=== PATIENT | female | born 1960 | race Caucasian/White ===

== ENCOUNTER 2018-04-25 21:10 | Inpatient (IN) | payer OTHER ==
[2018-04-25 22:10] LABS: Urine Blood 2+ (NEG); Urine Glucose NEGATIVE (NEG); Urine Protein 3+ (NEG); Urine Specific Gravity >1.030 (1.005-1.030); Urine pH 5.5 (5.0-7.0)
[2018-04-25 22:23] LABS: Arterial Blood Carboxyhemoglob 1.5 % (0-1.5); Blood Gas Oxyhemoglobin 91.4 % (94-97); Blood O2 Saturation 94.2 % (92-98.5)
[2018-04-25 22:23] LABS: Absolute Lymphocytes (CBC) 0.6 K/uL (0.7-4.9); Absolute Monocytes 0.8 K/uL (0.1-1.3); Absolute Neutrophil 9.4 K/uL (1.8-8.0); Basophils % 0.4 % (0-1.3); Hematocrit 48.3 % (36.0-45.0); Lymphocytes % 5.9 % (15.3-44.8); MCH 35.9 pg (27.0-35.0); MCV 108.5 fL (80-100); MPV 7.4 fL (7.6-11.3); Monocytes % 7.6 % (3.3-12.3); RBC Red Blood Cell Count 4.45 M/uL (3.86-4.86)
[2018-04-25] MEDS ORDERED: VANCOMYCIN 1 GM/VIAL ONE (22:24)
[2018-04-25] MEDS ORDERED: NA CHLORIDE 0.9% 250 ML ONE (22:24)
[2018-04-25] MEDS ORDERED: NA CHLORIDE 0.9% 2,000 ML ONE (22:24)
[2018-04-25 22:40] LABS: Protime INR 0.99
[2018-04-25 23:20] LABS: ALT/SGPT 280 U/L (12-78); Albumin 4.7 g/dL (3.4-5.0); Alkaline Phosphatase 155 U/L (45-117); BUN Blood Urea Nitrogen 13 mg/dL (7-18); Bilirubin Direct 1.3 mg/dL (0-0.2); Bilirubin Total 1.8 mg/dL (0.2-1.0); CKMB Creatine Kinase MB 2.5 ng/mL (0.3-3.6); Creatine Phosphokinase 46 U/L (26-192); Glucose Level 94 mg/dL (74-106); Lipase 29033 U/L (73-393); Potassium 3.4 mmol/L (3.5-5.1); Protein, Total 9.8 g/dL (6.4-8.2); Sodium Level 133 mmol/L (136-145); Troponin (Emerg Dept Use Only) < 0.02 ng/mL (0.0-0.045)
[2018-04-25 23:24] LABS: AST/SGOT 574 U/L (15-37); Bicarbonate 7 mmol/L (21-32)
[2018-04-25 23:35] LABS: Blood Morphology Comment NOTED (NOT SEEN); Macrocytosis 1+; Platelet Estimate ADEQ; Urine White Blood Cell Casts OK
[2018-04-25 23:54] LABS: Amylase Level 1699 U/L (25-115)
[2018-04-26] MEDS ORDERED: NOREPINEPHRINE 4mg/D5W 250mL 4 MG/250 ML BAG IV ONE (00:45)
[2018-04-26] MEDS ORDERED: NA CHLORIDE 0.9% 1,000 ML ONE (00:52)
[2018-04-26] MEDS ORDERED: METRONIDAZOLE 500mg IVPB 500 MG/100 ML BAG IV ONE (00:52)
--- NOTE | 2018-04-26 01:16 | ER ---
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 pt 99% on room air for ak1 EMS. EMS states pt with multiple abd sx and abd hernias. Transition of care: patient was not received from another setting of care. Onset of symptoms was April 24, 2018. Risk Assessment: Do you want to hurt yourself or someone else? Patient reports no desire to harm self or others. Care prior to arrival: None. 21:15 Method Of Arrival: EMS: [facility] ak1 21:15 Acuity: DEV 3 ak1 21:34 Initial Sepsis Screen: Does the patient meet any 2 criteria? HR > 90 bpm. Does the tl2 patient have a suspected source of infection? No. Patient's initial sepsis screen is negative. 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 - Social history:: Smoking status: Patient uses tobacco products, smokes one-half pack cigarettes per day. - Ebola Screening: : No symptoms or risks identified at this time. Screenin:30 Abuse screen: Denies threats or abuse. Nutritional screening: No deficits noted. tl2 Tuberculosis screening: No symptoms or risk factors identified. Fall Risk Gait- Weak (10 pts.). Assessment: 21:30 General: Appears uncomfortable, Behavior is drowsy, listless. Pain: Complains of pain tl2 in abdomen Pain does not radiate. Neuro: Level of Consciousness is awake, obeys commands, listless, Oriented to person, place, time, situation. Cardiovascular: Denies chest pain. Respiratory: Airway is patent Respiratory effort is even, labored, Respiratory pattern is symmetrical. GI: Abdomen is distended, Abd is soft Reports nausea, vomiting, Patient currently denies diarrhea. : No signs and/or symptoms were reported regarding the genitourinary system. Derm: Skin is clammy, Skin is normal. 22:32 Reassessment: Charge nurse at bedside to attempt another IV. first IV infiltrated. tl2 23:29 Reassessment: Fluids and Vanc infusing, family at bedside. Pt sitting up in bed. No tl2 questions or concerns at this time. 04/26 00:01 Reassessment: MD notified of abnormal labs. Pt out to CT. tl2 00:25 Reassessment: Received patient from MAUREEN Penn as a case of low blood pressure, bp abdominal and pelvic pain, acute pancreatitis and acidosis. With intravenous cannula gauge 22 at the right hand with ongoing boluses of NS and vancomycin 1.5 grams. Another intravenous cannula at the left ACV saline locked and swollen after patient came back from CT scan department as endorsed. Patient weak looking. 00:40 Reassessment: Central line 3 lumen catheter inserted aseptically at the right femoral cc3 by Dr. Jacinto. 01:00 Reassessment: Indwelling foey's catheter spanish 16 inserted aseptically with very cc3 scanty dark yellow urine output noted. 02:35 Reassessment: Patient and/or family updated on plan of care and expected duration. Pain lp1 level reassessed. Patient is alert, oriented x 3, equal unlabored respirations, skin warm/dry/pink. Patient for admission to ICU room 6, handed over the report to MAUREEN Goodman for continuity of care and management. Vital Signs: 04/25 21:19 BP 137 / 87; Pulse 123; Resp 22; Temp 98.9(O); Pulse Ox 97% on R/A; Weight 90.72 kg ak1 (R); Height 5 ft. 3 in. (160.02 cm) (R); Pain 9/10; 22:32 BP 122 / 91; Pulse 117; Resp 28; Pulse Ox 95% on R/A; tl2 23:28 BP 117 / 98; Pulse 117; Resp 26; Pulse Ox 96% on 2 lpm NC; tl2 04/26 00:02 BP 134 / 62; Pulse 111; Resp 30; Pulse Ox 99% on 2 lpm NC; tl2 00:45 BP 91 / 37; Pulse 112; Resp 27; Pulse Ox 96% on 2 lpm NC; cc3 01:00 BP 97 / 50; Pulse 110; Resp 26; Pulse Ox 96% on 2 lpm NC; cc3 01:45 BP 100 / 65; Pulse 111; Resp 24; Pulse Ox 95% on 2 lpm NC; cc3 02:10 BP 126 / 85; Pulse 114; Resp 24; Temp 99.8; Pulse Ox 96% on 2 lpm NC; cc3 02:30 BP 119 / 66; Pulse 116; Resp 24; Temp 99.8; Pulse Ox 95% on 2 lpm NC; lp1 04/25 21:19 Body Mass Index 35.43 (90.72 kg, 160.02 cm) ak1 Vitals: 04/25 21:30 Cardiac Rhythm Assessment Sinus tach. tl2 ED Course: 21:15 Patient arrived in ED. ak1 21:17 Triage completed. ak1 21:18 Ferdinand Jacinto MD is Attending Physician. kdr 21:19 Arm band placed on Patient placed in an exam room, on a stretcher, on pulse oximetry, ak1 Patient notified of wait time. 21:20 Patient has correct armband on for positive identification. Bed in low position. Call ak1 light in reach. Side rails up X 1. Pulse ox on. NIBP on. 22:12 Inserted saline lock: 20 gauge in right antecubital area, using aseptic technique. bb Blood collected. 22:13 Initial lab(s) drawn, by me, sent to lab. First set of blood cultures drawn by me. bb 22:14 Isamar Pacheco RN is Primary Nurse. tl2 22:33 IV discontinued, IV infiltrated. tl2 22:38 Radiology exam delayed due to IV insertion attempt and/or patient not having bb2 appropriate IV at this time. 22:40 Inserted saline lock: 20 gauge in left antecubital area, using aseptic technique. tl2 placed by MAUREEN Chandler. Inserted saline lock: 22 gauge in left hand, using aseptic technique. 23:24 Notified ED physician of a critical lab result(s). lactate 5.4, CO2 7, AST 574 Dr ania Jacinto notified. 23:44 X-ray completed. Portable x-ray completed in exam room. Patient tolerated procedure kw well. 23:45 Chest Single View XRAY In Process Unspecified. EDMS 23:54 Notified ED physician of a critical lab result(s). Amylase 1699. lp1 04/26 00:22 CT completed. Pt tolerated procedure poorly. Patient moved to CT via stretcher. Patient eh moved back from CT. 00:22 Note: LEFT AC 20G IV INFILTRATED. Note: PLACED HOT COMPRESS AROUND ARM. Notified ED eh Physician INFORMED DR JACINTO. 00:26 Abdomen In Process Unspecified. EDMS 01:00 Assisted provider with central line placement. Set up central line tray. Triple lumen bp line placed in right femoral. Line placed by Ferdinand Jacinto MD Dressed with Tegaderm, Patient tolerated well. Before procedure, did Practitioner(s) obtain informed consent? No. Patient \T\ family education about procedure, CLABSI prevention and S/S of infection? Yes. Time-out/Briefing performed prior to start of procedure? Yes. Was handwashing/sanitizing done immediately prior to procedure? Yes. Was patient positioned to in a way to prevent air embolism? Yes. Was procedure site sterilized? Yes, with chlorhexidine. Was the site allowed to dry? Yes. Was local anesthetic and/or sedation utilized? Yes. During the procedure, did the Practitioner(s) maintain a sterile field? Yes. Were unused ports clamped during insertion? Yes. Was a 2nd qualified MD obtained after 3 unsuccessful insertion attempts? N/A. Was blood aspirated from each lumen? Yes. After the procedure, did the Practitioner(s) clean the site and apply a sterile dressing? Yes. 01:15 Genesis Browning MD is Hospitalizing Provider. kdr 01:15 Paulson cath inserted, using sterile technique, 16 Fr., by ED staff, balloon inflated, to bp gravity drainage, urine specimen collected. returned riri urine. Patient tolerated well. Administered Medications: 04/25 22:16 Drug: vancoMYCIN 1.5 grams Route: IVPB; Rate: calculated rate; Site: right antecubital; tl2 23:30 Follow up: IV Status: Completed infusion; IV Intake: 250ml bp 22:46 Drug: NS 0.9% (30 ml/kg) 30 ml/kg Route: IV; Rate: bolus; Site: left antecubital; tl2 04/26 00:45 Drug: NS 0.9% 1000 ml Route: IV; Rate: 150 ml/hr; Site: Other; bp 02:53 Follow up: IV Status: Infusion continued upon admission bp 01:00 Drug: Flagyl 500 mg Volume: 100 ml; Route: IVPB; Rate: 200 ml/hr; Infused Over: 30 bb mins; Site: right femoral; 02:04 Follow up: IV Status: Completed infusion; IV Intake: 100ml bp 01:15 Drug: Zofran 4 mg Route: IVP; Site: right femoral; bb 02:04 Follow up: Response: No adverse reaction bp 01:30 Drug: Levophed (4 mg/250 mL D5W 4 mcg/min Route: IV; Rate: calculated rate; Site: Other;bp 02:52 Follow up: IV Status: Infusion continued upon admission bp 01:36 Drug: Dexamethasone 10 mg Route: IVP; Site: Other; bp 02:03 Follow up: Response: No adverse reaction bp 02:00 Drug: Sodium Bicarbonate 1 amp Route: IVP; Site: Other; bp 02:06 Follow up: Response: No adverse reaction bp Point of Care Testing: Blood Glucose: 04/25 22:14 Blood Glucose: 81 mg/dL; tl2 Ranges: Intake: 23:30 IV: 250ml; Total: 250ml. bp 14 02:04 IV: 100ml; Total: 350ml. bp Outcome: 01:15 Decision to Hospitalize by Provider. kdr 02:35 Admitted to ICU accompanied by nurse, family with patient, via stretcher, room 6, with lp1 oxygen, on monitor, with chart, Report called to MAUREEN Goodman 02:35 Condition: stable 02:35 Instructed on the need for admit. 03:24 Patient left the ED. lp1 Signatures: Dispatcher [employer] EDMS Ferdinand Jacinto MD MD kdr Hagler, Ervin eh Ballard, Brenda, RN RN bb Luann Shelton Laura, RN RN lp1 Riri Hernandez RN RN ak1 Isamar Pacheco RN RN tl2 French Amor RN Luana Hardy bb2 Demetria Diaz cc3 Corrections: (The following items were deleted from the chart) 02:53 02:51 Reassessment: Patient and/or family updated on plan of care and expected lp1 duration. Pain level reassessed. Patient is alert, oriented x 3, equal unlabored respirations, skin warm/dry/pink. Patient for admission to ICU room 6, handed over the report to MAUREEN Goodman for continuity of care and management. lp1
--- NOTE | 2018-04-26 01:17 | EDPHYS ---
Physician Documentation [facility] Name: Madelaine Leonard Age: 57 yrs Sex: Female : 1960 Arrival Date: 04/25/2018 Time: 21:15 Bed 3 Private MD: ED Physician Ferdinand Valladares HPI: 04/25 22:11 This 57 yrs old Female presents to ER via EMS with complaints of kdr Nausea/Vomiting, Shortness Of Breath. 22:11 The patient presents to the emergency department with nausea, that is mild, vomiting, kdr that is intermittent, abdominal pain, of the abdomen diffusely, described as achy, crampy, steady, vague,\E\. Onset: The symptoms/episode began/occurred gradually, 2 day(s) ago. Possible causes: unknown, flare up of bowel problem. The symptoms are aggravated by movement, pressure, The symptoms are alleviated by nothing. Associated signs and symptoms: Pertinent positives: abdominal pain, nausea, vomiting, Pertinent negatives: diarrhea, dysuria, fever, flatulence, GI bleeding, hematuria, vaginal discharge. Severity of symptoms: At their worst the symptoms were moderate severe just prior to arrival, in the emergency department the symptoms are unchanged. The patient has not experienced similar symptoms in the past. The patient has not recently seen a physician. 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 - Social history:: Smoking status: Patient uses tobacco products, smokes one-half pack cigarettes per day. - Ebola Screening: : No symptoms or risks identified at this time. ROS: 22:11 Constitutional: Negative for fever, chills, and weight loss, Eyes: Negative for injury, kdr pain, redness, and discharge, Neck: Negative for injury, pain, and swelling, Cardiovascular: Negative for chest pain, palpitations, and edema, Back: Negative for injury and pain, : Negative for injury, bleeding, discharge, and swelling, MS/Extremity: Negative for injury and deformity, Skin: Negative for injury, rash, and discoloration, Neuro: Negative for headache, weakness, numbness, tingling, and seizure activity. Psych: Negative for depression, anxiety, suicide ideation, homicidal ideation, and hallucinations, Allergy/Immunology: Negative for hives, rash, and allergies, Endocrine: Negative for neck swelling, polydipsia, polyuria, polyphagia, and marked weight changes, Hematologic/Lymphatic: Negative for swollen nodes, abnormal bleeding, and unusual bruising. 22:11 Respiratory: Positive for dyspnea on exertion, shortness of breath, Negative for cough, hemoptysis, orthopnea, sputum production, wheezing. 22:11 Abdomen/GI: Positive for nausea and vomiting, nausea, abdominal cramps, abdominal distension, Negative for dysphagia, hematemesis, black/tarry stool, rectal pain, rectal bleeding, flatulence. Exam: 22:11 Constitutional: This is a well developed, well nourished patient who is awake, alert, kdr and in mild to moderate distress. Head/Face: Normocephalic, atraumatic. Eyes: Pupils equal round and reactive to light, extra-ocular motions intact. Lids and lashes normal. Conjunctiva and sclera are non-icteric and not injected. Cornea within normal limits. Periorbital areas with no swelling, redness, or edema. Neck: Trachea midline, no thyromegaly or masses palpated, and no cervical lymphadenopathy. Supple, full range of motion without nuchal rigidity, or vertebral point tenderness. No Meningismus. Chest/axilla: Normal chest wall appearance and motion. Nontender with no deformity. No lesions are appreciated. Cardiovascular: Regular rate and rhythm with a normal S1 and S2. No gallops, murmurs, or rubs. Normal PMI, no JVD. No pulse deficits. Respiratory: Lungs have equal breath sounds bilaterally, clear to auscultation and percussion. No rales, rhonchi or wheezes noted. No increased work of breathing, no retractions or nasal flaring. Back: No spinal tenderness. No costovertebral tenderness. Full range of motion. Skin: Warm, dry with normal turgor. Normal color with no rashes, no lesions, and no evidence of cellulitis. MS/ Extremity: Pulses equal, no cyanosis. Neurovascular intact. Full, normal range of motion. Neuro: Awake somnolent GCS 15, oriented to person, place, time, and situation. Cranial nerves II-XII grossly intact. Motor strength 5/5 in all extremities. Sensory grossly intact. Psych: Awake, alert, with orientation to person, place and time. Behavior, mood, and affect are within normal limits. 22:11 Abdomen/GI: Inspection: distension, obese scar(s), are noted in the umbilical area, Bowel sounds: diminished, absent, in all quadrants, Palpation: moderate abdominal tenderness, in all quadrants, voluntary guarding, is elicited in all quadrants. Vital Signs: 21:19 BP 137 / 87; Pulse 123; Resp 22; Temp 98.9(O); Pulse Ox 97% on R/A; Weight 90.72 kg ak1 (R); Height 5 ft. 3 in. (160.02 cm) (R); Pain 9/10; 22:32 BP 122 / 91; Pulse 117; Resp 28; Pulse Ox 95% on R/A; tl2 23:28 BP 117 / 98; Pulse 117; Resp 26; Pulse Ox 96% on 2 lpm NC; tl2 0914 00:02 BP 134 / 62; Pulse 111; Resp 30; Pulse Ox 99% on 2 lpm NC; tl2 00:45 BP 91 / 37; Pulse 112; Resp 27; Pulse Ox 96% on 2 lpm NC; cc3 01:00 BP 97 / 50; Pulse 110; Resp 26; Pulse Ox 96% on 2 lpm NC; cc3 01:45 BP 100 / 65; Pulse 111; Resp 24; Pulse Ox 95% on 2 lpm NC; cc3 02:10 BP 126 / 85; Pulse 114; Resp 24; Temp 99.8; Pulse Ox 96% on 2 lpm NC; cc3 02:30 BP 119 / 66; Pulse 116; Resp 24; Temp 99.8; Pulse Ox 95% on 2 lpm NC; lp1 04/25 21:19 Body Mass Index 35.43 (90.72 kg, 160.02 cm) ak1 MDM: 01:15 Patient medically screened. kdr 01:16 Data reviewed: vital signs, nurses notes, lab test result(s). Counseling: I had a kdr detailed discussion with the patient and/or guardian regarding: the historical points, exam findings, and any diagnostic results supporting the discharge/admit diagnosis, lab results, radiology results, the need for further work-up and treatment in the hospital. 04/25 21:39 Order name: Amylase, Serum; Complete Time: 00:22 [facility] 04/25 21:39 Order name: Basic Metabolic Panel; Complete Time: 00:22 [facility] 04/25 21:39 Order name: Blood Culture Adult (2) [facility] 04/25 21:39 Order name: C-Reactive Protein; Complete Time: 00:22 [facility] 04/25 21:39 Order name: CBC with Diff; Complete Time: 00:22 [facility] 04/25 21:39 Order name: Ckmb; Complete Time: 00:22 [facility] 04/25 21:39 Order name: CPK; Complete Time: 00:22 [facility] 04/25 21:39 Order name: Lactate; Complete Time: 23:33 [facility] 04/25 21:39 Order name: LFT's; Complete Time: 00:22 [facility] 04/25 21:39 Order name: Lipase; Complete Time: 00:22 [facility] 04/25 21:39 Order name: Procalcitonin; Complete Time: 23:21 [facility] 04/25 21:39 Order name: Protime (+inr); Complete Time: 23:21 [facility] 04/25 21:39 Order name: Ptt, Activated; Complete Time: 23:21 [facility] 04/25 21:39 Order name: Sed Rate; Complete Time: 00:22 [facility] 04/25 21:39 Order name: Troponin (emerg Dept Use Only); Complete Time: 00:22 [facility] 04/25 21:39 Order name: Chest Single View XRAY [facility] 04/25 21:39 Order name: AMMONIA; Complete Time: 22:44 [facility] 04/25 21:39 Order name: ABG; Complete Time: 22:52 [facility] 04/25 21:48 Order name: Urine Dipstick--Ancillary (enter results); Complete Time: 22:11 mw2 04/25 23:35 Order name: CBC Smear Scan; Complete Time: 00:22 EDMS 04/26 00:26 Order name: Abdomen EDMS 04/26 00:54 Order name: Hemoglobin 04/26 00:54 Order name: Hematocrit 04/26 01:07 Order name: ABG [facility] 04/26 01:41 Order name: Lactate Sepsis 2 HR Follow-up EDNY 04/26 02:41 Order name: Glucose, Ancillary Testing EDNY 04/25 21:39 Order name: Accucheck; Complete Time: 22:15 kdr 04/25 21:39 Order name: Cardiac monitoring; Complete Time: 22:15 kdr 04/25 21:39 Order name: EKG - Nurse/Tech; Complete Time: 22:15 kdr 04/25 21:39 Order name: IV Saline Lock - Large Bore; Complete Time: 22:15 kdr 04/25 21:39 Order name: Labs collected and sent; Complete Time: 22:15 kdr 04/25 21:39 Order name: O2 Per Protocol; Complete Time: 22:15 kdr 04/25 21:39 Order name: O2 Sat Monitoring; Complete Time: 22:15 kdr 04/25 21:39 Order name: Urine Dipstick-Ancillary (obtain specimen); Complete Time: 22:15 kdr Administered Medications: 04/25 22:16 Drug: vancoMYCIN 1.5 grams Route: IVPB; Rate: calculated rate; Site: right antecubital; tl2 23:30 Follow up: IV Status: Completed infusion; IV Intake: 250ml bp 22:46 Drug: NS 0.9% (30 ml/kg) 30 ml/kg Route: IV; Rate: bolus; Site: left antecubital; tl2 04/26 00:45 Drug: NS 0.9% 1000 ml Route: IV; Rate: 150 ml/hr; Site: Other; bp 02:53 Follow up: IV Status: Infusion continued upon admission bp 01:00 Drug: Flagyl 500 mg Volume: 100 ml; Route: IVPB; Rate: 200 ml/hr; Infused Over: 30 bb mins; Site: right femoral; 02:04 Follow up: IV Status: Completed infusion; IV Intake: 100ml bp 01:15 Drug: Zofran 4 mg Route: IVP; Site: right femoral; bb 02:04 Follow up: Response: No adverse reaction bp 01:30 Drug: Levophed (4 mg/250 mL D5W 4 mcg/min Route: IV; Rate: calculated rate; Site: Other;bp 02:52 Follow up: IV Status: Infusion continued upon admission bp 01:36 Drug: Dexamethasone 10 mg Route: IVP; Site: Other; bp 02:03 Follow up: Response: No adverse reaction bp 02:00 Drug: Sodium Bicarbonate 1 amp Route: IVP; Site: Other; bp 02:06 Follow up: Response: No adverse reaction bp Point of Care Testing: Blood Glucose: 04/25 22:14 Blood Glucose: 81 mg/dL; tl2 Ranges: Critical Glucose Levels:Adult <50 mg/dl or >400 mg/dl <40 mg/dl or >180 mg/dl Disposition: 04/26/18 01:15 Hospitalization ordered by Genesis Browning for Inpatient Admission. Preliminary diagnosis are Abdominal and pelvic pain, Acute pancreatitis, Acidosis. - Bed requested for Intensive Care Unit. - Status is Inpatient Admission. lp1 - Condition is Serious. - Problem is new. - Symptoms have improved. UTI on Admission? No Critical care time excluding procedures: 04/26 01:16 Critical care time: Bedside Care: 45 minutes, Consultation: 15 minutes. Total time: 60 kdr minutes Signatures: Dispatcher [employer] EDMS Rhianna Leo RN RN Ferdinand Smalls MD MD kdr Ballard, Brenda, RN RN bb Lisa Ortiz RN RN lp1 Riri Hernandez RN RN ak1 Isamar Pacheco, RN RN tl2 French Amor RN RN bp Corrections: (The following items were deleted from the chart) 04/25 22:18 22:11 Constitutional: This is a well developed, well nourished patient who is awake, kdr alert, and in mild to moderate distress. Head/Face: Normocephalic, atraumatic. Eyes: Pupils equal round and reactive to light, extra-ocular motions intact. Lids and lashes normal. Conjunctiva and sclera are non-icteric and not injected. Cornea within normal limits. Periorbital areas with no swelling, redness, or edema. Neck: Trachea midline, no thyromegaly or masses palpated, and no cervical lymphadenopathy. Supple, full range of motion without nuchal rigidity, or vertebral point tenderness. No Meningismus. Chest/axilla: Normal chest wall appearance and motion. Nontender with no deformity. No lesions are appreciated. Cardiovascular: Regular rate and rhythm with a normal S1 and S2. No gallops, murmurs, or rubs. Normal PMI, no JVD. No pulse deficits. Respiratory: Lungs have equal breath sounds bilaterally, clear to auscultation and percussion. No rales, rhonchi or wheezes noted. No increased work of breathing, no retractions or nasal flaring. Back: No spinal tenderness. No costovertebral tenderness. Full range of motion. Skin: Warm, dry with normal turgor. Normal color with no rashes, no lesions, and no evidence of cellulitis. MS/ Extremity: Pulses equal, no cyanosis. Neurovascular intact. Full, normal range of motion. Neuro: Awake and alert, GCS 15, oriented to person, place, time, and situation. Cranial nerves II-XII grossly intact. Motor strength 5/5 in all extremities. Sensory grossly intact. Cerebellar exam normal. Normal gait. Psych: Awake, alert, with orientation to person, place and time. Behavior, mood, and affect are within normal limits. kdr 04/26 00:26 09/ 23:34 Abdomen Pelvis W Con+CT.RAD.BRZ ordered. EDNY EDNY 04/26 01:15 00:55 LACTATE+C.LAB.BRZ ordered. [facility] EDNY 01:21 01:15 Hospitalization Ordered by Genesis Browning MD for Inpatient Admission. Preliminary mw diagnosis is Abdominal and pelvic pain; Acute pancreatitis; Acidosis. Bed requested for Intensive Care Unit. Status is Inpatient Admission. Condition is Serious. Problem is new. Symptoms have improved. UTI on Admission? No. kdr 03:24 01:21 04/26/2018 01:15 Hospitalization Ordered by Genesis Browning MD for Inpatient lp1 Admission. Preliminary diagnosis is Abdominal and pelvic pain; Acute pancreatitis; Acidosis. Bed requested for Intensive Care Unit. Status is Inpatient Admission. Condition is Serious. Problem is new. Symptoms have improved. UTI on Admission? No. mw
[2018-04-26 01:18] LABS: Hematocrit 40.9 % (36.0-45.0)
[2018-04-26] MEDS ORDERED: ONDANSETRON 4 MG/2 ML VIAL ONE (01:19)
[2018-04-26 01:27] LABS: Arterial Blood Carboxyhemoglob 1.4 % (0-1.5); Blood Gas Oxyhemoglobin 92.4 % (94-97)
[2018-04-26] MEDS ORDERED: DEXAMETHASONE 4 MG/ML VIAL ONE (01:36)
[2018-04-26] MEDS ORDERED: ONDANSETRON 4 MG/2 ML VIAL IV PRN (01:53)
[2018-04-26] MEDS: Rifaximin 550 MG Tab PO SCH ×2 (01:57→09:00)
[2018-04-26] MEDS ORDERED: SODIUM BICARB 50 MEQ/50ML VIAL ONE (01:59)
[2018-04-26] MEDS ORDERED: FENTANYL CITR 100 MCG/2 ML IV PRN (02:00)
[2018-04-26] MEDS: ALBUTEROL 2.5 MG/3 ML NEB SOL NEB SCH ×3 (02:00→14:00)
[2018-04-26] MEDS: IPRATROPIUM BROM 0.5MG/2.5ML NEB SCH ×3 (02:00→14:00)
[2018-04-26] MEDS ORDERED: NOREPINEPHRINE 4 MG in D5W 250 ML IV PRN (02:00)
[2018-04-26] MEDS ORDERED: D5W 1,000 ML IV ONE (02:52)
[2018-04-26] MEDS: D5W 1,000 ML with NA BICARB 8.4% 150 MEQ IV SCH ×4 (03:23→13:39)
[2018-04-26] MEDS: KCL 20 MEQ/100 mL IVPB 20 MEQ/100 ML BAG IV SCH ×2 (03:24→05:02)
[2018-04-26] MEDS ORDERED: NA CHLORIDE 0.9% 500 ML IV ONE ×2 (04:33→15:49)
--- NOTE | 2018-04-26 05:08 | P.HP ---
Certification for Inpatient Patient admitted to: Inpatient With expected LOS: >2 Midnights Patient will require the following post-hospital care: None Practitioner: I am a practitioner with admitting privileges, knowledge of patient current condition, hospital course, and medical plan of care. Services: Services provided to patient in accordance with Admission requirements found in Title 42 Section 412.3 of the Code of Federal Regulations Patient History Date of Service: 04/26/18 Reason for admission: Respiratory distress/anion gap metabolic acidosis History of Present Illness: Patient is a 57-year-old female who has been at home with intractable nausea and vomiting for the last 48 hr. Patient states that she has been drinking heavily for the last year. She also has severe pain which she takes narcotics to provide relief. She is on morphine and Lortab along with Zanaflex. She takes these daily. She states she started having nausea and vomiting about 48 hr ago. She noticed that the vomiting was coffee-ground emesis. She became more and more short of breath so she came into the emergency room for further evaluation. She has a history of COPD but she does not were oxygen. She denies having any liver problems although her liver enzymes and bilirubin are elevated. Her lipase is also elevated. Unknown etiology as to the cause of for acute pancreatitis. Will get an MRCP in the morning to further evaluate. If there is a stone causing her symptoms she may need to be transferred for further intervention. Allergies Latex, Natural Rubber Allergy (Verified 09/22/14 15:47) Hives/Rash levofloxacin [From Levaquin] Allergy (Verified 09/22/14 15:37) Itching Penicillins Allergy (Verified 09/22/14 15:37) Hives naproxen sodium [From Aleve] Adverse Reaction (Verified 09/22/14 15:37) Nausea/Vomiting Home Medications: Gabapentin [Neurontin*] 800 mg PO QID 09/22/14 Hydrocodone 10/APAP 325 [[place] 10/325] 1 tab PO TID PRN 09/22/14 Albuterol Sulfate [Proair Hfa] 2 puff IH Q6H PRN 04/26/18 Ibuprofen 800 mg PO Q12H PRN 04/26/18 Metaxalone 800 mg PO Q6H 18 Morphine Sulfate [Morphabond ER] 60 mg PO Q12H 04/26/18 Ondansetron HCl [Zofran] 8 mg PO DAILY 04/26/18 - Past Medical/Surgical History Has patient received pneumonia vaccine in the past: No Diabetic: No -: chronic pain -: COPD -: R upper lobectomy -: multiple hernia surgeries -: multiple abdominal surgeries - Family History Father Medical History: Heart disease, Hypertension Notes: Mother Medical History: Heart disease, Lung disease, Cancer Notes: Brother Medical History: Heart disease, Hypertension, Lung disease Notes: - Social History Smoking Status: Current every day smoker Alcohol use: Yes CD- Drugs: No Caffeine use: No Place of Residence: Home Review of Systems 10-point ROS is otherwise unremarkable Physical Examination - Vital Signs Temperature: 97 F Blood Pressure: 101/63 Pulse: 109 Respirations: 22 Pulse Ox (%): 97 - Physical Exam General: Alert, In no apparent distress, Oriented x3 HEENT: Atraumatic, PERRLA, Mucous membr. moist/pink, EOMI, Sclerae nonicteric Neck: Supple, 2+ carotid pulse no bruit, No LAD, Without JVD or thyroid abnormality Respiratory: Clear to auscultation bilaterally, Normal air movement Cardiovascular: Regular rate/rhythm, Normal S1 S2, No murmurs Gastrointestinal: Normal bowel sounds, Soft and benign, Non-distended, Tenderness Musculoskeletal: No clubbing, No swelling, No tenderness Integumentary: No rashes Neurological: Normal gait, Normal speech, Normal strength at 5/5 x4 extr, Normal tone, Sensation intact, Cranial nerves 3-12 intact, Normal affect Lymphatics: No axilla or inguinal lymphadenopathy - Studies Laboratory Data (last 24 hrs) 04/26/18 00:50: Hgb 13.5 D, Hct 40.9 D 04/25/18 22:05: PT 11.7, INR 0.99, APTT 33.3 04/25/18 22:05: WBC 10.9, Hgb 16.0 H, Hct 48.3 H, Plt Count 362 04/25/18 22:05: Sodium 133 L, Potassium 3.4 L, BUN 13, Creatinine 1.60 H, Glucose 94, Total Bilirubin 1.8 H, AST 574 H*, ALT 280 H, Alkaline Phosphatase 155 H, Amylase 1699 H*, Lipase 05808 H Assessment & Plan - Plan Assessment: 1. Respiratory distress 2. Anion gap metabolic acidosis secondary to lactic acidosis type B etiology 3. Acute pancreatitis 4. Acute hepatitis 5. Alcohol intoxication 6. Hepatic encephalopathy 7. Macrocytosis secondary to B12/folate deficiency from alcohol abuse 8. Acute renal insufficiency 9. History of COPD secondary to tobacco abuse 10. Elevated procalcitonin Plan: 1. Aggressive IV hydration along with bicarb drip; respiratory distress is compensatory because of the metabolic acidosis 2. Monitor H&H closely 3. Once metabolic acidosis improves her respiratory distress should improve as well 4. Hopefully once her liver injury and pancreatic injury stabilizes then the acidosis his stabilizes well 5. Nutritional deficiency with secondary macrocytosis will be corrected 6. Check acute hepatitis profile 7. Repeat ABG 8. Monitor renal function and liver function along with lipase level 9. Nebs and steroids as needed 10. Delirium tremens prevention with Librium once mentation stabilizes 11. Fentanyl for pain as she is hypotensive at this time 12. Rifaximin as her ammonia level is elevated. Will also use lactulose as needed when she is able to tolerate orals more readily. We could give lactulose as a retention enema if needed but were faxed man with a sip water would probably be best at this time 13. GI and DVT prophylaxis Discharge Plan: Home Plan to discharge in: Greater than 2 days - Advance Directives Does patient have a Living Will: No Does patient have a Durable POA for Healthcare: No - Code Status/Comfort Care Code Status Assessed: Yes Code Status: Full Code Critical Care: Yes Time Spent Managing PTS Care (In Minutes): 60
[2018-04-26] MEDS ORDERED: NA CHLORIDE 0.9% 500 ML ONE (07:33)
[2018-04-26] MEDS ORDERED: CYANOCOBALAMIN 1000MCG/ML INJ IM SCH (09:00)
[2018-04-26] MEDS ORDERED: THIAMINE 200 MG/2 ML INJ IVP SCH (09:00)
[2018-04-26] MEDS ORDERED: FOLIC ACID 5 MG/ML VIAL IVP SCH (09:00)
[2018-04-26 09:57] LABS: Absolute Lymphocytes (CBC) 0.3 K/uL (0.7-4.9); Absolute Monocytes 0.5 K/uL (0.1-1.3); Absolute Neutrophil 5.4 K/uL (1.8-8.0); Basophils % 0.3 % (0-1.3); Eosinophils % 0.4 % (0-4.4); Hematocrit 33.2 % (36.0-45.0); Lymphocytes % 4.3 % (15.3-44.8); MCH 35.6 pg (27.0-35.0); MCV 102.3 fL (80-100); MPV 7.3 fL (7.6-11.3); Monocytes % 7.4 % (3.3-12.3); RBC Red Blood Cell Count 3.24 M/uL (3.86-4.86)
[2018-04-26] MEDS ORDERED: FOLIC ACID 1 MG in NA CHLORIDE 0.9% 50 ML IV SCH (10:00)
--- NOTE | 2018-04-26 10:44 | RAD REPORT ---
EXAM DESCRIPTION: CT - Abdomen Pelvis Wo Contrast - 04/26/2018 4:46 am CLINICAL HISTORY: Abdominal pain. A preliminary report was provided at the time of the study and reviewed prior to final report. COMPARISON: CT study August 2014 TECHNIQUE: Axial [address] imaging of the abdomen and pelvis was performed without IV contrast. No IV contrast was given because of allergy, abnormal renal function, patient refusal or physician re quest. No oral contrast administered. All CT scans are performed using dose optimization technique as appropriate and may include automated exposure control or mA/KV adjustment according to patient size. FINDINGS: No suspicious findings in the lung bases. No pericardial thickening or effusion. Liver shows a very pronounced fatty infiltration pattern. This represents a substantial change from 2 015. No focal liver lesions are identified. No splenomegaly or focal splenic finding. There is an ill-defined area of decreased density near the head uncinate junction of the pancreas. Si milar finding was noted in 2014. Interval growth is not suspected. There is a trace amount of ill-def ined stranding near the head of the pancreas. Acute pancreatitis is possible if there are matching cl inical or laboratory findings. This is a minimal finding. This stranding is also near the pylorus duo denal bulb junction addressed in subsequent detail. No gallbladder dilatation. No gallstones confirmed. Stone can be occult. No pericholecystic fluid or wall thickening seen. Biliary tree is not dilated. No hydronephrosis or suspicious renal mass. No medial upper pole left kidney a 16 millimeter low-dens ity mass is present. This is enlarged slightly from 2015. Attenuation value is under 10 [place] un its and benign cyst is the single most likely etiology. No significant adrenal finding. Isodense joselyn l masses and pyelonephritis cannot be excluded in the absence of IV contrast. The urinary bladder is without significant finding. Contracted urinary bladder shows no suspicious findings. Fluid is present in the distal esophagus. No distal esophageal wall thickening. This is likely reflux . A large amount of fluid is retained within the stomach causing dilation. In the fundus and body the re is no wall thickening or mass. There is some thickening in the antrum and duodenal bulb region. Th is is potentially a peristalsis artifact. A gastroenteritis or even possible gastric outlet from mass or gastritis would be possible if there are matching clinical symptoms. Distal to the bulb, the duodenum is not dilated. There is some mild stranding in the adjacent fat. A duodenitis or even duodenal stricture would be possible. From the ligament of Treitz to the terminal ileum there is no other small bowel dilatation or acute small bowel finding. Mid small bowel anastomo tic site shows no acute finding. Colon is decompressed. There is mild to moderate sigmoid diverticulo sis without diverticulitis. No free air, free fluid or inflammatory stranding. No mass or bulky lymphadenopathy. Clips are prese nt from bilateral inguinal hernia repair. Postsurgical changes are noted to the ventral wall. Graft o r mesh material is seen superiorly at the level of the left lobe liver. More inferiorly there are sev eral small focal defects in addition to a a seconds Cash or postsurgical site. Just superior to the u mbilicus on the right-side focal hernia defect contains a knuckle of small bowel loop. No wall thicke kate or edema. An acute process at this site is not suspected. No suspicious bony findings. Gastric, pancreatic and duodenal findings very from the preliminary report. The discrepancy was telep honed to Radha in the ICU 10:20 a.m. with a request to pass on the final report to the referring tomi arnett. IMPRESSION: Retained fluid dilates the stomach and there is slight thickening and nodularity of the gastric antrum and duodenal bulb. Gastritis is certainly possible. The patient may have partial gastric outlet obstruction from gastrit is/duodenitis or even possibly a small mass near the pylorus. There is stranding adjacent to the third and fourth portions of the duodenum which could indicate jayant or duodenitis and scarring. Trace amount of stranding near the head uncinate process junction. This is a minimal finding. A minim al pancreatitis is possible. Correlation can be made with lab findings. The stranding could be potent ially be part of the antrum duodenal bulb process. Low-density area in the pancreatic head- uncinate junction has not change from 2015. Very pronounced fatty infiltration of the liver new from 2015. Several very small ventral hernia defects are seen along with prior ventral hernia repair procedures. In the midline abdomen right-side just above the umbilicus a loop of small bowel extends through a d efect. No wall thickening, stranding or other acute component at this site. Full assessment is limited is the absence of IV contrast.
[2018-04-26 10:48] LABS: Protime INR 1.02
[2018-04-26] MEDS ORDERED: MORPHINE 4 MG/ML SYR IV PRN (10:48)
[2018-04-26] MEDS ORDERED: PIPER/TAZO/NS 2.25gm 2.25 GM/50 ML BAG IVPB SCH (11:00)
--- NOTE | 2018-04-26 11:04 | RAD REPORT ---
EXAM DESCRIPTION: RAD - Chest Single View - 04/25/2018 11:45 pm CLINICAL HISTORY: Abdominal pain, abdominal distention, shortness of breath COMPARISON: June 2011 TECHNIQUE: AP portable chest image was obtained 2223 hours . FINDINGS: Lung volumes are slightly decreased compared to 2010. Lung markings are similar. No acute lung parenchymal process. Heart and vasculature are normal. No measurable pleural effusion and no pne umothorax. No gross bony abnormality seen. No acute aortic findings suspected. IMPRESSION: No acute cardiopulmonary process. No suspicious change from comparison.
[2018-04-26 11:14] LABS: Arterial Blood Carboxyhemoglob 2.1 % (0-1.5); Blood Gas Oxyhemoglobin 95.1 % (94-97)
[2018-04-26] MEDS ORDERED: Meropenem 500 MG/100 ML BAG IV SCH ×2 (11:30→21:00)
[2018-04-26] MEDS ORDERED: Meropenem 500 MG VIAL IV SCH (12:00)
[2018-04-26 12:06] LABS: ALT/SGPT 289 U/L (12-78); Alkaline Phosphatase 103 U/L (45-117); BUN Blood Urea Nitrogen 29 mg/dL (7-18); Bicarbonate 20 mmol/L (21-32); Bilirubin Total 3.9 mg/dL (0.2-1.0); Creatine Phosphokinase 648 U/L (26-192); Folic Acid, (Folate) > 20.0 ng/mL (3.1-17.5); Glucose Level 229 mg/dL (74-106); HDL Cholesterol 20 mg/dL (40-60); LDL Cholesterol, Calculated ND (<130); Lipase 27471 U/L (73-393); Magnesium 1.5 mg/dL (1.8-2.4); Phosphorus 0.8 mg/dL (2.5-4.9); Potassium 4.6 mmol/L (3.5-5.1); Protein, Total 5.6 g/dL (6.4-8.2); Sodium Level 133 mmol/L (136-145); Thyroid Stimulating Hormone 0.631 uIU/mL (0.360-3.740); Troponin I 0.07 ng/mL (0.0-0.045)
[2018-04-26 12:09] LABS: AST/SGOT 1009 U/L (15-37)
[2018-04-26] MEDS ORDERED: Magnesium Sulfate 2gm IVPB 2 G/50 ML BAG IV ONE (12:24)
[2018-04-26] MEDS ORDERED: SODIUM CHLORIDE 0.9% 10ML INJ IV PRN (12:27)
[2018-04-26] MEDS ORDERED: SODIUM PHOSPHATE 30 MM in NA CHLORIDE 0.9% 500 ML IV ONE (13:00)
[2018-04-26] MEDS ORDERED: MORPHINE 2 MG/ML SYR IV PRN (13:12)
[2018-04-26] MEDS ORDERED: PANTOPRAZOLE INJ 80 MG in NA CHLORIDE 0.9% 250 ML IV SCH (14:00)
--- NOTE | 2018-04-26 14:31 | RAD REPORT ---
EXAM DESCRIPTION: RAD - Abdomen 1 View (KUB) - 04/26/2018 2:14 pm CLINICAL HISTORY: Nasogastric tube placement COMPARISON: None. FINDINGS: Nasogastric tube is in place curled in the stomach. Tip and side hole are both within the lumen of the stomach. No acute bend or kink.
[2018-04-26] MEDS ORDERED: IPRATROPIUM BROM 0.5MG/2.5ML NEB PRN (14:49)
[2018-04-26] MEDS ORDERED: ALBUTEROL 2.5 MG/3 ML NEB SOL NEB PRN (14:49)
[2018-04-26 15:00] LABS: LDL, Direct 86 mg/dL (100-129)
[2018-04-26] MEDS ORDERED: LORazepam 2 MG/ML VIAL IV PRN (17:40)
--- NOTE | 2018-04-26 19:12 | CON ---
Date of Consultation: 04/26/2018 Brief Hpi: The patient is a 57-year-old female who was at home with intractable nausea and vomiting for 48 hours prior to admission on 04/26/2018. She had heavy drinking over the past year, drinking 3 glasses of whiskey per day, but she would not specify the size of the glass. She had severe pain an d takes narcotics for pain relief due to chronic abdominal pain by her description. These included m orphine and Lortab along with Zanaflex on a daily basis. She started having nausea and vomiting, mike gonzalez brought her to the emergency room when it changed character to a coffee-ground consistency with so me blood streaks. She had some shortness of breath and weakness also. During my examination, she wa s fairly lethargic and difficult to get a good history out of her due to her general lethargy. Past Medical History: COPD, chronic pain. Past Surgical History: Right upper lobectomy, multiple abdominal surgeries, she states approximately 25-27 abdominal surgeries, multiple hernias repaired with mesh, the last 1 at this facility in 2014. Allergies: TO LATEX, LEVAQUIN, PENICILLIN, NAPROSYN. Home Medications: Include Neurontin, Nokomis, ProAir, ibuprofen, metaxalone, morphine, Zofran. Family History: Father had heart disease, hypertension. Mother had heart disease, lung disease, can cer. Brother had heart disease, hypertension, lung disease. Social History: She smokes every day. She drinks alcohol as above. She denies recreational drug us e. Review of Systems: A 10-point review of systems other than HPI, denies. Physical Examination: Vital Signs: At the time of my examination, her BMI is approximately 32.5. Her blood pressure was 8 6/53, her pulse is 108, respiratory rate 16, temperature 98.0. General: She is awake and lethargic, but arousable. Psychiatric: She answers questions appropriately, but continues to fall asleep during my questioning , but she answers questions appropriately. HEENT: She is otherwise normocephalic. Her sclerae are slightly injected and appeared to be discolo red with some slight yellowing. Her nasal turbinates were clear. An NG tube was in place with coffe e ground consistency effluent. Neck: Supple. No JVD. Chest: Normal expansion and excursion. Cardiovascular: She is currently regular rate and rhythm at 96 during my exam. Abdominal: Soft with global tenderness to palpation. No peritoneal signs. It is most tender in the epigastric region. There is no rebound. There is mild voluntary guarding. There are well-healed m ultiple scars over the abdomen. She has multiple ventral abdominal wall hernias. Extremities: No clubbing, cyanosis, or edema. Skin: Warm and dry otherwise. Laboratory Data: Reveals a white blood cell count of 6.2. Hemoglobin is 11.5, down from 13.5 earlie r. Her hematocrit is 33.2. Her platelet count is 167, down from 362 on admission. Her PT 12.0, INR 1.02, PTT is 27.6. Her last blood gas showed a pH of 7.26, pCO2 was 32.7, PO2 was 106. Her bicarb 14.3. Base excess -11, it was -25 on admission. Her oxygen saturation is 98% by this report, d O2 is 28%. Her sodium 133, potassium 4.6, chloride 98, carbon dioxide 20, BUN 9, creatinine is 1.9 up from 1.6 on admission. Her glucose is 229. Lactic acid was 5.4 on admission, now 1.4. Calcium 7.6, phosphorus 0.8, magnesium 1.5. Total bilirubin is 3.9 up from 1.8 on admission. Her AST is 100 9 up from 574 on admission. Her ALT is 289 up from 280. Alkaline phosphatase is 103, CK is 648, tro ponin is 0.07. Triglycerides are 762, cholesterol 214. Her lipase is 27,471 down from 29,033 on adm ission. Her amylase was 1699 on admission. Her procalcitonin is 6.89. Her UA showed 4+ ketones, 2+ blood, 3+ protein, and small acetone was evident in her sample as well. She had a CT scan performed of the abdomen and pelvis, which was officially read as retained fluid, dilated stomach, and there w as slight thickening and nodularity of the gastric antrum and duodenal bulb. Gastritis is certainly possible. The patient may have partial gastric outlet obstruction from gastritis, duodenitis, or pos sibly a small mass near the pylorus. There was stranding adjacent to the third and fourth portion of the duodenum, which could indicate prior duodenitis and scarring. Trace amount of stranding near th e head and uncinate process junction. A minimal pancreatitis is possible. Correlation could be made with lab findings. The stranding could be potentially part of the antrum-duodenal bulb process. Lo w-density area on the pancreatic head-uncinate junction has not changed since 2015. Very profound fa tty infiltration of the liver, new from 2015. Several very small ventral hernia defects also seen al audrey the prior ventral hernia repair procedures. In the midline abdomen, right side just above the um bilicus, a loop of small intestine extends through the defect. No wall thickening, straining, or oth er acute component at the site. Full assessment is limited by the lack of IV contrast. Assessment And Plan: This is a 57-year-old woman who comes in with multiple medical problems includi n.What appears to be an upper gastrointestinal bleed, which does not appear to be causing significan t hemodynamic compromise at this time. However, patient did require resuscitation, pressor support i nitially. Her vital signs have improved significantly and the outflow from the NG tube is minimal at this time of the coffee-ground type emesis even with lavage. 2.Pancreatitis. Pancreatitis could be due to alcohol in this scenario. It seems the most likely ca use given the history. I recommend IV fluid hydration and continue n.p.o. status and serial abdomina l exams for this. She has elevation of her transaminases and this should be monitored closely as wel l. 3.Gastric outlet obstruction. This is possibly due to an ulcer versus thickening in the gastric ant rum/duodenum. I recommend to continue the NG tube decompression, and ultimately she will require end oscopy to better evaluate this area. 4.PPI drip and avoidance of all NSAIDs are crucial. 5.Continue medical management per primary medical team. 6.IV fluid and blood product resuscitation as needed. 7.Recommend GI consultation for possible endoscopy versus future needs with her concomitant medical problems. SHERLY/RAINA Voice ID: [id number] Report ID: [id number]
--- NOTE | 2018-04-26 20:42 | PN ---
Date of Progress Note: 04/26/2018 Subjective: Patient seen and examined. Chart reviewed and case discussed with RN and Dr. Negron. The patient ran off vasopressors. She is also having significant amount of abdominal pain. Review of Systems: Negative except as above. Medications: List reviewed. Physical Examination: Vital Signs: Temperature 98, heart rate 108, blood pressure 86/53, respirations 18, O2 of 95% on aliza m air. General: Awake, alert, oriented x3, ill-appearing, obese female. CV: S1, S2. Regular rate and rhythm. Peripheral pulses present. Respiratory: Moving air well. No wheezing or stridor. Gastrointestinal: Abdomen is distended. Tender to palpation. Hypoactive bowel sounds. Extremities: No clubbing or cyanosis. The patient does have pedal edema. Neurologic: Nonfocal. Laboratory Data: Sodium 133, potassium 4.6, chloride 98, CO2 of 20, BUN 29, creatinine 1.9, glucose 229, lactic acid 1.4, calcium 7.6, phosphorus 3.8, magnesium 1.5, total bilirubin 3.9, AST 1009, ALT 289, alkaline phosphatase 103, CK 648. Troponin 0.07. Albumin 3, triglycerides 742, cholesterol 215 , HDL 20, lipase is 27,471. Vitamin B12 is 732. Folate greater than 20. Procalcitonin 6.89. TSH 0 .63. Cortisol greater than 55. ABG; pH 7.26, pCO2 of 32.7, pO2 of 106, bicarb 14.3, improved from p revious ABG. WBC 6.2, H and H 11.5 and 33.2, platelets 157, neutrophils 87%. Blood cultures are pen ding. KUB shows NG tube in the stomach. Assessment: A 57-year-old female with: 1.Acute respiratory distress, improving on supplemental oxygen. 2.Hypertensive shock. The patient was on pressors, now improving secondary to duodenitis and gastri tis and possible gastric outlet obstruction. 3.Anion gap metabolic acidosis secondary to lactic acidosis, improving. Repeat ABG shows improvemen t in pH. 4.Acute pancreatitis. Lipase improving. We will continue to keep n.p.o. and IV fluid hydration estrella ng with IV pain medications. 5.Gastric outlet obstruction. 6.Acute duodenitis. 7.Acute hepatitis. 8.Alcohol intoxication. 9.Hepatic encephalopathy, improving. 10.Macrocytosis secondary to vitamin B12 and folate deficiency from alcohol abuse. 11.Chronic alcohol dependency. 12.Acute renal insufficiency. 13.History of chronic obstructive pulmonary disease, not oxygen dependent, chronic bronchitis. 14.Nicotine dependence and cigarette smoking. Plan: We will continue with bicarb drip. We will repeat normal saline 0.5 L bolus due to renal insu fficiency and decreased urinary output, oliguria. Surgical consultation. I did speak with Dr. Clark calle, agrees with gastric outlet obstruction. The patient may need ERCP and possible biliary stenting. Her liver enzymes and bilirubin have shot up. However, no GI coverage is available. May need to b e transferred to followup with hepatitis panel. Unable to take rifaximin due to n.p.o. status. We w ill place NG to drain the stomach and IV antibiotics. Overall, poor prognosis. SA/MODL Voice ID: [id number] Report ID: [id number]
[2018-04-26] MEDS ORDERED: Meropenem 500 MG in NA CHLORIDE 0.9% 100 ML IV SCH (21:00)
[2018-04-26] MEDS ORDERED: PANTOPRAZOLE 40 MG INJ IVP SCH (21:00)
--- NOTE | 2018-04-26 21:09 | P.DS ---
Discharge Date: 04/26/18 Disposition: TRANSFER TO [facility] Discharge Condition: CRITICAL Reason for Admission: Respiratory distress/anion gap metabolic acidosis Consultations: Surgery nephrology Brief History of Present Illness: Patient is a 57-year-old female who has been at home with intractable nausea and vomiting for the last 48 hr. Patient states that she has been drinking heavily for the last year. She also has severe pain which she takes narcotics to provide relief. She is on morphine and Lortab along with Zanaflex. She takes these daily. She states she started having nausea and vomiting about 48 hr ago. She noticed that the vomiting was coffee-ground emesis. She became more and more short of breath so she came into the emergency room for further evaluation. She has a history of COPD but she does not were oxygen. She denies having any liver problems although her liver enzymes and bilirubin are elevated. Her lipase is also elevated. Unknown etiology as to the cause of for acute pancreatitis. Will get an MRCP in the morning to further evaluate. If there is a stone causing her symptoms she may need to be transferred for further intervention. Hospital Course: Patient was admitted to the hospital for treatment of acute pancreatitis with anion gap metabolic acidosis. Patient's metabolic acidosis was improving. Patient clinically was much better. However because we did not have GI coverage patient was transferred for higher level of care. Patient was transferred in stable condition. Hopefully patient will be able to get the intervention they need at [facility]. Vital Signs/Physical Exam: Temp Pulse Resp BP Pulse Ox 98.1 F 106 H 16 104/62 99 04/26/18 20:00 04/26/18 20:00 04/26/18 20:00 04/26/18 20:00 04/26/18 20:00 General: Alert, In no apparent distress, Oriented x3 Laboratory Data at Discharge: WBC 6.2 K/uL (4.3-10.9) D 04/26/18 07:10 Hgb 11.5 g/dL (12.0-15.0) L 04/26/18 07:10 Hct 33.2 % (36.0-45.0) L D 04/26/18 07:10 Plt Count 167 K/uL (152-406) D 04/26/18 07:10 PT 12.0 SECONDS (9.5-12.5) 04/26/18 07:10 INR 1.02 04/26/18 07:10 APTT 27.6 SECONDS (24.3-36.9) 04/26/18 07:10 Sodium 133 mmol/L (136-145) L 04/26/18 07:10 Potassium 4.6 mmol/L (3.5-5.1) 04/26/18 07:10 BUN 29 mg/dL (7-18) H 04/26/18 07:10 Creatinine 1.90 mg/dL (0.55-1.3) H 04/26/18 07:10 Glucose 229 mg/dL (74-106) H 04/26/18 07:10 Phosphorus 0.8 mg/dL (2.5-4.9) L* 04/26/18 07:10 Magnesium 1.5 mg/dL (1.8-2.4) L 04/26/18 07:10 Total Bilirubin 3.9 mg/dL (0.2-1.0) H 04/26/18 07:10 AST 1009 U/L (15-37) H* D 04/26/18 07:10 ALT 289 U/L (12-78) H 04/26/18 07:10 Alkaline Phosphatase 103 U/L (45-117) 04/26/18 07:10 Troponin I 0.07 ng/mL (0.0-0.045) H 04/26/18 07:10 Triglycerides 742 mg/dL (<150) H 04/26/18 07:10 Cholesterol 215 mg/dL (<200) H 04/26/18 07:10 LDL Cholesterol Direct 86 mg/dL (100-129) L 04/26/18 07:10 HDL Cholesterol 20 mg/dL (40-60) L 04/26/18 07:10 Cholesterol/HDL Ratio 10.75 04/26/18 07:10 Amylase 1699 U/L (25-115) H* 04/25/18 22:05 Lipase 14874 U/L (73-393) H 04/26/18 07:10 Home Medications: Gabapentin [Neurontin*] 800 mg PO QID 09/22/14 Hydrocodone 10/APAP 325 [[place] 10/325] 1 tab PO TID PRN 09/22/14 Albuterol Sulfate [Proair Hfa] 2 puff IH Q6H PRN 04/26/18 Ibuprofen 800 mg PO Q12H PRN 04/26/18 Metaxalone 800 mg PO Q6H 04/26/18 Morphine Sulfate [Morphabond ER] 60 mg PO Q12H 04/26/18 Ondansetron HCl [Zofran] 8 mg PO DAILY 04/26/18 Patient Discharge Instructions: Transfer to [facility] Diet: NPO Activity: Bedrest Time spent managing pt's care (in minutes): 20
--- NOTE | 2018-04-27 12:16 | EKG ---
Test Date: 2018-04-25 Test Time: 21:34:20 Check Inspector: RAO MEASUREMENT RESULTS: Intervals: Rate: 121 MD: 130 QRSD: 88 QT: 338 QTc: 479 [place]: P: 82 MD: 130 QRS: 43 T: 75 INTERPRETIVE STATEMENTS: Sinus tachycardia Cannot rule out Inferior infarct, age undetermined Abnormal ECG Compared to ECG 09/22/2014 15:45:28 Myocardial infarct finding now present Sinus rhythm no longer present Electronically Signed On 04-27-18 12:08:30 CDT by Tato Mendez
--- NOTE | 2018-04-29 07:44 | ECHO ---
HEIGHT: 5 ft 3 in WEIGHT: 183 lb 6.4 oz DATE OF STUDY: 04/26/[address]: Genesis Browning MD 2-DIMENSIONAL: YES M.MODE: YES DOPPLER: YES COLOR FLOW: YES TDS: PORTABLE: YES DEFINITY: BUBBLE STUDY: DIAGNOSIS: CONGESTIVE HEART FAILURE CARDIAC HISTORY: CATHERIZATION: NO SURGERY: NO PROSTHETIC VALVE: NO PACEMAKER: NO MEASUREMENTS (cm) DIASTOLIC (NORMALS) SYSTOLIC (NORMALS) IVSd 1.0 (0.6-1.2) LA Diam 3.5 (1.9-4.0) LVEF 73% LVIDd 4.3 (3.5-5.7) LVIDs 2.5 (2.0-3.5) %FS 42% LVPWd 1.1 (0.6-1.2) Ao Diam 2.8 (2.0-3.7) 2 DIMENSIONAL ASSESSMENT: RIGHT ATRIUM: NORMAL LEFT ATRIUM: NORMAL RIGHT VENTRICLE: NORMAL LEFT VENTRICLE: NORMAL TRICUSPID VALVE: NORMAL MITRAL VALVE: NORMAL PULMONIC VALVE: NORMAL AORTIC VALVE: NORMAL PERICARDIAL EFFUSION: NONE AORTIC ROOT: NORMAL LEFT VENTRICULAR WALL MOTION: NORMAL DOPPLER/COLOR FLOW: NORMAL COMMENTS: NORMAL 2-DIMENSIONAL ECHOCARDIOGRAM WITH DOPPLER. NO EVIDENCE OF CONGESTIVE HEART FAILURE. NO EFFUSION. TECHNOLOGIST: JOVON KING
== END 2018-04-26 20:45 | disposition short-term general hospital (02) | DRG 439 ==
LOC: ER 21:10 → ERHOLD 04-26 01:27 → 3RD-ICU 04-26 01:55
PROVIDERS: ADMIT Hospitalist; ATTEND Hospitalist
DX: K85.90 Acute pancreatitis without necrosis or infection, unspecified (principal); E87.2 Acidosis; K31.1 Adult hypertrophic pyloric stenosis; B17.9 Acute viral hepatitis, unspecified; I10 Essential (primary) hypertension; R06.03 Acute respiratory distress; K29.80 Duodenitis without bleeding; K72.90 Hepatic failure, unspecified without coma; D75.89 Other specified diseases of blood and blood-forming organs; F10.20 Alcohol dependence, uncomplicated; N28.9 Disorder of kidney and ureter, unspecified; F17.210 Nicotine dependence, cigarettes, uncomplicated; J44.9 Chronic obstructive pulmonary disease, unspecified; Z88.0 Allergy status to penicillin; Z91.040 Latex allergy status
CPT/HCPCS: 36415; 51702; 71045; 74018; 74176; 80048; 80053; 80061; 80076; 81003; 82010; 82140; 82150; 82533; 82550; 82553; 82607; 82746; 82805; 82962; 83605; 83690; 83735; 84100; 84145; 84439; 84443; 84484; 85014; 85018; 85025; 85610; 85652; 85730; 86140; 87040; 93005; 93306; 99285; C9113; J2185; J2405; J3010; J3411; J3420; J3475; J7030

== ENCOUNTER 2018-10-03 15:53 | Emergency (ER) | payer OTHER ==
--- OUTSIDE RECORDS SUMMARY | 2018-10-03 15:58 | XMS REPORT | Clinical Summary ---
:1960 Author Organization [facility] Address [address] [place] [address] Care Team Providers Name Role Phone Pcp, No Primary Care Provider Unavailable Allergies Active Allergy Reactions Severity Noted Date Comments Crab 04/26/2018 Latex 04/26/2018 Levofloxacin Itching 04/26/2018 Penicillins Hives 04/26/2018 Medications Medication Sig Dispensed Refills Start Date End Date Status PROAIR HFA 90 Inhale 2 puffs 0 02/14/2018 Active mcg/actuation by mouth via inhaler inhaler every 6 (six) hours as needed. enalapril Take 10 mg by 3 01/19/2018 Active (VASOTEC) 10 MG mouth daily. tablet gabapentin Take 800 mg by 0 04/18/2018 Active (NEURONTIN) 800 MG mouth 4 (four) tablet times daily. HYDROcodone-acetam Take 1 tablet 0 04/18/2018 Active inophen (NORCO by mouth 3 10-325) 10-325 mg (three) times per tablet daily as needed. metaxalone Take 800 mg by 0 04/18/2018 Active (SKELAXIN) 800 MG mouth every 6 tablet (six) hours. morphine (MS Take 60 mg by 0 04/18/2018 Active CONTIN) 60 MG 12 mouth 2 (two) hr tablet times daily. ondansetron Take 8 mg by 0 04/18/2018 Active (ZOFRAN) 4 MG mouth daily. tablet folic acid Take 1 tablet 90 tablet 0 05/11/2018 05/11/2019 Active (FOLVITE) 1 MG (1 mg total) tablet by mouth daily. magnesium oxide Take 1 tablet 90 tablet 0 05/11/2018 05/11/2019 Active (MAG-OX) 400 mg (400 mg total) tablet by mouth daily. thiamine 100 MG Take 1 tablet 90 tablet 0 05/11/2018 05/11/2019 Active tablet (100 mg total) by mouth daily. ibuprofen Take 800 mg by 0 04/10/2018 05/02/2018 Discontinued (ADVIL,MOTRIN) 800 mouth every 12 MG tablet (twelve) hours as needed. Active Problems Problem Noted Date (HFpEF) heart failure with preserved ejection fraction 04/30/2018 Acute encephalopathy 04/30/2018 Acute and chronic respiratory failure with hypercapnia 04/30/2018 Alcohol abuse 04/30/2018 Acute pancreatitis 04/26/2018 ENRIQUE (acute kidney injury) 04/26/2018 Acute liver failure without hepatic coma 04/26/2018 Other chronic pain 04/26/2018 Encounters Date Type Specialty Care Team Description 04/27/2018 Orders Only General Internal Medicine 04/26/2018 - [facility] General Internal Miki Green MD Idiopathic acute pancreatitis with infected necrosis (Primary Dx); 05/11/2018 Encounter Medicine Yessica Garvey Alcohol-induced acute pancreatitis without infection or necrosis; MD Chung ENRIQUE (acute kidney injury) (HCC); Jevon, Acute pancreatitis without infection or necrosis, unspecified pancreatitis type; Jaskaran Severe sepsis (HCC); MD Blake Tobacco use; Bebeto Hooper, Elevated ferritin level; Elevated LDH; Lily Alexander Obesity (BMI 30-39.9); MD Rah Acute liver failure without hepatic coma; Dayron Cantu Metabolic acidosis; MD Chandler Acute respiratory failure with hypercapnia (HCC); Alcohol abuse; Acute and chronic respiratory failure with hypercapnia (HCC); Shock (HCC); Respiratory failure requiring intubation (HCC); Septic shock (HCC); Other chronic pain; (HFpEF) heart failure with preserved ejection fraction (HCC); Acute encephalopathy 04/26/2018 Telephone Critical Care Miki Green MD [id number] Call Medicine after 10/02/2017 Family History Medical History Relation Name Comments Heart disease Father Hypertension Father Cancer Mother Hypertension Mother Lung disease Mother Relation Name Status Comments Father Mother Social History Tobacco Use Types Packs/Day Years Used Date Former Smoker Cigarettes Smokeless Tobacco: Never Used Alcohol Use Drinks/Week oz/Week Comments Yes 4 Shots of liquor 2.4 Sex Assigned at Date Recorded Not on file Job Start Date Occupation Industry Not on file Not on file Not on file Travel History Travel Start Travel End No recent travel history available. Last Filed Vital Signs Vital Sign Reading Time Taken Blood Pressure 164/94 05/11/2018 1:56 PM CDT Pulse 87 05/11/2018 1:56 PM CDT Temperature 37.3 C (99.2 F) 05/11/2018 11:10 AM CDT Respiratory Rate 17 05/11/2018 11:10 AM CDT Oxygen Saturation 97% 05/11/2018 2:01 PM CDT Inhaled Oxygen Concentration 30% 05/11/2018 12:00 AM CDT Weight 90.7 kg (200 lb) 05/11/2018 4:13 AM CDT Height 160 cm (5' 3") 05/01/2018 8:02 PM CDT Body Mass Index 35.43 05/11/2018 4:13 AM CDT Plan of Treatment Not on file Procedures Procedure Name Priority Date/Time Associated Comments Diagnosis RHYTHM STRIP - SCAN 05/14/2018 8:51 AM CDT POCT-GLUCOSE METER Routine 05/11/2018 12:37 Results for this PM CDT procedure are in the results section. POCT-GLUCOSE METER Routine 05/11/2018 7:08 Results for this AM CDT procedure are in the results section. MAGNESIUM STAT 05/11/2018 4:19 Results for this AM CDT procedure are in the results section. BASIC METABOLIC PANEL Routine 05/11/2018 4:19 Results for this (7) AM CDT procedure are in the results section. POCT-GLUCOSE METER Routine 05/10/2018 9:59 Results for this PM CDT procedure are in the results section. POCT-GLUCOSE METER Routine 05/10/2018 5:32 Results for this PM CDT procedure are in the results section. POCT-GLUCOSE METER Routine 05/10/2018 11:43 Results for this AM CDT procedure are in the results section. POCT-GLUCOSE METER Routine 05/10/2018 7:26 Results for this AM CDT procedure are in the results section. HEMOGLOBIN AND Routine 05/10/2018 3:58 Results for this HEMATOCRIT AM CDT procedure are in the results section. MAGNESIUM STAT 05/10/2018 3:58 Results for this AM CDT procedure are in the results section. BASIC METABOLIC PANEL Routine 05/10/2018 3:58 Results for this (7) AM CDT procedure are in the results section. POCT-GLUCOSE METER Routine 05/09/2018 10:56 Results for this PM CDT procedure are in the results section. HEMOGLOBIN AND Routine 05/09/2018 4:35 Results for this HEMATOCRIT PM CDT procedure are in the results section. POCT-GLUCOSE METER Routine 05/09/2018 1:13 Results for this PM CDT procedure are in the results section. POCT-GLUCOSE METER Routine 05/09/2018 7:30 Results for this AM CDT procedure are in the results section. CBC W/PLT COUNT & AUTO STAT 05/09/2018 6:24 Results for this DIFFERENTIAL AM CDT procedure are in the results section. HEMOGLOBIN AND Routine 05/09/2018 6:24 Results for this HEMATOCRIT AM CDT procedure are in the results section. MAGNESIUM STAT 05/09/2018 6:24 Results for this AM CDT procedure are in the results section. BASIC METABOLIC PANEL Routine 05/09/2018 6:24 Results for this (7) AM CDT procedure are in the results section. CBC W/PLT COUNT & AUTO STAT 05/09/2018 6:24 Results for this DIFFERENTIAL AM CDT procedure are in the results section. POCT-GLUCOSE METER Routine 05/09/2018 12:51 Results for this AM CDT procedure are in the results section. POCT-GLUCOSE METER Routine 05/08/2018 6:11 Results for this PM CDT procedure are in the results section. TRANSFUSION SERVICE 05/08/2018 6:02 REPORT - SCAN PM CDT HEMOGLOBIN AND Routine 05/08/2018 4:24 Results for this HEMATOCRIT PM CDT procedure are in the results section. POCT-GLUCOSE METER Routine 05/08/2018 11:25 Results for this AM CDT procedure are in the results section. POCT-GLUCOSE METER Routine 05/08/2018 8:18 Results for this AM CDT procedure are in the results section. CBC W/PLT COUNT & AUTO Routine 05/08/2018 4:15 Results for this DIFFERENTIAL AM CDT procedure are in the results section. CBC W/PLT COUNT & AUTO Routine 05/08/2018 4:15 Results for this DIFFERENTIAL AM CDT procedure are in the results section. PHOSPHORUS Routine 05/08/2018 4:15 Results for this AM CDT procedure are in the results section. MAGNESIUM STAT 05/08/2018 4:15 Results for this AM CDT procedure are in the results section. BASIC METABOLIC PANEL Routine 05/08/2018 4:15 Results for this (7) AM CDT procedure are in the results section. HEMOGLOBIN AND Routine 05/08/2018 4:15 Results for this HEMATOCRIT AM CDT procedure are in the results section. POCT-GLUCOSE METER Routine 05/08/2018 12:47 Results for this AM CDT procedure are in the results section. PREPARE LEUKO-REDUCED STAT 05/07/2018 11:54 Results for this RBC PM CDT procedure are in the results section. HEMOGLOBIN AND Routine 05/07/2018 8:48 Results for this HEMATOCRIT PM CDT procedure are in the results section. TRANSFUSION SERVICE 05/07/2018 6:03 REPORT - SCAN PM CDT POCT-GLUCOSE METER Routine 05/07/2018 5:47 Results for this PM CDT procedure are in the results section. HEMOGLOBIN AND Routine 05/07/2018 11:58 Results for this HEMATOCRIT AM CDT procedure are in the results section. POCT-GLUCOSE METER Routine 05/07/2018 11:36 Results for this AM CDT procedure are in the results section. POCT-GLUCOSE METER Routine 05/07/2018 6:04 Results for this AM CDT procedure are in the results section. PHOSPHORUS Routine 05/07/2018 4:08 Results for this AM CDT procedure are in the results section. MAGNESIUM Routine 05/07/2018 4:08 Results for this AM CDT procedure are in the results section. BASIC METABOLIC PANEL Routine 05/07/2018 4:08 Results for this (7) AM CDT procedure are in the results section. VANCOMYCIN LEVEL, Routine 05/07/2018 4:08 Results for this RANDOM AM CDT procedure are in the results section. HEMOGLOBIN AND Routine 05/07/2018 4:08 Results for this HEMATOCRIT AM CDT procedure are in the results section. POCT-GLUCOSE METER Routine 05/07/2018 12:00 Results for this AM CDT procedure are in the results section. HEMOGLOBIN AND Routine 05/06/2018 8:22 Results for this HEMATOCRIT PM CDT procedure are in the results section. POCT-GLUCOSE METER Routine 05/06/2018 6:13 Results for this PM CDT procedure are in the results section. TRANSFUSION SERVICE 05/06/2018 6:01 REPORT - SCAN PM CDT VANCOMYCIN LEVEL, Routine 05/06/2018 3:45 Results for this RANDOM PM CDT procedure are in the results section. TRANSFUSE LEUKO-REDUCED STAT 05/06/2018 12:23 RED BLOOD CELLS PM CDT POCT-GLUCOSE METER Routine 05/06/2018 12:20 Results for this PM CDT procedure are in the results section. HEMOGLOBIN AND STAT 05/06/2018 12:14 Results for this HEMATOCRIT PM CDT procedure are in the results section. ECHOCARDIOGRAM REPORT - 05/06/2018 8:20 SCAN AM CDT BASIC METABOLIC PANEL Routine 05/06/2018 4:42 Results for this (7) AM CDT procedure are in the results section. CBC W/PLT COUNT & AUTO STAT 05/06/2018 4:18 Results for this DIFFERENTIAL AM CDT procedure are in the results section. CBC W/PLT COUNT & AUTO STAT 05/06/2018 4:18 Results for this DIFFERENTIAL AM CDT procedure are in the results section. POCT-GLUCOSE METER Routine 05/06/2018 12:00 Results for this AM CDT procedure are in the results section. POCT-GLUCOSE METER Routine 05/05/2018 5:24 Results for this PM CDT procedure are in the results section. CT ABDOMEN/PELVIS STAT 05/05/2018 5:06 Results for this WITHOUT IV CONTRAST PM CDT procedure are in the results section. TROPONIN I STAT 05/05/2018 3:53 Results for this PM CDT procedure are in the results section. POCT-GLUCOSE METER Routine 05/05/2018 12:10 Results for this PM CDT procedure are in the results section. ECHO W CONTRAST & STAT 05/05/2018 9:52 Results for this DOPPLER AM CDT procedure are in the results section. HEMATOCRIT-STAT LAB Routine 05/05/2018 8:41 Results for this AM CDT procedure are in the results section. BLOOD GAS, ARTERIAL STAT 05/05/2018 8:40 Results for this AM CDT procedure are in the results section. LACTIC ACID, ARTERIAL, Routine 05/05/2018 8:39 Results for this WHOLE BLOOD AM CDT procedure are in the results section. HEMOGLOBIN-STAT LAB Routine 05/05/2018 8:39 Results for this AM CDT procedure are in the results section. BLOOD GAS, ARTERIAL STAT 05/05/2018 7:40 Results for this AM CDT procedure are in the results section. UREA NITROGEN, RANDOM Routine 05/05/2018 7:40 Results for this URINE AM CDT procedure are in the results section. SODIUM, RANDOM URINE Routine 05/05/2018 7:40 Results for this AM CDT procedure are in the results section. CREATININE, RANDOM Routine 05/05/2018 7:40 Results for this URINE AM CDT procedure are in the results section. BASIC METABOLIC PANEL Routine 05/05/2018 7:40 Results for this (7) AM CDT procedure are in the results section. TROPONIN I STAT 05/05/2018 7:40 Results for this AM CDT procedure are in the results section. SPUTUM CULTURE + GRAM Routine 05/05/2018 7:40 Results for this STAIN AM CDT procedure are in the results section. VANCOMYCIN LEVEL, Routine 05/05/2018 4:42 Results for this RANDOM AM CDT procedure are in the results section. BLOOD GAS, ARTERIAL STAT 05/05/2018 4:42 Results for this AM CDT procedure are in the results section. LACTIC ACID, VENOUS, STAT 05/05/2018 4:42 Results for this WHOLE BLOOD AM CDT procedure are in the results section. XR ABDOMEN 1 VIEW STAT 05/05/2018 4:42 Results for this AM CDT procedure are in the results section. XR CHEST 1 VIEW STAT 05/05/2018 4:42 Results for this PORTABLE/BEDSIDE AM CDT procedure are in the results section. CBC W/PLT COUNT & AUTO Routine 05/05/2018 3:12 Results for this DIFFERENTIAL AM CDT procedure are in the results section. CBC W/PLT COUNT & AUTO Routine 05/05/2018 3:12 Results for this DIFFERENTIAL AM CDT procedure are in the results section. BLOOD GAS, ARTERIAL STAT 05/05/2018 3:12 Results for this AM CDT procedure are in the results section. URINALYSIS W/ REFLEX Routine 05/05/2018 2:04 Results for this URINE CULTURE AM CDT procedure are in the results section. URINE CULTURE Routine 05/05/2018 2:04 Results for this AM CDT procedure are in the results section. TYPE AND SCREEN, STAT 05/05/2018 1:51 Results for this AUTOMATED AM CDT procedure are in the results section. LACTIC ACID, VENOUS, STAT 05/05/2018 1:48 Results for this WHOLE BLOOD AM CDT procedure are in the results section. PROCALCITONIN STAT 05/05/2018 1:47 Results for this AM CDT procedure are in the results section. BLOOD GAS, ARTERIAL STAT 05/05/2018 1:46 Results for this AM CDT procedure are in the results section. POCT-GLUCOSE METER Routine 05/05/2018 1:00 Results for this AM CDT procedure are in the results section. CBC W/PLT COUNT & AUTO STAT 05/05/2018 12:57 Results for this DIFFERENTIAL AM CDT procedure are in the results section. LIPASE Add-On 05/05/2018 12:57 Results for this AM CDT procedure are in the results section. TROPONIN I Add-On 05/05/2018 12:57 Results for this AM CDT procedure are in the results section. HEPATIC FUNCTION PANEL Add-On 05/05/2018 12:57 Results for this AM CDT procedure are in the results section. B-TYPE NATRIURETIC STAT 05/05/2018 12:57 Results for this FACTOR (BNP) AM CDT procedure are in the results section. MAGNESIUM STAT 05/05/2018 12:57 Results for this AM CDT procedure are in the results section. CBC W/PLT COUNT & AUTO STAT 05/05/2018 12:57 Results for this DIFFERENTIAL AM CDT procedure are in the results section. BASIC METABOLIC PANEL STAT 05/05/2018 12:57 Results for this (7) AM CDT procedure are in the results section. LACTIC ACID, VENOUS, Routine 05/05/2018 12:57 Results for this WHOLE BLOOD AM CDT procedure are in the results section. XR CHEST 1 VIEW STAT 05/05/2018 12:14 Results for this PORTABLE/BEDSIDE AM CDT procedure are in the results section. POCT-LACTIC ACID, Routine 05/04/2018 11:52 Results for this ARTERIAL PM CDT procedure are in the results section. POCT-HEMOGLOBIN Routine 05/04/2018 11:47 Results for this PM CDT procedure are in the results section. POCT-HEMATOCRIT Routine 05/04/2018 11:47 Results for this PM CDT procedure are in the results section. POCT-CALCIUM IONIZED Routine 05/04/2018 11:47 Results for this PM CDT procedure are in the results section. POCT-GLUCOSE Routine 05/04/2018 11:47 Results for this PM CDT procedure are in the results section. POCT-POTASSIUM Routine 05/04/2018 11:47 Results for this PM CDT procedure are in the results section. POCT-SODIUM Routine 05/04/2018 11:47 Results for this PM CDT procedure are in the results section. POCT-BLOOD GASES, Routine 05/04/2018 11:47 Results for this ARTERIAL PM CDT procedure are in the results section. POCT-GLUCOSE METER Routine 05/04/2018 9:25 Results for this PM CDT procedure are in the results section. POCT-GLUCOSE METER Routine 05/04/2018 7:02 Results for this PM CDT procedure are in the results section. BLOOD CULTURE Routine 05/04/2018 4:57 Results for this PM CDT procedure are in the results section. BLOOD CULTURE Routine 05/04/2018 4:57 Results for this PM CDT procedure are in the results section. POCT-HEMOGLOBIN Routine 05/04/2018 4:42 Results for this PM CDT procedure are in the results section. POCT-HEMATOCRIT Routine 05/04/2018 4:42 Results for this PM CDT procedure are in the results section. POCT-CALCIUM IONIZED Routine 05/04/2018 4:42 Results for this PM CDT procedure are in the results section. POCT-GLUCOSE Routine 05/04/2018 4:42 Results for this PM CDT procedure are in the results section. POCT-POTASSIUM Routine 05/04/2018 4:42 Results for this PM CDT procedure are in the results section. POCT-SODIUM Routine 05/04/2018 4:42 Results for this PM CDT procedure are in the results section. POCT-BLOOD GASES, Routine 05/04/2018 4:42 Results for this VENOUS PM CDT procedure are in the results section. POCT-GLUCOSE METER Routine 05/04/2018 1:25 Results for this PM CDT procedure are in the results section. POCT-LACTIC ACID, Routine 05/04/2018 12:53 Results for this VENOUS PM CDT procedure are in the results section. POCT-GLUCOSE METER Routine 05/04/2018 9:11 Results for this AM CDT procedure are in the results section. PHOSPHORUS Routine 05/04/2018 4:35 Results for this AM CDT procedure are in the results section. MAGNESIUM Routine 05/04/2018 4:35 Results for this AM CDT procedure are in the results section. CBC (HEMOGRAM ONLY) Routine 05/04/2018 4:35 Results for this AM CDT procedure are in the results section. APTT Routine 05/04/2018 4:35 Results for this AM CDT procedure are in the results section. PROTHROMBIN TIME/INR Routine 05/04/2018 4:35 Results for this AM CDT procedure are in the results section. COMPREHENSIVE METABOLIC Routine 05/04/2018 4:35 Results for this PANEL AM CDT procedure are in the results section. POCT-GLUCOSE METER Routine 05/03/2018 8:57 Results for this PM CDT procedure are in the results section. POCT-GLUCOSE METER Routine 05/03/2018 5:31 Results for this PM CDT procedure are in the results section. POCT-GLUCOSE METER Routine 05/03/2018 12:16 Results for this PM CDT procedure are in the results section. POCT-GLUCOSE METER Routine 05/03/2018 8:06 Results for this AM CDT procedure are in the results section. BLOOD GAS, VENOUS Routine 05/03/2018 7:08 Results for this AM CDT procedure are in the results section. LACTIC ACID, VENOUS, Routine 05/03/2018 5:17 Results for this WHOLE BLOOD AM CDT procedure are in the results section. CBC (HEMOGRAM ONLY) Routine 05/03/2018 5:17 Results for this AM CDT procedure are in the results section. PHOSPHORUS Routine 05/03/2018 5:17 Results for this AM CDT procedure are in the results section. MAGNESIUM Routine 05/03/2018 5:17 Results for this AM CDT procedure are in the results section. APTT Routine 05/03/2018 5:17 Results for this AM CDT procedure are in the results section. PROTHROMBIN TIME/INR Routine 05/03/2018 5:17 Results for this AM CDT procedure are in the results section. COMPREHENSIVE METABOLIC Routine 05/03/2018 5:17 Results for this PANEL AM CDT procedure are in the results section. POCT-GLUCOSE METER Routine 05/02/2018 8:58 Results for this PM CDT procedure are in the results section. POCT-GLUCOSE METER Routine 05/02/2018 6:43 Results for this PM CDT procedure are in the results section. PHOSPHORUS Routine 05/02/2018 4:49 Results for this PM CDT procedure are in the results section. MAGNESIUM Routine 05/02/2018 4:49 Results for this PM CDT procedure are in the results section. CALCIUM Routine 05/02/2018 4:49 Results for this PM CDT procedure are in the results section. POCT-GLUCOSE METER Routine 05/02/2018 1:08 Results for this PM CDT procedure are in the results section. XR CHEST 1 VIEW STAT 05/02/2018 11:31 Results for this PORTABLE/BEDSIDE AM CDT procedure are in the results section. POCT-GLUCOSE METER Routine 05/02/2018 8:25 Results for this AM CDT procedure are in the results section. LACTIC ACID, VENOUS, Routine 05/02/2018 6:30 Results for this WHOLE BLOOD AM CDT procedure are in the results section. BLOOD GAS, VENOUS Routine 05/02/2018 5:30 Results for this AM CDT procedure are in the results section. CBC (HEMOGRAM ONLY) Routine 05/02/2018 5:30 Results for this AM CDT procedure are in the results section. PHOSPHORUS Routine 05/02/2018 5:30 Results for this AM CDT procedure are in the results section. MAGNESIUM Routine 05/02/2018 5:30 Results for this AM CDT procedure are in the results section. APTT Routine 05/02/2018 5:30 Results for this AM CDT procedure are in the results section. PROTHROMBIN TIME/INR Routine 05/02/2018 5:30 Results for this AM CDT procedure are in the results section. COMPREHENSIVE METABOLIC Routine 05/02/2018 5:30 Results for this PANEL AM CDT procedure are in the results section. POCT-GLUCOSE METER Routine 05/01/2018 8:44 Results for this PM CDT procedure are in the results section. HEMOGLOBIN AND STAT 05/01/2018 1:26 Results for this HEMATOCRIT PM CDT procedure are in the results section. POCT-GLUCOSE METER Routine 05/01/2018 12:59 Results for this PM CDT procedure are in the results section. PROCALCITONIN STAT 05/01/2018 10:31 Results for this AM CDT procedure are in the results section. LIPASE STAT 05/01/2018 10:31 Results for this AM CDT procedure are in the results section. POCT-GLUCOSE METER Routine 05/01/2018 7:06 Results for this AM CDT procedure are in the results section. BLOOD GAS, VENOUS Routine 05/01/2018 4:11 Results for this AM CDT procedure are in the results section. LACTIC ACID, VENOUS, Routine 05/01/2018 4:11 Results for this WHOLE BLOOD AM CDT procedure are in the results section. CALCIUM, IONIZED Routine 05/01/2018 4:11 Results for this AM CDT procedure are in the results section. CBC (HEMOGRAM ONLY) Routine 05/01/2018 4:11 Results for this AM CDT procedure are in the results section. PHOSPHORUS Routine 05/01/2018 4:11 Results for this AM CDT procedure are in the results section. MAGNESIUM Routine 05/01/2018 4:11 Results for this AM CDT procedure are in the results section. APTT Routine 05/01/2018 4:11 Results for this AM CDT procedure are in the results section. PROTHROMBIN TIME/INR Routine 05/01/2018 4:11 Results for this AM CDT procedure are in the results section. COMPREHENSIVE METABOLIC Routine 05/01/2018 4:11 Results for this PANEL AM CDT procedure are in the results section. POCT-GLUCOSE METER Routine 04/30/2018 10:02 Results for this PM CDT procedure are in the results section. POTASSIUM Routine 04/30/2018 8:32 Results for this PM CDT procedure are in the results section. PHOSPHORUS Routine 04/30/2018 5:42 Results for this PM CDT procedure are in the results section. MAGNESIUM Routine 04/30/2018 5:42 Results for this PM CDT procedure are in the results section. CALCIUM Routine 04/30/2018 5:42 Results for this PM CDT procedure are in the results section. POTASSIUM Routine 04/30/2018 5:42 Results for this PM CDT procedure are in the results section. POCT-GLUCOSE METER Routine 04/30/2018 5:08 Results for this PM CDT procedure are in the results section. BLOOD GAS, VENOUS Routine 04/30/2018 1:59 Results for this PM CDT procedure are in the results section. POTASSIUM Routine 04/30/2018 12:48 Results for this PM CDT procedure are in the results section. POCT-GLUCOSE METER Routine 04/30/2018 11:52 Results for this AM CDT procedure are in the results section. BLOOD GAS, VENOUS Routine 04/30/2018 8:21 Results for this AM CDT procedure are in the results section. POTASSIUM Routine 04/30/2018 8:21 Results for this AM CDT procedure are in the results section. POCT-GLUCOSE METER Routine 04/30/2018 7:05 Results for this AM CDT procedure are in the results section. LACTIC ACID, ARTERIAL, STAT 04/30/2018 3:26 Results for this WHOLE BLOOD AM CDT procedure are in the results section. CALCIUM, IONIZED Routine 04/30/2018 3:26 Results for this AM CDT procedure are in the results section. CBC (HEMOGRAM ONLY) Routine 04/30/2018 3:26 Results for this AM CDT procedure are in the results section. PHOSPHORUS Routine 04/30/2018 3:26 Results for this AM CDT procedure are in the results section. MAGNESIUM Routine 04/30/2018 3:26 Results for this AM CDT procedure are in the results section. APTT Routine 04/30/2018 3:26 Results for this AM CDT procedure are in the results section. PROTHROMBIN TIME/INR Routine 04/30/2018 3:26 Results for this AM CDT procedure are in the results section. COMPREHENSIVE METABOLIC Routine 04/30/2018 3:26 Results for this PANEL AM CDT procedure are in the results section. POCT-GLUCOSE METER Routine 04/29/2018 10:10 Results for this PM CDT procedure are in the results section. POTASSIUM Routine 04/29/2018 9:26 Results for this PM CDT procedure are in the results section. POCT-GLUCOSE METER Routine 04/29/2018 6:00 Results for this PM CDT procedure are in the results section. ECHOCARDIOGRAM REPORT - 04/29/2018 5:50 SCAN PM CDT BLOOD GAS, VENOUS STAT 04/29/2018 5:10 Results for this PM CDT procedure are in the results section. 2D ECHO W/ DOPPLER STAT 04/29/2018 3:50 Results for this (CW/PW/COLOR) PM CDT procedure are in the results section. PHOSPHORUS Routine 04/29/2018 3:44 Results for this PM CDT procedure are in the results section. MAGNESIUM Routine 04/29/2018 3:44 Results for this PM CDT procedure are in the results section. CALCIUM Routine 04/29/2018 3:44 Results for this PM CDT procedure are in the results section. POTASSIUM Routine 04/29/2018 3:44 Results for this PM CDT procedure are in the results section. BLOOD GAS, VENOUS STAT 04/29/2018 2:21 Results for this PM CDT procedure are in the results section. POCT-GLUCOSE METER Routine 04/29/2018 12:18 Results for this PM CDT procedure are in the results section. BLOOD GAS, VENOUS STAT 04/29/2018 10:47 Results for this AM CDT procedure are in the results section. US RENAL WITH DOPPLER Routine 04/29/2018 9:50 Results for this AM CDT procedure are in the results section. POTASSIUM Routine 04/29/2018 9:41 Results for this AM CDT procedure are in the results section. POCT-GLUCOSE METER Routine 04/29/2018 8:18 Results for this AM CDT procedure are in the results section. BLOOD GAS, ARTERIAL Routine 04/29/2018 5:53 Results for this AM CDT procedure are in the results section. CALCIUM, IONIZED Routine 04/29/2018 5:52 Results for this AM CDT procedure are in the results section. BASIC METABOLIC PANEL Routine 04/29/2018 4:31 Results for this (7) AM CDT procedure are in the results section. LACTIC ACID, ARTERIAL, STAT 04/29/2018 4:31 Results for this WHOLE BLOOD AM CDT procedure are in the results section. HIV-1 ANTIGEN WITH Routine 04/29/2018 4:31 Results for this HIV-1/2 ANTIBODY AM CDT procedure are in the results section. CBC (HEMOGRAM ONLY) Routine 04/29/2018 4:31 Results for this AM CDT procedure are in the results section. PHOSPHORUS Routine 04/29/2018 4:31 Results for this AM CDT procedure are in the results section. MAGNESIUM Routine 04/29/2018 4:31 Results for this AM CDT procedure are in the results section. COMPREHENSIVE METABOLIC Routine 04/29/2018 4:31 Results for this PANEL AM CDT procedure are in the results section. APTT Routine 04/29/2018 4:30 Results for this AM CDT procedure are in the results section. PROTHROMBIN TIME/INR Routine 04/29/2018 4:30 Results for this AM CDT procedure are in the results section. POTASSIUM Routine 04/28/2018 11:55 Results for this PM CDT procedure are in the results section. POCT-GLUCOSE METER Routine 04/28/2018 10:16 Results for this PM CDT procedure are in the results section. PHOSPHORUS Routine 04/28/2018 7:57 Results for this PM CDT procedure are in the results section. CALCIUM Routine 04/28/2018 7:57 Results for this PM CDT procedure are in the results section. MAGNESIUM Routine 04/28/2018 7:57 Results for this PM CDT procedure are in the results section. POTASSIUM Routine 04/28/2018 7:57 Results for this PM CDT procedure are in the results section. POCT-GLUCOSE METER Routine 04/28/2018 5:51 Results for this PM CDT procedure are in the results section. TRANSFUSION SERVICE 04/28/2018 5:50 REPORT - SCAN PM CDT PLATELET COUNT Routine 04/28/2018 3:16 Results for this PM CDT procedure are in the results section. POTASSIUM Routine 04/28/2018 3:16 Results for this PM CDT procedure are in the results section. XR CHEST 1 VIEW STAT 04/28/2018 3:13 Results for this PORTABLE/BEDSIDE PM CDT procedure are in the results section. MR ABDOMEN WO CONTRAST STAT 04/28/2018 2:02 Results for this MRCP PM CDT procedure are in the results section. POCT-GLUCOSE METER Routine 04/28/2018 11:12 Results for this AM CDT procedure are in the results section. HEMOGLOBIN A1C Routine 04/28/2018 9:51 Results for this AM CDT procedure are in the results section. HEPATITIS C ANTIBODY Routine 04/28/2018 9:51 Results for this AM CDT procedure are in the results section. HEPATITIS B CORE Routine 04/28/2018 9:51 Results for this ANTIBODY, IGM AM CDT procedure are in the results section. HEPATITIS B SURFACE Routine 04/28/2018 9:51 Results for this ANTIGEN AM CDT procedure are in the results section. HEPATITIS A ANTIBODY, Routine 04/28/2018 9:51 Results for this IGM AM CDT procedure are in the results section. ACETAMINOPHEN LEVEL Routine 04/28/2018 9:51 Results for this AM CDT procedure are in the results section. SODIUM, RANDOM URINE Routine 04/28/2018 9:43 Results for this AM CDT procedure are in the results section. CREATININE, RANDOM Routine 04/28/2018 9:43 Results for this URINE AM CDT procedure are in the results section. PROTEIN, RANDOM URINE Routine 04/28/2018 9:43 Results for this AM CDT procedure are in the results section. XR CHEST 1 VIEW STAT 04/28/2018 9:00 Results for this PORTABLE/BEDSIDE AM CDT procedure are in the results section. HEMOGLOBIN AND Routine 04/28/2018 8:38 Results for this HEMATOCRIT AM CDT procedure are in the results section. PHOSPHORUS STAT 04/28/2018 8:38 Results for this AM CDT procedure are in the results section. MAGNESIUM STAT 04/28/2018 8:38 Results for this AM CDT procedure are in the results section. CALCIUM, IONIZED STAT 04/28/2018 8:38 Results for this AM CDT procedure are in the results section. BASIC METABOLIC PANEL STAT 04/28/2018 8:38 Results for this (7) AM CDT procedure are in the results section. RETICULOCYTE COUNT STAT 04/28/2018 8:38 Results for this AM CDT procedure are in the results section. HAPTOGLOBIN STAT 04/28/2018 8:38 Results for this AM CDT procedure are in the results section. PERIPHERAL BLOOD SMEAR STAT 04/28/2018 8:38 Results for this - HOLD ONLY AM CDT procedure are in the results section. HEMOGLOBIN AND Routine 04/28/2018 4:24 Results for this HEMATOCRIT AM CDT procedure are in the results section. PHOSPHORUS Routine 04/28/2018 4:24 Results for this AM CDT procedure are in the results section. MAGNESIUM Routine 04/28/2018 4:24 Results for this AM CDT procedure are in the results section. (MANUAL DIFFERENTIAL) Routine 04/28/2018 2:55 Results for this AM CDT procedure are in the results section. CBC W/PLT COUNT & AUTO Routine 04/28/2018 2:55 Results for this DIFFERENTIAL AM CDT procedure are in the results section. FIBRINOGEN Routine 04/28/2018 2:55 Results for this AM CDT procedure are in the results section. PROTHROMBIN TIME/INR Routine 04/28/2018 2:55 Results for this AM CDT procedure are in the results section. PT/APTT Routine 04/28/2018 2:55 Results for this AM CDT procedure are in the results section. LACTATE DEHYDROGENASE Routine 04/28/2018 2:55 Results for this (LDH) AM CDT procedure are in the results section. LIPASE Routine 04/28/2018 2:55 Results for this AM CDT procedure are in the results section. LIPID PANEL Routine 04/28/2018 2:55 Results for this AM CDT procedure are in the results section. HEPATIC FUNCTION PANEL STAT 04/28/2018 2:55 Results for this AM CDT procedure are in the results section. C-REACTIVE PROTEIN Routine 04/28/2018 2:55 Results for this AM CDT procedure are in the results section. CBC W/PLT COUNT & AUTO Routine 04/28/2018 2:55 Results for this DIFFERENTIAL AM CDT procedure are in the results section. POCT-GLUCOSE METER Routine 04/28/2018 2:53 Results for this AM CDT procedure are in the results section. POCT-GLUCOSE METER Routine 04/28/2018 12:19 Results for this AM CDT procedure are in the results section. HEMOGLOBIN AND Routine 04/28/2018 12:06 Results for this HEMATOCRIT AM CDT procedure are in the results section. POCT-GLUCOSE METER Routine 04/27/2018 9:43 Results for this PM CDT procedure are in the results section. POCT-GLUCOSE METER Routine 04/27/2018 6:04 Results for this PM CDT procedure are in the results section. TRANSFUSION SERVICE 04/27/2018 5:51 REPORT - SCAN PM CDT VENOUS DOPPLER ARMS STAT 04/27/2018 4:30 Results for this BILATERAL PM CDT procedure are in the results section. LACTATE DEHYDROGENASE Routine 04/27/2018 3:55 Results for this (LDH) PM CDT procedure are in the results section. HEMOGLOBIN AND Routine 04/27/2018 3:27 Results for this HEMATOCRIT PM CDT procedure are in the results section. XR CHEST 1 VIEW STAT 04/27/2018 2:47 Results for this PORTABLE/BEDSIDE PM CDT procedure are in the results section. ANTI-NUCLEAR ANTIBODY Routine 04/27/2018 12:15 Results for this ([place]) PM CDT procedure are in the results section. C-REACTIVE PROTEIN Routine 04/27/2018 12:15 Results for this PM CDT procedure are in the results section. POCT-GLUCOSE METER Routine 04/27/2018 11:48 Results for this AM CDT procedure are in the results section. PERIPHERAL BLOOD SMEAR Routine 04/27/2018 10:19 Results for this - HOLD ONLY AM CDT procedure are in the results section. B-TYPE NATRIURETIC Routine 04/27/2018 10:19 Results for this FACTOR (BNP) AM CDT procedure are in the results section. HEMOGLOBIN AND Routine 04/27/2018 10:19 Results for this HEMATOCRIT AM CDT procedure are in the results section. FERRITIN Routine 04/27/2018 8:26 Results for this AM CDT procedure are in the results section. IRON, TIBC, % SAT. Routine 04/27/2018 8:26 Results for this (WITHOUT FERRITIN) AM CDT procedure are in the results section. FOLATE, RBC Routine 04/27/2018 8:26 Results for this AM CDT procedure are in the results section. VITAMIN B12 Routine 04/27/2018 8:26 Results for this AM CDT procedure are in the results section. PHOSPHORUS Routine 04/27/2018 8:26 Results for this AM CDT procedure are in the results section. LACTIC ACID, VENOUS, Routine 04/27/2018 8:26 Results for this WHOLE BLOOD AM CDT procedure are in the results section. ECG 12-LEAD Routine 04/27/2018 8:09 Results for this AM CDT procedure are in the results section. ECG 12-LEAD Routine 04/27/2018 8:09 AM CDT Procedure Note - Interface, External Ris In - 04/27/2018 8:43 AM CDT Ventricular Rate 107 BPM Atrial Rate 107 BPM P-R Interval 132 ms QRS Duration 92 ms Q-T Interval 366 ms QTC Calculation(Bazett) 488 ms P [place] 71 degrees R [place] 24 degrees T [place] 58 degrees Sinus tachycardia Otherwise normal ECG No previous ECGs available LACTIC ACID, VENOUS, WHOLE Routine 04/27/2018 6:19 AM CDT Results for this BLOOD procedure are in the results section. HEMOGLOBIN AND HEMATOCRIT Routine 04/27/2018 6:19 AM CDT MAGNESIUM Routine 04/27/2018 6:19 AM CDT POCT-GLUCOSE METER Routine 04/27/2018 6:18 AM CDT US ABDOMEN LIMITED Routine 04/27/2018 5:20 AM CDT POCT-GLUCOSE METER Routine 04/27/2018 4:44 AM CDT AMMONIA Routine 04/27/2018 4:44 AM CDT (CELLAVISION MANUAL DIFF) Routine 04/27/2018 4:12 AM CDT CBC W/PLT COUNT & AUTO Routine 04/27/2018 4:12 AM CDT Results for this DIFFERENTIAL procedure are in the results section. CBC W/PLT COUNT & AUTO Routine 04/27/2018 4:12 AM CDT Results for this DIFFERENTIAL procedure are in the results section. PREPARE LEUKO-REDUCED RBC SPENCER 04/27/2018 4:03 AM CDT BLOOD GAS, ARTERIAL STAT 04/27/2018 4:00 AM CDT BLOOD CULTURE Routine 04/27/2018 4:00 AM CDT URINALYSIS W/ MICROSCOPIC Routine 04/27/2018 12:48 AM CDT HEMOGLOBIN AND HEMATOCRIT Routine 04/27/2018 12:47 AM CDT URINE CULTURE Routine 04/27/2018 12:47 AM CDT COMPREHENSIVE METABOLIC Routine 04/27/2018 12:29 AM CDT Results for this PANEL procedure are in the results section. PHOSPHORUS Routine 04/27/2018 12:29 AM CDT MAGNESIUM Routine 04/27/2018 12:29 AM CDT LACTIC ACID, VENOUS, WHOLE Routine 04/27/2018 12:29 AM CDT Results for this BLOOD procedure are in the results section. CALCIUM, IONIZED Routine 04/27/2018 12:29 AM CDT HEMOGLOBIN A1C Routine 04/27/2018 12:29 AM CDT LIPID PANEL Routine 04/27/2018 12:29 AM CDT BLOOD CULTURE Routine 04/27/2018 12:28 AM CDT XR CHEST 1 VIEW SPENCER 04/27/2018 12:12 AM CDT Results for this PORTABLE/BEDSIDE procedure are in the results section. (CELLAVISION MANUAL DIFF) STAT 04/26/2018 11:26 PM CDT CBC W/PLT COUNT & AUTO STAT 04/26/2018 11:26 PM CDT Results for this DIFFERENTIAL procedure are in the results section. TYPE AND SCREEN, AUTOMATED SPENCER 04/26/2018 11:26 PM CDT FIBRINOGEN Routine 04/26/2018 11:26 PM CDT PROTHROMBIN TIME/INR Routine 04/26/2018 11:26 PM CDT CBC W/PLT COUNT & AUTO STAT 04/26/2018 11:26 PM CDT Results for this DIFFERENTIAL procedure are in the results section. after 10/02/2017 Results RHYTHM STRIP - SCAN (05/14/2018 8:51 AM CDT) Narrative Performed At POC-Glucose meter (05/11/2018 12:37 PM CDT)Only the most recent of57 resultswithin the time period is included. POC-Glucose Meter 148 (H)Comment: TESTED AT 70 - 110 mg/dL [facility] [address] [place] [address] Specimen Blood Performing Organization Address [facility] Phone Number [address] [address] [phone] [facility] Magnesium (05/11/2018 4:19 AM CDT)Only the most recent of20 resultswithin the time period is included. Magnesium 1.4 (L) 1.6 - 2.6 mg/dL [facility] Specimen Blood - Arm, Right Performing Organization Address [facility] Phone Number [address] [address] [phone] [facility] Basic Metabolic Panel (05/11/2018 4:19 AM CDT)Only the most recent of10 resultswithin the time period is included. Sodium 141 136 - 145 meq/L [facility] Potassium 4.9 3.5 - 5.1 meq/L [facility] Chloride 102 98 - 107 meq/L [facility] CO2 32 (H) 22 - 29 meq/L [facility] BUN 12 7 - 21 mg/dL [facility] Creatinine 0.73 0.57 - 1.25 mg/dL [facility] Glucose 118 (H) 70 - 105 mg/dL [facility] Calcium 9.0 8.4 - 10.2 mg/dL [facility] EGFR 83Comment: ESTIMATED GFR IS mL/min/1.73 sq m [facility] NOT ACCURATE CREATININE [facility] CLEARANCE IN PREDICTING GLOMERULAR FILTRATION RATE. ESTIMATED GFR IS NOT APPLICABLE FOR DIALYSIS PATIENTS. Specimen Blood - Arm, Right Performing Organization Address City/[facility]/Zipcode Phone Number [facility] [address] [place] [phone] CENTER Hemoglobin and hematocrit (05/10/2018 3:58 AM CDT)Only the most recent of18 resultswithin the time period is included. Hemoglobin 8.8 (L) 11.2 - 15.7 GM/DL [facility] Hematocrit 28.4 (L) 34.1 - 44.9 % [facility] Specimen Blood - Arm, Right Performing Organization Address [facility] Phone Number [address] [phone] CENTER CBC with platelet count + automated diff (05/09/2018 6:24 AM CDT)Only the most recent of8 resultswithin the time period is included. WBC 6.5 3.5 - 10.5 K/L [facility] RBC 2.63 (L) 3.93 - 5.22 M/L [facility] Hemoglobin 8.5 (L) 11.2 - 15.7 GM/DL [facility] Hematocrit 27.0 (L) 34.1 - 44.9 % [facility] MCV 102.7 (H) 79.4 - 94.8 fL [facility] MCH 32.3 (H) 25.6 - 32.2 pg [facility] MCHC 31.5 (L) 32.2 - 35.5 GM/DL [facility] RDW 16.9 (H) 11.7 - 14.4 % [facility] Platelets 428 150 - 450 K/CU MM [facility] MPV 9.1 (L) 9.4 - 12.3 fL [facility] nRBC 0 0 - 0 /100 WBC [facility] % Neutros 72 % [facility] % Lymphs 16 % [facility] % Monos 10 % [facility] % Eos 1 % [facility] % Baso 0 % [facility] # Neutros 4.63 1.56 - 6.13 K/L [facility] # Lymphs 1.01 (L) 1.18 - 3.74 K/L [facility] # Monos 0.64 (H) 0.24 - 0.36 K/L [facility] # Eos 0.04 0.04 - 0.36 K/L [facility] # Baso 0.02 0.01 - 0.08 K/L [facility] Immature 2 (H) 0 - 1 % [facility] Granulocytes-Relative [facility] Specimen Blood Performing Organization Address City/[facility]/Zipcode Phone Number [address] [phone] [facility] TRANSFUSION SERVICE REPORT - SCAN (05/08/2018 6:02 PM CDT)Only the most recent of5 resultswithin the time period is included. Narrative Performed At Phosphorus (05/08/2018 4:15 AM CDT)Only the most recent of16 resultswithin the time period is included. Phosphorus 2.6Comment: Specimen slightly 2.3 - 4.7 mg/dL [facility] hemolyzed [facility] Specimen Blood Performing Organization Address City/[facility] Phone Number [address] [address] [phone] CENTER Prepare Leuko-Red RBC (05/07/2018 11:54 PM CDT)Only the most recent of2 resultswithin the time period is included. CROSSMATCH COMPATIBLE SAFETR[employer] TX Unit ABO O Pos [facility] TX UNIT NUMBER [id number] [facility] Status TRANSFUSED [facility] Blood Bank Product RED BLOOD CELLS [facility] PRODUCT CODE [id number] [facility] Specimen Other Performing Organization Address City/State/Zipcode Phone Number [facility] Vancomycin level, random (05/07/2018 4:08 AM CDT)Only the most recent of3 resultswithin the time period is included. Vancomycin Rm 23.1 ug/mL [facility] Specimen Blood - Line, Venous Narrative Performed At [facility] Reference Range: No Normals Performing Organization Address City/State/Zipcode Phone Number [facility] [address] [place] [address] [phone] CENTER Transfuse Leuko-Red RBC (05/06/2018 12:23 PM CDT)Only the most recent of2 resultswithin the time period is included.ECHOCARDIOGRAM REPORT - SCAN (2017 8:20 AM CDT) Narrative Performed At CT abdomen/pelvis without iv contrast (05/05/2018 5:06 PM CDT) Narrative Performed At FINAL REPORT [facility] CLINICAL HISTORY: Recent pancreatitis, shock FINDINGS: Multiple axial images of the abdomen and pelvis were performed without intravenous contrast. Oral contrast was given. This exam was performed according to our departmental dose-optimization program, which includes automated exposure control, adjustment of the mA and/or kV according to patient size and/or use of the iterative reconstruction technique. Comparison:None. Lower chest: Bilateral dependent/compressive atelectasis versus pneumonitis. Small bilateral pleural effusions. Visualized cardiac contours normal. Liver: Enlarged, measuring 20 cm in craniocaudal dimension at the midclavicular line. Low density liver parenchyma, consistent with steatosis Gallbladder and biliary tree: Contracted Spleen: No significant findings. Adrenal Glands: No significant findings. Kidneys and ureters: 1.8 cm exophytic cyst arising from the superior left kidney. Stomach and Duodenum: Enteric tube tip in the distal stomach. Pancreas: Subtle peripancreatic fat stranding. No retroperitoneal fluid collection. No focal pancreatic parenchymal abnormality on this limited noncontrast study. Bowel: Fluid density stool to the level of the rectum. No bowel obstruction or pneumatosis intestinalis. Left colonic diverticulosis. Appendix:Nonvisualized. No right lower quadrant inflammatory changes. Bladder: Decompressed with a Paulson catheter Major vascular structures: No significant findings. Reproductive organs: Previous hysterectomy Other: Surgical clips in the bilateral inguinal regions. Subcutaneous edema. No intra-abdominal fluid collection to suggest abscess. Skeleton: No acute bony abnormality. IMPRESSION: Small bilateral pleural effusions and adjacent atelectasis versus pneumonitis. Subtle peripancreatic fat stranding without focal noncontrast parenchymal abnormality. No retroperitoneal fluid collection. Correlation with serology to evaluate for pancreatitis is recommended. Fluid density stool throughout the colon, nonspecific but suggesting diarrheal illness. Hepatomegaly with CT evidence of steatosis. Signed: Murtaza Clemens MD Report Verified Date/Time:05/05/2018 17:19:54 Reading Location: [address] Reading Room Procedure Note Interface, External Ris In - 05/05/2018 5:22 PM CDT FINAL REPORT CLINICAL HISTORY: Recent pancreatitis, shock FINDINGS: Multiple axial images of the abdomen and pelvis were performed without intravenous contrast. Oral contrast was given. This exam was performed according to our departmental dose-optimization program, which includes automated exposure control, adjustment of the mA and/or kV according to patient size and/or use of the iterative reconstruction technique. Comparison:None. Lower chest: Bilateral dependent/compressive atelectasis versus pneumonitis. Small bilateral pleural effusions. Visualized cardiac contours normal. Liver: Enlarged, measuring 20 cm in craniocaudal dimension at the midclavicular line. Low density liver parenchyma, consistent with steatosis Gallbladder and biliary tree: Contracted Spleen: No significant findings. Adrenal Glands: No significant findings. Kidneys and ureters: 1.8 cm exophytic cyst arising from the superior left kidney. Stomach and Duodenum: Enteric tube tip in the distal stomach. Pancreas: Subtle peripancreatic fat stranding. No retroperitoneal fluid collection. No focal pancreatic parenchymal abnormality on this limited noncontrast study. Bowel: Fluid density stool to the level of the rectum. No bowel obstruction or pneumatosis intestinalis. Left colonic diverticulosis. Appendix: Nonvisualized. No right lower quadrant inflammatory changes. Bladder: Decompressed with a Paulson catheter Major vascular structures: No significant findings. Reproductive organs: Previous hysterectomy Other: Surgical clips in the bilateral inguinal regions. Subcutaneous edema. No intra-abdominal fluid collection to suggest abscess. Skeleton: No acute bony abnormality. IMPRESSION: Small bilateral pleural effusions and adjacent atelectasis versus pneumonitis. Subtle peripancreatic fat stranding without focal noncontrast parenchymal abnormality. No retroperitoneal fluid collection. Correlation with serology to evaluate for pancreatitis is recommended. Fluid density stool throughout the colon, nonspecific but suggesting diarrheal illness. Hepatomegaly with CT evidence of steatosis. Signed: Murtaza Clemens MD Report Verified Date/Time: 05/05/2018 17:19:54 Reading Location: [address] Reading Room Performing Organization Address City/[facility]/Zipcode Phone Number [facility] Troponin I (05/05/2018 3:53 PM CDT)Only the most recent of3 resultswithin the time period is included. Troponin I <0.01 0.00 - 0.03 ng/mL [facility] Specimen Blood - Line, Arterial Narrative Performed At [facility] Troponin I (TnI) levels must be interpreted in the context of the presenting symptoms and the clinical findings. Elevated TnI levels indicate myocardial damage, but are not specific for ischemic heart disease. Elevated TnI levels are seen in patients with other cardiac conditions (including myocarditis and congestive heart failure), and slight TnI elevations occur in patients with other conditions, including sepsis, renal failure, acidosis, acute neurological disease, and persistent tachyarrhythmia. Performing Organization Address City/State/Zipcode Phone Number [facility] [address] [place] [phone] CENTER ECHO W CONTRAST & DOPPLER (05/05/2018 9:52 AM CDT) Ejection Fraction [facility] Narrative Performed At Transthoracic Echocardiography Report (TTE) [facility] Demographics Patient Name WILLIAM, KATHRYNDate of Study 05/05/2018 [facility] [id number] GenderFemale Visit Number [id number] Clarence [id number] Number [id number] Number Date of Birth1960 Referring Physician Jaskaran Escoto Age57 year(s) Shagger French [place] [facility] Pre Physician Read Kwaku Fleming MD Fellow SUELLEN Noe Procedure Type of Study TTE procedure:2DECHO W/CONTRAST & DOPPLER (STAT) Indications:Respiratory failure or hypoxemia . Clinical History COPD Fibromyalgia Gallbladder Disease S/P Partial R Lobectomy HGB 7.4 HCT 24.4 % Contrast Medium: Definity. Amount - 3 ml Height: 63 inches Weight: 96.16 kg (212 lbs) BSA: 1.98 m^2 BMI: 37.55 kg/m^2 HR: 95 bpm BP: 83/45 mmHg Summary LV septal thickness is mhvdonzv-si-zwvfcpji increased. LV posterior wall thickness is normal . All of the LV segments are hyperkinetic . Global LV systolic function hyperdynamic . Estimated LVEF by qualitative assessment is increased (>70%) . The resting LVOT peak systolic pressure gradient is in the range of 88 mmHg. Normal diastolic function. Estimated peak systolic PA pressure is 60-65 mmHg + RA pressure. Signature Findings Rhythm/BPRegular sinus rhythm during the exam. Left Ventricle The LV endocardium is adequately visualized. LV septal thickness is pfyngbzv-cu-itwppzxk in creased. LV posterior wall thickness is normal . Al l of the LV segments are hyperkinetic . Gl obal LV systolic function hyperdynamic . Es timated LVEF by qualitative assessment is in creased (>70%) . No rmal diastolic function. Th e resting LVOT peak systolic pressure gradient is in the range of 88 mmHg. No rmal diastolic function. Left AtriumLA size is normal (16-34 ml/m2) . Right VentricleThe right ventricular chamber size and systolic fu nction are within normal limits. Right Atrium RA size is normal. Atrial SeptumNormal interatrial septum by available views. Aortic Valve Normal AoV structure. Mitral Valve Normal MV structure. Tr dianne mitral regurgitation. Tricuspid ValveTV structure is normal. A trace of tricuspid regurgitation. Es timated peak systolic PA pressure is 60-65 mmHg + RA pressure. Pulmonic Valve Normal PV structure and function by limited views an d Doppler. AortaAortic root size (SInus of Valsalva diameter) is no rmal . PericardiumNo pericardial effusion is visualized. IVC/SVC/PA/PV/PleuralThe inferior vena cava size is increased . Th e estimated RA pressure by IVC dynamics >20mmHg . Chambers/Structures Left Atrium LA Volume: 64.97 ml LA Area: 21.82 cm^2 LA Vol. Index: 33 ml/m^2 Left Ventricle LVIDd: 5.13 cm LV Septum Diastolic: 1.7 cm LV PW Diastolic: 1.06 cm Aorta Ao Root S of Debby.: 3.06 cm Doppler/Quantitative Measurements Mitral Valve MV Peak E-Wave: 0.96 m/sMV Peak A-Wave: 0.76 m/s E/A Ratio: 1.27 Peak Gradient: 3.71 mmHg Deceleration Time: 240.3 msec MV Yoni. Peak: Tissue Doppler E' Lateral Velocity: 0.13 m/s A' Lateral Velocity: 0.16 m/s E/E': 7.34 LVOT Peak Velocity: 4.69 m/sPeak Gradient: 88.07 mmHg Tricuspid Valve TR Velocity: 3.95 m/s TR Gradient: 62.42 mmHg Procedure Note Interface, External Ris In - 05/06/2018 7:58 AM CDT Transthoracic Echocardiography Report (TTE) Demographics Patient Name MADELAINE THOMAS Date of Study 05/05/2018 ANDREW Gender Female Visit Number [id number] Race Unknown Room Number 7218 Number Date of 1960 Referring Physician Jaskaran Escoto Age 57 year(s) Shagger French Jigna CS Interpreting [facility] Needs to be Pre Physician Read Kwaku Fleming MD Fellow SUELLEN Noe Procedure Type of Study TTE procedure:2DECHO W/CONTRAST & DOPPLER (STAT) Indications:Respiratory failure or hypoxemia . Clinical History COPD Fibromyalgia Gallbladder Disease S/P Partial R Lobectomy HGB 7.4 HCT 24.4 % Contrast Medium: Definity. Amount - 3 ml Height: 63 inches Weight: 96.16 kg (212 lbs) BSA: 1.98 m^2 BMI: 37.55 kg/m^2 HR: 95 bpm BP: 83/45 mmHg Summary LV septal thickness is czmlkgyy-de-kinrcdul increased. LV posterior wall thickness is normal . All of the LV segments are hyperkinetic . Global LV systolic function hyperdynamic . Estimated LVEF by qualitative assessment is increased (>70%) . The resting LVOT peak systolic pressure gradient is in the range of 88 mmHg. Normal diastolic function. Estimated peak systolic PA pressure is 60-65 mmHg + RA pressure. Signature Findings Rhythm/BP Regular sinus rhythm during the exam. Left Ventricle The LV endocardium is adequately visualized. LV septal thickness is vmvrkglm-dv-gyyhhyky increased. LV posterior wall thickness is normal . All of the LV segments are hyperkinetic . Global LV systolic function hyperdynamic . Estimated LVEF by qualitative assessment is increased (>70%) . Normal diastolic function. The resting LVOT peak systolic pressure gradient is in the range of 88 mmHg. Normal diastolic function. Left Atrium LA size is normal (16-34 ml/m2) . Right Ventricle The right ventricular chamber size and systolic function are within normal limits. Right Atrium RA size is normal. Atrial Septum Normal interatrial septum by available views. Aortic Valve Normal AoV structure. Mitral Valve Normal MV structure. Trace mitral regurgitation. Tricuspid Valve TV structure is normal. A trace of tricuspid regurgitation. Estimated peak systolic PA pressure is 60-65 mmHg + RA pressure. Pulmonic Valve Normal PV structure and function by limited views and Doppler. Aorta Aortic root size (SInus of Valsalva diameter) is normal . Pericardium No pericardial effusion is visualized. IVC/SVC/PA/PV/Pleural The inferior vena cava size is increased . The estimated RA pressure by IVC dynamics >20mmHg . Chambers/Structures Left Atrium LA Volume: 64.97 ml LA Area: 21.82 cm^2 LA Vol. Index: 33 ml/m^2 Left Ventricle LVIDd: 5.13 cm LV Septum Diastolic: 1.7 cm LV PW Diastolic: 1.06 cm Aorta Ao Root S of Debby.: 3.06 cm Doppler/Quantitative Measurements Mitral Valve MV Peak E-Wave: 0.96 m/s MV Peak A-Wave: 0.76 m/s E/A Ratio: 1.27 Peak Gradient: 3.71 mmHg Deceleration Time: 240.3 msec MV Yoni. Peak: Tissue Doppler E' Lateral Velocity: 0.13 m/s A' Lateral Velocity: 0.16 m/s E/E': 7.34 LVOT Peak Velocity: 4.69 m/s Peak Gradient: 88.07 mmHg Tricuspid Valve TR Velocity: 3.95 m/s TR Gradient: 62.42 mmHg Performing Organization Address City/[facility]/Zipcode Phone Number [facility]EM[facility] (05/05/2018 8:41 AM CDT) Hematocrit 23.0 (L) 36.0 - 45.0 % [facility] Specimen Blood, Arterial Performing Organization Address City/[facility]/Zipcode Phone Number [facility] [address] [place] [address] CENTER Blood gas, arterial (05/05/2018 8:40 AM CDT)Only the most recent of7 resultswithin the time period is included. pH, Arterial 7.34 (L) 7.35 - 7.45 [facility] pCO2, Arterial 50 (H) 35 - 45 mmHg [facility] pO2, Arterial 97 (H) 80 - 90 mmHg [facility] O2 Sat, Arterial 96.8 96.0 - 97.0 % [facility] HCO3, Arterial 26 21 - 29 mmol/L [facility] Base Excess, Arterial -0.1 -2.0 - 3.0 mmol/L [facility] Patient Temperature 37.5 C [facility] FIO2 30.0 % [facility] Specimen Blood, Arterial - Line, Arterial Performing Organization Address [facility] Phone Number [address] [address] [phone] [place] Hemoglobin-Stat Lab (05/05/2018 8:39 AM CDT) Hemoglobin 7.7 (L) 12.0 - 15.0 g/dL [facility] Specimen Blood, Arterial Performing Organization Address [facility] Phone Number [address] [address] [place] Lactic acid, arterial, whole blood (05/05/2018 8:39 AM CDT)Only the most recent of3 resultswithin the time period is included. Lactate, Art 0.8 0.5 - 2.2 mmol/L [facility] Specimen Blood, Arterial Narrative Performed At [facility] Effective 12/15/2015: Units/Reference Range Change New: 0.5-2.2 mmol/LPrevious: 5-20 mg/dL Performing Organization Address [facility] Phone Number [address] [address] [phone] [place] Sputum Culture + Gram Stain (05/05/2018 7:40 AM CDT) Result 2+ Normal respiratory cosme [facility] Gram Stain Result 4+ WBCs [facility] Gram Stain Result No epithelial cells [facility] Gram Stain Result 1+ yeast [facility] Specimen Tracheal - Endotracheal Performing Organization Address [facility] Phone Number [address] [address] [place] Urea Nitrogen, random urine (05/05/2018 7:40 AM CDT) Urea Nitrogen, Ur 170 mg/dL [facility] Specimen Urine - Urine, [place] Narrative Performed At [facility] Reference Range: No Normals Performing Organization Address [facility] Phone Number [address] [address] [place] Sodium, random urine (05/05/2018 7:40 AM CDT)Only the most recent of2 resultswithin the time period is included. Sodium Urine 23 meq/L [facility] Specimen Urine - Urine, [place] Narrative Performed At [facility] Reference Range: No Normals Performing Organization Address [facility] Phone Number [address] [address] [place] Creatinine, random urine (05/05/2018 7:40 AM CDT)Only the most recent of2 resultswithin the time period is included. Creatinine, Ur 67.0 mg/dL [facility] Specimen Urine - Urine, [place] Narrative Performed At [facility] Reference Range: No Normals Performing Organization Address [facility] Phone Number [address] [address] [place] XR chest 1 view portable / bedside (05/05/2018 4:42 AM CDT)Only the most recent of7 resultswithin the time period is included. Narrative Performed At FINAL REPORT [facility] CLINICAL INDICATION: Support lines. Comparison: 05/04/2018 The tip of an endotracheal tube is between the clavicles and kulwant. The cardiomediastinal contours are stable. The lung volumes remain low. Bilateral parenchymal opacities are unchanged. There is no pneumothorax. An enteric tube traverses examination to the upper abdomen. A right IJ CVC remains in place. Signed: Murtaza Clemens MD Report Verified Date/Time:05/05/2018 04:49:25 Reading Location: [address] Reading Room Procedure Note Interface, External Ris In - 05/05/2018 4:51 AM CDT FINAL REPORT CLINICAL INDICATION: Support lines. Comparison: 05/04/2018 The tip of an endotracheal tube is between the clavicles and kulwant. The cardiomediastinal contours are stable. The lung volumes remain low. Bilateral parenchymal opacities are unchanged. There is no pneumothorax. An enteric tube traverses examination to the upper abdomen. A right IJ CVC remains in place. Signed: Murtaza Clemens MD Report Verified Date/Time: 05/05/2018 04:49:25 Reading Location: [address] Reading Room Performing Organization Address City/State/Zipcode Phone Number [facility] XR abdomen / KUB 1 view (05/05/2018 4:42 AM CDT) Narrative Performed At FINAL REPORT [facility] CLINICAL HISTORY: NG tube placement COMPARISON: None. FINDINGS: A single supine view of a portion of the abdomen is submitted. The tip of an enteric tube overlies the expected position of the distal stomach. The visualized abdominal bowel gas pattern is unobstructed. There is no acute bony abnormality. Signed: Murtaza Clemens MD Report Verified Date/Time:05/05/2018 04:47:09 Reading Location: [address] Reading Room Procedure Note Interface, External Ris In - 05/05/2018 4:49 AM CDT FINAL REPORT CLINICAL HISTORY: NG tube placement COMPARISON: None. FINDINGS: A single supine view of a portion of the abdomen is submitted. The tip of an enteric tube overlies the expected position of the distal stomach. The visualized abdominal bowel gas pattern is unobstructed. There is no acute bony abnormality. Signed: Murtaza Clemens MD Report Verified Date/Time: 05/05/2018 04:47:09 Reading Location: [address] Reading Room Performing Organization Address City[facility] Phone Number [facility] Lactic acid, venous, whole blood (05/05/2018 4:42 AM CDT)Only the most recent of9 resultswithin the time period is included. Lactate, Venous 0.7 0.5 - 2.2 mmol/L [facility] Specimen Blood - Line, Arterial Narrative Performed At [facility] Effective 12/15/2015: Units/Reference Range Change New: 0.5-2.2 mmol/LPrevious: 5-20 mg/dL Performing Organization Address City[facility] [place] [address] CENTER Urinalysis w/Microscopic + Reflex to Culture (05/05/2018 2:04 AM CDT) Color, UA Red [facility] Clarity, UA Hazy [facility] Specific [place], UA 1.018 1.001 - 1.035 [facility] pH, UA 6.5 5.0 - 8.0 [facility] Protein, UA 100 mg/dL (A) Negative [facility] Glucose, UA Negative Negative [facility] Ketones, UA Negative Negative [facility] Bilirubin, UA Negative Negative [facility] Blood, UA Small (A) Negative [facility] Nitrite, UA Positive (A) Negative [facility] Leukocytes, UA Moderate (A) Negative [facility] Urobilinogen, UA 0.2 0.2 - 1.0 mg/dL [facility] RBC, UA 2 /HPF [facility] WBC, UA 38 /HPF [facility] Bacteria, UA Occasional [facility] Hyaline Casts, UA 3 /LPF [facility] Yeast Moderate [facility] Specimen Source [facility] Specimen Urine - Urine, [place] Performing Organization Address City[facility] Phone Number [address] [address] [phone] CENTER Urine culture (05/05/2018 2:04 AM CDT)Only the most recent of2 resultswithin the time period is included. Result DESHAUN ALBICANS (A) [facility] Specimen Urine - Urine, [place] Performing Organization Address City[facility] Phone Number [address] [address] [phone] CENTER Type and screen, automated (05/05/2018 1:51 AM CDT)Only the most recent of2 resultswithin the time period is included. ABO/RH AUTOMATED (BEAKER) O POSITIVE [facility] Ab Scrn NEGATIVE [facility] Specimen Blood Performing Organization Address City[facility] Phone Number [address] [address] Procalcitonin (05/05/2018 1:47 AM CDT)Only the most recent of2 resultswithin the time period is included. Procalcitonin 2.43 (H) <0.05 ng/mL [facility] Specimen Blood Narrative Performed At [facility] SEPSIS RISK (ng/mL) Low:0.05-0.50 Intermediate: 0.51-2.00 High: >=2.01 Performing Organization Address [facility] Phone Number [address] [address] CENTER B-type Natriuretic Factor (BNP) (05/05/2018 12:57 AM CDT)Only the most recent of2 resultswithin the time period is included. BNP 124 (H) 0 - 100 pg/mL [facility] Specimen Blood Performing Organization Address [facility] Phone Number [address] [address] CENTER Lipase (05/05/2018 12:57 AM CDT)Only the most recent of3 resultswithin the time period is included. Lipase 47 8 - 78 U/L [facility] Specimen Blood Performing Organization Address [facility] Phone Number [address] [address] CENTER Hepatic function panel (05/05/2018 12:57 AM CDT)Only the most recent of2 resultswithin the time period is included. Protein, Total 5.5 (L) 6.0 - 8.3 gm/dL [facility] Albumin 2.7 (L) 3.5 - 5.0 g/dL [facility] Total Bilirubin 0.8 0.2 - 1.2 mg/dL [facility] Bilirubin, Direct 0.6 (H) 0.1 - 0.5 mg/dL [facility] Alkaline Phosphatase 133 40 - 150 U/L [facility] AST 38 (H) 5 - 34 U/L [facility] ALT 55 6 - 55 U/L [facility] Specimen Blood Performing Organization Address [facility] Phone Number [address] [address] [phone] [place] POC-Lactic Acid, Arterial (05/04/2018 11:52 PM CDT) POC-Lactic Acid, 0.9Comment: TESTED AT 0.4 - 1.3 mmol/L [facility] Arterial [address] [address] Specimen Blood Performing Organization Address [facility] Phone Number [address] [address] [place] POCT-HEMATOCRIT (05/04/2018 11:47 PM CDT)Only the most recent of2 resultswithin the time period is included. POC-Hematocrit 25 (L)Comment: TESTED AT 36 - 45 % [address] [address] Specimen Blood Performing Organization Address [facility] Phone Number [address] [address] [phone] [place] POCT-HEMOGLOBIN (05/04/2018 11:47 PM CDT)Only the most recent of2 resultswithin the time period is included. POC-Hemoglobin 8.5 (L)Comment: TESTED AT 12.0 - 15.0 g/dL [address] [address]IDXBFT AT [address] [address] Specimen Blood Performing Organization Address [facility] Phone Number [address] [address] [phone] [place] POCT-GLUCOSE (05/04/2018 11:47 PM CDT)Only the most recent of2 resultswithin the time period is included. POC-Glucose 116 (H)Comment: TESTED AT 70 - 110 mg/dL [address] [address] Specimen Blood Performing Organization Address [facility] Phone Number [address] [address] [phone] [place] POC-Sodium (05/04/2018 11:47 PM CDT)Only the most recent of2 resultswithin the time period is included. POC-Sodium 127 (L)Comment: TESTED AT 135 - 148 meq/L [address] [place] [address] Specimen Blood Performing Organization Address City[facility] Phone Number [address] [address] [place] POC-Potassium (05/04/2018 11:47 PM CDT)Only the most recent of2 resultswithin the time period is included. [facility]-Potassium 4.8Comment: TESTED AT [facility] 3.6 - 5.5 meq/L [address] [address] Specimen Blood Performing Organization Address City[facility] Phone Number [address] [address] [phone] [place] POC-Calcium ionized (05/04/2018 11:47 PM CDT)Only the most recent of2 resultswithin the time period is included. POC-Calcium Ionized 1.20Comment: TESTED AT 1.12 - 1.27 mmol/L [address] [address] Specimen Blood Performing Organization Address City[facility] Phone Number [address] [address] [phone] [place] POC-Blood gases, arterial (05/04/2018 11:47 PM CDT) Temp. Celsius-POC 36.1 [facility] FIO2-POC 32Comment: TESTED AT [address] [place] [address] pH, Arterial-POC 7.192 (LL) 7.350 - 7.450 [facility] PCO2, Arterial-POC 63.6 (H) 35.0 - 45.0 mm Hg [facility] PO2, Arterial-POC 71.0 (L) 80.0 - 90.0 mm Hg [facility] SO2, Arterial-POC 90.0 (L) 96.0 - 97.0 % [facility] HCO3, Arterilal-POC 24.7 21.0 - 29.0 meq/L [facility] BE, Arterial-POC -4.0 (L) -2.0 - 3.0 meq/L [facility] Specimen Blood Performing Organization Address City/[facility]/Zipcode Phone Number [address] [address] [phone] [place] Blood culture (05/04/2018 4:57 PM CDT)Only the most recent of4 resultswithin the time period is included. Result No growth in 5 days [facility] Specimen Blood - Central Venous Line Performing Organization Address City/State/Zipcode Phone Number [address] [address] [place] POC-Blood gases, venous (05/04/2018 4:42 PM CDT) Temp. Celsius-POC 37.0 [facility] FIO2-POC Comment: TESTED AT [address] [address] pH, Venous-POC 7.224 (L) 7.320 - 7.420 [facility] PCO2, Venous-POC 63.8 (H) 41.0 - 51.0 mm Hg [facility] PO2, Venous-POC 31.0 25.0 - 40.0 mm Hg [facility] SO2, Venous-POC 46.0 40.0 - 70.0 % [facility] HCO3, Venous-POC 26.3 21.0 - 29.0 meq/L [facility] BE, Venous-POC -1.0 -2.0 - 3.0 meq/L [facility] Specimen Blood Performing Organization Address [facility] Phone Number [address] [address] [phone] [place] POC-Lactic Acid, Venous (05/04/2018 12:53 PM CDT) POC-Lactic Acid, Venous 1.1Comment: TESTED AT 0.9 - 1.7 mmol/L [address] [address] Specimen Blood Performing Organization Address [facility] [place] [address] [place] aPTT (05/04/2018 4:35 AM CDT)Only the most recent of6 resultswithin the time period is included. PTT 38.0 (H) 22.5 - 36.0 seconds [facility] Specimen Blood Performing Organization Address [facility] Phone Number [address] [address] [place] Prothrombin time/INR (05/04/2018 4:35 AM CDT)Only the most recent of8 resultswithin the time period is included. Protime 14.0 11.7 - 14.7 seconds [facility] INR 1.1 <=5.9 [facility] Specimen Blood Narrative Performed At [facility] RECOMMENDED COUMADIN/WARFARIN INR THERAPY RANGES STANDARD DOSE: 2.0 - 3.0 Includes: PROPHYLAXIS for venous thrombosis, systemic embolization; TREATMENT for venous thrombosis and/or pulmonary embolus. HIGH RISK: Target INR is 2.5-3.5 for patients with mechanical heart valves. Performing Organization Address City[facility] Phone Number [address] [address] [phone] [place] CBC (Hemogram only) (05/04/2018 4:35 AM CDT)Only the most recent of6 resultswithin the time period is included. WBC 12.7 (H) 3.5 - 10.5 K/L [facility] RBC 2.50 (L) 3.93 - 5.22 M/L [facility] Hemoglobin 8.3 (L) 11.2 - 15.7 GM/DL [facility] Hematocrit 27.6 (L) 34.1 - 44.9 % [facility] MCV 110.4 (H) 79.4 - 94.8 fL [facility] MCH 33.2 (H) 25.6 - 32.2 pg [facility] MCHC 30.1 (L) 32.2 - 35.5 GM/DL [facility] RDW 16.8 (H) 11.7 - 14.4 % [facility] Platelets 314 150 - 450 K/CU MM [facility] MPV 10.3 9.4 - 12.3 fL [facility] nRBC 0 0 - 0 /100 WBC [facility] Specimen Blood Performing Organization Address City/State/Zipcode Phone Number [facility] [address] [place] [address] CENTER Comprehensive metabolic panel (05/04/2018 4:35 AM CDT)Only the most recent of7 resultswithin the time period is included. Protein, Total 6.2 6.0 - 8.3 gm/dL [facility] Albumin 3.0 (L) 3.5 - 5.0 g/dL [facility] Alkaline Phosphatase 160 (H) 40 - 150 U/L [facility] Total Bilirubin 1.1 0.2 - 1.2 mg/dL [facility] Sodium 131 (L) 136 - 145 meq/L [facility] Potassium 4.6 3.5 - 5.1 meq/L [facility] Chloride 98 98 - 107 meq/L [facility] CO2 23 22 - 29 meq/L [facility] BUN 39 (H) 7 - 21 mg/dL [facility] Creatinine 3.86 (H) 0.57 - 1.25 mg/dL [facility] Glucose 104 70 - 105 mg/dL [facility] Calcium 9.1 8.4 - 10.2 mg/dL [facility] AST 57 (H) 5 - 34 U/L [facility] ALT 75 (H) 6 - 55 U/L [facility] EGFR 12Comment: ESTIMATED GFR mL/min/1.73 sq m [facility] IS NOT ACCURATE [facility] CREATININE CLEARANCE IN PREDICTING GLOMERULAR FILTRATION RATE. ESTIMATED GFR IS NOT APPLICABLE FOR DIALYSIS PATIENTS. Specimen Blood Performing Organization Address City/State/Zipcode Phone Number [facility] [address] [place] [address] [phone] CENTER Blood gas, venous (05/03/2018 7:08 AM CDT)Only the most recent of8 resultswithin the time period is included. pH, Jordan 7.36 7.32 - 7.42 [facility] pCO2, Jordan 45 41 - 51 mmHg [facility] pO2, Jordan 45 (H) 25 - 40 mmHg [facility] O2 Sat, Jordan 79.4 (H) 40.0 - 70.0 % [facility] HCO3, Jordan 25 21 - 29 mmol/L [facility] Base Excess, Jordan -0.5 -2.0 - 3.0 mmol/L [facility] Patient Temperature 37.0 C [facility] FIO2 20.0 % [facility] Specimen Blood - Arm, Left Performing Organization Address [facility] Phone Number [address] [address] [place] Calcium (05/02/2018 4:49 PM CDT)Only the most recent of4 resultswithin the time period is included. Calcium 8.7 8.4 - 10.2 mg/dL [facility] Specimen Blood - Arm, Right Performing Organization Address [facility] Phone Number [address] [address] [phone] [place] Calcium, Ionized (05/01/2018 4:11 AM CDT)Only the most recent of5 resultswithin the time period is included. Calcium, Ion 1.10 (L) 1.12 - 1.27 mmol/L [facility] pH, Blood 7.40 [facility] Specimen Blood Performing Organization Address [facility] Phone Number [address] [address] [place] Potassium (04/30/2018 8:32 PM CDT)Only the most recent of10 resultswithin the time period is included. Potassium 4.1Comment: Specimen slightly 3.5 - 5.1 meq/L [facility] hemolyzed [facility] Specimen Blood Performing Organization Address [facility] Phone Number [address] [address] [place] ECHOCARDIOGRAM REPORT - SCAN (04/29/2018 5:50 PM CDT) Narrative Performed At 2D Echo W/Doppler(CW/PW/Color) (04/29/2018 3:50 PM CDT) Ejection Fraction [facility] Narrative Performed At Transthoracic Echocardiography Report (TTE) [facility] Dem[facility] Patient NameFINNEY, MADELAINE Date of Study 04/29/2018 ANDREW Female Visit [id number] Unknown Room Number 7102 Number Date of 1960Referring Jaskaran Escoto Physician Age 57 year(s)Shagger Jhoana Briceno, NB, RDCS,RVT,RDMS Director Trial Carlos Fleming MD Physician Procedure Type of Study TTE procedure:2DECHO W DOPPLER(CW/PW/COLOR) Indications:Known or suspected heart failure. Clinical History COPD,PARTIAL LUNG REMOVAL (RIGHT) Height: 0 inches Weight: 90.72 kg (200 lbs) BSA: 0 m^2 BMI: 0 kg/m^2 HR: 88 bpm BP: 83/61 mmHg Summary The left ventricle is chamber size (by PSLAX dimension) is normal (female - LVIDd 3.8-5.2cm) . Mild concentric LV hypertrophy. Global LV systolic function hyperdynamic . Estimated LVEF by qualitative assessment is increased (>70%) . Grade 1 diastolic dysfunction (impaired relaxation and low-normal LA pressure). Estimated peak systolic PA pressure is 40-45 mmHg . No evidence of pericardial effusion. Signature Findings Left Ventricle The left ventricle is chamber size (by PSLAX di mension) is normal (female - LVIDd 3.8-5.2cm) . Mi ld concentric LV hypertrophy. Global LV systolic fu nction hyperdynamic . Estimated LVEF by qu alitative assessment is increased (>70%) . Grade 1 diastolic dysfunction (impaired relaxation and lo w-normal LA pressure). Left AtriumLA size is normal . Right VentricleNormal right ventricle structure and function. Right Atrium Normal right atrium. Aortic Valve Mild AoV cusp thickening. Mitral Valve Normal MV structure. Tricuspid ValveA trace of tricuspid regurgitation. Es timated peak systolic PA pressure is 40-45 mmHg . Pulmonic Valve Normal PV structure and function by limited views an d Doppler. AortaAortic root size (SInus of Valsalva diameter) is no rmal . PericardiumNo evidence of pericardial effusion. IVC/SVC/PA/PV/PleuralThe estimated RA pressure by IVC dynamics 5-10mmHg . Chambers/Structures Left Atrium LA Dimension: 3.77 cmLA Area: 21.56 cm^2 LA Volume: 73.27 ml LA Vol. Index: 0 ml/m^2 Left Ventricle LVIDd: 3.98 cm LV Septum Diastolic: 1.19 cm LV PW Diastolic: 1.21 cm LVEDV Sahu's:97.38 ml LVEDVI: 0 ml/m^2 LVOT Diameter: 2.23 cm Aorta Ao Root S of Debby.: 3.33 cm Doppler/Quantitative Measurements LVOT Peak Velocity: 1.37 m/s Peak Gradient: 7.51 mmHg Mean Velocity: 0.87 m/s Mean Gradient: 3.71 mmHg LVOT Diameter: 2.23 cmLVOT VTI: 23.01 cm LVOT Area: 3.91 cm^2LVOT SV:89.82 ml LVOT CO: 7.9 l/minLVOT CI: 0 l/min/m^2 Procedure Note Interface, External Ris In - 04/29/2018 5:17 PM CDT Transthoracic Echocardiography Report (TTE) Demographics Patient Name MADELAINE THOMAS Date of Study 04/29/2018 ANDREW Gender Female Visit Number [id number] Race Unknown Room Number 7102 Number Date of 1960 Referring Jaskaran Escoto Physician Age 57 year(s) Shagger MINDY Cortez, RDCS,RVT,RDMS Director Trial Carlos Saldana Interpreting Kwaku Fleming MD Physician Procedure Type of Study TTE procedure:2DECHO W DOPPLER(CW/PW/COLOR) Indications:Known or suspected heart failure. Clinical History COPD,PARTIAL LUNG REMOVAL (RIGHT) Height: 0 inches Weight: 90.72 kg (200 lbs) BSA: 0 m^2 BMI: 0 kg/m^2 HR: 88 bpm BP: 83/61 mmHg Summary The left ventricle is chamber size (by PSLAX dimension) is normal (female - LVIDd 3.8-5.2cm) . Mild concentric LV hypertrophy. Global LV systolic function hyperdynamic . Estimated LVEF by qualitative assessment is increased (>70%) . Grade 1 diastolic dysfunction (impaired relaxation and low-normal LA pressure). Estimated peak systolic PA pressure is 40-45 mmHg . No evidence of pericardial effusion. Signature Findings Left Ventricle The left ventricle is chamber size (by PSLAX dimension) is normal (female - LVIDd 3.8-5.2cm) . Mild concentric LV hypertrophy. Global LV systolic function hyperdynamic . Estimated LVEF by qualitative assessment is increased (>70%) . Grade 1 diastolic dysfunction (impaired relaxation and low-normal LA pressure). Left Atrium LA size is normal . Right Ventricle Normal right ventricle structure and function. Right Atrium Normal right atrium. Aortic Valve Mild AoV cusp thickening. Mitral Valve Normal MV structure. Tricuspid Valve A trace of tricuspid regurgitation. Estimated peak systolic PA pressure is 40-45 mmHg . Pulmonic Valve Normal PV structure and function by limited views and Doppler. Aorta Aortic root size (SInus of Valsalva diameter) is normal . Pericardium No evidence of pericardial effusion. IVC/SVC/PA/PV/Pleural The estimated RA pressure by IVC dynamics 5-10mmHg . Chambers/Structures Left Atrium LA Dimension: 3.77 cm LA Area: 21.56 cm^2 LA Volume: 73.27 ml LA Vol. Index: 0 ml/m^2 Left Ventricle LVIDd: 3.98 cm LV Septum Diastolic: 1.19 cm LV PW Diastolic: 1.21 cm LVEDV Sahu's:97.38 ml LVEDVI: 0 ml/m^2 LVOT Diameter: 2.23 cm Aorta Ao Root S of Debby.: 3.33 cm Doppler/Quantitative Measurements LVOT Peak Velocity: 1.37 m/s Peak Gradient: 7.51 mmHg Mean Velocity: 0.87 m/s Mean Gradient: 3.71 mmHg LVOT Diameter: 2.23 cm LVOT VTI: 23.01 cm LVOT Area: 3.91 cm^2 LVOT SV:89.82 ml LVOT CO: 7.9 l/min LVOT CI: 0 l/min/m^2 Performing Organization Address City/State/Zipcode Phone Number [facility] US Renal with Doppler (04/29/2018 9:50 AM CDT) Narrative Performed At FINAL REPORT [facility] Ultrasound of the Kidneys and Doppler Evaluation, 04/29/2018. Clinical History:ENRIQUE. Discussion: Sonographic evaluation of the kidneys is performed.In addition, color Doppler and spectral waveform analysis evaluations of the renal vasculature are performed. Right kidney:12.1 cm in length, normal in size, with cortical thickness of 1.5 cm.Normal cortical echogenicity.No mass.No shadowing calculus.No hydronephrosis. Left kidney: 11.8 cm in length, normal in size, with cortical thickness of 1.5 cm.Normal cortical echogenicity.No mass.No shadowing calculus.No hydronephrosis. Fluid:No perinephric fluid. Bladder:A Paulson catheter is present. Doppler:Segments of the main renal arteries and renal veins sampled demonstrate normal flow. There is elevation of the resistive indices obtained at the renal parenchymal arcuate arteries, ranging from 0.77 to 0.85. Impression: 1. Normal appearance of the kidneys bilaterally. No evidence of nephrolithiasis or hydronephrosis. 2. Unremarkable renal doppler evaluation except for elevation of the resistive indices, a nonspecific finding seen in a variety of renal diseases. Signed: Austin Ken MD Report Verified Date/Time:04/29/2018 14:53:07 Reading Location: [facility] P006J Ultrasound Reading Room Procedure Note Interface, External Ris In - 04/29/2018 2:55 PM CDT FINAL REPORT Ultrasound of the Kidneys and Doppler Evaluation, 04/29/2018. Clinical History: ENRIQUE. Discussion: Sonographic evaluation of the kidneys is performed. In addition, color Doppler and spectral waveform analysis evaluations of the renal vasculature are performed. Right kidney: 12.1 cm in length, normal in size, with cortical thickness of 1.5 cm. Normal cortical echogenicity. No mass. No shadowing calculus. No hydronephrosis. Left kidney: 11.8 cm in length, normal in size, with cortical thickness of 1.5 cm. Normal cortical echogenicity. No mass. No shadowing calculus. No hydronephrosis. Fluid: No perinephric fluid. Bladder: A Paulson catheter is present. Doppler: Segments of the main renal arteries and renal veins sampled demonstrate normal flow. There is elevation of the resistive indices obtained at the renal parenchymal arcuate arteries, ranging from 0.77 to 0.85. Impression: 1. Normal appearance of the kidneys bilaterally. No evidence of nephrolithiasis or hydronephrosis. 2. Unremarkable renal doppler evaluation except for elevation of the resistive indices, a nonspecific finding seen in a variety of renal diseases. Signed: Austin Ken MD Report Verified Date/Time: 04/29/2018 14:53:07 Reading Location: [facility] P006 Ultrasound Reading Room Performing Organization Address City/State/Zipcode Phone Number [facility] HIV-1 Antigen with HIV-1/2 Antibody (04/29/2018 4:31 AM CDT) HIV-1 Antigen with HIV 1&2 NON-REACTIVE Nonreactive [facility] Antibody [facility] Specimen Blood Performing Organization Address City/State/Zipcode Phone Number [address] [address] CENTER Platelet count (04/28/2018 3:16 PM CDT) Platelets 105 (L) 150 - 450 K/CU MM [facility] Specimen Blood - Central Venous Line Narrative Performed At Please draw in citrate (blue top) tube at [facility] next blood draw Performing Organization Address City/State/Zipcode Phone Number [facility] [address] [place] [address] CENTER MR abdomen without IV contrast MRCP (04/28/2018 2:02 PM CDT) Narrative Performed At FINAL REPORT [facility] INDICATION: 57-year-old female with abdominal pain, pancreatitis, and abnormal liver function tests. COMPARISON: Abdomen ultrasound exam April 27, 2018 TECHNIQUE: MR of the Abdomen with MRCP including 3-D reconstructions. Intravenous contrast was not used. FINDINGS: MRCP images demonstrate normal caliber of the common bile duct (5 mm diameter). There is focal signal loss in the downstream left hepatic duct which is probably artifact rather than stricture as the left intrahepatic bile ducts are not dilated. The gallbladder is distended measuring approximately 14 cm in length and 4.5 cm in cross-section. No filling defect in the gallbladder that would indicate gallstones. No filling defect in the bile ducts that would indicate choledocholithiasis. There is diffuse loss of signal on the liver parenchyma on out of phase imaging representing hepatic steatosis. Liver appears mildly enlarged. No suspicious liver lesion or mass demonstrated. There is a tiny amount of fluid in the lesser sac and extending into the left paracolic gutter, in keeping with diagnosis of pancreatitis. No pancreatic mass or pancreatic ductal dilatation is demonstrated. Spleen, kidneys, adrenal glands, visualized bowel loops are unremarkable. Bilateral tiny pleural effusions and mild dependent body wall edema is noted. No suspicious marrow signal abnormality. IMPRESSION: No evidence of cholelithiasis or choledocholithiasis. Common bile duct is normal in diameter on MRCP. Moderate to severe hepatic steatosis. Small amount of fluid in the lesser sac and left paracolic gutter, in keeping with pancreatitis. Bilateral small pleural effusions and mild dependent body wall edema, may also be related to pancreatitis. Signed: Selwyn Laboy MD Report Verified Date/Time:04/29/2018 15:19:21 Reading Location: [facility] C013Y CT Body Reading Room Procedure Note Interface, External Ris In - 04/29/2018 3:21 PM CDT FINAL REPORT INDICATION: 57-year-old female with abdominal pain, pancreatitis, and abnormal liver function tests. COMPARISON: Abdomen ultrasound exam April 27, 2018 TECHNIQUE: MR of the Abdomen with MRCP including 3-D reconstructions. Intravenous contrast was not used. FINDINGS: MRCP images demonstrate normal caliber of the common bile duct (5 mm diameter). There is focal signal loss in the downstream left hepatic duct which is probably artifact rather than stricture as the left intrahepatic bile ducts are not dilated. The gallbladder is distended measuring approximately 14 cm in length and 4.5 cm in cross-section. No filling defect in the gallbladder that would indicate gallstones. No filling defect in the bile ducts that would indicate choledocholithiasis. There is diffuse loss of signal on the liver parenchyma on out of phase imaging representing hepatic steatosis. Liver appears mildly enlarged. No suspicious liver lesion or mass demonstrated. There is a tiny amount of fluid in the lesser sac and extending into the left paracolic gutter, in keeping with diagnosis of pancreatitis. No pancreatic mass or pancreatic ductal dilatation is demonstrated. Spleen, kidneys, adrenal glands, visualized bowel loops are unremarkable. Bilateral tiny pleural effusions and mild dependent body wall edema is noted. No suspicious marrow signal abnormality. IMPRESSION: No evidence of cholelithiasis or choledocholithiasis. Common bile duct is normal in diameter on MRCP. Moderate to severe hepatic steatosis. Small amount of fluid in the lesser sac and left paracolic gutter, in keeping with pancreatitis. Bilateral small pleural effusions and mild dependent body wall edema, may also be related to pancreatitis. Signed: Selwyn Laboy MD Report Verified Date/Time: 04/29/2018 15:19:21 Reading Location: [facility] B1 C013Y CT Body Reading Room Performing Organization Address City/State/Zipcode Phone Number [facility] Hepatitis C antibody (04/28/2018 9:51 AM CDT) Hepatitis C Ab NON-REACTIVE Nonreactive [facility] Specimen Blood - Central Venous Line Performing Organization Address City/State/Zipcode Phone Number [address] [address] [place] Hepatitis A antibody, IgM (04/28/2018 9:51 AM CDT) Hep A IgM HEPATITIS A TEST NEGATIVE Nonreactive [facility] Specimen Blood - Central Venous Line Performing Organization Address [facility] Phone Number [address] [address] [place] Hepatitis B core antibody, IgM (04/28/2018 9:51 AM CDT) Hep B C IgM NON-REACTIVE Nonreactive [facility] Specimen Blood - Central Venous Line Performing Organization Address [facility] Phone Number [address] [address] [place] Hepatitis B surface antigen (04/28/2018 9:51 AM CDT) hepatitis B Surface Ag NON-REACTIVE Nonreactive [facility] Specimen Blood - Central Venous Line Performing Organization Address [facility] Phone Number [address] [address] [place] Hemoglobin A1c (04/28/2018 9:51 AM CDT)Only the most recent of2 resultswithin the time period is included. Hemoglobin A1C 5.5 4.3 - 6.1 % [facility] Specimen Blood - Central Venous Line Performing Organization Address [facility] Phone Number [address] [address] [phone] CENTER Acetaminophen level (04/28/2018 9:51 AM CDT) Acetaminophen Level <5.7 (L) 10.0 - 30.0 ug/mL [facility] Specimen Blood - Central Venous Line Narrative Performed At [facility] Therapeutic Range: 10.0-30.0 g/mL Toxic Levels:>200.0 g/mL Performing Organization Address [facility] Phone Number [address] [address] [place] Protein, random urine (04/28/2018 9:43 AM CDT) Protein, Urine 191 (H) 0 - 14 mg/dL [facility] Specimen Urine - Urine, Paulson Performing Organization Address [facility] Phone Number [address] [address] [phone] [place] Peripheral Blood Smear - Hold only (04/28/2018 8:38 AM CDT)Only the most recent of2 resultswithin the time period is included. Peripheral Smear Save saved [facility] Specimen Blood - Central Venous Line Performing Organization Address [facility] Phone Number [address] [address] [place] Reticulocyte count (04/28/2018 8:38 AM CDT) % Retic 3.6 (H) 0.5 - 1.7 % [facility] Specimen Blood - Central Venous Line Performing Organization Address [facility] Phone Number [address] [address] [place] Haptoglobin (04/28/2018 8:38 AM CDT) Haptoglobin 164 14 - 258 mg/dL [facility] Specimen Blood - Central Venous Line Performing Organization Address [facility] Phone Number [address] [address] [phone] [place] Manual Differential (04/28/2018 2:55 AM CDT) % Neutros (manual) 85 % [facility] % Lymphs (manual) 7 % [facility] % Monos (manual) 1 % [facility] % Eos (manual) 1 % [facility] % Baso (manual) 0 % [facility] % Bands (manual) 5 0 - 10 % [facility] % Atypical Lymphs 1 (H) 0 - 0 % [facility] # Neutros (manual) 4.42 1.80 - 8.00 K/L [facility] # Lymphs (manual) 0.36 (L) 1.48 - 4.50 K/L [facility] # Monos (manual) 0.05 0.00 - 1.30 K/L [facility] # Eos (manual) 0.05 0.00 - 0.50 K/L [facility] # Baso (manual) 0.00 0.00 - 0.20 K/L [facility] # Bands (manual) 0.3 0.0 - 0.8 K/L [facility] # Atypical Lymphs 0.05 (H) 0.00 - 0.00 K/L [facility] Total Counted 100 [facility] Bands plus Segmented 4.[address] [facility] Neutrophils [facility]ENTER nRBC (manual) 1 (H) 0 - 0 /100 WBC [facility] Platelet Morphology Normal [facility] RBC Morphology Normal [facility] Vacuolated Neutrophils Present [facility] Specimen Blood Performing Organization Address City/State/Zipcode Phone Number [facility] [address] [place] [address] CENTER PT/aPTT (04/28/2018 2:55 AM CDT) Protime 16.2 (H) 11.7 - 14.7 seconds [facility] INR 1.3 <=5.9 [facility] PTT 26.9 22.5 - 36.0 seconds [facility] Specimen Blood Narrative Performed At [facility] RECOMMENDED COUMADIN/WARFARIN INR THERAPY RANGES STANDARD DOSE: 2.0 - 3.0 Includes: PROPHYLAXIS for venous thrombosis, systemic embolization; TREATMENT for venous thrombosis and/or pulmonary embolus. HIGH RISK: Target INR is 2.5-3.5 for patients with mechanical heart valves. Performing Organization Address [facility] Phone Number [address] [address] [phone] CENTER C-Reactive Protein (04/28/2018 2:55 AM CDT)Only the most recent of2 resultswithin the time period is included. CRP 12.99 (H) 0.00 - 0.50 mg/dL [facility] Specimen Blood Performing Organization Address [facility] Phone Number [address] [address] CENTER Fibrinogen (04/28/2018 2:55 AM CDT)Only the most recent of2 resultswithin the time period is included. Fibrinogen 328 225 - 434 mg/dl [facility] Specimen Blood Performing Organization Address [facility] Phone Number [address] [address] [phone] CENTER Lactate dehydrogenase (LDH) (04/28/2018 2:55 AM CDT)Only the most recent of2 resultswithin the time period is included. LDH 1,138 (H) 125 - 220 U/L [facility] Specimen Blood Performing Organization Address [facility] Phone Number [address] [address] CENTER Lipid panel (04/28/2018 2:55 AM CDT)Only the most recent of2 resultswithin the time period is included. Triglycerides 322 mg/dL [facility] Cholesterol 131 mg/dL [facility] HDL 6 mg/dL [facility] LDL Calculated 61 mg/dL [facility] Specimen Blood Narrative Performed At [facility] Triglyceride Reference Range: Low Risk <150 [id number] High Risk 200-499 Very High Risk>=500 Cholesterol Reference Range: Low Risk <200 [id number] High Risk>240 HDL Cholesterol Reference Range: Low Risk >=60 High Risk <40 LDL Cholesterol Reference Range: Optimal<100 Near [id number] Very High >=190 Performing Organization Address City/State/Zipcode Phone Number [facility] [address] [place] [address] CENTER Venous doppler arms bilateral (04/27/2018 4:30 PM CDT) Ejection Fraction [facility] Impressions Performed At Right Impression [facility] 1. There is no deep venous obstruction in the jugular and subclavian veins. Left Impression 1. There is no deep venous obstruction in the subclavian vein. 2. The jugular vein was not visualized due to lines. Conclusions Summary Venous duplex imaging and compression of the bilateral upper extremities was performed. The veins were adequately visualized. The bilateral venous systems were patent and compressible with no evidence of thrombus. *Limited exam per MD order. Signature Velocities are measured in cm/s ; Diameters are measured in cm Narrative Performed At [facility] - Upper Extremities Veins [facility] Demographics Patient Name MADELAINE THOMASDate of Study04/27/2018 ANDREW [id number] Visit Number [id number] Gender Female Accession Number [id number] Date of Birth1960 [facility] Room [id number] Giovanna SonographerFrench JimenezInterpreting ALMA PeñaT Physician, CARLEEN Procedure Type of Study: Veins: Upper Extremities Veins, VENOUS DOPPLER ARMS, BILATERAL. Indications for Study:Thrombosis . Patient Status:STAT. Study Location:Portable. Technical Quality:Adequate visualization. Risk Factors History of Disease + + + + !Diagnosis !Date !Comments ! + + + + !Other ! !Obesity! + + + + Procedure Note Interface, External Ris In - 05/01/2018 6:54 AM CDT [facility] - Upper Extremities Veins Demographics Patient Name MADELAINE THOMAS Date of Study 04/27/2018 ANDREW Age 57 Visit Number [id number] Gender Female Accession Number [id number] Date of 1960 [facility] Room Number 7102 Physician HAZEL Shagger French Jimenez Interpreting ALMA PeñaT Physician , CARLEEN Procedure Type of Study: Veins: Upper Extremities Veins, VENOUS DOPPLER ARMS, BILATERAL. Indications for Study:Thrombosis . Patient Status:STAT. Study Location:Portable. Technical Quality:Adequate visualization. Risk Factors History of Disease + + + + !Diagnosis !Date !Comments ! + + + + !Other ! !Obesity ! + + + + Impressions Right Impression 1. There is no deep venous obstruction in the jugular and subclavian veins. Left Impression 1. There is no deep venous obstruction in the subclavian vein. 2. The jugular vein was not visualized due to lines. Conclusions Summary Venous duplex imaging and compression of the bilateral upper extremities was performed. The veins were adequately visualized. The bilateral venous systems were patent and compressible with no evidence of thrombus. *Limited exam per MD order. Signature Velocities are measured in cm/s ; Diameters are measured in cm Performing Organization Address [facility] Phone Number [facility] CPACS Anti-Nuclear Antibody (ANTONIETA) (04/27/2018 12:15 PM CDT) ANTONIETA Negative Negative [facility] Specimen Blood - Central Venous Line Narrative Performed At [facility] Test performed by IFA method. Test performed by IFA method. Performing Organization Address [facility] Phone Number [address] [address] CENTER Iron, TIBC, % sat. (without ferritin) (04/27/2018 8:26 AM CDT) Iron 40 40 - 160 ug/dL [facility] TIBC 111 (L) 250 - 450 ug/dL [facility] Iron % Saturation 36 20 - 55 % [facility] Specimen Blood - Central Venous Line Performing Organization Address [facility] Phone Number [address] [address] [place] Folate, RBC (04/27/2018 8:26 AM CDT) Folate, Rbc 590 >280 ng/mL RBC [facility] Specimen Blood - Central Venous Line Narrative Performed At Performing Lab [facility] [address] [address] Beti Vega MD, PhD, KARRI Performing Organization Address [facility] Phone Number [facility] [address] [address] [place] [address] Ferritin (04/27/2018 8:26 AM CDT) Ferritin 4,542 (H) 5 - 275 ng/mL [facility] Specimen Blood - Central Venous Line Performing Organization Address [facility] Phone Number [address] [address] [phone] [place] Vitamin B12 (04/27/2018 8:26 AM CDT) Vitamin B12 >2000 (H) 213 - 816 pg/mL [facility] Specimen Blood - Central Venous Line Performing Organization Address City/State/Zipcode Phone Number [facility] [address] [place] [address] [phone] [place] ECG 12 lead (04/27/2018 8:09 AM CDT) Narrative Performed At Ventricular Rate 107 BPM GE MUSE Atrial Rate 107 BPM P-R Interval 132 ms QRS Duration 92 ms Q-T Interval 360 ms QTC Calculation(Bazett) 481 ms P [place] 71 degrees R [place] 24 degrees T [place] 58 degrees Sinus tachycardia Prolonged QT No previous ECGs available Confirmed by Mariah GAVIN BASANT ([id number]) on 04/28/2018 12:02:45 PM Procedure Note Interface, External Ris In - 04/28/2018 12:02 PM CDT Ventricular Rate 107 BPM Atrial Rate 107 BPM P-R Interval 132 ms QRS Duration 92 ms Q-T Interval 360 ms QTC Calculation(Bazett) 481 ms P [place] 71 degrees R [place] 24 degrees T [place] 58 degrees Sinus tachycardia Prolonged QT No previous ECGs available Confirmed by Mariah GAVIN BASANT ([id number]) on 04/28/2018 12:02:45 PM Performing Organization Address City/State/Zipcode Phone Number [employer] US abdomen limited (04/27/2018 5:20 AM CDT) Narrative Performed At FINAL REPORT [employer] [facility] Abdominal ultrasound. Clinical history: pancreatitis, fatty liver, LFT elevation Comparison study: None Findings: The liver is echogenic in nature consistent with fatty infiltration. It measures 22.0 cm in span. The CBD is dilated measuring 9 mm. It is normal in size proximally with the common hepatic duct measuring 3 mm. The main portal vein diameter is 1.4 cm. The gallbladder is distended measuring 4.6 cm in maximal transverse diameter. No stones or sonographic evidence of cholecystitis is seen. The pancreas is normal in appearance. The right kidney measures 12.1 x 5.9 x 6.3 cm. No ascites is present.The proximal aorta is unremarkable. The remainder of the abdomen was not assessed. Impression: 1. Enlarged, echogenic liver consistent with fatty infiltration. 2. Gallbladder distention but no definite sonographic evidence of acute cholecystitis. 3. Dilatation of the common bile duct. This could be further assessed with MRCP. Signed: Moses Baeza MD Report Verified Date/Time:04/27/2018 07:57:35 Reading Location: [facility] [id number] Ortho Consult Reading Room Procedure Note Interface, External Ris In - 04/27/2018 7:59 AM CDT FIN[facility] REPORT Limited Abdominal ultrasound. Clinical history: pancreatitis, fatty liver, LFT elevation Comparison study: None Findings: The liver is echogenic in nature consistent with fatty infiltration. It measures 22.0 cm in span. The CBD is dilated measuring 9 mm. It is normal in size proximally with the common hepatic duct measuring 3 mm. The main portal vein diameter is 1.4 cm. The gallbladder is distended measuring 4.6 cm in maximal transverse diameter. No stones or sonographic evidence of cholecystitis is seen. The pancreas is normal in appearance. The right kidney measures 12.1 x 5.9 x 6.3 cm. No ascites is present. The proximal aorta is unremarkable. The remainder of the abdomen was not assessed. Impression: 1. Enlarged, echogenic liver consistent with fatty infiltration. 2. Gallbladder distention but no definite sonographic evidence of acute cholecystitis. 3. Dilatation of the common bile duct. This could be further assessed with MRCP. Signed: Moses Baeza MD Report Verified Date/Time: 04/27/2018 07:57:35 Reading Location: [facility] C0X Ortho Consult Reading Room Performing Organization Address City/[facility]/Zipcode Phone Number [facility] Ammonia (04/27/2018 4:44 AM CDT) Ammonia 40 18 - 72 mol/L [facility] Specimen Blood - Central Venous Line Performing Organization Address City/[facility]/Zipcode Phone Number [address] [address] CENTER Manual Differential (04/27/2018 4:12 AM CDT)Only the most recent of2 resultswithin the time period is included. % Neutros 61 % [facility] % Lymphs 8 % [facility] % Monos 4 % [facility] % Eos 1 % [facility] % Bands 26 (H) 0 - 10 % [facility] # Neutros 2.99 1.56 - 6.13 K/ul [facility] # Lymphs 0.39 (L) 1.18 - 3.74 K/ul [facility] # Monos 0.20 (L) 0.24 - 0.36 K/uL [facility] # Eos 0.05 0.04 - 0.36 K/uL [facility] # Bands 1.27 (H) 0.00 - 0.80 K/uL [facility] Total Counted 100 [facility] nRBC (manual) 2 (H) 0 - 0 /100 WBC [facility] RBC Morphology Normal [facility] WBC Morphology Normal [facility] Platelet Morphology Normal [facility] Artifact Present [facility] Platelet Conc Decreased [facility] Specimen Blood - Central Venous Line Narrative Performed At Received comment: [facility] User comments: Slide comments: Performing Organization Address City/State/Zipcode Phone Number [facility] [address] [place] [address] [phone] CENTER Urinalysis w/ Microscopic (04/27/2018 12:48 AM CDT) Color, UA Dark Yellow [facility] Clarity, UA Hazy [facility] Specific [place], UA 1.035 1.001 - 1.035 [facility] pH, UA 5.5 5.0 - 8.0 [facility] Protein, UA 200 mg/dL (A) Negative [facility] Glucose, UA 100 mg/dL (A) Negative [facility] Ketones, UA Negative Negative [facility] Bilirubin, UA Positive (A) Negative [facility] Blood, UA Large (A) Negative [facility] Nitrite, UA Negative Negative [facility] Leukocytes, UA Small (A) Negative [facility] Urobilinogen, UA 2.0 (H) 0.2 - 1.0 mg/dL [facility] RBC, UA 83 /HPF [facility] WBC, UA 16 /HPF [facility] Mucus Rare [facility] Granular Casts, UA 8 /LPF [facility] Amorphous Crystals Moderate [facility] Specimen Source Urine, [place] [facility] Specimen Urine - Urine, [place] Performing Organization Address City/State/Zipcode Phone Number [facility] [address] [place] [address] [phone] CENTER after 10/02/2017 Insurance Payer Benefit Plan / Group Subscriber ID Type Phone Address MEDICARE MEDICARE A B xxxxxxxxxxx Medicare Advance Directives For more information, please contact:[address] [phone] Code Status Date Activated Date Inactivated Comments Full Code 04/26/2018 11:20 PM 05/11/2018 5:13 PM This code status was determined by: Patient
--- OUTSIDE RECORDS SUMMARY | 2018-10-03 16:02 | XMS REPORT ---
:1960 [facility] Address [address] [place] [address] Dr. Yao [address] [place] [address] Care Team Providers Name Role Phone THERESE TRIANA Unavailable Unavailable Problems This patient has no known problems. Allergies, Adverse Reactions, Alerts This patient has no known allergies or adverse reactions. Medications This patient has no known medications. Results Test Description Test Time Test Comments Text Results Atomic Results Result Comments POCT-GLUCOSE METER 2018-05-11 18:40:00 Test Item Value Reference Range Comments POC-GLUCOSE METER (BEAKER) (test 148 mg/dL 70-110 TESTED AT [address] pxho=9672) [facility] [address] POCT-GLUCOSE [id number] 07:43:00 Test Item Value Reference Range Comments POC-GLUCOSE METER (BEAKER) 112 mg/dL 70-110 TESTED AT [address] (test znue=7333) [facility] [address] [id number] 07:13:00 Test Item Value Reference Range Comments MAGNESIUM (BEAKER) (test fnfp=588) 1.4 mg/dL 1.6-2.6 BASIC METABOLIC [id number] 07:13:00 Test Item Value Reference Range Comments SODIUM (BEAKER) (test 141 meq/L 136-145 prvk=663) POTASSIUM (BEAKER) (test 4.9 meq/L 3.5-5.1 wwbq=368) CHLORIDE (BEAKER) (test 102 meq/L 98-107 wyzz=491) CO2 (BEAKER) (test 32 meq/L 22-29 lrgj=438) BLOOD UREA NITROGEN 12 mg/dL 7-21 (BEAKER) (test brrx=891) CREATININE (BEAKER) (test 0.73 mg/dL 0.57-1.25 xabw=070) GLUCOSE RANDOM (BEAKER) 118 mg/dL 70-105 (test wsrm=603) CALCIUM (BEAKER) (test 9.0 mg/dL 8.4-10.2 qiua=837) EGFR (BEAKER) (test 83 mL/min/1.73 sq m ESTIMATED GFR IS NOT ixmk=5214) ACCURATE CREATININE CLEARANCE IN PREDICTING GLOMERULAR FILTRATION RATE. ESTIMATED GFR IS NOT APPLICABLE FOR DIALYSIS PATIENTS. POCT-GLUCOSE [id number] 22:09:00 Test Item Value Reference Range Comments POC-GLUCOSE METER (BEAKER) 161 mg/dL 70-110 TESTED AT [address] (test hwmu=6275) [place] [id number] POCT-GLUCOSE [id number] 17:46:00 Test Item Value Reference Range Comments POC-GLUCOSE METER (BEAKER) 148 mg/dL 70-110 TESTED AT [address] (test opza=9409) [place] [address] POCT-GLUCOSE [id number] 12:00:00 Test Item Value Reference Range Comments POC-GLUCOSE METER (BEAKER) 137 mg/dL 70-110 TESTED AT [address] (test cgke=9769) [place] [id number] POCT-GLUCOSE [id number] 07:55:00 Test Item Value Reference Range Comments POC-GLUCOSE METER (BEAKER) 141 mg/dL 70-110 TESTED AT [address] (test tbzu=1873) [place] [address] [id number] 05:30:00 Test Item Value Reference Range Comments MAGNESIUM (BEAKER) (test iden=447) 1.4 mg/dL 1.6-2.6 BASIC METABOLIC [id number] 05:30:00 Test Item Value Reference Range Comments SODIUM (BEAKER) (test 137 meq/L 136-145 bsug=500) POTASSIUM (BEAKER) (test 4.9 meq/L 3.5-5.1 mmff=149) CHLORIDE (BEAKER) (test 100 meq/L 98-107 smxs=222) CO2 (BEAKER) (test 30 meq/L 22-29 jcts=565) BLOOD UREA NITROGEN 16 mg/dL 7-21 (BEAKER) (test ftwf=302) CREATININE (BEAKER) (test 0.68 mg/dL 0.57-1.25 mhwy=031) GLUCOSE RANDOM (BEAKER) 104 mg/dL 70-105 (test yvut=514) CALCIUM (BEAKER) (test 8.8 mg/dL 8.4-10.2 rthd=358) EGFR (BEAKER) (test 90 mL/min/1.73 sq m ESTIMATED GFR IS NOT yayo=0492) ACCURATE CREATININE CLEARANCE IN PREDICTING GLOMERULAR FILTRATION RATE. ESTIMATED GFR IS NOT APPLICABLE FOR DIALYSIS PATIENTS. HEMOGLOBIN AND [id number] 05:07:00 Test Item Value Reference Range Comments HEMOGLOBIN (BEAKER) (test aslg=231) 8.8 GM/DL 11.2-15.7 HEMATOCRIT (BEAKER) (test xjsv=718) 28.4 % 34.1-44.9 BLOOD [id number] 00:00:00 Test Item Value Reference Range Comments CULTURE (BEAKER) (test vpnd=7729) No growth in 5 days BLOOD [id number] 00:00:00 Test Item Value Reference Range Comments CULTURE (BEAKER) (test mpsv=2873) No growth in 5 days POCT-GLUCOSE [id number] 22:59:00 Test Item Value Reference Range Comments POC-GLUCOSE METER (BEAKER) 141 mg/dL 70-110 TESTED AT [address] (test qrey=2215) [place] [address] HEMOGLOBIN AND [id number] 16:50:00 Test Item Value Reference Range Comments HEMOGLOBIN (BEAKER) (test lsmj=106) 9.6 GM/DL 11.2-15.7 HEMATOCRIT (BEAKER) (test dbwo=998) 30.8 % 34.1-44.9 POCT-GLUCOSE [id number] 13:15:00 Test Item Value Reference Range Comments POC-GLUCOSE METER (BEAKER) 144 mg/dL 70-110 TESTED AT [address] (test jdjj=1461) [place] [address] POCT-GLUCOSE [id number] 08:27:00 Test Item Value Reference Range Comments POC-GLUCOSE METER (BEAKER) 125 mg/dL 70-110 TESTED AT [address] (test vlqd=2288) [place] [address] [id number] 07:54:00 Test Item Value Reference Range Comments MAGNESIUM (BEAKER) (test hywd=675) 1.0 mg/dL 1.6-2.6 BASIC METABOLIC [id number] 07:25:00 Test Item Value Reference Range Comments SODIUM (BEAKER) (test 138 meq/L 136-145 lwkt=653) POTASSIUM (BEAKER) (test 4.1 meq/L 3.5-5.1 wwqm=784) CHLORIDE (BEAKER) (test 102 meq/L 98-107 wgew=513) CO2 (BEAKER) (test 29 meq/L 22-29 feso=423) BLOOD UREA NITROGEN 23 mg/dL 7-21 (BEAKER) (test bymd=948) CREATININE (BEAKER) (test 0.79 mg/dL 0.57-1.25 acvt=382) GLUCOSE RANDOM (BEAKER) 122 mg/dL 70-105 (test babs=689) CALCIUM (BEAKER) (test 8.6 mg/dL 8.4-10.2 bvfd=804) EGFR (BEAKER) (test 76 mL/min/1.73 sq m ESTIMATED GFR IS NOT bept=2436) ACCURATE CREATININE CLEARANCE IN PREDICTING GLOMERULAR FILTRATION RATE. ESTIMATED GFR IS NOT APPLICABLE FOR DIALYSIS PATIENTS. HEMOGLOBIN AND [id number] 07:15:00 Test Item Value Reference Range Comments HEMOGLOBIN (BEAKER) (test dvzn=929) 8.5 GM/DL 11.2-15.7 HEMATOCRIT (BEAKER) (test gggx=069) 27.0 % 34.1-44.9 CBC W/PLT COUNT & AUTO [id number] 07:15:00 Test Item Value Reference Range Comments WHITE BLOOD CELL COUNT (BEAKER) (test qhpk=905) 6.5 K/ L 3.5-10.5 RED BLOOD CELL COUNT (BEAKER) (test sykl=170) 2.63 M/ L 3.93-5.22 HEMOGLOBIN (BEAKER) (test dtjp=903) 8.5 GM/DL 11.2-15.7 HEMATOCRIT (BEAKER) (test tjdd=518) 27.0 % 34.1-44.9 MEAN CORPUSCULAR VOLUME (BEAKER) (test rymy=610) 102.7 fL 79.4-94.8 MEAN CORPUSCULAR HEMOGLOBIN (BEAKER) (test 32.3 pg 25.6-32.2 tnme=127) MEAN CORPUSCULAR HEMOGLOBIN CONC (BEAKER) (test 31.5 GM/DL 32.2-35.5 svbh=470) RED CELL DISTRIBUTION WIDTH (BEAKER) (test 16.9 % 11.7-14.4 pqfb=138) PLATELET COUNT (BEAKER) (test dpvh=292) 428 K/CU MM 150-450 MEAN PLATELET VOLUME (BEAKER) (test lapc=068) 9.1 fL 9.4-12.3 NUCLEATED RED BLOOD CELLS (BEAKER) (test 0 /100 WBC 0-0 iell=749) NEUTROPHILS RELATIVE PERCENT (BEAKER) (test 72 % fqfm=934) LYMPHOCYTES RELATIVE PERCENT (BEAKER) (test 16 % kear=922) MONOCYTES RELATIVE PERCENT (BEAKER) (test 10 % afyr=231) EOSINOPHILS RELATIVE PERCENT (BEAKER) (test 1 % ckhz=560) BASOPHILS RELATIVE PERCENT (BEAKER) (test 0 % cqmo=638) NEUTROPHILS ABSOLUTE COUNT (BEAKER) (test 4.63 K/ L 1.56-6.13 qjtt=958) LYMPHOCYTES ABSOLUTE COUNT (BEAKER) (test 1.01 K/ L 1.18-3.74 qlpd=414) MONOCYTES ABSOLUTE COUNT (BEAKER) (test 0.64 K/ L 0.24-0.36 qrtf=134) EOSINOPHILS ABSOLUTE COUNT (BEAKER) (test 0.04 K/ L 0.04-0.36 notd=443) BASOPHILS ABSOLUTE COUNT (BEAKER) (test 0.02 K/ L 0.01-0.08 kgso=843) IMMATURE GRANULOCYTES-RELATIVE PERCENT (BEAKER) 2 % 0-1 (test bjgq=0871) POCT-GLUCOSE [id number] 00:54:00 Test Item Value Reference Range Comments POC-GLUCOSE METER (BEAKER) 165 mg/dL 70-110 TESTED AT [address] (test ftwp=5322) [place] [id number] POCT-GLUCOSE [id number] 18:13:00 Test Item Value Reference Range Comments POC-GLUCOSE METER (BEAKER) 255 mg/dL 70-110 TESTED AT [address] (test yvmq=0505) [place] [address] HEMOGLOBIN AND [id number] 17:10:00 Test Item Value Reference Range Comments HEMOGLOBIN (BEAKER) (test nsfs=720) 9.0 GM/DL 11.2-15.7 HEMATOCRIT (BEAKER) (test deaw=164) 28.1 % 34.1-44.9 POCT-GLUCOSE [id number] 11:29:00 Test Item Value Reference Range Comments POC-GLUCOSE METER (BEAKER) 204 mg/dL 70-[address] [facility] [address] [facility] (test plte=6123) [place] [address] CBC W/PLT COUNT & AUTO [id number] 10:04:00 Test Item Value Reference Range Comments WHITE BLOOD CELL COUNT (BEAKER) (test mxff=185) 7.5 K/ L 3.5-10.5 RED BLOOD CELL COUNT (BEAKER) (test hmdl=834) 2.71 M/ L 3.93-5.22 HEMOGLOBIN (BEAKER) (test uqwp=670) 9.0 GM/DL 11.2-15.7 HEMATOCRIT (BEAKER) (test mtnq=601) 28.4 % 34.1-44.9 MEAN CORPUSCULAR VOLUME (BEAKER) (test guar=564) 104.8 fL 79.4-94.8 MEAN CORPUSCULAR HEMOGLOBIN (BEAKER) (test 33.2 pg 25.6-32.2 hczb=188) MEAN CORPUSCULAR HEMOGLOBIN CONC (BEAKER) (test 31.7 GM/DL 32.2-35.5 exdn=496) RED CELL DISTRIBUTION WIDTH (BEAKER) (test 17.5 % 11.7-14.4 vjqa=896) PLATELET COUNT (BEAKER) (test ncqq=637) 398 K/CU MM 150-450 MEAN PLATELET VOLUME (BEAKER) (test qrom=296) 9.4 fL 9.4-12.3 NUCLEATED RED BLOOD CELLS (BEAKER) (test 0 /100 WBC 0-0 itid=024) NEUTROPHILS RELATIVE PERCENT (BEAKER) (test 73 % gcap=339) LYMPHOCYTES RELATIVE PERCENT (BEAKER) (test 13 % jghp=690) MONOCYTES RELATIVE PERCENT (BEAKER) (test 10 % srhn=607) EOSINOPHILS RELATIVE PERCENT (BEAKER) (test 1 % vlvf=927) BASOPHILS RELATIVE PERCENT (BEAKER) (test 0 % nfvg=837) NEUTROPHILS ABSOLUTE COUNT (BEAKER) (test 5.47 K/ L 1.56-6.13 bpoq=916) LYMPHOCYTES ABSOLUTE COUNT (BEAKER) (test 0.95 K/ L 1.18-3.74 qsyz=525) MONOCYTES ABSOLUTE COUNT (BEAKER) (test 0.77 K/ L 0.24-0.36 qrlk=443) EOSINOPHILS ABSOLUTE COUNT (BEAKER) (test 0.04 K/ L 0.04-0.36 xvgf=788) BASOPHILS ABSOLUTE COUNT (BEAKER) (test 0.03 K/ L 0.01-0.08 qsmn=070) IMMATURE GRANULOCYTES-RELATIVE PERCENT (BEAKER) 3 % 0-1 (test zshd=5401) POCT-GLUCOSE [id number] 08:20:00 Test Item Value Reference Range Comments POC-GLUCOSE METER (BEAKER) 128 mg/dL 70-[address] [facility] [address] [facility] (test dbaq=6885) [facility] [address] [id number] 05:08:00 Test Item Value Reference Range Comments MAGNESIUM (BEAKER) (test 1.3 mg/dL 1.6-2.6 Specimen slightly hemolyzed mntp=089) [id number] 05:08:00 Test Item Value Reference Range Comments PHOSPHORUS (BEAKER) (test 2.6 mg/dL 2.3-4.7 Specimen slightly hemolyzed lskj=373) BASIC METABOLIC [id number] 05:08:00 Test Item Value Reference Range Comments SODIUM (BEAKER) (test 138 meq/L 136-145 sdwm=535) POTASSIUM (BEAKER) (test 4.3 meq/L 3.5-5.1 Specimen slightly vcon=815) hemolyzed CHLORIDE (BEAKER) (test 103 meq/L 98-107 bbsu=330) CO2 (BEAKER) (test 25 meq/L 22-29 kqad=193) BLOOD UREA NITROGEN 35 mg/dL 7-21 (BEAKER) (test zrse=645) CREATININE (BEAKER) (test 0.95 mg/dL 0.57-1.25 Specimen slightly sdmf=219) hemolyzed GLUCOSE RANDOM (BEAKER) 107 mg/dL 70-105 (test hlqu=692) CALCIUM (BEAKER) (test 8.8 mg/dL 8.4-10.2 fmoa=082) EGFR (BEAKER) (test 61 mL/min/1.73 sq m ESTIMATED GFR IS NOT pdrw=3105) ACCURATE CREATININE CLEARANCE IN PREDICTING GLOMERULAR FILTRATION RATE. ESTIMATED GFR IS NOT APPLICABLE FOR DIALYSIS PATIENTS. HEMOGLOBIN AND [id number] 04:46:00 Test Item Value Reference Range Comments HEMOGLOBIN (BEAKER) (test owog=507) 8.7 GM/DL 11.2-15.7 HEMATOCRIT (BEAKER) (test esqe=122) 27.8 % 34.1-44.9 POCT-GLUCOSE [id number] 00:51:00 Test Item Value Reference Range Comments POC-GLUCOSE METER (BEAKER) 142 mg/dL 70-110 TESTED AT [address] (test jluw=9662) [place] [address] HEMOGLOBIN AND [id number] 20:58:00 Test Item Value Reference Range Comments HEMOGLOBIN (BEAKER) (test vvlu=635) 9.6 GM/DL 11.2-15.7 HEMATOCRIT (BEAKER) (test jysf=827) 29.6 % 34.1-44.9 POCT-GLUCOSE [id number] 18:36:00 Test Item Value Reference Range Comments POC-GLUCOSE METER (BEAKER) 228 mg/dL 70-110 TESTED AT [address] (test fcjh=9443) [place] [address] SPUTUM CULTURE + GRAM [id number] 15:57:00 Test Item Value Reference Range Comments CULTURE (BEAKER) (test 2+ Normal respiratory cosme izey=4790) present GRAM STAIN RESULT (BEAKER) 4+ WBCs (test syof=7902) GRAM STAIN RESULT (BEAKER) No epithelial cells (test pgye=12459) GRAM STAIN RESULT (BEAKER) 1+ yeast (test ipvx=58202) HEMOGLOBIN AND [id number] 12:05:00 Test Item Value Reference Range Comments HEMOGLOBIN (BEAKER) (test xrmr=987) 8.5 GM/DL 11.2-15.7 HEMATOCRIT (BEAKER) (test daqa=877) 25.9 % 34.1-44.9 POCT-GLUCOSE [id number] 11:40:00 Test Item Value Reference Range Comments POC-GLUCOSE METER (BEAKER) 180 mg/dL 70-110 TESTED AT [address] (test uplj=6036) [place] [address] POCT-GLUCOSE [id number] 06:14:00 Test Item Value Reference Range Comments POC-GLUCOSE METER (BEAKER) 143 mg/dL 70-110 TESTED AT [address] (test jddd=9425) [facility] [address] BASIC METABOLIC [id number] 05:05:00 Test Item Value Reference Range Comments SODIUM (BEAKER) (test 136 meq/L 136-145 jyas=728) POTASSIUM (BEAKER) (test 4.0 meq/L 3.5-5.1 edof=100) CHLORIDE (BEAKER) (test 101 meq/L 98-107 uhur=242) CO2 (BEAKER) (test 26 meq/L 22-29 gkba=404) BLOOD UREA NITROGEN 44 mg/dL 7-21 (BEAKER) (test wlre=473) CREATININE (BEAKER) (test 1.82 mg/dL 0.57-1.25 offj=449) GLUCOSE RANDOM (BEAKER) 129 mg/dL 70-105 (test iifq=852) CALCIUM (BEAKER) (test 8.5 mg/dL 8.4-10.2 blmg=548) EGFR (BEAKER) (test 29 mL/min/1.73 sq m ESTIMATED GFR IS NOT eqvt=3640) ACCURATE CREATININE CLEARANCE IN PREDICTING GLOMERULAR FILTRATION RATE. ESTIMATED GFR IS NOT APPLICABLE FOR DIALYSIS PATIENTS. VANCOMYCIN LEVEL, [id number] 05:04:00 Test Item Value Reference Range Comments VANCOMYCIN RANDOM (BEAKER) (test jkym=932) 23.1 ug/mL Reference Range: No [id number] 05:02:00 Test Item Value Reference Range Comments PHOSPHORUS (BEAKER) (test uesi=355) 3.9 mg/dL 2.3-4.7 [id number] 05:02:00 Test Item Value Reference Range Comments MAGNESIUM (BEAKER) (test jmvs=576) 1.4 mg/dL 1.6-2.6 HEMOGLOBIN AND [id number] 04:36:00 Test Item Value Reference Range Comments HEMOGLOBIN (BEAKER) (test dnja=805) 7.5 GM/DL 11.2-15.7 HEMATOCRIT (BEAKER) (test fjtq=518) 22.8 % 34.1-44.9 POCT-GLUCOSE [id number] 00:02:00 Test Item Value Reference Range Comments POC-GLUCOSE METER (BEAKER) 180 mg/dL 70-110 TESTED AT [address] (test wlao=1330) [place] [address] HEMOGLOBIN AND [id number] 20:48:00 Test Item Value Reference Range Comments HEMOGLOBIN (BEAKER) (test ijlg=024) 8.3 GM/DL 11.2-15.7 HEMATOCRIT (BEAKER) (test dygh=286) 25.0 % 34.1-44.9 POCT-GLUCOSE [id number] 18:14:00 Test Item Value Reference Range Comments POC-GLUCOSE METER (BEAKER) 131 mg/dL 70-110 TESTED AT [address] (test bhoc=2656) [place] [address] VANCOMYCIN LEVEL, [id number] 16:48:00 Test Item Value Reference Range Comments VANCOMYCIN RANDOM (BEAKER) (test ipuh=544) 28.3 ug/mL Reference Range: No NormalsPOCT-GLUCOSE [id number] 12:43:00 Test Item Value Reference Range Comments POC-GLUCOSE METER (BEAKER) 157 mg/dL 70-110 TESTED AT [address] (test hygt=5897) [place] [address] HEMOGLOBIN AND [id number] 12:20:00 Test Item Value Reference Range Comments HEMOGLOBIN (BEAKER) (test xrze=991) 8.3 GM/DL 11.2-15.7 HEMATOCRIT (BEAKER) (test bsgj=109) 25.4 % 34.1-44.9 BASIC METABOLIC [id number] 05:37:00 Test Item Value Reference Range Comments SODIUM (BEAKER) (test 130 meq/L 136-145 tluh=764) POTASSIUM (BEAKER) (test 4.6 meq/L 3.5-5.1 kxpc=062) CHLORIDE (BEAKER) (test 98 meq/L 98-107 vdiu=333) CO2 (BEAKER) (test 22 meq/L 22-29 vrnh=840) BLOOD UREA NITROGEN 44 mg/dL 7-21 (BEAKER) (test pbuq=778) CREATININE (BEAKER) (test 2.84 mg/dL 0.57-1.25 qnjj=082) GLUCOSE RANDOM (BEAKER) 156 mg/dL 70-105 (test bbmd=550) CALCIUM (BEAKER) (test 8.4 mg/dL 8.4-10.2 xwfg=531) EGFR (BEAKER) (test 17 mL/min/1.73 sq m ESTIMATED GFR IS NOT qtsl=5584) ACCURATE CREATININE CLEARANCE IN PREDICTING GLOMERULAR FILTRATION RATE. ESTIMATED GFR IS NOT APPLICABLE FOR DIALYSIS PATIENTS. CBC W/PLT COUNT & AUTO [id number] 04:41:00 Test Item Value Reference Range Comments WHITE BLOOD CELL COUNT (BEAKER) (test eazp=291) 11.0 K/ L 3.5-10.5 RED BLOOD CELL COUNT (BEAKER) (test euif=380) 1.87 M/ L 3.93-5.22 HEMOGLOBIN (BEAKER) (test jfwd=745) 6.3 GM/DL 11.2-15.7 HEMATOCRIT (BEAKER) (test bsfw=705) 19.9 % 34.1-44.9 MEAN CORPUSCULAR VOLUME (BEAKER) (test ivpa=539) 106.4 fL 79.4-94.8 MEAN CORPUSCULAR HEMOGLOBIN (BEAKER) (test 33.7 pg 25.6-32.2 kxew=265) MEAN CORPUSCULAR HEMOGLOBIN CONC (BEAKER) (test 31.7 GM/DL 32.2-35.5 vfqb=340) RED CELL DISTRIBUTION WIDTH (BEAKER) (test 15.0 % 11.7-14.4 woyj=981) PLATELET COUNT (BEAKER) (test agyi=665) 254 K/CU MM 150-450 MEAN PLATELET VOLUME (BEAKER) (test xkhq=713) 9.5 fL 9.4-12.3 NUCLEATED RED BLOOD CELLS (BEAKER) (test 0 /100 WBC 0-0 zyab=954) NEUTROPHILS RELATIVE PERCENT (BEAKER) (test 91 % fbwz=261) LYMPHOCYTES RELATIVE PERCENT (BEAKER) (test 4 % wolj=864) MONOCYTES RELATIVE PERCENT (BEAKER) (test 3 % wgoi=187) EOSINOPHILS RELATIVE PERCENT (BEAKER) (test 0 % bvlc=266) BASOPHILS RELATIVE PERCENT (BEAKER) (test 0 % umrz=863) NEUTROPHILS ABSOLUTE COUNT (BEAKER) (test 10.02 K/ L 1.56-6.13 khza=382) LYMPHOCYTES ABSOLUTE COUNT (BEAKER) (test 0.44 K/ L 1.18-3.74 jjtb=236) MONOCYTES ABSOLUTE COUNT (BEAKER) (test 0.27 K/ L 0.24-0.36 clip=713) EOSINOPHILS ABSOLUTE COUNT (BEAKER) (test 0.00 K/ L 0.04-0.36 flir=318) BASOPHILS ABSOLUTE COUNT (BEAKER) (test 0.01 K/ L 0.01-0.08 hupe=241) IMMATURE GRANULOCYTES-RELATIVE PERCENT (BEAKER) 2 % 0-1 (test urxt=8178) POCT-GLUCOSE [id number] 00:06:00 Test Item Value Reference Range Comments POC-GLUCOSE METER (BEAKER) 174 mg/dL 70-110 TESTED AT [place] [id number] [facility] (test tkbb=3490) [facility] [address] POCT-GLUCOSE [id number] 17:26:00 Test Item Value Reference Range Comments POC-GLUCOSE METER (BEAKER) 179 mg/dL 70-110 TESTED AT [address] (test djdn=9221) [place] [address] CT, [id number] 17:19:00FINAL REPORT CLINICAL HISTORY: Recent pancreatitis, shock FINDINGS: Multipleaxial images of the abdomen and pelvis were performed without intravenous contrast. Oral contrast was given. This exam was performed according to our departmental dose- optimization program, which includes automated exposure control, adjustment of the mA and/or kV according to patient size and/or use of the iterative reconstruction technique. Comparison:None. Lower chest: Bilateral dependent/ compressive atelectasis versus pneumonitis. Small bilateral pleural effusions. [...] adjacent atelectasis versus pneumonitis. Subtle peripancreatic fat strandingwithout focal noncontrast parenchymal abnormality. No retroperitoneal fluid collection. Correlation with serology to evaluate for pancreatitis is recommended. Fluid density stool throughout the colon, nonspecific but suggesting diarrheal illness. Hepatomegaly with CT evidence of steatosis. Signed: Murtaza Clemens MDReport Verified Date/Time: 05/05 17:19:54 Reading Location: [address] Reading Room TROPONIN [id number] 16:31:00 Test Item Value Reference Range Comments TROPONIN I (BEAKER) (test bfxa=053) < ng/mL 0.00-0.03 Troponin I (TnI) levels must be interpreted [...] failure, acidosis, acute neurological disease, and persistent tachyarrhythmia.POCT-GLUCOSE [id number] 12:29:00 Test Item Value Reference Range Comments POC-GLUCOSE METER (BEAKER) 139 mg/dL 70-[address] [facility] [address] [facility] (test efef=4374) [facility] [address] URINALYSIS W/ REFLEX URINE [id number] 09:51:00 Test Item Value Reference Range Comments COLOR (BEAKER) (test rchn=974) Red CLARITY (BEAKER) (test pbyc=629) Hazy SPECIFIC GRAVITY UA (BEAKER) (test smvx=489) 1.018 1.001-1.035 PH UA (BEAKER) (test rinq=539) 6.5 5.0-8.0 PROTEIN UA (BEAKER) (test jkmm=948) 100 mg/dL Negative GLUCOSE UA (BEAKER) (test ovjb=027) Negative Negative KETONES UA (BEAKER) (test bxqj=751) Negative Negative BILIRUBIN UA (BEAKER) (test bznp=705) Negative Negative BLOOD UA (BEAKER) (test napp=485) Small Negative NITRITE UA (BEAKER) (test rkln=105) Positive Negative LEUKOCYTE ESTERASE UA (BEAKER) (test rxiq=821) Moderate Negative UROBILINOGEN UA (BEAKER) (test fnrh=855) 0.2 mg/dL 0.2-1.0 RBC UA (BEAKER) (test iqxv=137) 2 /HPF WBC UA (BEAKER) (test afkd=251) 38 /HPF BACTERIA (BEAKER) (test ohtb=909) Occasional HYALINE CASTS (BEAKER) (test cgks=900) 3 /LPF YEAST (BEAKER) (test fnwe=9026) Moderate SOURCE(BEAKER) (test iobv=5289) SODIUM, RANDOM [id number] 09:46:00 Test Item Value Reference Range Comments SODIUM URINE (BEAKER) (test xuvi=625) 23 meq/L Reference Range: No NormalsCREATININE, RANDOM [id number] 09:32:00 Test Item Value Reference Range Comments CREATININE URINE (BEAKER) (test oneo=502) 67.0 mg/dL Reference Range: No NormalsUREA NITROGEN, RANDOM [id number] 09:32:00 Test Item Value Reference Range Comments UREA NITROGEN URINE (BEAKER) (test hmhv=682) 170 mg/dL Reference Range: No NormalsLACTIC ACID, ARTERIAL, WHOLE [id number] 09:16:00 Test Item Value Reference Range Comments LACTATE BLOOD ARTERIAL (2) (BEAKER) (test 0.8 mmol/L 0.5-2.2 okem=5614) Effective 12/15/2015: Units/Reference Range ChangeNew: 0.5-2.2 mmol/L Previous: 5 -20 mg/dLHEMATOCRIT-STAT [id number] 09:02:00 Test Item Value Reference Range Comments HEMATOCRIT (BEAKER) (test wejh=011) 23.0 % 36.0-45.0 BLOOD GAS, [id number] 09:02:00 Test Item Value Reference Range Comments PH ARTERIAL (BEAKER) (test ycxh=489) 7.34 7.35-7.45 PCO2 ARTERIAL (BEAKER) (test jkvu=581) 50 mmHg 35-45 PO2 ARTERIAL (BEAKER) (test heoa=254) 97 mmHg 80-90 O2 SATURATION ARTERIAL (BEAKER) (test rcpc=105) 96.8 % 96.0-97.0 HCO3 ARTERIAL (BEAKER) (test pebd=180) 26 mmol/L 21-29 BASE EXCESS ARTERIAL (BEAKER) (test nxyz=679) -0.1 mmol/L -2.0-3.0 PATIENT TEMPERATURE (BEAKER) (test eopc=1678) 37.5 C FIO2 (BEAKER) (test pwaz=0470) 30.0 % HEMOGLOBIN-STAT [id number] 09:01:00 Test Item Value Reference Range Comments HEMOGLOBIN (BEAKER) (test keab=117) 7.7 g/dL 12.0-15.0 TROPONIN [id number] 08:24:00 Test Item Value Reference Range Comments TROPONIN I (BEAKER) (test peqi=770) < ng/mL 0.00-0.03 Troponin I (TnI) levels must be interpreted [...] failure, acidosis, acute neurological disease, and persistent tachyarrhythmia.BASIC METABOLIC [id number] 08:22:00 Test Item Value Reference Range Comments SODIUM (BEAKER) (test 128 meq/L 136-145 jrtn=338) POTASSIUM (BEAKER) (test 4.5 meq/L 3.5-5.1 kigj=755) CHLORIDE (BEAKER) (test 96 meq/L 98-107 bvvo=272) CO2 (BEAKER) (test 22 meq/L 22-29 ntuh=636) BLOOD UREA NITROGEN 44 mg/dL 7-21 (BEAKER) (test ndgw=688) CREATININE (BEAKER) (test 3.93 mg/dL 0.57-1.25 urqd=869) GLUCOSE RANDOM (BEAKER) 118 mg/dL 70-105 (test onlg=448) CALCIUM (BEAKER) (test 8.8 mg/dL 8.4-10.2 tvsz=049) EGFR (BEAKER) (test 12 mL/min/1.73 sq m ESTIMATED GFR IS NOT zisu=6682) ACCURATE CREATININE CLEARANCE IN PREDICTING GLOMERULAR FILTRATION RATE. ESTIMATED GFR IS NOT APPLICABLE FOR DIALYSIS PATIENTS. BLOOD GAS, [id number] 07:56:00 Test Item Value Reference Range Comments PH ARTERIAL (BEAKER) (test kdim=122) 7.40 7.35-7.45 PCO2 ARTERIAL (BEAKER) (test qxif=069) 41 mmHg 35-45 PO2 ARTERIAL (BEAKER) (test rmtp=579) 120 mmHg 80-90 O2 SATURATION ARTERIAL (BEAKER) (test trsg=334) 98.3 % 96.0-97.0 HCO3 ARTERIAL (BEAKER) (test rmhw=744) 25 mmol/L 21-29 BASE EXCESS ARTERIAL (BEAKER) (test xkui=896) -0.1 mmol/L -2.0-3.0 PATIENT TEMPERATURE (BEAKER) (test fizv=0899) 37.5 C FIO2 (BEAKER) (test bqjd=1937) 30.0 % VANCOMYCIN LEVEL, [id number] 05:44:00 Test Item Value Reference Range Comments VANCOMYCIN RANDOM (BEAKER) (test fqzp=027) 16.7 ug/mL Reference Range: No NormalsLACTIC ACID, VENOUS, WHOLE [id number] 05:22:00 Test Item Value Reference Range Comments LACTATE BLOOD VENOUS (2) (BEAKER) (test 0.7 mmol/L 0.5-2.2 xbmg=1548) Effective 12/15/2015: Units/Reference Range ChangeNew: 0.5-2.2 mmol/L Previous: 5 -20 mg/dLBLOOD GAS, [id number] 05:03:00 Test Item Value Reference Range Comments PH ARTERIAL (BEAKER) (test qamr=643) 7.27 7.35-7.45 PCO2 ARTERIAL (BEAKER) (test zhpm=052) 57 mmHg 35-45 PO2 ARTERIAL (BEAKER) (test pmda=679) 71 mmHg 80-90 O2 SATURATION ARTERIAL (BEAKER) (test akxe=391) 91.0 % 96.0-97.0 HCO3 ARTERIAL (BEAKER) (test ibrp=003) 25 mmol/L 21-29 BASE EXCESS ARTERIAL (BEAKER) (test puxx=366) -1.9 mmol/L -2.0-3.0 PATIENT TEMPERATURE (BEAKER) (test mtus=8774) 37.5 C FIO2 (BEAKER) (test qtqm=7262) 30.0 % TROPONIN [id number] 05:00:00 Test Item Value Reference Range Comments TROPONIN I (BEAKER) (test vacu=594) 0.01 ng/mL 0.00-0.03 Troponin I (TnI) levels must be interpreted [...] failure, acidosis, acute neurological disease, and persistent tachyarrhythmia.[id number] 04:54:00 Test Item Value Reference Range Comments LIPASE (BEAKER) (test krtw=292) 47 U/L 8-78 HEPATIC FUNCTION [id number] 04:54:00 Test Item Value Reference Range Comments TOTAL PROTEIN (BEAKER) (test cxva=802) 5.5 gm/dL 6.0-8.3 ALBUMIN (BEAKER) (test evyw=0428) 2.7 g/dL 3.5-5.0 BILIRUBIN TOTAL (BEAKER) (test kfjx=975) 0.8 mg/dL 0.2-1.2 BILIRUBIN DIRECT (BEAKER) (test fhwf=989) 0.6 mg/dL 0.1-0.5 ALKALINE PHOSPHATASE (BEAKER) (test kbkw=640) 133 U/L 40-150 AST (SGOT) (BEAKER) (test ajhc=269) 38 U/L 5-34 ALT (SGPT) (BEAKER) (test bmts=098) 55 U/L 6-55 RAD, CHEST, 1 VIEW, NON [id number] 04:49:00Reason for exam:-> IntubationShould this be performed at the bedside?->YesFINAL REPORT CLINICAL INDICATION: Support lines. Comparison: 05/04/2018 The tip of an endotracheal tube is between the clavicles and kulwant. The cardiomediastinal contours are stable. The lung volumes remain low. Bilateral parenchymal opacities are unchanged. There is no pneumothorax. An enteric tube traverses examination to the upper abdomen. A right IJ CVC remains in place. Signed: Murtaza Clemens MDReport Verified Date/Time: 05/05/2018 04:49:25 Reading Location: [address] Reading Room [id number] 04:47:00 Test Item Value Reference Range Comments PROCALCITONIN (BEAKER) (test jrup=9404) 2.43 ng/mL <0.05 SEPSIS RISK (ng/mL)Low: 0.05-0.50Intermediate: 0.51-2.00High: & gt;=2.01RAD, ABDOMEN/KUB, 1 VIEW [id number] 04:47:00Reason for exam:->OG placement Should this be performed at the bedside?->YesFINAL REPORT CLINICAL HISTORY: NG tube placement COMPARISON: None. FINDINGS: A single supine view of a portion of the abdomen is submitted. The tip of an enteric tube overlies the expected position of the distal stomach. The visualized abdominal bowel gas pattern is unobstructed. There is no acute bony abnormality. Signed: Murtaza Clemens MDReport Verified Date/Time: 05/05/201804:47 :09 Reading Location: [address] Reading Room BLOOD GAS, [id number] 03:34:00 Test Item Value Reference Range Comments PH ARTERIAL (BEAKER) (test veym=455) 7.14 7.35-7.45 PCO2 ARTERIAL (BEAKER) (test ymmu=364) 76 mmHg 35-45 PO2 ARTERIAL (BEAKER) (test zlzr=551) 96 mmHg 80-90 O2 SATURATION ARTERIAL (BEAKER) (test cixy=869) 94.6 % 96.0-97.0 HCO3 ARTERIAL (BEAKER) (test huhu=541) 25 mmol/L 21-29 BASE EXCESS ARTERIAL (BEAKER) (test wcce=407) -4.3 mmol/L -2.0-3.0 PATIENT TEMPERATURE (BEAKER) (test rbjs=8164) 37.0 C FIO2 (BEAKER) (test upyc=2353) 40.0 % CBC W/PLT COUNT & AUTO [id number] 03:25:00 Test Item Value Reference Range Comments WHITE BLOOD CELL COUNT (BEAKER) (test jcta=559) 20.0 K/ L 3.5-10.5 RED BLOOD CELL COUNT (BEAKER) (test ogdn=525) 2.19 M/ L 3.93-5.22 HEMOGLOBIN (BEAKER) (test ybux=933) 7.4 GM/DL 11.2-15.7 HEMATOCRIT (BEAKER) (test obnd=679) 24.4 % 34.1-44.9 MEAN CORPUSCULAR VOLUME (BEAKER) (test grsy=799) 111.4 fL 79.4-94.8 MEAN CORPUSCULAR HEMOGLOBIN (BEAKER) (test 33.8 pg 25.6-32.2 mtke=990) MEAN CORPUSCULAR HEMOGLOBIN CONC (BEAKER) (test 30.3 GM/DL 32.2-35.5 tysb=577) RED CELL DISTRIBUTION WIDTH (BEAKER) (test 15.8 % 11.7-14.4 rcfn=705) PLATELET COUNT (BEAKER) (test ugvs=300) 357 K/CU MM 150-450 MEAN PLATELET VOLUME (BEAKER) (test iydm=712) 9.5 fL 9.4-12.3 NUCLEATED RED BLOOD CELLS (BEAKER) (test 0 /100 WBC 0-0 pksl=397) NEUTROPHILS RELATIVE PERCENT (BEAKER) (test 80 % nxry=333) LYMPHOCYTES RELATIVE PERCENT (BEAKER) (test 9 % vakt=021) MONOCYTES RELATIVE PERCENT (BEAKER) (test 7 % bmhu=110) EOSINOPHILS RELATIVE PERCENT (BEAKER) (test 0 % vfxz=652) BASOPHILS RELATIVE PERCENT (BEAKER) (test 0 % fusa=788) NEUTROPHILS ABSOLUTE COUNT (BEAKER) (test 16.06 K/ L 1.56-6.13 yrgc=213) LYMPHOCYTES ABSOLUTE COUNT (BEAKER) (test 1.76 K/ L 1.18-3.74 pazu=692) MONOCYTES ABSOLUTE COUNT (BEAKER) (test 1.30 K/ L 0.24-0.36 iuvu=184) EOSINOPHILS ABSOLUTE COUNT (BEAKER) (test 0.04 K/ L 0.04-0.36 seeu=317) BASOPHILS ABSOLUTE COUNT (BEAKER) (test 0.05 K/ L 0.01-0.08 zvpp=620) IMMATURE GRANULOCYTES-RELATIVE PERCENT (BEAKER) 4 % 0-1 (test oojl=5392) LACTIC ACID, VENOUS, WHOLE [id number] 02:41:00 Test Item Value Reference Range Comments LACTATE BLOOD VENOUS (2) (BEAKER) (test 0.5 mmol/L 0.5-2.2 jyfl=0534) Effective 12/15/2015: Units/Reference Range ChangeNew: 0.5-2.2 mmol/L Previous: 5 -20 mg/dLBLOOD GAS, [id number] 02:10:00 Test Item Value Reference Range Comments PH ARTERIAL (BEAKER) (test uimf=141) 7.17 7.35-7.45 PCO2 ARTERIAL (BEAKER) (test mayf=078) 68 mmHg 35-45 PO2 ARTERIAL (BEAKER) (test syhb=265) 83 mmHg 80-90 O2 SATURATION ARTERIAL (BEAKER) (test frlh=267) 93.2 % 96.0-97.0 HCO3 ARTERIAL (BEAKER) (test zkpm=119) 24 mmol/L 21-29 BASE EXCESS ARTERIAL (BEAKER) (test mkad=308) -4.3 mmol/L -2.0-3.0 PATIENT TEMPERATURE (BEAKER) (test vhok=4057) 36.5 C FIO2 (BEAKER) (test xodx=2851) 28.0 % BASIC METABOLIC [id number] 01:46:00 Test Item Value Reference Range Comments SODIUM (BEAKER) (test 127 meq/L 136-145 bmmk=924) POTASSIUM (BEAKER) (test 4.8 meq/L 3.5-5.1 efql=379) CHLORIDE (BEAKER) (test 95 meq/L 98-107 wrpu=176) CO2 (BEAKER) (test 23 meq/L 22-29 rulr=832) BLOOD UREA NITROGEN 44 mg/dL 7-21 (BEAKER) (test cpda=804) CREATININE (BEAKER) (test 4.41 mg/dL 0.57-1.25 vlli=109) GLUCOSE RANDOM (BEAKER) 114 mg/dL 70-105 (test zaga=613) CALCIUM (BEAKER) (test 8.2 mg/dL 8.4-10.2 pert=248) EGFR (BEAKER) (test 10 mL/min/1.73 sq m ESTIMATED GFR IS NOT bkez=8516) ACCURATE CREATININE CLEARANCE IN PREDICTING GLOMERULAR FILTRATION RATE. ESTIMATED GFR IS NOT APPLICABLE FOR DIALYSIS PATIENTS. B-TYPE NATRIURETIC FACTOR (BNP)2018-05-05 01:36:00 Test Item Value Reference Range Comments B-TYPE NATRIURETIC PEPTIDE (BEAKER) (test 124 pg/mL 0-100 uqsp=410) [id number] 01:31:00 Test Item Value Reference Range Comments MAGNESIUM (BEAKER) (test ijgl=105) 1.8 mg/dL 1.6-2.6 LACTIC ACID, VENOUS, WHOLE [id number] 01:29:00 Test Item Value Reference Range Comments LACTATE BLOOD VENOUS (2) (BEAKER) (test 0.7 mmol/L 0.5-2.2 byox=2883) Effective 12/15/2015: Units/Reference Range ChangeNew: 0.5-2.2 mmol/L Previous: 5 -20 mg/dLCBC W/PLT COUNT & AUTO [id number] 01:14:00 Test Item Value Reference Range Comments WHITE BLOOD CELL COUNT (BEAKER) (test nupw=995) 15.2 K/ L 3.5-10.5 RED BLOOD CELL COUNT (BEAKER) (test adiv=576) 2.11 M/ L 3.93-5.22 HEMOGLOBIN (BEAKER) (test kbsm=513) 7.1 GM/DL 11.2-15.7 HEMATOCRIT (BEAKER) (test arcd=740) 23.2 % 34.1-44.9 MEAN CORPUSCULAR VOLUME (BEAKER) (test yowq=655) 110.0 fL 79.4-94.8 MEAN CORPUSCULAR HEMOGLOBIN (BEAKER) (test 33.6 pg 25.6-32.2 qmtx=001) MEAN CORPUSCULAR HEMOGLOBIN CONC (BEAKER) (test 30.6 GM/DL 32.2-35.5 eisd=206) RED CELL DISTRIBUTION WIDTH (BEAKER) (test 15.9 % 11.7-14.4 awdf=593) PLATELET COUNT (BEAKER) (test jroe=042) 308 K/CU MM 150-450 MEAN PLATELET VOLUME (BEAKER) (test lbrs=649) 9.5 fL 9.4-12.3 NUCLEATED RED BLOOD CELLS (BEAKER) (test 0 /100 WBC 0-0 zwlq=320) NEUTROPHILS RELATIVE PERCENT (BEAKER) (test 81 % fbhr=052) LYMPHOCYTES RELATIVE PERCENT (BEAKER) (test 8 % zklb=025) MONOCYTES RELATIVE PERCENT (BEAKER) (test 7 % rspx=483) EOSINOPHILS RELATIVE PERCENT (BEAKER) (test 0 % dwli=413) BASOPHILS RELATIVE PERCENT (BEAKER) (test 0 % yddb=716) NEUTROPHILS ABSOLUTE COUNT (BEAKER) (test 12.30 K/ L 1.56-6.13 emam=368) LYMPHOCYTES ABSOLUTE COUNT (BEAKER) (test 1.22 K/ L 1.18-3.74 tjnr=633) MONOCYTES ABSOLUTE COUNT (BEAKER) (test 1.05 K/ L 0.24-0.36 fdbo=922) EOSINOPHILS ABSOLUTE COUNT (BEAKER) (test 0.02 K/ L 0.04-0.36 pipn=313) BASOPHILS ABSOLUTE COUNT (BEAKER) (test 0.04 K/ L 0.01-0.08 cbcl=956) IMMATURE GRANULOCYTES-RELATIVE PERCENT (BEAKER) 4 % 0-1 (test euzo=6558) POCT-GLUCOSE [id number] 01:01:00 Test Item Value Reference Range Comments POC-GLUCOSE METER (BEAKER) 138 mg/dL 70-[address] [facility] [address] [place] [address] (test rqhg=0577) [facility] [address] RAD, CHEST, 1 VIEW, NON [id number] 00:17:00Reason for exam:->concern for respiratory distressShould this be performed at the bedside?->YesFINAL REPORT History: Respiratory distress. Comparison: 2017 Findings: A single view of the chest is submitted. The cardiomediastinal contours are stable. The lung volumesare low. Bilateral lower lung opacities are similar to previous and suggest atelectasis or scarring.No new focus of pulmonary opacity is present but superimposed pneumonitis should be excluded clinically. There is no pneumothorax, large pleural effusion, evidence of overt pulmonary edema or acute bony abnormality. A right IJ central venous catheter remains in place. Signed: Murtaza Clemens MDReport Verified Date/Time: 05/05/2018 00:17:28 Reading Location: [address] Reading Room POCT- LACTIC ACID, [id number] 23:56:00 Test Item Value Reference Range Comments POC-LACTIC ACID, ARTERIAL 0.9 mmol/L 0.4-1.3 TESTED AT [address] (BEAKER) (test jgyv=9520) [place] [id number] POCT-BLOOD GASES, [id number] 23:56:00 Test Item Value Reference Range Comments TEMP, CELSIUS-POC (BEAKER) 36.1 (test blxe=2897) FIO2-POC (BEAKER) (test 32 TESTED AT [address] kngr=5544) [place] [address] PH, ARTERIAL-POC (BEAKER) 7.192 7.350-7.450 (test clbx=6299) PCO2, ARTERIAL-POC (BEAKER) 63.6 mm Hg 35.0-45.0 (test mgcl=6907) PO2, ARTERIAL-POC (BEAKER) 71.0 mm Hg 80.0-90.0 (test cqaz=0433) SO2, ARTERIAL-POC (BEAKER) 90.0 % 96.0-97.0 (test qbyq=5932) HCO3, ARTERIAL-POC (BEAKER) 24.7 meq/L 21.0-29.0 (test djqr=4813) BASE EXCESS, ARTERIAL-POC -4.0 meq/L -2.0-3.0 (BEAKER) (test wzil=2087) [id number] 23:56:00 Test Item Value Reference Range Comments POC-SODIUM (BEAKER) (test 127 meq/L 135-148 TESTED AT [address] hysd=4014) [place] [address] [id number] 23:56:00 Test Item Value Reference Range Comments POC-POTASSIUM (BEAKER) (test 4.8 meq/L 3.6-5.5 TESTED AT [address] snjf=4457) [place] [address] [id number] 23:56:00 Test Item Value Reference Range Comments POC-GLUCOSE (BEAKER) (test 116 mg/dL 70-110 TESTED AT [address] iesh=2050) [place] [address] POCT-CALCIUM [id number] 23:56:00 Test Item Value Reference Range Comments POC-CALCIUM IONIZED (BEAKER) 1.20 mmol/L 1.12-1.27 TESTED AT [address] (test kskb=0418) [place] [address] [id number] 23:56:00 Test Item Value Reference Range Comments POC-HEMATOCRIT (BEAKER) (test 25 % 36-45 TESTED AT [address] ixwp=7319) [place] [address] [id number] 23:56:00 Test Item Value Reference Range Comments POC-HEMOGLOBIN (BEAKER) 8.5 g/dL 12.0-15.0 TESTED AT [address] (test clon=0882) [place] [address]TESTED AT [place] [address] POCT-GLUCOSE [id number] 21:48:00 Test Item Value Reference Range Comments POC-GLUCOSE METER (BEAKER) 136 mg/dL 70-110 TESTED AT [address] (test mvlf=9924) [place] [address] POCT-GLUCOSE [id number] 19:03:00 Test Item Value Reference Range Comments POC-GLUCOSE METER (BEAKER) 131 mg/dL 70-110 TESTED AT [address] (test fjcn=5264) [place] [address] POCT-BLOOD GASES, [id number] 16:54:00 Test Item Value Reference Range Comments TEMP, CELSIUS-POC (BEAKER) 37.0 (test kkjw=1573) FIO2-POC (BEAKER) (test TESTED AT [address] wbie=2249) [place] [address] PH, VENOUS-POC (BEAKER) 7.224 7.320-7.420 (test ngtl=9970) PCO2, VENOUS-POC (BEAKER) 63.8 mm Hg 41.0-51.0 (test vqlp=7988) PO2, VENOUS-POC (BEAKER) 31.0 mm Hg 25.0-40.0 (test pmwd=9443) SO2, VENOUS-POC (BEAKER) 46.0 % 40.0-70.0 (test cmss=7410) HCO3, VENOUS-POC (BEAKER) 26.3 meq/L 21.0-29.0 (test wkfa=2432) BASE EXCESS, VENOUS-POC -1.0 meq/L -2.0-3.0 (BEAKER) (test jenz=6270) [id number] 16:54:00 Test Item Value Reference Range Comments POC-SODIUM (BEAKER) (test 129 meq/L 135-148 TESTED AT [address] aocc=5037) [place] [address] [id number] 16:54:00 Test Item Value Reference Range Comments POC-POTASSIUM (BEAKER) (test 4.7 meq/L 3.6-5.5 TESTED AT [address] szlz=4999) [place] [address] [id number] 16:54:00 Test Item Value Reference Range Comments POC-GLUCOSE (BEAKER) (test 116 mg/dL 70-110 TESTED AT [address] qnaj=1103) [place] [address] POCT-CALCIUM [id number] 16:54:00 Test Item Value Reference Range Comments POC-CALCIUM IONIZED (BEAKER) 1.19 mmol/L 1.12-1.27 TESTED AT [address] (test kybo=2509) [place] [address] [id number] 16:54:00 Test Item Value Reference Range Comments POC-HEMATOCRIT (BEAKER) (test 25 % 36-45 TESTED AT [address] pnqy=8398) [place] [address] [id number] 16:54:00 Test Item Value Reference Range Comments POC-HEMOGLOBIN (BEAKER) 8.5 g/dL 12.0-15.0 TESTED AT [address] (test msxz=3793) [place] [address]TESTED AT [place] [address] POCT-GLUCOSE [id number] 13:26:00 Test Item Value Reference Range Comments POC-GLUCOSE METER (BEAKER) 124 mg/dL 70-110 TESTED AT [address] (test wycb=1953) [place] [address] POCT-LACTIC ACID, [id number] 12:57:00 Test Item Value Reference Range Comments POC-LACTIC ACID, VENOUS 1.1 mmol/L 0.9-1.[address] [facility] [address] (BEAKER) (test aqmd=8781) [facility] [address] COMPREHENSIVE METABOLIC [id number] 09:56:00 Test Item Value Reference Range Comments TOTAL PROTEIN (BEAKER) 6.2 gm/dL 6.0-8.3 (test bejt=486) ALBUMIN (BEAKER) (test 3.0 g/dL 3.5-5.0 tgcx=2621) ALKALINE PHOSPHATASE 160 U/L 40-150 (BEAKER) (test aani=525) BILIRUBIN TOTAL (BEAKER) 1.1 mg/dL 0.2-1.2 (test wzww=183) SODIUM (BEAKER) (test 131 meq/L 136-145 sbkd=267) POTASSIUM (BEAKER) (test 4.6 meq/L 3.5-5.1 nyhu=529) CHLORIDE (BEAKER) (test 98 meq/L 98-107 iesh=930) CO2 (BEAKER) (test 23 meq/L 22-29 suew=102) BLOOD UREA NITROGEN 39 mg/dL 7-21 (BEAKER) (test mpnd=286) CREATININE (BEAKER) (test 3.86 mg/dL 0.57-1.25 ypef=926) GLUCOSE RANDOM (BEAKER) 104 mg/dL 70-105 (test itje=195) CALCIUM (BEAKER) (test 9.1 mg/dL 8.4-10.2 jyzo=892) AST (SGOT) (BEAKER) (test 57 U/L 5-34 dvvu=482) ALT (SGPT) (BEAKER) (test 75 U/L 6-55 dmwg=448) EGFR (BEAKER) (test 12 mL/min/1.73 sq m ESTIMATED GFR IS NOT gwqx=4057) ACCURATE CREATININE CLEARANCE IN PREDICTING GLOMERULAR FILTRATION RATE. ESTIMATED GFR IS NOT APPLICABLE FOR DIALYSIS PATIENTS. [id number] 09:48:00 Test Item Value Reference Range Comments PHOSPHORUS (BEAKER) (test odyh=053) 5.0 mg/dL 2.3-4.7 [id number] 09:48:00 Test Item Value Reference Range Comments MAGNESIUM (BEAKER) (test uhvw=161) 1.9 mg/dL 1.6-2.6 POCT-GLUCOSE [id number] 09:23:00 Test Item Value Reference Range Comments POC-GLUCOSE METER (BEAKER) 148 mg/dL 70-[address] [facility] [address] (test vjpu=1387) [facility] [address] CBC (HEMOGRAM ONLY)2018-05-04 07:04:00 Test Item Value Reference Range Comments WHITE BLOOD CELL COUNT (BEAKER) (test xmto=168) 12.7 K/ L 3.5-10.5 RED BLOOD CELL COUNT (BEAKER) (test jhto=518) 2.50 M/ L 3.93-5.22 HEMOGLOBIN (BEAKER) (test ofsu=872) 8.3 GM/DL 11.2-15.7 HEMATOCRIT (BEAKER) (test grmz=617) 27.6 % 34.1-44.9 MEAN CORPUSCULAR VOLUME (BEAKER) (test qbas=835) 110.4 fL 79.4-94.8 MEAN CORPUSCULAR HEMOGLOBIN (BEAKER) (test 33.2 pg 25.6-32.2 nqhl=752) MEAN CORPUSCULAR HEMOGLOBIN CONC (BEAKER) (test 30.1 GM/DL 32.2-35.5 dmkz=233) RED CELL DISTRIBUTION WIDTH (BEAKER) (test 16.8 % 11.7-14.4 ipkf=943) PLATELET COUNT (BEAKER) (test zswo=276) 314 K/CU MM 150-450 MEAN PLATELET VOLUME (BEAKER) (test lxdq=880) 10.3 fL 9.4-12.3 NUCLEATED RED BLOOD CELLS (BEAKER) (test 0 /100 WBC 0-0 tkre=382) PROTHROMBIN [id number] 06:20:00 Test Item Value Reference Range Comments PROTIME (BEAKER) (test yhjd=710) 14.0 seconds 11.7-14.7 INR (BEAKER) (test vljb=592) 1.1 <=5.9 RECOMMENDED COUMADIN/WARFARIN INR THERAPY RANGESSTANDARD DOSE: 2.0 - 3.0 Includes: PROPHYLAXIS forvenous thrombosis, systemic embolization; TREATMENT for venous thrombosis and/or pulmonary embolus.HIGH RISK: Target INR is 2.5-3.5 for patients with mechanical heart valves.[id number] 06:20:00 Test Item Value Reference Range Comments PARTIAL THROMBOPLASTIN TIME (BEAKER) (test 38.0 seconds 22.5-36.0 sups=500) POCT-GLUCOSE [id number] 21:01:00 Test Item Value Reference Range Comments POC-GLUCOSE METER (BEAKER) 113 mg/dL 70-110 TESTED AT [address] (test lodm=6621) [facility] [address] POCT-GLUCOSE [id number] 17:33:00 Test Item Value Reference Range Comments POC-GLUCOSE METER (BEAKER) 123 mg/dL 70-110 TESTED AT [address] (test kpcs=9941) [facility] [address] POCT-GLUCOSE [id number] 12:19:00 Test Item Value Reference Range Comments POC-GLUCOSE METER (BEAKER) 127 mg/dL 70-110 TESTED AT [address] (test ubzn=8129) [facility] [address] POCT-GLUCOSE [id number] 08:08:00 Test Item Value Reference Range Comments POC-GLUCOSE METER (BEAKER) 129 mg/dL 70-110 TESTED AT [address] (test ubbh=3778) [facility] [address] BLOOD GAS, [id number] 07:23:00 Test Item Value Reference Range Comments PH VENOUS (BEAKER) (test fhwf=557) 7.36 7.32-7.42 PCO2 VENOUS (BEAKER) (test ffyz=225) 45 mmHg 41-51 PO2 VENOUS (BEAKER) (test lzaz=053) 45 mmHg 25-40 O2 SATURATION VENOUS (BEAKER) (test qsgk=707) 79.4 % 40.0-70.0 HCO3 VENOUS (BEAKER) (test xlol=247) 25 mmol/L 21-29 BASE EXCESS VENOUS (BEAKER) (test usub=508) -0.5 mmol/L -2.0-3.0 PATIENT TEMPERATURE (BEAKER) (test wdxx=0348) 37.0 C FIO2 (BEAKER) (test ikau=1980) 20.0 % COMPREHENSIVE METABOLIC [id number] 07:11:00 Test Item Value Reference Range Comments TOTAL PROTEIN (BEAKER) 5.4 gm/dL 6.0-8.3 (test tupm=305) ALBUMIN (BEAKER) (test 2.7 g/dL 3.5-5.0 gqfq=4850) ALKALINE PHOSPHATASE 147 U/L 40-150 (BEAKER) (test drlv=401) BILIRUBIN TOTAL (BEAKER) 1.0 mg/dL 0.2-1.2 (test bkep=896) SODIUM (BEAKER) (test 134 meq/L 136-145 pysw=001) POTASSIUM (BEAKER) (test 4.2 meq/L 3.5-5.1 awln=764) CHLORIDE (BEAKER) (test 100 meq/L 98-107 lava=745) CO2 (BEAKER) (test 26 meq/L 22-29 pylk=188) BLOOD UREA NITROGEN 31 mg/dL 7-21 (BEAKER) (test yjqi=067) CREATININE (BEAKER) (test 3.33 mg/dL 0.57-1.25 zbee=644) GLUCOSE RANDOM (BEAKER) 105 mg/dL 70-105 (test atkx=284) CALCIUM (BEAKER) (test 8.6 mg/dL 8.4-10.2 ywcx=914) AST (SGOT) (BEAKER) (test 52 U/L 5-34 alrv=234) ALT (SGPT) (BEAKER) (test 88 U/L 6-55 jxnx=995) EGFR (BEAKER) (test 14 mL/min/1.73 sq m ESTIMATED GFR IS NOT mkft=5949) ACCURATE CREATININE CLEARANCE IN PREDICTING GLOMERULAR FILTRATION RATE. ESTIMATED GFR IS NOT APPLICABLE FOR DIALYSIS PATIENTS. [id number] 07:09:00 Test Item Value Reference Range Comments PHOSPHORUS (BEAKER) (test uggr=867) 3.6 mg/dL 2.3-4.7 [id number] 07:09:00 Test Item Value Reference Range Comments MAGNESIUM (BEAKER) (test yiil=440) 1.8 mg/dL 1.6-2.6 [id number] 06:34:00 Test Item Value Reference Range Comments PARTIAL THROMBOPLASTIN TIME (BEAKER) (test 37.1 seconds 22.5-36.0 hknq=869) CBC (HEMOGRAM ONLY)2018-05-03 06:34:00 Test Item Value Reference Range Comments WHITE BLOOD CELL COUNT (BEAKER) (test moyd=449) 11.8 K/ L 3.5-10.5 RED BLOOD CELL COUNT (BEAKER) (test mfxx=346) 2.28 M/ L 3.93-5.22 HEMOGLOBIN (BEAKER) (test ykmr=184) 7.7 GM/DL 11.2-15.7 HEMATOCRIT (BEAKER) (test irvo=792) 24.1 % 34.1-44.9 MEAN CORPUSCULAR VOLUME (BEAKER) (test dlmh=106) 105.7 fL 79.4-94.8 MEAN CORPUSCULAR HEMOGLOBIN (BEAKER) (test 33.8 pg 25.6-32.2 egyi=343) MEAN CORPUSCULAR HEMOGLOBIN CONC (BEAKER) (test 32.0 GM/DL 32.2-35.5 djqt=243) RED CELL DISTRIBUTION WIDTH (BEAKER) (test 17.7 % 11.7-14.4 iwiz=353) PLATELET COUNT (BEAKER) (test eexb=657) 262 K/CU MM 150-450 MEAN PLATELET VOLUME (BEAKER) (test qmrq=748) 10.2 fL 9.4-12.3 NUCLEATED RED BLOOD CELLS (BEAKER) (test 0 /100 WBC 0-0 bhvz=958) PROTHROMBIN TIME/[id number] 06:33:00 Test Item Value Reference Range Comments PROTIME (BEAKER) (test yfka=583) 14.5 seconds 11.7-14.7 INR (BEAKER) (test ejqu=946) 1.1 <=5.9 RECOMMENDED COUMADIN/WARFARIN INR THERAPY RANGESSTANDARD DOSE: 2.0 - 3.0 Includes: PROPHYLAXIS forvenous thrombosis, systemic embolization; TREATMENT for venous thrombosis and/or pulmonary embolus.HIGH RISK: Target INR is 2.5-3.5 for patients with mechanical heart valves.LACTIC ACID, VENOUS, WHOLE [id number] 06:32:00 Test Item Value Reference Range Comments LACTATE BLOOD VENOUS (2) (BEAKER) (test 1.0 mmol/L 0.5-2.2 usdl=7480) Effective 12/15/2015: Units/Reference Range ChangeNew: 0.5-2.2 mmol/L Previous: 5 -20 mg/dLPOCT-GLUCOSE [id number] 21:06:00 Test Item Value Reference Range Comments POC-GLUCOSE METER (BEAKER) 168 mg/dL 70-110 TESTED AT [address] (test kuis=5720) [place] [id number] POCT-GLUCOSE [id number] 19:02:00 Test Item Value Reference Range Comments POC-GLUCOSE METER (BEAKER) 122 mg/dL 70-110 TESTED AT [address] (test svmn=3624) [place] [id number] 18:09:00 Test Item Value Reference Range Comments PHOSPHORUS (BEAKER) (test ovdw=446) 2.7 mg/dL 2.3-4.7 [id number] 18:09:00 Test Item Value Reference Range Comments MAGNESIUM (BEAKER) (test xwgb=060) 1.9 mg/dL 1.6-2.6 [id number] 18:09:00 Test Item Value Reference Range Comments CALCIUM (BEAKER) (test lcwp=990) 8.7 mg/dL 8.4-10.2 POCT-GLUCOSE [id number] 13:13:00 Test Item Value Reference Range Comments POC-GLUCOSE METER (BEAKER) 162 mg/dL 70-110 TESTED AT [address] (test xrbk=3165) [place] [id number] RAD, CHEST, 1 VIEW, NON [id number] 12:12:00Reason for exam:->Pulmobnary edema?Should this be performed at the bedside?->YesFINAL REPORT Chest one view compared to April 28, 2018 Discussion: Bilateral patchy and linear ill-defined hazy opacity left lung base partially obscures the hemidiaphragm, again probably atelectasis. No pneumothorax. Upper lungs clear. Right-sided dialysis catheter at the high SVC level. IMPRESSIONS: Focal pulmonary opacities are worse, presumably atelectasis. Correlate clinically for infection. Pulmonary opacities probably represent atelectasis. Signed: Cristina Crowe Verified Date/Time: 05/02/2018 12:12:11 Reading Location: [facility] Radiology Reading Room POCT-GLUCOSE [id number] 08:27:00 Test Item Value Reference Range Comments POC-GLUCOSE METER (BEAKER) 128 mg/dL 70-110 TESTED AT [address] (test ltoz=0659) [facility] [id number] COMPREHENSIVE METABOLIC [id number] 07:40:00 Test Item Value Reference Range Comments TOTAL PROTEIN (BEAKER) 5.4 gm/dL 6.0-8.3 (test pbro=466) ALBUMIN (BEAKER) (test 2.7 g/dL 3.5-5.0 ylbg=4478) ALKALINE PHOSPHATASE 147 U/L 40-150 (BEAKER) (test mlyu=115) BILIRUBIN TOTAL (BEAKER) 1.3 mg/dL 0.2-1.2 (test riep=728) SODIUM (BEAKER) (test 134 meq/L 136-145 fqmc=901) POTASSIUM (BEAKER) (test 3.3 meq/L 3.5-5.1 maby=671) CHLORIDE (BEAKER) (test 102 meq/L 98-107 wptj=722) CO2 (BEAKER) (test 24 meq/L 22-29 jixq=747) BLOOD UREA NITROGEN 25 mg/dL 7-21 (BEAKER) (test ytvo=331) CREATININE (BEAKER) (test 2.83 mg/dL 0.57-1.25 fijw=928) GLUCOSE RANDOM (BEAKER) 123 mg/dL 70-105 (test dmfg=513) CALCIUM (BEAKER) (test 8.4 mg/dL 8.4-10.2 pcgc=831) AST (SGOT) (BEAKER) (test 80 U/L 5-34 ebxf=462) ALT (SGPT) (BEAKER) (test 112 U/L 6-55 womj=998) EGFR (BEAKER) (test 17 mL/min/1.73 sq m ESTIMATED GFR IS NOT ytaf=8069) ACCURATE CREATININE CLEARANCE IN PREDICTING GLOMERULAR FILTRATION RATE. ESTIMATED GFR IS NOT APPLICABLE FOR DIALYSIS PATIENTS. [id number] 07:34:00 Test Item Value Reference Range Comments PHOSPHORUS (BEAKER) (test ywps=252) 2.7 mg/dL 2.3-4.7 [id number] 07:34:00 Test Item Value Reference Range Comments MAGNESIUM (BEAKER) (test pkxg=992) 1.9 mg/dL 1.6-2.6 LACTIC ACID, VENOUS, WHOLE [id number] 06:59:00 Test Item Value Reference Range Comments LACTATE BLOOD VENOUS (2) (BEAKER) (test 0.7 mmol/L 0.5-2.2 qjxg=1188) Effective 12/15/2015: Units/Reference Range ChangeNew: 0.5-2.2 mmol/L Previous: 5 -20 mg/dLCBC (HEMOGRAM ONLY)2018-05-02 06:44:00 Test Item Value Reference Range Comments WHITE BLOOD CELL COUNT (BEAKER) (test xvqe=870) 9.1 K/ L 3.5-10.5 RED BLOOD CELL COUNT (BEAKER) (test ebfp=994) 2.39 M/ L 3.93-5.22 HEMOGLOBIN (BEAKER) (test wdsr=373) 8.0 GM/DL 11.2-15.7 HEMATOCRIT (BEAKER) (test uxxy=392) 25.3 % 34.1-44.9 MEAN CORPUSCULAR VOLUME (BEAKER) (test rtss=323) 105.9 fL 79.4-94.8 MEAN CORPUSCULAR HEMOGLOBIN (BEAKER) (test 33.5 pg 25.6-32.2 alnh=087) MEAN CORPUSCULAR HEMOGLOBIN CONC (BEAKER) (test 31.6 GM/DL 32.2-35.5 rzoe=505) RED CELL DISTRIBUTION WIDTH (BEAKER) (test 18.1 % 11.7-14.4 mlrt=625) PLATELET COUNT (BEAKER) (test gvsc=496) 133 K/CU MM 150-450 MEAN PLATELET VOLUME (BEAKER) (test lpox=878) 11.2 fL 9.4-12.3 NUCLEATED RED BLOOD CELLS (BEAKER) (test 0 /100 WBC 0-0 lfit=933) [id number] 06:34:00 Test Item Value Reference Range Comments PARTIAL THROMBOPLASTIN TIME (BEAKER) (test 38.8 seconds 22.5-36.0 cvav=796) PROTHROMBIN [id number] 06:33:00 Test Item Value Reference Range Comments PROTIME (BEAKER) (test rsxd=820) 14.8 seconds 11.7-14.7 INR (BEAKER) (test klga=182) 1.2 <=5.9 RECOMMENDED COUMADIN/WARFARIN INR THERAPY RANGESSTANDARD DOSE: 2.0 - 3.0 Includes: PROPHYLAXIS forvenous thrombosis, systemic embolization; TREATMENT for venous thrombosis and/or pulmonary embolus.HIGH RISK: Target INR is 2.5-3.5 for patients with mechanical heart valves.BLOOD GAS, [id number] 06:29:00 Test Item Value Reference Range Comments PH VENOUS (BEAKER) (test sdxf=280) 7.51 7.32-7.42 PCO2 VENOUS (BEAKER) (test ytdu=768) 31 mmHg 41-51 PO2 VENOUS (BEAKER) (test juih=740) 173 mmHg 25-40 O2 SATURATION VENOUS (BEAKER) (test lvti=089) 99.3 % 40.0-70.0 HCO3 VENOUS (BEAKER) (test gsju=834) 25 mmol/L 21-29 BASE EXCESS VENOUS (BEAKER) (test ovoa=444) 1.8 mmol/L -2.0-3.0 PATIENT TEMPERATURE (BEAKER) (test tvuz=3866) 37.0 C FIO2 (BEAKER) (test uzgp=7800) 20 % BLOOD [id number] 06:00:00 Test Item Value Reference Range Comments CULTURE (BEAKER) (test wvqo=7767) No growth in 5 days BLOOD [id number] 06:00:00 Test Item Value Reference Range Comments CULTURE (BEAKER) (test rwsp=3325) No growth in 5 days POCT-GLUCOSE [id number] 20:46:00 Test Item Value Reference Range Comments POC-GLUCOSE METER (BEAKER) 157 mg/dL 70-110 TESTED AT [address] (test npyc=9998) [facility] [address] HEMOGLOBIN AND [id number] 14:24:00 Test Item Value Reference Range Comments HEMOGLOBIN (BEAKER) (test ytro=443) 7.9 GM/DL 11.2-15.7 HEMATOCRIT (BEAKER) (test gjzi=510) 23.3 % 34.1-44.9 POCT-GLUCOSE [id number] 13:32:00 Test Item Value Reference Range Comments POC-GLUCOSE METER (BEAKER) 116 mg/dL 70-110 TESTED AT [address] (test tjii=1649) [facility] [address] [id number] 12:04:00 Test Item Value Reference Range Comments PROCALCITONIN (BEAKER) (test pmoy=8262) 2.57 ng/mL <0.05 SEPSIS RISK (ng/mL)Low: 0.05-0.50Intermediate: 0.51-2.00High: & gt;=[id number] 11:04:00 Test Item Value Reference Range Comments LIPASE (BEAKER) (test icyw=649) 36 U/L 8-78 POCT-GLUCOSE [id number] 07:09:00 Test Item Value Reference Range Comments POC-GLUCOSE METER (BEAKER) 91 mg/dL 70-[address] [facility] [address] [facility] (test hjkp=2780) [place] [address] CALCIUM, [id number] 06:30:00 Test Item Value Reference Range Comments CALCIUM IONIZED (BEAKER) (test qvdx=291) 1.10 mmol/L 1.12-1.27 PH, BLOOD (BEAKER) (test xjbi=4946) 7.40 BLOOD GAS, [id number] 05:31:00 Test Item Value Reference Range Comments PH VENOUS (BEAKER) (test migk=736) 7.44 7.32-7.42 PCO2 VENOUS (BEAKER) (test lxir=062) 35 mmHg 41-51 PO2 VENOUS (BEAKER) (test bysl=446) 37 mmHg 25-40 O2 SATURATION VENOUS (BEAKER) (test qeqb=729) 72.3 % 40.0-70.0 HCO3 VENOUS (BEAKER) (test foom=686) 23 mmol/L 21-29 BASE EXCESS VENOUS (BEAKER) (test comc=178) -0.6 mmol/L -2.0-3.0 PATIENT TEMPERATURE (BEAKER) (test rqgy=2642) 37.0 C FIO2 (BEAKER) (test ybij=4960) 20.0 % COMPREHENSIVE METABOLIC [id number] 05:10:00 Test Item Value Reference Range Comments TOTAL PROTEIN (BEAKER) 5.2 gm/dL 6.0-8.3 (test qpaq=998) ALBUMIN (BEAKER) (test 2.7 g/dL 3.5-5.0 hhym=0901) ALKALINE PHOSPHATASE 141 U/L 40-150 (BEAKER) (test mygz=246) BILIRUBIN TOTAL (BEAKER) 1.9 mg/dL 0.2-1.2 (test uenv=902) SODIUM (BEAKER) (test 137 meq/L 136-145 smvg=226) POTASSIUM (BEAKER) (test 3.6 meq/L 3.5-5.1 ipdv=588) CHLORIDE (BEAKER) (test 103 meq/L 98-107 fdlq=985) CO2 (BEAKER) (test 23 meq/L 22-29 wpmp=901) BLOOD UREA NITROGEN 16 mg/dL 7-21 (BEAKER) (test fity=001) CREATININE (BEAKER) (test 1.85 mg/dL 0.57-1.25 cffe=173) GLUCOSE RANDOM (BEAKER) 97 mg/dL 70-105 (test suib=015) CALCIUM (BEAKER) (test 8.5 mg/dL 8.4-10.2 uehu=264) AST (SGOT) (BEAKER) (test 141 U/L 5-34 mhux=337) ALT (SGPT) (BEAKER) (test 161 U/L 6-55 ksfd=700) EGFR (BEAKER) (test 28 mL/min/1.73 sq m ESTIMATED GFR IS NOT wvrt=1050) ACCURATE CREATININE CLEARANCE IN PREDICTING GLOMERULAR FILTRATION RATE. ESTIMATED GFR IS NOT APPLICABLE FOR DIALYSIS PATIENTS. [id number] 05:05:00 Test Item Value Reference Range Comments PHOSPHORUS (BEAKER) (test akky=212) 2.2 mg/dL 2.3-4.7 [id number] 05:05:00 Test Item Value Reference Range Comments MAGNESIUM (BEAKER) (test yrmg=530) 1.9 mg/dL 1.6-2.6 LACTIC ACID, VENOUS, WHOLE [id number] 04:44:00 Test Item Value Reference Range Comments LACTATE BLOOD VENOUS (2) (BEAKER) (test 0.7 mmol/L 0.5-2.2 wzdv=2447) Effective 12/15/2015: Units/Reference Range ChangeNew: 0.5-2.2 mmol/L Previous: 5 -20 mg/[id number] 04:42:00 Test Item Value Reference Range Comments PARTIAL THROMBOPLASTIN TIME (BEAKER) (test 41.1 seconds 22.5-36.0 qtjq=988) PROTHROMBIN TIME/[id number] 04:41:00 Test Item Value Reference Range Comments PROTIME (BEAKER) (test wtqt=816) 16.4 seconds 11.7-14.7 INR (BEAKER) (test svgx=900) 1.3 <=5.9 RECOMMENDED COUMADIN/WARFARIN INR THERAPY RANGESSTANDARD DOSE: 2.0 - 3.0 Includes: PROPHYLAXIS forvenous thrombosis, systemic embolization; TREATMENT for venous thrombosis and/or pulmonary embolus.HIGH RISK: Target INR is 2.5-3.5 for patients with mechanical heart valves.CBC (HEMOGRAM ONLY)2018-05-01 04:33:00 Test Item Value Reference Range Comments WHITE BLOOD CELL COUNT (BEAKER) (test zfxd=012) 10.2 K/ L 3.5-10.5 RED BLOOD CELL COUNT (BEAKER) (test iren=950) 2.26 M/ L 3.93-5.22 HEMOGLOBIN (BEAKER) (test vxmp=924) 7.6 GM/DL 11.2-15.7 HEMATOCRIT (BEAKER) (test lljv=902) 22.8 % 34.1-44.9 MEAN CORPUSCULAR VOLUME (BEAKER) (test pfhf=870) 100.9 fL 79.4-94.8 MEAN CORPUSCULAR HEMOGLOBIN (BEAKER) (test 33.6 pg 25.6-32.2 uokw=005) MEAN CORPUSCULAR HEMOGLOBIN CONC (BEAKER) (test 33.3 GM/DL 32.2-35.5 gbeq=875) RED CELL DISTRIBUTION WIDTH (BEAKER) (test 17.1 % 11.7-14.4 jvrk=677) PLATELET COUNT (BEAKER) (test zqwd=458) 184 K/CU MM 150-450 MEAN PLATELET VOLUME (BEAKER) (test tnst=138) 10.0 fL 9.4-12.3 NUCLEATED RED BLOOD CELLS (BEAKER) (test 1 /100 WBC 0-0 qsfe=251) POCT-GLUCOSE [id number] 22:06:00 Test Item Value Reference Range Comments POC-GLUCOSE METER (BEAKER) 109 mg/dL 70-[address] [facility] [address] [facility] (test fdgv=0084) [place] [address] [id number] 21:01:00 Test Item Value Reference Range Comments POTASSIUM (BEAKER) (test 4.1 meq/L 3.5-5.1 Specimen slightly hemolyzed awrl=802) [id number] 18:20:00 Test Item Value Reference Range Comments POTASSIUM (BEAKER) (test nvnm=770) 4.0 meq/L 3.5-5.1 [id number] 18:20:00 Test Item Value Reference Range Comments MAGNESIUM (BEAKER) (test svzh=778) 1.8 mg/dL 1.6-2.6 [id number] 18:20:00 Test Item Value Reference Range Comments PHOSPHORUS (BEAKER) (test veuv=059) 1.9 mg/dL 2.3-4.7 [id number] 18:20:00 Test Item Value Reference Range Comments CALCIUM (BEAKER) (test rtfk=470) 8.9 mg/dL 8.4-10.2 POCT-GLUCOSE [id number] 17:24:00 Test Item Value Reference Range Comments POC-GLUCOSE METER (BEAKER) 100 mg/dL 70-110 TESTED AT [address] (test gcqt=5021) [facility] [address] BLOOD GAS, [id number] 14:09:00 Test Item Value Reference Range Comments PH VENOUS (BEAKER) (test wecx=053) 7.46 7.32-7.42 PCO2 VENOUS (BEAKER) (test avne=604) 37 mmHg 41-51 PO2 VENOUS (BEAKER) (test dcbk=165) 29 mmHg 25-40 O2 SATURATION VENOUS (BEAKER) (test dwtw=920) 58.8 % 40.0-70.0 HCO3 VENOUS (BEAKER) (test nthz=262) 25 mmol/L 21-29 BASE EXCESS VENOUS (BEAKER) (test xwrv=437) 1.6 mmol/L -2.0-3.0 PATIENT TEMPERATURE (BEAKER) (test uzza=1761) 37.0 C FIO2 (BEAKER) (test mlzo=9562) 100.0 % [id number] 13:11:00 Test Item Value Reference Range Comments POTASSIUM (BEAKER) (test bvze=480) 4.2 meq/L 3.5-5.1 POCT-GLUCOSE [id number] 12:04:00 Test Item Value Reference Range Comments POC-GLUCOSE METER (BEAKER) 86 mg/dL 70-110 TESTED AT [address] (test flys=4775) [facility] [address] [id number] 08:55:00 Test Item Value Reference Range Comments POTASSIUM (BEAKER) (test ywfe=118) 4.2 meq/L 3.5-5.1 BLOOD GAS, [id number] 08:49:00 Test Item Value Reference Range Comments PH VENOUS (BEAKER) (test rvan=490) 7.43 7.32-7.42 PCO2 VENOUS (BEAKER) (test ppgw=567) 35 mmHg 41-51 PO2 VENOUS (BEAKER) (test juwz=519) 28 mmHg 25-40 O2 SATURATION VENOUS (BEAKER) (test fnqu=398) 55.2 % 40.0-70.0 HCO3 VENOUS (BEAKER) (test ykfn=337) 23 mmol/L 21-29 BASE EXCESS VENOUS (BEAKER) (test ybzl=613) -1.3 mmol/L -2.0-3.0 PATIENT TEMPERATURE (BEAKER) (test bvhk=7537) 37.0 C FIO2 (BEAKER) (test fqlm=2746) 100.0 % Please obtain with patient off bipapPOCT-GLUCOSE [id number] 07:13:00 Test Item Value Reference Range Comments POC-GLUCOSE METER (BEAKER) 83 mg/dL 70-110 TESTED AT [address] (test tjxv=9784) [facility] [address] [id number] 04:01:00 Test Item Value Reference Range Comments PHOSPHORUS (BEAKER) (test qvyi=791) 1.8 mg/dL 2.3-4.7 [id number] 04:01:00 Test Item Value Reference Range Comments MAGNESIUM (BEAKER) (test zavs=276) 1.7 mg/dL 1.6-2.6 COMPREHENSIVE METABOLIC [id number] 04:01:00 Test Item Value Reference Range Comments TOTAL PROTEIN (BEAKER) 5.5 gm/dL 6.0-8.3 (test kqmh=665) ALBUMIN (BEAKER) (test 2.9 g/dL 3.5-5.0 yzla=0731) ALKALINE PHOSPHATASE 125 U/L 40-150 (BEAKER) (test ywcf=542) BILIRUBIN TOTAL (BEAKER) 2.0 mg/dL 0.2-1.2 (test raxn=709) SODIUM (BEAKER) (test 135 meq/L 136-145 rlmb=584) POTASSIUM (BEAKER) (test 4.2 meq/L 3.5-5.1 wlal=525) CHLORIDE (BEAKER) (test 102 meq/L 98-107 fxmd=623) CO2 (BEAKER) (test 25 meq/L 22-29 ahif=859) BLOOD UREA NITROGEN 11 mg/dL 7-21 (BEAKER) (test hxpi=549) CREATININE (BEAKER) (test 1.23 mg/dL 0.57-1.25 vpfl=159) GLUCOSE RANDOM (BEAKER) 76 mg/dL 70-105 (test vpae=156) CALCIUM (BEAKER) (test 8.6 mg/dL 8.4-10.2 ulor=284) AST (SGOT) (BEAKER) (test 307 U/L 5-34 fljq=354) ALT (SGPT) (BEAKER) (test 262 U/L 6-55 qfmb=454) EGFR (BEAKER) (test 45 mL/min/1.73 sq m ESTIMATED GFR IS NOT yzgl=2397) ACCURATE CREATININE CLEARANCE IN PREDICTING GLOMERULAR FILTRATION RATE. ESTIMATED GFR IS NOT APPLICABLE FOR DIALYSIS PATIENTS. LACTIC ACID, ARTERIAL, WHOLE [id number] 03:49:00 Test Item Value Reference Range Comments LACTATE BLOOD ARTERIAL (2) (BEAKER) (test 0.7 mmol/L 0.5-2.2 vhqv=6422) Effective 12/15/2015: Units/Reference Range ChangeNew: 0.5-2.2 mmol/L Previous: 5 -20 mg/dLCBC (HEMOGRAM ONLY)2018-04-30 03:49:00 Test Item Value Reference Range Comments WHITE BLOOD CELL COUNT (BEAKER) (test taxd=420) 9.3 K/ L 3.5-10.5 RED BLOOD CELL COUNT (BEAKER) (test hwvu=992) 2.39 M/ L 3.93-5.22 HEMOGLOBIN (BEAKER) (test sbrq=729) 8.1 GM/DL 11.2-15.7 HEMATOCRIT (BEAKER) (test cbth=088) 24.4 % 34.1-44.9 MEAN CORPUSCULAR VOLUME (BEAKER) (test niii=795) 102.1 fL 79.4-94.8 MEAN CORPUSCULAR HEMOGLOBIN (BEAKER) (test 33.9 pg 25.6-32.2 dbld=039) MEAN CORPUSCULAR HEMOGLOBIN CONC (BEAKER) (test 33.2 GM/DL 32.2-35.5 ugay=730) RED CELL DISTRIBUTION WIDTH (BEAKER) (test 16.1 % 11.7-14.4 qnsc=746) PLATELET COUNT (BEAKER) (test lyzb=205) 130 K/CU MM 150-450 MEAN PLATELET VOLUME (BEAKER) (test gsby=745) 9.6 fL 9.4-12.3 NUCLEATED RED BLOOD CELLS (BEAKER) (test 1 /100 WBC 0-0 ylom=942) [id number] 03:47:00 Test Item Value Reference Range Comments PARTIAL THROMBOPLASTIN TIME (BEAKER) (test 32.8 seconds 22.5-36.0 wiws=161) PROTHROMBIN [id number] 03:46:00 Test Item Value Reference Range Comments PROTIME (BEAKER) (test wmbz=203) 15.0 seconds 11.7-14.7 INR (BEAKER) (test mmba=542) 1.2 <=5.9 RECOMMENDED COUMADIN/WARFARIN INR THERAPY RANGESSTANDARD DOSE: 2.0 - 3.0 Includes: PROPHYLAXIS forvenous thrombosis, systemic embolization; TREATMENT for venous thrombosis and/or pulmonary embolus.HIGH RISK: Target INR is 2.5-3.5 for patients with mechanical heart valves.CALCIUM, [id number] 03:38:00 Test Item Value Reference Range Comments CALCIUM IONIZED (BEAKER) (test ibjw=304) 1.17 mmol/L 1.12-1.27 PH, BLOOD (BEAKER) (test utrx=7629) 7.39 POCT-GLUCOSE [id number] 23:04:00 Test Item Value Reference Range Comments POC-GLUCOSE METER (BEAKER) 94 mg/dL 70-[address] [facility] [address] [facility] (test tqao=6518) [facility] [address] [id number] 21:57:00 Test Item Value Reference Range Comments POTASSIUM (BEAKER) (test wmrj=561) 4.4 meq/L 3.5-5.1 POCT-GLUCOSE [id number] 18:02:00 Test Item Value Reference Range Comments POC-GLUCOSE METER (BEAKER) 99 mg/dL 70-[address] [facility] [address] [facility] (test gbjt=1828) [facility] [address] BLOOD GAS, [id number] 17:15:00 Test Item Value Reference Range Comments PH VENOUS (BEAKER) (test lkds=407) 7.31 7.32-7.42 PCO2 VENOUS (BEAKER) (test hths=605) 57 mmHg 41-51 PO2 VENOUS (BEAKER) (test odjt=223) 30 mmHg 25-40 O2 SATURATION VENOUS (BEAKER) (test oytu=794) 49.7 % 40.0-70.0 HCO3 VENOUS (BEAKER) (test lwhw=271) 28 mmol/L 21-29 BASE EXCESS VENOUS (BEAKER) (test fvau=113) 1.2 mmol/L -2.0-3.0 PATIENT TEMPERATURE (BEAKER) (test rmjp=5460) 37.0 C [id number] 16:07:00 Test Item Value Reference Range Comments POTASSIUM (BEAKER) (test xkto=386) 4.4 meq/L 3.5-5.1 [id number] 16:07:00 Test Item Value Reference Range Comments MAGNESIUM (BEAKER) (test fclg=834) 2.0 mg/dL 1.6-2.6 [id number] 16:07:00 Test Item Value Reference Range Comments PHOSPHORUS (BEAKER) (test kzpf=342) 2.1 mg/dL 2.3-4.7 [id number] 16:07:00 Test Item Value Reference Range Comments CALCIUM (BEAKER) (test dtwz=710) 8.2 mg/dL 8.4-10.2 MR, ABDOMEN, [id number] 15:19:00FINAL REPORT INDICATION:57-year-old female with abdominal pain, pancreatitis,and abnormal liver function tests. COMPARISON: Abdomen ultrasound exam April 27, 2018 TECHNIQUE:MR of the Abdomen with MRCP including 3-D reconstructions. Intravenous contrast was not used. FINDINGS:MRCP images demonstrate normal caliber of the common bile duct (5 mm diameter). There is focal signal loss in the downstream left hepatic duct which is probably artifact rather than stricture as the left intrahepatic bile ducts are not dilated. The gallbladder is distended measuring approximately 14cm in length and 4.5 cm in cross- section. No filling defect in the gallbladder that [...] left paracolic gutter, in keeping with diagnosis ofpancreatitis. No pancreatic mass or pancreatic ductal dilatation is demonstrated. Spleen, kidneys, adrenal glands, visualized bowel loops are unremarkable. Bilateral tiny pleural effusions and mild dependent body wall edema is noted. No suspicious marrow signal abnormality. IMPRESSION:No evidence of cholelithiasis or choledocholithiasis. Common bile duct is normal in diameter on MRCP. Moderate to severe hepatic steatosis. Small amount of fluid in the lesser sac and left paracolic gutter, in keeping with pancreatitis. Bilateral small pleural effusions and mild dependent body wall edema, may also be related to pancreatitis. Signed: Selwyn Laboy MDReport Verified Date/Time : 04/29/2018 15:19:21 Reading Location: [address] Body Reading Room U/S , RENAL WITH [id number] 14:53:00Reason for exam:->ENRIQUE with severe sepsisShould this be performed at the bedside?->YesFINAL REPORT Ultrasound of the Kidneys and Doppler Evaluation, 04/29/2018. Clinical History: ENRIQUE. Discussion:Sonographic evaluation of the kidneys is performed. In addition, color Doppler and spectral waveform analysis evaluations of the renal vasculature are performed. Rightkidney: 12.1 cm in length, normal in size, with cortical thickness of 1.5 cm. Normal cortical echogenicity. No mass. No shadowing calculus. No hydronephrosis. Left kidney : 11.8 cm in length, normal in size, with cortical thickness of 1.5 cm. Normal cortical echogenicity. No mass. No shadowing calculus. No hydronephrosis. Fluid: No perinephric fluid. Bladder: A Paulson catheter is present. Doppler: Segments of the main renal arteries and renal veins sampled demonstrate normal flow. There is elevation of the resistive indices obtained at the renal parenchymal arcuate arteries, ranging from0.77 to 0.85. Impression:1. Normal appearance of the kidneys bilaterally. No evidence of nephrolithiasis or hydronephrosis.2. Unremarkable renal doppler evaluation except for elevation of the resistive indices, a nonspecific finding seen in a variety of renal diseases. Signed: Austin Ken MDReportVerified Date/Time: 04/29/2018 14:53: 07 Reading Location: [address] Ultrasound Reading Room BLOOD GAS, [id number] 14:33:00 Test Item Value Reference Range Comments PH VENOUS (BEAKER) (test sqnd=004) 7.30 7.32-7.42 PCO2 VENOUS (BEAKER) (test pfmp=138) 58 mmHg 41-51 PO2 VENOUS (BEAKER) (test rqjb=104) 25 mmHg 25-40 O2 SATURATION VENOUS (BEAKER) (test asgp=328) 38.0 % 40.0-70.0 HCO3 VENOUS (BEAKER) (test dzgu=079) 28 mmol/L 21-29 BASE EXCESS VENOUS (BEAKER) (test pmld=481) 0.5 mmol/L -2.0-3.0 PATIENT TEMPERATURE (BEAKER) (test xihs=4371) 37.0 C FIO2 (BEAKER) (test znew=7410) 100.0 % POCT-GLUCOSE [id number] 12:20:00 Test Item Value Reference Range Comments POC-GLUCOSE METER (BEAKER) 116 mg/dL 70-[address] [facility] [address] [facility] (test mfnt=9754) [facility] [address] BLOOD GAS, [id number] 10:57:00 Test Item Value Reference Range Comments PH VENOUS (BEAKER) (test wzrw=869) 7.25 7.32-7.42 PCO2 VENOUS (BEAKER) (test nrxd=790) 68 mmHg 41-51 PO2 VENOUS (BEAKER) (test uhjv=919) 34 mmHg 25-40 O2 SATURATION VENOUS (BEAKER) (test uefx=260) 53.1 % 40.0-70.0 HCO3 VENOUS (BEAKER) (test eown=956) 29 mmol/L 21-29 BASE EXCESS VENOUS (BEAKER) (test nvuu=279) 1.2 mmol/L -2.0-3.0 PATIENT TEMPERATURE (BEAKER) (test rfjx=1841) 37.0 C FIO2 (BEAKER) (test xokt=2470) 100.0 % [id number] 10:19:00 Test Item Value Reference Range Comments POTASSIUM (BEAKER) (test lvjh=609) 4.6 meq/L 3.5-5.1 ANTI-NUCLEAR ANTIBODY (ANTONIETA)2018-04-29 10:04:00 Test Item Value Reference Range Comments ANTI-NUCLEAR ANTIBODY (ANTONIETA) (BEAKER) (test Negative Negative adlx=204) Test performed by IFA method.Test performed by IFA method.POCT-GLUCOSE [id number] 08:21:00 Test Item Value Reference Range Comments POC-GLUCOSE METER (BEAKER) 125 mg/dL 70-110 TESTED AT [address] (test warw=5414) [facility] [address] BLOOD GAS, [id number] 06:41:00 Test Item Value Reference Range Comments PH ARTERIAL (BEAKER) (test nbhi=299) 7.20 7.35-7.45 PCO2 ARTERIAL (BEAKER) (test vqax=594) 65 mmHg 35-45 PO2 ARTERIAL (BEAKER) (test brkd=301) 183 mmHg 80-90 O2 SATURATION ARTERIAL (BEAKER) (test hyoo=083) 98.9 % 96.0-97.0 HCO3 ARTERIAL (BEAKER) (test ryxv=586) 25 mmol/L 21-29 BASE EXCESS ARTERIAL (BEAKER) (test eczl=799) -3.8 mmol/L -2.0-3.0 PATIENT TEMPERATURE (BEAKER) (test cnqw=9172) 37.0 C FIO2 (BEAKER) (test bkdb=3512) 28.0 % CALCIUM, [id number] 06:14:00 Test Item Value Reference Range Comments CALCIUM IONIZED (BEAKER) (test fvhy=899) 1.11 mmol/L 1.12-1.27 PH, BLOOD (BEAKER) (test mcbg=4154) 7.20 COMPREHENSIVE METABOLIC [id number] 06:06:00 Test Item Value Reference Range Comments TOTAL PROTEIN (BEAKER) 6.1 gm/dL 6.0-8.3 (test yzgs=324) ALBUMIN (BEAKER) (test 3.3 g/dL 3.5-5.0 rici=8344) ALKALINE PHOSPHATASE 119 U/L 40-150 (BEAKER) (test zrkr=203) BILIRUBIN TOTAL (BEAKER) 2.1 mg/dL 0.2-1.2 (test qrrq=802) SODIUM (BEAKER) (test 136 meq/L 136-145 hrto=220) POTASSIUM (BEAKER) (test 4.5 meq/L 3.5-5.1 uyoj=966) CHLORIDE (BEAKER) (test 104 meq/L 98-107 nccg=506) CO2 (BEAKER) (test 23 meq/L 22-29 ojhi=287) BLOOD UREA NITROGEN 29 mg/dL 7-21 (BEAKER) (test kyqb=315) CREATININE (BEAKER) (test 2.73 mg/dL 0.57-1.25 ohzs=664) GLUCOSE RANDOM (BEAKER) 115 mg/dL 70-105 (test jjot=108) CALCIUM (BEAKER) (test 8.1 mg/dL 8.4-10.2 nbmx=687) AST (SGOT) (BEAKER) (test 850 U/L 5-34 qaff=932) ALT (SGPT) (BEAKER) (test 450 U/L 6-55 abiw=492) EGFR (BEAKER) (test 18 mL/min/1.73 sq m ESTIMATED GFR IS NOT fpca=3945) ACCURATE CREATININE CLEARANCE IN PREDICTING GLOMERULAR FILTRATION RATE. ESTIMATED GFR IS NOT APPLICABLE FOR DIALYSIS PATIENTS. BASIC METABOLIC [id number] 06:05:00 Test Item Value Reference Range Comments SODIUM (BEAKER) (test 136 meq/L 136-145 hrtc=328) POTASSIUM (BEAKER) (test 4.5 meq/L 3.5-5.1 dybf=945) CHLORIDE (BEAKER) (test 104 meq/L 98-107 ozzc=253) CO2 (BEAKER) (test 23 meq/L 22-29 ueoh=535) BLOOD UREA NITROGEN 29 mg/dL 7-21 (BEAKER) (test rpfp=912) CREATININE (BEAKER) (test 2.73 mg/dL 0.57-1.25 gmnh=787) GLUCOSE RANDOM (BEAKER) 115 mg/dL 70-105 (test qpti=723) CALCIUM (BEAKER) (test 8.1 mg/dL 8.4-10.2 fyrs=637) EGFR (BEAKER) (test 18 mL/min/1.73 sq m ESTIMATED GFR IS NOT eblp=9253) ACCURATE CREATININE CLEARANCE IN PREDICTING GLOMERULAR FILTRATION RATE. ESTIMATED GFR IS NOT APPLICABLE FOR DIALYSIS PATIENTS. [id number] 05:13:00 Test Item Value Reference Range Comments PHOSPHORUS (BEAKER) (test pwzg=504) 3.5 mg/dL 2.3-4.7 [id number] 05:13:00 Test Item Value Reference Range Comments MAGNESIUM (BEAKER) (test gimc=831) 2.2 mg/dL 1.6-2.6 HIV-1 ANTIGEN WITH HIV-1/2 [id number] 05:12:00 Test Item Value Reference Range Comments HIV-1 ANTIGEN WITH HIV 1\T\2 ANTIBODY (2) Nonreactive Nonreactive (BEAKER) (test dfsm=2059) LACTIC ACID, ARTERIAL, WHOLE [id number] 04:48:00 Test Item Value Reference Range Comments LACTATE BLOOD ARTERIAL (2) (BEAKER) (test 1.0 mmol/L 0.5-2.2 udki=9347) Effective 12/15/2015: Units/Reference Range ChangeNew: 0.5-2.2 mmol/L Previous: 5 -20 mg/[id number] 04:47:00 Test Item Value Reference Range Comments PARTIAL THROMBOPLASTIN TIME (BEAKER) (test 34.3 seconds 22.5-36.0 armv=536) PROTHROMBIN [id number] 04:45:00 Test Item Value Reference Range Comments PROTIME (BEAKER) (test rzsm=287) 14.9 seconds 11.7-14.7 INR (BEAKER) (test nmpf=295) 1.2 <=5.9 RECOMMENDED COUMADIN/WARFARIN INR THERAPY RANGESSTANDARD DOSE: 2.0 - 3.0 Includes: PROPHYLAXIS forvenous thrombosis, systemic embolization; TREATMENT for venous thrombosis and/or pulmonary embolus.HIGH RISK: Target INR is 2.5-3.5 for patients with mechanical heart valves.CBC (HEMOGRAM ONLY)2018-04-29 04:41:00 Test Item Value Reference Range Comments WHITE BLOOD CELL COUNT (BEAKER) (test lhrf=045) 10.8 K/ L 3.5-10.5 RED BLOOD CELL COUNT (BEAKER) (test qdei=757) 2.62 M/ L 3.93-5.22 HEMOGLOBIN (BEAKER) (test onwx=755) 8.9 GM/DL 11.2-15.7 HEMATOCRIT (BEAKER) (test rurp=803) 27.2 % 34.1-44.9 MEAN CORPUSCULAR VOLUME (BEAKER) (test wovm=594) 103.8 fL 79.4-94.8 MEAN CORPUSCULAR HEMOGLOBIN (BEAKER) (test 34.0 pg 25.6-32.2 mrto=926) MEAN CORPUSCULAR HEMOGLOBIN CONC (BEAKER) (test 32.7 GM/DL 32.2-35.5 tyid=263) RED CELL DISTRIBUTION WIDTH (BEAKER) (test 15.8 % 11.7-14.4 kziv=509) PLATELET COUNT (BEAKER) (test sgps=962) 123 K/CU MM 150-450 MEAN PLATELET VOLUME (BEAKER) (test xfcy=296) 9.9 fL 9.4-12.3 NUCLEATED RED BLOOD CELLS (BEAKER) (test 0 /100 WBC 0-0 ffao=615) [id number] 00:18:00 Test Item Value Reference Range Comments POTASSIUM (BEAKER) (test rrwd=207) 3.9 meq/L 3.5-5.1 POCT-GLUCOSE [id number] 22:25:00 Test Item Value Reference Range Comments POC-GLUCOSE METER (BEAKER) 172 mg/dL 70-[address] [facility] [address] [facility] (test igko=4580) [facility] [id number] [id number] 20:46:00 Test Item Value Reference Range Comments CALCIUM (BEAKER) (test ijht=756) 7.1 mg/dL 8.4-10.2 [id number] 20:34:00 Test Item Value Reference Range Comments PHOSPHORUS (BEAKER) (test 3.5 mg/dL 2.3-4.7 Specimen slightly hemolyzed uvwp=798) [id number] 20:34:00 Test Item Value Reference Range Comments POTASSIUM (BEAKER) (test 3.9 meq/L 3.5-5.1 Specimen slightly hemolyzed mzmv=203) [id number] 20:32:00 Test Item Value Reference Range Comments MAGNESIUM (BEAKER) (test 2.2 mg/dL 1.6-2.6 Specimen slightly hemolyzed lams=795) POCT-GLUCOSE [id number] 18:02:00 Test Item Value Reference Range Comments POC-GLUCOSE METER (BEAKER) 151 mg/dL 70-[address] [facility] [address] [facility] (test whbw=2889) [facility] [address] [id number] 15:43:00 Test Item Value Reference Range Comments POTASSIUM (BEAKER) (test nerv=967) 4.0 meq/L 3.5-5.1 RAD, CHEST, 1 VIEW, NON [id number] 15:34:00Reason for exam:->HD cath placementShould this be performed at the bedside?->YesFINAL REPORT AP chest HISTORY: 04/28/2018 IMPRESSION:Right IJ dialysis catheter placed with tip at upper SVC. Remainder supportive lines unchanged. Stable cardiac silhouette. Hypoinflation. Mild perihilar atelectasis. No pneumothorax. Signed: Madeleine Stevens MDReport Verified Date/Time: 04/28/2018 15:34:26 Reading Location: [address] Ortho Consult Reading Room PLATELET [id number] 15:32:00 Test Item Value Reference Range Comments PLATELET COUNT (BEAKER) (test ohej=823) 105 K/CU MM 150-450 Please draw in citrate (blue top) tube at next blood drawACETAMINOPHEN [id number] 11:35:00 Test Item Value Reference Range Comments ACETAMINOPHEN LEVEL (BEAKER) (test ymne=276) < ug/mL 10.0-30.0 Therapeutic Range: 10.0-30.0 g/mLToxic Levels: >200.0 g/mLPOCT- GLUCOSE [id number] 11:15:00 Test Item Value Reference Range Comments POC-GLUCOSE METER (BEAKER) 152 mg/dL 70-[address] [facility] [address] [facility] (test hxqg=7625) [facility] [address] HEPATITIS B SURFACE [id number] 11:06:00 Test Item Value Reference Range Comments HEPATITIS B SURFACE ANTIGEN (2) (BEAKER) (test Nonreactive Nonreactive dyqp=5190) HEPATITIS B CORE ANTIBODY, [id number] 11:06:00 Test Item Value Reference Range Comments HEPATITIS B CORE IGM ANTIBODY (BEAKER) (test Nonreactive Nonreactive iewa=867) HEPATITIS C [id number] 11:06:00 Test Item Value Reference Range Comments HEPATITIS C ANTIBODY (BEAKER) (test tjvs=702) Nonreactive Nonreactive HEPATITIS A ANTIBODY, [id number] 11:06:00 Test Item Value Reference Range Comments HEPATITIS A IGM ANTIBODY (BEAKER) (test Nonreactive Nonreactive thva=362) PROTEIN, RANDOM [id number] 11:03:00 Test Item Value Reference Range Comments PROTEIN, URINE (BEAKER) (test hesn=0832) 191 mg/dL 0-14 HEMOGLOBIN [id number] 10:45:00 Test Item Value Reference Range Comments HEMOGLOBIN A1C (BEAKER) (test dpsa=813) 5.5 % 4.3-6.1 CREATININE, RANDOM [id number] 10:42:00 Test Item Value Reference Range Comments CREATININE URINE (BEAKER) (test ajmc=246) 50.7 mg/dL Reference Range: No NormalsSODIUM, RANDOM [id number] 10:42:00 Test Item Value Reference Range Comments SODIUM URINE (BEAKER) (test ztsx=158) 48 meq/L Reference Range: No NormalsBASIC METABOLIC [id number] 09:24:00 Test Item Value Reference Range Comments SODIUM (BEAKER) (test 132 meq/L 136-145 twao=863) POTASSIUM (BEAKER) (test 3.7 meq/L 3.5-5.1 bljt=767) CHLORIDE (BEAKER) (test 101 meq/L 98-107 nyow=561) CO2 (BEAKER) (test 18 meq/L 22-29 mbfu=976) BLOOD UREA NITROGEN 53 mg/dL 7-21 (BEAKER) (test tqyy=459) CREATININE (BEAKER) (test 4.49 mg/dL 0.57-1.25 coym=932) GLUCOSE RANDOM (BEAKER) 127 mg/dL 70-105 (test mknr=489) CALCIUM (BEAKER) (test 6.8 mg/dL 8.4-10.2 lioc=764) EGFR (BEAKER) (test 10 mL/min/1.73 sq m ESTIMATED GFR IS NOT clwj=6537) ACCURATE CREATININE CLEARANCE IN PREDICTING GLOMERULAR FILTRATION RATE. ESTIMATED GFR IS NOT APPLICABLE FOR DIALYSIS PATIENTS. CALCIUM, [id number] 09:19:00 Test Item Value Reference Range Comments CALCIUM IONIZED (BEAKER) (test rfhc=138) 0.93 mmol/L 1.12-1.27 PH, BLOOD (BEAKER) (test cvsg=7477) 7.20 [id number] 09:13:00 Test Item Value Reference Range Comments HAPTOGLOBIN (BEAKER) (test kbuf=202) 164 mg/dL 14-258 [id number] 09:12:00 Test Item Value Reference Range Comments PHOSPHORUS (BEAKER) (test gcdp=972) 4.5 mg/dL 2.3-4.7 [id number] 09:12:00 Test Item Value Reference Range Comments MAGNESIUM (BEAKER) (test ymrx=928) 1.7 mg/dL 1.6-2.6 RAD, CHEST, 1 VIEW, NON [id number] 09:01:00Reason for exam:-> hypoxiaShould this be performed at the bedside?->YesFINAL REPORT AP chest HISTORY: Hypoxia COMPARISON: 04/27/2018 IMPRESSION: Supportive lines unchanged. Stable cardiac silhouette. Minimal perihilar atelectasis. No pneumothorax. Signed: Madeleine Stevens MDReport Verified Date/ Time: 04/28/2018 09:01:47 Reading Location: [facility] O883RKzish Consult Reading Room 09: 01 AMPERIPHERAL BLOOD SMEAR - HOLD [id number] 08:58:00 Test Item Value Reference Range Comments PERIPHERAL SMEAR SAVE (BEAKER) (test sftn=7510) saved RETICULOCYTE [id number] 08:58:00 Test Item Value Reference Range Comments RETICULOCYTE COUNT PCT (BEAKER) (test ndvl=848) 3.6 % 0.5-1.7 HEMOGLOBIN AND [id number] 08:52:00 Test Item Value Reference Range Comments HEMOGLOBIN (BEAKER) (test exes=416) 8.2 GM/DL 11.2-15.7 HEMATOCRIT (BEAKER) (test vmyx=353) 24.9 % 34.1-44.9 CBC W/PLT COUNT & AUTO [id number] 07:40:00 Test Item Value Reference Range Comments WHITE BLOOD CELL COUNT (BEAKER) (test nfpx=595) 5.2 K/ L 3.5-10.5 RED BLOOD CELL COUNT (BEAKER) (test ihki=993) 2.31 M/ L 3.93-5.22 HEMOGLOBIN (BEAKER) (test txci=319) 7.9 GM/DL 11.2-15.7 HEMATOCRIT (BEAKER) (test ingg=510) 23.8 % 34.1-44.9 MEAN CORPUSCULAR VOLUME (BEAKER) (test xkqo=404) 103.0 fL 79.4-94.8 MEAN CORPUSCULAR HEMOGLOBIN (BEAKER) (test 34.2 pg 25.6-32.2 cypg=318) MEAN CORPUSCULAR HEMOGLOBIN CONC (BEAKER) (test 33.2 GM/DL 32.2-35.5 ujun=424) RED CELL DISTRIBUTION WIDTH (BEAKER) (test 15.3 % 11.7-14.4 mlml=420) PLATELET COUNT (BEAKER) (test mtez=737) 88 K/CU MM 150-450 MEAN PLATELET VOLUME (BEAKER) (test fieg=683) 9.7 fL 9.4-12.3 NUCLEATED RED BLOOD CELLS (BEAKER) (test 1 /100 WBC 0-0 frfj=194) (MANUAL DIFFERENTIAL)2018-04-28 07:40:00 Test Item Value Reference Range Comments NEUTROPHILS - REL (DIFF) (BEAKER) (test 85 % pspg=9575) LYMPHOCYTES - REL (DIFF) (BEAKER) (test 7 % ksiy=7864) MONOCYTES - REL (DIFF) (BEAKER) (test ylkh=6130) 1 % EOSINOPHILS - REL (DIFF) (BEAKER) (test 1 % zaln=1686) BASOPHILS - REL (DIFF) (BEAKER) (test myzf=4047) 0 % BANDS - REL (DIFF) (BEAKER) (test qvls=7560) 5 % 0-10 ATYPICAL LYMPHOCYTE - REL (DIFF) (BEAKER) (test 1 % 0-0 uhax=303) NEUTROPHILS - ABS (DIFF) (BEAKER) (test 4.42 K/ L 1.80-8.00 aidz=3658) LYMPHOCYTES - ABS (DIFF) (BEAKER) (test 0.36 K/ L 1.48-4.50 kjwm=9177) MONOCYTES - ABS (DIFF) (BEAKER) (test xebc=5359) 0.05 K/ L 0.00-1.30 EOSINOPHILS - ABS (DIFF) (BEAKER) (test 0.05 K/ L 0.00-0.50 izmr=7293) BASOPHILS - ABS (DIFF) (BEAKER) (test vevb=5634) 0.00 K/ L 0.00-0.20 BANDS-ABS (DIFF) (BEAKER) (test uagt=0986) 0.3 K/ L 0.0-0.8 ATYPICAL LYMPHOCYTES - ABS (DIFF) (BEAKER) (test 0.05 K/ L 0.00-0.00 pade=023) TOTAL COUNTED (BEAKER) (test svhj=0159) 100 BANDS + SEGMENTED NEUTROPHILS (BEAKER) (test 4.68 jhuy=9522) MANUAL NRBC PER 100 CELLS (BEAKER) (test 1 /100 WBC 0-0 sotz=5454) PLT MORPHOLOGY (BEAKER) (test rghz=309) Normal RBC MORPHOLOGY (BEAKER) (test jcdo=589) Normal VACUOLATED NEUTROPHILS (BEAKER) (test bjto=376) Present URINE [id number] 05:57:00 Test Item Value Reference Range Comments CULTURE (BEAKER) (test kasf=0149) No growth [id number] 05:00:00 Test Item Value Reference Range Comments PHOSPHORUS (BEAKER) (test botp=268) 4.4 mg/dL 2.3-4.7 [id number] 05:00:00 Test Item Value Reference Range Comments MAGNESIUM (BEAKER) (test bcoo=522) 1.6 mg/dL 1.6-2.6 HEMOGLOBIN AND [id number] 04:48:00 Test Item Value Reference Range Comments HEMOGLOBIN (BEAKER) (test hnpg=495) 8.0 GM/DL 11.2-15.7 HEMATOCRIT (BEAKER) (test saot=932) 24.0 % 34.1-44.9 LIPID [id number] 03:38:00 Test Item Value Reference Range Comments TRIGLYCERIDES (BEAKER) (test ygsa=229) 322 mg/dL CHOLESTEROL (BEAKER) (test qtmj=261) 131 mg/dL HDL CHOLESTEROL (BEAKER) (test xxfr=312) 6 mg/dL LDL CHOLESTEROL CALCULATED (BEAKER) (test 61 mg/dL diht=024) Triglyceride Reference Range: Low Risk <150 Borderline 150- 199 High Risk 200-499 Very High Risk >=500Cholesterol Reference Range: Low Risk <200 Borderline 200-239 High Risk > 240HDL Cholesterol Reference Range: Low Risk >=60 High Risk <40LDL Cholesterol Reference Range: Optimal <100 Near Optimal 100-129 Borderline 130-159 High 160-189 Very High >=190HEPATIC FUNCTION [id number] 03:38:00 Test Item Value Reference Range Comments TOTAL PROTEIN (BEAKER) (test bidn=802) 4.8 gm/dL 6.0-8.3 ALBUMIN (BEAKER) (test qxpf=4220) 2.7 g/dL 3.5-5.0 BILIRUBIN TOTAL (BEAKER) (test ubeu=687) 1.8 mg/dL 0.2-1.2 BILIRUBIN DIRECT (BEAKER) (test dura=507) 1.3 mg/dL 0.1-0.5 ALKALINE PHOSPHATASE (BEAKER) (test vrbz=914) 83 U/L 40-150 AST (SGOT) (BEAKER) (test nbfq=416) 1541 U/L 5-34 ALT (SGPT) (BEAKER) (test cwiz=584) 487 U/L 6-55 LACTATE DEHYDROGENASE (LDH)2018-04-28 03:38:00 Test Item Value Reference Range Comments LACTATE DEHYDROGENASE (BEAKER) (test egug=557) 1138 U/L 125-220 [id number] 03:38:00 Test Item Value Reference Range Comments LIPASE (BEAKER) (test udas=032) 525 U/L 8-78 C-REACTIVE [id number] 03:38:00 Test Item Value Reference Range Comments C-REACTIVE PROTEIN (BEAKER) (test wbtt=801) 12.99 mg/dL 0.00-0.50 [id number] 03:23:00 Test Item Value Reference Range Comments FIBRINOGEN LEVEL (BEAKER) (test auge=697) 328 mg/dl 225-434 [id number] 03:23:00 Test Item Value Reference Range Comments PROTIME (BEAKER) (test zsxp=854) 16.2 seconds 11.7-14.7 INR (BEAKER) (test pckh=407) 1.3 <=5.9 PARTIAL THROMBOPLASTIN TIME (BEAKER) (test 26.9 seconds 22.5-36.0 sojd=227) RECOMMENDED COUMADIN/WARFARIN INR THERAPY RANGESSTANDARD DOSE: 2.0 - 3.0 Includes: PROPHYLAXIS forvenous thrombosis, systemic embolization; TREATMENT for venous thrombosis and/or pulmonary embolus.HIGH RISK: Target INR is 2.5-3.5 for patients with mechanical heart valves.PROTHROMBIN [id number] 03:22: 00 Test Item Value Reference Range Comments PROTIME (BEAKER) (test nfph=853) 16.2 seconds 11.7-14.7 INR (BEAKER) (test iaip=772) 1.3 <=5.9 RECOMMENDED COUMADIN/WARFARIN INR THERAPY RANGESSTANDARD DOSE: 2.0 - 3.0 Includes: PROPHYLAXIS forvenous thrombosis, systemic embolization; TREATMENT for venous thrombosis and/or pulmonary embolus.HIGH RISK: Target INR is 2.5-3.5 for patients with mechanical heart valves.POCT-GLUCOSE [id number] 02:57:00 Test Item Value Reference Range Comments POC-GLUCOSE METER (BEAKER) 135 mg/dL 70-[address] [facility] [address] [facility] (test rbtl=7618) [facility] [address] POCT-GLUCOSE [id number] 00:21:00 Test Item Value Reference Range Comments POC-GLUCOSE METER (BEAKER) 177 mg/dL 70-[address] [facility] [address] [facility] (test rmxf=4800) [facility] [address] HEMOGLOBIN AND [id number] 00:21:00 Test Item Value Reference Range Comments HEMOGLOBIN (BEAKER) (test tblp=894) 8.3 GM/DL 11.2-15.7 HEMATOCRIT (BEAKER) (test fnie=343) 24.6 % 34.1-44.9 POCT-GLUCOSE [id number] 22:08:00 Test Item Value Reference Range Comments POC-GLUCOSE METER (BEAKER) 156 mg/dL 70-[address] [facility] [address] [facility] (test ibfa=1817) [facility] [address] POCT-GLUCOSE [id number] 18:16:00 Test Item Value Reference Range Comments POC-GLUCOSE METER (BEAKER) 156 mg/dL 70-110 TESTED AT [address] (test wqxc=3132) [facility] [address] LACTATE DEHYDROGENASE (LDH)2018-04-27 16:18:00 Test Item Value Reference Range Comments LACTATE DEHYDROGENASE (BEAKER) (test rgsk=255) 1130 U/L 125-220 RAD, CHEST, 1 VIEW, NON [id number] 15:58:00Reason for exam:->LIJ placementShould this be performed at the bedside?->YesFINAL REPORT HISTORY : LIJ placement. Comparison: 04/27/2018 performed earlierComment: Single portable view of the chest was obtained. The cardiac silhouette size is enlarged. There is a tortuous/ectatic thoracic aorta. No pneumothorax or pleural effusion is seen. There is somemild pulmonary venous congestion. Some mild interstitial prominence could represent interstitial edema. There is a gastric tube in place with the tip not included on the film. A left-sided internal jugular venous catheter is in place with the tip projecting over the superior vena cava. No lytic or blastic abnormalities are seen. Signed: Yanet Woods MDReport Verified Date/Time: 04/27/2018 15:58:19 Reading Location: [facility] C013T Transitional Reading Room HEMOGLOBIN AND [id number] 15:37:00 Test Item Value Reference Range Comments HEMOGLOBIN (BEAKER) (test pqan=218) 8.8 GM/DL 11.2-15.7 HEMATOCRIT (BEAKER) (test fqzt=482) 26.1 % 34.1-44.9 PERIPHERAL BLOOD SMEAR - HOLD [id number] 14:50:00 Test Item Value Reference Range Comments PERIPHERAL SMEAR SAVE (BEAKER) (test clpg=7255) saved C-REACTIVE [id number] 12:47:00 Test Item Value Reference Range Comments C-REACTIVE PROTEIN (BEAKER) (test sdhd=923) 9.17 mg/dL 0.00-0.50 POCT-GLUCOSE [id number] 12:15:00 Test Item Value Reference Range Comments POC-GLUCOSE METER (BEAKER) 164 mg/dL 70-[address] [facility] [address] [facility] (test ciot=5614) [facility] [address] B-TYPE NATRIURETIC FACTOR (BNP)2018-04-27 11:37:00 Test Item Value Reference Range Comments B-TYPE NATRIURETIC PEPTIDE (BEAKER) (test 176 pg/mL 0-100 kwcr=868) HEMOGLOBIN AND [id number] 11:08:00 Test Item Value Reference Range Comments HEMOGLOBIN (BEAKER) (test wxqv=220) 8.7 GM/DL 11.2-15.7 HEMATOCRIT (BEAKER) (test dpdu=401) 25.6 % 34.1-44.9 [id number] 10:07:00 Test Item Value Reference Range Comments FERRITIN (BEAKER) (test cjyq=573) 4542 ng/mL 5-275 VITAMIN [id number] 10:06:00 Test Item Value Reference Range Comments VITAMIN B12 (BEAKER) (test uwxi=630) > pg/mL 213-816 CBC W/PLT COUNT & AUTO [id number] 09:11:00 Test Item Value Reference Range Comments WHITE BLOOD CELL COUNT (BEAKER) (test urxb=906) 4.9 K/ L 3.5-10.5 RED BLOOD CELL COUNT (BEAKER) (test qiiw=912) 2.72 M/ L 3.93-5.22 HEMOGLOBIN (BEAKER) (test fqbu=681) 9.3 GM/DL 11.2-15.7 HEMATOCRIT (BEAKER) (test wdai=586) 27.0 % 34.1-44.9 MEAN CORPUSCULAR VOLUME (BEAKER) (test jqjm=924) 99.3 fL 79.4-94.8 MEAN CORPUSCULAR HEMOGLOBIN (BEAKER) (test 34.2 pg 25.6-32.2 tmtq=088) MEAN CORPUSCULAR HEMOGLOBIN CONC (BEAKER) (test 34.4 GM/DL 32.2-35.5 mwng=296) RED CELL DISTRIBUTION WIDTH (BEAKER) (test 14.4 % 11.7-14.4 tbpe=764) PLATELET COUNT (BEAKER) (test wejt=775) 111 K/CU MM 150-450 MEAN PLATELET VOLUME (BEAKER) (test mndy=584) 9.5 fL 9.4-12.3 NUCLEATED RED BLOOD CELLS (BEAKER) (test 1 /100 WBC 0-0 wfuh=559) (CELLAVISION MANUAL DIFF)2018-04-27 09:11:00 Test Item Value Reference Range Comments NEUTROPHILS - REL (CELLAVISION)(BEAKER) (test 61 % hpao=0587) LYMPHOCYTES - REL (CELLAVISION)(BEAKER) (test 8 % kwve=6751) MONOCYTES - REL (CELLAVISION)(BEAKER) (test 4 % dwcu=2282) EOSINOPHILS - REL (CELLAVISION)(BEAKER) (test 1 % pyab=8312) BANDS - REL (CELLAVISION)(BEAKER) (test 26 % 0-10 ejuq=8833) NEUTROPHILS - ABS (CELLAVISION)(BEAKER) (test 2.99 K/ul 1.56-6.13 ecxw=0319) LYMPHOCYTES - ABS (CELLAVISION)(BEAKER) (test 0.39 K/ul 1.18-3.74 neou=3411) MONOCYTES - ABS (CELLAVISION)(BEAKER) (test 0.20 K/uL 0.24-0.36 pnye=6020) EOSINOPHILS - ABS (CELLAVISION)(BEAKER) (test 0.05 K/uL 0.04-0.36 cikt=4223) BANDS - ABS (CELLAVISION)(BEAKER) (test 1.27 K/uL 0.00-0.80 iypx=2835) TOTAL COUNTED (BEAKER) (test bycu=2670) 100 MANUAL NRBC PER 100 CELLS (BEAKER) (test 2 /100 WBC 0-0 ysmg=0263) RBC MORPHOLOGY (BEAKER) (test zxib=841) Normal WBC MORPHOLOGY (BEAKER) (test wpnj=952) Normal PLT MORPHOLOGY (BEAKER) (test uitt=630) Normal ARTIFACT (CELLAVISION)(BEAKER) (test lwjy=6834) Present PLATELET CONCENTRATION (CELLAVISION)(BEAKER) Decreased (test yjhw=9665) Received comment: User comments: Slide comments:IRON, TIBC, % SAT. (WITHOUT FERRITIN)2018-04-27 09:05:00 Test Item Value Reference Range Comments IRON (BEAKER) (test txbm=217) 40 ug/dL 40-160 TOTAL IRON BINDING CAPACITY (BEAKER) (test 111 ug/dL 250-450 swbx=965) IRON % SATURATION (2) (BEAKER) (test gaen=4114) 36 % 20-55 [id number] 09:03:00 Test Item Value Reference Range Comments PHOSPHORUS (BEAKER) (test jbgd=371) 4.2 mg/dL 2.3-4.7 LACTIC ACID, VENOUS, WHOLE [id number] 09:00:00 Test Item Value Reference Range Comments LACTATE BLOOD VENOUS (2) (BEAKER) (test 1.0 mmol/L 0.5-2.2 ipzd=1577) Effective 12/15/2015: Units/Reference Range ChangeNew: 0.5-2.2 mmol/L Previous: 5 -20 mg/dLHEMOGLOBIN [id number] 08:35:00 Test Item Value Reference Range Comments HEMOGLOBIN A1C (BEAKER) (test hcxe=264) 5.0 % 4.3-6.1 U/S, ABDOMINAL, [id number] 07:57:00Abdomen limited area? Add comment if clarification is needed.->Right upper quadrantReason for exam:-> pancreatitis, fatty liver, LFT elevationShould this be performed at the bedside? ->YesFINAL REPORT Limited Abdominal ultrasound. Clinical history: pancreatitis, fatty liver, LFT elevation Comparison study: None Findings: The liver is echogenic in nature consistentwith fatty infiltration. It measures 22.0 cm in [...] present. The proximal aorta is unremarkable. The remainderof the abdomen was not assessed. Impression : 1. Enlarged, echogenic liver consistent with fatty infiltration.2. Gallbladder distention but no definite sonographic evidence of acute cholecystitis.3. Dilatation of the common bile duct. This could be further assessed with MRCP. Signed: Moses Baeza MDReport Verified Date/Time: 2017 07:57:35 Reading Location: [address] Reading Room [id number] 07:07:00 Test Item Value Reference Range Comments MAGNESIUM (BEAKER) (test ztcm=668) 1.8 mg/dL 1.6-2.6 LACTIC ACID, VENOUS, WHOLE [id number] 07:05:00 Test Item Value Reference Range Comments LACTATE BLOOD VENOUS (2) 1.1 mmol/L 0.5-2.2 Specimen slightly hemolyzed (BEAKER) (test qqvr=9632) Effective 12/15/2015: Units/Reference Range ChangeNew: 0.5-2.2 mmol/L Previous: 5 -20 mg/dLHEMOGLOBIN AND [id number] 06:54:00 Test Item Value Reference Range Comments HEMOGLOBIN (BEAKER) (test klns=584) 9.0 GM/DL 11.2-15.7 HEMATOCRIT (BEAKER) (test issr=049) 26.7 % 34.1-44.9 POCT-GLUCOSE [id number] 06:28:00 Test Item Value Reference Range Comments POC-GLUCOSE METER (BEAKER) 122 mg/dL 70-[address] [facility] [address] [facility] (test toay=4561) [facility] [address] [id number] 05:17:00 Test Item Value Reference Range Comments AMMONIA (BEAKER) (test pfhf=172) 40 mol/L 18-72 POCT-GLUCOSE [id number] 04:46:00 Test Item Value Reference Range Comments POC-GLUCOSE METER (BEAKER) 166 mg/dL 70-[address] [facility] [address] (test esot=4704) [facility] [address] BLOOD GAS, [id number] 04:15:00 Test Item Value Reference Range Comments PH ARTERIAL (BEAKER) (test tuml=308) 7.34 7.35-7.45 PCO2 ARTERIAL (BEAKER) (test dblq=073) 38 mm Hg 35-45 PO2 ARTERIAL (BEAKER) (test nllh=571) 113 mm Hg 80-90 O2 SATURATION ARTERIAL (BEAKER) (test dagp=864) 97.6 % 96.0-97.0 HCO3 ARTERIAL (BEAKER) (test lsxu=433) 19 mmol/L 21-29 BASE EXCESS ARTERIAL (BEAKER) (test xode=461) -5.9 mmol/L -2.0-3.0 PATIENT TEMPERATURE (BEAKER) (test xftl=8088) 38.3 FIO2 (BEAKER) (test ulme=3320) 32 URINALYSIS W/ [id number] 01:36:00 Test Item Value Reference Range Comments COLOR (BEAKER) (test klnx=336) Dark Yellow CLARITY (BEAKER) (test ibrn=639) Hazy SPECIFIC GRAVITY UA (BEAKER) (test hgec=242) 1.035 1.001-1.035 PH UA (BEAKER) (test puuq=676) 5.5 5.0-8.0 PROTEIN UA (BEAKER) (test brle=015) 200 mg/dL Negative GLUCOSE UA (BEAKER) (test lpqb=485) 100 mg/dL Negative KETONES UA (BEAKER) (test kqdf=574) Negative Negative BILIRUBIN UA (BEAKER) (test heit=109) Positive Negative BLOOD UA (BEAKER) (test kxgy=582) Large Negative NITRITE UA (BEAKER) (test lppl=336) Negative Negative LEUKOCYTE ESTERASE UA (BEAKER) (test jbaj=003) Small Negative UROBILINOGEN UA (BEAKER) (test awec=413) 2.0 mg/dL 0.2-1.0 RBC UA (BEAKER) (test vdck=488) 83 /HPF WBC UA (BEAKER) (test wjra=029) 16 /HPF MUCUS (BEAKER) (test nzkv=1643) Rare GRANULAR CASTS (BEAKER) (test zalr=007) 8 /LPF AMORPHOUS CRYSTALS (BEAKER) (test eyta=4723) Moderate SOURCE(BEAKER) (test zwot=2426) Urine, [place] HEMOGLOBIN AND [id number] 01:19:00 Test Item Value Reference Range Comments HEMOGLOBIN (BEAKER) (test bfus=742) 9.0 GM/DL 11.2-15.7 HEMATOCRIT (BEAKER) (test xcta=164) 26.3 % 34.1-44.9 [id number] 00:57:00 Test Item Value Reference Range Comments PHOSPHORUS (BEAKER) (test iasa=612) 0.7 mg/dL 2.3-4.7 COMPREHENSIVE METABOLIC [id number] 00:55:00 Test Item Value Reference Range Comments TOTAL PROTEIN (BEAKER) 4.7 gm/dL 6.0-8.3 (test dcye=279) ALBUMIN (BEAKER) (test 2.8 g/dL 3.5-5.0 sceh=0744) ALKALINE PHOSPHATASE 79 U/L 40-150 (BEAKER) (test mhgx=239) BILIRUBIN TOTAL (BEAKER) 2.9 mg/dL 0.2-1.2 (test lrzt=713) SODIUM (BEAKER) (test 130 meq/L 136-145 qomw=879) POTASSIUM (BEAKER) (test 3.2 meq/L 3.5-5.1 ldxz=297) CHLORIDE (BEAKER) (test 99 meq/L 98-107 uytc=033) CO2 (BEAKER) (test 19 meq/L 22-29 zskq=822) BLOOD UREA NITROGEN 41 mg/dL 7-21 (BEAKER) (test uysq=614) CREATININE (BEAKER) (test 2.58 mg/dL 0.57-1.25 pffm=789) GLUCOSE RANDOM (BEAKER) 178 mg/dL 70-105 (test amfr=760) CALCIUM (BEAKER) (test 7.2 mg/dL 8.4-10.2 erir=430) AST (SGOT) (BEAKER) (test 845 U/L 5-34 swjl=496) ALT (SGPT) (BEAKER) (test 275 U/L 6-55 ssmq=373) EGFR (BEAKER) (test 19 mL/min/1.73 sq m ESTIMATED GFR IS NOT ylfg=7620) ACCURATE CREATININE CLEARANCE IN PREDICTING GLOMERULAR FILTRATION RATE. ESTIMATED GFR IS NOT APPLICABLE FOR DIALYSIS PATIENTS. Specimen slightly [id number] 00:53:00 Test Item Value Reference Range Comments MAGNESIUM (BEAKER) (test tyzt=870) 1.9 mg/dL 1.6-2.6 LIPID [id number] 00:53:00 Test Item Value Reference Range Comments TRIGLYCERIDES (BEAKER) (test jexg=397) 742 mg/dL CHOLESTEROL (BEAKER) (test zdbp=839) 146 mg/dL HDL CHOLESTEROL (BEAKER) (test snai=696) 9 mg/dL Calculated LDL not valid if triglyceride >400 mg/dLTriglyceride Reference Range: Low Risk <150 Borderline 150-199 High Risk 200-499 Very High Risk >=500Cholesterol Reference Range: Low Risk <200 Borderline 200-239 High Risk >240HDL Cholesterol Reference Range: Low Risk >=60 High Risk <40LDL Cholesterol ReferenceRange: Optimal <100 Near Optimal 100-129 Borderline 130-159 High 160-189 Very High >=190 Specimen slightly ictericCALCIUM, [id number] 00:50:00 Test Item Value Reference Range Comments CALCIUM IONIZED (BEAKER) (test qfda=421) 1.02 mmol/L 1.12-1.27 PH, BLOOD (BEAKER) (test fdaf=0905) 7.31 LACTIC ACID, VENOUS, WHOLE [id number] 00:47:00 Test Item Value Reference Range Comments LACTATE BLOOD VENOUS (2) (BEAKER) (test 3.6 mmol/L 0.5-2.2 jskw=9982) Effective 12/15/2015: Units/Reference Range ChangeNew: 0.5-2.2 mmol/L Previous: 5 -20 mg/dLCBC W/PLT COUNT & AUTO [id number] 00:40:00 Test Item Value Reference Range Comments WHITE BLOOD CELL COUNT (BEAKER) (test jmcz=015) 5.6 K/ L 3.5-10.5 RED BLOOD CELL COUNT (BEAKER) (test ogig=281) 2.94 M/ L 3.93-5.22 HEMOGLOBIN (BEAKER) (test xcpu=727) 10.1 GM/DL 11.2-15.7 HEMATOCRIT (BEAKER) (test xosg=286) 29.3 % 34.1-44.9 MEAN CORPUSCULAR VOLUME (BEAKER) (test okcx=363) 99.7 fL 79.4-94.8 MEAN CORPUSCULAR HEMOGLOBIN (BEAKER) (test 34.4 pg 25.6-32.2 nvco=084) MEAN CORPUSCULAR HEMOGLOBIN CONC (BEAKER) (test 34.5 GM/DL 32.2-35.5 zjcp=976) RED CELL DISTRIBUTION WIDTH (BEAKER) (test 14.3 % 11.7-14.4 iwey=229) PLATELET COUNT (BEAKER) (test ouzh=728) 124 K/CU MM 150-450 MEAN PLATELET VOLUME (BEAKER) (test qpns=762) 9.3 fL 9.4-12.3 NUCLEATED RED BLOOD CELLS (BEAKER) (test 1 /100 WBC 0-0 jfsy=638) (CELLAVISION MANUAL DIFF)2018-04-27 00:40:00 Test Item Value Reference Range Comments NEUTROPHILS - REL 46 % Green-Blue Neutrophilic (CELLAVISION)(BEAKER) (test inclusions seen. almr=2118) LYMPHOCYTES - REL 4 % (CELLAVISION)(BEAKER) (test fowx=4254) MONOCYTES - REL 3 % (CELLAVISION)(BEAKER) (test mkni=0753) BANDS - REL 47 % 0-10 (CELLAVISION)(BEAKER) (test hwrb=3488) NEUTROPHILS - ABS 2.58 K/ul 1.56-6.13 (CELLAVISION)(BEAKER) (test mkne=2408) LYMPHOCYTES - ABS 0.22 K/ul 1.18-3.74 (CELLAVISION)(BEAKER) (test hbms=8232) MONOCYTES - ABS 0.17 K/uL 0.24-0.36 (CELLAVISION)(BEAKER) (test dfgc=3599) BANDS - ABS 2.63 K/uL 0.00-0.80 (CELLAVISION)(BEAKER) (test epdo=6700) TOTAL COUNTED (BEAKER) (test 100 lrvb=0039) LARGE PLT(BEAKER) (test Present spon=2493) TOXIC GRANULATION (BEAKER) Present (test rotb=524) BASOPHILIC STIPPLING (BEAKER) Present (test mgcj=386) ARTIFACT (CELLAVISION)(BEAKER) Present (test crsm=3105) PLATELET CONCENTRATION Decreased (CELLAVISION)(BEAKER) (test zgzo=4553) Green-Blue Neutrophilic inclusions seen.RAD, CHEST, 1 VIEW, NON [id number] 00:24:00Reason for exam:->sob, coughShould this be performed at the bedside?- >YesFINAL REPORT Chest one view. Clinical history: Shortness of breath and cough. Comparison: None. Technique: A single frontal view of the chest was obtained. Findings/impression:There is a feeding tube which projects below the diaphragm and overlies the stomach. There are low lung volumes. There is linear scarring in the right midlung. There is a small opacity in the retrocardiac region which may represent atelectasis and/or pneumonia. There is no pneumothorax or pleural effusion. The heart is normal in size. The aorta is uncoiled. Signed: Meghna Mares MDReport Verified Date/ Time: 04/27/2018 00:24:54 Reading Location: [address] Body Reading Room PROTHROMBIN TIME/[id number] 23:51:00 Test Item Value Reference Range Comments PROTIME (BEAKER) (test zquw=032) 15.5 seconds 11.7-14.7 INR (BEAKER) (test mubg=991) 1.2 <=5.9 RECOMMENDED COUMADIN/WARFARIN INR THERAPY RANGESSTANDARD DOSE: 2.0 - 3.0 Includes: PROPHYLAXIS forvenous thrombosis, systemic embolization; TREATMENT for venous thrombosis and/or pulmonary embolus.HIGH RISK: Target INR is 2.5-3.5 for patients with mechanical heart valves.[id number] 23:51:00 Test Item Value Reference Range Comments FIBRINOGEN LEVEL (BEAKER) (test korg=658) 231 mg/dl 225-434
[2018-10-03 16:44] LABS: Absolute Lymphocytes (CBC) 0.7 K/uL (0.7-4.9); Absolute Neutrophil 7.9 K/uL (1.8-8.0); Basophils % 0.2 % (0-1.3); Lymphocytes % 7.3 % (15.3-44.8); MPV 7.7 fL (7.6-11.3); RBC Red Blood Cell Count 4.74 M/uL (3.86-4.86)
[2018-10-03 17:07] LABS: Albumin 4.8 g/dL (3.4-5.0); Bilirubin Direct 0.3 mg/dL (0-0.2); Bilirubin Total 0.9 mg/dL (0.2-1.0); Magnesium 2.4 mg/dL (1.8-2.4); Protein, Total 9.7 g/dL (6.4-8.2); Troponin (Emerg Dept Use Only) 0.48 ng/mL (0.0-0.045)
[2018-10-03 17:09] LABS: Anisocytosis 1+; Blood Morphology Comment NOTED (NOT SEEN); Platelet Estimate ADEQ; Platelets, Giant FEW; Polychromasia SLIGHT; Urine White Blood Cell Casts OK
[2018-10-03 17:50] LABS: Arterial Blood Carboxyhemoglob 2.1 % (0-1.5); Blood Gas Oxyhemoglobin 93.7 % (94-97); Blood O2 Saturation 96.9 % (92-98.5)
[2018-10-03 18:01] LABS: Urine Blood 2+ (NEG); Urine Glucose NEGATIVE (NEG); Urine Protein 3+ (NEG)
[2018-10-03 18:01] LABS: Urine Bacteria 20-50 /HPF (<20); Urine Culture Reflex Order REFLEXED; Urine Mucus 1+ /HPF (NONE SEEN)
--- NOTE | 2018-10-03 18:14 | RAD REPORT ---
EXAM DESCRIPTION: RAD - Chest Single View - 10/03/2018 5:44 pm CLINICAL HISTORY: CHEST PAIN Chest pain. COMPARISON: Abdomen 1 View (KUB) dated 04/26/2018; Chest Single View dated 04/25/2018; CHEST PA AND LA T 2 VIEW dated 07/05/2011; CHEST SINGLE VIEW dated 09/24/2010 FINDINGS: Portable technique limits examination quality. The lungs are grossly clear. The heart is normal in size. No displaced fractures. IMPRESSION: No acute intrathoracic process suspected.
[2018-10-03] MEDS ORDERED: MORPHINE 4 MG/ML SYR ONE (18:43)
[2018-10-03] MEDS ORDERED: ONDANSETRON 4 MG/2 ML VIAL ONE (18:43)
--- NOTE | 2018-10-03 19:21 | RAD REPORT ---
EXAM DESCRIPTION: CTAbdomen Pelvis W Contrast - 10/03/2018 7:09 pm CLINICAL HISTORY: Abdominal pain. ABD PAIN COMPARISON: CT ABD PELVIS W CONTRAST dated 06/30/2009; CT ABD PELVIS W CONTRAST dated 11/13/2007 TECHNIQUE: Biphasic CT imaging of the abdomen and pelvis was performed with 100 ml non-ionic IV cont rast. All CT scans are performed using dose optimization technique as appropriate and may include automated exposure control or mA/KV adjustment according to patient size. FINDINGS: The lung bases are clear. Advanced fatty liver is present. No focal lesion or biliary dilatation. The spleen, adrenal glands ar e normal. Small renal cysts are present without hydronephrosis. No pancreatic ductal dilatation or ma ss seen. No bowel obstruction, free air, free fluid or abscess. Sigmoid diverticulosis is present without dive rticulitis. The appendix is not identified as a discrete structure, however, no secondary findings of appendicitis are identified. No evidence of significant lymphadenopathy. No suspicious bony findings. Postsurgical changes are present both inguinal regions. IMPRESSION: No acute intra-abdominal or pelvic finding. Advanced fatty liver.
[2018-10-03] MEDS ORDERED: NA CHLORIDE 0.9% 0 ML IV ONE (19:40)
[2018-10-03] MEDS ORDERED: D5W 1,000 ML IV ONE (19:41)
[2018-10-03] MEDS ORDERED: SODIUM BICARB 50 MEQ/50ML VIAL ONE (19:41)
[2018-10-03 20:19] LABS: Barbiturates NEGATIVE (NEGATIVE); Benzodiazepines NEGATIVE (NEGATIVE); Cocaine NEGATIVE (NEGATIVE); METHAMPHETAM NEGATIVE (NEGATIVE); Methadone NEGATIVE (NEGATIVE); Opiates POSITIVE (NEGATIVE); Phencyclidine NEGATIVE (NEGATIVE); THC Cannibis NEGATIVE (NEGATIVE)
[2018-10-03] MEDS ORDERED: LIDOCAINE 2% MPF 5 ML VIAL ONE ×2 (20:33→20:47)
--- NOTE | 2018-10-03 20:56 | ER ---
Nurse's Notes [facility] Name: Madelaine Leonard Age: 58 yrs Sex: Female : 1960 Arrival Date: 10/03/2018 Time: 15:59 Bed 7 Private MD: Diagnosis: Alcohol induced acute pancreatitis;Acidosis Presentation: 10/03 16:00 Presenting complaint: Patient states: coffee ground emesis that began 3 days ago. Pt aa5 reports chest pain and SOB that began today. 16:00 Transition of care: patient was not received from another setting of care. Onset of aa5 symptoms was September 2018. Risk Assessment: Do you want to hurt yourself or someone else? Patient reports no desire to harm self or others. Initial Sepsis Screen: Does the patient meet any 2 criteria? No. Patient's initial sepsis screen is negative. Does the patient have a suspected source of infection? No. Patient's initial sepsis screen is negative. Care prior to arrival: None. 16:00 Method Of Arrival: Wheelchair aa5 16:00 Acuity: DEV 3 aa5 Historical: - Allergies: 16:00 Latex, Natural Rubber; aa5 16:00 Levofloxacin; aa5 16:00 Naproxen Sodium; aa5 16:00 PENICILLINS; aa5 - Home Meds: 16:16 morphine 30 mg oral TbER 1 tab every 12 hours [Active]; morphine 15 mg Oral TbER 1 tab ak1 every 12 hours [Active]; Barnum 10-325 mg oral tab 1 tab every 4-6 hours [Active]; metaxalone 800 mg oral tab [Active]; gabapentin 800 mg oral tab 1 tab 4 times daily [Active]; Albuterol Nebulizer [Active]; - PMHx: 16:00 Chronic pain; aa5 - PSHx: 16:00 Hernia repair; aa5 16:00 Hysterectomy; aa5 - Immunization history:: Adult Immunizations unknown. - Ebola Screening: : No symptoms or risks identified at this time. - Social history:: Smoking status: unknown. Screenin:16 Abuse screen: Denies threats or abuse. Denies injuries from another. Nutritional ak1 screening: No deficits noted. Tuberculosis screening: No symptoms or risk factors identified. Fall Risk None identified. Assessment: 16:17 General: Appears uncomfortable, Behavior is calm, cooperative, anxious. Pain: Complains ak1 of pain in chest. Neuro: No deficits noted. Cardiovascular: Reports chest pain, shortness of breath, vomiting, Rhythm is sinus tachycardia. Respiratory: Reports shortness of breath at rest. GI: Abdomen is round non-distended, Bowel sounds present X 4 quads. Reports nausea, vomiting. : No signs and/or symptoms were reported regarding the genitourinary system. EENT: No signs and/or symptoms were reported regarding the EENT system. Derm: No signs and/or symptoms reported regarding the dermatologic system. Musculoskeletal: No signs and/or symptoms reported regarding the musculoskeletal system. 16:49 Reassessment: pt requesting oxygen, pt 100% saturation on room air. pt placed on 2L NC ak1 for comfort. no resp distress noted. 19:25 Reassessment: Patient appears in no apparent distress at this time. Patient and/or aa1 family updated on plan of care and expected duration. Pain level reassessed. Patient is alert, oriented x 3, equal unlabored respirations, skin warm/dry/pink. Pt back from CT. 19:25 Reassessment: agricultural research technician reports pt's IV in LAC infiltrated during CT. PA notified and aa1 will prepare for central line insertion. 19:55 Reassessment: Patient appears in no apparent distress at this time. Patient and/or aa1 family updated on plan of care and expected duration. Pain level reassessed. Patient is alert, oriented x 3, equal unlabored respirations, skin warm/dry/pink. Awaiting PA for central line insertion. 20:30 Reassessment: Patient appears in no apparent distress at this time. Patient and/or aa1 family updated on plan of care and expected duration. Pain level reassessed. Patient is alert, oriented x 3, equal unlabored respirations, skin warm/dry/pink. PA at bedside for central line insertion with Dr. Torres's assistance. 21:31 Reassessment: Patient appears in no apparent distress at this time. Patient and/or aa1 family updated on plan of care and expected duration. Pain level reassessed. Patient is alert, oriented x 3, equal unlabored respirations, skin warm/dry/pink. Dr. Ramirez at bedside. 22:16 Reassessment: Patient appears in no apparent distress at this time. Patient and/or aa1 family updated on plan of care and expected duration. Pain level reassessed. Patient is alert, oriented x 3, equal unlabored respirations, skin warm/dry/pink. Pt to be ER hold at this time. Vital Signs: 16:00 BP 153 / 87; Pulse 116; Resp 18 S; Temp 98.2(O); Pulse Ox 100% on R/A; Weight 79.83 kg aa5 (R); Height 5 ft. 3 in. (160.02 cm) (R); Pain 7/10; 19:00 BP 121 / 85; Pulse 125; Resp 22; Pulse Ox 99% on 1 lpm NC; aa1 20:00 BP 145 / 88; Pulse 123; Resp 20; Pulse Ox 100% on 1 lpm NC; aa1 21:00 BP 130 / 71; Pulse 121; Resp 20; Pulse Ox 99% on 1 lpm NC; aa1 21:42 BP 90 / 68; Pulse 120; Resp 20; Pulse Ox 100% on 1 lpm NC; aa1 22:16 BP 115 / 83; Pulse 121; Resp 18; Temp 98.1; Pulse Ox 98% on 1 lpm NC; Pain 6/10; aa1 16:00 Body Mass Index 31.18 (79.83 kg, 160.02 cm) aa5 ED Course: 15:59 Patient arrived in ED. aa5 15:59 Arm band placed on. aa5 16:03 Rei Kong PA is PHCP. cp 16:03 Catrachito Leonard MD is Attending Physician. cp 16:07 Triage completed. aa5 16:11 Riri Hernandez, RN is Primary Nurse. ak1 16:16 Patient has correct armband on for positive identification. Placed in gown. Bed in low ak1 position. Call light in reach. Side rails up X2. Adult w/ patient. executive director sheltered workshop on. Pulse ox on. NIBP on. 16:18 EKG done, by instrument technician. reviewed by Rei AMATO. 3 16:32 Initial lab(s) drawn, by me, sent to lab. X-ray(s) taken. Inserted saline lock: 22 ak1 gauge in left antecubital area, using aseptic technique. Blood collected. 17:46 XRAY Chest (1 view) In Process Unspecified. EDMS 19:00 Oxygen administration via nasal cannula \T\ 1L/min O2 via pt RA O2 sat >95% however she aa1 requests to be placed on O2. 19:10 CT Abd/Pelvis - W/Contrast: no oral contrast In Process Unspecified. EDMS 19:55 Paulson cath inserted, using sterile technique, 16 Fr., by me, balloon inflated, to aa1 gravity drainage, urine specimen collected. returned clear yellow urine. Patient tolerated well. 20:40 Assisted provider with central line placement. Set up central line tray. Triple lumen aa1 line placed in right femoral. Line placed by Rei AMATO Placement verified by blood return, Dressed with Tegaderm, Patient tolerated well. Patient \T\ family education about procedure, CLABSI prevention and S/S of infection? Yes. Was patient positioned to in a way to prevent air embolism? Yes. Was procedure site sterilized? Yes, with chlorhexidine. Was the site allowed to dry? Yes. Was local anesthetic and/or sedation utilized? Yes. During the procedure, did the Practitioner(s) maintain a sterile field? Yes. Were unused ports clamped during insertion? Yes. Was a 2nd qualified MD obtained after 3 unsuccessful insertion attempts? Yes. Was blood aspirated from each lumen? Yes. After the procedure, did the Practitioner(s) clean the site and apply a sterile dressing? Yes. 20:55 Leroy Jara MD is Hospitalizing Provider. cp 21:00 One-on-one care X 120 minutes. aa1 21:12 Warm blanket given. Pillow given. Head of bed lowered. aa1 21:30 One-on-one care X 30 minutes. aa1 22:16 Patient admitted, IV remains in place. aa1 10/04 09:52 \T\0850 transfer was initiated to [facility] with Liliana Albarado by Dr. Mcnair/ \T\0949 eb administrative approval given by Liliana Albarado/ / Peter has accepted the patient in transfer/ pt going to [address] [place] [address] 19/ report to be called to [phone]. Administered Medications: 10/03 16:38 Drug: NS 0.9% 1000 ml Route: IV; Rate: 1 bolus; Site: left antecubital; ak1 21:30 Follow up: IV Status: Completed infusion aa1 16:38 Drug: morphine 4 mg Route: IVP; Site: left antecubital; ak1 17:35 Follow up: Response: No adverse reaction ak1 16:39 Drug: ProTONIX 40 mg Route: IVP; Site: left antecubital; ak1 19:04 Follow up: Response: No adverse reaction ak1 16:39 Drug: Zofran 4 mg Route: IVP; Site: left antecubital; ak1 17:35 Follow up: Response: no vomiting while in ER25 ak1 18:34 Drug: Zofran 4 mg Route: IVP; Site: left antecubital; ak1 19:03 Follow up: Response: No adverse reaction ak1 18:34 Drug: morphine 4 mg Route: IVP; Site: left antecubital; ak1 19:03 Follow up: Response: No adverse reaction ak1 19:55 CANCELLED (Other Intervention Used): D5-1/2 NS 1000 ml IV at 150 ml/hr continuous aa1 20:10 Drug: Sodium Bicarbonate 150 per protocol {Note: Sodium bicarb drip of 150mEQ in 1 aa1 liter D5W administered at 150 ml/hr.} Route: IVP; Rate: 150 ml/hr; Site: right antecubital; 22:18 Follow up: Response: No adverse reaction aa1 21:38 Not Given (Physician Discretion): NS 0.9% 1000 ml IV at 125 ml/hr continuous aa1 21:38 Drug: NS 0.9% 1000 ml Route: IV; Rate: 1 bolus; Site: right femoral; aa1 22:18 Follow up: IV Status: Infusion continued upon admission aa1 21:39 Not Given (Physician Discretion): Insulin Drip - (Insulin Regular Human 100 units, NS aa1 0.9% 100 ml) IV at 4 units/hr continuous 22:31 Drug: Xopenex 1.25 mg Route: Inhalation; aa1 10/04 08:41 CANCELLED (see [employer]): Levophed (4 mg/250 mL D5W 4 mcg/min IV at calculated rate Per aa5 protocol; (final concentration is 16 microgram/mL) Outcome: 10/03 20:55 Decision to Hospitalize by Provider. cp 22:17 Admitted to ER Hold. Please see [facility] for further documentation. aa1 22:17 Condition: stable 22:17 Discharge instructions given to patient, Instructed on the need for admit, Demonstrated understanding of instructions. 10/04 11:52 Patient left the ED. ss Signatures: Dispatcher [employer] EDMS Mary Love RN RN aa1 Kacey Sanchez RN RN aa5 Jennifer Garcia RN RN ss Riri Hernandez RN RN ak1 Rei Kong PA PA cp Botello, Elizabeth eb Montes, Shakira 3 Corrections: (The following items were deleted from the chart) 10/03 21:18 20:10 Sodium Bicarbonate 150 mEq IVP in right antecubital aa1 aa1
--- NOTE | 2018-10-03 20:56 | EDPHYS ---
Physician Documentation [facility] Name: Madelaine Leonard Age: 58 yrs Sex: Female : 1960 Arrival Date: 10/03/2018 Time: 15:59 Bed 7 Private MD: ED Physician Catrachito Leonard HPI: 10/03 16:29 This 58 yrs old Female presents to ER via Wheelchair with complaints of cp nausea, vomiting. 16:29 The patient presents to the emergency department with nausea, that is moderate, cp vomiting, that is intermittent, described as coffee ground in nature. Onset: The symptoms/episode began/occurred 3 day(s) ago. Possible causes: unknown. Associated signs and symptoms: Pertinent positives: abdominal pain, constipation, chest pain, Pertinent negatives: diarrhea, fever, flatulence. Severity of symptoms: in the emergency department the symptoms are unchanged despite home interventions. Historical: - Allergies: 16:00 Latex, Natural Rubber; aa5 16:00 Levofloxacin; aa5 16:00 Naproxen Sodium; aa5 16:00 PENICILLINS; aa5 - Home Meds: 16:16 morphine 30 mg oral TbER 1 tab every 12 hours [Active]; morphine 15 mg Oral TbER 1 tab ak1 every 12 hours [Active]; Wheelwright 10-325 mg oral tab 1 tab every 4-6 hours [Active]; metaxalone 800 mg oral tab [Active]; gabapentin 800 mg oral tab 1 tab 4 times daily [Active]; Albuterol Nebulizer [Active]; - PMHx: 16:00 Chronic pain; aa5 - PSHx: 16:00 Hernia repair; aa5 16:00 Hysterectomy; aa5 - Immunization history:: Adult Immunizations unknown. - Ebola Screening: : No symptoms or risks identified at this time. - Social history:: Smoking status: unknown. ROS: 16:35 Constitutional: Positive for poor PO intake, Negative for body aches, chills, fever. cp 16:35 Eyes: Negative for injury, pain, redness, and discharge. cp 16:35 ENT: Negative for drainage from ear(s), ear pain, sore throat, difficulty swallowing, difficulty handling secretions. 16:35 Neck: Negative for pain with movement, pain at rest, stiffness. 16:35 Cardiovascular: Positive for chest pain, Negative for edema, palpitations. 16:35 Abdomen/GI: Positive for abdominal pain, nausea and vomiting, constipation, anorexia, Negative for diarrhea, black/tarry stool, rectal bleeding. 16:35 Back: Negative for radiated pain. 16:35 : Negative for urinary symptoms. 16:35 Skin: Negative for cellulitis, rash. 16:35 Neuro: Negative for altered mental status, dizziness, headache, syncope, weakness. 16:35 Respiratory: Positive for shortness of breath, Negative for cough, wheezing. cp 16:35 All other systems are negative. cp Exam: 16:20 ECG was reviewed by the Attending Physician. cp 16:40 Constitutional: The patient appears in no acute distress, alert, awake, cp non-diaphoretic, non-toxic, well developed, well nourished, uncomfortable. 16:40 Head/Face: Normocephalic, atraumatic. cp 16:40 Eyes: Periorbital structures: appear normal, Pupils: equal, round, and reactive to light and accomodation, Extraocular movements: intact throughout, Conjunctiva: normal, no exudate, no injection, Sclera: no appreciated abnormality, Lids and lashes: appear normal, bilaterally. 16:40 ENT: External ear(s): are unremarkable, Ear canal(s): are normal, clear, TM's: bulging, is not appreciated, bilaterally, dullness, bilaterally, erythema, is not appreciated, bilaterally, Nose: is normal, Mouth: Lips: dry, Oral mucosa: dry, Posterior pharynx: Airway: no evidence of obstruction, patent, Tonsils: are normal in appearance, swelling, is not appreciated, erythema, is not appreciated, exudate, is not appreciated. 16:40 Neck: ROM/movement: is normal, is supple, without pain, no range of motions limitations, no meningismus, no nuchal rigidity. 16:40 Chest/axilla: Inspection: normal, Palpation: is normal, no crepitus, no tenderness. 16:40 Cardiovascular: Rate: tachycardic, Rhythm: regular, Pulses: Pulses are 2+ in right radial artery and left radial artery. Heart sounds: murmur, not appreciated, Edema: is not appreciated, JVD: is not appreciated. 16:40 Respiratory: the patient does not display signs of respiratory distress, Respirations: normal, no use of accessory muscles, no retractions, no splinting, no tachypnea, labored breathing, is not present, Breath sounds: are clear throughout, no decreased breath sounds, no stridor, no wheezing. 16:40 Abdomen/GI: Inspection: distension, that is mild, Bowel sounds: active, all quadrants, Palpation: soft, in all quadrants, moderate abdominal tenderness, in the right upper quadrant and left upper quadrant, rebound tenderness, is not appreciated, voluntary guarding, is elicited in the right upper quadrant and left upper quadrant. 16:40 Back: pain, is absent, ROM is normal. 16:40 Skin: cellulitis, is not appreciated, no rash present. 16:40 Neuro: Orientation: to person, place \T\ time. Mentation: is normal, Cerebellar function: is grossly normal, Motor: moves all fours, strength is normal, Sensation: is normal. Vital Signs: 16:00 BP 153 / 87; Pulse 116; Resp 18 S; Temp 98.2(O); Pulse Ox 100% on R/A; Weight 79.83 kg aa5 (R); Height 5 ft. 3 in. (160.02 cm) (R); Pain 7/10; 19:00 BP 121 / 85; Pulse 125; Resp 22; Pulse Ox 99% on 1 lpm NC; aa1 20:00 BP 145 / 88; Pulse 123; Resp 20; Pulse Ox 100% on 1 lpm NC; aa1 21:00 BP 130 / 71; Pulse 121; Resp 20; Pulse Ox 99% on 1 lpm NC; aa1 21:42 BP 90 / 68; Pulse 120; Resp 20; Pulse Ox 100% on 1 lpm NC; aa1 22:16 BP 115 / 83; Pulse 121; Resp 18; Temp 98.1; Pulse Ox 98% on 1 lpm NC; Pain 6/10; aa1 16:00 Body Mass Index 31.18 (79.83 kg, 160.02 cm) aa5 MDM: 16:10 Patient medically screened. cp 18:00 Differential diagnosis: gastritis, pancreatitis, appendicitis, diverticulitis, viral cp gastroenteritis, gastroenteritis. 19:05 Data reviewed: vital signs, nurses notes, lab test result(s), EKG, radiologic studies, cp plain films, I have discussed the patient's presentation/case with the attending Emergency Department Physician; and as a result, I will admit patient. 10/03 16:12 Order name: Basic Metabolic Panel; Complete Time: 17:23 cp 10/03 17:24 Interpretation: Normal except: NA 129; CL 97; CO2 6; GLUC 150; BUN 4; GFR 62. cp 10/03 16:12 Order name: CBC with Diff; Complete Time: 17:14 cp 10/03 17:15 Interpretation: Normal except: HCT 47.0; MCH 31.6; MCHC 31.9; MCV 99.1; RDW 20.9; IY% cp 82.5; LYM% 7.3. 10/03 16:12 Order name: LFT's; Complete Time: 17:23 cp 10/03 19:03 Interpretation: Normal except: AST 143; ALT 102; BILID 0.3; TP 9.7; GLOB 4.9; A/G 1.0. cp 10/03 16:12 Order name: Magnesium; Complete Time: 17:23 cp 10/03 16:12 Order name: NT PRO-BNP; Complete Time: 17:23 cp 10/03 16:12 Order name: PT-INR; Complete Time: 17:14 cp 10/03 16:12 Order name: Troponin (emerg Dept Use Only); Complete Time: 17:23 cp 10/03 17:24 Interpretation: Abnormal: TROPED 0.48. cp 10/03 16:12 Order name: Lipase; Complete Time: 17:23 cp 10/03 17:24 Interpretation: Abnormal: LIP 4713. cp 10/03 16:12 Order name: Urine Microscopic Only; Complete Time: 19:02 cp 10/03 19:02 Interpretation: Normal except: URBC 5-10; UBACT 20-50; SQEPI 5-10. cp 10/03 16:49 Order name: CBC Smear Scan; Complete Time: 17:14 EDMS 10/03 17:33 Order name: Lactate; Complete Time: 19:02 cp 10/03 17:33 Order name: Osmolality, Serum; Complete Time: 19:02 cp 10/03 17:33 Order name: ABG; Complete Time: 19:02 cp 10/03 19:02 Interpretation: Normal except: ABGPH 7.11; ABGPCO2 14.3; ABGPO2 112.0; ABGHCO3 4.3; cp ZLIT9UR 93.7; ABGCOHB 2.1. 10/03 17:37 Order name: Tylenol Level; Complete Time: 19:02 cp 10/03 17:37 Order name: Salicylate; Complete Time: 19:02 cp 10/03 17:37 Order name: UDS; Complete Time: 20:55 cp 10/03 17:37 Order name: ETOH Level; Complete Time: 19:02 cp 10/03 17:48 Order name: Urine Dipstick--Ancillary (enter results); Complete Time: 19:02 eb 10/03 18:03 Order name: Urine Culture EDWA 10/04 00:39 Order name: Lactate; Complete Time: 00:49 EDMS 10/04 00:49 Order name: Troponin I; Complete Time: 01:12 EDWA 10/04 01:12 Interpretation: Reviewed. 10/04 01:33 Order name: Hemoglobin A1c; Complete Time: 08:02 EDMS 10/04 05:47 Order name: CBC with Automated Diff; Complete Time: 08:02 EDMS 10/04 07:03 Order name: Comprehensive Metabolic Panel; Complete Time: 08:02 EDMS 10/04 07:49 Order name: Troponin I; Complete Time: 08:02 EDMS 10/04 08:06 Order name: ABG kdr 10/04 08:06 Order name: CBC with Diff kdr 10/04 08:06 Order name: Chem 7 kdr 10/04 08:24 Order name: Type And Screen kdr 10/03 16:12 Order name: XRAY Chest (1 view); Complete Time: 19:02 cp 10/03 16:12 Order name: EKG; Complete Time: 16:14 cp 10/03 16:12 Order name: Cardiac monitoring; Complete Time: 16:18 cp 10/03 16:12 Order name: EKG - Nurse/Tech; Complete Time: 16:18 cp 10/03 16:12 Order name: IV Saline Lock; Complete Time: 16:32 cp 10/03 16:12 Order name: Labs collected and sent; Complete Time: 16:32 cp 10/03 16:12 Order name: O2 Per Protocol; Complete Time: 16:18 cp 10/03 16:12 Order name: O2 Sat Monitoring; Complete Time: 16:18 cp 10/03 16:12 Order name: Urine Dipstick-Ancillary (obtain specimen); Complete Time: 18:34 cp 10/03 17:26 Order name: CT Abd/Pelvis - W/Contrast: no oral contrast; Complete Time: 19:35 cp 10/03 19:55 Order name: Khurram; Complete Time: 19:55 aa1 10/04 08:06 Order name: Echo without doppler (2D) kdr 10/04 08:31 Order name: CBC with Automated Diff EDMS 10/04 08:43 Order name: Basic Metabolic Panel EDMS 10/04 08:45 Order name: ABG Arterial Blood Gas EDMS 10/04 09:15 Order name: Manual Differential EDMS 10/04 09:41 Order name: Type and Screen EDMS 10/04 09:41 Order name: ABO/RH no charge EDMS EC:20 Rate is 113 beats/min. Rhythm is regular. AL interval is normal. QRS interval is cp normal. QT interval is normal. Interpreted by me. Reviewed by me. Administered Medications: 16:38 Drug: NS 0.9% 1000 ml Route: IV; Rate: 1 bolus; Site: left antecubital; ak1 21:30 Follow up: IV Status: Completed infusion aa1 16:38 Drug: morphine 4 mg Route: IVP; Site: left antecubital; ak1 17:35 Follow up: Response: No adverse reaction ak1 16:39 Drug: ProTONIX 40 mg Route: IVP; Site: left antecubital; ak1 19:04 Follow up: Response: No adverse reaction ak1 16:39 Drug: Zofran 4 mg Route: IVP; Site: left antecubital; ak1 17:35 Follow up: Response: no vomiting while in ER25 ak1 18:34 Drug: Zofran 4 mg Route: IVP; Site: left antecubital; ak1 19:03 Follow up: Response: No adverse reaction ak1 18:34 Drug: morphine 4 mg Route: IVP; Site: left antecubital; ak1 19:03 Follow up: Response: No adverse reaction ak1 19:55 CANCELLED (Other Intervention Used): D5-1/2 NS 1000 ml IV at 150 ml/hr continuous aa1 20:10 Drug: Sodium Bicarbonate 150 per protocol {Note: Sodium bicarb drip of 150mEQ in 1 aa1 liter D5W administered at 150 ml/hr.} Route: IVP; Rate: 150 ml/hr; Site: right antecubital; 22:18 Follow up: Response: No adverse reaction aa1 21:38 Not Given (Physician Discretion): NS 0.9% 1000 ml IV at 125 ml/hr continuous aa1 21:38 Drug: NS 0.9% 1000 ml Route: IV; Rate: 1 bolus; Site: right femoral; aa1 22:18 Follow up: IV Status: Infusion continued upon admission aa1 21:39 Not Given (Physician Discretion): Insulin Drip - (Insulin Regular Human 100 units, NS aa1 0.9% 100 ml) IV at 4 units/hr continuous 22:31 Drug: Xopenex 1.25 mg Route: Inhalation; aa1 10/04 08:41 CANCELLED (see [employer]): Levophed (4 mg/250 mL D5W 4 mcg/min IV at calculated rate Per aa5 protocol; (final concentration is 16 microgram/mL) Disposition: 10/03/18 20:55 Hospitalization ordered by Leroy Jara for Inpatient Admission. Preliminary diagnosis are Alcohol induced acute pancreatitis, Acidosis. - Bed requested for [facility] ER HOLD. - Status is Inpatient Admission. ss - Condition is Stable. - Problem is new. - Symptoms have improved. UTI on Admission? No Signatures: Dispatcher [employer] EDMS Sun Bailey RN RN kl Kern, Alissa, RN RN aa1 Ferdinand Valladares MD MD [facility] Kacey Sanchez RN RN aa5 Jennifer Garcia RN RN ss Riri Hernandez RN RN ak1 Rei Kong PA PA cp Nai Sanchez RN RN df Corrections: (The following items were deleted from the chart) 10/03 19:55 19:10 D5-1/2 NS 1000 ml IV at 150 ml/hr continuous ordered. cp aa1 20:56 20:55 Hospitalization Ordered by Leroy Jara MD for Inpatient Admission. Preliminary cp diagnosis is Alcohol induced acute pancreatitis. Bed requested for Intensive Care Unit. Status is Inpatient Admission. Condition is Stable. Problem is new. Symptoms have improved. UTI on Admission? No. cp 21:59 20:56 10/03/2018 20:55 Hospitalization Ordered by Leroy Jara MD for Inpatient kl Admission. Preliminary diagnosis is Alcohol induced acute pancreatitis; Acidosis. Bed requested for Intensive Care Unit. Status is Inpatient Admission. Condition is Stable. Problem is new. Symptoms have improved. UTI on Admission? No. cp 10/04 02:33 10/03 16:35 Respiratory: Negative for cough, shortness of breath, wheezing, cp cp 10/04 02:33 10/03 16:35 All other systems are negative, cp cp 10/04 08:41 08:24 Levophed (4 mg/250 mL D5W 4 mcg/min IV at calculated rate Per protocol; (final aa5 concentration is 16 microgram/mL) ordered. kdr 09:11 10/03 21:59 10/03/2018 20:55 Hospitalization Ordered by Leroy Jara MD for Inpatient df Admission. Preliminary diagnosis is Alcohol induced acute pancreatitis; Acidosis. Bed requested for [facility] ER HOLD. Status is Inpatient Admission. Condition is Stable. Problem is new. Symptoms have improved. UTI on Admission? No. kl 10/04 10:17 09:11 10/03/2018 20:55 Hospitalization Ordered by Leroy Jara MD for Inpatient ss Admission. Preliminary diagnosis is Alcohol induced acute pancreatitis; Acidosis. Bed requested for Intensive Care Unit. Status is Inpatient Admission. Condition is Stable. Problem is new. Symptoms have improved. UTI on Admission? No. df 11:52 10:17 10/03/2018 20:55 Hospitalization Ordered by Leroy Jara MD for Inpatient ss Admission. Preliminary diagnosis is Alcohol induced acute pancreatitis; Acidosis. Bed requested for [facility] ER HOLD. Status is Inpatient Admission. Condition is Stable. Problem is new. Symptoms have improved. UTI on Admission? No. ss
[2018-10-03] MEDS ORDERED: NA CHLORIDE 0.9% 1,000 ML ONE (21:35)
--- NOTE | 2018-10-03 21:36 | EKG ---
Test Date: 2018-10-03 Test Time: 16:14:08 Shuttle Threader: LINH MEASUREMENT RESULTS: Intervals: Rate: 113 ME: 134 QRSD: 90 QT: 376 QTc: 515 Pierz: P: 81 ME: 134 QRS: 57 T: 52 INTERPRETIVE STATEMENTS: Sinus tachycardia Otherwise normal ECG Compared to ECG 04/25/2018 21:34:20 Myocardial infarct finding no longer present Electronically Signed On 10-03-18 21:35:19 SEWER DIGGER by Sukhjinder Aguilar
[2018-10-03] MEDS ORDERED: HYDROMORPHONE HCL 1 MG/ML INJ IV PRN (21:43)
--- NOTE | 2018-10-03 21:55 | P.HP ---
Certification for Inpatient Patient admitted to: Inpatient With expected LOS: >2 Midnights Practitioner: I am a practitioner with admitting privileges, knowledge of patient current condition, hospital course, and medical plan of care. Services: Services provided to patient in accordance with Admission requirements found in Title 42 Section 412.3 of the Code of Federal Regulations Patient History Date of Service: 10/03/18 Reason for admission: metabolic acidosis History of Present Illness: Ms Leonard is a 58 years old woman with history of COPD still smoking, chronic pain syndrome, alcohol abuse, she drinks a 1/4 bottle of vodka daily, who start with abdominal pain, nausea and vomiting about 3 days ago. She states that has had coffee-ground emesis, no black or bloody stools. She was also complaining of chest pain, pressure like, substernal, 4/10 of intensity, associated with more SOB. Lab work significantly abnormal, WBC count normal, normal renal fuction, elevated trop I. lactate normal, hyponatremia, CO2 6, Chloride 97. Glycemia 150. ABG PH 7.11, Lab work consistent with anion gap metabolic acidosis. Toxicology screen shows negative salicylates. She denied drinking ethylen glycol or methylen glycol products. She has no history of diabetes mellitus, but has ketones positive in urine. CT abd/pelvis shows no acute abnormalities. EKG shows sinus tachycardia without St-T abnormalities. Allergies Latex, Natural Rubber Allergy (Verified 09/22/14 15:47) Hives/Rash levofloxacin [From Levaquin] Allergy (Verified 09/22/14 15:37) Itching Penicillins Allergy (Verified 09/22/14 15:37) Hives naproxen sodium [From Aleve] Adverse Reaction (Verified 09/22/14 15:37) Nausea/Vomiting Home medications list reviewed: Yes Home Medications: Gabapentin [Neurontin*] 800 mg PO QID 09/22/14 Hydrocodone 10/APAP 325 [[place] 10/325] 1 tab PO TID PRN 09/22/14 Albuterol Sulfate [Proair Hfa] 2 puff IH Q6H PRN 04/26/18 Ibuprofen 800 mg PO Q12H PRN 04/26/18 Metaxalone 800 mg PO Q6H 18 Morphine Sulfate [Morphabond ER] 60 mg PO Q12H 04/26/18 Ondansetron HCl [Zofran] 8 mg PO DAILY 04/26/18 - Past Medical/Surgical History Diabetic: No -: chronic pain -: COPD -: R upper lobectomy -: multiple hernia surgeries -: multiple abdominal surgeries - Family History Father -: Heart disease, Hypertension Notes: Mother -: Heart disease, Lung disease, Cancer Notes: Brother -: Heart disease, Hypertension, Lung disease Notes: - Social History Smoking Status: Current every day smoker Counseled patient to stop smoking for: less than 10 minutes Smoking therapy provided: Yes Patient receptive to therapy: Yes Alcohol use: Yes CD- Drugs: No Caffeine use: No Place of Residence: Home Review of Systems 10-point ROS is otherwise unremarkable Physical Examination - Physical Exam General: Alert, In no apparent distress HEENT: Atraumatic, PERRLA, Mucous membr. moist/pink, EOMI, Sclerae nonicteric Neck: Supple, 2+ carotid pulse no bruit, No LAD, Without JVD or thyroid abnormality Respiratory: Clear to auscultation bilaterally, Diminished Cardiovascular: Regular rate/rhythm, Normal S1 S2 Gastrointestinal: Normal bowel sounds, No tenderness Musculoskeletal: No tenderness Integumentary: No rashes Neurological: Normal speech, Normal strength at 5/5 x4 extr, Normal tone, Normal affect Lymphatics: No axilla or inguinal lymphadenopathy - Studies Laboratory Data (last 24 hrs) 10/03/18 16:27: PT 11.8, INR 1.00 10/03/18 16:27: WBC 9.5, Hgb 15.0, Hct 47.0 H, Plt Count 317 10/03/18 16:27: Sodium 129 L, Potassium 4.0, BUN 4 L, Creatinine 0.93, Glucose 150 H, Magnesium 2.4 D, Total Bilirubin 0.9, AST 143 H, ALT 102 H, Alkaline Phosphatase 106, Lipase 4713 H Assessment and Plan - Problems (Diagnosis) (1) High anion gap metabolic acidosis Current Visit: Yes Status: Acute (2) Tobacco abuse Current Visit: Yes Status: Acute (3) Alcohol abuse Current Visit: Yes Status: Acute (4) Chronic pain syndrome Current Visit: Yes Status: Acute (5) Hyponatremia Current Visit: Yes Status: Acute (6) Chest pain Current Visit: Yes Status: Acute Qualifiers: Chest pain type: precordial pain Qualified Code(s): R07.2 - Precordial pain (7) Coffee ground emesis Current Visit: Yes Status: Acute - Plan Admit the patient in ICU due to anion gap metabolic acidosis with no clear etiology. She has received sodium bicarbonate in ER, will continue with IV fluids, consult GI due to coffe-ground emesis. Also consult cardiology for chest pain with elevated trop I. Consult nephrology due to hyponatremia and metabolic abnormalities. - Advance Directives Does patient have a Living Will: No Does patient have a Durable POA for Healthcare: No - Code Status/Comfort Care Code Status Assessed: Yes Code Status: Full Code
[2018-10-03] MEDS ORDERED: LEVALBUTEROL 1.25 MG/3 ML NEB ONE (22:38)
[2018-10-03] MEDS ORDERED: ONDANSETRON 4 MG/2 ML VIAL IV PRN (22:39)
[2018-10-03] MEDS ORDERED: ALBUTEROL 2.5 MG/3 ML NEB SOL NEB PRN (22:39)
[2018-10-03] MEDS ORDERED: IPRATROPIUM BROM 0.5MG/2.5ML NEB PRN (22:39)
[2018-10-03] MEDS ORDERED: NA CHLORIDE 0.9% 1,000 ML IV SCH (22:39)
[2018-10-03] MEDS ORDERED: D5 0.45 NS 1,000 ML IV SCH (22:39)
[2018-10-03] MEDS: D5W 1,000 ML with NA BICARB 8.4% 150 MEQ IV SCH ×2 (22:58)
[2018-10-04] MEDS ORDERED: NA CHLORIDE 0.9% 1,000 ML IV ONE ×2 (02:07→06:27)
[2018-10-04] MEDS ORDERED: NA CHLORIDE 0.9% 1,000 ML ONE ×2 (02:11→06:26)
[2018-10-04] MEDS ORDERED: D5W 1,000 ML IV ONE (04:49)
[2018-10-04] MEDS ORDERED: SODIUM BICARB 50 MEQ/50ML VIAL ONE ×2 (05:09→05:58)
[2018-10-04 05:35] VITALS: O2SAT 99
[2018-10-04 05:39] LABS: Absolute Lymphocytes (CBC) 0.8 K/uL (0.7-4.9); Absolute Monocytes 0.7 K/uL (0.1-1.3); Absolute Neutrophil 5.5 K/uL (1.8-8.0); Basophils % 0.1 % (0-1.3); Hematocrit 33.1 % (36.0-45.0); Lymphocytes % 11.9 % (15.3-44.8); MPV 7.6 fL (7.6-11.3); Monocytes % 9.8 % (3.3-12.3); RBC Red Blood Cell Count 3.41 M/uL (3.86-4.86)
[2018-10-04] MEDS: D5W 1,000 ML with NA BICARB 8.4% 150 MEQ IV SCH ×2 (06:17)
[2018-10-04 06:34] VITALS: BMI 30.8
[2018-10-04 06:47] LABS: Bilirubin Total 0.9 mg/dL (0.2-1.0); Potassium 3.1 mmol/L (3.5-5.1); Protein, Total 5.9 g/dL (6.4-8.2)
[2018-10-04] MEDS ORDERED: NA CHLORIDE 0.9% 250 ML ONE ×2 (08:20→10:51)
[2018-10-04] MEDS ORDERED: NOREPINEPHRINE 4 MG in D5W 250 ML IV PRN (08:25)
[2018-10-04 08:27] LABS: Absolute Lymphocytes (CBC) 0.5 K/uL (0.7-4.9); Absolute Monocytes 0.6 K/uL (0.1-1.3); Absolute Neutrophil 4.7 K/uL (1.8-8.0); Basophils % 0.3 % (0-1.3); Eosinophils % 0.2 % (0-4.4); Hematocrit 31.6 % (36.0-45.0); Lymphocytes % 9.2 % (15.3-44.8); MPV 6.9 fL (7.6-11.3); Monocytes % 10.8 % (3.3-12.3); RBC Red Blood Cell Count 3.27 M/uL (3.86-4.86)
[2018-10-04] MEDS ORDERED: NOREPINEPHRINE 4mg/D5W 250mL 4 MG/250 ML BAG IV ONE (08:31)
[2018-10-04 08:32] LABS: Arterial Blood Carboxyhemoglob 2.2 % (0-1.5); Blood Gas Oxyhemoglobin 94.6 % (94-97); Blood O2 Saturation 97.8 % (92-98.5)
--- NOTE | 2018-10-04 08:37 | ECHO ---
HEIGHT: 5 ft 3 in WEIGHT: 174 lb 2.643 oz DATE OF STUDY: 10/04/[address]: Ferdinand Valladares MD 2-DIMENSIONAL: YES M.MODE: YES DOPPLER: NO COLOR FLOW: NO TDS: NO PORTABLE: YES DEFINITY: NO BUBBLE STUDY: NO DIAGNOSIS: CHEST PAIN CARDIAC HISTORY: CATHERIZATION: NO SURGERY: NO PROSTHETIC VALVE: NO PACEMAKER: NO MEASUREMENTS (cm) DIASTOLIC (NORMALS) SYSTOLIC (NORMALS) IVSd 1.0 (0.6-1.2) LA Diam 4.2 (1.9-4.0) LVEF 30-35% LVIDd 5.1 (3.5-5.7) LVIDs 3.3 (2.0-3.5) %FS 34% LVPWd 1.1 (0.6-1.2) Ao Diam 2.4 (2.0-3.7) 2 DIMENSIONAL ASSESSMENT: RIGHT ATRIUM: NORMAL LEFT ATRIUM: DILATED RIGHT VENTRICLE: NORMAL LEFT VENTRICLE: NORMAL TRICUSPID VALVE: NORMAL MITRAL VALVE: NORMAL PULMONIC VALVE: NORMAL AORTIC VALVE: SCLEROSIS PERICARDIAL EFFUSION: NONE AORTIC ROOT: NORMLA LEFT VENTRICULAR WALL MOTION: APICAL ANTERIOR SEPTAL AKINESIS. DOPPLER/COLOR FLOW: NOT REQUESTED. COMMENTS: DEPRESSED LEFT VENTRICULAR EJECTION FRACTION WITH WALL MOTION ABNORMALITY. AORTIC SCLEROSIS, DOUBTFUL FOR AORTIC STENOSIS. DOPPLER WAS NOT DONE. TECHNOLOGIST: Romain MARKS
[2018-10-04] MEDS ORDERED: NICOTINE 21 MG/PAT TD SCH (09:00)
[2018-10-04] MEDS ORDERED: ENOXAPARIN 40 MG/0.4 ML SQ SCH ×2 (09:00)
[2018-10-04] MEDS ORDERED: ASPIRIN 81 MG CHEWABLE TABLET PO SCH (09:00)
[2018-10-04 09:15] LABS: Anisocytosis 1+; Basophilic Stippling 1+; Blood Morphology Comment NOTED (NOT SEEN); Platelet Estimate ADEQ
[2018-10-04 09:30] VITALS: TEMP 99.5
[2018-10-04 09:49] VITALS: BP 95/47
--- NOTE | 2018-10-04 13:23 | CON ---
History Of Present Illness: A 58-year-old woman. Ms. Leonard came to the hospital because of chest p ain. The chest pain started more than 25 hours before I saw her 18 hours before arriving to the [facility] room. The patient has not had myocardial infarction or stroke before. She admits to being a v mehrdad heavy alcohol and tobacco user. Has underlying COPD. She sees a pain specialist and takes hydro codone, gabapentin as an outpatient. She also takes albuterol, metaxalone, Zofran, and extended rele ase morphine. There are no blood pressure medicines. No anticoagulants. She reports a drug allergy to latex, other natural rubbers, levofloxacin, penicillin, and naproxen. Since being in the [facility], the patient's hemoglobin has fallen from 15 to 10, and her blood pressure is starting to fall. Arlet chambers had a pH of 7.11 with a pCO2 of 14, indicating a severe metabolic acidosis, that has no doubt impro pamela some with the bicarbonate drip. Her most recent carbon dioxide level was 20. A blood gas has no t been repeated. Her calcium level is low. 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 Physical Examination: General: A 5 feet 3 inches, 174 pounds, somnolent, difficult to awaken her. It has been 8 hours or longer since she has had any narcotics. Vital signs: Her blood pressure is 79/50, heart rate 103. Lungs: Clear. Heart exam: Gives a significant murmur. It is a systolic murmur. It sounds like a combination of a ortic sclerosis, mitral and tricuspid regurgitation. It is not a high-pitched or musical murmur. Abdomen: Mildly tender. Extremities: Mild edema. Diagnostic Data: Troponins are 1.63, 1.91. An echocardiogram shows no effusion; aortic valve sclero sis. An echo was not done. There is good aortic valve excursion. I doubt if she has significant ao rtic stenosis. Her ejection fraction is in the 30s, and there is a large anterior apical and septal OK. There is no thrombus visible. Impression: The patient has a very severe combination of problems, severe metabolic acidosis of unkn own cause. I would be worried that she has a lactic acidosis. The lactic acid level was very low, however. So, I am not sure what the acid is that is making her this way. Salicylate level actually has been done. Her opiate screen naturally is positive. Alcohol level is low. Acetaminophen level is low. Her laboratory exam also indicates liver disease with elevated SGOT, SGPT, it could be from the myocardial infarction. All in all, she is an extremely complicated patient, combination of sever e metabolic acidosis of unknown cause, not salicylate, not lactic acid. Liver disease, risk of bleed ing and acute myocardial infarction. I have recommended that she be transferred to a tertiary care [facility] where these things can be addressed better. She will first need to have a transfusion, hopefully get stabilized. She is definitely not a person that could be safely taken to the dental laboratory manager , getting her a stent with her losing as much hemoglobin, this acidotic is extremely risky. ARLET/RAINA Voice ID: [id number] Report ID: [id number]
[2018-10-04] MEDS ORDERED: ATORVASTATIN 80 MG TAB PO SCH (21:00)
--- NOTE | 2018-10-05 01:24 | DS ---
Date of Discharge: 10/04/2018 Consultants: 1. Dr. Aguilar with Cardiology. 2. Dr. Malcolm with GI. 3. Dr. Cruz with Nephrology. Admitting Diagnoses: 1. High anion gap metabolic acidosis. 2. Tobacco abuse. 3. Alcohol abuse. 4. Chronic pain syndrome. 5. Hyponatremia. 6. Chest pain. 7. Coffee-grounds emesis. Discharge Diagnoses: 1. Myocardial infarction, apical wall. 2. Acute blood loss anemia. 3. Coffee-grounds emesis. 4. High anion gap metabolic acidosis. 5. Chronic pain syndrome. 6. Hyponatremia. 7. Alcohol abuse. 8. Hypokalemia. 9. Obesity, body mass index greater than 38. Hospital Course: The patient is a 58-year-old female who has a history of COPD , chronic pain syndrome, alcohol abuse, drinks a quarter bottle of vodka daily, came in with abdominal pain, nausea, and vomiting that started several days ago. She also had some coffee-ground emesis. In the ER, she had some chest pain. Her troponin was elevated. She had a high anion gap metabolic acidosis. Her pH was 7.11. Tox screen was negative for salicylates. No ethylene glycol products were mentioned in history. Ketones were positive. Her alcohol level was less than 3. The patient was started on bicarb drip. She was unable to be given Lovenox or aspirin due to her significant acute drop in H and H. GI was consulted. The patient was also seen by Cardiology, Dr. Aguilar. Echocardiogram was done and showed EF of 30% with apical akinesis. The patient had suffered a major heart attack. The patient is on chronic narcotics as well. Recommendations were made to transfer the patient to higher level of care as the patient needs a cardiac catheterization and stents and blood thinners in the setting of GI bleed. The patient's anion gap improved with bicarb drip. The patient was then referred to . [facility] ICU and was accepted by Dr. Campbell. The patient was then transferred once accepted. Overall, her prognosis remains guarded. I did speak with her son, Сергей, and informed him of her situation. Total time spent discharging the patient was 51 minutes. Physical Examination: General: Awake, alert, and oriented x3. Some mild distress. Ill-appearing, obese female. CV: S1, S2. Pulses present. Respiratory: Moving air well bilaterally. Gastrointestinal: Abdomen is soft, nontender, and nondistended. Positive bowel sounds. Extremities: No clubbing, cyanosis, or edema. Neurologic: Nonfocal. SA/MODL Voice ID: [id number] Report ID: [id number] [facility]
== END 2018-10-04 12:18 | disposition short-term general hospital (02) ==
LOC: ER 15:53 → UNDOADMIN 21:54 → ERHOLD 21:54 → 3RD-ICU 10-04 09:47 → ERHOLD 10-04 09:47 → ER 10-04 12:18
PROC: 06HT33Z Insertion of Infusion Device into Right Foot Vein, Percutaneous Approach (ICD-10-PCS; principal; 2018-10-04)
PROC: 30233N1 Transfusion of Nonautologous Red Blood Cells into Peripheral Vein, Percutaneous Approach (ICD-10-PCS; 2018-10-04)
DX: K85.20 Alcohol induced acute pancreatitis without necrosis or infection (principal); E87.2 Acidosis; R11.2 Nausea with vomiting, unspecified; Z88.0 Allergy status to penicillin; Z88.1 Allergy status to other antibiotic agents; Z88.8 Allergy status to other drugs, medicaments and biological substances; Z91.040 Latex allergy status; Z91.048 Other nonmedicinal substance allergy status
CPT/HCPCS: 36415; 36430; 36556; 51702; 71045; 74177; 80048 ×2; 80053; 80076; 80307 ×8; 80320; 80329 ×2; 82805 ×2; 83036; 83605 ×2; 83690; 83735; 83880; 83930; 84484 ×3; 85025 ×3; 85610; 86850; 86900; 86901; 87086; 87088; 93005; 93307; 99285; J2405; J7030 ×3; P9016; Q9967; 81003; 81015

== ENCOUNTER 2019-09-07 15:49 | Emergency (ER) | payer OTHER ==
--- OUTSIDE RECORDS SUMMARY | 2019-09-07 16:05 | XMS REPORT ---
:1960 [facility] Address [address] [place] [address] [address]. [address] [place] [address] Care Team Providers Name Role Phone THERESE TRIANA Unavailable Unavailable Problems This patient has no known problems. Allergies, Adverse Reactions, Alerts This patient has no known allergies or adverse reactions. Medications This patient has no known medications. Results Test Description Test Time Test Comments Text Results Atomic Results Result Comments RAD, ABDOMEN/KUB, 1 2018-10-14 Reason for FINAL REPORT PATIENT ID: VIEW AP 08:21:00 exam:->nauseaIs the [id number] TECHNIQUE: Single patient ?->No View of the Abdomen. INDICATION: Nausea. COMPARISON: Radiographs from 10/12/2018 and 05/05/2018. FINDINGS/IMPRESSION: A nonaggressive appearing sclerotic density over the right greater trochanter is unchanged and likely due to overlapping structures. There is a paucity of small bowel gas. However, overall this is likely a normal bowel gas pattern with some gas in the colon and rectum. Signed: Gilberto Gonsalez MDReport Verified Date/Time: 10/14/2018 08:21:37 Reading Location: [facility] Radiology Reading Room W/PLT COUNT & AUTO DIFFERENTIAL 2018-10-14 08:18:00 Test Item Value Reference Range Comments WHITE BLOOD CELL COUNT (BEAKER) (test nhwa=747) 5.5 K/ L 3.5-10.5 RED BLOOD CELL COUNT (BEAKER) (test bjhy=408) 3.44 M/ L 3.93-5.22 HEMOGLOBIN (BEAKER) (test gadm=900) 10.7 GM/DL 11.2-15.7 HEMATOCRIT (BEAKER) (test yyoh=362) 35.5 % 34.1-44.9 MEAN CORPUSCULAR VOLUME (BEAKER) (test hmnj=196) 103.2 fL 79.4-94.8 MEAN CORPUSCULAR HEMOGLOBIN (BEAKER) (test kgci=823) 31.1 pg 25.6-32.2 MEAN CORPUSCULAR HEMOGLOBIN CONC (BEAKER) (test aacx=041) 30.1 GM/DL 32.2- 35.5 RED CELL DISTRIBUTION WIDTH (BEAKER) (test xsas=008) 17.2 % 11.7-14.4 PLATELET COUNT (BEAKER) (test jcfg=180) 326 K/CU MM 150-450 MEAN PLATELET VOLUME (BEAKER) (test gwml=627) 9.1 fL 9.4-12.3 NUCLEATED RED BLOOD CELLS (BEAKER) (test qdpe=150) 0 /100 WBC 0-0 (CELLAVISION MANUAL DIFF)2018-10-14 08:18:00 Test Item Value Reference Range Comments NEUTROPHILS - REL (CELLAVISION)(BEAKER) (test 8 % kvfu=3006) LYMPHOCYTES - REL (CELLAVISION)(BEAKER) (test 64 % honr=0926) MONOCYTES - REL (CELLAVISION)(BEAKER) (test 21 % cnnd=8085) EOSINOPHILS - REL (CELLAVISION)(BEAKER) (test 6 % ydxs=8633) BASOPHILS - REL (CELLAVISION)(BEAKER) (test 2 % jmwh=1871) NEUTROPHILS - ABS (CELLAVISION)(BEAKER) (test 0.44 K/ul 1.56-6.13 kska=8411) LYMPHOCYTES - ABS (CELLAVISION)(BEAKER) (test 3.52 K/ul 1.18-3.74 jzqs=9382) MONOCYTES - ABS (CELLAVISION)(BEAKER) (test 1.16 K/uL 0.24-0.36 ikco=5363) EOSINOPHILS - ABS (CELLAVISION)(BEAKER) (test 0.33 K/uL 0.04-0.36 uavi=6337) BASOPHILS - ABS (CELLAVISION)(BEAKER) (test 0.11 K/uL 0.01-0.08 ymeq=5780) TOTAL COUNTED (BEAKER) (test asrb=1684) 100 PLT MORPHOLOGY (BEAKER) (test yemy=734) Normal SMUDGE CELLS (BEAKER) (test hlnp=3331) Present ANISOCYTOSIS (BEAKER) (test nreo=990) 1+ few MACROCYTES (BEAKER) (test zdmx=108) 1+ few ARTIFACT (CELLAVISION)(BEAKER) (test tbwu=9710) Present PLATELET CONCENTRATION (CELLAVISION)(BEAKER) (test Adequate jynd=6667) Received comment: User comments: Slide comments:BASIC METABOLIC [id number] 06:23:00 Test Item Value Reference Range Comments SODIUM (BEAKER) (test 140 meq/L 136-145 htxy=210) POTASSIUM (BEAKER) (test 4.6 meq/L 3.5-5.1 slkd=848) CHLORIDE (BEAKER) (test 104 meq/L 98-107 rmtj=975) CO2 (BEAKER) (test 27 meq/L 22-29 slnh=723) BLOOD UREA NITROGEN 9 mg/dL 7-21 (BEAKER) (test sckf=932) CREATININE (BEAKER) (test 0.62 mg/dL 0.57-1.25 mvmo=353) GLUCOSE RANDOM (BEAKER) 190 mg/dL 70-105 (test lrdn=934) CALCIUM (BEAKER) (test 9.4 mg/dL 8.4-10.2 xbgt=101) EGFR (BEAKER) (test 100 mL/min/1.73 sq m ESTIMATED GFR IS NOT pmgd=7246) ACCURATE CREATININE CLEARANCE IN PREDICTING GLOMERULAR FILTRATION RATE. ESTIMATED GFR IS NOT APPLICABLE FOR DIALYSIS PATIENTS. [id number] 09:49:00 Test Item Value Reference Range Comments LIPASE (BEAKER) (test pclg=574) 37 U/L 8-78 HEPATIC FUNCTION [id number] 09:49:00 Test Item Value Reference Range Comments TOTAL PROTEIN (BEAKER) (test snjx=608) 6.3 gm/dL 6.0-8.3 ALBUMIN (BEAKER) (test oofh=3012) 3.6 g/dL 3.5-5.0 BILIRUBIN TOTAL (BEAKER) (test ntkp=071) 0.3 mg/dL 0.2-1.2 BILIRUBIN DIRECT (BEAKER) (test rlqy=307) 0.1 mg/dL 0.1-0.5 ALKALINE PHOSPHATASE (BEAKER) (test mjyy=143) 86 U/L 40-150 AST (SGOT) (BEAKER) (test gauw=850) 51 U/L 5-34 ALT (SGPT) (BEAKER) (test qerc=234) 39 U/L 6-55 (MANUAL DIFFERENTIAL)2018-10-13 08:53:00 Test Item Value Reference Range Comments NEUTROPHILS - REL (DIFF) (BEAKER) (test dfcf=8447) 43 % LYMPHOCYTES - REL (DIFF) (BEAKER) (test zlct=1764) 34 % MONOCYTES - REL (DIFF) (BEAKER) (test rdgq=4997) 16 % EOSINOPHILS - REL (DIFF) (BEAKER) (test vbdm=4143) 2 % BASOPHILS - REL (DIFF) (BEAKER) (test yknk=3802) 0 % MYELOCYTES-REL (DIFF) (BEAKER) (test glps=3267) 1 % 0-0 ATYPICAL LYMPHOCYTE - REL (DIFF) (BEAKER) (test 4 % 0-0 kfzk=164) NEUTROPHILS - ABS (DIFF) (BEAKER) (test xpij=0666) 2.37 K/ L 1.80-8.00 LYMPHOCYTES - ABS (DIFF) (BEAKER) (test cykz=8870) 1.87 K/ L 1.48-4.50 MONOCYTES - ABS (DIFF) (BEAKER) (test lrxg=9387) 0.88 K/ L 0.00-1.30 EOSINOPHILS - ABS (DIFF) (BEAKER) (test ukwu=0941) 0.11 K/ L 0.00-0.50 BASOPHILS - ABS (DIFF) (BEAKER) (test dkml=0850) 0.00 K/ L 0.00-0.20 ATYPICAL LYMPHOCYTES - ABS (DIFF) (BEAKER) (test 0.22 K/ L 0.00-0.00 yjwq=049) MYELOCYTES-ABS (DIFF) (BEAKER) (test nwhz=7604) 0.06 K/ L 0.00-0.00 TOTAL COUNTED (BEAKER) (test vcji=6332) 100 WBC MORPHOLOGY (BEAKER) (test ghws=113) Normal PLT MORPHOLOGY (BEAKER) (test azlo=483) Normal ANISOCYTOSIS (BEAKER) (test jgll=984) 1+ few Differential performed on an albumin smear.BASIC METABOLIC [id number] 03:40 :00 Test Item Value Reference Range Comments SODIUM (BEAKER) (test 136 meq/L 136-145 ocnr=383) POTASSIUM (BEAKER) (test 4.5 meq/L 3.5-5.1 Specimen slightly oees=783) hemolyzed CHLORIDE (BEAKER) (test 101 meq/L 98-107 qzmg=660) CO2 (BEAKER) (test 25 meq/L 22-29 ajtx=918) BLOOD UREA NITROGEN 8 mg/dL 7-21 (BEAKER) (test njbm=663) CREATININE (BEAKER) (test 0.66 mg/dL 0.57-1.25 Specimen slightly ksau=798) hemolyzed GLUCOSE RANDOM (BEAKER) 143 mg/dL 70-105 (test glmn=211) CALCIUM (BEAKER) (test 9.8 mg/dL 8.4-10.2 jeyv=763) EGFR (BEAKER) (test 93 mL/min/1.73 sq m ESTIMATED GFR IS NOT zsxw=5910) ACCURATE CREATININE CLEARANCE IN PREDICTING GLOMERULAR FILTRATION RATE. ESTIMATED GFR IS NOT APPLICABLE FOR DIALYSIS PATIENTS. CBC W/PLT COUNT & AUTO [id number] 03:00:00 Test Item Value Reference Range Comments WHITE BLOOD CELL COUNT (BEAKER) (test vvmb=814) 5.5 K/ L 3.5-10.5 RED BLOOD CELL COUNT (BEAKER) (test jsiq=429) 3.71 M/ L 3.93-5.22 HEMOGLOBIN (BEAKER) (test arvv=801) 11.8 GM/DL 11.2-15.7 HEMATOCRIT (BEAKER) (test eamt=482) 37.6 % 34.1-44.9 MEAN CORPUSCULAR VOLUME (BEAKER) (test xult=575) 101.3 fL 79.4-94.8 MEAN CORPUSCULAR HEMOGLOBIN (BEAKER) (test 31.8 pg 25.6-32.2 mquf=376) MEAN CORPUSCULAR HEMOGLOBIN CONC (BEAKER) (test 31.4 GM/DL 32.2-35.5 jrgm=259) RED CELL DISTRIBUTION WIDTH (BEAKER) (test 17.3 % 11.7-14.4 mrcl=741) PLATELET COUNT (BEAKER) (test qxjf=618) 360 K/CU MM 150-450 MEAN PLATELET VOLUME (BEAKER) (test siqs=913) 9.1 fL 9.4-12.3 NUCLEATED RED BLOOD CELLS (BEAKER) (test 0 /100 WBC 0-0 ssxr=299) POCT-GLUCOSE [id number] 21:19:00 Test Item Value Reference Range Comments POC-GLUCOSE METER (BEAKER) 216 mg/dL 70-110 TESTED AT [facility] [address] [facility] (test pwli=5134) [facility] [address] POCT-GLUCOSE [id number] 12:46:00 Test Item Value Reference Range Comments POC-GLUCOSE METER (BEAKER) 174 mg/dL 70-110 TESTED AT [facility] [address] [facility] (test fplo=7032) [facility] [address] RAD, ABDOMEN/KUB, 1 VIEW [id number] 10:26:00Reason for exam:->abd distension, eval for obstruction/ileusIs the patient ?->NoFINAL REPORT Abdomen. Clinical history: Abdominal distention, evaluate for ileus. COMPARISON STUDY: May 05, 2018. FINDINGS: Three supine views of the abdomen demonstrate nodilated loops of large or small bowel. The regional skeleton is unremarkable. Degenerative changes are seen. This film is insensitive for the detection of free air. Postsurgical changes are seen in thegroins. Signed: Moses Baeza MDRepbarn[facility] Verified Date/Time: 09/2018 10:26:01 Reading Location: [facility] C013Y CT Body Reading Room CBC W/PLT COUNT & AUTO [id number] 09:45:00 Test Item Value Reference Range Comments WHITE BLOOD CELL COUNT (BEAKER) (test puwt=819) 4.2 K/ L 3.5-10.5 RED BLOOD CELL COUNT (BEAKER) (test abek=405) 3.48 M/ L 3.93-5.22 HEMOGLOBIN (BEAKER) (test csyn=167) 10.8 GM/DL 11.2-15.7 HEMATOCRIT (BEAKER) (test ejyk=392) 34.8 % 34.1-44.9 MEAN CORPUSCULAR VOLUME (BEAKER) (test zdtm=810) 100.0 fL 79.4-94.8 MEAN CORPUSCULAR HEMOGLOBIN (BEAKER) (test 31.0 pg 25.6-32.2 gijj=963) MEAN CORPUSCULAR HEMOGLOBIN CONC (BEAKER) (test 31.0 GM/DL 32.2-35.5 jbna=725) RED CELL DISTRIBUTION WIDTH (BEAKER) (test 17.7 % 11.7-14.4 noch=461) PLATELET COUNT (BEAKER) (test tgci=788) 360 K/CU MM 150-450 MEAN PLATELET VOLUME (BEAKER) (test dtef=468) 10.2 fL 9.4-12.3 NUCLEATED RED BLOOD CELLS (BEAKER) (test 0 /100 WBC 0-0 yfah=479) (CELLAVISION MANUAL DIFF)2018-10-12 09:45:00 Test Item Value Reference Range Comments NEUTROPHILS - REL (CELLAVISION)(BEAKER) (test 5 % ifeb=6167) LYMPHOCYTES - REL (CELLAVISION)(BEAKER) (test 58 % fwud=1536) MONOCYTES - REL (CELLAVISION)(BEAKER) (test 32 % puuy=4483) EOSINOPHILS - REL (CELLAVISION)(BEAKER) (test 3 % zfgq=6744) MYELOCYTES - REL (CELLAVISION)(BEAKER) (test 1 % 0-0 issj=8185) BANDS - REL (CELLAVISION)(BEAKER) (test 1 % 0-10 qqiv=9963) NEUTROPHILS - ABS (CELLAVISION)(BEAKER) (test 0.21 K/ul 1.56-6.13 zeus=5635) LYMPHOCYTES - ABS (CELLAVISION)(BEAKER) (test 2.44 K/ul 1.18-3.74 uffg=0271) MONOCYTES - ABS (CELLAVISION)(BEAKER) (test 1.34 K/uL 0.24-0.36 pbew=1602) EOSINOPHILS - ABS (CELLAVISION)(BEAKER) (test 0.13 K/uL 0.04-0.36 gjfg=1552) MYELOCYTES-ABS (CELLAVISION)(BEAKER) (test 0.04 K/uL 0.00-0.00 hebp=6142) BANDS - ABS (CELLAVISION)(BEAKER) (test 0.04 K/uL 0.00-0.80 zxfn=2746) TOTAL COUNTED (BEAKER) (test gknp=4013) 100 MANUAL NRBC PER 100 CELLS (BEAKER) (test 1 /100 WBC 0-0 awzj=9201) PLT MORPHOLOGY (BEAKER) (test sawa=474) Normal SMUDGE CELLS (BEAKER) (test imtv=4552) Present ANISOCYTOSIS (BEAKER) (test svpx=251) 1+ few ARTIFACT (CELLAVISION)(BEAKER) (test nrai=9396) Present PLATELET CONCENTRATION (CELLAVISION)(BEAKER) Adequate (test tmnh=9559) Received comment: User comments: Slide comments:POCT-GLUCOSE [id number] 07: 56:00 Test Item Value Reference Range Comments POC-GLUCOSE METER (BEAKER) 213 mg/dL 70-110 TESTED AT [address] (test mkrf=8106) [place] [address] BASIC METABOLIC [id number] 07:38:00 Test Item Value Reference Range Comments SODIUM (BEAKER) (test 137 meq/L 136-145 jsum=106) POTASSIUM (BEAKER) (test 4.9 meq/L 3.5-5.1 Specimen slightly byyo=446) hemolyzed CHLORIDE (BEAKER) (test 102 meq/L 98-107 wrdd=546) CO2 (BEAKER) (test 23 meq/L 22-29 djzb=971) BLOOD UREA NITROGEN 7 mg/dL 7-21 (BEAKER) (test xbhw=202) CREATININE (BEAKER) (test 0.61 mg/dL 0.57-1.25 Specimen slightly jdsk=395) hemolyzed GLUCOSE RANDOM (BEAKER) 218 mg/dL 70-105 (test mjos=601) CALCIUM (BEAKER) (test 9.2 mg/dL 8.4-10.2 kich=396) EGFR (BEAKER) (test 101 mL/min/1.73 sq m ESTIMATED GFR IS NOT ijab=7994) ACCURATE CREATININE CLEARANCE IN PREDICTING GLOMERULAR FILTRATION RATE. ESTIMATED GFR IS NOT APPLICABLE FOR DIALYSIS PATIENTS. POCT-GLUCOSE [id number] 18:35:00 Test Item Value Reference Range Comments POC-GLUCOSE METER (BEAKER) 196 mg/dL 70-110 TESTED AT [address] (test rhzt=4040) [place] [address] POCT-GLUCOSE [id number] 12:01:00 Test Item Value Reference Range Comments POC-GLUCOSE METER (BEAKER) 184 mg/dL 70-110 TESTED AT [facility] [address] [facility] (test lisr=3466) [facility] [address] POCT-GLUCOSE [id number] 08:12:00 Test Item Value Reference Range Comments POC-GLUCOSE METER (BEAKER) 215 mg/dL 70-110 TESTED AT [place] [id number] [facility] (test xahw=4969) [facility] [address] BASIC METABOLIC [id number] 06:51:00 Test Item Value Reference Range Comments SODIUM (BEAKER) (test 140 meq/L 136-145 slsg=283) POTASSIUM (BEAKER) (test 4.5 meq/L 3.5-5.1 etcp=583) CHLORIDE (BEAKER) (test 102 meq/L 98-107 sekf=260) CO2 (BEAKER) (test 28 meq/L 22-29 epec=885) BLOOD UREA NITROGEN 8 mg/dL 7-21 (BEAKER) (test yrqz=564) CREATININE (BEAKER) (test 0.61 mg/dL 0.57-1.25 ugax=398) GLUCOSE RANDOM (BEAKER) 193 mg/dL 70-105 (test wuda=242) CALCIUM (BEAKER) (test 9.9 mg/dL 8.4-10.2 tjzl=877) EGFR (BEAKER) (test 101 mL/min/1.73 sq m ESTIMATED GFR IS NOT bryl=4249) ACCURATE CREATININE CLEARANCE IN PREDICTING GLOMERULAR FILTRATION RATE. ESTIMATED GFR IS NOT APPLICABLE FOR DIALYSIS PATIENTS. CBC W/PLT COUNT & AUTO [id number] 06:15:00 Test Item Value Reference Range Comments WHITE BLOOD CELL COUNT (BEAKER) (test lmqk=348) 4.3 K/ L 3.5-10.5 RED BLOOD CELL COUNT (BEAKER) (test hwhn=069) 3.63 M/ L 3.93-5.22 HEMOGLOBIN (BEAKER) (test doaq=372) 11.4 GM/DL 11.2-15.7 HEMATOCRIT (BEAKER) (test yvzc=846) 37.2 % 34.1-44.9 MEAN CORPUSCULAR VOLUME (BEAKER) (test knvm=841) 102.5 fL 79.4-94.8 MEAN CORPUSCULAR HEMOGLOBIN (BEAKER) (test 31.4 pg 25.6-32.2 zazr=499) MEAN CORPUSCULAR HEMOGLOBIN CONC (BEAKER) (test 30.6 GM/DL 32.2-35.5 oxgj=441) RED CELL DISTRIBUTION WIDTH (BEAKER) (test 17.9 % 11.7-14.4 vuip=714) PLATELET COUNT (BEAKER) (test rhfa=178) 286 K/CU MM 150-450 MEAN PLATELET VOLUME (BEAKER) (test elyd=493) 9.6 fL 9.4-12.3 NUCLEATED RED BLOOD CELLS (BEAKER) (test 0 /100 WBC 0-0 skxi=726) NEUTROPHILS RELATIVE PERCENT (BEAKER) (test 48 % bsdh=825) LYMPHOCYTES RELATIVE PERCENT (BEAKER) (test 29 % ncjw=487) MONOCYTES RELATIVE PERCENT (BEAKER) (test 20 % rbnw=859) EOSINOPHILS RELATIVE PERCENT (BEAKER) (test 1 % kthd=534) BASOPHILS RELATIVE PERCENT (BEAKER) (test 1 % vaem=810) NEUTROPHILS ABSOLUTE COUNT (BEAKER) (test 2.08 K/ L 1.56-6.13 xphl=940) LYMPHOCYTES ABSOLUTE COUNT (BEAKER) (test 1.26 K/ L 1.18-3.74 qwpn=212) MONOCYTES ABSOLUTE COUNT (BEAKER) (test 0.85 K/ L 0.24-0.36 aspv=393) EOSINOPHILS ABSOLUTE COUNT (BEAKER) (test 0.05 K/ L 0.04-0.36 vghu=762) BASOPHILS ABSOLUTE COUNT (BEAKER) (test 0.04 K/ L 0.01-0.08 ubvr=337) IMMATURE GRANULOCYTES-RELATIVE PERCENT (BEAKER) 1 % 0-1 (test tzea=0874) POCT-GLUCOSE [id number] 22:53:00 Test Item Value Reference Range Comments POC-GLUCOSE METER (BEAKER) 207 mg/dL 70-110 TESTED AT [facility] [address] [facility] (test gxtk=1521) [facility] [address] RAD, CHEST, 1 VIEW, NON [id number] 22:32:00Reason for exam:->coughShould this be performed at the bedside?->YesFINAL REPORT TECHNIQUE: Single view of the chest. COMPARISON: 10/07/2018 FINDINGS: The cardiac silhouette is within normal limits. Mediastinum is unremarkable. Right lung curvilinear density may represent atelectasis or scarring, stable. Otherwise lungs are clear. No acute skeletal abnormality. Soft tissues appear unremarkable. IMPRESSION: No acute cardiopulmonary disease. Signed: Bryce Jalloh MDReport Verified Date/Time: 10/10/2018 22:32:10 Reading Location: [facility] Electronically signed by: BRYCE JALLOH M.D. on 2018 10:32 PMPOCT-GLUCOSE [id number] 22:05:00 Test Item Value Reference Range Comments POC-GLUCOSE METER (BEAKER) 202 mg/dL 70-110 TESTED AT [facility] [address] [facility] (test lncm=0878) [facility] [address] RESPIRATORY PANEL [id number] 13:26:00 Test Item Value Reference Range Comments HUMAN METAPNEUMOVIRUS (BEAKER) (test Not detected Not detected, Equivocal vkti=5733) RHINOVIRUS (BEAKER) (test oijx=0536) Not detected Not detected, Equivocal INFLUENZA A (BEAKER) (test akgx=5100) Not detected Not detected, Equivocal INFLUENZA A (NO SUBTYPE) (test Not detected, Equivocal zjhb=6579) INFLUENZA A SUBTYPE H1 (BEAKER) (test Not detected, Equivocal bqut=5648) INFLUENZA A SUBTYPE H3 (BEAKER) (test Not detected, Equivocal kbia=5666) INFLUENZA A SUBTYPE H1-2009 (BEAKER) Not detected, Equivocal (test njnm=3690) INFLUENZA B (BEAKER) (test kjak=1662) Not detected Not detected, Equivocal RESPIRATORY SYNCYTIAL VIRUS (BEAKER) Not detected Not detected, Equivocal (test rqzy=3211) PARAINFLUENZA VIRUS 1 (BEAKER) (test Not detected Not detected, Equivocal lidp=7569) PARAINFLUENZA VIRUS 2 (BEAKER) (test Not detected Not detected, Equivocal kiek=2489) PARAINFLUENZA VIRUS 3 (BEAKER) (test Not detected Not detected, Equivocal mwfr=3912) PARAINFLUENZA VIRUS 4 (BEAKER) (test Not detected Not detected, Equivocal ovci=9723) ADENOVIRUS (BEAKER) (test gzol=6832) Not detected Not detected, Equivocal CORONAVIRUS 229E (BEAKER) (test Not detected Not detected, Equivocal ikgs=1004) CORONAVIRUS HKU1 (BEAKER) (test Not detected Not detected, Equivocal oelz=5499) CORONAVIRUS NL63 (BEAKER) (test Not detected Not detected, Equivocal rwsi=0757) CORONAVIRUS OC43 (BEAKER) (test Not detected Not detected, Equivocal oxyr=6808) BORDETELLA PERTUSSIS (BEAKER) (test Not detected Not detected, Equivocal jbqs=4916) CHLAMYDOPHILA PNEUMONIAE (BEAKER) (test Not detected Not detected, Equivocal mrzd=4699) MYCOPLASMA PNEUMONIAE (BEAKER) (test Not detected Not detected, Equivocal wtwn=9756) Other viruses and bacteria not targeted by this PCR panel cannot be excluded; therefore clinical correlation and follow up of serology, culture results, and other molecular studies is required. The results are not intended to be used as the sole means for clinical diagnosis or patient management decisions. This sample was tested at the [facility] using the [employer] Respiratory Panel. It is FDA cleared and has been verified and approved by the [facility] for clinical use on nasal swab specimens. It is not FDA-cleared for use on bronchial wash/lavage samples. However, for this sample type, validation was performed and test characteristics were determined and approved, by [facility] for clinical use under the Clinical Laboratory Improvement Amendments (CLIA) of 1988 requirements. Therefore, FDA clearance isnot required. This laboratory is CLIA-certified and [employer] ([employer])-accredited to perform high complexity testing.POCT-GLUCOSE [id number] 11:47:00 Test Item Value Reference Range Comments POC-GLUCOSE METER (BEAKER) 163 mg/dL 70-110 TESTED AT [address] (test dflc=2440) [place] [address] POCT-GLUCOSE [id number] 08:34:00 Test Item Value Reference Range Comments POC-GLUCOSE METER (BEAKER) 141 mg/dL 70-110 TESTED AT [address] (test ggrw=7027) [place] [address] BASIC METABOLIC [id number] 06:51:00 Test Item Value Reference Range Comments SODIUM (BEAKER) (test 138 meq/L 136-145 yqpn=030) POTASSIUM (BEAKER) (test 4.1 meq/L 3.5-5.1 blwi=783) CHLORIDE (BEAKER) (test 101 meq/L 98-107 daqw=164) CO2 (BEAKER) (test 28 meq/L 22-29 vxyq=022) BLOOD UREA NITROGEN 5 mg/dL 7-21 (BEAKER) (test dalm=703) CREATININE (BEAKER) (test 0.55 mg/dL 0.57-1.25 usqx=995) GLUCOSE RANDOM (BEAKER) 152 mg/dL 70-105 (test tukk=722) CALCIUM (BEAKER) (test 9.7 mg/dL 8.4-10.2 hshx=148) EGFR (BEAKER) (test 114 mL/min/1.73 sq m ESTIMATED GFR IS NOT exia=3228) ACCURATE CREATININE CLEARANCE IN PREDICTING GLOMERULAR FILTRATION RATE. ESTIMATED GFR IS NOT APPLICABLE FOR DIALYSIS PATIENTS. CBC W/PLT COUNT & AUTO [id number] 06:35:00 Test Item Value Reference Range Comments WHITE BLOOD CELL COUNT (BEAKER) (test uryr=360) 4.6 K/ L 3.5-10.5 RED BLOOD CELL COUNT (BEAKER) (test zyst=231) 3.54 M/ L 3.93-5.22 HEMOGLOBIN (BEAKER) (test evyj=863) 11.1 GM/DL 11.2-15.7 HEMATOCRIT (BEAKER) (test rfpq=299) 35.7 % 34.1-44.9 MEAN CORPUSCULAR VOLUME (BEAKER) (test wcom=129) 100.8 fL 79.4-94.8 MEAN CORPUSCULAR HEMOGLOBIN (BEAKER) (test 31.4 pg 25.6-32.2 rejc=310) MEAN CORPUSCULAR HEMOGLOBIN CONC (BEAKER) (test 31.1 GM/DL 32.2-35.5 jwkn=742) RED CELL DISTRIBUTION WIDTH (BEAKER) (test 18.3 % 11.7-14.4 bwxg=373) PLATELET COUNT (BEAKER) (test bpeu=109) 252 K/CU MM 150-450 MEAN PLATELET VOLUME (BEAKER) (test riqt=088) 9.5 fL 9.4-12.3 NUCLEATED RED BLOOD CELLS (BEAKER) (test 0 /100 WBC 0-0 pcjk=482) NEUTROPHILS RELATIVE PERCENT (BEAKER) (test 57 % ebjk=956) LYMPHOCYTES RELATIVE PERCENT (BEAKER) (test 21 % sdfs=899) MONOCYTES RELATIVE PERCENT (BEAKER) (test 19 % wgig=904) EOSINOPHILS RELATIVE PERCENT (BEAKER) (test 1 % wmhd=569) BASOPHILS RELATIVE PERCENT (BEAKER) (test 1 % tgrg=709) NEUTROPHILS ABSOLUTE COUNT (BEAKER) (test 2.63 K/ L 1.56-6.13 nihw=627) LYMPHOCYTES ABSOLUTE COUNT (BEAKER) (test 0.96 K/ L 1.18-3.74 wajl=951) MONOCYTES ABSOLUTE COUNT (BEAKER) (test 0.90 K/ L 0.24-0.36 xtaa=001) EOSINOPHILS ABSOLUTE COUNT (BEAKER) (test 0.06 K/ L 0.04-0.36 oxzk=876) BASOPHILS ABSOLUTE COUNT (BEAKER) (test 0.04 K/ L 0.01-0.08 pfny=441) IMMATURE GRANULOCYTES-RELATIVE PERCENT (BEAKER) 1 % 0-1 (test enzy=7786) POCT-GLUCOSE [id number] 21:25:00 Test Item Value Reference Range Comments POC-GLUCOSE METER (BEAKER) 199 mg/dL 70-110 TESTED AT [address] (test fhhk=1503) [place] [address] BLOOD [id number] 19:00:00 Test Item Value Reference Range Comments CULTURE (BEAKER) (test qsca=4077) No growth in 5 days BLOOD [id number] 19:00:00 Test Item Value Reference Range Comments CULTURE (BEAKER) (test tukj=9401) No growth in 5 days POCT-GLUCOSE [id number] 18:16:00 Test Item Value Reference Range Comments POC-GLUCOSE METER (BEAKER) 149 mg/dL 70-110 TESTED AT [address] (test gjlc=4018) [place] [address] OVA AND PARASITE [id number] 08:39:00 Test Item Value Reference Range Comments CONCENTRATE SMEAR - O\T\P No ova or parasites seen No ova or parasites seen (BEAKER) (test wtye=137) TRICHROME SMEAR - O\T\P No ova or parasites seen No ova or parasites seen (BEAKER) (test crin=242) POCT-GLUCOSE [id number] 07:38:00 Test Item Value Reference Range Comments POC-GLUCOSE METER (BEAKER) 169 mg/dL 70-110 TESTED AT [facility] [address] (test dhwc=2585) [facility] [address] BASIC METABOLIC [id number] 05:07:00 Test Item Value Reference Range Comments SODIUM (BEAKER) (test 138 meq/L 136-145 ages=352) POTASSIUM (BEAKER) (test 3.9 meq/L 3.5-5.1 jhut=373) CHLORIDE (BEAKER) (test 101 meq/L 98-107 jane=979) CO2 (BEAKER) (test 27 meq/L 22-29 ffhm=884) BLOOD UREA NITROGEN 7 mg/dL 7-21 (BEAKER) (test lalc=825) CREATININE (BEAKER) (test 0.58 mg/dL 0.57-1.25 wwzm=417) GLUCOSE RANDOM (BEAKER) 174 mg/dL 70-105 (test rqip=393) CALCIUM (BEAKER) (test 9.5 mg/dL 8.4-10.2 adqo=446) EGFR (BEAKER) (test 108 mL/min/1.73 sq m ESTIMATED GFR IS NOT pucq=0742) ACCURATE CREATININE CLEARANCE IN PREDICTING GLOMERULAR FILTRATION RATE. ESTIMATED GFR IS NOT APPLICABLE FOR DIALYSIS PATIENTS. CBC W/PLT COUNT & AUTO [id number] 04:51:00 Test Item Value Reference Range Comments WHITE BLOOD CELL COUNT (BEAKER) (test nsju=405) 4.2 K/ L 3.5-10.5 RED BLOOD CELL COUNT (BEAKER) (test jasz=242) 4.03 M/ L 3.93-5.22 HEMOGLOBIN (BEAKER) (test nppn=716) 12.6 GM/DL 11.2-15.7 HEMATOCRIT (BEAKER) (test gnow=569) 40.5 % 34.1-44.9 MEAN CORPUSCULAR VOLUME (BEAKER) (test gkzh=903) 100.5 fL 79.4-94.8 MEAN CORPUSCULAR HEMOGLOBIN (BEAKER) (test 31.3 pg 25.6-32.2 eycb=999) MEAN CORPUSCULAR HEMOGLOBIN CONC (BEAKER) (test 31.1 GM/DL 32.2-35.5 hged=892) RED CELL DISTRIBUTION WIDTH (BEAKER) (test 18.6 % 11.7-14.4 foev=827) PLATELET COUNT (BEAKER) (test garm=822) 239 K/CU MM 150-450 MEAN PLATELET VOLUME (BEAKER) (test kbea=996) 9.7 fL 9.4-12.3 NUCLEATED RED BLOOD CELLS (BEAKER) (test 0 /100 WBC 0-0 kolk=620) NEUTROPHILS RELATIVE PERCENT (BEAKER) (test 57 % srdb=548) LYMPHOCYTES RELATIVE PERCENT (BEAKER) (test 26 % kwvt=292) MONOCYTES RELATIVE PERCENT (BEAKER) (test 15 % ywqe=697) EOSINOPHILS RELATIVE PERCENT (BEAKER) (test 1 % domf=642) BASOPHILS RELATIVE PERCENT (BEAKER) (test 1 % zbra=328) NEUTROPHILS ABSOLUTE COUNT (BEAKER) (test 2.39 K/ L 1.56-6.13 aftr=275) LYMPHOCYTES ABSOLUTE COUNT (BEAKER) (test 1.10 K/ L 1.18-3.74 evjk=705) MONOCYTES ABSOLUTE COUNT (BEAKER) (test 0.62 K/ L 0.24-0.36 ihxd=096) EOSINOPHILS ABSOLUTE COUNT (BEAKER) (test 0.04 K/ L 0.04-0.36 tzgr=549) BASOPHILS ABSOLUTE COUNT (BEAKER) (test 0.03 K/ L 0.01-0.08 ooem=667) IMMATURE GRANULOCYTES-RELATIVE PERCENT (BEAKER) 1 % 0-1 (test tcqe=8188) POCT-GLUCOSE [id number] 20:27:00 Test Item Value Reference Range Comments POC-GLUCOSE METER (BEAKER) 200 mg/dL 70-110 TESTED AT [address] (test shab=3845) [facility] [address] POCT-GLUCOSE [id number] 17:20:00 Test Item Value Reference Range Comments POC-GLUCOSE METER (BEAKER) 242 mg/dL 70-110 TESTED AT [address] (test yodh=6996) [place] [id number] POCT-GLUCOSE [id number] 13:03:00 Test Item Value Reference Range Comments POC-GLUCOSE METER (BEAKER) 146 mg/dL 70-110 TESTED AT [address] (test xvkh=3651) [facility] [address] POCT-GLUCOSE [id number] 08:06:00 Test Item Value Reference Range Comments POC-GLUCOSE METER (BEAKER) 150 mg/dL 70-110 TESTED AT [facility] [address] (test ufln=1648) [facility] [address] [id number] 04:31:00 Test Item Value Reference Range Comments PHOSPHORUS (BEAKER) (test ehra=689) 3.4 mg/dL 2.3-4.7 [id number] 04:31:00 Test Item Value Reference Range Comments MAGNESIUM (BEAKER) (test uygo=068) 2.1 mg/dL 1.6-2.6 BASIC METABOLIC [id number] 04:31:00 Test Item Value Reference Range Comments SODIUM (BEAKER) (test 137 meq/L 136-145 dqjz=875) POTASSIUM (BEAKER) (test 4.2 meq/L 3.5-5.1 vuhj=085) CHLORIDE (BEAKER) (test 99 meq/L 98-107 jbyk=263) CO2 (BEAKER) (test 31 meq/L 22-29 edry=221) BLOOD UREA NITROGEN 10 mg/dL 7-21 (BEAKER) (test aomz=846) CREATININE (BEAKER) (test 0.60 mg/dL 0.57-1.25 rcfw=273) GLUCOSE RANDOM (BEAKER) 148 mg/dL 70-105 (test oraz=283) CALCIUM (BEAKER) (test 9.6 mg/dL 8.4-10.2 ukkd=554) EGFR (BEAKER) (test 103 mL/min/1.73 sq m ESTIMATED GFR IS NOT fyzd=5621) ACCURATE CREATININE CLEARANCE IN PREDICTING GLOMERULAR FILTRATION RATE. ESTIMATED GFR IS NOT APPLICABLE FOR DIALYSIS PATIENTS. CBC W/PLT COUNT & AUTO [id number] 04:15:00 Test Item Value Reference Range Comments WHITE BLOOD CELL COUNT (BEAKER) (test fslo=151) 5.7 K/ L 3.5-10.5 RED BLOOD CELL COUNT (BEAKER) (test ljbz=413) 3.94 M/ L 3.93-5.22 HEMOGLOBIN (BEAKER) (test mgoc=930) 12.3 GM/DL 11.2-15.7 HEMATOCRIT (BEAKER) (test dlfs=185) 39.8 % 34.1-44.9 MEAN CORPUSCULAR VOLUME (BEAKER) (test xqhc=633) 101.0 fL 79.4-94.8 MEAN CORPUSCULAR HEMOGLOBIN (BEAKER) (test 31.2 pg 25.6-32.2 cqau=471) MEAN CORPUSCULAR HEMOGLOBIN CONC (BEAKER) (test 30.9 GM/DL 32.2-35.5 hhff=935) RED CELL DISTRIBUTION WIDTH (BEAKER) (test 19.2 % 11.7-14.4 wqxv=536) PLATELET COUNT (BEAKER) (test hijp=555) 232 K/CU MM 150-450 MEAN PLATELET VOLUME (BEAKER) (test cuoz=299) 9.4 fL 9.4-12.3 NUCLEATED RED BLOOD CELLS (BEAKER) (test 0 /100 WBC 0-0 apmh=746) NEUTROPHILS RELATIVE PERCENT (BEAKER) (test 57 % vrja=376) LYMPHOCYTES RELATIVE PERCENT (BEAKER) (test 26 % pvbz=295) MONOCYTES RELATIVE PERCENT (BEAKER) (test 15 % igwa=465) EOSINOPHILS RELATIVE PERCENT (BEAKER) (test 1 % kxxz=243) BASOPHILS RELATIVE PERCENT (BEAKER) (test 1 % nnfn=428) NEUTROPHILS ABSOLUTE COUNT (BEAKER) (test 3.25 K/ L 1.56-6.13 eqwe=026) LYMPHOCYTES ABSOLUTE COUNT (BEAKER) (test 1.48 K/ L 1.18-3.74 fsys=362) MONOCYTES ABSOLUTE COUNT (BEAKER) (test 0.83 K/ L 0.24-0.36 vldc=119) EOSINOPHILS ABSOLUTE COUNT (BEAKER) (test 0.08 K/ L 0.04-0.36 pagv=691) BASOPHILS ABSOLUTE COUNT (BEAKER) (test 0.03 K/ L 0.01-0.08 gjbk=946) IMMATURE GRANULOCYTES-RELATIVE PERCENT (BEAKER) 1 % 0-1 (test wuyh=8719) [id number] 15:17:00 Test Item Value Reference Range Comments POTASSIUM (BEAKER) (test yodh=049) 4.5 meq/L 3.5-5.1 [id number] 15:17:00 Test Item Value Reference Range Comments MAGNESIUM (BEAKER) (test rhth=851) 2.3 mg/dL 1.6-2.6 [id number] 15:17:00 Test Item Value Reference Range Comments PHOSPHORUS (BEAKER) (test kvgn=510) 2.5 mg/dL 2.3-4.7 HEMOGLOBIN AND [id number] 14:53:00 Test Item Value Reference Range Comments HEMOGLOBIN (BEAKER) (test tozj=094) 14.4 GM/DL 11.2-15.7 HEMATOCRIT (BEAKER) (test pfme=144) 44.9 % 34.1-44.9 [id number] 09:39:00 Test Item Value Reference Range Comments POTASSIUM (BEAKER) (test tpzv=879) 3.7 meq/L 3.5-5.1 [id number] 09:39:00 Test Item Value Reference Range Comments MAGNESIUM (BEAKER) (test ndzc=450) 2.4 mg/dL 1.6-2.6 RAD, CHEST, 1 VIEW, NON [id number] 08:09:00Reason for exam:->pulm edemaShould this be performed at the bedside?->YesFINAL REPORT TECHNIQUE: Frontal view of the chest. INDICATION: 58-year-old woman with pulmonary edema. COMPARISON: Chest radiograph 10/06/2018. FINDINGS: LINES/ TUBES: None. LUNGS: The lungs are well inflated and clear. Unchanged suture projects over the right midlung zone with adjacent linear scarring. PLEURA: No pneumothorax or significant pleural effusion. HEART AND MEDIASTINUM: The cardiomediastinal silhouette is unchanged. SOFT TISSUES AND BONES: Unremarkable. IMPRESSION:No significant change since 10/06/2018. Signed: Lillie Jones MDReport Verified Date/Time: 10/07/2018 08:09:09 Reading Location: [facility] Radiology Reading Room POCT-GLUCOSE [id number] 06:00:00 Test Item Value Reference Range Comments POC-GLUCOSE METER (BEAKER) 111 mg/dL 70-110 TESTED AT [facility] [address] [facility] (test vkfx=3252) [facility] [address] [id number] 05:22:00 Test Item Value Reference Range Comments PHOSPHORUS (BEAKER) (test bqku=580) 2.9 mg/dL 2.3-4.7 [id number] 05:22:00 Test Item Value Reference Range Comments MAGNESIUM (BEAKER) (test uqvl=088) 2.4 mg/dL 1.6-2.6 BASIC METABOLIC [id number] 05:22:00 Test Item Value Reference Range Comments SODIUM (BEAKER) (test 141 meq/L 136-145 sqgj=536) POTASSIUM (BEAKER) (test 3.5 meq/L 3.5-5.1 qldy=848) CHLORIDE (BEAKER) (test 103 meq/L 98-107 vwyw=874) CO2 (BEAKER) (test 28 meq/L 22-29 khlj=028) BLOOD UREA NITROGEN 4 mg/dL 7-21 (BEAKER) (test drbm=816) CREATININE (BEAKER) (test 0.48 mg/dL 0.57-1.25 eiry=192) GLUCOSE RANDOM (BEAKER) 127 mg/dL 70-105 (test ybvn=516) CALCIUM (BEAKER) (test 8.8 mg/dL 8.4-10.2 kbld=535) EGFR (BEAKER) (test 134 mL/min/1.73 sq m ESTIMATED GFR IS NOT sies=1569) ACCURATE CREATININE CLEARANCE IN PREDICTING GLOMERULAR FILTRATION RATE. ESTIMATED GFR IS NOT APPLICABLE FOR DIALYSIS PATIENTS. CBC W/PLT COUNT & AUTO [id number] 05:03:00 Test Item Value Reference Range Comments WHITE BLOOD CELL COUNT (BEAKER) (test idto=397) 4.3 K/ L 3.5-10.5 RED BLOOD CELL COUNT (BEAKER) (test wswo=946) 4.03 M/ L 3.93-5.22 HEMOGLOBIN (BEAKER) (test fceu=259) 12.4 GM/DL 11.2-15.7 HEMATOCRIT (BEAKER) (test yzwy=025) 38.9 % 34.1-44.9 MEAN CORPUSCULAR VOLUME (BEAKER) (test bqqx=346) 96.5 fL 79.4-94.8 MEAN CORPUSCULAR HEMOGLOBIN (BEAKER) (test 30.8 pg 25.6-32.2 hytl=167) MEAN CORPUSCULAR HEMOGLOBIN CONC (BEAKER) (test 31.9 GM/DL 32.2-35.5 pfpl=839) RED CELL DISTRIBUTION WIDTH (BEAKER) (test 19.2 % 11.7-14.4 ljxn=746) PLATELET COUNT (BEAKER) (test tmdv=964) 203 K/CU MM 150-450 MEAN PLATELET VOLUME (BEAKER) (test harn=200) 9.9 fL 9.4-12.3 NUCLEATED RED BLOOD CELLS (BEAKER) (test 1 /100 WBC 0-0 apqj=475) NEUTROPHILS RELATIVE PERCENT (BEAKER) (test 58 % onzv=011) LYMPHOCYTES RELATIVE PERCENT (BEAKER) (test 24 % weau=110) MONOCYTES RELATIVE PERCENT (BEAKER) (test 14 % epnl=927) EOSINOPHILS RELATIVE PERCENT (BEAKER) (test 2 % tqwt=780) BASOPHILS RELATIVE PERCENT (BEAKER) (test 1 % agdl=740) NEUTROPHILS ABSOLUTE COUNT (BEAKER) (test 2.52 K/ L 1.56-6.13 dscd=932) LYMPHOCYTES ABSOLUTE COUNT (BEAKER) (test 1.05 K/ L 1.18-3.74 zecj=749) MONOCYTES ABSOLUTE COUNT (BEAKER) (test 0.60 K/ L 0.24-0.36 vbyh=565) EOSINOPHILS ABSOLUTE COUNT (BEAKER) (test 0.08 K/ L 0.04-0.36 vvnm=655) BASOPHILS ABSOLUTE COUNT (BEAKER) (test 0.03 K/ L 0.01-0.08 zcpp=365) IMMATURE GRANULOCYTES-RELATIVE PERCENT (BEAKER) 1 % 0-1 (test ejqs=3847) [id number] 00:55:00 Test Item Value Reference Range Comments POTASSIUM (BEAKER) (test wojw=010) 3.6 meq/L 3.5-5.1 [id number] 00:55:00 Test Item Value Reference Range Comments MAGNESIUM (BEAKER) (test xedd=739) 2.0 mg/dL 1.6-2.6 POCT-GLUCOSE [id number] 00:32:00 Test Item Value Reference Range Comments POC-GLUCOSE METER (BEAKER) 125 mg/dL 70-110 TESTED AT [address] (test tjio=4981) [facility] [address] POCT-GLUCOSE [id number] 20:19:00 Test Item Value Reference Range Comments POC-GLUCOSE METER (BEAKER) 209 mg/dL 70-110 TESTED AT [address] (test laee=5386) [place] [address] [id number] 16:56:00 Test Item Value Reference Range Comments PHOSPHORUS (BEAKER) (test wtgb=457) 1.2 mg/dL 2.3-4.7 [id number] 16:52:00 Test Item Value Reference Range Comments POTASSIUM (BEAKER) (test umjh=525) 3.6 meq/L 3.5-5.1 [id number] 16:52:00 Test Item Value Reference Range Comments MAGNESIUM (BEAKER) (test twnj=649) 2.3 mg/dL 1.6-2.6 HEMOGLOBIN AND [id number] 16:35:00 Test Item Value Reference Range Comments HEMOGLOBIN (BEAKER) (test shfw=936) 12.6 GM/DL 11.2-15.7 HEMATOCRIT (BEAKER) (test hpvn=318) 37.7 % 34.1-44.9 C. DIFFICILE GDH [id number] 16:20:00 Test Item Value Reference Range Comments CDT TOXIN (test Negative Negative uapi=[id number]) CDT GDH ANTIGEN (test Positive Negative C. difficile present but toxin dkyg=[id number]) not detected. Indicates colonization with non-toxigenic strain or level of toxin below detectable levels. No need for enteric isolation. Treatment is rarely needed (only when strong clinical suspicion for Clostridium difficile infection) Testing performed by [employer] Rapid Cassette Assay. For GDH, published sensitivity of the assay is 98.7% compared to cytotoxicity testing. For Toxin AB, published sensitivity is 87.8% and specificity 99.4% compared to cytotoxicity testing.Verification of kit performance was done by the [facility] prior to clinical use.[id number] 12:30:00 Test Item Value Reference Range Comments POTASSIUM (BEAKER) (test xoio=999) 3.4 meq/L 3.5-5.1 Check Serum Potassium level 2 hours after oral potassium replacement completed or 30 min after intravenous potassium replacement.POCT-GLUCOSE [id number] 12:11:00 Test Item Value Reference Range Comments POC-GLUCOSE METER (BEAKER) 183 mg/dL 70-110 TESTED AT [facility] [address] (test hicm=8493) [place] [address] RAD, CHEST, 1 VIEW, NON [id number] 08:17:00Reason for exam:->pulm edemaShould this be performed at the bedside?->YesFINAL REPORT Chest, one view History: Pulmonary edema Comparison: 10/05/2018 Findings :Clear lungs. Normal size heart. No pleural effusion or pneumothorax. Impression:No acute findings in the chest Signed: Mehul Crowder MDReport Verified Date/Time: 10/06/2018 08:17:06 Reading Location: [address] Ortho Consult Reading Room Electronically signed by: MEHUL CROWDER MD on 2018 08:17 AMPOCT-GLUCOSE [id number] 05:51:00 Test Item Value Reference Range Comments POC-GLUCOSE METER (BEAKER) 129 mg/dL 70-110 TESTED AT [facility] [address] [facility] (test anux=9830) [facility] [address] [id number] 05:17:00 Test Item Value Reference Range Comments PHOSPHORUS (BEAKER) (test ugzk=792) 1.3 mg/dL 2.3-4.7 BASIC METABOLIC [id number] 05:14:00 Test Item Value Reference Range Comments SODIUM (BEAKER) (test 141 meq/L 136-145 cogr=625) POTASSIUM (BEAKER) (test 2.6 meq/L 3.5-5.1 llcn=187) CHLORIDE (BEAKER) (test 99 meq/L 98-107 udqy=747) CO2 (BEAKER) (test 30 meq/L 22-29 rllb=252) BLOOD UREA NITROGEN 5 mg/dL 7-21 (BEAKER) (test vzvk=783) CREATININE (BEAKER) (test 0.52 mg/dL 0.57-1.25 ssnp=382) GLUCOSE RANDOM (BEAKER) 133 mg/dL 70-105 (test ppfh=242) CALCIUM (BEAKER) (test 8.9 mg/dL 8.4-10.2 eydl=134) EGFR (BEAKER) (test 122 mL/min/1.73 sq m ESTIMATED GFR IS NOT lett=9098) ACCURATE CREATININE CLEARANCE IN PREDICTING GLOMERULAR FILTRATION RATE. ESTIMATED GFR IS NOT APPLICABLE FOR DIALYSIS PATIENTS. [id number] 05:06:00 Test Item Value Reference Range Comments MAGNESIUM (BEAKER) (test mvzu=349) 2.2 mg/dL 1.6-2.6 CBC W/PLT COUNT & AUTO [id number] 04:37:00 Test Item Value Reference Range Comments WHITE BLOOD CELL COUNT (BEAKER) (test xkcm=487) 4.8 K/ L 3.5-10.5 RED BLOOD CELL COUNT (BEAKER) (test lcpm=101) 3.94 M/ L 3.93-5.22 HEMOGLOBIN (BEAKER) (test mjcr=044) 12.2 GM/DL 11.2-15.7 HEMATOCRIT (BEAKER) (test cxgq=042) 37.5 % 34.1-44.9 MEAN CORPUSCULAR VOLUME (BEAKER) (test sftx=668) 95.2 fL 79.4-94.8 MEAN CORPUSCULAR HEMOGLOBIN (BEAKER) (test 31.0 pg 25.6-32.2 sgdz=825) MEAN CORPUSCULAR HEMOGLOBIN CONC (BEAKER) (test 32.5 GM/DL 32.2-35.5 regq=215) RED CELL DISTRIBUTION WIDTH (BEAKER) (test 18.4 % 11.7-14.4 odgc=212) PLATELET COUNT (BEAKER) (test vznc=076) 156 K/CU MM 150-450 MEAN PLATELET VOLUME (BEAKER) (test qvtr=938) 10.2 fL 9.4-12.3 NUCLEATED RED BLOOD CELLS (BEAKER) (test 0 /100 WBC 0-0 bwwt=212) NEUTROPHILS RELATIVE PERCENT (BEAKER) (test 62 % sydu=135) LYMPHOCYTES RELATIVE PERCENT (BEAKER) (test 22 % swho=311) MONOCYTES RELATIVE PERCENT (BEAKER) (test 14 % zfaa=150) EOSINOPHILS RELATIVE PERCENT (BEAKER) (test 1 % kuvf=270) BASOPHILS RELATIVE PERCENT (BEAKER) (test 0 % jtri=528) NEUTROPHILS ABSOLUTE COUNT (BEAKER) (test 2.93 K/ L 1.56-6.13 cvfa=189) LYMPHOCYTES ABSOLUTE COUNT (BEAKER) (test 1.06 K/ L 1.18-3.74 zgze=235) MONOCYTES ABSOLUTE COUNT (BEAKER) (test 0.67 K/ L 0.24-0.36 bqbm=996) EOSINOPHILS ABSOLUTE COUNT (BEAKER) (test 0.03 K/ L 0.04-0.36 nuny=564) BASOPHILS ABSOLUTE COUNT (BEAKER) (test 0.02 K/ L 0.01-0.08 uoom=848) IMMATURE GRANULOCYTES-RELATIVE PERCENT (BEAKER) 1 % 0-1 (test jwma=5166) POCT-GLUCOSE [id number] 00:13:00 Test Item Value Reference Range Comments POC-GLUCOSE METER (BEAKER) 143 mg/dL 70-110 TESTED AT [address] (test fluf=1498) [facility] [address] TROPONIN [id number] 20:52:00 Test Item Value Reference Range Comments TROPONIN I (BEAKER) (test llfb=893) 0.91 ng/mL 0.00-0.03 Troponin I (TnI) levels must [...] failure, acidosis, acute neurological disease, and persistent tachyarrhythmia.LACTIC ACID, VENOUS, WHOLE [id number] 20:20:00 Test Item Value Reference Range Comments LACTATE BLOOD VENOUS (2) (BEAKER) (test 0.8 mmol/L 0.5-2.2 ujez=5166) HEMOGLOBIN AND [id number] 20:08:00 Test Item Value Reference Range Comments HEMOGLOBIN (BEAKER) (test wqec=748) 12.3 GM/DL 11.2-15.7 HEMATOCRIT (BEAKER) (test xrhq=057) 37.4 % 34.1-44.9 HEMOGLOBIN AND [id number] 13:24:00 Test Item Value Reference Range Comments HEMOGLOBIN (BEAKER) (test wzfv=918) 11.8 GM/DL 11.2-15.7 HEMATOCRIT (BEAKER) (test shni=747) 35.8 % 34.1-44.9 [id number] 12:51:00 Test Item Value Reference Range Comments FERRITIN (BEAKER) (test ftdy=308) 155 ng/mL 5-275 POCT-GLUCOSE [id number] 12:20:00 Test Item Value Reference Range Comments POC-GLUCOSE METER (BEAKER) 154 mg/dL 70-110 TESTED AT [address] (test swot=9721) [place] [id number] IRON, TIBC, % SAT. (WITHOUT FERRITIN)2018-10-05 10:36:00 Test Item Value Reference Range Comments IRON (BEAKER) (test rrod=124) 41.0 ug/dL 40.0-160.0 TOTAL IRON BINDING CAPACITY (BEAKER) (test 185 ug/dL 250-450 fvrk=139) IRON % SATURATION (2) (BEAKER) (test xdht=3357) 22 % 20-55 HEMOGLOBIN [id number] 10:31:00 Test Item Value Reference Range Comments HEMOGLOBIN A1C (BEAKER) (test jcvq=128) 4.7 % 4.3-6.1 VITAMIN [id number] 09:05:00 Test Item Value Reference Range Comments VITAMIN B12 (BEAKER) (test wvhe=507) 885 pg/mL 213-816 POCT-GLUCOSE [id number] 07:16:00 Test Item Value Reference Range Comments POC-GLUCOSE METER (BEAKER) 152 mg/dL 70-110 TESTED AT [address] (test qoow=8258) [facility] [address] RAD, CHEST, 1 VIEW, NON [id number] 06:56:00Reason for exam:->pulm edemaShould this be performed at the bedside?->YesFINAL REPORT RAD, CHEST, 1 VIEW, NON DEPT INDICATION: pulm edema COMPARISON: Prior day's exam FINDINGS: Portable frontal view of the chest. IMPRESSION: Lungs and pleura: Unchanged airspace and pleural opacities. No pneumothorax.Heart and mediastinum: Stable contours. Additional findings: None. Signed: Rell Mcgovern Verified Date/Time: 10/05/2018 06:56:36 Reading Location: [address] Reading Room TROPONIN [id number] 06:09:00 Test Item Value Reference Range Comments TROPONIN I (BEAKER) (test rowr=861) 1.52 ng/mL 0.00-0.03 Troponin I (TnI) levels must [...] acute neurological disease, and persistent tachyarrhythmia.BASIC METABOLIC [id number] 05:51:00 Test Item Value Reference Range Comments SODIUM (BEAKER) (test 140 meq/L 136-145 hkuf=435) POTASSIUM (BEAKER) (test 2.8 meq/L 3.5-5.1 isto=251) CHLORIDE (BEAKER) (test 106 meq/L 98-107 davi=225) CO2 (BEAKER) (test 23 meq/L 22-29 taht=179) BLOOD UREA NITROGEN 4 mg/dL 7-21 (BEAKER) (test rlej=218) CREATININE (BEAKER) (test 0.58 mg/dL 0.57-1.25 pexr=198) GLUCOSE RANDOM (BEAKER) 151 mg/dL 70-105 (test ltnm=792) CALCIUM (BEAKER) (test 7.9 mg/dL 8.4-10.2 xtrz=379) EGFR (BEAKER) (test 108 mL/min/1.73 sq m ESTIMATED GFR IS NOT xmmb=1553) ACCURATE CREATININE CLEARANCE IN PREDICTING GLOMERULAR FILTRATION RATE. ESTIMATED GFR IS NOT APPLICABLE FOR DIALYSIS PATIENTS. [id number] 05:20:00 Test Item Value Reference Range Comments PHOSPHORUS (BEAKER) (test gopw=776) 2.2 mg/dL 2.3-4.7 [id number] 05:20:00 Test Item Value Reference Range Comments MAGNESIUM (BEAKER) (test wbwh=307) 1.8 mg/dL 1.6-2.6 HEMOGLOBIN AND [id number] 05:01:00 Test Item Value Reference Range Comments HEMOGLOBIN (BEAKER) (test eppx=557) 11.4 GM/DL 11.2-15.7 HEMATOCRIT (BEAKER) (test xebf=493) 34.4 % 34.1-44.9 CBC W/PLT COUNT & AUTO [id number] 04:58:00 Test Item Value Reference Range Comments WHITE BLOOD CELL COUNT (BEAKER) (test ycds=067) 6.2 K/ L 3.5-10.5 RED BLOOD CELL COUNT (BEAKER) (test uiqh=605) 3.63 M/ L 3.93-5.22 HEMOGLOBIN (BEAKER) (test hfbh=108) 11.3 GM/DL 11.2-15.7 HEMATOCRIT (BEAKER) (test xkvf=500) 34.3 % 34.1-44.9 MEAN CORPUSCULAR VOLUME (BEAKER) (test uppp=719) 94.5 fL 79.4-94.8 MEAN CORPUSCULAR HEMOGLOBIN (BEAKER) (test 31.1 pg 25.6-32.2 oiev=463) MEAN CORPUSCULAR HEMOGLOBIN CONC (BEAKER) (test 32.9 GM/DL 32.2-35.5 cdie=712) RED CELL DISTRIBUTION WIDTH (BEAKER) (test 18.5 % 11.7-14.4 ooyn=999) PLATELET COUNT (BEAKER) (test ybsf=857) 142 K/CU MM 150-450 MEAN PLATELET VOLUME (BEAKER) (test prsw=104) 9.7 fL 9.4-12.3 NUCLEATED RED BLOOD CELLS (BEAKER) (test 0 /100 WBC 0-0 bzvs=981) NEUTROPHILS RELATIVE PERCENT (BEAKER) (test 76 % lzda=976) LYMPHOCYTES RELATIVE PERCENT (BEAKER) (test 13 % zhew=419) MONOCYTES RELATIVE PERCENT (BEAKER) (test 11 % hwqn=350) EOSINOPHILS RELATIVE PERCENT (BEAKER) (test 0 % dxms=070) BASOPHILS RELATIVE PERCENT (BEAKER) (test 0 % ligu=483) NEUTROPHILS ABSOLUTE COUNT (BEAKER) (test 4.68 K/ L 1.56-6.13 wwnq=162) LYMPHOCYTES ABSOLUTE COUNT (BEAKER) (test 0.77 K/ L 1.18-3.74 vkyl=785) MONOCYTES ABSOLUTE COUNT (BEAKER) (test 0.67 K/ L 0.24-0.36 xosv=391) EOSINOPHILS ABSOLUTE COUNT (BEAKER) (test 0.01 K/ L 0.04-0.36 dexp=234) BASOPHILS ABSOLUTE COUNT (BEAKER) (test 0.01 K/ L 0.01-0.08 qsve=273) IMMATURE GRANULOCYTES-RELATIVE PERCENT (BEAKER) 1 % 0-1 (test qmql=0241) TROPONIN [id number] 01:17:00 Test Item Value Reference Range Comments TROPONIN I (BEAKER) (test swld=740) 1.40 ng/mL 0.00-0.03 Troponin I (TnI) levels must [...] failure, acidosis, acute neurological disease, and persistent tachyarrhythmia.HEMOGLOBIN AND [id number] 00: 52:00 Test Item Value Reference Range Comments HEMOGLOBIN (BEAKER) (test ybui=709) 12.1 GM/DL 11.2-15.7 HEMATOCRIT (BEAKER) (test qfli=381) 36.4 % 34.1-44.9 POCT-GLUCOSE [id number] 00:34:00 Test Item Value Reference Range Comments POC-GLUCOSE METER (BEAKER) 164 mg/dL 70-110 TESTED AT [address] (test rygw=3555) [facility] [id number] TROPONIN [id number] 22:08:00 Test Item Value Reference Range Comments TROPONIN I (BEAKER) (test yvxh=216) 1.39 ng/mL 0.00-0.03 Troponin I (TnI) levels must [...] failure, acidosis, acute neurological disease, and persistent tachyarrhythmia.[id number] 21:56:00 Test Item Value Reference Range Comments PHOSPHORUS (BEAKER) (test ichk=700) 2.1 mg/dL 2.3-4.7 [id number] 21:56:00 Test Item Value Reference Range Comments MAGNESIUM (BEAKER) (test wfvp=670) 2.1 mg/dL 1.6-2.6 BASIC METABOLIC [id number] 21:56:00 Test Item Value Reference Range Comments SODIUM (BEAKER) (test 139 meq/L 136-145 pqmk=724) POTASSIUM (BEAKER) (test 3.2 meq/L 3.5-5.1 tzts=838) CHLORIDE (BEAKER) (test 105 meq/L 98-107 baed=978) CO2 (BEAKER) (test 22 meq/L 22-29 sjlx=324) BLOOD UREA NITROGEN 4 mg/dL 7-21 (BEAKER) (test gave=777) CREATININE (BEAKER) (test 0.70 mg/dL 0.57-1.25 blwn=903) GLUCOSE RANDOM (BEAKER) 165 mg/dL 70-105 (test cikl=604) CALCIUM (BEAKER) (test 8.0 mg/dL 8.4-10.2 yexq=050) EGFR (BEAKER) (test 87 mL/min/1.73 sq m ESTIMATED GFR IS NOT nuuq=6758) ACCURATE CREATININE CLEARANCE IN PREDICTING GLOMERULAR FILTRATION RATE. ESTIMATED GFR IS NOT APPLICABLE FOR DIALYSIS PATIENTS. [id number] 21:56:00 Test Item Value Reference Range Comments PHOSPHORUS (BEAKER) (test aayx=453) 2.1 mg/dL 2.3-4.7 [id number] 21:56:00 Test Item Value Reference Range Comments MAGNESIUM (BEAKER) (test uujy=109) 2.1 mg/dL 1.6-2.6 BASIC METABOLIC [id number] 21:56:00 Test Item Value Reference Range Comments SODIUM (BEAKER) (test 139 meq/L 136-145 lirv=680) POTASSIUM (BEAKER) (test 3.2 meq/L 3.5-5.1 cwuo=426) CHLORIDE (BEAKER) (test 104 meq/L 98-107 qlsi=901) CO2 (BEAKER) (test 22 meq/L 22-29 dvks=748) BLOOD UREA NITROGEN 5 mg/dL 7-21 (BEAKER) (test dwei=728) CREATININE (BEAKER) (test 0.70 mg/dL 0.57-1.25 ecfw=641) GLUCOSE RANDOM (BEAKER) 165 mg/dL 70-105 (test ioxo=854) CALCIUM (BEAKER) (test 8.2 mg/dL 8.4-10.2 pszu=836) EGFR (BEAKER) (test 87 mL/min/1.73 sq m ESTIMATED GFR IS NOT bkgz=3354) ACCURATE CREATININE CLEARANCE IN PREDICTING GLOMERULAR FILTRATION RATE. ESTIMATED GFR IS NOT APPLICABLE FOR DIALYSIS PATIENTS. BLOOD GAS, [id number] 21:46:00 Test Item Value Reference Range Comments PH ARTERIAL (BEAKER) (test znkc=387) 7.37 7.35-7.45 PCO2 ARTERIAL (BEAKER) (test ymtr=769) 43 mmHg 35-45 PO2 ARTERIAL (BEAKER) (test mooc=563) 89 mmHg 80-90 O2 SATURATION ARTERIAL (BEAKER) (test yezh=718) 95.9 % 96.0-97.0 HCO3 ARTERIAL (BEAKER) (test tlkz=524) 24 mmol/L 21-29 BASE EXCESS ARTERIAL (BEAKER) (test lnyz=000) -0.8 mmol/L -2.0-3.0 PATIENT TEMPERATURE (BEAKER) (test xlbu=5742) 38.5 C FIO2 (BEAKER) (test lsfd=2334) 100.0 % CALCIUM, [id number] 21:46:00 Test Item Value Reference Range Comments CALCIUM IONIZED (BEAKER) (test qmpg=574) 1.10 mmol/L 1.12-1.27 PH, BLOOD (BEAKER) (test saxh=6141) 7.39 URINALYSIS W/ REFLEX URINE [id number] 20:34:00 Test Item Value Reference Range Comments COLOR (BEAKER) (test juev=243) Yellow CLARITY (BEAKER) (test qlgk=335) Clear SPECIFIC GRAVITY UA (BEAKER) (test bcgl=220) 1.009 1.001-1.035 PH UA (BEAKER) (test kznk=690) 6.5 5.0-8.0 PROTEIN UA (BEAKER) (test ijep=609) 30 mg/dL Negative GLUCOSE UA (BEAKER) (test detv=459) Negative Negative KETONES UA (BEAKER) (test vurs=732) 40 mg/dL Negative BILIRUBIN UA (BEAKER) (test mehe=187) Negative Negative BLOOD UA (BEAKER) (test qeab=004) Small Negative NITRITE UA (BEAKER) (test boda=358) Negative Negative LEUKOCYTE ESTERASE UA (BEAKER) (test huci=651) Negative Negative UROBILINOGEN UA (BEAKER) (test ovmq=365) 0.2 mg/dL 0.2-1.0 RBC UA (BEAKER) (test wpbo=075) 13 /HPF WBC UA (BEAKER) (test pczj=367) 3 /HPF SOURCE(BEAKER) (test dnkl=1387) TSH/FREE T4 IF [id number] 19:24:00 Test Item Value Reference Range Comments THYROID STIMULATING HORMONE (BEAKER) (test 0.79 uIU/mL 0.35-4.94 qvwm=183) BASIC METABOLIC [id number] 18:15:00 Test Item Value Reference Range Comments SODIUM (BEAKER) (test 137 meq/L 136-145 tabv=971) POTASSIUM (BEAKER) (test 3.0 meq/L 3.5-5.1 blyy=156) CHLORIDE (BEAKER) (test 102 meq/L 98-107 akrp=623) CO2 (BEAKER) (test 26 meq/L 22-29 befq=424) BLOOD UREA NITROGEN 4 mg/dL 7-21 (BEAKER) (test ouhx=663) CREATININE (BEAKER) (test 0.79 mg/dL 0.57-1.25 ycoq=108) GLUCOSE RANDOM (BEAKER) 173 mg/dL 70-105 (test wncj=090) CALCIUM (BEAKER) (test 8.3 mg/dL 8.4-10.2 rwlj=021) EGFR (BEAKER) (test 75 mL/min/1.73 sq m ESTIMATED GFR IS NOT veyt=8318) ACCURATE CREATININE CLEARANCE IN PREDICTING GLOMERULAR FILTRATION RATE. ESTIMATED GFR IS NOT APPLICABLE FOR DIALYSIS PATIENTS. LACTIC ACID, VENOUS, WHOLE [id number] 18:13:00 Test Item Value Reference Range Comments LACTATE BLOOD VENOUS (2) (BEAKER) (test 1.0 mmol/L 0.5-2.2 wzqi=3209) [id number] 18:08:00 Test Item Value Reference Range Comments AMMONIA (BEAKER) (test oimr=410) 33 mol/L 18-72 HEMOGLOBIN AND [id number] 18:02:00 Test Item Value Reference Range Comments HEMOGLOBIN (BEAKER) (test uslv=858) 12.2 GM/DL 11.2-15.7 HEMATOCRIT (BEAKER) (test uucw=832) 37.2 % 34.1-44.9 TROPONIN [id number] 17:28:00 Test Item Value Reference Range Comments TROPONIN I (BEAKER) (test gykq=978) 1.30 ng/mL 0.00-0.03 Troponin I (TnI) levels must [...] failure, acidosis, acute neurological disease, and persistent tachyarrhythmia.LACTIC ACID, VENOUS, WHOLE [id number] 17:15:00 Test Item Value Reference Range Comments LACTATE BLOOD VENOUS (2) (BEAKER) (test 1.1 mmol/L 0.5-2.2 zkbr=2835) POCT-GLUCOSE [id number] 16:55:00 Test Item Value Reference Range Comments POC-GLUCOSE METER (BEAKER) 186 mg/dL 70-110 TESTED AT [facility] [address] [facility] (test pqzj=6816) [facility] [address] KETONE, [id number] 15:19:00 Test Item Value Reference Range Comments KETONES, BLOOD (BEAKER) (test lsaw=2286) 1.0 mmol/L <0.4 [id number] 15:19:00 Test Item Value Reference Range Comments PHOSPHORUS (BEAKER) (test jkdg=834) < mg/dL 2.3-4.7 RAD, CHEST, 1 VIEW, NON [id number] 15:17:00Post-intubationReason for exam:-& gt;SHOTNESS OF BREATH, R/O PULM EDEMAShould this be performed at the bedside?-& gt;YesFINAL REPORT Chest dated 10/04/2018 COMPARISON: May 05, 2018 Clinical Information: SHOTNESS OF BREATH, R/O PULM EDEMA Comment: Heart is enlarged. Pulmonary vasculature is indistinct. Interstitial disease is seen bilaterally suggestive of vascular congestion. No pleural effusion or pneumothorax is seen. Impression: Cardiomegaly with vascular congestion. Signed: Maria R HarrisMDReport Verified Date/Time: 10/04/2018 15:17: 58 Reading Location: [address] Radiology Reading Room OSMOLALITY, [id number] 15:16:00 Test Item Value Reference Range Comments OSMOLALITY, SERUM (BEAKER) (test lbyh=665) 291 mOsm/kg 275-295 LIPID [id number] 15:15:00 Test Item Value Reference Range Comments TRIGLYCERIDES (BEAKER) (test cqzh=321) 262 mg/dL CHOLESTEROL (BEAKER) (test ddxv=576) 177 mg/dL HDL CHOLESTEROL (BEAKER) (test lvao=108) 39 mg/dL LDL CHOLESTEROL CALCULATED (BEAKER) (test 86 mg/dL zzvc=950) Triglyceride Reference Range: Low Risk <150 Borderline 150- 199 High Risk 200-499 Very High Risk >=500Cholesterol Reference Range: Low Risk <200 Borderline 200-239 High Risk > 240HDL Cholesterol Reference Range: Low Risk >=60 High Risk <40LDL Cholesterol Reference Range: Optimal <100 Near Optimal 100-129 Borderline 130-159 High 160-189 Very High >=[id number] 15:15:00 Test Item Value Reference Range Comments LIPASE (BEAKER) (test vlsa=920) 338 U/L 8-78 [id number] 15:13:00 Test Item Value Reference Range Comments MAGNESIUM (BEAKER) (test cfyy=363) 1.3 mg/dL 1.6-2.6 LACTIC ACID, VENOUS, WHOLE [id number] 15:10:00 Test Item Value Reference Range Comments LACTATE BLOOD VENOUS (2) (BEAKER) (test 1.2 mmol/L 0.5-2.2 szle=6518) CBC W/PLT COUNT & AUTO [id number] 15:06:00 Test Item Value Reference Range Comments WHITE BLOOD CELL COUNT (BEAKER) (test hets=204) 7.8 K/ L 3.5-10.5 RED BLOOD CELL COUNT (BEAKER) (test chfa=058) 3.85 M/ L 3.93-5.22 HEMOGLOBIN (BEAKER) (test lejh=879) 11.9 GM/DL 11.2-15.7 HEMATOCRIT (BEAKER) (test zcbu=332) 36.0 % 34.1-44.9 MEAN CORPUSCULAR VOLUME (BEAKER) (test fadb=881) 93.5 fL 79.4-94.8 MEAN CORPUSCULAR HEMOGLOBIN (BEAKER) (test 30.9 pg 25.6-32.2 ntxw=079) MEAN CORPUSCULAR HEMOGLOBIN CONC (BEAKER) (test 33.1 GM/DL 32.2-35.5 pgzd=375) RED CELL DISTRIBUTION WIDTH (BEAKER) (test 17.7 % 11.7-14.4 olsw=764) PLATELET COUNT (BEAKER) (test hwtv=159) 151 K/CU MM 150-450 MEAN PLATELET VOLUME (BEAKER) (test oren=159) 9.2 fL 9.4-12.3 NUCLEATED RED BLOOD CELLS (BEAKER) (test 0 /100 WBC 0-0 eygf=659) NEUTROPHILS RELATIVE PERCENT (BEAKER) (test 79 % buxg=641) LYMPHOCYTES RELATIVE PERCENT (BEAKER) (test 9 % rlmk=757) MONOCYTES RELATIVE PERCENT (BEAKER) (test 11 % grtc=036) EOSINOPHILS RELATIVE PERCENT (BEAKER) (test 0 % masq=929) BASOPHILS RELATIVE PERCENT (BEAKER) (test 0 % what=511) NEUTROPHILS ABSOLUTE COUNT (BEAKER) (test 6.22 K/ L 1.56-6.13 zadd=251) LYMPHOCYTES ABSOLUTE COUNT (BEAKER) (test 0.71 K/ L 1.18-3.74 wpdg=120) MONOCYTES ABSOLUTE COUNT (BEAKER) (test 0.83 K/ L 0.24-0.36 ngdh=795) EOSINOPHILS ABSOLUTE COUNT (BEAKER) (test 0.01 K/ L 0.04-0.36 mtoc=180) BASOPHILS ABSOLUTE COUNT (BEAKER) (test 0.01 K/ L 0.01-0.08 xsny=089) IMMATURE GRANULOCYTES-RELATIVE PERCENT (BEAKER) 1 % 0-1 (test magb=1391) OXYGEN SATURATION, [id number] 14:59:00 Test Item Value Reference Range Comments O2 SATURATION (MEASURED) (BEAKER) (test zfmy=6010) 69.6 % FEMORAL LINEBLOOD GAS, [id number] 14:51:00 Test Item Value Reference Range Comments PH ARTERIAL (BEAKER) (test mjfz=264) 7.39 7.35-7.45 PCO2 ARTERIAL (BEAKER) (test zqtu=366) 41 mmHg 35-45 PO2 ARTERIAL (BEAKER) (test sfod=127) 81 mmHg 80-90 O2 SATURATION ARTERIAL (BEAKER) (test qahh=263) 95.4 % 96.0-97.0 HCO3 ARTERIAL (BEAKER) (test tsjs=645) 24 mmol/L 21-29 BASE EXCESS ARTERIAL (BEAKER) (test dets=000) -0.5 mmol/L -2.0-3.0 PATIENT TEMPERATURE (BEAKER) (test rccf=2250) 38.0 C FIO2 (BEAKER) (test hroh=5039) 30.0 % TROPONIN [id number] 13:55:00 Test Item Value Reference Range Comments TROPONIN I (BEAKER) (test etdk=508) 1.11 ng/mL 0.00-0.03 Troponin I (TnI) levels must [...] failure, acidosis, acute neurological disease, and persistent tachyarrhythmia.B-TYPE NATRIURETIC FACTOR (BNP) 13:51:00 Test Item Value Reference Range Comments B-TYPE NATRIURETIC PEPTIDE (BEAKER) (test 1275 pg/mL 0-100 shhd=864) COMPREHENSIVE METABOLIC [id number] 13:45:00 Test Item Value Reference Range Comments TOTAL PROTEIN (BEAKER) 5.9 gm/dL 6.0-8.3 (test qqih=673) ALBUMIN (BEAKER) (test 3.5 g/dL 3.5-5.0 hlgj=1919) ALKALINE PHOSPHATASE 54 U/L 40-150 (BEAKER) (test nwzr=393) BILIRUBIN TOTAL (BEAKER) 1.2 mg/dL 0.2-1.2 (test oudc=654) SODIUM (BEAKER) (test 135 meq/L 136-145 sqrq=556) POTASSIUM (BEAKER) (test 2.8 meq/L 3.5-5.1 syiz=308) CHLORIDE (BEAKER) (test 100 meq/L 98-107 zknr=595) CO2 (BEAKER) (test 22 meq/L 22-29 smka=437) BLOOD UREA NITROGEN 4 mg/dL 7-21 (BEAKER) (test orsy=915) CREATININE (BEAKER) (test 0.91 mg/dL 0.57-1.25 bnip=586) GLUCOSE RANDOM (BEAKER) 279 mg/dL 70-105 (test rlhx=057) CALCIUM (BEAKER) (test 8.0 mg/dL 8.4-10.2 rabu=339) AST (SGOT) (BEAKER) (test 57 U/L 5-34 gmak=761) ALT (SGPT) (BEAKER) (test 45 U/L 6-55 dqhz=198) EGFR (BEAKER) (test 64 mL/min/1.73 sq m ESTIMATED GFR IS NOT dhxt=2173) ACCURATE CREATININE CLEARANCE IN PREDICTING GLOMERULAR FILTRATION RATE. ESTIMATED GFR IS NOT APPLICABLE FOR DIALYSIS PATIENTS. LACTIC ACID, VENOUS, WHOLE [id number] 13:41:00 Test Item Value Reference Range Comments LACTATE BLOOD VENOUS (2) (BEAKER) (test 1.3 mmol/L 0.5-2.2 zuua=5152) [id number] 13:39:00 Test Item Value Reference Range Comments PARTIAL THROMBOPLASTIN TIME (BEAKER) (test 30.3 seconds 22.5-36.0 shro=443) [id number] 13:39:00 Test Item Value Reference Range Comments FIBRINOGEN LEVEL (BEAKER) (test njai=826) 284 mg/dl 225-434 PROTHROMBIN [id number] 13:38:00 Test Item Value Reference Range Comments PROTIME (BEAKER) (test usnb=101) 13.4 seconds 11.7-14.7 INR (BEAKER) (test hnix=363) 1.0 <=5.9 RECOMMENDED COUMADIN/WARFARIN INR THERAPY RANGESSTANDARD DOSE: 2.0 - 3.0 Includes: PROPHYLAXIS forvenous thrombosis, systemic embolization; TREATMENT for venous thrombosis and/or pulmonary embolus.HIGH RISK: Target INR is 2.5-3.5 for patients with mechanical heart valves.POCT-GLUCOSE [id number] 18:40:00 Test Item Value Reference Range Comments POC-GLUCOSE METER (BEAKER) 148 mg/dL 70-110 TESTED AT [address] (test wndn=4117) [facility] [address] POCT-GLUCOSE [id number] 07:43:00 Test Item Value Reference Range Comments POC-GLUCOSE METER (BEAKER) 112 mg/dL 70-110 TESTED AT [address] (test vbxg=9089) [place] [id number] 07:13:00 Test Item Value Reference Range Comments MAGNESIUM (BEAKER) (test acri=583) 1.4 mg/dL 1.6-2.6 BASIC METABOLIC [id number] 07:13:00 Test Item Value Reference Range Comments SODIUM (BEAKER) (test 141 meq/L 136-145 jcpd=489) POTASSIUM (BEAKER) (test 4.9 meq/L 3.5-5.1 mfsd=136) CHLORIDE (BEAKER) (test 102 meq/L 98-107 ruto=570) CO2 (BEAKER) (test 32 meq/L 22-29 qlps=995) BLOOD UREA NITROGEN 12 mg/dL 7-21 (BEAKER) (test zckv=241) CREATININE (BEAKER) (test 0.73 mg/dL 0.57-1.25 tkyc=754) GLUCOSE RANDOM (BEAKER) 118 mg/dL 70-105 (test qfmq=124) CALCIUM (BEAKER) (test 9.0 mg/dL 8.4-10.2 dwgi=550) EGFR (BEAKER) (test 83 mL/min/1.73 sq m ESTIMATED GFR IS NOT nuez=3201) ACCURATE CREATININE CLEARANCE IN PREDICTING GLOMERULAR FILTRATION RATE. ESTIMATED GFR IS NOT APPLICABLE FOR DIALYSIS PATIENTS. POCT-GLUCOSE [id number] 22:09:00 Test Item Value Reference Range Comments POC-GLUCOSE METER (BEAKER) 161 mg/dL 70-110 TESTED AT [address] (test ezsy=5361) [place] [address] POCT-GLUCOSE [id number] 17:46:00 Test Item Value Reference Range Comments POC-GLUCOSE METER (BEAKER) 148 mg/dL 70-110 TESTED AT [address] (test qvkh=0428) [place] [address] POCT-GLUCOSE [id number] 12:00:00 Test Item Value Reference Range Comments POC-GLUCOSE METER (BEAKER) 137 mg/dL 70-110 TESTED AT [address] (test adgm=5918) [place] [address] POCT-GLUCOSE [id number] 07:55:00 Test Item Value Reference Range Comments POC-GLUCOSE METER (BEAKER) 141 mg/dL 70-110 TESTED AT [facility] [address] [facility] (test potd=3798) [facility] [address] [id number] 05:30:00 Test Item Value Reference Range Comments MAGNESIUM (BEAKER) (test upea=968) 1.4 mg/dL 1.6-2.6 BASIC METABOLIC [id number] 05:30:00 Test Item Value Reference Range Comments SODIUM (BEAKER) (test 137 meq/L 136-145 zwxp=265) POTASSIUM (BEAKER) (test 4.9 meq/L 3.5-5.1 potk=821) CHLORIDE (BEAKER) (test 100 meq/L 98-107 rzlt=051) CO2 (BEAKER) (test 30 meq/L 22-29 nyfs=249) BLOOD UREA NITROGEN 16 mg/dL 7-21 (BEAKER) (test eysj=034) CREATININE (BEAKER) (test 0.68 mg/dL 0.57-1.25 trrv=171) GLUCOSE RANDOM (BEAKER) 104 mg/dL 70-105 (test nwtp=531) CALCIUM (BEAKER) (test 8.8 mg/dL 8.4-10.2 yupj=856) EGFR (BEAKER) (test 90 mL/min/1.73 sq m ESTIMATED GFR IS NOT pgqh=8903) ACCURATE CREATININE CLEARANCE IN PREDICTING GLOMERULAR FILTRATION RATE. ESTIMATED GFR IS NOT APPLICABLE FOR DIALYSIS PATIENTS. HEMOGLOBIN AND [id number] 05:07:00 Test Item Value Reference Range Comments HEMOGLOBIN (BEAKER) (test whjb=617) 8.8 GM/DL 11.2-15.7 HEMATOCRIT (BEAKER) (test pzkz=880) 28.4 % 34.1-44.9 BLOOD [id number] 00:00:00 Test Item Value Reference Range Comments CULTURE (BEAKER) (test zoav=7049) No growth in 5 days BLOOD [id number] 00:00:00 Test Item Value Reference Range Comments CULTURE (BEAKER) (test edqi=1770) No growth in 5 days POCT-GLUCOSE [id number] 22:59:00 Test Item Value Reference Range Comments POC-GLUCOSE METER (BEAKER) 141 mg/dL 70-110 TESTED AT [address] (test mbkw=1342) [facility] [address] HEMOGLOBIN AND [id number] 16:50:00 Test Item Value Reference Range Comments HEMOGLOBIN (BEAKER) (test zfdt=500) 9.6 GM/DL 11.2-15.7 HEMATOCRIT (BEAKER) (test icdw=331) 30.8 % 34.1-44.9 POCT-GLUCOSE [id number] 13:15:00 Test Item Value Reference Range Comments POC-GLUCOSE METER (BEAKER) 144 mg/dL 70-110 TESTED AT [address] (test tcix=6956) [place] [address] POCT-GLUCOSE [id number] 08:27:00 Test Item Value Reference Range Comments POC-GLUCOSE METER (BEAKER) 125 mg/dL 70-110 TESTED AT [address] (test qvrw=8562) [place] [address] [id number] 07:54:00 Test Item Value Reference Range Comments MAGNESIUM (BEAKER) (test zpgb=896) 1.0 mg/dL 1.6-2.6 BASIC METABOLIC [id number] 07:25:00 Test Item Value Reference Range Comments SODIUM (BEAKER) (test 138 meq/L 136-145 ppyc=947) POTASSIUM (BEAKER) (test 4.1 meq/L 3.5-5.1 qybb=474) CHLORIDE (BEAKER) (test 102 meq/L 98-107 sxlt=700) CO2 (BEAKER) (test 29 meq/L 22-29 scja=498) BLOOD UREA NITROGEN 23 mg/dL 7-21 (BEAKER) (test bevr=836) CREATININE (BEAKER) (test 0.79 mg/dL 0.57-1.25 duhe=674) GLUCOSE RANDOM (BEAKER) 122 mg/dL 70-105 (test gbdp=871) CALCIUM (BEAKER) (test 8.6 mg/dL 8.4-10.2 yqzm=001) EGFR (BEAKER) (test 76 mL/min/1.73 sq m ESTIMATED GFR IS NOT xpwo=4785) ACCURATE CREATININE CLEARANCE IN PREDICTING GLOMERULAR FILTRATION RATE. ESTIMATED GFR IS NOT APPLICABLE FOR DIALYSIS PATIENTS. HEMOGLOBIN AND [id number] 07:15:00 Test Item Value Reference Range Comments HEMOGLOBIN (BEAKER) (test yflz=160) 8.5 GM/DL 11.2-15.7 HEMATOCRIT (BEAKER) (test mnwq=633) 27.0 % 34.1-44.9 CBC W/PLT COUNT & AUTO [id number] 07:15:00 Test Item Value Reference Range Comments WHITE BLOOD CELL COUNT (BEAKER) (test tjnt=000) 6.5 K/ L 3.5-10.5 RED BLOOD CELL COUNT (BEAKER) (test slgc=513) 2.63 M/ L 3.93-5.22 HEMOGLOBIN (BEAKER) (test ophw=336) 8.5 GM/DL 11.2-15.7 HEMATOCRIT (BEAKER) (test zddh=956) 27.0 % 34.1-44.9 MEAN CORPUSCULAR VOLUME (BEAKER) (test qnlc=559) 102.7 fL 79.4-94.8 MEAN CORPUSCULAR HEMOGLOBIN (BEAKER) (test 32.3 pg 25.6-32.2 nppx=733) MEAN CORPUSCULAR HEMOGLOBIN CONC (BEAKER) (test 31.5 GM/DL 32.2-35.5 dwdw=542) RED CELL DISTRIBUTION WIDTH (BEAKER) (test 16.9 % 11.7-14.4 skri=152) PLATELET COUNT (BEAKER) (test ovin=848) 428 K/CU MM 150-450 MEAN PLATELET VOLUME (BEAKER) (test ozjf=425) 9.1 fL 9.4-12.3 NUCLEATED RED BLOOD CELLS (BEAKER) (test 0 /100 WBC 0-0 nfwe=238) NEUTROPHILS RELATIVE PERCENT (BEAKER) (test 72 % joxm=352) LYMPHOCYTES RELATIVE PERCENT (BEAKER) (test 16 % vgiz=388) MONOCYTES RELATIVE PERCENT (BEAKER) (test 10 % aram=616) EOSINOPHILS RELATIVE PERCENT (BEAKER) (test 1 % xyrt=975) BASOPHILS RELATIVE PERCENT (BEAKER) (test 0 % elsf=370) NEUTROPHILS ABSOLUTE COUNT (BEAKER) (test 4.63 K/ L 1.56-6.13 mzaz=293) LYMPHOCYTES ABSOLUTE COUNT (BEAKER) (test 1.01 K/ L 1.18-3.74 eqkx=856) MONOCYTES ABSOLUTE COUNT (BEAKER) (test 0.64 K/ L 0.24-0.36 jmqr=631) EOSINOPHILS ABSOLUTE COUNT (BEAKER) (test 0.04 K/ L 0.04-0.36 okey=684) BASOPHILS ABSOLUTE COUNT (BEAKER) (test 0.02 K/ L 0.01-0.08 bdtt=594) IMMATURE GRANULOCYTES-RELATIVE PERCENT (BEAKER) 2 % 0-1 (test apnp=9707) POCT-GLUCOSE [id number] 00:54:00 Test Item Value Reference Range Comments POC-GLUCOSE METER (BEAKER) 165 mg/dL 70-110 TESTED AT [address] (test srvv=5196) [facility] [address] POCT-GLUCOSE [id number] 18:13:00 Test Item Value Reference Range Comments POC-GLUCOSE METER (BEAKER) 255 mg/dL 70-110 TESTED AT [address] (test mjbx=8547) [place] [address] HEMOGLOBIN AND [id number] 17:10:00 Test Item Value Reference Range Comments HEMOGLOBIN (BEAKER) (test digk=385) 9.0 GM/DL 11.2-15.7 HEMATOCRIT (BEAKER) (test cqng=535) 28.1 % 34.1-44.9 POCT-GLUCOSE [id number] 11:29:00 Test Item Value Reference Range Comments POC-GLUCOSE METER (BEAKER) 204 mg/dL 70-110 TESTED AT [address] (test gmmo=7214) [place] [id number] CBC W/PLT COUNT & AUTO [id number] 10:04:00 Test Item Value Reference Range Comments WHITE BLOOD CELL COUNT (BEAKER) (test esda=132) 7.5 K/ L 3.5-10.5 RED BLOOD CELL COUNT (BEAKER) (test cars=450) 2.71 M/ L 3.93-5.22 HEMOGLOBIN (BEAKER) (test eyru=908) 9.0 GM/DL 11.2-15.7 HEMATOCRIT (BEAKER) (test iaxd=095) 28.4 % 34.1-44.9 MEAN CORPUSCULAR VOLUME (BEAKER) (test rhar=032) 104.8 fL 79.4-94.8 MEAN CORPUSCULAR HEMOGLOBIN (BEAKER) (test 33.2 pg 25.6-32.2 tnqq=906) MEAN CORPUSCULAR HEMOGLOBIN CONC (BEAKER) (test 31.7 GM/DL 32.2-35.5 dfcb=878) RED CELL DISTRIBUTION WIDTH (BEAKER) (test 17.5 % 11.7-14.4 qipx=661) PLATELET COUNT (BEAKER) (test vjet=497) 398 K/CU MM 150-450 MEAN PLATELET VOLUME (BEAKER) (test refk=999) 9.4 fL 9.4-12.3 NUCLEATED RED BLOOD CELLS (BEAKER) (test 0 /100 WBC 0-0 gehv=851) NEUTROPHILS RELATIVE PERCENT (BEAKER) (test 73 % qijq=912) LYMPHOCYTES RELATIVE PERCENT (BEAKER) (test 13 % pryj=541) MONOCYTES RELATIVE PERCENT (BEAKER) (test 10 % mrhu=561) EOSINOPHILS RELATIVE PERCENT (BEAKER) (test 1 % rhwt=647) BASOPHILS RELATIVE PERCENT (BEAKER) (test 0 % wwna=721) NEUTROPHILS ABSOLUTE COUNT (BEAKER) (test 5.47 K/ L 1.56-6.13 kywa=270) LYMPHOCYTES ABSOLUTE COUNT (BEAKER) (test 0.95 K/ L 1.18-3.74 lftg=925) MONOCYTES ABSOLUTE COUNT (BEAKER) (test 0.77 K/ L 0.24-0.36 quws=739) EOSINOPHILS ABSOLUTE COUNT (BEAKER) (test 0.04 K/ L 0.04-0.36 dvzk=511) BASOPHILS ABSOLUTE COUNT (BEAKER) (test 0.03 K/ L 0.01-0.08 jyab=380) IMMATURE GRANULOCYTES-RELATIVE PERCENT (BEAKER) 3 % 0-1 (test yxjn=8220) POCT-GLUCOSE [id number] 08:20:00 Test Item Value Reference Range Comments POC-GLUCOSE METER (BEAKER) 128 mg/dL 70-110 TESTED AT [facility] [address] [facility] (test rzdj=4628) [facility] [address] [id number] 05:08:00 Test Item Value Reference Range Comments MAGNESIUM (BEAKER) (test 1.3 mg/dL 1.6-2.6 Specimen slightly hemolyzed wszo=264) [id number] 05:08:00 Test Item Value Reference Range Comments PHOSPHORUS (BEAKER) (test 2.6 mg/dL 2.3-4.7 Specimen slightly hemolyzed axir=002) BASIC METABOLIC [id number] 05:08:00 Test Item Value Reference Range Comments SODIUM (BEAKER) (test 138 meq/L 136-145 icgf=443) POTASSIUM (BEAKER) (test 4.3 meq/L 3.5-5.1 Specimen slightly kxun=340) hemolyzed CHLORIDE (BEAKER) (test 103 meq/L 98-107 fsvi=427) CO2 (BEAKER) (test 25 meq/L 22-29 zncs=470) BLOOD UREA NITROGEN 35 mg/dL 7-21 (BEAKER) (test ekrd=904) CREATININE (BEAKER) (test 0.95 mg/dL 0.57-1.25 Specimen slightly xgoz=382) hemolyzed GLUCOSE RANDOM (BEAKER) 107 mg/dL 70-105 (test lqvm=927) CALCIUM (BEAKER) (test 8.8 mg/dL 8.4-10.2 fgmc=874) EGFR (BEAKER) (test 61 mL/min/1.73 sq m ESTIMATED GFR IS NOT rdjf=5830) ACCURATE CREATININE CLEARANCE IN PREDICTING GLOMERULAR FILTRATION RATE. ESTIMATED GFR IS NOT APPLICABLE FOR DIALYSIS PATIENTS. HEMOGLOBIN AND [id number] 04:46:00 Test Item Value Reference Range Comments HEMOGLOBIN (BEAKER) (test mkci=813) 8.7 GM/DL 11.2-15.7 HEMATOCRIT (BEAKER) (test saqz=721) 27.8 % 34.1-44.9 POCT-GLUCOSE [id number] 00:51:00 Test Item Value Reference Range Comments POC-GLUCOSE METER (BEAKER) 142 mg/dL 70-110 TESTED AT [address] (test pjyc=0178) [place] [address] HEMOGLOBIN AND [id number] 20:58:00 Test Item Value Reference Range Comments HEMOGLOBIN (BEAKER) (test rjoc=183) 9.6 GM/DL 11.2-15.7 HEMATOCRIT (BEAKER) (test dprb=260) 29.6 % 34.1-44.9 POCT-GLUCOSE [id number] 18:36:00 Test Item Value Reference Range Comments POC-GLUCOSE METER (BEAKER) 228 mg/dL 70-110 TESTED AT [address] (test loux=4003) [place] [address] SPUTUM CULTURE + GRAM [id number] 15:57:00 Test Item Value Reference Range Comments CULTURE (BEAKER) (test 2+ Normal respiratory cosme wyco=5657) present GRAM STAIN RESULT (BEAKER) 4+ WBCs (test teof=7083) GRAM STAIN RESULT (BEAKER) No epithelial cells (test cgdj=12258) GRAM STAIN RESULT (BEAKER) 1+ yeast (test rpod=30742) HEMOGLOBIN AND [id number] 12:05:00 Test Item Value Reference Range Comments HEMOGLOBIN (BEAKER) (test qlnh=277) 8.5 GM/DL 11.2-15.7 HEMATOCRIT (BEAKER) (test xkts=938) 25.9 % 34.1-44.9 POCT-GLUCOSE [id number] 11:40:00 Test Item Value Reference Range Comments POC-GLUCOSE METER (BEAKER) 180 mg/dL 70-110 TESTED AT [facility] [address] [place] [address] (test krnt=8680) [place] [id number] POCT-GLUCOSE [id number] 06:14:00 Test Item Value Reference Range Comments POC-GLUCOSE METER (BEAKER) 143 mg/dL 70-110 TESTED AT [address] (test wvjb=6209) [place] [id number] BASIC METABOLIC [id number] 05:05:00 Test Item Value Reference Range Comments SODIUM (BEAKER) (test 136 meq/L 136-145 njrq=050) POTASSIUM (BEAKER) (test 4.0 meq/L 3.5-5.1 itcn=448) CHLORIDE (BEAKER) (test 101 meq/L 98-107 ejaf=419) CO2 (BEAKER) (test 26 meq/L 22-29 liyt=256) BLOOD UREA NITROGEN 44 mg/dL 7-21 (BEAKER) (test ansj=521) CREATININE (BEAKER) (test 1.82 mg/dL 0.57-1.25 qnzj=902) GLUCOSE RANDOM (BEAKER) 129 mg/dL 70-105 (test pbgx=803) CALCIUM (BEAKER) (test 8.5 mg/dL 8.4-10.2 rsur=006) EGFR (BEAKER) (test 29 mL/min/1.73 sq m ESTIMATED GFR IS NOT dcrc=6305) ACCURATE CREATININE CLEARANCE IN PREDICTING GLOMERULAR FILTRATION RATE. ESTIMATED GFR IS NOT APPLICABLE FOR DIALYSIS PATIENTS. VANCOMYCIN LEVEL, [id number] 05:04:00 Test Item Value Reference Range Comments VANCOMYCIN RANDOM (BEAKER) (test joci=517) 23.1 ug/mL Reference Range: No [id number] 05:02:00 Test Item Value Reference Range Comments PHOSPHORUS (BEAKER) (test ewrw=575) 3.9 mg/dL 2.3-4.7 [id number] 05:02:00 Test Item Value Reference Range Comments MAGNESIUM (BEAKER) (test wbhs=349) 1.4 mg/dL 1.6-2.6 HEMOGLOBIN AND [id number] 04:36:00 Test Item Value Reference Range Comments HEMOGLOBIN (BEAKER) (test leve=612) 7.5 GM/DL 11.2-15.7 HEMATOCRIT (BEAKER) (test mfpm=229) 22.8 % 34.1-44.9 POCT-GLUCOSE [id number] 00:02:00 Test Item Value Reference Range Comments POC-GLUCOSE METER (BEAKER) 180 mg/dL 70-110 TESTED AT [address] (test wyls=7868) [place] [address] HEMOGLOBIN AND [id number] 20:48:00 Test Item Value Reference Range Comments HEMOGLOBIN (BEAKER) (test mgkf=416) 8.3 GM/DL 11.2-15.7 HEMATOCRIT (BEAKER) (test nbgs=449) 25.0 % 34.1-44.9 POCT-GLUCOSE [id number] 18:14:00 Test Item Value Reference Range Comments POC-GLUCOSE METER (BEAKER) 131 mg/dL 70-110 TESTED AT [address] (test kvfe=7669) [place] [address] VANCOMYCIN LEVEL, [id number] 16:48:00 Test Item Value Reference Range Comments VANCOMYCIN RANDOM (BEAKER) (test bypw=760) 28.3 ug/mL Reference Range: No NormalsPOCT-GLUCOSE [id number] 12:43:00 Test Item Value Reference Range Comments POC-GLUCOSE METER (BEAKER) 157 mg/dL 70-110 TESTED AT [address] (test utgd=7298) [place] [id number] HEMOGLOBIN AND [id number] 12:20:00 Test Item Value Reference Range Comments HEMOGLOBIN (BEAKER) (test fgns=710) 8.3 GM/DL 11.2-15.7 HEMATOCRIT (BEAKER) (test nykz=135) 25.4 % 34.1-44.9 BASIC METABOLIC [id number] 05:37:00 Test Item Value Reference Range Comments SODIUM (BEAKER) (test 130 meq/L 136-145 hbmy=472) POTASSIUM (BEAKER) (test 4.6 meq/L 3.5-5.1 vjgk=060) CHLORIDE (BEAKER) (test 98 meq/L 98-107 lsab=015) CO2 (BEAKER) (test 22 meq/L 22-29 tepb=632) BLOOD UREA NITROGEN 44 mg/dL 7-21 (BEAKER) (test hkwd=326) CREATININE (BEAKER) (test 2.84 mg/dL 0.57-1.25 zppm=975) GLUCOSE RANDOM (BEAKER) 156 mg/dL 70-105 (test iavb=088) CALCIUM (BEAKER) (test 8.4 mg/dL 8.4-10.2 erjh=565) EGFR (BEAKER) (test 17 mL/min/1.73 sq m ESTIMATED GFR IS NOT jssa=2325) ACCURATE CREATININE CLEARANCE IN PREDICTING GLOMERULAR FILTRATION RATE. ESTIMATED GFR IS NOT APPLICABLE FOR DIALYSIS PATIENTS. CBC W/PLT COUNT & AUTO [id number] 04:41:00 Test Item Value Reference Range Comments WHITE BLOOD CELL COUNT (BEAKER) (test iayd=085) 11.0 K/ L 3.5-10.5 RED BLOOD CELL COUNT (BEAKER) (test uyoh=121) 1.87 M/ L 3.93-5.22 HEMOGLOBIN (BEAKER) (test upfn=794) 6.3 GM/DL 11.2-15.7 HEMATOCRIT (BEAKER) (test jyaj=955) 19.9 % 34.1-44.9 MEAN CORPUSCULAR VOLUME (BEAKER) (test krsj=587) 106.4 fL 79.4-94.8 MEAN CORPUSCULAR HEMOGLOBIN (BEAKER) (test 33.7 pg 25.6-32.2 nvdu=229) MEAN CORPUSCULAR HEMOGLOBIN CONC (BEAKER) (test 31.7 GM/DL 32.2-35.5 jojn=766) RED CELL DISTRIBUTION WIDTH (BEAKER) (test 15.0 % 11.7-14.4 tlii=275) PLATELET COUNT (BEAKER) (test zgtq=316) 254 K/CU MM 150-450 MEAN PLATELET VOLUME (BEAKER) (test qzse=759) 9.5 fL 9.4-12.3 NUCLEATED RED BLOOD CELLS (BEAKER) (test 0 /100 WBC 0-0 zqyf=765) NEUTROPHILS RELATIVE PERCENT (BEAKER) (test 91 % llie=492) LYMPHOCYTES RELATIVE PERCENT (BEAKER) (test 4 % ylfx=631) MONOCYTES RELATIVE PERCENT (BEAKER) (test 3 % kxxl=959) EOSINOPHILS RELATIVE PERCENT (BEAKER) (test 0 % rerk=141) BASOPHILS RELATIVE PERCENT (BEAKER) (test 0 % hvqa=003) NEUTROPHILS ABSOLUTE COUNT (BEAKER) (test 10.02 K/ L 1.56-6.13 xelt=350) LYMPHOCYTES ABSOLUTE COUNT (BEAKER) (test 0.44 K/ L 1.18-3.74 dzjl=668) MONOCYTES ABSOLUTE COUNT (BEAKER) (test 0.27 K/ L 0.24-0.36 sxgy=826) EOSINOPHILS ABSOLUTE COUNT (BEAKER) (test 0.00 K/ L 0.04-0.36 wlzf=646) BASOPHILS ABSOLUTE COUNT (BEAKER) (test 0.01 K/ L 0.01-0.08 vbnr=846) IMMATURE GRANULOCYTES-RELATIVE PERCENT (BEAKER) 2 % 0-1 (test jbjj=3545) POCT-GLUCOSE [id number] 00:06:00 Test Item Value Reference Range Comments POC-GLUCOSE METER (BEAKER) 174 mg/dL 70-110 TESTED AT [place] [id number] [facility] (test wxnp=2767) [place] [id number] POCT-GLUCOSE [id number] 17:26:00 Test Item Value Reference Range Comments POC-GLUCOSE METER (BEAKER) 179 mg/dL 70-110 TESTED AT [address] (test yayf=6574) [place] [id number] [place], [id number] 17:19:00FINAL REPORT CLINICAL HISTORY: Recent pancreatitis, shock [...] MDReport Verified Date/Time: 05/05 17:19:54 Reading Location: [address] Reading Room TROPONIN [id number] 16:31:00 Test Item Value Reference Range Comments TROPONIN I (BEAKER) (test njmj=738) < ng/mL 0.00-0.03 Troponin I (TnI) levels [...] acidosis, acute neurological disease, and persistent tachyarrhythmia.POCT-GLUCOSE [id number] 12:29:00 Test Item Value Reference Range Comments POC-GLUCOSE METER (BEAKER) 139 mg/dL 70-110 TESTED AT [facility] [address] [facility] (test drba=0099) [facility] [address] URINALYSIS W/ REFLEX URINE [id number] 09:51:00 Test Item Value Reference Range Comments COLOR (BEAKER) (test fysj=943) Red CLARITY (BEAKER) (test cydz=849) Hazy SPECIFIC GRAVITY UA (BEAKER) (test npcd=017) 1.018 1.001-1.035 PH UA (BEAKER) (test xmfj=950) 6.5 5.0-8.0 PROTEIN UA (BEAKER) (test pmfv=226) 100 mg/dL Negative GLUCOSE UA (BEAKER) (test vqog=842) Negative Negative KETONES UA (BEAKER) (test cysy=757) Negative Negative BILIRUBIN UA (BEAKER) (test vumu=557) Negative Negative BLOOD UA (BEAKER) (test hvok=423) Small Negative NITRITE UA (BEAKER) (test crae=143) Positive Negative LEUKOCYTE ESTERASE UA (BEAKER) (test jebu=738) Moderate Negative UROBILINOGEN UA (BEAKER) (test dmtt=866) 0.2 mg/dL 0.2-1.0 RBC UA (BEAKER) (test tomd=086) 2 /HPF WBC UA (BEAKER) (test hamw=084) 38 /HPF BACTERIA (BEAKER) (test voql=660) Occasional HYALINE CASTS (BEAKER) (test foum=896) 3 /LPF YEAST (BEAKER) (test rfgs=0476) Moderate SOURCE(BEAKER) (test hsil=7719) SODIUM, RANDOM [id number] 09:46:00 Test Item Value Reference Range Comments SODIUM URINE (BEAKER) (test uidx=595) 23 meq/L Reference Range: No NormalsCREATININE, RANDOM [id number] 09:32:00 Test Item Value Reference Range Comments CREATININE URINE (BEAKER) (test euml=514) 67.0 mg/dL Reference Range: No NormalsUREA NITROGEN, RANDOM [id number] 09:32:00 Test Item Value Reference Range Comments UREA NITROGEN URINE (BEAKER) (test eoeh=655) 170 mg/dL Reference Range: No NormalsLACTIC ACID, ARTERIAL, WHOLE [id number] 09:16:00 Test Item Value Reference Range Comments LACTATE BLOOD ARTERIAL (2) (BEAKER) (test 0.8 mmol/L 0.5-2.2 cgpo=4383) Effective 12/15/2015: Units/Reference Range ChangeNew: 0.5-2.2 mmol/L Previous: 5 -20 mg/dLHEMATOCRIT-STAT [id number] 09:02:00 Test Item Value Reference Range Comments HEMATOCRIT (BEAKER) (test kvsx=780) 23.0 % 36.0-45.0 BLOOD GAS, [id number] 09:02:00 Test Item Value Reference Range Comments PH ARTERIAL (BEAKER) (test iasw=554) 7.34 7.35-7.45 PCO2 ARTERIAL (BEAKER) (test zmis=011) 50 mmHg 35-45 PO2 ARTERIAL (BEAKER) (test przr=759) 97 mmHg 80-90 O2 SATURATION ARTERIAL (BEAKER) (test eeho=484) 96.8 % 96.0-97.0 HCO3 ARTERIAL (BEAKER) (test omcq=409) 26 mmol/L 21-29 BASE EXCESS ARTERIAL (BEAKER) (test uxia=238) -0.1 mmol/L -2.0-3.0 PATIENT TEMPERATURE (BEAKER) (test ipjc=9971) 37.5 C FIO2 (BEAKER) (test oxme=4777) 30.0 % HEMOGLOBIN-STAT [id number] 09:01:00 Test Item Value Reference Range Comments HEMOGLOBIN (BEAKER) (test siot=157) 7.7 g/dL 12.0-15.0 TROPONIN [id number] 08:24:00 Test Item Value Reference Range Comments TROPONIN I (BEAKER) (test jtel=709) < ng/mL 0.00-0.03 Troponin I (TnI) levels [...] acute neurological disease, and persistent tachyarrhythmia.BASIC METABOLIC [id number] 08:22:00 Test Item Value Reference Range Comments SODIUM (BEAKER) (test 128 meq/L 136-145 quyy=334) POTASSIUM (BEAKER) (test 4.5 meq/L 3.5-5.1 aqca=849) CHLORIDE (BEAKER) (test 96 meq/L 98-107 bgpk=600) CO2 (BEAKER) (test 22 meq/L 22-29 cxhe=578) BLOOD UREA NITROGEN 44 mg/dL 7-21 (BEAKER) (test oyjx=350) CREATININE (BEAKER) (test 3.93 mg/dL 0.57-1.25 qlfs=275) GLUCOSE RANDOM (BEAKER) 118 mg/dL 70-105 (test jsds=421) CALCIUM (BEAKER) (test 8.8 mg/dL 8.4-10.2 wuda=169) EGFR (BEAKER) (test 12 mL/min/1.73 sq m ESTIMATED GFR IS NOT mvcg=9905) ACCURATE CREATININE CLEARANCE IN PREDICTING GLOMERULAR FILTRATION RATE. ESTIMATED GFR IS NOT APPLICABLE FOR DIALYSIS PATIENTS. BLOOD GAS, [id number] 07:56:00 Test Item Value Reference Range Comments PH ARTERIAL (BEAKER) (test snpp=003) 7.40 7.35-7.45 PCO2 ARTERIAL (BEAKER) (test kfyh=694) 41 mmHg 35-45 PO2 ARTERIAL (BEAKER) (test qwsu=951) 120 mmHg 80-90 O2 SATURATION ARTERIAL (BEAKER) (test egps=371) 98.3 % 96.0-97.0 HCO3 ARTERIAL (BEAKER) (test sqgt=034) 25 mmol/L 21-29 BASE EXCESS ARTERIAL (BEAKER) (test uevd=292) -0.1 mmol/L -2.0-3.0 PATIENT TEMPERATURE (BEAKER) (test zfod=3886) 37.5 C FIO2 (BEAKER) (test xbbs=6931) 30.0 % VANCOMYCIN LEVEL, [id number] 05:44:00 Test Item Value Reference Range Comments VANCOMYCIN RANDOM (BEAKER) (test xhkn=332) 16.7 ug/mL Reference Range: No NormalsLACTIC ACID, VENOUS, WHOLE [id number] 05:22:00 Test Item Value Reference Range Comments LACTATE BLOOD VENOUS (2) (BEAKER) (test 0.7 mmol/L 0.5-2.2 cllv=4875) Effective 12/15/2015: Units/Reference Range ChangeNew: 0.5-2.2 mmol/L Previous: 5 -20 mg/dLBLOOD GAS, [id number] 05:03:00 Test Item Value Reference Range Comments PH ARTERIAL (BEAKER) (test ivsj=611) 7.27 7.35-7.45 PCO2 ARTERIAL (BEAKER) (test mlmz=556) 57 mmHg 35-45 PO2 ARTERIAL (BEAKER) (test jdgd=544) 71 mmHg 80-90 O2 SATURATION ARTERIAL (BEAKER) (test qsau=223) 91.0 % 96.0-97.0 HCO3 ARTERIAL (BEAKER) (test ddqn=625) 25 mmol/L 21-29 BASE EXCESS ARTERIAL (BEAKER) (test zmku=616) -1.9 mmol/L -2.0-3.0 PATIENT TEMPERATURE (BEAKER) (test lule=4492) 37.5 C FIO2 (BEAKER) (test ribd=7965) 30.0 % TROPONIN [id number] 05:00:00 Test Item Value Reference Range Comments TROPONIN I (BEAKER) (test lpaa=392) 0.01 ng/mL 0.00-0.03 Troponin I (TnI) levels [...] failure, acidosis, acute neurological disease, and persistent tachyarrhythmia.[id number] 04:54:00 Test Item Value Reference Range Comments LIPASE (BEAKER) (test bhyc=630) 47 U/L 8-78 HEPATIC FUNCTION [id number] 04:54:00 Test Item Value Reference Range Comments TOTAL PROTEIN (BEAKER) (test dvbw=115) 5.5 gm/dL 6.0-8.3 ALBUMIN (BEAKER) (test uxfw=3986) 2.7 g/dL 3.5-5.0 BILIRUBIN TOTAL (BEAKER) (test dhnf=252) 0.8 mg/dL 0.2-1.2 BILIRUBIN DIRECT (BEAKER) (test fqzm=354) 0.6 mg/dL 0.1-0.5 ALKALINE PHOSPHATASE (BEAKER) (test whff=746) 133 U/L 40-150 AST (SGOT) (BEAKER) (test mejj=287) 38 U/L 5-34 ALT (SGPT) (BEAKER) (test wkay=986) 55 U/L 6-55 RAD, CHEST, 1 VIEW, NON [id number] 04:49:00Reason for exam:-> IntubationShould this be performed [...] MDReport Verified Date/Time: 05/05/2018 04:49:25 Reading Location: [address] Reading Room [id number] 04:47:00 Test Item Value Reference Range Comments PROCALCITONIN (BEAKER) (test lbfm=3962) 2.43 ng/mL <0.05 SEPSIS RISK (ng/mL)Low: 0.05-0.50Intermediate: 0.51-2.00High: & gt;=2.01RAD, ABDOMEN/KUB, 1 VIEW [id number] 04:47:00Reason for exam:->OG placement Should this be [...] MDReport Verified Date/Time: 05/05/201804:47 :09 Reading Location: [address] Reading Room BLOOD GAS, [id number] 03:34:00 Test Item Value Reference Range Comments PH ARTERIAL (BEAKER) (test wwgh=709) 7.14 7.35-7.45 PCO2 ARTERIAL (BEAKER) (test ldeg=120) 76 mmHg 35-45 PO2 ARTERIAL (BEAKER) (test psbs=746) 96 mmHg 80-90 O2 SATURATION ARTERIAL (BEAKER) (test ovnj=507) 94.6 % 96.0-97.0 HCO3 ARTERIAL (BEAKER) (test alpn=031) 25 mmol/L 21-29 BASE EXCESS ARTERIAL (BEAKER) (test vpjt=800) -4.3 mmol/L -2.0-3.0 PATIENT TEMPERATURE (BEAKER) (test wyph=6544) 37.0 C FIO2 (BEAKER) (test yrkx=0572) 40.0 % CBC W/PLT COUNT & AUTO [id number] 03:25:00 Test Item Value Reference Range Comments WHITE BLOOD CELL COUNT (BEAKER) (test mcoq=987) 20.0 K/ L 3.5-10.5 RED BLOOD CELL COUNT (BEAKER) (test mmmw=201) 2.19 M/ L 3.93-5.22 HEMOGLOBIN (BEAKER) (test drht=567) 7.4 GM/DL 11.2-15.7 HEMATOCRIT (BEAKER) (test mqyl=622) 24.4 % 34.1-44.9 MEAN CORPUSCULAR VOLUME (BEAKER) (test pqit=952) 111.4 fL 79.4-94.8 MEAN CORPUSCULAR HEMOGLOBIN (BEAKER) (test 33.8 pg 25.6-32.2 aelp=285) MEAN CORPUSCULAR HEMOGLOBIN CONC (BEAKER) (test 30.3 GM/DL 32.2-35.5 gndt=687) RED CELL DISTRIBUTION WIDTH (BEAKER) (test 15.8 % 11.7-14.4 etqw=315) PLATELET COUNT (BEAKER) (test ifpq=399) 357 K/CU MM 150-450 MEAN PLATELET VOLUME (BEAKER) (test ssfp=974) 9.5 fL 9.4-12.3 NUCLEATED RED BLOOD CELLS (BEAKER) (test 0 /100 WBC 0-0 wlsn=304) NEUTROPHILS RELATIVE PERCENT (BEAKER) (test 80 % skgf=588) LYMPHOCYTES RELATIVE PERCENT (BEAKER) (test 9 % bkmj=078) MONOCYTES RELATIVE PERCENT (BEAKER) (test 7 % vogn=222) EOSINOPHILS RELATIVE PERCENT (BEAKER) (test 0 % zqzk=675) BASOPHILS RELATIVE PERCENT (BEAKER) (test 0 % hdqk=088) NEUTROPHILS ABSOLUTE COUNT (BEAKER) (test 16.06 K/ L 1.56-6.13 zllq=316) LYMPHOCYTES ABSOLUTE COUNT (BEAKER) (test 1.76 K/ L 1.18-3.74 usfx=566) MONOCYTES ABSOLUTE COUNT (BEAKER) (test 1.30 K/ L 0.24-0.36 sbgb=179) EOSINOPHILS ABSOLUTE COUNT (BEAKER) (test 0.04 K/ L 0.04-0.36 zcmn=305) BASOPHILS ABSOLUTE COUNT (BEAKER) (test 0.05 K/ L 0.01-0.08 wkpl=476) IMMATURE GRANULOCYTES-RELATIVE PERCENT (BEAKER) 4 % 0-1 (test ouww=7086) LACTIC ACID, VENOUS, WHOLE [id number] 02:41:00 Test Item Value Reference Range Comments LACTATE BLOOD VENOUS (2) (BEAKER) (test 0.5 mmol/L 0.5-2.2 hfum=7090) Effective 12/15/2015: Units/Reference Range ChangeNew: 0.5-2.2 mmol/L Previous: 5 -20 mg/dLBLOOD GAS, [id number] 02:10:00 Test Item Value Reference Range Comments PH ARTERIAL (BEAKER) (test udvr=519) 7.17 7.35-7.45 PCO2 ARTERIAL (BEAKER) (test ovfv=199) 68 mmHg 35-45 PO2 ARTERIAL (BEAKER) (test mygy=512) 83 mmHg 80-90 O2 SATURATION ARTERIAL (BEAKER) (test hiwy=408) 93.2 % 96.0-97.0 HCO3 ARTERIAL (BEAKER) (test domc=620) 24 mmol/L 21-29 BASE EXCESS ARTERIAL (BEAKER) (test pweq=276) -4.3 mmol/L -2.0-3.0 PATIENT TEMPERATURE (BEAKER) (test xvcb=6188) 36.5 C FIO2 (BEAKER) (test fkcu=1422) 28.0 % BASIC METABOLIC [id number] 01:46:00 Test Item Value Reference Range Comments SODIUM (BEAKER) (test 127 meq/L 136-145 stvt=960) POTASSIUM (BEAKER) (test 4.8 meq/L 3.5-5.1 pqqf=227) CHLORIDE (BEAKER) (test 95 meq/L 98-107 lvev=081) CO2 (BEAKER) (test 23 meq/L 22-29 nbyo=919) BLOOD UREA NITROGEN 44 mg/dL 7-21 (BEAKER) (test mmsd=192) CREATININE (BEAKER) (test 4.41 mg/dL 0.57-1.25 jtqr=565) GLUCOSE RANDOM (BEAKER) 114 mg/dL 70-105 (test nanz=099) CALCIUM (BEAKER) (test 8.2 mg/dL 8.4-10.2 laqw=393) EGFR (BEAKER) (test 10 mL/min/1.73 sq m ESTIMATED GFR IS NOT oksd=2942) ACCURATE CREATININE CLEARANCE IN PREDICTING GLOMERULAR FILTRATION RATE. ESTIMATED GFR IS NOT APPLICABLE FOR DIALYSIS PATIENTS. B-TYPE NATRIURETIC FACTOR (BNP)2018-05-05 01:36:00 Test Item Value Reference Range Comments B-TYPE NATRIURETIC PEPTIDE (BEAKER) (test 124 pg/mL 0-100 zrwc=537) [id number] 01:31:00 Test Item Value Reference Range Comments MAGNESIUM (BEAKER) (test nrhb=342) 1.8 mg/dL 1.6-2.6 LACTIC ACID, VENOUS, WHOLE [id number] 01:29:00 Test Item Value Reference Range Comments LACTATE BLOOD VENOUS (2) (BEAKER) (test 0.7 mmol/L 0.5-2.2 zenx=8963) Effective 12/15/2015: Units/Reference Range ChangeNew: 0.5-2.2 mmol/L Previous: 5 -20 mg/dLCBC W/PLT COUNT & AUTO [id number] 01:14:00 Test Item Value Reference Range Comments WHITE BLOOD CELL COUNT (BEAKER) (test zlnl=747) 15.2 K/ L 3.5-10.5 RED BLOOD CELL COUNT (BEAKER) (test umaf=644) 2.11 M/ L 3.93-5.22 HEMOGLOBIN (BEAKER) (test yjju=448) 7.1 GM/DL 11.2-15.7 HEMATOCRIT (BEAKER) (test bazs=803) 23.2 % 34.1-44.9 MEAN CORPUSCULAR VOLUME (BEAKER) (test rsxo=600) 110.0 fL 79.4-94.8 MEAN CORPUSCULAR HEMOGLOBIN (BEAKER) (test 33.6 pg 25.6-32.2 gltd=323) MEAN CORPUSCULAR HEMOGLOBIN CONC (BEAKER) (test 30.6 GM/DL 32.2-35.5 ymbe=740) RED CELL DISTRIBUTION WIDTH (BEAKER) (test 15.9 % 11.7-14.4 ylvo=077) PLATELET COUNT (BEAKER) (test mwwm=897) 308 K/CU MM 150-450 MEAN PLATELET VOLUME (BEAKER) (test txcj=236) 9.5 fL 9.4-12.3 NUCLEATED RED BLOOD CELLS (BEAKER) (test 0 /100 WBC 0-0 pefv=129) NEUTROPHILS RELATIVE PERCENT (BEAKER) (test 81 % gtqr=080) LYMPHOCYTES RELATIVE PERCENT (BEAKER) (test 8 % zois=067) MONOCYTES RELATIVE PERCENT (BEAKER) (test 7 % wsuc=872) EOSINOPHILS RELATIVE PERCENT (BEAKER) (test 0 % mftj=297) BASOPHILS RELATIVE PERCENT (BEAKER) (test 0 % yloi=264) NEUTROPHILS ABSOLUTE COUNT (BEAKER) (test 12.30 K/ L 1.56-6.13 pngb=186) LYMPHOCYTES ABSOLUTE COUNT (BEAKER) (test 1.22 K/ L 1.18-3.74 rbvv=519) MONOCYTES ABSOLUTE COUNT (BEAKER) (test 1.05 K/ L 0.24-0.36 hinz=687) EOSINOPHILS ABSOLUTE COUNT (BEAKER) (test 0.02 K/ L 0.04-0.36 zzeo=058) BASOPHILS ABSOLUTE COUNT (BEAKER) (test 0.04 K/ L 0.01-0.08 fkng=284) IMMATURE GRANULOCYTES-RELATIVE PERCENT (BEAKER) 4 % 0-1 (test lsra=1213) POCT-GLUCOSE [id number] 01:01:00 Test Item Value Reference Range Comments POC-GLUCOSE METER (BEAKER) 138 mg/dL 70-110 TESTED AT [address] (test xedx=8928) [place] [id number] RAD, CHEST, 1 VIEW, NON [id number] 00:17:00Reason for exam:->concern for respiratory distressShould this [...] venous catheter remains in place. Signed: [facility] Verified Date/Time: 05/05/2018 00:17:28 Reading Location: [address] Reading Room POCT- LACTIC ACID, [id number] 23:56:00 Test Item Value Reference Range Comments POC-LACTIC ACID, ARTERIAL 0.9 mmol/L 0.4-1.3 TESTED AT [address] (BEBANNER) (test njkx=8857) [place] [address] POCT-BLOOD GASES, [id number] 23:56:00 Test Item Value Reference Range Comments TEMP, CELSIUS-POC (BEAKER) 36.1 (test edni=0668) FIO2-POC (BEAKER) (test 32 TESTED AT [address] cgrq=0598) [place] [id number] PH, ARTERIAL-POC (BEAKER) 7.192 7.350-7.450 (test alfg=3090) PCO2, ARTERIAL-POC (BEAKER) 63.6 mm Hg 35.0-45.0 (test eprp=5583) PO2, ARTERIAL-POC (BEAKER) 71.0 mm Hg 80.0-90.0 (test hhwx=5183) SO2, ARTERIAL-POC (BEAKER) 90.0 % 96.0-97.0 (test aqjz=6112) HCO3, ARTERIAL-POC (BEAKER) 24.7 meq/L 21.0-29.0 (test dhxf=9899) BASE EXCESS, ARTERIAL-POC -4.0 meq/L -2.0-3.0 (BEAKER) (test oxbm=1903) [id number] 23:56:00 Test Item Value Reference Range Comments POC-SODIUM (BEAKER) (test 127 meq/L 135-148 TESTED AT [address] rumg=3374) [place] [address] [id number] 23:56:00 Test Item Value Reference Range Comments POC-POTASSIUM (BEAKER) (test 4.8 meq/L 3.6-5.5 TESTED AT [address] lvbd=4303) [place] [address] [id number] 23:56:00 Test Item Value Reference Range Comments POC-GLUCOSE (BEAKER) (test 116 mg/dL 70-110 TESTED AT [address] aalq=9102) [place] [address] POCT-CALCIUM [id number] 23:56:00 Test Item Value Reference Range Comments POC-CALCIUM IONIZED (BEAKER) 1.20 mmol/L 1.12-1.27 TESTED AT [address] (test yskq=6028) [place] [address] [id number] 23:56:00 Test Item Value Reference Range Comments POC-HEMATOCRIT (BEAKER) (test 25 % 36-45 TESTED AT [address] wtlb=0616) [place] [address] [id number] 23:56:00 Test Item Value Reference Range Comments POC-HEMOGLOBIN (BEAKER) 8.5 g/dL 12.0-15.0 TESTED AT [address] (test zaay=1850) [place] [address]TESTED AT [place] [address] POCT-GLUCOSE [id number] 21:48:00 Test Item Value Reference Range Comments POC-GLUCOSE METER (BEAKER) 136 mg/dL 70-110 TESTED AT [address] (test idbu=4367) [place] [address] POCT-GLUCOSE [id number] 19:03:00 Test Item Value Reference Range Comments POC-GLUCOSE METER (BEAKER) 131 mg/dL 70-110 TESTED AT [address] (test cffi=7453) [place] [address] POCT-BLOOD GASES, [id number] 16:54:00 Test Item Value Reference Range Comments TEMP, CELSIUS-POC (BEAKER) 37.0 (test skub=1087) FIO2-POC (BEAKER) (test TESTED AT [address] cjwp=8714) [place] [address] PH, VENOUS-POC (BEAKER) 7.224 7.320-7.420 (test jdlz=2302) PCO2, VENOUS-POC (BEAKER) 63.8 mm Hg 41.0-51.0 (test gdpi=6542) PO2, VENOUS-POC (BEAKER) 31.0 mm Hg 25.0-40.0 (test mcwj=8241) SO2, VENOUS-POC (BEAKER) 46.0 % 40.0-70.0 (test cthq=6617) HCO3, VENOUS-POC (BEAKER) 26.3 meq/L 21.0-29.0 (test veua=5547) BASE EXCESS, VENOUS-POC -1.0 meq/L -2.0-3.0 (BEAKER) (test mifr=2659) [id number] 16:54:00 Test Item Value Reference Range Comments POC-SODIUM (BEAKER) (test 129 meq/L 135-148 TESTED AT [address] atsr=5963) [place] [address] [id number] 16:54:00 Test Item Value Reference Range Comments POC-POTASSIUM (BEAKER) (test 4.7 meq/L 3.6-5.5 TESTED AT [address] xzzj=9547) [place] [address] [id number] 16:54:00 Test Item Value Reference Range Comments POC-GLUCOSE (BEAKER) (test 116 mg/dL 70-110 TESTED AT [address] vfgp=6117) [place] [address] POCT-CALCIUM [id number] 16:54:00 Test Item Value Reference Range Comments POC-CALCIUM IONIZED (BEAKER) 1.19 mmol/L 1.12-1.27 TESTED AT [address] (test gqor=0168) [place] [address] [id number] 16:54:00 Test Item Value Reference Range Comments POC-HEMATOCRIT (BEAKER) (test 25 % 36-45 TESTED AT [address] hgcb=1983) [place] [address] [id number] 16:54:00 Test Item Value Reference Range Comments POC-HEMOGLOBIN (BEAKER) 8.5 g/dL 12.0-15.0 TESTED AT [address] (test rgoc=3460) [place] [address]TESTED AT [place] [address] POCT-GLUCOSE [id number] 13:26:00 Test Item Value Reference Range Comments POC-GLUCOSE METER (BEAKER) 124 mg/dL 70-110 TESTED AT [address] (test mhzo=8695) [place] [address] POCT-LACTIC ACID, [id number] 12:57:00 Test Item Value Reference Range Comments POC-LACTIC ACID, VENOUS 1.1 mmol/L 0.9-1.7 TESTED AT [address] (BEAKER) (test ydfv=3038) [place] [address] COMPREHENSIVE METABOLIC [id number] 09:56:00 Test Item Value Reference Range Comments TOTAL PROTEIN (BEAKER) 6.2 gm/dL 6.0-8.3 (test qula=405) ALBUMIN (BEAKER) (test 3.0 g/dL 3.5-5.0 bbcm=8598) ALKALINE PHOSPHATASE 160 U/L 40-150 (BEAKER) (test npoe=478) BILIRUBIN TOTAL (BEAKER) 1.1 mg/dL 0.2-1.2 (test tcjl=425) SODIUM (BEAKER) (test 131 meq/L 136-145 gfdz=209) POTASSIUM (BEAKER) (test 4.6 meq/L 3.5-5.1 nlib=880) CHLORIDE (BEAKER) (test 98 meq/L 98-107 ukkj=196) CO2 (BEAKER) (test 23 meq/L 22-29 wjub=578) BLOOD UREA NITROGEN 39 mg/dL 7-21 (BEAKER) (test wkjy=835) CREATININE (BEAKER) (test 3.86 mg/dL 0.57-1.25 yrtq=625) GLUCOSE RANDOM (BEAKER) 104 mg/dL 70-105 (test crwb=502) CALCIUM (BEAKER) (test 9.1 mg/dL 8.4-10.2 cvpg=962) AST (SGOT) (BEAKER) (test 57 U/L 5-34 xdyi=954) ALT (SGPT) (BEAKER) (test 75 U/L 6-55 lech=004) EGFR (BEAKER) (test 12 mL/min/1.73 sq m ESTIMATED GFR IS NOT iuwu=0480) ACCURATE CREATININE CLEARANCE IN PREDICTING GLOMERULAR FILTRATION RATE. ESTIMATED GFR IS NOT APPLICABLE FOR DIALYSIS PATIENTS. [id number] 09:48:00 Test Item Value Reference Range Comments PHOSPHORUS (BEAKER) (test pbzl=807) 5.0 mg/dL 2.3-4.7 [id number] 09:48:00 Test Item Value Reference Range Comments MAGNESIUM (BEAKER) (test gogb=797) 1.9 mg/dL 1.6-2.6 POCT-GLUCOSE [id number] 09:23:00 Test Item Value Reference Range Comments POC-GLUCOSE METER (BEAKER) 148 mg/dL 70-110 TESTED AT [address] (test vwcv=5003) [facility] [address] CBC (HEMOGRAM ONLY)2018-05-04 07:04:00 Test Item Value Reference Range Comments WHITE BLOOD CELL COUNT (BEAKER) (test woqy=371) 12.7 K/ L 3.5-10.5 RED BLOOD CELL COUNT (BEAKER) (test fvav=371) 2.50 M/ L 3.93-5.22 HEMOGLOBIN (BEAKER) (test jkra=215) 8.3 GM/DL 11.2-15.7 HEMATOCRIT (BEAKER) (test vccq=613) 27.6 % 34.1-44.9 MEAN CORPUSCULAR VOLUME (BEAKER) (test dfbq=644) 110.4 fL 79.4-94.8 MEAN CORPUSCULAR HEMOGLOBIN (BEAKER) (test 33.2 pg 25.6-32.2 wkjj=866) MEAN CORPUSCULAR HEMOGLOBIN CONC (BEAKER) (test 30.1 GM/DL 32.2-35.5 pbjl=429) RED CELL DISTRIBUTION WIDTH (BEAKER) (test 16.8 % 11.7-14.4 szsq=163) PLATELET COUNT (BEAKER) (test nuuh=349) 314 K/CU MM 150-450 MEAN PLATELET VOLUME (BEAKER) (test msit=396) 10.3 fL 9.4-12.3 NUCLEATED RED BLOOD CELLS (BEAKER) (test 0 /100 WBC 0-0 umas=160) PROTHROMBIN TIME/[id number] 06:20:00 Test Item Value Reference Range Comments PROTIME (BEAKER) (test njpr=402) 14.0 seconds 11.7-14.7 INR (BEAKER) (test gfmv=716) 1.1 <=5.9 RECOMMENDED COUMADIN/WARFARIN INR THERAPY RANGESSTANDARD DOSE: 2.0 - 3.0 Includes: PROPHYLAXIS forvenous thrombosis, systemic embolization; TREATMENT for venous thrombosis and/or pulmonary embolus.HIGH RISK: Target INR is 2.5-3.5 for patients with mechanical heart valves.[id number] 06:20:00 Test Item Value Reference Range Comments PARTIAL THROMBOPLASTIN TIME (BEAKER) (test 38.0 seconds 22.5-36.0 cdpc=706) POCT-GLUCOSE [id number] 21:01:00 Test Item Value Reference Range Comments POC-GLUCOSE METER (BEAKER) 113 mg/dL 70-110 TESTED AT [address] (test igsf=7959) [place] [id number] POCT-GLUCOSE [id number] 17:33:00 Test Item Value Reference Range Comments POC-GLUCOSE METER (BEAKER) 123 mg/dL 70-110 TESTED AT [address] (test lhhk=6003) [facility] [address] POCT-GLUCOSE [id number] 12:19:00 Test Item Value Reference Range Comments POC-GLUCOSE METER (BEAKER) 127 mg/dL 70-110 TESTED AT [address] (test ehmf=1326) [place] [id number] POCT-GLUCOSE [id number] 08:08:00 Test Item Value Reference Range Comments POC-GLUCOSE METER (BEAKER) 129 mg/dL 70-110 TESTED AT [address] (test nwxs=7027) [facility] [address] BLOOD GAS, [id number] 07:23:00 Test Item Value Reference Range Comments PH VENOUS (BEAKER) (test bbmv=146) 7.36 7.32-7.42 PCO2 VENOUS (BEAKER) (test awlw=325) 45 mmHg 41-51 PO2 VENOUS (BEAKER) (test slit=709) 45 mmHg 25-40 O2 SATURATION VENOUS (BEAKER) (test vnzg=202) 79.4 % 40.0-70.0 HCO3 VENOUS (BEAKER) (test zfyz=826) 25 mmol/L 21-29 BASE EXCESS VENOUS (BEAKER) (test niar=016) -0.5 mmol/L -2.0-3.0 PATIENT TEMPERATURE (BEAKER) (test sabs=7568) 37.0 C FIO2 (BEAKER) (test sjvs=0452) 20.0 % COMPREHENSIVE METABOLIC [id number] 07:11:00 Test Item Value Reference Range Comments TOTAL PROTEIN (BEAKER) 5.4 gm/dL 6.0-8.3 (test zvwj=732) ALBUMIN (BEAKER) (test 2.7 g/dL 3.5-5.0 equb=5270) ALKALINE PHOSPHATASE 147 U/L 40-150 (BEAKER) (test jxhy=413) BILIRUBIN TOTAL (BEAKER) 1.0 mg/dL 0.2-1.2 (test vycs=844) SODIUM (BEAKER) (test 134 meq/L 136-145 utsl=300) POTASSIUM (BEAKER) (test 4.2 meq/L 3.5-5.1 ywyz=118) CHLORIDE (BEAKER) (test 100 meq/L 98-107 lcnz=057) CO2 (BEAKER) (test 26 meq/L 22-29 appw=149) BLOOD UREA NITROGEN 31 mg/dL 7-21 (BEAKER) (test bfko=807) CREATININE (BEAKER) (test 3.33 mg/dL 0.57-1.25 zjiq=668) GLUCOSE RANDOM (BEAKER) 105 mg/dL 70-105 (test uoog=974) CALCIUM (BEAKER) (test 8.6 mg/dL 8.4-10.2 yixe=940) AST (SGOT) (BEAKER) (test 52 U/L 5-34 pqnz=535) ALT (SGPT) (BEAKER) (test 88 U/L 6-55 ywaf=816) EGFR (BEAKER) (test 14 mL/min/1.73 sq m ESTIMATED GFR IS NOT uxha=8688) ACCURATE CREATININE CLEARANCE IN PREDICTING GLOMERULAR FILTRATION RATE. ESTIMATED GFR IS NOT APPLICABLE FOR DIALYSIS PATIENTS. [id number] 07:09:00 Test Item Value Reference Range Comments PHOSPHORUS (BEAKER) (test eqwd=437) 3.6 mg/dL 2.3-4.7 [id number] 07:09:00 Test Item Value Reference Range Comments MAGNESIUM (BEAKER) (test mhmr=201) 1.8 mg/dL 1.6-2.6 [id number] 06:34:00 Test Item Value Reference Range Comments PARTIAL THROMBOPLASTIN TIME (BEAKER) (test 37.1 seconds 22.5-36.0 pvap=662) CBC (HEMOGRAM ONLY)2018-05-03 06:34:00 Test Item Value Reference Range Comments WHITE BLOOD CELL COUNT (BEAKER) (test swam=983) 11.8 K/ L 3.5-10.5 RED BLOOD CELL COUNT (BEAKER) (test ypqj=514) 2.28 M/ L 3.93-5.22 HEMOGLOBIN (BEAKER) (test rnph=296) 7.7 GM/DL 11.2-15.7 HEMATOCRIT (BEAKER) (test clps=305) 24.1 % 34.1-44.9 MEAN CORPUSCULAR VOLUME (BEAKER) (test shba=062) 105.7 fL 79.4-94.8 MEAN CORPUSCULAR HEMOGLOBIN (BEAKER) (test 33.8 pg 25.6-32.2 ekli=342) MEAN CORPUSCULAR HEMOGLOBIN CONC (BEAKER) (test 32.0 GM/DL 32.2-35.5 vhsh=409) RED CELL DISTRIBUTION WIDTH (BEAKER) (test 17.7 % 11.7-14.4 ybyy=284) PLATELET COUNT (BEAKER) (test vyjz=543) 262 K/CU MM 150-450 MEAN PLATELET VOLUME (BEAKER) (test spxh=644) 10.2 fL 9.4-12.3 NUCLEATED RED BLOOD CELLS (BEAKER) (test 0 /100 WBC 0-0 arzz=020) PROTHROMBIN [id number] 06:33:00 Test Item Value Reference Range Comments PROTIME (BEAKER) (test tkyy=343) 14.5 seconds 11.7-14.7 INR (BEAKER) (test iozt=129) 1.1 <=5.9 RECOMMENDED COUMADIN/WARFARIN INR THERAPY RANGESSTANDARD DOSE: 2.0 - 3.0 Includes: PROPHYLAXIS forvenous thrombosis, systemic embolization; TREATMENT for venous thrombosis and/or pulmonary embolus.HIGH RISK: Target INR is 2.5-3.5 for patients with mechanical heart valves.LACTIC ACID, VENOUS, WHOLE [id number] 06:32:00 Test Item Value Reference Range Comments LACTATE BLOOD VENOUS (2) (BEAKER) (test 1.0 mmol/L 0.5-2.2 bxjo=8449) Effective 12/15/2015: Units/Reference Range ChangeNew: 0.5-2.2 mmol/L Previous: 5 -20 mg/dLPOCT-GLUCOSE [id number] 21:06:00 Test Item Value Reference Range Comments POC-GLUCOSE METER (BEAKER) 168 mg/dL 70-110 TESTED AT [address] (test kscy=8297) [facility] [address] POCT-GLUCOSE [id number] 19:02:00 Test Item Value Reference Range Comments POC-GLUCOSE METER (BEAKER) 122 mg/dL 70-110 TESTED AT [address] (test jlle=9956) [place] [id number] 18:09:00 Test Item Value Reference Range Comments PHOSPHORUS (BEAKER) (test bkse=703) 2.7 mg/dL 2.3-4.7 [id number] 18:09:00 Test Item Value Reference Range Comments MAGNESIUM (BEAKER) (test etwo=095) 1.9 mg/dL 1.6-2.6 [id number] 18:09:00 Test Item Value Reference Range Comments CALCIUM (BEAKER) (test rpch=552) 8.7 mg/dL 8.4-10.2 POCT-GLUCOSE [id number] 13:13:00 Test Item Value Reference Range Comments POC-GLUCOSE METER (BEAKER) 162 mg/dL 70-110 TESTED AT [address] (test qlbo=7798) [facility] [address] RAD, CHEST, 1 VIEW, NON [id number] 12:12:00Reason for exam:->Pulmobnary edema?Should this be performed [...] Crowe Verified Date/Time: 05/02/2018 12:12:11 Reading Location: [facility] Radiology Reading Room POCT-GLUCOSE [id number] 08:27:00 Test Item Value Reference Range Comments POC-GLUCOSE METER (BEAKER) 128 mg/dL 70-110 TESTED AT [address] (test wcmh=5284) [place] [id number] COMPREHENSIVE METABOLIC [id number] 07:40:00 Test Item Value Reference Range Comments TOTAL PROTEIN (BEAKER) 5.4 gm/dL 6.0-8.3 (test fsbk=798) ALBUMIN (BEAKER) (test 2.7 g/dL 3.5-5.0 zdkx=7793) ALKALINE PHOSPHATASE 147 U/L 40-150 (BEAKER) (test qsex=657) BILIRUBIN TOTAL (BEAKER) 1.3 mg/dL 0.2-1.2 (test evxl=599) SODIUM (BEAKER) (test 134 meq/L 136-145 txwf=627) POTASSIUM (BEAKER) (test 3.3 meq/L 3.5-5.1 gyjf=640) CHLORIDE (BEAKER) (test 102 meq/L 98-107 ojnz=514) CO2 (BEAKER) (test 24 meq/L 22-29 lmox=702) BLOOD UREA NITROGEN 25 mg/dL 7-21 (BEAKER) (test flmc=895) CREATININE (BEAKER) (test 2.83 mg/dL 0.57-1.25 nkzv=993) GLUCOSE RANDOM (BEAKER) 123 mg/dL 70-105 (test kdno=154) CALCIUM (BEAKER) (test 8.4 mg/dL 8.4-10.2 coko=141) AST (SGOT) (BEAKER) (test 80 U/L 5-34 xsqz=754) ALT (SGPT) (BEAKER) (test 112 U/L 6-55 elik=655) EGFR (BEAKER) (test 17 mL/min/1.73 sq m ESTIMATED GFR IS NOT qwyc=3567) ACCURATE CREATININE CLEARANCE IN PREDICTING GLOMERULAR FILTRATION RATE. ESTIMATED GFR IS NOT APPLICABLE FOR DIALYSIS PATIENTS. [id number] 07:34:00 Test Item Value Reference Range Comments PHOSPHORUS (BEAKER) (test tcpy=336) 2.7 mg/dL 2.3-4.7 [id number] 07:34:00 Test Item Value Reference Range Comments MAGNESIUM (BEAKER) (test xait=402) 1.9 mg/dL 1.6-2.6 LACTIC ACID, VENOUS, WHOLE [id number] 06:59:00 Test Item Value Reference Range Comments LACTATE BLOOD VENOUS (2) (BEAKER) (test 0.7 mmol/L 0.5-2.2 jmbe=6215) Effective 12/15/2015: Units/Reference Range ChangeNew: 0.5-2.2 mmol/L Previous: 5 -20 mg/dLCBC (HEMOGRAM ONLY)2018-05-02 06:44:00 Test Item Value Reference Range Comments WHITE BLOOD CELL COUNT (BEAKER) (test uaca=913) 9.1 K/ L 3.5-10.5 RED BLOOD CELL COUNT (BEAKER) (test vgvs=802) 2.39 M/ L 3.93-5.22 HEMOGLOBIN (BEAKER) (test ckml=439) 8.0 GM/DL 11.2-15.7 HEMATOCRIT (BEAKER) (test ezrb=463) 25.3 % 34.1-44.9 MEAN CORPUSCULAR VOLUME (BEAKER) (test izob=154) 105.9 fL 79.4-94.8 MEAN CORPUSCULAR HEMOGLOBIN (BEAKER) (test 33.5 pg 25.6-32.2 jqwu=078) MEAN CORPUSCULAR HEMOGLOBIN CONC (BEAKER) (test 31.6 GM/DL 32.2-35.5 fulh=717) RED CELL DISTRIBUTION WIDTH (BEAKER) (test 18.1 % 11.7-14.4 ezft=694) PLATELET COUNT (BEAKER) (test grhj=685) 133 K/CU MM 150-450 MEAN PLATELET VOLUME (BEAKER) (test npka=041) 11.2 fL 9.4-12.3 NUCLEATED RED BLOOD CELLS (BEAKER) (test 0 /100 WBC 0-0 yolt=530) [id number] 06:34:00 Test Item Value Reference Range Comments PARTIAL THROMBOPLASTIN TIME (BEAKER) (test 38.8 seconds 22.5-36.0 ajtl=807) PROTHROMBIN [id number] 06:33:00 Test Item Value Reference Range Comments PROTIME (BEAKER) (test fqvp=217) 14.8 seconds 11.7-14.7 INR (BEAKER) (test epeb=863) 1.2 <=5.9 RECOMMENDED COUMADIN/WARFARIN INR THERAPY RANGESSTANDARD DOSE: 2.0 - 3.0 Includes: PROPHYLAXIS forvenous thrombosis, systemic embolization; TREATMENT for venous thrombosis and/or pulmonary embolus.HIGH RISK: Target INR is 2.5-3.5 for patients with mechanical heart valves.BLOOD GAS, [id number] 06:29:00 Test Item Value Reference Range Comments PH VENOUS (BEAKER) (test wtse=178) 7.51 7.32-7.42 PCO2 VENOUS (BEAKER) (test ycgl=699) 31 mmHg 41-51 PO2 VENOUS (BEAKER) (test tyaz=792) 173 mmHg 25-40 O2 SATURATION VENOUS (BEAKER) (test eizs=477) 99.3 % 40.0-70.0 HCO3 VENOUS (BEAKER) (test spmi=894) 25 mmol/L 21-29 BASE EXCESS VENOUS (BEAKER) (test wthd=480) 1.8 mmol/L -2.0-3.0 PATIENT TEMPERATURE (BEAKER) (test xiif=4575) 37.0 C FIO2 (BEAKER) (test zjqd=9225) 20 % BLOOD [id number] 06:00:00 Test Item Value Reference Range Comments CULTURE (BEAKER) (test xsyu=5960) No growth in 5 days BLOOD [id number] 06:00:00 Test Item Value Reference Range Comments CULTURE (BEAKER) (test pskm=0621) No growth in 5 days POCT-GLUCOSE [id number] 20:46:00 Test Item Value Reference Range Comments POC-GLUCOSE METER (BEAKER) 157 mg/dL 70-110 TESTED AT [address] (test lyia=9031) [place] [address] HEMOGLOBIN AND [id number] 14:24:00 Test Item Value Reference Range Comments HEMOGLOBIN (BEAKER) (test zrgc=205) 7.9 GM/DL 11.2-15.7 HEMATOCRIT (BEAKER) (test asyl=898) 23.3 % 34.1-44.9 POCT-GLUCOSE [id number] 13:32:00 Test Item Value Reference Range Comments POC-GLUCOSE METER (BEAKER) 116 mg/dL 70-110 TESTED AT [address] (test engt=9719) [place] [address] [id number] 12:04:00 Test Item Value Reference Range Comments PROCALCITONIN (BEAKER) (test kzox=7731) 2.57 ng/mL <0.05 SEPSIS RISK (ng/mL)Low: 0.05-0.50Intermediate: 0.51-2.00High: & gt;=[id number] 11:04:00 Test Item Value Reference Range Comments LIPASE (BEAKER) (test ihjv=552) 36 U/L 8-78 POCT-GLUCOSE [id number] 07:09:00 Test Item Value Reference Range Comments POC-GLUCOSE METER (BEAKER) 91 mg/dL 70-110 TESTED AT [address] (test gkiy=2573) [place] [id number] CALCIUM, [id number] 06:30:00 Test Item Value Reference Range Comments CALCIUM IONIZED (BEAKER) (test fotq=470) 1.10 mmol/L 1.12-1.27 PH, BLOOD (BEAKER) (test tyvn=5881) 7.40 BLOOD GAS, [id number] 05:31:00 Test Item Value Reference Range Comments PH VENOUS (BEAKER) (test ztyq=087) 7.44 7.32-7.42 PCO2 VENOUS (BEAKER) (test zrpn=860) 35 mmHg 41-51 PO2 VENOUS (BEAKER) (test knnj=916) 37 mmHg 25-40 O2 SATURATION VENOUS (BEAKER) (test xdym=177) 72.3 % 40.0-70.0 HCO3 VENOUS (BEAKER) (test rnfl=034) 23 mmol/L 21-29 BASE EXCESS VENOUS (BEAKER) (test swit=903) -0.6 mmol/L -2.0-3.0 PATIENT TEMPERATURE (BEAKER) (test npoc=0163) 37.0 C FIO2 (BEAKER) (test ylwn=1938) 20.0 % COMPREHENSIVE METABOLIC [id number] 05:10:00 Test Item Value Reference Range Comments TOTAL PROTEIN (BEAKER) 5.2 gm/dL 6.0-8.3 (test tzqf=889) ALBUMIN (BEAKER) (test 2.7 g/dL 3.5-5.0 wnej=2183) ALKALINE PHOSPHATASE 141 U/L 40-150 (BEAKER) (test wfyl=668) BILIRUBIN TOTAL (BEAKER) 1.9 mg/dL 0.2-1.2 (test aine=910) SODIUM (BEAKER) (test 137 meq/L 136-145 uqop=612) POTASSIUM (BEAKER) (test 3.6 meq/L 3.5-5.1 tvaj=760) CHLORIDE (BEAKER) (test 103 meq/L 98-107 xrqs=304) CO2 (BEAKER) (test 23 meq/L 22-29 gnyo=102) BLOOD UREA NITROGEN 16 mg/dL 7-21 (BEAKER) (test iwbp=078) CREATININE (BEAKER) (test 1.85 mg/dL 0.57-1.25 ocyv=078) GLUCOSE RANDOM (BEAKER) 97 mg/dL 70-105 (test kxnp=768) CALCIUM (BEAKER) (test 8.5 mg/dL 8.4-10.2 zbqa=463) AST (SGOT) (BEAKER) (test 141 U/L 5-34 owje=837) ALT (SGPT) (BEAKER) (test 161 U/L 6-55 aqpm=151) EGFR (BEAKER) (test 28 mL/min/1.73 sq m ESTIMATED GFR IS NOT zxrp=3071) ACCURATE CREATININE CLEARANCE IN PREDICTING GLOMERULAR FILTRATION RATE. ESTIMATED GFR IS NOT APPLICABLE FOR DIALYSIS PATIENTS. [id number] 05:05:00 Test Item Value Reference Range Comments PHOSPHORUS (BEAKER) (test qbdl=431) 2.2 mg/dL 2.3-4.7 [id number] 05:05:00 Test Item Value Reference Range Comments MAGNESIUM (BEAKER) (test fkph=463) 1.9 mg/dL 1.6-2.6 LACTIC ACID, VENOUS, WHOLE [id number] 04:44:00 Test Item Value Reference Range Comments LACTATE BLOOD VENOUS (2) (BEAKER) (test 0.7 mmol/L 0.5-2.2 vvfs=5799) Effective 12/15/2015: Units/Reference Range ChangeNew: 0.5-2.2 mmol/L Previous: 5 -20 mg/[id number] 04:42:00 Test Item Value Reference Range Comments PARTIAL THROMBOPLASTIN TIME (BEAKER) (test 41.1 seconds 22.5-36.0 bvfn=889) PROTHROMBIN [id number] 04:41:00 Test Item Value Reference Range Comments PROTIME (BEAKER) (test frua=384) 16.4 seconds 11.7-14.7 INR (BEAKER) (test dimz=878) 1.3 <=5.9 RECOMMENDED COUMADIN/WARFARIN INR THERAPY RANGESSTANDARD DOSE: 2.0 - 3.0 Includes: PROPHYLAXIS forvenous thrombosis, systemic embolization; TREATMENT for venous thrombosis and/or pulmonary embolus.HIGH RISK: Target INR is 2.5-3.5 for patients with mechanical heart valves.CBC (HEMOGRAM ONLY)2018-05-01 04:33:00 Test Item Value Reference Range Comments WHITE BLOOD CELL COUNT (BEAKER) (test ettx=242) 10.2 K/ L 3.5-10.5 RED BLOOD CELL COUNT (BEAKER) (test erpj=482) 2.26 M/ L 3.93-5.22 HEMOGLOBIN (BEAKER) (test kpre=739) 7.6 GM/DL 11.2-15.7 HEMATOCRIT (BEAKER) (test vuct=430) 22.8 % 34.1-44.9 MEAN CORPUSCULAR VOLUME (BEAKER) (test ywry=482) 100.9 fL 79.4-94.8 MEAN CORPUSCULAR HEMOGLOBIN (BEAKER) (test 33.6 pg 25.6-32.2 uvqv=497) MEAN CORPUSCULAR HEMOGLOBIN CONC (BEAKER) (test 33.3 GM/DL 32.2-35.5 dcqh=158) RED CELL DISTRIBUTION WIDTH (BEAKER) (test 17.1 % 11.7-14.4 usmw=575) PLATELET COUNT (BEAKER) (test lcai=124) 184 K/CU MM 150-450 MEAN PLATELET VOLUME (BEAKER) (test kgvk=812) 10.0 fL 9.4-12.3 NUCLEATED RED BLOOD CELLS (BEAKER) (test 1 /100 WBC 0-0 auws=044) POCT-GLUCOSE [id number] 22:06:00 Test Item Value Reference Range Comments POC-GLUCOSE METER (BEAKER) 109 mg/dL 70-110 TESTED AT [address] (test mssn=7902) [place] [address] [id number] 21:01:00 Test Item Value Reference Range Comments POTASSIUM (BEAKER) (test 4.1 meq/L 3.5-5.1 Specimen slightly hemolyzed jwng=804) [id number] 18:20:00 Test Item Value Reference Range Comments POTASSIUM (BEAKER) (test nwpo=320) 4.0 meq/L 3.5-5.1 [id number] 18:20:00 Test Item Value Reference Range Comments MAGNESIUM (BEAKER) (test kmki=646) 1.8 mg/dL 1.6-2.6 [id number] 18:20:00 Test Item Value Reference Range Comments PHOSPHORUS (BEAKER) (test ffhh=770) 1.9 mg/dL 2.3-4.7 [id number] 18:20:00 Test Item Value Reference Range Comments CALCIUM (BEAKER) (test uxcc=636) 8.9 mg/dL 8.4-10.2 POCT-GLUCOSE [id number] 17:24:00 Test Item Value Reference Range Comments POC-GLUCOSE METER (BEAKER) 100 mg/dL 70-110 TESTED AT [address] (test mjbh=1872) [facility] [address] BLOOD GAS, [id number] 14:09:00 Test Item Value Reference Range Comments PH VENOUS (BEAKER) (test ixsv=254) 7.46 7.32-7.42 PCO2 VENOUS (BEAKER) (test gyfp=427) 37 mmHg 41-51 PO2 VENOUS (BEAKER) (test iulx=171) 29 mmHg 25-40 O2 SATURATION VENOUS (BEAKER) (test yxaf=914) 58.8 % 40.0-70.0 HCO3 VENOUS (BEAKER) (test duww=581) 25 mmol/L 21-29 BASE EXCESS VENOUS (BEAKER) (test xfux=035) 1.6 mmol/L -2.0-3.0 PATIENT TEMPERATURE (BEAKER) (test wtyi=4192) 37.0 C FIO2 (BEAKER) (test iuof=8823) 100.0 % [id number] 13:11:00 Test Item Value Reference Range Comments POTASSIUM (BEAKER) (test poot=907) 4.2 meq/L 3.5-5.1 POCT-GLUCOSE [id number] 12:04:00 Test Item Value Reference Range Comments POC-GLUCOSE METER (BEAKER) 86 mg/dL 70-110 TESTED AT [facility] [address] [place] [address] (test miyz=1517) [place] [id number] 08:55:00 Test Item Value Reference Range Comments POTASSIUM (BEAKER) (test naeq=060) 4.2 meq/L 3.5-5.1 BLOOD GAS, [id number] 08:49:00 Test Item Value Reference Range Comments PH VENOUS (BEAKER) (test jzfn=669) 7.43 7.32-7.42 PCO2 VENOUS (BEAKER) (test kkpk=764) 35 mmHg 41-51 PO2 VENOUS (BEAKER) (test nuhq=559) 28 mmHg 25-40 O2 SATURATION VENOUS (BEAKER) (test ofms=249) 55.2 % 40.0-70.0 HCO3 VENOUS (BEAKER) (test ldqe=794) 23 mmol/L 21-29 BASE EXCESS VENOUS (BEAKER) (test bhlc=983) -1.3 mmol/L -2.0-3.0 PATIENT TEMPERATURE (BEAKER) (test hmui=6786) 37.0 C FIO2 (BEAKER) (test zvpn=6020) 100.0 % Please obtain with patient off bipapPOCT-GLUCOSE [id number] 07:13:00 Test Item Value Reference Range Comments POC-GLUCOSE METER (BEAKER) 83 mg/dL 70-110 TESTED AT [facility] [address] (test pkwz=5232) [place] [address] [id number] 04:01:00 Test Item Value Reference Range Comments PHOSPHORUS (BEAKER) (test akxt=909) 1.8 mg/dL 2.3-4.7 [id number] 04:01:00 Test Item Value Reference Range Comments MAGNESIUM (BEAKER) (test tlxy=431) 1.7 mg/dL 1.6-2.6 COMPREHENSIVE METABOLIC [id number] 04:01:00 Test Item Value Reference Range Comments TOTAL PROTEIN (BEAKER) 5.5 gm/dL 6.0-8.3 (test pvsh=762) ALBUMIN (BEAKER) (test 2.9 g/dL 3.5-5.0 hjmj=9814) ALKALINE PHOSPHATASE 125 U/L 40-150 (BEAKER) (test iutw=519) BILIRUBIN TOTAL (BEAKER) 2.0 mg/dL 0.2-1.2 (test ntsu=369) SODIUM (BEAKER) (test 135 meq/L 136-145 kfnc=564) POTASSIUM (BEAKER) (test 4.2 meq/L 3.5-5.1 trcw=427) CHLORIDE (BEAKER) (test 102 meq/L 98-107 xbnx=814) CO2 (BEAKER) (test 25 meq/L 22-29 repb=899) BLOOD UREA NITROGEN 11 mg/dL 7-21 (BEAKER) (test evfn=725) CREATININE (BEAKER) (test 1.23 mg/dL 0.57-1.25 qptf=448) GLUCOSE RANDOM (BEAKER) 76 mg/dL 70-105 (test jkdl=045) CALCIUM (BEAKER) (test 8.6 mg/dL 8.4-10.2 vlfq=705) AST (SGOT) (BEAKER) (test 307 U/L 5-34 mnad=833) ALT (SGPT) (BEAKER) (test 262 U/L 6-55 wdzz=567) EGFR (BEAKER) (test 45 mL/min/1.73 sq m ESTIMATED GFR IS NOT cnkv=6281) ACCURATE CREATININE CLEARANCE IN PREDICTING GLOMERULAR FILTRATION RATE. ESTIMATED GFR IS NOT APPLICABLE FOR DIALYSIS PATIENTS. LACTIC ACID, ARTERIAL, WHOLE [id number] 03:49:00 Test Item Value Reference Range Comments LACTATE BLOOD ARTERIAL (2) (BEAKER) (test 0.7 mmol/L 0.5-2.2 kckh=0039) Effective 12/15/2015: Units/Reference Range ChangeNew: 0.5-2.2 mmol/L Previous: 5 -20 mg/dLCBC (HEMOGRAM ONLY)2018-04-30 03:49:00 Test Item Value Reference Range Comments WHITE BLOOD CELL COUNT (BEAKER) (test mpqq=816) 9.3 K/ L 3.5-10.5 RED BLOOD CELL COUNT (BEAKER) (test zpnu=591) 2.39 M/ L 3.93-5.22 HEMOGLOBIN (BEAKER) (test skyt=923) 8.1 GM/DL 11.2-15.7 HEMATOCRIT (BEAKER) (test jqja=944) 24.4 % 34.1-44.9 MEAN CORPUSCULAR VOLUME (BEAKER) (test etre=298) 102.1 fL 79.4-94.8 MEAN CORPUSCULAR HEMOGLOBIN (BEAKER) (test 33.9 pg 25.6-32.2 zhoi=166) MEAN CORPUSCULAR HEMOGLOBIN CONC (BEAKER) (test 33.2 GM/DL 32.2-35.5 qvoc=856) RED CELL DISTRIBUTION WIDTH (BEAKER) (test 16.1 % 11.7-14.4 vvje=774) PLATELET COUNT (BEAKER) (test khwu=193) 130 K/CU MM 150-450 MEAN PLATELET VOLUME (BEAKER) (test xsyq=676) 9.6 fL 9.4-12.3 NUCLEATED RED BLOOD CELLS (BEAKER) (test 1 /100 WBC 0-0 xcjk=448) [id number] 03:47:00 Test Item Value Reference Range Comments PARTIAL THROMBOPLASTIN TIME (BEAKER) (test 32.8 seconds 22.5-36.0 jbaa=302) PROTHROMBIN [id number] 03:46:00 Test Item Value Reference Range Comments PROTIME (BEAKER) (test ieyt=556) 15.0 seconds 11.7-14.7 INR (BEAKER) (test ofif=204) 1.2 <=5.9 RECOMMENDED COUMADIN/WARFARIN INR THERAPY RANGESSTANDARD DOSE: 2.0 - 3.0 Includes: PROPHYLAXIS forvenous thrombosis, systemic embolization; TREATMENT for venous thrombosis and/or pulmonary embolus.HIGH RISK: Target INR is 2.5-3.5 for patients with mechanical heart valves.CALCIUM, [id number] 03:38:00 Test Item Value Reference Range Comments CALCIUM IONIZED (BEAKER) (test jrkq=397) 1.17 mmol/L 1.12-1.27 PH, BLOOD (BEAKER) (test lbaz=3299) 7.39 POCT-GLUCOSE [id number] 23:04:00 Test Item Value Reference Range Comments POC-GLUCOSE METER (BEAKER) 94 mg/dL 70-110 TESTED AT [address] (test szec=8613) [place] [address] [id number] 21:57:00 Test Item Value Reference Range Comments POTASSIUM (BEAKER) (test ytrg=413) 4.4 meq/L 3.5-5.1 POCT-GLUCOSE [id number] 18:02:00 Test Item Value Reference Range Comments POC-GLUCOSE METER (BEAKER) 99 mg/dL 70-110 TESTED AT [address] (test dicq=2912) [facility] [address] BLOOD GAS, [id number] 17:15:00 Test Item Value Reference Range Comments PH VENOUS (BEAKER) (test itfk=798) 7.31 7.32-7.42 PCO2 VENOUS (BEAKER) (test xkay=912) 57 mmHg 41-51 PO2 VENOUS (BEAKER) (test xdsc=017) 30 mmHg 25-40 O2 SATURATION VENOUS (BEAKER) (test kozy=179) 49.7 % 40.0-70.0 HCO3 VENOUS (BEAKER) (test jfts=409) 28 mmol/L 21-29 BASE EXCESS VENOUS (BEAKER) (test owdv=840) 1.2 mmol/L -2.0-3.0 PATIENT TEMPERATURE (BEAKER) (test lypg=7972) 37.0 C [id number] 16:07:00 Test Item Value Reference Range Comments POTASSIUM (BEAKER) (test ykyo=635) 4.4 meq/L 3.5-5.1 [id number] 16:07:00 Test Item Value Reference Range Comments MAGNESIUM (BEAKER) (test uyyp=887) 2.0 mg/dL 1.6-2.6 [id number] 16:07:00 Test Item Value Reference Range Comments PHOSPHORUS (BEAKER) (test nwtv=151) 2.1 mg/dL 2.3-4.7 [id number] 16:07:00 Test Item Value Reference Range Comments CALCIUM (BEAKER) (test xkry=620) 8.2 mg/dL 8.4-10.2 MR, ABDOMEN, [id number] 15:19:00FINAL REPORT INDICATION:57-year-old female with abdominal pain, [...] Verified Date/Time : 04/29/2018 15:19:21 Reading Location: [facility] B1 C013Y CT Body Reading Room U/S , RENAL WITH [id number] 14:53:00Reason for exam:->ENRIQUE with severe sepsisShould this [...] MDReportVerified Date/Time: 04/29/2018 14:53: 07 Reading Location: [facility] B1 P006J Ultrasound Reading Room BLOOD GAS, [id number] 14:33:00 Test Item Value Reference Range Comments PH VENOUS (BEAKER) (test bumj=654) 7.30 7.32-7.42 PCO2 VENOUS (BEAKER) (test exje=813) 58 mmHg 41-51 PO2 VENOUS (BEAKER) (test ltza=073) 25 mmHg 25-40 O2 SATURATION VENOUS (BEAKER) (test lnbr=416) 38.0 % 40.0-70.0 HCO3 VENOUS (BEAKER) (test ozsr=278) 28 mmol/L 21-29 BASE EXCESS VENOUS (BEAKER) (test pgmu=879) 0.5 mmol/L -2.0-3.0 PATIENT TEMPERATURE (BEAKER) (test xeew=8485) 37.0 C FIO2 (BEAKER) (test dftc=6772) 100.0 % POCT-GLUCOSE [id number] 12:20:00 Test Item Value Reference Range Comments POC-GLUCOSE METER (BEAKER) 116 mg/dL 70-110 TESTED AT [facility] [address] [facility] (test liva=3712) [facility] [address] BLOOD GAS, [id number] 10:57:00 Test Item Value Reference Range Comments PH VENOUS (BEAKER) (test injq=369) 7.25 7.32-7.42 PCO2 VENOUS (BEAKER) (test pbiw=078) 68 mmHg 41-51 PO2 VENOUS (BEAKER) (test zoxk=850) 34 mmHg 25-40 O2 SATURATION VENOUS (BEAKER) (test gujq=153) 53.1 % 40.0-70.0 HCO3 VENOUS (BEAKER) (test rkqp=761) 29 mmol/L 21-29 BASE EXCESS VENOUS (BEAKER) (test wyrj=778) 1.2 mmol/L -2.0-3.0 PATIENT TEMPERATURE (BEAKER) (test kdkj=7243) 37.0 C FIO2 (BEAKER) (test ztuv=4609) 100.0 % [id number] 10:19:00 Test Item Value Reference Range Comments POTASSIUM (BEAKER) (test jalc=934) 4.6 meq/L 3.5-5.1 ANTI-NUCLEAR ANTIBODY (ANTONIETA)2018-04-29 10:04:00 Test Item Value Reference Range Comments ANTI-NUCLEAR ANTIBODY (ANTONIETA) (BEAKER) (test Negative Negative vwfr=486) Test performed by IFA method.Test performed by IFA method.POCT-GLUCOSE [id number] 08:21:00 Test Item Value Reference Range Comments POC-GLUCOSE METER (BEAKER) 125 mg/dL 70-110 TESTED AT [facility] [address] (test uher=2404) [facility] [address] BLOOD GAS, [id number] 06:41:00 Test Item Value Reference Range Comments PH ARTERIAL (BEAKER) (test mgbk=333) 7.20 7.35-7.45 PCO2 ARTERIAL (BEAKER) (test lupr=201) 65 mmHg 35-45 PO2 ARTERIAL (BEAKER) (test alit=761) 183 mmHg 80-90 O2 SATURATION ARTERIAL (BEAKER) (test ofgy=097) 98.9 % 96.0-97.0 HCO3 ARTERIAL (BEAKER) (test iwtm=418) 25 mmol/L 21-29 BASE EXCESS ARTERIAL (BEAKER) (test wzut=623) -3.8 mmol/L -2.0-3.0 PATIENT TEMPERATURE (BEAKER) (test ncle=4872) 37.0 C FIO2 (BEAKER) (test ioat=5590) 28.0 % CALCIUM, [id number] 06:14:00 Test Item Value Reference Range Comments CALCIUM IONIZED (BEAKER) (test adkb=411) 1.11 mmol/L 1.12-1.27 PH, BLOOD (BEAKER) (test khvd=9212) 7.20 COMPREHENSIVE METABOLIC [id number] 06:06:00 Test Item Value Reference Range Comments TOTAL PROTEIN (BEAKER) 6.1 gm/dL 6.0-8.3 (test bakc=354) ALBUMIN (BEAKER) (test 3.3 g/dL 3.5-5.0 agjc=3382) ALKALINE PHOSPHATASE 119 U/L 40-150 (BEAKER) (test iftl=575) BILIRUBIN TOTAL (BEAKER) 2.1 mg/dL 0.2-1.2 (test tydc=714) SODIUM (BEAKER) (test 136 meq/L 136-145 ijwt=866) POTASSIUM (BEAKER) (test 4.5 meq/L 3.5-5.1 csok=062) CHLORIDE (BEAKER) (test 104 meq/L 98-107 jtfy=904) CO2 (BEAKER) (test 23 meq/L 22-29 tvsd=191) BLOOD UREA NITROGEN 29 mg/dL 7-21 (BEAKER) (test jxhh=811) CREATININE (BEAKER) (test 2.73 mg/dL 0.57-1.25 xhzj=242) GLUCOSE RANDOM (BEAKER) 115 mg/dL 70-105 (test inbw=297) CALCIUM (BEAKER) (test 8.1 mg/dL 8.4-10.2 hzzf=605) AST (SGOT) (BEAKER) (test 850 U/L 5-34 qdky=092) ALT (SGPT) (BEAKER) (test 450 U/L 6-55 hgzq=012) EGFR (BEAKER) (test 18 mL/min/1.73 sq m ESTIMATED GFR IS NOT zavb=8762) ACCURATE CREATININE CLEARANCE IN PREDICTING GLOMERULAR FILTRATION RATE. ESTIMATED GFR IS NOT APPLICABLE FOR DIALYSIS PATIENTS. BASIC METABOLIC [id number] 06:05:00 Test Item Value Reference Range Comments SODIUM (BEAKER) (test 136 meq/L 136-145 uegq=440) POTASSIUM (BEAKER) (test 4.5 meq/L 3.5-5.1 acko=404) CHLORIDE (BEAKER) (test 104 meq/L 98-107 ichs=032) CO2 (BEAKER) (test 23 meq/L 22-29 doub=138) BLOOD UREA NITROGEN 29 mg/dL 7-21 (BEAKER) (test tldv=670) CREATININE (BEAKER) (test 2.73 mg/dL 0.57-1.25 fuxe=048) GLUCOSE RANDOM (BEAKER) 115 mg/dL 70-105 (test bbbl=509) CALCIUM (BEAKER) (test 8.1 mg/dL 8.4-10.2 kzlf=529) EGFR (BEAKER) (test 18 mL/min/1.73 sq m ESTIMATED GFR IS NOT zbiw=6305) ACCURATE CREATININE CLEARANCE IN PREDICTING GLOMERULAR FILTRATION RATE. ESTIMATED GFR IS NOT APPLICABLE FOR DIALYSIS PATIENTS. [id number] 05:13:00 Test Item Value Reference Range Comments PHOSPHORUS (BEAKER) (test zmxp=493) 3.5 mg/dL 2.3-4.7 [id number] 05:13:00 Test Item Value Reference Range Comments MAGNESIUM (BEAKER) (test usbd=416) 2.2 mg/dL 1.6-2.6 HIV-1 ANTIGEN WITH HIV-1/2 [id number] 05:12:00 Test Item Value Reference Range Comments HIV-1 ANTIGEN WITH HIV 1\T\2 ANTIBODY (2) Nonreactive Nonreactive (BEAKER) (test iaua=7677) LACTIC ACID, ARTERIAL, WHOLE [id number] 04:48:00 Test Item Value Reference Range Comments LACTATE BLOOD ARTERIAL (2) (BEAKER) (test 1.0 mmol/L 0.5-2.2 kmkh=7838) Effective 12/15/2015: Units/Reference Range ChangeNew: 0.5-2.2 mmol/L Previous: 5 -20 mg/[id number] 04:47:00 Test Item Value Reference Range Comments PARTIAL THROMBOPLASTIN TIME (BEAKER) (test 34.3 seconds 22.5-36.0 tjqa=924) PROTHROMBIN TIME/[id number] 04:45:00 Test Item Value Reference Range Comments PROTIME (BEAKER) (test bapu=745) 14.9 seconds 11.7-14.7 INR (BEAKER) (test sjrd=657) 1.2 <=5.9 RECOMMENDED COUMADIN/WARFARIN INR THERAPY RANGESSTANDARD DOSE: 2.0 - 3.0 Includes: PROPHYLAXIS forvenous thrombosis, systemic embolization; TREATMENT for venous thrombosis and/or pulmonary embolus.HIGH RISK: Target INR is 2.5-3.5 for patients with mechanical heart valves.CBC (HEMOGRAM ONLY)2018-04-29 04:41:00 Test Item Value Reference Range Comments WHITE BLOOD CELL COUNT (BEAKER) (test pkjf=715) 10.8 K/ L 3.5-10.5 RED BLOOD CELL COUNT (BEAKER) (test yehz=452) 2.62 M/ L 3.93-5.22 HEMOGLOBIN (BEAKER) (test ayiy=819) 8.9 GM/DL 11.2-15.7 HEMATOCRIT (BEAKER) (test jclm=221) 27.2 % 34.1-44.9 MEAN CORPUSCULAR VOLUME (BEAKER) (test wqhm=461) 103.8 fL 79.4-94.8 MEAN CORPUSCULAR HEMOGLOBIN (BEAKER) (test 34.0 pg 25.6-32.2 ecam=138) MEAN CORPUSCULAR HEMOGLOBIN CONC (BEAKER) (test 32.7 GM/DL 32.2-35.5 dvpe=992) RED CELL DISTRIBUTION WIDTH (BEAKER) (test 15.8 % 11.7-14.4 usjk=742) PLATELET COUNT (BEAKER) (test euld=666) 123 K/CU MM 150-450 MEAN PLATELET VOLUME (BEAKER) (test mctb=067) 9.9 fL 9.4-12.3 NUCLEATED RED BLOOD CELLS (BEAKER) (test 0 /100 WBC 0-0 zyha=891) [id number] 00:18:00 Test Item Value Reference Range Comments POTASSIUM (BEAKER) (test oxpg=719) 3.9 meq/L 3.5-5.1 POCT-GLUCOSE [id number] 22:25:00 Test Item Value Reference Range Comments POC-GLUCOSE METER (BEAKER) 172 mg/dL 70-110 TESTED AT [address] (test ybtm=1617) [place] [id number] 20:46:00 Test Item Value Reference Range Comments CALCIUM (BEAKER) (test xrpq=460) 7.1 mg/dL 8.4-10.2 [id number] 20:34:00 Test Item Value Reference Range Comments PHOSPHORUS (BEAKER) (test 3.5 mg/dL 2.3-4.7 Specimen slightly hemolyzed cdjp=196) [id number] 20:34:00 Test Item Value Reference Range Comments POTASSIUM (BEAKER) (test 3.9 meq/L 3.5-5.1 Specimen slightly hemolyzed cmqo=866) [id number] 20:32:00 Test Item Value Reference Range Comments MAGNESIUM (BEAKER) (test 2.2 mg/dL 1.6-2.6 Specimen slightly hemolyzed ujhr=258) POCT-GLUCOSE [id number] 18:02:00 Test Item Value Reference Range Comments POC-GLUCOSE METER (BEAKER) 151 mg/dL 70-110 TESTED AT [address] (test hgth=8663) [place] [address] [id number] 15:43:00 Test Item Value Reference Range Comments POTASSIUM (BEAKER) (test nfzp=071) 4.0 meq/L 3.5-5.1 RAD, CHEST, 1 VIEW, NON [id number] 15:34:00Reason for exam:->HD cath placementShould this be performed at the bedside?->YesFINAL REPORT AP chest HISTORY: 04/28/2018 IMPRESSION:Right IJ dialysis catheter placed with tip at upper SVC. Remainder supportive lines unchanged. Stable cardiac silhouette. Hypoinflation. Mild perihilar atelectasis. No pneumothorax. Signed: Madeleine Santacruz MDReport Verified Date/Time: 04/28/2018 15:34:26 Reading Location: [address] Ortho Consult Reading Room PLATELET [id number] 15:32:00 Test Item Value Reference Range Comments PLATELET COUNT (BEAKER) (test wwcn=165) 105 K/CU MM 150-450 Please draw in citrate (blue top) tube at next blood drawACETAMINOPHEN [id number] 11:35:00 Test Item Value Reference Range Comments ACETAMINOPHEN LEVEL (BEAKER) (test krze=361) < ug/mL 10.0-30.0 Therapeutic Range: 10.0-30.0 g/mLToxic Levels: >200.0 g/mLPOCT- GLUCOSE [id number] 11:15:00 Test Item Value Reference Range Comments POC-GLUCOSE METER (BEAKER) 152 mg/dL 70-110 TESTED AT [address] (test qeii=0792) [facility] [address] HEPATITIS B SURFACE [id number] 11:06:00 Test Item Value Reference Range Comments HEPATITIS B SURFACE ANTIGEN (2) (BEAKER) (test Nonreactive Nonreactive pjqp=3802) HEPATITIS B CORE ANTIBODY, [id number] 11:06:00 Test Item Value Reference Range Comments HEPATITIS B CORE IGM ANTIBODY (BEAKER) (test Nonreactive Nonreactive mvvn=556) HEPATITIS C [id number] 11:06:00 Test Item Value Reference Range Comments HEPATITIS C ANTIBODY (BEAKER) (test jmsu=457) Nonreactive Nonreactive HEPATITIS A ANTIBODY, [id number] 11:06:00 Test Item Value Reference Range Comments HEPATITIS A IGM ANTIBODY (BEAKER) (test Nonreactive Nonreactive dgvs=616) PROTEIN, RANDOM [id number] 11:03:00 Test Item Value Reference Range Comments PROTEIN, URINE (BEAKER) (test wocl=0930) 191 mg/dL 0-14 HEMOGLOBIN [id number] 10:45:00 Test Item Value Reference Range Comments HEMOGLOBIN A1C (BEAKER) (test inid=570) 5.5 % 4.3-6.1 CREATININE, RANDOM [id number] 10:42:00 Test Item Value Reference Range Comments CREATININE URINE (BEAKER) (test hcea=139) 50.7 mg/dL Reference Range: No NormalsSODIUM, RANDOM [id number] 10:42:00 Test Item Value Reference Range Comments SODIUM URINE (BEAKER) (test frim=235) 48 meq/L Reference Range: No NormalsBASIC METABOLIC [id number] 09:24:00 Test Item Value Reference Range Comments SODIUM (BEAKER) (test 132 meq/L 136-145 xanv=974) POTASSIUM (BEAKER) (test 3.7 meq/L 3.5-5.1 ntpq=726) CHLORIDE (BEAKER) (test 101 meq/L 98-107 embn=976) CO2 (BEAKER) (test 18 meq/L 22-29 aojf=983) BLOOD UREA NITROGEN 53 mg/dL 7-21 (BEAKER) (test raqr=274) CREATININE (BEAKER) (test 4.49 mg/dL 0.57-1.25 zehw=986) GLUCOSE RANDOM (BEAKER) 127 mg/dL 70-105 (test ervn=840) CALCIUM (BEAKER) (test 6.8 mg/dL 8.4-10.2 nnei=102) EGFR (BEAKER) (test 10 mL/min/1.73 sq m ESTIMATED GFR IS NOT nopq=4122) ACCURATE CREATININE CLEARANCE IN PREDICTING GLOMERULAR FILTRATION RATE. ESTIMATED GFR IS NOT APPLICABLE FOR DIALYSIS PATIENTS. CALCIUM, [id number] 09:19:00 Test Item Value Reference Range Comments CALCIUM IONIZED (BEAKER) (test tcqh=948) 0.93 mmol/L 1.12-1.27 PH, BLOOD (BEAKER) (test aqwk=2564) 7.20 [id number] 09:13:00 Test Item Value Reference Range Comments HAPTOGLOBIN (BEAKER) (test enzf=729) 164 mg/dL 14-258 [id number] 09:12:00 Test Item Value Reference Range Comments PHOSPHORUS (BEAKER) (test vbzh=875) 4.5 mg/dL 2.3-4.7 [id number] 09:12:00 Test Item Value Reference Range Comments MAGNESIUM (BEAKER) (test dqpc=837) 1.7 mg/dL 1.6-2.6 RAD, CHEST, 1 VIEW, NON [id number] 09:01:00Reason for exam:-> hypoxiaShould this be performed at the bedside?->YesFINAL REPORT AP chest HISTORY: Hypoxia COMPARISON: 04/27/2018 IMPRESSION: Supportive lines unchanged. Stable cardiac silhouette. Minimal perihilar atelectasis. No pneumothorax. Signed: Madeleine Santacruzeport Verified Date/ Time: 04/28/2018 09:01:47 Reading Location: [facility] [id number] Consult Reading Room 09: 01 AMPERIPHERAL BLOOD SMEAR - HOLD [id number] 08:58:00 Test Item Value Reference Range Comments PERIPHERAL SMEAR SAVE (BEAKER) (test nafq=1235) saved RETICULOCYTE [id number] 08:58:00 Test Item Value Reference Range Comments RETICULOCYTE COUNT PCT (BEAKER) (test zcev=537) 3.6 % 0.5-1.7 HEMOGLOBIN AND [id number] 08:52:00 Test Item Value Reference Range Comments HEMOGLOBIN (BEAKER) (test gnsq=204) 8.2 GM/DL 11.2-15.7 HEMATOCRIT (BEAKER) (test idke=736) 24.9 % 34.1-44.9 CBC W/PLT COUNT & AUTO [id number] 07:40:00 Test Item Value Reference Range Comments WHITE BLOOD CELL COUNT (BEAKER) (test cpil=404) 5.2 K/ L 3.5-10.5 RED BLOOD CELL COUNT (BEAKER) (test rbbj=911) 2.31 M/ L 3.93-5.22 HEMOGLOBIN (BEAKER) (test bbdy=445) 7.9 GM/DL 11.2-15.7 HEMATOCRIT (BEAKER) (test eseo=925) 23.8 % 34.1-44.9 MEAN CORPUSCULAR VOLUME (BEAKER) (test dznt=691) 103.0 fL 79.4-94.8 MEAN CORPUSCULAR HEMOGLOBIN (BEAKER) (test 34.2 pg 25.6-32.2 lxrl=374) MEAN CORPUSCULAR HEMOGLOBIN CONC (BEAKER) (test 33.2 GM/DL 32.2-35.5 xsog=771) RED CELL DISTRIBUTION WIDTH (BEAKER) (test 15.3 % 11.7-14.4 phah=551) PLATELET COUNT (BEAKER) (test mhze=364) 88 K/CU MM 150-450 MEAN PLATELET VOLUME (BEAKER) (test khyf=131) 9.7 fL 9.4-12.3 NUCLEATED RED BLOOD CELLS (BEAKER) (test 1 /100 WBC 0-0 qoes=762) (MANUAL DIFFERENTIAL)2018-04-28 07:40:00 Test Item Value Reference Range Comments NEUTROPHILS - REL (DIFF) (BEAKER) (test 85 % puad=4272) LYMPHOCYTES - REL (DIFF) (BEAKER) (test 7 % mlzr=4534) MONOCYTES - REL (DIFF) (BEAKER) (test lqoh=5798) 1 % EOSINOPHILS - REL (DIFF) (BEAKER) (test 1 % qync=0738) BASOPHILS - REL (DIFF) (BEAKER) (test fpkz=4334) 0 % BANDS - REL (DIFF) (BEAKER) (test qoxa=6493) 5 % 0-10 ATYPICAL LYMPHOCYTE - REL (DIFF) (BEAKER) (test 1 % 0-0 aycp=480) NEUTROPHILS - ABS (DIFF) (BEAKER) (test 4.42 K/ L 1.80-8.00 afgv=1553) LYMPHOCYTES - ABS (DIFF) (BEAKER) (test 0.36 K/ L 1.48-4.50 rccn=0768) MONOCYTES - ABS (DIFF) (BEAKER) (test srio=1262) 0.05 K/ L 0.00-1.30 EOSINOPHILS - ABS (DIFF) (BEAKER) (test 0.05 K/ L 0.00-0.50 tvhg=0766) BASOPHILS - ABS (DIFF) (BEAKER) (test lwse=5480) 0.00 K/ L 0.00-0.20 BANDS-ABS (DIFF) (BEAKER) (test oglg=0203) 0.3 K/ L 0.0-0.8 ATYPICAL LYMPHOCYTES - ABS (DIFF) (BEAKER) (test 0.05 K/ L 0.00-0.00 pmze=066) TOTAL COUNTED (BEAKER) (test ahzg=5345) 100 BANDS + SEGMENTED NEUTROPHILS (BEAKER) (test 4.68 jzsw=1775) MANUAL NRBC PER 100 CELLS (BEAKER) (test 1 /100 WBC 0-0 uwch=9050) PLT MORPHOLOGY (BEAKER) (test hbjh=171) Normal RBC MORPHOLOGY (BEAKER) (test vawy=309) Normal VACUOLATED NEUTROPHILS (BEAKER) (test ioru=633) Present URINE [id number] 05:57:00 Test Item Value Reference Range Comments CULTURE (BEAKER) (test cfjh=9130) No growth [id number] 05:00:00 Test Item Value Reference Range Comments PHOSPHORUS (BEAKER) (test ktqh=786) 4.4 mg/dL 2.3-4.7 [id number] 05:00:00 Test Item Value Reference Range Comments MAGNESIUM (BEAKER) (test fyvq=655) 1.6 mg/dL 1.6-2.6 HEMOGLOBIN AND [id number] 04:48:00 Test Item Value Reference Range Comments HEMOGLOBIN (BEAKER) (test meat=845) 8.0 GM/DL 11.2-15.7 HEMATOCRIT (BEAKER) (test wkhd=161) 24.0 % 34.1-44.9 LIPID [id number] 03:38:00 Test Item Value Reference Range Comments TRIGLYCERIDES (BEAKER) (test fowo=130) 322 mg/dL CHOLESTEROL (BEAKER) (test zsse=652) 131 mg/dL HDL CHOLESTEROL (BEAKER) (test ydcb=361) 6 mg/dL LDL CHOLESTEROL CALCULATED (BEAKER) (test 61 mg/dL fidu=993) Triglyceride Reference Range: Low Risk <150 Borderline 150- 199 High Risk 200-499 Very High Risk >=500Cholesterol Reference Range: Low Risk <200 Borderline 200-239 High Risk > 240HDL Cholesterol Reference Range: Low Risk >=60 High Risk <40LDL Cholesterol Reference Range: Optimal <100 Near Optimal 100-129 Borderline 130-159 High 160-189 Very High >=190HEPATIC FUNCTION [id number] 03:38:00 Test Item Value Reference Range Comments TOTAL PROTEIN (BEAKER) (test iaaa=813) 4.8 gm/dL 6.0-8.3 ALBUMIN (BEAKER) (test otsw=9295) 2.7 g/dL 3.5-5.0 BILIRUBIN TOTAL (BEAKER) (test siml=590) 1.8 mg/dL 0.2-1.2 BILIRUBIN DIRECT (BEAKER) (test tedl=358) 1.3 mg/dL 0.1-0.5 ALKALINE PHOSPHATASE (BEAKER) (test xlgn=182) 83 U/L 40-150 AST (SGOT) (BEAKER) (test fvvb=958) 1541 U/L 5-34 ALT (SGPT) (BEAKER) (test nqzn=035) 487 U/L 6-55 LACTATE DEHYDROGENASE (LDH)2018-04-28 03:38:00 Test Item Value Reference Range Comments LACTATE DEHYDROGENASE (BEAKER) (test ynqz=145) 1138 U/L 125-220 [id number] 03:38:00 Test Item Value Reference Range Comments LIPASE (BEAKER) (test jfcz=185) 525 U/L 8-78 C-REACTIVE [id number] 03:38:00 Test Item Value Reference Range Comments C-REACTIVE PROTEIN (BEAKER) (test iprn=754) 12.99 mg/dL 0.00-0.50 [id number] 03:23:00 Test Item Value Reference Range Comments FIBRINOGEN LEVEL (BEAKER) (test qgef=758) 328 mg/dl 225-434 [id number] 03:23:00 Test Item Value Reference Range Comments PROTIME (BEAKER) (test bnoc=374) 16.2 seconds 11.7-14.7 INR (BEAKER) (test bwqt=719) 1.3 <=5.9 PARTIAL THROMBOPLASTIN TIME (BEAKER) (test 26.9 seconds 22.5-36.0 sytq=584) RECOMMENDED COUMADIN/WARFARIN INR THERAPY RANGESSTANDARD DOSE: 2.0 - 3.0 Includes: PROPHYLAXIS forvenous thrombosis, systemic embolization; TREATMENT for venous thrombosis and/or pulmonary embolus.HIGH RISK: Target INR is 2.5-3.5 for patients with mechanical heart valves.PROTHROMBIN [id number] 03:22: 00 Test Item Value Reference Range Comments PROTIME (BEAKER) (test bfqu=209) 16.2 seconds 11.7-14.7 INR (BEAKER) (test mycq=254) 1.3 <=5.9 RECOMMENDED COUMADIN/WARFARIN INR THERAPY RANGESSTANDARD DOSE: 2.0 - 3.0 Includes: PROPHYLAXIS forvenous thrombosis, systemic embolization; TREATMENT for venous thrombosis and/or pulmonary embolus.HIGH RISK: Target INR is 2.5-3.5 for patients with mechanical heart valves.POCT-GLUCOSE [id number] 02:57:00 Test Item Value Reference Range Comments POC-GLUCOSE METER (BEAKER) 135 mg/dL 70-110 TESTED AT [address] (test idco=8900) [place] [id number] POCT-GLUCOSE [id number] 00:21:00 Test Item Value Reference Range Comments POC-GLUCOSE METER (BEAKER) 177 mg/dL 70-110 TESTED AT [address] (test ivjr=4231) [place] [address] HEMOGLOBIN AND [id number] 00:21:00 Test Item Value Reference Range Comments HEMOGLOBIN (BEAKER) (test vglv=296) 8.3 GM/DL 11.2-15.7 HEMATOCRIT (BEAKER) (test pbtw=231) 24.6 % 34.1-44.9 POCT-GLUCOSE [id number] 22:08:00 Test Item Value Reference Range Comments POC-GLUCOSE METER (BEAKER) 156 mg/dL 70-110 TESTED AT [address] (test zjpw=9733) [place] [id number] POCT-GLUCOSE [id number] 18:16:00 Test Item Value Reference Range Comments POC-GLUCOSE METER (BEAKER) 156 mg/dL 70-110 TESTED AT [address] (test duts=1268) [place] [id number] LACTATE DEHYDROGENASE (LDH)2018-04-27 16:18:00 Test Item Value Reference Range Comments LACTATE DEHYDROGENASE (BEAKER) (test jptq=756) 1130 U/L 125-220 RAD, CHEST, 1 VIEW, NON [id number] 15:58:00Reason for exam:->LIJ placementShould this be performed [...] or blastic abnormalities are seen. Signed: Yanet [place] Verified Date/Time: 04/27/2018 15:58:19 Reading Location: [address] Transitional Reading Room HEMOGLOBIN AND [id number] 15:37:00 Test Item Value Reference Range Comments HEMOGLOBIN (BEAKER) (test gxdl=944) 8.8 GM/DL 11.2-15.7 HEMATOCRIT (BEAKER) (test ojyl=930) 26.1 % 34.1-44.9 PERIPHERAL BLOOD SMEAR - HOLD [id number] 14:50:00 Test Item Value Reference Range Comments PERIPHERAL SMEAR SAVE (BEAKER) (test ylhs=3786) saved C-REACTIVE [id number] 12:47:00 Test Item Value Reference Range Comments C-REACTIVE PROTEIN (BEAKER) (test rxpb=689) 9.17 mg/dL 0.00-0.50 POCT-GLUCOSE [id number] 12:15:00 Test Item Value Reference Range Comments POC-GLUCOSE METER (BEAKER) 164 mg/dL 70-110 TESTED AT [facility] [address] [facility] (test urax=8613) [facility] [address] B-TYPE NATRIURETIC FACTOR (BNP)2018-04-27 11:37:00 Test Item Value Reference Range Comments B-TYPE NATRIURETIC PEPTIDE (BEAKER) (test 176 pg/mL 0-100 iduf=965) HEMOGLOBIN AND [id number] 11:08:00 Test Item Value Reference Range Comments HEMOGLOBIN (BEAKER) (test cayd=620) 8.7 GM/DL 11.2-15.7 HEMATOCRIT (BEAKER) (test arni=479) 25.6 % 34.1-44.9 [id number] 10:07:00 Test Item Value Reference Range Comments FERRITIN (BEAKER) (test cznb=601) 4542 ng/mL 5-275 VITAMIN [id number] 10:06:00 Test Item Value Reference Range Comments VITAMIN B12 (BEAKER) (test mktp=249) > pg/mL 213-816 CBC W/PLT COUNT & AUTO [id number] 09:11:00 Test Item Value Reference Range Comments WHITE BLOOD CELL COUNT (BEAKER) (test riqp=249) 4.9 K/ L 3.5-10.5 RED BLOOD CELL COUNT (BEAKER) (test bgre=420) 2.72 M/ L 3.93-5.22 HEMOGLOBIN (BEAKER) (test crdz=234) 9.3 GM/DL 11.2-15.7 HEMATOCRIT (BEAKER) (test lmmg=607) 27.0 % 34.1-44.9 MEAN CORPUSCULAR VOLUME (BEAKER) (test qxcv=551) 99.3 fL 79.4-94.8 MEAN CORPUSCULAR HEMOGLOBIN (BEAKER) (test 34.2 pg 25.6-32.2 ixhu=399) MEAN CORPUSCULAR HEMOGLOBIN CONC (BEAKER) (test 34.4 GM/DL 32.2-35.5 hmzw=077) RED CELL DISTRIBUTION WIDTH (BEAKER) (test 14.4 % 11.7-14.4 vokk=597) PLATELET COUNT (BEAKER) (test kqzv=138) 111 K/CU MM 150-450 MEAN PLATELET VOLUME (BEAKER) (test uisz=843) 9.5 fL 9.4-12.3 NUCLEATED RED BLOOD CELLS (BEAKER) (test 1 /100 WBC 0-0 iabj=294) (CELLAVISION MANUAL DIFF)2018-04-27 09:11:00 Test Item Value Reference Range Comments NEUTROPHILS - REL (CELLAVISION)(BEAKER) (test 61 % emms=5247) LYMPHOCYTES - REL (CELLAVISION)(BEAKER) (test 8 % nrlf=4511) MONOCYTES - REL (CELLAVISION)(BEAKER) (test 4 % ezmm=9692) EOSINOPHILS - REL (CELLAVISION)(BEAKER) (test 1 % uvwi=5338) BANDS - REL (CELLAVISION)(BEAKER) (test 26 % 0-10 agux=7691) NEUTROPHILS - ABS (CELLAVISION)(BEAKER) (test 2.99 K/ul 1.56-6.13 bovq=6568) LYMPHOCYTES - ABS (CELLAVISION)(BEAKER) (test 0.39 K/ul 1.18-3.74 vykv=7819) MONOCYTES - ABS (CELLAVISION)(BEAKER) (test 0.20 K/uL 0.24-0.36 zlsz=2175) EOSINOPHILS - ABS (CELLAVISION)(BEAKER) (test 0.05 K/uL 0.04-0.36 atqu=8690) BANDS - ABS (CELLAVISION)(BEAKER) (test 1.27 K/uL 0.00-0.80 llwn=4039) TOTAL COUNTED (BEAKER) (test mxlj=1938) 100 MANUAL NRBC PER 100 CELLS (BEAKER) (test 2 /100 WBC 0-0 bqps=7920) RBC MORPHOLOGY (BEAKER) (test bzzj=554) Normal WBC MORPHOLOGY (BEAKER) (test ojga=270) Normal PLT MORPHOLOGY (BEAKER) (test ujap=008) Normal ARTIFACT (CELLAVISION)(BEAKER) (test jxww=6441) Present PLATELET CONCENTRATION (CELLAVISION)(BEAKER) Decreased (test egqt=1314) Received comment: User comments: Slide comments:IRON, TIBC, % SAT. (WITHOUT FERRITIN)2018-04-27 09:05:00 Test Item Value Reference Range Comments IRON (BEAKER) (test lvbg=047) 40 ug/dL 40-160 TOTAL IRON BINDING CAPACITY (BEAKER) (test 111 ug/dL 250-450 usus=718) IRON % SATURATION (2) (BEAKER) (test wgqw=2761) 36 % 20-55 [id number] 09:03:00 Test Item Value Reference Range Comments PHOSPHORUS (BEAKER) (test wiyg=997) 4.2 mg/dL 2.3-4.7 LACTIC ACID, VENOUS, WHOLE [id number] 09:00:00 Test Item Value Reference Range Comments LACTATE BLOOD VENOUS (2) (BEAKER) (test 1.0 mmol/L 0.5-2.2 fgla=8602) Effective 12/15/2015: Units/Reference Range ChangeNew: 0.5-2.2 mmol/L Previous: 5 -20 mg/dLHEMOGLOBIN [id number] 08:35:00 Test Item Value Reference Range Comments HEMOGLOBIN A1C (BELEO) (test jcza=923) 5.0 % 4.3-6.1 U/S, ABDOMINAL, [id number] 07:57:00Abdomen limited area? Add comment if clarification [...] MDReport Verified Date/Time: 2017 07:57:35 Reading Location: [facility] C013X [facility] Reading Room [id number] 07:07:00 Test Item Value Reference Range Comments MAGNESIUM (BEAKER) (test dlcf=075) 1.8 mg/dL 1.6-2.6 LACTIC ACID, VENOUS, WHOLE [id number] 07:05:00 Test Item Value Reference Range Comments LACTATE BLOOD VENOUS (2) 1.1 mmol/L 0.5-2.2 Specimen slightly hemolyzed (BEAKER) (test gypl=4741) Effective 12/15/2015: Units/Reference Range ChangeNew: 0.5-2.2 mmol/L Previous: 5 -20 mg/dLHEMOGLOBIN AND [id number] 06:54:00 Test Item Value Reference Range Comments HEMOGLOBIN (BEAKER) (test fcqy=112) 9.0 GM/DL 11.2-15.7 HEMATOCRIT (BEAKER) (test yntc=847) 26.7 % 34.1-44.9 POCT-GLUCOSE [id number] 06:28:00 Test Item Value Reference Range Comments POC-GLUCOSE METER (BEAKER) 122 mg/dL 70-110 TESTED AT [address] (test isua=4593) [place] [address] [id number] 05:17:00 Test Item Value Reference Range Comments AMMONIA (BEAKER) (test sbjb=830) 40 mol/L 18-72 POCT-GLUCOSE [id number] 04:46:00 Test Item Value Reference Range Comments POC-GLUCOSE METER (BEAKER) 166 mg/dL 70-110 TESTED AT [address] (test jzpu=3408) [place] [id number] BLOOD GAS, [id number] 04:15:00 Test Item Value Reference Range Comments PH ARTERIAL (BEAKER) (test vjui=051) 7.34 7.35-7.45 PCO2 ARTERIAL (BEAKER) (test iejz=240) 38 mm Hg 35-45 PO2 ARTERIAL (BEAKER) (test jnky=076) 113 mm Hg 80-90 O2 SATURATION ARTERIAL (BEAKER) (test cgaa=302) 97.6 % 96.0-97.0 HCO3 ARTERIAL (BEAKER) (test jpjx=959) 19 mmol/L 21-29 BASE EXCESS ARTERIAL (BEAKER) (test scni=341) -5.9 mmol/L -2.0-3.0 PATIENT TEMPERATURE (BEAKER) (test xmcr=2550) 38.3 FIO2 (BEAKER) (test xysm=3474) 32 URINALYSIS W/ [id number] 01:36:00 Test Item Value Reference Range Comments COLOR (BEAKER) (test fkuk=992) Dark Yellow CLARITY (BEAKER) (test mbtx=187) Hazy SPECIFIC GRAVITY UA (BEAKER) (test vcru=535) 1.035 1.001-1.035 PH UA (BEAKER) (test hmen=696) 5.5 5.0-8.0 PROTEIN UA (BEAKER) (test yrhw=596) 200 mg/dL Negative GLUCOSE UA (BEAKER) (test cien=540) 100 mg/dL Negative KETONES UA (BEAKER) (test iknq=717) Negative Negative BILIRUBIN UA (BEAKER) (test qlfu=446) Positive Negative BLOOD UA (BEAKER) (test rpdu=024) Large Negative NITRITE UA (BEAKER) (test xtzr=778) Negative Negative LEUKOCYTE ESTERASE UA (BEAKER) (test oeqy=079) Small Negative UROBILINOGEN UA (BEAKER) (test efpg=912) 2.0 mg/dL 0.2-1.0 RBC UA (BEAKER) (test jmin=105) 83 /HPF WBC UA (BEAKER) (test dxwm=164) 16 /HPF MUCUS (BEAKER) (test yfnz=8130) Rare GRANULAR CASTS (BEAKER) (test iqpz=113) 8 /LPF AMORPHOUS CRYSTALS (BEAKER) (test omak=7306) Moderate SOURCE(BEAKER) (test yput=0805) Urine, [place] HEMOGLOBIN AND [id number] 01:19:00 Test Item Value Reference Range Comments HEMOGLOBIN (BEAKER) (test ikoy=377) 9.0 GM/DL 11.2-15.7 HEMATOCRIT (BEAKER) (test ecjb=524) 26.3 % 34.1-44.9 [id number] 00:57:00 Test Item Value Reference Range Comments PHOSPHORUS (BEAKER) (test zsnr=635) 0.7 mg/dL 2.3-4.7 COMPREHENSIVE METABOLIC [id number] 00:55:00 Test Item Value Reference Range Comments TOTAL PROTEIN (BEAKER) 4.7 gm/dL 6.0-8.3 (test mlin=877) ALBUMIN (BEAKER) (test 2.8 g/dL 3.5-5.0 flqz=1781) ALKALINE PHOSPHATASE 79 U/L 40-150 (BEAKER) (test cgju=153) BILIRUBIN TOTAL (BEAKER) 2.9 mg/dL 0.2-1.2 (test xqjb=217) SODIUM (BEAKER) (test 130 meq/L 136-145 gvky=274) POTASSIUM (BEAKER) (test 3.2 meq/L 3.5-5.1 dzye=076) CHLORIDE (BEAKER) (test 99 meq/L 98-107 opwg=074) CO2 (BEAKER) (test 19 meq/L 22-29 htrw=913) BLOOD UREA NITROGEN 41 mg/dL 7-21 (BEAKER) (test texw=409) CREATININE (BEAKER) (test 2.58 mg/dL 0.57-1.25 ndsz=482) GLUCOSE RANDOM (BEAKER) 178 mg/dL 70-105 (test ipss=267) CALCIUM (BEAKER) (test 7.2 mg/dL 8.4-10.2 tkpb=416) AST (SGOT) (BEAKER) (test 845 U/L 5-34 szhh=253) ALT (SGPT) (BEAKER) (test 275 U/L 6-55 lwlu=553) EGFR (BEAKER) (test 19 mL/min/1.73 sq m ESTIMATED GFR IS NOT nyyd=5875) ACCURATE CREATININE CLEARANCE IN PREDICTING GLOMERULAR FILTRATION RATE. ESTIMATED GFR IS NOT APPLICABLE FOR DIALYSIS PATIENTS. Specimen slightly [id number] 00:53:00 Test Item Value Reference Range Comments MAGNESIUM (BEAKER) (test midd=042) 1.9 mg/dL 1.6-2.6 LIPID [id number] 00:53:00 Test Item Value Reference Range Comments TRIGLYCERIDES (BEAKER) (test oxrd=899) 742 mg/dL CHOLESTEROL (BEAKER) (test hekd=164) 146 mg/dL HDL CHOLESTEROL (BEAKER) (test vawj=139) 9 mg/dL Calculated LDL not valid if triglyceride >400 mg/dLTriglyceride Reference Range: Low Risk <150 Borderline 150-199 High Risk 200-499 Very High Risk >=500Cholesterol Reference Range: Low Risk <200 Borderline 200-239 High Risk >240HDL Cholesterol Reference Range: Low Risk >=60 High Risk <40LDL Cholesterol ReferenceRange: Optimal <100 Near Optimal 100-129 Borderline 130-159 High 160-189 Very High >=190 Specimen slightly ictericCALCIUM, [id number] 00:50:00 Test Item Value Reference Range Comments CALCIUM IONIZED (BEAKER) (test vogp=367) 1.02 mmol/L 1.12-1.27 PH, BLOOD (BEAKER) (test xmow=4752) 7.31 LACTIC ACID, VENOUS, WHOLE [id number] 00:47:00 Test Item Value Reference Range Comments LACTATE BLOOD VENOUS (2) (BEAKER) (test 3.6 mmol/L 0.5-2.2 svoh=7659) Effective 12/15/2015: Units/Reference Range ChangeNew: 0.5-2.2 mmol/L Previous: 5 -20 mg/dLCBC W/PLT COUNT & AUTO [id number] 00:40:00 Test Item Value Reference Range Comments WHITE BLOOD CELL COUNT (BEAKER) (test mdql=902) 5.6 K/ L 3.5-10.5 RED BLOOD CELL COUNT (BEAKER) (test xlcd=967) 2.94 M/ L 3.93-5.22 HEMOGLOBIN (BEAKER) (test bcsa=190) 10.1 GM/DL 11.2-15.7 HEMATOCRIT (BEAKER) (test eeiu=647) 29.3 % 34.1-44.9 MEAN CORPUSCULAR VOLUME (BEAKER) (test svdj=704) 99.7 fL 79.4-94.8 MEAN CORPUSCULAR HEMOGLOBIN (BEAKER) (test 34.4 pg 25.6-32.2 vnid=028) MEAN CORPUSCULAR HEMOGLOBIN CONC (BEAKER) (test 34.5 GM/DL 32.2-35.5 aryd=366) RED CELL DISTRIBUTION WIDTH (BEAKER) (test 14.3 % 11.7-14.4 glnb=087) PLATELET COUNT (BEAKER) (test mxnq=407) 124 K/CU MM 150-450 MEAN PLATELET VOLUME (BEAKER) (test siak=035) 9.3 fL 9.4-12.3 NUCLEATED RED BLOOD CELLS (BEAKER) (test 1 /100 WBC 0-0 gyvb=548) (CELLAVISION MANUAL DIFF)2018-04-27 00:40:00 Test Item Value Reference Range Comments NEUTROPHILS - REL 46 % Green-Blue Neutrophilic (CELLAVISION)(BEAKER) (test inclusions seen. tbne=9840) LYMPHOCYTES - REL 4 % (CELLAVISION)(BEAKER) (test wphb=6576) MONOCYTES - REL 3 % (CELLAVISION)(BEAKER) (test ygqk=2952) BANDS - REL 47 % 0-10 (CELLAVISION)(BEAKER) (test oosx=8610) NEUTROPHILS - ABS 2.58 K/ul 1.56-6.13 (CELLAVISION)(BEAKER) (test nokn=5434) LYMPHOCYTES - ABS 0.22 K/ul 1.18-3.74 (CELLAVISION)(BEAKER) (test lekb=4005) MONOCYTES - ABS 0.17 K/uL 0.24-0.36 (CELLAVISION)(BEAKER) (test vqoz=8994) BANDS - ABS 2.63 K/uL 0.00-0.80 (CELLAVISION)(BEAKER) (test ufzn=7606) TOTAL COUNTED (BEAKER) (test 100 ebug=3371) LARGE PLT(BEAKER) (test Present nydb=7595) TOXIC GRANULATION (BEAKER) Present (test bvyz=470) BASOPHILIC STIPPLING (BEAKER) Present (test wczp=381) ARTIFACT (CELLAVISION)(BEAKER) Present (test vznc=5895) PLATELET CONCENTRATION Decreased (CELLAVISION)(BEAKER) (test mfkh=2840) Green-Blue Neutrophilic inclusions seen.RAD, CHEST, 1 VIEW, NON [id number] 00:24:00Reason for exam:->sob, coughShould this be performed [...] Verified Date/ Time: 04/27/2018 00:24:54 Reading Location: [facility] B1 C013Y CT Body Reading Room PROTHROMBIN [id number] 23:51:00 Test Item Value Reference Range Comments PROTIME (BEAKER) (test taao=270) 15.5 seconds 11.7-14.7 INR (BEAKER) (test cpqc=401) 1.2 <=5.9 RECOMMENDED COUMADIN/WARFARIN INR THERAPY RANGESSTANDARD DOSE: 2.0 - 3.0 Includes: PROPHYLAXIS forvenous thrombosis, systemic embolization; TREATMENT for venous thrombosis and/or pulmonary embolus.HIGH RISK: Target INR is 2.5-3.5 for patients with mechanical heart valves.[id number] 23:51:00 Test Item Value Reference Range Comments FIBRINOGEN LEVEL (BEAKER) (test thov=390) 231 mg/dl 225-434
[2019-09-07] MEDS ORDERED: ALBUTEROL 2.5 MG/3 ML NEB SOL ONE (16:41)
[2019-09-07] MEDS ORDERED: NA CHLORIDE 0.9% 1,000 ML ONE (16:42)
[2019-09-07] MEDS ORDERED: DIAZEPAM 10 MG/2 ML INJ SYRINGE ONE (16:42)
--- NOTE | 2019-09-07 17:03 | RAD REPORT ---
EXAM DESCRIPTION: Britany Single View09/07/2019 4:46 pm CLINICAL HISTORY: Chest pain COMPARISON: September 2018 FINDINGS: The lungs appear clear of acute infiltrate. The heart is normal size IMPRESSION: No acute abnormalities displayed
--- NOTE | 2019-09-07 17:03 | RAD REPORT ---
EXAM DESCRIPTION: CT - Head C Spine Cap Wo Con - 09/07/2019 4:37 pm TECHNIQUE: Computed axial tomography of the head and cervical spine was obtained. Coronal and sagitt al reconstruction was performed Computed axial tomography of the chest, abdomen and pelvis was obtained. Contrast was not requested. All CT scans are performed using dose optimization technique as appropriate and may include automated exposure control or mA/KV adjustment according to patient size. CLINICAL HISTORY: Head and neck injury with chest and abdominal pain status post fall COMPARISON: CT abdomen September 2018 FINDINGS: 1 An intracranial bleed is not seen. The ventricles are normal in caliber. An extra-axial fluid collection is not noted. A 16 millimeter i sodense structure is present within the anterior aspect of left posterior cranial fossa abutting the posteromedial aspect of the left petrousbone Fluid within the sinuses/mastoids is not seen. A cervical fracture is not seen. No dislocation is noted. Loss of the normal lordosis may be secondar y to muscle spasm The evaluation of mediastinum, zelalem, vessels, solid organs and bowel are limited secondary to the lac k of contrast administration. A mediastinal hematoma is not noted. A pleural effusion is not seen. A lung contusion is not present. spleen, pancreas, adrenals,kidneys and bladder appear grossly normal. Liver is enlarged with marked fatty infiltration. Periumbilical hernia to the right of midline contains a loop of nondilated small bowel. The neck sushil ures 1 centimeter IMPRESSION: 1.. 16 millimeter soft tissue structure within the anterior left posterior cranial fossa abuts the pe trous bone. It may represent a meningioma. It is recommended that the patient have a MRI with contras t for further evaluation 2. A cervical fracture is not visualized. 3. No traumatic abnormality involving the chest/abdomen/pelvis.
[2019-09-07 17:40] LABS: Absolute Lymphocytes (CBC) 1.5 K/uL (0.7-4.9); Basophils % 2.2 % (0-1.3); Hematocrit 38.8 % (36.0-45.0); MPV 7.6 fL (7.6-11.3); RBC Red Blood Cell Count 3.99 M/uL (3.86-4.86)
[2019-09-07 17:52] LABS: Protime INR 0.91
[2019-09-07 18:05] LABS: ALT/SGPT 53 U/L (12-78); AST/SGOT 126 U/L (15-37); Albumin 3.2 g/dL (3.4-5.0); Alkaline Phosphatase 91 U/L (45-117); BUN Blood Urea Nitrogen 9 mg/dL (7-18); Bicarbonate 30 mmol/L (21-32); Bilirubin Direct 0.2 mg/dL (0-0.2); Bilirubin Total 0.5 mg/dL (0.2-1.0); Glucose Level 145 mg/dL (74-106); Magnesium 1.7 mg/dL (1.8-2.4); NT PRO-BNP 27 pg/mL (<125); Protein, Total 6.8 g/dL (6.4-8.2); Sodium Level 143 mmol/L (136-145); Troponin (Emerg Dept Use Only) < 0.02 ng/mL (0.0-0.045)
[2019-09-07 18:11] LABS: Potassium 2.9 mmol/L (3.5-5.1)
[2019-09-07] MEDS ORDERED: KCL 20 MEQ/100 mL IVPB 20 MEQ/100 ML BAG IV ONE (18:21)
[2019-09-07] MEDS ORDERED: POTASSIUM 25 MEQ EFFERV TAB ONE (19:34)
--- NOTE | 2019-09-07 19:50 | ER ---
Nurse's Notes [facility] Name: Madelaine Leonard Age: 58 yrs Sex: Female : 1960 Arrival Date: 09/07/2019 Time: 15:50 Bed 5 Private MD: Diagnosis: Alcohol abuse with intoxication;Hypokalemia;Fall on same level, unspecified;Chronic obstructive pulmonary disease, unspecified Presentation: 09/07 16:00 Presenting complaint: Child states: She's fallen over the past few days a couple times jl7 and has multiple bruises. Transition of care: patient was not received from another setting of care. Onset of symptoms was September 07, 2019. Risk Assessment: Do you want to hurt yourself or someone else? Patient reports no desire to harm self or others. Initial Sepsis Screen: Does the patient meet any 2 criteria? No. Patient's initial sepsis screen is negative. Does the patient have a suspected source of infection? No. Patient's initial sepsis screen is negative. Care prior to arrival: None. 16:00 Method Of Arrival: Ambulatory jl7 16:00 Acuity: DEV 3 jl7 Historical: - Allergies: 16:28 Latex, Natural Rubber; jl7 16:28 Levofloxacin; jl7 16:28 Naproxen Sodium; jl7 16:28 PENICILLINS; jl7 - Home Meds: 16:28 None [Active]; jl7 - PMHx: 16:28 Chronic pain; jl7 - PSHx: 16:28 Hysterectomy; Hernia repair; jl7 - Immunization history:: Adult Immunizations not up to date. - Coronavirus screen:: The patient has NOT traveled to [place], [place], or [place] in the past 14 days. Proceed with normal triage process as indicated. - Social history:: Smoking status: Patient reports the use of cigarette tobacco products, smokes one-half pack cigarettes per day, Patient uses alcohol, on a daily basis. patient/guardian reports chronic longstanding heavy alcohol consumption. - Ebola Screening: : No symptoms or risks identified at this time. Screenin:45 Abuse screen: Denies threats or abuse. Denies injuries from another. Nutritional jl7 screening: No deficits noted. Tuberculosis screening: No symptoms or risk factors identified. Fall Risk Fall in past 12 months (25 points). Secondary diagnosis (15 points) impaired mobility, IV access (20 points). Ambulatory Aid- None/Bed Rest/Nurse Assist (0 pts). Gait- Impaired (20 pts.). Mental Status- Overestimates/Forgets Limitations (15 pts.). Total Poole Fall Scale indicates High Risk Score (45 or more points). Fall prevention measures have been instituted. Side Rails Up X 2 Placed Close to Nursing Station Frequent Obs/Assessments Occuring Family Present and informed to notify staff if the need to leave the bedside As available patient and family educated on Fall Prevention Program and Strategies. Assessment: 16:20 General: Appears uncomfortable, Behavior is cooperative. Pain: Denies pain. Neuro: jl7 Level of Consciousness is awake, alert, obeys commands. Cardiovascular: Patient's skin is warm and dry. Respiratory: Airway is patent Respiratory effort is even, unlabored, Respiratory pattern is regular, symmetrical. Derm: Skin is pink, warm \T\ dry. Decubitus located on sacrum approximately 2.6 cm to 7.5 cm is stage II. 17:00 Reassessment: Patient appears in no apparent distress at this time. No changes from jl7 previously documented assessment. Patient and/or family updated on plan of care and expected duration. Pain level reassessed. Patient is alert, oriented x 3, equal unlabored respirations, skin warm/dry/pink. 17:57 Reassessment: Pt unable to provide urine sample at this time. Bedside commode remains jl7 in room, pt's family instructed to assist when pt is able to provide urine, family verbalizes understanding. 18:30 Reassessment: Pt laying in bed with eyes closed, respirations even and unlabored, no jl7 signs of distress noted. 19:35 General: Appears in no apparent distress. Behavior is appropriate for age. Pain: Denies ea pain. Neuro: Level of Consciousness is awake, alert, obeys commands, Oriented to person, place, situation. Cardiovascular: Patient's skin is warm and dry. Respiratory: Airway is patent Respiratory effort is even, unlabored, Respiratory pattern is regular, symmetrical. Derm: Skin is pink, warm \T\ dry. Bruising that is dark purple, right eye. 20:04 Reassessment: Patient and/or family updated on plan of care and expected duration. Pain ea level reassessed. Patient is alert, oriented x 3, equal unlabored respirations, skin warm/dry/pink. 20:15 Reassessment: Patient and/or family updated on plan of care and expected duration. Pain ea level reassessed. Patient is alert, oriented x 3, equal unlabored respirations, skin warm/dry/pink. Pt ambulating with standby assist, tolerating well. 20:35 Reassessment: Patient and/or family updated on plan of care and expected duration. Pain ea level reassessed. Patient is alert, oriented x 3, equal unlabored respirations, skin warm/dry/pink. Discharge instruction given to pt and family, both verbalized the understanding of instruction. Pt left ED via wheelchair assisted by son, pt tolerating well. Vital Signs: 16:28 BP 123 / 61; Pulse 96; Resp 16 S; Temp 99(O); Pulse Ox 90% on R/A; jl7 17:48 BP 115 / 74; Pulse 99; Resp 19 S; Pulse Ox 90% on 2 lpm NC; jl7 19:18 BP 123 / 71; Pulse 106; Resp 18; Temp 98.4(O); Pulse Ox 93% on 4 lpm NC; jb5 20:05 BP 146 / 79; Pulse 106; Resp 18; Pulse Ox 96% ; ea 20:15 BP 136 / 76; Pulse 98; Resp 18; Temp 98.2; Pulse Ox 98% on R/A; ea ED Course: 15:50 Patient arrived in ED. as 15:51 [facility]varez [facility] snw 15:51 Ferdinand Valladares MD is Attending Physician. snw 16:21 Samson Jones RN is Primary Nurse. jl7 16:22 Triage completed. jl7 16:25 Missed attempt(s): 20 gauge in right forearm. Bleeding controlled, band aid applied, jl7 catheter tip intact. 16:28 Arm band placed on right wrist. jl7 16:30 Patient has correct armband on for positive identification. Placed in gown. Bed in low jl7 position. Call light in reach. Side rails up X2. Adult w/ patient. alarm security or surveillance monitor on. Pulse ox on. NIBP on. Warm blanket given. 16:37 CT completed. Patient moved back from CT. mw3 16:37 CT Traumagram (Head C Spine CAP wo con) In Process Unspecified. EDMS 16:46 XRAY Chest (1 view) In Process Unspecified. 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 jl7 17:20 Initial lab(s) drawn, by me, sent to lab. Inserted saline lock: 22 gauge in right hand, jl7 using aseptic technique. Blood collected. 19:17 Pillow given. Patient given wipes while on the bedside commode. jb5 19:17 Urine Culture Sent. jb5 19:17 Urine Microscopic Only Sent. jb5 20:04 No provider procedures requiring assistance completed. ea 20:15 IV discontinued, intact, bleeding controlled, No redness/swelling at site. Pressure ea dressing applied. Administered Medications: 16:35 Drug: Albuterol 2.5 mg Route: Inhalation; jl7 16:40 Drug: Albuterol 2.5 mg Route: Inhalation; jl7 17:00 Drug: Albuterol 2.5 mg Route: Inhalation; jl7 19:14 Follow up: Response: No adverse reaction jl7 17:40 Drug: NS 0.9% 1000 ml Route: IV; Rate: 1 bolus; Site: right hand; jl7 19:14 Follow up: IV Status: Completed infusion; IV Intake: 1000ml jl7 17:40 Drug: Valium 5 mg Route: IVP; Site: right hand; jl7 18:20 Follow up: Response: No adverse reaction jl7 18:11 Drug: Banana Bag - (NS 0.9% 1000 ml, foLIC Acid 1 mg, Thiamine 100 mg, Multivitamin 1 ae4 amp) Route: IV; Rate: 250 ml/hr; Site: right hand; 20:35 Follow up: Response: No adverse reaction; IV Status: Completed infusion; IV Intake: ea 500ml 18:19 Drug: Potassium Chloride 20 mEq Route: IV; Rate: calculated rate; Site: right hand; jl7 20:05 Follow up: Response: No adverse reaction; IV Status: Completed infusion ea 19:34 Drug: Potassium Effervescent Tablet 50 mEq Route: PO; ea 20:05 Follow up: Response: No adverse reaction ea 20:34 Drug: Valium 10 mg Route: PO; ea 20:34 Follow up: Response: Medication administered at discharge. ea Intake: 19:14 IV: 1000ml; Total: 1000ml. jl7 20:35 IV: 500ml; Total: 1500ml. ea Outcome: 19:49 Discharge ordered by . snw 20:37 Discharged to home via wheelchair, with family. ea 20:37 Condition: stable 20:37 Discharge instructions given to patient, family, Instructed on discharge instructions, follow up and referral plans. medication usage, Demonstrated understanding of instructions, medications, Prescriptions given X 1. 20:38 Patient left the ED. ea Signatures: Dispatcher [employer] EDMS Siobhan Alvarez, [employer]-CsnEmma Edmondson Jennifer jb5 Samson Jones RN RN jl7 Alba Castrejon RN RN Yuni Morelos mw3 Brad Hager RN RN ae4 Corrections: (The following items were deleted from the chart) 18:11 18:10 Banana Bag - (Multivitamin 1 amp, NS 0.9% 1000 ml, Thiamine 100 mg, foLIC Acid 1 ae4 mg) IV at 250 ml/hr in right antecubital ae4
--- NOTE | 2019-09-07 19:51 | EDPHYS ---
Physician Documentation [facility] Name: Madelaine Leonard Age: 58 yrs Sex: Female : 1960 Arrival Date: 09/07/2019 Time: 15:50 Bed 5 Private MD: ED Physician Ferdinand Valladares HPI: 09/07 19:41 This 58 yrs old Female presents to ER via Ambulatory with complaints of Fall snw Injury. 19:41 Details of fall: The patient fell from an upright position, while standing. Onset: The snw symptoms/episode began/occurred suddenly, 3 day(s) ago, and became persistent. Associated injuries: The patient sustained injury to the head, contusion, Denies LOC. Severity of symptoms: At their worst the symptoms were moderate. The patient has experienced similar episodes in the past. The patient has not recently seen a physician, no medications for Lupus, Fibromyalgia since June, Pt drinks Vodka daily. 4 liters and 1 pint in past 4 days. Historical: - Allergies: 16:28 Latex, Natural Rubber; jl7 16:28 Levofloxacin; jl7 16:28 Naproxen Sodium; jl7 16:28 PENICILLINS; jl7 - Home Meds: 16:28 None [Active]; jl7 - PMHx: 16:28 Chronic pain; jl7 - PSHx: 16:28 Hysterectomy; Hernia repair; jl7 - Immunization history:: Adult Immunizations not up to date. - Coronavirus screen:: The patient has NOT traveled to [place], [place], or [place] in the past 14 days. Proceed with normal triage process as indicated. - Social history:: Smoking status: Patient reports the use of cigarette tobacco products, smokes one-half pack cigarettes per day, Patient uses alcohol, on a daily basis. patient/guardian reports chronic longstanding heavy alcohol consumption. - Ebola Screening: : No symptoms or risks identified at this time. ROS: 19:43 ENT: Negative for injury, pain, and discharge, Neck: Negative for injury, pain, and snw swelling, Cardiovascular: Negative for chest pain, palpitations, and edema, Respiratory: Negative for shortness of breath, cough, wheezing, and pleuritic chest pain. 19:43 Back: Negative for injury and pain, : Negative for injury, bleeding, discharge, and swelling, MS/Extremity: Negative for injury and deformity, Skin: Negative for injury, rash, and discoloration, Neuro: Negative for headache, weakness, numbness, tingling, and seizure. 19:43 Constitutional: Positive for malaise, poor PO intake, except ETOH. 19:43 Eyes: Positive for injury or acute deformity, bruising. 19:43 Abdomen/GI: Positive for abdominal pain, from hernia intermittently. 19:43 Psych: Positive for alcohol dependence, fecal incontinence, frequent falls. Exam: 19:37 Neck: Trachea midline, no thyromegaly or masses palpated, and no cervical snw lymphadenopathy. Supple, full range of motion without nuchal rigidity, or vertebral point tenderness. No Meningismus. 19:37 Chest/axilla: Normal chest wall appearance and motion. Nontender with no deformity. No lesions are appreciated. 19:37 Back: No spinal tenderness. No costovertebral tenderness. Full range of motion. Skin: Warm, dry with normal turgor. Normal color with no rashes, no lesions, and no evidence of cellulitis. MS/ Extremity: Pulses equal, no cyanosis. Neurovascular intact. Full, normal range of motion. Neuro: Awake and alert, GCS 15, oriented to person, place, time, and situation. Cranial nerves II-XII grossly intact. Motor strength 5/5 in all extremities. Sensory grossly intact. Cerebellar exam normal. Normal gait. 19:37 Constitutional: The patient appears alert, frail, smells of alcohol, unkempt. 19:37 Head/face: Noted is contusion, that is deep, of the right eye. 19:37 Eyes: Conjunctiva: chemosis, that is mild, that is moderate, in right eye, at 3 o'clock. 19:37 ENT: External ear(s): are unremarkable, Ear canal(s): are normal, TM's: are normal, Nose: is normal, Mouth: Oral mucosa: noted to have obvious stomatitis, Tongue: ames red, Posterior pharynx: erythema, that is moderate, Voice: is normal. 19:37 Cardiovascular: Rate: tachycardic, Rhythm: regular, Heart sounds: normal, Edema: is not appreciated. 19:37 Respiratory: the patient does not display signs of respiratory distress, Respirations: pursed lip breathing, that is moderate, Breath sounds: wheezing: expiratory is heard diffusely, spo2 90-93%. 19:37 Abdomen/GI: Inspection: distension, that is mild, obese Bowel sounds: normal, Palpation: moderate abdominal tenderness, in the right upper quadrant and right lower quadrant, organomegaly is appreciated, hepatomegaly, Liver: is enlarged, palpable 1 cm(s) below rib margin, Hernia: noted in the paraumbilical area and umbilical area. 19:37 Psych: Behavior/mood is pleasant, cooperative, Affect is calm, Oriented to person, place, time, Judgement / Insight is impaired. by ETOH. Vital Signs: 16:28 BP 123 / 61; Pulse 96; Resp 16 S; Temp 99(O); Pulse Ox 90% on R/A; jl7 17:48 BP 115 / 74; Pulse 99; Resp 19 S; Pulse Ox 90% on 2 lpm NC; jl7 19:18 BP 123 / 71; Pulse 106; Resp 18; Temp 98.4(O); Pulse Ox 93% on 4 lpm NC; jb5 20:05 BP 146 / 79; Pulse 106; Resp 18; Pulse Ox 96% ; ea 20:15 BP 136 / 76; Pulse 98; Resp 18; Temp 98.2; Pulse Ox 98% on R/A; ea MDM: 15:55 Patient medically screened. snw 19:51 Data reviewed: vital signs, nurses notes. Data interpreted: Pulse oximetry: on room air snw is 93 %. Interpretation: acceptable. Counseling: I had a detailed discussion with the patient and/or guardian regarding: the historical points, exam findings, and any diagnostic results supporting the discharge/admit diagnosis, lab results, radiology results, the need for outpatient follow up, to return to the emergency department if symptoms worsen or persist or if there are any questions or concerns that arise at home, smoking cessation. Response to treatment: the patient's symptoms have markedly improved after treatment. Special discussion: Based on the patient's history, exam and DX evaluation, there is no indication for emergent intervention or inpatient TX. It is understood by the patient/guardian that if the SXs persist or worsen they need to return immediately for re-evaluation. Based on the history and exam findings, there is no indication for further emergent testing or inpatient evaluation. I discussed with the patient/guardian the need to see the primary care provider for further evaluation of the symptoms. 09/07 16:07 Order name: Basic Metabolic Panel; Complete Time: 18:12 09/07 16:07 Order name: CBC with Diff; Complete Time: 20:22 09/07 16:07 Order name: LFT's; Complete Time: 18:12 09/07 16:07 Order name: Magnesium; Complete Time: 18:12 09/07 16:07 Order name: NT PRO-BNP; Complete Time: 18:12 09/07 16:07 Order name: PT-INR; Complete Time: 18:11 09/07 16:07 Order name: Troponin (emerg Dept Use Only); Complete Time: 18:12 09/07 16:07 Order name: Acetaminophen; Complete Time: 18:12 09/07 16:07 Order name: ETOH Level; Complete Time: 18:09 09/07 16:07 Order name: Salicylate; Complete Time: 17:53 09/07 16:07 Order name: Urine Drug Screen; Complete Time: 20:22 09/07 16:07 Order name: AMMONIA; Complete Time: 17:53 09/07 16:07 Order name: Hepatitis Panel 09/07 16:07 Order name: Urine Culture 09/07 16:07 Order name: CT Traumagram (Head C Spine CAP wo con); Complete Time: 17:24 09/07 16:07 Order name: XRAY Chest (1 view); Complete Time: 17:24 09/07 16:07 Order name: EKG; Complete Time: 16:08 09/07 16:07 Order name: Cardiac monitoring; Complete Time: 17:53 09/07 16:07 Order name: EKG - Nurse/Tech; Complete Time: 17:53 09/07 16:07 Order name: Urine Microscopic Only; Complete Time: 20:00 09/07 19:20 Order name: Urine Dipstick--Ancillary (enter results); Complete Time: 20:00 em1 09/07 20:12 Order name: CBC Smear Scan; Complete Time: 20:22 EDMS 09/07 16:07 Order name: IV Saline Lock; Complete Time: 17:54 09/07 16:07 Order name: Labs collected and sent; Complete Time: 17:54 snw 09/07 16:07 Order name: O2 Per Protocol; Complete Time: 17:54 snw 09/07 16:07 Order name: O2 Sat Monitoring; Complete Time: 17:54 snw 09/07 16:07 Order name: Urine Dipstick-Ancillary (obtain specimen); Complete Time: 19:17 snw EC:23 Rate is 104 beats/min. Rhythm is regular, Normal Sinus Rhythm with No ectopy. QRS [place] kdr is Normal. [place] interval is normal. Clinical impression: NSR w/ Non-specific ST/T Changes. Administered Medications: 16:35 Drug: Albuterol 2.5 mg Route: Inhalation; jl7 16:40 Drug: Albuterol 2.5 mg Route: Inhalation; jl7 17:00 Drug: Albuterol 2.5 mg Route: Inhalation; jl7 19:14 Follow up: Response: No adverse reaction jl7 17:40 Drug: NS 0.9% 1000 ml Route: IV; Rate: 1 bolus; Site: right hand; jl7 19:14 Follow up: IV Status: Completed infusion; IV Intake: 1000ml jl7 17:40 Drug: Valium 5 mg Route: IVP; Site: right hand; jl7 18:20 Follow up: Response: No adverse reaction 7 18:11 Drug: Banana Bag - (NS 0.9% 1000 ml, foLIC Acid 1 mg, Thiamine 100 mg, Multivitamin 1 ae4 amp) Route: IV; Rate: 250 ml/hr; Site: right hand; 20:35 Follow up: Response: No adverse reaction; IV Status: Completed infusion; IV Intake: ea 500ml 18:19 Drug: Potassium Chloride 20 mEq Route: IV; Rate: calculated rate; Site: right hand; jl7 20:05 Follow up: Response: No adverse reaction; IV Status: Completed infusion ea 19:34 Drug: Potassium Effervescent Tablet 50 mEq Route: PO; ea 20:05 Follow up: Response: No adverse reaction ea 20:34 Drug: Valium 10 mg Route: PO; ea 20:34 Follow up: Response: Medication administered at discharge. ea Disposition: 21:10 Co-signature as Attending Physician, Ferdinand Valladares MD I agree with the assessment and kdr plan of care. Disposition: 09/07/19 19:49 Discharged to Home. Impression: Alcohol abuse with intoxication, Hypokalemia, Fall on same level, unspecified, Chronic obstructive pulmonary disease, unspecified. - Condition is Stable. - Discharge Instructions: Alcohol Intoxication, Alcohol Withdrawal, Chronic Obstructive Pulmonary Disease, Potassium Content of Foods, Fall Prevention in the Home, Steps to Quit Smoking, Smoking Hazards, Alcohol Abuse and Nutrition, What You Need to Know About Alcohol Abuse and Dependence, Youth. - Prescriptions for chlordiazepoxide HCl 25 mg Oral capsule - take 1 capsule by ORAL route 3 times per day; 20 capsule. - Medication Reconciliation Form, Thank You Letter, Antibiotic Education, Prescription Opioid Use form. - Follow up: Emergency Department; When: As needed; Reason: Worsening of condition. Follow up: Private Physician; When: Tomorrow; Reason: Recheck today's complaints, Continuance of care, Re-evaluation by your physician. Signatures: Dispatcher [employer] [facility] Ferdinand Valladares MD MD kdr Therrien, Shelly, CUSTOMER CARE ASSISTANT-C CUSTOMER CARE ASSISTANT-Csnw Samson Jones RN RN jl7 Alba Castrejon RN RN ea Elliott, Andrea, RN RN ae4 Corrections: (The following items were deleted from the chart) 19:47 19:37 Abdomen/GI: Inspection: distension, that is mild, obese Bowel sounds: normal, snw Palpation: moderate abdominal tenderness, in the right upper quadrant and right lower quadrant, organomegaly is appreciated, hepatomegaly, Liver: is enlarged, palpable 1 cm(s) below rib margin, snw 20:12 17:50 Manual Differential ordered. [facility] 20:38 19:49 09/07/2019 19:49 Discharged to Home. Impression: Alcohol abuse with intoxication; ea Hypokalemia; Fall on same level, unspecified; Chronic obstructive pulmonary disease, unspecified. Condition is Stable. Forms are Medication Reconciliation Form, Thank You Letter, Antibiotic Education, Prescription Opioid Use. Follow up: Emergency Department; When: As needed; Reason: Worsening of condition. Follow up: Private Physician; When: Tomorrow; Reason: Recheck today's complaints, Continuance of care, Re-evaluation by your physician. snw
[2019-09-07 19:58] LABS: Urine Bacteria <20 /HPF (<20); Urine RBC <5 /HPF (NONE SEEN)
[2019-09-07 19:59] LABS: Calcium Oxalate Crystals- Ur FEW (NONE SEEN); Urine Culture Reflex Order NOT NEEDED
[2019-09-07 19:59] LABS: Urine Blood 1+ (NEG); Urine Glucose NEGATIVE (NEG); Urine Protein 2+ (NEG); Urine Specific Gravity 1.025 (1.005-1.030); Urine pH 6.5 (5.0-7.0)
[2019-09-07 20:09] LABS: Barbiturates NEGATIVE (NEGATIVE); Benzodiazepines NEGATIVE (NEGATIVE); Cocaine NEGATIVE (NEGATIVE); METHAMPHETAM NEGATIVE (NEGATIVE); Methadone NEGATIVE (NEGATIVE); Opiates NEGATIVE (NEGATIVE); Phencyclidine NEGATIVE (NEGATIVE); THC Cannibis POSITIVE (NEGATIVE)
[2019-09-07 20:12] LABS: Urine White Blood Cell Casts OK
[2019-09-07 20:13] LABS: Anisocytosis 1+; Blood Morphology Comment NOTED (NOT SEEN); Platelet Estimate DECR; Poikilocytosis 1+
[2019-09-07] MEDS ORDERED: DIAZEPAM 5 MG TABLET ONE (20:36)
[2019-09-07 20:48] VITALS: BP 136/76; TEMP 98.2; O2SAT 98
--- NOTE | 2019-09-08 06:57 | EKG ---
Test Date: 2019-09-07 Test Time: 17:32:51 Home Worker: BRENDA MEASUREMENT RESULTS: Intervals: Rate: 104 UT: 146 QRSD: 92 QT: 352 QTc: 462 [place]: P: 97 UT: 146 QRS: 83 T: 100 INTERPRETIVE STATEMENTS: Sinus tachycardia Nonspecific ST abnormality Abnormal ECG Compared to ECG 10/03/2018 16:14:08 ST (T wave) deviation now present Electronically Signed On 09-08-19 06:56:38 L[employer] APPRAISER by Sukhjinder Aguilar
[2019-09-08] MEDS ORDERED: MULTIVITAMINS IV SCH ×5 (09:00)
[2019-09-08] MEDS ORDERED: FOLIC ACID 1 MG, MULTIVITAMINS INJ 10 ML, THIAMINE HCL 100 MG in NA CHLORIDE 0.9% 1,000 ML IV ONE (09:00)
[2019-09-08] MEDS ORDERED: FOLIC ACID IV SCH ×5 (09:00)
[2019-09-08] MEDS ORDERED: [UNRECOGNIZED DRUG - OTHER] IV SCH ×5 (09:00)
[2019-09-08] MEDS ORDERED: THIAMINE HCL IV SCH ×5 (09:00)
== END 2019-09-07 20:38 | disposition home or self-care (01) ==
LOC: ER 15:49
DX: F10.129 Alcohol abuse with intoxication, unspecified (principal); E87.6 Hypokalemia; J44.9 Chronic obstructive pulmonary disease, unspecified; W18.30XA Fall on same level, unspecified, initial encounter; Y93.9 Activity, unspecified; Y92.9 Unspecified place or not applicable; Z88.0 Allergy status to penicillin; Z88.6 Allergy status to analgesic agent; Z91.040 Latex allergy status
CPT/HCPCS: 96365; 96361; 96368; 93005; 87088; 85025; 87086; 80048; 36415; 80320; 82140; 83735; 80329 ×2; 85610; 80076; 80307 ×8; 84484; 83880; 80074; 70450; 71250; 72125; 71045; 96375; 99285; J3360; J7030; 81003; 81015

== ENCOUNTER 2020-12-29 00:54 | Inpatient (IN) | payer OTHER ==
--- OUTSIDE RECORDS SUMMARY | 2020-12-29 01:05 | XMS REPORT | Continuity of Care Document ---
:1960 Author Organization [facility] t Address [address] [place] [address] Care Team Providers Name Role Phone Pcp Primary Care Physician Unavailable LALITO Attending Clinician Unavailable Doctor Unassigned, Name Attending Clinician Unavailable Edy COPELAND Attending Clinician Hany COPELAND Attending Clinician Tylor Sandoval MD Attending Clinician OMRANIAN Attending Clinician Unavailable Hany COPELAND Admitting Clinician OMRANIAN Admitting Clinician Unavailable Problems Condition Condition Condition Status Onset Resolution Last Treating Co mments Source Name Details Category Date Date Treatment Clinician Date GIB GIB Disease Active [facility] (gastroint (gastroint 2-22 [facility] - estinal estinal 00:00: Medical bleeding) bleeding) 00 Cent er Acute Acute Disease Active [facility] respirator respirator 2-22 [facility] - y distress y distress 00:00: Me dical 00 Center Systemic Systemic Disease Active [facility] inflammato inflammato 2-22 [facility] - ry ry 00:00: Medical response response 00 Center syndrome syndrome (SIRS) (SIRS) Shock Shock Disease Active [facility] 2-22 [facility] 00:[facility]: Medical 00 [place] NSTEMI NSTEMI Disease Active [facility] (non-ST (non-ST 2-22 [facility] - elevated elevated 00:00: Medica l myocardial myocardial 00 Ce nter infarction infarction ) ) (HFpEF) (HFpEF) Disease Active [facility] heart heart 9-18 [facility] - failure failure 00:00: Medical with with 00 Center preserved preserved ejection ejection fraction fraction Acute Acute Disease Active [facility] encephalop encephalop 9-18 [facility] - athy athy 00:00: Medical 00 Center Acute and Acute and Disease Active [facility] chronic chronic 9-18 [facility] - respirator respirator 00:00: Me dical y failure y failure 00 Cent er with with hypercapni hypercapni a a Alcohol Alcohol Disease Active [facility] abuse abuse 18 [facility] - 00:00: Medical 00 [place] Acute Acute Disease Active [facility] pancreatit pancreatit 9-14 [facility] - is is 00:00: Medical 00 [place] ENRIQUE (acute ENRIQUE (acute Disease Active [facility] kidney kidney 14 [facility] - injury) injury) 00:00: Medical 00 [place] Acute Acute Disease Active [facility] liver liver 9-14 [facility] - failure failure 00:00: Medical without without 00 Center hepatic hepatic coma coma Other Other Disease Active [facility] chronic chronic 9-14 [facility] - pain pain 00:00: Medical 00 [place] Left Left Problem Active Univers shoulder shoulder ity of pain pain [place] [facility] ans Closed Closed Problem Active Univers nondisplac nondisplac it y of ed ed [place] fracture fracture Physic i of greater of greater an s tuberosity tuberosity of left of left humerus, humerus, initial initial encounter encounter Closed Closed Problem Active Univers nondisplac nondisplac it y of ed ed [place] fracture fracture Physic i of greater of greater an s tuberosity tuberosity of right of right humerus humerus with with routine routine healing, healing, subsequent subsequent encounter encounter Allergies, Adverse Reactions, Alerts Allergy Allergy Status Severity Reaction(s) Onset Inactive Treating Comm ents Source Name Type Date Date Clinician Naproxen Propensi Active [facility] ty to 10-04 [facility] - adverse 00:00: Medical reaction 00 Center s Latex Propensi Active [facility] ty to 04-26 [facility] - adverse 00:00: Medical reaction 00 Center s Levoflox Propensi Active Itching [facility] acin ty to 04-26 [facility] - adverse 00:00: Medical reaction 00 Center s Penicill Propensi Active Hives [facility] ins ty to 04-26 [facility] - adverse 00:00: Medical reaction 00 Center s [place] Adverse Active Info Not [facility] in G Reaction Available [facility] Pot[facility]iu [facility] Naproxen Adverse Active Info Not [facility] Reaction Available [facility] Adverse Active Info Not [facility] Reaction Available [facility] Latex Adverse Active Info Not [facility] Reaction Available [facility] Family History Family Member Diagnosis Comments Start Date Stop Date Source Natural mother Hypertension [facility] Natural mother Lung disease [facility] Natural mother Cancer [facility] Natural father Heart disease [facility] Natural father Hypertension [facility] Social History Social Habit Start Date Stop Date Quantity Comments Source History of Cigarette Smoker [facility] tobacco use Medical Cent[facility] r Sex Assigned At [facility] Tobacco use and 2018-10-10 2018-10-10 Never used [facility] exposure 00:00:00 00:00:00 [facility] Alcohol intake 2018-10-10 2018-10-10 [facility]er [facility] (finding) Smoking Status Start Date Stop Date Source Former smoker 2018-10-10 00:00:00 2018-10-10 00:00:00 [facility] Medications Ordered Filled Start Stop Current Ordering Indication Dosage Frequency Signature Comments Components Source Medication Medication Date Date Medication? Clinician (SIG) Name Name Skelaxin Skelaxin 2019-0 2020- No [place] 1 tablet [facility] 04-06 [facility] - 00:00: 00:00 Memoria 00 :00 [facility] Pseudoeph-B Pseudoeph-B Yes Mich Take [address] romphen-DM romphen-DM 8-11 Dinero (Max 40 [facility] - 00:00: ml/24 [facility] 00 hours[facility] lisinopril 2019-0 Yes 10mg QD Take 1 [facility] (PRINIVIL,Z 3-04 tablet (10 [facility]es - ESTRIL) 10 00:00: mg total) Me dical MG tablet 00 by mouth Center daily. metoprolol 2019- Yes 50mg QD Take 1 [facility] (TOPROL-XL) 3-04 tablet (50 Ying kes - 50 MG 24 hr 00:00: mg total) M edical tablet 00 by mouth Center daily. pantoprazol Yes 40mg QD Take [address] [facility] [facility] e 3-04 tablet (40 [facility] - (PROTONIX) 00:00: mg total) Me dical 40 MG 00 by mouth Center tablet daily. gabapentin 2018-0 Yes 800mg Q.25D Take [address] (NEURONTIN) 9-06 mg by [facility] - 800 MG 00:00: mouth 4 Medical tablet 00 (four) Center times daily. HYDROcodone 2018-0 Yes 1{tbl} Take [address] -acetaminop 9-06 tablet by [facility] shira sidhu (NORCO 00:00: mouth 3 Medi josé 10-325) 00 (three) Center 10-325 mg times per tablet daily as needed. metaxalone 2018-0 Yes 800mg Take [address] (SKELAXIN) 9-06 mg by [facility] - 800 MG 00:00: mouth Medical tablet 00 every 6 Center (six) hours. morphine 2018-0 Yes 60mg Q.5D Take [address] (MS CONTIN) 9-06 by mouth 2 Ying kes - 60 MG 12 hr 00:00: (two) Medic al tablet 00 times Center daily. ondansetron 2018-0 Yes 8mg QD Take [address] (ZOFRAN) 4 9-06 by mouth [facility] - MG tablet 00:00: daily. Medica l 00 Center PROAIR HFA 2018-0 Yes 2{puff} Inhale [address] [facility] 90 7-05 puffs by [facility] - mcg/actuati 00:00: mouth via M edical on inhaler 00 inhaler Center every 6 (six) hours as needed. Quetiapine Quetiapine Yes Mich take one [facility] Fumarate Fumarate [facility] -1 [facility] - tablet(s) Memoria l Outpati ent Clinics Lisinopril- Lisinopril- Yes Mihc [address] Hydrochloro Hydrochloro Dinero [facility] - thiazide thiazide [facility]ics Potassium Potassium Yes Mich TAKE [address] Chloride ER Chloride ER Dinero TABLET BY [facility] - MOUTH Memoria DAILY l Outpati ent Clinics Oxcarbazepi Oxcarbazepi Yes Mich TAKE ONE [facility] ne ne Dinero (1) [facility] - TABLET(S) Memoria BY MOUTH l TWICE A Outpati DAY. ent Clinics Gabapentin Gabapentin Yes [place] take one [facility] Dinero -1 [facility] - tablet(s) Memoria by mouth l four times Outpati a day. ent Clinics Lisinopril Lisinopril Yes Mich [address] [facility] Dinero [facility] HydrOXYzine HydrOXYzine Yes Mich TAKE ONE [facility] HCl HCl [facility]ero (1) [facility] - TABLET(S) Memoria BY MOUTH l THREE Outpati TIMES A ent DAY Clinics NEEDED FOR ANXIETY. Glide Glide Yes Mich TAKE ONE [facility] Carbonate Carbonate Dinero (1) Luke s - CAPSULE(S) Memoria BY MOUTH l THREE Outpati TIMES A ent DAY. Clinics Immunizations Ordered Immunization Filled Immunization Date Status Commen ts Source Name Name Influenza Four-QIV 2018-10-[address] [facility] - Non-PF 5+ YR 00:00:00 Medical Cent er Pneumococcal 2018-10-[address] [facility] - Conjugate (Prevnar) 00:00:00 [facility] 13-Valent Procedures This patient has no known procedures. Plan of Care Planned Activity Planned Date Details Comments Source Future Scheduled 2021-10-[address] [facility] - Test 00:00:00 (procedure) [code = [facility] [id number]] Future Scheduled 2020-04-13 INFLUENZA VACCINE (#1) [facility] - Test 00:00:00 [code = INFLUENZA Medical Ce nter VACCINE (#1)] Future Scheduled 2018-12-[address] [facility] - Test 00:00:00 0-64 YRS (1 of 1 - Medical C enter PPSV23) [code = PNEUMOCOCCAL VACCINE 0-64 YRS (1 of 1 - PPSV23)] Future Scheduled 2005-02-[address] [facility] - Test 00:00:00 WELLNESS (YEAR 2 or Medical Center FIRST YEAR if no IPPE) [code = MEDICARE ANNUAL WELLNESS (YEAR 2 or FIRST YEAR if no IPPE)] Future Scheduled [address] [facility] es - Test 00:00:00 [facility] breast (procedure) [code = 934653844] Future Scheduled [address] [facility] - Test 00:00:00 [facility] colon (procedure) [code = 744446241] Encounters Start End Encounter Admission Attending Care Care Encounter Source Date/Time Date/Time Type Type Clinicians Facility Department ID 2020-06-04 Outpatient NEW ENCCLR ENCCLR [id number] EN CCLR 14:27:33 ADMISSION 2020-12-17 2020-12-17 Outpatient STLMLC [facility] [id number] [facility] 2020-12-15 2020-12-15 Outpatient STLMLC [facility]ML[facility] [id number] [facility] 2020-11-29 2020-11-29 Outpatient [facility]LMLC [facility] [id number] [facility] 2020-11-24 2020-11-24 Outpatient STLMLC [facility]LML[facility] [id number] [facility] 2020-11-01 2020-11-01 Outpatient STLMLC [facility] [id number] [facility] 2020-09-01 2020-09-01 Outpatient STLMLC [facility]ML[facility] [id number] [facility] 2020-09-01 2020-09-01 Outpatient STLMLC [facility] [id number] [facility] 2020-08-19 2020-08-19 [facility] 7 [id number] Univers 10:45:00 10:45:00 t; Mireille JIMÉNEZ M.D. [place] STEPHEN, Physici M.D. ans 2020-08-18 2020-08-18 Outpatient STLMLC STLMLC [id number] [facility] 2020-08-16 2020-08-16 Orders Doctor EVANS [id number] 00:00:00 00:00:00 Only Unassigned, YOMI [id number] [place] [facility] [id number] 2020-07-26 2020-07-26 Outpatient STLMLC [facility]LMLC [id number] [facility] 2020-07-15 2020-07-15 [facility] 7 [id number] [facility] 13:15:00 13:15:00 t; Mireille JIMÉNEZ M.D. [place] STEPHEN, Physici M.D. ans 2020-07-15 2020-07-15 Outpatient STLMLC STLMLC [id number] [facility] 2020-07-14 2020-07-14 Outpatient STLMLC [facility]ML[facility] [id number] [facility] 2020-07-06 2020-07-06 Outpatient [facility]LMLC [facility] [id number] [facility] 2020-07-01 2020-07-01 Outpatient STLMLC [facility] [id number] [facility] 2020-06-30 2020-06-30 Outpatient [facility]LMLC [facility] [id number] [facility] 2020-06-16 2020-06-16 [facility] [id number] [facility] 2020-06-15 2020-06-15 [facility] 7 [id number] Univers 15:30:00 15:30:00 Mireille Hatch M.D. [place] Denis JIM[facility]Z [facility] 2020-06-04 2020-06-04 [facility] [id number] [facility] 2020-05-20 2020-05-26 [facility] Josee Snow [id number] 14:41:00 19:55:00 Encounter Hany Regina Daley [id number] [facility] [id number] 2020-04-26 2020-04-26 [facility] [id number] [address] 14:21:00 14:21:[place] [address] [facility] - Drive [facility] Medicine Outpati ent Clinics 2020-04-07 2020-04-07 [facility] [id number] [address] 08:03:00 08:03:00 [place] [address] Luke s - Drive [facility] Medicine Outpati ent Clinics 2020-04-06 2020-04-06 [facility] [id number] 14:45:00 14:45:00 [place] [address] Luke s - Drive [facility] l Medicine Outpati ent Clinics 2020-03-23 2020-03-23 [facility] [id number] 13:45:00 13:45:00 [place] [address] Luke s - Drive [facility] Medicine l Medicine Outpati ent Clinics 2020-03-22 2020-03-22 [facility] [id number] 14:18:00 14:18:00 [place] [address] Luke s - Drive [facility] l Medicine Outpati ent Clinics 2020-03-18 2020-03-18 [facility] [id number] 17:11:00 17:11:00 [facility] 2020-03-16 2020-03-16 Outpatient Bebe Spencet [id number] 15:15:00 15:15:00 [facility] ent [facility] 2020-03-12 2020-03-12 Outpatient Bebe Spencet [id number] 13:47:00 13:47:00 [facility] ent [facility] Results Test Description Test Time Test Comments Results Result Sourc e Comments [U] XRAY Images acquired, Universi ty of SHOULDER MIN 2 7 not reported on [place] S LEFT [id number] 10:48:00 this accession Physic ians number. [U] XRAY Images acquired, Universi ty of SHOULDER MIN 2 3 not reported on [place] S LEFT [address] 13:19:00 this accession Physic ians number. [U] XRAY Images acquired, Universi ty of SHOULDER MIN 2 3 not reported on [place] S LEFT [address] 16:04:00 this accession Physic ians number. RAD, Reason for FINAL REPORT ABDOMEN/KUB, 1 4 exam:->nausea PATIENT ID: VIEW AP 08:21:00 Is the [id number] TECHNIQUE: patient Single View of the ?->No Abdomen. INDICATION: Nausea. COMPARISON: Radiographs from 10/12/2018 and 05/05/2018. FINDINGS/IMPRESSION : A nonaggressive appearing sclerotic density over the right greater trochanter is unchanged and likely due to overlapping structures. There is a paucity of small bowel gas. However, overall this is likely a normal bowel gas pattern with some gas in the colon and rectum. Signed: Gilberto Gonsalez MDReport Verified Date/Time: 10/14/2018 08:21:37 Reading Location: [facility] Radiology Reading Room W/PLT COUNT & AUTO DIFFERENTIAL 2018-10-14 08:18:00 Test Item Value Reference Range Interpretation Comme nts WHITE BLOOD CELL COUNT (BEAKER) (test code = 775) 5.5 K/ L 3.5- 10.5 RED BLOOD CELL COUNT (BEAKER) (test code = 761) 3.44 M/ L 3.93-5 .22 L HEMOGLOBIN (BEAKER) (test code = 410) 10.7 GM/DL 11.2-15.7 L HEMATOCRIT (BEAKER) (test code = 411) 35.5 % 34.1-44.9 MEAN CORPUSCULAR VOLUME (BEAKER) (test code = 753) 103.2 fL 79. 4-94.8 H MEAN CORPUSCULAR HEMOGLOBIN (BEAKER) (test code = 751) 31.1 pg 25.6-32.2 MEAN CORPUSCULAR HEMOGLOBIN CONC (BEAKER) (test code = 752) 30.1 GM/DL 32.2-35.5 L RED CELL DISTRIBUTION WIDTH (BEAKER) (test code = 412) 17.2 % 11.7-14.4 H PLATELET COUNT (BEAKER) (test code = 756) 326 K/CU MM 150-450 MEAN PLATELET VOLUME (BEAKER) (test code = 754) 9.1 fL 9.4-12 .3 L NUCLEATED RED BLOOD CELLS (BEAKER) (test code = 413) 0 /100 WBC 0 -0 (CELLAVISION MANUAL DIFF)2018-10-14 08:18:00 Test Item Value Reference Range Interpretation Comments NEUTROPHILS - REL 8 % (CELLAVISION)(BEAKER) (test code = 2816) LYMPHOCYTES - REL 64 % (CELLAVISION)(BEAKER) (test code = 2817) MONOCYTES - REL 21 % (CELLAVISION)(BEAKER) (test code = 2818) EOSINOPHILS - REL 6 % (CELLAVISION)(BEAKER) (test code = 2819) BASOPHILS - REL 2 % (CELLAVISION)(BEAKER) (test code = 2820) NEUTROPHILS - ABS 0.44 K/ul 1.56-6.13 L (CELLAVISION)(BEAKER) (test code = 2830) LYMPHOCYTES - ABS 3.52 K/ul 1.18-3.74 (CELLAVISION)(BEAKER) (test code = 2831) MONOCYTES - ABS 1.16 K/uL 0.24-0.36 H (CELLAVISION)(BEAKER) (test code = 2832) EOSINOPHILS - ABS 0.33 K/uL 0.04-0.36 (CELLAVISION)(BEAKER) (test code = 2834) BASOPHILS - ABS 0.11 K/uL 0.01-0.08 H (CELLAVISION)(BEAKER) (test code = 2835) TOTAL COUNTED (BEAKER) (test code = 100 1351) PLT MORPHOLOGY (BEAKER) (test code Normal = 486) SMUDGE CELLS (BEAKER) (test code = Present 1371) ANISOCYTOSIS (BEAKER) (test code = 1+ few 961) MACROCYTES (BEAKER) (test code = 1+ few 964) ARTIFACT (CELLAVISION)(BEAKER) Present (test code = 3432) PLATELET CONCENTRATION Adequate (CELLAVISION)(BEAKER) (test code = 3438) Received comment: User comments: Slide comments:BASIC METABOLIC [id number] 06:23:00 Test Item Value Reference Range Interpretation Comments SODIUM (BEAKER) 140 meq/L 136-145 (test code = 381) POTASSIUM (BEAKER) 4.6 meq/L 3.5-5.1 (test code = 379) CHLORIDE (BEAKER) 104 meq/L 98-107 (test code = 382) CO2 (BEAKER) (test 27 meq/L 22-29 code = 355) BLOOD UREA NITROGEN 9 mg/dL 7-21 (BEAKER) (test code = 354) CREATININE (BEAKER) 0.62 mg/dL 0.57-1.25 (test code = 358) GLUCOSE RANDOM 190 mg/dL 70-105 H (BEAKER) (test code = 652) CALCIUM (BEAKER) 9.4 mg/dL 8.4-10.2 (test code = 697) EGFR (BEAKER) (test 100 mL/min/1.73 ESTIM ATED GFR IS code = 1092) sq m NOT ACCURATE CREATININE CLEARANCE IN PREDICTING GLOMERULAR FILTRATION RATE . ESTIMATED GFR I S NOT APPLICABLE FOR DIALYSIS PATIEN TS. [id number] 09:49:00 Test Item Value Reference Range Interpretation Comments LIPASE (BEAKER) (test code = 749) 37 U/L 8-78 HEPATIC FUNCTION [id number] 09:49:00 Test Item Value Reference Range Interpretation Comments TOTAL PROTEIN (BEAKER) (test code = 6.3 gm/dL 6.0-8.3 770) ALBUMIN (BEAKER) (test code = 1145) 3.6 g/dL 3.5-5.0 BILIRUBIN TOTAL (BEAKER) (test code 0.3 mg/dL 0.2-1.2 = 377) BILIRUBIN DIRECT (BEAKER) (test 0.1 mg/dL 0.1-0.5 code = 706) ALKALINE PHOSPHATASE (BEAKER) (test 86 U/L 40-150 code = 346) AST (SGOT) (BEAKER) (test code = 51 U/L 5-34 H 353) ALT (SGPT) (BEAKER) (test code = 39 U/L 6-55 347) (MANUAL DIFFERENTIAL)2018-10-13 08:53:00 Test Item Value Reference Range Interpretation Comments NEUTROPHILS - REL (DIFF) (BEAKER) 43 % (test code = 1359) LYMPHOCYTES - REL (DIFF) (BEAKER) 34 % (test code = 1360) MONOCYTES - REL (DIFF) (BEAKER) 16 % (test code = 1361) EOSINOPHILS - REL (DIFF) (BEAKER) 2 % (test code = 1362) BASOPHILS - REL (DIFF) (BEAKER) 0 % (test code = 1363) MYELOCYTES-REL (DIFF) (BEAKER) 1 % 0-0 H (test code = 1594) ATYPICAL LYMPHOCYTE - REL (DIFF) 4 % 0-0 H (BEAKER) (test code = 260) NEUTROPHILS - ABS (DIFF) (BEAKER) 2.37 K/ L 1.80-8.00 (test code = 1365) LYMPHOCYTES - ABS (DIFF) (BEAKER) 1.87 K/ L 1.48-4.50 (test code = 1366) MONOCYTES - ABS (DIFF) (BEAKER) 0.88 K/ L 0.00-1.30 (test code = 1367) EOSINOPHILS - ABS (DIFF) (BEAKER) 0.11 K/ L 0.00-0.50 (test code = 1368) BASOPHILS - ABS (DIFF) (BEAKER) 0.00 K/ L 0.00-0.20 (test code = 1369) ATYPICAL LYMPHOCYTES - ABS (DIFF) 0.22 K/ L 0.00-0.00 H (BEAKER) (test code = 263) MYELOCYTES-ABS (DIFF) (BEAKER) 0.06 K/ L 0.00-0.00 H (test code = 1593) TOTAL COUNTED (BEAKER) (test code = 100 1351) WBC MORPHOLOGY (BEAKER) (test code Normal = 487) PLT MORPHOLOGY (BEAKER) (test code Normal = 486) ANISOCYTOSIS (BEAKER) (test code = 1+ few 961) Differential performed on an albumin smear.BASIC METABOLIC [id number] 03:40:00 Test Item Value Reference Range Interpretation Comments SODIUM (BEAKER) 136 meq/L 136-145 (test code = 381) POTASSIUM (BEAKER) 4.5 meq/L 3.5-5.1 Specimen slightly (test code = 379) hemolyzed CHLORIDE (BEAKER) 101 meq/L 98-107 (test code = 382) CO2 (BEAKER) (test 25 meq/L 22-29 code = 355) BLOOD UREA NITROGEN 8 mg/dL 7-21 (BEAKER) (test code = 354) CREATININE (BEAKER) 0.66 mg/dL 0.57-1.25 Specimen slightly (test code = 358) hemolyzed GLUCOSE RANDOM 143 mg/dL 70-105 H (BEAKER) (test code = 652) CALCIUM (BEAKER) 9.8 mg/dL 8.4-10.2 (test code = 697) EGFR (BEAKER) (test 93 mL/min/1.73 ESTIMA JENELLE GFR IS code = 1092) sq m NOT ACCURATE CREATININE CLEARANCE IN PREDICTING GLOMERULAR FILTRATION RATE . ESTIMATED GFR I S NOT APPLICABLE FOR DIALYSIS PATIEN TS. CBC W/PLT COUNT & AUTO [id number] 03:00:00 Test Item Value Reference Range Interpretation Comments WHITE BLOOD CELL COUNT (BEAKER) 5.5 K/ L 3.5-10.5 (test code = 775) RED BLOOD CELL COUNT (BEAKER) 3.71 M/ L 3.93-5.22 L (test code = 761) HEMOGLOBIN (BEAKER) (test code = 11.8 GM/DL 11.2-15.7 410) HEMATOCRIT (BEAKER) (test code = 37.6 % 34.1-44.9 411) MEAN CORPUSCULAR VOLUME (BEAKER) 101.3 fL 79.4-94.8 H (test code = 753) MEAN CORPUSCULAR HEMOGLOBIN 31.8 pg 25.6-32.2 (BEAKER) (test code = 751) MEAN CORPUSCULAR HEMOGLOBIN CONC 31.4 GM/DL 32.2-35.5 L (BEAKER) (test code = 752) RED CELL DISTRIBUTION WIDTH 17.3 % 11.7-14.4 H (AKER) (test code = 412) PLATELET COUNT ([facility]) (test 360 K/CU MM 150-450 code = 756) MEAN PLATELET VOLUME (BEAKER) 9.1 fL 9.4-12.3 L (test code = 754) NUCLEATED RED BLOOD CELLS 0 /100 WBC 0-0 ([facility]) (test code = 413) POCT-GLUCOSE [id number] 21:19:00 Test Item Value Reference Range Interpretation Comments POC-GLUCOSE METER 216 mg/dL 70-110 H TESTED AT [place] [address] ([facility]) (test code = RODOLFO Pitts [facility] 1538) [id number] POCT-GLUCOSE [id number] 12:46:00 Test Item Value Reference Range Interpretation Comments POC-GLUCOSE METER 174 mg/dL 70-110 H TESTED AT [place] [address] ([facility]) (test code = DANIELCT Gisselle [facility] 1538) [id number] RAD, ABDOMEN/KUB, 1 VIEW [id number] 10:26:00Reason for exam:->abd distension, eval for obstruction/ileusIs the patient ?->NoFINAL REPORT Abdomen. Clinical history: Abdominal distention, evaluate for ileus. COMPARISON STUDY: May 05, 2018. FINDINGS: Three supine views of the abdomen demonstrate nodilated loops of large or small bowel. The regional skeleton is unremarkable. Degenerative changes are seen. This film is insensitive for the detection of free air. Postsurgical changes are seen in the groins. Signed: Moses Baeza MDReport Verified Date/Time: 10/12/2018 10:26:01 Reading Location: [address] Body Reading Room CBC W/PLT COUNT & AUTO [id number] 09:45:00 Test Item Value Reference Range Interpretation Comments WHITE BLOOD CELL COUNT (BEAKER) 4.2 K/ L 3.5-10.5 (test code = 775) RED BLOOD CELL COUNT (BEAKER) 3.48 M/ L 3.93-5.22 L (test code = 761) HEMOGLOBIN (BEAKER) (test code = 10.8 GM/DL 11.2-15.7 L 410) HEMATOCRIT (BEAKER) (test code = 34.8 % 34.1-44.9 411) MEAN CORPUSCULAR VOLUME (BEAKER) 100.0 fL 79.4-94.8 H (test code = 753) MEAN CORPUSCULAR HEMOGLOBIN 31.0 pg 25.6-32.2 (BEAKER) (test code = 751) MEAN CORPUSCULAR HEMOGLOBIN CONC 31.0 GM/DL 32.2-35.5 L (BEAKER) (test code = 752) RED CELL DISTRIBUTION WIDTH 17.7 % 11.7-14.4 H (BEAKER) (test code = 412) PLATELET COUNT (BEAKER) (test 360 K/CU MM 150-450 code = 756) MEAN PLATELET VOLUME (BEAKER) 10.2 fL 9.4-12.3 (test code = 754) NUCLEATED RED BLOOD CELLS 0 /100 WBC 0-0 (BEAKER) (test code = 413) (CELLAVISION MANUAL DIFF)2018-10-12 09:45:00 Test Item Value Reference Range Interpretation Comments NEUTROPHILS - REL 5 % (CELLAVISION)(BEAKER) (test code = 2816) LYMPHOCYTES - REL 58 % (CELLAVISION)(BEAKER) (test code = 2817) MONOCYTES - REL 32 % (CELLAVISION)(BEAKER) (test code = 2818) EOSINOPHILS - REL 3 % (CELLAVISION)(BEAKER) (test code = 2819) MYELOCYTES - REL 1 % 0-0 H (CELLAVISION)(BEAKER) (test code = 2822) BANDS - REL (CELLAVISION)(BEAKER) 1 % 0-10 (test code = 2826) NEUTROPHILS - ABS 0.21 K/ul 1.56-6.13 L (CELLAVISION)(BEAKER) (test code = 2830) LYMPHOCYTES - ABS 2.44 K/ul 1.18-3.74 (CELLAVISION)(BEAKER) (test code = 2831) MONOCYTES - ABS 1.34 K/uL 0.24-0.36 H (CELLAVISION)(BEAKER) (test code = 2832) EOSINOPHILS - ABS 0.13 K/uL 0.04-0.36 (CELLAVISION)(BEAKER) (test code = 2834) MYELOCYTES-ABS 0.04 K/uL 0.00-0.00 H (CELLAVISION)(BEAKER) (test code = 2837) BANDS - ABS (CELLAVISION)(BEAKER) 0.04 K/uL 0.00-0.80 (test code = 2840) TOTAL COUNTED (BEAKER) (test code 100 = 1351) MANUAL NRBC PER 100 CELLS (BEAKER) 1 /100 WBC 0-0 H (test code = 1353) PLT MORPHOLOGY (BEAKER) (test code Normal = 486) SMUDGE CELLS (BEAKER) (test code = Present 1371) ANISOCYTOSIS (BEAKER) (test code = 1+ few 961) ARTIFACT (CELLAVISION)(BEAKER) Present (test code = 3432) PLATELET CONCENTRATION Adequate (CELLAVISION)(BEAKER) (test code = 3438) Received comment: User comments: Slide comments:POCT-GLUCOSE [id number] 07:56:00 Test Item Value Reference Range Interpretation Comments POC-GLUCOSE METER 213 mg/dL 70-110 H TESTED AT [facility] 6720 (BEAKER) (test code = [place] 1538) [address] BASIC METABOLIC [id number] 07:38:00 Test Item Value Reference Range Interpretation Comments SODIUM (BEAKER) 137 meq/L 136-145 (test code = 381) POTASSIUM (BEAKER) 4.9 meq/L 3.5-5.1 Specimen slightly (test code = 379) hemolyzed CHLORIDE (BEAKER) 102 meq/L 98-107 (test code = 382) CO2 (BEAKER) (test 23 meq/L 22-29 code = 355) BLOOD UREA NITROGEN 7 mg/dL 7-21 (BEAKER) (test code = 354) CREATININE (BEAKER) 0.61 mg/dL 0.57-1.25 Specimen slightly (test code = 358) hemolyzed GLUCOSE RANDOM 218 mg/dL 70-105 H (BEAKER) (test code = 652) CALCIUM (BEAKER) 9.2 mg/dL 8.4-10.2 (test code = 697) EGFR (BEAKER) (test 101 mL/min/1.73 ESTIM ATED GFR IS code = 1092) sq m NOT ACCURATE CREATININE CLEARANCE IN PREDICTING GLOMERULAR FILTRATION RATE . ESTIMATED GFR I S NOT APPLICABLE FOR DIALYSIS PATIEN TS. POCT-GLUCOSE [id number] 18:35:00 Test Item Value Reference Range Interpretation Comments POC-GLUCOSE METER 196 mg/dL 70-110 H TESTED AT [facility] (test code = [facility] 1538) [address] POCT-GLUCOSE [id number] 12:01:00 Test Item Value Reference Range Interpretation Comments POC-GLUCOSE METER 184 mg/dL 70-110 H TESTED AT [place] [address] ([facility] (test code = [facility] 1538) [address] POCT-GLUCOSE [id number] 08:12:00 Test Item Value Reference Range Interpretation Comments POC-GLUCOSE METER 215 mg/dL 70-110 H TESTED AT [place] [address] ([facility] (test code = [facility] 1538) [address] BASIC METABOLIC [id number] 06:51:00 Test Item Value Reference Range Interpretation Comments SODIUM (BEAKER) 140 meq/L 136-145 (test code = 381) POTASSIUM (BEAKER) 4.5 meq/L 3.5-5.1 (test code = 379) CHLORIDE (BEAKER) 102 meq/L 98-107 (test code = 382) CO2 (BEAKER) (test 28 meq/L 22-29 code = 355) BLOOD UREA NITROGEN 8 mg/dL 7-21 (BEAKER) (test code = 354) CREATININE (BEAKER) 0.61 mg/dL 0.57-1.25 (test code = 358) GLUCOSE RANDOM 193 mg/dL 70-105 H (BEAKER) (test code = 652) CALCIUM (BEAKER) 9.9 mg/dL 8.4-10.2 (test code = 697) EGFR (BEAKER) (test 101 mL/min/1.73 ESTIM ATED GFR IS code = 1092) sq m NOT ACCURATE CREATININE CLEARANCE IN PREDICTING GLOMERULAR FILTRATION RATE . ESTIMATED GFR I S NOT APPLICABLE FOR DIALYSIS PATIEN TS. CBC W/PLT COUNT & AUTO [id number] 06:15:00 Test Item Value Reference Range Interpretation Comments WHITE BLOOD CELL COUNT (BEAKER) 4.3 K/ L 3.5-10.5 (test code = 775) RED BLOOD CELL COUNT (BEAKER) 3.63 M/ L 3.93-5.22 L (test code = 761) HEMOGLOBIN (BEAKER) (test code = 11.4 GM/DL 11.2-15.7 410) HEMATOCRIT (BEAKER) (test code = 37.2 % 34.1-44.9 411) MEAN CORPUSCULAR VOLUME (BEAKER) 102.5 fL 79.4-94.8 H (test code = 753) MEAN CORPUSCULAR HEMOGLOBIN 31.4 pg 25.6-32.2 (BEAKER) (test code = 751) MEAN CORPUSCULAR HEMOGLOBIN CONC 30.6 GM/DL 32.2-35.5 L (BEAKER) (test code = 752) RED CELL DISTRIBUTION WIDTH 17.9 % 11.7-14.4 H (BEAKER) (test code = 412) PLATELET COUNT (BEAKER) (test 286 K/CU MM 150-450 code = 756) MEAN PLATELET VOLUME (BEAKER) 9.6 fL 9.4-12.3 (test code = 754) NUCLEATED RED BLOOD CELLS 0 /100 WBC 0-0 (BEAKER) (test code = 413) NEUTROPHILS RELATIVE PERCENT 48 % (BEAKER) (test code = 429) LYMPHOCYTES RELATIVE PERCENT 29 % (BEAKER) (test code = 430) MONOCYTES RELATIVE PERCENT 20 % (BEAKER) (test code = 431) EOSINOPHILS RELATIVE PERCENT 1 % (BEAKER) (test code = 432) BASOPHILS RELATIVE PERCENT 1 % (BEAKER) (test code = 437) NEUTROPHILS ABSOLUTE COUNT 2.08 K/ L 1.56-6.13 (BEAKER) (test code = 670) LYMPHOCYTES ABSOLUTE COUNT 1.26 K/ L 1.18-3.74 (BEAKER) (test code = 414) MONOCYTES ABSOLUTE COUNT (BEAKER) 0.85 K/ L 0.24-0.36 H (test code = 415) EOSINOPHILS ABSOLUTE COUNT 0.05 K/ L 0.04-0.36 ([facility]) (test code = 416) BASOPHILS ABSOLUTE COUNT ([facility]) 0.04 K/ L 0.01-0.08 (test code = 417) IMMATURE GRANULOCYTES-RELATIVE 1 % 0-1 PERCENT ([facility]) (test code = 2801) POCT-GLUCOSE [id number] 22:53:00 Test Item Value Reference Range Interpretation Comments POC-GLUCOSE METER 207 mg/dL 70-110 H TESTED AT [place] [address] ([facility]) (test code = [place] [facility] 1538) [id number] RAD, CHEST, 1 VIEW, NON [id number] 22:32:00Reason for exam:->coughShould this be performed at the bedside?->YesFINAL REPORT TECHNIQUE: Single view of the chest. COMPARISON: 10/07/2018 FINDINGS: The cardiac silhouette is within normal limits. Mediastinum is unremarkable. Right lung curvilinear density may represent atelectasis or scarring, stable. Otherwise lungs are clear. No acute skeletal abnormality. Soft tissues appear unremarkable. IMPRESSION: No acute cardiopulmonary disease. Signed: Bryce Fox MDReport Verified Date/Time: 10/10/2018 22:32:10 Reading Location: [facility] POCT-GLUCOSE [id number] 22:05:00 Test Item Value Reference Range Interpretation Comments POC-GLUCOSE METER 202 mg/dL 70-110 H TESTED AT [place] [address] ([facility]) (test code = [place] [facility] 1538) [address] RESPIRATORY PANEL [id number] 13:26:00 Test Item Value Reference Range Interpretation Comments HUMAN METAPNEUMOVIRUS Not detected Not detected, ([facility]) (test code = 2683) Equivocal RHINOVIRUS ([facility]) (test Not detected Not detected, code = 2684) Equivocal INFLUENZA A ([facility]) (test Not detected Not detected, code = 2685) Equivocal INFLUENZA A (NO SUBTYPE) Not detected, (test code = 3606) Equivocal INFLUENZA A SUBTYPE H1 Not detected, ([facility]) (test code = 2686) Equivocal INFLUENZA A SUBTYPE H3 Not detected, (BEAKER) (test code = 2687) Equivocal INFLUENZA A SUBTYPE H1-2009 Not detected, (BEAKER) (test code = 3198) Equivocal INFLUENZA B (BEAKER) (test Not detected Not detected, code = 2688) Equivocal RESPIRATORY SYNCYTIAL VIRUS Not detected Not detected, (BEAKER) (test code = 3199) Equivocal PARAINFLUENZA VIRUS 1 Not detected Not detected, (BEAKER) (test code = 2691) Equivocal PARAINFLUENZA VIRUS 2 Not detected Not detected, (BEAKER) (test code = 2692) Equivocal PARAINFLUENZA VIRUS 3 Not detected Not detected, (BEAKER) (test code = 2693) Equivocal PARAINFLUENZA VIRUS 4 Not detected Not detected, (BEAKER) (test code = 3200) Equivocal ADENOVIRUS (BEAKER) (test Not detected Not detected, code = 2694) Equivocal CORONAVIRUS 229E (BEAKER) Not detected Not detected, (test code = 3201) Equivocal CORONAVIRUS HKU1 (BEAKER) Not detected Not detected, (test code = 3202) Equivocal CORONAVIRUS NL63 (BEAKER) Not detected Not detected, (test code = 3203) Equivocal CORONAVIRUS OC43 (BEAKER) Not detected Not detected, (test code = 3204) Equivocal BORDETELLA PERTUSSIS Not detected Not detected, (BEAKER) (test code = 3205) Equivocal CHLAMYDOPHILA PNEUMONIAE Not detected Not detected, (BEAKER) (test code = 3206) Equivocal MYCOPLASMA PNEUMONIAE Not detected Not detected, (BEAKER) (test code = 3207) Equivocal Other viruses and bacteria not targeted by this PCR panel cannot be excluded; therefore clinical correlation and follow up of serology, culture results, and other molecular studies is required. The results are not intended to be used as the sole means for clinical diagnosis or patient management decisions. This sample was tested at the [facility] using the Suniva[employer] Respiratory Panel. It is FDA cleared and has been verified and approved by the [facility] for clinical use on nasal swab specimens. It is not FDA-cleared for use on bronchial wash/lavage samples. However, for this sample type, validation was performed and test characteristics were determined and approved, by [facility] for clinical use under the Clinical Laboratory Improvement Amendments (CLIA) of 1988 requirements. Therefore, FDA clearance isnot required. This laboratory is CLIA-certified and [employer] (CAP)-accredited to perform high complexity testing.POCT-GLUCOSE [id number] 11:47:00 Test Item Value Reference Range Interpretation Comments POC-GLUCOSE METER 163 mg/dL 70-110 H TESTED AT [facility] 6720 (BEAKER) (test code = [place] 1538) [address] POCT-GLUCOSE [id number] 08:34:00 Test Item Value Reference Range Interpretation Comments POC-GLUCOSE METER 141 mg/dL 70-110 H TESTED AT [facility] 6720 (BEAKER) (test code = [place] [facility] 1538) [address] BASIC METABOLIC [id number] 06:51:00 Test Item Value Reference Range Interpretation Comments SODIUM (BEAKER) 138 meq/L 136-145 (test code = 381) POTASSIUM (BEAKER) 4.1 meq/L 3.5-5.1 (test code = 379) CHLORIDE (BEAKER) 101 meq/L 98-107 (test code = 382) CO2 (BEAKER) (test 28 meq/L 22-29 code = 355) BLOOD UREA NITROGEN 5 mg/dL 7-21 L (BEAKER) (test code = 354) CREATININE (BEAKER) 0.55 mg/dL 0.57-1.25 L (test code = 358) GLUCOSE RANDOM 152 mg/dL 70-105 H (BEAKER) (test code = 652) CALCIUM (BEAKER) 9.7 mg/dL 8.4-10.2 (test code = 697) EGFR (BEAKER) (test 114 mL/min/1.73 ESTIM ATED GFR IS code = 1092) sq m NOT ACCURATE CREATININE CLEARANCE IN PREDICTING GLOMERULAR FILTRATION RATE . ESTIMATED GFR I S NOT APPLICABLE FOR DIALYSIS PATIEN TS. CBC W/PLT COUNT & AUTO [id number] 06:35:00 Test Item Value Reference Range Interpretation Comments WHITE BLOOD CELL COUNT (BEAKER) 4.6 K/ L 3.5-10.5 (test code = 775) RED BLOOD CELL COUNT (BEAKER) 3.54 M/ L 3.93-5.22 L (test code = 761) HEMOGLOBIN (BEAKER) (test code = 11.1 GM/DL 11.2-15.7 L 410) HEMATOCRIT (BEAKER) (test code = 35.7 % 34.1-44.9 411) MEAN CORPUSCULAR VOLUME (BEAKER) 100.8 fL 79.4-94.8 H (test code = 753) MEAN CORPUSCULAR HEMOGLOBIN 31.4 pg 25.6-32.2 (BEAKER) (test code = 751) MEAN CORPUSCULAR HEMOGLOBIN CONC 31.1 GM/DL 32.2-35.5 L (BEAKER) (test code = 752) RED CELL DISTRIBUTION WIDTH 18.3 % 11.7-14.4 H (BEAKER) (test code = 412) PLATELET COUNT (BEAKER) (test 252 K/CU MM 150-450 code = 756) MEAN PLATELET VOLUME (BEAKER) 9.5 fL 9.4-12.3 (test code = 754) NUCLEATED RED BLOOD CELLS 0 /100 WBC 0-0 (BEAKER) (test code = 413) NEUTROPHILS RELATIVE PERCENT 57 % (BEAKER) (test code = 429) LYMPHOCYTES RELATIVE PERCENT 21 % (BEAKER) (test code = 430) MONOCYTES RELATIVE PERCENT 19 % (BEAKER) (test code = 431) EOSINOPHILS RELATIVE PERCENT 1 % (BEAKER) (test code = 432) BASOPHILS RELATIVE PERCENT 1 % (BEAKER) (test code = 437) NEUTROPHILS ABSOLUTE COUNT 2.63 K/ L 1.56-6.13 (BEAKER) (test code = 670) LYMPHOCYTES ABSOLUTE COUNT 0.96 K/ L 1.18-3.74 L (BEAKER) (test code = 414) MONOCYTES ABSOLUTE COUNT (BEAKER) 0.90 K/ L 0.24-0.36 H (test code = 415) EOSINOPHILS ABSOLUTE COUNT 0.06 K/ L 0.04-0.36 (BEAKER) (test code = 416) BASOPHILS ABSOLUTE COUNT (BEAKER) 0.04 K/ L 0.01-0.08 (test code = 417) IMMATURE GRANULOCYTES-RELATIVE 1 % 0-1 PERCENT (BEAKER) (test code = 2801) POCT-GLUCOSE [id number] 21:25:00 Test Item Value Reference Range Interpretation Comments POC-GLUCOSE METER 199 mg/dL 70-110 H TESTED AT [facility] 6720 ([facility]) (test code = [place] 1538) [id number] BLOOD [id number] 19:00:00 Test Item Value Reference Range Interpretation Comments CULTURE (BEAKER) (test No growth in 5 days code = 1095) BLOOD [id number] 19:00:00 Test Item Value Reference Range Interpretation Comments CULTURE (BEAKER) (test No growth in 5 days code = 1095) POCT-GLUCOSE [id number] 18:16:00 Test Item Value Reference Range Interpretation Comments POC-GLUCOSE METER 149 mg/dL 70-110 H TESTED AT [place] [address] ([facility] (test code = [facility] 1538) [address] OVA AND PARASITE [id number] 08:39:00 Test Item Value Reference Range Interpretation Comments CONCENTRATE SMEAR - No ova or parasites No ova or parasites O\T\P (BEAKER) (test seen seen code = 247) TRICHROME SMEAR - No ova or parasites No ova or parasites O\T\P (BEAKER) (test seen seen code = 248) POCT-GLUCOSE [id number] 07:38:00 Test Item Value Reference Range Interpretation Comments POC-GLUCOSE METER 169 mg/dL 70-110 H TESTED AT [place] [address] (BEAKER) (test code = [facility] 1538) [address] BASIC METABOLIC [id number] 05:07:00 Test Item Value Reference Range Interpretation Comments SODIUM (BEAKER) 138 meq/L 136-145 (test code = 381) POTASSIUM (BEAKER) 3.9 meq/L 3.5-5.1 (test code = 379) CHLORIDE (BEAKER) 101 meq/L 98-107 (test code = 382) CO2 (BEAKER) (test 27 meq/L 22-29 code = 355) BLOOD UREA NITROGEN 7 mg/dL 7-21 (BEAKER) (test code = 354) CREATININE (BEAKER) 0.58 mg/dL 0.57-1.25 (test code = 358) GLUCOSE RANDOM 174 mg/dL 70-105 H (BEAKER) (test code = 652) CALCIUM (BEAKER) 9.5 mg/dL 8.4-10.2 (test code = 697) EGFR (BEAKER) (test 108 mL/min/1.73 ESTIM ATED GFR IS code = 1092) sq m NOT ACCURATE CREATININE CLEARANCE IN PREDICTING GLOMERULAR FILTRATION RATE . ESTIMATED GFR I S NOT APPLICABLE FOR DIALYSIS PATIEN TS. CBC W/PLT COUNT & AUTO [id number] 04:51:00 Test Item Value Reference Range Interpretation Comments WHITE BLOOD CELL COUNT (BEAKER) 4.2 K/ L 3.5-10.5 (test code = 775) RED BLOOD CELL COUNT (BEAKER) 4.03 M/ L 3.93-5.22 (test code = 761) HEMOGLOBIN (BEAKER) (test code = 12.6 GM/DL 11.2-15.7 410) HEMATOCRIT (BEAKER) (test code = 40.5 % 34.1-44.9 411) MEAN CORPUSCULAR VOLUME (BEAKER) 100.5 fL 79.4-94.8 H (test code = 753) MEAN CORPUSCULAR HEMOGLOBIN 31.3 pg 25.6-32.2 (BEAKER) (test code = 751) MEAN CORPUSCULAR HEMOGLOBIN CONC 31.1 GM/DL 32.2-35.5 L (BEAKER) (test code = 752) RED CELL DISTRIBUTION WIDTH 18.6 % 11.7-14.4 H (BEAKER) (test code = 412) PLATELET COUNT (BEAKER) (test 239 K/CU MM 150-450 code = 756) MEAN PLATELET VOLUME (BEAKER) 9.7 fL 9.4-12.3 (test code = 754) NUCLEATED RED BLOOD CELLS 0 /100 WBC 0-0 (BEAKER) (test code = 413) NEUTROPHILS RELATIVE PERCENT 57 % (BEAKER) (test code = 429) LYMPHOCYTES RELATIVE PERCENT 26 % (BEAKER) (test code = 430) MONOCYTES RELATIVE PERCENT 15 % (BEAKER) (test code = 431) EOSINOPHILS RELATIVE PERCENT 1 % (BEAKER) (test code = 432) BASOPHILS RELATIVE PERCENT 1 % (BEAKER) (test code = 437) NEUTROPHILS ABSOLUTE COUNT 2.39 K/ L 1.56-6.13 (BEAKER) (test code = 670) LYMPHOCYTES ABSOLUTE COUNT 1.10 K/ L 1.18-3.74 L (BEAKER) (test code = 414) MONOCYTES ABSOLUTE COUNT (BEAKER) 0.62 K/ L 0.24-0.36 H (test code = 415) EOSINOPHILS ABSOLUTE COUNT 0.04 K/ L 0.04-0.36 (BEAKER) (test code = 416) BASOPHILS ABSOLUTE COUNT (BEAKER) 0.03 K/ L 0.01-0.08 (test code = 417) IMMATURE GRANULOCYTES-RELATIVE 1 % 0-1 PERCENT (BEAKER) (test code = 2801) POCT-GLUCOSE [id number] 20:27:00 Test Item Value Reference Range Interpretation Comments POC-GLUCOSE METER 200 mg/dL 70-110 H TESTED AT [facility] 6720 (BEAKER) (test code = [place] [facility] 1538) [id number] POCT-GLUCOSE [id number] 17:20:00 Test Item Value Reference Range Interpretation Comments POC-GLUCOSE METER 242 mg/dL 70-110 H TESTED AT [facility] 6720 (BEAKER) (test code = [facility] 1538) [id number] POCT-GLUCOSE [id number] 13:03:00 Test Item Value Reference Range Interpretation Comments POC-GLUCOSE METER 146 mg/dL 70-110 H TESTED AT [facility] 6720 [facility] (test code = [facility] 1538) [address] POCT-GLUCOSE [id number] 08:06:00 Test Item Value Reference Range Interpretation Comments POC-GLUCOSE METER 150 mg/dL 70-110 H TESTED AT [facility] 6720 (BEAKER) (test code = [facility] 1538) [address] [id number] 04:31:00 Test Item Value Reference Range Interpretation Comments PHOSPHORUS (BEAKER) (test code = 3.4 mg/dL 2.3-4.7 604) [id number] 04:31:00 Test Item Value Reference Range Interpretation Comments MAGNESIUM (BEAKER) (test code = 2.1 mg/dL 1.6-2.6 627) BASIC METABOLIC [id number] 04:31:00 Test Item Value Reference Range Interpretation Comments SODIUM (BEAKER) 137 meq/L 136-145 (test code = 381) POTASSIUM (BEAKER) 4.2 meq/L 3.5-5.1 (test code = 379) CHLORIDE (BEAKER) 99 meq/L 98-107 (test code = 382) CO2 (BEAKER) (test 31 meq/L 22-29 H code = 355) BLOOD UREA NITROGEN 10 mg/dL 7-21 (BEAKER) (test code = 354) CREATININE (BEAKER) 0.60 mg/dL 0.57-1.25 (test code = 358) GLUCOSE RANDOM 148 mg/dL 70-105 H (BEAKER) (test code = 652) CALCIUM (BEAKER) 9.6 mg/dL 8.4-10.2 (test code = 697) EGFR (BEAKER) (test 103 mL/min/1.73 ESTIM ATED GFR IS code = 1092) sq m NOT ACCURATE CREATININE CLEARANCE IN PREDICTING GLOMERULAR FILTRATION RATE . ESTIMATED GFR I S NOT APPLICABLE FOR DIALYSIS PATIEN TS. CBC W/PLT COUNT & AUTO [id number] 04:15:00 Test Item Value Reference Range Interpretation Comments WHITE BLOOD CELL COUNT (BEAKER) 5.7 K/ L 3.5-10.5 (test code = 775) RED BLOOD CELL COUNT (BEAKER) 3.94 M/ L 3.93-5.22 (test code = 761) HEMOGLOBIN (BEAKER) (test code = 12.3 GM/DL 11.2-15.7 410) HEMATOCRIT (BEAKER) (test code = 39.8 % 34.1-44.9 411) MEAN CORPUSCULAR VOLUME (BEAKER) 101.0 fL 79.4-94.8 H (test code = 753) MEAN CORPUSCULAR HEMOGLOBIN 31.2 pg 25.6-32.2 (BEAKER) (test code = 751) MEAN CORPUSCULAR HEMOGLOBIN CONC 30.9 GM/DL 32.2-35.5 L (BEAKER) (test code = 752) RED CELL DISTRIBUTION WIDTH 19.2 % 11.7-14.4 H (BEAKER) (test code = 412) PLATELET COUNT (BEAKER) (test 232 K/CU MM 150-450 code = 756) MEAN PLATELET VOLUME (BEAKER) 9.4 fL 9.4-12.3 (test code = 754) NUCLEATED RED BLOOD CELLS 0 /100 WBC 0-0 (BEAKER) (test code = 413) NEUTROPHILS RELATIVE PERCENT 57 % (BEAKER) (test code = 429) LYMPHOCYTES RELATIVE PERCENT 26 % (BEAKER) (test code = 430) MONOCYTES RELATIVE PERCENT 15 % (BEAKER) (test code = 431) EOSINOPHILS RELATIVE PERCENT 1 % (BEAKER) (test code = 432) BASOPHILS RELATIVE PERCENT 1 % (BEAKER) (test code = 437) NEUTROPHILS ABSOLUTE COUNT 3.25 K/ L 1.56-6.13 (BEAKER) (test code = 670) LYMPHOCYTES ABSOLUTE COUNT 1.48 K/ L 1.18-3.74 (BEAKER) (test code = 414) MONOCYTES ABSOLUTE COUNT (BEAKER) 0.83 K/ L 0.24-0.36 H (test code = 415) EOSINOPHILS ABSOLUTE COUNT 0.08 K/ L 0.04-0.36 (BEAKER) (test code = 416) BASOPHILS ABSOLUTE COUNT (BEAKER) 0.03 K/ L 0.01-0.08 (test code = 417) IMMATURE GRANULOCYTES-RELATIVE 1 % 0-1 PERCENT (BEAKER) (test code = 2801) [id number] 15:17:00 Test Item Value Reference Range Interpretation Comments POTASSIUM (BEAKER) (test code = 4.5 meq/L 3.5-5.1 379) [id number] 15:17:00 Test Item Value Reference Range Interpretation Comments MAGNESIUM (BEAKER) (test code = 2.3 mg/dL 1.6-2.6 627) [id number] 15:17:00 Test Item Value Reference Range Interpretation Comments PHOSPHORUS (BEAKER) (test code = 2.5 mg/dL 2.3-4.7 604) HEMOGLOBIN AND [id number] 14:53:00 Test Item Value Reference Range Interpretation Comments HEMOGLOBIN (BEAKER) (test code = 14.4 GM/DL 11.2-15.7 410) HEMATOCRIT (BEAKER) (test code = 44.9 % 34.1-44.9 411) [id number] 09:39:00 Test Item Value Reference Range Interpretation Comments POTASSIUM (BEAKER) (test code = 3.7 meq/L 3.5-5.1 379) [id number] 09:39:00 Test Item Value Reference Range Interpretation Comments MAGNESIUM (BEAKER) (test code = 2.4 mg/dL 1.6-2.6 627) RAD, CHEST, 1 VIEW, NON [id number] 08:09:00Reason for exam:->pulm edemaShould this be performed at the bedside?->YesFINAL REPORT TECHNIQUE: Frontal view of the chest. INDICATION: 58-year-old woman with pulmonary edema. COMPARISON: Chest radiograph 10/06/2018. FINDINGS: LINES/TUBES: None. LUNGS: The lungs are well inflated and clear. Unchanged suture projects over the right midlung zone with adjacent linear scarring. PLEURA: No pneumothorax or significant pleural effusion. HEART AND MEDIASTINUM: The cardiomediastinal silhouette is unchanged. SOFT TISSUES AND BONES: Unremarkable. IMPRESSION:No significant change since 10/06/2018. Signed: Lillie Jones MDReport Verified Date/Time: 10/07/2018 08:09:09 Reading Location: [facility] Radiology Reading Room POCT-GLUCOSE [id number] 06:00:00 Test Item Value Reference Range Interpretation Comments POC-GLUCOSE METER 111 mg/dL 70-110 H TESTED AT [facility] 6720 (BEAKER) (test code = [place]EL[place] 1538) [id number] 05:22:00 Test Item Value Reference Range Interpretation Comments PHOSPHORUS (BEAKER) (test code = 2.9 mg/dL 2.3-4.7 604) [id number] 05:22:00 Test Item Value Reference Range Interpretation Comments MAGNESIUM (BEAKER) (test code = 2.4 mg/dL 1.6-2.6 627) BASIC METABOLIC [id number] 05:22:00 Test Item Value Reference Range Interpretation Comments SODIUM (BEAKER) 141 meq/L 136-145 (test code = 381) POTASSIUM (BEAKER) 3.5 meq/L 3.5-5.1 (test code = 379) CHLORIDE (BEAKER) 103 meq/L 98-107 (test code = 382) CO2 (BEAKER) (test 28 meq/L 22-29 code = 355) BLOOD UREA NITROGEN 4 mg/dL 7-21 L (BEAKER) (test code = 354) CREATININE (BEAKER) 0.48 mg/dL 0.57-1.25 L (test code = 358) GLUCOSE RANDOM 127 mg/dL 70-105 H (BEAKER) (test code = 652) CALCIUM (BEAKER) 8.8 mg/dL 8.4-10.2 (test code = 697) EGFR (BEAKER) (test 134 mL/min/1.73 ESTIM ATED GFR IS code = 1092) sq m NOT ACCURATE CREATININE CLEARANCE IN PREDICTING GLOMERULAR FILTRATION RATE . ESTIMATED GFR I S NOT APPLICABLE FOR DIALYSIS PATIEN TS. CBC W/PLT COUNT & AUTO [id number] 05:03:00 Test Item Value Reference Range Interpretation Comments WHITE BLOOD CELL COUNT (BEAKER) 4.3 K/ L 3.5-10.5 (test code = 775) RED BLOOD CELL COUNT (BEAKER) 4.03 M/ L 3.93-5.22 (test code = 761) HEMOGLOBIN (BEAKER) (test code = 12.4 GM/DL 11.2-15.7 410) HEMATOCRIT (BEAKER) (test code = 38.9 % 34.1-44.9 411) MEAN CORPUSCULAR VOLUME (BEAKER) 96.5 fL 79.4-94.8 H (test code = 753) MEAN CORPUSCULAR HEMOGLOBIN 30.8 pg 25.6-32.2 (BEAKER) (test code = 751) MEAN CORPUSCULAR HEMOGLOBIN CONC 31.9 GM/DL 32.2-35.5 L (BEAKER) (test code = 752) RED CELL DISTRIBUTION WIDTH 19.2 % 11.7-14.4 H (BEAKER) (test code = 412) PLATELET COUNT (BEAKER) (test 203 K/CU MM 150-450 code = 756) MEAN PLATELET VOLUME (BEAKER) 9.9 fL 9.4-12.3 (test code = 754) NUCLEATED RED BLOOD CELLS 1 /100 WBC 0-0 H (BEAKER) (test code = 413) NEUTROPHILS RELATIVE PERCENT 58 % (BEAKER) (test code = 429) LYMPHOCYTES RELATIVE PERCENT 24 % (BEAKER) (test code = 430) MONOCYTES RELATIVE PERCENT 14 % (BEAKER) (test code = 431) EOSINOPHILS RELATIVE PERCENT 2 % (BEAKER) (test code = 432) BASOPHILS RELATIVE PERCENT 1 % (BEAKER) (test code = 437) NEUTROPHILS ABSOLUTE COUNT 2.52 K/ L 1.56-6.13 (BEAKER) (test code = 670) LYMPHOCYTES ABSOLUTE COUNT 1.05 K/ L 1.18-3.74 L (BEAKER) (test code = 414) MONOCYTES ABSOLUTE COUNT (BEAKER) 0.60 K/ L 0.24-0.36 H (test code = 415) EOSINOPHILS ABSOLUTE COUNT 0.08 K/ L 0.04-0.36 (BEAKER) (test code = 416) BASOPHILS ABSOLUTE COUNT (BEAKER) 0.03 K/ L 0.01-0.08 (test code = 417) IMMATURE GRANULOCYTES-RELATIVE 1 % 0-1 PERCENT (BEAKER) (test code = 2801) [id number] 00:55:00 Test Item Value Reference Range Interpretation Comments POTASSIUM (BEAKER) (test code = 3.6 meq/L 3.5-5.1 379) [id number] 00:55:00 Test Item Value Reference Range Interpretation Comments MAGNESIUM (BEAKER) (test code = 2.0 mg/dL 1.6-2.6 627) POCT-GLUCOSE [id number] 00:32:00 Test Item Value Reference Range Interpretation Comments POC-GLUCOSE METER 125 mg/dL 70-110 H TESTED AT [facility] 6720 (BEAKER) (test code = [facility] 1538) [address] POCT-GLUCOSE [id number] 20:19:00 Test Item Value Reference Range Interpretation Comments POC-GLUCOSE METER 209 mg/dL 70-110 H TESTED AT [facility] 67 [facility] (test code = [facility] 1538) [address] [id number] 16:56:00 Test Item Value Reference Range Interpretation Comments PHOSPHORUS (BEAKER) (test code = 1.2 mg/dL 2.3-4.7 LL 604) [id number] 16:52:00 Test Item Value Reference Range Interpretation Comments POTASSIUM (BEAKER) (test code = 3.6 meq/L 3.5-5.1 379) [id number] 16:52:00 Test Item Value Reference Range Interpretation Comments MAGNESIUM (BEAKER) (test code = 2.3 mg/dL 1.6-2.6 627) HEMOGLOBIN AND [id number] 16:35:00 Test Item Value Reference Range Interpretation Comments HEMOGLOBIN (BEAKER) (test code = 12.6 GM/DL 11.2-15.7 410) HEMATOCRIT (BEAKER) (test code = 37.7 % 34.1-44.9 411) C. DIFFICILE GDH [id number] 16:20:00 Test Item Value Reference Range Interpretation Comments CDT TOXIN (test code Negative Negative = [id number]) CDT GDH ANTIGEN Positive Negative A C. difficile present but (test code = toxin not detec jenelle. [id number]) Indicates colon ization with non-toxige vijay strain or level of tox in below detectable leve ls. No need for enteri c isolation. Thai atment is rarely needed ( only when strong clinical suspicion for Clostridium difficile infection) Testing performed by [employer] Rapid Cassette Assay. For GDH, published sensitivity of the assay is 98.7% compared to cytotoxicity testing. For Toxin AB, published sensitivity is 87.8% and specificity 99.4% compared to cytotoxicity testing.Verification of kit performance was done by the [facility] Microbiology Lab prior to clinical use.[id number] 12:30:00 Test Item Value Reference Range Interpretation Comments POTASSIUM ([facility]) (test code = 3.4 meq/L 3.5-5.1 L 379) Check Serum Potassium level 2 hours after oral potassium replacement completed or 30 min after intravenous potassium replacement.POCT-GLUCOSE [id number] 12:11:00 Test Item Value Reference Range Interpretation Comments POC-GLUCOSE METER 183 mg/dL 70-110 H TESTED AT [place] [address] ([facility]) (test code = [place] 1538) [id number] RAD, CHEST, 1 VIEW, NON [id number] 08:17:00Reason for exam:->pulm edemaShould this be performed at the bedside?->YesFINAL REPORT Chest, one view History: Pulmonary edema Comparison: 10/05/2018 Fi ndings:Clear lungs. Normal size heart. No pleural effusion or pneumothorax. Impression:No acute findings in the chest Signed: Mehul Crowder MDReport Verified Date/Time: 10/06/2018 08:17:06 Reading Location: [facility] C013X [facility] Consult Reading Room POCT-GLUCOSE [id number] 05:51:00 Test Item Value Reference Range Interpretation Comments POC-GLUCOSE METER 129 mg/dL 70-110 H TESTED AT [place] [address] (BEAKER) (test code = [place] 1538) [address] [id number] 05:17:00 Test Item Value Reference Range Interpretation Comments PHOSPHORUS (BEAKER) (test code = 1.3 mg/dL 2.3-4.7 LL 604) BASIC METABOLIC [id number] 05:14:00 Test Item Value Reference Range Interpretation Comments SODIUM (BEAKER) 141 meq/L 136-145 (test code = 381) POTASSIUM (BEAKER) 2.6 meq/L 3.5-5.1 LL (test code = 379) CHLORIDE (BEAKER) 99 meq/L 98-107 (test code = 382) CO2 (BEAKER) (test 30 meq/L 22-29 H code = 355) BLOOD UREA NITROGEN 5 mg/dL 7-21 L (BEAKER) (test code = 354) CREATININE (BEAKER) 0.52 mg/dL 0.57-1.25 L (test code = 358) GLUCOSE RANDOM 133 mg/dL 70-105 H (BEAKER) (test code = 652) CALCIUM (BEAKER) 8.9 mg/dL 8.4-10.2 (test code = 697) EGFR (BEAKER) (test 122 mL/min/1.73 ESTIM ATED GFR IS code = 1092) sq m NOT ACCURATE CREATININE CLEARANCE IN PREDICTING GLOMERULAR FILTRATION RATE . ESTIMATED GFR I S NOT APPLICABLE FOR DIALYSIS PATIEN TS. [id number] 05:06:00 Test Item Value Reference Range Interpretation Comments MAGNESIUM (BEAKER) (test code = 2.2 mg/dL 1.6-2.6 627) CBC W/PLT COUNT & AUTO [id number] 04:37:00 Test Item Value Reference Range Interpretation Comments WHITE BLOOD CELL COUNT (BEAKER) 4.8 K/ L 3.5-10.5 (test code = 775) RED BLOOD CELL COUNT (BEAKER) 3.94 M/ L 3.93-5.22 (test code = 761) HEMOGLOBIN (BEAKER) (test code = 12.2 GM/DL 11.2-15.7 410) HEMATOCRIT (BEAKER) (test code = 37.5 % 34.1-44.9 411) MEAN CORPUSCULAR VOLUME (BEAKER) 95.2 fL 79.4-94.8 H (test code = 753) MEAN CORPUSCULAR HEMOGLOBIN 31.0 pg 25.6-32.2 (BEAKER) (test code = 751) MEAN CORPUSCULAR HEMOGLOBIN CONC 32.5 GM/DL 32.2-35.5 (BEAKER) (test code = 752) RED CELL DISTRIBUTION WIDTH 18.4 % 11.7-14.4 H (BEAKER) (test code = 412) PLATELET COUNT (BEAKER) (test 156 K/CU MM 150-450 code = 756) MEAN PLATELET VOLUME (BEAKER) 10.2 fL 9.4-12.3 (test code = 754) NUCLEATED RED BLOOD CELLS 0 /100 WBC 0-0 (BEAKER) (test code = 413) NEUTROPHILS RELATIVE PERCENT 62 % (BEAKER) (test code = 429) LYMPHOCYTES RELATIVE PERCENT 22 % (BEAKER) (test code = 430) MONOCYTES RELATIVE PERCENT 14 % (BEAKER) (test code = 431) EOSINOPHILS RELATIVE PERCENT 1 % (BEAKER) (test code = 432) BASOPHILS RELATIVE PERCENT 0 % (BEAKER) (test code = 437) NEUTROPHILS ABSOLUTE COUNT 2.93 K/ L 1.56-6.13 (BEAKER) (test code = 670) LYMPHOCYTES ABSOLUTE COUNT 1.06 K/ L 1.18-3.74 L (BEAKER) (test code = 414) MONOCYTES ABSOLUTE COUNT (BEAKER) 0.67 K/ L 0.24-0.36 H (test code = 415) EOSINOPHILS ABSOLUTE COUNT 0.03 K/ L 0.04-0.36 L (BEAKER) (test code = 416) BASOPHILS ABSOLUTE COUNT (BEAKER) 0.02 K/ L 0.01-0.08 (test code = 417) IMMATURE GRANULOCYTES-RELATIVE 1 % 0-1 PERCENT (BEAKER) (test code = 2801) POCT-GLUCOSE [id number] 00:13:00 Test Item Value Reference Range Interpretation Comments POC-GLUCOSE METER 143 mg/dL 70-110 H TESTED AT [facility] 6720 ([facility]) (test code = [place] 1538) [address] TROPONIN [id number] 20:52:00 Test Item Value Reference Range Interpretation Comments TROPONIN I (BEAKER) (test code = 0.91 ng/mL 0.00-0.03 397) Troponin I (TnI) levels must be interpreted [...] disease, and persistent tachyarrhythmia.LACTIC ACID, VENOUS, WHOLE BLOOD 2018-10-05 20:20:00 Test Item Value Reference Range Interpretation Comments LACTATE BLOOD VENOUS (2) (BEAKER) 0.8 mmol/L 0.5-2.2 (test code = 2872) HEMOGLOBIN AND [id number] 20:08:00 Test Item Value Reference Range Interpretation Comments HEMOGLOBIN (BEAKER) (test code = 12.3 GM/DL 11.2-15.7 410) HEMATOCRIT (BEAKER) (test code = 37.4 % 34.1-44.9 411) HEMOGLOBIN AND [id number] 13:24:00 Test Item Value Reference Range Interpretation Comments HEMOGLOBIN (BEAKER) (test code = 11.8 GM/DL 11.2-15.7 410) HEMATOCRIT (BEAKER) (test code = 35.8 % 34.1-44.9 411) [id number] 12:51:00 Test Item Value Reference Range Interpretation Comments FERRITIN (BEAKER) (test code = 361) 155 ng/mL 5-275 POCT-GLUCOSE [id number] 12:20:00 Test Item Value Reference Range Interpretation Comments POC-GLUCOSE METER 154 mg/dL 70-110 H TESTED AT [facility] 6720 (BEAKER) [facility] 1538[facility] [id number] IRON, TIBC, % SAT. (WITHOUT FERRITIN)2018-10-05 10:36:00 Test Item Value Reference Range Interpretation Comments IRON (BEAKER) (test code = 547) 41.0 ug/dL 40.0-160.0 TOTAL IRON BINDING CAPACITY 185 ug/dL 250-450 L (BEAKER) (test code = 769) IRON % SATURATION (2) (BEAKER) 22 % 20-55 (test code = 2590) HEMOGLOBIN [id number] 10:31:00 Test Item Value Reference Range Interpretation Comments HEMOGLOBIN A1C (BEAKER) (test code = 4.7 % 4.3-6.1 368) VITAMIN [id number] 09:05:00 Test Item Value Reference Range Interpretation Comments VITAMIN B12 (MARIA ELE[place]) (test code = 885 pg/mL 213-816 H 774) POCT-GLUCOSE [id number] 07:16:00 Test Item Value Reference Range Interpretation Comments POC-GLUCOSE METER 152 mg/dL 70-110 H TESTED AT [facility] 6720 (MARIA ELENA) (test code = [place] 1538) [address] RAD, CHEST, 1 VIEW, NON [id number] 06:56:00Reason for exam:->pulm edemaShould this be performed at the bedside?->YesFINAL REPORT RAD, CHEST, 1 VIEW, NON DEPT INDICATION: pulm edema COMPARISON: Prior day's exam FINDINGS: Portable frontal view of the chest. IMPRESSION: Lungs and pleura: Unchanged airspace and pleural opacities. No pneumothorax.Heart and mediastinum: Stable contours. Additional findings: None. Signed: Rell Mcgovern Verified Date/Time: 10/05/2018 06:56:36 Reading Location: [address] Transitional Reading Room TROPONIN [id number] 06:09:00 Test Item Value Reference Range Interpretation Comments TROPONIN I ([place] E[place]) (test code = 1.52 ng/mL 0.00-0.03 397) Troponin I (TnI) levels must be interpreted [...] acute neurological disease, and persistent tachyarrhythmia.BASIC METABOLIC [id number] 05:51:00 Test Item Value Reference Range Interpretation Comments SODIUM (AYADAKER) 140 meq/L 136-145 (test code = 381) POTASSIUM (AYADAKER) 2.8 meq/L 3.5-5.1 L (test code = 379) CHLORIDE (BEAKER) 106 meq/L 98-107 (test code = 382) CO2 (BEAKER) (test 23 meq/L 22-29 code = 355) BLOOD UREA NITROGEN 4 mg/dL 7-21 L (BEAKER) (test code = 354) CREATININE (BEAKER) 0.58 mg/dL 0.57-1.25 (test code = 358) GLUCOSE RANDOM 151 mg/dL 70-105 H (BEAKER) (test code = 652) CALCIUM (BEAKER) 7.9 mg/dL 8.4-10.2 L (test code = 697) EGFR (BEAKER) (test 108 mL/min/1.73 ESTIM ATED GFR IS code = 1092) sq m NOT ACCURATE CREATININE CLEARANCE IN PREDICTING GLOMERULAR FILTRATION RATE . ESTIMATED GFR I S NOT APPLICABLE FOR DIALYSIS PATIEN TS. [id number] 05:20:00 Test Item Value Reference Range Interpretation Comments PHOSPHORUS (BEAKER) (test code = 2.2 mg/dL 2.3-4.7 L 604) [id number] 05:20:00 Test Item Value Reference Range Interpretation Comments MAGNESIUM (BEAKER) (test code = 1.8 mg/dL 1.6-2.6 627) HEMOGLOBIN AND [id number] 05:01:00 Test Item Value Reference Range Interpretation Comments HEMOGLOBIN (BEAKER) (test code = 11.4 GM/DL 11.2-15.7 410) HEMATOCRIT (BEAKER) (test code = 34.4 % 34.1-44.9 411) CBC W/PLT COUNT & AUTO [id number] 04:58:00 Test Item Value Reference Range Interpretation Comments WHITE BLOOD CELL COUNT (BEAKER) 6.2 K/ L 3.5-10.5 (test code = 775) RED BLOOD CELL COUNT (BEAKER) 3.63 M/ L 3.93-5.22 L (test code = 761) HEMOGLOBIN (BEAKER) (test code = 11.3 GM/DL 11.2-15.7 410) HEMATOCRIT (BEAKER) (test code = 34.3 % 34.1-44.9 411) MEAN CORPUSCULAR VOLUME (BEAKER) 94.5 fL 79.4-94.8 (test code = 753) MEAN CORPUSCULAR HEMOGLOBIN 31.1 pg 25.6-32.2 (BEAKER) (test code = 751) MEAN CORPUSCULAR HEMOGLOBIN CONC 32.9 GM/DL 32.2-35.5 (BEAKER) (test code = 752) RED CELL DISTRIBUTION WIDTH 18.5 % 11.7-14.4 H (BEAKER) (test code = 412) PLATELET COUNT (BEAKER) (test 142 K/CU MM 150-450 L code = 756) MEAN PLATELET VOLUME (BEAKER) 9.7 fL 9.4-12.3 (test code = 754) NUCLEATED RED BLOOD CELLS 0 /100 WBC 0-0 (BEAKER) (test code = 413) NEUTROPHILS RELATIVE PERCENT 76 % (BEAKER) (test code = 429) LYMPHOCYTES RELATIVE PERCENT 13 % (BEAKER) (test code = 430) MONOCYTES RELATIVE PERCENT 11 % (BEAKER) (test code = 431) EOSINOPHILS RELATIVE PERCENT 0 % (BEAKER) (test code = 432) BASOPHILS RELATIVE PERCENT 0 % (BEAKER) (test code = 437) NEUTROPHILS ABSOLUTE COUNT 4.68 K/ L 1.56-6.13 (BEAKER) (test code = 670) LYMPHOCYTES ABSOLUTE COUNT 0.77 K/ L 1.18-3.74 L (BEAKER) (test code = 414) MONOCYTES ABSOLUTE COUNT (BEAKER) 0.67 K/ L 0.24-0.36 H (test code = 415) EOSINOPHILS ABSOLUTE COUNT 0.01 K/ L 0.04-0.36 L (BEAKER) (test code = 416) BASOPHILS ABSOLUTE COUNT (BEAKER) 0.01 K/ L 0.01-0.08 (test code = 417) IMMATURE GRANULOCYTES-RELATIVE 1 % 0-1 PERCENT (BEAKER) (test code = 2801) TROPONIN [id number] 01:17:00 Test Item Value Reference Range Interpretation Comments TROPONIN I (BEAKER) (test code = 1.40 ng/mL 0.00-0.03 [facility]) Troponin I (TnI) levels must be interpreted [...] acute neurological disease, and persistent tachyarrhythmia.HEMOGLOBIN AND [id number] 00:52:00 Test Item Value Reference Range Interpretation Comments HEMOGLOBIN (BEAKER) (test code = 12.1 GM/DL 11.2-15.7 410) HEMATOCRIT (BEAKER) (test code = 36.4 % 34.1-44.9 411) POCT-GLUCOSE [id number] 00:34:00 Test Item Value Reference Range Interpretation Comments POC-GLUCOSE METER 164 mg/dL 70-110 H TESTED AT [facility] 6720 (BEAKER) (test code = [place] 1538) [address] TROPONIN [id number] 22:08:00 Test Item Value Reference Range Interpretation Comments TROPONIN I (BEAKER) (test code = 1.39 ng/mL 0.00-0.03 HH 397) Troponin I (TnI) levels must be interpreted [...] failure, acidosis, acute neurological disease, and persistent tachyarrhythmia.[id number] 21:56:00 Test Item Value Reference Range Interpretation Comments PHOSPHORUS (BEAKER) (test code = 2.1 mg/dL 2.3-4.7 L 604) [id number] 21:56:00 Test Item Value Reference Range Interpretation Comments MAGNESIUM (BEAKER) (test code = 2.1 mg/dL 1.6-2.6 627) BASIC METABOLIC [id number] 21:56:00 Test Item Value Reference Range Interpretation Comments SODIUM (BEAKER) 139 meq/L 136-145 (test code = 381) POTASSIUM (BEAKER) 3.2 meq/L 3.5-5.1 L (test code = 379) CHLORIDE (BEAKER) 105 meq/L 98-107 (test code = 382) CO2 (BEAKER) (test 22 meq/L 22-29 code = 355) BLOOD UREA NITROGEN 4 mg/dL 7-21 L (BEAKER) (test code = 354) CREATININE (BEAKER) 0.70 mg/dL 0.57-1.25 (test code = 358) GLUCOSE RANDOM 165 mg/dL 70-105 H (BEAKER) (test code = 652) CALCIUM (BEAKER) 8.0 mg/dL 8.4-10.2 L (test code = 697) EGFR (BEAKER) (test 87 mL/min/1.73 ESTIMA JENELLE GFR IS code = 1092) sq m NOT ACCURATE CREATININE CLEARANCE IN PREDICTING GLOMERULAR FILTRATION RATE . ESTIMATED GFR I S NOT APPLICABLE FOR DIALYSIS PATIEN TS. [id number] 21:56:00 Test Item Value Reference Range Interpretation Comments PHOSPHORUS (BEAKER) (test code = 2.1 mg/dL 2.3-4.7 L 604) [id number] 21:56:00 Test Item Value Reference Range Interpretation Comments MAGNESIUM (BEAKER) (test code = 2.1 mg/dL 1.6-2.6 627) BASIC METABOLIC [id number] 21:56:00 Test Item Value Reference Range Interpretation Comments SODIUM (BEAKER) 139 meq/L 136-145 (test code = 381) POTASSIUM (BEAKER) 3.2 meq/L 3.5-5.1 L (test code = 379) CHLORIDE (BEAKER) 104 meq/L 98-107 (test code = 382) CO2 (BEAKER) (test 22 meq/L 22-29 code = 355) BLOOD UREA NITROGEN 5 mg/dL 7-21 L (BEAKER) (test code = 354) CREATININE (BEAKER) 0.70 mg/dL 0.57-1.25 (test code = 358) GLUCOSE RANDOM 165 mg/dL 70-105 H (BEAKER) (test code = 652) CALCIUM (BEAKER) 8.2 mg/dL 8.4-10.2 L (test code = 697) EGFR (BEAKER) (test 87 mL/min/1.73 ESTIMA JENELLE GFR IS code = 1092) sq m NOT ACCURATE CREATININE CLEARANCE IN PREDICTING GLOMERULAR FILTRATION RATE . ESTIMATED GFR I S NOT APPLICABLE FOR DIALYSIS PATIEN TS. BLOOD GAS, [id number] 21:46:00 Test Item Value Reference Range Interpretation Comments PH ARTERIAL (BEAKER) (test code = 7.37 7.35-7.45 383) PCO2 ARTERIAL (BEAKER) (test code 43 mmHg 35-45 = 384) PO2 ARTERIAL (BEAKER) (test code 89 mmHg 80-90 = 385) O2 SATURATION ARTERIAL (BEAKER) 95.9 % 96.0-97.0 L (test code = 386) HCO3 ARTERIAL (BEAKER) (test code 24 mmol/L 21-29 = 388) BASE EXCESS ARTERIAL (BEAKER) -0.8 mmol/L -2.0-3.0 (test code = 387) PATIENT TEMPERATURE (BEAKER) 38.5 C (test code = 1818) FIO2 (BEAKER) (test code = 1819) 100.0 % CALCIUM, [id number] 21:46:00 Test Item Value Reference Range Interpretation Comments CALCIUM IONIZED (BEAKER) (test 1.10 mmol/L 1.12-1.27 L code = 698) PH, BLOOD (BEAKER) (test code = 7.39 1810) URINALYSIS W/ REFLEX URINE [id number] 20:34:00 Test Item Value Reference Range Interpretation Comments COLOR (BEAKER) (test code = 470) Yellow CLARITY (BEAKER) (test code = 469) Clear SPECIFIC GRAVITY UA (BEAKER) (test 1.009 1.001-1.035 code = 468) PH UA (BEAKER) (test code = 467) 6.5 5.0-8.0 PROTEIN UA (BEAKER) (test code = 30 mg/dL Negative A 464) GLUCOSE UA (BEAKER) (test code = Negative Negative 365) KETONES UA (BEAKER) (test code = 40 mg/dL Negative A 371) BILIRUBIN UA (BEAKER) (test code = Negative Negative 462) BLOOD UA (BEAKER) (test code = 461) Small Negative A NITRITE UA (BEAKER) (test code = Negative Negative 465) LEUKOCYTE ESTERASE UA (BEAKER) Negative Negative (test code = 466) UROBILINOGEN UA (BEAKER) (test code 0.2 mg/dL 0.2-1.0 = 463) RBC UA (BEAKER) (test code = 519) 13 /HPF WBC UA (BEAKER) (test code = 520) 3 /HPF SOURCE(BEAKER) (test code = 8325) TSH/FREE T4 IF [id number] 19:24:00 Test Item Value Reference Range Interpretation Comments THYROID STIMULATING HORMONE 0.79 uIU/mL 0.35-4.94 (BEAKER) (test code = 772) BASIC METABOLIC [id number] 18:15:00 Test Item Value Reference Range Interpretation Comments SODIUM (BEAKER) 137 meq/L 136-145 (test code = 381) POTASSIUM (BEAKER) 3.0 meq/L 3.5-5.1 L (test code = 379) CHLORIDE (BEAKER) 102 meq/L 98-107 (test code = 382) CO2 (BEAKER) (test 26 meq/L 22-29 code = 355) BLOOD UREA NITROGEN 4 mg/dL 7-21 L (BEAKER) (test code = 354) CREATININE (BEAKER) 0.79 mg/dL 0.57-1.25 (test code = 358) GLUCOSE RANDOM 173 mg/dL 70-105 H (BEAKER) (test code = 652) CALCIUM (BEAKER) 8.3 mg/dL 8.4-10.2 L (test code = 697) EGFR (BEAKER) (test 75 mL/min/1.73 ESTIMA JENELLE GFR IS code = 1092) sq m NOT ACCURATE CREATININE CLEARANCE IN PREDICTING GLOMERULAR FILTRATION RATE . ESTIMATED GFR I S NOT APPLICABLE FOR DIALYSIS PATIEN TS. LACTIC ACID, VENOUS, WHOLE [id number] 18:13:00 Test Item Value Reference Range Interpretation Comments LACTATE BLOOD VENOUS (2) (BEAKER) 1.0 mmol/L 0.5-2.2 (test code = 2872) [id number] 18:08:00 Test Item Value Reference Range Interpretation Comments AMMONIA (BEAKER) (test code = 348) 33 mol/L 18-72 HEMOGLOBIN AND [id number] 18:02:00 Test Item Value Reference Range Interpretation Comments HEMOGLOBIN (BEAKER) (test code = 12.2 GM/DL 11.2-15.7 410) HEMATOCRIT (BEAKER) (test code = 37.2 % 34.1-44.9 411) TROPONIN [id number] 17:28:00 Test Item Value Reference Range Interpretation Comments TROPONIN I (BEAKER) (test code = 1.30 ng/mL 0.00-0.03 HH 397) Troponin I (TnI) levels must be interpreted [...] disease, and persistent tachyarrhythmia.LACTIC ACID, VENOUS, WHOLE BLOOD 2018-10-04 17:15:00 Test Item Value Reference Range Interpretation Comments LACTATE BLOOD VENOUS (2) (BEAKER) 1.1 mmol/L 0.5-2.2 (test code = 2872) POCT-GLUCOSE [id number] 16:55:00 Test Item Value Reference Range Interpretation Comments POC-GLUCOSE METER 186 mg/dL 70-110 H TESTED AT [facility] 6720 (BEAKER) (test code = [place] 1538) [address] KETONE, [id number] 15:19:00 Test Item Value Reference Range Interpretation Comments KETONES, BLOOD (BEAKER) (test code 1.0 mmol/L <0.4 H = 1103) [id number] 15:19:00 Test Item Value Reference Range Interpretation Comments PHOSPHORUS (BEAKER) (test code = 604) < mg/dL 2.3-4.7 LL RAD, CHEST, 1 VIEW, NON [id number] 15:17:00Post-intubationReason for exam:- >SHOTNESS OF BREATH, R/O PULM EDEMAShould this be performed at the bedside?->YesFINAL REPORT Chest dated 10/04/2018 COMPARISON: May 05, 2018 Clinical Information: SHOTNESS OF BREATH, R/O PULM EDEMA Comment: Heart is enlarged. Pulmonary vasculature is indistinct. Interstitial disease is seen bilaterally suggestive of vascular congestion. No pleural effusion or pneumothorax is seen. Impression: Cardiomegaly with vascular congestion. Signed: Maria R HarrisMDReport Verified Date/Time: 10/04/2018 15:17:58 Reading Location: [address] Radiology Reading Room OSMOLALITY, [id number] 15:16:00 Test Item Value Reference Range Interpretation Comments OSMOLALITY, SERUM (BEAKER) (test 291 mOsm/kg 275-295 code = 615) LIPID [id number] 15:15:00 Test Item Value Reference Range Interpretation Comments TRIGLYCERIDES (BEAKER) (test code = 262 mg/dL 540) CHOLESTEROL (BEAKER) (test code = 177 mg/dL 631) HDL CHOLESTEROL (BEAKER) (test code 39 mg/dL = 976) LDL CHOLESTEROL CALCULATED (BEAKER) 86 mg/dL (test code = 633) Triglyceride Reference Range: Low Risk <150 Borderline 150-199 High Risk 200-499 Very High Risk >=500Cholesterol Reference Range: Low Risk <200 Borderline 200-239 High Risk >240HDL Cholesterol Reference Range: Low Risk >=60 High Risk <40LDL Cholesterol Reference Range: Optimal <100 Near Optimal 100-129 Borderline 130-159 High 160-189 Very High >=[id number] 15:15:00 Test Item Value Reference Range Interpretation Comments LIPASE (BEAKER) (test code = 749) 338 U/L 8-78 H [id number] 15:13:00 Test Item Value Reference Range Interpretation Comments MAGNESIUM (BEAKER) (test code = 1.3 mg/dL 1.6-2.6 L 627) LACTIC ACID, VENOUS, WHOLE [id number] 15:10:00 Test Item Value Reference Range Interpretation Comments LACTATE BLOOD VENOUS (2) (BEAKER) 1.2 mmol/L 0.5-2.2 (test code = 2872) CBC W/PLT COUNT & AUTO [id number] 15:06:00 Test Item Value Reference Range Interpretation Comments WHITE BLOOD CELL COUNT (BEAKER) 7.8 K/ L 3.5-10.5 (test code = 775) RED BLOOD CELL COUNT (BEAKER) 3.85 M/ L 3.93-5.22 L (test code = 761) HEMOGLOBIN (BEAKER) (test code = 11.9 GM/DL 11.2-15.7 410) HEMATOCRIT (BEAKER) (test code = 36.0 % 34.1-44.9 411) MEAN CORPUSCULAR VOLUME (BEAKER) 93.5 fL 79.4-94.8 (test code = 753) MEAN CORPUSCULAR HEMOGLOBIN 30.9 pg 25.6-32.2 (BEAKER) (test code = 751) MEAN CORPUSCULAR HEMOGLOBIN CONC 33.1 GM/DL 32.2-35.5 (BEAKER) (test code = 752) RED CELL DISTRIBUTION WIDTH 17.7 % 11.7-14.4 H (BEAKER) (test code = 412) PLATELET COUNT (BEAKER) (test 151 K/CU MM 150-450 code = 756) MEAN PLATELET VOLUME (BEAKER) 9.2 fL 9.4-12.3 L (test code = 754) NUCLEATED RED BLOOD CELLS 0 /100 WBC 0-0 (BEAKER) (test code = 413) NEUTROPHILS RELATIVE PERCENT 79 % (BEAKER) (test code = 429) LYMPHOCYTES RELATIVE PERCENT 9 % (BEAKER) (test code = 430) MONOCYTES RELATIVE PERCENT 11 % (BEAKER) (test code = 431) EOSINOPHILS RELATIVE PERCENT 0 % (BEAKER) (test code = 432) BASOPHILS RELATIVE PERCENT 0 % (BEAKER) (test code = 437) NEUTROPHILS ABSOLUTE COUNT 6.22 K/ L 1.56-6.13 H (BEAKER) (test code = 670) LYMPHOCYTES ABSOLUTE COUNT 0.71 K/ L 1.18-3.74 L (BEAKER) (test code = 414) MONOCYTES ABSOLUTE COUNT (BEAKER) 0.83 K/ L 0.24-0.36 H (test code = 415) EOSINOPHILS ABSOLUTE COUNT 0.01 K/ L 0.04-0.36 L (BEAKER) (test code = 416) BASOPHILS ABSOLUTE COUNT (BEAKER) 0.01 K/ L 0.01-0.08 (test code = 417) IMMATURE GRANULOCYTES-RELATIVE 1 % 0-1 PERCENT (BEAKER) (test code = 2801) OXYGEN SATURATION, [id number] 14:59:00 Test Item Value Reference Range Interpretation Comments O2 SATURATION (MEASURED) (BEAKER) 69.6 % (test code = 1455) FEMORAL LINEBLOOD GAS, [id number] 14:51:00 Test Item Value Reference Range Interpretation Comments PH ARTERIAL (BEAKER) (test code = 7.39 7.35-7.45 383) PCO2 ARTERIAL (BEAKER) (test code 41 mmHg 35-45 = 384) PO2 ARTERIAL (BEAKER) (test code 81 mmHg 80-90 = 385) O2 SATURATION ARTERIAL (BEAKER) 95.4 % 96.0-97.0 L (test code = 386) HCO3 ARTERIAL (BEAKER) (test code 24 mmol/L 21-29 = 388) BASE EXCESS ARTERIAL (BEAKER) -0.5 mmol/L -2.0-3.0 (test code = 387) PATIENT TEMPERATURE (BEAKER) 38.0 C (test code = 1818) FIO2 (BEAKER) (test code = 1819) 30.0 % TROPONIN [id number] 13:55:00 Test Item Value Reference Range Interpretation Comments TROPONIN I (BEAKER) (test code = 1.11 ng/mL 0.00-0.03 HH 397) Troponin I (TnI) levels must be interpreted [...] disease, and persistent tachyarrhythmia.B-TYPE NATRIURETIC FACTOR (BNP) 2018-10-04 13:51:00 Test Item Value Reference Range Interpretation Comments B-TYPE NATRIURETIC PEPTIDE 1275 pg/mL 0-100 H (BEAKER) (test code = 700) COMPREHENSIVE METABOLIC [id number] 13:45:00 Test Item Value Reference Range Interpretation Comments TOTAL PROTEIN 5.9 gm/dL 6.0-8.3 L (BEAKER) (test code = 770) ALBUMIN (BEAKER) 3.5 g/dL 3.5-5.0 (test code = 1145) ALKALINE PHOSPHATASE 54 U/L 40-150 (BEAKER) (test code = 346) BILIRUBIN TOTAL 1.2 mg/dL 0.2-1.2 (BEAKER) (test code = 377) SODIUM (BEAKER) (test 135 meq/L 136-145 L code = 381) POTASSIUM (BEAKER) 2.8 meq/L 3.5-5.1 L (test code = 379) CHLORIDE (BEAKER) 100 meq/L 98-107 (test code = 382) CO2 (BEAKER) (test 22 meq/L 22-29 code = 355) BLOOD UREA NITROGEN 4 mg/dL 7-21 L (BEAKER) (test code = 354) CREATININE (BEAKER) 0.91 mg/dL 0.57-1.25 (test code = 358) GLUCOSE RANDOM 279 mg/dL 70-105 H (BEAKER) (test code = 652) CALCIUM (BEAKER) 8.0 mg/dL 8.4-10.2 L (test code = 697) AST (SGOT) (BEAKER) 57 U/L 5-34 H (test code = 353) ALT (SGPT) (BEAKER) 45 U/L 6-55 (test code = 347) EGFR (BEAKER) (test 64 mL/min/1.73 ESTIMA JENELLE GFR IS code = 1092) sq m NOT ACCURATE CREATININE CLEARANCE IN PREDICTING GLOMERULAR FILTRATION RATE . ESTIMATED GFR I S NOT APPLICABLE FOR DIALYSIS PATIEN TS. LACTIC ACID, VENOUS, WHOLE [id number] 13:41:00 Test Item Value Reference Range Interpretation Comments LACTATE BLOOD VENOUS (2) (BEAKER) 1.3 mmol/L 0.5-2.2 (test code = 2872) [id number] 13:39:00 Test Item Value Reference Range Interpretation Comments PARTIAL THROMBOPLASTIN TIME 30.3 seconds 22.5-36.0 (BEAKER) (test code = 760) [id number] 13:39:00 Test Item Value Reference Range Interpretation Comments FIBRINOGEN LEVEL (BEAKER) (test 284 mg/dl 225-434 code = 658) PROTHROMBIN [id number] 13:38:00 Test Item Value Reference Range Interpretation Comments PROTIME (BEAKER) (test code = 13.4 seconds 11.7-14.7 759) INR (BEAKER) (test code = 370) 1.0 <=5.9 RECOMMENDED COUMADIN/WARFARIN INR THERAPY RANGESSTANDARD DOSE: 2.0 - 3.0 Includes: PROPHYLAXIS forvenous thrombosis, systemic embolization; TREATMENT for venous thrombosis and/or pulmonary embolus.HIGH RISK: Target INR is 2.5-3.5 for patients with mechanical heart valves.POCT-GLUCOSE [id number] 18:40:00 Test Item Value Reference Range Interpretation Comments POC-GLUCOSE METER 148 mg/dL 70-110 H TESTED AT [facility] [address] ([facility]) (test code = [place] 1538) [address] POCT-GLUCOSE [id number] 07:43:00 Test Item Value Reference Range Interpretation Comments POC-GLUCOSE METER 112 mg/dL 70-110 H TESTED AT [facility] [address] (BEAKER) (test code = [place] 1538) [address] [id number] 07:13:00 Test Item Value Reference Range Interpretation Comments MAGNESIUM (BEAKER) (test code = 1.4 mg/dL 1.6-2.6 L 627) BASIC METABOLIC [id number] 07:13:00 Test Item Value Reference Range Interpretation Comments SODIUM (BEAKER) 141 meq/L 136-145 (test code = 381) POTASSIUM (BEAKER) 4.9 meq/L 3.5-5.1 (test code = 379) CHLORIDE (BEAKER) 102 meq/L 98-107 (test code = 382) CO2 (BEAKER) (test 32 meq/L 22-29 H code = 355) BLOOD UREA NITROGEN 12 mg/dL 7-21 (BEAKER) (test code = 354) CREATININE (BEAKER) 0.73 mg/dL 0.57-1.25 (test code = 358) GLUCOSE RANDOM 118 mg/dL 70-105 H (BEAKER) (test code = 652) CALCIUM (BEAKER) 9.0 mg/dL 8.4-10.2 (test code = 697) EGFR (BEAKER) (test 83 mL/min/1.73 ESTIMA JENELLE GFR IS code = 1092) sq m NOT ACCURATE CREATININE CLEARANCE IN PREDICTING GLOMERULAR FILTRATION RATE . ESTIMATED GFR I S NOT APPLICABLE FOR DIALYSIS PATIEN TS. POCT-GLUCOSE [id number] 22:09:00 Test Item Value Reference Range Interpretation Comments POC-GLUCOSE METER 161 mg/dL 70-110 H TESTED AT [facility] [address] (BEAKER) (test code = [place] 1538) [address] POCT-GLUCOSE [id number] 17:46:00 Test Item Value Reference Range Interpretation Comments POC-GLUCOSE METER 148 mg/dL 70-110 H TESTED AT [facility] [address] (BEAKER) (test code = [place] 1538) [address] POCT-GLUCOSE [id number] 12:00:00 Test Item Value Reference Range Interpretation Comments POC-GLUCOSE METER 137 mg/dL 70-110 H TESTED AT [facility] [address] (BEAKER) (test code = [place] 1538) [address] POCT-GLUCOSE [id number] 07:55:00 Test Item Value Reference Range Interpretation Comments POC-GLUCOSE METER 141 mg/dL 70-110 H TESTED AT [facility] [address] (BEAKER) (test code = [place] 1538) [address] [id number] 05:30:00 Test Item Value Reference Range Interpretation Comments MAGNESIUM (BEAKER) (test code = 1.4 mg/dL 1.6-2.6 L 627) BASIC METABOLIC [id number] 05:30:00 Test Item Value Reference Range Interpretation Comments SODIUM (BEAKER) 137 meq/L 136-145 (test code = 381) POTASSIUM (BEAKER) 4.9 meq/L 3.5-5.1 (test code = 379) CHLORIDE (BEAKER) 100 meq/L 98-107 (test code = 382) CO2 (BEAKER) (test 30 meq/L 22-29 H code = 355) BLOOD UREA NITROGEN 16 mg/dL 7-21 (BEAKER) (test code = 354) CREATININE (BEAKER) 0.68 mg/dL 0.57-1.25 (test code = 358) GLUCOSE RANDOM 104 mg/dL 70-105 (BEAKER) (test code = 652) CALCIUM (BEAKER) 8.8 mg/dL 8.4-10.2 (test code = 697) EGFR (BEAKER) (test 90 mL/min/1.73 ESTIMA JENELLE GFR IS code = 1092) sq m NOT ACCURATE CREATININE CLEARANCE IN PREDICTING GLOMERULAR FILTRATION RATE . ESTIMATED GFR I S NOT APPLICABLE FOR DIALYSIS PATIEN TS. HEMOGLOBIN AND [id number] 05:07:00 Test Item Value Reference Range Interpretation Comments HEMOGLOBIN (BEAKER) (test code = 8.8 GM/DL 11.2-15.7 L 410) HEMATOCRIT (BEAKER) (test code = 28.4 % 34.1-44.9 L 411) BLOOD [id number] 00:00:00 Test Item Value Reference Range Interpretation Comments CULTURE (BEAKER) (test No growth in 5 days code = 1095) BLOOD [id number] 00:00:00 Test Item Value Reference Range Interpretation Comments CULTURE (BEAKER) (test No growth in 5 days code = 1095) POCT-GLUCOSE [id number] 22:59:00 Test Item Value Reference Range Interpretation Comments POC-GLUCOSE METER 141 mg/dL 70-110 H TESTED AT [place] [address] (BEAKER) (test code = [place] 1538) [address] HEMOGLOBIN AND [id number] 16:50:00 Test Item Value Reference Range Interpretation Comments HEMOGLOBIN (BEAKER) (test code = 9.6 GM/DL 11.2-15.7 L 410) HEMATOCRIT (BEAKER) (test code = 30.8 % 34.1-44.9 L 411) POCT-GLUCOSE [id number] 13:15:00 Test Item Value Reference Range Interpretation Comments POC-GLUCOSE METER 144 mg/dL 70-110 H TESTED AT [place] [address] ([facility]) (test code = [place] 1538) [address] POCT-GLUCOSE [id number] 08:27:00 Test Item Value Reference Range Interpretation Comments POC-GLUCOSE METER 125 mg/dL 70-110 H [facility] AT [place] [address] ([facility] (test code = [facility] [place] 1538) [address] [id number] 07:54:00 Test Item Value Reference Range Interpretation Comments MAGNESIUM (BEAKER) (test code = 1.0 mg/dL 1.6-2.6 LL 627) BASIC METABOLIC [id number] 07:25:00 Test Item Value Reference Range Interpretation Comments SODIUM (BEAKER) 138 meq/L 136-145 (test code = 381) POTASSIUM (BEAKER) 4.1 meq/L 3.5-5.1 (test code = 379) CHLORIDE (BEAKER) 102 meq/L 98-107 (test code = 382) CO2 (BEAKER) (test 29 meq/L 22-29 code = 355) BLOOD UREA NITROGEN 23 mg/dL 7-21 H (BEAKER) (test code = 354) CREATININE (BEAKER) 0.79 mg/dL 0.57-1.25 (test code = 358) GLUCOSE RANDOM 122 mg/dL 70-105 H (BEAKER) (test code = 652) CALCIUM (BEAKER) 8.6 mg/dL 8.4-10.2 (test code = 697) EGFR (BEAKER) (test 76 mL/min/1.73 ESTIMA JENELLE GFR IS code = 1092) sq m NOT ACCURATE CREATININE CLEARANCE IN PREDICTING GLOMERULAR FILTRATION RATE . ESTIMATED GFR I S NOT APPLICABLE FOR DIALYSIS PATIEN TS. HEMOGLOBIN AND [id number] 07:15:00 Test Item Value Reference Range Interpretation Comments HEMOGLOBIN (BEAKER) (test code = 8.5 GM/DL 11.2-15.7 L 410) HEMATOCRIT (BEAKER) (test code = 27.0 % 34.1-44.9 L 411) CBC W/PLT COUNT & AUTO [id number] 07:15:00 Test Item Value Reference Range Interpretation Comments WHITE BLOOD CELL COUNT (BEAKER) 6.5 K/ L 3.5-10.5 (test code = 775) RED BLOOD CELL COUNT (BEAKER) 2.63 M/ L 3.93-5.22 L (test code = 761) HEMOGLOBIN (BEAKER) (test code = 8.5 GM/DL 11.2-15.7 L 410) HEMATOCRIT (BEAKER) (test code = 27.0 % 34.1-44.9 L 411) MEAN CORPUSCULAR VOLUME (BEAKER) 102.7 fL 79.4-94.8 H (test code = 753) MEAN CORPUSCULAR HEMOGLOBIN 32.3 pg 25.6-32.2 H (BEAKER) (test code = 751) MEAN CORPUSCULAR HEMOGLOBIN CONC 31.5 GM/DL 32.2-35.5 L (BEAKER) (test code = 752) RED CELL DISTRIBUTION WIDTH 16.9 % 11.7-14.4 H (BEAKER) (test code = 412) PLATELET COUNT (BEAKER) (test 428 K/CU MM 150-450 code = 756) MEAN PLATELET VOLUME (BEAKER) 9.1 fL 9.4-12.3 L (test code = 754) NUCLEATED RED BLOOD CELLS 0 /100 WBC 0-0 (BEAKER) (test code = 413) NEUTROPHILS RELATIVE PERCENT 72 % (BEAKER) (test code = 429) LYMPHOCYTES RELATIVE PERCENT 16 % (BEAKER) (test code = 430) MONOCYTES RELATIVE PERCENT 10 % (BEAKER) (test code = 431) EOSINOPHILS RELATIVE PERCENT 1 % (BEAKER) (test code = 432) BASOPHILS RELATIVE PERCENT 0 % (BEAKER) (test code = 437) NEUTROPHILS ABSOLUTE COUNT 4.63 K/ L 1.56-6.13 (BEAKER) (test code = 670) LYMPHOCYTES ABSOLUTE COUNT 1.01 K/ L 1.18-3.74 L (BEAKER) (test code = 414) MONOCYTES ABSOLUTE COUNT (BEAKER) 0.64 K/ L 0.24-0.36 H (test code = 415) EOSINOPHILS ABSOLUTE COUNT 0.04 K/ L 0.04-0.36 (BEAKER) (test code = 416) BASOPHILS ABSOLUTE COUNT (BEAKER) 0.02 K/ L 0.01-0.08 (test code = 417) IMMATURE GRANULOCYTES-RELATIVE 2 % 0-1 H PERCENT (AKER) (test code = 2801) POCT-GLUCOSE [id number] 00:54:00 Test Item Value Reference Range Interpretation Comments POC-GLUCOSE METER 165 mg/dL 70-110 H TESTED AT [place] [address] ([facility]) [facility] [place] [facility] 1538) [address] POCT-GLUCOSE [id number] 18:13:00 Test Item Value Reference Range Interpretation Comments POC-GLUCOSE METER 255 mg/dL 70-110 H TESTED AT [place] [address] ([facility]) (test code = [facility] [place] [facility] 1538) [address] HEMOGLOBIN AND [id number] 17:10:00 Test Item Value Reference Range Interpretation Comments HEMOGLOBIN (BEAKER) (test code = 9.0 GM/DL 11.2-15.7 L 410) HEMATOCRIT ([facility]) (test code = 28.1 % 34.1-44.9 L 411) POCT-GLUCOSE [id number] 11:29:00 Test Item Value Reference Range Interpretation Comments POC-GLUCOSE METER 204 mg/dL 70-110 H TESTED AT [place] [address] ([facility]) (test code = [facility] [place] 1538) [address] CBC W/PLT COUNT & AUTO [id number] 10:04:00 Test Item Value Reference Range Interpretation Comments WHITE BLOOD CELL COUNT (AKER) 7.5 K/ L 3.5-10.5 (test code = 775) RED BLOOD CELL COUNT (AKER) 2.71 M/ L 3.93-5.22 L (test code = 761) HEMOGLOBIN (BEAKER) (test code = 9.0 GM/DL 11.2-15.7 L 410) HEMATOCRIT (BEAKER) (test code = 28.4 % 34.1-44.9 L 411) MEAN CORPUSCULAR VOLUME (BEAKER) 104.8 fL 79.4-94.8 H (test code = 753) MEAN CORPUSCULAR HEMOGLOBIN 33.2 pg 25.6-32.2 H (BEAKER) (test code = 751) MEAN CORPUSCULAR HEMOGLOBIN CONC 31.7 GM/DL 32.2-35.5 L (BEAKER) (test code = 752) RED CELL DISTRIBUTION WIDTH 17.5 % 11.7-14.4 H (BEAKER) (test code = 412) PLATELET COUNT (BEAKER) (test 398 K/CU MM 150-450 code = 756) MEAN PLATELET VOLUME (BEAKER) 9.4 fL 9.4-12.3 (test code = 754) NUCLEATED RED BLOOD CELLS 0 /100 WBC 0-0 (BEAKER) (test code = 413) NEUTROPHILS RELATIVE PERCENT 73 % (BEAKER) (test code = 429) LYMPHOCYTES RELATIVE PERCENT 13 % (BEAKER) (test code = 430) MONOCYTES RELATIVE PERCENT 10 % (BEAKER) (test code = 431) EOSINOPHILS RELATIVE PERCENT 1 % (BEAKER) (test code = 432) BASOPHILS RELATIVE PERCENT 0 % (BEAKER) (test code = 437) NEUTROPHILS ABSOLUTE COUNT 5.47 K/ L 1.56-6.13 (BEAKER) (test code = 670) LYMPHOCYTES ABSOLUTE COUNT 0.95 K/ L 1.18-3.74 L (BEAKER) (test code = 414) MONOCYTES ABSOLUTE COUNT (BEAKER) 0.77 K/ L 0.24-0.36 H (test code = 415) EOSINOPHILS ABSOLUTE COUNT 0.04 K/ L 0.04-0.36 (BEAKER) (test code = 416) BASOPHILS ABSOLUTE COUNT (BEAKER) 0.03 K/ L 0.01-0.08 (test code = 417) IMMATURE GRANULOCYTES-RELATIVE 3 % 0-1 H PERCENT (BEAKER) (test code = 2801) POCT-GLUCOSE [id number] 08:20:00 Test Item Value Reference Range Interpretation Comments POC-GLUCOSE METER 128 mg/dL 70-110 H TESTED AT [facility] [address] (BEAKER) (test code = [place] 1538) [address] [id number] 05:08:00 Test Item Value Reference Range Interpretation Comments MAGNESIUM (BEAKER) 1.3 mg/dL 1.6-2.6 L Specimen slightly (test code = 627) hemolyzed [id number] 05:08:00 Test Item Value Reference Range Interpretation Comments PHOSPHORUS (BEAKER) 2.6 mg/dL 2.3-4.7 Specimen slightly (test code = 604) hemolyzed BASIC METABOLIC [id number] 05:08:00 Test Item Value Reference Range Interpretation Comments SODIUM (BEAKER) 138 meq/L 136-145 (test code = 381) POTASSIUM (BEAKER) 4.3 meq/L 3.5-5.1 Specimen slightly (test code = 379) hemolyzed CHLORIDE (BEAKER) 103 meq/L 98-107 (test code = 382) CO2 (BEAKER) (test 25 meq/L 22-29 code = 355) BLOOD UREA NITROGEN 35 mg/dL 7-21 H (BEAKER) (test code = 354) CREATININE (BEAKER) 0.95 mg/dL 0.57-1.25 Specimen slightly (test code = 358) hemolyzed GLUCOSE RANDOM 107 mg/dL 70-105 H (BEAKER) (test code = 652) CALCIUM (BEAKER) 8.8 mg/dL 8.4-10.2 (test code = 697) EGFR (BEAKER) (test 61 mL/min/1.73 ESTIMA JENELLE GFR IS code = 1092) sq m NOT ACCURATE CREATININE CLEARANCE IN PREDICTING GLOMERULAR FILTRATION RATE . ESTIMATED GFR I S NOT APPLICABLE FOR DIALYSIS PATIEN TS. HEMOGLOBIN AND [id number] 04:46:00 Test Item Value Reference Range Interpretation Comments HEMOGLOBIN (BEAKER) (test code = 8.7 GM/DL 11.2-15.7 L 410) HEMATOCRIT (BEAKER) (test code = 27.8 % 34.1-44.9 L 411) POCT-GLUCOSE [id number] 00:51:00 Test Item Value Reference Range Interpretation Comments POC-GLUCOSE METER 142 mg/dL 70-110 H TESTED AT [facility] [address] (BEAKER) (test code = [place] [facility] 1538) [address] HEMOGLOBIN AND [id number] 20:58:00 Test Item Value Reference Range Interpretation Comments HEMOGLOBIN (BEAKER) (test code = 9.6 GM/DL 11.2-15.7 L 410) HEMATOCRIT (BEAKER) (test code = 29.6 % 34.1-44.9 L 411) POCT-GLUCOSE [id number] 18:36:00 Test Item Value Reference Range Interpretation Comments POC-GLUCOSE METER 228 mg/dL 70-110 H TESTED AT [place] [address] (BEAKER) (test code = [place] [facility] 1538) [address] SPUTUM CULTURE + GRAM [id number] 15:57:00 Test Item Value Reference Range Interpretation Comments CULTURE (BEAKER) 2+ Normal respiratory (test code = 1095) cosme present GRAM STAIN RESULT 4+ WBCs (BEAKER) (test code = 1123) GRAM STAIN RESULT No epithelial cells (BEAKER) (test code = 52314) GRAM STAIN RESULT 1+ yeast (BEAKER) (test code = 53056) HEMOGLOBIN AND [id number] 12:05:00 Test Item Value Reference Range Interpretation Comments HEMOGLOBIN (BEAKER) (test code = 8.5 GM/DL 11.2-15.7 L 410) HEMATOCRIT (BEAKER) (test code = 25.9 % 34.1-44.9 L 411) POCT-GLUCOSE [id number] 11:40:00 Test Item Value Reference Range Interpretation Comments POC-GLUCOSE METER 180 mg/dL 70-110 H TESTED AT [place] [address] (BEAKER) (test code = [place] [facility] 1538) [address] POCT-GLUCOSE [id number] 06:14:00 Test Item Value Reference Range Interpretation Comments POC-GLUCOSE METER 143 mg/dL 70-110 H TESTED AT [place] [address] (BEAKER) (test code = [facility] [place] [facility] 1538) [address] BASIC METABOLIC [id number] 05:05:00 Test Item Value Reference Range Interpretation Comments SODIUM (BEAKER) 136 meq/L 136-145 (test code = 381) POTASSIUM (BEAKER) 4.0 meq/L 3.5-5.1 (test code = 379) CHLORIDE (BEAKER) 101 meq/L 98-107 (test code = 382) CO2 (BEAKER) (test 26 meq/L 22-29 code = 355) BLOOD UREA NITROGEN 44 mg/dL 7-21 H (BEAKER) (test code = 354) CREATININE (BEAKER) 1.82 mg/dL 0.57-1.25 H (test code = 358) GLUCOSE RANDOM 129 mg/dL 70-105 H (BEAKER) (test code = 652) CALCIUM (BEAKER) 8.5 mg/dL 8.4-10.2 (test code = 697) EGFR (BEAKER) (test 29 mL/min/1.73 ESTIMA JENELLE GFR IS code = 1092) sq m NOT ACCURATE CREATININE CLEARANCE IN PREDICTING GLOMERULAR FILTRATION RATE . ESTIMATED GFR I S NOT APPLICABLE FOR DIALYSIS PATIEN TS. VANCOMYCIN LEVEL, [id number] 05:04:00 Test Item Value Reference Range Interpretation Comments VANCOMYCIN RANDOM (BEAKER) (test 23.1 ug/mL code = 523) Reference Range: No [id number] 05:02:00 Test Item Value Reference Range Interpretation Comments PHOSPHORUS (BEAKER) (test code = 3.9 mg/dL 2.3-4.7 604) [id number] 05:02:00 Test Item Value Reference Range Interpretation Comments MAGNESIUM (BEAKER) (test code = 1.4 mg/dL 1.6-2.6 L 627) HEMOGLOBIN AND [id number] 04:36:00 Test Item Value Reference Range Interpretation Comments HEMOGLOBIN (BEAKER) (test code = 7.5 GM/DL 11.2-15.7 L 410) HEMATOCRIT (BEAKER) (test code = 22.8 % 34.1-44.9 L 411) POCT-GLUCOSE [id number] 00:02:00 Test Item Value Reference Range Interpretation Comments POC-GLUCOSE METER 180 mg/dL 70-110 H TESTED AT [facility] 6720 (BEAKER) (test code = [place] 1538) [address] HEMOGLOBIN AND [id number] 20:48:00 Test Item Value Reference Range Interpretation Comments HEMOGLOBIN (BEAKER) (test code = 8.3 GM/DL 11.2-15.7 L 410) HEMATOCRIT (BEAKER) (test code = 25.0 % 34.1-44.9 L 411) POCT-GLUCOSE [id number] 18:14:00 Test Item Value Reference Range Interpretation Comments POC-GLUCOSE METER 131 mg/dL 70-110 H TESTED AT [facility] [address] [facility] (test code = [place] 1538) [address] VANCOMYCIN LEVEL, [id number] 16:48:00 Test Item Value Reference Range Interpretation Comments VANCOMYCIN RANDOM (BEAKER) (test 28.3 ug/mL code = 523) Reference Range: No NormalsPOCT-GLUCOSE [id number] 12:43:00 Test Item Value Reference Range Interpretation Comments POC-GLUCOSE METER 157 mg/dL 70-110 H TESTED AT [facility] [address] [facility] (test code = [place] [facility] 1538) [address] HEMOGLOBIN AND [id number] 12:20:00 Test Item Value Reference Range Interpretation Comments HEMOGLOBIN (BEAKER) (test code = 8.3 GM/DL 11.2-15.7 L 410) HEMATOCRIT (BEAKER) (test code = 25.4 % 34.1-44.9 L 411) BASIC METABOLIC [id number] 05:37:00 Test Item Value Reference Range Interpretation Comments SODIUM (BEAKER) 130 meq/L 136-145 L (test code = 381) POTASSIUM (BEAKER) 4.6 meq/L 3.5-5.1 (test code = 379) CHLORIDE (BEAKER) 98 meq/L 98-107 (test code = 382) CO2 (BEAKER) (test 22 meq/L 22-29 code = 355) BLOOD UREA NITROGEN 44 mg/dL 7-21 H (BEAKER) (test code = 354) CREATININE (BEAKER) 2.84 mg/dL 0.57-1.25 H (test code = 358) GLUCOSE RANDOM 156 mg/dL 70-105 H (BEAKER) (test code = 652) CALCIUM (BEAKER) 8.4 mg/dL 8.4-10.2 (test code = 697) EGFR (BEAKER) (test 17 mL/min/1.73 ESTIMA JENELLE GFR IS code = 1092) sq m NOT ACCURATE CREATININE CLEARANCE IN PREDICTING GLOMERULAR FILTRATION RATE . ESTIMATED GFR I S NOT APPLICABLE FOR DIALYSIS PATIEN TS. CBC W/PLT COUNT & AUTO [id number] 04:41:00 Test Item Value Reference Range Interpretation Comments WHITE BLOOD CELL COUNT (BEAKER) 11.0 K/ L 3.5-10.5 H (test code = 775) RED BLOOD CELL COUNT (BEAKER) 1.87 M/ L 3.93-5.22 L (test code = 761) HEMOGLOBIN (BEAKER) (test code = 6.3 GM/DL 11.2-15.7 L 410) HEMATOCRIT (BEAKER) (test code = 19.9 % 34.1-44.9 L 411) MEAN CORPUSCULAR VOLUME (BEAKER) 106.4 fL 79.4-94.8 H (test code = 753) MEAN CORPUSCULAR HEMOGLOBIN 33.7 pg 25.6-32.2 H (BEAKER) (test code = 751) MEAN CORPUSCULAR HEMOGLOBIN CONC 31.7 GM/DL 32.2-35.5 L (BEAKER) (test code = 752) RED CELL DISTRIBUTION WIDTH 15.0 % 11.7-14.4 H (BEAKER) (test code = 412) PLATELET COUNT (BEAKER) (test 254 K/CU MM 150-450 code = 756) MEAN PLATELET VOLUME (BEAKER) 9.5 fL 9.4-12.3 (test code = 754) NUCLEATED RED BLOOD CELLS 0 /100 WBC 0-0 (BEAKER) (test code = 413) NEUTROPHILS RELATIVE PERCENT 91 % (BEAKER) (test code = 429) LYMPHOCYTES RELATIVE PERCENT 4 % (BEAKER) (test code = 430) MONOCYTES RELATIVE PERCENT 3 % (BEAKER) (test code = 431) EOSINOPHILS RELATIVE PERCENT 0 % (BEAKER) (test code = 432) BASOPHILS RELATIVE PERCENT 0 % (BEAKER) (test code = 437) NEUTROPHILS ABSOLUTE COUNT 10.02 K/ L 1.56-6.13 H (BEAKER) (test code = 670) LYMPHOCYTES ABSOLUTE COUNT 0.44 K/ L 1.18-3.74 L (BEAKER) (test code = 414) MONOCYTES ABSOLUTE COUNT (BEAKER) 0.27 K/ L 0.24-0.36 (test code = 415) EOSINOPHILS ABSOLUTE COUNT 0.00 K/ L 0.04-0.36 L (BEAKER) (test code = 416) BASOPHILS ABSOLUTE COUNT (BEAKER) 0.01 K/ L 0.01-0.08 (test code = 417) IMMATURE GRANULOCYTES-RELATIVE 2 % 0-1 H PERCENT ([facility]) (test code = 2801) POCT-GLUCOSE [id number] 00:06:00 Test Item Value Reference Range Interpretation Comments POC-GLUCOSE METER 174 mg/dL 70-110 H TESTED AT [facility] 67[address] ([facility]) (test code = [place] [facility] 1538) [id number] POCT-GLUCOSE [id number] 17:26:00 Test Item Value Reference Range Interpretation Comments POC-GLUCOSE METER 179 mg/dL 70-110 H TESTED AT [facility] [address] ([facility]) (test code = [place] [facility] 1538) [address] CT, [id number] 17:19:00FINAL REPORT CLINICAL HISTORY: Recent pancreatitis, shock [...] steatosis. Signed: Murtaza Clemens MDReport Verified Date/Time: 05/05/2018 17:19:54 Reading Location: [address] Reading Room TROPONIN I 2018-05-05 16:31:00 Test Item Value Reference Range Interpretation Comments TROPONIN I (BEAKER) (test code = 397) < ng/mL 0.00-0.03 Troponin I (TnI) levels [...] acidosis, acute neurological disease, and persistent tachyarrhythmia.POCT-GLUCOSE [id number] 12:29:00 Test Item Value Reference Range Interpretation Comments POC-GLUCOSE METER 139 mg/dL 70-110 H TESTED AT [facility] 67[address] (BEAKER) (test code = [place] 1538) [id number] URINALYSIS W/ REFLEX URINE [id number] 09:51:00 Test Item Value Reference Range Interpretation Comments COLOR (BEAKER) (test code = 470) Red CLARITY (BEAKER) (test code = 469) Hazy SPECIFIC GRAVITY UA (BEAKER) (test 1.018 1.001-1.035 code = 468) PH UA (BEAKER) (test code = 467) 6.5 5.0-8.0 PROTEIN UA (BEAKER) (test code = 100 mg/dL Negative A 464) GLUCOSE UA (BEAKER) (test code = Negative Negative 365) KETONES UA (BEAKER) (test code = Negative Negative 371) BILIRUBIN UA (BEAKER) (test code = Negative Negative 462) BLOOD UA (BEAKER) (test code = Small Negative A 461) NITRITE UA (BEAKER) (test code = Positive Negative A 465) LEUKOCYTE ESTERASE UA (BEAKER) Moderate Negative A (test code = 466) UROBILINOGEN UA (BEAKER) (test 0.2 mg/dL 0.2-1.0 code = 463) RBC UA (BEAKER) (test code = 519) 2 /HPF WBC UA (BEAKER) (test code = 520) 38 /HPF BACTERIA (BEAKER) (test code = Occasional 517) HYALINE CASTS (BEAKER) (test code 3 /LPF = 514) YEAST (BEAKER) (test code = 1585) Moderate SOURCE(BEAKER) (test code = 2795) SODIUM, RANDOM [id number] 09:46:00 Test Item Value Reference Range Interpretation Comments SODIUM URINE (BEAKER) (test code = 23 meq/L 243) Reference Range: No NormalsCREATININE, RANDOM [id number] 09:32:00 Test Item Value Reference Range Interpretation Comments CREATININE URINE (BEAKER) (test 67.0 mg/dL code = 375) Reference Range: No NormalsUREA NITROGEN, RANDOM [id number] 09:32:00 Test Item Value Reference Range Interpretation Comments UREA NITROGEN URINE (BEAKER) (test 170 mg/dL code = 538) Reference Range: No NormalsLACTIC ACID, ARTERIAL, WHOLE [id number] 09:16:00 Test Item Value Reference Range Interpretation Comments LACTATE BLOOD ARTERIAL (2) 0.8 mmol/L 0.5-2.2 (BEAKER) (test code = 2874) Effective 12/15/2015: Units/Reference Range ChangeNew: 0.5-2.2 mmol/L Previous: 5-20 mg/dLHEMATOCRIT-STAT [id number] 09:02:00 Test Item Value Reference Range Interpretation Comments HEMATOCRIT (BEAKER) (test code = 411) 23.0 % 36.0-45.0 L BLOOD GAS, [id number] 09:02:00 Test Item Value Reference Range Interpretation Comments PH ARTERIAL (BEAKER) (test code = 7.34 7.35-7.45 L 383) PCO2 ARTERIAL (BEAKER) (test code 50 mmHg 35-45 H = 384) PO2 ARTERIAL (BEAKER) (test code 97 mmHg 80-90 H = 385) O2 SATURATION ARTERIAL (BEAKER) 96.8 % 96.0-97.0 (test code = 386) HCO3 ARTERIAL (BEAKER) (test code 26 mmol/L 21-29 = 388) BASE EXCESS ARTERIAL (BEAKER) -0.1 mmol/L -2.0-3.0 (test code = 387) PATIENT TEMPERATURE (BEAKER) 37.5 C (test code = 1818) FIO2 (BEAKER) (test code = 1819) 30.0 % HEMOGLOBIN-STAT [id number] 09:01:00 Test Item Value Reference Range Interpretation Comments HEMOGLOBIN (BEAKER) (test code = 7.7 g/dL 12.0-15.0 L 410) TROPONIN [id number] 08:24:00 Test Item Value Reference Range Interpretation Comments TROPONIN I (BEAKER) (test code = 397) < ng/mL 0.00-0.03 Troponin I (TnI) levels [...] acute neurological disease, and persistent tachyarrhythmia.BASIC METABOLIC [id number] 08:22:00 Test Item Value Reference Range Interpretation Comments SODIUM (BEAKER) 128 meq/L 136-145 L (test code = 381) POTASSIUM (BEAKER) 4.5 meq/L 3.5-5.1 (test code = 379) CHLORIDE (BEAKER) 96 meq/L 98-107 L (test code = 382) CO2 (BEAKER) (test 22 meq/L 22-29 code = 355) BLOOD UREA NITROGEN 44 mg/dL 7-21 H (BEAKER) (test code = 354) CREATININE (BEAKER) 3.93 mg/dL 0.57-1.25 H (test code = 358) GLUCOSE RANDOM 118 mg/dL 70-105 H (BEAKER) (test code = 652) CALCIUM (BEAKER) 8.8 mg/dL 8.4-10.2 (test code = 697) EGFR (BEAKER) (test 12 mL/min/1.73 ESTIMA JENELLE GFR IS code = 1092) sq m NOT ACCURATE CREATININE CLEARANCE IN PREDICTING GLOMERULAR FILTRATION RATE . ESTIMATED GFR I S NOT APPLICABLE FOR DIALYSIS PATIEN TS. BLOOD GAS, [id number] 07:56:00 Test Item Value Reference Range Interpretation Comments PH ARTERIAL (BEAKER) (test code = 7.40 7.35-7.45 383) PCO2 ARTERIAL (BEAKER) (test code 41 mmHg 35-45 = 384) PO2 ARTERIAL (BEAKER) (test code 120 mmHg 80-90 H = 385) O2 SATURATION ARTERIAL (BEAKER) 98.3 % 96.0-97.0 H (test code = 386) HCO3 ARTERIAL (BEAKER) (test code 25 mmol/L 21-29 = 388) BASE EXCESS ARTERIAL (BEAKER) -0.1 mmol/L -2.0-3.0 (test code = 387) PATIENT TEMPERATURE (BEAKER) 37.5 C (test code = 1818) FIO2 (BEAKER) (test code = 1819) 30.0 % VANCOMYCIN LEVEL, [id number] 05:44:00 Test Item Value Reference Range Interpretation Comments VANCOMYCIN RANDOM (BEAKER) (test 16.7 ug/mL code = 523) Reference Range: No NormalsLACTIC ACID, VENOUS, WHOLE [id number] 05:22:00 Test Item Value Reference Range Interpretation Comments LACTATE BLOOD VENOUS (2) (BEAKER) 0.7 mmol/L 0.5-2.2 (test code = 2872) Effective 12/15/2015: Units/Reference Range ChangeNew: 0.5-2.2 mmol/L Previous: 5-20 mg/dLBLOOD GAS, [id number] 05:03:00 Test Item Value Reference Range Interpretation Comments PH ARTERIAL (BEAKER) (test code = 7.27 7.35-7.45 L 383) PCO2 ARTERIAL (BEAKER) (test code 57 mmHg 35-45 H = 384) PO2 ARTERIAL (BEAKER) (test code 71 mmHg 80-90 L = 385) O2 SATURATION ARTERIAL (BEAKER) 91.0 % 96.0-97.0 L (test code = 386) HCO3 ARTERIAL (BEAKER) (test code 25 mmol/L 21-29 = 388) BASE EXCESS ARTERIAL (BEAKER) -1.9 mmol/L -2.0-3.0 (test code = 387) PATIENT TEMPERATURE (BEAKER) 37.5 C (test code = 1818) FIO2 (BEAKER) (test code = 1819) 30.0 % TROPONIN [id number] 05:00:00 Test Item Value Reference Range Interpretation Comments TROPONIN I (BEAKER) (test code = 0.01 ng/mL 0.00-0.03 397) Troponin I (TnI) levels must be interpreted [...] failure, acidosis, acute neurological disease, and persistent tachyarrhythmia.[id number] 04:54:00 Test Item Value Reference Range Interpretation Comments LIPASE (BEAKER) (test code = 749) 47 U/L 8-78 HEPATIC FUNCTION [id number] 04:54:00 Test Item Value Reference Range Interpretation Comments TOTAL PROTEIN (BEAKER) (test code = 5.5 gm/dL 6.0-8.3 L 770) ALBUMIN (BEAKER) (test code = 1145) 2.7 g/dL 3.5-5.0 L BILIRUBIN TOTAL (BEAKER) (test code 0.8 mg/dL 0.2-1.2 = 377) BILIRUBIN DIRECT (BEAKER) (test 0.6 mg/dL 0.1-0.5 H code = 706) ALKALINE PHOSPHATASE (BEAKER) (test 133 U/L 40-150 code = 346) AST (SGOT) (BEAKER) (test code = 38 U/L 5-34 H 353) ALT (SGPT) (BEAKER) (test code = 55 U/L 6-55 347) RAD, CHEST, 1 VIEW, NON [id number] 04:49:00Reason for exam:- >IntubationShould this be performed at the bedside?->YesFINAL REPORT [...] MDReport Verified Date/Time: 05/05/2018 04:49:25 Reading Location: [address] Reading Room [id number] 04:47:00 Test Item Value Reference Range Interpretation Comments PROCALCITONIN (BEAKER) (test code 2.43 ng/mL <0.05 H = 3036) SEPSIS RISK (ng/mL)Low: 0.05-0.50Intermediate: 0.51-2.00High: >=2.01RAD, ABDOMEN/KUB, 1 VIEW [id number] 04:47:00Reason for exam:->OG placement Should this be performed at the bedside?->YesFINAL REPORT CLINICAL HISTORY: NG tube placement COMPARISON: None. FINDINGS:A single supine view of a portion of the abdomen is submitted. The tip of an enteric tube overlies the expected position of the distal stomach. The visualized abdominal bowel gas pattern is unobstructed. There is no acute bony abnormality. Signed: Murtaza Clemens MDReport Verified Date/Time: 05/05/2018 04:47:09 Reading Location: [address] Reading Room BLOOD GAS, [id number] 03:34:00 Test Item Value Reference Range Interpretation Comments PH ARTERIAL (BEAKER) (test code = 7.14 7.35-7.45 LL 383) PCO2 ARTERIAL (BEAKER) (test code 76 mmHg 35-45 HH = 384) PO2 ARTERIAL (BEAKER) (test code 96 mmHg 80-90 H = 385) O2 SATURATION ARTERIAL (BEAKER) 94.6 % 96.0-97.0 L (test code = 386) HCO3 ARTERIAL (BEAKER) (test code 25 mmol/L 21-29 = 388) BASE EXCESS ARTERIAL (BEAKER) -4.3 mmol/L -2.0-3.0 L (test code = 387) PATIENT TEMPERATURE (BEAKER) 37.0 C (test code = 1818) FIO2 (BEAKER) (test code = 1819) 40.0 % CBC W/PLT COUNT & AUTO [id number] 03:25:00 Test Item Value Reference Range Interpretation Comments WHITE BLOOD CELL COUNT (BEAKER) 20.0 K/ L 3.5-10.5 H (test code = 775) RED BLOOD CELL COUNT (BEAKER) 2.19 M/ L 3.93-5.22 L (test code = 761) HEMOGLOBIN (BEAKER) (test code = 7.4 GM/DL 11.2-15.7 L 410) HEMATOCRIT (BEAKER) (test code = 24.4 % 34.1-44.9 L 411) MEAN CORPUSCULAR VOLUME (BEAKER) 111.4 fL 79.4-94.8 H (test code = 753) MEAN CORPUSCULAR HEMOGLOBIN 33.8 pg 25.6-32.2 H (BEAKER) (test code = 751) MEAN CORPUSCULAR HEMOGLOBIN CONC 30.3 GM/DL 32.2-35.5 L (BEAKER) (test code = 752) RED CELL DISTRIBUTION WIDTH 15.8 % 11.7-14.4 H (BEAKER) (test code = 412) PLATELET COUNT (BEAKER) (test 357 K/CU MM 150-450 code = 756) MEAN PLATELET VOLUME (BEAKER) 9.5 fL 9.4-12.3 (test code = 754) NUCLEATED RED BLOOD CELLS 0 /100 WBC 0-0 (BEAKER) (test code = 413) NEUTROPHILS RELATIVE PERCENT 80 % (BEAKER) (test code = 429) LYMPHOCYTES RELATIVE PERCENT 9 % (BEAKER) (test code = 430) MONOCYTES RELATIVE PERCENT 7 % (BEAKER) (test code = 431) EOSINOPHILS RELATIVE PERCENT 0 % (BEAKER) (test code = 432) BASOPHILS RELATIVE PERCENT 0 % (BEAKER) (test code = 437) NEUTROPHILS ABSOLUTE COUNT 16.06 K/ L 1.56-6.13 H (BEAKER) (test code = 670) LYMPHOCYTES ABSOLUTE COUNT 1.76 K/ L 1.18-3.74 (BEAKER) (test code = 414) MONOCYTES ABSOLUTE COUNT (BEAKER) 1.30 K/ L 0.24-0.36 H (test code = 415) EOSINOPHILS ABSOLUTE COUNT 0.04 K/ L 0.04-0.36 (BEAKER) (test code = 416) BASOPHILS ABSOLUTE COUNT (BEAKER) 0.05 K/ L 0.01-0.08 (test code = 417) IMMATURE GRANULOCYTES-RELATIVE 4 % 0-1 H PERCENT (BEAKER) (test code = 2801) LACTIC ACID, VENOUS, WHOLE [id number] 02:41:00 Test Item Value Reference Range Interpretation Comments LACTATE BLOOD VENOUS (2) (BEAKER) 0.5 mmol/L 0.5-2.2 (test code = 2872) Effective 12/15/2015: Units/Reference Range ChangeNew: 0.5-2.2 mmol/L Previous: 5-20 mg/dLBLOOD GAS, [id number] 02:10:00 Test Item Value Reference Range Interpretation Comments PH ARTERIAL (BEAKER) (test code = 7.17 7.35-7.45 LL 383) PCO2 ARTERIAL (BEAKER) (test code 68 mmHg 35-45 H = 384) PO2 ARTERIAL (BEAKER) (test code 83 mmHg 80-90 = 385) O2 SATURATION ARTERIAL (BEAKER) 93.2 % 96.0-97.0 L (test code = 386) HCO3 ARTERIAL (BEAKER) (test code 24 mmol/L 21-29 = 388) BASE EXCESS ARTERIAL (BEAKER) -4.3 mmol/L -2.0-3.0 L (test code = 387) PATIENT TEMPERATURE (BEAKER) 36.5 C (test code = 1818) FIO2 (BEAKER) (test code = 1819) 28.0 % BASIC METABOLIC [id number] 01:46:00 Test Item Value Reference Range Interpretation Comments SODIUM (BEAKER) 127 meq/L 136-145 L (test code = 381) POTASSIUM (BEAKER) 4.8 meq/L 3.5-5.1 (test code = 379) CHLORIDE (BEAKER) 95 meq/L 98-107 L (test code = 382) CO2 (BEAKER) (test 23 meq/L 22-29 code = 355) BLOOD UREA NITROGEN 44 mg/dL 7-21 H (BEAKER) (test code = 354) CREATININE (BEAKER) 4.41 mg/dL 0.57-1.25 H (test code = 358) GLUCOSE RANDOM 114 mg/dL 70-105 H (BEAKER) (test code = 652) CALCIUM (BEAKER) 8.2 mg/dL 8.4-10.2 L (test code = 697) EGFR (BEAKER) (test 10 mL/min/1.73 ESTIMA JENELLE GFR IS code = 1092) sq m NOT ACCURATE CREATININE CLEARANCE IN PREDICTING GLOMERULAR FILTRATION RATE . ESTIMATED GFR I S NOT APPLICABLE FOR DIALYSIS PATIEN TS. B-TYPE NATRIURETIC FACTOR (BNP)2018-05-05 01:36:00 Test Item Value Reference Range Interpretation Comments B-TYPE NATRIURETIC PEPTIDE (BEAKER) 124 pg/mL 0-100 H (test code = 700) [id number] 01:31:00 Test Item Value Reference Range Interpretation Comments MAGNESIUM (BEAKER) (test code = 1.8 mg/dL 1.6-2.6 627) LACTIC ACID, VENOUS, WHOLE [id number] 01:29:00 Test Item Value Reference Range Interpretation Comments LACTATE BLOOD VENOUS (2) (BEAKER) 0.7 mmol/L 0.5-2.2 (test code = 2872) Effective 12/15/2015: Units/Reference Range ChangeNew: 0.5-2.2 mmol/L Previous: 5-20 mg/dLCBC W/PLT COUNT & AUTO [id number] 01:14:00 Test Item Value Reference Range Interpretation Comments WHITE BLOOD CELL COUNT (BEAKER) 15.2 K/ L 3.5-10.5 H (test code = 775) RED BLOOD CELL COUNT (BEAKER) 2.11 M/ L 3.93-5.22 L (test code = 761) HEMOGLOBIN (BEAKER) (test code = 7.1 GM/DL 11.2-15.7 L 410) HEMATOCRIT (BEAKER) (test code = 23.2 % 34.1-44.9 L 411) MEAN CORPUSCULAR VOLUME (BEAKER) 110.0 fL 79.4-94.8 H (test code = 753) MEAN CORPUSCULAR HEMOGLOBIN 33.6 pg 25.6-32.2 H (BEAKER) (test code = 751) MEAN CORPUSCULAR HEMOGLOBIN CONC 30.6 GM/DL 32.2-35.5 L (BEAKER) (test code = 752) RED CELL DISTRIBUTION WIDTH 15.9 % 11.7-14.4 H (BEAKER) (test code = 412) PLATELET COUNT (BEAKER) (test 308 K/CU MM 150-450 code = 756) MEAN PLATELET VOLUME (BEAKER) 9.5 fL 9.4-12.3 (test code = 754) NUCLEATED RED BLOOD CELLS 0 /100 WBC 0-0 (BEAKER) (test code = 413) NEUTROPHILS RELATIVE PERCENT 81 % (BEAKER) (test code = 429) LYMPHOCYTES RELATIVE PERCENT 8 % (BEAKER) (test code = 430) MONOCYTES RELATIVE PERCENT 7 % (BEAKER) (test code = 431) EOSINOPHILS RELATIVE PERCENT 0 % (BEAKER) (test code = 432) BASOPHILS RELATIVE PERCENT 0 % (BEAKER) (test code = 437) NEUTROPHILS ABSOLUTE COUNT 12.30 K/ L 1.56-6.13 H (BEAKER) (test code = 670) LYMPHOCYTES ABSOLUTE COUNT 1.22 K/ L 1.18-3.74 (BEAKER) (test code = 414) MONOCYTES ABSOLUTE COUNT (BEAKER) 1.05 K/ L 0.24-0.36 H (test code = 415) EOSINOPHILS ABSOLUTE COUNT 0.02 K/ L 0.04-0.36 L (BEAKER) (test code = 416) BASOPHILS ABSOLUTE COUNT (BEAKER) 0.04 K/ L 0.01-0.08 (test code = 417) IMMATURE GRANULOCYTES-RELATIVE 4 % 0-1 H PERCENT (BEAKER) (test code = 2801) POCT-GLUCOSE [id number] 01:01:00 Test Item Value Reference Range Interpretation Comments POC-GLUCOSE METER 138 mg/dL 70-110 H TESTED AT [facility] 6720 (BEAKER) (test code = [facility] 153) [address] RAD, CHEST, 1 VIEW, NON [id number] 00:17:00Reason for exam:->concern for respiratory distressShould this be performed at the bedside?->YesFINAL REPORT History: Respiratory distress. Comparison: 05/02/2018 Findings: A single view of the chest [...] MDReport Verified Date/Time: 05/05/2018 00:17:28 Reading Location: [address] Reading Room POCT-LACTIC ACID, [id number] 23:56:00 Test Item Value Reference Range Interpretation Comments POC-LACTIC ACID, 0.9 mmol/L 0.4-1.3 TESTED AT [place] [id number] ARTERIAL (BEAKER) [facility] [place] (test code = 2804) [address] POCT-BLOOD GASES, [id number] 23:56:00 Test Item Value Reference Range Interpretation Comments TEMP, CELSIUS-POC 36.1 (BEAKER) (test code = 1834) FIO2-POC (BEAKER) 32 TESTED AT [place] [address] (test code = 1835) [facility] [address] PH, ARTERIAL-POC 7.192 7.350-7.450 LL (BEAKER) (test code = 1836) PCO2, ARTERIAL-POC 63.6 mm Hg 35.0-45.0 H (BEAKER) (test code = 1837) PO2, ARTERIAL-POC 71.0 mm Hg 80.0-90.0 L (BEAKER) (test code = 1838) SO2, ARTERIAL-POC 90.0 % 96.0-97.0 L (BEAKER) (test code = 1839) HCO3, ARTERIAL-POC 24.7 meq/L 21.0-29.0 (BEAKER) (test code = 1840) BASE EXCESS, -4.0 meq/L -2.0-3.0 L ARTERIAL-POC (BEAKER) (test code = 1841) [id number] 23:56:00 Test Item Value Reference Range Interpretation Comments POC-SODIUM (BEAKER) 127 meq/L 135-148 L TESTED [place] [address] (test code = 1542) [facility] [address] [id number] 23:56:00 Test Item Value Reference Range Interpretation Comments POC-POTASSIUM 4.8 meq/L 3.6-5.5 TESTED AT [place] [address] ([facility]) (test code [facility] [address] = 1540) [id number] 23:56:00 Test Item Value Reference Range Interpretation Comments POC-GLUCOSE ([facility]) 116 mg/dL 70-110 H TESTED AT [place] [address] (test code = 1855) [place] [facility] [address] POCT-CALCIUM [id number] 23:56:00 Test Item Value Reference Range Interpretation Comments POC-CALCIUM IONIZED 1.20 mmol/L 1.12-1.27 TESTED A T [place] [address] ([facility]) (test code = [facility] 1536) [address] [id number] 23:56:00 Test Item Value Reference Range Interpretation Comments POC-HEMATOCRIT 25 % 36-45 L TESTED AT [place] [address] ([facility]) (test code = [facility] [address] 1857) [id number] 23:56:00 Test Item Value Reference Range Interpretation Comments POC-HEMOGLOBIN 8.5 g/dL 12.0-15.0 L TESTED AT [place] [address] ([facility]) (test code = [facility] 1856) [id number] AT [place] [address] [place] [facility] [address] POCT-GLUCOSE [id number] 21:48:00 Test Item Value Reference Range Interpretation Comments POC-GLUCOSE METER 136 mg/dL 70-110 H TESTED AT [place] [address] ([facility]) (test code = [facility] 1538) [address] POCT-GLUCOSE [id number] 19:03:00 Test Item Value Reference Range Interpretation Comments POC-GLUCOSE METER 131 mg/dL 70-110 H TESTED AT [place] [address] ([facility]) (test code = [facility] 1538) [address] POCT-BLOOD GASES, [id number] 16:54:00 Test Item Value Reference Range Interpretation Comments TEMP, CELSIUS-POC 37.0 ([facility]) (test code = 1834) FIO2-POC ([facility]) TESTED AT [place] [address] (test code = 1835) [facility] [address] PH, VENOUS-POC 7.224 7.320-7.420 L (BEAKER) (test code = 1842) PCO2, VENOUS-POC 63.8 mm Hg 41.0-51.0 H (BEAKER) (test code = 1843) PO2, VENOUS-POC 31.0 mm Hg 25.0-40.0 (BEAKER) (test code = 1844) SO2, VENOUS-POC 46.0 % 40.0-70.0 (BEAKER) (test code = 1845) HCO3, VENOUS-POC 26.3 meq/L 21.0-29.0 (BEAKER) (test code = 1846) BASE EXCESS, -1.0 meq/L -2.0-3.0 VENOUS-POC (BEAKER) (test code = 1847) [id number] 16:54:00 Test Item Value Reference Range Interpretation Comments POC-SODIUM (BEAKER) 129 meq/L 135-148 L TESTED [place] [address] (test code = 1542) [facility] [address] [id number] 16:54:00 Test Item Value Reference Range Interpretation Comments POC-POTASSIUM 4.7 meq/L 3.6-5.5 TESTED AT [place] [address] ([facility]) (test code [facility] [place] [address] = 1540) [id number] 16:54:00 Test Item Value Reference Range Interpretation Comments POC-GLUCOSE (BEAKER) 116 mg/dL 70-110 H TESTED AT [place] [address] (test code = 1855) [facility] [address] POCT-CALCIUM [id number] 16:54:00 Test Item Value Reference Range Interpretation Comments POC-CALCIUM IONIZED 1.19 mmol/L 1.12-1.27 TESTED A [place] [address] ([facility]) (test code = [facility] 1538) [address] [id number] 16:54:00 Test Item Value Reference Range Interpretation Comments POC-HEMATOCRIT 25 % 36-45 L TESTED AT [place] [address] ([facility]) (test code = [facility] [address] 1292) [id number] 16:54:00 Test Item Value Reference Range Interpretation Comments POC-HEMOGLOBIN 8.5 g/dL 12.0-15.0 L TESTED AT [facility] 6720 (BEAKER) (test code = [place] 1856) [address]WWHTQW AT [place] [address] [place] [address] POCT-GLUCOSE [id number] 13:26:00 Test Item Value Reference Range Interpretation Comments POC-GLUCOSE METER 124 mg/dL 70-110 H TESTED AT [place] [address] (BEAKER) (test code = [place] 1538) [address] POCT-LACTIC ACID, [id number] 12:57:00 Test Item Value Reference Range Interpretation Comments POC-LACTIC ACID, 1.1 mmol/L 0.9-1.7 TESTED AT [place] [address] VENOUS (BEAKER) (test [place] code = 2805) [address] COMPREHENSIVE METABOLIC [id number] 09:56:00 Test Item Value Reference Range Interpretation Comments TOTAL PROTEIN 6.2 gm/dL 6.0-8.3 (BEAKER) (test code = 770) ALBUMIN (BEAKER) 3.0 g/dL 3.5-5.0 L (test code = 1145) ALKALINE PHOSPHATASE 160 U/L 40-150 H (BEAKER) (test code = 346) BILIRUBIN TOTAL 1.1 mg/dL 0.2-1.2 (BEAKER) (test code = 377) SODIUM (BEAKER) (test 131 meq/L 136-145 L code = 381) POTASSIUM (BEAKER) 4.6 meq/L 3.5-5.1 (test code = 379) CHLORIDE (BEAKER) 98 meq/L 98-107 (test code = 382) CO2 (BEAKER) (test 23 meq/L 22-29 code = 355) BLOOD UREA NITROGEN 39 mg/dL 7-21 H (BEAKER) (test code = 354) CREATININE (BEAKER) 3.86 mg/dL 0.57-1.25 H (test code = 358) GLUCOSE RANDOM 104 mg/dL 70-105 (BEAKER) (test code = 652) CALCIUM (BEAKER) 9.1 mg/dL 8.4-10.2 (test code = 697) AST (SGOT) (BEAKER) 57 U/L 5-34 H (test code = 353) ALT (SGPT) (BEAKER) 75 U/L 6-55 H (test code = 347) EGFR (BEAKER) (test 12 mL/min/1.73 ESTIMA JENELLE GFR IS code = 1092) sq m NOT ACCURATE CREATININE CLEARANCE IN PREDICTING GLOMERULAR FILTRATION RATE . ESTIMATED GFR I S NOT APPLICABLE FOR DIALYSIS PATIEN TS. [id number] 09:48:00 Test Item Value Reference Range Interpretation Comments PHOSPHORUS (BEAKER) (test code = 5.0 mg/dL 2.3-4.7 H 604) [id number] 09:48:00 Test Item Value Reference Range Interpretation Comments MAGNESIUM (BEAKER) (test code = 1.9 mg/dL 1.6-2.6 627) POCT-GLUCOSE [id number] 09:23:00 Test Item Value Reference Range Interpretation Comments POC-GLUCOSE METER 148 mg/dL 70-110 H TESTED AT [facility] 6720 (BEAKER) (test code = [place] 1538) [address] CBC (HEMOGRAM ONLY)2018-05-04 07:04:00 Test Item Value Reference Range Interpretation Comments WHITE BLOOD CELL COUNT (BEAKER) 12.7 K/ L 3.5-10.5 H (test code = 775) RED BLOOD CELL COUNT (BEAKER) 2.50 M/ L 3.93-5.22 L (test code = 761) HEMOGLOBIN (BEAKER) (test code = 8.3 GM/DL 11.2-15.7 L 410) HEMATOCRIT (BEAKER) (test code = 27.6 % 34.1-44.9 L 411) MEAN CORPUSCULAR VOLUME (BEAKER) 110.4 fL 79.4-94.8 H (test code = 753) MEAN CORPUSCULAR HEMOGLOBIN 33.2 pg 25.6-32.2 H (BEAKER) (test code = 751) MEAN CORPUSCULAR HEMOGLOBIN CONC 30.1 GM/DL 32.2-35.5 L (BEAKER) (test code = 752) RED CELL DISTRIBUTION WIDTH 16.8 % 11.7-14.4 H (BEAKER) (test code = 412) PLATELET COUNT (BEAKER) (test 314 K/CU MM 150-450 code = 756) MEAN PLATELET VOLUME (BEAKER) 10.3 fL 9.4-12.3 (test code = 754) NUCLEATED RED BLOOD CELLS 0 /100 WBC 0-0 ([facility]) (test code = 413) PROTHROMBIN [id number] 06:20:00 Test Item Value Reference Range Interpretation Comments PROTIME ([facility]) (test code = 14.0 seconds 11.7-14.7 759) INR ([facility]) (test code = 370) 1.1 <=5.9 RECOMMENDED COUMADIN/WARFARIN INR THERAPY RANGESSTANDARD DOSE: 2.0 - 3.0 Includes: PROPHYLAXIS forvenous thrombosis, systemic embolization; TREATMENT for venous thrombosis and/or pulmonary embolus.HIGH RISK: Target INR is 2.5-3.5 for patients with mechanical heart valves.[id number] 06:20:00 Test Item Value Reference Range Interpretation Comments PARTIAL THROMBOPLASTIN TIME 38.0 seconds 22.5-36.0 H ([facility]) (test code = 760) POCT-GLUCOSE [id number] 21:01:00 Test Item Value Reference Range Interpretation Comments POC-GLUCOSE METER 113 mg/dL 70-110 H TESTED AT [place] [address] ([facility]) (test code = [place] [facility] 1538) [id number] POCT-GLUCOSE [id number] 17:33:00 Test Item Value Reference Range Interpretation Comments POC-GLUCOSE METER 123 mg/dL 70-110 H TESTED AT [place] [address] ([facility]) (test code = [place] [facility] 1538) [id number] POCT-GLUCOSE [id number] 12:19:00 Test Item Value Reference Range Interpretation Comments POC-GLUCOSE METER 127 mg/dL 70-110 H TESTED AT [place] [address] ([facility]) (test code = [place] [facility] 1538) [id number] POCT-GLUCOSE [id number] 08:08:00 Test Item Value Reference Range Interpretation Comments POC-GLUCOSE METER 129 mg/dL 70-110 H TESTED AT [place] [address] ([facility]) (test code = [place] [facility] 1538) [id number] BLOOD GAS, [id number] 07:23:00 Test Item Value Reference Range Interpretation Comments PH VENOUS ([facility]) (test code = 7.36 7.32-7.42 701) PCO2 VENOUS ([facility]) (test code = 45 mmHg 41-51 755) PO2 VENOUS ([facility]) (test code = 45 mmHg 25-40 H 702) O2 SATURATION VENOUS (BEAKER) 79.4 % 40.0-70.0 H (test code = 703) HCO3 VENOUS (BEAKER) (test code = 25 mmol/L 21-29 705) BASE EXCESS VENOUS (BEAKER) (test -0.5 mmol/L -2.0-3.0 code = 704) PATIENT TEMPERATURE (BEAKER) 37.0 C (test code = 1818) FIO2 (BEAKER) (test code = 1819) 20.0 % COMPREHENSIVE METABOLIC [id number] 07:11:00 Test Item Value Reference Range Interpretation Comments TOTAL PROTEIN 5.4 gm/dL 6.0-8.3 L (BEAKER) (test code = 770) ALBUMIN (BEAKER) 2.7 g/dL 3.5-5.0 L (test code = 1145) ALKALINE PHOSPHATASE 147 U/L 40-150 (BEAKER) (test code = 346) BILIRUBIN TOTAL 1.0 mg/dL 0.2-1.2 (BEAKER) (test code = 377) SODIUM (BEAKER) (test 134 meq/L 136-145 L code = 381) POTASSIUM (BEAKER) 4.2 meq/L 3.5-5.1 (test code = 379) CHLORIDE (BEAKER) 100 meq/L 98-107 (test code = 382) CO2 (BEAKER) (test 26 meq/L 22-29 code = 355) BLOOD UREA NITROGEN 31 mg/dL 7-21 H (BEAKER) (test code = 354) CREATININE (BEAKER) 3.33 mg/dL 0.57-1.25 H (test code = 358) GLUCOSE RANDOM 105 mg/dL 70-105 (BEAKER) (test code = 652) CALCIUM (BEAKER) 8.6 mg/dL 8.4-10.2 (test code = 697) AST (SGOT) (BEAKER) 52 U/L 5-34 H (test code = 353) ALT (SGPT) (BEAKER) 88 U/L 6-55 H (test code = 347) EGFR (BEAKER) (test 14 mL/min/1.73 ESTIMA JENELLE GFR IS code = 1092) sq m NOT ACCURATE CREATININE CLEARANCE IN PREDICTING GLOMERULAR FILTRATION RATE . ESTIMATED GFR I S NOT APPLICABLE FOR DIALYSIS PATIEN TS. [id number] 07:09:00 Test Item Value Reference Range Interpretation Comments PHOSPHORUS (BEAKER) (test code = 3.6 mg/dL 2.3-4.7 604) [id number] 07:09:00 Test Item Value Reference Range Interpretation Comments MAGNESIUM (BEAKER) (test code = 1.8 mg/dL 1.6-2.6 627) [id number] 06:34:00 Test Item Value Reference Range Interpretation Comments PARTIAL THROMBOPLASTIN TIME 37.1 seconds 22.5-36.0 H (BEAKER) (test code = 760) CBC (HEMOGRAM ONLY)[id number] 06:34:00 Test Item Value Reference Range Interpretation Comments WHITE BLOOD CELL COUNT (BEAKER) 11.8 K/ L 3.5-10.5 H (test code = 775) RED BLOOD CELL COUNT (BEAKER) 2.28 M/ L 3.93-5.22 L (test code = 761) HEMOGLOBIN (BEAKER) (test code = 7.7 GM/DL 11.2-15.7 L 410) HEMATOCRIT (BEAKER) (test code = 24.1 % 34.1-44.9 L 411) MEAN CORPUSCULAR VOLUME (BEAKER) 105.7 fL 79.4-94.8 H (test code = 753) MEAN CORPUSCULAR HEMOGLOBIN 33.8 pg 25.6-32.2 H (BEAKER) (test code = 751) MEAN CORPUSCULAR HEMOGLOBIN CONC 32.0 GM/DL 32.2-35.5 L (BEAKER) (test code = 752) RED CELL DISTRIBUTION WIDTH 17.7 % 11.7-14.4 H (BEAKER) (test code = 412) PLATELET COUNT (BEAKER) (test 262 K/CU MM 150-450 code = 756) MEAN PLATELET VOLUME (BEAKER) 10.2 fL 9.4-12.3 (test code = 754) NUCLEATED RED BLOOD CELLS 0 /100 WBC 0-0 (BEAKER) (test code = 413) PROTHROMBIN [id number] 06:33:00 Test Item Value Reference Range Interpretation Comments PROTIME (BEAKER) (test code = 14.5 seconds 11.7-14.7 759) INR (BEAKER) (test code = 370) 1.1 <=5.9 RECOMMENDED COUMADIN/WARFARIN INR THERAPY RANGESSTANDARD DOSE: 2.0 - 3.0 Includes: PROPHYLAXIS forvenous thrombosis, systemic embolization; TREATMENT for venous thrombosis and/or pulmonary embolus.HIGH RISK: Target INR is 2.5-3.5 for patients with mechanical heart valves.LACTIC ACID, VENOUS, WHOLE BLOOD 2018-05-03 06:32:00 Test Item Value Reference Range Interpretation Comments LACTATE BLOOD VENOUS (2) (BEAKER) 1.0 mmol/L 0.5-2.2 (test code = 2872) Effective 12/15/2015: Units/Reference Range ChangeNew: 0.5-2.2 mmol/L Previous: 5-20 mg/dLPOCT-GLUCOSE [id number] 21:06:00 Test Item Value Reference Range Interpretation Comments POC-GLUCOSE METER 168 mg/dL 70-110 H TESTED AT [facility] 67 ([facility]) (test code = [place] [facility] 1538) [address] POCT-GLUCOSE [id number] 19:02:00 Test Item Value Reference Range Interpretation Comments POC-GLUCOSE METER 122 mg/dL 70-110 H TESTED AT [place] [address] ([facility]) (test code = [facility] 1538) [address] [id number] 18:09:00 Test Item Value Reference Range Interpretation Comments PHOSPHORUS (BEAKER) (test code = 2.7 mg/dL 2.3-4.7 604) [id number] 18:09:00 Test Item Value Reference Range Interpretation Comments MAGNESIUM (BEAKER) (test code = 1.9 mg/dL 1.6-2.6 627) [id number] 18:09:00 Test Item Value Reference Range Interpretation Comments CALCIUM (BEAKER) (test code = 697) 8.7 mg/dL 8.4-10.2 POCT-GLUCOSE [id number] 13:13:00 Test Item Value Reference Range Interpretation Comments POC-GLUCOSE METER 162 mg/dL 70-110 H TESTED AT [place] [address] ([facility]) (test code = [facility] [place] [facility] 1538) [address] RAD, CHEST, 1 VIEW, NON [id number] 12:12:00Reason for exam:->Pulmobnary edema?Should this be performed [...] Crowe Verified Date/Time: 05/02/2018 12:12:11 Reading Location: [facility] Radiology Reading Room POCT-GLUCOSE [id number] 08:27:00 Test Item Value Reference Range Interpretation Comments POC-GLUCOSE METER 128 mg/dL 70-110 H TESTED AT [facility] 6720 ([facility]) (test code = [place] 1538) [address] COMPREHENSIVE METABOLIC [id number] 07:40:00 Test Item Value Reference Range Interpretation Comments TOTAL PROTEIN 5.4 gm/dL 6.0-8.3 L (BEAKER) (test code = 770) ALBUMIN (BEAKER) 2.7 g/dL 3.5-5.0 L (test code = 1145) ALKALINE PHOSPHATASE 147 U/L 40-150 (BEAKER) (test code = 346) BILIRUBIN TOTAL 1.3 mg/dL 0.2-1.2 H (BEAKER) (test code = 377) SODIUM (BEAKER) (test 134 meq/L 136-145 L code = 381) POTASSIUM (BEAKER) 3.3 meq/L 3.5-5.1 L (test code = 379) CHLORIDE (BEAKER) 102 meq/L 98-107 (test code = 382) CO2 (BEAKER) (test 24 meq/L 22-29 code = 355) BLOOD UREA NITROGEN 25 mg/dL 7-21 H (BEAKER) (test code = 354) CREATININE (BEAKER) 2.83 mg/dL 0.57-1.25 H (test code = 358) GLUCOSE RANDOM 123 mg/dL 70-105 H (BEAKER) (test code = 652) CALCIUM (BEAKER) 8.4 mg/dL 8.4-10.2 (test code = 697) AST (SGOT) (BEAKER) 80 U/L 5-34 H (test code = 353) ALT (SGPT) (BEAKER) 112 U/L 6-55 H (test code = 347) EGFR (BEAKER) (test 17 mL/min/1.73 ESTIMA JENELLE GFR IS code = 1092) sq m NOT ACCURATE CREATININE CLEARANCE IN PREDICTING GLOMERULAR FILTRATION RATE . ESTIMATED GFR I S NOT APPLICABLE FOR DIALYSIS PATIEN TS. [id number] 07:34:00 Test Item Value Reference Range Interpretation Comments PHOSPHORUS (BEAKER) (test code = 2.7 mg/dL 2.3-4.7 604) [id number] 07:34:00 Test Item Value Reference Range Interpretation Comments MAGNESIUM (BEAKER) (test code = 1.9 mg/dL 1.6-2.6 627) LACTIC ACID, VENOUS, WHOLE [id number] 06:59:00 Test Item Value Reference Range Interpretation Comments LACTATE BLOOD VENOUS (2) (BEAKER) 0.7 mmol/L 0.5-2.2 (test code = 2872) Effective 12/15/2015: Units/Reference Range ChangeNew: 0.5-2.2 mmol/L Previous: 5-20 mg/dLCBC (HEMOGRAM ONLY)2018-05-02 06:44:00 Test Item Value Reference Range Interpretation Comments WHITE BLOOD CELL COUNT (BEAKER) 9.1 K/ L 3.5-10.5 (test code = 775) RED BLOOD CELL COUNT (BEAKER) 2.39 M/ L 3.93-5.22 L (test code = 761) HEMOGLOBIN (BEAKER) (test code = 8.0 GM/DL 11.2-15.7 L 410) HEMATOCRIT (BEAKER) (test code = 25.3 % 34.1-44.9 L 411) MEAN CORPUSCULAR VOLUME (BEAKER) 105.9 fL 79.4-94.8 H (test code = 753) MEAN CORPUSCULAR HEMOGLOBIN 33.5 pg 25.6-32.2 H (BEAKER) (test code = 751) MEAN CORPUSCULAR HEMOGLOBIN CONC 31.6 GM/DL 32.2-35.5 L (BEAKER) (test code = 752) RED CELL DISTRIBUTION WIDTH 18.1 % 11.7-14.4 H (BEAKER) (test code = 412) PLATELET COUNT (BEAKER) (test 133 K/CU MM 150-450 L code = 756) MEAN PLATELET VOLUME (BEAKER) 11.2 fL 9.4-12.3 (test code = 754) NUCLEATED RED BLOOD CELLS 0 /100 WBC 0-0 (BEAKER) (test code = 413) [id number] 06:34:00 Test Item Value Reference Range Interpretation Comments PARTIAL THROMBOPLASTIN TIME 38.8 seconds 22.5-36.0 H (BEAKER) (test code = 760) PROTHROMBIN [id number] 06:33:00 Test Item Value Reference Range Interpretation Comments PROTIME (BEAKER) (test code = 14.8 seconds 11.7-14.7 H 759) INR (BEAKER) (test code = 370) 1.2 <=5.9 RECOMMENDED COUMADIN/WARFARIN INR THERAPY RANGESSTANDARD DOSE: 2.0 - 3.0 Includes: PROPHYLAXIS forvenous thrombosis, systemic embolization; TREATMENT for venous thrombosis and/or pulmonary embolus.HIGH RISK: Target INR is 2.5-3.5 for patients with mechanical heart valves.BLOOD GAS, [id number] 06:29:00 Test Item Value Reference Range Interpretation Comments PH VENOUS (BEAKER) (test code = 7.51 7.32-7.42 H 701) PCO2 VENOUS (BEAKER) (test code = 31 mmHg 41-51 L 755) PO2 VENOUS (BEAKER) (test code = 173 mmHg 25-40 H 702) O2 SATURATION VENOUS (BEAKER) 99.3 % 40.0-70.0 H (test code = 703) HCO3 VENOUS (BEAKER) (test code = 25 mmol/L 21-29 705) BASE EXCESS VENOUS (BEAKER) (test 1.8 mmol/L -2.0-3.0 code = 704) PATIENT TEMPERATURE (BEAKER) (test 37.0 C code = 1818) FIO2 (BEAKER) (test code = 1819) 20 % BLOOD [id number] 06:00:00 Test Item Value Reference Range Interpretation Comments CULTURE (BEAKER) (test No growth in 5 days code = 1095) BLOOD [id number] 06:00:00 Test Item Value Reference Range Interpretation Comments CULTURE (BEAKER) (test No growth in 5 days code = 1095) POCT-GLUCOSE [id number] 20:46:00 Test Item Value Reference Range Interpretation Comments POC-GLUCOSE METER 157 mg/dL 70-110 H TESTED AT [place] [address] ([facility]) (test code = [facility] 1538) [address] HEMOGLOBIN AND [id number] 14:24:00 Test Item Value Reference Range Interpretation Comments HEMOGLOBIN ([facility]) (test code = 7.9 GM/DL 11.2-15.7 L 410) HEMATOCRIT ([facility]) (test code = 23.3 % 34.1-44.9 L 411) POCT-GLUCOSE [id number] 13:32:00 Test Item Value Reference Range Interpretation Comments POC-GLUCOSE METER 116 mg/dL 70-110 H TESTED AT [place] [address] ([facility]) (test code = [facility] 1538) [address] [id number] 12:04:00 Test Item Value Reference Range Interpretation Comments PROCALCITONIN ([facility]) (test code 2.57 ng/mL <0.05 H = 3036) SEPSIS RISK (ng/mL)Low: 0.05-0.50Intermediate: 0.51-2.00High: >=[id number] 11:04:00 Test Item Value Reference Range Interpretation Comments LIPASE (AKER) (test code = 749) 36 U/L 8-78 POCT-GLUCOSE [id number] 07:09:00 Test Item Value Reference Range Interpretation Comments POC-GLUCOSE METER 91 mg/dL 70-110 TESTED AT [place] [address] ([facility]) (test code = [facility] [address] 1538) CALCIUM, [id number] 06:30:00 Test Item Value Reference Range Interpretation Comments CALCIUM IONIZED ([facility]) (test 1.10 mmol/L 1.12-1.27 L code = 698) PH, BLOOD ([facility]) (test code = 7.40 1810) BLOOD GAS, [id number] 05:31:00 Test Item Value Reference Range Interpretation Comments PH VENOUS (BEAKER) (test code = 7.44 7.32-7.42 H 701) PCO2 VENOUS (BEAKER) (test code = 35 mmHg 41-51 L 755) PO2 VENOUS (BEAKER) (test code = 37 mmHg 25-40 702) O2 SATURATION VENOUS (BEAKER) 72.3 % 40.0-70.0 H (test code = 703) HCO3 VENOUS (BEAKER) (test code = 23 mmol/L 21-29 705) BASE EXCESS VENOUS (BEAKER) (test -0.6 mmol/L -2.0-3.0 code = 704) PATIENT TEMPERATURE (BEAKER) 37.0 C (test code = 1818) FIO2 (BEAKER) (test code = 1819) 20.0 % COMPREHENSIVE METABOLIC [id number] 05:10:00 Test Item Value Reference Range Interpretation Comments TOTAL PROTEIN 5.2 gm/dL 6.0-8.3 L (BEAKER) (test code = 770) ALBUMIN (BEAKER) 2.7 g/dL 3.5-5.0 L (test code = 1145) ALKALINE PHOSPHATASE 141 U/L 40-150 (BEAKER) (test code = 346) BILIRUBIN TOTAL 1.9 mg/dL 0.2-1.2 H (BEAKER) (test code = 377) SODIUM (BEAKER) (test 137 meq/L 136-145 code = 381) POTASSIUM (BEAKER) 3.6 meq/L 3.5-5.1 (test code = 379) CHLORIDE (BEAKER) 103 meq/L 98-107 (test code = 382) CO2 (BEAKER) (test 23 meq/L 22-29 code = 355) BLOOD UREA NITROGEN 16 mg/dL 7-21 (BEAKER) (test code = 354) CREATININE (BEAKER) 1.85 mg/dL 0.57-1.25 H (test code = 358) GLUCOSE RANDOM 97 mg/dL 70-105 (BEAKER) (test code = 652) CALCIUM (BEAKER) 8.5 mg/dL 8.4-10.2 (test code = 697) AST (SGOT) (BEAKER) 141 U/L 5-34 H (test code = 353) ALT (SGPT) (BEAKER) 161 U/L 6-55 H (test code = 347) EGFR (BEAKER) (test 28 mL/min/1.73 ESTIMA JENELLE GFR IS code = 1092) sq m NOT ACCURATE CREATININE CLEARANCE IN PREDICTING GLOMERULAR FILTRATION RATE . ESTIMATED GFR I S NOT APPLICABLE FOR DIALYSIS PATIEN TS. [id number] 05:05:00 Test Item Value Reference Range Interpretation Comments PHOSPHORUS (BEAKER) (test code = 2.2 mg/dL 2.3-4.7 L 604) [id number] 05:05:00 Test Item Value Reference Range Interpretation Comments MAGNESIUM (BEAKER) (test code = 1.9 mg/dL 1.6-2.6 627) LACTIC ACID, VENOUS, WHOLE [id number] 04:44:00 Test Item Value Reference Range Interpretation Comments LACTATE BLOOD VENOUS (2) (BEAKER) 0.7 mmol/L 0.5-2.2 (test code = 2872) Effective 12/15/2015: Units/Reference Range ChangeNew: 0.5-2.2 mmol/L Previous: 5-20 mg/[id number] 04:42:00 Test Item Value Reference Range Interpretation Comments PARTIAL THROMBOPLASTIN TIME 41.1 seconds 22.5-36.0 H (BEAKER) (test code = 760) PROTHROMBIN [id number] 04:41:00 Test Item Value Reference Range Interpretation Comments PROTIME (BEAKER) (test code = 16.4 seconds 11.7-14.7 H 759) INR (BEAKER) (test code = 370) 1.3 <=5.9 RECOMMENDED COUMADIN/WARFARIN INR THERAPY RANGESSTANDARD DOSE: 2.0 - 3.0 Includes: PROPHYLAXIS forvenous thrombosis, systemic embolization; TREATMENT for venous thrombosis and/or pulmonary embolus.HIGH RISK: Target INR is 2.5-3.5 for patients with mechanical heart valves.CBC (HEMOGRAM ONLY)2018-05-01 04:33:00 Test Item Value Reference Range Interpretation Comments WHITE BLOOD CELL COUNT (BEAKER) 10.2 K/ L 3.5-10.5 (test code = 775) RED BLOOD CELL COUNT (BEAKER) 2.26 M/ L 3.93-5.22 L (test code = 761) HEMOGLOBIN (BEAKER) (test code = 7.6 GM/DL 11.2-15.7 L 410) HEMATOCRIT (BEAKER) (test code = 22.8 % 34.1-44.9 L 411) MEAN CORPUSCULAR VOLUME (BEAKER) 100.9 fL 79.4-94.8 H (test code = 753) MEAN CORPUSCULAR HEMOGLOBIN 33.6 pg 25.6-32.2 H (BEAKER) (test code = 751) MEAN CORPUSCULAR HEMOGLOBIN CONC 33.3 GM/DL 32.2-35.5 (BEAKER) (test code = 752) RED CELL DISTRIBUTION WIDTH 17.1 % 11.7-14.4 H (BEAKER) (test code = 412) PLATELET COUNT (BEAKER) (test 184 K/CU MM 150-450 code = 756) MEAN PLATELET VOLUME (BEAKER) 10.0 fL 9.4-12.3 (test code = 754) NUCLEATED RED BLOOD CELLS 1 /100 WBC 0-0 H (BEAKER) (test code = 413) POCT-GLUCOSE [id number] 22:06:00 Test Item Value Reference Range Interpretation Comments POC-GLUCOSE METER 109 mg/dL 70-110 TESTED AT [facility] 6720 (BEAKER) (test code = [place] 1534) [address] [id number] 21:01:00 Test Item Value Reference Range Interpretation Comments POTASSIUM (BEAKER) 4.1 meq/L 3.5-5.1 Specimen slightly (test code = 379) hemolyzed [id number] 18:20:00 Test Item Value Reference Range Interpretation Comments POTASSIUM (BEAKER) (test code = 4.0 meq/L 3.5-5.1 379) [id number] 18:20:00 Test Item Value Reference Range Interpretation Comments MAGNESIUM (BEAKER) (test code = 1.8 mg/dL 1.6-2.6 627) [id number] 18:20:00 Test Item Value Reference Range Interpretation Comments PHOSPHORUS (BEAKER) (test code = 1.9 mg/dL 2.3-4.7 L 604) [id number] 18:20:00 Test Item Value Reference Range Interpretation Comments CALCIUM (BEAKER) (test code = 697) 8.9 mg/dL 8.4-10.2 POCT-GLUCOSE [id number] 17:24:00 Test Item Value Reference Range Interpretation Comments POC-GLUCOSE METER 100 mg/dL 70-110 TEST[facility] AT [place] [address] [facility] 1538[facility] [address] BLOOD GAS, [id number] 14:09:00 Test Item Value Reference Range Interpretation Comments PH VENOUS (BEAKER) (test code = 7.46 7.32-7.42 H 701) PCO2 VENOUS (BEAKER) (test code = 37 mmHg 41-51 L 755) PO2 VENOUS (BEAKER) (test code = 29 mmHg 25-40 702) O2 SATURATION VENOUS (BEAKER) 58.8 % 40.0-70.0 (test code = 703) HCO3 VENOUS (BEAKER) (test code = 25 mmol/L 21-29 705) BASE EXCESS VENOUS (BEAKER) (test 1.6 mmol/L -2.0-3.0 code = 704) PATIENT TEMPERATURE (BEAKER) (test 37.0 C code = 1818) FIO2 (BEAKER) (test code = 1819) 100.0 % [id number] 13:11:00 Test Item Value Reference Range Interpretation Comments POTASSIUM (BEAKER) (test code = 4.2 meq/L 3.5-5.1 379) POCT-GLUCOSE [id number] 12:04:00 Test Item Value Reference Range Interpretation Comments POC-GLUCOSE METER 86 mg/dL 70-110 TESTED AT [place] [address] (BEAKER) (test code = [facility] [address] 1538) [id number] 08:55:00 Test Item Value Reference Range Interpretation Comments POTASSIUM (BEAKER) (test code = 4.2 meq/L 3.5-5.1 379) BLOOD GAS, [id number] 08:49:00 Test Item Value Reference Range Interpretation Comments PH VENOUS (BEAKER) (test code = 7.43 7.32-7.42 H 701) PCO2 VENOUS (BEAKER) (test code = 35 mmHg 41-51 L 755) PO2 VENOUS (BEAKER) (test code = 28 mmHg 25-40 702) O2 SATURATION VENOUS (BEAKER) 55.2 % 40.0-70.0 (test code = 703) HCO3 VENOUS (BEAKER) (test code = 23 mmol/L 21-29 705) BASE EXCESS VENOUS (BEAKER) (test -1.3 mmol/L -2.0-3.0 code = 704) PATIENT TEMPERATURE (BEAKER) 37.0 C (test code = 1818) FIO2 (BEAKER) (test code = 1819) 100.0 % Please obtain with patient off bipapPOCT-GLUCOSE [id number] 07:13:00 Test Item Value Reference Range Interpretation Comments POC-GLUCOSE METER 83 mg/dL 70-110 TESTED AT [facility] 6720 (BEAKER) (test code = [place] [address] 1538) [id number] 04:01:00 Test Item Value Reference Range Interpretation Comments PHOSPHORUS (BEAKER) (test code = 1.8 mg/dL 2.3-4.7 L 604) [id number] 04:01:00 Test Item Value Reference Range Interpretation Comments MAGNESIUM (BEAKER) (test code = 1.7 mg/dL 1.6-2.6 627) COMPREHENSIVE METABOLIC [id number] 04:01:00 Test Item Value Reference Range Interpretation Comments TOTAL PROTEIN 5.5 gm/dL 6.0-8.3 L (BEAKER) (test code = 770) ALBUMIN (BEAKER) 2.9 g/dL 3.5-5.0 L (test code = 1145) ALKALINE PHOSPHATASE 125 U/L 40-150 (BEAKER) (test code = 346) BILIRUBIN TOTAL 2.0 mg/dL 0.2-1.2 H (BEAKER) (test code = 377) SODIUM (BEAKER) (test 135 meq/L 136-145 L code = 381) POTASSIUM (BEAKER) 4.2 meq/L 3.5-5.1 (test code = 379) CHLORIDE (BEAKER) 102 meq/L 98-107 (test code = 382) CO2 (BEAKER) (test 25 meq/L 22-29 code = 355) BLOOD UREA NITROGEN 11 mg/dL 7-21 (BEAKER) (test code = 354) CREATININE (BEAKER) 1.23 mg/dL 0.57-1.25 (test code = 358) GLUCOSE RANDOM 76 mg/dL 70-105 (BEAKER) (test code = 652) CALCIUM (BEAKER) 8.6 mg/dL 8.4-10.2 (test code = 697) AST (SGOT) (BEAKER) 307 U/L 5-34 H (test code = 353) ALT (SGPT) (BEAKER) 262 U/L 6-55 H (test code = 347) EGFR (BEAKER) (test 45 mL/min/1.73 ESTIMA JENELLE GFR IS code = 1092) sq m NOT ACCURATE CREATININE CLEARANCE IN PREDICTING GLOMERULAR FILTRATION RATE . ESTIMATED GFR I S NOT APPLICABLE FOR DIALYSIS PATIEN TS. LACTIC ACID, ARTERIAL, WHOLE [id number] 03:49:00 Test Item Value Reference Range Interpretation Comments LACTATE BLOOD ARTERIAL (2) 0.7 mmol/L 0.5-2.2 (BEAKER) (test code = 2874) Effective 12/15/2015: Units/Reference Range ChangeNew: 0.5-2.2 mmol/L Previous: 5-20 mg/dLCBC (HEMOGRAM ONLY)2018-04-30 03:49:00 Test Item Value Reference Range Interpretation Comments WHITE BLOOD CELL COUNT (BEAKER) 9.3 K/ L 3.5-10.5 (test code = 775) RED BLOOD CELL COUNT (BEAKER) 2.39 M/ L 3.93-5.22 L (test code = 761) HEMOGLOBIN (BEAKER) (test code = 8.1 GM/DL 11.2-15.7 L 410) HEMATOCRIT (BEAKER) (test code = 24.4 % 34.1-44.9 L 411) MEAN CORPUSCULAR VOLUME (BEAKER) 102.1 fL 79.4-94.8 H (test code = 753) MEAN CORPUSCULAR HEMOGLOBIN 33.9 pg 25.6-32.2 H (BEAKER) (test code = 751) MEAN CORPUSCULAR HEMOGLOBIN CONC 33.2 GM/DL 32.2-35.5 (BEAKER) (test code = 752) RED CELL DISTRIBUTION WIDTH 16.1 % 11.7-14.4 H (BEAKER) (test code = 412) PLATELET COUNT (BEAKER) (test 130 K/CU MM 150-450 L code = 756) MEAN PLATELET VOLUME (BEAKER) 9.6 fL 9.4-12.3 (test code = 754) NUCLEATED RED BLOOD CELLS 1 /100 WBC 0-0 H (BEAKER) (test code = 413) [id number] 03:47:00 Test Item Value Reference Range Interpretation Comments PARTIAL THROMBOPLASTIN TIME 32.8 seconds 22.5-36.0 (BEAKER) (test code = 760) PROTHROMBIN [id number] 03:46:00 Test Item Value Reference Range Interpretation Comments PROTIME (BEAKER) (test code = 15.0 seconds 11.7-14.7 H 759) INR (BEAKER) (test code = 370) 1.2 <=5.9 RECOMMENDED COUMADIN/WARFARIN INR THERAPY RANGESSTANDARD DOSE: 2.0 - 3.0 Includes: PROPHYLAXIS forvenous thrombosis, systemic embolization; TREATMENT for venous thrombosis and/or pulmonary embolus.HIGH RISK: Target INR is 2.5-3.5 for patients with mechanical heart valves.CALCIUM, [id number] 03:38:00 Test Item Value Reference Range Interpretation Comments CALCIUM IONIZED (BEAKER) (test 1.17 mmol/L 1.12-1.27 code = 698) PH, BLOOD ([facility]) (test code = 7.39 1810) POCT-GLUCOSE [id number] 23:04:00 Test Item Value Reference Range Interpretation Comments POC-GLUCOSE METER 94 mg/dL 70-110 TESTED AT [place] [address] ([facility]) (test code = [facility] [address] 1538) [id number] 21:57:00 Test Item Value Reference Range Interpretation Comments POTASSIUM (BEAKER) (test code = 4.4 meq/L 3.5-5.1 379) POCT-GLUCOSE [id number] 18:02:00 Test Item Value Reference Range Interpretation Comments POC-GLUCOSE METER 99 mg/dL 70-110 TESTED AT [place] [address] ([facility]) (test code = [facility] [address] 1538) BLOOD GAS, [id number] 17:15:00 Test Item Value Reference Range Interpretation Comments PH VENOUS (BEAKER) (test code = 7.31 7.32-7.42 L 701) PCO2 VENOUS (BEAKER) (test code = 57 mmHg 41-51 H 755) PO2 VENOUS (BEAKER) (test code = 30 mmHg 25-40 702) O2 SATURATION VENOUS (BEAKER) 49.7 % 40.0-70.0 (test code = 703) HCO3 VENOUS (BEAKER) (test code = 28 mmol/L 21-29 705) BASE EXCESS VENOUS (BEAKER) (test 1.2 mmol/L -2.0-3.0 code = 704) PATIENT TEMPERATURE (BEAKER) (test 37.0 C code = 1818) [id number] 16:07:00 Test Item Value Reference Range Interpretation Comments POTASSIUM (BEAKER) (test code = 4.4 meq/L 3.5-5.1 379) [id number] 16:07:00 Test Item Value Reference Range Interpretation Comments MAGNESIUM (BEAKER) (test code = 2.0 mg/dL 1.6-2.6 627) [id number] 16:07:00 Test Item Value Reference Range Interpretation Comments PHOSPHORUS (BEAKER) (test code = 2.1 mg/dL 2.3-4.7 L 604) [id number] 16:07:00 Test Item Value Reference Range Interpretation Comments CALCIUM (BEAKER) (test code = 697) 8.2 mg/dL 8.4-10.2 L MR, ABDOMEN, [id number] 15:19:00FINAL REPORT INDICATION:57-year-old female with abdominal pain, [...] 14cm in length and 4.5 cm in cross-section. [...] to pancreatitis. Signed: Selwyn Laboy MDReport Verified Date/Time: 04/29/2018 15:19:21 Reading Location: [address] Body Reading Room U/S, RENAL WITH [id number] 14:53:00Reason for exam:->ENRIQUE with severe sepsisShould this [...] diseases. Signed: Austin Ken MDReportVerified Date/Time: 04/29/2018 14:53:07 Reading Location: [facility] [id number] Ultrasound Reading Room BLOOD GAS, [id number] 14:33:00 Test Item Value Reference Range Interpretation Comments PH VENOUS (BEAKER) (test code = 7.30 7.32-7.42 L 701) PCO2 VENOUS (BEAKER) (test code = 58 mmHg 41-51 H 755) PO2 VENOUS (BEAKER) (test code = 25 mmHg 25-40 702) O2 SATURATION VENOUS (BEAKER) 38.0 % 40.0-70.0 L (test code = 703) HCO3 VENOUS (BEAKER) (test code = 28 mmol/L 21-29 705) BASE EXCESS VENOUS (BEAKER) (test 0.5 mmol/L -2.0-3.0 code = 704) PATIENT TEMPERATURE (BEAKER) (test 37.0 C code = 1818) FIO2 (BEAKER) (test code = 1819) 100.0 % POCT-GLUCOSE [id number] 12:20:00 Test Item Value Reference Range Interpretation Comments POC-GLUCOSE METER 116 mg/dL 70-110 H TESTED AT [facility] 6720 (BEAKER) (test code = [place] 1538) [id number] BLOOD GAS, [id number] 10:57:00 Test Item Value Reference Range Interpretation Comments PH VENOUS (BEAKER) (test code = 7.25 7.32-7.42 L 701) PCO2 VENOUS (BEAKER) (test code = 68 mmHg 41-51 H 755) PO2 VENOUS (BEAKER) (test code = 34 mmHg 25-40 702) O2 SATURATION VENOUS (BEAKER) 53.1 % 40.0-70.0 (test code = 703) HCO3 VENOUS (BEAKER) (test code = 29 mmol/L 21-29 705) BASE EXCESS VENOUS (BEAKER) (test 1.2 mmol/L -2.0-3.0 code = 704) PATIENT TEMPERATURE (BEAKER) (test 37.0 C code = 1818) FIO2 (BEAKER) (test code = 1819) 100.0 % [id number] 10:19:00 Test Item Value Reference Range Interpretation Comments POTASSIUM (BEAKER) (test code = 4.6 meq/L 3.5-5.1 379) ANTI-NUCLEAR ANTIBODY (ANTONIETA)2018-04-29 10:04:00 Test Item Value Reference Range Interpretation Comments ANTI-NUCLEAR ANTIBODY (ANTONIETA) (BEAKER) Negative Negative (test code = 418) Test performed by IFA method.Test performed by IFA method.POCT-GLUCOSE METER 2018-04-29 08:21:00 Test Item Value Reference Range Interpretation Comments POC-GLUCOSE METER 125 mg/dL 70-110 H TESTED AT [facility] 6720 (BEAKER) (test code = [place] 1538) [id number] BLOOD GAS, [id number] 06:41:00 Test Item Value Reference Range Interpretation Comments PH ARTERIAL (BEAKER) (test code = 7.20 7.35-7.45 LL 383) PCO2 ARTERIAL (BEAKER) (test code 65 mmHg 35-45 H = 384) PO2 ARTERIAL (BEAKER) (test code 183 mmHg 80-90 H = 385) O2 SATURATION ARTERIAL (BEAKER) 98.9 % 96.0-97.0 H (test code = 386) HCO3 ARTERIAL (BEAKER) (test code 25 mmol/L 21-29 = 388) BASE EXCESS ARTERIAL (BEAKER) -3.8 mmol/L -2.0-3.0 L (test code = 387) PATIENT TEMPERATURE (BEAKER) 37.0 C (test code = 1818) FIO2 (BEAKER) (test code = 1819) 28.0 % CALCIUM, [id number] 06:14:00 Test Item Value Reference Range Interpretation Comments CALCIUM IONIZED (BEAKER) (test 1.11 mmol/L 1.12-1.27 L code = 698) PH, BLOOD (BEAKER) (test code = 7.20 1810) COMPREHENSIVE METABOLIC [id number] 06:06:00 Test Item Value Reference Range Interpretation Comments TOTAL PROTEIN 6.1 gm/dL 6.0-8.3 (BEAKER) (test code = 770) ALBUMIN (BEAKER) 3.3 g/dL 3.5-5.0 L (test code = 1145) ALKALINE PHOSPHATASE 119 U/L 40-150 (BEAKER) (test code = 346) BILIRUBIN TOTAL 2.1 mg/dL 0.2-1.2 H (BEAKER) (test code = 377) SODIUM (BEAKER) (test 136 meq/L 136-145 code = 381) POTASSIUM (BEAKER) 4.5 meq/L 3.5-5.1 (test code = 379) CHLORIDE (BEAKER) 104 meq/L 98-107 (test code = 382) CO2 (BEAKER) (test 23 meq/L 22-29 code = 355) BLOOD UREA NITROGEN 29 mg/dL 7-21 H (BEAKER) (test code = 354) CREATININE (BEAKER) 2.73 mg/dL 0.57-1.25 H (test code = 358) GLUCOSE RANDOM 115 mg/dL 70-105 H (BEAKER) (test code = 652) CALCIUM (BEAKER) 8.1 mg/dL 8.4-10.2 L (test code = 697) AST (SGOT) (BEAKER) 850 U/L 5-34 H (test code = 353) ALT (SGPT) (BEAKER) 450 U/L 6-55 H (test code = 347) EGFR (BEAKER) (test 18 mL/min/1.73 ESTIMA JENELLE GFR IS code = 1092) sq m NOT ACCURATE CREATININE CLEARANCE IN PREDICTING GLOMERULAR FILTRATION RATE . ESTIMATED GFR I S NOT APPLICABLE FOR DIALYSIS PATIEN TS. BASIC METABOLIC [id number] 06:05:00 Test Item Value Reference Range Interpretation Comments SODIUM (BEAKER) 136 meq/L 136-145 (test code = 381) POTASSIUM (BEAKER) 4.5 meq/L 3.5-5.1 (test code = 379) CHLORIDE (BEAKER) 104 meq/L 98-107 (test code = 382) CO2 (BEAKER) (test 23 meq/L 22-29 code = 355) BLOOD UREA NITROGEN 29 mg/dL 7-21 H (BEAKER) (test code = 354) CREATININE (BEAKER) 2.73 mg/dL 0.57-1.25 H (test code = 358) GLUCOSE RANDOM 115 mg/dL 70-105 H (BEAKER) (test code = 652) CALCIUM (BEAKER) 8.1 mg/dL 8.4-10.2 L (test code = 697) EGFR (BEAKER) (test 18 mL/min/1.73 ESTIMA JENELLE GFR IS code = 1092) sq m NOT ACCURATE CREATININE CLEARANCE IN PREDICTING GLOMERULAR FILTRATION RATE . ESTIMATED GFR I S NOT APPLICABLE FOR DIALYSIS PATIEN TS. [id number] 05:13:00 Test Item Value Reference Range Interpretation Comments PHOSPHORUS (BEAKER) (test code = 3.5 mg/dL 2.3-4.7 604) [id number] 05:13:00 Test Item Value Reference Range Interpretation Comments MAGNESIUM (BEAKER) (test code = 2.2 mg/dL 1.6-2.6 627) HIV-1 ANTIGEN WITH HIV-1/2 [id number] 05:12:00 Test Item Value Reference Range Interpretation Comments HIV-1 ANTIGEN WITH HIV 1\T\2 Nonreactive Nonreactive ANTIBODY (2) (BEAKER) (test code = 2586) LACTIC ACID, ARTERIAL, WHOLE [id number] 04:48:00 Test Item Value Reference Range Interpretation Comments LACTATE BLOOD ARTERIAL (2) 1.0 mmol/L 0.5-2.2 (BEAKER) (test code = 2874) Effective 12/15/2015: Units/Reference Range ChangeNew: 0.5-2.2 mmol/L Previous: 5-20 mg/[id number] 04:47:00 Test Item Value Reference Range Interpretation Comments PARTIAL THROMBOPLASTIN TIME 34.3 seconds 22.5-36.0 (BEAKER) (test code = 760) PROTHROMBIN [id number] 04:45:00 Test Item Value Reference Range Interpretation Comments PROTIME (BEAKER) (test code = 14.9 seconds 11.7-14.7 H 759) INR (BEAKER) (test code = 370) 1.2 <=5.9 RECOMMENDED COUMADIN/WARFARIN INR THERAPY RANGESSTANDARD DOSE: 2.0 - 3.0 Includes: PROPHYLAXIS forvenous thrombosis, systemic embolization; TREATMENT for venous thrombosis and/or pulmonary embolus.HIGH RISK: Target INR is 2.5-3.5 for patients with mechanical heart valves.CBC (HEMOGRAM ONLY)2018-04-29 04:41:00 Test Item Value Reference Range Interpretation Comments WHITE BLOOD CELL COUNT (BEAKER) 10.8 K/ L 3.5-10.5 H (test code = 775) RED BLOOD CELL COUNT (BEAKER) 2.62 M/ L 3.93-5.22 L (test code = 761) HEMOGLOBIN (BEAKER) (test code = 8.9 GM/DL 11.2-15.7 L 410) HEMATOCRIT (BEAKER) (test code = 27.2 % 34.1-44.9 L 411) MEAN CORPUSCULAR VOLUME (BEAKER) 103.8 fL 79.4-94.8 H (test code = 753) MEAN CORPUSCULAR HEMOGLOBIN 34.0 pg 25.6-32.2 H (BEAKER) (test code = 751) MEAN CORPUSCULAR HEMOGLOBIN CONC 32.7 GM/DL 32.2-35.5 (BEAKER) (test code = 752) RED CELL DISTRIBUTION WIDTH 15.8 % 11.7-14.4 H (BEAKER) (test code = 412) PLATELET COUNT (BEAKER) (test 123 K/CU MM 150-450 L code = 756) MEAN PLATELET VOLUME (BEAKER) 9.9 fL 9.4-12.3 (test code = 754) NUCLEATED RED BLOOD CELLS 0 /100 WBC 0-0 (BEAKER) (test code = 413) [id number] 00:18:00 Test Item Value Reference Range Interpretation Comments POTASSIUM (BEAKER) (test code = 3.9 meq/L 3.5-5.1 379) POCT-GLUCOSE [id number] 22:25:00 Test Item Value Reference Range Interpretation Comments POC-GLUCOSE METER 172 mg/dL 70-110 H TESTED AT [facility] 6720 (BEAKER) (test code = [place] 1538) [address] [id number] 20:46:00 Test Item Value Reference Range Interpretation Comments CALCIUM (BEAKER) (test code = 697) 7.1 mg/dL 8.4-10.2 L [id number] 20:34:00 Test Item Value Reference Range Interpretation Comments PHOSPHORUS (BEAKER) 3.5 mg/dL 2.3-4.7 Specimen slightly (test code = 604) hemolyzed [id number] 20:34:00 Test Item Value Reference Range Interpretation Comments POTASSIUM (BEAKER) 3.9 meq/L 3.5-5.1 Specimen slightly (test code = 379) hemolyzed [id number] 20:32:00 Test Item Value Reference Range Interpretation Comments MAGNESIUM (BEAKER) 2.2 mg/dL 1.6-2.6 Specimen slightly (test code = 627) hemolyzed POCT-GLUCOSE [id number] 18:02:00 Test Item Value Reference Range Interpretation Comments POC-GLUCOSE METER 151 mg/dL 70-110 H TESTED AT [facility] [address] ([facility]) (test code = [place] 1538) [address] [id number] 15:43:00 Test Item Value Reference Range Interpretation Comments POTASSIUM (BEAKER) (test code = 4.0 meq/L 3.5-5.1 379) RAD, CHEST, 1 VIEW, NON [id number] 15:34:00Reason for exam:->HD cath placementShould this be performed at the bedside?->YesFINAL REPORT AP chest HISTORY: 04/28/2018 IMPRESSION:Right IJ dialysis catheter placed with tip at upper SVC. Remainder supportive lines unchanged. Stable cardiac silhouette. Hypoinflation. Mild perihilar atelectasis. No pneumothorax. Signed: Madeleine Santacruz MDReport Verified Date/Time: 04/28/2018 15:34:26 Reading Location: [address] Ortho Consult Reading Room PLATELET [id number] 15:32:00 Test Item Value Reference Range Interpretation Comments PLATELET COUNT (BEAKER) (test 105 K/CU MM 150-450 L code = 756) Please draw in citrate (blue top) tube at next blood drawACETAMINOPHEN LEVEL 2018-04-28 11:35:00 Test Item Value Reference Range Interpretation Comments ACETAMINOPHEN LEVEL (BEAKER) (test < ug/mL 10.0-30.0 L code = 344) Therapeutic Range: 10.0-30.0 g/mLToxic Levels: >200.0 g/mLPOCT-GLUCOSE [id number] 11:15:00 Test Item Value Reference Range Interpretation Comments POC-GLUCOSE METER 152 mg/dL 70-110 H TESTED AT [facility] 67[address] [facility] (test code = [place] [facility] 1538) [address] HEPATITIS B SURFACE [id number] 11:06:00 Test Item Value Reference Range Interpretation Comments HEPATITIS B SURFACE ANTIGEN (2) Nonreactive Nonreactive (BEAKER) (test code = 2585) HEPATITIS B CORE ANTIBODY, [id number] 11:06:00 Test Item Value Reference Range Interpretation Comments HEPATITIS B CORE IGM ANTIBODY Nonreactive Nonreactive (BEAKER) (test code = 645) HEPATITIS C [id number] 11:06:00 Test Item Value Reference Range Interpretation Comments HEPATITIS C ANTIBODY (BEAKER) Nonreactive Nonreactive (test code = 367) HEPATITIS A ANTIBODY, [id number] 11:06:00 Test Item Value Reference Range Interpretation Comments HEPATITIS A IGM ANTIBODY (BEAKER) Nonreactive Nonreactive (test code = 498) PROTEIN, RANDOM [id number] 11:03:00 Test Item Value Reference Range Interpretation Comments PROTEIN, URINE (BEAKER) (test code 191 mg/dL 0-14 H = 1569) HEMOGLOBIN [id number] 10:45:00 Test Item Value Reference Range Interpretation Comments HEMOGLOBIN A1C (BEAKER) (test code = 5.5 % 4.3-6.1 368) CREATININE, RANDOM [id number] 10:42:00 Test Item Value Reference Range Interpretation Comments CREATININE URINE (BEAKER) (test 50.7 mg/dL code = 375) Reference Range: No NormalsSODIUM, RANDOM [id number] 10:42:00 Test Item Value Reference Range Interpretation Comments SODIUM URINE (BEAKER) (test code = 48 meq/L 243) Reference Range: No NormalsBASIC METABOLIC [id number] 09:24:00 Test Item Value Reference Range Interpretation Comments SODIUM (BEAKER) 132 meq/L 136-145 L (test code = 381) POTASSIUM (BEAKER) 3.7 meq/L 3.5-5.1 (test code = 379) CHLORIDE (BEAKER) 101 meq/L 98-107 (test code = 382) CO2 (BEAKER) (test 18 meq/L 22-29 L code = 355) BLOOD UREA NITROGEN 53 mg/dL 7-21 H (BEAKER) (test code = 354) CREATININE (BEAKER) 4.49 mg/dL 0.57-1.25 H (test code = 358) GLUCOSE RANDOM 127 mg/dL 70-105 H (BEAKER) (test code = 652) CALCIUM (BEAKER) 6.8 mg/dL 8.4-10.2 L (test code = 697) EGFR (BEAKER) (test 10 mL/min/1.73 ESTIMA JENELLE GFR IS code = 1092) sq m NOT ACCURATE CREATININE CLEARANCE IN PREDICTING GLOMERULAR FILTRATION RATE . ESTIMATED GFR I S NOT APPLICABLE FOR DIALYSIS PATIEN TS. CALCIUM, [id number] 09:19:00 Test Item Value Reference Range Interpretation Comments CALCIUM IONIZED (BEAKER) (test 0.93 mmol/L 1.12-1.27 L code = 698) PH, BLOOD (BEAKER) (test code = 7.20 1810) [id number] 09:13:00 Test Item Value Reference Range Interpretation Comments HAPTOGLOBIN (BEAKER) (test code = 164 mg/dL 14-258 366) [id number] 09:12:00 Test Item Value Reference Range Interpretation Comments PHOSPHORUS (BEAKER) (test code = 4.5 mg/dL 2.3-4.7 604) [id number] 09:12:00 Test Item Value Reference Range Interpretation Comments MAGNESIUM (BEAKER) (test code = 1.7 mg/dL 1.6-2.6 627) RAD, CHEST, 1 VIEW, NON [id number] 09:01:00Reason for exam:- >hypoxiaShould this be performed at the bedside?->YesFINAL REPORT AP chest HISTORY: Hypoxia COMPARISON: 04/27/2018 IMPRESSION:Suppor tive lines unchanged. Stable cardiac silhouette. Minimal perihilar atelectasis. No pneumothorax. Signed: Madeleine Santacruz MDReport Verified Date/Time: 04/28/2018 09:01:47 Reading Location: [place] [address]Ortho Consult Reading Room PHERAL BLOOD SMEAR - HOLD [id number] 08:58:00 Test Item Value Reference Range Interpretation Comments PERIPHERAL SMEAR SAVE (BEAKER) (test saved code = 1815) RETICULOCYTE [id number] 08:58:00 Test Item Value Reference Range Interpretation Comments RETICULOCYTE COUNT PCT (BEAKER) (test 3.6 % 0.5-1.7 H code = 575) HEMOGLOBIN AND [id number] 08:52:00 Test Item Value Reference Range Interpretation Comments HEMOGLOBIN (BEAKER) (test code = 8.2 GM/DL 11.2-15.7 L 410) HEMATOCRIT (BEAKER) (test code = 24.9 % 34.1-44.9 L 411) CBC W/PLT COUNT & AUTO [id number] 07:40:00 Test Item Value Reference Range Interpretation Comments WHITE BLOOD CELL COUNT (BEAKER) 5.2 K/ L 3.5-10.5 (test code = 775) RED BLOOD CELL COUNT (BEAKER) 2.31 M/ L 3.93-5.22 L (test code = 761) HEMOGLOBIN (BEAKER) (test code = 7.9 GM/DL 11.2-15.7 L 410) HEMATOCRIT (BEAKER) (test code = 23.8 % 34.1-44.9 L 411) MEAN CORPUSCULAR VOLUME (BEAKER) 103.0 fL 79.4-94.8 H (test code = 753) MEAN CORPUSCULAR HEMOGLOBIN 34.2 pg 25.6-32.2 H (BEAKER) (test code = 751) MEAN CORPUSCULAR HEMOGLOBIN CONC 33.2 GM/DL 32.2-35.5 (BEAKER) (test code = 752) RED CELL DISTRIBUTION WIDTH 15.3 % 11.7-14.4 H (BEAKER) (test code = 412) PLATELET COUNT (BEAKER) (test code 88 K/CU MM 150-450 L = 756) MEAN PLATELET VOLUME (BEAKER) 9.7 fL 9.4-12.3 (test code = 754) NUCLEATED RED BLOOD CELLS (BEAKER) 1 /100 WBC 0-0 H (test code = 413) (MANUAL DIFFERENTIAL)2018-04-28 07:40:00 Test Item Value Reference Range Interpretation Comments NEUTROPHILS - REL (DIFF) (BEAKER) 85 % (test code = 1359) LYMPHOCYTES - REL (DIFF) (BEAKER) 7 % (test code = 1360) MONOCYTES - REL (DIFF) (BEAKER) 1 % (test code = 1361) EOSINOPHILS - REL (DIFF) (BEAKER) 1 % (test code = 1362) BASOPHILS - REL (DIFF) (BEAKER) 0 % (test code = 1363) BANDS - REL (DIFF) (BEAKER) (test 5 % 0-10 code = 1348) ATYPICAL LYMPHOCYTE - REL (DIFF) 1 % 0-0 H (BEAKER) (test code = 260) NEUTROPHILS - ABS (DIFF) (BEAKER) 4.42 K/ L 1.80-8.00 (test code = 1365) LYMPHOCYTES - ABS (DIFF) (BEAKER) 0.36 K/ L 1.48-4.50 L (test code = 1366) MONOCYTES - ABS (DIFF) (BEAKER) 0.05 K/ L 0.00-1.30 (test code = 1367) EOSINOPHILS - ABS (DIFF) (BEAKER) 0.05 K/ L 0.00-0.50 (test code = 1368) BASOPHILS - ABS (DIFF) (BEAKER) 0.00 K/ L 0.00-0.20 (test code = 1369) BANDS-ABS (DIFF) (BEAKER) (test 0.3 K/ L 0.0-0.8 code = 1349) ATYPICAL LYMPHOCYTES - ABS (DIFF) 0.05 K/ L 0.00-0.00 H (BEAKER) (test code = 263) TOTAL COUNTED (BEAKER) (test code 100 = 1351) BANDS + SEGMENTED NEUTROPHILS 4.68 (BEAKER) (test code = 1352) MANUAL NRBC PER 100 CELLS (BEAKER) 1 /100 WBC 0-0 H (test code = 1353) PLT MORPHOLOGY (BEAKER) (test code Normal = 486) RBC MORPHOLOGY (BEAKER) (test code Normal = 762) VACUOLATED NEUTROPHILS (BEAKER) Present (test code = 483) URINE [id number] 05:57:00 Test Item Value Reference Range Interpretation Comments CULTURE (BEAKER) (test code = 1095) No growth [id number] 05:00:00 Test Item Value Reference Range Interpretation Comments PHOSPHORUS (BEAKER) (test code = 4.4 mg/dL 2.3-4.7 604) [id number] 05:00:00 Test Item Value Reference Range Interpretation Comments MAGNESIUM (BEAKER) (test code = 1.6 mg/dL 1.6-2.6 627) HEMOGLOBIN AND [id number] 04:48:00 Test Item Value Reference Range Interpretation Comments HEMOGLOBIN (BEAKER) (test code = 8.0 GM/DL 11.2-15.7 L 410) HEMATOCRIT (BEAKER) (test code = 24.0 % 34.1-44.9 L 411) LIPID [id number] 03:38:00 Test Item Value Reference Range Interpretation Comments TRIGLYCERIDES (BEAKER) (test code = 322 mg/dL 540) CHOLESTEROL (BEAKER) (test code = 131 mg/dL 631) HDL CHOLESTEROL (BEAKER) (test code 6 mg/dL = 976) LDL CHOLESTEROL CALCULATED (BEAKER) 61 mg/dL (test code = 633) Triglyceride Reference Range: Low Risk <150 Borderline 150-199 High Risk 200-499 Very High Risk >=500Cholesterol Reference Range: Low Risk <200 Borderline 200-239 High Risk >240HDL Cholesterol Reference Range: Low Risk >=60 High Risk <40LDL Cholesterol Reference Range: Optimal <100 Near Optimal 100-129 Borderline 130-159 High 160-189 Very High >=190HEPATIC FUNCTION [id number] 03:38:00 Test Item Value Reference Range Interpretation Comments TOTAL PROTEIN (BEAKER) (test code = 4.8 gm/dL 6.0-8.3 L 770) ALBUMIN (BEAKER) (test code = 1145) 2.7 g/dL 3.5-5.0 L BILIRUBIN TOTAL (BEAKER) (test code 1.8 mg/dL 0.2-1.2 H = 377) BILIRUBIN DIRECT (BEAKER) (test 1.3 mg/dL 0.1-0.5 H code = 706) ALKALINE PHOSPHATASE (BEAKER) (test 83 U/L 40-150 code = 346) AST (SGOT) (BEAKER) (test code = 1541 U/L 5-34 H 353) ALT (SGPT) (BEAKER) (test code = 487 U/L 6-55 H 347) LACTATE DEHYDROGENASE (LDH)2018-04-28 03:38:00 Test Item Value Reference Range Interpretation Comments LACTATE DEHYDROGENASE (BEAKER) (test 1138 U/L 125-220 H code = 635) [id number] 03:38:00 Test Item Value Reference Range Interpretation Comments LIPASE (BEAKER) (test code = 749) 525 U/L 8-78 H C-REACTIVE [id number] 03:38:00 Test Item Value Reference Range Interpretation Comments C-REACTIVE PROTEIN (BEAKER) (test 12.99 mg/dL 0.00-0.50 H code = 676) [id number] 03:23:00 Test Item Value Reference Range Interpretation Comments FIBRINOGEN LEVEL (BEAKER) (test 328 mg/dl 225-434 code = 658) [id number] 03:23:00 Test Item Value Reference Range Interpretation Comments PROTIME (BEAKER) (test code = 16.2 seconds 11.7-14.7 H 759) INR (BEAKER) (test code = 370) 1.3 <=5.9 PARTIAL THROMBOPLASTIN TIME 26.9 seconds 22.5-36.0 (BEAKER) (test code = 760) RECOMMENDED COUMADIN/WARFARIN INR THERAPY RANGESSTANDARD DOSE: 2.0 - 3.0 Includes: PROPHYLAXIS forvenous thrombosis, systemic embolization; TREATMENT for venous thrombosis and/or pulmonary embolus.HIGH RISK: Target INR is 2.5-3.5 for patients with mechanical heart valves.PROTHROMBIN [id number] 03:22:00 Test Item Value Reference Range Interpretation Comments PROTIME (BEAKER) (test code = 16.2 seconds 11.7-14.7 H 759) INR (BEAKER) (test code = 370) 1.3 <=5.9 RECOMMENDED COUMADIN/WARFARIN INR THERAPY RANGESSTANDARD DOSE: 2.0 - 3.0 Includes: PROPHYLAXIS forvenous thrombosis, systemic embolization; TREATMENT for venous thrombosis and/or pulmonary embolus.HIGH RISK: Target INR is 2.5-3.5 for patients with mechanical heart valves.POCT-GLUCOSE [id number] 02:57:00 Test Item Value Reference Range Interpretation Comments POC-GLUCOSE METER 135 mg/dL 70-110 H TESTED AT [facility] 67[address] ([facility]) (test code = [place] 1538) [id number] POCT-GLUCOSE [id number] 00:21:00 Test Item Value Reference Range Interpretation Comments POC-GLUCOSE METER 177 mg/dL 70-110 H TESTED AT [facility] 6720 ([place]) (test code = [place] 1538) [address] HEMOGLOBIN AND [id number] 00:21:00 Test Item Value Reference Range Interpretation Comments HEMOGLOBIN (BEAKER) (test code = 8.3 GM/DL 11.2-15.7 L 410) HEMATOCRIT (BEAKER) (test code = 24.6 % 34.1-44.9 L 411) POCT-GLUCOSE [id number] 22:08:00 Test Item Value Reference Range Interpretation Comments POC-GLUCOSE METER 156 mg/dL 70-110 H TESTED AT [facility] 6720 ([place]) (test code = [place] 1538) [address] POCT-GLUCOSE [id number] 18:16:00 Test Item Value Reference Range Interpretation Comments POC-GLUCOSE METER 156 mg/dL 70-110 H TESTED AT [facility] 67 ([facility]) (test code = [place] 1538) [address] LACTATE DEHYDROGENASE (LDH)2018-04-27 16:18:00 Test Item Value Reference Range Interpretation Comments LACTATE DEHYDROGENASE (BEAKER) (test 1130 U/L 125-220 H code = 635) RAD, CHEST, 1 VIEW, NON [id number] 15:58:00Reason for exam:->LIJ placementShould this be performed at the bedside?->YesFINAL REPORT HISTORY : LIJ placement. Comparison: 04/27/2018 performed earlier Comment: Single portable view of the chest was [...] lytic or blastic abnormalities are seen. Signed: Abhi Adams MDReport Verified Date/Time: 04/27/2018 15:58:19 Reading Location: [address] Reading Room HEMOGLOBIN AND [id number] 15:37:00 Test Item Value Reference Range Interpretation Comments HEMOGLOBIN (BEAKER) (test code = 8.8 GM/DL 11.2-15.7 L 410) HEMATOCRIT (BEAKER) (test code = 26.1 % 34.1-44.9 L 411) PERIPHERAL BLOOD SMEAR - HOLD [id number] 14:50:00 Test Item Value Reference Range Interpretation Comments PERIPHERAL SMEAR SAVE (BEAKER) (test saved code = 1815) C-REACTIVE [id number] 12:47:00 Test Item Value Reference Range Interpretation Comments C-REACTIVE PROTEIN (BEAKER) (test 9.17 mg/dL 0.00-0.50 H code = 676) POCT-GLUCOSE [id number] 12:15:00 Test Item Value Reference Range Interpretation Comments POC-GLUCOSE METER 164 mg/dL 70-110 H TESTED AT [facility] 6720 (BEAKER) (test code = [place] 1538) [id number] B-TYPE NATRIURETIC FACTOR (BNP)2018-04-27 11:37:00 Test Item Value Reference Range Interpretation Comments B-TYPE NATRIURETIC PEPTIDE (BEAKER) 176 pg/mL 0-100 H (test code = 700) HEMOGLOBIN AND [id number] 11:08:00 Test Item Value Reference Range Interpretation Comments HEMOGLOBIN (BEAKER) (test code = 8.7 GM/DL 11.2-15.7 L 410) HEMATOCRIT (BEAKER) (test code = 25.6 % 34.1-44.9 L 411) [id number] 10:07:00 Test Item Value Reference Range Interpretation Comments FERRITIN (BEAKER) (test code = 4542 ng/mL 5-275 H 361) VITAMIN [id number] 10:06:00 Test Item Value Reference Range Interpretation Comments VITAMIN B12 (BEAKER) (test code = > pg/mL 213-816 H 774) CBC W/PLT COUNT & AUTO [id number] 09:11:00 Test Item Value Reference Range Interpretation Comments WHITE BLOOD CELL COUNT (BEAKER) 4.9 K/ L 3.5-10.5 (test code = 775) RED BLOOD CELL COUNT (BEAKER) 2.72 M/ L 3.93-5.22 L (test code = 761) HEMOGLOBIN (BEAKER) (test code = 9.3 GM/DL 11.2-15.7 L 410) HEMATOCRIT (BEAKER) (test code = 27.0 % 34.1-44.9 L 411) MEAN CORPUSCULAR VOLUME (BEAKER) 99.3 fL 79.4-94.8 H (test code = 753) MEAN CORPUSCULAR HEMOGLOBIN 34.2 pg 25.6-32.2 H (BEAKER) (test code = 751) MEAN CORPUSCULAR HEMOGLOBIN CONC 34.4 GM/DL 32.2-35.5 (BEAKER) (test code = 752) RED CELL DISTRIBUTION WIDTH 14.4 % 11.7-14.4 (BEAKER) (test code = 412) PLATELET COUNT (BEAKER) (test 111 K/CU MM 150-450 L code = 756) MEAN PLATELET VOLUME (BEAKER) 9.5 fL 9.4-12.3 (test code = 754) NUCLEATED RED BLOOD CELLS 1 /100 WBC 0-0 H (BEAKER) (test code = 413) (CELLAVISION MANUAL DIFF)2018-04-27 09:11:00 Test Item Value Reference Range Interpretation Comments NEUTROPHILS - REL 61 % (CELLAVISION)(BEAKER) (test code = 2816) LYMPHOCYTES - REL 8 % (CELLAVISION)(BEAKER) (test code = 2817) MONOCYTES - REL 4 % (CELLAVISION)(BEAKER) (test code = 2818) EOSINOPHILS - REL 1 % (CELLAVISION)(BEAKER) (test code = 2819) BANDS - REL (CELLAVISION)(BEAKER) 26 % 0-10 H (test code = 2826) NEUTROPHILS - ABS 2.99 K/ul 1.56-6.13 (CELLAVISION)(BEAKER) (test code = 2830) LYMPHOCYTES - ABS 0.39 K/ul 1.18-3.74 L (CELLAVISION)(BEAKER) (test code = 2831) MONOCYTES - ABS 0.20 K/uL 0.24-0.36 L (CELLAVISION)(BEAKER) (test code = 2832) EOSINOPHILS - ABS 0.05 K/uL 0.04-0.36 (CELLAVISION)(BEAKER) (test code = 2834) BANDS - ABS (CELLAVISION)(BEAKER) 1.27 K/uL 0.00-0.80 H (test code = 2840) TOTAL COUNTED (BEAKER) (test code 100 = 1351) MANUAL NRBC PER 100 CELLS (BEAKER) 2 /100 WBC 0-0 H (test code = 1353) RBC MORPHOLOGY (BEAKER) (test code Normal = 762) WBC MORPHOLOGY (BEAKER) (test code Normal = 487) PLT MORPHOLOGY (BEAKER) (test code Normal = 486) ARTIFACT (CELLAVISION)(BEAKER) Present (test code = 3432) PLATELET CONCENTRATION Decreased (CELLAVISION)(BEAKER) (test code = 3438) Received comment: User comments: Slide comments:IRON, TIBC, % SAT. (WITHOUT FERRITIN)2018-04-27 09:05:00 Test Item Value Reference Range Interpretation Comments IRON (BEAKER) (test code = 547) 40 ug/dL 40-160 TOTAL IRON BINDING CAPACITY 111 ug/dL 250-450 L (BEAKER) (test code = 769) IRON % SATURATION (2) (BEAKER) 36 % 20-55 (test code = 2590) [id number] 09:03:00 Test Item Value Reference Range Interpretation Comments PHOSPHORUS (BEAKER) (test code = 4.2 mg/dL 2.3-4.7 604) LACTIC ACID, VENOUS, WHOLE [id number] 09:00:00 Test Item Value Reference Range Interpretation Comments LACTATE BLOOD VENOUS (2) (BEAKER) 1.0 mmol/L 0.5-2.2 (test code = 2872) Effective 12/15/2015: Units/Reference Range ChangeNew: 0.5-2.2 mmol/L Previous: 5-20 mg/dLHEMOGLOBIN [id number] 08:35:00 Test Item Value Reference Range Interpretation Comments HEMOGLOBIN A1C (BEAKER) (test code = 5.0 % 4.3-6.1 368) U/S, ABDOMINAL, [id number] 07:57:00Abdomen limited area? Add comment if clarification is needed.->Right upper quadrantReason for exam:- >pancreatitis, fatty liver, LFT elevationShould this be performed at the bedside?->YesFINAL REPORT Limited Abdominal ultrasound. Clinical history: pancreatitis, [...] The remainderof the abdomen was not assessed. Impression: 1. Enlarged, echogenic liver consistent with fatty infiltration.2. Gallbladder distention but no definite sonographic evidence of acute cholecystitis.3. Dila tation of the common bile duct. This could be further assessed with MRCP. Signed: Moses Baeza MDRort Verified Date/Time: 04/27/2018 07:57:35 Reading Location: [facility] [id number] Ortho Consult Reading Room [id number] 07:07:00 Test Item Value Reference Range Interpretation Comments MAGNESIUM (BEAKER) (test code = 1.8 mg/dL 1.6-2.6 627) LACTIC ACID, VENOUS, WHOLE [id number] 07:05:00 Test Item Value Reference Range Interpretation Comments LACTATE BLOOD VENOUS 1.1 mmol/L 0.5-2.2 Specime n slightly (2) (BEAKER) (test hemolyzed code = 2872) Effective 12/15/2015: Units/Reference Range ChangeNew: 0.5-2.2 mmol/L Previous: 5-20 mg/dLHEMOGLOBIN AND [id number] 06:54:00 Test Item Value Reference Range Interpretation Comments HEMOGLOBIN (BEAKER) (test code = 9.0 GM/DL 11.2-15.7 L 410) HEMATOCRIT (BEAKER) (test code = 26.7 % 34.1-44.9 L 411) POCT-GLUCOSE [id number] 06:28:00 Test Item Value Reference Range Interpretation Comments POC-GLUCOSE METER 122 mg/dL 70-110 H TESTED AT [facility] [address] (BEAKER) (test code = [place] 1538) [address] [id number] 05:17:00 Test Item Value Reference Range Interpretation Comments AMMONIA (BEAKER) (test code = 348) 40 mol/L 18-72 POCT-GLUCOSE [id number] 04:46:00 Test Item Value Reference Range Interpretation Comments POC-GLUCOSE METER 166 mg/dL 70-110 H TESTED AT [facility] [address] (BEAKER) (test code = [place] [place] 1538) [address] BLOOD GAS, [id number] 04:15:00 Test Item Value Reference Range Interpretation Comments PH ARTERIAL (BEAKER) (test code = 7.34 7.35-7.45 L 383) PCO2 ARTERIAL (BEAKER) (test code 38 mm Hg 35-45 = 384) PO2 ARTERIAL (BEAKER) (test code 113 mm Hg 80-90 H = 385) O2 SATURATION ARTERIAL (BEAKER) 97.6 % 96.0-97.0 H (test code = 386) HCO3 ARTERIAL (BEAKER) (test code 19 mmol/L 21-29 L = 388) BASE EXCESS ARTERIAL (BEAKER) -5.9 mmol/L -2.0-3.0 L (test code = 387) PATIENT TEMPERATURE (BEAKER) 38.3 (test code = 1818) FIO2 (BEAKER) (test code = 1819) 32 URINALYSIS W/ [id number] 01:36:00 Test Item Value Reference Range Interpretation Comments COLOR (BEAKER) (test code = 470) Dark Yellow CLARITY (BEAKER) (test code = Hazy 469) SPECIFIC GRAVITY UA (BEAKER) 1.035 1.001-1.035 (test code = 468) PH UA (BEAKER) (test code = 467) 5.5 5.0-8.0 PROTEIN UA (BEAKER) (test code = 200 mg/dL Negative A 464) GLUCOSE UA (BEAKER) (test code = 100 mg/dL Negative A 365) KETONES UA (BEAKER) (test code = Negative Negative 371) BILIRUBIN UA (BEAKER) (test code Positive Negative A = 462) BLOOD UA (BEAKER) (test code = Large Negative A 461) NITRITE UA (BEAKER) (test code = Negative Negative 465) LEUKOCYTE ESTERASE UA (BEAKER) Small Negative A (test code = 466) UROBILINOGEN UA (BEAKER) (test 2.0 mg/dL 0.2-1.0 H code = 463) RBC UA (BEAKER) (test code = 83 /HPF 519) WBC UA (BEAKER) (test code = 16 /HPF 520) MUCUS (BEAKER) (test code = Rare 1574) GRANULAR CASTS (BEAKER) (test 8 /LPF code = 515) AMORPHOUS CRYSTALS (BEAKER) Moderate (test code = 1584) SOURCE(BEAKER) (test code = Urine, [place] 3800) HEMOGLOBIN AND [id number] 01:19:00 Test Item Value Reference Range Interpretation Comments HEMOGLOBIN (BEAKER) (test code = 9.0 GM/DL 11.2-15.7 L 410) HEMATOCRIT (BEAKER) (test code = 26.3 % 34.1-44.9 L 411) [id number] 00:57:00 Test Item Value Reference Range Interpretation Comments PHOSPHORUS (BEAKER) (test code = 0.7 mg/dL 2.3-4.7 LL 604) COMPREHENSIVE METABOLIC [id number] 00:55:00 Test Item Value Reference Range Interpretation Comments TOTAL PROTEIN 4.7 gm/dL 6.0-8.3 L (BEAKER) (test code = 770) ALBUMIN (BEAKER) 2.8 g/dL 3.5-5.0 L (test code = 1145) ALKALINE PHOSPHATASE 79 U/L 40-150 (BEAKER) (test code = 346) BILIRUBIN TOTAL 2.9 mg/dL 0.2-1.2 H (BEAKER) (test code = 377) SODIUM (BEAKER) (test 130 meq/L 136-145 L code = 381) POTASSIUM (BEAKER) 3.2 meq/L 3.5-5.1 L (test code = 379) CHLORIDE (BEAKER) 99 meq/L 98-107 (test code = 382) CO2 (BEAKER) (test 19 meq/L 22-29 L code = 355) BLOOD UREA NITROGEN 41 mg/dL 7-21 H (BEAKER) (test code = 354) CREATININE (BEAKER) 2.58 mg/dL 0.57-1.25 H (test code = 358) GLUCOSE RANDOM 178 mg/dL 70-105 H (BEAKER) (test code = 652) CALCIUM (BEAKER) 7.2 mg/dL 8.4-10.2 L (test code = 697) AST (SGOT) (BEAKER) 845 U/L 5-34 H (test code = 353) ALT (SGPT) (BEAKER) 275 U/L 6-55 H (test code = 347) EGFR (BEAKER) (test 19 mL/min/1.73 ESTIMA JENELLE GFR IS code = 1092) sq m NOT ACCURATE CREATININE CLEARANCE IN PREDICTING GLOMERULAR FILTRATION RATE . ESTIMATED GFR I S NOT APPLICABLE FOR DIALYSIS PATIEN TS. Specimen slightly [id number] 00:53:00 Test Item Value Reference Range Interpretation Comments MAGNESIUM (BEAKER) (test code = 1.9 mg/dL 1.6-2.6 627) LIPID [id number] 00:53:00 Test Item Value Reference Range Interpretation Comments TRIGLYCERIDES (BEAKER) (test code = 742 mg/dL 540) CHOLESTEROL (BEAKER) (test code = 146 mg/dL 631) HDL CHOLESTEROL (BEAKER) (test code 9 mg/dL = 976) Calculated LDL not valid if triglyceride >400 mg/dLTriglyceride Reference Range: Low Risk <150 Borderline 150-199 High Risk 200-499 Very High Risk >=500Cholesterol Reference Range: Low Risk <200 Borderline 200-239 High Risk >240HDL Cholesterol Reference Range: Low Risk >=60 High Risk <40LDL Cholesterol ReferenceRange: Optimal <100 Near Optimal 100-129 Borderline 130-159 High 160-189 Very High >=190 Specimen slightly ictericCALCIUM, [id number] 00:50:00 Test Item Value Reference Range Interpretation Comments CALCIUM IONIZED (BEAKER) (test 1.02 mmol/L 1.12-1.27 L code = 698) PH, BLOOD (BEAKER) (test code = 7.31 1810) LACTIC ACID, VENOUS, WHOLE [id number] 00:47:00 Test Item Value Reference Range Interpretation Comments LACTATE BLOOD VENOUS (2) (BEAKER) 3.6 mmol/L 0.5-2.2 H (test code = 2872) Effective 12/15/2015: Units/Reference Range ChangeNew: 0.5-2.2 mmol/L Previous: 5-20 mg/dLCBC W/PLT COUNT & AUTO [id number] 00:40:00 Test Item Value Reference Range Interpretation Comments WHITE BLOOD CELL COUNT (BEAKER) 5.6 K/ L 3.5-10.5 (test code = 775) RED BLOOD CELL COUNT (BEAKER) 2.94 M/ L 3.93-5.22 L (test code = 761) HEMOGLOBIN (BEAKER) (test code = 10.1 GM/DL 11.2-15.7 L 410) HEMATOCRIT (BEAKER) (test code = 29.3 % 34.1-44.9 L 411) MEAN CORPUSCULAR VOLUME (BEAKER) 99.7 fL 79.4-94.8 H (test code = 753) MEAN CORPUSCULAR HEMOGLOBIN 34.4 pg 25.6-32.2 H (BEAKER) (test code = 751) MEAN CORPUSCULAR HEMOGLOBIN CONC 34.5 GM/DL 32.2-35.5 (BEAKER) (test code = 752) RED CELL DISTRIBUTION WIDTH 14.3 % 11.7-14.4 (BEAKER) (test code = 412) PLATELET COUNT (BEAKER) (test 124 K/CU MM 150-450 L code = 756) MEAN PLATELET VOLUME (BEAKER) 9.3 fL 9.4-12.3 L (test code = 754) NUCLEATED RED BLOOD CELLS 1 /100 WBC 0-0 H (BEAKER) (test code = 413) (CELLAVISION MANUAL DIFF)[id number] 00:40:00 Test Item Value Reference Range Interpretation Comments NEUTROPHILS - REL 46 % Green-Blue (CELLAVISION)(BEAKER) Neutro philic (test code = 2816) inclusion s seen. LYMPHOCYTES - REL 4 % (CELLAVISION)(BEAKER) (test code = 2817) MONOCYTES - REL 3 % (CELLAVISION)(BEAKER) (test code = 2818) BANDS - REL 47 % 0-10 H (CELLAVISION)(BEAKER) (test code = 2826) NEUTROPHILS - ABS 2.58 K/ul 1.56-6.13 (CELLAVISION)(BEAKER) (test code = 2830) LYMPHOCYTES - ABS 0.22 K/ul 1.18-3.74 L (CELLAVISION)(BEAKER) (test code = 2831) MONOCYTES - ABS 0.17 K/uL 0.24-0.36 L (CELLAVISION)(BEAKER) (test code = 2832) BANDS - ABS 2.63 K/uL 0.00-0.80 H (CELLAVISION)(BEAKER) (test code = 2840) TOTAL COUNTED (BEAKER) 100 (test code = 1351) LARGE PLT(BEAKER) (test Present code = 2156) TOXIC GRANULATION Present (BEAKER) (test code = 771) BASOPHILIC STIPPLING Present (BEAKER) (test code = 473) ARTIFACT Present (CELLAVISION)(BEAKER) (test code = 3432) PLATELET CONCENTRATION Decreased (CELLAVISION)(BEAKER) (test code = 3438) Green-Blue Neutrophilic inclusions seen.RAD, CHEST, 1 VIEW, NON [id number] 00:24:00Reason for exam:->sob, coughShould this be performed at the bedside?->YesFINAL REPORT Chest one view. Clinical history: Shortness [...] The aorta is uncoiled. Signed: Meghna Mares Verified Date/Time: 04/27/2018 00:24:54 Reading Location: [facility] C013Y CT Body Reading Room PROTHROMBIN [id number] 23:51:00 Test Item Value Reference Range Interpretation Comments PROTIME (BEAKER) (test code = 15.5 seconds 11.7-14.7 H 759) INR (BEAKER) (test code = 370) 1.2 <=5.9 RECOMMENDED COUMADIN/WARFARIN INR THERAPY RANGESSTANDARD DOSE: 2.0 - 3.0 Includes: PROPHYLAXIS forvenous thrombosis, systemic embolization; TREATMENT for venous thrombosis and/or pulmonary embolus.HIGH RISK: Target INR is 2.5-3.5 for patients with mechanical heart valves.[id number] 23:51:00 Test Item Value Reference Range Interpretation Comments FIBRINOGEN LEVEL (BEAKER) (test 231 mg/dl 225-434 code = 658)
[2020-12-29] MEDS ORDERED: NA CHLORIDE 0.9% 1,000 ML ONE (01:51)
[2020-12-29 02:10] LABS: Absolute Lymphocytes (CBC) 1.7 K/uL (0.7-4.9); Hematocrit 41.2 % (36.0-45.0); Lymphocytes % 21.1 % (15.3-44.8); MPV 7.4 fL (7.6-11.3); Protime INR 1.16; RBC Red Blood Cell Count 5.66 M/uL (3.86-4.86)
[2020-12-29] MEDS ORDERED: METHYLPREDNISOLONE 125 MG INJ ONE (02:19)
[2020-12-29] MEDS ORDERED: ACETAMINOPHEN 325 MG TABLET ONE (02:19)
[2020-12-29] MEDS ORDERED: Meropenem 1 GM/100 ML BAG ONE (02:19)
[2020-12-29 02:22] LABS: ALT/SGPT 11 U/L (12-78); AST/SGOT 11 U/L (15-37); Albumin 3.6 g/dL (3.4-5.0); Alkaline Phosphatase 90 U/L (45-117); BUN Blood Urea Nitrogen 17 mg/dL (7-18); Bicarbonate 29 mmol/L (21-32); Bilirubin Direct 0.3 mg/dL (0-0.2); Bilirubin Total 0.6 mg/dL (0.2-1.0); Glucose Level 148 mg/dL (74-106); Lipase 37 U/L (73-393); Magnesium 1.8 mg/dL (1.8-2.4); NT PRO-BNP 5160 pg/mL (<125); Potassium 3.9 mmol/L (3.5-5.1); Protein, Total 8.1 g/dL (6.4-8.2); Sodium Level 135 mmol/L (136-145); Troponin (Emerg Dept Use Only) < 0.02 ng/mL (0.0-0.045)
[2020-12-29 03:15] LABS: SARS-COV-2 RT PCR NEGATIVE (NEGATIVE)
[2020-12-29 03:46] LABS: Arterial Blood Carboxyhemoglob 8.3 % (0-1.5); Blood Gas Oxyhemoglobin 86.8 % (94-97); Blood O2 Saturation 95.7 % (92-98.5)
[2020-12-29 03:49] LABS: Anisocytosis 3+; Blood Morphology Comment NOTED (NOT SEEN); Platelet Estimate ADEQ; Polychromasia 2+; White Blood Cell Scan OK (OK)
--- NOTE | 2020-12-29 03:54 | EDPHYS ---
Physician Documentation [facility] Name: Madelaine Leonard Age: 60 yrs Sex: Female : 1960 Arrival Date: 12/29/2020 Time: 01:04 Bed 6 Private MD: ED Physician Rei Medellin HPI: 12/29 01:54 This 60 yrs old Female presents to ER via EMS with complaints of abd pain , jessie sob and weakness. 01:54 The patient has shortness of breath with light activity. Onset: The symptoms/episode jessie began/occurred 2 day(s) ago. Duration: The symptoms are continuous, and are steadily getting worse. The patient's shortness of breath has no apparent modifying factors. The patient presents with abdominal pain in the upper abdomen, in the lower abdomen, abdominal distention in the upper abdomen, in the lower abdomen. Onset: The symptoms/episode began/occurred 1 day(s) ago. The patient or guardian reports cough, difficulty breathing. Modifying factors: The symptoms are alleviated by nothing. the symptoms are aggravated by nothing. weak, sob, abd pain. Historical: - Allergies: 01:23 Latex, Natural Rubber; ad5 01:23 Levofloxacin; ad5 01:23 Naproxen Sodium; ad5 01:23 PENICILLINS; ad5 - PMHx: 01:23 Chronic pain; Fibromyalgia; ad5 - Immunization history:: Adult Immunizations up to date. - Social history:: Smoking status: unknown. - Family history:: not pertinent. ROS: 01:54 Constitutional: Negative for fever, chills, and weight loss, Eyes: Negative for injury, jessie pain, redness, and discharge, ENT: Negative for injury, pain, and discharge, Neck: Negative for injury, pain, and swelling, Cardiovascular: Negative for chest pain, palpitations, and edema, Back: Negative for injury and pain, : Negative for injury, bleeding, discharge, and swelling, MS/Extremity: Negative for injury and deformity, Skin: Negative for injury, rash, and discoloration, Psych: Negative for depression, anxiety, suicide ideation, homicidal ideation, and hallucinations, Allergy/Immunology: Negative for hives, rash, and allergies, Endocrine: Negative for neck swelling, polydipsia, polyuria, polyphagia, and marked weight changes. 01:54 Respiratory: Positive for cough, with no reported sputum. 01:54 Abdomen/GI: Positive for abdominal pain, nausea, abdominal cramps, abdominal distension, of the right upper quadrant, left upper quadrant, right lower quadrant and left lower quadrant. 01:54 MS/extremity: Positive for tenderness, of the right leg and left leg. Exam: 01:54 Constitutional: This is a well developed, well nourished patient who is awake, alert, jessie and in no acute distress. Head/Face: Normocephalic, atraumatic. Eyes: Pupils equal round and reactive to light, extra-ocular motions intact. Lids and lashes normal. Conjunctiva and sclera are non-icteric and not injected. Cornea within normal limits. Periorbital areas with no swelling, redness, or edema. ENT: Nares patent. No nasal discharge, no septal abnormalities noted. Tympanic membranes are normal and external auditory canals are clear. Oropharynx with no redness, swelling, or masses, exudates, or evidence of obstruction, uvula midline. Mucous membranes moist. Neck: Trachea midline, no thyromegaly or masses palpated, and no cervical lymphadenopathy. Supple, full range of motion without nuchal rigidity, or vertebral point tenderness. No Meningismus. Chest/axilla: Normal chest wall appearance and motion. Nontender with no deformity. No lesions are appreciated. Cardiovascular: Regular rate and rhythm with a normal S1 and S2. No gallops, murmurs, or rubs. Normal PMI, no JVD. No pulse deficits. Back: No spinal tenderness. No costovertebral tenderness. Full range of motion. Female : Normal external genitalia. Skin: Warm, dry with normal turgor. Normal color with no rashes, no lesions, and no evidence of cellulitis. MS/ Extremity: Pulses equal, no cyanosis. Neurovascular intact. Full, normal range of motion. Neuro: Awake and alert, GCS 15, oriented to person, place, time, and situation. Cranial nerves II-XII grossly intact. Motor strength 5/5 in all extremities. Sensory grossly intact. Cerebellar exam normal. Normal gait. Psych: Awake, alert, with orientation to person, place and time. Behavior, mood, and affect are within normal limits. 01:54 Respiratory: mild respiratory distress is noted, Respirations: labored breathing, that is mild, Breath sounds: bronchial sounds, decreased breath sounds, rhonchi, wheezing: expiratory 02:01 ECG was reviewed by the Attending Physician. jessie Vital Signs: 01:18 BP 165 / 94; Pulse 96; Resp 20; Temp 98.6; Pulse Ox 95% on 4 lpm NC; Weight 108.86 kg; ad5 Height 5 ft. 4 in. (162.56 cm); Pain 6/10; 02:43 BP 154 / 102; Pulse 90; Resp 20 S; Pulse Ox 95% on 4 lpm NC; ad5 03:15 BP 172 / 100; Pulse 92; Resp 21 S; Pulse Ox 95% on 4 lpm NC; ad5 03:30 BP 169 / 97; Pulse 89; Resp 20 S; Pulse Ox 97% on 30% BiPAP; ad5 04:30 BP 172 / 80; Pulse 89; Resp 19; Pulse Ox 96% on 30% BiPAP; ad5 05:30 BP 135 / 94; Pulse 89; Resp 21 S; Pulse Ox 94% on 30% BiPAP; ad5 07:56 BP 144 / 91; Pulse 86; Resp 17 S; Pulse Ox 94% on BiPAP; jd3 01:18 Body Mass Index 41.20 (108.86 kg, 162.56 cm) ad5 MDM: 01:23 Patient medically screened. jessie 01:58 Differential diagnosis: Anemia asthma, Bronchitis CHF exacerbation, Chronic Obstructive jessie Pulmonary Disease bronchitis, flu, URI, pneumonia, pulmonary edema, reactive airway disease, Sepsis Unstable Angina. Antibiotic administration: MERREM. Differential Diagnosis sepsis. The patient's Wells Deep Vein Thrombosis Score was calculated as follows: Total Score: 0-2 Pts- Low Risk. The patient's pulmonary embolism risk score was calculated as follows: Total Score: 0-2 points. This patient was found to be at low risk for a pulmonary embolism by using the Well's assessment criteria. Immunization status: Influenza vaccine: Data reviewed: vital signs, nurses notes, lab test result(s), EKG, radiologic studies, CT scan, plain films. Data interpreted: non acoustic operator: rate is 96 beats/min, rhythm is regular, Pulse oximetry: on room air is 90 %. Test interpretation: by ED physician or midlevel provider: ECG, plain radiologic studies. Counseling: I had a detailed discussion with the patient and/or guardian regarding: the historical points, exam findings, and any diagnostic results supporting the discharge/admit diagnosis, the presence of at least one elevated blood pressure reading (>120/80) during this emergency department visit, lab results, radiology results, the need for further work-up and treatment in the hospital. 12/29 01:27 Order name: Basic Metabolic Panel [facility] 12/29 01:27 Order name: CBC with Diff [facility] 12/29 01:27 Order name: LFT's [facility] 12/29 01:27 Order name: Magnesium [facility] 12/29 01:27 Order name: NT PRO-BNP [facility] 12/29 01:27 Order name: PT-INR [facility] 12/29 01:27 Order name: Troponin (emerg Dept Use Only) [facility] 12/29 01:27 Order name: Lipase [facility] 12/29 01:27 Order name: Blood Culture Adult (2) [facility] 12/29 01:27 Order name: Flu [facility] 12/29 01:27 Order name: COVID-19 : Document "Date of Symptom Onset" if Symptomatic. [facility] 12/29 01:27 Order name: Urine Culture [facility] 12/29 01:27 Order name: Lactate [facility] 12/29 01:53 Order name: Acetaminophen [facility] 12/29 01:53 Order name: ETOH Level [facility] 12/29 01:53 Order name: Ptt, Activated [facility] 12/29 01:53 Order name: Salicylate [facility] 12/29 01:53 Order name: Urine Drug Screen [facility] 12/29 01:53 Order name: ABG [facility] 12/29 01:53 Order name: [facility] 12/29 01:54 Order name: Influenza Screen (A [facility] 12/29 02:10 Order name: Protime (+INR); Complete Time: 03:31 [facility] 12/29 02:11 Order name: CBC with Automated Diff; Complete Time: 03:54 [facility] 12/29 02:22 Order name: Basic Metabolic Panel; Complete Time: 03:31 [facility] 12/29 02:22 Order name: Liver (Hepatic) Function; Complete Time: 03:31 [facility] 12/29 02:22 Order name: Troponin (Emerg Dept Use Only); Complete Time: 03:31 [facility] 12/29 02:22 Order name: NT PRO-BNP; Complete Time: 03:31 [facility] 12/29 02:22 Order name: Magnesium; Complete Time: 03:31 [facility] 12/29 02:22 Order name: Lipase; Complete Time: 03:31 [facility] 12/29 02:23 Order name: Lactate; Complete Time: 03:31 [facility] 12/29 01:27 Order name: XRAY Chest (1 view) [facility] 12/29 01:27 Order name: EKG; Complete Time: 01:28 [facility] 12/29 01:27 Order name: Cardiac monitoring; Complete Time: 01:30 [facility] 12/29 01:27 Order name: EKG - Nurse/Tech; Complete Time: 01:30 [facility] 12/29 01:27 Order name: IV Saline Lock; Complete Time: 01:30 [facility] 12/29 01:27 Order name: Labs collected and sent; Complete Time: 01:30 [facility] 12/29 01:53 Order name: CT Head Brain wo Cont; Complete Time: 03:31 [facility] 12/29 01:53 Order name: CT Chest Abdomen Pelvis W/O Contrast: no iv no oral; Complete Time: 03:31 [facility] 12/29 03:15 Order name: COVID-19/FLU A+B; Complete Time: 03:31 [facility] 12/29 03:18 Order name: Alcohol Serum/Plasma; Complete Time: 03:31 [facility] 12/29 03:18 Order name: Acetaminophen Level; Complete Time: 03:31 [facility] 12/29 03:30 Order name: PTT, Activated Partial Thromb; Complete Time: 03:31 [facility] 12/29 03:33 Order name: BIPAP; Complete Time: 03:46 [facility] 12/29 03:49 Order name: ABG Arterial Blood Gas; Complete Time: 03:54 [facility] 12/29 03:50 Order name: CBC Smear Scan; Complete Time: 03:54 [facility] 12/29 05:21 Order name: Urine Dipstick-Ancillary [facility] 12/29 05:45 Order name: Urine Drug Screen [facility] 12/29 08:20 Order name: D-Dimer [facility] 12/29 08:42 Order name: RAD [facility] 12/29 09:04 Order name: Glucose, Ancillary Testing [facility] 12/29 09:05 Order name: Salicylates Level [facility] 12/29 09:06 Order name: Alcohol Serum/Plasma [facility] 12/29 09:26 Order name: CT [facility] 12/29 10:07 Order name: ABG Arterial Blood Gas [facility] 12/29 12:07 Order name: Glucose, Ancillary Testing [facility] 12/29 01:27 Order name: O2 Per Protocol; Complete Time: 01:30 [facility] 12/29 01:27 Order name: O2 Sat Monitoring; Complete Time: 01:30 [facility] 12/29 01:27 Order name: Urine Dipstick-Ancillary (obtain specimen); Complete Time: 05:11 [facility] 12/29 01:53 Order name: Suicide Screening ([place]); Complete Time: 02:37 [facility] 12/29 01:53 Order name: Paul[place]; Complete Time: 05:11 [facility] 12/29 03:33 Order name: IV Saline Lock - Large Bore; Complete Time: 03:45 [facility] EC:01 Rate is 100 beats/min. Rhythm is regular. QRS Evans is Normal. DC interval is normal. [facility] QRS interval is normal. QT interval is normal. No Q waves. T waves are Normal. No ST changes noted. Clinical impression: Normal ECG, NSR w/ Non-specific ST/T Changes, and No evidence of ischemia. Interpreted by me. Reviewed by me. Administered Medications: 01:50 Drug: NS 0.9% 500 ml Route: IV; Rate: bolus; Site: right antecubital; ad5 02:05 Drug: SOLU-Medrol (methylPrednisoLONE) 125 mg Route: IVP; Site: right antecubital; ad5 02:36 Follow up: Response: No adverse reaction ad5 02:06 Drug: Meropenem 1 grams Route: IV; Rate: per protocol; Site: right antecubital; ad5 02:36 Follow up: IV Status: Completed infusion ad5 02:41 Drug: NS 0.9% 1000 ml Route: IV; Rate: 125 ml/hr; Site: right antecubital; ad5 04:20 Drug: Zithromax (azithromycin) 500 mg Route: IVPB; Infused Over: 1 hrs; Site: right ad5 antecubital; 07:00 Follow up: Response: No adverse reaction; IV Status: Completed infusion jd3 04:30 Drug: Lasix (furosemide) 20 mg Route: IVP; Site: right antecubital; ad5 07:00 Follow up: Response: No adverse reaction jd3 05:14 Drug: Zofran (Ondansetron) 4 mg Route: IVP; Site: right antecubital; ad5 06:37 Follow up: Response: No adverse reaction; Nausea is decreased ad5 Disposition: 12/29/20 03:53 Hospitalization ordered by Genesis Browning for Inpatient Admission. Preliminary diagnosis are Chronic obstructive pulmonary disease with (acute) exacerbation, Cardiomegaly, Unspecified combined systolic (congestive) and diastolic (congestive) heart failure, Abdominal tenderness - VENTRAL HERNIAS, Acute respiratory failure with hypercapnia, Hypoxemia, Pneumonia, unspecified organism - LEFT LOWER LOBE. - Bed requested for Telemetry/MedSurg (Inpatient). - Status is Inpatient Admission. tw2 - Condition is Fair. - Problem is new. - Symptoms have improved. Signatures: Dispatcher [employer] [facility] Maribel Crisostomo RN RN Rei Medellin MD MD cha Garcia, Cindy, RN RN cg Nany Palmer RN RN tw2 Brad Ventura Jonathon RN jd3 Corrections: (The following items were deleted from the chart) 03:58 03:53 Hospitalization Ordered by Genesis Browning MD for Inpatient Admission. Preliminary jessie diagnosis is Chronic obstructive pulmonary disease with (acute) exacerbation; Cardiomegaly; Unspecified combined systolic (congestive) and diastolic (congestive) heart failure; Abdominal tenderness - VENTRAL HERNIAS; Acute respiratory failure with hypercapnia; Hypoxemia. Bed requested for Telemetry/MedSurg (Inpatient). Status is Inpatient Admission. Condition is Fair. Problem is new. Symptoms have improved. [facility] 06:05 03:58 12/29/2020 03:53 Hospitalization Ordered by Genesis Browning MD for Inpatient cg Admission. Preliminary diagnosis is Chronic obstructive pulmonary disease with (acute) exacerbation; Cardiomegaly; Unspecified combined systolic (congestive) and diastolic (congestive) heart failure; Abdominal tenderness - VENTRAL HERNIAS; Acute respiratory failure with hypercapnia; Hypoxemia; Pneumonia, unspecified organism - LEFT LOWER LOBE. Bed requested for Telemetry/MedSurg (Inpatient). Status is Inpatient Admission. Condition is Fair. Problem is new. Symptoms have improved. [facility] 12:41 06:05 12/29/2020 03:53 Hospitalization Ordered by Genesis Browning MD for Inpatient Admission. Preliminary diagnosis is Chronic obstructive pulmonary disease with (acute) exacerbation; Cardiomegaly; Unspecified combined systolic (congestive) and diastolic (congestive) heart failure; Abdominal tenderness - VENTRAL HERNIAS; Acute respiratory failure with hypercapnia; Hypoxemia; Pneumonia, unspecified organism - LEFT LOWER LOBE. Bed requested for [email or web address] ER HOLD. Status is Inpatient Admission. Condition is Fair. Problem is new. Symptoms have improved. 14:55 12:41 12/29/2020 03:53 Hospitalization Ordered by Genesis Browning MD for Inpatient tw2 Admission. Preliminary diagnosis is Chronic obstructive pulmonary disease with (acute) exacerbation; Cardiomegaly; Unspecified combined systolic (congestive) and diastolic (congestive) heart failure; Abdominal tenderness - VENTRAL HERNIAS; Acute respiratory failure with hypercapnia; Hypoxemia; Pneumonia, unspecified organism - LEFT LOWER LOBE. Bed requested for Telemetry/MedSurg (Inpatient). Status is Inpatient Admission. Condition is Fair. Problem is new. Symptoms have improved. dw
--- NOTE | 2020-12-29 03:54 | ER ---
Nurse's Notes [facility] Name: Madelaine Leonard Age: 60 yrs Sex: Female : 1960 Arrival Date: 12/29/2020 Time: 01:04 Bed 6 Private MD: Diagnosis: Chronic obstructive pulmonary disease with (acute) exacerbation;Cardiomegaly;Unspecified combined systolic (congestive) and diastolic (congestive) heart failure;Abdominal tenderness-VENTRAL HERNIAS;Acute respiratory failure with hypercapnia;Hypoxemia;Pneumonia, unspecified organism-LEFT LOWER LOBE Presentation: 12/29 01:18 Chief complaint: Patient states: Pt BIB EMS from home for c/o generalized abd pain x 3 ad5 days with nausea and diarrhea. EMS reports pt O2 sat on RA 78%, up to 96% on 4L O2 via NC. Pt denies home O2 use, O2 sat upon arrival to ED on RA 88%. Pt continued on 4L O2 via NC, resp with ease. Cough noted during triage, pt reports "about a week" with green sputum production. Appears pale. Coronavirus screen: Client denies travel out of the [place] in the last 14 days. Client presents with at least one sign or symptom that may indicate coronavirus-19. Ebola Screen: Patient negative for fever greater than or equal to 101.5 degrees Fahrenheit, and additional compatible Ebola Virus Disease symptoms Patient denies exposure to infectious person. Patient denies travel to an Ebola-affected area in the 21 days before illness onset. No symptoms or risks identified at this time. Initial Sepsis Screen: Does the patient meet any 2 criteria? No. Patient's initial sepsis screen is negative. Does the patient have a suspected source of infection? No. Patient's initial sepsis screen is negative. Risk Assessment: Do you want to hurt yourself or someone else? Patient reports no desire to harm self or others. Onset of symptoms was December 26, 2020. 01:18 Method Of Arrival: EMS ad5 01:18 Acuity: DEV 3 ad5 Historical: - Allergies: 01:23 Latex, Natural Rubber; ad5 01:23 Levofloxacin; ad5 01:23 Naproxen Sodium; ad5 01:23 PENICILLINS; ad5 - PMHx: 01:23 Chronic pain; Fibromyalgia; ad5 - Immunization history:: Adult Immunizations up to date. - Social history:: Smoking status: unknown. - Family history:: not pertinent. Screenin:29 Abuse screen: Denies threats or abuse. Denies injuries from another. Nutritional ad5 screening: No deficits noted. Tuberculosis screening: No symptoms or risk factors identified. Fall Risk Fall in past 12 months (25 points). Secondary diagnosis (15 points) IV access (20 points). Ambulatory Aid- Crutches/Cane/Walker (15 pts). Gait- Weak (10 pts.). Mental Status- Oriented to own ability (0 pts). Total Poole Fall Scale indicates High Risk Score (45 or more points). Fall prevention measures have been instituted. Side Rails Up X 2 Frequent Obs/Assessments Occuring. Assessment: 01:24 General: Appears distressed, uncomfortable, Behavior is calm, cooperative, appropriate ad5 for age. Pain: Complains of pain in abdomen Pain currently is 6 out of 10 on a pain scale. Neuro: Level of Consciousness is awake, alert, obeys commands, Oriented to person, place, time, situation, Appropriate for age Deboning Team Leader are equal bilaterally Moves all extremities. Speech is normal, Facial symmetry appears normal, Pupils are PERRLA, Intact. Cardiovascular: Heart tones present Capillary refill < 3 seconds JVD is absent Patient's skin is warm and dry. Pulses are all present. Rhythm is regular. Respiratory: Reports cough that is productive, Airway is patent Respiratory effort is even, unlabored, Respiratory pattern is regular, symmetrical, pt on O2 4L via NC for low O2 sat noted on RA captain/airline pilot by EMS and upon arrival to ED by this RN. Resp even/unlabored Breath sounds are diminished bilaterally. GI: Abdomen is round Bowel sounds present X 4 quads. Abd is soft X 4 quads Abdomen is tender to palpation Reports lower abdominal pain, upper abdominal pain, bloating, cramping, diarrhea, nausea. : No deficits noted. EENT: No deficits noted. Derm: Skin is intact, Skin is dry, Skin is pale. Musculoskeletal: No deficits noted. 02:41 Reassessment: Patient appears in no apparent distress at this time. No changes from ad5 previously documented assessment. Patient and/or family updated on plan of care and expected duration. Pain level reassessed. Patient states feeling better. 03:30 Reassessment: No changes from previously documented assessment. Patient and/or family ad5 updated on plan of care and expected duration. Pain level reassessed. Patient is alert, oriented x 3, equal unlabored respirations, skin warm/dry/pink. Pt placed on bipap at this time, RT at bedside. Pt tolerating well. 04:41 Reassessment: 16F fitzgerald placed at this time per MD orders, pt tolerated well. 400cc ad5 urine noted to bag, dark yellow/clear. Bag to gravity, securement device in place to R thigh. 05:14 Reassessment: Pt reports nausea at this time. Provider aware, 4mg IVP zofran ad5 administered per VORAudra. Pt reports improvement in s/s shortly afterward administration. VSS. Will continue to monitor. 05:45 Reassessment: Patient appears in no apparent distress at this time. No changes from ad5 previously documented assessment. Patient and/or family updated on plan of care and expected duration. Pain level reassessed. Pt moved from ED stretcher to hospital bed, repositioned for comfort. Bed remains low and locked, bedrails up, call light within reach. 07:54 General: Appears in no apparent distress. comfortable, Behavior is calm, cooperative, jd3 appropriate for age. Pain: Complains of pain in abdomen Quality of pain is described as aching. Neuro: Level of Consciousness is awake, alert, obeys commands, Oriented to person, place, time, situation. Cardiovascular: Capillary refill < 3 seconds Patient's skin is warm and dry. Respiratory: Airway is patent Respiratory effort is even, unlabored, Respiratory pattern is regular, symmetrical, pt on BIPAP, appears to have comfortable respirations with no signs of distress or shortness of breath at this time. awaiting admission. 08:50 Reassessment: Patient and/or family updated on plan of care and expected duration. Pain jd3 level reassessed. Patient is alert, oriented x 3, equal unlabored respirations, skin warm/dry/pink. [facility]. Vital Signs: 01:18 BP 165 / 94; Pulse 96; Resp 20; Temp 98.6; Pulse Ox 95% on 4 lpm NC; Weight 108.86 kg; ad5 Height 5 ft. 4 in. (162.56 cm); Pain 6/10; 02:43 BP 154 / 102; Pulse 90; Resp 20 S; Pulse Ox 95% on 4 lpm NC; ad5 03:15 BP 172 / 100; Pulse 92; Resp 21 S; Pulse Ox 95% on 4 lpm NC; ad5 03:30 BP 169 / 97; Pulse 89; Resp 20 S; Pulse Ox 97% on 30% BiPAP; ad5 04:30 BP 172 / 80; Pulse 89; Resp 19; Pulse Ox 96% on 30% BiPAP; ad5 05:30 BP 135 / 94; Pulse 89; Resp 21 S; Pulse Ox 94% on 30% BiPAP; ad5 07:56 BP 144 / 91; Pulse 86; Resp 17 S; Pulse Ox 94% on BiPAP; jd3 01:18 Body Mass Index 41.20 (108.86 kg, 162.56 cm) ad5 ED Course: 01:04 Patient arrived in ED. mw2 01:18 Brad Ventura is Primary Nurse. ad5 01:22 Triage completed. ad5 01:23 Rei Medellin MD is Attending Physician. jessie 01:29 Patient has correct armband on for positive identification. Placed in gown. Bed in low ad5 position. Call light in reach. Side rails up X2. child monitor on. Pulse ox on. NIBP on. Warm blanket given. 01:29 No provider procedures requiring assistance completed. Inserted saline lock: 20 gauge ad5 in right antecubital area, using aseptic technique. 02:37 CT Chest Abdomen Pelvis W/O Contrast: no iv no oral Sent. ad5 02:37 CT Head Brain wo Cont Sent. ad5 03:45 BIPAP Sent. ad5 03:48 Genesis Browning MD is Hospitalizing Provider. jessie 04:41 Fitzgerald cath inserted, using sterile technique, 16 Fr., by ia, balloon inflated, to ad5 gravity drainage. 06:36 Patient admitted, IV remains in place. ad5 07:54 Arm band placed on. jd3 Administered Medications: 01:50 Drug: NS 0.9% 500 ml Route: IV; Rate: bolus; Site: right antecubital; ad5 02:05 Drug: SOLU-Medrol (methylPrednisoLONE) 125 mg Route: IVP; Site: right antecubital; ad5 02:36 Follow up: Response: No adverse reaction ad5 02:06 Drug: Meropenem 1 grams Route: IV; Rate: per protocol; Site: right antecubital; ad5 02:36 Follow up: IV Status: Completed infusion ad5 02:41 Drug: NS 0.9% 1000 ml Route: IV; Rate: 125 ml/hr; Site: right antecubital; ad5 04:20 Drug: Zithromax (azithromycin) 500 mg Route: IVPB; Infused Over: 1 hrs; Site: right ad5 antecubital; 07:00 Follow up: Response: No adverse reaction; IV Status: Completed infusion jd3 04:30 Drug: Lasix (furosemide) 20 mg Route: IVP; Site: right antecubital; ad5 07:00 Follow up: Response: No adverse reaction jd3 05:14 Drug: Zofran (Ondansetron) 4 mg Route: IVP; Site: right antecubital; ad5 06:37 Follow up: Response: No adverse reaction; Nausea is decreased ad5 Outcome: 03:53 Decision to Hospitalize by Provider. jessie 06:36 Admitted to ER Hold. Please see [facility] for further documentation. ad5 06:36 Condition: stable 06:36 Instructed on the need for admit, Demonstrated understanding of instructions. 14:55 Patient left the ED. tw2 Signatures: Rei Medellin MD MD cha Wise, Tara RN RN tw2 Kirby José RN RN jSlime Baltazar 2 Brad Ventura ad5 Corrections: (The following items were deleted from the chart) 04:41 03:43 General: ad5 ad5
[2020-12-29] MEDS ORDERED: FUROSEMIDE 20 MG/ 2ML VIAL ONE (04:27)
[2020-12-29] MEDS ORDERED: AZITHROMYCIN 500 MG INJ IVPB ONE (04:27)
[2020-12-29] MEDS ORDERED: NA CHLORIDE 0.9% 250 ML ONE (04:28)
[2020-12-29] MEDS ORDERED: MORPHINE 2 MG/ML SYR ONE (04:46)
[2020-12-29] MEDS ORDERED: ONDANSETRON 4 MG/2 ML VIAL ONE (05:14)
[2020-12-29 05:21] LABS: Urine Blood Negative (Negative); Urine Glucose Negative (Negative); Urine Protein 3+ (Negative); Urine Specific Gravity 1.025 (1.005-1.030)
[2020-12-29 05:45] LABS: Barbiturates NEGATIVE (NEGATIVE); Benzodiazepines NEGATIVE (NEGATIVE); Cocaine NEGATIVE (NEGATIVE); METHAMPHETAM NEGATIVE (NEGATIVE); Methadone NEGATIVE (NEGATIVE); Opiates NEGATIVE (NEGATIVE); Phencyclidine NEGATIVE (NEGATIVE); THC Cannibis NEGATIVE (NEGATIVE)
--- NOTE | 2020-12-29 06:00 | P.HP ---
Certification for Inpatient Patient admitted to: Inpatient With expected LOS: >2 Midnights Practitioner: I am a practitioner with admitting privileges, knowledge of patient current condition, hospital course, and medical plan of care. Services: Services provided to patient in accordance with Admission requirements found in Title 42 Section 412.3 of the Code of Federal Regulations Patient History Date of Service: 12/29/20 Reason for admission: COPD exacerbation, respiratory failure History of Present Illness: Ms. Leonard is a 60 yo F with COPD and CHF here today with a week of increased weakness, night sweats, SOB, and cough productive of yellow/green sputum. She denies wheezing and hemoptysis. She reports some improved with her inhalers. She says she has not had symptoms like this in several years. She smokes 1/2 ppd. Glu 148. BNP 5160. Allergies Latex, Natural Rubber Allergy (Verified 09/22/14 15:47) Hives/Rash levofloxacin [From Levaquin] Allergy (Verified 09/22/14 15:37) Itching Penicillins Allergy (Verified 09/22/14 15:37) Hives naproxen sodium [From Aleve] Adverse Reaction (Verified 09/22/14 15:37) Nausea/Vomiting Home Medications: Gabapentin [Neurontin*] 800 mg PO QID 09/22/14 Hydrocodone 10/APAP 325 [[place] 10/325] 1 tab PO TID PRN 09/22/14 Albuterol Sulfate [Proair Hfa] 2 puff IH Q6H PRN 04/26/18 Metaxalone 800 mg PO Q6H 04/26/18 ondansetron HCL [Zofran] 8 mg PO DAILY 04/26/18 Morphine *Extended Release* [MS Contin*] 45 mg PO BID 10/03/18 - Past Medical/Surgical History Diabetic: No -: chronic pain -: COPD -: HTN -: CHF, cardiomegaly -: R upper lobectomy -: multiple hernia surgeries -: multiple abdominal surgeries - Family History Father -: Heart disease, Hypertension Notes: Mother -: Heart disease, Lung disease, Cancer Notes: Brother -: Heart disease, Hypertension, Lung disease Notes: - Social History Smoking Status: Current every day smoker Smoking therapy provided: Yes Patient receptive to therapy: No Alcohol use: Yes CD- Drugs: Yes Caffeine use: No Place of Residence: Home Review of Systems General: Sweats, Weakness, Malaise, As per HPI Eyes: Unremarkable ENT: Unremarkable Respiratory: Cough, Shortness of Breath, SOB with Excertion, Sputum, Wheezing, As per HPI Cardiovascular: Unremarkable Gastrointestinal: Unremarkable Genitourinary: Unremarkable Musculoskeletal: Unremarkable Integumentary: Unremarkable Neurological: Unremarkable Lymphatics: Unremarkable Physical Examination - Physical Exam General: Alert, Oriented x3 HEENT: Atraumatic, Normocephalic, PERRLA, Mucous membr. moist/pink, EOMI, Sclerae nonicteric Neck: Supple, 2+ carotid pulse no bruit, JVD not distended, No Thyromegaly, No LAD Respiratory: Diminished, Rhonchi/gurgles Cardiovascular: No edema, Normal pulses, Regular rate/rhythm, Normal S1 S2, No gallops, No rubs Capillary refill: <2 Seconds Gastrointestinal: Normal bowel sounds, Soft and benign, Non-distended, No ascites, No tenderness, No masses, No rebound, No guarding Musculoskeletal: No clubbing, No swelling, No contractures, No erythema, No tenderness, No warmth Integumentary: No rashes, No breakdown, No significant lesion, No tenderness/swelling, No erythema, No warmth, No cyanosis Neurological: Normal speech, Normal strength at 5/5 x4 extr, Normal tone, Sensation intact, Cranial nerves 3-12 intact, Normal affect Lymphatics: No axilla or inguinal lymphadenopathy - Studies Laboratory Data (last 24 hrs) 12/29/20 01:53: APTT Cancelled 12/29/20 01:37: PT 13.4 H, INR 1.16, APTT 27.8 12/29/20 01:37: WBC 7.90, Hgb 12.8, Hct 41.2, Plt Count 360 12/29/20 01:37: Sodium 135 L, Potassium 3.9, BUN 17, Creatinine 0.63, Glucose 148 H, Magnesium 1.8, Total Bilirubin 0.6, AST 11 L, ALT 11 L, Alkaline Phosphatase 90, Lipase 37 L Assessment and Plan - Problems (Diagnosis) (1) COPD (chronic obstructive pulmonary disease) Current Visit: Yes Status: Acute Qualifiers: COPD type: unspecified COPD Qualified Code(s): J44.9 - Chronic obstructive pulmonary disease, unspecified (2) CHF (congestive heart failure) Current Visit: Yes Status: Acute Qualifiers: Heart failure type: unspecified Heart failure chronicity: unspecified Qualified Code(s): I50.9 - Heart failure, unspecified (3) Acute respiratory failure Current Visit: Yes Status: Acute Qualifiers: Respiratory failure complication: hypoxia Qualified Code(s): J96.01 - Acute respiratory failure with hypoxia - Plan pulm consulted continue IV antibiotics, steroids and breathing treatments continue with BiPAP D dimer pending joslyn garcia PRN obtain and continue home medications Discharge Plan: Home Plan to discharge in: 72 Hours - Advance Directives Does patient have a Living Will: No Does patient have a Durable POA for Healthcare: No - Code Status/Comfort Care Code Status Assessed: Yes (full code) Critical Care: No Time Spent Managing Pts Care (In Minutes): 70
[2020-12-29] MEDS: INSULIN -REGULAR HUMAN 50 UNIT/0.5 ML ML SQ SCH ×4 (07:30→21:00)
--- NOTE | 2020-12-29 08:33 | P.CNS ---
Date of Consult: 12/29/20 Reason for Consult: Respiratory failure Chief Complaint: COPD exacerbation, respiratory failure History of Present Illness: Patient is 60 years of age with a history of COPD CHF presented with increasing shortness of breath, weakness productive cough admitted with respiratory failure currently is unresponsive on a BiPAP continues to smoke heavily Allergies Latex, Natural Rubber Allergy (Verified 09/22/14 15:47) Hives/Rash levofloxacin [From Levaquin] Allergy (Verified 09/22/14 15:37) Itching Penicillins Allergy (Verified 09/22/14 15:37) Hives naproxen sodium [From Aleve] Adverse Reaction (Verified 09/22/14 15:37) Nausea/Vomiting Home Medications: Gabapentin [Neurontin*] 800 mg PO QID 09/22/14 Hydrocodone 10/APAP 325 [[place] 10/325] 1 tab PO TID PRN 09/22/14 Albuterol Sulfate [Proair Hfa] 2 puff IH Q6H PRN 04/26/18 Metaxalone 800 mg PO Q6H 04/26/18 ondansetron HCL [Zofran] 8 mg PO DAILY 04/26/18 Morphine *Extended Release* [MS Contin*] 45 mg PO BID 10/03/18 - Past Medical/Surgical History Diabetic: No -: chronic pain -: COPD -: HTN -: CHF, cardiomegaly -: Fibro myalgia -: R upper lobectomy -: multiple hernia surgeries -: multiple abdominal surgeries - Family History Father Medical History: Heart disease, Hypertension Notes: Mother Medical History: Heart disease, Lung disease, Cancer Notes: Brother Medical History: Heart disease, Hypertension, Lung disease Notes: - Social History Smoking Status: Current every day smoker Alcohol use: Yes CD- Drugs: Yes Caffeine use: No Place of Residence: Home Review of Systems is unable to be obtained Physical Examination General: Unresponsive Respiratory: Clear to auscultation bilaterally, Normal air movement Cardiovascular: No edema, Regular rate/rhythm, Normal S1 S2 Gastrointestinal: Normal bowel sounds, Soft and benign Laboratory Data (last 24 hrs) 12/29/20 01:53: APTT Cancelled 12/29/20 01:37: PT 13.4 H, INR 1.16, APTT 27.8 12/29/20 01:37: WBC 7.90, Hgb 12.8, Hct 41.2, Plt Count 360 12/29/20 01:37: Sodium 135 L, Potassium 3.9, BUN 17, Creatinine 0.63, Glucose 148 H, Magnesium 1.8, Total Bilirubin 0.6, AST 11 L, ALT 11 L, Alkaline Phosphatase 90, Lipase 37 L - Problems (1) Respiratory failure Current Visit: Yes Status: Acute Plan: Patient is 60 years of age admitted with respiratory failure unspecified is hypercapnic elevated BNP most likely from cor pulmonale nonspecific changes on a CT scan no evidence of pneumonia hypoxic hypercapnic patient has chronic pain meds listed on her home medication list had been sick for about 3 days complaining of abdominal pain nausea diarrhea admitted with significant hypoxemia D-dimer is elevated Dc Zithromax chest x-rays clear CT pulmonary angiogram echocardiogram Qualifiers: Respiratory failure complication: hypoxia and hypercapnia
--- NOTE | 2020-12-29 08:41 | RAD REPORT ---
EXAM DESCRIPTION: RAD - Chest Single View - 12/29/2020 2:12 am CLINICAL HISTORY: COUGH, shortness of breath COMPARISON: August 2019 TECHNIQUE: AP portable chest image was obtained 12/29/2020 2:12 am . FINDINGS: Lung volumes are low accentuating a prominent baseline interstitial pattern. No peripheral mass or consolidation. Cardiac silhouette is enlarged with mild vascular engorgement. This is in par t due to shallow inspiration portable technique and body habitus. No measurable pleural effusion and no pneumothorax. No acute bony abnormality seen. No acute aortic findings suspected. IMPRESSION: No acute lung parenchymal finding identified. Borderline cardiomegaly and borderline vascular engorgement. No significant failure or volume overloa d.
--- NOTE | 2020-12-29 08:42 | EKG ---
Test Date: 2020-12-29 Test Time: 01:05: [employer]: JUANITO MEASUREMENT RESULTS: Intervals: Rate: 100 SC: 154 QRSD: 92 QT: 354 QTc: 456 [place]: P: 74 SC: 154 QRS: 42 T: 68 INTERPRETIVE STATEMENTS: Normal sinus rhythm Normal ECG Compared to ECG 09/07/2019 17:32:51 Sinus tachycardia no longer present ST (T wave) deviation no longer present Electronically Signed On 12-29-20 08:41:12 CDT by Tato Mendez
--- NOTE | 2020-12-29 09:24 | RAD REPORT ---
EXAM DESCRIPTION: CT - Chest For Pe Angio - 12/29/2020 9:04 am CLINICAL HISTORY: Rule out PE, chest pain, abdominal pain, decreased O2 saturation COMPARISON: Chest Abd Pelvis Wo Con dated 12/29/2020; THORAX W CONTRAST dated 10/08/2008; Chest Single View dated 12/29/2020 TECHNIQUE: Dynamically enhanced 3 mm thick images of the chest were obtained during administration o f approximately 150mL Isovue 370 IV contrast. Coronal and oblique MIP reconstruction images were gene rated and reviewed. Exam utilizes a protocol to evaluate the pulmonary arterial tree. All CT scans are performed using dose optimization technique as appropriate and may include automated exposure control or mA/KV adjustment according to patient size. FINDINGS: No pulmonary emboli are identified. Pulmonary arteries do appear somewhat enlarged for the patient's age and correlation is needed with any findings suspicious for pulmonary artery hypertensi on. The aorta as imaged shows no acute or suspicious finding. No pericardial thickening or effusion. The ventricular myocardium appears thickened but difficult to accurately assess on CT imaging. Interstitial and alveolar opacification seen in the posteromedial mid left lung field on the earlier noncontrast study has mostly cleared. This may have been an area of atelectasis. In this region of th e lung field (image 70/139) there is an ill-defined 6 mm area of nodularity that could be a lung nodu le or is more likely summation of vasculature. Minimal interstitial stranding seen in each posterior lower lung field interstitial pattern overall is mildly prominent. No pleural effusion or pleural thi ckening. No mediastinal or hilar suspicious masses. No chest wall masses or abnormal axillary lymphadenopathy. IMPRESSION: No pulmonary emboli identified. Pulmonary arteries appear enlarged and correlation can be made with any history or exam findings for pulmonary artery hypertension. Small 6 mm pulmonary nodule in the medial mid left lung field. Follow-up CT imaging in 6-12 months wo uld be recommended. Atelectasis changes are present. Interstitial markings are mildly prominent but could be a mild edema or infiltrate. Focally more prominent opacification in the posteromedial left mid lung field on the earlier noncontr ast study has mostly resolved and was probably atelectasis. Questionable thickening of the left ventricular myocardium. CT assessment is limited.
[2020-12-29] MEDS: METHYLPREDNISOLONE 125 MG INJ IV SCH ×2 (09:30→17:15)
[2020-12-29] MEDS: ENOXAPARIN 40 MG/0.4 ML SQ SCH (09:30)
[2020-12-29] MEDS: IPRATROPIUM BROM 0.5MG/2.5ML NEB SCH ×3 (09:34→19:35)
[2020-12-29] MEDS: ALBUTEROL 2.5 MG/3 ML NEB SOL NEB SCH ×3 (09:34→19:35)
[2020-12-29] MEDS ORDERED: IPRATROPIUM BROM 0.5MG/2.5ML ONE ×2 (09:47→13:30)
[2020-12-29] MEDS ORDERED: ALBUTEROL 2.5 MG/3 ML NEB SOL ONE ×2 (09:47→13:30)
[2020-12-29] MEDS ORDERED: ENOXAPARIN 40 MG/0.4 ML SQ ONE (09:48)
[2020-12-29] MEDS ORDERED: METHYLPREDNISOLONE 40 MG INJ ONE (09:48)
[2020-12-29 10:06] LABS: Arterial Blood Carboxyhemoglob 5.2 % (0-1.5); Blood Gas Oxyhemoglobin 83.9 % (94-97); Blood O2 Saturation 89.4 % (92-98.5)
--- NOTE | 2020-12-29 12:39 | ECHO ---
HEIGHT: 5 ft 4 in WEIGHT: 239 lb 15.923 oz DATE OF STUDY: 12/29/[address]: Kyaw Feldman MD 2-DIMENSIONAL: YES M.MODE: YES DOPPLER: YES COLOR FLOW: YES TDS: YES PORTABLE: NO DEFINITY: NO BUBBLE STUDY: NO DIAGNOSIS: RESPIRATORY FAILURE CARDIAC HISTORY: CATHERIZATION: NO SURGERY: NO PROSTHETIC VALVE: NO PACEMAKER: NO MEASUREMENTS (cm) DIASTOLIC (NORMALS) SYSTOLIC (NORMALS) IVSd 1.0 (0.6-1.2) LA Diam 3.0 (1.9-4.0) LVEF 77% LVIDd 4.5 (3.5-5.7) LVIDs 2.4 (2.0-3.5) %FS 46% LVPWd 1.1 (0.6-1.2) Ao Diam 3.0 (2.0-3.7) 2 DIMENSIONAL ASSESSMENT: RIGHT ATRIUM: NORMAL LEFT ATRIUM: NORMAL RIGHT VENTRICLE: NORMAL LEFT VENTRICLE: NORMAL TRICUSPID VALVE: NORMAL MITRAL VALVE: NORMAL PULMONIC VALVE: NORMAL AORTIC VALVE: NORMAL PERICARDIAL EFFUSION: NONE AORTIC ROOT: NORMAL LEFT VENTRICULAR WALL MOTION: NORMAL. DOPPLER/COLOR FLOW: MILD TRICUSPID REGURGITATION. COMMENTS: NORMAL LEFT VENTRICULAR SIZE AND FUNCTION. MILD TRICUSPID REGURGITATION - NORMAL RIGHT VENTRICULAR SYSTOLIC PRESSURE. NO WALL MOTION ABNORMALITY. NO EFFUSION. TECHNOLOGIST: HORACIO MARKS
--- NOTE | 2020-12-29 16:58 | RAD REPORT ---
EXAM DESCRIPTION: CT - Chest Abd Pelvis Wo Con - 12/29/2020 7:10 am CLINICAL HISTORY: The patient is 60 years old and is Female; Cough;Abdominal distention;Congestion TECHNIQUE: Axial computed tomography images of the chest, abdomen and pelvis without intravenous con trast. Sagittal and coronal reformatted images were created and reviewed. This CT exam was perfor med using one or more of the following dose reduction techniques: automated exposure control, adjus tment of the mA and/or kV according to patient size, and/or use of iterative reconstruction technique . COMPARISON: No relevant prior studies available. FINDINGS: CHEST: Lungs: Scattered groundglass opacities in the left lower lobe. Pleural space: Unremarkable. No significant effusion. No pneumothorax. Heart: Unremarkable. No cardiomegaly. No significant pericardial effusion. ABDOMEN: Liver: Unremarkable. Gallbladder and bile ducts: The gallbladder is distended. No calcified stones. No ductal dilation. Pancreas: Unremarkable. No ductal dilation. Spleen: Splenic calcifications suggestive of old granulomatous disease. Adrenals: Unremarkable. No mass. Kidneys and ureters: 1.7 cm cyst in the left kidney. There are a couple small low-density lesions in the left kidney which are too small to fully characterize but likely represent cysts. ACR [place] guidelines (Herts, et al. JACR 2018; 15(2):264-273) suggest no follow-up is necessary. Malrotated right kidney. No obstructing stones. Bilateral perinephric stranding which may be chronic. Stomach and bowel: Small 2 cm bowel containing ventral hernia. No evidence of obstruction. Scattered colonic diverticula without evidence of diverticulitis. Suggestion of postsurgical material in the bowel in the lower abdomen. PELVIS: Appendix: No findings to suggest acute appendicitis. Bladder: Unremarkable. No stones. Reproductive: The uterus is not seen. CHEST, ABDOMEN and PELVIS: Intraperitoneal space: Unremarkable. No significant fluid collection. No free air. Bones/joints: Unremarkable. No acute fracture. No dislocation. Soft tissues: Clips in the subcutaneous soft tissues of the anterior abdominal wall with adjacent fat stranding which may be related to prior ventral hernia repair. Clips in the inguinal region bilaterally which may be related to prior hernia repair. Subcutaneous soft tissue stranding along the right hip. Vasculature: Unremarkable. No aortic aneurysm. Lymph nodes: Unremarkable. No enlarged lymph nodes. IMPRESSION: 1. Scattered groundglass opacities in the left lower lobe. Findings are nonspecific but can be seen with infectious and inflammatory etiologies. 2. Small 2 cm bowel containing ventral hernia. No evidence of obstruction. 3. Clips in the subcutaneous soft tissues of the anterior abdominal wall with adjacent fat strandin g which may be related to prior ventral hernia repair. 4. Scattered colonic diverticula without evidence of diverticulitis. Electronically signed by: Ji Salinas MD 12/29/2020 3:41 AM CDT Due to temporary technical issues with the PACS/Fluency reporting system, reports are being signed by the in house radiologists without review as a courtesy to insure prompt reporting. The interpreting radiologist is fully responsible for the content of the report.
--- NOTE | 2020-12-29 16:59 | RAD REPORT ---
EXAM DESCRIPTION: CT - Head Brain Wo Cont - 12/29/2020 7:11 am CLINICAL HISTORY: The patient is 60 years old and is Female; HEADACHE TECHNIQUE: Axial computed tomography images of the head/brain without intravenous contrast. Sagitt al and coronal reformatted images were created and reviewed. This CT exam was performed using one o r more of the following dose reduction techniques: automated exposure control, adjustment of the mA and/or kV according to patient size, and/or use of iterative reconstruction technique. COMPARISON: CT head 09/07/2019. FINDINGS: Brain: There is a stable extra-axial lesion in the left anterior posterior cranial fossa abutting the petrous bone which measures up to 15 mm in the craniocaudal dimension and may represent a meningioma. There is hypodensity involving the white matter of the right cerebellar hemisphere which may be artifact. No hemorrhage. Ventricles: Unremarkable. No ventriculomegaly. Bones/joints: Unremarkable. No acute fracture. Soft tissues: Unremarkable. Sinuses: Retention cyst or polyp in the right maxillary sinus. Mastoid air cells: Unremarkable as visualized. No mastoid effusion. IMPRESSION: 1. There is a stable extra-axial lesion in the left anterior posterior cranial fossa a butting the petrous bone which measures up to 15 mm in the craniocaudal dimension and may represent a meningioma. 2. There is hypodensity involving the white matter of the right cerebellar hemisphere which may be artifact. Consider repeat/follow-up head CT for further evaluation if clinically indicated. Electronically signed by: Ji Salinas MD 12/29/2020 3:17 AM CDT Due to temporary technical issues with the PACS/Fluency reporting system, reports are being signed by the in house radiologists without review as a courtesy to insure prompt reporting. The interpreting radiologist is fully responsible for the content of the report.
--- NOTE | 2020-12-29 17:03 | P.PN ---
Date of Service: 12/29/20 Patient seen and examined. She reports some improvement in her breathing. She still requiring about 3-4 L of oxygen. Plan: COPD exacerbation. Acute respiratory failure with hypoxia and hypercapnia. Echocardiogram reviewed and unremarkable. CTA thorax: No PE. Pulmonary nodule and atelectasis. Continue treatment for COPD exacerbation-bronchodilators, IV steroid. Pulmonary input appreciated.
[2020-12-29] MEDS: ACETAMINOPHEN 500 MG TAB PO PRN (17:15)
[2020-12-30] MEDS: IPRATROPIUM BROM 0.5MG/2.5ML NEB SCH ×4 (01:40→20:00)
[2020-12-30] MEDS: ALBUTEROL 2.5 MG/3 ML NEB SOL NEB SCH ×4 (01:40→20:00)
[2020-12-30] MEDS: METHYLPREDNISOLONE 125 MG INJ IV SCH ×3 (01:51→17:03)
[2020-12-30 06:42] LABS: Absolute Lymphocytes (CBC) 0.6 K/uL (0.7-4.9); Basophils % 0.3 % (0-1.3); Hematocrit 35.6 % (36.0-45.0); Lymphocytes % 14.4 % (15.3-44.8); MPV 7.4 fL (7.6-11.3); RBC Red Blood Cell Count 4.86 M/uL (3.86-4.86)
[2020-12-30 07:10] LABS: ALT/SGPT 10 U/L (12-78); AST/SGOT 12 U/L (15-37); Albumin 3.1 g/dL (3.4-5.0); Alkaline Phosphatase 68 U/L (45-117); BUN Blood Urea Nitrogen 23 mg/dL (7-18); Bicarbonate 35 mmol/L (21-32); Bilirubin Total 0.4 mg/dL (0.2-1.0); Glucose Level 139 mg/dL (74-106); HDL Cholesterol 47 mg/dL (40-60); LDL Cholesterol, Calculated 62 (<130); Magnesium 1.9 mg/dL (1.8-2.4); Potassium 4.2 mmol/L (3.5-5.1); Protein, Total 6.7 g/dL (6.4-8.2); Sodium Level 138 mmol/L (136-145)
[2020-12-30] MEDS: INSULIN -REGULAR HUMAN 50 UNIT/0.5 ML ML SQ SCH ×4 (07:30→21:00)
[2020-12-30] MEDS: ENOXAPARIN 40 MG/0.4 ML SQ SCH (08:55)
[2020-12-30] MEDS: BENZONATATE 100 MG CAP PO PRN (08:55)
[2020-12-30] MEDS: GABAPENTIN 400 MG CAP PO SCH ×3 (08:57→20:50)
[2020-12-30] MEDS ORDERED: AZITHROMYCIN IV 500 MG in NA CHLORIDE 0.9% 250 ML IVPB SCH (09:00)
[2020-12-30] MEDS ORDERED: HYDRALAZINE HCL 20 MG/ML VIAL IV ONE (12:17)
[2020-12-30] MEDS ORDERED: GABAPENTIN 400 MG CAP PO SCH (14:00)
--- NOTE | 2020-12-30 16:07 | P.PN ---
Subjective Date of Service: 12/30/20 Chief Complaint: COPD exacerbation, respiratory failure Patient states she feels better. She is awake today. She is tolerating oxygen by nasal cannula. Physical Examination - Vital Signs Temperature: 97.1 F Blood Pressure: 183/81 Pulse: 82 Respirations: 20 Pulse Ox (%): 97 - Physical Exam General: Alert, In no apparent distress, Oriented x3 HEENT: Mucous membr. moist/pink Neck: Supple, JVD not distended Respiratory: Clear to auscultation bilaterally, Diminished Cardiovascular: No edema, Regular rate/rhythm, Normal S1 S2 Gastrointestinal: Normal bowel sounds, Soft and benign, Non-distended, No tenderness Musculoskeletal: No swelling, No tenderness Integumentary: No rashes Neurological: Normal strength at 5/5 x4 extr Assessment And Plan - Current Problems (Diagnosis) (1) Respiratory failure with hypoxia and hypercapnia Current Visit: Yes Status: Acute (2) Obesity hypoventilation syndrome Current Visit: Yes Status: Acute (3) COPD exacerbation Current Visit: Yes Status: Acute (4) Chronic diastolic (congestive) heart failure Current Visit: Yes Status: Acute (5) Chronic pain syndrome Current Visit: No Status: Acute (6) Accelerated hypertension Current Visit: Yes Status: Acute - Plan Continue IV steroid. Scheduled bronchodilators. BiPAP p.r.n. Pulmonary input appreciated. Home oxygen evaluation. Continue other home medications for chronic pain. Start amlodipine for hypertension. Hydralazine p.r.n. for BP spikes.
[2020-12-30] MEDS: AMLODIPINE 10 MG TAB PO SCH (17:03)
[2020-12-30] MEDS: ACETAMINOPHEN 500 MG TAB PO PRN (20:50)
[2020-12-30] MEDS: ATORVASTATIN 40 MG TAB PO SCH (20:58)
[2020-12-30] MEDS: ZOLPIDEM TARTRATE 5 MG TABLET PO PRN (22:46)
[2020-12-31] MEDS: METHYLPREDNISOLONE 125 MG INJ IV SCH ×2 (02:09→09:45)
[2020-12-31] MEDS: ALBUTEROL 2.5 MG/3 ML NEB SOL NEB SCH ×4 (02:30→20:30)
[2020-12-31] MEDS: IPRATROPIUM BROM 0.5MG/2.5ML NEB SCH ×4 (02:30→20:30)
[2020-12-31 06:17] LABS: Absolute Lymphocytes (CBC) 0.8 K/uL (0.7-4.9); Basophils % 0.5 % (0-1.3); Hematocrit 36.9 % (36.0-45.0); Lymphocytes % 13.3 % (15.3-44.8); MPV 7.7 fL (7.6-11.3); RBC Red Blood Cell Count 4.99 M/uL (3.86-4.86)
[2020-12-31] MEDS: INSULIN -REGULAR HUMAN 50 UNIT/0.5 ML ML SQ SCH ×4 (07:30→21:00)
[2020-12-31 08:07] LABS: BUN Blood Urea Nitrogen 14 mg/dL (7-18); Bicarbonate 36 mmol/L (21-32); Glucose Level 151 mg/dL (74-106); Potassium 3.8 mmol/L (3.5-5.1); Sodium Level 140 mmol/L (136-145)
[2020-12-31] MEDS: ENOXAPARIN 40 MG/0.4 ML SQ SCH (09:00)
[2020-12-31] MEDS: BENZONATATE 100 MG CAP PO PRN ×2 (09:43→20:22)
[2020-12-31] MEDS: VENLAFAXINE HCL 37.5 MG TAB PO SCH (09:44)
[2020-12-31] MEDS: GABAPENTIN 400 MG CAP PO SCH ×3 (09:46→20:14)
[2020-12-31] MEDS: AMLODIPINE 10 MG TAB PO SCH (09:47)
[2020-12-31 10:03] LABS: Anisocytosis 3+; Blood Morphology Comment NOTED (NOT SEEN); Hypochromasia 1+; Platelet Estimate ADEQ; Poikilocytosis 1+
[2020-12-31] MEDS: ONDANSETRON 4 MG/2 ML VIAL IV PRN ×2 (10:11→21:06)
[2020-12-31 10:24] VITALS: BMI 41.0
--- NOTE | 2020-12-31 10:40 | P.PN ---
Subjective Date of Service: 12/31/20 Chief Complaint: COPD exacerbation, respiratory failure Subjective: Improving (Patient is doing much better little apprehensive) Review of Systems General: Weakness Respiratory: Shortness of Breath Physical Examination - Vital Signs Temperature: 97.1 F Blood Pressure: 155/72 Pulse: 84 Respirations: 20 Pulse Ox (%): 100 - Physical Exam General: Alert, Oriented x3, Mild distress Respiratory: Clear to auscultation bilaterally, Diminished Assessment & Plan - Problems (Diagnosis) (1) Respiratory failure Current Visit: Yes Status: Acute Plan: Patient admitted with respiratory failure is doing better plan to discharge on prednisone 10 mg twice a day for 10 days of fax in a prescription for trilogy she will also benefit from a nebulizer Qualifiers: Respiratory failure complication: hypoxia and hypercapnia (2) Sleep apnea Current Visit: Yes Status: Acute Plan: Possible sleep apnea planes of loud snoring excessive daytime somnolence possible outpatient sleep study of also or ordered a thyroid function tests
[2020-12-31] MEDS ORDERED: PROMETHAZINE INJ 25 MG/ML AMP IM ONE ×2 (12:30→21:37)
--- NOTE | 2020-12-31 15:54 | RAD REPORT ---
EXAM DESCRIPTION: CT - Abdomen Pelvis W Contrast - 12/31/2020 2:43 pm CLINICAL HISTORY: pain in abdomen COMPARISON: Abdomen Pelvis W Contrast dated 10/03/2018 TECHNIQUE: Biphasic, helical CT imaging of the abdomen and pelvis was performed following 100 ml non -ionic IV contrast. No oral contrast administered. All CT scans are performed using dose optimization technique as appropriate and may include automated exposure control or mA/KV adjustment according to patient size. FINDINGS: Minimal posterior gutter atelectasis with no pleural effusions. No cardiomegaly or pericar dial effusion. The liver, spleen, and pancreas show no suspicious findings. Gallbladder wall appears slightly thicke armani and edematous. Gallstones can be occult. No biliary tree dilatation. Symmetric renal function is seen with no hydronephrosis or suspicious renal mass. No pyelonephritis o r acute parenchymal process. Bladder is fully contracted around a Paulson catheter. No adrenal abnormal ities. No dilated bowel loops or bowel wall thickening. No free air, free fluid or inflammatory stranding. No mass or bulky lymphadenopathy. No omental thickening. Small defects are seen in the anterior abdo sunny wall several small hernias. In the right periumbilical region there is a small focal abdominal wall defect. One wall of a loop of small bowel extends through the hernia defect. There is no overall wall thickening or edema. No suspicious bony findings. Mild degenerative changes are present. Surgical clips are present from p rior inguinal hernia repair. IMPRESSION: [place] of the partially contracted gallbladder appear slightly thickened and edematous. G allstones can be occult. Correlation is needed with any clinical findings that may suggest acute chol ecystitis. Biliary tree is unremarkable. No acute GI process seen. There are several small hernia defects in the abdominal wall including 1 sm all periumbilical defect in which one wall of a small bowel loop extends through the hernia. The par tially herniated small bowel loops shows no wall thickening or edema.
--- NOTE | 2020-12-31 16:33 | P.PN ---
Subjective Date of Service: 12/31/20 Chief Complaint: COPD exacerbation, respiratory failure Patient reports pain and swelling in the right jaw area. She also report abdominal fullness and pain. She states her breathing is better. She is tolerating oxygen by nasal cannula. Physical Examination - Vital Signs Temperature: 98.7 F Blood Pressure: 159/78 Pulse: 100 Respirations: 22 Pulse Ox (%): 92 - Physical Exam General: Alert, In no apparent distress, Oriented x3 HEENT: Mucous membr. moist/pink, Other (Right parotid area is swollen and tender) Neck: JVD not distended Respiratory: Normal air movement, Other (Mild scattered wheezes) Cardiovascular: Normal S1 S2, No murmurs, Other (Tachycardia, regular rhythm) Gastrointestinal: Normal bowel sounds, Soft and benign, Non-distended, No t enderness Musculoskeletal: No swelling, No tenderness Integumentary: No rashes, No erythema Neurological: Normal strength at 5/5 x4 extr Assessment And Plan - Current Problems (Diagnosis) (1) Respiratory failure with hypoxia and hypercapnia Current Visit: Yes Status: Acute (2) Obesity hypoventilation syndrome Current Visit: Yes Status: Acute (3) COPD exacerbation Current Visit: Yes Status: Acute (4) Chronic diastolic (congestive) heart failure Current Visit: Yes Status: Acute (5) Chronic pain syndrome Current Visit: No Status: Acute (6) Accelerated hypertension Current Visit: Yes Status: Acute (7) Abdominal pain Current Visit: Yes Status: Acute (8) Acute parotitis Current Visit: Yes Status: Acute - Plan Patient transition to oral prednisone Scheduled bronchodilators. CT abdomen and pelvis: Unremarkable except contracted gallbladder. Patient has multiple small anterior abdominal hernias with no incarceration or strangulation. Arranged for home oxygen Continue other home medications for chronic pain. Start antibiotics for acute parotitis. Will obtain CT with IV contrast to evaluate. Need to rule out abscess or Salivary duct obstruction Continue amlodipine for hypertension. Hydralazine p.r.n. for BP spikes.
[2020-12-31] MEDS: CEFTRIAXONE/SWI 1gm 1 GM/10 ML SYR IVP SCH (17:50)
[2020-12-31] MEDS: CLINDAMYCIN INJ 600 MG in NA CHLORIDE 0.9% 50 ML IV SCH (17:50)
[2020-12-31] MEDS ORDERED: HYDROCODONE/APAP 5/325 MG TAB PO ONE (19:45)
[2020-12-31] MEDS: predniSONE 20 MG TAB PO SCH (20:13)
[2020-12-31] MEDS: ATORVASTATIN 40 MG TAB PO SCH (20:14)
[2020-12-31] MEDS: ZOLPIDEM TARTRATE 5 MG TABLET PO PRN (22:24)
[2021-01-01] MEDS: CLINDAMYCIN INJ 600 MG in NA CHLORIDE 0.9% 50 ML IV SCH ×4 (00:43→18:05)
[2021-01-01] MEDS: HYDRALAZINE HCL 20 MG/ML VIAL IV PRN (01:29)
[2021-01-01] MEDS: ALBUTEROL 2.5 MG/3 ML NEB SOL NEB SCH ×4 (02:30→20:50)
[2021-01-01] MEDS: IPRATROPIUM BROM 0.5MG/2.5ML NEB SCH ×4 (02:30→20:50)
[2021-01-01 06:34] LABS: BUN Blood Urea Nitrogen 9 mg/dL (7-18); Bicarbonate 39 mmol/L (21-32); Glucose Level 138 mg/dL (74-106); Potassium 3.9 mmol/L (3.5-5.1); Sodium Level 141 mmol/L (136-145)
[2021-01-01 06:53] LABS: Absolute Lymphocytes (CBC) 0.9 K/uL (0.7-4.9); Basophils % 0.1 % (0-1.3); Hematocrit 36.7 % (36.0-45.0); Lymphocytes % 17.9 % (15.3-44.8); MPV 7.1 fL (7.6-11.3); RBC Red Blood Cell Count 5.02 M/uL (3.86-4.86)
[2021-01-01] MEDS: INSULIN -REGULAR HUMAN 50 UNIT/0.5 ML ML SQ SCH ×4 (07:30→20:56)
[2021-01-01] MEDS: GABAPENTIN 400 MG CAP PO SCH ×3 (09:00→20:53)
[2021-01-01] MEDS: ENOXAPARIN 40 MG/0.4 ML SQ SCH (09:00)
[2021-01-01] MEDS: VENLAFAXINE HCL 37.5 MG TAB PO SCH (09:07)
[2021-01-01] MEDS: CEFTRIAXONE/SWI 1gm 1 GM/10 ML SYR IVP SCH (10:07)
[2021-01-01] MEDS: MORPHINE 4 MG/ML SYR IV PRN ×4 (10:07→22:27)
[2021-01-01] MEDS: AMLODIPINE 10 MG TAB PO SCH (10:08)
[2021-01-01] MEDS: predniSONE 20 MG TAB PO SCH ×2 (10:08→20:53)
[2021-01-01] MEDS: BENZONATATE 100 MG CAP PO PRN ×2 (10:08→20:53)
--- NOTE | 2021-01-01 11:48 | RAD REPORT ---
EXAM DESCRIPTION: CT - Soft Tissue Neck W/Contr CLINICAL HISTORY: Acute parotitis Right-sided facial pain COMPARISON: No comparisons TECHNIQUE All CT scans are performed using dose optimization technique as appropriate and may includ e automated exposure control or mA/KV adjustment according to patient size. FINDINGS: Nasopharyngeal tissues are normal in appearance. Fossa Rosenmller are normal. Parapharyngeal fat triangles are symmetric. Tongue base structures are normal. Epiglottis and aryepiglottic folds are normal. Piriform sinuses are well aerated. The vocal cords are normal in appearance. Normal thyroid gland size. The right parotid gland is moderately enlarged with surrounding inflammation present compatible with parotitis. No abscess seen. Upper lung garcia are clear. Included intracranial contents are unremarkable. IMPRESSION: Enlargement and inflammation of the right parotid gland is seen compatible with parotiti s. No abscess evident.
--- NOTE | 2021-01-01 12:34 | P.PN ---
Subjective Date of Service: 01/01/21 Chief Complaint: COPD exacerbation, respiratory failure Patient reports pain and swelling in the right jaw area. She denies shortness of breath. She is doing well on 2 L oxygen by nasal cannula. Physical Examination - Vital Signs Temperature: 97.2 F Blood Pressure: 179/90 Pulse: 89 Respirations: 18 Pulse Ox (%): 100 - Physical Exam General: In no apparent distress, Oriented x3 HEENT: Mucous membr. moist/pink, Other (Right parotid swelling) Neck: JVD not distended Respiratory: Clear to auscultation bilaterally, Normal air movement Cardiovascular: No edema, Regular rate/rhythm, Normal S1 S2 Gastrointestinal: Normal bowel sounds, Soft and benign, Non-distended, No tenderness Musculoskeletal: No swelling Integumentary: No rashes, No erythema Neurological: Normal strength at 5/5 x4 extr - Studies Microbiology Data (last 24 hrs): 12/29/20 05:17 Clean Catch Urine [place] Count - Final No growth. 12/29/20 05:17 Clean Catch Urine - Final No growth. Assessment And Plan - Current Problems (Diagnosis) (1) Respiratory failure with hypoxia and hypercapnia Current Visit: Yes Status: Acute (2) Obesity hypoventilation syndrome Current Visit: Yes Status: Acute (3) COPD exacerbation Current Visit: Yes Status: Acute (4) Chronic diastolic (congestive) heart failure Current Visit: Yes Status: Acute (5) Chronic pain syndrome Current Visit: No Status: Acute (6) Accelerated hypertension Current Visit: Yes Status: Acute (7) Abdominal pain Current Visit: Yes Status: Acute (8) Acute parotitis Current Visit: Yes Status: Acute - Plan Continue oral prednisone Scheduled bronchodilators. CT abdomen and pelvis: Unremarkable except contracted gallbladder. Patient has multiple small anterior abdominal hernias with no incarceration or strangulation. Social service Arranging for home oxygen Continue other home medications for chronic pain. Clindamycin and Rocephin for acute parotitis. CT soft tissue: Right acute parotitis, no abscess or fluid collection. Continue amlodipine for hypertension. Hydralazine p.r.n. for BP spikes.
[2021-01-01] MEDS: ONDANSETRON 4 MG/2 ML VIAL IV PRN (12:50)
[2021-01-01 14:28] LABS: Urine Appearance CLEAR (Clear); Urine Bilirubin NEGATIVE (Negataive); Urine Blood 2+ (Negative); Urine Color YELLOW (Yellow); Urine Glucose NEGATIVE (Negative); Urine Protein NEGATIVE (Negative); Urine Specific Gravity >=1.030 (1.005-1.030); Urine Urobilinogen 0.2 mg/dL (0.2-1.0)
[2021-01-01 14:51] LABS: Urine Microscopic Reflex ORDER UMIC
[2021-01-01 15:21] LABS: Urine Bacteria <20 /HPF (<20); Urine RBC 20-50 /HPF (NONE SEEN)
[2021-01-01] MEDS: ATORVASTATIN 40 MG TAB PO SCH (20:53)
[2021-01-01] MEDS: ZOLPIDEM TARTRATE 5 MG TABLET PO PRN (22:28)
[2021-01-02] MEDS ORDERED: GUAIFENESIN/DM 5 ML UCUP PO ONE (00:14)
[2021-01-02] MEDS: CLINDAMYCIN INJ 600 MG in NA CHLORIDE 0.9% 50 ML IV SCH ×4 (00:21→19:06)
[2021-01-02] MEDS: MORPHINE 4 MG/ML SYR IV PRN ×3 (02:14→12:43)
[2021-01-02] MEDS: IPRATROPIUM BROM 0.5MG/2.5ML NEB SCH ×4 (02:20→20:25)
[2021-01-02] MEDS: ALBUTEROL 2.5 MG/3 ML NEB SOL NEB SCH ×4 (02:20→20:25)
[2021-01-02] MEDS: INSULIN -REGULAR HUMAN 50 UNIT/0.5 ML ML SQ SCH ×4 (07:30→20:33)
[2021-01-02] MEDS: ENOXAPARIN 40 MG/0.4 ML SQ SCH (09:00)
[2021-01-02] MEDS: predniSONE 20 MG TAB PO SCH ×2 (09:02→20:25)
[2021-01-02] MEDS: GABAPENTIN 400 MG CAP PO SCH ×3 (09:02→20:25)
[2021-01-02] MEDS: VENLAFAXINE HCL 37.5 MG TAB PO SCH (09:02)
[2021-01-02] MEDS: AMLODIPINE 10 MG TAB PO SCH (09:02)
[2021-01-02] MEDS: CEFTRIAXONE/SWI 1gm 1 GM/10 ML SYR IVP SCH (09:02)
[2021-01-02] MEDS: ONDANSETRON 4 MG/2 ML VIAL IV PRN ×2 (09:16→20:30)
[2021-01-02] MEDS: BENZONATATE 100 MG CAP PO PRN ×2 (09:17→20:23)
--- NOTE | 2021-01-02 12:46 | P.PN ---
Subjective Date of Service: 01/02/21 Chief Complaint: COPD exacerbation, respiratory failure Patient patient states the pain in her right jaw area is better. She is reporting generalized weakness. She denies shortness of breath. She is stable on 2 L oxygen by nasal cannula. Physical Examination - Vital Signs Temperature: 97.8 F Blood Pressure: 136/78 Pulse: 99 Respirations: 20 Pulse Ox (%): 98 - Physical Exam General: Alert, In no apparent distress Neck: JVD not distended, Other (Right parotid swelling) Respiratory: Clear to auscultation bilaterally, Normal air movement Cardiovascular: No edema, Regular rate/rhythm, Normal S1 S2 Gastrointestinal: Normal bowel sounds, Soft and benign, Non-distended, No tenderness Integumentary: No rashes, No erythema Neurological: Normal strength at 5/5 x4 extr - Studies Microbiology Data (last 24 hrs): 12/29/20 05:17 Clean Catch Urine [place] Count - Final No growth. 12/29/20 05:17 Clean Catch Urine - Final No growth. Assessment And Plan - Current Problems (Diagnosis) (1) Respiratory failure with hypoxia and hypercapnia Current Visit: Yes Status: Acute (2) Obesity hypoventilation syndrome Current Visit: Yes Status: Acute (3) COPD exacerbation Current Visit: Yes Status: Acute (4) Chronic diastolic (congestive) heart failure Current Visit: Yes Status: Acute (5) Chronic pain syndrome Current Visit: No Status: Acute (6) Accelerated hypertension Current Visit: Yes Status: Acute (7) Abdominal pain Current Visit: Yes Status: Acute (8) Acute parotitis Current Visit: Yes Status: Acute - Plan Continue oral prednisone Scheduled bronchodilators. CT abdomen and pelvis: Unremarkable except contracted gallbladder. Patient has multiple small anterior abdominal hernias with no incarceration or strangulation. Home oxygen arranged. Continue other home medications for chronic pain. Clindamycin and Rocephin for acute parotitis. CT soft tissue: Right acute parotitis, no abscess or fluid collection. Continue amlodipine for hypertension. Hydralazine p.r.n. for BP spikes. Patient states she is generally weak and has a lot of stairs to climb at home. PT to re-evaluate.
[2021-01-02] MEDS: HYDROCODONE/APAP 5/325 MG TAB PO PRN (20:23)
[2021-01-02] MEDS: ATORVASTATIN 40 MG TAB PO SCH (20:25)
[2021-01-02] MEDS: ZOLPIDEM TARTRATE 5 MG TABLET PO PRN (22:46)
[2021-01-03] MEDS: IPRATROPIUM BROM 0.5MG/2.5ML NEB SCH ×4 (02:45→19:40)
[2021-01-03] MEDS: ALBUTEROL 2.5 MG/3 ML NEB SOL NEB SCH ×4 (02:45→19:40)
[2021-01-03] MEDS: CLINDAMYCIN INJ 600 MG in NA CHLORIDE 0.9% 50 ML IV SCH ×4 (05:16→12:34)
[2021-01-03] MEDS: HYDRALAZINE HCL 20 MG/ML VIAL IV PRN (06:43)
[2021-01-03] MEDS: INSULIN -REGULAR HUMAN 50 UNIT/0.5 ML ML SQ SCH ×4 (07:30→21:00)
[2021-01-03 08:29] LABS: BUN Blood Urea Nitrogen 11 mg/dL (7-18); Bicarbonate 37 mmol/L (21-32); Glucose Level 123 mg/dL (74-106); Magnesium 2.1 mg/dL (1.8-2.4); Phosphorus 3.5 mg/dL (2.5-4.9); Potassium 4.8 mmol/L (3.5-5.1); Sodium Level 138 mmol/L (136-145)
[2021-01-03] MEDS: ENOXAPARIN 40 MG/0.4 ML SQ SCH (09:00)
[2021-01-03] MEDS: VENLAFAXINE HCL 37.5 MG TAB PO SCH (09:33)
[2021-01-03] MEDS: ONDANSETRON 4 MG/2 ML VIAL IV PRN ×2 (09:33→21:55)
[2021-01-03] MEDS: CEFTRIAXONE/SWI 1gm 1 GM/10 ML SYR IVP SCH (09:34)
[2021-01-03] MEDS: GABAPENTIN 400 MG CAP PO SCH ×3 (09:35→21:56)
[2021-01-03] MEDS: AMLODIPINE 10 MG TAB PO SCH (09:35)
[2021-01-03] MEDS: HYDROCODONE/APAP 5/325 MG TAB PO PRN ×3 (09:36→22:05)
[2021-01-03] MEDS: predniSONE 20 MG TAB PO SCH ×2 (09:36→21:56)
[2021-01-03] MEDS: BENZONATATE 100 MG CAP PO PRN ×2 (09:40→22:05)
--- NOTE | 2021-01-03 20:01 | P.PN ---
Subjective Date of Service: 01/03/21 Chief Complaint: COPD exacerbation, respiratory failure Patient complaining of generalized weakness She denies shortness of breath. She is stable on 2 L oxygen by nasal cannula. Physical Examination - Vital Signs Temperature: 98.7 F Blood Pressure: 159/86 Pulse: 91 Respirations: 20 Pulse Ox (%): 97 - Physical Exam General: Alert, In no apparent distress, Oriented x3 HEENT: Mucous membr. moist/pink, Other (Right jaw swelling is much better.) Neck: JVD not distended Respiratory: Clear to auscultation bilaterally, Normal air movement Cardiovascular: No edema, Regular rate/rhythm, Abnormal S3 Gastrointestinal: Normal bowel sounds, Soft and benign, Non-distended, No tenderness Musculoskeletal: No swelling Integumentary: No rashes Neurological: Normal speech, Normal strength at 5/5 x4 extr - Studies Microbiology Data (last 24 hrs): 12/29/20 01:37 Blood - Blood Aerobic Blood Culture - Final No growth in 5 days. 12/29/20 01:37 Blood - Blood Anaerobic Blood Culture - Final 12/29/20 01:37 Blood - Blood Gram Stain - Final 12/29/20 01:00 Blood - Blood Aerobic Blood Culture - Final No growth in 5 days. 12/29/20 01:00 Blood - Blood Anaerobic Blood Culture - Final No growth in 5 days. Assessment And Plan - Current Problems (Diagnosis) (1) Respiratory failure with hypoxia and hypercapnia Current Visit: Yes Status: Acute (2) Obesity hypoventilation syndrome Current Visit: Yes Status: Acute (3) COPD exacerbation Current Visit: Yes Status: Acute (4) Chronic diastolic (congestive) heart failure Current Visit: Yes Status: Acute (5) Chronic pain syndrome Current Visit: No Status: Acute (6) Accelerated hypertension Current Visit: Yes Status: Acute (7) Abdominal pain Current Visit: Yes Status: Acute (8) Acute parotitis Current Visit: Yes Status: Acute - Plan Continue oral prednisone Continue Scheduled bronchodilators. CT abdomen and pelvis: Unremarkable except contracted gallbladder. Patient has multiple small anterior abdominal hernias with no incarceration or strangulation. Home oxygen arranged. Continue other home medications for chronic pain. Switch antibiotics Augmentin for acute parotitis. CT soft tissue: Right acute parotitis, no abscess or fluid collection. Continue amlodipine for hypertension. Hydralazine p.r.n. for BP spikes. Patient states she is generally weak and has a lot of stairs to climb at home. Patient with decreased mobility and concern about doing well at home alone. Social service to arrange for skilled rehab placement.
[2021-01-03] MEDS: AMOX/K CLAV 875 MG TAB PO SCH (21:55)
[2021-01-03] MEDS: ATORVASTATIN 40 MG TAB PO SCH (21:56)
[2021-01-03] MEDS: ZOLPIDEM TARTRATE 5 MG TABLET PO PRN (22:05)
[2021-01-04] MEDS: IPRATROPIUM BROM 0.5MG/2.5ML NEB SCH ×4 (01:40→19:40)
[2021-01-04] MEDS: ALBUTEROL 2.5 MG/3 ML NEB SOL NEB SCH ×4 (01:40→19:40)
[2021-01-04] MEDS: INSULIN -REGULAR HUMAN 50 UNIT/0.5 ML ML SQ SCH ×4 (07:30→21:20)
[2021-01-04] MEDS: HYDROCODONE/APAP 5/325 MG TAB PO PRN ×2 (08:58→21:19)
[2021-01-04] MEDS: AMOX/K CLAV 875 MG TAB PO SCH ×2 (08:59→21:18)
[2021-01-04] MEDS: AMLODIPINE 10 MG TAB PO SCH (08:59)
[2021-01-04] MEDS: predniSONE 20 MG TAB PO SCH ×2 (08:59→21:19)
[2021-01-04] MEDS: ENOXAPARIN 40 MG/0.4 ML SQ SCH (08:59)
[2021-01-04] MEDS: VENLAFAXINE HCL 37.5 MG TAB PO SCH (09:00)
[2021-01-04] MEDS: GABAPENTIN 400 MG CAP PO SCH ×3 (09:00→21:19)
[2021-01-04] MEDS: ONDANSETRON 4 MG/2 ML VIAL IV PRN ×2 (09:03→21:22)
--- NOTE | 2021-01-04 10:31 | P.PN ---
Subjective Date of Service: 01/04/21 Chief Complaint: COPD exacerbation, respiratory failure Subjective: Improving (slowly improving, R jaw less swollen / tender. still with some SOB/MCCLAIN, and ongoing epigastric discomfort. Still feels very weak, does not feel safe to go home) Review of Systems 10-point ROS is otherwise unremarkable Physical Examination - Vital Signs Temperature: 97.1 F Blood Pressure: 149/71 Pulse: 83 Respirations: 20 Pulse Ox (%): 98 - Studies Microbiology Data (last 24 hrs): 12/29/20 01:37 Blood - Blood Aerobic Blood Culture - Final No growth in 5 days. 12/29/20 01:37 Blood - Blood Anaerobic Blood Culture - Final 12/29/20 01:37 Blood - Blood Gram Stain - Final Assessment & Plan Physician Review Additional Text: Physical Exam General: Alert, In no apparent distress, Oriented x3 HEENT: Mucous membr. moist/pink, mild R jaw swelling, nontender Neck: JVD not distended Respiratory: mild wheeze, otherwise clear to auscultation, nonlabored respirations Cardiovascular: No edema, Regular rate/rhythm Gastrointestinal: soft, TTP in epigastrium Musculoskeletal: No swelling/tenderness Integumentary: No rashes Assessment And Plan Respiratory failure with hypoxia and hypercapnia Obesity hypoventilation syndrome acute on chronic COPD exacerbation Chronic diastolic CHF Chronic pain syndrome Hypertension abdominal pain acute parotitis -continue PO prednisone, bronchodilators, home O2 ordered -abd pain - pt reports chronic but occasionally worse. CT abd/pelvis unremarkable except contracted gallbladder, multiple small anterioro abd hernies - no incarceration or strangulation -will obtain RUQ U/S, and consider surgery consult -continue Augmentin for acute parotitis - CT negative for abscess/fluid collection -continue home pain medications -continue noravasc -still feeling very weak - too weak to safely go home -PT consulted -SW/CM consulted for skilled rehab Code: Full Dispo: anticipate dc to SNF-rehab ini 1-2 days Time Spent Managing Pts Care (In Minutes): 35
[2021-01-04] MEDS: CYCLOBENZAPRINE 10 MG TAB PO SCH ×2 (12:23→21:19)
--- NOTE | 2021-01-04 16:49 | RAD REPORT ---
EXAM DESCRIPTION: US - Abdomen Exam Limited - 01/04/2021 4:31 pm CLINICAL HISTORY: eval gallbladder, RUQ/epigastric pain/tender COMPARISON: Abdomen Pelvis W Contrast dated 12/31/2020 FINDINGS: Gallbladder is incompletely distended. No stones or sludge identified. [place] appear slight ly thickened. No pericholecystic fluid identifiable. No gallbladder or wall mass or polyp seen. No common duct stone or biliary tree dilatation identified. IMPRESSION: Gallbladder wall thickening without pericholecystic fluid, stones or sludge identifiable . An acalculous cholecystitis is possible and can be correlated with clinical presentation. Chronic gal lbladder disease would also be possible. No biliary tree abnormality.
[2021-01-04] MEDS: ATORVASTATIN 40 MG TAB PO SCH (21:19)
[2021-01-04] MEDS: ZOLPIDEM TARTRATE 5 MG TABLET PO PRN (23:33)
[2021-01-05] MEDS: ALBUTEROL 2.5 MG/3 ML NEB SOL NEB SCH ×4 (01:10→21:15)
[2021-01-05] MEDS: IPRATROPIUM BROM 0.5MG/2.5ML NEB SCH ×4 (01:10→21:15)
[2021-01-05 04:04] LABS: Absolute Lymphocytes (CBC) 1.7 K/uL (0.7-4.9); Basophils % 0.5 % (0-1.3); Lymphocytes % 20.8 % (15.3-44.8); MPV 7.4 fL (7.6-11.3); RBC Red Blood Cell Count 5.21 M/uL (3.86-4.86)
[2021-01-05 04:16] LABS: ALT/SGPT 33 U/L (12-78); AST/SGOT 22 U/L (15-37); Albumin 3.4 g/dL (3.4-5.0); Alkaline Phosphatase 71 U/L (45-117); BUN Blood Urea Nitrogen 15 mg/dL (7-18); Bicarbonate 34 mmol/L (21-32); Bilirubin Total 0.4 mg/dL (0.2-1.0); Glucose Level 125 mg/dL (74-106); Potassium 4.9 mmol/L (3.5-5.1); Protein, Total 7.1 g/dL (6.4-8.2); Sodium Level 137 mmol/L (136-145)
[2021-01-05] MEDS: HYDROCODONE/APAP 5/325 MG TAB PO PRN ×3 (07:10→21:03)
[2021-01-05] MEDS: INSULIN -REGULAR HUMAN 50 UNIT/0.5 ML ML SQ SCH ×4 (07:30→21:00)
[2021-01-05] MEDS: CYCLOBENZAPRINE 10 MG TAB PO SCH ×3 (08:41→21:02)
[2021-01-05] MEDS: VENLAFAXINE HCL 37.5 MG TAB PO SCH (08:41)
[2021-01-05] MEDS: AMLODIPINE 10 MG TAB PO SCH (08:41)
[2021-01-05] MEDS: predniSONE 20 MG TAB PO SCH ×2 (08:42→21:02)
[2021-01-05] MEDS: AMOX/K CLAV 875 MG TAB PO SCH ×2 (08:42→21:02)
[2021-01-05] MEDS: GABAPENTIN 400 MG CAP PO SCH ×3 (08:42→21:02)
[2021-01-05] MEDS: ONDANSETRON 4 MG/2 ML VIAL IV PRN ×2 (08:48→20:58)
[2021-01-05] MEDS: ENOXAPARIN 40 MG/0.4 ML SQ SCH (09:00)
[2021-01-05] MEDS: FAMOTIDINE 20 MG TAB PO SCH ×2 (12:12→21:03)
--- NOTE | 2021-01-05 14:22 | P.PN ---
Subjective Date of Service: 01/05/21 Chief Complaint: COPD exacerbation, respiratory failure Subjective: No new changes (no acute events overnight. Pt reports continued abdominal pain - ongoing for years, worse over last week or so. otherwise doing ok, strength slowly returning, but still feels weak and unsafe to go home) Review of Systems 10-point ROS is otherwise unremarkable Physical Examination - Vital Signs Temperature: 97.6 F Blood Pressure: 132/77 Pulse: 92 Respirations: 18 Pulse Ox (%): 93 Assessment & Plan Physician Review Additional Text: Physical Exam General: Alert, In no apparent distress, Oriented x3, morbidly obese HEENT: Mucous membr. moist/pink, no facial swelling, nontender Respiratory: mild wheeze, otherwise clear to auscultation, nonlabored respirations on room air Cardiovascular: No edema, Regular rate/rhythm Gastrointestinal: soft, mild-mod TTP in epigastrium / periumbilical area Musculoskeletal: No swelling/tenderness Integumentary: No rashes Assessment And Plan Respiratory failure with hypoxia and hypercapnia Obesity hypoventilation syndrome acute on chronic COPD exacerbation Chronic diastolic CHF Chronic pain syndrome Hypertension abdominal pain acute parotitis -continue PO prednisone, bronchodilators, home O2 ordered -abd pain - pt reports chronic but occasionally worse. CT abd/pelvis unremarkable except contracted gallbladder, multiple small anterioro abd hernies - no incarceration or strangulation -RUQ U/S with mild swelling, no fluid, no stone, surgery consulted - recommended PO Abx, low fat diet, f/u as outpatient -continue Augmentin for acute parotitis - CT negative for abscess/fluid collection -continue home pain medications -continue norvasc -still feeling very weak - too weak to safely go home; -PT consulted -SW/CM consulted for skilled rehab Code: Full Dispo: awaiting approval for SNF-rehab, hopefully in next 1-2 days Time Spent Managing Pts Care (In Minutes): 35
[2021-01-05] MEDS: ATORVASTATIN 40 MG TAB PO SCH (21:03)
[2021-01-05] MEDS: ZOLPIDEM TARTRATE 5 MG TABLET PO PRN (22:19)
[2021-01-06] MEDS: IPRATROPIUM BROM 0.5MG/2.5ML NEB SCH ×4 (01:40→19:58)
[2021-01-06] MEDS: ALBUTEROL 2.5 MG/3 ML NEB SOL NEB SCH ×4 (01:40→19:58)
[2021-01-06] MEDS: INSULIN -REGULAR HUMAN 50 UNIT/0.5 ML ML SQ SCH ×4 (07:30→21:10)
[2021-01-06] MEDS: AMOX/K CLAV 875 MG TAB PO SCH ×2 (08:48→21:03)
[2021-01-06] MEDS: predniSONE 20 MG TAB PO SCH (08:48)
[2021-01-06] MEDS: CYCLOBENZAPRINE 10 MG TAB PO SCH ×3 (08:48→21:04)
[2021-01-06] MEDS: VENLAFAXINE HCL 37.5 MG TAB PO SCH (08:48)
[2021-01-06] MEDS: GABAPENTIN 400 MG CAP PO SCH ×3 (08:48→21:05)
[2021-01-06] MEDS: FAMOTIDINE 20 MG TAB PO SCH ×2 (08:48→21:04)
[2021-01-06] MEDS: AMLODIPINE 10 MG TAB PO SCH (08:48)
[2021-01-06] MEDS: ENOXAPARIN 40 MG/0.4 ML SQ SCH (08:49)
[2021-01-06] MEDS: ONDANSETRON 4 MG/2 ML VIAL IV PRN (08:55)
[2021-01-06] MEDS: HYDROCODONE/APAP 5/325 MG TAB PO PRN ×2 (12:45→21:04)
[2021-01-06] MEDS: PROMETHAZINE 25 MG TABLET PO PRN ×2 (15:00→21:08)
--- NOTE | 2021-01-06 16:08 | P.PN ---
Subjective Date of Service: 01/06/21 Chief Complaint: COPD exacerbation, respiratory failure Subjective: No new changes (No acute events overnight, continues with some nausea-seems to be related on the time she gets prednisone and Augmentin. feels like zofran doesn't help. continues with chronic pain, feels strength is slowly returning) Review of Systems 10-point ROS is otherwise unremarkable Physical Examination - Vital Signs Temperature: 98.5 F Blood Pressure: 167/80 Pulse: 76 Respirations: 16 Pulse Ox (%): 97 Assessment & Plan Physician Review Additional Text: Physical Exam General: Alert, In no apparent distress, Oriented x3, morbidly obese HEENT: Mucous membr. moist/pink, no facial swelling, nontender Respiratory: clear to auscultation, nonlabored respirations on room air Cardiovascular: No edema, Regular rate/rhythm Gastrointestinal: soft, mild-mod TTP in epigastrium / periumbilical area Musculoskeletal: No swelling/tenderness Integumentary: No rashes Assessment And Plan Respiratory failure with hypoxia and hypercapnia Obesity hypoventilation syndrome acute on chronic COPD exacerbation Chronic diastolic CHF Chronic pain syndrome Hypertension abdominal pain acute parotitis -continue bronchodilators, home O2 ordered (on 0 -2LNC); prednisone dc'd -abd pain - pt reports chronic but occasionally worse. CT abd/pelvis unremarkable except contracted gallbladder, multiple small anterioro abd hernies - no incarceration or strangulation -RUQ U/S with mild swelling, no fluid, no stone, surgery consulted - recommended PO Abx, low fat diet, f/u as outpatient -continue Augmentin for acute parotitis - CT negative for abscess/fluid collection -continue home pain medications -continue norvasc -still feeling very weak - too weak to safely go home; -PT consulted -SW/CM consulted for skilled rehab Code: Full Dispo: awaiting approval for SNF-rehab, hopefully in next 1-2 days Time Spent Managing Pts Care (In Minutes): 35
[2021-01-06] MEDS: ATORVASTATIN 40 MG TAB PO SCH (21:03)
[2021-01-06] MEDS: ZOLPIDEM TARTRATE 5 MG TABLET PO PRN (22:28)
[2021-01-07] MEDS: ALBUTEROL 2.5 MG/3 ML NEB SOL NEB SCH ×4 (02:00→20:15)
[2021-01-07] MEDS: IPRATROPIUM BROM 0.5MG/2.5ML NEB SCH ×4 (02:00→20:15)
[2021-01-07 06:17] LABS: Absolute Lymphocytes (CBC) 2.6 K/uL (0.7-4.9); Basophils % 0.7 % (0-1.3); Lymphocytes % 31.2 % (15.3-44.8); MPV 7.1 fL (7.6-11.3); RBC Red Blood Cell Count 4.96 M/uL (3.86-4.86)
[2021-01-07 06:19] LABS: ALT/SGPT 30 U/L (12-78); AST/SGOT 11 U/L (15-37); Albumin 3.1 g/dL (3.4-5.0); Alkaline Phosphatase 62 U/L (45-117); BUN Blood Urea Nitrogen 16 mg/dL (7-18); Bicarbonate 33 mmol/L (21-32); Bilirubin Total 0.3 mg/dL (0.2-1.0); Glucose Level 115 mg/dL (74-106); Magnesium 2.3 mg/dL (1.8-2.4); Potassium 4.7 mmol/L (3.5-5.1); Protein, Total 6.5 g/dL (6.4-8.2); Sodium Level 141 mmol/L (136-145)
[2021-01-07] MEDS: INSULIN -REGULAR HUMAN 50 UNIT/0.5 ML ML SQ SCH ×4 (07:30→21:00)
[2021-01-07] MEDS: GABAPENTIN 400 MG CAP PO SCH ×3 (08:20→22:17)
[2021-01-07] MEDS: ENOXAPARIN 40 MG/0.4 ML SQ SCH (08:20)
[2021-01-07] MEDS: PROMETHAZINE 25 MG TABLET PO PRN (08:20)
[2021-01-07] MEDS: AMOX/K CLAV 875 MG TAB PO SCH ×2 (08:20→22:17)
[2021-01-07] MEDS: CYCLOBENZAPRINE 10 MG TAB PO SCH ×3 (08:21→22:18)
[2021-01-07] MEDS: HYDROCODONE/APAP 5/325 MG TAB PO PRN ×3 (08:22→22:52)
[2021-01-07] MEDS: AMLODIPINE 10 MG TAB PO SCH (08:30)
[2021-01-07 09:40] LABS: Anisocytosis 3+; Blood Morphology Comment NOTED (NOT SEEN); Platelet Estimate ADEQ; White Blood Cell Scan OK (OK)
[2021-01-07 09:41] LABS: Poikilocytosis 1+
[2021-01-07] MEDS: VENLAFAXINE HCL 37.5 MG TAB PO SCH (10:33)
[2021-01-07] MEDS: FAMOTIDINE 20 MG TAB PO SCH ×2 (10:33→22:18)
[2021-01-07] MEDS: BENZONATATE 100 MG CAP PO PRN (14:06)
[2021-01-07] MEDS: ONDANSETRON 4 MG/2 ML VIAL IV PRN ×2 (14:06→22:07)
--- NOTE | 2021-01-07 15:16 | P.PN ---
Subjective Date of Service: 01/07/21 Chief Complaint: COPD exacerbation, respiratory failure Subjective: No new changes (continues with chronic abd discomfort and nausea. otherwise doing ok, strenght improving, working with PT) Review of Systems 10-point ROS is otherwise unremarkable Physical Examination - Vital Signs Temperature: 97.4 F Blood Pressure: 125/66 Pulse: 68 Respirations: 20 Pulse Ox (%): 95 Assessment & Plan Physician Review Additional Text: Physical Exam General: Alert, In no apparent distress, Oriented x3, morbidly obese HEENT: Mucous membr. moist/pink, no facial swelling, nontender Respiratory: clear to auscultation, nonlabored respirations on room air Cardiovascular: No edema, Regular rate/rhythm Gastrointestinal: soft, mild-mod TTP in epigastrium / periumbilical area, palpable mesh tacks Musculoskeletal: No swelling/tenderness Integumentary: No rashes Assessment And Plan Respiratory failure with hypoxia and hypercapnia Obesity hypoventilation syndrome acute on chronic COPD exacerbation Chronic diastolic CHF Chronic pain syndrome Hypertension abdominal pain acute parotitis -continue bronchodilators, home O2 ordered (on 0 -2LNC); prednisone dc'd -abd pain - pt reports chronic but occasionally worse. CT abd/pelvis unremarkable except contracted gallbladder, multiple small anterior abd hernies - no incarceration or strangulation -RUQ U/S with mild swelling, no fluid, no stone, surgery consulted - recommended PO Abx, low fat diet, f/u as outpatient -reviewed again with surgery today, no surgical intervention at this time -continue Augmentin for acute parotitis - CT negative for abscess/fluid collection -continue home pain medications -continue norvasc -still feeling very weak - too weak to safely go home where she lives alone and without support; -PT consulted -SW/CM consulted for skilled rehab Code: Full Dispo: awaiting approval for SNF-rehab Time Spent Managing Pts Care (In Minutes): 35
[2021-01-07] MEDS: ZOLPIDEM TARTRATE 5 MG TABLET PO PRN (22:17)
[2021-01-07] MEDS: ATORVASTATIN 40 MG TAB PO SCH (22:17)
[2021-01-08] MEDS: ALBUTEROL 2.5 MG/3 ML NEB SOL NEB SCH ×3 (01:20→14:22)
[2021-01-08] MEDS: IPRATROPIUM BROM 0.5MG/2.5ML NEB SCH ×3 (01:20→14:22)
[2021-01-08] MEDS: INSULIN -REGULAR HUMAN 50 UNIT/0.5 ML ML SQ SCH ×4 (07:30→20:55)
[2021-01-08] MEDS: AMOX/K CLAV 875 MG TAB PO SCH ×2 (08:14→20:53)
[2021-01-08] MEDS: ONDANSETRON 4 MG/2 ML VIAL IV PRN ×2 (08:14→19:29)
[2021-01-08] MEDS: GABAPENTIN 400 MG CAP PO SCH ×3 (08:15→20:53)
[2021-01-08] MEDS: HYDROCODONE/APAP 5/325 MG TAB PO PRN ×3 (08:15→20:52)
[2021-01-08] MEDS: CYCLOBENZAPRINE 10 MG TAB PO SCH ×3 (08:15→20:51)
[2021-01-08] MEDS: AMLODIPINE 10 MG TAB PO SCH (08:15)
[2021-01-08] MEDS: FAMOTIDINE 20 MG TAB PO SCH ×2 (08:16→20:53)
[2021-01-08] MEDS: ENOXAPARIN 40 MG/0.4 ML SQ SCH (08:17)
--- NOTE | 2021-01-08 09:25 | P.PN ---
Subjective Date of Service: 01/08/21 Chief Complaint: COPD exacerbation, respiratory failure Subjective: Improving (ambulating a little better, still reports generalized weakness, ongoing chronic abdominal pain, nausea with augmentin. +BM, breathing more comfortably) Review of Systems 10-point ROS is otherwise unremarkable Physical Examination - Vital Signs Temperature: 96.6 F Blood Pressure: 127/67 Pulse: 70 Respirations: 18 Pulse Ox (%): 98 Assessment & Plan Physician Review Additional Text: Physical Exam General: Alert, In no apparent distress, Oriented x3, morbidly obese HEENT: Mucous membr. moist/pink, no facial swelling, nontender Respiratory: clear to auscultation, nonlabored respirations on room air Cardiovascular: No edema, Regular rate/rhythm Gastrointestinal: soft, mild-mod TTP in epigastrium / periumbilical area, palpable mesh tacks, thin abdominal layers Musculoskeletal: No swelling/tenderness Integumentary: No rashes Assessment And Plan Respiratory failure with hypoxia and hypercapnia Obesity hypoventilation syndrome acute on chronic COPD exacerbation Chronic diastolic CHF Chronic pain syndrome Hypertension abdominal pain acute parotitis -continue bronchodilators, home O2 ordered (on 0 -2LNC throughout the day); prednisone dc'd. -abd pain - pt reports chronic but occasionally worse. CT abd/pelvis unremarkable except contracted gallbladder, multiple small anterior abd hernies - no incarceration or strangulation -RUQ U/S with mild swelling, no fluid, no stone, surgery consulted - recommended PO Abx, low fat diet, f/u as outpatient -reviewed again with surgery on 01/07 with patient's ongoing abdominal discomfort, no surgical intervention at this time. -discussed an abdominal binder may help - pain is in area of hernias / anterior abdomen/rectus sheath, worsened with increasing abdominal pressure - ongoing for at least 3-4 months, slowly worsening -pt does not want to use abdominal binder - too uncomfortable for her in lower abdomen -continue Augmentin for acute parotitis - CT negative for abscess/fluid collection -continue home pain medications -continue norvasc -still feeling very weak - too weak to safely go home where she lives alone and without support; slowly improving -SW/CM consulted for skilled rehab Code: Full Dispo: awaiting approval for SNF-rehab Time Spent Managing Pts Care (In Minutes): 40
[2021-01-08] MEDS: VENLAFAXINE HCL 37.5 MG TAB PO SCH (11:46)
[2021-01-08] MEDS: ZOLPIDEM TARTRATE 5 MG TABLET PO PRN (20:53)
[2021-01-08] MEDS: ATORVASTATIN 40 MG TAB PO SCH (20:55)
[2021-01-09] MEDS: HYDROCODONE/APAP 5/325 MG TAB PO PRN ×3 (05:34→21:02)
[2021-01-09 06:05] LABS: BUN Blood Urea Nitrogen 13 mg/dL (7-18); Bicarbonate 30 mmol/L (21-32); Glucose Level 120 mg/dL (74-106); Magnesium 2.1 mg/dL (1.8-2.4); Phosphorus 4.5 mg/dL (2.5-4.9); Potassium 4.4 mmol/L (3.5-5.1); Sodium Level 140 mmol/L (136-145)
[2021-01-09] MEDS: INSULIN -REGULAR HUMAN 50 UNIT/0.5 ML ML SQ SCH ×4 (07:30→20:58)
[2021-01-09] MEDS: GABAPENTIN 400 MG CAP PO SCH ×3 (07:57→20:57)
[2021-01-09] MEDS: VENLAFAXINE HCL 37.5 MG TAB PO SCH (07:58)
[2021-01-09] MEDS: CYCLOBENZAPRINE 10 MG TAB PO SCH ×3 (07:58→20:57)
[2021-01-09] MEDS: FAMOTIDINE 20 MG TAB PO SCH ×2 (07:58→20:57)
[2021-01-09] MEDS: AMOX/K CLAV 875 MG TAB PO SCH ×2 (07:58→20:57)
[2021-01-09] MEDS: ENOXAPARIN 40 MG/0.4 ML SQ SCH (07:59)
[2021-01-09] MEDS: ONDANSETRON 4 MG/2 ML VIAL IV PRN ×2 (08:03→19:11)
[2021-01-09] MEDS: AMLODIPINE 10 MG TAB PO SCH (08:04)
--- NOTE | 2021-01-09 15:36 | P.PN ---
Subjective Date of Service: 01/09/21 Chief Complaint: COPD exacerbation, respiratory failure Subjective: No new changes Review of Systems 10-point ROS is otherwise unremarkable Physical Examination - Vital Signs Temperature: 96.9 F Blood Pressure: 127/65 Pulse: 74 Respirations: 18 Pulse Ox (%): 95 Assessment & Plan Physician Review Additional Text: Physical Exam General: Alert, no apparent distress, Oriented x3, morbidly obese HEENT: Mucous membr. moist/pink, no facial swelling, nontender Respiratory: clear to auscultation, non-labored respirations on room air Cardiovascular: No edema, Regular rate/rhythm Gastrointestinal: soft, mild-mod TTP in epigastrium / periumbilical area, palpable mesh tacks Musculoskeletal: No swelling/tenderness Integumentary: No rashes Assessment And Plan Respiratory failure with hypoxia and hypercapnia Obesity hypoventilation syndrome acute on chronic COPD exacerbation Chronic diastolic CHF Chronic pain syndrome Hypertension abdominal pain acute parotitis -continue bronchodilators, home O2 ordered; Prednisone dc'd. -abd pain - pt reports chronic but occasionally worse. CT abd/pelvis unremarkable except contracted gallbladder, multiple small anterior abd hernies - no incarceration or strangulation -RUQ U/S with mild swelling, no fluid, no stone, surgery consulted - recommended PO Abx, low fat diet, f/u as outpatient -reviewed again with surgery on 01/07 with patient's ongoing abdominal discomfort, no surgical intervention at this time. -discussed an abdominal binder may help - pain is in area of hernias / anterior abdomen/rectus sheath, worsened with increasing abdominal pressure - ongoing for at least 3-4 months, slowly worsening -pt does not want to use abdominal binder - too uncomfortable for her in lower abdomen -continue Augmentin for Acute Parotitis - CT negative for abscess/fluid collection, covers gallbladder as well -continue home pain medications -continue Nrvasc -still feeling very weak - but feels daily improvement as well -SW/CM consulted for skilled rehab Code: Full Dispo: awaiting approval for SNF-rehab Time Spent Managing Pts Care (In Minutes): 35
[2021-01-09] MEDS: ATORVASTATIN 40 MG TAB PO SCH (20:57)
[2021-01-09] MEDS: ZOLPIDEM TARTRATE 5 MG TABLET PO PRN (20:57)
[2021-01-10] MEDS: HYDROCODONE/APAP 5/325 MG TAB PO PRN ×2 (04:10→13:25)
[2021-01-10] MEDS: INSULIN -REGULAR HUMAN 50 UNIT/0.5 ML ML SQ SCH ×4 (07:30→20:38)
[2021-01-10] MEDS: AMLODIPINE 10 MG TAB PO SCH (08:06)
[2021-01-10] MEDS: GABAPENTIN 400 MG CAP PO SCH ×3 (08:06→20:44)
[2021-01-10] MEDS: VENLAFAXINE HCL 37.5 MG TAB PO SCH (08:06)
[2021-01-10] MEDS: CYCLOBENZAPRINE 10 MG TAB PO SCH ×3 (08:06→20:44)
[2021-01-10] MEDS: AMOX/K CLAV 875 MG TAB PO SCH ×2 (08:06→20:44)
[2021-01-10] MEDS: ONDANSETRON 4 MG/2 ML VIAL IV PRN ×2 (08:07→20:45)
[2021-01-10] MEDS: ENOXAPARIN 40 MG/0.4 ML SQ SCH (08:07)
[2021-01-10] MEDS: ALBUTEROL 2.5 MG/3 ML NEB SOL NEB PRN ×2 (08:23→13:56)
[2021-01-10] MEDS: IPRATROPIUM BROM 0.5MG/2.5ML NEB PRN ×2 (08:23→13:56)
--- NOTE | 2021-01-10 12:22 | P.PN ---
Subjective Date of Service: 01/10/21 Chief Complaint: COPD exacerbation, respiratory failure Subjective: Other (now reports R knee pain, no trauma, no injury, reports h/o arthritis. occasionally feels pain from hip to knee.) Review of Systems 10-point ROS is otherwise unremarkable Physical Examination - Vital Signs Temperature: 97.0 F Blood Pressure: 132/66 Pulse: 77 Respirations: 19 Pulse Ox (%): 95 Assessment & Plan Physician Review Additional Text: Physical Exam General: Alert, no apparent distress, Oriented x3, morbidly obese HEENT: Mucous membr. moist/pink, normal conjunctiva, no facial swelling Respiratory: clear to auscultation, non-labored respirations on room air Cardiovascular: No edema, Regular rate/rhythm Gastrointestinal: soft, mild TTP in epigastrium / periumbilical area, palpable mesh tacks Musculoskeletal: No swelling, tenderness to palpation along knee joint line / patella (inconsistent), pain with active and passive ROM Integumentary: No rashes Assessment And Plan Respiratory failure with hypoxia and hypercapnia Obesity hypoventilation syndrome acute on chronic COPD exacerbation Chronic diastolic CHF Chronic pain syndrome Hypertension abdominal pain acute parotitis -continue bronchodilators, home O2 ordered; Prednisone completed -abd pain - pt reports chronic but occasionally worse. CT abd/pelvis unremarkable except contracted gallbladder, multiple small anterior abd hernies - no incarceration or strangulation -RUQ U/S with mild swelling, no fluid, no stone, surgery consulted - recommended PO Abx, low fat diet, f/u as outpatient -reviewed again with surgery on 01/07 with patient's ongoing abdominal discomfort, no surgical intervention at this time. -discussed an abdominal binder may help - pain is in area of hernias / anterior abdomen/rectus sheath, worsened with increasing abdominal pressure - ongoing for at least 3-4 months, slowly worsening -pt does not want to use abdominal binder - too uncomfortable for her in lower abdomen -continue Augmentin for Acute Parotitis - CT negative for abscess/fluid collection, covers gallbladder as well -continue home pain medications -continue Norvasc -SW/CM consulted for skilled rehab -knee pain likely chronic arthritis, pt's exam inconsistent where she has tenderness, will obtain x-ray Code: Full Dispo: awaiting approval for SNF-rehab Time Spent Managing Pts Care (In Minutes): 35
[2021-01-10] MEDS: FAMOTIDINE 20 MG TAB PO SCH ×2 (12:34→20:44)
--- NOTE | 2021-01-10 13:16 | RAD REPORT ---
EXAM DESCRIPTION: RAD - Knee Left 3 View - 01/10/2021 1:07 pm CLINICAL HISTORY: knee pain, no trauma COMPARISON: No comparisons FINDINGS: No acute fracture changes are present. No joint effusion seen. Patient has minimal margina l spurring in the medial compartment. Tibial plateau shows no significant finding. Lateral femoral co ndyle is abnormal. There are sclerotic changes primarily in the subcortical region along with some ornelas bcortical degenerative cysts. Slightly irregular contour seen to the articular cortex of the lateral femoral condyle. No joint space narrowing. No soft tissue abnormality. 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 No acute bone or joint finding. Clinical concerns for internal derangement or need to further evaluate the lateral femoral condyle ca n be obtained with follow-up outpatient MR imaging.
[2021-01-10] MEDS: HYDROCODONE/APAP 7.5/325 MG TAB PO PRN (18:47)
[2021-01-10] MEDS: ATORVASTATIN 40 MG TAB PO SCH (20:44)
[2021-01-10] MEDS: ZOLPIDEM TARTRATE 5 MG TABLET PO PRN (20:44)
[2021-01-11] MEDS: HYDROCODONE/APAP 7.5/325 MG TAB PO PRN ×4 (01:02→22:18)
[2021-01-11] MEDS: INSULIN -REGULAR HUMAN 50 UNIT/0.5 ML ML SQ SCH ×4 (07:30→21:00)
[2021-01-11] MEDS: GABAPENTIN 400 MG CAP PO SCH ×3 (09:48→22:18)
[2021-01-11] MEDS: FAMOTIDINE 20 MG TAB PO SCH ×2 (09:48→22:18)
[2021-01-11] MEDS: CYCLOBENZAPRINE 10 MG TAB PO SCH ×3 (09:48→22:18)
[2021-01-11] MEDS: ONDANSETRON 4 MG/2 ML VIAL IV PRN ×2 (09:48→22:35)
[2021-01-11] MEDS: AMOX/K CLAV 875 MG TAB PO SCH ×2 (09:49→22:18)
[2021-01-11] MEDS: VENLAFAXINE HCL 37.5 MG TAB PO SCH (09:49)
[2021-01-11] MEDS: AMLODIPINE 10 MG TAB PO SCH (09:49)
[2021-01-11] MEDS: ENOXAPARIN 40 MG/0.4 ML SQ SCH (09:50)
--- NOTE | 2021-01-11 13:49 | P.PN ---
Subjective Date of Service: 01/11/21 Chief Complaint: COPD exacerbation, respiratory failure Patient complaining of bilateral knee pain, worse on the right. She denies shortness of breath. She is stable on room air. She ambulated with physical therapy, less distance today. Physical Examination - Vital Signs Temperature: 97.6 F Blood Pressure: 125/69 Pulse: 75 Respirations: 18 Pulse Ox (%): 98 - Physical Exam General: Alert, In no apparent distress, Oriented x3 HEENT: Mucous membr. moist/pink Neck: Supple, JVD not distended Respiratory: Clear to auscultation bilaterally, Normal air movement Cardiovascular: No edema, Regular rate/rhythm, Normal S1 S2 Gastrointestinal: Soft and benign, No tenderness Musculoskeletal: No swelling Integumentary: No rashes, No erythema Neurological: Normal strength at 5/5 x4 extr Assessment And Plan - Current Problems (Diagnosis) (1) Respiratory failure with hypoxia and hypercapnia Current Visit: Yes Status: Resolved (2) Obesity hypoventilation syndrome Current Visit: Yes Status: Chronic (3) COPD exacerbation Current Visit: Yes Status: Acute (4) Chronic diastolic (congestive) heart failure Current Visit: Yes Status: Acute (5) Chronic pain syndrome Current Visit: No Status: Acute (6) Accelerated hypertension Current Visit: Yes Status: Acute (7) Abdominal pain Current Visit: Yes Status: Acute (8) Acute parotitis Current Visit: Yes Status: Acute Physician Review Additional Text: Physical Exam General: Alert, no apparent distress, Oriented x3, morbidly obese HEENT: Mucous membr. moist/pink, normal conjunctiva, no facial swelling Respiratory: clear to auscultation, non-labored respirations on room air Cardiovascular: No edema, Regular rate/rhythm Gastrointestinal: soft, mild TTP in epigastrium / periumbilical area, palpable mesh tacks Musculoskeletal: No swelling, tenderness to palpation along knee joint line / patella (inconsistent), pain with active and passive ROM Integumentary: No rashes Assessment And Plan Respiratory failure with hypoxia and hypercapnia Obesity hypoventilation syndrome acute on chronic COPD exacerbation Chronic diastolic CHF Chronic pain syndrome Hypertension abdominal pain acute parotitis -stable respiratory vail. continue bronchodilators, home O2 ordered; Prednisone completed -abd pain - pt reports chronic but occasionally worse. CT abd/pelvis unremarkable except contracted gallbladder, multiple small anterior abd hernies - no incarceration or strangulation -RUQ U/S with mild swelling, no fluid, no stone, surgery consulted - recommended PO Abx, low fat diet, f/u as outpatient -reviewed again with surgery on 01/07 with patient's ongoing abdominal dis comfort, no surgical intervention at this time. -continue Augmentin for Acute Parotitis - CT negative for abscess/fluid collection, covers gallbladder as well -continue home pain medications -continue Norvasc -SW/CM consulted for skilled rehab -knee pain likely chronic arthritis, pt's exam inconsistent where she has tenderness. -Knee x-ray shows also necrosis of the lateral femoral condyle. -conservative management, follow up with ortho as an outpatient. Code: Full Dispo: awaiting approval for SNF-rehab
[2021-01-11] MEDS: ALBUTEROL 2.5 MG/3 ML NEB SOL NEB PRN (14:50)
[2021-01-11] MEDS: IPRATROPIUM BROM 0.5MG/2.5ML NEB PRN (14:50)
--- NOTE | 2021-01-11 18:36 | P.DS ---
Admission Date: 12/29/20 Discharge Date: 01/11/21 Disposition: TRANSFER TO ASSISTED Discharge Condition: FAIR Reason for Admission: COPD exacerbation, respiratory failure - Problems (1) Respiratory failure with hypoxia and hypercapnia Current Visit: Yes Status: Resolved (2) Obesity hypoventilation syndrome Current Visit: Yes Status: Chronic (3) COPD exacerbation Current Visit: Yes Status: Acute (4) Chronic diastolic (congestive) heart failure Current Visit: Yes Status: Acute (5) Chronic pain syndrome Current Visit: No Status: Acute (6) Accelerated hypertension Current Visit: Yes Status: Acute (7) Abdominal pain Current Visit: Yes Status: Acute (8) Acute parotitis Current Visit: Yes Status: Acute Brief History of Present Illness: 60 yo F with COPD and CHF presented to the emergency department with a complaint of 1 week history of increased weakness, night sweats, SOB, and cough productive of yellow/green sputum. She reports her partial improvement of her symptoms with her inhalers. She continues to smoke 1/2 ppd. Patient was hypoxic in the ED. CTA thorax reported no pulmonary embolus. It did report increased interstitial opacification which could be edema or infiltrate. It also identified a pulmonary nodule. Patient was admitted for further management of COPD exacerbation. Hospital Course: Respiratory failure with hypoxia and hypercapnia Obesity hypoventilation syndrome acute on chronic COPD exacerbation Chronic diastolic CHF Chronic pain syndrome Hypertension abdominal pain acute parotitis Pulmonary nodule -patient admitted to the medical floor and treated with IV steroid, scheduled bronchodilators and Zithromax.. -she was maintained on oxygen by nasal cannula. -the respiratory condition improved with treatment, patient was gradually weaned off oxygen. IV steroid was transitioned to oral prednisone. Patient completed steroid therapy. -she developed right acute parotitis which was treated initially with IV clindamycin and later transitioned to oral Augmentin. The acute parotitis resolved with treatment. -she complained of abd pain which patient stated is chronic. She reported history of multiple hernias in her abdomen. CT abd/pelvis unremarkable except contracted gallbladder, multiple small anterior abd hernies - no incarceration or strangulation -RUQ U/S with mild swelling, no fluid, no stone, surgery consulted whgo recommended PO Abx, low fat diet, and f/u as outpatient -reviewed again with surgery on 01/07 with patient's ongoing abdominal discomfort, no surgical intervention recommended. -continue Norvasc for hypertension. -patient was generally weak, was complaining of knee pain from her arthritis and overall had decline in her functional status. -she was seen by PT, continue PT recommended -patient accepted for skilled rehab placement. -she is clinically stable for discharge. -she will need follow up of her pulmonary nodule with a repeat CT chest within 6 months. Vital Signs/Physical Exam: Temp Pulse Resp BP Pulse Ox 97.3 F 74 18 135/71 100 01/11/21 16:00 01/11/21 16:00 01/11/21 16:00 01/11/21 16:00 01/11/21 16:00 General: Alert, In no apparent distress, Oriented x3 HEENT: Mucous membr. moist/pink Neck: Supple, JVD not distended Respiratory: Clear to auscultation bilaterally, Normal air movement Cardiovascular: No edema, Regular rate/rhythm, Normal S1 S2 Gastrointestinal: Normal bowel sounds, Soft and benign, Non-distended, No tenderness Musculoskeletal: No swelling Integumentary: No rashes Neurological: Normal strength at 5/5 x4 extr, Cranial nerves 3-12 intact Laboratory Data at Discharge: WBC 8.30 K/uL (4.3-10.9) 01/07/21 05:18 Hgb 11.4 g/dL (12.0-15.0) L 01/07/21 05:18 Hct 37.0 % (36.0-45.0) 01/07/21 05:18 Plt Count 400 K/uL (152-406) D 01/07/21 05:18 PT 13.4 SECONDS (9.5-12.5) H 12/29/20 01:37 INR 1.16 12/29/20 01:37 APTT Cancelled 12/29/20 01:53 Sodium 140 mmol/L (136-145) 01/09/21 05:34 Potassium 4.4 mmol/L (3.5-5.1) 01/09/21 05:34 BUN 13 mg/dL (7-18) 01/09/21 05:34 Creatinine 0.43 mg/dL (0.55-1.3) L 01/09/21 05:34 Glucose 120 mg/dL (74-106) H 01/09/21 05:34 Phosphorus 4.5 mg/dL (2.5-4.9) 01/09/21 05:34 Magnesium 2.1 mg/dL (1.8-2.4) 01/09/21 05:34 Total Bilirubin 0.3 mg/dL (0.2-1.0) 01/07/21 05:18 AST 11 U/L (15-37) L 01/07/21 05:18 ALT 30 U/L (12-78) 01/07/21 05:18 Alkaline Phosphatase 62 U/L (45-117) 01/07/21 05:18 Triglycerides 154 mg/dL (<150) H 12/30/20 05:40 Cholesterol 140 mg/dL (<200) 12/30/20 05:40 HDL Cholesterol 47 mg/dL (40-60) 12/30/20 05:40 Cholesterol/HDL Ratio 2.98 12/30/20 05:40 Lipase 37 U/L (73-393) L 12/29/20 01:37 Home Medications: Gabapentin [Neurontin*] 800 mg PO TID 09/22/14 Metaxalone 800 mg PO QID 04/26/18 Atorvastatin Calcium 40 mg PO DAILY 12/29/20 Furosemide 40 mg PO DAILY 12/29/20 Venlafaxine HCl 37.5 mg PO DAILY WITH BREAKFAST 12/29/20 Fluticasone/Umeclidin/Vilanter [Trelegy Ellipta 100-62.5-25] 1 each IH DAILY #30 blst.w.dev 12/31/20 Albuterol Neb [Proventil 0.083% Neb Soln] 2.5 mg NEB [id number] PRN amp 01/11/21 Amlodipine [Norvasc*] 10 mg PO DAILY tab 01/11/21 Benzonatate [Tessalon Perle*] 100 mg PO TID PRN cap 01/11/21 Famotidine [Pepcid*] 40 mg PO BID tab 01/11/21 Hydrocodone 7.5/APAP 325 [[place] 7.5/325 mg*] 1 tab PO Q6H PRN #20 tab 01/11/21 Ipratropium Neb [Atrovent*] 0.5 mg NEB [id number] PRN amp 01/11/21 New Medications: Hydrocodone 7.5/APAP 325 [[place] 7.5/325 mg*] 1 tab PO Q6H PRN #20 tab PRN Reason: Pain Scale 8-10 (Severe) Fluticasone/Umeclidin/Vilanter [Trelegy Ellipta 100-62.5-25] 1 each IH DAILY #30 blst.w.dev Diet: AHA Activity: Fall precautions Followup: Unknown,U [Primary Care Provider] - Time spent managing pt's care (in minutes): 35
[2021-01-11 21:33] VITALS: O2SAT 94
[2021-01-11 21:53] VITALS: BP 146/74; TEMP 97
[2021-01-11] MEDS: ATORVASTATIN 40 MG TAB PO SCH (22:19)
== END 2021-01-11 23:07 | DRG 189 ==
LOC: ER 00:54 → ERHOLD 05:43 → 2ND 13:52
PROVIDERS: ADMIT Internal Medicine; ATTEND Internal Medicine
PROC: 5A09557 Assistance with Respiratory Ventilation, Greater than 96 Consecutive Hours, Continuous Positive Airway Pressure (ICD-10-PCS; principal; 2020-12-29)
DX: J96.01 Acute respiratory failure with hypoxia (principal); J18.0 Bronchopneumonia, unspecified organism; J44.1 Chronic obstructive pulmonary disease with (acute) exacerbation; E66.2 Morbid (severe) obesity with alveolar hypoventilation; Z68.41 Body mass index [BMI] 40.0-44.9, adult; I50.32 Chronic diastolic (congestive) heart failure; J44.0 Chronic obstructive pulmonary disease with (acute) lower respiratory infection; J96.02 Acute respiratory failure with hypercapnia; J20.9 Acute bronchitis, unspecified; I11.0 Hypertensive heart disease with heart failure; G89.4 Chronic pain syndrome; K11.21 Acute sialoadenitis; K46.9 Unspecified abdominal hernia without obstruction or gangrene; F17.200 Nicotine dependence, unspecified, uncomplicated; R10.9 Unspecified abdominal pain; R68.84 Jaw pain; Z88.0 Allergy status to penicillin; Z88.8 Allergy status to other drugs, medicaments and biological substances; Z88.1 Allergy status to other antibiotic agents; Z91.040 Latex allergy status; Z90.49 Acquired absence of other specified parts of digestive tract; Z79.899 Other long term (current) drug therapy; Z60.2 Problems related to living alone; Z20.822 Contact with and (suspected) exposure to COVID-19
CPT/HCPCS: 0240U; 36415; 51702; 70450; 70491; 71045; 71250; 71275; 74176; 74177; 76705; 80048; 80053; 80061; 80076; 80307; 80320; 80329; 81003; 81015; 82805; 82947; 83036; 83605; 83690; 83735; 83880; 84100; 84443; 84484; 85025; 85379; 85610; 85730; 87040; 87086; 87088; 87205; 93005; 93306; 94640; 94660; 94760; 96365; 96366; 96367; 96375; 97116; 97161; 97530; 99285; J0360; J0456; J0696; J1650; J1940; J2185; J2270; J2405; J2550; J2920; J2930; J7030; J7050; J7512; Q0169; Q9967; U0003

== ENCOUNTER 2021-08-26 21:56 | Emergency (ER) | payer OTHER ==
--- OUTSIDE RECORDS SUMMARY | 2021-08-26 22:13 | XMS REPORT | Continuity of Care Document ---
:[address] [facility] t Address [address] [place] [address] Care Team Providers Name Role Phone LALITO Attending Clinician Unavailable Doctor Unassigned, Name Attending Clinician Unavailable Ramón DO Attending Clinician Hany DO Attending Clinician Tylor Sandoval MD Attending Clinician RAMÓN Attending Clinician Unavailable RAMÓN Attending Clinician Unavailable OMRANIAN Attending Clinician Unavailable Hany COPELAND Admitting Clinician OMRANIAN Admitting Clinician Unavailable Payers Payer Name Policy Type Policy Number Effective Date Expiration Date S [facility] [place]IC[place] PART A [id number] 2011 \\T\\ B 00:00:00 Problems Condition Condition Condition Status Onset Resolution Last Treating Co mments Source Name Details Category Date Date Treatment Clinician Date Closed Closed Disease Active 2019-08 Univers nondisplac nondisplac 0-14 it y of ed ed 00:00: [place] fracture fracture 00 Medica l of greater of greater Br anch tuberosity tuberosity of left of left humerus humerus Sepsis Sepsis Disease Active 2019-08 Univers 0-11 ity of 00:00: [place] 00 Medical Branch Acute on Acute on Disease Active 2019-08 Unive rs chronic chronic 0-10 ity of pancreatit pancreatit [place] 00 Medical Branch Obesity Obesity Disease Active 2019-08 Univers (BMI (BMI 0-09 ity of 30-39.9) 30-39.9) 00:00: [place] [facility] NSTEMI NSTEMI Disease Active Univers (non-ST (non-ST 2-22 ity of elevated elevated 00:00: [place] myocardial myocardial 00 Me dical infarction infarction Br anch ) ) SIRS SIRS Disease Active Univers (systemic (systemic 2-22 ity of inflammato inflammato 00:00[place] ry ry 00 Medical response response Branch syndrome) syndrome) Chronic Chronic Disease Active Univers hypercapni hypercapni 9-18 it y of c c 00:00: [place] respirator respirator 00 Me dical y failure y failure Bran ch Acute Acute Disease Active Univers encephalop encephalop 9-18 it y of athy athy 00:00: [place] [facility] Alcohol Alcohol Disease Active Univers abuse abuse 9-18 ity of 00:00: [place] 00 Medical Branch Acute Acute Disease Active Univers liver liver 9-14 ity of failure failure 00:00: [place] without without 00 Medical hepatic hepatic Branch coma coma ENRIQUE (acute ENRIQUE (acute Disease Active U nivers kidney kidney 9-14 ity of injury) injury) 00:00: [place] 00 Medical Branch Other Other Disease Active Univers chronic chronic 9-14 ity of pain pain 00:00: [place] 00 Medical Branch Left Left Problem Active Univers shoulder shoulder ity of pain pain [place] [facility] Closed Closed Problem Active Univers nondisplac nondisplac it y of ed ed [place] fracture fracture Physic i of greater of greater an s tuberosity tuberosity of left of left humerus, humerus, initial initial encounter encounter Closed Closed Problem Active Univers nondisplac nondisplac it y of ed ed [place] fracture fracture Physic i of greater of greater an s tuberosity tuberosity of right of right humerus humerus with with routine routine healing, healing, subsequent subsequent encounter encounter Allergies, Adverse Reactions, Alerts Allergy Allergy Status Severity Reaction(s) Onset Inactive Treating Comm ents Source Name Type Date Date Clinician NAPROXEN [facility] LATEX Allergy Active [facility] LEVOFLOX Allergy Active Itching 2018-[address] [facility] [address] ACIN [facility] PENICILL Allergy Active Hives 2018-[address] [facility] INS [facility] 00 [place] Latex Adverse Active Info Not [facility] Reaction Available [facility] NO KNOWN Drug Active Univers ALLERGIE Class ity of S [facility] Penicill Adverse Active Info Not [facility] t in G Reaction Available [facility] Naproxen Adverse Active Info Not [facility] Reaction Available [facility] Levaquin Adverse Active Info Not [facility] Reaction Available [facility] Social History Social Habit Start Date Stop Date Quantity Comments Source Sex Assigned At Universit y of [facility] Exposure to Not sure [facility] SARS-CoV-2 (event) [facility] Cigarettes smoked 2020-05-23 2020-05-23 Univers ity of current (pack per 00:00:00 00:00:00 ) - Reported Branch Cigarette 2020-05-23 2020-05-23 University of pack-years 00:00:00 00:00:00 [facility] Tobacco use and 2020-05-23 2020-05-23 Never used Universit y of exposure 00:00:00 00:00:00 [facility] Alcohol intake 2020-05-23 2020-05-23 Current drinker Unive rsity of 00:00:00 00:00:00 of alcohol [facility] (finding) Branch History SDOH 2020-05-20 2020-05-20 99 University o f Alcohol Binge 00:00:00 00:00:00 [place] Medic al Branch History SDOH 2020-05-20 2020-05-20 3 University o f Financial 00:00:00 00:00:00 [facility] Branch History [facility] Food 2020-05-20 2020-05-20 1 Univers ity of Worry 00:00:00 00:00:00 [facility] Branch History [facility] Food 2020-05-20 2020-05-20 1 Univers ity of Scarcity 00:00:00 00:00:00 [facility] Tobacco Comment 2020-05-20 2020-05-20 4-5 Universit y of 00:00:00 00:00:00 cigarettes/day [facility] Branch History SDME 2020-05-20 2020-05-20 5 [place] o f Alcohol Frequency 00:00:00 00:00:00 [place] M edical Branch History [facility] 2020-05-20 2020-05-20 2 [place] o f Alcohol Std Drinks 00:00:00 00:00:00 [place] [facility] Smoking Status Start Date Stop Date Source Smoker, current status 2020-05-23 00:00:00 Unive rsity of [facility] unknown Branch Medications Ordered Filled Start Stop Current Ordering Indication Dosage Frequency Signature Comments Components Source Medication Medication Date Date Medication? Clinician (SIG) Name Name thiamine 2019-08- No [id number] 100mg Take 1 Univers 100 mg 0-15 - 9107 tablet by ity of tablet 00:00: 05:59 mouth [place] 00 :00 daily for Medical 90 days. Branch aspirin 81 2019-08 Yes 81mg Take 1 Unive rs mg chewable 0-14 tablet by ity of tablet 22:58: mouth [place] 11 daily. Medical Branch aspirin 81 2019-08 Yes 81mg Take 1 Unive rs mg chewable 0-14 tablet by ity of tablet 22:58: mouth [place] 11 daily. Medical Branch thiamine 2019-08 Yes 100mg 100 mg, Unive rs (VITAMIN 0-14 Oral, ity of B1) tablet 14:00: DAILY, [place] 100 mg 00 First dose Medical on Sun [place] 05/26/20 at 0900, Until Discontinu ed, Routine KCL 2019-08- No 40meq 40 mEq, Univers (KLOR-CON 0-14 10-14 Oral, ity of M20) tablet 13:30: 19:20 ONCE, 1 [place] 40 mEq 00 :00 dose, Sun Medical 05/26/20 Branch at 0830, Routine melatonin 2019-08 Yes 3mg 3 mg, Univers (MELATIN) 0-14 Oral, ity of tablet 3 mg 06:32: QHSPRN, [place] 44 Starting Medical [facility] 05/26/20 at 0132, Until Discontinu ed, Routine, Insomnia pantoprazol 2019-08 Yes 40mg 40 mg, Univ ers e 0-14 Oral, BID, ity of (PROTONIX) 01:00: First dose [place] EC tablet 00 (after Medical 40 mg last Branch modificati on) on Sun05/25/20 at 2000, Until Discontinu ed, Routine sennosides- 2019-08 Yes 1{tbl} 1 tablet, Univers docusate 0-14 Oral, BID, ity o f sodium 01:00: First dose [place] (SENOKOT-S) 00 on Tue Medica l 8.6-50 mg 05/25/20 Branch per tablet at 1999, 1 tablet Until Discontinu ed, Routine gabapentin 2019-08 Yes [id number] 400mg Take 1 Univers 400 mg 0-14 9107 capsule by ity of capsule 00:00: mouth 3 [place] 00 (three) Medical times Branch daily. metoprolol 2019-08 Yes [id number] 25mg Take 1 Univers succinate 0-14 9107 tablet by ity o f XL 25 mg 24 00:00: mouth [place] hr tablet 00 daily. Medical Branch pantoprazol 2019-08 Yes [id number] 40mg Take 1 Univers e 40 mg EC 0-14 9107 tablet by ity of tablet 00:00: mouth [place] 00 daily. Medical Branch Polyethylen 2019-08 Yes [id number] 17g Take 1 Univers e Glycol 0-14 9107 Packet by ity of 3350 17 00:00: mouth 3 [place] gram powder 00 (three) Medic al times Branch daily. sennosides- 2019-08 Yes [id number] 1{tbl} Take 1 Univers docusate 0-14 9107 tablet by ity of sodium 00:00: mouth 2 [place] 8.6-50 mg 00 (two) Medical per tablet times Branch daily. hydroCHLORO 2019-08 Yes [id number] 12.5mg Take 1 Univers thiazide 0-14 9107 capsule by ity o f 12.5 mg 00:00: mouth [place] capsule 00 daily. Medical Branch doxycycline 2019-08 Yes [id number] 100mg Take 1 Univers hyclate 100 0-14 9107 capsule by it y of mg capsule 00:00: mouth [place] 00 every 12 Medical (twelve) Branch hours. acetaminoph 2019-08 Yes [id number] 1{tbl} Take 1 Un urszula en-codeine 0-14 tablet by ity of 300-30 mg 00:00: mouth [place] tablet 00 every 6 Medical (six) Branch hours as needed for Pain (scale 7-10). Indication s: acute pain, left humeral fracture atorvastati 2019-08 Yes 40mg Take 1 Univ ers n 40 mg 0-14 tablet by ity of tablet 00:00: mouth at [place] 00 bedtime. Medical Branch gabapentin 2019-08 Yes [id number] 400mg Take 1 Univers 400 mg 0-14 9107 capsule by ity of capsule 00:00: mouth 3 [place] 00 (three) Medical times Branch daily. metoprolol 2019-08 Yes [id number] 25mg Take 1 Univers succinate 0-14 9107 tablet by ity o f XL 25 mg 24 00:00: mouth [place] hr tablet 00 daily. Medical Branch pantoprazol 2019-08 Yes [id number] 40mg Take 1 Univers e 40 mg EC 0-14 9107 tablet by ity of tablet 00:00: mouth [place] 00 daily. Medical Branch Polyethylen 2019-08 Yes [id number] 17g Take 1 Univers e Glycol 0-14 9107 Packet by ity of 3350 17 00:00: mouth 3 [place] gram powder 00 (three) Medic al times Branch daily. sennosides- 2019-08 Yes [id number] 1{tbl} Take 1 Univers docusate 0-14 9107 tablet by ity of sodium 00:00: mouth 2 [place] 8.6-50 mg 00 (two) Medical per tablet times Branch daily. hydroCHLORO 2019-08 Yes [id number] 12.5mg Take 1 Univers thiazide 0-14 9107 capsule by ity o f 12.5 mg 00:00: mouth [place] capsule 00 daily. Medical Branch doxycycline 2019-08 Yes [id number] 100mg Take 1 Univers hyclate 100 0-14 9107 capsule by it y of mg capsule 00:00: mouth [place] 00 every 12 Medical (twelve) Branch hours. acetaminoph 2019-08 Yes [id number] 1{tbl} Take 1 Un urszula en-codeine 0-14 tablet by ity of 300-30 mg 00:00: mouth [place] tablet 00 every 6 Medical (six) Branch hours as needed for Pain (scale 7-10). Indication s: acute pain, left humeral fracture atorvastati 2019-08 Yes 40mg Take 1 Univ ers n 40 mg 0-14 tablet by ity of tablet 00:00: mouth at [place] 00 bedtime. Medical Branch ipratropium 2019-08 Yes .5mg 0.5 mg, Uni vers (ATROVENT) 0-13 Inhalation ity of 0.02 % 19:00: , TID, [place] nebulizer 00 First dose Medi josé solution (after Branch 0.5 mg last modificati on) on Sun05/25/20 at 1400, Until Discontinu ed, Routine Polyethylen 2019-08 Yes 17g 17 g, Unive rs e Glycol 0-13 Oral, TID, ity o f 3350 19:00: First dose [place] (MIRALAX) 00 (after Medical powder 17 g last Branch modificati on) on Sun05/25/20 at 1400, Until Discontinu ed, Routine gabapentin 2019-08 Yes 400mg 400 mg, Uni vers (NEURONTIN) 0-13 Oral, TID, it y of capsule 400 19:00: First dose [place] mg 00 (after Medical last Branch modificati on) on Sun05/25/20 at 1400, Until Discontinu ed, Routine hydroCHLORO 2019-08 Yes 12.5mg 12.5 mg, Univers thiazide 0-13 Oral, ity of (ESIDRIX) 18:45: DAILY, [place] capsule 00 First dose Medica l 12.5 mg on Sun05/25/20 at 1345, Until Discontinu ed, Routine lidocaine 2019-08 2020- No 1{patch 1 Patch, Univers (LIDODERM) 005-26 } Topical, ity of 5 % (700 15:00: 07:00 Administer [place] mg/patch) 00 :00 over 12 Medical patch 1 Hours, Branch Patch ONCE, 1 dose, Sun05/25/20 at 1000, Routine doxycycline 2019-08- No 100mg 100 mg, U nivers hyclate 005-29 Oral, ity of (Vibramycin 11:00: 10:59 Q12HA2, 8 [place] ) capsule 00 :00 doses, Medical 100 mg First dose Branch on Sun05/25/20 at 0600, Last dose on Sun05/28/20 at 1800, SPENCER
Re ason for Anti-Infec tive: Documented Infection< br>Documen nava Infection Site: Blood
D uration of Therapy: 7 days vancomycin 2019-08 2020- No 1500mg 1,500 mg, Univers 1500 mg in 0-12 10-12 IV ity of NS 500 mL 19:30: 20:17 Piggyback, [place] IV 00 :08 Q24H ABX, Medical Piggyback First dose Bran ch RTU 1,500 (after mg last modificati on) on Sun05/24/20 at 1430, Until Discontinu ed
Reas on for Anti-Infec tive: Documented Infection< br>Documen nava Infection Site: Blood
D uration of Therapy: 14 days gabapentin 2019-08- No 300mg 300 mg, Un urszula (NEURONTIN) 05-25 Oral, TID, i ty of capsule 300 19:00: 13:45 First dose [place] mg 00 :19 (after Medical last Branch modificati on) on Sun05/24/20 at 1400, Until Discontinu ed, Routine magnesium 2019-08- No 4g 4 g, IV Univ ers sulfate in 05-24 Piggyback, it y of water 4 15:00: 15:03 ONCE, 1 [place] gram/50 mL 00 :00 dose, [facility] Medi josé (8 %) IV 05/24/20 Branch Piggyback 4 at 1000, g Routine Polyethylen 2019-08- No 17g 17 g, Univ ers e Glycol 05-25 Oral, ity of 3350 14:00: 13:46 DAILY, [place] (MIRALAX) 00 :08 First dose Medi josé powder 17 g on [facility] 05/24/20 at 0900, Until Discontinu ed, Routine ipratropium 2019-08- No .5mg 0.5 mg, Un urszula (ATROVENT) 05-25 Inhalation it y of 0.02 % 13:00: 14:01 , BID, [place] nebulizer 00 :13 First dose Medi josé solution (after Branch 0.5 mg last modificati on) on [facility] 05/24/20 at 0800, Until Discontinu ed, Routine melatonin 2019-08 2020- No 3mg 3 mg, Univer s (MELATIN) 05-24 Oral, ONCE ity of tablet 3 mg 06:05: 06:11 NOW, 1 [place] 00 :00 dose, [facility] 05/24/20 Branch at 0115, Routine acetaminoph 2019-08 Yes 650mg 650 mg, Un urszula en 011 Oral, ity of (TYLENOL) 17:41: Q6HPRN, [place] tablet 650 53 Starting Medic al mg Sun Branch 05/23/20 at 1241, Until Discontinu ed, Routine, Pain (scale 4-6), Temp > 38.5 C acetaminoph 2019-08 Yes 1{tbl} 1 tablet, Univers en-codeine 0-11 Oral, ity of (TYLENOL 17:41: Q6HPRN, [place] #3) 300-30 44 Starting Medic al mg tablet 1 Sun Branch tablet 05/23/20 at 1241, Until Discontinu ed, Routine, Pain (scale 7-10) vancomycin 2019-08 2020- No 1500mg 1,500 mg, Univers 1500 mg in 012 IV ity of NS 500 mL 17:24: 13:56 Piggyback, [place] IV 00 :07 Q24H ABX, Medical Piggyback First dose Bran ch RTU 1,500 (after mg last modificati on) on [place] 05/23/20 at 1230, Until Discontinu ed
Reas on for Anti-Infec tive: Documented Infection< br>Documen nava Infection Site: Blood
D uration of Therapy: 14 days metoprolol 2019-08 Yes 25mg 25 mg, Unive rs succinate 0-11 Oral, ity of XL (TOPROL 14:00: DAILY, [place] XL) tablet 00 First dose Med ical 25 mg on Sun Branch 05/23/20 at 0900, Until Discontinu ed, Routine pantoprazol 2019-08- No 40mg 40 mg, Uni vers e 005-25 Oral, ity of (PROTONIX) 14:00: 14:00 DAILY, [place] EC tablet 00 :27 First dose Medi josé 40 mg on Sun Branch 05/23/20 at 0900, Until Discontinu ed, Routine HYDROcodone 2019-08 2020- No 1{tbl} 1 tablet, Univers -acetaminop 011 11 Oral, ity of hen (NORCO 13:55: 17:42 Q6HPRN, [place] 5) 5-325 mg 49 :03 Starting Medi josé tablet 1 Sun Branch tablet 05/23/20 at 0855, Until 05/23/20 at 1242, Routine, Pain (scale 7-10) vancomycin 2019-08 2020- No 15mg/kg 1,500 mg Univers 1500 mg in 0-10 10-11 (rounded ity of NS 500 mL 17:45: 12:25 from 1,380 [place] IV 00 :20 mg = 15 Medical Piggyback mg/kg ?92 Branc h RTU 1,500 kg), IV mg Piggyback, Q24H ABX, First dose on 05/22/20 at 1245, Until Discontinu ed
Reas on for Anti-Infec tive: Documented Infection< br>Documen nava Infection Site: Blood
D uration of Therapy: 14 days KCL 2019-08 2020- No 30meq 30 mEq, IV Unive rs (POTASSIUM 0-10 10-10 Piggyback, it y of CHLORIDE) 09:30: 08:57 ONCE, 1 [place] 30 mEq in 00 :00 dose, Sat Medic al NaCl 0.9% 05/22/20 Branch (NS) at 0430, piggyback 250 mL QUEtiapine 2019-08 Yes 50mg 50 mg, Unive rs (SEROQUEL) 0-10 Oral, QHS, ity of tablet 50 02:00: First dose [place] mg 00 on [place] [facility] Medical 05/21/20 at Branch 2100, Until Discontinu ed, Routine gabapentin 2019-08- No 300mg 300 mg, Un urszula (NEURONTIN) 0-10 10-12 Oral, BID, i ty of capsule 300 01:30: 13:55 First dose [place] mg 00 :11 on [facility] Medical 05/21/20 at Branch 2030, Until Discontinu ed, Routine guaiFENesin 2019-08 Yes 200mg 200 mg, Un urszula 100 mg/5 mL 0-10 Oral, ity of solution 01:14: Q4HPRN, [place] 200 mg 34 Starting Medical Fri Branch 05/21/20 at 2014, Until Discontinu ed, Routine, Cough, Congestion perflutren 2019-08- No 3mL 3 mL, IV Un urszula protein-A 0-09 10-09 Push, ity of microsphr 17:15: 16:00 ONCE, 1 [place] (OPTISON) 00 :00 dose, Fri Medic al injection 3 05/21/20 at Br anch mL 1215, Routine lactated 2019-08- No 1000mL at 100 Univ ers ringers IV 0-09 10-14 mL/hr, ity of infusion 15:15: 14:14 1,000 mL, [place] 1,000 mL 00 :09 IV Medical Infusion, Branch CONTINUOUS , Starting Sun05/21/20 at 1015, Until Sun05/26/20 at 0914, Routine thiamine 2019-08- No 100mg IV Univers (VITAMIN 005-21 Piggyback, ity of B1) 100 mg 14:00: 14:03 DAILY, 1 [place] in NaCl 00 :00 dose, Medical 0.9% (NS) First dose Bran ch piggyback on Sun05/21/20 at 0900, 50 mL heparin 2019-08 Yes 5000U 5,000 Univers (porcine) 0- Units, ity of injection 13:00: Subcutaneo [place] 5,000 Units 00 us, Q12H, Med ical First dose Branch on Sun05/21/20 at 0800, Until Discontinu ed, Routine magnesium 2019-08- No 2g 2 g, IV Univ ers sulfate in 005-21 Piggyback, it y of water 2 07:30: 07:44 ONCE, 1 [place] gram/50 mL 00 :00 dose, Sun Medi josé (4 %) 05/21/20 at Branch infusion 2 0230, g Routine acetaminoph 2019-08- No 650mg 650 mg, U nivers en 005-23 Oral, ity of (TYLENOL) 03:52: 17:41 Q6HPRN, [place] tablet 650 10 :37 Starting Medic al mg [place] Branch 05/20/20 at 2252, Until 05/23/20 at 1241, Routine, Pain (scale 4-6), Temp > 38.5 C ipratropium 2019-08 No .5mg 0.5 mg, Un urszula (ATROVENT) 005-21 Inhalation it y of 0.02 % 03:30: 06:50 , ONCE, 1 [place] nebulizer 00 :00 dose, [place] Medic al solution 05/20/20 at [facility] h 0.5 mg 2230, Routine lactated 2019-08 2020- No 1000mL at 125 Univ ers ringers IV 0- mL/hr, ity of infusion 03:15: 15:12 1,000 mL, [place] 1,000 mL 00 :09 IV Medical Infusion, Branch CONTINUOUS , Starting [place] 05/20/20 at 2215, Until Sun05/21/20 at 1012, Routine ipratropium 2019-08- No .5mg 0.5 mg, Un urszula (ATROVENT) 0-12 Inhalation it y of 0.02 % 02:30: 12:43 , Q6HPRN, [place] nebulizer 42 :23 Starting Medica l solution [facility] 0.5 mg 05/20/20 at 2130, Until 05/24/20 at 0743, Routine, Wheezing, Shortness of Breath nystatin 2019-08 Yes Topical, Unive rs (NYSTOP) 0-09 BID, First ity o f powder 02:30: dose on [place] u Medical 05/20/20 at Branch 2130, Until Discontinu ed, Routine oxazepam 2019-08 2020- No 30mg 30 mg, Univer s (SERAX) 005-26 Oral, ity of capsule 30 02:22: 11:13 Q6HPRN, [place] mg 01 :02 Starting Medical [facility] Branch 05/20/20 at 2122, Until Sun05/26/20 at 0613, Routine, Anxiety, Hypertensi on, signs of withdrawal . Please NHO if given so taper can be started. proMETHazin 2019-08 Yes 25mg 25 mg, IV U nivers e 0 Piggyback, ity of (PHENERGAN) 02:17: Q4HPRN, [place] 25 mg in 21 Starting Medical NaCl 0.9% [facility] Branch (NS) 50 mL 05/20/20 at piggyback 2116, Until Discontinu ed, 50 mL benzocaine- 2019-08 Yes 1{lozen 1 Lozenge, Univers menthoL 0-09 ge} Oral, ity of (CEPACOL 02:16: Q4HPRN, [place] SORE THROAT 23 Starting Medi josé (MIA-MEN)) [facility] Branch lozenge 1 05/20/20 at Lozenge 2115, Until Discontinu ed, Routine, Sore throat glucagon 2019-08 Yes 1mg 1 mg, Univers (GLUCAGEN 0-09 Intramuscu ity of DIAGNOSTIC 01:51: lar, PRN, [place] KIT) 02 Starting Medical injection u Branch mg 05/20/20 at 2050, Until Discontinu ed, SPENCER, Blood Glucose < or = 70 mg/dL and patient is unable to swallow or has mental changes. dextrose 50 2019-08 Yes 25mL 25 mL, Univ ers % in water 0-09 Slow IV ity of (D50W) 01:51: Push, PRN, [place] injection 02 Starting Medica l 25 mL [place] Branch 05/20/20 at 2050, Until Discontinu ed, SPENCER, Blood Glucose < or = 70 mg/dL and patient is unable to swallow or has mental status changes. NORepinephr 2019-08- No .05ug/k 0.05-1.5 Univers ine 4 mg in 0 10-10 g/min mcg/kg/min ity of 0.9% NaCl 00:02: 23:09 ?88.8 kg [place] 250 mL 39 :54 (16.65-499 Medical infusion .5 mL/hr), Branc h RTU IV Infusion, TITRATE, MAP Goal > or = 65 mmHg, Starting [place] 05/20/20 at 1902
In itiate titration at 0.05 mcg/kg/min . &nb sp;Increas e by 0.01 mcg/kg/min every 30 seconds to 5 minutes as needed to reach and maintain goal blood pressure.& nbsp;&nbsp ;Maximum dose = 1.5 mcg/kg/min . &nb sp;If goal not maintained at maximum allowed dose, contact prescriber .
vancomycin 2019-08 No 500mg 500 mg, IV Univers (VANCOCIN) 005-20 Piggyback, it y of 500 mg in 23:30: 23:36 ONCE, 1 [place] NaCl 0.9% 00 :00 dose, [place] Medic al (NS) 100 mL 05/20/20 at Br anch piggyback 1830, 100 mL
Reas on for Anti-Infec tive: Empiric Therapy for Suspected Infection< br>Empiric Therapy Site: Blood
D uration of therapy: 7 days piperacilli 2019-08- No 2.25g 2.25 g, IV Univers n-tazobacta 0-08 10-08 Piggyback, i ty of m (ZOSYN) 23:30: 23:11 ONCE, 1 [place] 2.25 g in 00 :00 dose, [place] Medic al NaCl 0.9% 05/20/20 at Bran ch (NS) 100 mL 1830, 100 MINI-BAG mL
Reas on for Anti-Infec tive: Empiric Therapy for Suspected Infection< br>Empiric Therapy Site: Blood
D uration of therapy: 7 days NaCl 0.9% 2019-08- No 1000mL at 125 Uni vers (NS) IV 0-08 10-09 mL/hr, IV ity of infusion 21:00: 02:14 Infusion, [place] 1,000 mL 00 :18 CONTINUOUS Medic al , Starting Branch [place] 05/20/20 at 1600, Until [place] 05/20/20 at 2114, SPENCER NaCl 0.9% 2019-08- No 1000mL at 999 Uni vers (NS) bolus 0-08 10-08 mL/hr, ity of infusion 21:00: 21:52 1,000 mL, [place] 1,000 mL 00 :00 IV Medical Infusion, Branch ONCE, 1 dose, [place] 05/20/20 at 1600, SPENCER NaCl 0.9% 2019-08 2020- No 1000mL at 999 Uni vers (NS) bolus 0-08 10-08 mL/hr, ity of infusion 20:30: 22:14 1,000 mL, [place] 1,000 mL 00 :00 IV Medical Infusion, Branch ONCE, 1 dose, [place] 05/20/20 at 1530, SPENCRE NaCl 0.9% 2019-08 Yes 5mL 5 mL, Slow Un urszula (NS) 0-08 IV Push, ity of injection 5 19:43: PRN - SEE [place] mL 14 INSTRUCTIO Medical NS, Branch Starting [place] 05/20/20 at 1443, Until Discontinu ed, 10 mL gabapentin 2019-08 2020- No TAKE ONE Un urszula 800 mg 0-03 10-14 (1) ity of tablet 00:00: 00:00 TABLET(S) [place] 00 :00 BY MOUTH Medical FOUR TIMES Branch A DAY. QUEtiapine 2019-08 Yes 50mg Take 50 mg U nivers 50 mg 0-02 by mouth 2 ity of tablet 00:00: (two) [place] 00 times Medical daily. Branch QUEtiapine 2019-08 Yes 50mg Take 50 mg U nivers 50 mg 0-02 by mouth 2 ity of tablet 00:00: (two) [place] 00 times Medical daily. Branch lisinopriL- 2019- No 1{tbl} Take 1 U nivers hydrochloro 9- 10-14 tablet by it y of thiazide 00:00: 00:00 mouth [place] 20-12.5 mg 00 :00 daily. Medical per tablet Branch metaxalone 2019- No TAKE ONE Un urszula 800 mg 8 10-14 (1) ity of tablet 00:00: 00:00 TABLET(S) [place] 00 :00 BY MOUTH Medical THREE Branch TIMES A DAY. Skelaxin Skelaxin 2019- No [place] [address] [facility] 8 09-24 [facility] Pseudoeph-B Pseudoeph-B Yes [place] Take [address] [facility] romphen-DM romphen-DM 8-11 [facility]ero (Max 40 [facility] - 00:[facility]: ml/24 [facility] 00 hours) l Outpati ent Clinics Gabapentin Gabapentin Yes [place] take [...] A ent DAY Clinics NEEDED FOR ANXIETY. [place] H[place] Yes [place] TAKE ONE [facility] Carbonate Carbonate [facility] (1) [facility] - CAPSULE(S) [facility]oria BY MOUTH l THREE Outpati TIMES A ent DAY. Clinics Quetiapine Quetiapine Yes [place] take one [facility] Fumarate Fumarate [facility] -1 [facility] - tablet(s) [facility] Outpati ent Clinics Lisinopril- Lisinopril- Yes [place] [address] [facility] Hydrochloro Hydrochloro Dinero [...] l TWICE A Outpati DAY. ent Clinics Immunizations Ordered Filled Immunization Date Status Comments Sour e Immunization Name Name Influenza Virus 2018-10-07 Completed [facility] Vaccine 00:00:00 [facility] Pneumococcal 13 2018-10-07 Completed Universit y of Conjugate, PCV13 00:00:00 [facility] dical (Prevnar 13) Branch Influenza Virus 2018-10-07 Completed [facility]it y of Vaccine 00:00:00 [facility] Pneumococcal 13 2018-10-07 Completed Universit y of Conjugate, PCV13 00:00:00 [place] [facility] dical (Prevnar 13) [place] Vital Signs Vital Name Observation Time Observation Value Comments Source Systolic blood 2020-05-26 20:58:00 155 mm[Hg] Univer sity of pressure [facility] Diastolic blood 2020-05-26 20:58:00 78 mm[Hg] Unive rsity of [facility] Heart rate 2020-05-26 20:58:00 79 /min [facility] Body temperature 2020-05-26 20:58:00 37.28 Dee Dee [facility] Respiratory rate 2020-05-26 20:58:00 18 /min [facility] Oxygen saturation in 2020-05-26 20:58:00 94 /min [facility] Arterial blood by [facility] Pulse oximetry Branch Body height 2020-05-21 02:30:00 160 cm [facility] Body weight 2020-05-21 02:30:00 92 kg [facility] BMI 2020-05-21 02:30:00 35.93 kg/m2 [facility] Systolic blood 2020-05-26 20:58:00 155 mm[Hg] Univer sity of pressure [facility] Diastolic blood 2020-05-26 20:58:00 78 mm[Hg] Unive rsity of pressure [facility] Heart rate 2020-05-26 20:58:00 79 /min [facility] Body temperature 2020-05-26 20:58:00 37.28 Dee Dee [facility] Respiratory rate 2020-05-26 20:58:00 18 /min [facility] Oxygen saturation in 2020-05-26 20:58:00 94 [facility] blood by [facility] Pulse oximetry [place] Body height 2020-05-21 02:30:00 160 cm [facility] Body weight 2020-05-21 02:30:00 92 kg [facility] BMI 2020-05-21 02:30:00 35.93 kg/m2 [facility] Procedures Procedure Date / Time Performing Clinician Source Performed INSURANCE CORRESPONDENCE 2020-08-16 06:01:00 Doctor Unassigned, [facility] BASIC METABOLIC PANEL 2020-05-26 10:08:00 Merced Holm [facility] (NA, K, CL, CO2, GLUCOSE, Medica l Branch BUN, CREATININE, CA) CBC WITH DIFF 2020-05-26 10:08:00 Merced Holm [facility] MAGNESIUM 2020-05-25 08:50:00 [facility]OL[facility] 2020-05-25 08:50:00 [facility] (NA, K, CL, CO2, GLUCOSE, Medica l Branch BUN, CREATININE, CA) CBC WITH DIFF 2020-05-25 08:50:00 Merced Holm [facility] POCT GLUCOSE (AUTOMATED) 2020-05-24 22:30:00 Andrea Sandoval [facility] VANCOMYCIN RANDOM LEVEL 2020-05-24 18:50:00 Kwaku Khan [facility] MAGNESIUM 2020-05-24 09:32:00 [facility]OLIC PANEL 2020-05-24 09:32:00 Merced Holm [facility] (NA, K, CL, CO2, GLUCOSE, Medica l Branch BUN, CREATININE, CA) VANCOMYCIN RANDOM LEVEL 2020-05-24 09:32:00 Kwaku Khan [facility] VANCOMYCIN TROUGH 2020-05-23 18:05:00 Murray Bright [facility] MAGNESIUM 2020-05-23 08:59:00 Merced Holm [facility] BASIC METABOLIC PANEL 2020-05-23 08:59:00 Merced Holm [facility] (NA, K, CL, CO2, GLUCOSE, Medica l Branch BUN, CREATININE, CA) CBC WITH DIFF 2020-05-23 08:59:00 [facility] CLO[facility]FFICILE 2020-05-23 08:37:00 Keira Briceno [facility] TOXIN [facility] CBC WITHOUT DIFF 2020-05-22 15:12:00 [facility] 2020-05-22 07:22:00 Mihai [facility] BASIC METABOLIC PANEL 2020-05-22 07:22:00 Mihai [facility] (NA, K, CL, CO2, GLUCOSE, Medica l Branch BUN, CREATININE, CA) CBC WITH DIFF 2020-05-22 07:22:00 Mihai [facility] VANCOMYCIN RANDOM LEVEL 2020-05-22 02:46:00 Merced Holm [facility] BLOOD CULTURE SCREEN 2020-05-22 02:36:00 [facility]LO[facility] 2020-05-22 02:35:00 [facility] LEFT WO 2020-05-21 23:54:32 Darnell Chau [facility] CBC WITHOUT DIFF 2020-05-21 23:21:00 [facility] CREATINE KINASE 2020-05-21 20:42:00 Murray Bright [facility] ECHO ROUTINE W/DOPPLER 2020-05-21 15:19:59 Scott, Emily [facility] COLOR [facility] XR ELBOW <3 VW LEFT 2020-05-21 14:51:45 Darnell Chau [facility] XR FEMUR 2 VW LEFT 2020-05-21 14:51:45 Darnell Chau [facility] XR HUMERUS 2 VW LEFT 2020-05-21 14:51:45 Darnell Chau [facility] XR SHOULDER <2 VW LEFT 2020-05-21 14:51:45 Darnell Chau [facility] VITAMIN B1 (THIAMINE), 2020-05-21 08:31:00 [facility] WHO[facility]LO[facility] CREATINE KINASE 2020-05-21 08:30:00 Gopi Stroud [facility] MAGNESIUM 2020-05-21 08:30:[facility] 2020-05-21 08:30[facility]00 [facility] BASIC METABOLIC PANEL 2020-05-21 08:30:00 [facility] (NA, K, CL, CO2, GLUCOSE, Medica l Branch BUN, CREATININE, CA) CBC WITH DIFF 2020-05-21 08:30:00 [facility] MRSA / MSSA SCREEN BY 2020-05-21 08:30:00 [facility] PCR, [facility] XR HIPS 2 VW LEFT 2020-05-21 05:46:58 [facility] [place] [facility] 2+ VW LEFT 2020-05-21 03:22:00 [facility]AD 2020-05-21 02:53:38 Regina Leach [facility] MAGNESIUM 2020-05-21 01:41:00 [facility] TROPONIN I 2020-05-21 01:41:00 Keon Mercer [facility] HEPATIC FUNCTION PANEL 2020-05-21 01:41:00 [facility] ([id number]) (ALB,T.PRO,BILI [facility] T,BU/BC,ALT,AST,ALK PHOS) PHOSPHORUS 2020-05-20 23:33:00 Scott, [facility] CREATINE KINASE 2020-05-20 23:33:00 Emmanuelle Melgar [facility] LIPASE 2020-05-20 23:33:00 Scott, [facility] MAGNESIUM 2020-05-20 23:33:00 Scott, [facility] VITAMIN B12, LEVEL 2020-05-20 23:33:00 [facility] FOL[facility] 2020-05-20 23:33:00 [facility] THYROID STIMULATING 2020-05-20 23:33:00 Merced Holm [facility] HORMONE [facility] BASIC METABOLIC PANEL 2020-05-20 23:33:00 Irasema Garcia [facility] (NA, K, CL, CO2, GLUCOSE, Medica l Branch BUN, CREATININE, CA) CBC WITH DIFF 2020-05-20 23:33:00 [facility] 2020-05-20 23:33:00 Scott, [facility] FIBRINOGEN 2020-05-20 23:33:00 Scott, [facility] URINALYSIS 2020-05-20 23:33:00 Scott, [facility] URINE CULTURE 2020-05-20 23:33:00 Scott, [facility] CREATININE, URINE RANDOM 2020-05-20 23:33:00 [facility] UREA NITROGEN, URINE 2020-05-20 23:33:00 Scott, [facility] PROCALCITONIN 2020-05-20 23:33:00 Scott, [facility] SC INSERT NON-TUNNEL CV 2020-05-20 23:30:25 Arnel MelgarDonta [facility] ACUTE CARE VENOUS BLOOD 2020-05-20 23:01:00 Arnel MelgarDonta [facility] GAS [facility] N-TERMINAL PRO-BNP 2020-05-20 22:53:00 Emmanuelle Melgar [facility] XR CHEST 1 VW 2020-05-20 22:39:22 [facility] 2020-05-20 22:34:28 Ramón [facility] BLOOD CULTURE SCREEN 2020-05-20 22:27:00 Emmanuelle [facility] BLOOD CULTURE WORKUP 2020-05-20 22:27:00 [facility] BLOOD CULTURE WORKUP 2020-05-20 22:27:00 Emmanuelle [facility] GRAM POSITIVE BLOOD 2020-05-20 22:27:00 RamónEmmanuelle allen [facility] PATHOGENS DNA Medical Branch PROBE-ANAEROBIC EKG-12 LEAD 2020-05-20 22:24:44 Ramón, [facility] EKG-12 LEAD 2020-05-20 22:16:30 Ramón, [facility] GALV/CLC ONLY - URINE 2020-05-20 22:12:00 Ramón, [facility] DRUG (IMMUNOASSAY) - 4 ER Medica l Branch PANEL LACTIC ACID WHOLE BLOOD 2020-05-20 21:45:00 Ram[facility] 2020-05-20 21:44:28 Ramón, [facility] EKG-12 LEAD 2020-05-20 21:04:29 Ramón, [facility] COVID-19 (ID NOW RAPID 2020-05-20 20:30:00 Ramón, [facility]) [facility] CT STROKE HEAD WO 2020-05-20 20:01:49 [facility] TROPONIN I 2020-05-20 19:50:00 Ramón, [facility] BASIC METABOLIC PANEL 2020-05-20 19:50:00 [facility]Arnel [facility] (NA, K, CL, CO2, GLUCOSE, Medica l Branch BUN, CREATININE, CA) ETHANOL 2020-05-20 19:50:00 Ramón, [facility] CBC WITHOUT DIFF 2020-05-20 19:50:00 Ramón[facility]OT[facility] / INR 2020-05-20 19:50:00 [facility] ACTIVATED PARTIAL 2020-05-20 19:50:00 Ram[facility]Arnle [facility] CREATININE BLOOD 2020-05-20 19:50:00 Emmanuelle Melgar [facility] POCT GLUCOSE (AUTOMATED) 2020-05-20 19:48:00 Emmanuelle Melgar [facility] HOSPITAL ADMISSION 2020-05-20 05:01:00 Doctor Unassigned, Jose [facility] [place] [facility] Encounters Start End Encounter Admission Attending Care Care Encounter Source Date/Time Date/Time Type Type Clinicians Facility Department ID 2020-06-04 Outpatient NEW ENCCLR ENCCLR [id number] EN CCLR 14:27:33 ADMISSION 2021-06-17 2021-06-17 ambulatory [facility]ML[facility] [id number] [facility] 2021-06-06 2021-06-06 Outpatient [facility]MLC [facility] [id number] [facility] 2021-05-19 2021-05-19 Outpatient [facility]LMLC [facility]C [id number] [facility] 2021-03-17 2021-03-17 Outpatient [facility]MLC [facility] [id number] [facility] 2021-03-15 2021-03-15 Outpatient [facility]LMLC [facility] [id number] [facility] 2021-02-12 2021-02-12 Outpatient [facility]LMLC [facility]C [id number] [facility] 2021-02-11 2021-02-11 Outpatient [facility]MLC [facility] [id number] [facility] 2021-02-10 2021-02-10 Outpatient [facility]LMLC [facility]C [id number] [facility] 2021-01-27 2021-01-27 Outpatient [facility]LMLC [facility]C [id number] [facility] 2021-01-06 2021-01-06 Outpatient [facility]MLC [facility] [id number] [facility] 2020-12-30 2020-12-30 Outpatient [facility]LMLC [facility]LMLC [id number] [facility] 2020-12-17 2020-12-17 Outpatient [facility]MLC [facility] [id number] [facility] 2020-12-15 2020-12-15 Outpatient [facility]LMLC [facility] [id number] [facility] 2020-11-29 2020-11-29 Outpatient [facility]LMLC [facility] [id number] [facility] 2020-11-24 2020-11-24 Outpatient [facility]MLC [facility]C [id number] [facility] 2020-11-01 2020-11-01 Outpatient [facility]ML[facility] [id number] [facility] 2020-09-01 2020-09-01 Outpatient [facility]MLC [facility] [id number] [facility] 2020-09-01 2020-09-01 Outpatient [facility]LMLC [facility] [id number] [facility] 2020-08-19 2020-08-19 [facility] 7 [id number] Univers 10:45:00 10:45:00 Mireille Hatch M.D. [place] Denis JIMÉNEZ M.D. [facility] 2020-08-18 2020-08-18 Outpatient STLMLC [facility]LMLC [id number] [facility] 2020-08-16 2020-08-16 Orders Doctor CRISTINA [id number] 00:00:00 00:00:00 Only Unassigned, YOMI [id number] [facility] [id number] 2020-08-16 2020-08-16 Orders Doctor CRISTNIA [id number] Univers 00:00:00 00:00:00 Only Unassigned, YOMI [id number] ity of [facility] [facility] [id number] [place] [id number] [address] 2020-07-26 2020-07-26 Outpatient STLMLC STLC [id number] [facility] 2020-07-15 2020-07-15 AppointHIRA [facility] 7 [id number] [facility] 13:15:00 13:15:00 t; Mireille JIMÉNEZ M.D. [place] STEPHEN, Physici M.D. [facility] 2020-07-15 2020-07-15 Outpatient STLC STLC [id number] [facility] 2020-07-14 2020-07-14 Outpatient STLC STLC [id number] [facility] 2020-07-06 2020-07-06 Outpatient [facility]LMLC STLC [id number] [facility] 2020-07-01 2020-07-01 Outpatient [facility]LMLC STLC [id number] [facility] 2020-06-30 2020-06-30 Outpatient STLMLC STLC [id number] [facility] 2020-06-16 2020-06-16 Outpatient [facility] [id number] [facility] 2020-06-15 2020-06-15 AppointHIRA [facility] 7 [id number] [facility] 15:30:00 15:30:00 tMireille MARKS y cara STARKEY M.D. [place] Denis JIMÉNEZ M.D. [facility] 2020-06-04 2020-06-04 Outpatient [facility] [id number] [facility] 2020-05-20 2020-05-26 [facility] [id number] 14:41:00 19:55:00 Encounter Hany Regnia Daley [id number] [facility] [id number] [facility] 2020-05-20 2020-05-26 [facility] [id number] [facility] 14:41:00 19:55:00 Encounter Regina Leach [id number] [facility] [id number] [place] [id number] [address] 2020-05-20 2020-05-20 Emergency X EMMANUELLE MELGAR [facility] ERT 1 [id number] Univers 14:41:00 14:41:00 EMMANUELLE MELGAR jyotiy [facility] 2020-04-26 2020-04-26 [facility] [id number] 14:21:00 14:21:00 t [employer] [facility] 2020-04-07 2020-04-07 [facility] [id number] [facility] 08:03:00 08:03:00 t [employer] [facility] 2020-04-06 2020-04-06 [facility] [id number] 14:45:00 14:45:00 t [employer] [facility] - Drive [facility] 2020-03-23 2020-03-23 [facility] [id number] 13:45:00 13:45:00 t [employer] - eyeQ [facility] 2020-03-22 2020-03-22 [facility] [id number] 14:18:00 14:18:00 t [employer] - Drive [facility] 2020-03-18 2020-03-18 [facility] [id number] 17:11:00 17:11:00 t [employer] - eyeQ [facility] 2020-03-16 2020-03-16 [facility] [id number] 15:15:00 15:15:00 t [employer] eyeQ [facility] 2020-03-12 2020-03-12 [facility] [id number] 13:47:00 13:47:00 t [employer] eyeQ [facility] Results Test Description Test Time Test Comments Results Result Sour e Comments [U] XRAY SHOULDER 2020-08-19 Images Univers ity of MIN 2 VWS LEFT 10:48:00 acquired, not [place] [id number] reported on Physicians this accession number. [U] XRAY SHOULDER 2020-07-15 Images Univers ity of MIN 2 VWS LEFT 13:19:00 acquired, not [place] [address] reported on Physicians this accession number. [U] XRAY SHOULDER 2020-06-15 Images Univers ity of MIN 2 VWS LEFT 16:04:00 acquired, not [place] [address] reported on Physicians this accession number. CBC WITH DIFF 2020-05-26 11:06:00 Test Item Value Reference Range Interpretation Comme nts WBC (test code = 6690-2) See_Comment [A utomated message] The system which ge nerated this result transmit nava reference range: 4.30 - 1 1.10 10*3/?L. The reference r josias was not used to interpr et this result as normal/abnor mal. RBC (test code = 789-8) See_Comment L [Au tomated message] The system which [employer] nerated this result transmit nava reference range: 3.93 - 5 .25 10*6/?L. The reference r josias was not used to interpr et this result as normal/abnor mal. HGB (test code = 718-7) 8.6 g/dL 11.6-15 L HCT (test code = 4544-3) 28.0 % 35.7-45.2 L MCV (test code = 787-2) 86.7 fL 80.6-95.5 MCH (test code = 785-6) 26.6 pg 25.9-32.8 MCHC (test code = 786-4) 30.7 g/dL 31.6-35.1 L RDW-SD (test code = 23548-6) 54.4 fL 39-49.9 H RDW-CV (test code = 788-0) 17.3 % 12-15.5 H PLT (test code = 777-3) See_Comment [Au tomated message] The system which [employer] nerated this result transmit nava reference range: 166 - 35 8 10*3/?L. The reference range was not used to interpret th is result as normal/abnormal . MPV (test code = 25900-3) 9.2 fL 9.5-12.9 L NRBC/100 WBC (test code = See_Comment [ Automated message] The [id number]) system which [employer] nerated this result transmit nava reference range: 0.0 - 10 .0 /100 WBCs. The reference r josias was not used to interpr et this result as normal/abnor mal. NRBC x10^3 (test code = See_Comment [Au tomated message] The 8588075324) system which [employer] nerated this result transmit nava reference range: 10*3/?L. The reference range was not u sed to interpret this result as normal/abnormal . GRAN MAT (NEUT) % (test code 46.6 % = 770-8) IMM GRAN % (test code = 9.70 % 4368320360) LYMPH % (test code = 736-9) 22.7 % MONO % (test code = 5905-5) 19.3 % EOS % (test code = 713-8) 1.4 % BASO % (test code = 706-2) 0.3 % GRAN MAT x10^3(ANC) (test 3.06 10*3/uL 1.88-7.09 code = 3490077238) IMM GRAN x10^3 (test code = 0.64 10*3/uL 0-0.06 H 7010460039) LYMPH x10^3 (test code = 1.49 10*3/uL 1.32-3.29 731-0) MONO x10^3 (test code = 1.27 10*3/uL 0.33-0.92 H 742-7) EOS x10^3 (test code = 0.09 10*3/uL 0.03-0.39 711-2) BASO x10^3 (test code = <0.03 0.01-0.07 704-7) BASO STIPPLING (test code = Present A 703-9) POLYCHROMASIA (test code = 2+ See_Comment [Automated message] The 37988-7) system which ge nerated this result transmit nava reference range: 2+. The reference range was not used to interpret this result as garett l/abnormal. Lab Interpretation (test Abnormal code = 17117-4) [facility] METABOLIC PANEL (NA, K, CL, CO2, GLUCOSE, BUN, CREATININE, CA)2020-05-26 10:50:00 Test Item Value Reference Range Interpretation Comments NA (test code = 140 mmol/L 135-145 1784854275) K (test code = 3.5 mmol/L 3.5-5 3640500508) CL (test code = 104 mmol/L 98-108 4433269392) CO2 TOTAL (test code = 29 mmol/L 23-31 7028208746) AGAP (test code = 2-16 8396647427) BUN (test code = 40 mg/dL 7-23 H 9114576270) GLUCOSE (test code = 168 mg/dL 70-110 H 5367134431) CREATININE (test code = 1.50 mg/dL 0.5-1.04 H 3096521957) CALCIUM (test code = 8.6 mg/dL 8.6-10.6 2295469283) eGFR Calculation mL/min/1.73m2 (Non-) (test code = 1240717032) eGFR Calculation mL/min/1.73m2 () (test code = 5491428992) SANDEEP (test code = SANDEEP) Association of Glomerular Filtration Rate (GFR) and Staging of Kidney Disease* + --+ --+ ------+| GFR (mL/min/1.73 m2) ?| With Kidney Damage ?| ?Without Kidney Damage+ --------+ --------+ +| ?>90 ?| ?Stage one ?| ? Normal ?+ ---+ ---+ -------+| ?60-89 ?| ?Stage two ?| ? Decreased GFR ? + --+ --+ ------+| ?30-59 ?| ?Stage three ?| ? Stage three ? + --+ --+ ------+| ?15-29 ?| ?Stage four ? | ? Stage four ?+ ---+ ---+ -------+| ?<15 (or dialysis) ? ?| ?Stage five ? | ? Stage five ?+ ---+ ---+ -------+ *Each stage assumes the associated GFR level has been in effect for at least three months. ?Stages 1 to 5, with or without kidney disease, indicate chronic kidney disease. Notes: Determination of stages one and two (with eGFR >59mL/min/1.73 m2) requires estimation of kidney damage for at least three months as defined by structural or functional abnormalities of the kidney, manifested by either:Pathological abnormalities or Markers of kidney damage (including abnormalities in the composition of the blood or urine or abnormalities in imaging tests). Lab Interpretation Abnormal (test code = 76930-0) [facility] (THIAMINE[facility] WHOLE [id number] 18:39:00 Test Item Value Reference Range Interpretation Comments Vitamin B1, Whole 44 nmol/L 70-180 L INTERPRETI VE Blood (test code = INFORMATI ON: Vitamin 96495-3) B1, Whole Blood This assay measures the concentration o f thiamine diphos phate (TDP), the prim kallie active form of vitamin B1. Approximate ly 90 percent of melissa min B1 present in whol e blood is TDP. Thiamin e and thiamine monophosphate, which comprise the re maining 10 percent, are not measured. Test developed and characteristics determined by [facility]. S ee Compliance Stat ement B: OQVestir/CONCHITA vick d By: [employer] [place] [address] [id number] Director: Liliana Brito MD Lab Interpretation Abnormal (test code = 52203-9) [facility] METABOLIC PANEL (NA, K, CL, CO2, GLUCOSE, BUN, CREATININE, CA)2020-05-25 10:17:00 Test Item Value Reference Range Interpretation Comments NA (test code = 140 mmol/L 135-145 7993920286) K (test code = 3.8 mmol/L 3.5-5 5677086588) CL (test code = 105 mmol/L 98-108 4814412022) CO2 TOTAL (test code = 29 mmol/L 23-31 0992720554) AGAP (test code = 2-16 8283929149) BUN (test code = 47 mg/dL 7-23 H 0003485933) GLUCOSE (test code = 114 mg/dL 70-110 H 2544820559) CREATININE (test code = 1.63 mg/dL 0.5-1.04 H 4333060604) CALCIUM (test code = 9.1 mg/dL 8.6-10.6 1607689635) eGFR Calculation mL/min/1.73m2 (Non-) (test code = 8705652263) eGFR Calculation mL/min/1.73m2 () (test code = 7677714929) SANDEEP (test code = SANDEEP) Association of Glomerular Filtration Rate (GFR) and Staging of Kidney Disease* + --+ --+ ------+| GFR (mL/min/1.73 m2) ?| With Kidney Damage ?| ?Without Kidney Damage+ --------+ --------+ +| ?>90 ?| ?Stage one ?| ? Normal ?+ ---+ ---+ -------+| ?60-89 ?| ?Stage two ?| ? Decreased GFR ? + --+ --+ ------+| ?30-59 ?| ?Stage three ?| ? Stage three ? + --+ --+ ------+| ?15-29 ?| ?Stage four ? | ? Stage four ?+ ---+ ---+ -------+| ?<15 (or dialysis) ? ?| ?Stage five ? | ? Stage five ?+ ---+ ---+ -------+ *Each stage assumes the associated GFR level has been in effect for at least three months. ?Stages 1 to 5, with or without kidney disease, indicate chronic kidney disease. Notes: Determination of stages one and two (with eGFR >59mL/min/1.73 m2) requires estimation of kidney damage for at least three months as defined by structural or functional abnormalities of the kidney, manifested by either:Pathological abnormalities or Markers of kidney damage (including abnormalities in the composition of the blood or urine or abnormalities in imaging tests). Lab Interpretation Abnormal (test code = 69103-7) [facility] WITH [id number] 09:45:00 Test Item Value Reference Range Interpretation Comments WBC (test code = See_Comment [Automated 6690-2) message] The sy stem which generated this result transmitted reference range : 4.30 - 11.10 10*3/?L. The reference range was not used to interpret this result as normal/abnormal . RBC (test code = See_Comment L [Automated 789-8) message] The sy stem which generated this result transmitted reference range : 3.93 - 5.25 10*6/?L. The reference range was not used to interpret this result as normal/abnormal . HGB (test code = 9.6 g/dL 11.6-15 L 718-7) HCT (test code = 30.6 % 35.7-45.2 L 4544-3) MCV (test code = 85.0 fL 80.6-95.5 787-2) MCH (test code = 26.7 pg 25.9-32.8 785-6) MCHC (test code = 31.4 g/dL 31.6-35.1 L 786-4) RDW-SD (test code = 51.3 fL 39-49.9 H 67022-9) RDW-CV (test code = 16.7 % 12-15.5 H 788-0) PLT (test code = See_Comment [Automated 777-3) message] The sy stem which generated this result transmitted reference range : 166 - 358 10*3/ ?L. The reference r josias was not used to interpret this result as normal/abnormal . MPV (test code = 9.6 fL 9.5-12.9 06322-2) IPF % (test code = 1.9 % 1.3-7.7 Platelet count 0164463842) measured by fluorescence method. NRBC/100 WBC (test See_Comment [Automat ed code = 0252399134) message] The system which generated this result transmitted reference range : 0.0 - 10.0 /100 WBCs. The refer ence range was not u sed to interpret th is result as normal/abnormal . NRBC x10^3 (test code See_Comment [Auto mated = 2180897015) message] The s ystem which generated this result transmitted reference range : 10*3/?L. The reference range was not used to interpret this result as normal/abnormal . GRAN MAT (NEUT) % 56.7 % (test code = 770-8) IMM GRAN % (test code 6.90 % = 0717900358) LYMPH % (test code = 14.5 % 736-9) MONO % (test code = 20.2 % 5905-5) EOS % (test code = 0.9 % 713-8) BASO % (test code = 0.8 % 706-2) GRAN MAT x10^3(ANC) 4.25 10*3/uL 1.88-7.09 (test code = 8611465763) IMM GRAN x10^3 (test 0.52 10*3/uL 0-0.06 H code = 2559823498) LYMPH x10^3 (test code 1.09 10*3/uL 1.32-3.29 L = 731-0) MONO x10^3 (test code 1.52 10*3/uL 0.33-0.92 H = 742-7) EOS x10^3 (test code = 0.07 10*3/uL 0.03-0.39 711-2) BASO x10^3 (test code 0.06 10*3/uL 0.01-0.07 = 704-7) BASO STIPPLING (test Present A code = 703-9) HYPERSEG NEUTS (test Present See_Comment A [Autom ated code = 765-8) message] The s ystem which generated this result transmitted reference range : (none). The reference range was not used to interpret this result as normal/abnormal . Lab Interpretation Abnormal (test code = 56152-5) [facility]00 Test Item Value Reference Range Interpretation Comments MAGNESIUM (test code = 2105053681) 2.3 mg/dL 1.7-2.4 Lab Interpretation (test code = Normal 11202-9) [facility]2020-05-24 22:30:00 Test Item Value Reference Range Interpretation Comments POCT GLU (test code = 0718827444) 148 mg/dL 70-110 H Lab Interpretation (test code = Abnormal 06516-2) [facility] Random [id number] 20:33:00 Test Item Value Reference Range Interpretation Comments VANCO RANDOM (test code = 19.0 ug/mL 2844054203) [facility] [id number] 16:13:00 Test Item Value Reference Range Interpretation Comments Blood Culture Staphylococcus Organism william ntified Workup (test epidermidis by DNA probeFor code = 600-7) susceptibility results, refer to culture # - [id number] Gram stain Isolated from aerobic This i s an appended (test code = bottle Gram positive report. These 664-3) cocci results have be en appended to a previously preliminary ramone ified report. [facility] [id number] 11:34:00 Test Item Value Reference Range Interpretation Comments VANCO RANDOM (test code = 22.3 ug/mL 9762466061) [facility] (NA, K, CL, CO2, GLUCOSE, BUN, CREATININE, CA)2020-05-24 11:29:00 Test Item Value Reference Range Interpretation Comments NA (test code = 137 mmol/L 135-145 8670177508) K (test code = 4.5 mmol/L 3.5-5 Slight 4317487025) hemolysis CL (test code = 107 mmol/L 98-108 9115733739) CO2 TOTAL (test code 23 mmol/L 23-31 = 3547841638) AGAP (test code = 2-16 4907904727) BUN (test code = 54 mg/dL 7-23 H Slight 4501578310) hemolysis GLUCOSE (test code = 99 mg/dL 70-110 2809021260) CREATININE (test code 1.86 mg/dL 0.5-1.04 H = 7429146461) CALCIUM (test code = 8.6 mg/dL 8.6-10.6 6340829557) eGFR Calculation mL/min/1.73m2 (Non-) (test code = 2376304760) eGFR Calculation mL/min/1.73m2 () (test code = 2701975186) SANDEEP (test code = SANDEEP) Association of Glomerular Filtration Rate (GFR) and Staging of Kidney Disease* + -----+ --------+ +| GFR (mL/min/1.73 m2) ?| With Kidney Damage ?| ?Without Kidney Damage+ +------- +---- --+| ?>90 ?| ?Stage one ?| ? Normal ?+ ------+ ---------+--------- +| ?60-89 ?| ?Stage two ?| ? Decreased GFR ? + -----+ --------+ +| ?30-59 ?| ?Stage three ?| ? Stage three ? + -----+ --------+ +| ?15-29 ?| ?Stage four ? | ? Stage four ?+ ------+ ---------+--------- +| ?<15 (or dialysis) ? ?| ?Stage five ? | ? Stage five ?+ ------+ ---------+--------- + *Each stage assumes the associated GFR level has been in effect for at least three months. ?Stages 1 to 5, with or without kidney disease, indicate chronic kidney disease. Notes: Determination of stages one and two (with eGFR >59mL/min/1.73 m2) requires estimation of kidney damage for at least three months as defined by structural or functional abnormalities of the kidney, manifested by either:Pathological abnormalities or Markers of kidney damage (including abnormalities in the composition of the blood or urine or abnormalities in imaging tests). Lab Interpretation Abnormal (test code = 03169-5) [facility]2020-10-12 11:29:00 Test Item Value Reference Range Interpretation Comments MAGNESIUM (test code = 8554770740) 1.5 mg/dL 1.7-2.4 L Lab Interpretation (test code = Abnormal 46237-1) [facility] T[facility] Level - Draw within 30 minutes prior to 4TH dose.2020-05-23 19:20:00 Test Item Value Reference Range Interpretation Comments VANCO TROUGH (test code 12.1 ug/mL 06-01 = 9261602027) SANDEEP (test code = SANDEEP) Toxic Range: ?>20 ug/mL 15-20 ug/mL is recommended for severe infection or when Vancomycin PIA is greater than or equal to 2. Lab Interpretation (test Normal code = 11962-2) [facility]OSTR[facility] DIFFICILE [id number] 15:36:00 Test Item Value Reference Range Interpretation Comments Clostridioides (Clostridium) Negative Negative difficile (test code = 00719-0) Lab Interpretation (test code = Normal 27476-3) [facility] SH[facility] WO [id number] 15:02:04 Proximal humerus fracture extending through the greater tuberosity withmild impaction and posteriorfragment displacement with joint effusion.EXAM: CT SHOULDER LEFT WO CONTRAST HISTORY: Fracture, shoulder Nereida Thomas is a 59 year old female with with leftgreater tuberosity fx of the left humeruss/p fall. Please obtain CT of theleft shoulder, without contrast, with 2mm cuts and 3D reconstructions. COMPARISON: Left shoulder radiographs dated 05/21/2020 FINDINGS: Multiplanar CT imaging of the left shoulder was performed. Separate 3- Dreconstructions are submitted for analysis. A small sized glenohumeral joint effusion is present. A comminutedvertically oriented fracture extends through the lateral humeral headtraversing the horizontal facet of the greater tuberosity anteriorly withposterior lateral cortical extension throughout the base of the remaininggreater tuberosity. There is mild 6 mm posterior fragment distraction withposterior cranial caudal impaction of approximately 8 mm. No fractureextension into the lesser tuberosity is seen. No glenoid fracture is seen.Mild diffuse fatty infiltration of the musculature is consistent withsarcopenia. Vascular calcifications are present. [facility], Radiant Results Inft User - 05/23/2020 10:03 AM CDTEXAM:CT SHOULDER LEFT WO CONTRASTHISTORY:Fracture, shoulder Nereida Thomas is a 59 year old female with with leftgreater tuberosity fx of the left humerus s/p fall. Please obtain CT of theleft shoulder, without contrast, with 2mm cuts and 3D reconstructions.COMPARISON:Left shoulder radiographs dated 05/21/2020FINDINGS: Multiplanar CT imaging of the left shoulder was performed. Separate 3-Dreconstructions are submitted for analysis.A small sized glenohumeral joint effusion is present. A comminutedvertically oriented fracture extends through the lateral humeral headtraversing the horizontal facet of the greater tuberosity anteriorly withposterior lateral cortical extension throughout the base of the remaininggreater tuberosity. There is mild 6 mm posterior fragment distraction withposterior cranial caudal impaction of approximately 8 mm. No fractureextension into the lesser tuberosity is seen. No glenoid fracture is seen.Mild diffuse fatty infiltration of the musculature is consistent withsarcopenia. Vascular calcifications are present.IMPRESSIONProximal humerus fracture extending through the greater tuberosity withmild impaction and posterior fragment displacement with joint effusion.[facility] CULTURE [id number] 13:38:00 Test Item Value Reference Range Interpretation Comments Blood Culture-Aerobic Culture positive. No growth AA P revious (test code = 35879-6) See Blood prelim inary Culture Workup verified resu lt for additional was Culture I n information. Progress on 05/22/2020 at 2 CDT Blood Culture positive. No growth AA Previous Culture-Anaerobic See Blood preliminar y (test code = 52094-1) Culture Workup veri fied result for additional was Culture I n information. Progress on 05/21/2020 at 06 CDT Lab Interpretation Abnormal (test code = 50551-8) [facility] CULTURE [id number] 13:36:00 Test Item Value Reference Range Interpretation Comments Blood Culture-Aerobic Culture positive. No growth AA P revious (test code = 94063-0) See Blood prelim inary Culture Workup verified resu lt for additional was Culture I n information. Progress on 05/21/2020 at 06 01 CDT Blood Culture positive. No growth AA Previous Culture-Anaerobic See Blood preliminar y (test code = 23357-3) Culture Workup veri fied result for additional was Culture I n information. Progress on 05/21/2020 at 06 CDT Lab Interpretation Abnormal (test code = 67043-3) [facility] WITH [id number] 10:10:00 Test Item Value Reference Range Interpretation Comments WBC (test code = See_Comment [Automated 6690-2) message] The sy stem which generated this result transmitted reference range : 4.30 - 11.10 10*3/?L. The reference range was not used to interpret this result as normal/abnormal . RBC (test code = See_Comment L [Automated 789-8) message] The sy stem which generated this result transmitted reference range : 3.93 - 5.25 10*6/?L. The reference range was not used to interpret this result as normal/abnormal . HGB (test code = 8.2 g/dL 11.6-15 L 718-7) HCT (test code = 25.8 % 35.7-45.2 L 4544-3) MCV (test code = 84.0 fL 80.6-95.5 787-2) MCH (test code = 26.7 pg 25.9-32.8 785-6) MCHC (test code = 31.8 g/dL 31.6-35.1 786-4) RDW-SD (test code = 48.9 fL 39-49.9 28235-3) RDW-CV (test code = 15.9 % 12-15.5 H 788-0) PLT (test code = See_Comment L [Automated 777-3) message] The sy stem which generated this result transmitted reference range : 166 - 358 10*3/ ?L. The reference r josias was not used to interpret this result as normal/abnormal . MPV (test code = 10.2 fL 9.5-12.9 22254-5) NRBC/100 WBC (test See_Comment [Automat ed code = 7813656404) message] The system which generated this result transmitted reference range : 0.0 - 10.0 /100 WBCs. The refer ence range was not u sed to interpret th is result as normal/abnormal . NRBC x10^3 (test code See_Comment [Auto mated = 4377422377) message] The s ystem which generated this result transmitted reference range : 10*3/?L. The reference range was not used to interpret this result as normal/abnormal . GRAN MAT (NEUT) % 64.1 % (test code = 770-8) IMM GRAN % (test code 5.10 % = 2968148152) LYMPH % (test code = 20.9 % 736-9) MONO % (test code = 8.4 % 5905-5) EOS % (test code = 1.1 % 713-8) BASO % (test code = 0.4 % 706-2) GRAN MAT x10^3(ANC) 2.88 10*3/uL 1.88-7.09 (test code = 2117472566) IMM GRAN x10^3 (test 0.23 10*3/uL 0-0.06 H code = 7991248355) LYMPH x10^3 (test code 0.94 10*3/uL 1.32-3.29 L = 731-0) MONO x10^3 (test code 0.38 10*3/uL 0.33-0.92 = 742-7) EOS x10^3 (test code = 0.05 10*3/uL 0.03-0.39 711-2) BASO x10^3 (test code <0.03 0.01-0.07 = 704-7) TOXIC CHANGES (test Present A code = 803-7) Lab Interpretation Abnormal (test code = 72885-0) [facility] METABOLIC PANEL (NA, K, CL, CO2, GLUCOSE, BUN, CREATININE, CA)2020-05-23 09:52:00 Test Item Value Reference Range Interpretation Comments NA (test code = 134 mmol/L 135-145 L 3390512105) K (test code = 3.5 mmol/L 3.5-5 4989139578) CL (test code = 104 mmol/L 98-108 4603030739) CO2 TOTAL (test code = 22 mmol/L 23-31 L 1004675016) AGAP (test code = 2-16 1072633090) BUN (test code = 55 mg/dL 7-23 H 3580397586) GLUCOSE (test code = 142 mg/dL 70-110 H 1914694616) CREATININE (test code = 2.04 mg/dL 0.5-1.04 H 6339259089) CALCIUM (test code = 8.3 mg/dL 8.6-10.6 L 5633097805) eGFR Calculation mL/min/1.73m2 (Non-) (test code = 6047857096) eGFR Calculation mL/min/1.73m2 () (test code = 7899420348) SANDEEP (test code = SANDEEP) Association of Glomerular Filtration Rate (GFR) and Staging of Kidney Disease* + --+ --+ ------+| GFR (mL/min/1.73 m2) ?| With Kidney Damage ?| ?Without Kidney Damage+ --------+ --------+ +| ?>90 ?| ?Stage one ?| ? Normal ?+ ---+ ---+ -------+| ?60-89 ?| ?Stage two ?| ? Decreased GFR ? + --+ --+ ------+| ?30-59 ?| ?Stage three ?| ? Stage three ? + --+ --+ ------+| ?15-29 ?| ?Stage four ? | ? Stage four ?+ ---+ ---+ -------+| ?<15 (or dialysis) ? ?| ?Stage five ? | ? Stage five ?+ ---+ ---+ -------+ *Each stage assumes the associated GFR level has been in effect for at least three months. ?Stages 1 to 5, with or without kidney disease, indicate chronic kidney disease. Notes: Determination of stages one and two (with eGFR >59mL/min/1.73 m2) requires estimation of kidney damage for at least three months as defined by structural or functional abnormalities of the kidney, manifested by either:Pathological abnormalities or Markers of kidney damage (including abnormalities in the composition of the blood or urine or abnormalities in imaging tests). Lab Interpretation Abnormal (test code = 81341-3) [facility]2020-[facility]11 09:52:00 Test Item Value Reference Range Interpretation Comments MAGNESIUM (test code = 8906053964) 1.8 mg/dL 1.7-2.4 Lab Interpretation (test code = Normal 77202-6) [facility] WITHOUT [id number] 15:23:00 Test Item Value Reference Range Interpretation Comments WBC (test code = 6690-2) See_Comment [A utomated message] The system [employer] generated this result transmit nava reference range : 4.30 - 11.10 10*3/?L. The reference range was not used to interpret this result as normal/abnormal . RBC (test code = 789-8) See_Comment L [Au tomated message] The system [employer] generated this result transmit nava reference range : 3.93 - 5.25 10* 6/?L. The reference r josias was not used to interpret this result as normal/abnormal . HGB (test code = 718-7) 8.5 g/dL 11.6-15 L HCT (test code = 4544-3) 27.0 % 35.7-45.2 L MCH (test code = 785-6) 26.6 pg 25.9-32.8 MCV (test code = 787-2) 84.6 fL 80.6-95.5 MCHC (test code = 786-4) 31.5 g/dL 31.6-35.1 L PLT (test code = 777-3) See_Comment L [Au tomated message] The system [facility] generated this result transmit nava reference range : 166 - 358 10*3/?L. The reference range was not used to interpret this result as normal/abnormal . MPV (test code = 10.2 fL 9.5-12.9 68112-0) RDW-CV (test code = 15.6 % 12-15.5 H 788-0) RDW-SD (test code = 48.3 fL 39-49.9 49618-8) NRBC x10^3 (test code = See_Comment [Au tomated message] 4241969003) The system [employer] generated this result transmit nava reference range : 10*3/?L. The reference range was not used to interpret this result as normal/abnormal . NRBC/100 WBC (test code See_Comment [Au tomated message] = 4682417820) The system [facility] generated this result transmit nava reference range : 0.0 - 10.0 /100 WBC s. The reference r josias was not used to interpret this result as normal/abnormal . IPF % (test code = 5265829794) Lab Interpretation (test Abnormal code = 45305-1) [facility] METABOLIC PANEL (NA, K, CL, CO2, GLUCOSE, BUN, CREATININE, CA)2020-05-22 08:05:00 Test Item Value Reference Range Interpretation Comments NA (test code = 134 mmol/L 135-145 L 4643035893) K (test code = 3.3 mmol/L 3.5-5 L 5812153409) CL (test code = 103 mmol/L 98-108 7034811893) CO2 TOTAL (test code = 23 mmol/L 23-31 9976416480) AGAP (test code = 2-16 8200313469) BUN (test code = 57 mg/dL 7-23 H 1670864021) GLUCOSE (test code = 130 mg/dL 70-110 H 4143123738) CREATININE (test code = 2.26 mg/dL 0.5-1.04 H 9748958932) CALCIUM (test code = 8.0 mg/dL 8.6-10.6 L 8213516929) eGFR Calculation mL/min/1.73m2 (Non-) (test code = 0522471647) eGFR Calculation mL/min/1.73m2 () (test code = 3534709811) SANDEEP (test code = SANDEEP) Association of Glomerular Filtration Rate (GFR) and Staging of Kidney Disease* + --+ --+ ------+| GFR (mL/min/1.73 m2) ?| With Kidney Damage ?| ?Without Kidney Damage+ --------+ --------+ +| ?>90 ?| ?Stage one ?| ? Normal ?+ ---+ ---+ -------+| ?60-89 ?| ?Stage two ?| ? Decreased GFR ? + --+ --+ ------+| ?30-59 ?| ?Stage three ?| ? Stage three ? + --+ --+ ------+| ?15-29 ?| ?Stage four ? | ? Stage four ?+ ---+ ---+ -------+| ?<15 (or dialysis) ? ?| ?Stage five ? | ? Stage five ?+ ---+ ---+ -------+ *Each stage assumes the associated GFR level has been in effect for at least three months. ?Stages 1 to 5, with or without kidney disease, indicate chronic kidney disease. Notes: Determination of stages one and two (with eGFR >59mL/min/1.73 m2) requires estimation of kidney damage for at least three months as defined by structural or functional abnormalities of the kidney, manifested by either:Pathological abnormalities or Markers of kidney damage (including abnormalities in the composition of the blood or urine or abnormalities in imaging tests). Lab Interpretation Abnormal (test code = 24347-3) [facility] 08:05:00 Test Item Value Reference Range Interpretation Comments MAGNESIUM (test code = 0402797370) 2.4 mg/dL 1.7-2.4 Lab Interpretation (test code = Normal 26687-2) [facility] WITH [id number] 07:44:00 Test Item Value Reference Range Interpretation Comments WBC (test code = See_Comment [Automated 6690-2) message] The sy stem which generated this result transmitted reference range : 4.30 - 11.10 10*3/?L. The reference range was not used to interpret this result as normal/abnormal . RBC (test code = See_Comment L [Automated 789-8) message] The sy stem which generated this result transmitted reference range : 3.93 - 5.25 10*6/?L. The reference range was not used to interpret this result as normal/abnormal . HGB (test code = 8.6 g/dL 11.6-15 L 718-7) HCT (test code = 27.1 % 35.7-45.2 L 4544-3) MCV (test code = 84.4 fL 80.6-95.5 787-2) MCH (test code = 26.8 pg 25.9-32.8 785-6) MCHC (test code = 31.7 g/dL 31.6-35.1 786-4) RDW-SD (test code = 48.8 fL 39-49.9 73196-3) RDW-CV (test code = 15.9 % 12-15.5 H 788-0) PLT (test code = See_Comment L [Automated 777-3) message] The sy stem which generated this result transmitted reference range : 166 - 358 10*3/ ?L. The reference r josias was not used to interpret this result as normal/abnormal . MPV (test code = 10.2 fL 9.5-12.9 17341-5) NRBC/100 WBC (test See_Comment [Automat ed code = 7757128036) message] The system which generated this result transmitted reference range : 0.0 - 10.0 /100 WBCs. The refer ence range was not u sed to interpret th is result as normal/abnormal . NRBC x10^3 (test code See_Comment [Auto mated = 3104751050) message] The s ystem which generated this result transmitted reference range : 10*3/?L. The reference range was not used to interpret this result as normal/abnormal . GRAN MAT (NEUT) % 78.8 % (test code = 770-8) IMM GRAN % (test code 1.10 % = 3444020297) LYMPH % (test code = 12.3 % 736-9) MONO % (test code = 6.5 % 5905-5) EOS % (test code = 1.2 % 713-8) BASO % (test code = 0.1 % 706-2) GRAN MAT x10^3(ANC) 7.21 10*3/uL 1.88-7.09 H (test code = 7993283842) IMM GRAN x10^3 (test 0.10 10*3/uL 0-0.06 H code = 8613037346) LYMPH x10^3 (test code 1.12 10*3/uL 1.32-3.29 L = 731-0) MONO x10^3 (test code 0.59 10*3/uL 0.33-0.92 = 742-7) EOS x10^3 (test code = 0.11 10*3/uL 0.03-0.39 711-2) BASO x10^3 (test code <0.03 0.01-0.07 = 704-7) Lab Interpretation Abnormal (test code = 19396-8) [facility] POSITIVE BLO[facility] PATHOGENS DNA [id number] 06:07:00 Test Item Value Reference Range Interpretation Comments Coagulase Negative Positive Negative, See A Staphylococcus (test Comment/Narrative code = 12866-4) SANDEEP (test code = SANDEEP) Coagulase negative Staphylococcus (CoNS) detected by DNA probe. ?CoNS often contaminate blood cultures from skin colonization during phlebotomy. ?Preferred management is to repeat blood cultures, and monitor off antibiotics. ?Contamination is suggested by culture growth after 48 hours, or growth in single culture (i.e., one of two sets). ?True bacteremia is suggested by the fever, hypotension, and leukocytosis that are not explained by an alternative infection, or indwelling foreign devices that appear infected (catheters, lines, or prostheses). Consider Infectious Diseases consultation if differentiation of CoNS bacteremia from contamination is uncertain. If clinical context suggests true bacteremia, preferred therapy is vancomycin. Please contact the Antimicrobial Stewardship Program with questions.Pager: ?[phone] Testing included eleven identification and three resistance marker targets. Lab Interpretation Abnormal (test code = 65363-7) [facility] Random [id number] 04:46:00 Test Item Value Reference Range Interpretation Comments VANCO RANDOM (test code = 8953796730) <5.0 ug/mL [facility] WITHOUT [id number] 23:31:00 Test Item Value Reference Range Interpretation Comments WBC (test code = 6690-2) See_Comment [A utomated message] The system [employer] generated this result transmit nava reference range : 4.30 - 11.10 10*3/?L. The reference range was not used to interpret this result as normal/abnormal . RBC (test code = 789-8) See_Comment L [Au tomated message] The system [employer] generated this result transmit nava reference range : 3.93 - 5.25 10* 6/?L. The reference r josias was not used to interpret this result as normal/abnormal . HGB (test code = 718-7) 9.4 g/dL 11.6-15 L HCT (test code = 4544-3) 29.6 % 35.7-45.2 L MCH (test code = 785-6) 26.7 pg 25.9-32.8 MCV (test code = 787-2) 84.1 fL 80.6-95.5 MCHC (test code = 786-4) 31.8 g/dL 31.6-35.1 PLT (test code = 777-3) See_Comment L [Au tomated message] The system [employer] generated this result transmit nava reference range : 166 - 358 10*3/?L. The reference range was not used to interpret this result as normal/abnormal . MPV (test code = 10.5 fL 9.5-12.9 14237-9) RDW-CV (test code = 16.0 % 12-15.5 H 788-0) RDW-SD (test code = 49.4 fL 39-49.9 52578-1) NRBC x10^3 (test code = <0.01 See_Comment [Au tomated message] [id number]) The system Osm[employer] generated this result transmit nava reference range : 10*3/?L. The reference range was not used to interpret this result as normal/abnormal . NRBC/100 WBC (test code See_Comment [Au tomated message] = 5210799904) The system Astrid generated this result transmit nava reference range : 0.0 - 10.0 /100 WBC s. The reference r josias was not used to interpret this result as normal/abnormal . IPF % (test code = 7318535131) Lab Interpretation (test Abnormal code = 29781-6) [facility] [id number] 21:30:00 Test Item Value Reference Range Interpretation Comments CK (test code = 6085266097) 2974 U/L 33-194 H Lab Interpretation (test code = Abnormal 38726-4) [facility] [id number] 20:54:00 Test Item Value Reference Range Interpretation Comments CK (test code = 4220293453) 4670 U/L 33-194 H Lab Interpretation (test code = Abnormal 73926-9) [facility] [id number] 20:43:00 Test Item Value Reference Range Interpretation Comments URINE CULTURE (test No aerobic growth (< code = 630-4) 1000 CFU/mL) [facility]PO[facility] [id number] 19:00:00 Test Item Value Reference Range Interpretation Comments POCT Creatinine (test code = 7.4 mg/dL 0.5-1.1 H 2023697939) Lab Interpretation (test code = Abnormal 91665-4) [facility] MSSA Screen by PCR, [id number] 16:40:00 Test Item Value Reference Range Interpretation Comments MSSA Screen by PCR, Positive Negative A Nares (test code = 03065-3) MRSA/MSSA Positive? Yes No A (test code = 4031094064) SANDEEP (test code = SANDEEP) A positive test result does not necessarily indicate the presence of viable organism. Lab Interpretation (test Abnormal code = 42281-4) [facility] HUMERUS 2 VW [id number] 15:55:36 Stable appearing greater tuberosity fracture. 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 EXAM: XR HUMERUS 2 VW LEFT, EXAM: XR SHOULDER <2 VW LEFT, EXAM: XR ELBOW <3VW LEFT, EXAM: XR FEMUR 2 VW LEFT HISTORY: left GT fx of humerus Please obtain AP and lateral of theleft humerus. COMPARISON: Shoulder radiographs dated 05/20/2020 FINDINGS: Imaging of the left femur demonstrates patchy circumscribed lucencysurrounded by sclerosis at the level of the lateral femoral condylemeasuring 4.5 cm in sagittal dimension. Alignment of the hip and knee isanatomic and no acute fracture is seen. There is a questionable left kneejoint effusion with swelling surrounding the knee.Images of the shoulder, elbow and humerus redemonstrate a comminutedfracture extending through the greater tuberosity with mild caudaldisplacement of the fracture fragments which collectively measure 4.3 cm ingreatest craniocaudal dimension. The humeral head remains centralizedwithin the glenoid fossa. No other fracture is seen. [facility], Radiant Results Inft User - 05/21/2020 10:56 AM CDTEXAM:XR HUMERUS2 VW LEFT,EXAM:XR SHOULDER <2 VW LEFT,EXAM:XR ELBOW <3 VW LEFT,EXAM:XR FEMUR 2 VW LEFTHISTORY:left GT fx of humerus Please obtain AP and lateral of the left humerus.COMPARISON:Shoulder radiographs dated 05/20/2020FINDINGS: Imaging of the left femur demonstrates patchy circumscribed lucencysurrounded by sclerosis at the level of the lateral femoral condylemeasuring 4.5 cm in sagittal dimension. Alignment of the hip and knee isanatomic and no acute fracture is seen. There is a questionable left kneejoint effusion with swelling surrounding the knee.Images of the shoulder, elbow and humerus redemonstrate a comminutedfracture extending through the greater tuberosity with mild caudaldisplacement ofthe fracture fragments which collectively measure 4.3 cm ingreatest craniocaudal dimension. The humeral head remains centralizedwithin the glenoid fossa. 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.[facility] ELBOW <3 VW [id number] 15:55:36 Stable appearing greater tuberosity fracture. Lateral femoral condyle avascular necrosis versus oste ochondral defect. EXAM: XR HUMERUS 2 VW LEFT, EXAM: XR SHOULDER <2 VW LEFT, EXAM: XR ELBOW <3VW LEFT, EXAM: XR FEMUR 2 VW LEFT HISTORY: left GT fx of humerus Please obtain AP and lateral of theleft humerus. COMPARISON: Shoulder radiographs dated 05/20/2020 FINDINGS: Imaging of the left femur demonstrates patchy circumscribed lucencysurrounded by sclerosis at the level of the lateral femoral condylemeasuring 4.5 cm in sagittal dimension. Alignment of the hip and knee isanatomic and no acute fracture is seen. There is a questionable left kneejoint effusion with swelling surrounding the knee.Images of the shoulder, elbow and humerus redemonstrate a comminutedfracture extending through the gr eater tuberosity with mild caudaldisplacement of the fracture fragments which collectively measure 4.3 cm ingreatest craniocaudal dimension. The humeral head remains centralizedwithin the glenoid fossa. No other fracture is seen. [facility], Radiant Results Inft User - 05/21/2020 10:56 AM CDTEXAM:XR HUMERUS2 VW LEFT,EXAM:XR SHOULDER <2 VW LEFT,EXAM:XR ELBOW <3 VW LEFT,EXAM:XR FEMUR 2 VW LEFTHISTORY:left GT fx of humerus Please obtain AP and lateral of the left humerus.COMPARISON:Shoulder radiographs dated 05/20/2020FINDINGS: Imaging of the left femur demonstrates patchy circumscribed lucencysurrounded by sclerosis at the level of the lateral femoral condylemeasuring 4.5 cm in sagittal dimension. Alignment of the hip and knee isanatomic and no acute fracture is seen. There is a questionable left kneejoint effusion with swelling surrounding the knee.Images of the shoulder, elbow and humerus redemonstrate a comminutedfracture extending through the greater tuberosity with mild caudaldisplacement ofthe fracture fragments which collectively measure 4.3 cm ingreatest craniocaudal dimension. The humeral head remains centralizedwithin the glenoid fossa. 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.[facility] <2 VW [id number] 15:55:36 Stable appearing greater tuberosity fracture. 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 EXAM: XR HUMERUS 2 VW LEFT, EXAM: XR SHOULDER <2 VW LEFT, EXAM: XR ELBOW <3VW LEFT, EXAM: XR FEMUR 2 VW LEFT HISTORY: left GT fx of humerus Please obtain AP and lateral of theleft humerus. COMPARISON: Shoulder radiographs dated 05/20/2020 FINDINGS: Imaging of the left femur d emonstrates patchy circumscribed lucencysurrounded by sclerosis at the level of the lateral femoral condylemeasuring 4.5 cm in sagittal dimension. Alignment of the hip and knee isanatomic and no acute fracture is seen. There is a questionable left kneejoint effusion with swelling surrounding the knee.Images of the shoulder, elbow and humerus redemonstrate a comminutedfracture extending through the greater tuberosity with mild caudaldisplacement of the fracture fragments which collectively measure 4.3 cm ingreatest craniocaudal dimension. The humeral head remains centralizedwithin the glenoid fossa. No other fracture is seen. [facility], Radiant Results Inft User - 05/21/2020 10:56 AM CDTEXAM:XR HUMERUS2 VW LEFT,EXAM:XR SHOULDER <2 VW LEFT,EXAM:XR ELBOW <3 VW LEFT,EXAM:XR FEMUR 2 VW LEFTHISTORY:left GT fx of humerus Please obtain AP and lateral of the left humerus.COMPARISON:Shoulder radiographs dated 05/20/2020FINDINGS: Imaging of the left femur demonstrates patchy circumscribed lucencysurrounded by sclerosis at the level of the lateral femoral condylemeasuring 4.5 cm in sagittal dimension. Alignment of the hip and knee isanatomic and no acute fracture is seen. There is a questionable left kneejoint effusion with swelling surrounding the knee.Images of the shoulder, elbow and humerus redemonstrate a comminutedfracture extending through the greater tuberosity with mild caudaldisplacement ofthe fracture fragments which collectively measure 4.3 cm ingreatest craniocaudal dimension. The humeral head remains centralizedwithin the glenoid fossa. 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 Lateral femoral condyle avascular necrosis versus oste ochondral defect. EXAM: XR HUMERUS 2 VW LEFT, EXAM: XR SHOULDER <2 VW LEFT, EXAM: XR ELBOW <3VW LEFT, EXAM: XR FEMUR 2 VW LEFT HISTORY: left GT fx of humerus Please obtain AP and lateral of theleft humerus. COMPARISON: Shoulder radiographs dated 05/20/2020 FINDINGS: Imaging of the left femur demonstrates patchy circumscribed lucencysurrounded by sclerosis at the level of the lateral femoral condylemeasuring 4.5 cm in sagittal dimension. Alignment of the hip and knee isanatomic and no acute fracture is seen. There is a questionable left kneejoint effusion with swelling surrounding the knee.Images of the shoulder, elbow and humerus redemonstrate a comminutedfracture extending through the gr eater tuberosity with mild caudaldisplacement of the fracture fragments which collectively measure 4.3 cm ingreatest craniocaudal dimension. The humeral head remains centralizedwithin the glenoid fossa. No other fracture is seen. [facility], Radiant Results Inft User - 05/21/2020 10:56 AM CDTEXAM:XR HUMERUS2 VW LEFT,EXAM:XR SHOULDER <2 VW LEFT,EXAM:XR ELBOW <3 VW LEFT,EXAM:XR FEMUR 2 VW LEFTHISTORY:left GT fx of humerus Please obtain AP and lateral of the left humerus.COMPARISON:Shoulder radiographs dated 05/20/2020FINDINGS: Imaging of the left femur demonstrates patchy circumscribed lucencysurrounded by sclerosis at the level of the lateral femoral condylemeasuring 4.5 cm in sagittal dimension. Alignment of the hip and knee isanatomic and no acute fracture is seen. There is a questionable left kneejoint effusion with swelling surrounding the knee.Images of the shoulder, elbow and humerus redemonstrate a comminutedfracture extending through the greater tuberosity with mild caudaldisplacement ofthe fracture fragments which collectively measure 4.3 cm ingreatest craniocaudal dimension. The humeral head remains centralizedwithin the glenoid fossa. 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.[facility]HEPAT[facility] FUNCTION PAN[facility] (73753) (ALB,T.PRO,BILI T,BU/BC,ALT,AST,ALK PHOS)2020-05-21 13:04:00 Test Item Value Reference Range Interpretation Comments TOTAL BILI (test code = 6897758198) 0.7 mg/dL 0.1-1.1 BILI UNCON (test code = 6457814745) 0.6 mg/dL 0.1-1.1 BILI CONJ (test code = 8385625001) 0.0 mg/dL 0-0.3 T PROTEIN (test code = 4183666750) 5.5 g/dL 6.3-8.2 L ALBUMIN (test code = 6354639259) 2.8 g/dL 3.5-5 L ALK PHOS (test code = 7637033357) 66 U/L 34-122 ALTv (test code = 1742-6) 30 U/L 5-35 AST(SGOT) (test code = 5666954940) 163 U/L 13-40 H Lab Interpretation (test code = Abnormal 53833-1) [facility]+ VW [id number] 10:30:08 Greater tuberosity fracture. EXAM: XR HIPS 2 VW LEFT, EXAM: XR SHOULDER 2+ VW LEFT HISTORY: Hip pain COMPARISON: None FINDINGS: Imaging of the left hip demonstrates maintenance of alignment. Surgicalsuture projects over the pelvis. Hip joint spaces are preserved. Minimalmedial hip joint space narrowing is seen. A right femoral vascular sheathis in place. Images of the left shoulder demonstrate a vertically oriented displacedfracture extending through the greater tuberosity with minimal caudaldistraction of the fracture fragment. Alignment of the shoulder girdlearticulations is anatomic. Lower cervical spine uncovertebral and facetarthropathy with spondylosis are partially visualized. [facility], Radiant Results Inft User - 05/21/2020 5:31 AM CDTEXAM:XR HIPS 2 VW LEFT,EXAM:XR SHOULDER 2+ VW LEFTHISTORY:Hip pain COMPARISON:NoneFINDINGS: Imaging of the left hip demonstrates maintenance of alignment.Surgicalsuture projects over the pelvis. Hip joint spaces are preserved. Minimalmedial hip joint space narrowing is seen. A right femoral vascular sheathis in place.Images of the left shoulder demonstrate a vertically oriented displacedfracture extending through the greater tuberosity with minimal caudaldistraction of the fracture fragment. Alignment of the shoulder girdlearticulations is anatomic. Lo wer cervical spine uncovertebral and facetarthropathy with spondylosis are partially visualized.IMPRESSIONGreater tuberosity fracture.[facility] H[facility] 2 VW [id number] 10:30:08 Greater tuberosity fracture. EXAM: XR HIPS 2 VW LEFT, EXAM: XR SHOULDER 2+ VW LEFT HISTORY: Hip pain COMPARISON: None FINDINGS: Imaging of the left hip demonstrates maintenance of alignment. Surgicalsuture projects over the pelvis. Hip joint spaces are preserved. Minimalmedial hip joint space narrowing is seen. A right femoral vascular sheathis in place. Images of the left shoulder demonstrate a vertically oriented displacedfracture extending through the greater tuberosity with minimal caudaldistraction of the fracture fragment. Alignment of the shoulder girdlearticulations is anatomic. Lower cervical spine uncovertebral and facetarthropathy with spondylosis are partially visualized. [facility], Radiant Results Inft User - 05/21/2020 5:31 AM CDTEXAM:XR HIPS 2 VW LEFT,EXAM:XR SHOULDER 2+ VW LEFTHISTORY:Hip pain COMPARISON:NoneFINDINGS: Imaging of the left hip demonstrates maintenance of alignment.Surgicalsuture projects over the pelvis. Hip joint spaces are preserved. Minimalmedial hip joint space narrowing is seen. A right femoral vascular sheathis in place.Images of the left shoulder demonstrate a vertically oriented displacedfracture extending through the greater tuberosity with minimal caudaldistraction of the fracture fragment. Alignment of the shoulder girdlearticulations is anatomic. Lower cervical spine uncovertebral and facetarthropathy with spondylosis are partially visualized.IMPRESSIONGreater tuberosity fracture.[facility] WITH [id number] 09:30:00 Test Item Value Reference Range Interpretation Comments WBC (test code = See_Comment H [Automated 6690-2) message] The sy stem which generated this result transmitted reference range : 4.30 - 11.10 10*3/?L. The reference range was not used to interpret this result as normal/abnormal . RBC (test code = See_Comment L [Automated 789-8) message] The sy stem which generated this result transmitted reference range : 3.93 - 5.25 10*6/?L. The reference range was not used to interpret this result as normal/abnormal . HGB (test code = 10.5 g/dL 11.6-15 L 718-7) HCT (test code = 33.6 % 35.7-45.2 L 4544-3) MCV (test code = 85.7 fL 80.6-95.5 787-2) MCH (test code = 26.8 pg 25.9-32.8 785-6) MCHC (test code = 31.3 g/dL 31.6-35.1 L 786-4) RDW-SD (test code = 49.7 fL 39-49.9 11857-9) RDW-CV (test code = 15.9 % 12-15.5 H 788-0) PLT (test code = See_Comment L [Automated 777-3) message] The sy stem which generated this result transmitted reference range : 166 - 358 10*3/ ?L. The reference r josias was not used to interpret this result as normal/abnormal . MPV (test code = 10.3 fL 9.5-12.9 00537-0) NRBC/100 WBC (test See_Comment [Automat ed code = 7241044309) message] The system which generated this result transmitted reference range : 0.0 - 10.0 /100 WBCs. The refer ence range was not u sed to interpret th is result as normal/abnormal . NRBC x10^3 (test code See_Comment [Auto mated = 3496160452) message] The s ystem which generated this result transmitted reference range : 10*3/?L. The reference range was not used to interpret this result as normal/abnormal . GRAN MAT (NEUT) % 85.4 % (test code = 770-8) IMM GRAN % (test code 0.80 % = 5262540050) LYMPH % (test code = 7.7 % 736-9) MONO % (test code = 5.8 % 5905-5) EOS % (test code = 0.2 % 713-8) BASO % (test code = 0.1 % 706-2) GRAN MAT x10^3(ANC) 9.49 10*3/uL 1.88-7.09 H (test code = 6049776461) IMM GRAN x10^3 (test 0.09 10*3/uL 0-0.06 H code = 3720939272) LYMPH x10^3 (test code 0.86 10*3/uL 1.32-3.29 L = 731-0) MONO x10^3 (test code 0.65 10*3/uL 0.33-0.92 = 742-7) EOS x10^3 (test code = <0.03 0.03-0.39 L 711-2) BASO x10^3 (test code <0.03 0.01-0.07 = 704-7) BANDS (test code = Increased A 0400377951) Lab Interpretation Abnormal (test code = 59015-4) [facility]2020-[facility]-09 09:26:00 Test Item Value Reference Range Interpretation Comments MAGNESIUM (test code = 9794912509) 9.7 mg/dL 1.7-2.4 H Lab Interpretation (test code = Abnormal 48599-6) [facility] METABOLIC PANEL (NA, K, CL, CO2, GLUCOSE, BUN, CREATININE, CA)2020-05-21 09:13:00 Test Item Value Reference Range Interpretation Comments NA (test code = 132 mmol/L 135-145 L 7271656658) K (test code = 3.9 mmol/L 3.5-5 9597658579) CL (test code = 104 mmol/L 98-108 8496462833) CO2 TOTAL (test code = 15 mmol/L 23-31 L 3140915436) AGAP (test code = 2-16 2958731347) BUN (test code = 62 mg/dL 7-23 H 1578582141) GLUCOSE (test code = 114 mg/dL 70-110 H 9122401221) CREATININE (test code = 4.07 mg/dL 0.5-1.04 H 3836693133) CALCIUM (test code = 7.5 mg/dL 8.6-10.6 L 5741670651) eGFR Calculation mL/min/1.73m2 (Non-) (test code = 9077214212) eGFR Calculation mL/min/1.73m2 () (test code = 1069343407) SANDEEP (test code = SANDEEP) Association of Glomerular Filtration Rate (GFR) and Staging of Kidney Disease* + --+ --+ ------+| GFR (mL/min/1.73 m2) ?| With Kidney Damage ?| ?Without Kidney Damage+ --------+ --------+ +| ?>90 ?| ?Stage one ?| ? Normal ?+ ---+ ---+ -------+| ?60-89 ?| ?Stage two ?| ? Decreased GFR ? + --+ --+ ------+| ?30-59 ?| ?Stage three ?| ? Stage three ? + --+ --+ ------+| ?15-29 ?| ?Stage four ? | ? Stage four ?+ ---+ ---+ -------+| ?<15 (or dialysis) ? ?| ?Stage five ? | ? Stage five ?+ ---+ ---+ -------+ *Each stage assumes the associated GFR level has been in effect for at least three months. ?Stages 1 to 5, with or without kidney disease, indicate chronic kidney disease. Notes: Determination of stages one and two (with eGFR >59mL/min/1.73 m2) requires estimation of kidney damage for at least three months as defined by structural or functional abnormalities of the kidney, manifested by either:Pathological abnormalities or Markers of kidney damage (including abnormalities in the composition of the blood or urine or abnormalities in imaging tests). Lab Interpretation Abnormal (test code = 46094-2) [facility]TR[facility]ERKUSH [id number] 09:13:00 Test Item Value Reference Range Interpretation Comments TROPONIN I (test 0.113 ng/mL See_Comment H [Automated code = 2229648755) message] The system which generated this result transmitted reference range : <=0.034. The reference range was not used to interpret this result as normal/abnormal . SANDEEP (test code = Equal or Less than SANDEEP) 0.034 ng/ml---Normal ?Note: Cardiac troponin begins to rise 3-4 hours after the onset of ischemia. Repeat in 4-6 hours if the sample was drawn within 3-4 hours of the onset of the symptom and found normal. Between 0.035 and 0.120 ng/mL--- Borderline. Questionable myocardial injury or necrosis ? ?Note: Serial measurement may be necessary to confirm or exclude the diagnosis of myocardial injury or necrosis; Clinical correlation (symptoms, EKGs, imaging studies, and others) required; Repeat in 4-6 hours if clinically indicated. ? Equal or Higher than 0.121 ng/mL---Abnormal. Myocardial Injury or Necrosis Likely ? Biotin has been reported to cause a negative bias, interpret results relative to patient's use of biotin. ? Lab Interpretation Abnormal (test code = 42656-7) [facility]IT[facility] B12, [id number] 05:54:00 Test Item Value Reference Range Interpretation Comments VIT B12 (test code = 352 pg/mL 240-930 1886217016) SANDEEP (test code = SANDEEP) Biotin has been reported to cause a positive bias, interpret results relative to patient's use of biotin. Lab Interpretation (test Normal code = 12783-3) [facility]OL[facility]2020-10-09 05:54:00 Test Item Value Reference Range Interpretation Comments FOLATE SER (test code = 1191474181) 9.5 ng/mL 3-20 Lab Interpretation (test code = Normal 36691-0) [facility]2020-10-09 04:48:00 Test Item Value Reference Range Interpretation Comments MAGNESIUM (test code = 1030810285) 1.7 mg/dL 1.7-2.4 Lab Interpretation (test code = Normal 63743-8) [facility]oundTHYROID STIMULATING [id number] 04:04:00 Test Item Value Reference Range Interpretation Comments TSH (test code = See_Comment [Automated message] 3178626688) The system [employer] generated this result transmitted ref erence range: 0.45 - 4 .70 mIU/L. The refe rence range was not u sed to interpret this result as normal/abnor mal. Lab Interpretation (test Normal code = 34120-9) [facility]CREATINE [id number] 03:33:00 Test Item Value Reference Range Interpretation Comments CK (test code = 2745441664) 6736 U/L 33-194 H Lab Interpretation (test code = Abnormal 28934-9) [facility]oundTROPONIN [id number] 02:39:00 Test Item Value Reference Range Interpretation Comments TROPONIN I (test 0.113 ng/mL See_Comment H [Automated code = 3219601845) message] The system which generated this result transmitted reference range : <=0.034. The reference range was not used to interpret this result as normal/abnormal . SANDEEP (test code = Equal or Less than SANDEEP) 0.034 ng/ml---Normal ?Note: Cardiac troponin begins to rise 3-4 hours after the onset of ischemia. Repeat in 4-6 hours if the sample was drawn within 3-4 hours of the onset of the symptom and found normal. Between 0.035 and 0.120 ng/mL--- Borderline. Questionable myocardial injury or necrosis ? ?Note: Serial measurement may be necessary to confirm or exclude the diagnosis of myocardial injury or necrosis; Clinical correlation (symptoms, EKGs, imaging studies, and others) required; Repeat in 4-6 hours if clinically indicated. ? Equal or Higher than 0.121 ng/mL---Abnormal. Myocardial Injury or Necrosis Likely ? Biotin has been reported to cause a negative bias, interpret results relative to patient's use of biotin. ? Lab Interpretation Abnormal (test code = 77857-4) [facility]2020-[facility]-09 00:55:00 Test Item Value Reference Range Interpretation Comments APPEARANCE (test code = Cloudy Clear A 3595262777) COLOR (test code = Riri Yellow A 2981788379) PH (test code = 4.8-8.0 2384303158) SP GRAVITY (test code = 1.003-1.030 9817786485) GLU U QUAL (test code = 50 mg/dL Normal A 8351765638) BLOOD (test code = 3+ Negative A 4891212359) KETONES (test code = 5 mg/dL Negative A 9261454761) PROTEIN (test code = 100 mg/dL Negative A 2887-8) UROBILIN (test code = Normal Normal 9835379176) BILIRUBIN (test code = Negative Negative 3923085357) NITRITE (test code = Negative Negative 3133920812) LEUK SPIKE (test code = Negative Negative 4674310312) RBC/HPF (test code = See_Comment [Autom ated message] 2320338311) The system [employer] generated this result transmit nava reference range : 0 - 3 HPF. The refe rence range was not u sed to interpret th is result as normal/abnormal . WBC/HPF (test code = See_Comment [Autom ated message] 0813165851) The system [employer] generated this result transmit nava reference range : 0 - 5 HPF. The refe rence range was not u sed to interpret th is result as normal/abnormal . BACTERIA (test code = Few Negative A 3772097486) MUCOUS (test code = Moderate Negative LPF A 5131603588) SQ EPITH (test code = See_Comment H [Auto mated message] 5191710841) The system [employer] generated this result transmit nava reference range : <=2 HPF. The refere nce range was not u sed to interpret th is result as normal/abnormal . HYAL CAST (test code = See_Comment H [Aut omated message] [id number]) The system [employer] generated this result transmit nava reference range : <=2 LPF. The refere nce range was not u sed to interpret th is result as normal/abnormal . Lab Interpretation (test Abnormal code = 74829-0) [facility]00 Test Item Value Reference Range Interpretation Comments LIPASE (test code = 1707736230) 3911 U/L 0-220 H Lab Interpretation (test code = Abnormal 68995-7) [facility]PROCALCITONIN2020-10-09 00:37:00 Test Item Value Reference Range Interpretation Comments Procalcitonin (test 4.99 ng/mL <0.07 H code = 0419383369) SANDEEP (test code = SANDEEP) INTERPRETATION OF PROCALCITONIN RESULTS IN ADULTS >= 18 YEARS OF AGE Initiation and discontinuation of antibiotics on patients with suspected or confirmed Lower Respiratory Tract Infection in Adults >= 18 years of age. + +-------- --------+ + -----+|Procalcitonin |Interpretation ?|Antibiotic ? ? |Considerations ? |ng/mL ? | ?|recommendation | ? + +-------- --------+ + -----+| <0.1 ? | Bacterial ? ? ?| Strongly ? ? ?| ? | ?| infection very | discouraged ? | Overruling: ? | ?| unlikely ? ? ? | ? | ? Clinically unstable ? ? ? + +-------- --------+ + ? High risk for adverse ? ? | <0.25 ?| Bacterial ? ? ?| Discouraged ? | ? outcome ? | ?| infection ? ? ?| ? | ? SEE IMPORTANT NOTE ?| ?| unlikely ? ? ? | ? | ? + +-------- --------+ + -----+| >=0.25 ? ? ? | Bacterial ? ? ?| Encouraged ? ?| ? | ?| infection ? ? ?| ? | ? | ?| likely ? | ? | Consider treatment failure ?+ +------- ---------+ -+ if levels does not decrease | >0.5 ? | Bacterial ? ? ?| Strongly ? ? ?| appropriately ? | ?| infection very | encouraged ? ?| ? | ?| likely ? | ? | ? + +-------- --------+ + -----+ Discontinuation of antibiotics in high-acuity patients with suspected or confirmed sepsis in Adults >= 18 years of age. + +-------- --------+ + -----+|Procalcitonin |Interpretation ?|Antibiotic ? ? |Considerations ? |ng/mL ? | ?|recommendation | ? + +-------- --------+ + -----+| <0.25 ?| Bacterial ? ? ?| Strongly ? ? ?| ? | ?| infection very | discouraged ? | Overruling: ? | ?| unlikely ? ? ? | ? | ? Clinically unstable ? ? ? + +-------- --------+ + ? High risk for adverse ? ? | <0.5 or drop | Bacterial ? ? ?| Discouraged ? | ? outcome ? | >80% from ? ?| infection ? ? ?| ? | ? SEE IMPORTANT NOTE ?| highest PCT ?| unlikely ? ? ? | ? | ? | level ?| ?| ? | ? + +-------- --------+ + -----+| >=0.5 ?| Bacterial ? ? ?| Encouraged ? ?| ? | ?| infection ? ? ?| ? | ? | ?| likely ? | ? | Consider treatment failure ?+ +------- ---------+ -+ if levels does not decrease | >1.0 ? | Bacterial ? ? ?| Strongly ? ? ?| appropriately ? | ?| infection very | encouraged ? ?| ? | ?| likely ? | ? | ? + +-------- --------+ + -----+ Percentage of drop of Procalcitonin calculation for Discontinuation of antibiotics in high-acuity patients with suspected or confirmed sepsis in Adults >= 18 years of age. ? Procalcitonin highest{}-Procalcitonin current{}Delta Procalcitonin = x100% ? Procalcitonin current {} IMPORTANT NOTE: Procalcitonin may be elevated without bacterial infection by physiologic stress related to trauma, mendez, chronic dialysis, metastatic cancer, surgery in the past seven days, malaria, some fungal infections, and some forms of vasculitis. The interpretation algorithm may not apply to patients with immunosuppression (equivalent of >10 mg of prednisone daily), HIV with CD4 cell count < 350 cells/mm3, active malignancy on systemic chemotherapy, solid organ transplant or hematopoietic stem cell transplantation, or hospital acquired pneumonia. Additionally, some clinical trials of procalcitonin have excluded patients with shock requiring vasopressor use, acute respiratory failure requiring mechanical ventilation, or those with known lung abscess/empyema. For further information please refer to:[email or web address] Lab Interpretation Abnormal (test code = 37103-6) [facility]MAGNESIUM2020-10-09 00:18:00 Test Item Value Reference Range Interpretation Comments MAGNESIUM (test code = 5309451166) 1.8 mg/dL 1.7-2.4 Lab Interpretation (test code = Normal 80632-4) [facility]OS[facility]US2020-10-09 00:18:00 Test Item Value Reference Range Interpretation Comments PHOSPHORUS (test code = 5671571482) 3.1 mg/dL 2.5-5 Lab Interpretation (test code = Normal 39524-8) [facility]BASI METABOLIC PANEL (NA, K, CL, CO2, GLUCOSE, BUN, CREATININE, CA)2020-05-21 00:18:00 Test Item Value Reference Range Interpretation Comments NA (test code = 132 mmol/L 135-145 L 5166572067) K (test code = 4.2 mmol/L 3.5-5 0701322616) CL (test code = 103 mmol/L 98-108 2352962255) CO2 TOTAL (test code = 16 mmol/L 23-31 L 1571178868) AGAP (test code = 2-16 3690059436) BUN (test code = 66 mg/dL 7-23 H 0693566529) GLUCOSE (test code = 113 mg/dL 70-110 H 8000720737) CREATININE (test code = 5.17 mg/dL 0.5-1.04 H 1067435721) CALCIUM (test code = 7.2 mg/dL 8.6-10.6 L 6950663517) eGFR Calculation mL/min/1.73m2 (Non-) (test code = 6958575502) eGFR Calculation mL/min/1.73m2 () (test code = 4452583786) SANDEEP (test code = SANDEEP) Association of Glomerular Filtration Rate (GFR) and Staging of Kidney Disease* + --+ --+ ------+| GFR (mL/min/1.73 m2) ?| With Kidney Damage ?| ?Without Kidney Damage+ --------+ --------+ +| ?>90 ?| ?Stage one ?| ? Normal ?+ ---+ ---+ -------+| ?60-89 ?| ?Stage two ?| ? Decreased GFR ? + --+ --+ ------+| ?30-59 ?| ?Stage three ?| ? Stage three ? + --+ --+ ------+| ?15-29 ?| ?Stage four ? | ? Stage four ?+ ---+ ---+ -------+| ?<15 (or dialysis) ? ?| ?Stage five ? | ? Stage five ?+ ---+ ---+ -------+ *Each stage assumes the associated GFR level has been in effect for at least three months. ?Stages 1 to 5, with or without kidney disease, indicate chronic kidney disease. Notes: Determination of stages one and two (with eGFR >59mL/min/1.73 m2) requires estimation of kidney damage for at least three months as defined by structural or functional abnormalities of the kidney, manifested by either:Pathological abnormalities or Markers of kidney damage (including abnormalities in the composition of the blood or urine or abnormalities in imaging tests). Lab Interpretation Abnormal (test code = 69987-9) [facility] MoundD-[id number] 23:55:00 Test Item Value Reference Interpretation Comments Range D-DIMER (test code = See_Comment H [Autom ated 8795693737) message] The system which generated this result transmitted reference range : <0.50 ?g/mL (FEU). The reference range was not used to interpret this result as normal/abnormal . SANDEEP (test code = This test may be SANDEEP) used in conjunction with a clinical pretest probability (PTP) assessment model to exclude venous thromboembolism (VTE) in patients suspected of deep venous thrombosis (DVT) and pulmonary embolism (PE) A D-Dimer value less than 0.50 ?g/ml (FEU) has a negative predicative value of 96 to 100% (95% CI)and 97 to 100% (95% CI) as an aid in the diagnosis of deep vein thrombosis (DVT) and pulmonary embolism when there is low or moderate pretest probability of PE or DVT. D-Dimer values are expressed in initial fibrinogen equivalent units (FEU)" The assay results should be used with other information, including the clinical context, in forming a diagnosis. Lab Interpretation Abnormal (test code = 07634-5) [facility]oundFIBRINOGEN2020-10-08 23:55:00 Test Item Value Reference Range Interpretation Comments Fibrinogen (test code = 6795727644) 389 mg/dL 167-453 Lab Interpretation (test code = Normal 98881-9) [facility]oundCREATININE, URINE [id number] 23:53:00 Test Item Value Reference Range Interpretation Comments CREAT U (test code = 4417558796) 101.7 mg/dL [facility]oundUREA NITROGEN, URINE [id number] 23:53:00 Test Item Value Reference Range Interpretation Comments UREA N UR (test code = 6073084724) 301 mg/dL [facility]oundCBC WITH [id number] 23:49:00 Test Item Value Reference Range Interpretation Comments WBC (test code = See_Comment [Automated 6690-2) message] The sy stem which generated this result transmitted reference range : 4.30 - 11.10 10*3/?L. The reference range was not used to interpret this result as normal/abnormal . RBC (test code = See_Comment L [Automated 789-8) message] The sy stem which generated this result transmitted reference range : 3.93 - 5.25 10*6/?L. The reference range was not used to interpret this result as normal/abnormal . HGB (test code = 10.0 g/dL 11.6-15 L 718-7) HCT (test code = 30.7 % 35.7-45.2 L 4544-3) MCV (test code = 84.1 fL 80.6-95.5 787-2) MCH (test code = 27.4 pg 25.9-32.8 785-6) MCHC (test code = 32.6 g/dL 31.6-35.1 786-4) RDW-SD (test code = 47.8 fL 39-49.9 60136-7) RDW-CV (test code = 15.8 % 12-15.5 H 788-0) PLT (test code = See_Comment L [Automated 777-3) message] The sy stem which generated this result transmitted reference range : 166 - 358 10*3/ ?L. The reference r josias was not used to interpret this result as normal/abnormal . MPV (test code = 9.6 fL 9.5-12.9 89367-2) NRBC/100 WBC (test See_Comment [Automat ed code = 6273628865) message] The system which generated this result transmitted reference range : 0.0 - 10.0 /100 WBCs. The refer ence range was not u sed to interpret th is result as normal/abnormal . NRBC x10^3 (test code See_Comment [Auto mated = 2130337302) message] The s ystem which generated this result transmitted reference range : 10*3/?L. The reference range was not used to interpret this result as normal/abnormal . GRAN MAT (NEUT) % 85.9 % (test code = 770-8) IMM GRAN % (test code 1.10 % = 6868088701) LYMPH % (test code = 7.3 % 736-9) MONO % (test code = 5.6 % 5905-5) EOS % (test code = 0.0 % 713-8) BASO % (test code = 0.1 % 706-2) GRAN MAT x10^3(ANC) 8.16 10*3/uL 1.88-7.09 H (test code = 5651054953) IMM GRAN x10^3 (test 0.10 10*3/uL 0-0.06 H code = 3968537001) LYMPH x10^3 (test code 0.69 10*3/uL 1.32-3.29 L = 731-0) MONO x10^3 (test code 0.53 10*3/uL 0.33-0.92 = 742-7) EOS x10^3 (test code = <0.03 0.03-0.39 L 711-2) BASO x10^3 (test code <0.03 0.01-0.07 = 704-7) Lab Interpretation Abnormal (test code = 46163-7) [facility]XR CHEST 1 [id number] 23:46:21 Bilateral interstitial prominence most prominent within the lower lungfields concerning for underlying interstitial edema and central vascularcongestion. Atypical infection can have similar appearance. Correlateclinically and consider checking BNP. Preliminary Report Dictated by Resident: Dustin Olsen MD., have reviewed this study and agree with theabove report.XR CHEST 1 VW HISTORY: 59 years-old; Female; cough COMPARISON: None Technique: Single AP view of the chest. FINDINGS: Prominent bilateral hilar and interstitial vascular congestion. Streakyopacity is seen about the left lower lung. No focal consolidation. There isno pleural effusion or pneumothorax. The cardiomediastinal silhouette is normal. No acute osseous abnormality is identified. Resuscitation pads projectoverthe chest. [facility], Radiant Results Inft User - 05/20/2020 6:47 PM CDTXR CHEST 1 VWHISTORY: 59 years-old; Female; cough COMPARISON: NoneTechnique: Single AP view of the chest.FINDINGS:Prominent bilat eral hilar and interstitial vascular congestion. Streakyopacity is seen about the left lower lung. No focal consolidation. There isno pleural effusion or pneumothorax.The cardiomediastinal silhouette is normal.No acute osseous abnormality is identified. Resuscitation pads project overthe chest.IMPRESSI ONBilateral interstitial prominence most prominent within the lower lungfields concerning for underlying interstitial edema and central vascularcongestion. Atypical infection can have similar appearance. Correlateclinically and consider checking BNP.Preliminary Report Dictated by Resident: Dustin Stout MD., have reviewed this study and agree with theabove report. [facility]oundCentral [id number] 23:30:25Emmanuelle Melgar DO ? ? 05/20/2020 ?6:30 PMCentral LinePerformed by: Emmanuelle Melgar DOAuthorized by: Emmanuelle Melgar DO Consent: ?Consent obtained: ?Verbal ?Consent given by: ?Patient ?Risks discussed: ?Arterial puncture, incorrect placement, nerve damage, infection and bleedingPre-procedure details: ?Hand hygiene: Hand hygiene performed prior to insertion ? ?Sterile barrier technique: All elementsof maximal sterile technique followed ? ?Skin preparation: ?2% chlorhexidine and ChloraPrep ?Skin preparation agent: Skin preparation agent completely dried prior to procedure ?Anesthesia (see MAR for exact dosages): ?Anesthesia method: ?Local infiltration ?Local anesthetic: ?Lidocaine 1% WITH epiProcedure details: ?Location: ?R femoral ?Patient position: ?Flat ?Procedural supplies: ?Triple lumen ?Landmarks identified: yes ? ?Ultrasound guidance: yes ? ?Number of attempts: ?2 ?Successful placement: yes ?Post-procedure details: ?Post- procedure: ?Dressing applied and line sutured ?Assessment: ?Blood return through all ports and free fluid flow ?Patient tolerance of procedure: ?Tolerated well, no immediate complicationsUnCHI St. Luke's Health [facility]os[facility] HospitalN-TERMINAL PRO-BNP 2020-05-20 23:28:00 Test Item Value Reference Range Interpretation Comments NT-proBNP (test code 53535 pg/mL See_Comment H [Autom ated = 8195587102) message] The system which generated this result transmitted reference range : <=125. The reference range was not used to interpret this result as normal/abnormal . SANDEEP (test code = SANDEEP) Biotin has been reported to cause a negative bias, interpret results relative to patient's use of biotin. Lab Interpretation Abnormal (test code = 81180-8) [facility] VENOUS BLOOD [id number] 23:13:00 Test Item Value Reference Range Interpretation Comments PH (test code = 7.32-7.42 LL 5641662265) PCO2 MASTER (test code = See_Comment [Auto mated message] 6512428016) The system [employer] generated this result transmitted ref erence range: 41 - 51 mmHg. The reference r josias was not used to interpret this result as normal/abnor mal. PO2 MASTER (test code = See_Comment H [Autom ated message] 4415136392) The system [employer] generated this result transmitted ref erence range: 25 - 40 mmHg. The reference r josias was not used to interpret this result as normal/abnor mal. HCO3 MASTER (test code = See_Comment L [Auto mated message] 1949349366) The system [employer] generated this result transmitted ref erence range: 24 - 28 mEq/L. The reference r josias was not used to interpret this result as normal/abnor mal. AC VBE(BEAKER) (test mEq/L code = 6596230243) Lab Interpretation (test Abnormal code = 58826-8) [facility]oundDrug Screen [id number] 22:50:00 Test Item Value Reference Range Interpretation Comments AMPHET (test code = Negative Negative 5481961133) Cocaine Metabolite (test Negative Negative code = 8545975004) OPIATES (test code = Negative Negative 6289665913) THC (test code = Negative Negative 5177319190) SANDEEP (test code = SANDEEP) Urine Drug Cutoff Ranges Amphetamine: ? 1,000 ng/mLCocaine: ? 150 ng/mLOpiates: ? 300 ng/mLCannabinoids: ?50 ng/mL The results are to be used only for medical (i.e., treatment) purposes. Unconfirmed screening results must not be used for non-medical purposes (e.g., employment testing, legal testing). Lab Interpretation (test Normal code = 10899-2) [facility]oundLactic Acid Whole [id number] 21:52:00 Test Item Value Reference Range Interpretation Comments LACTIC ACID (test code = 1.91 mmol/L 9720176917) [facility] MoundEthanol [id number] 21:21:00 Test Item Value Reference Range Interpretation Comments ALCOHOL (test code = <10 mg/dL 0222123812) SANDEEP (test code = Toxic Greater than or SANDEEP) equal to 80 mg/dL. NOTE: Whole blood values are approximately 10% to 15% lower than serum and plasma. [facility]oundCOVID-19 (ID NOW RAPID TESTING)2020-05-20 20:58:00 Test Item Value Reference Range Interpretation Comments SARS-CoV-2 Rapid ID NOW Not Detected Not Detected (test code = 24226-7) SANDEEP (test code = SANDEEP) ID NOW COVID-19 Assay is an isothermal nucleic acid amplification test intended for the qualitative detection of nucleic acid from SARS-CoV-2 viral RNA in nasopharyngeal ([employer]) specimens. It is used under Emergency Use Authorization (EUA) by FDA. The limit of detection (LOD) of the assay is 125 Genome Equivalents/mL. A positive result is indicative of the presence of SARS-CoV-2 RNA. ?Clinical correlation with patient history and other diagnostic information is necessary to determine patient infection status. A negative (Not Detected) result does not preclude SARS-CoV-2 infection. In patients with clinical symptoms and other tests that are consistent with SARS-CoV-2 infection, negative results should be treated as presumptive negative and a new specimen should be tested with alternative PCR molecular test. Invalid: Please collect a new specimen for repeat patient testing if clinically indicated. Lab Interpretation Normal (test code = 54711-3) [facility]oundCT STROKE HEAD WO [id number] 20:47:16 Mild asymmetry in the cerebral sulci with more prominent sulci noted on theleft. This is nonspecific and could reflect chronic, asymmetric left-sidedvolume loss. There is no evidence of acute intracranial abnormality such as subduralhematoma. Mild right-sided cerebral edema could potentially contribute tothis appearance but this is considered unlikely. If clinical concern persists, an MRI could be obtained for more sensitiveevaluation Preliminary Report Dictated by Resident: Raffi Browning Report change ICristina reviewed this study and agree with the above reportwith the following minormodifications, no overt evidence of acuteintracranial abnormality. ICristina MD., have reviewed this study and agree with theabove report.CT STROKE HEAD WO CONTRAST HISTORY: 59 years-old Female presenting with Stroke, follow up Strokesuspected, focal neuro deficit, < 6 hrs. Patient complains of left-sidedsided weakness and confusion. Patient fell a few days ago. COMPARISON: None TECHNIQUE: Noncontrast CT imaging of the head was performed and coronal andsagittal reconstructions were obtained and reviewed. FINDINGS: The ventricles are normal in caliber and configuration. There does appearto be mild asymmetry in the left convexity sulci and sylvian fissurerelative to the right. However, no midline shift or pathologicalextra-axial fluid collection is present. No hydrocephalus is noted. Thebasal cisterns are unremarkable. No acute intracranial hemorrhage or mass effect. No parenchymal attenuation abnormality is present. The broussard-white matterdifferentiation is preserved. The mastoid air cells and paranasal air sinuses are clear. The calvariumand central skull base are unremarkable. [facility], Radiant Results Inft User - 05/20/2020 3:48 PM CDTCT STROKE HEAD WO CONTRASTHISTORY: 59 years-old Female presenting with Stroke, follow up Strokesuspected, focal neuro deficit, < 6 hrs. Patient complains of left- sidedsided weakness and confusion. Patient fell a few days ago.COMPARISON: None TECHNIQUE: Noncontrast CT imaging of the head was performed and coronal andsagittal reconstructions were obtained and reviewed.FINDINGS:The ventricles are normal in caliber and configuration. There does appearto be mild asymmetry in the left convexity sulci and sylvian fissurerelative to the right. However, no midline shift or pathologicalextra-axial fluid collection is present. No hydrocephalus is noted. Thebasal cisterns are unremarkable.No acute intracranial hemorrhage or mass effect.No parenchymalattenuation abnormality is present. The broussard-white matterdifferentiation is preserved.The mastoid air cells and paranasal air sinuses are clear. The calvariumand central skull base are unremarkable.IMPRESSIONMild asymmetry in the cerebral sulci with more prominent sulci noted on theleft. This is nonspecific and could reflect chronic, asymmetric left-sidedvolume loss.There is no evidence of acute intracranial abnormality such as subduralhematoma. Mild right-sided cerebral edema could potentially contribute tothis appearance but this is considered unlikely.If clinical concern persists, an MRI could be obtained for more sensitiveevaluationPreliminary Report Dictated by Resident: Cristina Casinao reviewed this study and agree with the above reportwith the following minormodifications, no overt evidence of acuteintracranial abnormality.I, Cristina Vegas MD., have reviewed this study and agree with theabove report.[facility] I - Code [id number] 20:20:00 Test Item Value Reference Range Interpretation Comments TROPONIN I (test 0.136 ng/mL See_Comment H [Automated code = 7136781362) message] The system which generated this result transmitted reference range : <=0.034. The reference range was not used to interpret this result as normal/abnormal . SANDEEP (test code = Equal or Less than SANDEEP) 0.034 ng/ml---Normal ?Note: Cardiac troponin begins to rise 3-4 hours after the onset of ischemia. Repeat in 4-6 hours if the sample was drawn within 3-4 hours of the onset of the symptom and found normal. Between 0.035 and 0.120 ng/mL--- Borderline. Questionable myocardial injury or necrosis ? ?Note: Serial measurement may be necessary to confirm or exclude the diagnosis of myocardial injury or necrosis; Clinical correlation (symptoms, EKGs, imaging studies, and others) required; Repeat in 4-6 hours if clinically indicated. ? Equal or Higher than 0.121 ng/mL---Abnormal. Myocardial Injury or Necrosis Likely ? Biotin has been reported to cause a negative bias, interpret results relative to patient's use of biotin. ? Lab Interpretation Abnormal (test code = 12222-6) [facility] (NA, K, CL, CO2, Glucose, BUN, Creatinine, CA) - Code [id number] 20:09:00 Test Item Value Reference Range Interpretation Comments NA (test code = 126 mmol/L 135-145 L 7137128995) K (test code = 5.7 mmol/L 3.5-5 H Slight 9971993399) hemolysis CL (test code = 92 mmol/L 98-108 L 5670506305) CO2 TOTAL (test code 13 mmol/L 23-31 L = 0336019618) AGAP (test code = 2-16 H 9503898878) BUN (test code = 74 mg/dL 7-23 H Slight 3862342637) hemolysis GLUCOSE (test code = 175 mg/dL 70-110 H 2844055581) CREATININE (test code 6.72 mg/dL 0.5-1.04 H = 3818741406) CALCIUM (test code = 8.9 mg/dL 8.6-10.6 9107722438) eGFR Calculation mL/min/1.73m2 (Non-) (test code = 2564709833) eGFR Calculation mL/min/1.73m2 () (test code = 6060658514) SANDEEP (test code = SANDEEP) Association of Glomerular Filtration Rate (GFR) and Staging of Kidney Disease* + -----+ --------+ +| GFR (mL/min/1.73 m2) ?| With Kidney Damage ?| ?Without Kidney Damage+ +------- +---- --+| ?>90 ?| ?Stage one ?| ? Normal ?+ ------+ ---------+--------- +| ?60-89 ?| ?Stage two ?| ? Decreased GFR ? + -----+ --------+ +| ?30-59 ?| ?Stage three ?| ? Stage three ? + -----+ --------+ +| ?15-29 ?| ?Stage four ? | ? Stage four ?+ ------+ ---------+--------- +| ?<15 (or dialysis) ? ?| ?Stage five ? | ? Stage five ?+ ------+ ---------+--------- + *Each stage assumes the associated GFR level has been in effect for at least three months. ?Stages 1 to 5, with or without kidney disease, indicate chronic kidney disease. Notes: Determination of stages one and two (with eGFR >59mL/min/1.73 m2) requires estimation of kidney damage for at least three months as defined by structural or functional abnormalities of the kidney, manifested by either:Pathological abnormalities or Markers of kidney damage (including abnormalities in the composition of the blood or urine or abnormalities in imaging tests). Lab Interpretation Abnormal (test code = 09181-3) [facility] / [facility] - Code [id number] 20:06:00 Test Item Value Reference Range Interpretation Comments PROTIME PATIENT (test See_Comment L [Auto mated message] code = 5964-2) The system [employer] generated this result transmitted ref erence range: 10.1 - 1 2.6 Seconds. The reference range was not used to int erpret this result as normal/abnormal . INR (test code = 6301-6) Nor mal INR <1.1; Warfarin Therap eutic range 2.0 to 3. 0 or 2.5 to 3.5, dep ending upon the indica tions. Lab Interpretation (test Abnormal code = 47506-1) [facility]PTT2020-[facility] 20:05:00 Test Item Value Reference Range Interpretation Comments APTT Patient (test code = See_Comment [ Automated message] 3173-2) The system [employer] generated this result transmitted ref erence range: 26 - 36 Seconds. The re ference range was not u sed to interpret this result as normal/abnor mal. Lab Interpretation (test Normal code = 81714-2) [facility] without Diff - Code [id number] 19:57:00 Test Item Value Reference Range Interpretation Comments WBC (test code = 6690-2) See_Comment H [A utomated message] The system [employer] generated this result transmit nava reference range : 4.30 - 11.10 10*3/?L. The reference range was not used to interpret this result as normal/abnormal . RBC (test code = 789-8) See_Comment [Au tomated message] The system [employer] generated this result transmit nava reference range : 3.93 - 5.25 10* 6/?L. The reference r josias was not used to interpret this result as normal/abnormal . HGB (test code = 718-7) 11.0 g/dL 11.6-15 L HCT (test code = 4544-3) 34.0 % 35.7-45.2 L MCH (test code = 785-6) 26.7 pg 25.9-32.8 MCV (test code = 787-2) 82.5 fL 80.6-95.5 MCHC (test code = 786-4) 32.4 g/dL 31.6-35.1 PLT (test code = 777-3) See_Comment L [Au tomated message] The system [employer] generated this result transmit nava reference range : 166 - 358 10*3/?L. The reference range was not used to interpret this result as normal/abnormal . MPV (test code = 10.9 fL 9.5-12.9 94467-2) RDW-CV (test code = 15.9 % 12-15.5 H 788-0) RDW-SD (test code = 48.2 fL 39-49.9 52304-2) NRBC x10^3 (test code = See_Comment [Au tomated message] [id number]) The system [employer] generated this result transmit nava reference range : 10*3/?L. The reference range was not used to interpret this result as normal/abnormal . NRBC/100 WBC (test code See_Comment [Au tomated message] = 1055842639) The system [employer] generated this result transmit nava reference range : 0.0 - 10.0 /100 WBC s. The reference r josias was not used to interpret this result as normal/abnormal . IPF % (test code = 8832397607) Lab Interpretation (test Abnormal code = 47771-8) [facility] (AUTOMATED)2020-05-20 19:54:00 Test Item Value Reference Range Interpretation Comments POCT GLU (test code = 5634147752) 192 mg/dL 70-110 H Lab Interpretation (test code = Abnormal 56820-8) [facility], [facility]BDOMEN/KUB, 1 VIEW [id number] 08:21:00 Reason for exam:->nauseaIs the patient ?->NoFINAL REPORT TECHNIQUE: Single View of the Abdomen. INDICATION: Nausea. COMPAR LYDIA: Radiographs from 10/12/2018 and 05/05/2018. FINDINGS/IMPRESSION: A nonaggressive appearing sclerotic density over the right greater trochanter is unchanged and likely due to overlapping structures.There is a paucity of small bowel gas. However, overall this is likely a normal bowel gas pattern with some gas in the colon and rectum. Signed: Lexi Gonsalez [facility] Verified Date/Time: 10/14/2018 08:21:37 Reading Location: [facility] Radiology Reading Room CBC W/PLT COUNT & AUTO [id number] 08:18:00 Test Item Value Reference Range Interpretation Comments WHITE BLOOD CELL COUNT (BEAKER) 5.5 K/ L 3.5-10.5 (test code = 775) RED BLOOD CELL COUNT (BEAKER) 3.44 M/ L 3.93-5.22 L (test code = 761) HEMOGLOBIN (BEAKER) (test code = 10.7 GM/DL 11.2-15.7 L 410) HEMATOCRIT (BEAKER) (test code = 35.5 % 34.1-44.9 411) MEAN CORPUSCULAR VOLUME (BEAKER) 103.2 fL 79.4-94.8 H (test code = 753) MEAN CORPUSCULAR HEMOGLOBIN 31.1 pg 25.6-32.2 (BEAKER) (test code = 751) MEAN CORPUSCULAR HEMOGLOBIN CONC 30.1 GM/DL 32.2-35.5 L (BEAKER) (test code = 752) RED CELL DISTRIBUTION WIDTH 17.2 % 11.7-14.4 H (BEAKER) (test code = 412) PLATELET COUNT (BEAKER) (test 326 K/CU MM 150-450 code = 756) MEAN PLATELET VOLUME (BEAKER) 9.1 fL 9.4-12.3 L (test code = 754) NUCLEATED RED BLOOD CELLS 0 /100 WBC 0-0 (BEAKER) (test code = 413) (CELLAVISION MANUAL DIFF)2018-10-14 08:18:00 Test Item Value [...] Received comment: User comments: Slide comments:BASIC METABOLIC [id number] 06:23:00 Test Item Value Reference Range Interpretation [...] S NOT APPLICABLE FOR DIALYSIS PATIEN TS. [id number] 09:49:00 Test Item Value Reference Range Interpretation Comments LIPASE (BEAKER) (test code = 749) 37 U/L 8-78 HEPATIC FUNCTION [id number] 09:49:00 Test Item Value Reference Range Interpretation [...] Differential performed on an albumin smear.BASIC METABOLIC [id number] 03:40:00 Test Item Value Reference Range Interpretation [...] 697) EGFR (BEAKER) (test 93 mL/min/1.73 ESTIMA NAVA GFR IS code = 1092) sq m NOT ACCURATE CREATININE CLEARANCE IN PREDICTING GLOMERULAR FILTRATION RATE . ESTIMATED GFR I S NOT APPLICABLE FOR DIALYSIS PATIEN TS. CBC W/PLT COUNT & AUTO [id number] 03:00:00 Test Item Value Reference Range Interpretation [...] CELL DISTRIBUTION WIDTH 17.3 % 11.7-14.4 H (BEAKER) (test code = 412) PLATELET COUNT (BEAKER) (test 360 K/CU MM 150-450 code = 756) MEAN PLATELET VOLUME (BEAKER) 9.1 fL 9.4-12.3 L (test code = 754) NUCLEATED RED BLOOD CELLS 0 /100 WBC 0-0 (BEAKER) (test code = 413) POCT-GLUCOSE [id number] 21:19:00 Test Item Value Reference Range Interpretation Comments POC-GLUCOSE METER 216 mg/dL 70-110 H TESTED AT [facility] 6720 ([facility]) (test code = RODOLFO Pitts [facility] 1538) [address] POCT-GLUCOSE [id number] 12:46:00 Test Item Value Reference Range Interpretation Comments POC-GLUCOSE METER 174 mg/dL 70-110 H TESTED AT [facility] 67[address] ([facility]) (test code = RODOLFO Pitts [facility] 1538) [address] RAD, ABDOMEN/KUB, 1 VIEW [id number] 10:26:00Reason for exam:->abd distension, eval for obstruction/ileusIs [...] changes are seen in the groins. Signed: Kimmie Baeza MDReport Verified Date/Time: 10/12/2018 10:26:01 Reading Location: [address] Body Reading Room CBC W/PLT COUNT & AUTO [id number] 09:45:00 Test Item Value Reference Range Interpretation [...] 3438) Received comment: User comments: Slide comments:POCT-GLUCOSE [id number] 07:56:00 Test Item Value Reference Range Interpretation Comments POC-GLUCOSE METER 213 mg/dL 70-110 H TESTED AT [facility] 67[address] (BEAKER) (test code = RODOLFO [place] 1538) [address] BASIC METABOLIC [id number] 07:38:00 Test Item Value Reference Range Interpretation [...] NOT APPLICABLE FOR DIALYSIS PATIEN TS. POCT-GLUCOSE [id number] 18:35:00 Test Item Value Reference Range Interpretation Comments POC-GLUCOSE METER 196 mg/dL 70-110 H TESTED AT [facility] 6720 (BEAKER) (test code = RODOLFO Pitts [facility] 1538) [address] POCT-GLUCOSE [id number] 12:01:00 Test Item Value Reference Range Interpretation Comments POC-GLUCOSE METER 184 mg/dL 70-110 H TESTED AT [facility] 6720 (BEAKER) (test code = DANIELLA Gisselle [facility] 1538) [address] POCT-GLUCOSE [id number] 08:12:00 Test Item Value Reference Range Interpretation Comments POC-GLUCOSE METER 215 mg/dL 70-110 H TESTED AT [facility] 67 (BEAKER) (test code = [facility] Gisselle [facility] 1538) [address] BASIC METABOLIC [id number] 06:51:00 Test Item Value Reference Range Interpretation [...] PATIEN TS. CBC W/PLT COUNT & AUTO [id number] 06:15:00 Test Item Value Reference Range Interpretation [...] EOSINOPHILS ABSOLUTE COUNT 0.05 K/ L 0.04-0.36 (BEAKER) (test code = 416) BASOPHILS ABSOLUTE COUNT (BEAKER) 0.04 K/ L 0.01-0.08 (test code = 417) IMMATURE GRANULOCYTES-RELATIVE 1 % 0-1 PERCENT (BEAKER) (test code = 2801) POCT-GLUCOSE [id number] 22:53:00 Test Item Value Reference Range Interpretation Comments POC-GLUCOSE METER 207 mg/dL 70-110 H TESTED AT [facility] 67[address] (BEAKER) (test code = RODOLFO [place]AY[place] 1538) [address] RAD, CHEST, 1 VIEW, NON [id number] 22:32:00Reason for exam:->coughShould this be performed at [...] MDReport Verified Date/Time: 10/10/2018 22:32:10 Reading Location: [facility] Room POCT-GLUCOSE [id number] 22:05:00 Test Item Value Reference Range Interpretation Comments POC-GLUCOSE METER 202 mg/dL 70-110 H TESTED AT [facility] 67[address] (BEAKER) [facility] [address] RESPIRATORY PANEL [id number] 13:26:00 Test Item Value Reference Range Interpretation Comments HUMAN METAPNEUMOVIRUS Not detected Not detected, (BEAKER) (test code = 2683) Equivocal RHINOVIRUS (BEAKER) (test Not detected Not detected, code = 2684) Equivocal INFLUENZA A (BEAKER) (test Not detected Not detected, code = 2685) Equivocal INFLUENZA A (NO SUBTYPE) Not detected, (test code = 3606) Equivocal INFLUENZA A SUBTYPE H1 Not detected, (BEAKER) (test code = 2686) Equivocal INFLUENZA A [...] decisions. This sample was tested at the [facility] Molecular Diagnostics Laboratory using the [employer] Respiratory Panel. It is FDA cleared and has been verified and approved by the [facility] for clinical use on nasal swab specimens. It is not FDA-cleared for use on bronchial wash/lavage samples. However, for this sample type, validation was performed and test characteristics were determined and approved, by [facility] for clinical use under the Clinical Laboratory Improvement Amendments (CLIA) of 1988 requirements. Therefore, FDA clearance isnot required. This laboratory is CLIA- certified and [employer] (CAP)-accredited to perform high complexity testing.POCT-GLUCOSE [id number] 11:47:00 Test Item Value Reference Range Interpretation Comments POC-GLUCOSE METER 163 mg/dL 70-110 H TESTED AT [facility] [address] ([facility]) (test code = RODOLFO ZELAYA [place] 1538) [address] POCT-GLUCOSE [id number] 08:34:00 Test Item Value Reference Range Interpretation Comments POC-GLUCOSE METER 141 mg/dL 70-110 H TESTED AT [facility] 6720 (BEAKER) (test code = RODOLFO [place] 1538) [address] BASIC METABOLIC [id number] 06:51:00 Test Item Value Reference Range Interpretation [...] PATIEN TS. CBC W/PLT COUNT & AUTO [id number] 06:35:00 Test Item Value Reference Range Interpretation [...] PERCENT (BEAKER) (test code = 2801) POCT-GLUCOSE [id number] 21:25:00 Test Item Value Reference Range Interpretation Comments POC-GLUCOSE METER 199 mg/dL 70-110 H TESTED AT [place] [address] [facility] (test code = RODOLFO [place]AY[place] 1538) [address] BLOOD [id number] 19:00:00 Test Item Value Reference Range Interpretation Comments CULTURE (BEAKER) (test No growth in 5 days code = 1095) BLOOD [id number] 19:00:00 Test Item Value Reference Range Interpretation Comments CULTURE (BEAKER) (test No growth in 5 days code = 1095) POCT-GLUCOSE [id number] 18:16:00 Test Item Value Reference Range Interpretation Comments POC-GLUCOSE METER 149 mg/dL 70-110 H TESTED AT [facility] 67[address] (BEAKER) (test code = RODOLFO ZELAY[place] 1538) [address] OVA AND PARASITE [id number] 08:39:00 Test Item Value Reference Range Interpretation Comments CONCENTRATE SMEAR - No ova or parasites No ova or parasites O\\T\\P (BEAKER) (test seen seen code = 247) TRICHROME SMEAR - No ova or parasites No ova or parasites O\\T\\P (BEAKER) (test seen seen code = 248) POCT-GLUCOSE [id number] 07:38:00 Test Item Value Reference Range Interpretation Comments POC-GLUCOSE METER 169 mg/dL 70-110 H TESTED AT [facility] 6720 (BEAKER) (test code = RODOLFO Pitts [facility] 1538) [address] BASIC METABOLIC [id number] 05:07:00 Test Item Value Reference Range Interpretation [...] PATIEN TS. CBC W/PLT COUNT & AUTO [id number] 04:51:00 Test Item Value Reference Range Interpretation [...] PERCENT (BEAKER) (test code = 2801) POCT-GLUCOSE [id number] 20:27:00 Test Item Value Reference Range Interpretation Comments POC-GLUCOSE METER 200 mg/dL 70-110 H TESTED AT [facility] 67[address] (BEAKER) (test code = RODOLFO [place] 1538) [address] POCT-GLUCOSE [id number] 17:20:00 Test Item Value Reference Range Interpretation Comments POC-GLUCOSE METER 242 mg/dL 70-110 H TESTED AT [facility] 6720 (BEAKER) (test code = RODOLFO Pitts [place] 1538) [address] POCT-GLUCOSE [id number] 13:03:00 Test Item Value Reference Range Interpretation Comments POC-GLUCOSE METER 146 mg/dL 70-110 H TESTED AT [facility] 6720 (BEAKER) (test code = RODOLFO Pitts [place] 1538) [address] POCT-GLUCOSE [id number] 08:06:00 Test Item Value Reference Range Interpretation Comments POC-GLUCOSE METER 150 mg/dL 70-110 H TESTED AT [facility] 67[address] (BEAKER) (test code = RODOLFO Pitts [place] 1538) [address] [id number] 04:31:00 Test Item Value Reference Range Interpretation Comments PHOSPHORUS (BEAKER) (test code = 3.4 mg/dL 2.3-4.7 604) [id number] 04:31:00 Test Item Value Reference Range Interpretation Comments MAGNESIUM (BEAKER) (test code = 2.1 mg/dL 1.6-2.6 627) BASIC METABOLIC [id number] 04:31:00 Test Item Value Reference Range Interpretation [...] PATIEN TS. CBC W/PLT COUNT & AUTO [id number] 04:15:00 Test Item Value Reference Range Interpretation [...] 0-1 PERCENT (BEAKER) (test code = 2801) [id number] 15:17:00 Test Item Value Reference Range Interpretation Comments POTASSIUM (BEAKER) (test code = 4.5 meq/L 3.5-5.1 379) [id number] 15:17:00 Test Item Value Reference Range Interpretation Comments MAGNESIUM (BEAKER) (test code = 2.3 mg/dL 1.6-2.6 627) [id number] 15:17:00 Test Item Value Reference Range Interpretation Comments PHOSPHORUS (BEAKER) (test code = 2.5 mg/dL 2.3-4.7 604) HEMOGLOBIN AND [id number] 14:53:00 Test Item Value Reference Range Interpretation Comments HEMOGLOBIN (BEAKER) (test code = 14.4 GM/DL 11.2-15.7 410) HEMATOCRIT (BEAKER) (test code = 44.9 % 34.1-44.9 411) [id number] 09:39:00 Test Item Value Reference Range Interpretation Comments POTASSIUM (BEAKER) (test code = 3.7 meq/L 3.5-5.1 379) [id number] 09:39:00 Test Item Value Reference Range Interpretation Comments MAGNESIUM (BEAKER) (test code = 2.4 mg/dL 1.6-2.6 627) RAD, CHEST, 1 VIEW, NON [id number] 08:09:00Reason for exam:->pulm edemaShould this be performed [...] significant change since 10/06/2018. Signed: Lillie Jones [facility] Verified Date/Time: 10/07/2018 08:09:09 Reading Location: [facility] Reading Room POCT-GLUCOSE [id number] 06:00:00 Test Item Value Reference Range Interpretation Comments POC-GLUCOSE METER 111 mg/dL 70-110 H TESTED AT [facility] 6720 (BEAKER) (test code = RODOLFO [place] 1538) [address] [id number] 05:22:00 Test Item Value Reference Range Interpretation Comments PHOSPHORUS (BEAKER) (test code = 2.9 mg/dL 2.3-4.7 604) [id number] 05:22:00 Test Item Value Reference Range Interpretation Comments MAGNESIUM (BEAKER) (test code = 2.4 mg/dL 1.6-2.6 627) BASIC METABOLIC [id number] 05:22:00 Test Item Value Reference Range Interpretation [...] PATIEN TS. CBC W/PLT COUNT & AUTO [id number] 05:03:00 Test Item Value Reference Range Interpretation [...] 0-1 PERCENT (BEAKER) (test code = 2801) [id number] 00:55:00 Test Item Value Reference Range Interpretation Comments POTASSIUM (BEAKER) (test code = 3.6 meq/L 3.5-5.1 379) [id number] 00:55:00 Test Item Value Reference Range Interpretation Comments MAGNESIUM (BEAKER) (test code = 2.0 mg/dL 1.6-2.6 627) POCT-GLUCOSE [id number] 00:32:00 Test Item Value Reference Range Interpretation Comments POC-GLUCOSE METER 125 mg/dL 70-110 H TESTED AT [facility] 6720 (BEAKER) (test code = DANIELLA Gisselle [facility] 1538) [address] POCT-GLUCOSE [id number] 20:19:00 Test Item Value Reference Range Interpretation Comments POC-GLUCOSE METER 209 mg/dL 70-110 H TESTED AT [facility] 67[address] ([facility] (test code = [facility] 1538) [address] [id number] 16:56:00 Test Item Value Reference Range Interpretation Comments PHOSPHORUS (BEAKER) (test code = 1.2 mg/dL 2.3-4.7 LL 604) [id number] 16:52:00 Test Item Value Reference Range Interpretation Comments POTASSIUM (BEAKER) (test code = 3.6 meq/L 3.5-5.1 379) [id number] 16:52:00 Test Item Value Reference Range Interpretation Comments MAGNESIUM (BEAKER) (test code = 2.3 mg/dL 1.6-2.6 627) HEMOGLOBIN AND [id number] 16:35:00 Test Item Value Reference Range Interpretation Comments HEMOGLOBIN (BEAKER) (test code = 12.6 GM/DL 11.2-15.7 410) HEMATOCRIT (BEAKER) (test code = 37.7 % 34.1-44.9 411) C. DIFFICILE GDH [id number] 16:20:00 Test Item Value Reference Range Interpretation Comments CDT TOXIN (test code Negative Negative = [id number]) CDT GDH ANTIGEN Positive Negative A C. difficile present but (test code = toxin not detec nava. [id number]) Indicates colon ization with non-toxige vijay strain or level of tox in below detectable leve ls. No need for enteri c isolation. Thai atment is rarely needed ( only when strong clinical suspicion for Clostridium difficile infection) Testing performed by [employer] Rapid [employer]ette Assay. For GDH, published sensitivity of the assay is 98.7% compared to cytotoxicity testing. For Toxin AB, published sensitivity is 87.8% and specificity 99.4% compared to cytotoxicity testing.Verification of kit performance was done by the [facility] Microbiology Lab prior to clinical use.[id number] 12:30:00 Test Item Value Reference Range Interpretation Comments POTASSIUM (BEAKER) (test code = 3.4 meq/L 3.5-5.1 L 379) Check Serum Potassium level 2 hours after oral potassium replacement completed or 30 min after intravenous potassium replacement.POCT-GLUCOSE [id number] 12:11:00 Test Item Value Reference Range Interpretation Comments POC-GLUCOSE METER 183 mg/dL 70-110 H TESTED AT [place] [address] ([facility]) (test code = RODOLFO Pitts [facility] 1538) [address] RAD, CHEST, 1 VIEW, NON [id number] 08:17:00Reason for exam:->pulm edemaShould this be performed at the bedside?->YesFINAL REPORT Chest, one view History: Pulmonary edema Comparison: 10/05/2018 Fi ndings:Clear lungs. Normal size heart. No pleural effusion or pneumothorax. Impression:No acute findings in the chest Signed: Mehul Crowder Verified Date/Time: 10/06/2018 08:17:06 Reading Location: [facility] C013X Ortho Consult Reading Room POCT-GLUCOSE [id number] 05:51:00 Test Item Value Reference Range Interpretation Comments POC-GLUCOSE METER 129 mg/dL 70-110 H TESTED AT [facility] 67 (BEiMOSPHERE) (test code = DANIELALCIDES [place]isselle [place] 1538) [address] [id number] 05:17:00 Test Item Value Reference Range Interpretation Comments PHOSPHORUS (BEAKER) (test code = 1.3 mg/dL 2.3-4.7 LL 604) BASIC METABOLIC [id number] 05:14:00 Test Item Value Reference Range Interpretation [...] S NOT APPLICABLE FOR DIALYSIS PATIEN TS. [id number] 05:06:00 Test Item Value Reference Range Interpretation Comments MAGNESIUM (BEAKER) (test code = 2.2 mg/dL 1.6-2.6 627) CBC W/PLT COUNT & AUTO [id number] 04:37:00 Test Item Value Reference Range Interpretation [...] PERCENT (BEAKER) (test code = 2801) POCT-GLUCOSE [id number] 00:13:00 Test Item Value Reference Range Interpretation Comments POC-GLUCOSE METER 143 mg/dL 70-110 H TESTED AT [facility] 6720 ([facility]) (test code = RODOLFO [place]AY[place] 1538) [address] TROPONIN [id number] 20:52:00 Test Item Value Reference Range Interpretation Comments TROPONIN I ([facility]) (test code = 0.91 ng/mL 0.00-0.03 [facility]) Troponin I (TnI) levels must be interpreted [...] 0.5-2.2 (test code = 2872) HEMOGLOBIN AND [id number] 20:08:00 Test Item Value Reference Range Interpretation Comments HEMOGLOBIN (BEAKER) (test code = 12.3 GM/DL 11.2-15.7 410) HEMATOCRIT (BEAKER) (test code = 37.4 % 34.1-44.9 411) HEMOGLOBIN AND [id number] 13:24:00 Test Item Value Reference Range Interpretation Comments HEMOGLOBIN (BEAKER) (test code = 11.8 GM/DL 11.2-15.7 410) HEMATOCRIT (BEAKER) (test code = 35.8 % 34.1-44.9 411) [id number] 12:51:00 Test Item Value Reference Range Interpretation Comments FERRITIN (BEAKER) (test code = 361) 155 ng/mL 5-275 POCT-GLUCOSE [id number] 12:20:00 Test Item Value Reference Range Interpretation Comments POC-GLUCOSE METER 154 mg/dL 70-110 H TESTED AT [place] [address] ([facility]) (test code = [facility] 1538) [address] IRON, TIBC, % SAT. (WITHOUT FERRITIN)2018-10-05 10:36:00 Test Item Value Reference Range Interpretation Comments IRON (BEAKER) (test code = 547) 41.0 ug/dL 40.0-160.0 TOTAL IRON BINDING CAPACITY 185 ug/dL 250-450 L (BEAKER) (test code = 769) IRON % SATURATION (2) (BEAKER) 22 % 20-55 (test code = 2590) HEMOGLOBIN [id number] 10:31:00 Test Item Value Reference Range Interpretation Comments HEMOGLOBIN A1C (BEAKER) (test code = 4.7 % 4.3-6.1 368) VITAMIN [id number] 09:05:00 Test Item Value Reference Range Interpretation Comments VITAMIN B12 (BEAKER) (test code = 885 pg/mL 213-816 H 774) POCT-GLUCOSE [id number] 07:16:00 Test Item Value Reference Range Interpretation Comments POC-GLUCOSE METER 152 mg/dL 70-110 H TESTED AT [place] [address] ([facility]) (test code = [facility] 1538) [address] RAD, CHEST, 1 VIEW, NON [id number] 06:56:00Reason for exam:->pulm edemaShould this be performed at the bedside?->YesFINAL REPORT RAD, CHEST, 1 VIEW, NON DEPT INDICATION: pulm edema COMPARISON: Prior day's exam FINDINGS: Portable frontal view of the chest. IMPRESSION: Lungs and pleura: Unchanged airspace and pleural opacities. No pneumothorax.Heart and mediastinum: Stable contours. Additional findings: None. Signed: Lisa Mcgovern Verified Date/Time: 10/05/2018 06:56:36 Reading Location: [address] Transitional Reading Room TROPONIN [id number] 06:09:00 Test Item Value Reference Range Interpretation Comments TROPONIN I (BEAKER) (test code = 1.52 ng/mL 0.00-0.03 397) [...] acute neurological disease, and persistent tachyarrhythmia.BASIC METABOLIC [id number] 05:51:00 Test Item Value Reference Range Interpretation Comments SODIUM (BEAKER) 140 meq/L 136-145 (test code = 381) POTASSIUM (BEAKER) 2.8 meq/L [...] S NOT APPLICABLE FOR DIALYSIS PATIEN TS. [id number] 05:20:00 Test Item Value Reference Range Interpretation Comments PHOSPHORUS (BEAKER) (test code = 2.2 mg/dL 2.3-4.7 L 604) [id number] 05:20:00 Test Item Value Reference Range Interpretation Comments MAGNESIUM (BEAKER) (test code = 1.8 mg/dL 1.6-2.6 627) HEMOGLOBIN AND [id number] 05:01:00 Test Item Value Reference Range Interpretation Comments HEMOGLOBIN (BEAKER) (test code = 11.4 GM/DL 11.2-15.7 410) HEMATOCRIT (BEAKER) (test code = 34.4 % 34.1-44.9 411) CBC W/PLT COUNT & AUTO [id number] 04:58:00 Test Item Value Reference Range Interpretation [...] PERCENT (BEAKER) (test code = 2801) TROPONIN [id number] 01:17:00 Test Item Value Reference Range Interpretation Comments TROPONIN I (BEAKER) (test code = 1.40 ng/mL 0.00-0.03 HH 397) Troponin I (TnI) [...] acute neurological disease, and persistent tachyarrhythmia.HEMOGLOBIN AND [id number] 00:52:00 Test Item Value Reference Range Interpretation Comments HEMOGLOBIN (BEAKER) (test code = 12.1 GM/DL 11.2-15.7 410) HEMATOCRIT (BEAKER) (test code = 36.4 % 34.1-44.9 411) POCT-GLUCOSE [id number] 00:34:00 Test Item Value Reference Range Interpretation Comments POC-GLUCOSE METER 164 mg/dL 70-110 H TESTED AT [facility] 6720 (BEAKER) (test code = [place] 1538) [address] TROPONIN [id number] 22:08:00 Test Item Value Reference Range Interpretation [...] failure, acidosis, acute neurological disease, and persistent tachyarrhythmia.[id number] 21:56:00 Test Item Value Reference Range Interpretation Comments PHOSPHORUS (BEAKER) (test code = 2.1 mg/dL 2.3-4.7 L 604) [id number] 21:56:00 Test Item Value Reference Range Interpretation Comments MAGNESIUM (BEAKER) (test code = 2.1 mg/dL 1.6-2.6 627) BASIC METABOLIC [id number] 21:56:00 Test Item Value Reference Range Interpretation [...] 697) EGFR (BEAKER) (test 87 mL/min/1.73 ESTIMA NAVA GFR IS code = 1092) sq m NOT ACCURATE CREATININE CLEARANCE IN PREDICTING GLOMERULAR FILTRATION RATE . ESTIMATED GFR I S NOT APPLICABLE FOR DIALYSIS PATIEN TS. [id number] 21:56:00 Test Item Value Reference Range Interpretation Comments PHOSPHORUS (BEAKER) (test code = 2.1 mg/dL 2.3-4.7 L 604) [id number] 21:56:00 Test Item Value Reference Range Interpretation Comments MAGNESIUM (BEAKER) (test code = 2.1 mg/dL 1.6-2.6 627) BASIC METABOLIC [id number] 21:56:00 Test Item Value Reference Range Interpretation [...] 697) EGFR (BEAKER) (test 87 mL/min/1.73 ESTIMA NAVA GFR IS code = 1092) sq m NOT ACCURATE CREATININE CLEARANCE IN PREDICTING GLOMERULAR FILTRATION RATE . ESTIMATED GFR I S NOT APPLICABLE FOR DIALYSIS PATIEN TS. BLOOD GAS, [id number] 21:46:00 Test Item Value Reference Range Interpretation [...] (test code = 1819) 100.0 % CALCIUM, [id number] 21:46:00 Test Item Value Reference Range Interpretation Comments CALCIUM IONIZED (BEAKER) (test 1.10 mmol/L 1.12-1.27 L code = 698) PH, BLOOD (BEAKER) (test code = 7.39 1810) URINALYSIS W/ REFLEX URINE [id number] 20:34:00 Test Item Value Reference Range Interpretation [...] 520) 3 /HPF SOURCE(BEAKER) (test code = 2795) TSH/FREE T4 IF [id number] 19:24:00 Test Item Value Reference Range Interpretation Comments THYROID STIMULATING HORMONE 0.79 uIU/mL 0.35-4.94 (BEAKER) (test code = 772) BASIC METABOLIC [id number] 18:15:00 Test Item Value Reference Range Interpretation [...] 697) EGFR (BEAKER) (test 75 mL/min/1.73 ESTIMA NAVA GFR IS code = 1092) sq m NOT ACCURATE CREATININE CLEARANCE IN PREDICTING GLOMERULAR FILTRATION RATE . ESTIMATED GFR I S NOT APPLICABLE FOR DIALYSIS PATIEN TS. LACTIC ACID, VENOUS, WHOLE [id number] 18:13:00 Test Item Value Reference Range Interpretation Comments LACTATE BLOOD VENOUS (2) (BEAKER) 1.0 mmol/L 0.5-2.2 (test code = 2872) [id number] 18:08:00 Test Item Value Reference Range Interpretation Comments AMMONIA (BEAKER) (test code = 348) 33 mol/L 18-72 HEMOGLOBIN AND [id number] 18:02:00 Test Item Value Reference Range Interpretation Comments HEMOGLOBIN (BEAKER) (test code = 12.2 GM/DL 11.2-15.7 410) HEMATOCRIT (BEAKER) (test code = 37.2 % 34.1-44.9 411) TROPONIN [id number] 17:28:00 Test Item Value Reference Range Interpretation [...] mmol/L 0.5-2.2 (test code = 2872) POCT-GLUCOSE [id number] 16:55:00 Test Item Value Reference Range Interpretation Comments POC-GLUCOSE METER 186 mg/dL 70-110 H TESTED AT [facility] 6720 (BEAKER) (test code = [place] 1538) [address] KETONE, [id number] 15:19:00 Test Item Value Reference Range Interpretation Comments KETONES, BLOOD (BEAKER) (test code 1.0 mmol/L <0.4 H = 1103) [id number] 15:19:00 Test Item Value Reference Range Interpretation Comments PHOSPHORUS (BEAKER) (test code = 604) < mg/dL 2.3-4.7 LL RAD, CHEST, 1 VIEW, NON [id number] 15:17:00Post-intubationReason for exam:- >SHOTNESS OF BREATH, R/O [...] HarrisMDReport Verified Date/Time: 10/04/2018 15:17:58 Reading Location: [address] Radiology Reading Room OSMOLALITY, [id number] 15:16:00 Test Item Value Reference Range Interpretation Comments OSMOLALITY, SERUM (BEAKER) (test 291 mOsm/kg 275-295 code = 615) LIPID [id number] 15:15:00 Test Item Value Reference Range Interpretation [...] 100-129 Borderline 130-159 High 160-189 Very High [id number] 15:15:00 Test Item Value Reference Range Interpretation Comments LIPASE (BEAKER) (test code = 749) 338 U/L 8-78 H [id number] 15:13:00 Test Item Value Reference Range Interpretation Comments MAGNESIUM (BEAKER) (test code = 1.3 mg/dL 1.6-2.6 L 627) LACTIC ACID, VENOUS, WHOLE [id number] 15:10:00 Test Item Value Reference Range Interpretation Comments LACTATE BLOOD VENOUS (2) (BEAKER) 1.2 mmol/L 0.5-2.2 (test code = 2872) CBC W/PLT COUNT & AUTO [id number] 15:06:00 Test Item Value Reference Range Interpretation [...] (BEAKER) (test code = 2801) OXYGEN SATURATION, [id number] 14:59:00 Test Item Value Reference Range Interpretation Comments O2 SATURATION (MEASURED) (BEAKER) 69.6 % (test code = 1455) FEMORAL LINEBLOOD GAS, [id number] 14:51:00 Test Item Value Reference Range Interpretation [...] (test code = 1819) 30.0 % TROPONIN [id number] 13:55:00 Test Item Value Reference Range Interpretation [...] (BEAKER) (test code = 700) COMPREHENSIVE METABOLIC [id number] 13:45:00 Test Item Value Reference Range Interpretation [...] U/L 6-55 (test code = 347) EGFR [facility] (test 64 mL/min/1.73 ESTIMA NAVA GFR IS code = 1092) sq m NOT ACCURATE CREATININE CLEARANCE IN PREDICTING GLOMERULAR FILTRATION RATE . ESTIMATED GFR I S NOT APPLICABLE FOR DIALYSIS PATIEN TS. LACTIC ACID, VENOUS, WHOLE [id number] 13:41:00 Test Item Value Reference Range Interpretation Comments LACTATE BLOOD VENOUS (2) (BEAKER) 1.3 mmol/L 0.5-2.2 (test code = 2872) [id number] 13:39:00 Test Item Value Reference Range Interpretation Comments PARTIAL THROMBOPLASTIN TIME 30.3 seconds 22.5-36.0 (BEAKER) (test code = 760) [id number] 13:39:00 Test Item Value Reference Range Interpretation Comments FIBRINOGEN LEVEL ([facility]) (test 284 mg/dl 225-434 code = 658) PROTHROMBIN TIME/[id number] 13:38:00 Test Item Value Reference Range Interpretation Comments PROTIME (AKER) (test code = 13.4 seconds 11.7-14.7 759) INR ([facility]) (test code = 370) 1.0 <=5.9 RECOMMENDED COUMADIN/WARFARIN INR THERAPY RANGESSTANDARD DOSE: 2.0 - 3.0 Includes: PROPHYLAXIS forvenous thrombosis, systemic embolization; TREATMENT for venous thrombosis and/or pulmonary embolus.HIGH RISK: Target INR is 2.5-3.5 for patients with mechanical heart valves.POCT-GLUCOSE [id number] 18:40:00 Test Item Value Reference Range Interpretation Comments POC-GLUCOSE METER 148 mg/dL 70-110 H TESTED AT [facility] 67 ([facility]) (test code = [place] 1538) [address] POCT-GLUCOSE [id number] 07:43:00 Test Item Value Reference Range Interpretation Comments POC-GLUCOSE METER 112 mg/dL 70-110 H TESTED AT [place] [id number] ([facility]) (test code = [place] [address] [facility] 1538) [address] [id number] 07:13:00 Test Item Value Reference Range Interpretation Comments MAGNESIUM ([facility]) (test code = 1.4 mg/dL 1.6-2.6 L 627) BASIC METABOLIC [id number] 07:13:00 Test Item Value Reference Range Interpretation [...] 697) EGFR (BEAKER) (test 83 mL/min/1.73 ESTIMA NAVA GFR IS code = 1092) sq m NOT ACCURATE CREATININE CLEARANCE IN PREDICTING GLOMERULAR FILTRATION RATE . ESTIMATED GFR I S NOT APPLICABLE FOR DIALYSIS PATIEN TS. POCT-GLUCOSE [id number] 22:09:00 Test Item Value Reference Range Interpretation Comments POC-GLUCOSE METER 161 mg/dL 70-110 H TESTED AT [facility] 6720 (BEAKER) (test code = [place] [facility] 1538) [address] POCT-GLUCOSE [id number] 17:46:00 Test Item Value Reference Range Interpretation Comments POC-GLUCOSE METER 148 mg/dL 70-110 H TESTED AT [facility] 6720 (BEAKER) (test code = [place] [facility] 1538) [address] POCT-GLUCOSE [id number] 12:00:00 Test Item Value Reference Range Interpretation Comments POC-GLUCOSE METER 137 mg/dL 70-110 H TESTED AT [facility] 6720 (BEAKER) (test code = [place] 1538) [address] POCT-GLUCOSE [id number] 07:55:00 Test Item Value Reference Range Interpretation Comments POC-GLUCOSE METER 141 mg/dL 70-110 H TESTED AT [facility] 6720 (BEAKER) (test code = [place] 1538) [address] [id number] 05:30:00 Test Item Value Reference Range Interpretation Comments MAGNESIUM (BEAKER) (test code = 1.4 mg/dL 1.6-2.6 L 627) BASIC METABOLIC [id number] 05:30:00 Test Item Value Reference Range Interpretation [...] 697) EGFR (BEAKER) (test 90 mL/min/1.73 ESTIMA NAVA GFR IS code = 1092) sq m NOT ACCURATE CREATININE CLEARANCE IN PREDICTING GLOMERULAR FILTRATION RATE . ESTIMATED GFR I S NOT APPLICABLE FOR DIALYSIS PATIEN TS. HEMOGLOBIN AND [id number] 05:07:00 Test Item Value Reference Range Interpretation Comments HEMOGLOBIN (BEAKER) (test code = 8.8 GM/DL 11.2-15.7 L 410) HEMATOCRIT (BEAKER) (test code = 28.4 % 34.1-44.9 L 411) BLOOD [id number] 00:00:00 Test Item Value Reference Range Interpretation Comments CULTURE (BEAKER) (test No growth in 5 days code = 1095) BLOOD [id number] 00:00:00 Test Item Value Reference Range Interpretation Comments CULTURE (BEAKER) (test No growth in 5 days code = 1095) POCT-GLUCOSE [id number] 22:59:00 Test Item Value Reference Range Interpretation Comments POC-GLUCOSE METER 141 mg/dL 70-110 H TESTED AT [facility] 6720 (BEAKER) (test code = [place] 1538) [address] HEMOGLOBIN AND [id number] 16:50:00 Test Item Value Reference Range Interpretation Comments HEMOGLOBIN (BEAKER) (test code = 9.6 GM/DL 11.2-15.7 L 410) HEMATOCRIT (BEAKER) (test code = 30.8 % 34.1-44.9 L 411) POCT-GLUCOSE [id number] 13:15:00 Test Item Value Reference Range Interpretation Comments POC-GLUCOSE METER 144 mg/dL 70-110 H TESTED AT [facility] 6720 (BEAKER) (test code = [place] 1538) [address] POCT-GLUCOSE [id number] 08:27:00 Test Item Value Reference Range Interpretation Comments POC-GLUCOSE METER 125 mg/dL 70-110 H TESTED AT [facility] 6720 (BEAKER) (test code = [place] 1538) [address] [id number] 07:54:00 Test Item Value Reference Range Interpretation Comments MAGNESIUM (BEAKER) (test code = 1.0 mg/dL 1.6-2.6 LL 627) BASIC METABOLIC [id number] 07:25:00 Test Item Value Reference Range Interpretation [...] 697) EGFR (BEAKER) (test 76 mL/min/1.73 ESTIMA NAVA GFR IS code = 1092) sq m NOT ACCURATE CREATININE CLEARANCE IN PREDICTING GLOMERULAR FILTRATION RATE . ESTIMATED GFR I S NOT APPLICABLE FOR DIALYSIS PATIEN TS. HEMOGLOBIN AND [id number] 07:15:00 Test Item Value Reference Range Interpretation Comments HEMOGLOBIN (BEAKER) (test code = 8.5 GM/DL 11.2-15.7 L 410) HEMATOCRIT (BEAKER) (test code = 27.0 % 34.1-44.9 L 411) CBC W/PLT COUNT & AUTO [id number] 07:15:00 Test Item Value Reference Range Interpretation [...] IMMATURE GRANULOCYTES-RELATIVE 2 % 0-1 H PERCENT (BEAKER) (test code = 2801) POCT-GLUCOSE [id number] 00:54:00 Test Item Value Reference Range Interpretation Comments POC-GLUCOSE METER 165 mg/dL 70-110 H TESTED AT [place] [address] ([facility]) (test code = [facility] 1538) [address] POCT-GLUCOSE [id number] 18:13:00 Test Item Value Reference Range Interpretation Comments POC-GLUCOSE METER 255 mg/dL 70-110 H TESTED AT [place] [address] ([facility]) (test code = [facility] 1538) [address] HEMOGLOBIN AND [id number] 17:10:00 Test Item Value Reference Range Interpretation Comments HEMOGLOBIN (BEAKER) (test code = 9.0 GM/DL 11.2-15.7 L 410) HEMATOCRIT (BEAKER) (test code = 28.1 % 34.1-44.9 L 411) POCT-GLUCOSE [id number] 11:29:00 Test Item Value Reference Range Interpretation Comments POC-GLUCOSE METER 204 mg/dL 70-110 H TESTED AT [place] [address] ([facility]) (test code = [facility] 1538) [address] CBC W/PLT COUNT & AUTO [id number] 10:04:00 Test Item Value Reference Range Interpretation Comments WHITE BLOOD CELL COUNT (BEAKER) 7.5 K/ L 3.5-10.5 (test code = 775) RED BLOOD CELL COUNT (BEAKER) 2.71 M/ L 3.93-5.22 L (test code [...] PERCENT (BEAKER) (test code = 2801) POCT-GLUCOSE [id number] 08:20:00 Test Item Value Reference Range Interpretation Comments POC-GLUCOSE METER 128 mg/dL 70-110 H TESTED AT [facility] 6720 (BEAKER) (test code = [place] 1538) [address] [id number] 05:08:00 Test Item Value Reference Range Interpretation Comments MAGNESIUM (BEAKER) 1.3 mg/dL 1.6-2.6 L Specimen slightly (test code = 627) hemolyzed [id number] 05:08:00 Test Item Value Reference Range Interpretation Comments PHOSPHORUS (BEAKER) 2.6 mg/dL 2.3-4.7 Specimen slightly (test code = 604) hemolyzed BASIC METABOLIC [id number] 05:08:00 Test Item Value Reference Range Interpretation [...] 697) EGFR (BEAKER) (test 61 mL/min/1.73 ESTIMA NAVA GFR IS code = 1092) sq m NOT ACCURATE CREATININE CLEARANCE IN PREDICTING GLOMERULAR FILTRATION RATE . ESTIMATED GFR I S NOT APPLICABLE FOR DIALYSIS PATIEN TS. HEMOGLOBIN AND [id number] 04:46:00 Test Item Value Reference Range Interpretation Comments HEMOGLOBIN (BEAKER) (test code = 8.7 GM/DL 11.2-15.7 L 410) HEMATOCRIT (BEAKER) (test code = 27.8 % 34.1-44.9 L 411) POCT-GLUCOSE [id number] 00:51:00 Test Item Value Reference Range Interpretation Comments POC-GLUCOSE METER 142 mg/dL 70-110 H TESTED AT [facility] 6720 (BEAKER) (test code = [place] 1538) [address] HEMOGLOBIN AND [id number] 20:58:00 Test Item Value Reference Range Interpretation Comments HEMOGLOBIN (BEAKER) (test code = 9.6 GM/DL 11.2-15.7 L 410) HEMATOCRIT (BEAKER) (test code = 29.6 % 34.1-44.9 L 411) POCT-GLUCOSE [id number] 18:36:00 Test Item Value Reference Range Interpretation Comments POC-GLUCOSE METER 228 mg/dL 70-110 H TESTED AT [facility] 6720 (BEAKER) (test code = [place] [facility] 1538) [address] SPUTUM CULTURE + GRAM [id number] 15:57:00 Test Item Value Reference Range Interpretation Comments CULTURE (BEAKER) 2+ Normal respiratory (test code = 1095) cosme present GRAM STAIN RESULT 4+ WBCs (BEAKER) (test code = 1123) GRAM STAIN RESULT No epithelial cells (BEAKER) (test code = 26463) GRAM STAIN RESULT 1+ yeast (BEAKER) (test code = 99557) HEMOGLOBIN AND [id number] 12:05:00 Test Item Value Reference Range Interpretation Comments HEMOGLOBIN (BEAKER) (test code = 8.5 GM/DL 11.2-15.7 L 410) HEMATOCRIT (BEAKER) (test code = 25.9 % 34.1-44.9 L 411) POCT-GLUCOSE [id number] 11:40:00 Test Item Value Reference Range Interpretation Comments POC-GLUCOSE METER 180 mg/dL 70-110 H TESTED AT [facility] 6720 [facility] (test code = [facility] 1538) [address] POCT-GLUCOSE [id number] 06:14:00 Test Item Value Reference Range Interpretation Comments POC-GLUCOSE METER 143 mg/dL 70-110 H TESTED AT [facility] 67 ([facility] (test code = [facility] 1538) [address] BASIC METABOLIC [id number] 05:05:00 Test Item Value Reference Range Interpretation [...] 697) EGFR (BEAKER) (test 29 mL/min/1.73 ESTIMA NAVA GFR IS code = 1092) sq m NOT ACCURATE CREATININE CLEARANCE IN PREDICTING GLOMERULAR FILTRATION RATE . ESTIMATED GFR I S NOT APPLICABLE FOR DIALYSIS PATIEN TS. VANCOMYCIN LEVEL, [id number] 05:04:00 Test Item Value Reference Range Interpretation Comments VANCOMYCIN RANDOM (BEAKER) (test 23.1 ug/mL code = 523) Reference Range: No [id number] 05:02:00 Test Item Value Reference Range Interpretation Comments PHOSPHORUS (BEAKER) (test code = 3.9 mg/dL 2.3-4.7 604) [id number] 05:02:00 Test Item Value Reference Range Interpretation Comments MAGNESIUM (BEAKER) (test code = 1.4 mg/dL 1.6-2.6 L 627) HEMOGLOBIN AND [id number] 04:36:00 Test Item Value Reference Range Interpretation Comments HEMOGLOBIN (BEAKER) (test code = 7.5 GM/DL 11.2-15.7 L 410) HEMATOCRIT (BEAKER) (test code = 22.8 % 34.1-44.9 L 411) POCT-GLUCOSE [id number] 00:02:00 Test Item Value Reference Range Interpretation Comments POC-GLUCOSE METER 180 mg/dL 70-110 H TESTED AT [place] [address] (BEAKER) (test code = [place] [facility] 1538) [address] HEMOGLOBIN AND [id number] 20:48:00 Test Item Value Reference Range Interpretation Comments HEMOGLOBIN (BEAKER) (test code = 8.3 GM/DL 11.2-15.7 L 410) HEMATOCRIT (BEAKER) (test code = 25.0 % 34.1-44.9 L 411) POCT-GLUCOSE [id number] 18:14:00 Test Item Value Reference Range Interpretation Comments POC-GLUCOSE METER 131 mg/dL 70-110 H TESTED AT [facility] 6720 ([facility] (test code = [facility] [place] [facility] 1538) [address] VANCOMYCIN LEVEL, [id number] 16:48:00 Test Item Value Reference Range Interpretation Comments VANCOMYCIN RANDOM (BEAKER) (test 28.3 ug/mL code = 523) Reference Range: No NormalsPOCT-GLUCOSE [id number] 12:43:00 Test Item Value Reference Range Interpretation Comments POC-GLUCOSE METER 157 mg/dL 70-110 H TESTED AT [facility] 6720 (BEAKER) (test code = [place] 153) [address] HEMOGLOBIN AND [id number] 12:20:00 Test Item Value Reference Range Interpretation Comments HEMOGLOBIN (BEAKER) (test code = 8.3 GM/DL 11.2-15.7 L 410) HEMATOCRIT (BEAKER) (test code = 25.4 % 34.1-44.9 L 411) BASIC METABOLIC [id number] 05:37:00 Test Item Value Reference Range Interpretation [...] 697) EGFR (BEAKER) (test 17 mL/min/1.73 ESTIMA NAVA GFR IS code = 1092) sq m NOT ACCURATE CREATININE CLEARANCE IN PREDICTING GLOMERULAR FILTRATION RATE . ESTIMATED GFR I S NOT APPLICABLE FOR DIALYSIS PATIEN TS. CBC W/PLT COUNT & AUTO [id number] 04:41:00 Test Item Value Reference Range Interpretation [...] IMMATURE GRANULOCYTES-RELATIVE 2 % 0-1 H PERCENT (BEAKER) (test code = 2800) POCT-GLUCOSE [id number] 00:06:00 Test Item Value Reference Range Interpretation Comments POC-GLUCOSE METER 174 mg/dL 70-110 H TESTED AT [facility] 67 (BEAKER) (test code = [place] 1538) [address] POCT-GLUCOSE [id number] 17:26:00 Test Item Value Reference Range Interpretation Comments POC-GLUCOSE METER 179 mg/dL 70-110 H TESTED AT [place] [address] ([facility]) (test code = [place] 1538) [address] CT, [id number] 17:19:00FINAL REPORT CLINICAL HISTORY: Recent pancreatitis, shock [...] Hepatomegaly with CT evidence of steatosis. Signed: Gordon Clemens MDReport Verified Date/Time: 05/05/2018 17:19:54 Reading Location: [address] Reading Room TROPONIN I 2018-05-05 16:31:00 [...] acidosis, acute neurological disease, and persistent tachyarrhythmia.POCT-GLUCOSE [id number] 12:29:00 Test Item Value Reference Range Interpretation Comments POC-GLUCOSE METER 139 mg/dL 70-110 H TESTED AT [facility] 6720 (BEAKER) (test code = [place] 1538) [address] URINALYSIS W/ REFLEX URINE [id number] 09:51:00 Test Item Value Reference Range Interpretation [...] = 1585) Moderate SOURCE(BEAKER) (test code = 9742) SODIUM, RANDOM [id number] 09:46:00 Test Item Value Reference Range Interpretation Comments SODIUM URINE (BEAKER) (test code = 23 meq/L 243) Reference Range: No NormalsCREATININE, RANDOM [id number] 09:32:00 Test Item Value Reference Range Interpretation Comments CREATININE URINE (BEAKER) (test 67.0 mg/dL code = 375) Reference Range: No NormalsUREA NITROGEN, RANDOM [id number] 09:32:00 Test Item Value Reference Range Interpretation Comments UREA NITROGEN URINE (BEAKER) (test 170 mg/dL code = 538) Reference Range: No NormalsLACTIC ACID, ARTERIAL, WHOLE [id number] 09:16:00 Test Item Value Reference Range Interpretation Comments LACTATE BLOOD ARTERIAL (2) 0.8 mmol/L 0.5-2.2 (BEAKER) (test code = 2874) Effective 12/15/2015: Units/Reference Range ChangeNew: 0.5-2.2 mmol/L Previous: 5-20 mg/dLHEMATOCRIT-STAT [id number] 09:02:00 Test Item Value Reference Range Interpretation Comments HEMATOCRIT (BEAKER) (test code = 411) 23.0 % 36.0-45.0 L BLOOD GAS, [id number] 09:02:00 Test Item Value Reference Range Interpretation [...] (test code = 1819) 30.0 % HEMOGLOBIN-STAT [id number] 09:01:00 Test Item Value Reference Range Interpretation Comments HEMOGLOBIN (BEAKER) (test code = 7.7 g/dL 12.0-15.0 L 410) TROPONIN [id number] 08:24:00 Test Item Value Reference Range Interpretation [...] acute neurological disease, and persistent tachyarrhythmia.BASIC METABOLIC [id number] 08:22:00 Test Item Value Reference Range Interpretation [...] 697) EGFR (BEAKER) (test 12 mL/min/1.73 ESTIMA NAVA GFR IS code = 1092) sq m NOT ACCURATE CREATININE CLEARANCE IN PREDICTING GLOMERULAR FILTRATION RATE . ESTIMATED GFR I S NOT APPLICABLE FOR DIALYSIS PATIEN TS. BLOOD GAS, [id number] 07:56:00 Test Item Value Reference Range Interpretation [...] code = 1819) 30.0 % VANCOMYCIN LEVEL, [id number] 05:44:00 Test Item Value Reference Range Interpretation Comments VANCOMYCIN RANDOM (BEAKER) (test 16.7 ug/mL code = 523) Reference Range: No NormalsLACTIC ACID, VENOUS, WHOLE [id number] 05:22:00 Test Item Value Reference Range Interpretation Comments LACTATE BLOOD VENOUS (2) (BEAKER) 0.7 mmol/L 0.5-2.2 (test code = 2872) Effective 12/15/2015: Units/Reference Range ChangeNew: 0.5-2.2 mmol/L Previous: 5-20 mg/dLBLOOD GAS, [id number] 05:03:00 Test Item Value Reference Range Interpretation [...] (test code = 1819) 30.0 % TROPONIN [id number] 05:00:00 Test Item Value Reference Range Interpretation [...] failure, acidosis, acute neurological disease, and persistent tachyarrhythmia.[id number] 04:54:00 Test Item Value Reference Range Interpretation Comments LIPASE (BEAKER) (test code = 749) 47 U/L 8-78 HEPATIC FUNCTION [id number] 04:54:00 Test Item Value Reference Range Interpretation [...] 6-55 347) RAD, CHEST, 1 VIEW, NON [id number] 04:49:00Reason for exam:- >IntubationShould this be performed [...] right IJ CVC remains in place. Signed: Gordon Clemens MDReport Verified Date/Time: 05/05/2018 04:49:25 Reading Location: [address] Reading Room [id number] 04:47:00 Test Item Value Reference Range Interpretation Comments PROCALCITONIN (BEAKER) (test code 2.43 ng/mL <0.05 H = 3036) SEPSIS RISK (ng/mL)Low: 0.05-0.50Intermediate: 0.51-2.00High: >=2.01RAD, ABDOMEN/KUB, 1 VIEW [id number] 04:47:00Reason for exam:->OG placement Should this be performed at the bedside?->YesFINAL REPORT CLINICAL HISTORY: NG tube placement COMPARISON: None. FINDINGS:A single supine view of a portion of the abdomen is submitted. The tip of an enteric tube overlies the expected position of the distal stomach. The visualized abdominal bowel gas pattern is unobstructed. There is no acute bony abnormality. Signed: Gordon Clemens MDReport Verified Date/Time: 05/05/2018 04:47:09 Reading Location: [address] Reading Room BLOOD GAS, [id number] 03:34:00 Test Item Value Reference Range Interpretation [...] 40.0 % CBC W/PLT COUNT & AUTO [id number] 03:25:00 Test Item Value Reference Range Interpretation [...] code = 2801) LACTIC ACID, VENOUS, WHOLE [id number] 02:41:00 Test Item Value Reference Range Interpretation Comments LACTATE BLOOD VENOUS (2) (BEAKER) 0.5 mmol/L 0.5-2.2 (test code = 2872) Effective 12/15/2015: Units/Reference Range ChangeNew: 0.5-2.2 mmol/L Previous: 5-20 mg/dLBLOOD GAS, [id number] 02:10:00 Test Item Value Reference Range Interpretation [...] code = 1819) 28.0 % BASIC METABOLIC [id number] 01:46:00 Test Item Value Reference Range Interpretation [...] 697) EGFR (BEAKER) (test 10 mL/min/1.73 ESTIMA NAVA GFR IS code = 1092) sq m NOT ACCURATE CREATININE CLEARANCE IN PREDICTING GLOMERULAR FILTRATION RATE . ESTIMATED GFR I S NOT APPLICABLE FOR DIALYSIS PATIEN TS. B-TYPE NATRIURETIC FACTOR (BNP)2018-05-05 01:36:00 Test Item Value Reference Range Interpretation Comments B-TYPE NATRIURETIC PEPTIDE (BEAKER) 124 pg/mL 0-100 H (test code = 700) [id number] 01:31:00 Test Item Value Reference Range Interpretation Comments MAGNESIUM (BEAKER) (test code = 1.8 mg/dL 1.6-2.6 627) LACTIC ACID, VENOUS, WHOLE [id number] 01:29:00 Test Item Value Reference Range Interpretation Comments LACTATE BLOOD VENOUS (2) (BEAKER) 0.7 mmol/L 0.5-2.2 (test code = 2872) Effective 12/15/2015: Units/Reference Range ChangeNew: 0.5-2.2 mmol/L Previous: 5-20 mg/dLCBC W/PLT COUNT & AUTO [id number] 01:14:00 Test Item Value Reference Range Interpretation [...] PERCENT (BEAKER) (test code = 2801) POCT-GLUCOSE [id number] 01:01:00 Test Item Value Reference Range Interpretation Comments POC-GLUCOSE METER 138 mg/dL 70-110 H TESTED AT [facility] 6720 [facility] (test code = [place] [facility] 1538) [address] RAD, CHEST, 1 VIEW, NON [id number] 00:17:00Reason for exam:->concern for respiratory distressShould this [...] central venous catheter remains in place. Signed: Gordon Clemens MDReport Verified Date/Time: 05/05/2018 00:17:28 Reading Location: [address] Reading Room POCT-LACTIC ACID, [id number] 23:56:00 Test Item Value Reference Range Interpretation Comments POC-LACTIC ACID, 0.9 mmol/L 0.4-1.3 TESTED AT [facility] 6720 ARTERIAL (BEAKER) RAD[place] (test code = 2804) [address] POCT-BLOOD GASES, [id number] 23:56:00 Test Item Value Reference Range Interpretation Comments TEMP, CELSIUS-POC 36.1 (BEAKER) (test code = 1834) FIO2-POC (BEAKER) 32 TESTED AT [place] [address] (test code = 1835) RADHA [facility] [address] PH, ARTERIAL-POC 7.192 7.350-7.450 LL (BEAKER) (test [...] L ARTERIAL-POC (BEAKER) (test code = 1841) [id number] 23:56:00 Test Item Value Reference Range Interpretation Comments POC-SODIUM (BEAKER) 127 meq/L 135-148 L TESTED A T [place] [address] (test code = 1542) RADHA [facility] [address] [id number] 23:56:00 Test Item Value Reference Range Interpretation Comments POC-POTASSIUM 4.8 meq/L 3.6-5.5 TESTED AT [place] [address] (BEAKER) (test code [facility] 9[address] = 1540) [id number] 23:56:00 Test Item Value Reference Range Interpretation Comments POC-GLUCOSE (BEAKER) 116 mg/dL 70-110 H TESTED AT [place] [address] (test code = 1855) RADHA [facility] [address] POCT-CALCIUM [id number] 23:56:00 Test Item Value Reference Range Interpretation Comments POC-CALCIUM IONIZED 1.20 mmol/L 1.12-1.27 TESTED A T [place] [address] ([facility] (test code = [place] 1536) [address] [id number] 23:56:00 Test Item Value Reference Range Interpretation Comments POC-HEMATOCRIT 25 % 36-45 L TESTED AT [place] [address] ([facility] (test code = [place] [address] 1857) [id number] 23:56:00 Test Item Value Reference Range Interpretation Comments POC-HEMOGLOBIN 8.5 g/dL 12.0-15.0 L TESTED AT [place] [address] ([facility] (test code = [facility] [place] 1856) [address]YAYGFG AT [place] [address] RAD[place] [place] [address] POCT-GLUCOSE [id number] 21:48:00 Test Item Value Reference Range Interpretation Comments POC-GLUCOSE METER 136 mg/dL 70-110 H TESTED AT [place] [address] ([facility]) (test code = [facility] [place] 1538) [address] POCT-GLUCOSE [id number] 19:03:00 Test Item Value Reference Range Interpretation Comments POC-GLUCOSE METER 131 mg/dL 70-110 H TESTED AT [place] [address] ([facility]) (test code = [facility] [place] 1538) [address] POCT-BLOOD GASES, [id number] 16:54:00 Test Item Value Reference Range Interpretation Comments TEMP, CELSIUS-POC 37.0 (BEAKER) (test code = 1834) FIO2-POC (BEAKER) TESTED AT [place] [address] (test code = 1835) D[place] [address] PH, VENOUS-POC 7.224 7.320-7.420 L (BEAKER) (test code = 1842) PCO2, VENOUS-POC 63.8 mm Hg 41.0-51.0 H (BEAKER) (test code = 1843) PO2, VENOUS-POC 31.0 mm Hg 25.0-40.0 (BEAKER) (test code = 1844) SO2, VENOUS-POC 46.0 % 40.0-70.0 (BEAKER) (test code = 1845) HCO3, VENOUS-POC 26.3 meq/L 21.0-29.0 (BEAKER) (test code = 1846) BASE EXCESS, -1.0 meq/L -2.0-3.0 VENOUS-POC ([facility]) (test code = 1847) [id number] 16:54:00 Test Item Value Reference Range Interpretation Comments POC-SODIUM ([facility]) 129 meq/L 135-148 L TESTED A T [place] [address] (test code = 1542) RADHA [facility] [address] [id number] 16:54:00 Test Item Value Reference Range Interpretation Comments POC-POTASSIUM 4.7 meq/L 3.6-5.5 TESTED AT [place] [address] ([facility]) (test code [facility] [address] = 1540) [id number] 16:54:00 Test Item Value Reference Range Interpretation Comments POC-GLUCOSE ([facility]) 116 mg/dL 70-110 H TESTED AT [place] [address] (test code = 1855) [facility] [place] [facility] [address] POCT-CALCIUM [id number] 16:54:00 Test Item Value Reference Range Interpretation Comments POC-CALCIUM IONIZED 1.19 mmol/L 1.12-1.27 TESTED A T [place] [address] ([facility]) (test code = [facility] [place] [facility] 1536) [address] [id number] 16:54:00 Test Item Value Reference Range Interpretation Comments POC-HEMATOCRIT 25 % 36-45 L TESTED AT [place] [address] ([facility]) (test code = [facility] [address]7) [id number] 16:54:00 Test Item Value Reference Range Interpretation Comments POC-HEMOGLOBIN 8.5 g/dL 12.0-15.0 L TESTED AT [place] [address] ([facility]) (test code = [facility] [place] [facility] [address]56) [address]EBBMCE AT [place] [address] [place] [address] POCT-GLUCOSE [id number] 13:26:00 Test Item Value Reference Range Interpretation Comments POC-GLUCOSE METER 124 mg/dL 70-110 H TESTED AT [place] [address] ([facility]) (test code = [facility] [place] [facility] 1538) [address] POCT-LACTIC ACID, [id number] 12:57:00 Test Item Value Reference Range Interpretation Comments POC-LACTIC ACID, 1.1 mmol/L 0.9-1.7 TESTED AT B [facility] 6720 VENOUS (BEAKER) (test [place] code = 2805) [address] COMPREHENSIVE METABOLIC [id number] 09:56:00 Test Item Value Reference Range Interpretation [...] 347) EGFR (BEAKER) (test 12 mL/min/1.73 ESTIMA NAVA GFR IS code = 1092) sq m NOT ACCURATE CREATININE CLEARANCE IN PREDICTING GLOMERULAR FILTRATION RATE . ESTIMATED GFR I S NOT APPLICABLE FOR DIALYSIS PATIEN TS. [id number] 09:48:00 Test Item Value Reference Range Interpretation Comments PHOSPHORUS (BEAKER) (test code = 5.0 mg/dL 2.3-4.7 H 604) [id number] 09:48:00 Test Item Value Reference Range Interpretation Comments MAGNESIUM (BEAKER) (test code = 1.9 mg/dL 1.6-2.6 627) POCT-GLUCOSE [id number] 09:23:00 Test Item Value Reference Range Interpretation Comments POC-GLUCOSE METER 148 mg/dL 70-110 H TESTED AT [facility] 6720 (BEAKER) (test code = [place] 1538) [address] CBC (HEMOGRAM ONLY)2018-05-04 07:04:00 Test Item Value [...] 0-0 (BEAKER) (test code = 413) PROTHROMBIN [id number] 06:20:00 Test Item Value Reference Range Interpretation Comments PROTIME (BEAKER) (test code = 14.0 seconds 11.7-14.7 759) INR (BEAKER) (test code = 370) 1.1 <=5.9 RECOMMENDED COUMADIN/WARFARIN INR THERAPY RANGESSTANDARD DOSE: 2.0 - 3.0 Includes: PROPHYLAXIS forvenous thrombosis, systemic embolization; TREATMENT for venous thrombosis and/or pulmonary embolus.HIGH RISK: Target INR is 2.5-3.5 for patients with mechanical heart valves.[id number] 06:20:00 Test Item Value Reference Range Interpretation Comments PARTIAL THROMBOPLASTIN TIME 38.0 seconds 22.5-36.0 H ([facility]) (test code = 760) POCT-GLUCOSE [id number] 21:01:00 Test Item Value Reference Range Interpretation Comments POC-GLUCOSE METER 113 mg/dL 70-110 H TESTED AT [place] [address] ([facility]) (test code = [facility] 1538) [address] POCT-GLUCOSE [id number] 17:33:00 Test Item Value Reference Range Interpretation Comments POC-GLUCOSE METER 123 mg/dL 70-110 H TESTED AT [place] [address] ([facility]) (test code = [facility] 1538) [address] POCT-GLUCOSE [id number] 12:19:00 Test Item Value Reference Range Interpretation Comments POC-GLUCOSE METER 127 mg/dL 70-110 H TESTED AT [place] [address] ([facility]) (test code = [facility] 1538) [address] POCT-GLUCOSE [id number] 08:08:00 Test Item Value Reference Range Interpretation Comments POC-GLUCOSE METER 129 mg/dL 70-110 H TESTED AT [place] [address] ([facility]) (test code = [facility] 1538) [address] BLOOD GAS, [id number] 07:23:00 Test Item Value Reference Range Interpretation Comments PH VENOUS (BEAKER) (test code = 7.36 7.32-7.42 701) PCO2 VENOUS (BEAKER) (test code = 45 mmHg 41-51 755) PO2 VENOUS (BEAKER) (test code = 45 mmHg 25-40 H 702) O2 SATURATION VENOUS (BEAKER) 79.4 % 40.0-70.0 H (test code = 703) HCO3 VENOUS (BEAKER) (test code = 25 mmol/L 21-29 705) BASE EXCESS VENOUS (BEAKER) (test -0.5 mmol/L -2.0-3.0 code = 704) PATIENT TEMPERATURE (BEAKER) 37.0 C (test code = 1818) FIO2 (BEAKER) (test code = 1819) 20.0 % COMPREHENSIVE METABOLIC [id number] 07:11:00 Test Item Value Reference Range Interpretation [...] 347) EGFR (BEAKER) (test 14 mL/min/1.73 ESTIMA NAVA GFR IS code = 1092) sq m NOT ACCURATE CREATININE CLEARANCE IN PREDICTING GLOMERULAR FILTRATION RATE . ESTIMATED GFR I S NOT APPLICABLE FOR DIALYSIS PATIEN TS. [id number] 07:09:00 Test Item Value Reference Range Interpretation Comments PHOSPHORUS (BEAKER) (test code = 3.6 mg/dL 2.3-4.7 604) [id number] 07:09:00 Test Item Value Reference Range Interpretation Comments MAGNESIUM (BEAKER) (test code = 1.8 mg/dL 1.6-2.6 627) [id number] 06:34:00 Test Item Value Reference Range Interpretation [...] 0-0 (BEAKER) (test code = 413) PROTHROMBIN [id number] 06:33:00 Test Item Value Reference Range Interpretation Comments PROTIME (BEAKER) (test code = 14.5 seconds 11.7-14.7 759) INR (BEAKER) (test code = 370) 1.1 <=5.9 RECOMMENDED COUMADIN/WARFARIN INR THERAPY RANGESSTANDARD DOSE: 2.0 - 3.0 Includes: PROPHYLAXIS forvenous thrombosis, systemic embolization; TREATMENT for venous thrombosis and/or pulmonary embolus.HIGH RISK: Target INR is 2.5-3.5 for patients with mechanical heart valves.LACTIC ACID, VENOUS, WHOLE [id number] 06:32:00 Test Item Value Reference Range Interpretation Comments LACTATE BLOOD VENOUS (2) (BEAKER) 1.0 mmol/L 0.5-2.2 (test code = 2872) Effective 12/15/2015: Units/Reference Range ChangeNew: 0.5-2.2 mmol/L Previous: 5-20 mg/dLPOCT-GLUCOSE [id number] 21:06:00 Test Item Value Reference Range Interpretation Comments POC-GLUCOSE METER 168 mg/dL 70-110 H TESTED AT [place] [address] ([facility]) (test code = R[place] 1538) [address] POCT-GLUCOSE [id number] 19:02:00 Test Item Value Reference Range Interpretation Comments POC-GLUCOSE METER 122 mg/dL 70-110 H TESTED AT [place] [address] ([facility]) (test code = DANIELLA [place] 1538) [address] [id number] 18:09:00 Test Item Value Reference Range Interpretation Comments PHOSPHORUS (BEAKER) (test code = 2.7 mg/dL 2.3-4.7 604) [id number] 18:09:00 Test Item Value Reference Range Interpretation Comments MAGNESIUM (BEAKER) (test code = 1.9 mg/dL 1.6-2.6 627) [id number] 18:09:00 Test Item Value Reference Range Interpretation Comments CALCIUM (BEAKER) (test code = 697) 8.7 mg/dL 8.4-10.2 POCT-GLUCOSE [id number] 13:13:00 Test Item Value Reference Range Interpretation Comments POC-GLUCOSE METER 162 mg/dL 70-110 H TESTED AT [place] [address] ([facility]) (test code = [facility] [place] [facility] 1538) [address] RAD, CHEST, 1 VIEW, NON [id number] 12:12:00Reason for exam:->Pulmobnary edema?Should this be performed [...] Pulmonary opacities probably represent atelectasis. Signed: Cristina Croweeport Verified Date/Time: 05/02/2018 12:12:11 Reading Location: [facility] Radiology Reading Room POCT-GLUCOSE [id number] 08:27:00 Test Item Value Reference Range Interpretation Comments POC-GLUCOSE METER 128 mg/dL 70-110 H TESTED AT [facility] 6720 (BEAKER) (test code = [place] 1538) [address] COMPREHENSIVE METABOLIC [id number] 07:40:00 Test Item Value Reference Range Interpretation [...] 347) EGFR (BEAKER) (test 17 mL/min/1.73 ESTIMA NAVA GFR IS code = 1092) sq m NOT ACCURATE CREATININE CLEARANCE IN PREDICTING GLOMERULAR FILTRATION RATE . ESTIMATED GFR I S NOT APPLICABLE FOR DIALYSIS PATIEN TS. [id number] 07:34:00 Test Item Value Reference Range Interpretation Comments PHOSPHORUS (BEAKER) (test code = 2.7 mg/dL 2.3-4.7 604) [id number] 07:34:00 Test Item Value Reference Range Interpretation Comments MAGNESIUM (BEAKER) (test code = 1.9 mg/dL 1.6-2.6 627) LACTIC ACID, VENOUS, WHOLE [id number] 06:59:00 Test Item Value Reference Range Interpretation [...] WBC 0-0 (BEAKER) (test code = 413) [id number] 06:34:00 Test Item Value Reference Range Interpretation Comments PARTIAL THROMBOPLASTIN TIME 38.8 seconds 22.5-36.0 H (BEAKER) (test code = 760) PROTHROMBIN [id number] 06:33:00 Test Item Value Reference Range Interpretation Comments PROTIME (BEAKER) (test code = 14.8 seconds 11.7-14.7 H 759) INR (BEAKER) (test code = 370) 1.2 <=5.9 RECOMMENDED COUMADIN/WARFARIN INR THERAPY RANGESSTANDARD DOSE: 2.0 - 3.0 Includes: PROPHYLAXIS forvenous thrombosis, systemic embolization; TREATMENT for venous thrombosis and/or pulmonary embolus.HIGH RISK: Target INR is 2.5-3.5 for patients with mechanical heart valves.BLOOD GAS, [id number] 06:29:00 Test Item Value Reference Range Interpretation [...] (test code = 1819) 20 % BLOOD [id number] 06:00:00 Test Item Value Reference Range Interpretation Comments CULTURE (BEAKER) (test No growth in 5 days code = 1095) BLOOD [id number] 06:00:00 Test Item Value Reference Range Interpretation Comments CULTURE (BEAKER) (test No growth in 5 days code = 1095) POCT-GLUCOSE [id number] 20:46:00 Test Item Value Reference Range Interpretation Comments POC-GLUCOSE METER 157 mg/dL 70-110 H TESTED AT [facility] 6720 (BEAKER) (test code = [place] 1538) [address] HEMOGLOBIN AND [id number] 14:24:00 Test Item Value Reference Range Interpretation Comments HEMOGLOBIN (BEAKER) (test code = 7.9 GM/DL 11.2-15.7 L 410) HEMATOCRIT ([facility]) (test code = 23.3 % 34.1-44.9 L 411) POCT-GLUCOSE [id number] 13:32:00 Test Item Value Reference Range Interpretation Comments POC-GLUCOSE METER 116 mg/dL 70-110 H TESTED AT [place] [address] ([facility]) (test code = [facility] 1538) [address] [id number] 12:04:00 Test Item Value Reference Range Interpretation Comments PROCALCITONIN ([facility]) (test code 2.57 ng/mL <0.05 H = 3036) SEPSIS RISK (ng/mL)Low: 0.05-0.50Intermediate: 0.51-2.00High: >=[id number] 11:04:00 Test Item Value Reference Range Interpretation Comments LIPASE ([facility]) (test code = 749) 36 U/L 8-78 POCT-GLUCOSE [id number] 07:09:00 Test Item Value Reference Range Interpretation Comments POC-GLUCOSE METER 91 mg/dL 70-110 TESTED AT [place] [address] ([facility]) (test code = [facility] [address]) CALCIUM, [id number] 06:30:00 Test Item Value Reference Range Interpretation Comments CALCIUM IONIZED ([facility]) (test 1.10 mmol/L 1.12-1.27 L code = 698) PH, BLOOD ([facility]) (test code = 7.40 1810) BLOOD GAS, [id number] 05:31:00 Test Item Value Reference Range Interpretation [...] code = 1819) 20.0 % COMPREHENSIVE METABOLIC [id number] 05:10:00 Test Item Value Reference Range Interpretation [...] 347) EGFR (BEAKER) (test 28 mL/min/1.73 ESTIMA NAVA GFR IS code = 1092) sq m NOT ACCURATE CREATININE CLEARANCE IN PREDICTING GLOMERULAR FILTRATION RATE . ESTIMATED GFR I S NOT APPLICABLE FOR DIALYSIS PATIEN TS. [id number] 05:05:00 Test Item Value Reference Range Interpretation Comments PHOSPHORUS (BEAKER) (test code = 2.2 mg/dL 2.3-4.7 L 604) [id number] 05:05:00 Test Item Value Reference Range Interpretation Comments MAGNESIUM (BEAKER) (test code = 1.9 mg/dL 1.6-2.6 627) LACTIC ACID, VENOUS, WHOLE [id number] 04:44:00 Test Item Value Reference Range Interpretation Comments LACTATE BLOOD VENOUS (2) (BEAKER) 0.7 mmol/L 0.5-2.2 (test code = 2872) Effective 12/15/2015: Units/Reference Range ChangeNew: 0.5-2.2 mmol/L Previous: 5-20 mg/[id number] 04:42:00 Test Item Value Reference Range Interpretation Comments PARTIAL THROMBOPLASTIN TIME 41.1 seconds 22.5-36.0 H (BEAKER) (test code = 760) PROTHROMBIN [id number] 04:41:00 Test Item Value Reference Range Interpretation [...] H (BEAKER) (test code = 413) POCT-GLUCOSE [id number] 22:06:00 Test Item Value Reference Range Interpretation Comments POC-GLUCOSE METER 109 mg/dL 70-110 TESTED AT [place] [address] ([facility]) (test code = [place] 1538) [address] [id number] 21:01:00 Test Item Value Reference Range Interpretation Comments POTASSIUM (BEAKER) 4.1 meq/L 3.5-5.1 Specimen slightly (test code = 379) hemolyzed [id number] 18:20:00 Test Item Value Reference Range Interpretation Comments POTASSIUM (BEAKER) (test code = 4.0 meq/L 3.5-5.1 379) [id number] 18:20:00 Test Item Value Reference Range Interpretation Comments MAGNESIUM (BEAKER) (test code = 1.8 mg/dL 1.6-2.6 627) [id number] 18:20:00 Test Item Value Reference Range Interpretation Comments PHOSPHORUS (BEAKER) (test code = 1.9 mg/dL 2.3-4.7 L 604) [id number] 18:20:00 Test Item Value Reference Range Interpretation Comments CALCIUM (BEAKER) (test code = 697) 8.9 mg/dL 8.4-10.2 POCT-GLUCOSE [id number] 17:24:00 Test Item Value Reference Range Interpretation Comments POC-GLUCOSE METER 100 mg/dL 70-110 TESTED AT [place] [address] [facility] (test code = [place] 1538) [address] BLOOD GAS, [id number] 14:09:00 Test Item Value Reference Range Interpretation [...] (BEAKER) (test code = 1819) 100.0 % [id number] 13:11:00 Test Item Value Reference Range Interpretation Comments POTASSIUM (BEAKER) (test code = 4.2 meq/L 3.5-5.1 379) POCT-GLUCOSE [id number] 12:04:00 Test Item Value Reference Range Interpretation Comments POC-GLUCOSE METER 86 mg/dL 70-110 TESTED AT [place] [address] (BEAKER) (test code = RODOLFO [place] [facility] [address] 1538) [id number] 08:55:00 Test Item Value Reference Range Interpretation Comments POTASSIUM (BEAKER) (test code = 4.2 meq/L 3.5-5.1 379) BLOOD GAS, [id number] 08:49:00 Test Item Value Reference Range Interpretation [...] % Please obtain with patient off bipapPOCT-GLUCOSE [id number] 07:13:00 Test Item Value Reference Range Interpretation Comments POC-GLUCOSE METER 83 mg/dL 70-110 TESTED AT [facility] [address] (BEAKER) (test code = [place] [address] 7188) [id number] 04:01:00 Test Item Value Reference Range Interpretation Comments PHOSPHORUS (BEAKER) (test code = 1.8 mg/dL 2.3-4.7 L 604) [id number] 04:01:00 Test Item Value Reference Range Interpretation Comments MAGNESIUM (BEAKER) (test code = 1.7 mg/dL 1.6-2.6 627) COMPREHENSIVE METABOLIC [id number] 04:01:00 Test Item Value Reference Range Interpretation [...] 347) EGFR (BEAKER) (test 45 mL/min/1.73 ESTIMA NAVA GFR IS code = 1092) sq m NOT ACCURATE CREATININE CLEARANCE IN PREDICTING GLOMERULAR FILTRATION RATE . ESTIMATED GFR I S NOT APPLICABLE FOR DIALYSIS PATIEN TS. LACTIC ACID, ARTERIAL, WHOLE [id number] 03:49:00 Test Item Value Reference Range Interpretation [...] 0-0 H (BEAKER) (test code = 413) [id number] 03:47:00 Test Item Value Reference Range Interpretation Comments PARTIAL THROMBOPLASTIN TIME 32.8 seconds 22.5-36.0 (BEAKER) (test code = 760) PROTHROMBIN [id number] 03:46:00 Test Item Value Reference Range Interpretation Comments PROTIME (BEAKER) (test code = 15.0 seconds 11.7-14.7 H 759) INR (BEAKER) (test code = 370) 1.2 <=5.9 RECOMMENDED COUMADIN/WARFARIN INR THERAPY RANGESSTANDARD DOSE: 2.0 - 3.0 Includes: PROPHYLAXIS forvenous thrombosis, systemic embolization; TREATMENT for venous thrombosis and/or pulmonary embolus.HIGH RISK: Target INR is 2.5-3.5 for patients with mechanical heart valves.CALCIUM, [id number] 03:38:00 Test Item Value Reference Range Interpretation Comments CALCIUM IONIZED (BEAKER) (test 1.17 mmol/L 1.12-1.27 code = 698) PH, BLOOD (BEAKER) (test code = 7.39 1810) POCT-GLUCOSE [id number] 23:04:00 Test Item Value Reference Range Interpretation Comments POC-GLUCOSE METER 94 mg/dL 70-110 TESTED AT [place] [address] ([facility]) (test code = [facility] [place] [facility] [address] 1538) [id number] 21:57:00 Test Item Value Reference Range Interpretation Comments POTASSIUM (BEAKER) (test code = 4.4 meq/L 3.5-5.1 379) POCT-GLUCOSE [id number] 18:02:00 Test Item Value Reference Range Interpretation Comments POC-GLUCOSE METER 99 mg/dL 70-110 TESTED AT [place] [address] ([facility]) (test code = [facility] [address] 1538) BLOOD GAS, [id number] 17:15:00 Test Item Value Reference Range Interpretation [...] (BEAKER) (test 37.0 C code = 1818) [id number] 16:07:00 Test Item Value Reference Range Interpretation Comments POTASSIUM (BEAKER) (test code = 4.4 meq/L 3.5-5.1 379) [id number] 16:07:00 Test Item Value Reference Range Interpretation Comments MAGNESIUM (BEAKER) (test code = 2.0 mg/dL 1.6-2.6 627) [id number] 16:07:00 Test Item Value Reference Range Interpretation Comments PHOSPHORUS (BEAKER) (test code = 2.1 mg/dL 2.3-4.7 L 604) [id number] 16:07:00 Test Item Value Reference Range Interpretation Comments CALCIUM (BEAKER) (test code = 697) 8.2 mg/dL 8.4-10.2 L MR, ABDOMEN, [id number] 15:19:00FINAL REPORT INDICATION:57-year-old female with abdominal pain, [...] may also be related to pancreatitis. Signed: Jesús Laboy MDReport Verified Date/Time: 04/29/2018 15:19:21 Reading Location: [facility] B1 C013Y CT Body Reading Room U/S, RENAL WITH [id number] 14:53:00Reason for exam:->ENRIQUE with severe sepsisShould this [...] Ken MDReportVerified Date/Time: 04/29/2018 14:53:07 Reading Location: [facility] B1 P006J Ultrasound Reading Room BLOOD GAS, [id number] 14:33:00 Test Item Value Reference Range Interpretation [...] (test code = 1819) 100.0 % POCT-GLUCOSE [id number] 12:20:00 Test Item Value Reference Range Interpretation Comments POC-GLUCOSE METER 116 mg/dL 70-110 H TESTED AT [facility] 6720 (BEAKER) (test code = [place] 1538) [address] BLOOD GAS, [id number] 10:57:00 Test Item Value Reference Range Interpretation [...] (BEAKER) (test code = 1819) 100.0 % [id number] 10:19:00 Test Item Value Reference Range Interpretation [...] METER 125 mg/dL 70-110 H TESTED AT [facility] 6720 (BEAKER) (test code = [place] 1538) [address] BLOOD GAS, [id number] 06:41:00 Test Item Value Reference Range Interpretation [...] (test code = 1819) 28.0 % CALCIUM, [id number] 06:14:00 Test Item Value Reference Range Interpretation Comments CALCIUM IONIZED (BEAKER) (test 1.11 mmol/L 1.12-1.27 L code = 698) PH, BLOOD (BEAKER) (test code = 7.20 1810) COMPREHENSIVE METABOLIC [id number] 06:06:00 Test Item Value Reference Range Interpretation [...] 347) EGFR (BEAKER) (test 18 mL/min/1.73 ESTIMA NAVA GFR IS code = 1092) sq m NOT ACCURATE CREATININE CLEARANCE IN PREDICTING GLOMERULAR FILTRATION RATE . ESTIMATED GFR I S NOT APPLICABLE FOR DIALYSIS PATIEN TS. BASIC METABOLIC [id number] 06:05:00 Test Item Value Reference Range Interpretation [...] 697) EGFR (BEAKER) (test 18 mL/min/1.73 ESTIMA NAVA GFR IS code = 1092) sq m NOT ACCURATE CREATININE CLEARANCE IN PREDICTING GLOMERULAR FILTRATION RATE . ESTIMATED GFR I S NOT APPLICABLE FOR DIALYSIS PATIEN TS. [id number] 05:13:00 Test Item Value Reference Range Interpretation Comments PHOSPHORUS (BEAKER) (test code = 3.5 mg/dL 2.3-4.7 604) [id number] 05:13:00 Test Item Value Reference Range Interpretation Comments MAGNESIUM (BEAKER) (test code = 2.2 mg/dL 1.6-2.6 627) HIV-1 ANTIGEN WITH HIV-1/2 [id number] 05:12:00 Test Item Value Reference Range Interpretation Comments HIV-1 ANTIGEN WITH HIV 1\\T\\2 Nonreactive Nonreactive ANTIBODY (2) (BEAKER) (test code = 2586) LACTIC ACID, ARTERIAL, WHOLE [id number] 04:48:00 Test Item Value Reference Range Interpretation Comments LACTATE BLOOD ARTERIAL (2) 1.0 mmol/L 0.5-2.2 (BEAKER) (test code = 2874) Effective 12/15/2015: Units/Reference Range ChangeNew: 0.5-2.2 mmol/L Previous: 5-20 mg/[id number] 04:47:00 Test Item Value Reference Range Interpretation Comments PARTIAL THROMBOPLASTIN TIME 34.3 seconds 22.5-36.0 (BEAKER) (test code = 760) PROTHROMBIN [id number] 04:45:00 Test Item Value Reference Range Interpretation [...] WBC 0-0 (BEAKER) (test code = 413) [id number] 00:18:00 Test Item Value Reference Range Interpretation Comments POTASSIUM (BEAKER) (test code = 3.9 meq/L 3.5-5.1 379) POCT-GLUCOSE [id number] 22:25:00 Test Item Value Reference Range Interpretation Comments POC-GLUCOSE METER 172 mg/dL 70-110 H TESTED AT [place] [address] [facility] (test code = [place] 1538) [address] [id number] 20:46:00 Test Item Value Reference Range Interpretation Comments CALCIUM (BEAKER) (test code = 697) 7.1 mg/dL 8.4-10.2 L [id number] 20:34:00 Test Item Value Reference Range Interpretation Comments PHOSPHORUS (BEAKER) 3.5 mg/dL 2.3-4.7 Specimen slightly (test code = 604) hemolyzed [id number] 20:34:00 Test Item Value Reference Range Interpretation Comments POTASSIUM (BEAKER) 3.9 meq/L 3.5-5.1 Specimen slightly (test code = 379) hemolyzed [id number] 20:32:00 Test Item Value Reference Range Interpretation Comments MAGNESIUM (BEAKER) 2.2 mg/dL 1.6-2.6 Specimen slightly (test code = 627) hemolyzed POCT-GLUCOSE [id number] 18:02:00 Test Item Value Reference Range Interpretation Comments POC-GLUCOSE METER 151 mg/dL 70-110 H TESTED AT [place] [address] [facility] (test code = [place] 1538) [address] [id number] 15:43:00 Test Item Value Reference Range Interpretation Comments POTASSIUM (BEAKER) (test code = 4.0 meq/L 3.5-5.1 379) RAD, CHEST, 1 VIEW, NON [id number] 15:34:00Reason for exam:->HD cath placementShould this be performed at the bedside?->YesFINAL REPORT AP chest HISTORY: 04/28/2018 IMPRESSION:Right IJ dialysis catheter placed with tip at upper SVC. Remainder supportive lines unchanged. Stable cardiac silhouette. Hypoinflation. Mild perihilar atelectasis. No pneumothorax. Signed: Madeleine Santacruz MDReport Verified Date/Time: 04/28/2018 15:34:26 Reading Location: [address] Ortho Consult Reading Room PLATELET [id number] 15:32:00 Test Item Value Reference Range Interpretation Comments PLATELET COUNT (BEAKER) (test 105 K/CU MM 150-450 L code = 756) Please draw in citrate (blue top) tube at next blood drawACETAMINOPHEN LEVEL 2018-04-28 11:35:00 Test Item Value Reference Range Interpretation Comments ACETAMINOPHEN LEVEL (BEAKER) (test < ug/mL 10.0-30.0 L code = 344) Therapeutic Range: 10.0-30.0 g/mLToxic Levels: >200.0 g/mLPOCT-GLUCOSE [id number] 11:15:00 Test Item Value Reference Range Interpretation Comments POC-GLUCOSE METER 152 mg/dL 70-110 H TESTED AT [facility] 6720 (BEAKER) (test code = [facility] 1538) [address] HEPATITIS B SURFACE [id number] 11:06:00 Test Item Value Reference Range Interpretation Comments HEPATITIS B SURFACE ANTIGEN (2) Nonreactive Nonreactive (BEAKER) (test code = 2585) HEPATITIS B CORE ANTIBODY, [id number] 11:06:00 Test Item Value Reference Range Interpretation Comments HEPATITIS B CORE IGM ANTIBODY Nonreactive Nonreactive (BEAKER) (test code = 645) HEPATITIS C [id number] 11:06:00 Test Item Value Reference Range Interpretation Comments HEPATITIS C ANTIBODY (BEAKER) Nonreactive Nonreactive (test code = 367) HEPATITIS A ANTIBODY, [id number] 11:06:00 Test Item Value Reference Range Interpretation Comments HEPATITIS A IGM ANTIBODY (BEAKER) Nonreactive Nonreactive (test code = 498) PROTEIN, RANDOM [id number] 11:03:00 Test Item Value Reference Range Interpretation Comments PROTEIN, URINE (BEAKER) (test code 191 mg/dL 0-14 H = 1569) HEMOGLOBIN [id number] 10:45:00 Test Item Value Reference Range Interpretation Comments HEMOGLOBIN A1C (BEAKER) (test code = 5.5 % 4.3-6.1 368) CREATININE, RANDOM [id number] 10:42:00 Test Item Value Reference Range Interpretation Comments CREATININE URINE (BEAKER) (test 50.7 mg/dL code = 375) Reference Range: No NormalsSODIUM, RANDOM [id number] 10:42:00 Test Item Value Reference Range Interpretation Comments SODIUM URINE (BEAKER) (test code = 48 meq/L 243) Reference Range: No NormalsBASIC METABOLIC [id number] 09:24:00 Test Item Value Reference Range Interpretation [...] 697) EGFR (BEAKER) (test 10 mL/min/1.73 ESTIMA NAVA GFR IS code = 1092) sq m NOT ACCURATE CREATININE CLEARANCE IN PREDICTING GLOMERULAR FILTRATION RATE . ESTIMATED GFR I S NOT APPLICABLE FOR DIALYSIS PATIEN TS. CALCIUM, [id number] 09:19:00 Test Item Value Reference Range Interpretation Comments CALCIUM IONIZED (BEAKER) (test 0.93 mmol/L 1.12-1.27 L code = 698) PH, BLOOD (BEAKER) (test code = 7.20 1810) [id number] 09:13:00 Test Item Value Reference Range Interpretation Comments HAPTOGLOBIN (BEAKER) (test code = 164 mg/dL 14-258 366) [id number] 09:12:00 Test Item Value Reference Range Interpretation Comments PHOSPHORUS (BEAKER) (test code = 4.5 mg/dL 2.3-4.7 604) [id number] 09:12:00 Test Item Value Reference Range Interpretation Comments MAGNESIUM (BEAKER) (test code = 1.7 mg/dL 1.6-2.6 627) RAD, CHEST, 1 VIEW, NON [id number] 09:01:00Reason for exam:- >hypoxiaShould this be performed at the bedside?->YesFINAL REPORT AP chest HISTORY: Hypoxia COMPARISON: 04/27/2018 IMPRESSION:Suppor tive lines unchanged. Stable cardiac silhouette. Minimal perihilar atelectasis. No pneumothorax. Signed: Madeleine Santacruz MDReport Verified Date/Time: 04/28/2018 09:01:47 Reading Location: [facility] L957GHsiun Consult Reading Room PHERAL BLOOD SMEAR - HOLD [id number] 08:58:00 Test Item Value Reference Range Interpretation Comments PERIPHERAL SMEAR SAVE (BEAKER) (test saved code = 1815) RETICULOCYTE [id number] 08:58:00 Test Item Value Reference Range Interpretation Comments RETICULOCYTE COUNT PCT (BEAKER) (test 3.6 % 0.5-1.7 H code = 575) HEMOGLOBIN AND [id number] 08:52:00 Test Item Value Reference Range Interpretation Comments HEMOGLOBIN (BEAKER) (test code = 8.2 GM/DL 11.2-15.7 L 410) HEMATOCRIT (BEAKER) (test code = 24.9 % 34.1-44.9 L 411) CBC W/PLT COUNT & AUTO [id number] 07:40:00 Test Item Value Reference Range Interpretation [...] (BEAKER) Present (test code = 483) URINE [id number] 05:57:00 Test Item Value Reference Range Interpretation Comments CULTURE (BEAKER) (test code = 1095) No growth [id number] 05:00:00 Test Item Value Reference Range Interpretation Comments PHOSPHORUS (BEAKER) (test code = 4.4 mg/dL 2.3-4.7 604) [id number] 05:00:00 Test Item Value Reference Range Interpretation Comments MAGNESIUM (BEAKER) (test code = 1.6 mg/dL 1.6-2.6 627) HEMOGLOBIN AND [id number] 04:48:00 Test Item Value Reference Range Interpretation Comments HEMOGLOBIN (BEAKER) (test code = 8.0 GM/DL 11.2-15.7 L 410) HEMATOCRIT (BEAKER) (test code = 24.0 % 34.1-44.9 L 411) LIPID [id number] 03:38:00 Test Item Value Reference Range Interpretation [...] 130-159 High 160-189 Very High >=190HEPATIC FUNCTION [id number] 03:38:00 Test Item Value Reference Range Interpretation [...] 1138 U/L 125-220 H code = 635) [id number] 03:38:00 Test Item Value Reference Range Interpretation Comments LIPASE (BEAKER) (test code = 749) 525 U/L 8-78 H C-REACTIVE [id number] 03:38:00 Test Item Value Reference Range Interpretation Comments C-REACTIVE PROTEIN (BEAKER) (test 12.99 mg/dL 0.00-0.50 H code = 676) [id number] 03:23:00 Test Item Value Reference Range Interpretation Comments FIBRINOGEN LEVEL (BEAKER) (test 328 mg/dl 225-434 code = 658) [id number] 03:23:00 Test Item Value Reference Range Interpretation Comments PROTIME (BELEO) (test code = 16.2 seconds 11.7-14.7 H 759) INR (BEAKER) (test code = 370) 1.3 <=5.9 PARTIAL THROMBOPLASTIN TIME 26.9 seconds 22.5-36.0 (AKER) (test code = 760) RECOMMENDED COUMADIN/WARFARIN INR THERAPY RANGESSTANDARD DOSE: 2.0 - 3.0 Includes: PROPHYLAXIS forvenous thrombosis, systemic embolization; TREATMENT for venous thrombosis and/or pulmonary embolus.HIGH RISK: Target INR is 2.5-3.5 for patients with mechanical heart valves.PROTHROMBIN TIME/[id number] 03:22:00 Test Item Value Reference Range Interpretation Comments PROTIME (BELEO) (test code = 16.2 seconds 11.7-14.7 H 759) INR ([facility]) (test code = 370) 1.3 <=5.9 RECOMMENDED COUMADIN/WARFARIN INR THERAPY RANGESSTANDARD DOSE: 2.0 - 3.0 Includes: PROPHYLAXIS forvenous thrombosis, systemic embolization; TREATMENT for venous thrombosis and/or pulmonary embolus.HIGH RISK: Target INR is 2.5-3.5 for patients with mechanical heart valves.POCT-GLUCOSE [id number] 02:57:00 Test Item Value Reference Range Interpretation Comments POC-GLUCOSE METER 135 mg/dL 70-110 H TESTED AT [place] [address] ([facility]) (test code = DANIELALCIDES [place] [facility] 1538) [address] POCT-GLUCOSE [id number] 00:21:00 Test Item Value Reference Range Interpretation Comments POC-GLUCOSE METER 177 mg/dL 70-110 H TESTED AT [facility] 67 ([facility]) (test code = [place] 1538) [address] HEMOGLOBIN AND [id number] 00:21:00 Test Item Value Reference Range Interpretation Comments HEMOGLOBIN (LEO) (test code = 8.3 GM/DL 11.2-15.7 L 410) HEMATOCRIT ([facility]) (test code = 24.6 % 34.1-44.9 L 411) POCT-GLUCOSE [id number] 22:08:00 Test Item Value Reference Range Interpretation Comments POC-GLUCOSE METER 156 mg/dL 70-110 H TESTED AT [facility] 6720 (BEAKER) (test code = [place] 1538) [address] POCT-GLUCOSE [id number] 18:16:00 Test Item Value Reference Range Interpretation Comments POC-GLUCOSE METER 156 mg/dL 70-110 H TESTED AT [facility] 6720 (BEAKER) (test code = [place] 1538) [address] LACTATE DEHYDROGENASE (LDH)2018-04-27 16:18:00 Test Item Value Reference Range Interpretation Comments LACTATE DEHYDROGENASE (BEAKER) (test 1130 U/L 125-220 H code = 635) RAD, CHEST, 1 VIEW, NON [id number] 15:58:00Reason for exam:->LIJ placementShould this be performed [...] MDReport Verified Date/Time: 04/27/2018 15:58:19 Reading Location: [address] Transitional Reading Room HEMOGLOBIN AND [id number] 15:37:00 Test Item Value Reference Range Interpretation Comments HEMOGLOBIN (BEAKER) (test code = 8.8 GM/DL 11.2-15.7 L 410) HEMATOCRIT (BEAKER) (test code = 26.1 % 34.1-44.9 L 411) PERIPHERAL BLOOD SMEAR - HOLD [id number] 14:50:00 Test Item Value Reference Range Interpretation Comments PERIPHERAL SMEAR SAVE (BEAKER) (test saved code = 1815) C-REACTIVE [id number] 12:47:00 Test Item Value Reference Range Interpretation Comments C-REACTIVE PROTEIN (BEAKER) (test 9.17 mg/dL 0.00-0.50 H code = 676) POCT-GLUCOSE [id number] 12:15:00 Test Item Value Reference Range Interpretation Comments POC-GLUCOSE METER 164 mg/dL 70-110 H TESTED AT [facility] 6720 (BEAKER) (test code = [place] 1538) [address] B-TYPE NATRIURETIC FACTOR (BNP)2018-04-27 11:37:00 Test Item Value Reference Range Interpretation Comments B-TYPE NATRIURETIC PEPTIDE (BEAKER) 176 pg/mL 0-100 H (test code = 700) HEMOGLOBIN AND [id number] 11:08:00 Test Item Value Reference Range Interpretation Comments HEMOGLOBIN (BEAKER) (test code = 8.7 GM/DL 11.2-15.7 L 410) HEMATOCRIT (BEAKER) (test code = 25.6 % 34.1-44.9 L 411) [id number] 10:07:00 Test Item Value Reference Range Interpretation Comments FERRITIN (BEAKER) (test code = 4542 ng/mL 5-275 H 361) VITAMIN [id number] 10:06:00 Test Item Value Reference Range Interpretation Comments VITAMIN B12 (BEAKER) (test code = > pg/mL 213-816 H 774) CBC W/PLT COUNT & AUTO [id number] 09:11:00 Test Item Value Reference Range Interpretation [...] 36 % 20-55 (test code = 2590) [id number] 09:03:00 Test Item Value Reference Range Interpretation Comments PHOSPHORUS (BEAKER) (test code = 4.2 mg/dL 2.3-4.7 604) LACTIC ACID, VENOUS, WHOLE [id number] 09:00:00 Test Item Value Reference Range Interpretation Comments LACTATE BLOOD VENOUS (2) (BEAKER) 1.0 mmol/L 0.5-2.2 (test code = 2872) Effective 12/15/2015: Units/Reference Range ChangeNew: 0.5-2.2 mmol/L Previous: 5-20 mg/dLHEMOGLOBIN [id number] 08:35:00 Test Item Value Reference Range Interpretation Comments HEMOGLOBIN A1C (BEAKER) (test code = 5.0 % 4.3-6.1 368) U/S, ABDOMINAL, [id number] 07:57:00Abdomen limited area? Add comment if clarification [...] could be further assessed with MRCP. Signed: Kimmie Baeza MDReport Verified Date/Time: 04/27/2018 07:57:35 Reading Location: [facility] C013X Ortho Consult Reading Room [id number] 07:07:00 Test Item Value Reference Range Interpretation Comments MAGNESIUM (BEAKER) (test code = 1.8 mg/dL 1.6-2.6 627) LACTIC ACID, VENOUS, WHOLE [id number] 07:05:00 Test Item Value Reference Range Interpretation Comments LACTATE BLOOD VENOUS 1.1 mmol/L 0.5-2.2 Specime n slightly (2) (BEAKER) (test hemolyzed code = 2872) Effective 12/15/2015: Units/Reference Range ChangeNew: 0.5-2.2 mmol/L Previous: 5-20 mg/dLHEMOGLOBIN AND [id number] 06:54:00 Test Item Value Reference Range Interpretation Comments HEMOGLOBIN (BEAKER) (test code = 9.0 GM/DL 11.2-15.7 L 410) HEMATOCRIT (BEAKER) (test code = 26.7 % 34.1-44.9 L 411) POCT-GLUCOSE [id number] 06:28:00 Test Item Value Reference Range Interpretation Comments POC-GLUCOSE METER 122 mg/dL 70-110 H TESTED AT [facility] 6720 (BEAKER) (test code = RODOLFO [place] 1538) [address] [id number] 05:17:00 Test Item Value Reference Range Interpretation Comments AMMONIA (BEAKER) (test code = 348) 40 mol/L 18-72 POCT-GLUCOSE [id number] 04:46:00 Test Item Value Reference Range Interpretation Comments POC-GLUCOSE METER 166 mg/dL 70-110 H TESTED AT [facility] 6720 (BEAKER) (test code = [place] 1538) [address] BLOOD GAS, [id number] 04:15:00 Test Item Value Reference Range Interpretation [...] (test code = 1819) 32 URINALYSIS W/ [id number] 01:36:00 Test Item Value Reference Range Interpretation [...] 1584) SOURCE(BEAKER) (test code = Urine, [place] 0575) HEMOGLOBIN AND [id number] 01:19:00 Test Item Value Reference Range Interpretation Comments HEMOGLOBIN (BEAKER) (test code = 9.0 GM/DL 11.2-15.7 L 410) HEMATOCRIT (BEAKER) (test code = 26.3 % 34.1-44.9 L 411) [id number] 00:57:00 Test Item Value Reference Range Interpretation Comments PHOSPHORUS (BEAKER) (test code = 0.7 mg/dL 2.3-4.7 LL 604) COMPREHENSIVE METABOLIC [id number] 00:55:00 Test Item Value Reference Range Interpretation [...] 347) EGFR (BEAKER) (test 19 mL/min/1.73 ESTIMA NAVA GFR IS code = 1092) sq m NOT ACCURATE CREATININE CLEARANCE IN PREDICTING GLOMERULAR FILTRATION RATE . ESTIMATED GFR I S NOT APPLICABLE FOR DIALYSIS PATIEN TS. Specimen slightly [id number] 00:53:00 Test Item Value Reference Range Interpretation Comments MAGNESIUM (BEAKER) (test code = 1.9 mg/dL 1.6-2.6 627) LIPID [id number] 00:53:00 Test Item Value Reference Range Interpretation [...] 160-189 Very High >=190 Specimen slightly ictericCALCIUM, [id number] 00:50:00 Test Item Value Reference Range Interpretation Comments CALCIUM IONIZED (BEAKER) (test 1.02 mmol/L 1.12-1.27 L code = 698) PH, BLOOD (BEAKER) (test code = 7.31 1810) LACTIC ACID, VENOUS, WHOLE [id number] 00:47:00 Test Item Value Reference Range Interpretation Comments LACTATE BLOOD VENOUS (2) (BEAKER) 3.6 mmol/L 0.5-2.2 H (test code = 2872) Effective 12/15/2015: Units/Reference Range ChangeNew: 0.5-2.2 mmol/L Previous: 5-20 mg/dLCBC W/PLT COUNT & AUTO [id number] 00:40:00 Test Item Value Reference Range Interpretation [...] Neutrophilic inclusions seen.RAD, CHEST, 1 VIEW, NON [id number] 00:24:00Reason for exam:->sob, coughShould this be performed [...] Mares Verified Date/Time: 04/27/2018 00:24:54 Reading Location: [address] Body Reading Room PROTHROMBIN [id number] 23:51:00 Test Item Value Reference Range Interpretation Comments PROTIME (BEAKER) (test code = 15.5 seconds 11.7-14.7 H 759) INR (BEAKER) (test code = 370) 1.2 <=5.9 RECOMMENDED COUMADIN/WARFARIN INR THERAPY RANGESSTANDARD DOSE: 2.0 - 3.0 Includes: PROPHYLAXIS forvenous thrombosis, systemic embolization; TREATMENT for venous thrombosis and/or pulmonary embolus.HIGH RISK: Target INR is 2.5-3.5 for patients with mechanical heart valves.[id number] 23:51:00 Test Item Value Reference Range Interpretation Comments FIBRINOGEN LEVEL (MARIA ELENA) (test 231 mg/dl 225-621 code = 658)
[2021-08-26 23:01] LABS: Urine Blood Negative (Negative); Urine Glucose Negative (Negative); Urine Protein 1+ (Negative); Urine Specific Gravity >=1.030 (1.005-1.030)
[2021-08-26 23:31] LABS: Urine Bacteria 20-50 /HPF (<20); Urine Mucus 3+ /HPF (NONE SEEN); Urine RBC <5 /HPF (NONE SEEN)
[2021-08-26 23:39] LABS: Barbiturates NEGATIVE (NEGATIVE); Benzodiazepines NEGATIVE (NEGATIVE); Cocaine NEGATIVE (NEGATIVE); METHAMPHETAM NEGATIVE (NEGATIVE); Methadone NEGATIVE (NEGATIVE); Opiates NEGATIVE (NEGATIVE); Phencyclidine NEGATIVE (NEGATIVE); THC Cannibis NEGATIVE (NEGATIVE)
[2021-08-26 23:42] LABS: Absolute Lymphocytes (CBC) 3.2 K/uL (0.7-4.9); Hematocrit 44.6 % (36.0-45.0); Lymphocytes % 43.1 % (15.3-44.8); RBC Red Blood Cell Count 5.03 M/uL (3.86-4.86)
[2021-08-26 23:44] LABS: Protime INR 0.92
[2021-08-27 00:03] LABS: ALT/SGPT 30 U/L (12-78); AST/SGOT 20 U/L (15-37); Albumin 3.1 g/dL (3.4-5.0); Alkaline Phosphatase 97 U/L (45-117); BUN Blood Urea Nitrogen 13 mg/dL (7-18); Bicarbonate 30 mmol/L (21-32); Bilirubin Direct < 0.1 mg/dL (0-0.2); Bilirubin Total 0.2 mg/dL (0.2-1.0); Glucose Level 135 mg/dL (74-106); Magnesium 1.8 mg/dL (1.8-2.4); NT PRO-BNP 111 pg/mL (<125); Potassium 3.1 mmol/L (3.5-5.1); Protein, Total 7.2 g/dL (6.4-8.2); Sodium Level 147 mmol/L (136-145)
[2021-08-27] MEDS ORDERED: POTASSIUM 25 MEQ EFFERV TAB ONE (01:56)
[2021-08-27] MEDS ORDERED: THIAMINE 200 MG/2 ML INJ ONE (01:56)
[2021-08-27] MEDS ORDERED: NA CHLORIDE 0.9% 1,000 ML ONE (01:58)
[2021-08-27] MEDS ORDERED: FOLIC ACID 5 MG/ML VIAL ONE (01:58)
[2021-08-27] MEDS ORDERED: FAMOTIDINE 20 MG/2 ML VIAL IV ONE (03:16)
[2021-08-27] MEDS ORDERED: ONDANSETRON 4 MG/2 ML VIAL ONE (03:16)
[2021-08-27] MEDS ORDERED: LORazepam 2 MG/ML VIAL ONE (03:16)
--- NOTE | 2021-08-27 06:02 | EDPHYS ---
Physician Documentation [facility] Name: Madelaine Leonard Age: 60 yrs Sex: Female : 1960 Arrival Date: 08/26/2021 Time: 21:56 Bed 7 Private MD: ED Physician Jose Daniel Sanderson HPI: 08/26 22:35 This 60 yrs old Female presents to ER via EMS with complaints of Hallucinations. cp 22:35 The patient presents to the emergency department with psychosis, has experienced cp auditory hallucinations, has experienced visual hallucinations. Associated signs and symptoms: Pertinent negatives: fever, homicidal ideation, suicide ideation. Patient brought to ED by EMS after reportedly speaking "Moroccan". Patient reports she sees and talks to three people in her her that appear "ordinary". Patient reports they talk and watch TV together. Patient denies being threatened. Patient reports fall in home 1 week ago in which she struck left side of head. Historical: - Allergies: 23:10 Latex, Natural Rubber; margoth 23:10 Levofloxacin; margoth 23:10 Naproxen Sodium; margoth 23:10 PENICILLINS; margoth - PMHx: 23:10 Chronic pain; Fibromyalgia; margoth - Immunization history:: Adult Immunizations not immunized. - Social history:: Smoking status: Patient reports the use of cigarette tobacco products, Patient uses alcohol, occasionally. ROS: 22:40 Constitutional: Negative for body aches, chills, fever, poor PO intake. cp 22:40 Eyes: Negative for injury, pain, redness, and discharge. cp 22:40 ENT: Negative for ear pain, sore throat, difficulty swallowing, difficulty handling secretions. 22:40 Cardiovascular: Negative for chest pain, edema, palpitations. 22:40 Respiratory: Negative for cough, shortness of breath, wheezing. 22:40 Abdomen/GI: Negative for abdominal pain, vomiting, diarrhea, constipation. 22:40 Neuro: Negative for dizziness, headache, syncope, weakness. 22:40 Psych: Positive for auditory hallucinations, visual hallucinations, Negative for homicidal ideation, suicide gesture, suicidal ideation. 22:40 All other systems are negative. Exam: 22:45 Constitutional: The patient appears in no acute distress, alert, awake, cp non-diaphoretic, non-toxic, well developed, well nourished, obese. 22:45 Head/Face: Normocephalic, atraumatic. cp 22:45 Eyes: Periorbital structures: appear normal, Pupils: equal, round, and reactive to light and accomodation, Extraocular movements: intact throughout, Conjunctiva: normal, no exudate, no injection, Sclera: no appreciated abnormality, Lids and lashes: appear normal, bilaterally. 22:45 ENT: External ear(s): are unremarkable, Nose: is normal, Mouth: Lips: moist, Oral mucosa: moist, Posterior pharynx: Airway: no evidence of obstruction, patent. 22:45 Neck: C-spine: vertebral tenderness, is not appreciated, crepitus, is not appreciated, ROM/movement: is normal, is supple, without pain, no range of motions limitations. 22:45 Chest/axilla: Inspection: normal. 22:45 Cardiovascular: Rate: normal, Rhythm: regular, Edema: is not appreciated, JVD: is not appreciated. 22:45 Respiratory: the patient does not display signs of respiratory distress, Respirations: normal, no use of accessory muscles, no retractions, labored breathing, is not present, Breath sounds: are clear throughout, no decreased breath sounds, no stridor, no wheezing. 22:45 Abdomen/GI: Inspection: abdomen appears normal, Palpation: abdomen is soft and non-tender, in all quadrants. 22:45 Neuro: Orientation: to person, place \\T\\ time. Mentation: able to follow commands, Motor: moves all fours, strength is normal, Sensation: no obvious gross deficits. Vital Signs: 22:00 BP 133 / 83; Pulse 88; Resp 18; Pulse Ox 96% on R/A; Weight 113.4 kg; Height 5 ft. 8 margoth in. (172.72 cm); 23:39 BP 146 / 93; Pulse 101; Resp 17 S; Pulse Ox 98% on 1 lpm NC; lg3 08/27 00:30 BP 153 / 61; Pulse 100; Resp 18; Temp 98.4; Pulse Ox 97% 1 lpm ; Weight 136.08 kg; margoth Height 5 ft. 4 in. (162.56 cm); 01:30 BP 157 / 81; Pulse 98; Resp 20; Pulse Ox 96% on 1 lpm NC; margoth 03:35 BP 169 / 87; Pulse 95; Resp 20; Pulse Ox 96% on 1 lpm NC; margoth 04:17 BP 167 / 99; Pulse 99; Resp 20; Pulse Ox 94% on R/A; margoth 05:13 BP 185 / 92; Pulse 91; Resp 18; Temp 98.5; Pulse Ox 96% on R/A; Pain 0/10; margoth 05:54 BP 159 / 93; Pulse 82; Resp 18; Temp 98.5; Pulse Ox 97% on R/A; Pain 0/10; margoth 06:44 BP 148 / 83; Pulse 88; Resp 18; Temp 98.5; Pulse Ox 97% on R/A; Pain 0/10; margoth 00:30 Body Mass Index 51.49 (136.08 kg, 162.56 cm) margoth MDM: 08/26 23:00 Differential diagnosis: drug withdrawal. acute psychotic break, depression, psychosis cp secondary to non-compliance, alcohol intoxication, illegal drug use. 23:30 Patient medically screened. cp 08/27 02:00 Data reviewed: vital signs, nurses notes, lab test result(s), EKG, radiologic studies, cp CT scan, plain films. 03:15 Transition of care: After a detail discussion of the patient's case, care is cp transferred to Jose Daniel Sanderson MD. 08/26 22:26 Order name: Basic Metabolic Panel; Complete Time: 01:03 cp 08/27 01:03 Interpretation: Normal except: NA 147; K 3.1; CL 112; GLUC 135; CRE 0.54; CA 8.2. cp 08/26 22:26 Order name: CBC with Diff; Complete Time: 00:02 cp 08/27 00:02 Interpretation: Normal except: RBC 5.03; MCV 88.6; MCH 29.2; RDW 15.3; MPV 7.0; BASO% cp 1.5. 08/26 22:26 Order name: LFT's; Complete Time: 01:03 cp 08/27 01:52 Interpretation: Normal except: ALB 3.1; GLOB 4.1; A/G 0.8. cp 08/26 22:26 Order name: Magnesium; Complete Time: 01:03 cp 08/26 22:26 Order name: NT PRO-BNP; Complete Time: 01:03 cp 08/26 22:26 Order name: PT-INR; Complete Time: 00:02 cp 08/26 22:26 Order name: Troponin HS; Complete Time: 01:03 cp 08/26 22:26 Order name: ETOH Level; Complete Time: 00:02 cp 08/27 00:02 Interpretation: Abnormal: ETOH 212. cp 08/26 22:26 Order name: UDS; Complete Time: 00:02 cp 08/27 01:53 Interpretation: Reviewed. cp 08/26 22:26 Order name: Urine Microscopic Only; Complete Time: 00:02 cp 08/27 01:03 Interpretation: Normal except: UBACT 20-50; SQEPI 5-10; MUCUS 3+. cp 08/26 23:01 Order name: Urine Dipstick-Ancillary; Complete Time: 01:53 EDMS 08/27 01:53 Interpretation: Normal except: UPROT 1+. cp 08/26 23:03 Order name: Urine --Ancillary (enter results); Complete Time: 00:02 jb5 08/26 23:32 Order name: Urine Culture EDME 08/26 23:35 Order name: COVID-19 SARS RT PCR (Document "Date of Onset" if Symptomatic); Complete ld1 Time: 01:03 08/26 22:26 Order name: XRAY Chest (1 view) cp 08/26 22:26 Order name: EKG; Complete Time: 22:27 cp 08/26 22:26 Order name: Cardiac monitoring; Complete Time: 23:37 cp 08/26 22:26 Order name: EKG - Nurse/Tech; Complete Time: 05:14 cp 08/26 22:26 Order name: IV Saline Lock; Complete Time: 23:37 cp 08/26 22:26 Order name: Labs collected and sent; Complete Time: 23:37 cp 08/26 22:26 Order name: O2 Per Protocol; Complete Time: 23:37 cp 08/26 22:26 Order name: O2 Sat Monitoring; Complete Time: 23:37 cp 08/26 22:26 Order name: Urine Dipstick-Ancillary (obtain specimen); Complete Time: 23:36 cp 08/26 22:26 Order name: CT Head C Spine cp 08/26 22:26 Order name: Urine Test (obtain specimen); Complete Time: 23:36 cp Administered Medications: 02:08 Drug: Banana Bag - (NS 0.9% 1000 ml, foLIC Acid 1 mg, Thiamine 100 mg, Multivitamin 1 margoth amp) Route: IV; Rate: 200 ml/hr; Site: right forearm; 03:30 Follow up: IV Intake: 1000ml margoth 05:00 Follow up: IV Status: Completed infusion; IV Intake: 1000ml margoth 02:08 Drug: Potassium Effervescent Tablet 50 mEq Route: PO; margoth 03:00 Follow up: Response: No adverse reaction margoth 03:16 Follow up: Response: No adverse reaction margoth 03:03 CANCELLED (Physician Discretion): Ativan (LORazepam) 0.5 mg IVP once cp 03:20 Drug: Zofran (Ondansetron) 4 mg Route: IVP; Site: right forearm; margoth 05:14 Follow up: Response: No adverse reaction lg3 03:20 Drug: Pepcid (famotidine) 20 mg Route: IVP; Site: right forearm; margoth 05:13 Follow up: Response: No adverse reaction lg3 03:20 Drug: Ativan (LORazepam) 1 mg Route: IVP; Site: right forearm; margoth 05:13 Follow up: Response: No adverse reaction lg3 Disposition: 20:43 Co-signature as Attending Physician, Jose Daniel Sanderson MD. [facility] Disposition Summary: 08/27/21 06:01 Discharge Ordered Location: Home mh7 Problem: an acute exacerbation 7 Symptoms: have improved mh7 Condition: Stable 7 Diagnosis - Alcohol use, unspecified with intoxication 7 Followup: 7 - With: Private Physician - When: 1 - 2 days - Reason: Worsening of condition, Recheck today's complaints, Continuance of care, Re-evaluation by your physician Discharge Instructions: - Discharge Summary Sheet [facility] - Alcohol Intoxication, [id number] [facility] Forms: - Medication Reconciliation Form [facility] - Thank You Letter 7 - Antibiotic Education 7 - Prescription Opioid Use [facility] Signatures: Dispatcher [employer] EDMS Rei Kong PA PA cp Holmes, Maurice, MD MD [facility] Geraldine Sheppard RN RN Mylene Win RN lg3 Corrections: (The following items were deleted from the chart) 03:03 03:03 Ativan (LORazepam) 0.5 mg IVP once ordered. cp cp
--- NOTE | 2021-08-27 06:02 | ER ---
Nurse's Notes [facility] Name: Madelaine Leonard Age: 60 yrs Sex: Female : 1960 Arrival Date: 08/26/2021 Time: 21:56 Bed 7 Private MD: Diagnosis: Alcohol use, unspecified with intoxication Presentation: 08/26 22:30 Chief complaint: Patient states: "I almost passed out...I was speaking Libyan...I don't margoth speak Libyan..". Coronavirus screen: Vaccine status: Patient reports being unvaccinated. Adamant about not being vaccinated. Ebola Screen: Patient negative for fever greater than or equal to 101.5 degrees Fahrenheit, and additional compatible Ebola Virus Disease symptoms Patient denies exposure to infectious person. Patient denies travel to an Ebola-affected area in the 21 days before illness onset. Initial Sepsis Screen: Does the patient meet any 2 criteria? No. Patient's initial sepsis screen is negative. Does the patient have a suspected source of infection? No. Patient's initial sepsis screen is negative. Risk Assessment: Do you want to hurt yourself or someone else? Patient reports no desire to harm self or others. Onset of symptoms is unknown. 22:30 Method Of Arrival: EMS: [facility] margoth 22:30 Acuity: DEV 3 margoth Triage Assessment: 22:30 General: Appears in no apparent distress. comfortable, obese, unkempt. Pain: Complains margoth of pain in "all over". Historical: - Allergies: 23:10 Latex, Natural Rubber; margoth 23:10 Levofloxacin; margoth 23:10 Naproxen Sodium; margoth 23:10 PENICILLINS; margoth - PMHx: 23:10 Chronic pain; Fibromyalgia; margoth - Immunization history:: Adult Immunizations not immunized. - Social history:: Smoking status: Patient reports the use of cigarette tobacco products, Patient uses alcohol, occasionally. Screenin/15 02:08 Abuse screen: Denies threats or abuse. Denies injuries from another. Nutritional margoth screening: No deficits noted. Tuberculosis screening: No symptoms or risk factors identified. Fall Risk None identified. Assessment: 08/26 22:00 General: Appears in no apparent distress. unkempt, Behavior is calm, cooperative, margoth Smells of The pt reports,"...I fell 4 days ago...my kids are worried about me...I was speaking Libyan...I don't know Libyan". Pain: Pain began "Forever...all over". Neuro: No deficits noted. Cardiovascular: No deficits noted. Respiratory: No deficits noted. GI: Obese and hernias noted when the pt is getting in the bed. 08/27 03:31 General: The pt has had 2 large bm's on the bedpan and has just been medicated, per margoth rasheed's orders. She is in NAD, but somewhat anxious. . 04:18 General: I asked the pt if she would have someone that she could call to pick her up margoth later and she said that she wouldn't. I told her that we would be sending her home later and she would need to call for a ride. She said she would "figure it out". . 04:44 General:. margoth 05:13 General: The pt is in agreement with being dc'd home. She said she would "Uber" home. margoth She had another large bm. . 05:40 General: The pt ambulated approximately 100 feet, to the bathroom and back, with a margoth steady gait. NAD.. 05:54 General: The pt was given a sandwich and a drink, as she was hungry. She is tolerating margoth it well. . 06:30 General: The pt ambulated to the bathroom, again. Her dc paperwork is ready and waiting margoth for her to return to her room. . Vital Signs: 08/26 22:00 BP 133 / 83; Pulse 88; Resp 18; Pulse Ox 96% on R/A; Weight 113.4 kg; Height 5 ft. 8 margoth in. (172.72 cm); 23:39 BP 146 / 93; Pulse 101; Resp 17 S; Pulse Ox 98% on 1 lpm NC; lg3 08/27 00:30 BP 153 / 61; Pulse 100; Resp 18; Temp 98.4; Pulse Ox 97% 1 lpm ; Weight 136.08 kg; margoth Height 5 ft. 4 in. (162.56 cm); 01:30 BP 157 / 81; Pulse 98; Resp 20; Pulse Ox 96% on 1 lpm NC; margoth 03:35 BP 169 / 87; Pulse 95; Resp 20; Pulse Ox 96% on 1 lpm NC; margoth 04:17 BP 167 / 99; Pulse 99; Resp 20; Pulse Ox 94% on R/A; margoth 05:13 BP 185 / 92; Pulse 91; Resp 18; Temp 98.5; Pulse Ox 96% on R/A; Pain 0/10; margoth 05:54 BP 159 / 93; Pulse 82; Resp 18; Temp 98.5; Pulse Ox 97% on R/A; Pain 0/10; margoth 06:44 BP 148 / 83; Pulse 88; Resp 18; Temp 98.5; Pulse Ox 97% on R/A; Pain 0/10; margoth 00:30 Body Mass Index 51.49 (136.08 kg, 162.56 cm) margoth ED Course: 08/26 21:56 Patient arrived in ED. kc5 22:13 Rei Kong PA is PHCP. cp 22:13 Jose Daniel Sanderson MD is Attending Physician. cp 22:30 Geraldine Sheppard, MAUREEN is Primary Nurse. margoth 22:57 XRAY Chest (1 view) In Process Unspecified. EDMS 23:00 Patient has correct armband on for positive identification. Bed in low position. Call margoth light in reach. Side rails up X2. 23:00 satellite project site monitor on. Pulse ox on. NIBP on. Lights dimmed. Warm blanket given. margoth 23:20 CT Head C Spine In Process Unspecified. EDMS 23:36 Urine Culture Sent. lg3 23:36 Urine Dipstick-Ancillary Sent. lg3 23:36 UDS Sent. lg3 23:37 ETOH Level Sent. lg3 23:38 Basic Metabolic Panel Sent. lg3 23:38 CBC with Diff Sent. lg3 23:38 LFT's Sent. lg3 23:38 Magnesium Sent. lg3 23:38 NT PRO-BNP Sent. lg3 23:38 PT-INR Sent. lg3 23:38 Troponin HS Sent. lg3 23:38 Inserted saline lock: 20 gauge in right forearm, using aseptic technique. Blood lg3 collected. 08/27 00:30 No provider procedures requiring assistance completed. margoth 01:20 Triage completed. margoth 06:31 Arm band placed on. margoth 06:46 intact, bleeding controlled, No redness/swelling at site. Pressure dressing applied. margoth Administered Medications: 02:08 Drug: Banana Bag - (NS 0.9% 1000 ml, foLIC Acid 1 mg, Thiamine 100 mg, Multivitamin 1 margoth amp) Route: IV; Rate: 200 ml/hr; Site: right forearm; 03:30 Follow up: IV Intake: 1000ml margoth 05:00 Follow up: IV Status: Completed infusion; IV Intake: 1000ml margoth 02:08 Drug: Potassium Effervescent Tablet 50 mEq Route: PO; margoth 03:00 Follow up: Response: No adverse reaction margoth 03:16 Follow up: Response: No adverse reaction margoth 03:03 CANCELLED (Physician Discretion): Ativan (LORazepam) 0.5 mg IVP once cp 03:20 Drug: Zofran (Ondansetron) 4 mg Route: IVP; Site: right forearm; margoth 05:14 Follow up: Response: No adverse reaction lg3 03:20 Drug: Pepcid (famotidine) 20 mg Route: IVP; Site: right forearm; margoth 05:13 Follow up: Response: No adverse reaction lg3 03:20 Drug: Ativan (LORazepam) 1 mg Route: IVP; Site: right forearm; margoth 05:13 Follow up: Response: No adverse reaction lg3 Intake: 03:30 IV: 1000ml; Total: 1000ml. margoth 05:00 IV: 1000ml; Total: 2000ml. margoth Outcome: 06:01 Discharge ordered by . Brandan 06:31 Condition: stable margoth 06:45 Discharged to home via wheelchair. margoth 06:45 Discharge instructions given to patient, Instructed on discharge instructions, ETOH Demonstrated understanding of instructions, follow-up care. 06:46 Patient left the ED. margoth Signatures: Dispatcher [employer] EDMS Rei Kong PA PA cp Gibson, Lacie, RN RN lg3 Jose Daniel Sanderson MD MD mh7 Yoon Burroughs kc5 Geraldine Sheppard RN RN margoth Corrections: (The following items were deleted from the chart) 03:36 01:30 BP 169 / 87; Pulse 95bpm; Resp 18bpm; Pulse Ox 96% 1 lpm; margoth margoth
[2021-08-27 07:05] VITALS: TEMP 98.5
[2021-08-27 07:07] VITALS: O2SAT 97
[2021-08-27 07:10] VITALS: BP 148/83
--- NOTE | 2021-08-27 08:07 | RAD REPORT ---
EXAM DESCRIPTION: RAD - Chest Single View - 08/26/2021 10:57 pm CLINICAL HISTORY: AMS COMPARISON: Chest Single View dated 12/29/2020; Chest Single View dated 09/07/2019; Chest Single View dated 10/03/2018; Abdomen 1 View (KUB) dated 04/26/2018 FINDINGS: Lines: None. Lungs: No evidence of edema or pneumonia. Pleural: No significant pleural effusions or pneumothorax. Cardiac: The heart size is within normal limits. Bones: No acute fractures. Other: Chain sutures in the right mid lung. IMPRESSION: No acute cardiopulmonary disease.
--- NOTE | 2021-08-28 22:20 | RAD REPORT ---
EXAM DESCRIPTION: CT - Head C Spine Mpr Wo Con - 08/27/2021 5:58 am CLINICAL HISTORY: 60-year-old female with hallucinations. COMPARISON: 12/29/2020. TECHNIQUE: CT brain without contrast. This exam was performed according to our departmental dose opt imization program which includes use of automated exposure control, adjustment of the mA and/or kV ac cording to patient size and/or use of iterative reconstruction technique. FINDINGS: Minimal foci of patchy hypoattenuation are present in a subcortical and periventricular de ep white matter distribution, nonspecific; however, most likely represent small vessel ischemic disea se, age indeterminate. Subcentimeter hypoattenuation within the left basal ganglia stable in compar shun to the previous examination may reflect prior lacunar versus perivascular space Stable appearance of cerebellar pontine angle extra-axial dense mass measuring 7 mm in maximal thickn ess, (series 201, image 11) referring meningioma. Prominence of the bifrontal extra-axial space similar in appearance to the previous examination sugge sts volume loss. The ventricles, sulci, and cisterns are symmetric and unremarkable. The broussadr-white matter different iation is preserved. There is no mass effect, midline shift, intra- or extra-axial fluid collection /acute hemorrhage. The osseous structures are unremarkable. The paranasal sinuses and mastoid air cells are clear. Small volume of LEFT malar soft tissue swelling/contusion. IMPRESSION: 1. No acute intracranial abnormalities. Nonspecific, minimal white matter change most likely small vessel ischemic disease, age indeterminate. 2. CT is insensitive for early evaluation of acute stroke. If there is clinical concern for acute ischemia, an MRI may be considered. TECHNIQUE: Cervical spine CT was performed without contrast. Multiplanar reformatted images were pro vided. This exam was performed according to our departmental dose optimization program which includes use of automated exposure control, adjustment of the mA and/or kV according to patient size and/or u se of iterative reconstruction technique. COMPARISON: None. FINDINGS: There is normal alignment of the cervical spine without fracture or subluxation. The facet s are normal in alignment bilaterally. The posterior elements including the spinous processes are int act. Straightening of the cervical spine which may be secondary to positioning for the examination. Morphology and attenuation of the vertebral bodies and intervertebral disk spaces is compatible with multilevel degenerative change. Multilevel loss of intervertebral disk height. Multilevel posterior osseous spurring results in neuro foraminal narrowing throughout the cervical spine. Posterior osseous spurring and disk bulge present at C4-5 and C5-6 results in effacement of the ventr al thecal sac and at least mild narrowing at C4-5 and mild to moderate narrowing at C5-6. The pre-and paravertebral soft tissues are within normal limits. IMPRESSION: 1. Straightening of the cervical spine which may be secondary to positioning for the exa mination versus spasm. 2. No fracture or acute subluxation. Electronically signed by: Danielle Lazar MD 08/26/2021 11:42 PM ASSISTANT PROJECT ENGINEER Due to temporary technical issues with the PACS/Fluency reporting system, reports are being signed by the in house radiologists without review as a courtesy to insure prompt reporting. The interpreting radiologist is fully responsible for the content of the report.
== END 2021-08-27 06:46 | disposition home or self-care (01) ==
LOC: ER 21:56
DX: R44.0 Auditory hallucinations (principal); F10.129 Alcohol abuse with intoxication, unspecified; Z88.0 Allergy status to penicillin; Z88.8 Allergy status to other drugs, medicaments and biological substances; Z91.040 Latex allergy status; F17.210 Nicotine dependence, cigarettes, uncomplicated; Z20.822 Contact with and (suspected) exposure to COVID-19
CPT/HCPCS: 96365; 93005; 87088; 85025; 87086; 80048; 36415; 80320; 83735; 81025; 85610; 80076; 84484; 83880; 80307; 70450; 72125; 71045; 96375; 99285; 96366; U0003; J3411; J7030; J2405; 81003; 81015

== ENCOUNTER 2021-09-30 22:36 | Inpatient (IN) | payer OTHER ==
--- OUTSIDE RECORDS SUMMARY | 2021-09-30 22:50 | XMS REPORT | Continuity of Care Document ---
:1960 Author Organization [facility] t Address [address] [place] [address] Care Team Providers Name Role Phone Susie Leblanc Attending Clinician Unavailable [id number] Attending Clinician Unavailable Yusra Dinero Attending Clinician Unavailable Rachel Attending Clinician Unavailable LALITO Attending Clinician Unavailable Doctor Unassigned, Name Attending Clinician Unavailable Ramón DO Attending Clinician Hany COPELAND Attending Clinician Tylor Sandoval MD Attending Clinician RAMÓN Attending Clinician Unavailable RAMÓN Attending Clinician Unavailable OMRANIAN Attending Clinician Unavailable Susie Leblanc Admitting Clinician Unavailable [id number] Admitting Clinician Unavailable Hany COPELAND Admitting Clinician OMRANIAN Admitting Clinician Unavailable Payers Payer Name Policy Type Policy Number Effective Date Expiration Date [place] [place] [id number] MEDIC[facility] PART A [id number] 2011 \\T\\ B 00:00:00 Problems Condition Condition [...] chronic 0-10 ity of pancreatit pancreatit 00:00: Rylan olivera is is 00 Medical Branch Obesity Obesity Disease Active 2019-08 Univers (BMI (BMI 0-09 ity of 30-39.9) 30-39.9) 00:00: [place] [facility] NSTEMI NSTEMI Disease Active Univers (non-ST (non-ST 2-22 ity of elevated elevated 00:00: [place] myocardial myocardial 00 Me dical infarction infarction Br anch ) ) SIRS SIRS Disease Active Univers (systemic (systemic 2-22 ity of inflammato inflammato 00:00: Rylan olivera ry ry 00 Medical response response Branch syndrome) syndrome) Chronic Chronic Disease Active Univers hypercapni hypercapni 9-18 it y of c c 00:00: [place] respirator respirator 00 Me dical y failure y failure Bran ch Acute Acute Disease Active Univers encephalop encephalop 9-18 it y of athy athy 00:00: [place] [facility] Alcohol Alcohol Disease Active Univers abuse abuse 9-18 ity of 00:00: [place] [facility] Acute Acute Disease Active Univers liver liver 9-14 ity of failure failure 00:00: [place] without without 00 Medical hepatic hepatic Branch coma coma ENRIQUE (acute ENRIQUE (acute Disease Active U nivers kidney kidney 9-14 ity of injury) injury) 00:00: [place] [facility] Other Other Disease Active Univers chronic chronic 9-14 ity of pain pain 00:00: [place] 00 Medical Branch Left Left Problem Active Univers shoulder shoulder ity of pain pain [place] [facility] Closed Closed Problem Active Univers nondisplac nondisplac it y of ed ed [place] fracture fracture Physic i of greater of greater an s tuberosity tuberosity of left of left humerus, humerus, initial initial encounter encounter Closed Closed Problem Active Univers nondisplac nondisplac it y of ed ed [place] fracture fracture Physic i of greater of greater an s tuberosity tuberosity of right of right humerus humerus with with routine routine healing, healing, subsequent subsequent encounter encounter Allergies, Adverse Reactions, Alerts Allergy Allergy Status Severity Reaction(s) Onset Inactive Treating Comm ents Source Name Type Date Date Clinician NAPROXEN Allergy [facility] 2018[facility] LATEX Allergy Active 2017[facility] LEVOFLOX Allergy Active Itching [facility] PENICILL Allergy Active Hives [facility] Penicill Adverse Active Info Not [facility] Reaction [facility] Naproxen Adverse Active Info Not [facility] Reaction Available [facility] Levaquin Adverse Active Info [facility] Reaction [facility] Latex Adverse Active Info Not [facility] Reaction Available [facility] NO KNOWN Drug Active Univers ALLERGIE Class ity of S [facility] Social History Social Habit Start Date Stop Date Quantity Comments Source Sex Assigned At Universit y of [facility] Exposure to Not sure [facility] SARS-CoV-2 (event) [facility] Cigarettes smoked 2020-05-23 2020-05-23 Univers ity of current (pack per 00:00:00 00:00:00 ) - Reported Branch Cigarette 2020-05-23 2020-05-23 University of pack-years 00:00:00 00:00:00 [facility] Tobacco use and 2020-05-23 2020-05-23 Never used Universit y of exposure 00:00:00 00:00:00 [facility] Alcohol intake 2020-05-23 2020-05-23 Current drinker Unive rsity of 00:00:00 00:00:00 of alcohol [place] [facility] (finding) Branch History SDOH 2020-05-20 2020-05-20 99 University o f Alcohol Binge 00:00:00 00:00:00 [place] [facility] al [facility] History SDOH 2020-05-20 2020-05-20 3 University o f Financial 00:00:00 00:00:00 [place] [facility] History SDOH Food 2020-05-20 2020-05-20 1 Univers ity of Worry 00:00:00 00:00:00 [facility] [place] [facility] Branch History SDFL Food 2020-05-20 2020-05-20 1 Univers ity of Scarcity 00:00:00 00:00:00 [facility] [place] [facility] Branch Tobacco Comment 2020-05-20 2020-05-20 4-5 Universit y of 00:00:00 00:00:00 cigarettes/day [place] Medi josé Branch History SDOH 2020-05-20 2020-05-20 5 University o f Alcohol Frequency 00:00:00 00:00:00 [place] M edical Branch History SDFL 2020-05-20 2020-05-20 2 University o f Alcohol Std Drinks 00:00:00 00:00:00 [facility] [place] [facility] Branch Smoking Status Start Date Stop Date Source Smoker, current status 2020-05-23 00:00:00 Unive rsity of [facility] [place] [facility] unknown Branch Medications Ordered Filled Start Stop Current Ordering Indication Dosage Frequency Signature Comments Components Source Medication Medication Date Date Medication? Clinician (SIG) Name Name thiamine 2019-08- No [id number] 100mg Take 1 Univers 100 mg 0-15 [...] 100 mg 00 First dose Medical on [facility] 05/26/20 at 0900, Until Discontinu ed, Routine KCL 2019-08- No 40meq 40 mEq, Univers (KLOR-CON 0-14 10-14 Oral, ity of M20) tablet 13:30: 19:20 ONCE, 1 [place] 40 mEq 00 :00 dose, [facility] 05/26/20 Branch at 0830, Routine melatonin 2019-08 Yes 3mg 3 mg, Univers (MELATIN) 0-14 Oral, ity of tablet 3 mg 06:32: QHSPRN, [place] 44 Starting Medical [facility] 05/26/20 at 0132, Until Discontinu ed, Routine, Insomnia pantoprazol 2019-08 Yes 40mg 40 mg, Univ ers e 0-14 Oral, BID, ity of (PROTONIX) 01:00: First dose [place] EC tablet 00 (after Medical 40 mg last Branch modificati on) on Sun05/25/20 at 1999, Until Discontinu ed, Routine sennosides- 2019-08 Yes 1{tbl} 1 tablet, Univers docusate 0-14 Oral, BID, ity o f sodium 01:00: First dose [place] (SENOKOT-S) 00 on [facility] l 8.6-50 mg 05/25/20 Branch per tablet at 1999, 1 tablet Until Discontinu ed, Routine gabapentin 2019-08 Yes [id number] 400mg Take 1 Univers 400 mg 0-14 9107 capsule by ity of capsule 00:00: mouth 3 [place] 00 (three) Medical times Branch daily. metoprolol 2019-08 Yes [id number] 25mg Take 1 Univers succinate 0-14 9107 tablet by ity o f XL 25 mg 24 00:00: mouth [place] hr tablet 00 daily. Medical Branch pantoprazol 2019-08 Yes [id number] 40mg Take 1 Univers e 40 mg EC 0-14 9107 tablet by ity of tablet 00:00: mouth [place] 00 daily. Medical Branch Polyethylen 2019-08 Yes [id number] 17g Take 1 Univers e Glycol 0-14 9107 Packet by ity of 3350 17 00:00: mouth 3 [place] gram powder 00 (three) Medic al times Branch daily. sennosides- 2019-08 Yes [id number] 1{tbl} Take 1 Univers docusate 0-14 9107 tablet by ity of sodium 00:00: mouth 2 [place] 8.6-50 mg 00 (two) Medical per tablet times Branch daily. hydroCHLORO 2019-08 Yes [id number] 12.5mg Take 1 Univers thiazide 0-14 9107 capsule by ity o f 12.5 mg 00:00: mouth [place] capsule 00 daily. Medical Branch doxycycline 2019-08 Yes [id number] 100mg Take 1 Univers hyclate 100 0-14 [...] 00 bedtime. Medical Branch gabapentin 2019-08 Yes [id number] 400mg Take 1 Univers 400 mg 0-14 9107 capsule by ity of capsule 00:00: mouth 3 [place] 00 (three) Medical times Branch daily. metoprolol 2019-08 Yes [id number] 25mg Take 1 Univers succinate 0-14 9107 tablet by ity o f XL 25 mg 24 00:00: mouth [place] hr tablet 00 daily. Medical Branch pantoprazol 2019-08 Yes [id number] 40mg Take 1 Univers e 40 mg EC 0-14 9107 tablet by ity of tablet 00:00: mouth [place] 00 daily. Medical Branch Polyethylen 2019-08 Yes [id number] 17g Take 1 Univers e Glycol 0-14 9107 Packet by ity of 3350 17 00:00: mouth 3 [place] gram powder 00 (three) Medic al times Branch daily. sennosides- 2019-08 Yes [id number] 1{tbl} Take 1 Univers docusate 0-14 9107 tablet by ity of sodium 00:00: mouth 2 [place] 8.6-50 mg 00 (two) Medical per tablet times Branch daily. hydroCHLORO 2019-08 Yes [id number] 12.5mg Take 1 Univers thiazide 0-14 9107 capsule by ity o f 12.5 mg 00:00: mouth [place] capsule 00 daily. Medical Branch doxycycline 2019-08 Yes [id number] 100mg Take 1 Univers hyclate 100 0-14 [...] by ity of tablet 00:00: mouth at [place] 00 bedtime. Medical Branch ipratropium 2019-08 Yes .5mg 0.5 mg, Uni vers (ATROVENT) 0-13 Inhalation ity of 0.02 % 19:00: , TID, [place] nebulizer 00 First dose Medi josé solution [...] 0-13 Oral, ity of (ESIDRIX) 18:45: DAILY, [place] capsule 00 First dose Medica l 12.5 mg on Sun05/25/20 at 1345, Until Discontinu ed, Routine lidocaine 2019-08 2020- No 1{patch 1 Patch, Univers (LIDODERM) 0- } Topical, ity of 5 % (700 15:00: 07:00 Admin[place] mg/patch) 00 :00 over 12 Medical patch 1 Hours, Branch Patch ONCE, 1 dose, Sun05/25/20 at 1000, Routine doxycycline 2019-08 2020- No 100mg 100 mg, U nivers hyclate 0- 10-17 Oral, ity of (Vibramycin 11:00: 10:59 Q12HA2, 8 [place] ) capsule 00 :00 doses, Medical 100 mg First dose Branch on Sun05/25/20 at 0600, Last dose on Sun05/28/20 at 1800, SPENCER
Re ason for Anti-Infec tive: Documented Infection< br>Documen nava Infection Site: Blood
D uration of Therapy: 7 days vancomycin 2019-08- No 1500mg 1,500 mg, Univers 1500 mg in 005-24 IV ity of NS 500 mL 19:30: 20:17 Piggyback, [place] IV 00 :08 Q24H ABX, Medical Piggyback First dose Bran ch RTU 1,500 (after mg last modificati on) on Sun05/24/20 at 1430, Until Discontinu ed
Reas on for Anti-Infec tive: Documented Infection< br>Documen nava Infection Site: Blood
D uration of Therapy: 14 days gabapentin 2019-08- No 300mg 300 mg, Un urszula (NEURONTIN) 005-25 Oral, TID, i ty of capsule 300 19:00: 13:45 First dose [place] mg 00 :19 (after Medical last Branch modificati on) on Sun05/24/20 at 1400, Until Discontinu ed, Routine magnesium 2019-08 No 4g 4 g, IV Univ ers sulfate in 05-24 Piggyback, it y of water 4 15:00: 15:03 ONCE, 1 [place] gram/50 mL 00 :00 dose, Mon Medi josé (8 %) IV 05/24/20 Branch Piggyback 4 at 1000, g Routine Polyethylen 2019-08- No 17g 17 g, Univ ers e Glycol 05-25 Oral, ity of 3350 14:00: 13:46 DAILY, [place] (MIRALAX) 00 :08 First dose Medi josé powder [address] [facility] 05/24/20 at 0900, Until Discontinu ed, Routine ipratropium 2019-08- No .5mg 0.5 mg, Un urszula (ATROVENT) 05-25 Inhalation it y of 0.02 % 13:00: 14:01 , BID, [place] nebulizer 00 :13 First dose Medi josé solution (after Branch 0.5 mg last modificati on) on Sun05/24/20 at 0800, Until Discontinu ed, Routine melatonin 2019-08- No 3mg 3 mg, Univer s (MELATIN) 05-24 Oral, ONCE ity of tablet 3 mg 06:05: 06:11 NOW, 1 [place] 00 :00 dose, [facility] 05/24/20 Branch at 0115, Routine acetaminoph 2019-08 Yes 650mg 650 mg, Un urszula en 0-11 Oral, ity of (TYLENOL) 17:41: Q6HPRN, [place] tablet 650 53 Starting Medic al mg [facility] 05/23/20 at 1241, Until Discontinu ed, Routine, Pain (scale 4-6), Temp > 38.5 C acetaminoph 2019-08 Yes 1{tbl} 1 tablet, Univers en-codeine 0-11 Oral, ity of (TYLENOL 17:41: Q6HPRN, [place] #3) 300-30 44 Starting Medic al mg tablet 1 [facility] tablet 05/23/20 at 1241, Until Discontinu ed, Routine, Pain (scale 7-10) vancomycin 2019-08- No 1500mg 1,500 mg, Univers 1500 mg in 005-24 IV ity of NS 500 mL 17:24: 13:56 Piggyback, [place] IV 00 :07 Q24H ABX, Medical Piggyback First dose Bran ch RTU 1,500 (after mg last modificati on) on [place] 05/23/20 at 1230, Until Discontinu ed
Reas on for Anti-Infec tive: Documented Infection< br>Documen nava Infection Site: Blood
D uration of Therapy: 14 days metoprolol 2019-08 Yes 25mg 25 mg, Unive rs succinate 0-11 Oral, ity of XL (TOPROL 14:00: DAILY, [place] XL) tablet 00 First dose Med ical 25 mg on [facility] 05/23/20 at 0900, Until Discontinu ed, Routine pantoprazol 2019-08- No 40mg 40 mg, Uni vers e 005-25 Oral, ity of (PROTONIX) 14:00: 14:00 DAILY, [place] EC tablet 00 :27 First dose Medi josé 40 mg on [facility] 05/23/20 at 0900, Until Discontinu ed, Routine HYDROcodone 2019-08 2020- No 1{tbl} 1 tablet, Univers -acetaminop 0-11 -11 Oral, ity of hen (NORCO 13:55: 17:42 Q6HPRN, [place] 5) 5-325 mg 49 :03 Starting Medi josé tablet 1 [facility] tablet 05/23/20 at 0855, Until 05/23/20 at 1242, Routine, Pain (scale 7-10) vancomycin 2019-08 2020- No 15mg/kg 1,500 mg Univers 1500 mg in 010 11 (rounded ity of NS 500 mL 17:45: 12:25 from 1,380 [place] IV 00 :20 mg = 15 Medical Piggyback mg/kg ?92 Branc h RTU 1,500 kg), IV mg Piggyback, Q24H ABX, First dose on [facility] 05/22/20 at 1245, Until Discontinu ed
Reas on for Anti-Infec tive: Documented Infection< br>Documen nava Infection Site: Blood
D uration of Therapy: 14 days KCL 2019-08- No 30meq 30 mEq, IV Unive rs (POTASSIUM 0-10 10-10 Piggyback, it y of CHLORIDE) 09:30: 08:57 ONCE, 1 [place] 30 mEq in 00 :00 dose, [facility] Medic al NaCl 0.9% 05/22/20 [place] () at 0430, piggyback 250 mL QUEtiapine 2019-08 Yes 50mg 50 mg, Unive rs (SEROQUEL) 0-10 Oral, QHS, ity of tablet 50 02:00: First dose [place] mg 00 on [facility] 05/21/20 at Branch 2100, Until Discontinu ed, Routine gabapentin 2019-08- No 300mg 300 mg, Un urszula (NEURONTIN) 0-10 10-12 Oral, BID, i ty of capsule 300 01:30: 13:55 First dose [place] mg 00 :11 on [facility] 05/21/20 at Branch 2030, Until Discontinu ed, Routine guaiFENesin 2019-08 Yes 200mg 200 mg, Un urszula 100 mg/5 mL 0-10 Oral, ity of solution 01:14: Q4HPRN, [place] 200 mg 34 Starting Medical [facility] 05/21/20 at 2014, Until Discontinu ed, Routine, Cough, Congestion perflutren 2019-08 2020- No 3mL 3 mL, IV Un urszula [...] CONTINUOUS , Starting Sun05/21/20 at 1015, Until 05/26/20 at 0914, Routine thiamine 2019-08- No 100mg IV Univers (VITAMIN 005-21 Piggyback, ity of B1) 100 mg 14:00: 14:03 DAILY, 1 [place] in NaCl 00 :00 dose, Medical 0.9% (NS) First dose Bran ch piggyback on Sun05/21/20 at 0900, 50 mL heparin 2019-08 Yes 5000U 5,000 Univers (porcine) 009 Units, ity of injection 13:00: Subcutaneo [place] 5,000 Units 00 us, Q12H, Med ical First dose Branch on Sun05/21/20 at 0800, Until Discontinu ed, Routine magnesium 2019-08- No 2g 2 g, IV Univ ers sulfate in 005-21 Piggyback, it y of water 2 07:30: 07:44 ONCE, 1 [place] gram/50 mL 00 :00 dose, Fri Medi josé (4 %) 05/21/20 at Branch infusion 2 0230, g Routine acetaminoph 2019-08- No 650mg 650 mg, U nivers en 005-23 Oral, ity of (TYLENOL) 03:52: 17:41 Q6HPRN, [place] tablet 650 10 :37 Starting Medic al mg [place] Branch 05/20/20 at 2252, Until 05/23/20 at 1241, Routine, Pain (scale 4-6), Temp > 38.5 C ipratropium 2019-08- No .5mg 0.5 mg, Un urszula (ATROVENT) 005-21 Inhalation it y of 0.02 % 03:30: 06:50 , ONCE, 1 [place] nebulizer 00 :00 dose, [place] Medic al solution 05/20/20 at [facility] h 0.5 mg 2230, Routine lactated 2019-08- No 1000mL at 125 Univ ers ringers IV 0-09 10-09 mL/hr, ity of infusion 03:15: 15:12 1,000 mL, [place] as 1,000 mL 00 :09 IV Medical Infusion, Branch CONTINUOUS , Starting [place] 05/20/20 at 2215, Until Sun05/21/20 at 1012, Routine ipratropium 2019-08 No .5mg 0.5 mg, Un urszula (ATROVENT) 0-12 Inhalation it y of 0.02 % 02:30: 12:43 , Q6HPRN, [place] nebulizer 42 :23 Starting Medica l solution [facility] 0.5 mg 05/20/20 at 2130, Until 05/24/20 at 0743, Routine, Wheezing, Shortness of Breath nystatin 2019-08 Yes Topical, Unive rs (NYSTOP) 0-09 BID, First ity o f powder 02:30: dose on [facility] Medical 05/20/20 at Branch 213, Until Discontinu ed, Routine oxazepam 2019-08- No 30mg 30 mg, Univer s (SERAX) 0-14 Oral, ity of capsule 30 02:22: 11:13 Q6HPRN, [place] mg 01 :02 Starting Medical [facility] Branch 05/20/20 at 2122, Until Sun05/26/20 at 0613, Routine, Anxiety, Hypertensi on, signs of withdrawal . Please NHO if given so taper can be started. proMETHazin 2019-08 Yes 25mg 25 mg, IV U nivers e 0 Piggyback, ity of (PHENERGAN) 02:17: Q4HPRN, [place] 25 mg in 21 Starting Medical NaCl 0.9% [facility] Branch (NS) 50 mL 05/20/20 at piggyback 2116, Until Discontinu ed, 50 mL benzocaine- 2019-08 Yes 1{lozen 1 Lozenge, Univers menthoL 0-09 ge} Oral, ity of (CEPACOL 02:16: Q4HPRN, [place] SORE THROAT 23 Starting Medi josé (MIA-MEN)) [facility] Branch lozenge 1 05/20/20 at Lozenge 2115, Until Discontinu ed, Routine, Sore throat glucagon 2019-08 Yes 1mg 1 mg, Univers (GLUCAGEN 0-09 Intramuscu ity of DIAGNOSTIC 01:51: lar, PRN, [place] KIT) 02 Starting Medical injection 1 [place] Branch mg 05/20/20 at 2050, Until Discontinu ed, SPENCER, Blood Glucose < or = 70 mg/dL and patient is unable to swallow or has mental changes. dextrose 50 2019-08 Yes 25mL 25 mL, Univ ers % in water 009 Slow IV ity of (D50W) 01:51: Push, PRN, [place] injection 02 Starting Medica l 25 mL [place] Branch 05/20/20 at 2050, Until Discontinu ed, SPENCER, Blood Glucose < or = 70 mg/dL and patient is unable to swallow or has mental status changes. NORepinephr 2019-08- No .05ug/k 0.05-1.5 Univers ine 4 mg in 009 10-10 g/min mcg/kg/min ity of 0.9% NaCl [...] maximum allowed dose, contact prescriber .
vancomycin 2019-08- No 500mg 500 mg, IV Univers (VANCOCIN) 008 10-08 Piggyback, it y of 500 mg in [...] [place] 05/20/20 at 2114, SPENCER NaCl 0.9% 2019-08 2020- No 1000mL [...] ONCE, 1 dose, [place] 05/20/20 at 1530, SPENCER NaCl 0.9% 2019-08 Yes 5mL 5 mL, [...] mouth 2 ity of tablet 00:00: (two) [place] 00 times Medical daily. Branch lisinopriL- 2020- No 1{tbl} Take 1 U nivers hydrochloro 05-0714 tablet by it y of thiazide 00:00: 00:00 mouth [place] 20-12.5 mg 00 :00 daily. Medical per tablet Branch metaxalone 2019- No TAKE ONE Un urszula 800 mg 04-07 (1) ity of tablet 00:00: 00:00 TABLET(S) [place] 00 :00 BY MOUTH Medical THREE Branch TIMES A DAY. Skelaxin Skelaxin 2020- No [place] [address] [facility] 8 09-24 [facility] Clinics Pseudoeph-B Pseudoeph-B 0 Yes [place] Take [address] [...] A ent DAY Clinics NEEDED FOR ANXIETY. [place] TAKE ONE [facility] Carbonate [...] Immunizations Ordered Filled Immunization Date Status Comments [facility] e Immunization Name Name Influenza Virus 2018-10-07 Completed Universit y of Vaccine 00:00:00 [facility] Pneumococcal 13 2018-10-07 Completed Universit y of Conjugate, PCV13 00:00:00 [facility] dical (Prevnar 13) Branch Influenza Virus 2018-10-07 Completed Universit y of Vaccine 00:00:00 [facility] Pneumococcal 13 2018-10-07 Completed Universit y of Conjugate, PCV13 00:00:00 [facility] dical (Prevnar 13) [place] Vital Signs Vital Name Observation Time Observation Value Comments Source Systolic blood 2020-05-26 20:58:00 155 mm[Hg] Univer sity [facility] Diastolic blood 2020-05-26 20:58:00 78 mm[Hg] Unive rsity [facility] Heart rate 2020-05-26 20:58:00 79 /min [facility] Body temperature 2020-05-26 20:58:00 37.28 Dee Dee [facility] Respiratory rate 2020-05-26 20:58:00 18 /min [facility] Oxygen saturation in 2020-05-26 20:58:00 94 /min [facility] Arterial blood by [facility] Pulse oximetry Branch Body height 2020-05-21 02:30:00 160 cm [facility] Body weight 2020-05-21 02:30:00 92 kg [facility] BMI 2020-05-21 02:30:00 35.93 kg/m2 [facility] Systolic blood 2020-05-26 20:58:00 155 mm[Hg] Univer sity of pressure [facility] Diastolic blood 2020-05-26 20:58:00 78 mm[Hg] Unive rsity [facility] Heart rate 2020-05-26 20:58:00 79 /min [facility] Body temperature 2020-05-26 20:58:00 37.28 Dee Dee [facility] Respiratory rate 2020-05-26 20:58:00 18 /min [facility] Oxygen saturation in 2020-05-26 20:58:00 94 /min [facility] blood by [facility] Pulse oximetry [place] Body height 2020-05-21 02:30:00 160 cm [facility] Body weight 2020-05-21 02:30:00 92 kg [facility] BMI 2020-05-21 02:30:00 35.93 kg/m2 [facility] Procedures Procedure Date / Time Performing Clinician Source Performed INSURANCE CORRESPONDENCE 2020-08-16 06:01:00 Doctor Unassigned, [facility] BASIC METABOLIC PANEL 2020-05-26 10:08:00 [facility] (NA, K, CL, CO2, GLUCOSE, Medica l Branch BUN, CREATININE, CA) CBC WITH DIFF 2020-05-26 10:08:00 Mihai [facility] MAGNESIUM 2020-05-25 08:50:00 Mihai [facility] BASIC METABOLIC PANEL 2020-05-25 08:50:00 [facility] ([facility], K, CL, CO2, GLUCOSE, Medica l Branch BUN, CREATININE, CA) CBC WITH DIFF 2020-05-25 08:50:00 Mihai [facility] POCT GLUCOSE (AUTOMATED) 2020-05-24 22:30:00 Andrea Sandoval [facility] VANCOMYCIN RANDOM LEVEL 2020-05-24 18:50:00 Kwaku Khan [facility] MAGNESIUM 2020-05-24 09:32:00 Merced Holm [facility] BASIC METABOLIC PANEL 2020-05-24 09:32:[facility] (NA, K, CL, CO2, GLUCOSE, Medica l Branch BUN, CREATININE, CA) VANCOMYCIN RANDOM LEVEL 2020-05-24 09:32:00 Kwaku Khan [facility] VANCOMYCIN TROUGH 2020-05-23 18:05:00 Murray Bright [facility] MAGNESIUM 2020-05-23 08:59:00 [facility] 2020-05-23 08:59:00 Mihai [facility] (NA, K, CL, CO2, GLUCOSE, Medica l Branch BUN, CREATININE, CA) CBC WITH DIFF 2020-05-23 08:59:00 Mihai [facility] CLOSTRIDIUM DIFFICILE 2020-05-23 08:37:00 Keira Briceno [facility] TOXIN [facility] CBC WITHOUT DIFF 2020-05-22 15:12:00 Maximus [facility] MAGNESIUM 2020-05-22 07:22:00 Mihai [facility] BASIC METABOLIC PANEL 2020-05-22 07:22:00 Mihai [facility] (NA, K, CL, CO2, GLUCOSE, Medica l Branch BUN, CREATININE, CA) CBC WITH DIFF 2020-05-22 07:22:00 Mihai [facility] VANCOMYCIN RANDOM LEVEL 2020-05-22 02:46:00 Merced Holm [facility] BLOOD CULTURE SCREEN 2020-05-22 02:36:00 Mihai [facility] BLOOD CULTURE SCREEN 2020-05-22 02:35:00 Mihai [facility] CT SHOULDER LEFT WO 2020-05-21 23:54:32 Darnell Chau [facility] CBC WITHOUT DIFF 2020-05-21 23:21:00 Maximus [facility] CREATINE KINASE 2020-05-21 20:42:00 Kaila [facility] ECHO ROUTINE W/DOPPLER 2020-05-21 15:19:59 Scott, Emily [facility] COLOR [facility] XR ELBOW <3 VW LEFT 2020-05-21 14:51:45 Darnell Chau [facility] XR FEMUR 2 VW LEFT 2020-05-21 14:51:45 Darnell Chau [facility] XR HUMERUS 2 VW LEFT 2020-05-21 14:51:45 Darnell Chau [facility] XR SHOULDER <2 VW LEFT 2020-05-21 14:51:45 Darnell Chau [facility] VITAMIN B1 (THIAMINE), 2020-05-21 08:31:00 [facility] CREATINE KINASE 2020-05-21 08:30:00 [facility] MAGNESIUM 2020-05-21 08:30:00 [facility]OPONIN I 2020-05-21 08:30:00 [facility] BASIC METABOLIC PANEL 2020-05-21 08:30:00 [facility] (NA, K, CL, CO2, GLUCOSE, Medica l Branch BUN, CREATININE, CA) CBC WITH DIFF 2020-05-21 08:30:00 [facility] MRSA / MSSA SCREEN BY 2020-05-21 08:30:00 [facility], [facility] [place], operated [facility] XR HIPS 2 VW LEFT 2020-05-21 05:46:58 [facility] XR SHOULDER 2+ VW LEFT 2020-05-21 03:22:00 [facility] EKG-12 LEAD 2020-05-21 02:53:38 [facility] MAGNESIUM 2020-05-21 01:41:00 [facility] TROPONIN I 2020-05-21 01:41:00 Keon [facility] HEPATIC FUNCTION PANEL 2020-05-21 01:41:00 [facility] ([id number]) (ALB,T.PRO,BILI Medical Branch T,BU/BC,ALT,AST,ALK PHOS) PHOSPHORUS 2020-05-20 23:33:00 Scott, [facility] CREATINE KINASE 2020-05-20 23:33:00 [facility] LIPASE 2020-05-20 23:33:00 Scott, [facility] MAGNESIUM 2020-05-20 23:33:00 Scott, [facility] VITAMIN B12, LEVEL 2020-05-20 23:33:00 Merced Holm [facility] FOLATE 2020-05-20 23:33:00 Mihai [facility] THYROID STIMULATING 2020-05-20 23:33:00 [facility] HORMONE [facility] BASIC METABOLIC PANEL 2020-05-20 23:33:00 [facility] (NA, K, CL, CO2, GLUCOSE, Medica l Branch BUN, CREATININE, CA) CBC WITH DIFF 2020-05-20 23:33:00 [facility] D-DIMER 2020-05-20 23:33:00 Scott, [facility] FIBRINOGEN 2020-05-20 23:33:00 Scott, [facility] URINALYSIS 2020-05-20 23:33:00 Scott, [facility] URINE CULTURE 2020-05-20 23:33:00 Scott, [facility] CREATININE, URINE RANDOM 2020-05-20 23:33:00 Scott, [facility] UREA NITROGEN, URINE 2020-05-20 23:33:00 Scott, [facility] PROCALCITONIN 2020-05-20 23:33:00 Scott, [facility] WI INSERT NON-TUNNEL CV 2020-05-20 23:30:25 Emmanuelle Melgar [facility] ACUTE CARE VENOUS BLOOD 2020-05-20 23:01:00 Emmanuelle Melgar [facility] GAS [facility] N-TERMINAL PRO-BNP 2020-05-20 22:53:00 Arnel MelgarDotna [facility] XR CHEST 1 VW 2020-05-20 22:39:22 [facility] 2020-05-20 22:34:28 [facility] BLOOD CULTURE SCREEN 2020-05-20 22:27:00 Ramón[facility] BLOOD CULTURE WORKUP 2020-05-20 22:27:00 Ramón, [facility] BLOOD CULTURE WORKUP 2020-05-20 22:27:00 Ramón, [facility] GRAM POSITIVE BLOOD 2020-05-20 22:27:00 Ramón, [facility] PATHOGENS DNA Medical Branch PROBE-ANAEROBIC EKG-12 LEAD 2020-05-20 22:24:44 [facility] LEAD 2020-05-20 22:16:30 Ramón, [facility] GALV/CLC ONLY - URINE 2020-05-20 22:12:00 Ramón, [facility] DRUG (IMMUNOASSAY) - 4 ER Medica l Branch PANEL LACTIC ACID WHOLE BLOOD 2020-05-20 21:45:00 Ramón, [facility] EKG-12 LEAD 2020-05-20 21:44:28 Ramón, [facility] EKG-12 LEAD 2020-05-20 21:04:29 Ramón, [facility] COVID-19 (ID NOW RAPID 2020-05-20 20:30:00 Ramón, [facility] TESTING) [facility] CT STROKE HEAD WO 2020-05-20 20:01:49 Ramón [facility] CONTRAST [facility] TROPONIN I 2020-05-20 19:50:00 Ramón, [facility] BASIC METABOLIC PANEL 2020-05-20 19:50:00 Ramón, [facility] (NA, K, CL, CO2, GLUCOSE, Medica l Branch BUN, CREATININE, CA) ETHANOL 2020-05-20 19:50:00 Ramón, [facility] CBC WITHOUT DIFF 2020-05-20 19:50:00 Ramón, [facility] PROTHROMBIN TIME / INR 2020-05-20 19:50:00 Emmanuelle Melgar [facility] ACTIVATED PARTIAL 2020-05-20 19:50:00 Emmanuelle Melgar [facility] HB CREATININE BLOOD 2020-05-20 19:50:00 Emmanuelle Melgar [facility] POCT GLUCOSE (AUTOMATED) 2020-05-20 19:48:00 Emamnuelle Melgar [facility] HOSPITAL ADMISSION 2020-05-20 05:01:00 [facility]igned[facility] Encounters Start End Encounter Admission Attending Care Care Encounter Source Date/Time Date/Time Type Type Clinicians Facility Department ID 2021-09-08 Outpatient 3 Benji, [facility] JORDAN [id number] [facility] 10:47:39 Susie 1014 2021-09-08 Outpatient 3 [id number] [facility] REF [id number] [facility] 10:46:56 1013 2021-09-07 Outpatient Dinero, [facility] [id number] [facility] 14:10:05 [place] [address] [facility] 2021-09-07 Outpatient Dinero, [facility] [id number] 14:03:57 [place] [address] [facility] 2021-09-07 Outpatient Dinero, [facility] 13[facility]59:[place] [address] [facility] 2021-09-07 Outpatient Dinero, [facility] [id number] 13:21:38 [place] [address] [facility] 2021-09-07 Outpatient Dinero, [facility] [id number] 13:19:11 [place] [address] [facility] 2021-09-07 Outpatient Dinero, [facility] [id number] 12:27:26 [place] [id number] [facility] 2021-09-07 Outpatient Dinero, [facility] [id number] 12:23:27 [place] [address] [facility] 2021-09-07 Outpatient Dinero, [facility] [id number] 12:18:07 [place] [address] [facility] 2021-09-07 Outpatient Dinero, [facility] [id number] 12:14:02 [place] [address] [facility] 2021-09-07 Outpatient Dinero, [facility] [id number] 12:09:12 [place] [id number] [facility] 2021-09-07 Outpatient Dinero, [facility] [id number] 12:07:50 [place] [address] [facility] 2021-09-07 Outpatient Dinero, [facility] [id number] 12:07:19 [place] [address] [facility] 2021-09-07 Outpatient Dinero, [facility] [id number] 12:02:12 [place] [address] [facility] 2021-09-07 Outpatient Dinero, [facility] [id number] 11:41:07 [place] [address] [facility] 2021-09-07 Outpatient Dinero, [facility] [id number] 11:36:50 [place] [address] [facility] 2021-09-07 Outpatient Dinero, [facility] [id number] 11:32:26 [place] [address] [facility] 2021-09-07 Outpatient Dinero, [facility] [id number] 11:29:28 [place] [address] [facility] 2021-09-07 Outpatient Dinero, [facility] [id number] 11:29:23 [place] [address] [facility] 2021-09-07 Outpatient Cutler, [facility] [id number] 11:21:52 [place] [address] [facility] 2020-06-04 Outpatient NEW ENCCLR ENCCLR [id number] EN CCLR 14:27:33 ADMISSION 2021-09-06 2021-09-06 ambulatory [facility]LMLC [facility] [id number] [facility] 2021-09-05 2021-09-05 ambulatory [facility]ML[facility] [id number] [facility] 2021-08-30 2021-08-30 ambulatory [facility]ML[facility] [id number] [facility] 2021-06-17 2021-06-17 ambulatory [facility] [id number] [facility] 2021-06-06 2021-06-06 Outpatient [facility] [id number] [facility] 2021-05-19 2021-05-19 Outpatient [facility] [id number] [facility] 2021-03-17 2021-03-17 Outpatient [facility] [id number] [facility] 2021-03-15 2021-03-15 Outpatient [facility] [id number] [facility] 2021-02-12 2021-02-12 Outpatient [facility] [id number] [facility] 2021-02-11 2021-02-11 Outpatient [facility] [id number] [facility] 2021-02-10 2021-02-10 Outpatient [facility] [id number] [facility] 2021-01-27 2021-01-27 Outpatient [facility] [id number] [facility] 2021-01-06 2021-01-06 Outpatient [facility] [id number] [facility] 2020-12-30 2020-12-30 Outpatient [facility] [id number] [facility] 2020-12-17 2020-12-17 Outpatient [facility] [id number] [facility] 2020-12-15 2020-12-15 Outpatient [facility] [id number] [facility] 2020-11-29 2020-11-29 Outpatient [facility] [id number] [facility] 2020-11-24 2020-11-24 Outpatient [facility] [id number] [facility] 2020-11-01 2020-11-01 Outpatient [facility] [id number] [facility] 2020-09-01 2020-09-01 Outpatient [facility] [id number] [facility] 2020-09-01 2020-09-01 Outpatient [facility] [id number] [facility] 2020-08-19 2020-08-19 Jani STARKEY [facility] Orthopedics 7 [id number] Univers 10:45:00 10:45:00 t; TINOMireille YAÑEZ M.D. [place] STEPHEN, Physici M.D. ans 2020-08-18 2020-08-18 Outpatient [facility] [id number] [facility] 2020-08-16 2020-08-16 Orders Doctor CRISTINA [id number] 00:00:00 00:00:00 Only Unassigned, [id number] [facility] 4.2.7.2.686 [id number] 2020-08-16 2020-08-16 Orders Doctor CRISTINA [id number] Univers 00:00:00 00:00:00 Only Unassigned, YOMI 350.1.13.[address] [facility] 4.2.7.2.686 Trell as [id number] [address] 2020-07-26 2020-07-26 Outpatient [facility]LMLC [facility] [id number] [facility] 2020-07-15 2020-07-[facility] Orthopedics 7 [id number] Univers 13:15:00 13:15:00 tMireille MARKS M.D. [place] STEPHEN, Physici M.D. ans 2020-07-15 2020-07-15 Outpatient [facility]MLC [facility] [id number] [facility] 2020-07-14 2020-07-14 Outpatient [facility] [id number] [facility] 2020-07-06 2020-07-06 Outpatient [facility] [id number] [facility] 2020-07-01 2020-07-01 Outpatient [facility] [id number] [facility] 2020-06-30 2020-06-30 Outpatient [facility] [id number] [facility] 2020-06-16 2020-06-16 Outpatient [facility] [id number] [facility] 2020-06-15 2020-06-15 [facility] Orthopedics 7 [id number] [facility] 15:30:00 15:30:00 t; Mireille JIMÉNEZ y cara STARKEY M.D. [place] Denis JIMÉNEZ M.D. [facility] 2020-06-04 2020-06-04 [facility] [id number] 2020-05-20 2020-05-26 [facility] Emmanuelle Melgar 1.2.840.11 [id number] 14:41:00 19:55:00 Encounter Joyce Leachisidro Daley [id number] [facility] 4.2.7.2.686 [id number] [facility] 2020-05-20 2020-05-26 [facility] 1.2.840.11 4 [id number] [facility] 14:41:00 19:55:00 Encounter Regina Leachy [id number] ity [facility] 4.2.7.2.686 [place] [id number] [address] 2020-05-20 2020-05-20 Emergency X EMMANUELLE MELGAR [facility] ERT 1 [id number] Univers 14:41:00 14:41:[address] [facility] 2020-04-26 2020-04-26 [facility] [id number] [facility] 14:21:00 14:21:00 t Itaro [facility] 2020-04-07 2020-04-07 [facility] [id number] 08:03:00 08:03:00 t Itaro [facility] 2020-04-06 2020-04-06 [facility] [id number] 14:45:00 14:45:00 t [facility] Medicine l Medicine Outpati ent Clinics 2020-03-23 2020-03-23 [facility] [id number] 13:45:00 13:45:00 t Safello s - Drive [facility] Medicine Medicine Outpati ent Clinics 2020-03-22 2020-03-22 [facility] [id number] 14:18:00 14:18:00 t [facility] Medicine Medicine Outpati ent Clinics 2020-03-18 2020-03-18 [facility] [id number] 17:11:00 17:11:00 t [facility] Medicine Outpati ent Clinics 2020-03-16 2020-03-16 [facility] [id number] 15:15:00 15:15:00 t [facility] Medicine Medicine Outpati ent Clinics 2020-03-12 2020-03-12 [facility] [id number] 13:47:00 13:47:00 t [facility] Medicine Outpati ent Clinics Results Test Description Test Time Test Comments Results Result Sour e Comments [U] XRAY SHOULDER 2020-08-19 Images Univers ity of MIN 2 VWS LEFT 10:48:00 acquired, not [place] [address] reported on Physicians this accession number. [U] XRAY SHOULDER 2020-07-15 Images Univers ity of MIN 2 VWS LEFT 13:19:00 acquired, not [place] [address] reported on Physicians this accession number. [U] XRAY SHOULDER 2020-06-15 Images Univers ity of MIN 2 VWS LEFT 16:04:00 acquired, not [place] [address] reported on Physicians this accession number. CBC [...] L [Au tomated message] The system which [employer] nerated this result transmit nava reference range: [...] g/dL 31.6-35.1 L RDW-SD (test code = 30530-6) 54.4 fL 39-49.9 H RDW-CV (test code = 788-0) 17.3 % 12-15.5 H PLT (test code = 777-3) See_Comment [Au tomated message] The system which [employer] nerated this result transmit nava reference range: 166 - 35 8 10*3/?L. The reference range was not used to interpret th is result as normal/abnormal . MPV (test code = 93105-3) 9.2 fL 9.5-12.9 L NRBC/100 WBC (test code = See_Comment [ Automated message] The 4120631869) system which [employer] nerated this result transmit nava reference range: 0.0 - 10 .0 /100 WBCs. The reference r josias was not used to interpr et this result as normal/abnor mal. NRBC x10^3 (test code = See_Comment [Au tomated message] The 4905477111) system which [employer] nerated this result transmit nava reference range: 10*3/?L. The reference range was not u sed to interpret this result as normal/abnormal . GRAN MAT (NEUT) % (test code 46.6 % = 770-8) IMM GRAN % (test code = 9.70 % 5314028952) LYMPH % (test code = 736-9) 22.7 % MONO % (test code = 5905-5) 19.3 % EOS % (test code = 713-8) 1.4 % BASO % (test code = 706-2) 0.3 % GRAN MAT x10^3(ANC) (test 3.06 10*3/uL 1.88-7.09 code = 2202886108) IMM GRAN x10^3 (test code = 0.64 10*3/uL 0-0.06 H 4467460168) LYMPH x10^3 (test code = 1.49 10*3/uL 1.32-3.29 731-0) MONO x10^3 (test code = 1.27 10*3/uL 0.33-0.92 H 742-7) EOS x10^3 (test code = 0.09 10*3/uL 0.03-0.39 711-2) BASO x10^3 (test code = <0.03 0.01-0.07 704-7) BASO STIPPLING (test code = Present A 703-9) POLYCHROMASIA (test code = 2+ See_Comment [Automated message] The 91113-5) system which ge nerated this result transmit nava reference range: 2+. The reference range was not used to interpret this result as garett l/abnormal. Lab Interpretation (test Abnormal code = 43056-5) [facility] METABOLIC PANEL (NA, K, CL, CO2, GLUCOSE, BUN, CREATININE, CA)2020-05-26 10:50:00 Test Item Value Reference Range Interpretation Comments NA (test code = 140 mmol/L 135-145 9853439470) K (test code = 3.5 mmol/L 3.5-5 8767668953) CL (test code = 104 mmol/L 98-108 7915856988) CO2 TOTAL (test code = 29 mmol/L 23-31 0003980645) AGAP (test code = 2-16 5262446146) BUN (test code = 40 mg/dL 7-23 H 3526787826) GLUCOSE (test code = 168 mg/dL 70-110 H 8301441486) CREATININE (test code = 1.50 mg/dL 0.5-1.04 H 4158445270) CALCIUM (test code = 8.6 mg/dL 8.6-10.6 6291071111) eGFR Calculation mL/min/1.73m2 (Non-) (test code = 7819448760) eGFR Calculation mL/min/1.73m2 () (test code = 6999819437) SANDEEP (test code = SANDEEP) Association of [...] tests). Lab Interpretation Abnormal (test code = 61830-3) [facility] WHOLE [id number] 18:39:00 Test Item Value Reference Range Interpretation Comments Vitamin B1, Whole 44 nmol/L 70-180 L INTERPRETI VE Blood (test code = INFORMATI ON: Vitamin 13385-5) B1, Whole Blood This assay measures the concentration o f thiamine diphos phate (TDP), the prim kallie active form of vitamin B1. Approximate ly 90 percent of melissa min B1 present in whol e blood is TDP. Thiamin e and thiamine monophosphate, which comprise the re maining 10 percent, are not measured. Test developed and characteristics determined by [facility]. S ee Compliance Stat ement B: Boonty/CONCHITA reddy By: [employer] [place] [address] [id number] Director: Liliana Brito MD Lab Interpretation Abnormal (test code = 49597-5) [facility] METABOLIC PANEL (NA, K, CL, CO2, GLUCOSE, BUN, CREATININE, CA)2020-05-25 10:17:00 Test Item Value Reference Range Interpretation Comments NA (test code = 140 mmol/L 135-145 2103625252) K (test code = 3.8 mmol/L 3.5-5 1232052330) CL (test code = 105 mmol/L 98-108 7080226105) CO2 TOTAL (test code = 29 mmol/L 23-31 9331408687) AGAP (test code = 2-16 6986986431) BUN (test code = 47 mg/dL 7-23 H 8075152250) GLUCOSE (test code = 114 mg/dL 70-110 H 3229658289) CREATININE (test code = 1.63 mg/dL 0.5-1.04 H 2640947990) CALCIUM (test code = 9.1 mg/dL 8.6-10.6 8741818497) eGFR Calculation mL/min/1.73m2 (Non-) (test code = 6151634699) eGFR Calculation mL/min/1.73m2 () (test code = 5432192020) SANDEEP (test code = SANDEEP) Association of [...] tests). Lab Interpretation Abnormal (test code = 62176-0) General acute hospital WITH [id number] 09:45:00 Test Item Value Reference Range Interpretation [...] (test code = 51.3 fL 39-49.9 H 74887-2) RDW-CV (test code = 16.7 % 12-15.5 H 788-0) PLT (test code = See_Comment [Automated 777-3) message] The sy stem which generated this result transmitted reference range : 166 - 358 10*3/ ?L. The reference r josias was not used to interpret this result as normal/abnormal . MPV (test code = 9.6 fL 9.5-12.9 61680-6) IPF % (test code = 1.9 % 1.3-7.7 Platelet count 6200838929) measured by fluorescence method. NRBC/100 WBC (test See_Comment [Automat ed code = 8230611708) message] The system which generated this result transmitted reference range : 0.0 - 10.0 /100 WBCs. The refer ence range was not u sed to interpret th is result as normal/abnormal . NRBC x10^3 (test code See_Comment [Auto mated = 0104736979) message] The s ystem which generated this result transmitted reference range : 10*3/?L. The reference range was not used to interpret this result as normal/abnormal . GRAN MAT (NEUT) % 56.7 % (test code = 770-8) IMM GRAN % (test code 6.90 % = 9725711425) LYMPH % (test code = 14.5 % 736-9) MONO % (test code = 20.2 % 5905-5) EOS % (test code = 0.9 % 713-8) BASO % (test code = 0.8 % 706-2) GRAN MAT x10^3(ANC) 4.25 10*3/uL 1.88-7.09 (test code = 2488053558) IMM GRAN x10^3 (test 0.52 10*3/uL 0-0.06 H code = 9416723626) LYMPH x10^3 (test code 1.09 10*3/uL 1.32-3.29 L = 731-0) MONO x10^3 (test code 1.52 10*3/uL 0.33-0.92 H = 742-7) EOS x10^3 (test code = 0.07 10*3/uL 0.03-0.39 711-2) BASO x10^3 (test code 0.06 10*3/uL 0.01-0.07 = 704-7) BASO STIPPLING (test Present A code = 703-9) HYPERSEG NEUTS (test Present See_Comment A [Autom ated code = 765-8) message] The s [employer] which generated this result transmitted reference range : (none). The reference range was not used to interpret this result as normal/abnormal . Lab Interpretation Abnormal (test code = 76588-5) [facility] 09:30:00 Test Item Value Reference Range Interpretation Comments MAGNESIUM (test code = 3789174781) 2.3 mg/dL 1.7-2.4 Lab Interpretation (test code = Normal 48464-6) [facility])2020-05-24 22:30:00 Test Item Value Reference Range Interpretation Comments POCT GLU (test code = 8128632112) 148 mg/dL 70-110 H Lab Interpretation (test code = Abnormal 37683-2) [facility] [id number] 20:33:00 Test Item Value Reference Range Interpretation Comments VANCO RANDOM (test code = 19.0 ug/mL 4003842287) [facility] [id number] 16:13:00 Test Item Value Reference Range Interpretation Comments Blood Culture Staphylococcus Organism william ntified Workup (test epidermidis by DNA probeFor code = 600-7) susceptibility results, refer to culture # - [id number] Gram stain Isolated from aerobic This i s an appended (test code = bottle Gram positive report. These 664-3) cocci results have be en appended to a previously preliminary ramone ified report. [facility] Random [id number] 11:34:00 Test Item Value Reference Range Interpretation Comments VANCO RANDOM (test code = 22.3 ug/mL 7447397971) [facility] (NA, K, CL, CO2, GLUCOSE, BUN, CREATININE, CA)2020-05-24 11:29:00 Test Item Value Reference Range Interpretation Comments NA (test code = 137 mmol/L 135-145 7425950925) K (test code = 4.5 mmol/L 3.5-5 Slight 8768606272) hemolysis CL (test code = 107 mmol/L 98-108 8641711970) CO2 TOTAL (test code 23 mmol/L 23-31 = 7798928188) AGAP (test code = 2-16 7951576033) BUN (test code = 54 mg/dL 7-23 H Slight 1983066825) hemolysis GLUCOSE (test code = 99 mg/dL 70-110 8465760694) CREATININE (test code 1.86 mg/dL 0.5-1.04 H = 6124065523) CALCIUM (test code = 8.6 mg/dL 8.6-10.6 2300234454) eGFR Calculation mL/min/1.73m2 (Non-) (test code = 7096663294) eGFR Calculation mL/min/1.73m2 () (test code = 4976753807) SANDEEP (test code = SANDEEP) Association of [...] tests). Lab Interpretation Abnormal (test code = 98294-5) [facility]2020-10-12 11:29:00 Test Item Value Reference Range Interpretation Comments MAGNESIUM (test code = 4405194963) 1.5 mg/dL 1.7-2.4 L Lab Interpretation (test code = Abnormal 68297-6) [facility] within 30 minutes prior to 4TH dose.2020-05-23 19:20:00 Test Item Value Reference Range Interpretation Comments VANCO TROUGH (test code 12.1 ug/mL 06-01 = 0950578433) SANDEEP (test code = SANDEEP) Toxic Range: ?>20 ug/mL 15-20 ug/mL is recommended for severe infection or when Vancomycin PIA is greater than or equal to 2. Lab Interpretation (test Normal code = 46350-7) [id number] 15:36:00 Test Item Value Reference Range Interpretation Comments Clostridioides (Clostridium) Negative Negative difficile (test code = 51697-7) Lab Interpretation (test code = Normal 31990-9) [facility] [id number] 15:02:04 Proximal humerus fracture extending through the [...] impaction and posterior fragment displacement with joint effusion.[facility] CULTURE [id number] 13:38:00 Test Item Value Reference Range Interpretation Comments Blood Culture-Aerobic Culture positive. No growth AA P revious (test code = 55884-6) See Blood prelim inary Culture Workup verified resu lt for additional was Culture I n information. Progress on 05/22/2020 at 0003 CDT Blood Culture positive. No growth AA Previous Culture-Anaerobic See Blood preliminar y (test code = 64389-8) Culture Workup veri fied result for additional was Culture I n information. Progress on 05/21/2020 at 06 01 CDT Lab Interpretation Abnormal (test code = 26759-7) [facility] CULTURE [id number] 13:36:00 Test Item Value Reference Range Interpretation Comments Blood Culture-Aerobic Culture positive. No growth AA P revious (test code = 51030-4) See Blood prelim inary Culture Workup verified resu lt for additional was Culture I n information. Progress on 05/21/2020 at 06 01 CDT Blood Culture positive. No growth AA Previous Culture-Anaerobic See Blood preliminar y (test code = 60959-8) Culture Workup veri fied result for additional was Culture I n information. Progress on 05/21/2020 at 06 01 CDT Lab Interpretation Abnormal (test code = 35866-4) [facility] acute [facility] WITH [id number] 10:10:00 Test Item Value Reference Range Interpretation [...] RDW-SD (test code = 48.9 fL 39-49.9 41351-6) RDW-CV (test code = 15.9 % 12-15.5 H 788-0) PLT (test code = See_Comment L [Automated 777-3) message] The sy stem which generated this result transmitted reference range : 166 - 358 10*3/ ?L. The reference r josias was not used to interpret this result as normal/abnormal . MPV (test code = 10.2 fL 9.5-12.9 09569-8) NRBC/100 WBC (test See_Comment [Automat ed code = 3493103938) message] The system which generated this result transmitted reference range : 0.0 - 10.0 /100 WBCs. The refer ence range was not u sed to interpret th is result as normal/abnormal . NRBC x10^3 (test code See_Comment [Auto mated = 9856435366) message] The s ystem which generated this result transmitted reference range : 10*3/?L. The reference range was not used to interpret this result as normal/abnormal . GRAN MAT (NEUT) % 64.1 % (test code = 770-8) IMM GRAN % (test code 5.10 % = 7234108393) LYMPH % (test code = 20.9 % 736-9) MONO % (test code = 8.4 % 5905-5) EOS % (test code = 1.1 % 713-8) BASO % (test code = 0.4 % 706-2) GRAN MAT x10^3(ANC) 2.88 10*3/uL 1.88-7.09 (test code = 6060525198) IMM GRAN x10^3 (test 0.23 10*3/uL 0-0.06 H code = 0649441951) LYMPH x10^3 (test code 0.94 10*3/uL 1.32-3.29 L = 731-0) MONO x10^3 (test code 0.38 10*3/uL 0.33-0.92 = 742-7) EOS x10^3 (test code = 0.05 10*3/uL 0.03-0.39 711-2) BASO x10^3 (test code <0.03 0.01-0.07 = 704-7) TOXIC CHANGES (test Present A code = 803-7) Lab Interpretation Abnormal (test code = 47334-7) [facility] METABOLIC PANEL (NA, K, CL, CO2, GLUCOSE, BUN, CREATININE, CA)2020-05-23 09:52:00 Test Item Value Reference Range Interpretation Comments NA (test code = 134 mmol/L 135-145 L 2456982004) K (test code = 3.5 mmol/L 3.5-5 6889543549) CL (test code = 104 mmol/L 98-108 4634411304) CO2 TOTAL (test code = 22 mmol/L 23-31 L 8262095193) AGAP (test code = 2-16 3013284168) BUN (test code = 55 mg/dL 7-23 H 5251016454) GLUCOSE (test code = 142 mg/dL 70-110 H 2813640025) CREATININE (test code = 2.04 mg/dL 0.5-1.04 H 4243019771) CALCIUM (test code = 8.3 mg/dL 8.6-10.6 L 4732909586) eGFR Calculation mL/min/1.73m2 (Non-) (test code = 7182603777) eGFR Calculation mL/min/1.73m2 () (test code = 0257554622) SANDEEP (test code = SANDEEP) Association of [...] tests). Lab Interpretation Abnormal (test code = 49851-0) [facility] 09:52:00 Test Item Value Reference Range Interpretation Comments MAGNESIUM (test code = 7979347806) 1.8 mg/dL 1.7-2.4 Lab Interpretation (test code = Normal 21456-4) [facility] CenterCB WITHOUT [id number] 15:23:00 Test Item Value Reference Range Interpretation Comments WBC (test code = 6690-2) See_Comment [A utomated message] The system [employer] generated this result transmit nava reference range : 4.30 - 11.10 10*3/?L. The reference range was not used to interpret this result as normal/abnormal . RBC (test code = 789-8) See_Comment L [Au tomated message] The system [employer] generated this result transmit nava reference range [...] See_Comment L [Au tomated message] The system [employer] generated this result transmit nava reference range : 166 - 358 10*3/?L. The reference range was not used to interpret this result as normal/abnormal . MPV (test code = 10.2 fL 9.5-12.9 00354-3) RDW-CV (test code = 15.6 % 12-15.5 H 788-0) RDW-SD (test code = 48.3 fL 39-49.9 60646-0) NRBC x10^3 (test code = See_Comment [Au tomated message] 2852744571) The system [employer] generated this result transmit nava reference range : 10*3/?L. The reference range was not used to interpret this result as normal/abnormal . NRBC/100 WBC (test code See_Comment [Au tomated message] = 3681177241) The system [facility] generated this result transmit nava reference range : 0.0 - 10.0 /100 WBC s. The reference r josias was not used to interpret this result as normal/abnormal . IPF % (test code = 0361772460) Lab Interpretation (test Abnormal code = 18962-3) [facility] (NA, K, CL, CO2, GLUCOSE, BUN, CREATININE, CA)2020-05-22 08:05:00 Test Item Value Reference Range Interpretation Comments NA (test code = 134 mmol/L 135-145 L 5732641255) K (test code = 3.3 mmol/L 3.5-5 L 2502451501) CL (test code = 103 mmol/L 98-108 5752193970) CO2 TOTAL (test code = 23 mmol/L 23-31 0903203344) AGAP (test code = 2-16 0224381358) BUN (test code = 57 mg/dL 7-23 H 3479081983) GLUCOSE (test code = 130 mg/dL 70-110 H 9544061447) CREATININE (test code = 2.26 mg/dL 0.5-1.04 H 0238656681) CALCIUM (test code = 8.0 mg/dL 8.6-10.6 L 2095556383) eGFR Calculation mL/min/1.73m2 (Non-) (test code = 4118040274) eGFR Calculation mL/min/1.73m2 () (test code = 7854225998) SANDEEP (test code = SANDEEP) Association of [...] tests). Lab Interpretation Abnormal (test code = 94381-9) [facility]-10 08:05:00 Test Item Value Reference Range Interpretation Comments MAGNESIUM (test code = 2589508749) 2.4 mg/dL 1.7-2.4 Lab Interpretation (test code = Normal 06321-4) [facility] acute hospital WITH [id number] 07:44:00 Test Item Value Reference Range Interpretation [...] RDW-SD (test code = 48.8 fL 39-49.9 83156-9) RDW-CV (test code = 15.9 % 12-15.5 H 788-0) PLT (test code = See_Comment L [Automated 777-3) message] The sy stem which generated this result transmitted reference range : 166 - 358 10*3/ ?L. The reference r josias was not used to interpret this result as normal/abnormal . MPV (test code = 10.2 fL 9.5-12.9 84648-3) NRBC/100 WBC (test See_Comment [Automat ed code = 2467845979) message] The system which generated this result transmitted reference range : 0.0 - 10.0 /100 WBCs. The refer ence range was not u sed to interpret th is result as normal/abnormal . NRBC x10^3 (test code See_Comment [Auto mated = 1237252310) message] The s ystem which generated this result transmitted reference range : 10*3/?L. The reference range was not used to interpret this result as normal/abnormal . GRAN MAT (NEUT) % 78.8 % (test code = 770-8) IMM GRAN % (test code 1.10 % = 7764417496) LYMPH % (test code = 12.3 % 736-9) MONO % (test code = 6.5 % 5905-5) EOS % (test code = 1.2 % 713-8) BASO % (test code = 0.1 % 706-2) GRAN MAT x10^3(ANC) 7.21 10*3/uL 1.88-7.09 H (test code = 8129648077) IMM GRAN x10^3 (test 0.10 10*3/uL 0-0.06 H code = 1484982948) LYMPH x10^3 (test code 1.12 10*3/uL 1.32-3.29 L = 731-0) MONO x10^3 (test code 0.59 10*3/uL 0.33-0.92 = 742-7) EOS x10^3 (test code = 0.11 10*3/uL 0.03-0.39 711-2) BASO x10^3 (test code <0.03 0.01-0.07 = 704-7) Lab Interpretation Abnormal (test code = 29113-3) [facility] CenterGRAM POSITIVE BLOOD PATHOGENS DNA [id number] 06:07:00 Test Item Value Reference Range Interpretation Comments Coagulase Negative Positive Negative, See A Staphylococcus (test Comment/Narrative code = 68432-2) SANDEEP (test code = SANDEEP) Coagulase negative [...] contact the Antimicrobial Stewardship Program with questions.Pager: ?[phone] Testing included eleven identification and three resistance marker targets. Lab Interpretation Abnormal (test code = 28478-8) [facility] CenterVancomycin Random [id number] 04:46:00 Test Item Value Reference Range Interpretation Comments VANCO RANDOM (test code = 7827514377) <5.0 ug/mL [facility]CBC WITHOUT [id number] 23:31:00 Test Item Value Reference Range Interpretation Comments WBC (test code = 6690-2) See_Comment [A utomated message] The system [employer] generated this result transmit nava reference range : 4.30 - 11.10 10*3/?L. The reference range was not used to interpret this result as normal/abnormal . RBC (test code = 789-8) See_Comment L [Au tomated message] The system [employer] generated this result transmit nava reference range [...] See_Comment L [Au tomated message] The system [employer] generated this result transmit nava reference range : 166 - 358 10*3/?L. The reference range was not used to interpret this result as normal/abnormal . MPV (test code = 10.5 fL 9.5-12.9 64212-0) RDW-CV (test code = 16.0 % 12-15.5 H 788-0) RDW-SD (test code = 49.4 fL 39-49.9 48003-1) NRBC x10^3 (test code = <0.01 See_Comment [Au tomated message] 2775511685) The system [employer] generated this result transmit nava reference range : 10*3/?L. The reference range was not used to interpret this result as normal/abnormal . NRBC/100 WBC (test code See_Comment [Au tomated message] = 9888866992) The system [employer] generated this result transmit nava reference range : 0.0 - 10.0 /100 WBC s. The reference r josias was not used to interpret this result as normal/abnormal . IPF % (test code = 5168491141) Lab Interpretation (test Abnormal code = 65742-6) [facility] CenterCREATINE [id number] 21:30:00 Test Item Value Reference Range Interpretation Comments CK (test code = 8766485394) 2974 U/L 33-194 H Lab Interpretation (test code = Abnormal 33817-1) [facility] CenterCREATINE [id number] 20:54:00 Test Item Value Reference Range Interpretation Comments CK (test code = 5843748763) 4670 U/L 33-194 H Lab Interpretation (test code = Abnormal 20753-1) [facility] CenterURINE [id number] 20:43:00 Test Item Value Reference Range Interpretation Comments URINE CULTURE (test No aerobic growth (< code = 630-4) 1000 CFU/mL) [facility] CenterPOCT [id number] 19:00:00 Test Item Value Reference Range Interpretation Comments POCT Creatinine (test code = 7.4 mg/dL 0.5-1.1 H 5974267751) Lab Interpretation (test code = Abnormal 72465-7) [facility] CenterMRSA / MSSA Screen by PCR, [id number] 16:40:00 Test Item Value Reference Range Interpretation Comments MSSA Screen by PCR, Positive Negative A Nares (test code = 14937-9) MRSA/MSSA Positive? Yes No A (test code = 2120162214) SANDEEP (test code = SANDEEP) A positive test result does not necessarily indicate the presence of viable organism. Lab Interpretation (test Abnormal code = 92755-1) [facility] CenterXR HUMERUS 2 VW [id number] 15:55:36 Stable appearing greater tuberosity fracture. Lateral [...] glenoid fossa. No other fracture is seen. 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 Lateral [...] glenoid fossa. No other fracture is seen. 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 Lateral [...] glenoid fossa. No other fracture is seen. 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 osteochondral defect.[facility] CenterHEPATIC FUNCTION PANEL (10029) (ALB,T.PRO,BILI T,BU/BC,ALT,AST,ALK PHOS)2020-05-21 13:04:00 Test Item Value Reference Range Interpretation Comments TOTAL BILI (test code = 9798923413) 0.7 mg/dL 0.1-1.1 BILI UNCON (test code = 2875077792) 0.6 mg/dL 0.1-1.1 BILI CONJ (test code = 4303511363) 0.0 mg/dL 0-0.3 T PROTEIN (test code = 1880865847) 5.5 g/dL 6.3-8.2 L ALBUMIN (test code = 6072121199) 2.8 g/dL 3.5-5 L ALK PHOS (test code = 5999171164) 66 U/L 34-122 ALTv (test code = 1742-6) 30 U/L 5-35 AST(SGOT) (test code = 6546201932) 163 U/L 13-40 H Lab Interpretation (test code = Abnormal 01309-3) [facility] CenterXR SH[facility] 2+ VW [id number] 10:30:08 Greater tuberosity fracture. EXAM: XR HIPS [...] and facetarthropathy with spondylosis are partially visualized. [facility], Radiant Results Inft User - 05/21/2020 5:31 [...] facetarthropathy with spondylosis are partially visualized.IMPRESSIONGreater tuberosity fracture.[facility] CenterXR HIPS 2 VW [id number] 10:30:08 Greater tuberosity fracture. EXAM: XR HIPS [...] and facetarthropathy with spondylosis are partially visualized. [facility], Radiant Results Inft User - 05/21/2020 5:31 [...] facetarthropathy with spondylosis are partially visualized.IMPRESSIONGreater tuberosity fracture.General acute hospital WITH [id number] 09:30:00 Test Item Value Reference Range Interpretation [...] RDW-SD (test code = 49.7 fL 39-49.9 58029-2) RDW-CV (test code = 15.9 % 12-15.5 H 788-0) PLT (test code = See_Comment L [Automated 777-3) message] The sy stem which generated this result transmitted reference range : 166 - 358 10*3/ ?L. The reference r josias was not used to interpret this result as normal/abnormal . MPV (test code = 10.3 fL 9.5-12.9 74573-0) NRBC/100 WBC (test See_Comment [Automat ed code = 9749617169) message] The system which generated this result transmitted reference range : 0.0 - 10.0 /100 WBCs. The refer ence range was not u sed to interpret th is result as normal/abnormal . NRBC x10^3 (test code See_Comment [Auto mated = 0633946377) message] The s ystem which generated this result transmitted reference range : 10*3/?L. The reference range was not used to interpret this result as normal/abnormal . GRAN MAT (NEUT) % 85.4 % (test code = 770-8) IMM GRAN % (test code 0.80 % = 6842204470) LYMPH % (test code = 7.7 % 736-9) MONO % (test code = 5.8 % 5905-5) EOS % (test code = 0.2 % 713-8) BASO % (test code = 0.1 % 706-2) GRAN MAT x10^3(ANC) 9.49 10*3/uL 1.88-7.09 H (test code = 9231233567) IMM GRAN x10^3 (test 0.09 10*3/uL 0-0.06 H code = 5701782043) LYMPH x10^3 (test code 0.86 10*3/uL 1.32-3.29 L = 731-0) MONO x10^3 (test code 0.65 10*3/uL 0.33-0.92 = 742-7) EOS x10^3 (test code = <0.03 0.03-0.39 L 711-2) BASO x10^3 (test code <0.03 0.01-0.07 = 704-7) BANDS (test code = Increased A 7250100822) Lab Interpretation Abnormal (test code = 57040-9) [facility]MAGNESIUM2020-10-09 09:26:00 Test Item Value Reference Range Interpretation Comments MAGNESIUM (test code = 2099797236) 9.7 mg/dL 1.7-2.4 H Lab Interpretation (test code = Abnormal 76887-9) [facility] (NA, K, CL, CO2, GLUCOSE, BUN, CREATININE, CA)2020-05-21 09:13:00 Test Item Value Reference Range Interpretation Comments NA (test code = 132 mmol/L 135-145 L 9932400321) K (test code = 3.9 mmol/L 3.5-5 2529127256) CL (test code = 104 mmol/L 98-108 7105954247) CO2 TOTAL (test code = 15 mmol/L 23-31 L 9912102415) AGAP (test code = 2-16 6974647102) BUN (test code = 62 mg/dL 7-23 H 9419958153) GLUCOSE (test code = 114 mg/dL 70-110 H 3167638259) CREATININE (test code = 4.07 mg/dL 0.5-1.04 H 0479223283) CALCIUM (test code = 7.5 mg/dL 8.6-10.6 L 1206478981) eGFR Calculation mL/min/1.73m2 (Non-) (test code = 4957733794) eGFR Calculation mL/min/1.73m2 () (test code = 2139683716) SANDEEP (test code = SANDEEP) Association of [...] tests). Lab Interpretation Abnormal (test code = 07681-4) [facility] CenterEDIE [id number] 09:13:00 Test Item Value Reference Range Interpretation Comments TROPONIN I (test 0.113 ng/mL See_Comment H [Automated code = 8238290853) message] The system which generated this result [...] ? Lab Interpretation Abnormal (test code = 89977-3) [facility] CenterVITAMIN B12, [id number] 05:54:00 Test Item Value Reference Range Interpretation Comments VIT B12 (test code = 352 pg/mL 240-930 7959215005) SANDEEP (test code = SANDEEP) Biotin has been reported to cause a positive bias, interpret results relative to patient's use of biotin. Lab Interpretation (test Normal code = 89967-0) [facility] CenterFOLATE2020-10-09 05:54:00 Test Item Value Reference Range Interpretation Comments FOLATE SER (test code = 8186418039) 9.5 ng/mL 3-20 Lab Interpretation (test code = Normal 82425-2) [facility] CenterMAGNESIUM2020-10-09 04:48:00 Test Item Value Reference Range Interpretation Comments MAGNESIUM (test code = 1764408557) 1.7 mg/dL 1.7-2.4 Lab Interpretation (test code = Normal 76742-4) [facility] CenterTHYROID STIMULATING [id number] 04:04:00 Test Item Value Reference Range Interpretation Comments TSH (test code = See_Comment [Automated message] 2627656192) The system [employer] generated this result transmitted ref erence range: 0.45 - 4 .70 mIU/L. The refe rence range was not u sed to interpret this result as normal/abnor mal. Lab Interpretation (test Normal code = 98696-4) [facility] CenterCREATINE [id number] 03:33:00 Test Item Value Reference Range Interpretation Comments CK (test code = 9383353550) 6736 U/L 33-194 H Lab Interpretation (test code = Abnormal 81416-6) [facility] CenterTROPONIN [id number] 02:39:00 Test Item Value Reference Range Interpretation Comments TROPONIN I (test 0.113 ng/mL See_Comment H [Automated code = 0135727134) message] The system which generated this result [...] ? Lab Interpretation Abnormal (test code = 07788-7) [facility] CenterURINALYSIS2020-10-09 00:55:00 Test Item Value Reference Range Interpretation Comments APPEARANCE (test code = Cloudy Clear A 2835799727) COLOR (test code = Riri Yellow A 2570160289) PH (test code = 4.8-8.0 3841549119) SP GRAVITY (test code = 1.003-1.030 2761837484) GLU U QUAL (test code = 50 mg/dL Normal A 6354850120) BLOOD (test code = 3+ Negative A 7790433618) KETONES (test code = 5 mg/dL Negative A 8744646126) PROTEIN (test code = 100 mg/dL Negative A 2887-8) UROBILIN (test code = Normal Normal 1564798434) BILIRUBIN (test code = Negative Negative 1876726394) NITRITE (test code = Negative Negative 8455189793) LEUK SPIKE (test code = Negative Negative 8600509702) RBC/HPF (test code = See_Comment [Autom ated message] 1974127264) The system [employer] generated this result transmit nava reference range : 0 - 3 HPF. The refe rence range was not u sed to interpret th is result as normal/abnormal . WBC/HPF (test code = See_Comment [Autom ated message] 5682855593) The system [employer] generated this result transmit nava reference range : 0 - 5 HPF. The refe rence range was not u sed to interpret th is result as normal/abnormal . BACTERIA (test code = Few Negative A 7303110091) MUCOUS (test code = Moderate Negative LPF A 5858059555) SQ EPITH (test code = See_Comment H [Auto mated message] 9923811712) The system [employer] generated this result transmit nava reference range : <=2 HPF. The refere nce range was not u sed to interpret th is result as normal/abnormal . HYAL CAST (test code = See_Comment H [Aut omated message] 5306550940) The system [employer] generated this result transmit nava reference range : <=2 LPF. The refere nce range was not u sed to interpret th is result as normal/abnormal . Lab Interpretation (test Abnormal code = 03925-1) [facility] CenterLIPASE2020-10-09 00:37:00 Test Item Value Reference Range Interpretation Comments LIPASE (test code = 6877085764) 3911 U/L 0-220 H Lab Interpretation (test code = Abnormal 63144-3) [facility] CenterPROCALCITONIN2020-10-09 00:37:00 Test Item Value Reference Range Interpretation Comments Procalcitonin (test 4.99 ng/mL <0.07 H code = 5685415230) SANDEEP (test code = SANDEEP) INTERPRETATION OF [...] lung abscess/empyema. For further information please refer to:[email or web address] Lab Interpretation Abnormal (test code = 63149-5) [facility] CenterMAGNESIUM2020-10-09 00:18:00 Test Item Value Reference Range Interpretation Comments MAGNESIUM (test code = 3641715570) 1.8 mg/dL 1.7-2.4 Lab Interpretation (test code = Normal 96033-7) [facility] CenterPHOSPHORUS2020-10-09 00:18:00 Test Item Value Reference Range Interpretation Comments PHOSPHORUS (test code = 6956989501) 3.1 mg/dL 2.5-5 Lab Interpretation (test code = Normal 82854-3) [facility] CenterBASIC METABOLIC PANEL (NA, K, CL, CO2, GLUCOSE, BUN, CREATININE, CA)2020-05-21 00:18:00 Test Item Value Reference Range Interpretation Comments NA (test code = 132 mmol/L 135-145 L 4968672237) K (test code = 4.2 mmol/L 3.5-5 1147286378) CL (test code = 103 mmol/L 98-108 4862324971) CO2 TOTAL (test code = 16 mmol/L 23-31 L 9908131008) AGAP (test code = 2-16 7058599186) BUN (test code = 66 mg/dL 7-23 H 4668425817) GLUCOSE (test code = 113 mg/dL 70-110 H 8735396841) CREATININE (test code = 5.17 mg/dL 0.5-1.04 H 8621451795) CALCIUM (test code = 7.2 mg/dL 8.6-10.6 L 6780760542) eGFR Calculation mL/min/1.73m2 (Non-) (test code = 6852464417) eGFR Calculation mL/min/1.73m2 () (test code = 9261181671) SANDEEP (test code = SANDEEP) Association of [...] tests). Lab Interpretation Abnormal (test code = 62090-6) [facility] CenterD-VNTEB4834-47-44 23:55:00 Test Item Value Reference Interpretation Comments Range D-DIMER (test code = See_Comment H [Autom ated 1333389181) message] The system which generated this result [...] diagnosis. Lab Interpretation Abnormal (test code = 91494-1) [facility] CenterFIBRINOGEN2020-10-08 23:55:00 Test Item Value Reference Range Interpretation Comments Fibrinogen (test code = 5506254352) 389 mg/dL 167-453 Lab Interpretation (test code = Normal 26204-3) [facility] CenterCREATININE, URINE [id number] 23:53:00 Test Item Value Reference Range Interpretation Comments CREAT U (test code = 5523362490) 101.7 mg/dL [facility] CenterUREA NITROGEN, URINE [id number] 23:53:00 Test Item Value Reference Range Interpretation Comments UREA N UR (test code = 5653216168) 301 mg/dL [facility] CenterCBC WITH [id number] 23:49:00 Test Item Value Reference Range Interpretation Comments WBC (test code = See_Comment [Automated 5090-2) message] The sy stem which generated this result transmitted reference range : 4.30 - 11.10 10*3/?L. The reference range was not used to interpret this result as normal/abnormal . RBC (test code = See_Comment L [Automated 959-8) message] The sy stem which generated this [...] RDW-SD (test code = 47.8 fL 39-49.9 86308-4) RDW-CV (test code = 15.8 % 12-15.5 H 788-0) PLT (test code = See_Comment L [Automated 777-3) message] The sy stem which generated this result transmitted reference range : 166 - 358 10*3/ ?L. The reference r josias was not used to interpret this result as normal/abnormal . MPV (test code = 9.6 fL 9.5-12.9 50743-7) NRBC/100 WBC (test See_Comment [Automat ed code = 4346375332) message] The system which generated this result transmitted reference range : 0.0 - 10.0 /100 WBCs. The refer ence range was not u sed to interpret th is result as normal/abnormal . NRBC x10^3 (test code See_Comment [Auto mated = 9406146377) message] The s ystem which generated this result transmitted reference range : 10*3/?L. The reference range was not used to interpret this result as normal/abnormal . GRAN MAT (NEUT) % 85.9 % (test code = 770-8) IMM GRAN % (test code 1.10 % = 0506620045) LYMPH % (test code = 7.3 % 736-9) MONO % (test code = 5.6 % 5905-5) EOS % (test code = 0.0 % 713-8) BASO % (test code = 0.1 % 706-2) GRAN MAT x10^3(ANC) 8.16 10*3/uL 1.88-7.09 H (test code = 4115499163) IMM GRAN x10^3 (test 0.10 10*3/uL 0-0.06 H code = 8467304220) LYMPH x10^3 (test code 0.69 10*3/uL 1.32-3.29 L = 731-0) MONO x10^3 (test code 0.53 10*3/uL 0.33-0.92 = 742-7) EOS x10^3 (test code = <0.03 0.03-0.39 L 711-2) BASO x10^3 (test code <0.03 0.01-0.07 = 704-7) Lab Interpretation Abnormal (test code = 72386-8) [facility] [id number] 23:46:21 Bilateral interstitial prominence most prominent within [...] abnormality is identified. Resuscitation pads projectoverthe chest. [facility], Radiant Results Inft User - 05/20/2020 6:47 [...] this study and agree with theabove report. [facility] [id number] 23:30:25Emmanuelle Melgar DO ? ? 05/20/2020 ?6:30 [...] tolerance of procedure: ?Tolerated well, no immediate complicationsUnNorth [facility] CampusN-TERMINAL PRO-BNP 2020-05-20 23:28:00 Test Item Value Reference Range Interpretation Comments NT-proBNP (test code 68683 pg/mL See_Comment H [Autom ated = 6032910265) message] The system which generated this result transmitted reference range : <=125. The reference range was not used to interpret this result as normal/abnormal . SANDEEP (test code = SANDEEP) Biotin has been reported to cause a negative bias, interpret results relative to patient's use of biotin. Lab Interpretation Abnormal (test code = 49276-4) [facility] VENOUS BLOOD [id number] 23:13:00 Test Item Value Reference Range Interpretation Comments PH (test code = 7.32-7.42 LL 1227658915) PCO2 MASTER (test code = See_Comment [Auto mated message] 6950741637) The system [employer] generated this result transmitted ref erence range: 41 - 51 mmHg. The reference r josias was not used to interpret this result as normal/abnor mal. PO2 MASTER (test code = See_Comment H [Autom ated message] 9954870327) The system [employer] generated this result transmitted ref erence range: 25 - 40 mmHg. The reference r josias was not used to interpret this result as normal/abnor mal. HCO3 MASTER (test code = See_Comment L [Auto mated message] 2240158030) The system [employer] generated this result transmitted ref erence range: 24 - 28 mEq/L. The reference r josias was not used to interpret this result as normal/abnor mal. AC VBE(BEAKER) (test mEq/L code = 2241910455) Lab Interpretation (test Abnormal code = 23477-8) [facility] [id number] 22:50:00 Test Item Value Reference Range Interpretation Comments AMPHET (test code = Negative Negative 9551252667) Cocaine Metabolite (test Negative Negative code = 6300201415) OPIATES (test code = Negative Negative 1082572276) THC (test code = Negative Negative 2088115477) SANDEEP (test code = SANDEEP) Urine Drug Cutoff Ranges Amphetamine: ? 1,000 ng/mLCocaine: ? 150 ng/mLOpiates: ? 300 ng/mLCannabinoids: ?50 ng/mL The results are to be used only for medical (i.e., treatment) purposes. Unconfirmed screening results must not be used for non-medical purposes (e.g., employment testing, legal testing). Lab Interpretation (test Normal code = 64487-5) [facility] CenterLactic Acid Whole [id number] 21:52:00 Test Item Value Reference Range Interpretation Comments LACTIC ACID (test code = 1.91 mmol/L 5497267162) [facility] CenterEthanol [id number] 21:21:00 Test Item Value Reference Range Interpretation Comments ALCOHOL (test code = <10 mg/dL 9646601425) SANDEEP (test code = Toxic Greater than or SANDEEP) equal to 80 mg/dL. NOTE: Whole blood values are approximately 10% to 15% lower than serum and plasma. [facility] CenterCOVID-19 (ID NOW RAPID TESTING)2020-05-20 20:58:00 Test Item Value Reference Range Interpretation Comments SARS-CoV-2 Rapid ID NOW Not Detected Not Detected (test code = 02896-5) SANDEEP (test code = SANDEEP) ID NOW COVID-19 Assay is an isothermal nucleic acid amplification test intended for the qualitative detection of nucleic acid from SARS-CoV-2 viral RNA in nasopharyngeal (HVAC ENGINEER) specimens. It is used under Emergency Use [...] indicated. Lab Interpretation Normal (test code = 54784-3) [facility] CenterCT STROKE HEAD WO [id number] 20:47:16 Mild asymmetry in the cerebral sulci [...] more sensitiveevaluationPreliminary Report Dictated by Resident: Cristina Casiano reviewed this study and agree with the above reportwith the following minormodifications, no overt evidence of acuteintracranial abnormality.I, Cristina Vegas MD., have reviewed this study and agree with theabove report.[facility]Tr[facility] I - Code [id number] 20:20:00 Test Item Value Reference Range Interpretation Comments TROPONIN I (test 0.136 ng/mL See_Comment H [Automated code = 1546700441) message] The system which generated this result [...] ? Lab Interpretation Abnormal (test code = 88889-3) [facility] CenterBasi Metabolic Panel (NA, K, CL, CO2, Glucose, BUN, Creatinine, CA) - Code [id number] 20:09:00 Test Item Value Reference Range Interpretation Comments NA (test code = 126 mmol/L 135-145 L 5664787974) K (test code = 5.7 mmol/L 3.5-5 H Slight 9953436619) hemolysis CL (test code = 92 mmol/L 98-108 L 6666598641) CO2 TOTAL (test code 13 mmol/L 23-31 L = 2344577730) AGAP (test code = 2-16 H 8813491583) BUN (test code = 74 mg/dL 7-23 H Slight 4366540195) hemolysis GLUCOSE (test code = 175 mg/dL 70-110 H 2432556001) CREATININE (test code 6.72 mg/dL 0.5-1.04 H = 3556405330) CALCIUM (test code = 8.9 mg/dL 8.6-10.6 0664935496) eGFR Calculation mL/min/1.73m2 (Non-) (test code = 5500633783) eGFR Calculation mL/min/1.73m2 () (test code = 9029925455) SANDEEP (test code = SANDEEP) Association of [...] tests). Lab Interpretation Abnormal (test code = 08813-9) [facility] CenterProthrombin Time / INR - Code [id number] 20:06:00 Test Item Value Reference Range Interpretation Comments PROTIME PATIENT (test See_Comment L [Auto mated message] code = 5964-2) The system [employer] generated this result transmitted ref erence range: 10.1 - 1 2.6 Seconds. The reference range was not used to int erpret this result as normal/abnormal . INR (test code = 6301-6) Nor mal INR <1.1; Warfarin Therap eutic range 2.0 to 3. 0 or 2.5 to 3.5, dep ending upon the indica tions. Lab Interpretation (test Abnormal code = 40985-7) [facility] CenteraPTT2020-10-08 20:05:00 Test Item Value Reference Range Interpretation Comments APTT Patient (test code = See_Comment [ Automated message] 3173-2) The system [employer] generated this result transmitted ref erence range: 26 - 36 Seconds. The re ference range was not u sed to interpret this result as normal/abnor mal. Lab Interpretation (test Normal code = 95400-7) General acute hospital without Diff - Code [id number] 19:57:00 Test Item Value Reference Range Interpretation Comments WBC (test code = 6690-2) See_Comment H [A utomated message] The system [employer] generated this result transmit nava reference range : 4.30 - 11.10 10*3/?L. The reference range was not used to interpret this result as normal/abnormal . RBC (test code = 789-8) See_Comment [Au tomated message] The system [employer] generated this result transmit nava reference range [...] See_Comment L [Au tomated message] The system [employer] generated this result transmit nava reference range : 166 - 358 10*3/?L. The reference range was not used to interpret this result as normal/abnormal . MPV (test code = 10.9 fL 9.5-12.9 96491-8) RDW-CV (test code = 15.9 % 12-15.5 H 788-0) RDW-SD (test code = 48.2 fL 39-49.9 31230-8) NRBC x10^3 (test code = See_Comment [Au tomated message] 9031158906) The system whic h generated this result transmit nava reference range : 10*3/?L. The reference range was not used to interpret this result as normal/abnormal . NRBC/100 WBC (test code See_Comment [Au tomated message] = 9169392766) The system [employer] generated this result transmit nava reference range : 0.0 - 10.0 /100 WBC s. The reference r josias was not used to interpret this result as normal/abnormal . IPF % (test code = 2803733573) Lab Interpretation (test Abnormal code = 20613-2) [facility] CenterPOCT GLUCOSE (AUTOMATED)2020-05-20 19:54:00 Test Item Value Reference Range Interpretation Comments POCT GLU (test code = 9041678812) 192 mg/dL 70-110 H Lab Interpretation (test code = Abnormal 79323-5) [facility] CenterRAD, ABDOMEN/KUB, 1 VIEW [id number] 08:21:00 Reason for exam:->nauseaIs the patient ?->NoFINAL [...] the colon and rectum. Signed: Lexi Gonsalez MDReport Verified Date/Time: 10/14/2018 08:21:37 Reading Location: [facility] Radiology Reading Room CBC W/PLT COUNT & AUTO [id number] 08:18:00 Test Item Value Reference Range Interpretation [...] Received comment: User comments: Slide comments:BASIC METABOLIC [id number] 06:23:00 Test Item Value Reference Range Interpretation [...] S NOT APPLICABLE FOR DIALYSIS PATIEN TS. [id number] 09:49:00 Test Item Value Reference Range Interpretation Comments LIPASE (BEAKER) (test code = 749) 37 U/L 8-78 HEPATIC FUNCTION [id number] 09:49:00 Test Item Value Reference Range Interpretation [...] Differential performed on an albumin smear.BASIC METABOLIC [id number] 03:40:00 Test Item Value Reference Range Interpretation [...] PATIEN TS. CBC W/PLT COUNT & AUTO [id number] 03:00:00 Test Item Value Reference Range Interpretation [...] 0-0 (BEAKER) (test code = 413) POCT-GLUCOSE [id number] 21:19:00 Test Item Value Reference Range Interpretation Comments POC-GLUCOSE METER 216 mg/dL 70-110 H TESTED AT [facility] 67 ([facility]) (test code = [place] 1538) [address] POCT-GLUCOSE [id number] 12:46:00 Test Item Value Reference Range Interpretation Comments POC-GLUCOSE METER 174 mg/dL 70-110 H TESTED AT [facility] 6720 ([facility]) (test code = RODOLFO Pitts [facility] 1538) [address] RAD, ABDOMEN/KUB, 1 VIEW [id number] 10:26:00Reason for exam:->abd distension, eval for obstruction/ileusIs [...] MDReport Verified Date/Time: 10/12/2018 10:26:01 Reading Location: [facility] B1 C013Y CT Body Reading Room CBC W/PLT COUNT & AUTO [id number] 09:45:00 Test Item Value Reference Range Interpretation [...] 3438) Received comment: User comments: Slide comments:POCT-GLUCOSE [id number] 07:56:00 Test Item Value Reference Range Interpretation Comments POC-GLUCOSE METER 213 mg/dL 70-110 H TESTED AT [facility] 6720 (BEAKER) (test code = [place] 1538) [address] BASIC METABOLIC [id number] 07:38:00 Test Item Value Reference Range Interpretation [...] NOT APPLICABLE FOR DIALYSIS PATIEN TS. POCT-GLUCOSE [id number] 18:35:00 Test Item Value Reference Range Interpretation Comments POC-GLUCOSE METER 196 mg/dL 70-110 H TESTED AT [place] [address] ([facility]) (test code = RODOLFO [place] [facility] 1538) [address] POCT-GLUCOSE [id number] 12:01:00 Test Item Value Reference Range Interpretation Comments POC-GLUCOSE METER 184 mg/dL 70-110 H TESTED AT [place] [address] ([facility]) (test code = DANIELID Gisselle [facility] 1538) [address] POCT-GLUCOSE [id number] 08:12:00 Test Item Value Reference Range Interpretation Comments POC-GLUCOSE METER 215 mg/dL 70-110 H TESTED AT [place] [address] ([facility]) (test code = [facility] Gisselle [facility] 1538) [address] BASIC METABOLIC [id number] 06:51:00 Test Item Value Reference Range Interpretation [...] PATIEN TS. CBC W/PLT COUNT & AUTO [id number] 06:15:00 Test Item Value Reference Range Interpretation [...] PERCENT (BEAKER) (test code = 2801) POCT-GLUCOSE [id number] 22:53:00 Test Item Value Reference Range Interpretation Comments POC-GLUCOSE METER 207 mg/dL 70-110 H TESTED AT [facility] 67[address] ([facility]) (test code = ROD[place]FO [place] [facility] 1538) [address] RAD, CHEST, 1 VIEW, NON [id number] 22:32:00Reason for exam:->coughShould this be performed at the bedside?->YesFINAL REPORT TECHNIQUE: Single view of the chest. COMPARISON: 10/07/2018 FINDINGS: The cardiac silhouette is within normal limits. Mediastinum is unremarkable. Right lung curvilinear density may represent atelectasis or scarring, stable. Otherwise lungs are clear. No acute skeletal abnormality. Soft tissues appear unremarkable. IMPRESSION: No acute cardiopulmonary disease. Signed: Bryce Fox Verified Date/Time: 10/10/2018 22:32:10 Reading Location: [facility] POCT-GLUCOSE [id number] 22:05:00 Test Item Value Reference Range Interpretation Comments POC-GLUCOSE METER 202 mg/dL 70-110 H TESTED AT [facility] 6720 ([facility]) (test code = RODOLFO Pitts [facility] 1538) [address] RESPIRATORY PANEL [id number] 13:26:00 Test Item Value Reference Range Interpretation [...] decisions. This sample was tested at the [facility] Molecular Diagnostics Laboratory using the [employer] Film[employer] Respiratory Panel. It is FDA cleared and has been verified and approved by the [facility] for clinical use on nasal swab specimens. It is not FDA-cleared for use on bronchial wash/lavage samples. However, for this sample type, validation was performed and test characteristics were determined and approved, by [facility] [employer] Diagn[facility] laboratory for clinical use under the Clinical Laboratory Improvement Amendments (CLIA) of 1988 requirements. Therefore, FDA clearance isnot required. This laboratory is CLIA- certified and [employer] (CAP)-accredited to perform high complexity testing.POCT-GLUCOSE [id number] 11:47:00 Test Item Value Reference Range Interpretation Comments POC-GLUCOSE METER 163 mg/dL 70-110 H TESTED AT [facility] [address] ([place]) (test code = [place] 1538) [address] POCT-GLUCOSE [id number] 08:34:00 Test Item Value Reference Range Interpretation Comments POC-GLUCOSE METER 141 mg/dL 70-110 H TESTED AT [facility] 6720 (BEAKER) (test code = [place] 1538) [address] BASIC METABOLIC [id number] 06:51:00 Test Item Value Reference Range Interpretation [...] PATIEN TS. CBC W/PLT COUNT & AUTO [id number] 06:35:00 Test Item Value Reference Range Interpretation [...] PERCENT (BEAKER) (test code = 2801) POCT-GLUCOSE [id number] 21:25:00 Test Item Value Reference Range Interpretation Comments POC-GLUCOSE METER 199 mg/dL 70-110 H TESTED AT [facility] 6720 (BEAKER) (test code = [place] 1538) [address] BLOOD [id number] 19:00:00 Test Item Value Reference Range Interpretation Comments CULTURE (BEAKER) (test No growth in 5 days code = 1095) BLOOD [id number] 19:00:00 Test Item Value Reference Range Interpretation Comments CULTURE (BEAKER) (test No growth in 5 days code = 1095) POCT-GLUCOSE [id number] 18:16:00 Test Item Value Reference Range Interpretation Comments POC-GLUCOSE METER 149 mg/dL 70-110 H TESTED AT [facility] 6720 (BEAKER) (test code = R[place] 1538) [address] OVA AND PARASITE [id number] 08:39:00 Test Item Value Reference Range Interpretation Comments CONCENTRATE SMEAR - No ova or parasites No ova or parasites O\\T\\P (BEAKER) (test seen seen code = 247) TRICHROME SMEAR - No ova or parasites No ova or parasites O\\T\\P (BEAKER) (test seen seen code = 248) POCT-GLUCOSE [id number] 07:38:00 Test Item Value Reference Range Interpretation Comments POC-GLUCOSE METER 169 mg/dL 70-110 H TESTED AT [facility] 67[address] (BEAKER) (test code = RODOLFO Pitts [facility] 1538) [address] BASIC METABOLIC [id number] 05:07:00 Test Item Value Reference Range Interpretation [...] PATIEN TS. CBC W/PLT COUNT & AUTO [id number] 04:51:00 Test Item Value Reference Range Interpretation [...] PERCENT (BEAKER) (test code = 2801) POCT-GLUCOSE [id number] 20:27:00 Test Item Value Reference Range Interpretation Comments POC-GLUCOSE METER 200 mg/dL 70-110 H TESTED AT [facility] 6720 (BEAKER) (test code = [facility] 1538) [address] POCT-GLUCOSE [id number] 17:20:00 Test Item Value Reference Range Interpretation Comments POC-GLUCOSE METER 242 mg/dL 70-110 H TESTED AT [facility] 67 (BEAKER) (test code = [facility] 1538) [address] POCT-GLUCOSE [id number] 13:03:00 Test Item Value Reference Range Interpretation Comments POC-GLUCOSE METER 146 mg/dL 70-110 H TESTED AT [place] [address] (BEAKER) (test code = [facility] 1538) [address] POCT-GLUCOSE [id number] 08:06:00 Test Item Value Reference Range Interpretation Comments POC-GLUCOSE METER 150 mg/dL 70-110 H TESTED AT [place] [address] (BEAKER) (test code = [facility] 1538) [address] [id number] 04:31:00 Test Item Value Reference Range Interpretation Comments PHOSPHORUS (BEAKER) (test code = 3.4 mg/dL 2.3-4.7 604) [id number] 04:31:00 Test Item Value Reference Range Interpretation Comments MAGNESIUM (BEAKER) (test code = 2.1 mg/dL 1.6-2.6 627) BASIC METABOLIC [id number] 04:31:00 Test Item Value Reference Range Interpretation [...] PATIEN TS. CBC W/PLT COUNT & AUTO [id number] 04:15:00 Test Item Value Reference Range Interpretation [...] 0-1 PERCENT (BEAKER) (test code = 2801) [id number] 15:17:00 Test Item Value Reference Range Interpretation Comments POTASSIUM (BEAKER) (test code = 4.5 meq/L 3.5-5.1 379) [id number] 15:17:00 Test Item Value Reference Range Interpretation Comments MAGNESIUM (BEAKER) (test code = 2.3 mg/dL 1.6-2.6 627) [id number] 15:17:00 Test Item Value Reference Range Interpretation Comments PHOSPHORUS (BEAKER) (test code = 2.5 mg/dL 2.3-4.7 604) HEMOGLOBIN AND [id number] 14:53:00 Test Item Value Reference Range Interpretation Comments HEMOGLOBIN (BEAKER) (test code = 14.4 GM/DL 11.2-15.7 410) HEMATOCRIT (BEAKER) (test code = 44.9 % 34.1-44.9 411) [id number] 09:39:00 Test Item Value Reference Range Interpretation Comments POTASSIUM (BEAKER) (test code = 3.7 meq/L 3.5-5.1 379) [id number] 09:39:00 Test Item Value Reference Range Interpretation Comments MAGNESIUM (BEAKER) (test code = 2.4 mg/dL 1.6-2.6 627) RAD, CHEST, 1 VIEW, NON [id number] 08:09:00Reason for exam:->pulm edemaShould this be performed [...] MDReport Verified Date/Time: 10/07/2018 08:09:09 Reading Location: [facility] Reading Room POCT-GLUCOSE [id number] 06:00:00 Test Item Value Reference Range Interpretation Comments POC-GLUCOSE METER 111 mg/dL 70-110 H TESTED AT [facility] 6720 (BEAKER) (test code = [place] 1538) [address] [id number] 05:22:00 Test Item Value Reference Range Interpretation Comments PHOSPHORUS (BEAKER) (test code = 2.9 mg/dL 2.3-4.7 604) [id number] 05:22:00 Test Item Value Reference Range Interpretation Comments MAGNESIUM (BEAKER) (test code = 2.4 mg/dL 1.6-2.6 627) BASIC METABOLIC [id number] 05:22:00 Test Item Value Reference Range Interpretation [...] PATIEN TS. CBC W/PLT COUNT & AUTO [id number] 05:03:00 Test Item Value Reference Range Interpretation [...] 0-1 PERCENT (BEAKER) (test code = 2801) [id number] 00:55:00 Test Item Value Reference Range Interpretation Comments POTASSIUM (BEAKER) (test code = 3.6 meq/L 3.5-5.1 379) [id number] 00:55:00 Test Item Value Reference Range Interpretation Comments MAGNESIUM (BEAKER) (test code = 2.0 mg/dL 1.6-2.6 627) POCT-GLUCOSE [id number] 00:32:00 Test Item Value Reference Range Interpretation Comments POC-GLUCOSE METER 125 mg/dL 70-110 H TESTED AT [facility] 6720 (BEAKER) (test code = [place] 1538) [address] POCT-GLUCOSE [id number] 20:19:00 Test Item Value Reference Range Interpretation Comments POC-GLUCOSE METER 209 mg/dL 70-110 H TESTED AT [facility] 67[address] (BEAKER) (test code = [place] 1538) [address] [id number] 16:56:00 Test Item Value Reference Range Interpretation Comments PHOSPHORUS (BEAKER) (test code = 1.2 mg/dL 2.3-4.7 LL 604) [id number] 16:52:00 Test Item Value Reference Range Interpretation Comments POTASSIUM (BEAKER) (test code = 3.6 meq/L 3.5-5.1 379) [id number] 16:52:00 Test Item Value Reference Range Interpretation Comments MAGNESIUM (BEAKER) (test code = 2.3 mg/dL 1.6-2.6 627) HEMOGLOBIN AND [id number] 16:35:00 Test Item Value Reference Range Interpretation Comments HEMOGLOBIN (BEAKER) (test code = 12.6 GM/DL 11.2-15.7 410) HEMATOCRIT (BEAKER) (test code = 37.7 % 34.1-44.9 411) C. DIFFICILE GDH [id number] 16:20:00 Test Item Value Reference Range Interpretation Comments CDT TOXIN (test code Negative Negative = 1480344971) CDT GDH ANTIGEN Positive Negative A C. difficile present but (test code = toxin not detec nava. 7520578507) Indicates colon ization with non-toxige vijay strain [...] of kit performance was done by the [facility] Microbiology Lab prior to clinical use.[id number] 12:30:00 Test Item Value Reference Range Interpretation Comments POTASSIUM (BEAKER) (test code = 3.4 meq/L 3.5-5.1 L 379) Check Serum Potassium level 2 hours after oral potassium replacement completed or 30 min after intravenous potassium replacement.POCT-GLUCOSE [id number] 12:11:00 Test Item Value Reference Range Interpretation Comments POC-GLUCOSE METER 183 mg/dL 70-110 H TESTED AT [facility] 67 ([facility]) (test code = [place] 1538) [address] RAD, CHEST, 1 VIEW, NON [id number] 08:17:00Reason for exam:->pulm edemaShould this be performed at the bedside?->YesFINAL REPORT Chest, one view History: Pulmonary edema Comparison: 10/05/2018 Fi ndings:Clear lungs. Normal size heart. No pleural effusion or pneumothorax. Impression:No acute findings in the chest Signed: Mehul Crowdereport Verified Date/Time: 10/06/2018 08:17:06 Reading Location: [address] Consult Reading Room POCT-GLUCOSE [id number] 05:51:00 Test Item Value Reference Range Interpretation Comments POC-GLUCOSE METER 129 mg/dL 70-110 H TESTED AT [facility] [address] ([address]) (test code = RODOLFO [place] [facility] 1538) [address] [id number] 05:17:00 Test Item Value Reference Range Interpretation Comments PHOSPHORUS (BEAKER) (test code = 1.3 mg/dL 2.3-4.7 LL 604) BASIC METABOLIC [id number] 05:14:00 Test Item Value Reference Range Interpretation [...] S NOT APPLICABLE FOR DIALYSIS PATIEN TS. [id number] 05:06:00 Test Item Value Reference Range Interpretation Comments MAGNESIUM (BEAKER) (test code = 2.2 mg/dL 1.6-2.6 627) CBC W/PLT COUNT & AUTO [id number] 04:37:00 Test Item Value Reference Range Interpretation [...] PERCENT (BEAKER) (test code = 2801) POCT-GLUCOSE [id number] 00:13:00 Test Item Value Reference Range Interpretation Comments POC-GLUCOSE METER 143 mg/dL 70-110 H TESTED AT [facility] 6720 ([facility]) (test code = [facility] 1538) [address] TROPONIN [id number] 20:52:00 Test Item Value Reference Range Interpretation Comments TROPONIN I ([facility]) (test code = 0.91 ng/mL 0.00-0.03 397) [...] 0.5-2.2 (test code = 2872) HEMOGLOBIN AND [id number] 20:08:00 Test Item Value Reference Range Interpretation Comments HEMOGLOBIN (BEAKER) (test code = 12.3 GM/DL 11.2-15.7 410) HEMATOCRIT (BEAKER) (test code = 37.4 % 34.1-44.9 411) HEMOGLOBIN AND [id number] 13:24:00 Test Item Value Reference Range Interpretation Comments HEMOGLOBIN (BEAKER) (test code = 11.8 GM/DL 11.2-15.7 410) HEMATOCRIT (BEAKER) (test code = 35.8 % 34.1-44.9 411) [id number] 12:51:00 Test Item Value Reference Range Interpretation Comments FERRITIN (BEAKER) (test code = 361) 155 ng/mL 5-275 POCT-GLUCOSE [id number] 12:20:00 Test Item Value Reference Range Interpretation Comments POC-GLUCOSE METER 154 mg/dL 70-110 H TESTED AT [facility] 6720 (BEAKER) (test code = [place] 1530) [address] IRON, TIBC, % SAT. (WITHOUT FERRITIN)2018-10-05 10:36:00 Test Item Value Reference Range Interpretation Comments IRON (BEAKER) (test code = 547) 41.0 ug/dL 40.0-160.0 TOTAL IRON BINDING CAPACITY 185 ug/dL 250-450 L (BEAKER) (test code = 769) IRON % SATURATION (2) (BEAKER) 22 % 20-55 (test code = 2590) HEMOGLOBIN [id number] 10:31:00 Test Item Value Reference Range Interpretation Comments HEMOGLOBIN A1C (BEAKER) (test code = 4.7 % 4.3-6.1 368) VITAMIN [id number] 09:05:00 Test Item Value Reference Range Interpretation Comments VITAMIN B12 (BEAKER) (test code = 885 pg/mL 213-816 H 774) POCT-GLUCOSE [id number] 07:16:00 Test Item Value Reference Range Interpretation Comments POC-GLUCOSE METER 152 mg/dL 70-110 H TESTED AT [facility] 6720 (BEAKER) (test code = [place] 1538) [address] RAD, CHEST, 1 VIEW, NON [id number] 06:56:00Reason for exam:->pulm edemaShould this be performed at the bedside?->YesFINAL REPORT RAD, CHEST, 1 VIEW, NON DEPT INDICATION: pulm edema COMPARISON: Prior day's exam FINDINGS: Portable frontal view of the chest. IMPRESSION: Lungs and pleura: Unchanged airspace and pleural opacities. No pneumothorax.Heart and mediastinum: Stable contours. Additional findings: None. Signed: Lisa Mcgovern Verified Date/Time: 10/05/2018 06:56:36 Reading Location: [address] Transitional Reading Room TROPONIN [id number] 06:09:00 Test Item Value Reference Range Interpretation [...] acute neurological disease, and persistent tachyarrhythmia.BASIC METABOLIC [id number] 05:51:00 Test Item Value Reference Range Interpretation [...] S NOT APPLICABLE FOR DIALYSIS PATIEN TS. [id number] 05:20:00 Test Item Value Reference Range Interpretation Comments PHOSPHORUS (BEAKER) (test code = 2.2 mg/dL 2.3-4.7 L 604) [id number] 05:20:00 Test Item Value Reference Range Interpretation Comments MAGNESIUM (BEAKER) (test code = 1.8 mg/dL 1.6-2.6 627) HEMOGLOBIN AND [id number] 05:01:00 Test Item Value Reference Range Interpretation Comments HEMOGLOBIN (BEAKER) (test code = 11.4 GM/DL 11.2-15.7 410) HEMATOCRIT (BEAKER) (test code = 34.4 % 34.1-44.9 411) CBC W/PLT COUNT & AUTO [id number] 04:58:00 Test Item Value Reference Range Interpretation [...] PERCENT (BEAKER) (test code = 2801) TROPONIN [id number] 01:17:00 Test Item Value Reference Range Interpretation [...] acute neurological disease, and persistent tachyarrhythmia.HEMOGLOBIN AND [id number] 00:52:00 Test Item Value Reference Range Interpretation Comments HEMOGLOBIN (BEAKER) (test code = 12.1 GM/DL 11.2-15.7 410) HEMATOCRIT (BEAKER) (test code = 36.4 % 34.1-44.9 411) POCT-GLUCOSE [id number] 00:34:00 Test Item Value Reference Range Interpretation Comments POC-GLUCOSE METER 164 mg/dL 70-110 H TESTED AT [facility] 6720 (BEAKER) (test code = [place] 1538) [address] TROPONIN [id number] 22:08:00 Test Item Value Reference Range Interpretation [...] failure, acidosis, acute neurological disease, and persistent tachyarrhythmia.[id number] 21:56:00 Test Item Value Reference Range Interpretation Comments PHOSPHORUS (BEAKER) (test code = 2.1 mg/dL 2.3-4.7 L 604) [id number] 21:56:00 Test Item Value Reference Range Interpretation Comments MAGNESIUM (BEAKER) (test code = 2.1 mg/dL 1.6-2.6 627) BASIC METABOLIC [id number] 21:56:00 Test Item Value Reference Range Interpretation [...] S NOT APPLICABLE FOR DIALYSIS PATIEN TS. [id number] 21:56:00 Test Item Value Reference Range Interpretation Comments PHOSPHORUS (BEAKER) (test code = 2.1 mg/dL 2.3-4.7 L 604) [id number] 21:56:00 Test Item Value Reference Range Interpretation Comments MAGNESIUM (BEAKER) (test code = 2.1 mg/dL 1.6-2.6 627) BASIC METABOLIC [id number] 21:56:00 Test Item Value Reference Range Interpretation [...] APPLICABLE FOR DIALYSIS PATIEN TS. BLOOD GAS, [id number] 21:46:00 Test Item Value Reference Range Interpretation [...] (test code = 1819) 100.0 % CALCIUM, [id number] 21:46:00 Test Item Value Reference Range Interpretation Comments CALCIUM IONIZED (BEAKER) (test 1.10 mmol/L 1.12-1.27 L code = 698) PH, BLOOD (BEAKER) (test code = 7.39 1810) URINALYSIS W/ REFLEX URINE [id number] 20:34:00 Test Item Value Reference Range Interpretation [...] (test code = 2795) TSH/FREE T4 IF [id number] 19:24:00 Test Item Value Reference Range Interpretation Comments THYROID STIMULATING HORMONE 0.79 uIU/mL 0.35-4.94 (BEAKER) (test code = 772) BASIC METABOLIC [id number] 18:15:00 Test Item Value Reference Range Interpretation [...] DIALYSIS PATIEN TS. LACTIC ACID, VENOUS, WHOLE [id number] 18:13:00 Test Item Value Reference Range Interpretation Comments LACTATE BLOOD VENOUS (2) (BEAKER) 1.0 mmol/L 0.5-2.2 (test code = 2872) [id number] 18:08:00 Test Item Value Reference Range Interpretation Comments AMMONIA (BEAKER) (test code = 348) 33 mol/L 18-72 HEMOGLOBIN AND [id number] 18:02:00 Test Item Value Reference Range Interpretation Comments HEMOGLOBIN (BEAKER) (test code = 12.2 GM/DL 11.2-15.7 410) HEMATOCRIT (BEAKER) (test code = 37.2 % 34.1-44.9 411) TROPONIN [id number] 17:28:00 Test Item Value Reference Range Interpretation [...] mmol/L 0.5-2.2 (test code = 2872) POCT-GLUCOSE [id number] 16:55:00 Test Item Value Reference Range Interpretation Comments POC-GLUCOSE METER 186 mg/dL 70-110 H TESTED AT [facility] 6720 (BEAKER) (test code = [place] 1538) [address] KETONE, [id number] 15:19:00 Test Item Value Reference Range Interpretation Comments KETONES, BLOOD (BEAKER) (test code 1.0 mmol/L <0.4 H = 1103) [id number] 15:19:00 Test Item Value Reference Range Interpretation Comments PHOSPHORUS (BEAKER) (test code = 604) < mg/dL 2.3-4.7 LL RAD, CHEST, 1 VIEW, NON [id number] 15:17:00Post-intubationReason for exam:- >SHOTNESS OF BREATH, R/O [...] HarrisMDReport Verified Date/Time: 10/04/2018 15:17:58 Reading Location: [address] Radiology Reading Room OSMOLALITY, [id number] 15:16:00 Test Item Value Reference Range Interpretation Comments OSMOLALITY, SERUM (BEAKER) (test 291 mOsm/kg 275-295 code = 615) LIPID [id number] 15:15:00 Test Item Value Reference Range Interpretation [...] 100-129 Borderline 130-159 High 160-189 Very High >=[id number] 15:15:00 Test Item Value Reference Range Interpretation Comments LIPASE (BEAKER) (test code = 749) 338 U/L 8-78 H [id number] 15:13:00 Test Item Value Reference Range Interpretation Comments MAGNESIUM (BEAKER) (test code = 1.3 mg/dL 1.6-2.6 L 627) LACTIC ACID, VENOUS, WHOLE [id number] 15:10:00 Test Item Value Reference Range Interpretation Comments LACTATE BLOOD VENOUS (2) (BEAKER) 1.2 mmol/L 0.5-2.2 (test code = 2872) CBC W/PLT COUNT & AUTO [id number] 15:06:00 Test Item Value Reference Range Interpretation [...] (BEAKER) (test code = 2801) OXYGEN SATURATION, [id number] 14:59:00 Test Item Value Reference Range Interpretation Comments O2 SATURATION (MEASURED) (BEAKER) 69.6 % (test code = 1455) FEMORAL LINEBLOOD GAS, [id number] 14:51:00 Test Item Value Reference Range Interpretation [...] (test code = 1819) 30.0 % TROPONIN [id number] 13:55:00 Test Item Value Reference Range Interpretation [...] (BEAKER) (test code = 700) COMPREHENSIVE METABOLIC [id number] 13:45:00 Test Item Value Reference Range Interpretation [...] 347) EGFR (BEAKER) (test 64 mL/min/1.73 ESTIMA NAVA GFR IS code = 1092) sq m NOT ACCURATE CREATININE CLEARANCE IN PREDICTING GLOMERULAR FILTRATION RATE . ESTIMATED GFR I S NOT APPLICABLE FOR DIALYSIS PATIEN TS. LACTIC ACID, VENOUS, WHOLE [id number] 13:41:00 Test Item Value Reference Range Interpretation Comments LACTATE BLOOD VENOUS (2) (BEAKER) 1.3 mmol/L 0.5-2.2 (test code = 2872) [id number] 13:39:00 Test Item Value Reference Range Interpretation Comments PARTIAL THROMBOPLASTIN TIME 30.3 seconds 22.5-36.0 (BEAKER) (test code = 760) [id number] 13:39:00 Test Item Value Reference Range Interpretation Comments FIBRINOGEN LEVEL (BEAKER) (test 284 mg/dl 225-434 code = 658) PROTHROMBIN TIME/[id number] 13:38:00 Test Item Value Reference Range Interpretation Comments PROTIME (BEAKER) (test code = 13.4 seconds 11.7-14.7 759) INR (BEAKER) (test code = 370) 1.0 <=5.9 RECOMMENDED COUMADIN/WARFARIN INR THERAPY RANGESSTANDARD DOSE: 2.0 - 3.0 Includes: PROPHYLAXIS forvenous thrombosis, systemic embolization; TREATMENT for venous thrombosis and/or pulmonary embolus.HIGH RISK: Target INR is 2.5-3.5 for patients with mechanical heart valves.POCT-GLUCOSE [id number] 18:40:00 Test Item Value Reference Range Interpretation Comments POC-GLUCOSE METER 148 mg/dL 70-110 H TESTED AT [facility] 6720 [facility] (test code = [place] 1538) [address] POCT-GLUCOSE [id number] 07:43:00 Test Item Value Reference Range Interpretation Comments POC-GLUCOSE METER 112 mg/dL 70-110 H TESTED AT [facility] 6720 [facility] (test code = [place] 1538) [address] [id number] 07:13:00 Test Item Value Reference Range Interpretation Comments MAGNESIUM (BEAKER) (test code = 1.4 mg/dL 1.6-2.6 L 627) BASIC METABOLIC [id number] 07:13:00 Test Item Value Reference Range Interpretation [...] NOT APPLICABLE FOR DIALYSIS PATIEN TS. POCT-GLUCOSE [id number] 22:09:00 Test Item Value Reference Range Interpretation Comments POC-GLUCOSE METER 161 mg/dL 70-110 H TESTED AT [facility] 67[address] ([facility]) ([facility] = [facility] 1538) [address] POCT-GLUCOSE [id number] 17:46:00 Test Item Value Reference Range Interpretation Comments POC-GLUCOSE METER 148 mg/dL 70-110 H TESTED AT [facility] 6720 ([facility]) (test code = [facility] 1538) [address] POCT-GLUCOSE [id number] 12:00:00 Test Item Value Reference Range Interpretation Comments POC-GLUCOSE METER 137 mg/dL 70-110 H TESTED AT [facility] 6720 ([facility] (test code = [facility] Giss[place] [facility] 1538) [address] POCT-GLUCOSE [id number] 07:55:00 Test Item Value Reference Range Interpretation Comments POC-GLUCOSE METER 141 mg/dL 70-110 H TESTED AT [facility] 67[address] ([facility]) (test code = [place] [facility] 1538) [address] [id number] 05:30:00 Test Item Value Reference Range Interpretation Comments MAGNESIUM (BEAKER) (test code = 1.4 mg/dL 1.6-2.6 L 627) BASIC METABOLIC [id number] 05:30:00 Test Item Value Reference Range Interpretation [...] APPLICABLE FOR DIALYSIS PATIEN TS. HEMOGLOBIN AND [id number] 05:07:00 Test Item Value Reference Range Interpretation Comments HEMOGLOBIN (BEAKER) (test code = 8.8 GM/DL 11.2-15.7 L 410) HEMATOCRIT (BEAKER) (test code = 28.4 % 34.1-44.9 L 411) BLOOD [id number] 00:00:00 Test Item Value Reference Range Interpretation Comments CULTURE (BEAKER) (test No growth in 5 days code = 1095) BLOOD [id number] 00:00:00 Test Item Value Reference Range Interpretation Comments CULTURE (BEAKER) (test No growth in 5 days code = 1095) POCT-GLUCOSE [id number] 22:59:00 Test Item Value Reference Range Interpretation Comments POC-GLUCOSE METER 141 mg/dL 70-110 H TESTED AT [facility] 6720 (BEAKER) (test code = [place] 1538) [address] HEMOGLOBIN AND [id number] 16:50:00 Test Item Value Reference Range Interpretation Comments HEMOGLOBIN (BEAKER) (test code = 9.6 GM/DL 11.2-15.7 L 410) HEMATOCRIT (BEAKER) (test code = 30.8 % 34.1-44.9 L 411) POCT-GLUCOSE [id number] 13:15:00 Test Item Value Reference Range Interpretation Comments POC-GLUCOSE METER 144 mg/dL 70-110 H TESTED AT [facility] 6720 (BEAKER) (test code = [place] 1538) [address] POCT-GLUCOSE [id number] 08:27:00 Test Item Value Reference Range Interpretation Comments POC-GLUCOSE METER 125 mg/dL 70-110 H TESTED AT [facility] 6720 (BEAKER) (test code = [facility] [place] 1538) [address] [id number] 07:54:00 Test Item Value Reference Range Interpretation Comments MAGNESIUM (BEAKER) (test code = 1.0 mg/dL 1.6-2.6 LL 627) BASIC METABOLIC [id number] 07:25:00 Test Item Value Reference Range Interpretation [...] APPLICABLE FOR DIALYSIS PATIEN TS. HEMOGLOBIN AND [id number] 07:15:00 Test Item Value Reference Range Interpretation Comments HEMOGLOBIN (BEAKER) (test code = 8.5 GM/DL 11.2-15.7 L 410) HEMATOCRIT (BEAKER) (test code = 27.0 % 34.1-44.9 L 411) CBC W/PLT COUNT & AUTO [id number] 07:15:00 Test Item Value Reference Range Interpretation [...] IMMATURE GRANULOCYTES-RELATIVE 2 % 0-1 H PERCENT ([facility]) (test code = 2801) POCT-GLUCOSE [id number] 00:54:00 Test Item Value Reference Range Interpretation Comments POC-GLUCOSE METER 165 mg/dL 70-110 H TESTED AT [place] [address] ([facility]) (test code = [facility] 1538) [address] POCT-GLUCOSE [id number] 18:13:00 Test Item Value Reference Range Interpretation Comments POC-GLUCOSE METER 255 mg/dL 70-110 H TESTED AT [place] [address] ([facility]) (test code = [facility] 1538) [address] HEMOGLOBIN AND [id number] 17:10:00 Test Item Value Reference Range Interpretation Comments HEMOGLOBIN (BEAKER) (test code = 9.0 GM/DL 11.2-15.7 L 410) HEMATOCRIT (BEAKER) (test code = 28.1 % 34.1-44.9 L 411) POCT-GLUCOSE [id number] 11:29:00 Test Item Value Reference Range Interpretation Comments POC-GLUCOSE METER 204 mg/dL 70-110 H TESTED AT [place] [address] ([facility]) (test code = [facility] 1538) [address] CBC W/PLT COUNT & AUTO [id number] 10:04:00 Test Item Value Reference Range Interpretation [...] PERCENT (BEAKER) (test code = 2801) POCT-GLUCOSE [id number] 08:20:00 Test Item Value Reference Range Interpretation Comments POC-GLUCOSE METER 128 mg/dL 70-110 H TESTED AT [facility] 6720 (BEAKER) (test code = [place] 1538) [address] [id number] 05:08:00 Test Item Value Reference Range Interpretation Comments MAGNESIUM (BEAKER) 1.3 mg/dL 1.6-2.6 L Specimen slightly (test code = 627) hemolyzed [id number] 05:08:00 Test Item Value Reference Range Interpretation Comments PHOSPHORUS (BEAKER) 2.6 mg/dL 2.3-4.7 Specimen slightly (test code = 604) hemolyzed BASIC METABOLIC [id number] 05:08:00 Test Item Value Reference Range Interpretation [...] APPLICABLE FOR DIALYSIS PATIEN TS. HEMOGLOBIN AND [id number] 04:46:00 Test Item Value Reference Range Interpretation Comments HEMOGLOBIN (BEAKER) (test code = 8.7 GM/DL 11.2-15.7 L 410) HEMATOCRIT (BEAKER) (test code = 27.8 % 34.1-44.9 L 411) POCT-GLUCOSE [id number] 00:51:00 Test Item Value Reference Range Interpretation Comments POC-GLUCOSE METER 142 mg/dL 70-110 H TESTED AT [facility] 6720 (BEAKER) (test code = [place] 9898) [address] HEMOGLOBIN AND [id number] 20:58:00 Test Item Value Reference Range Interpretation Comments HEMOGLOBIN (BEAKER) (test code = 9.6 GM/DL 11.2-15.7 L 410) HEMATOCRIT (BEAKER) (test code = 29.6 % 34.1-44.9 L 411) POCT-GLUCOSE [id number] 18:36:00 Test Item Value Reference Range Interpretation Comments POC-GLUCOSE METER 228 mg/dL 70-110 H TESTED AT [place] [address] (BEAKER) (test code = [place] 1538) [address] SPUTUM CULTURE + GRAM [id number] 15:57:00 Test Item Value Reference Range Interpretation Comments CULTURE (BEAKER) 2+ Normal respiratory (test code = 1095) cosme present GRAM STAIN RESULT 4+ WBCs (BEAKER) (test code = 1123) GRAM STAIN RESULT No epithelial cells (BEAKER) (test code = 41879) GRAM STAIN RESULT 1+ yeast (BEAKER) (test code = 30151) HEMOGLOBIN AND [id number] 12:05:00 Test Item Value Reference Range Interpretation Comments HEMOGLOBIN (BEAKER) (test code = 8.5 GM/DL 11.2-15.7 L 410) HEMATOCRIT (BEAKER) (test code = 25.9 % 34.1-44.9 L 411) POCT-GLUCOSE [id number] 11:40:00 Test Item Value Reference Range Interpretation Comments POC-GLUCOSE METER 180 mg/dL 70-110 H TESTED AT [place] [address] (BEAKER) (test code = R[place] [facility] 1538) [address] POCT-GLUCOSE [id number] 06:14:00 Test Item Value Reference Range Interpretation Comments POC-GLUCOSE METER 143 mg/dL 70-110 H TESTED AT [place] [address] (BEAKER) (test code = [place] 1538) [address] BASIC METABOLIC [id number] 05:05:00 Test Item Value Reference Range Interpretation [...] APPLICABLE FOR DIALYSIS PATIEN TS. VANCOMYCIN LEVEL, [id number] 05:04:00 Test Item Value Reference Range Interpretation Comments VANCOMYCIN RANDOM (BEAKER) (test 23.1 ug/mL code = 523) Reference Range: No [id number] 05:02:00 Test Item Value Reference Range Interpretation Comments PHOSPHORUS (BEAKER) (test code = 3.9 mg/dL 2.3-4.7 604) [id number] 05:02:00 Test Item Value Reference Range Interpretation Comments MAGNESIUM (BEAKER) (test code = 1.4 mg/dL 1.6-2.6 L 627) HEMOGLOBIN AND [id number] 04:36:00 Test Item Value Reference Range Interpretation Comments HEMOGLOBIN (BEAKER) (test code = 7.5 GM/DL 11.2-15.7 L 410) HEMATOCRIT (BEAKER) (test code = 22.8 % 34.1-44.9 L 411) POCT-GLUCOSE [id number] 00:02:00 Test Item Value Reference Range Interpretation Comments POC-GLUCOSE METER 180 mg/dL 70-110 H TESTED AT [place] [address] (BEAKER) (test code = [facility] 1538) [address] HEMOGLOBIN AND [id number] 20:48:00 Test Item Value Reference Range Interpretation Comments HEMOGLOBIN (BEAKER) (test code = 8.3 GM/DL 11.2-15.7 L 410) HEMATOCRIT (BEAKER) (test code = 25.0 % 34.1-44.9 L 411) POCT-GLUCOSE [id number] 18:14:00 Test Item Value Reference Range Interpretation Comments POC-GLUCOSE METER 131 mg/dL 70-110 H TESTED AT [place] [address] (BEAKER) (test code = [facility] 1538) [address] VANCOMYCIN LEVEL, [id number] 16:48:00 Test Item Value Reference Range Interpretation Comments VANCOMYCIN RANDOM (BEAKER) (test 28.3 ug/mL code = 523) Reference Range: No NormalsPOCT-GLUCOSE [id number] 12:43:00 Test Item Value Reference Range Interpretation Comments POC-GLUCOSE METER 157 mg/dL 70-110 H TESTED AT [facility] 6720 (BEAKER) (test code = [place] 1538) [address] HEMOGLOBIN AND [id number] 12:20:00 Test Item Value Reference Range Interpretation Comments HEMOGLOBIN (BEAKER) (test code = 8.3 GM/DL 11.2-15.7 L 410) HEMATOCRIT (BEAKER) (test code = 25.4 % 34.1-44.9 L 411) BASIC METABOLIC [id number] 05:37:00 Test Item Value Reference Range Interpretation [...] PATIEN TS. CBC W/PLT COUNT & AUTO [id number] 04:41:00 Test Item Value Reference Range Interpretation [...] 0-1 H PERCENT (BEAKER) (test code = 2808) POCT-GLUCOSE [id number] 00:06:00 Test Item Value Reference Range Interpretation Comments POC-GLUCOSE METER 174 mg/dL 70-110 H TESTED AT [facility] 6720 (BEAKER) (test code = [place] 1538) [address] POCT-GLUCOSE [id number] 17:26:00 Test Item Value Reference Range Interpretation Comments POC-GLUCOSE METER 179 mg/dL 70-110 H TESTED AT [facility] 6720 ([facility]) (test code = [place] 1538) [address] CT, [id number] 17:19:00FINAL REPORT CLINICAL HISTORY: Recent pancreatitis, shock [...] CT evidence of steatosis. Signed: Gordon Clemens Verified Date/Time: 05/05/2018 17:19:54 Reading Location: [address] Reading Room TROPONIN I 2018-05-05 16:31:00 [...] acidosis, acute neurological disease, and persistent tachyarrhythmia.POCT-GLUCOSE [id number] 12:29:00 Test Item Value Reference Range Interpretation Comments POC-GLUCOSE METER 139 mg/dL 70-110 H TESTED AT [facility] 6720 (BEAKER) (test code = [place] 1538) [address] URINALYSIS W/ REFLEX URINE [id number] 09:51:00 Test Item Value Reference Range Interpretation [...] SOURCE(BEAKER) (test code = 2795) SODIUM, RANDOM [id number] 09:46:00 Test Item Value Reference Range Interpretation Comments SODIUM URINE (BEAKER) (test code = 23 meq/L 243) Reference Range: No NormalsCREATININE, RANDOM [id number] 09:32:00 Test Item Value Reference Range Interpretation Comments CREATININE URINE (BEAKER) (test 67.0 mg/dL code = 375) Reference Range: No NormalsUREA NITROGEN, RANDOM [id number] 09:32:00 Test Item Value Reference Range Interpretation Comments UREA NITROGEN URINE (BEAKER) (test 170 mg/dL code = 538) Reference Range: No NormalsLACTIC ACID, ARTERIAL, WHOLE [id number] 09:16:00 Test Item Value Reference Range Interpretation Comments LACTATE BLOOD ARTERIAL (2) 0.8 mmol/L 0.5-2.2 (BEAKER) (test code = 2874) Effective 12/15/2015: Units/Reference Range ChangeNew: 0.5-2.2 mmol/L Previous: 5-20 mg/dLHEMATOCRIT-STAT [id number] 09:02:00 Test Item Value Reference Range Interpretation Comments HEMATOCRIT (BEAKER) (test code = 411) 23.0 % 36.0-45.0 L BLOOD GAS, [id number] 09:02:00 Test Item Value Reference Range Interpretation [...] (test code = 1819) 30.0 % HEMOGLOBIN-STAT [id number] 09:01:00 Test Item Value Reference Range Interpretation Comments HEMOGLOBIN (BEAKER) (test code = 7.7 g/dL 12.0-15.0 L 410) TROPONIN [id number] 08:24:00 Test Item Value Reference Range Interpretation [...] acute neurological disease, and persistent tachyarrhythmia.BASIC METABOLIC [id number] 08:22:00 Test Item Value Reference Range Interpretation [...] APPLICABLE FOR DIALYSIS PATIEN TS. BLOOD GAS, [id number] 07:56:00 Test Item Value Reference Range Interpretation [...] code = 1819) 30.0 % VANCOMYCIN LEVEL, [id number] 05:44:00 Test Item Value Reference Range Interpretation Comments VANCOMYCIN RANDOM (BEAKER) (test 16.7 ug/mL code = 523) Reference Range: No NormalsLACTIC ACID, VENOUS, WHOLE [id number] 05:22:00 Test Item Value Reference Range Interpretation Comments LACTATE BLOOD VENOUS (2) (BEAKER) 0.7 mmol/L 0.5-2.2 (test code = 2872) Effective 12/15/2015: Units/Reference Range ChangeNew: 0.5-2.2 mmol/L Previous: 5-20 mg/dLBLOOD GAS, [id number] 05:03:00 Test Item Value Reference Range Interpretation [...] (test code = 1819) 30.0 % TROPONIN [id number] 05:00:00 Test Item Value Reference Range Interpretation [...] failure, acidosis, acute neurological disease, and persistent tachyarrhythmia.[id number] 04:54:00 Test Item Value Reference Range Interpretation Comments LIPASE (BEAKER) (test code = 749) 47 U/L 8-78 HEPATIC FUNCTION [id number] 04:54:00 Test Item Value Reference Range Interpretation [...] 6-55 347) RAD, CHEST, 1 VIEW, NON [id number] 04:49:00Reason for exam:- >IntubationShould this be performed [...] IJ CVC remains in place. Signed: Gordon Clemenseport Verified Date/Time: 05/05/2018 04:49:25 Reading Location: [address] Reading Room [id number] 04:47:00 Test Item Value Reference Range Interpretation Comments PROCALCITONIN (BEAKER) (test code 2.43 ng/mL <0.05 H = 3036) SEPSIS RISK (ng/mL)Low: 0.05-0.50Intermediate: 0.51-2.00High: >=2.01RAD, ABDOMEN/KUB, 1 VIEW [id number] 04:47:00Reason for exam:->OG placement Should this be [...] MDReport Verified Date/Time: 05/05/2018 04:47:09 Reading Location: [address] Reading Room BLOOD GAS, [id number] 03:34:00 Test Item Value Reference Range Interpretation [...] 40.0 % CBC W/PLT COUNT & AUTO [id number] 03:25:00 Test Item Value Reference Range Interpretation [...] code = 2801) LACTIC ACID, VENOUS, WHOLE [id number] 02:41:00 Test Item Value Reference Range Interpretation Comments LACTATE BLOOD VENOUS (2) (BEAKER) 0.5 mmol/L 0.5-2.2 (test code = 2872) Effective 12/15/2015: Units/Reference Range ChangeNew: 0.5-2.2 mmol/L Previous: 5-20 mg/dLBLOOD GAS, [id number] 02:10:00 Test Item Value Reference Range Interpretation [...] code = 1819) 28.0 % BASIC METABOLIC [id number] 01:46:00 Test Item Value Reference Range Interpretation [...] pg/mL 0-100 H (test code = 700) [id number] 01:31:00 Test Item Value Reference Range Interpretation Comments MAGNESIUM (BEAKER) (test code = 1.8 mg/dL 1.6-2.6 627) LACTIC ACID, VENOUS, WHOLE [id number] 01:29:00 Test Item Value Reference Range Interpretation Comments LACTATE BLOOD VENOUS (2) (BEAKER) 0.7 mmol/L 0.5-2.2 (test code = 2872) Effective 12/15/2015: Units/Reference Range ChangeNew: 0.5-2.2 mmol/L Previous: 5-20 mg/dLCBC W/PLT COUNT & AUTO [id number] 01:14:00 Test Item Value Reference Range Interpretation [...] PERCENT (BEAKER) (test code = 2801) POCT-GLUCOSE [id number] 01:01:00 Test Item Value Reference Range Interpretation Comments POC-GLUCOSE METER 138 mg/dL 70-110 H TESTED AT [facility] 6720 (BEAKER) (test code = RODOLFO Pitts [facility] 1538) [address] RAD, CHEST, 1 VIEW, NON [id number] 00:17:00Reason for exam:->concern for respiratory distressShould this [...] MDReport Verified Date/Time: 05/05/2018 00:17:28 Reading Location: [address] Reading Room POCT-LACTIC ACID, [id number] 23:56:00 Test Item Value Reference Range Interpretation Comments POC-LACTIC ACID, 0.9 mmol/L 0.4-1.3 TESTED AT [facility] 6720 ARTERIAL (BEAKER) RADHA DARCIE [place] (test code = 2804) [address] POCT-BLOOD GASES, [id number] 23:56:00 Test Item Value Reference Range Interpretation Comments TEMP, CELSIUS-POC 36.1 (BEAKER) (test code = 1834) FIO2-POC (BEAKER) 32 TESTED AT [place] [address] (test code = 1835) [facility] [address] PH, ARTERIAL-POC 7.192 7.350-7.450 LL (BEAKER) (test [...] L ARTERIAL-POC (BEAKER) (test code = 1841) [id number] 23:56:00 Test Item Value Reference Range Interpretation Comments POC-SODIUM (BEAKER) 127 meq/L 135-148 L TESTED A T [place] [address] (test code = 1542) [facility] [address] [id number] 23:56:00 Test Item Value Reference Range Interpretation Comments POC-POTASSIUM 4.8 meq/L 3.6-5.5 TESTED AT [place] [address] (BEAKER) (test code [facility] [address] = 1540) [id number] 23:56:00 Test Item Value Reference Range Interpretation Comments POC-GLUCOSE (BEAKER) 116 mg/dL 70-110 H TESTED AT [place] [address] (test code = 1855) [facility] [address] POCT-CALCIUM [id number] 23:56:00 Test Item Value Reference Range Interpretation Comments POC-CALCIUM IONIZED 1.20 mmol/L 1.12-1.27 TESTED A T [place] [address] ([facility]) (test code = RODOLFO Pitts [facility] 1536) [address] [id number] 23:56:00 Test Item Value Reference Range Interpretation Comments POC-HEMATOCRIT 25 % 36-45 L TESTED AT [place] [address] ([facility]) (test code = [facility] [address] 1857) [id number] 23:56:00 Test Item Value Reference Range Interpretation Comments POC-HEMOGLOBIN 8.5 g/dL 12.0-15.0 L TESTED AT [place] [address] ([facility]) (test code = [facility] Gisselle [facility] 1856) [address]TCZQUJ AT [place] [address] RADHA [facility] [address] POCT-GLUCOSE [id number] 21:48:00 Test Item Value Reference Range Interpretation Comments POC-GLUCOSE METER 136 mg/dL 70-110 H TESTED AT [place] [address] ([facility]) (test code = [facility] 1538) [address] POCT-GLUCOSE [id number] 19:03:00 Test Item Value Reference Range Interpretation Comments POC-GLUCOSE METER 131 mg/dL 70-110 H TESTED AT [place] [address] ([facility]) (test code = [facility] 1538) [address] POCT-BLOOD GASES, [id number] 16:54:00 Test Item Value Reference Range Interpretation Comments TEMP, CELSIUS-POC 37.0 ([facility]) (test code = 1834) FIO2-POC (AKER) TESTED AT [place] [address] (test code = 1835) RADHA Black [facility] [address] PH, VENOUS-POC 7.224 7.320-7.420 L ([facility]) (test code = 1842) PCO2, VENOUS-POC 63.8 mm Hg 41.0-51.0 H ([facility]) (test code = 1843) PO2, VENOUS-POC 31.0 mm Hg 25.0-40.0 ([facility]) (test code = 1844) SO2, VENOUS-POC 46.0 % 40.0-70.0 ([facility]) (test code = 1845) HCO3, VENOUS-POC 26.3 meq/L 21.0-29.0 ([facility]) (test code = 1846) BASE EXCESS, -1.0 meq/L -2.0-3.0 VENOUS-POC ([facility]) (test code = 1847) [id number] 16:54:00 Test Item Value Reference Range Interpretation Comments POC-SODIUM ([facility]) 129 meq/L 135-148 L TESTED [place] [address] (test code = 1542) [facility] [address] [id number] 16:54:00 Test Item Value Reference Range Interpretation Comments POC-POTASSIUM 4.7 meq/L 3.6-5.5 TESTED AT [place] [address] ([facility]) (test code [place] [id number] = 1540) [id number] 16:54:00 Test Item Value Reference Range Interpretation Comments POC-GLUCOSE ([facility]) 116 mg/dL 70-110 H TESTED AT [place] [address] (test code = 1855) [facility] [address] POCT-CALCIUM [id number] 16:54:00 Test Item Value Reference Range Interpretation Comments POC-CALCIUM IONIZED 1.19 mmol/L 1.12-1.27 TESTED [place] [address] ([facility]) (test code = [facility] 1531) [address] [id number] 16:54:00 Test Item Value Reference Range Interpretation Comments POC-HEMATOCRIT 25 % 36-45 L TESTED AT [place] [address] ([facility]) (test code = [facility] [address] 3485) [id number] 16:54:00 Test Item Value Reference Range Interpretation Comments POC-HEMOGLOBIN 8.5 g/dL 12.0-15.0 L TESTED AT [place] [address] ([facility]) (test code = [facility] 6586) [id number] AT [place] [address] [facility] [place] [address] POCT-GLUCOSE [id number] 13:26:00 Test Item Value Reference Range Interpretation Comments POC-GLUCOSE METER 124 mg/dL 70-110 H TESTED AT [place] [address] (BEAKER) (test code = RODOLFO [place] 1538) [address] POCT-LACTIC ACID, [id number] 12:57:00 Test Item Value Reference Range Interpretation Comments POC-LACTIC ACID, 1.1 mmol/L 0.9-1.7 TESTED AT [facility] 6720 VENOUS (BEAKER) (test RODOLFO Z[place]AYA [place] code = 2805) [address] COMPREHENSIVE METABOLIC [id number] 09:56:00 Test Item Value Reference Range Interpretation [...] S NOT APPLICABLE FOR DIALYSIS PATIEN TS. [id number] 09:48:00 Test Item Value Reference Range Interpretation Comments PHOSPHORUS (BEAKER) (test code = 5.0 mg/dL 2.3-4.7 H 604) [id number] 09:48:00 Test Item Value Reference Range Interpretation Comments MAGNESIUM (BEAKER) (test code = 1.9 mg/dL 1.6-2.6 627) POCT-GLUCOSE [id number] 09:23:00 Test Item Value Reference Range Interpretation Comments POC-GLUCOSE METER 148 mg/dL 70-110 H TESTED AT [facility] 6720 (BEAKER) (test code = [place] 1538) [address] CBC (HEMOGRAM ONLY)2018-05-04 07:04:00 Test Item Value [...] 0-0 (BEAKER) (test code = 413) PROTHROMBIN [id number] 06:20:00 Test Item Value Reference Range Interpretation Comments PROTIME (BEAKER) (test code = 14.0 seconds 11.7-14.7 759) INR (BEAKER) (test code = 370) 1.1 <=5.9 RECOMMENDED COUMADIN/WARFARIN INR THERAPY RANGESSTANDARD DOSE: 2.0 - 3.0 Includes: PROPHYLAXIS forvenous thrombosis, systemic embolization; TREATMENT for venous thrombosis and/or pulmonary embolus.HIGH RISK: Target INR is 2.5-3.5 for patients with mechanical heart valves.[id number] 06:20:00 Test Item Value Reference Range Interpretation Comments PARTIAL THROMBOPLASTIN TIME 38.0 seconds 22.5-36.0 H ([facility]) (test code = 760) POCT-GLUCOSE [id number] 21:01:00 Test Item Value Reference Range Interpretation Comments POC-GLUCOSE METER 113 mg/dL 70-110 H TESTED AT [place] [address] ([facility]) (test code = [facility] 1538) [address] POCT-GLUCOSE [id number] 17:33:00 Test Item Value Reference Range Interpretation Comments POC-GLUCOSE METER 123 mg/dL 70-110 H TESTED AT [place] [address] ([facility]) (test code = [facility] 1538) [address] POCT-GLUCOSE [id number] 12:19:00 Test Item Value Reference Range Interpretation Comments POC-GLUCOSE METER 127 mg/dL 70-110 H TESTED AT [place] [address] ([facility]) (test code = [facility] 1538) [address] POCT-GLUCOSE [id number] 08:08:00 Test Item Value Reference Range Interpretation Comments POC-GLUCOSE METER 129 mg/dL 70-110 H TESTED AT [place] [address] ([facility]) (test code = [facility] 1538) [address] BLOOD GAS, [id number] 07:23:00 Test Item Value Reference Range Interpretation [...] code = 1819) 20.0 % COMPREHENSIVE METABOLIC [id number] 07:11:00 Test Item Value Reference Range Interpretation [...] S NOT APPLICABLE FOR DIALYSIS PATIEN TS. [id number] 07:09:00 Test Item Value Reference Range Interpretation Comments PHOSPHORUS (BEAKER) (test code = 3.6 mg/dL 2.3-4.7 604) [id number] 07:09:00 Test Item Value Reference Range Interpretation Comments MAGNESIUM (BEAKER) (test code = 1.8 mg/dL 1.6-2.6 627) [id number] 06:34:00 Test Item Value Reference Range Interpretation [...] 0-0 (BEAKER) (test code = 413) PROTHROMBIN [id number] 06:33:00 Test Item Value Reference Range Interpretation Comments PROTIME (BEAKER) (test code = 14.5 seconds 11.7-14.7 759) INR (BEAKER) (test code = 370) 1.1 <=5.9 RECOMMENDED COUMADIN/WARFARIN INR THERAPY RANGESSTANDARD DOSE: 2.0 - 3.0 Includes: PROPHYLAXIS forvenous thrombosis, systemic embolization; TREATMENT for venous thrombosis and/or pulmonary embolus.HIGH RISK: Target INR is 2.5-3.5 for patients with mechanical heart valves.LACTIC ACID, VENOUS, WHOLE [id number] 06:32:00 Test Item Value Reference Range Interpretation Comments LACTATE BLOOD VENOUS (2) (BEAKER) 1.0 mmol/L 0.5-2.2 (test code = 2872) Effective 12/15/2015: Units/Reference Range ChangeNew: 0.5-2.2 mmol/L Previous: 5-20 mg/dLPOCT-GLUCOSE [id number] 21:06:00 Test Item Value Reference Range Interpretation Comments POC-GLUCOSE METER 168 mg/dL 70-110 H TESTED AT [place] [address] ([facility]) (test code = [facility] 1538) [address] POCT-GLUCOSE [id number] 19:02:00 Test Item Value Reference Range Interpretation Comments POC-GLUCOSE METER 122 mg/dL 70-110 H TESTED AT [place] [address] ([facility]) (test code = [facility] 1538) [address] [id number] 18:09:00 Test Item Value Reference Range Interpretation Comments PHOSPHORUS (BEAKER) (test code = 2.7 mg/dL 2.3-4.7 604) [id number] 18:09:00 Test Item Value Reference Range Interpretation Comments MAGNESIUM (BEAKER) (test code = 1.9 mg/dL 1.6-2.6 627) [id number] 18:09:00 Test Item Value Reference Range Interpretation Comments CALCIUM (BEAKER) (test code = 697) 8.7 mg/dL 8.4-10.2 POCT-GLUCOSE [id number] 13:13:00 Test Item Value Reference Range Interpretation Comments POC-GLUCOSE METER 162 mg/dL 70-110 H TESTED AT [place] [address] ([facility]) (test code = [facility] 1538) [address] RAD, CHEST, 1 VIEW, NON [id number] 12:12:00Reason for exam:->Pulmobnary edema?Should this be performed [...] Crowe Verified Date/Time: 05/02/2018 12:12:11 [facility] POCT-GLUCOSE [id number] 08:27:00 Test Item Value Reference Range Interpretation Comments POC-GLUCOSE METER 128 mg/dL 70-110 H TESTED AT [facility] 6720 (BEAKER) (test code = [place] 1538) [address] COMPREHENSIVE METABOLIC [id number] 07:40:00 Test Item Value Reference Range Interpretation [...] S NOT APPLICABLE FOR DIALYSIS PATIEN TS. [id number] 07:34:00 Test Item Value Reference Range Interpretation Comments PHOSPHORUS (BEAKER) (test code = 2.7 mg/dL 2.3-4.7 604) [id number] 07:34:00 Test Item Value Reference Range Interpretation Comments MAGNESIUM (BEAKER) (test code = 1.9 mg/dL 1.6-2.6 627) LACTIC ACID, VENOUS, WHOLE [id number] 06:59:00 Test Item Value Reference Range Interpretation [...] WBC 0-0 (BEAKER) (test code = 413) [id number] 06:34:00 Test Item Value Reference Range Interpretation Comments PARTIAL THROMBOPLASTIN TIME 38.8 seconds 22.5-36.0 H (BEAKER) (test code = 760) PROTHROMBIN [id number] 06:33:00 Test Item Value Reference Range Interpretation Comments PROTIME (BEAKER) (test code = 14.8 seconds 11.7-14.7 H 759) INR (BEAKER) (test code = 370) 1.2 <=5.9 RECOMMENDED COUMADIN/WARFARIN INR THERAPY RANGESSTANDARD DOSE: 2.0 - 3.0 Includes: PROPHYLAXIS forvenous thrombosis, systemic embolization; TREATMENT for venous thrombosis and/or pulmonary embolus.HIGH RISK: Target INR is 2.5-3.5 for patients with mechanical heart valves.BLOOD GAS, [id number] 06:29:00 Test Item Value Reference Range Interpretation [...] (test code = 1819) 20 % BLOOD [id number] 06:00:00 Test Item Value Reference Range Interpretation Comments CULTURE (BEAKER) (test No growth in 5 days code = 1095) BLOOD [id number] 06:00:00 Test Item Value Reference Range Interpretation Comments CULTURE (BEAKER) (test No growth in 5 days code = 1095) POCT-GLUCOSE [id number] 20:46:00 Test Item Value Reference Range Interpretation Comments POC-GLUCOSE METER 157 mg/dL 70-110 H TESTED AT [place] [address] ([facility]) (test code = [facility] 1538) [address] HEMOGLOBIN AND [id number] 14:24:00 Test Item Value Reference Range Interpretation Comments HEMOGLOBIN (BEAKER) (test code = 7.9 GM/DL 11.2-15.7 L 410) HEMATOCRIT ([facility]) (test code = 23.3 % 34.1-44.9 L 411) POCT-GLUCOSE [id number] 13:32:00 Test Item Value Reference Range Interpretation Comments POC-GLUCOSE METER 116 mg/dL 70-110 H TESTED AT [place] [address] ([facility]) (test code = [facility] 1538) [address] [id number] 12:04:00 Test Item Value Reference Range Interpretation Comments PROCALCITONIN (AKER) (test code 2.57 ng/mL <0.05 H = 3036) SEPSIS RISK (ng/mL)Low: 0.05-0.50Intermediate: 0.51-2.00High: >=[id number] 11:04:00 Test Item Value Reference Range Interpretation Comments LIPASE ([facility]) (test code = 749) 36 U/L 8-78 POCT-GLUCOSE [id number] 07:09:00 Test Item Value Reference Range Interpretation Comments POC-GLUCOSE METER 91 mg/dL 70-110 TESTED AT [place] [address] ([facility]) (test code = [facility] [address] 1538) CALCIUM, [id number] 06:30:00 Test Item Value Reference Range Interpretation Comments CALCIUM IONIZED (BEAKER) (test 1.10 mmol/L 1.12-1.27 L code = 698) PH, BLOOD (BEAKER) (test code = 7.40 1810) BLOOD GAS, [id number] 05:31:00 Test Item Value Reference Range Interpretation [...] code = 1819) 20.0 % COMPREHENSIVE METABOLIC [id number] 05:10:00 Test Item Value Reference Range Interpretation [...] S NOT APPLICABLE FOR DIALYSIS PATIEN TS. [id number] 05:05:00 Test Item Value Reference Range Interpretation Comments PHOSPHORUS (BEAKER) (test code = 2.2 mg/dL 2.3-4.7 L 604) [id number] 05:05:00 Test Item Value Reference Range Interpretation Comments MAGNESIUM (BEAKER) (test code = 1.9 mg/dL 1.6-2.6 627) LACTIC ACID, VENOUS, WHOLE [id number] 04:44:00 Test Item Value Reference Range Interpretation Comments LACTATE BLOOD VENOUS (2) (BEAKER) 0.7 mmol/L 0.5-2.2 (test code = 2872) Effective 12/15/2015: Units/Reference Range ChangeNew: 0.5-2.2 mmol/L Previous: 5-20 mg/[id number] 04:42:00 Test Item Value Reference Range Interpretation Comments PARTIAL THROMBOPLASTIN TIME 41.1 seconds 22.5-36.0 H (BEAKER) (test code = 760) PROTHROMBIN [id number] 04:41:00 Test Item Value Reference Range Interpretation [...] (BEAKER) (test code = 412) PLATELET COUNT ([facility]) (test 184 K/CU MM 150-450 code = 756) MEAN PLATELET VOLUME (AKER) 10.0 fL 9.4-12.3 (test code = 754) NUCLEATED RED BLOOD CELLS 1 /100 WBC 0-0 H (AKER) (test code = 413) POCT-GLUCOSE [id number] 22:06:00 Test Item Value Reference Range Interpretation Comments POC-GLUCOSE METER 109 mg/dL 70-110 TESTED AT [place] [address] ([facility]) (test code = [place] 1538) [address] [id number] 21:01:00 Test Item Value Reference Range Interpretation Comments POTASSIUM (BEAKER) 4.1 meq/L 3.5-5.1 Specimen slightly (test code = 379) hemolyzed [id number] 18:20:00 Test Item Value Reference Range Interpretation Comments POTASSIUM (BEAKER) (test code = 4.0 meq/L 3.5-5.1 379) [id number] 18:20:00 Test Item Value Reference Range Interpretation Comments MAGNESIUM (BEAKER) (test code = 1.8 mg/dL 1.6-2.6 627) [id number] 18:20:00 Test Item Value Reference Range Interpretation Comments PHOSPHORUS (BEAKER) (test code = 1.9 mg/dL 2.3-4.7 L 604) [id number] 18:20:00 Test Item Value Reference Range Interpretation Comments CALCIUM (BEAKER) (test code = 697) 8.9 mg/dL 8.4-10.2 POCT-GLUCOSE [id number] 17:24:00 Test Item Value Reference Range Interpretation Comments POC-GLUCOSE METER 100 mg/dL 70-110 TESTED AT [place] [address] ([facility]) (test code = [place] 1538) [address] BLOOD GAS, [id number] 14:09:00 Test Item Value Reference Range Interpretation [...] (BEAKER) (test code = 1819) 100.0 % [id number] 13:11:00 Test Item Value Reference Range Interpretation Comments POTASSIUM (BEAKER) (test code = 4.2 meq/L 3.5-5.1 379) POCT-GLUCOSE [id number] 12:04:00 Test Item Value Reference Range Interpretation Comments POC-GLUCOSE METER 86 mg/dL 70-110 TESTED AT [facility] 6720 (BEAKER) (test code = RODOLFO Pitts [facility] [address] 1538) [id number] 08:55:00 Test Item Value Reference Range Interpretation Comments POTASSIUM (BEAKER) (test code = 4.2 meq/L 3.5-5.1 379) BLOOD GAS, [id number] 08:49:00 Test Item Value Reference Range Interpretation [...] % Please obtain with patient off bipapPOCT-GLUCOSE [id number] 07:13:00 Test Item Value Reference Range Interpretation Comments POC-GLUCOSE METER 83 mg/dL 70-110 TESTED AT [facility] 6720 (BEAKER) (test code = RODOLFO [place] [address] 1538) [id number] 04:01:00 Test Item Value Reference Range Interpretation Comments PHOSPHORUS (BEAKER) (test code = 1.8 mg/dL 2.3-4.7 L 604) [id number] 04:01:00 Test Item Value Reference Range Interpretation Comments MAGNESIUM (BEAKER) (test code = 1.7 mg/dL 1.6-2.6 627) COMPREHENSIVE METABOLIC [id number] 04:01:00 Test Item Value Reference Range Interpretation [...] DIALYSIS PATIEN TS. LACTIC ACID, ARTERIAL, WHOLE [id number] 03:49:00 Test Item Value Reference Range Interpretation [...] 0-0 H (BEAKER) (test code = 413) [id number] 03:47:00 Test Item Value Reference Range Interpretation Comments PARTIAL THROMBOPLASTIN TIME 32.8 seconds 22.5-36.0 (BEAKER) (test code = 760) PROTHROMBIN [id number] 03:46:00 Test Item Value Reference Range Interpretation Comments PROTIME (BEAKER) (test code = 15.0 seconds 11.7-14.7 H 759) INR (BEAKER) (test code = 370) 1.2 <=5.9 RECOMMENDED COUMADIN/WARFARIN INR THERAPY RANGESSTANDARD DOSE: 2.0 - 3.0 Includes: PROPHYLAXIS forvenous thrombosis, systemic embolization; TREATMENT for venous thrombosis and/or pulmonary embolus.HIGH RISK: Target INR is 2.5-3.5 for patients with mechanical heart valves.CALCIUM, [id number] 03:38:00 Test Item Value Reference Range Interpretation Comments CALCIUM IONIZED (BEAKER) (test 1.17 mmol/L 1.12-1.27 code = 698) PH, BLOOD (BEAKER) (test code = 7.39 1810) POCT-GLUCOSE [id number] 23:04:00 Test Item Value Reference Range Interpretation Comments POC-GLUCOSE METER 94 mg/dL 70-110 TESTED AT [place] [address] ([facility]) (test code = [facility] [address] 1538) [id number] 21:57:00 Test Item Value Reference Range Interpretation Comments POTASSIUM (BEAKER) (test code = 4.4 meq/L 3.5-5.1 379) POCT-GLUCOSE [id number] 18:02:00 Test Item Value Reference Range Interpretation Comments POC-GLUCOSE METER 99 mg/dL 70-110 TESTED AT [place] [address] ([facility]) (test code = [facility] [address] 1538) BLOOD GAS, [id number] 17:15:00 Test Item Value Reference Range Interpretation [...] (BEAKER) (test 37.0 C code = 1818) [id number] 16:07:00 Test Item Value Reference Range Interpretation Comments POTASSIUM (BEAKER) (test code = 4.4 meq/L 3.5-5.1 379) [id number] 16:07:00 Test Item Value Reference Range Interpretation Comments MAGNESIUM (BEAKER) (test code = 2.0 mg/dL 1.6-2.6 627) [id number] 16:07:00 Test Item Value Reference Range Interpretation Comments PHOSPHORUS (BEAKER) (test code = 2.1 mg/dL 2.3-4.7 L 604) [id number] 16:07:00 Test Item Value Reference Range Interpretation Comments CALCIUM (BEAKER) (test code = 697) 8.2 mg/dL 8.4-10.2 L MR, ABDOMEN, [id number] 15:19:00FINAL REPORT INDICATION:57-year-old female with abdominal pain, [...] be related to pancreatitis. Signed: Jesús Laboy Verified Date/Time: 04/29/2018 15:19:21 Reading Location: [facility] C013Y CT Body Reading Room U/S, RENAL WITH [id number] 14:53:00Reason for exam:->ENRIQUE with severe sepsisShould this [...] a variety of renal diseases. Signed: Austin KenortVerified Date/Time: 04/29/2018 14:53:07 Reading Location: [facility] P006J Ultrasound Reading Room BLOOD GAS, [id number] 14:33:00 Test Item Value Reference Range Interpretation [...] (test code = 1819) 100.0 % POCT-GLUCOSE [id number] 12:20:00 Test Item Value Reference Range Interpretation Comments POC-GLUCOSE METER 116 mg/dL 70-110 H TESTED AT [facility] 6720 (BEAKER) (test code = [place] 1538) [address] BLOOD GAS, [id number] 10:57:00 Test Item Value Reference Range Interpretation [...] (BEAKER) (test code = 1819) 100.0 % [id number] 10:19:00 Test Item Value Reference Range Interpretation [...] METER 125 mg/dL 70-110 H TESTED AT [facility] 6720 (BEAKER) (test code = [place] 1538) [address] BLOOD GAS, [id number] 06:41:00 Test Item Value Reference Range Interpretation [...] (test code = 1819) 28.0 % CALCIUM, [id number] 06:14:00 Test Item Value Reference Range Interpretation Comments CALCIUM IONIZED (BEAKER) (test 1.11 mmol/L 1.12-1.27 L code = 698) PH, BLOOD (BEAKER) (test code = 7.20 1810) COMPREHENSIVE METABOLIC [id number] 06:06:00 Test Item Value Reference Range Interpretation [...] APPLICABLE FOR DIALYSIS PATIEN TS. BASIC METABOLIC [id number] 06:05:00 Test Item Value Reference Range Interpretation [...] S NOT APPLICABLE FOR DIALYSIS PATIEN TS. [id number] 05:13:00 Test Item Value Reference Range Interpretation Comments PHOSPHORUS (BEAKER) (test code = 3.5 mg/dL 2.3-4.7 604) [id number] 05:13:00 Test Item Value Reference Range Interpretation Comments MAGNESIUM (BEAKER) (test code = 2.2 mg/dL 1.6-2.6 627) HIV-1 ANTIGEN WITH HIV-1/2 [id number] 05:12:00 Test Item Value Reference Range Interpretation Comments HIV-1 ANTIGEN WITH HIV 1\\T\\2 Nonreactive Nonreactive ANTIBODY (2) (BEAKER) (test code = 2586) LACTIC ACID, ARTERIAL, WHOLE [id number] 04:48:00 Test Item Value Reference Range Interpretation Comments LACTATE BLOOD ARTERIAL (2) 1.0 mmol/L 0.5-2.2 (BEAKER) (test code = 2874) Effective 12/15/2015: Units/Reference Range ChangeNew: 0.5-2.2 mmol/L Previous: 5-20 mg/[id number] 04:47:00 Test Item Value Reference Range Interpretation Comments PARTIAL THROMBOPLASTIN TIME 34.3 seconds 22.5-36.0 (BEAKER) (test code = 760) PROTHROMBIN [id number] 04:45:00 Test Item Value Reference Range Interpretation [...] WBC 0-0 (BEAKER) (test code = 413) [id number] 00:18:00 Test Item Value Reference Range Interpretation Comments POTASSIUM (BEAKER) (test code = 3.9 meq/L 3.5-5.1 379) POCT-GLUCOSE [id number] 22:25:00 Test Item Value Reference Range Interpretation Comments POC-GLUCOSE METER 172 mg/dL 70-110 H TESTED AT [place] [address] ([facility]) (test code = [place] 1538) [address] [id number] 20:46:00 Test Item Value Reference Range Interpretation Comments CALCIUM (BEAKER) (test code = 697) 7.1 mg/dL 8.4-10.2 L [id number] 20:34:00 Test Item Value Reference Range Interpretation Comments PHOSPHORUS (BEAKER) 3.5 mg/dL 2.3-4.7 Specimen slightly (test code = 604) hemolyzed [id number] 20:34:00 Test Item Value Reference Range Interpretation Comments POTASSIUM (BEAKER) 3.9 meq/L 3.5-5.1 Specimen slightly (test code = 379) hemolyzed [id number] 20:32:00 Test Item Value Reference Range Interpretation Comments MAGNESIUM (BEAKER) 2.2 mg/dL 1.6-2.6 Specimen slightly (test code = 627) hemolyzed POCT-GLUCOSE [id number] 18:02:00 Test Item Value Reference Range Interpretation Comments POC-GLUCOSE METER 151 mg/dL 70-110 H TESTED AT [place] [address] (BEAKER) (test code = [place] 1538) [address] [id number] 15:43:00 Test Item Value Reference Range Interpretation Comments POTASSIUM (BEAKER) (test code = 4.0 meq/L 3.5-5.1 379) RAD, CHEST, 1 VIEW, NON [id number] 15:34:00Reason for exam:->HD cath placementShould this be performed at the bedside?->YesFINAL REPORT AP chest HISTORY: 04/28/2018 IMPRESSION:Right IJ dialysis catheter placed with tip at upper SVC. Remainder supportive lines unchanged. Stable cardiac silhouette. Hypoinflation. Mild perihilar atelectasis. No pneumothorax. Signed: Madeleine Santacruz MDReport Verified Date/Time: 04/28/2018 15:34:26 Reading Location: [address] Ortho Consult Reading Room PLATELET [id number] 15:32:00 Test Item Value Reference Range Interpretation Comments PLATELET COUNT ([facility]) (test 105 K/CU MM 150-450 L code = 756) Please draw in citrate (blue top) tube at next blood drawACETAMINOPHEN LEVEL 2018-04-28 11:35:00 Test Item Value Reference Range Interpretation Comments ACETAMINOPHEN LEVEL (AYADAKER) (test < ug/mL 10.0-30.0 L code = 344) Therapeutic Range: 10.0-30.0 g/mLToxic Levels: >200.0 g/mLPOCT-GLUCOSE [id number] 11:15:00 Test Item Value Reference Range Interpretation Comments POC-GLUCOSE METER 152 mg/dL 70-110 H TESTED AT [facility] ([facility]) (test code = [place] 1538) [address] HEPATITIS B SURFACE [id number] 11:06:00 Test Item Value Reference Range Interpretation Comments HEPATITIS B SURFACE ANTIGEN (2) Nonreactive Nonreactive ([facility]) (test code = 2585) HEPATITIS B CORE ANTIBODY, [id number] 11:06:00 Test Item Value Reference Range Interpretation Comments HEPATITIS B CORE IGM ANTIBODY Nonreactive Nonreactive ([facility]) (test code = 645) HEPATITIS C [id number] 11:06:00 Test Item Value Reference Range Interpretation Comments HEPATITIS C ANTIBODY (BEAKER) Nonreactive Nonreactive (test code = 367) HEPATITIS A ANTIBODY, [id number] 11:06:00 Test Item Value Reference Range Interpretation Comments HEPATITIS A IGM ANTIBODY (BEAKER) Nonreactive Nonreactive (test code = 498) PROTEIN, RANDOM [id number] 11:03:00 Test Item Value Reference Range Interpretation Comments PROTEIN, URINE (BEAKER) (test code 191 mg/dL 0-14 H = 1569) HEMOGLOBIN [id number] 10:45:00 Test Item Value Reference Range Interpretation Comments HEMOGLOBIN A1C (BEAKER) (test code = 5.5 % 4.3-6.1 368) CREATININE, RANDOM [id number] 10:42:00 Test Item Value Reference Range Interpretation Comments CREATININE URINE (BEAKER) (test 50.7 mg/dL code = 375) Reference Range: No NormalsSODIUM, RANDOM [id number] 10:42:00 Test Item Value Reference Range Interpretation Comments SODIUM URINE (BEAKER) (test code = 48 meq/L 243) Reference Range: No NormalsBASIC METABOLIC [id number] 09:24:00 Test Item Value Reference Range Interpretation [...] NOT APPLICABLE FOR DIALYSIS PATIEN TS. CALCIUM, [id number] 09:19:00 Test Item Value Reference Range Interpretation Comments CALCIUM IONIZED (BEAKER) (test 0.93 mmol/L 1.12-1.27 L code = 698) PH, BLOOD (BEAKER) (test code = 7.20 1810) [id number] 09:13:00 Test Item Value Reference Range Interpretation Comments HAPTOGLOBIN (BEAKER) (test code = 164 mg/dL 14-258 366) [id number] 09:12:00 Test Item Value Reference Range Interpretation Comments PHOSPHORUS (BEAKER) (test code = 4.5 mg/dL 2.3-4.7 604) [id number] 09:12:00 Test Item Value Reference Range Interpretation Comments MAGNESIUM (BEAKER) (test code = 1.7 mg/dL 1.6-2.6 627) RAD, CHEST, 1 VIEW, NON [id number] 09:01:00Reason for exam:- >hypoxiaShould this be performed at the bedside?->YesFINAL REPORT AP chest HISTORY: Hypoxia COMPARISON: 04/27/2018 IMPRESSION:Suppor tive lines unchanged. Stable cardiac silhouette. Minimal perihilar atelectasis. No pneumothorax. Signed: Madeleine Santacruz MDReport Verified Date/Time: 04/28/2018 09:01:47 Reading Location: [address] Consult Reading Room PHERAL BLOOD SMEAR - HOLD [id number] 08:58:00 Test Item Value Reference Range Interpretation Comments PERIPHERAL SMEAR SAVE (BEAKER) (test saved code = 1815) RETICULOCYTE [id number] 08:58:00 Test Item Value Reference Range Interpretation Comments RETICULOCYTE COUNT PCT (BEAKER) (test 3.6 % 0.5-1.7 H code = 575) HEMOGLOBIN AND [id number] 08:52:00 Test Item Value Reference Range Interpretation Comments HEMOGLOBIN (BEAKER) (test code = 8.2 GM/DL 11.2-15.7 L 410) HEMATOCRIT (BEAKER) (test code = 24.9 % 34.1-44.9 L 411) CBC W/PLT COUNT & AUTO [id number] 07:40:00 Test Item Value Reference Range Interpretation [...] (BEAKER) Present (test code = 483) URINE [id number] 05:57:00 Test Item Value Reference Range Interpretation Comments CULTURE (BEAKER) (test code = 1095) No growth [id number] 05:00:00 Test Item Value Reference Range Interpretation Comments PHOSPHORUS (BEAKER) (test code = 4.4 mg/dL 2.3-4.7 604) [id number] 05:00:00 Test Item Value Reference Range Interpretation Comments MAGNESIUM (BEAKER) (test code = 1.6 mg/dL 1.6-2.6 627) HEMOGLOBIN AND [id number] 04:48:00 Test Item Value Reference Range Interpretation Comments HEMOGLOBIN (BEAKER) (test code = 8.0 GM/DL 11.2-15.7 L 410) HEMATOCRIT (BEAKER) (test code = 24.0 % 34.1-44.9 L 411) LIPID [id number] 03:38:00 Test Item Value Reference Range Interpretation [...] 130-159 High 160-189 Very High >=190HEPATIC FUNCTION [id number] 03:38:00 Test Item Value Reference Range Interpretation [...] 1138 U/L 125-220 H code = 635) [id number] 03:38:00 Test Item Value Reference Range Interpretation Comments LIPASE (BEAKER) (test code = 749) 525 U/L 8-78 H C-REACTIVE [id number] 03:38:00 Test Item Value Reference Range Interpretation Comments C-REACTIVE PROTEIN (BEAKER) (test 12.99 mg/dL 0.00-0.50 H code = 676) [id number] 03:23:00 Test Item Value Reference Range Interpretation Comments FIBRINOGEN LEVEL (BEAKER) (test 328 mg/dl 225-434 code = 658) [id number] 03:23:00 Test Item Value Reference Range Interpretation [...] 2.5-3.5 for patients with mechanical heart valves.PROTHROMBIN [id number] 03:22:00 Test Item Value Reference Range Interpretation Comments PROTIME (BEAKER) (test code = 16.2 seconds 11.7-14.7 H 759) INR (BEAKER) (test code = 370) 1.3 <=5.9 RECOMMENDED COUMADIN/WARFARIN INR THERAPY RANGESSTANDARD DOSE: 2.0 - 3.0 Includes: PROPHYLAXIS forvenous thrombosis, systemic embolization; TREATMENT for venous thrombosis and/or pulmonary embolus.HIGH RISK: Target INR is 2.5-3.5 for patients with mechanical heart valves.POCT-GLUCOSE [id number] 02:57:00 Test Item Value Reference Range Interpretation Comments POC-GLUCOSE METER 135 mg/dL 70-110 H TESTED AT [place] [address] ([facility]) (test code = [facility] 1538) [address] POCT-GLUCOSE [id number] 00:21:00 Test Item Value Reference Range Interpretation Comments POC-GLUCOSE METER 177 mg/dL 70-110 H TESTED AT [place] [address] ([facility]) (test code = [facility] 1538) [address] HEMOGLOBIN AND [id number] 00:21:00 Test Item Value Reference Range Interpretation Comments HEMOGLOBIN (LEO) (test code = 8.3 GM/DL 11.2-15.7 L 410) HEMATOCRIT ([place]) (test code = 24.6 % 34.1-44.9 L 411) POCT-GLUCOSE [id number] 22:08:00 Test Item Value Reference Range Interpretation Comments POC-GLUCOSE METER 156 mg/dL 70-110 H TESTED AT [facility] 67[address] ([place]) (test code = [place] [facility] 1538) [address] POCT-GLUCOSE [id number] 18:16:00 Test Item Value Reference Range Interpretation Comments POC-GLUCOSE METER 156 mg/dL 70-110 H TESTED AT [place] [address] ([facility]) (test code = [facility] G[place]elle [facility] 1538) [address] LACTATE DEHYDROGENASE (LDH)2018-04-27 16:18:00 Test Item Value Reference Range Interpretation Comments LACTATE DEHYDROGENASE ([place]) (test 1130 U/L 125-220 H code = 635) RAD, CHEST, 1 VIEW, NON [id number] 15:58:00Reason for exam:->LIJ placementShould this be performed [...] or blastic abnormalities are seen. Signed: Abhi Adamseport Verified Date/Time: 04/27/2018 15:58:19 Reading Location: [address] Reading Room HEMOGLOBIN AND [id number] 15:37:00 Test Item Value Reference Range Interpretation Comments HEMOGLOBIN (AYADAKER) (test code = 8.8 GM/DL 11.2-15.7 L 410) HEMATOCRIT ([place] ELENA) (test code = 26.1 % 34.1-44.9 L 411) PERIPHERAL BLOOD SMEAR - HOLD [id number] 14:50:00 Test Item Value Reference Range Interpretation Comments PERIPHERAL SMEAR SAVE (BEAKER) (test saved code = 1815) C-REACTIVE [id number] 12:47:00 Test Item Value Reference Range Interpretation Comments C-REACTIVE PROTEIN (BEAKER) (test 9.17 mg/dL 0.00-0.50 H code = 676) POCT-GLUCOSE [id number] 12:15:00 Test Item Value Reference Range Interpretation Comments POC-GLUCOSE METER 164 mg/dL 70-110 H TESTED AT [facility] 67[address] (BEAKER) (test code = [place] 1538) [address] B-TYPE NATRIURETIC FACTOR (BNP)2018-04-27 11:37:00 Test Item Value Reference Range Interpretation Comments B-TYPE NATRIURETIC PEPTIDE (BEAKER) 176 pg/mL 0-100 H (test code = 700) HEMOGLOBIN AND [id number] 11:08:00 Test Item Value Reference Range Interpretation Comments HEMOGLOBIN (BEAKER) (test code = 8.7 GM/DL 11.2-15.7 L 410) HEMATOCRIT (BEAKER) (test code = 25.6 % 34.1-44.9 L 411) [id number] 10:07:00 Test Item Value Reference Range Interpretation Comments FERRITIN (BEAKER) (test code = 4542 ng/mL 5-275 H 361) VITAMIN [id number] 10:06:00 Test Item Value Reference Range Interpretation Comments VITAMIN B12 (BEAKER) (test code = > pg/mL 213-816 H 774) CBC W/PLT COUNT & AUTO [id number] 09:11:00 Test Item Value Reference Range Interpretation [...] 36 % 20-55 (test code = 2590) [id number] 09:03:00 Test Item Value Reference Range Interpretation Comments PHOSPHORUS (BEAKER) (test code = 4.2 mg/dL 2.3-4.7 604) LACTIC ACID, VENOUS, WHOLE [id number] 09:00:00 Test Item Value Reference Range Interpretation Comments LACTATE BLOOD VENOUS (2) (BEAKER) 1.0 mmol/L 0.5-2.2 (test code = 2872) Effective 12/15/2015: Units/Reference Range ChangeNew: 0.5-2.2 mmol/L Previous: 5-20 mg/dLHEMOGLOBIN [id number] 08:35:00 Test Item Value Reference Range Interpretation Comments HEMOGLOBIN A1C (BEAKER) (test code = 5.0 % 4.3-6.1 368) U/S, ABDOMINAL, [id number] 07:57:00Abdomen limited area? Add comment if clarification [...] MDReport Verified Date/Time: 04/27/2018 07:57:35 Reading Location: [address] Consult Reading Room [id number] 07:07:00 Test Item Value Reference Range Interpretation Comments MAGNESIUM (BEAKER) (test code = 1.8 mg/dL 1.6-2.6 627) LACTIC ACID, VENOUS, WHOLE [id number] 07:05:00 Test Item Value Reference Range Interpretation Comments LACTATE BLOOD VENOUS 1.1 mmol/L 0.5-2.2 Specime n slightly (2) (BEAKER) (test hemolyzed code = 2872) Effective 12/15/2015: Units/Reference Range ChangeNew: 0.5-2.2 mmol/L Previous: 5-20 mg/dLHEMOGLOBIN AND [id number] 06:54:00 Test Item Value Reference Range Interpretation Comments HEMOGLOBIN (BEAKER) (test code = 9.0 GM/DL 11.2-15.7 L 410) HEMATOCRIT (BEAKER) (test code = 26.7 % 34.1-44.9 L 411) POCT-GLUCOSE [id number] 06:28:00 Test Item Value Reference Range Interpretation Comments POC-GLUCOSE METER 122 mg/dL 70-110 H TESTED AT [facility] 67[address] (BEAKER) (test code = [place] 1538) [address] [id number] 05:17:00 Test Item Value Reference Range Interpretation Comments AMMONIA (BEAKER) (test code = 348) 40 mol/L 18-72 POCT-GLUCOSE [id number] 04:46:00 Test Item Value Reference Range Interpretation Comments POC-GLUCOSE METER 166 mg/dL 70-110 H TESTED AT [facility] 67[address] (BEAKER) (test code = [place] 1538) [address] BLOOD GAS, [id number] 04:15:00 Test Item Value Reference Range Interpretation [...] (test code = 1819) 32 URINALYSIS W/ [id number] 01:36:00 Test Item Value Reference Range Interpretation [...] 1584) SOURCE(BEAKER) (test code = Urine, [place] 5177) HEMOGLOBIN AND [id number] 01:19:00 Test Item Value Reference Range Interpretation Comments HEMOGLOBIN (BEAKER) (test code = 9.0 GM/DL 11.2-15.7 L 410) HEMATOCRIT (BEAKER) (test code = 26.3 % 34.1-44.9 L 411) [id number] 00:57:00 Test Item Value Reference Range Interpretation Comments PHOSPHORUS (BEAKER) (test code = 0.7 mg/dL 2.3-4.7 LL 604) COMPREHENSIVE METABOLIC [id number] 00:55:00 Test Item Value Reference Range Interpretation [...] APPLICABLE FOR DIALYSIS PATIEN TS. Specimen slightly [id number] 00:53:00 Test Item Value Reference Range Interpretation Comments MAGNESIUM (BEAKER) (test code = 1.9 mg/dL 1.6-2.6 627) LIPID [id number] 00:53:00 Test Item Value Reference Range Interpretation [...] 160-189 Very High >=190 Specimen slightly ictericCALCIUM, [id number] 00:50:00 Test Item Value Reference Range Interpretation Comments CALCIUM IONIZED (BEAKER) (test 1.02 mmol/L 1.12-1.27 L code = 698) PH, BLOOD (BEAKER) (test code = 7.31 1810) LACTIC ACID, VENOUS, WHOLE [id number] 00:47:00 Test Item Value Reference Range Interpretation Comments LACTATE BLOOD VENOUS (2) (BEAKER) 3.6 mmol/L 0.5-2.2 H (test code = 2872) Effective 12/15/2015: Units/Reference Range ChangeNew: 0.5-2.2 mmol/L Previous: 5-20 mg/dLCBC W/PLT COUNT & AUTO [id number] 00:40:00 Test Item Value Reference Range Interpretation [...] Neutrophilic inclusions seen.RAD, CHEST, 1 VIEW, NON [id number] 00:24:00Reason for exam:->sob, coughShould this be performed [...] is uncoiled. Signed: Meghna Mares MDReport Verified Date/Time: 04/27/2018 00:24:54 Reading Location: [facility] C013Y CT Body Reading Room PROTHROMBIN [id number] 23:51:00 Test Item Value Reference Range Interpretation Comments PROTIME (BEAKER) (test code = 15.5 seconds 11.7-14.7 H 759) INR (BEAKER) (test code = 370) 1.2 <=5.9 RECOMMENDED COUMADIN/WARFARIN INR THERAPY RANGESSTANDARD DOSE: 2.0 - 3.0 Includes: PROPHYLAXIS forvenous thrombosis, systemic embolization; TREATMENT for venous thrombosis and/or pulmonary embolus.HIGH RISK: Target INR is 2.5-3.5 for patients with mechanical heart valves.[id number] 23:51:00 Test Item Value Reference Range Interpretation Comments FIBRINOGEN LEVEL ([place] ELENA) (test 231 mg/dl 225434 code = 658)
[2021-09-30] MEDS ORDERED: ONDANSETRON 4 MG/2 ML VIAL ONE (22:56)
[2021-09-30] MEDS ORDERED: MORPHINE 4 MG/ML SYR ONE (22:56)
[2021-09-30 23:02] LABS: Absolute Lymphocytes (CBC) 1.1 K/uL (0.7-4.9); Hematocrit 52.5 % (36.0-45.0); Lymphocytes % 7.7 % (15.3-44.8); MPV 7.1 fL (7.6-11.3); RBC Red Blood Cell Count 5.97 M/uL (3.86-4.86)
[2021-09-30 23:21] LABS: ALT/SGPT 24 U/L (12-78); AST/SGOT 19 U/L (15-37); Albumin 3.8 g/dL (3.4-5.0); Alkaline Phosphatase 126 U/L (45-117); BUN Blood Urea Nitrogen 14 mg/dL (7-18); Bicarbonate 24 mmol/L (21-32); Bilirubin Direct < 0.1 mg/dL (0-0.2); Bilirubin Total 0.2 mg/dL (0.2-1.0); Glucose Level 144 mg/dL (74-106); Lipase 42 U/L (73-393); Potassium 3.6 mmol/L (3.5-5.1); Protein, Total 8.8 g/dL (6.4-8.2); Sodium Level 135 mmol/L (136-145)
--- NOTE | 2021-10-01 01:15 | ER ---
Nurse's Notes [facility] Name: Madelaine Leonard Age: 61 yrs Sex: Female : 1960 Arrival Date: 09/30/2021 Time: 22:45 Bed 19 Private MD: Diagnosis: Abdominal pain, Generalized;Partial small bowel obstruction vs illieus Presentation: 09/30 22:45 Chief complaint: EMS states: pt has had abd pain and vomiting since 12:[address] [facility] afternoon. Coronavirus screen: Vaccine status: Patient reports being unvaccinated. Ebola Screen: No symptoms or risks identified at this time. Initial Sepsis Screen: Does the patient meet any 2 criteria? HR > 90 bpm. No. Patient's initial sepsis screen is negative. Does the patient have a suspected source of infection? No. Patient's initial sepsis screen is negative. Risk Assessment: Do you want to hurt yourself or someone else? Patient reports no desire to harm self or others. Onset of symptoms was September 30, 2021. 22:45 Method Of Arrival: EMS: [facility] 22:45 Acuity: DEV 3 [facility] Triage Assessment: 22:49 General: Appears uncomfortable, Behavior is cooperative. Pain: Complains of pain in 5 abdomen. Neuro: No deficits noted. Level of Consciousness is awake, alert, obeys commands, Oriented to person, place, time, situation. Cardiovascular: No deficits noted. Capillary refill < 3 seconds Patient's skin is warm and dry. Respiratory: No deficits noted. Airway is patent Trachea midline Respiratory effort is even, unlabored. GI: Abdomen is obese, Reports lower abdominal pain, upper abdominal pain, vomiting, Patient currently denies diarrhea. Historical: - Allergies: 22:46 Latex, Natural Rubber; sm5 22:46 Levofloxacin; sm5 22:46 Naproxen Sodium; sm5 22:46 PENICILLINS; sm5 - PMHx: 22:46 Chronic pain; Fibromyalgia; Hypertensive disorder; Hernia; sm5 - PSHx: 22:46 Repair of inguinal hernia; Total abdominal hysterectomy; sm5 - Immunization history:: Client reports having NOT received the Covid vaccine. - Social history:: Smoking status: Patient reports the use of cigarette tobacco products, smokes .25 packs per day, Patient uses alcohol, occasionally. Screenin:49 Abuse screen: Denies threats or abuse. Denies injuries from another. Nutritional [facility] screening: No deficits noted. Tuberculosis screening: No symptoms or risk factors identified. Fall Risk None identified. Assessment: 23:52 Reassessment: see triage assessment. 5 10/01 00:58 Reassessment: No changes from previously documented assessment. 5 01:55 Reassessment: No changes from previously documented assessment. sm5 02:56 Reassessment: No changes from previously documented assessment. Patient and/or family [facility] updated on plan of care and expected duration. Pain level reassessed. Vital Signs: 09/30 22:45 BP 168 / 96; Pulse 104; Resp 18; Temp 98.7(O); Pulse Ox 96% on R/A; Weight 90.72 kg; 5 Height 5 ft. 3 in. (160.02 cm); Pain 10/; 10/01 00:37 BP 154 / 69; Pulse 108; Resp 18; Pulse Ox 94% on R/A; sm5 01:30 BP 138 / 80; Pulse 112; Resp 19; Pulse Ox 95% on R/A; sm5 02:30 BP 142 / 84; Pulse 114; Resp 19; Pulse Ox 93% on R/A; sm5 09/30 22:45 Body Mass Index 35.43 (90.72 kg, 160.02 cm) [facility] ED Course: 09/30 22:45 Patient arrived in ED. mw2 22:45 Danielle Ulrich, MAUREEN is Primary Nurse. 5 22:46 Triage completed. 5 22:47 Carlene Perez [facility]-C [facility] kb 22:47 Ferdinand Valladares MD is Attending Physician. kb 22:49 Arm band placed on left wrist. sm5 22:50 Patient has correct armband on for positive identification. Bed in low position. Call [facility] light in reach. Side rails up X2. 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 Pulse ox on. NIBP on. 22:56 Inserted saline lock: 22 gauge in left antecubital area, using aseptic technique. Blood ds4 collected. 22:59 Basic Metabolic Panel Sent. sm5 22:59 CBC with Diff Sent. sm5 22:59 Hepatic Function Sent. sm5 22:[address] [facility] 10/01 00:39 CT Abd/Pelvis - IV Contrast Only In Process Unspecified. EDMS 01:14 Cali Catherine MD is Hospitalizing Provider. kb 01:17 Doug Shaw MD is Hospitalizing Provider. bb 02:04 No provider procedures requiring assistance completed. [facility] 02:58 Patient admitted, IV remains in place. 5 Administered Medications: 09/30 22:58 Drug: morphine 4 mg Route: IVP; Site: left antecubital; 5 10/01 02:59 Follow up: Response: Pain is decreased 5 09/30 22:58 Drug: Zofran (Ondansetron) 4 mg Route: IVP; Site: left antecubital; 5 10/01 02:59 Follow up: Response: Nausea is decreased [facility] 09/30 22:58 Drug: NS 0.9% 1000 ml Route: IV; Rate: 1000 ml; Site: left antecubital; 5 10/01 00:00 Follow up: IV Status: Completed infusion; IV Intake: 1000ml [facility] 01:49 Drug: Zosyn (piperacillin-tazobactam) 3.375 grams Route: IVPB; Infused Over: 60 mins; 5 Site: left antecubital; 02:49 Follow up: IV Status: Completed infusion; IV Intake: 100ml 5 01:49 Drug: Ativan (LORazepam) 1 mg Route: IVP; Site: left antecubital; [facility] 02:58 Follow up: Response: Anxiety unchanged [facility] Intake: 00:00 IV: 1000ml; Total: 1000ml. sm5 02:49 IV: 100ml; Total: 1100ml. [facility] Outcome: 01:15 Decision to Hospitalize by Provider. kb 02:57 Admitted to Med/surg accompanied by tech, via stretcher, with chart, Report called to [facility] Randy 02:57 Condition: stable 02:57 Instructed on the need for admit. 03:[address] [facility] Signatures: Dispatcher [employer] EDMS Carlene ePrez, LICO MCNEIL-Geraldine Palacios, RN RN Dimitri Wagoner ds4 Slime Galvin mw2 Danielle Ulrich RN RN 5 Corrections: (The following items were deleted from the chart) 02:56 09/30 23:52 Reassessment: No changes from previously documented assessment. sm5 sm5
--- NOTE | 2021-10-01 01:15 | EDPHYS ---
Physician Documentation [facility] Name: Madelaine Leonard Age: 61 yrs Sex: Female : 1960 Arrival Date: 09/30/2021 Time: 22:45 Bed 19 Private MD: ED Physician Ferdinand Valladares HPI: 10/01 00:45 This 61 yrs old Female presents to ER via EMS with complaints of abd pain. kb 00:45 The patient presents with abdominal pain that is diffuse. Onset: The symptoms/episode kb began/occurred today, at 12:30. The symptoms do not radiate. Associated signs and symptoms: Pertinent positives: nausea and vomiting. The symptoms are described as constant. Modifying factors: The symptoms are alleviated by nothing, the symptoms are aggravated by nothing. Severity of pain: At its worst the pain was moderate in the emergency department the pain is unchanged. The patient has not experienced similar symptoms in the past. The patient has not recently seen a physician. Historical: - Allergies: 09/30 22:46 Latex, Natural Rubber; sm5 22:46 Levofloxacin; sm5 22:46 Naproxen Sodium; sm5 22:46 PENICILLINS; sm5 - PMHx: 22:46 Chronic pain; Fibromyalgia; Hypertensive disorder; Hernia; sm5 - PSHx: 22:46 Repair of inguinal hernia; Total abdominal hysterectomy; sm5 - Immunization history:: Client reports having NOT received the Covid vaccine. - Social history:: Smoking status: Patient reports the use of cigarette tobacco products, smokes .25 packs per day, Patient uses alcohol, occasionally. ROS: 10/01 00:45 Constitutional: Negative for fever, chills, and weight loss. kb Abdomen/GI: Positive for abdominal pain, nausea and vomiting, Negative for diarrhea. All other systems are negative. Exam: 00:45 Constitutional: This is a well developed, well nourished patient who is awake, alert, kb and in no acute distress. Head/Face: Normocephalic, atraumatic. ENT: Moist Mucous membranes Cardiovascular: Regular rate and rhythm with a normal S1 and S2. No gallops, murmurs, or rubs. No pulse deficits. Respiratory: Respirations even and unlabored. No increased work of breathing. Talking in full sentences Skin: Warm, dry with normal turgor. Normal color. MS/ Extremity: Pulses equal, no cyanosis. Neurovascular intact. Full, normal range of motion. Neuro: Awake and alert, GCS 15, oriented to person, place, time, and situation. Moves all extremities. Normal gait. Psych: Awake, alert, with orientation to person, place and time. Behavior, mood, and affect are within normal limits. 00:45 Abdomen/GI: Inspection: abdomen appears normal, Bowel sounds: normal, in all quadrants, Palpation: soft, in all quadrants, moderate abdominal tenderness, in the right upper quadrant, left upper quadrant and left lower quadrant. Vital Signs: 09/30 22:45 BP 168 / 96; Pulse 104; Resp 18; Temp 98.7(O); Pulse Ox 96% on R/A; Weight 90.72 kg; 5 Height 5 ft. 3 in. (160.02 cm); Pain 10/10; 10/01 00:37 BP 154 / 69; Pulse 108; Resp 18; Pulse Ox 94% on R/A; 5 01:30 BP 138 / 80; Pulse 112; Resp 19; Pulse Ox 95% on R/A; 5 02:30 BP 142 / 84; Pulse 114; Resp 19; Pulse Ox 93% on R/A; 5 09/30 22:45 Body Mass Index 35.43 (90.72 kg, 160.02 cm) [facility] MDM: 09/30 22:47 Patient medically screened. kb 10/01 00:44 Data reviewed: vital signs, nurses notes. Data interpreted: Pulse oximetry: on room air kb is 94 %. Interpretation: normal. 01:12 Counseling: I had a detailed discussion with the patient and/or guardian regarding: the kb historical points, exam findings, and any diagnostic results supporting the discharge/admit diagnosis, lab results, radiology results, the need for further work-up and treatment in the hospital. Physician consultation: Darryl Sosa MD was contacted at 01:14, regarding consult, patient's condition. 01:14 Physician consultation: Jose BARFIELD was contacted at 01:14, regarding admission, kb to the medical/surgical unit. patient's condition, and will see patient in ED. 09/30 22:47 Order name: Basic Metabolic Panel; Complete Time: 23:23 kb 09/30 22:47 Order name: CBC with Diff; Complete Time: 23:17 kb 09/30 22:47 Order name: Hepatic Function; Complete Time: 23:23 kb 09/30 22:47 Order name: Lipase; Complete Time: 23:23 kb 09/30 22:52 Order name: CT Abd/Pelvis - IV Contrast Only kb 10/01 01:18 Order name: COVID-19 SARS RT PCR (Document "Date of Onset" if Symptomatic) [facility] 09/30 22:47 Order name: IV Saline Lock; Complete Time: 22:50 kb 09/30 22:47 Order name: Labs collected and sent; Complete Time: 22:55 kb 10/01 01:59 Order name: XRAY Chest (1 view) bb 10/01 01:31 Order name: NG Tube; Complete Time: 02:03 kb Administered Medications: 09/30 22:58 Drug: morphine 4 mg Route: IVP; Site: left antecubital; [facility] 10/01 02:59 Follow up: Response: Pain is decreased [facility] 09/30 22:58 Drug: Zofran (Ondansetron) 4 mg Route: IVP; Site: left antecubital; [facility] 10/01 02:59 Follow up: Response: Nausea is decreased [facility] 09/30 22:58 Drug: NS 0.9% 1000 ml Route: IV; Rate: 1000 ml; Site: left antecubital; [facility] 10/01 00:00 Follow up: IV Status: Completed infusion; IV Intake: 1000ml [facility] 01:49 Drug: Zosyn (piperacillin-tazobactam) 3.375 grams Route: IVPB; Infused Over: 60 mins; [facility] Site: left antecubital; 02:49 Follow up: IV Status: Completed infusion; IV Intake: 100ml [facility] 01:49 Drug: Ativan (LORazepam) 1 mg Route: IVP; Site: left antecubital; [facility] 02:58 Follow up: Response: Anxiety unchanged [facility] Disposition: 02:35 Co-signature as Attending Physician, Ferdinand Valladares MD I agree with the assessment and kdr plan of care. Disposition Summary: 10/01/21 01:15 Hospitalization Ordered Hospitalization Status: Inpatient Admission kb [facility] kb Condition: Stable kb Problem: new kb Symptoms: are unchanged kb Bed/Room Type: Standard kb Provider: Doug Shaw(10/01/21 01:17) ania Room Assignment: 232(10/01/21 02:36) nighat Diagnosis - Abdominal pain, Generalized kb - Partial small bowel obstruction vs illieus kb Forms: - Medication Reconciliation Form kb - SBAR form kb Signatures: Dispatcher [employer] EDCarlene Adams, EWA-C EWA-Ferdinand Pope MD MD [facility] Geraldine Sales RN RN bb Dayanara Joshua RN RN cg Mazur, Sarah, RN RN sm5 Corrections: (The following items were deleted from the chart) 01:17 01:15 Cali Catherine bb 02:36 01:15 dali disla
[2021-10-01] MEDS ORDERED: NA CHLORIDE 0.9% 100 ML IV ONE ×2 (01:35→01:38)
[2021-10-01] MEDS ORDERED: LORazepam 2 MG/ML VIAL ONE (01:35)
[2021-10-01] MEDS ORDERED: PIPERACIL/TAZO 3.375 GM VIAL IV ONE (01:35)
--- NOTE | 2021-10-01 01:44 | P.HP ---
Certification for Inpatient Patient admitted to: Inpatient With expected LOS: >2 Midnights Patient will require the following post-hospital care: None Practitioner: I am a practitioner with admitting privileges, knowledge of patient current condition, hospital course, and medical plan of care. Services: Services provided to patient in accordance with Admission requirements found in Title 42 Section 412.3 of the Code of Federal Regulations Patient History Date of Service: 10/01/21 Primary Care Provider: Dr. Dinero Reason for admission: SBO History of Present Illness: 61-year-old female with history of hypertension, fibromyalgia with extensive surgical history of the abdomen presents emergency department for nausea vomiting and abdominal pain. Patient reports that she is had abdominal pain increasing over the course last 2 days significantly worse today. Patient reports vomiting 6 or 7 times during the day today last normal bowel movement was 2 3 days ago had some diarrhea yesterday. Today patient with significant pain, no bowel movement today has not had any flatus. Patient was evaluated in the emergency department her labs were significant for white blood cell count 14.2 hemoglobin 7.2 hematocrit 52.5 sodium 135 glucose [address] abdomen pelvis with IV contrast demonstrates dilated mid small bowel loops especially along the anterior abdominal wall with no definitive transition point findings may represent a partial small bowel obstruction versus ileus perhaps related to adhesions. Patient has had multiple hernia repairs, a bowel resection hysterectomy etc. Patient with significant abdominal pain 9 out of 10 at this time feeling very nauseous with a distended abdomen, NG tube to be placed. Case was discussed with general surgery by ED provider will admit for further evaluation and management. Allergies Latex, Natural Rubber Allergy (Verified 09/22/14 15:47) Hives/Rash levofloxacin [From Levaquin] Allergy (Verified 09/22/14 15:37) Itching Penicillins Allergy (Verified 09/22/14 15:37) Hives naproxen sodium [From Aleve] Adverse Reaction (Verified 09/22/14 15:37) Nausea/Vomiting Home Medications: Gabapentin [Neurontin*] 800 mg PO TID 09/22/14 Metaxalone 800 mg PO QID 04/26/18 Atorvastatin Calcium 40 mg PO DAILY 12/29/20 Furosemide 40 mg PO DAILY 12/29/20 Venlafaxine HCl 37.5 mg PO DAILY WITH BREAKFAST 12/29/20 Fluticasone/Umeclidin/Vilanter [Trelegy Ellipta 100-62.5-25] 1 each IH DAILY #30 blst.w.dev 12/31/20 Albuterol Neb [Proventil 0.083% Neb Soln] 2.5 mg NEB [id number] PRN amp 01/11/21 Amlodipine [Norvasc*] 10 mg PO DAILY tab 01/11/21 Benzonatate [Tessalon Perle*] 100 mg PO TID PRN cap 01/11/21 Famotidine [Pepcid*] 40 mg PO BID tab 01/11/21 Hydrocodone 7.5/APAP 325 [[place] 7.5/325 mg*] 1 tab PO Q6H PRN #20 tab 01/11/21 Ipratropium Neb [Atrovent*] 0.5 mg NEB [id number] PRN amp 01/11/21 - Past Medical/Surgical History Diabetic: No -: chronic pain -: COPD -: HTN -: CHF, cardiomegaly -: Fibro myalgia -: R upper lobectomy -: multiple hernia surgeries -: multiple abdominal surgeries Psychosocial/ Personal History: Lives at home - Family History Father -: Heart disease, Hypertension Notes: Mother -: Heart disease, Lung disease, Cancer Notes: Brother -: Heart disease, Hypertension, Lung disease Notes: - Social History Smoking Status: Current every day smoker Smoking therapy provided: No (Offered patient declined) Alcohol use: Yes CD- Drugs: Yes Caffeine use: No Place of Residence: Home Review of Systems 10-point ROS is otherwise unremarkable Gastrointestinal: Nausea, Vomiting, Abdominal Pain, Diarrhea, Constipation, As per HPI Physical Examination - Physical Exam General: Alert, In no apparent distress, Oriented x3, Obese HEENT: Atraumatic, PERRLA, Mucous membr. moist/pink, EOMI, Sclerae nonicteric Neck: Supple, 2+ carotid pulse no bruit, No LAD, Without JVD or thyroid abnormality Respiratory: Clear to auscultation bilaterally, Normal air movement Cardiovascular: Regular rate/rhythm, Normal S1 S2 Gastrointestinal: Hypoactive, No rebound, No guarding, Tenderness (Moderate generalized abdominal tenderness worse in the epigastric region) Musculoskeletal: No tenderness Integumentary: No rashes Neurological: Normal speech, Normal strength at 5/5 x4 extr, Normal tone, Normal affect - Studies Laboratory Data (last 24 hrs) 09/30/21 22:53: WBC 14.20 H, Hgb 17.2 H, Hct 52.5 H, Plt Count 308 09/30/21 22:53: Sodium 135 L, Potassium 3.6, BUN 14, Creatinine 0.60, Glucose 144 H, Total Bilirubin 0.2, AST 19, ALT 24, Alkaline Phosphatase 126 H, Lipase 42 L Assessment and Plan - Plan Assessment: SBO with hx of multiple abd surgeries Chronic diastolic CHF HTN Alcohol abuse chronic pain/fibromyalgia Plan: SBO with hx of multiple abd surgeries: N.p.o., IV fluids, as needed pain medication and antiemetics. Patient with significant abdominal pain 9 out of 10 abdominal distention, nausea for that reason NG tube was placed in the emergency department placed to low intermittent wall suction will obtain x-ray to confirm placement. IV antibiotics with Zosyn, patient denies penicillin allergy not sure why this is in her chart. Chronic diastolic CHF: Stable this time we will continue with IV fluids monitor volume status closely. HTN: As needed IV antihypertensives. Alcohol abuse: Patient reports that she does not drink daily but does drink frequently will have patient monitored for signs of alcohol withdrawal also with significant anxiety as needed IV Ativan. chronic pain/fibromyalgia: As needed morphine for now restart home medications when tolerating p.o. DVT PPX: SCD Code status: FULL Discharge Plan: Home Plan to discharge in: Greater than 2 days - Advance Directives Does patient have a Living Will: No Does patient have a Durable POA for Healthcare: No - Code Status/Comfort Care Code Status Assessed: Yes (Full) Critical Care: No Time Spent Managing Pts Care (In Minutes): 55
[2021-10-01] MEDS ORDERED: D5 0.45 NS 1,000 ML IV ONE (03:26)
[2021-10-01] MEDS: D5 0.45 NS 1,000 ML IV SCH ×3 (03:40→23:40)
[2021-10-01] MEDS ORDERED: HYDRALAZINE HCL 20 MG/ML VIAL IV PRN (03:40)
[2021-10-01 03:56] VITALS: BMI 37.2
[2021-10-01] MEDS: ONDANSETRON 4 MG/2 ML VIAL IV PRN (04:03)
[2021-10-01] MEDS: MORPHINE 4 MG/ML SYR IV PRN ×5 (04:03→21:57)
[2021-10-01] MEDS ORDERED: KCL 20 MEQ/100 mL IVPB 20 MEQ/100 ML BAG IV SCH (07:00)
--- NOTE | 2021-10-01 11:53 | CON ---
Date of Consultation: 10/01/2021 Reason For Service: Small bowel obstruction. History Of Present Illness: This is the case of a 61-year-old patient well known by us due to multip le history of small bowel obstruction in the past. She had extensive intraabdominal surgery done at a different institution. We also have a chance to several years ago to do extensive lysis of adhesio ns. In the last few years, she has been on and off bowel obstructions and resolved on its own with c onservative treatment and nasogastric decompress and bowel rest. Now in the last 2 days, she felt on ce again the bloating. She knows when it is coming. She does not recall eating anything out of the usual. She denies any dysuria, hematuria, hematochezia, melena. Denies any recent traveling out of the country. Denies any family member sick at home. The patient advised the importance of colonosco pies. Past Medical History: Once again include multiple bowel obstructions, congestive heart failure, COPD , fibromyalgia, hypertension. Past Surgical History: Surgeries include multiple abdominal surgeries that include bowel resection i n the past in another institutions. She also has multiple hernia repair. Extensive lysis of adhesio ns. Social History: She does not drink, but she currently smokes. She was counseled the importance of s moking cessation. Family History: Includes hypertension. Review of Systems: Nausea, vomiting, abdominal pain. See H and P. Ten points otherwise unremarkable. Physical Examination: General: The patient is awake, alert. HEENT: Pupils are equal and reactive. Anicteric. NG tube in nose. Tongue midline. Neck: Supple. Chest: Bilateral breath sounds. Abdomen: Soft and depressible. Softly distended, but no peritonitis. Rectal: Deferred. Extremities: Good capillary refill. Laboratory Data: Blood work shows WBC count of 14.2, hemoglobin 17.2, platelets of 308. Sodium is 1 35. CAT scan of the abdomen and pelvis, official result is still pending. Preliminary shows divided small bowel, cannot rule out ileus versus obstruction with no specific transition point. Assessment: A 61-year-old patient with small bowel obstruction. We are going to give her bowel rest , ambulation. She understands the options of laparotomy with possible resection with benefits, alter natives, and risks including, but not limited to infection, bleeding, damage to adjacent structures, anesthesia complication, recurrence, SD, and even . Obviously, she has been through this before . She is trying to avoid surgery if she can, so lets see what happened in the next 24 to 48 hours. As long as she does not develop peritonitis, we can help her and be by her side. I am trying to see we can once again resolve this conservatively. Once again, she was advised the importance of followi ng up with a advertising account manager for colonoscopies and also diet control and obviously smoking cessati on. AMARIS/RAINA Voice ID: [id number] Report ID: [id number]
--- NOTE | 2021-10-01 13:07 | P.PN ---
Subjective Date of Service: 10/01/21 Primary Care Provider: Dr. Dinero Chief Complaint: SBO Subjective: No new changes (See NG tube, states abdominal pain persistent despite pain medication) Physical Examination - Vital Signs Temperature: 96.9 F Blood Pressure: 118/55 Pulse: 95 Respirations: 18 Pulse Ox (%): 93 - Studies Laboratory Data (last 24 hrs) 09/30/21 22:53: WBC 14.20 H, Hgb 17.2 H, Hct 52.5 H, Plt Count 308 09/30/21 22:53: Sodium 135 L, Potassium 3.6, BUN 14, Creatinine 0.60, Glucose 144 H, Total Bilirubin 0.2, AST 19, ALT 24, Alkaline Phosphatase 126 H, Lipase 42 L Assessment And Plan Physician Review: Patient Assessed, Agree with Above Assessment and Plan Physician Review Additional Text: 10/01/21 13:06 - Physical Exam General: Alert, In no apparent distress, Oriented x3, Obese, NG tube in situ HEENT: Atraumatic, PERRLA, Mucous membr. moist/pink, EOMI, Sclerae nonicteric Neck: Supple, 2+ carotid pulse no bruit, No LAD, Without JVD or thyroid abnormality Respiratory: Clear to auscultation bilaterally, Normal air movement Cardiovascular: Regular rate/rhythm, Normal S1 S2 Gastrointestinal: Hypoactive, No rebound, No guarding, generalized abdominal tenderness, more prominent over right lower quadrant Musculoskeletal: No tenderness Integumentary: No rashes Neurological: Normal speech, Normal strength at 5/5 x4 extr, Normal tone, Normal affect - Studies Laboratory Data (last 24 hrs) 09/30/21 22:53: WBC 14.20 H, Hgb 17.2 H, Hct 52.5 H, Plt Count 308 09/30/21 22:53: Sodium 135 L, Potassium 3.6, BUN 14, Creatinine 0.60, Glucose 144 H, Total Bilirubin 0.2, AST 19, ALT 24, Alkaline Phosphatase 126 H, Lipase 42 L Assessment and Plan SBO with hx of multiple abd surgeries Chronic diastolic CHF HTN Alcohol abuse chronic pain/fibromyalgia Plan: SBO with hx of multiple abd surgeries: Continue NG tube Continue n.p.o. status today Continue IVF with pain regimen Daily KUB to follow We DC IV antibiotics seasonal evidence of infection Elevated WBC may be reactive, follow trend Chronic diastolic CHF: Stable this time we will continue with IV fluids monitor volume status closely. HTN: As needed IV antihypertensives. Alcohol abuse: Patient reports that she does not drink daily but does drink frequently will have patient monitored for signs of alcohol withdrawal also with significant anxiety as needed IV Ativan. chronic pain/fibromyalgia: As needed morphine for now restart home medications when tolerating p.o. DVT PPX: SCD Code status: FULL Discharge Plan: Home
[2021-10-01] MEDS: LORazepam 2 MG/ML VIAL IV PRN ×3 (13:36→21:58)
--- NOTE | 2021-10-01 17:07 | RAD REPORT ---
EXAM DESCRIPTION: RAD - Chest Single View - 10/01/2021 2:18 am CLINICAL HISTORY: 61 years, Female, s/p NG tube placement COMPARISON: None. FINDINGS: Single view of the chest was obtained portable. No prior films are available for compariso n. There is a nasogastric tube in place with the tip in the fundus of the stomach in good position. T he cardiomediastinal silhouette demonstrate to be unremarkable. The heart is not enlarged. The thor acic aorta is unremarkable. Costophrenic angles are sharp. No areas of consolidation or masses are seen. External EKG leads within the [id number] limits diagnosis. The rest of the soft tissue and bony structures demonstrate to be unremarkable. IMPRESSION: Satisfactory position of nasogastric tube. Electronically signed by: Joel Hsu MD 10/01/2021 2:31 AM MECHANICAL ARTIST Due to temporary technical issues with the PACS/Fluency reporting system, reports are being signed by the in house radiologists without review as a courtesy to insure prompt reporting. The interpreting radiologist is fully responsible for the content of the report.
--- NOTE | 2021-10-01 17:22 | RAD REPORT ---
EXAM DESCRIPTION: CT - Abdomen Pelvis W Contrast - 10/01/2021 3:55 am CLINICAL HISTORY: 61 years, Female, ABD PAIN COMPARISON: None. TECHNIQUE: Contrast-enhanced images of the abdomen and pelvis were performed utilizing 5 mm slice th ickness at 5 mm interval reconstruction from the lung bases to the ischial tuberosities after the adm inistration IV contrast. In addition multiplanar reformats in the coronal and sagittal plane were obtained and reviewed. This exam was performed according to our departmental dose-optimization protocol, which includes auto mated exposure control, adjustment of the mA and/or kV according to patient size and/or use of iterat patrick reconstruction technique. FINDINGS: The lung bases demonstrate to be clear. The liver, gallbladder, pancreas, spleen and adrenal glands demonstrate to be unremarkable, no focal lesions are noted. The kidneys demonstrate normal uptake of contrast media. No evidence for nephrolithiasis and/or hydro nephrosis. Tiny hypodensities within the right and left kidney correspond to perhaps a small cysts. Grossly the unopacified stomach and large bowel demonstrate to be within normal limits. There is ar throdesis within the left site colon/sigmoid colon with no evidence for diverticulitis. The appendi x was not visualized although no significant inflammatory changes are seen within the right lower sumit drant. There are dilated mid small bowel loops especially along the anterior abdominal wall with no definiti ve the transition point. There are postsurgical changes within the right upper quadrant and lower abd omen/left lower quadrant area. The terminal ileum is decompressed. The urinary bladder demonstrate to be unremarkable. The uterus is absent. The aorta demonstrate t o be normal. There is no retroperitoneal lymphadenopathy. There is no evidence for ascites.. The re st of the soft tissue and bony structures are within normal limits. There is status post bilateral in guinal hernia repair. IMPRESSION: Dilated mid small bowel loops especially along the anterior abdominal wall with no defin itive the transition point. Findings may represent a partial small bowel obstruction versus ileus, pe rhaps related to adhesions. Diverticulosis without evidence for diverticulitis. Status post bilateral inguinal hernia repair. Status post hysterectomy. Electronically signed by: Joel Hsu MD 10/01/2021 12:52 AM DIESEL FITTER MECHANIC Due to temporary technical issues with the PACS/Fluency reporting system, reports are being signed by the in house radiologists without review as a courtesy to insure prompt reporting. The interpreting radiologist is fully responsible for the content of the report.
[2021-10-01 20:15] LABS: Urine Appearance CLEAR (Clear); Urine Bilirubin NEGATIVE (Negative); Urine Blood NEGATIVE (Negative); Urine Color DK YELLOW (Yellow); Urine Glucose NEGATIVE (Negative); Urine Protein 2+ (Negative); Urine Specific Gravity >=1.030 (1.005-1.030); Urine Urobilinogen 0.2 mg/dL (0.2-1.0)
[2021-10-01 20:16] LABS: Urine Microscopic Reflex ORDER UMIC
[2021-10-01 20:58] LABS: Urine Bacteria <20 /HPF (<20); Urine RBC <5 /HPF (NONE SEEN)
[2021-10-02] MEDS: MORPHINE 4 MG/ML SYR IV PRN ×3 (06:40→21:13)
[2021-10-02 07:35] LABS: Absolute Lymphocytes (CBC) 1.6 K/uL (0.7-4.9); Hematocrit 42.6 % (36.0-45.0); Lymphocytes % 23.1 % (15.3-44.8); MPV 6.9 fL (7.6-11.3); RBC Red Blood Cell Count 4.79 M/uL (3.86-4.86)
[2021-10-02 07:41] LABS: ALT/SGPT 17 U/L (12-78); AST/SGOT 16 U/L (15-37); Albumin 2.9 g/dL (3.4-5.0); Alkaline Phosphatase 86 U/L (45-117); BUN Blood Urea Nitrogen 8 mg/dL (7-18); Bicarbonate 30 mmol/L (21-32); Bilirubin Total 0.5 mg/dL (0.2-1.0); Glucose Level 120 mg/dL (74-106); Potassium 3.8 mmol/L (3.5-5.1); Protein, Total 6.7 g/dL (6.4-8.2); Sodium Level 138 mmol/L (136-145)
[2021-10-02] MEDS: LORazepam 2 MG/ML VIAL IV PRN ×2 (08:58→23:30)
[2021-10-02] MEDS: D5 0.45 NS 1,000 ML IV SCH ×2 (09:00→21:14)
--- NOTE | 2021-10-02 09:28 | RAD REPORT ---
EXAM DESCRIPTION: RAD - Abdomen 1 View (KUB) - 10/02/2021 6:44 am CLINICAL HISTORY: Abdomen pain. FINDINGS: The bowel gas pattern is unremarkable. Previously described small bowel obstruction appear s resolved Nasogastric tube within gastric fundus.
--- NOTE | 2021-10-02 10:13 | P.PN ---
Subjective Date of Service: 10/02/21 Primary Care Provider: Dr. Dinero Chief Complaint: SBO Subjective: No new changes, No C/O voiced (c/o of sore throat 200cc output overnight) Physical Examination - Vital Signs Temperature: 97.0 F Blood Pressure: 156/74 Pulse: 92 Respirations: 20 Pulse Ox (%): 94 Assessment And Plan Physician Review: Patient Assessed, Agree with Above Assessment and Plan Physician Review Additional Text: - Physical Exam General: Alert, In no apparent distress, Oriented x3, Obese, NG tube in situ HEENT: Atraumatic, PERRLA, Mucous membr. moist/pink, EOMI, Sclerae nonicteric Neck: Supple, 2+ carotid pulse no bruit, No LAD, Without JVD or thyroid abnormality Respiratory: Clear to auscultation bilaterally, Normal air movement Cardiovascular: Regular rate/rhythm, Normal S1 S2 Gastrointestinal: Hypoactive, No rebound, No guarding, still mild generalized abdominal tenderness but much improved Musculoskeletal: No tenderness Integumentary: No rashes Neurological: Normal speech, Normal strength at 5/5 x4 extr, Normal tone, Normal affect - Studies KUB - resoliution of SBO Assessment and Plan SBO with hx of multiple abd surgeries Chronic diastolic CHF HTN Alcohol abuse chronic pain/fibromyalgia Plan: SBO with hx of multiple abd surgeries: KUB much improved, we remove NG tube We will resume patient on clear liquid diet and advance as tolerated White blood cell count trending down, off antibiotics now, likely was reactive If tolerating p.o. intake will later today we will plan for DC home Chronic diastolic CHF: Stable, DC IV fluids monitor volume status closely. HTN: As needed IV antihypertensives. Alcohol abuse: Patient reports that she does not drink daily but does drink frequently will have patient monitored for signs of alcohol withdrawal also with significant anxiety as needed IV Ativan. chronic pain/fibromyalgia: As needed morphine DVT PPX: SCD Code status: FULL Discharge Plan: Home 10/02/21 10:11
--- NOTE | 2021-10-02 10:16 | P.DS ---
Admission Date: 10/01/21 Discharge Date: 10/02/21 Primary Care Provider: Dr. Dinero Disposition: ROUTINE DISCHARGE Discharge Condition: FAIR Reason for Admission: SBO Brief History of Present Illness: History of Present Illness: 61-year-old female with history of hypertension, fibromyalgia with extensive surgical history of the abdomen presents emergency department for margaret sea vomiting and abdominal pain. Patient reports that she is had abdominal pain increasing over the course last 2 days significantly worse today. Patient reports vomiting 6 or 7 times during the day today last normal bowel movement was 2 3 days ago had some diarrhea yesterday. Today patient with significant pain, no bowel movement today has not had any flatus. Patient was evaluated in the emergency department her labs were significant for white blood cell count 14.2 hemoglobin 7.2 hematocrit 52.5 sodium 135 glucose [address] abdomen pelvis with IV contrast demonstrates dilated mid small bowel loops especially along the anterior abdominal wall with no definitive transition point findings may represent a partial small bowel obstruction versus ileus perhaps related to adhesions. Patient has had multiple hernia repairs, a bowel resection hysterectomy etc. Patient with significant abdominal pain 9 out of 10 at this time feeling very nauseous with a distended abdomen, NG tube to be placed. Case was discussed with general surgery by ED provider will admit for further evaluation and management. Hospital Course: Hospital course Patient admitted with partial SBO, placed on NG tube with suction, still had persistent abdominal pain initially after admission. Pain gradually improved with continue n.p.o. status, NG tube effluent trended downwards. Repeat KUB shows resolution of the previously noted partial small bowel obstruction. Patient NG tube was removed she was started on diet and gradually advance. Pain was controlled with pain med regimen. Patient is improving now will be discharged home Physical Examination General: Alert, In no apparent distress, Oriented x3, Obese HEENT: Atraumatic, PERRLA, Mucous membr. moist/pink, EOMI, Sclerae nonicteric Neck: Supple, 2+ carotid pulse no bruit, No LAD, Without JVD or thyroid abnormality Respiratory: Clear to auscultation bilaterally, Normal air movement Cardiovascular: Regular rate/rhythm, Normal S1 S2 Gastrointestinal: Hypoactive, No rebound, No guarding, much resolved abdominal tenderness Musculoskeletal: No pedal edema, no tenderness Integumentary: No rashes, no itching or excoriations Neurological: Normal speech, Normal strength at 5/5 x4 extr, Normal tone, Normal affect Vital Signs/Physical Exam: Temp Pulse Resp BP Pulse Ox 97.0 F 92 H 20 156/74 H 94 10/02/21 10:13 10/02/21 10:13 10/02/21 10:13 10/02/21 10:13 10/02/21 10:13 Laboratory Data at Discharge: WBC 6.90 K/uL (4.3-10.9) D 10/02/21 07:12 Hgb 13.9 g/dL (12.0-15.0) D 10/02/21 07:12 Hct 42.6 % (36.0-45.0) D 10/02/21 07:12 Plt Count 247 K/uL (152-406) 10/02/21 07:12 Sodium 138 mmol/L (136-145) 10/02/21 07:12 Potassium 3.8 mmol/L (3.5-5.1) 10/02/21 07:12 BUN 8 mg/dL (7-18) 10/02/21 07:12 Creatinine 0.41 mg/dL (0.55-1.3) L 10/02/21 07:12 Glucose 120 mg/dL (74-106) H 10/02/21 07:12 Total Bilirubin 0.5 mg/dL (0.2-1.0) 10/02/21 07:12 AST 16 U/L (15-37) 10/02/21 07:12 ALT 17 U/L (12-78) 10/02/21 07:12 Alkaline Phosphatase 86 U/L (45-117) 10/02/21 07:12 Lipase 42 U/L (73-393) L 09/30/21 22:53 Home Medications: Gabapentin [Neurontin*] 800 mg PO TID 09/22/14 Metaxalone 800 mg PO QID 04/26/18 Atorvastatin Calcium 40 mg PO DAILY 12/29/20 Venlafaxine HCl 37.5 mg PO DAILY WITH BREAKFAST 12/29/20 Fluticasone/Umeclidin/Vilanter [Trelegy Ellipta 100-62.5-25] 1 each IH DAILY #30 blst.w.dev 12/31/20 Albuterol Neb [Proventil 0.083% Neb Soln] 2.5 mg NEB [id number] PRN amp 01/11/21 Amlodipine [Norvasc*] 10 mg PO DAILY tab 01/11/21 Diet: AHA Activity: Ad vernell Followup: Unknown,U [Primary Care Provider] - Physician Review: Patient Assessed, Agree with Above Assessment and Plan Time spent managing pt's care (in minutes): 35
[2021-10-02] MEDS: METAXALONE 800 MG TAB PO SCH ×3 (12:46→21:12)
[2021-10-02] MEDS: ONDANSETRON 4 MG/2 ML VIAL IV PRN (12:50)
[2021-10-02] MEDS: GABAPENTIN 400 MG CAP PO SCH ×2 (13:28→21:13)
[2021-10-02] MEDS: ALBUTEROL 2.5 MG/3 ML NEB SOL NEB PRN (23:15)
[2021-10-03] MEDS: MORPHINE 4 MG/ML SYR IV PRN ×5 (01:31→20:36)
[2021-10-03 04:51] LABS: Hematocrit 40.4 % (36.0-45.0); Lymphocytes % 28.9 % (15.3-44.8); MPV 7.2 fL (7.6-11.3); RBC Red Blood Cell Count 4.53 M/uL (3.86-4.86)
[2021-10-03 05:05] LABS: ALT/SGPT 16 U/L (12-78); AST/SGOT 13 U/L (15-37); Alkaline Phosphatase 84 U/L (45-117); BUN Blood Urea Nitrogen 3 mg/dL (7-18); Bicarbonate 30 mmol/L (21-32); Bilirubin Total 0.3 mg/dL (0.2-1.0); Glucose Level 114 mg/dL (74-106); Potassium 3.6 mmol/L (3.5-5.1); Protein, Total 6.8 g/dL (6.4-8.2); Sodium Level 136 mmol/L (136-145)
[2021-10-03] MEDS: D5 0.45 NS 1,000 ML IV SCH ×3 (05:39→23:37)
--- NOTE | 2021-10-03 07:01 | RAD REPORT ---
EXAM DESCRIPTION: RAD - Abdomen 1 View (KUB) - 10/03/2021 6:00 am CLINICAL HISTORY: sbo COMPARISON: Abdomen 1 View (KUB) dated 10/02/2021; Abdomen 1 View (KUB) dated 04/26/2018 FINDINGS: Bowel gas pattern is non-specific. Stomach is decompressed. Air and stool are present in nondilated colon pattern similar to the prior study. A few prominent small bowel loops are present no t abnormally dilated. This pattern also matches comparison. No suspicious calcifications. No significant bony findings IMPRESSION: No plain film findings for recurrent or persistent small-bowel obstruction. Visualized b owel loops are normal in diameter. No free air or pneumatosis.
[2021-10-03] MEDS: ONDANSETRON 4 MG/2 ML VIAL IV PRN ×3 (08:12→20:38)
[2021-10-03] MEDS: Fluticasone/Umeclidin/Vilanter (Trelegy Ellipta) 100-62.5-25 Blst.W.Dev IH SCH (09:00)
[2021-10-03] MEDS: GABAPENTIN 400 MG CAP PO SCH ×3 (09:00→20:39)
[2021-10-03] MEDS: ATORVASTATIN 40 MG TAB PO SCH (09:00)
[2021-10-03] MEDS ORDERED: POTASSIUM 25 MEQ EFFERV TAB PO ONE (09:00)
--- NOTE | 2021-10-03 11:02 | PN ---
Date of Progress Note: 10/03/2021 Diagnosis: Abdominal pain. Subjective: This is the case of a 61-year-old patient with history of bowel obstructions in the past , came to us with a differential diagnosis between bowel obstruction and ileus. The x-rays today loo ks better. She is starting to tolerate clear liquid diet, but she has not passed any flatus yet toda y. She is still complaining of abdominal pain. Objective: Chest: Clear. Abdomen: Softly distended, still generalized mild abdominal pain. No peritonitis. Extremities: Good capillary refill. Laboratory Data: Blood work shows a WBC count of 7, platelets 252. The x-ray interpreted by Dr. Nicanor vincent today radiologist shows no evidence of bowel obstruction and no distended bowel. Assessment: It is a 61-year-old patient with history of abdominal pain, 23 surgeries in the past as per the patient. Came in with abdominal pain. It is still there, better at this moment. X-rays imp roved, but still clinically she has abdominal pain. She is trying some clear liquid diet. She is am bulating. She has not passed flatus today yet. From the surgical standpoint, we have no plans at th is moment to do surgical intervention, let us see how she does with ambulation and diet. We explaine d to her the need also for her to follow with her photo specialist. AMARIS/RAINA Voice ID: [id number] Report ID: [id number]
[2021-10-03] MEDS: AMLODIPINE 10 MG TAB PO SCH (11:08)
[2021-10-03] MEDS: LORazepam 2 MG/ML VIAL IV PRN ×3 (11:24→20:39)
[2021-10-03] MEDS: METAXALONE 800 MG TAB PO SCH ×4 (11:45→20:42)
[2021-10-03] MEDS: VENLAFAXINE HCL 37.5 MG TAB PO SCH (11:45)
[2021-10-03] MEDS: ALBUTEROL 2.5 MG/3 ML NEB SOL NEB PRN (13:58)
--- NOTE | 2021-10-03 23:05 | P.PN ---
Subjective Date of Service: 10/03/21 Subjective: No new changes, No C/O voiced PATIENT NOT WAS HAVING ANY FLATUS OR A BOWEL MOVEMENT AT THIS TIME. CONTINUES TO HAVE A SMALL-BOWEL OBSTRUCTION. Review of Systems 10-point ROS is otherwise unremarkable Physical Examination - Vital Signs Temperature: 97.2 F Blood Pressure: 130/62 Pulse: 96 Respirations: 18 Pulse Ox (%): 90 - Physical Exam General: Alert, In no apparent distress HEENT: Atraumatic, PERRLA, EOMI Neck: Supple, JVD not distended Respiratory: Clear to auscultation bilaterally, Normal air movement Cardiovascular: Regular rate/rhythm, Normal S1 S2 Gastrointestinal: No tenderness, No rebound, No guarding, Absent bowel sounds Musculoskeletal: No tenderness Integumentary: No rashes Neurological: Normal speech, Normal tone, Normal affect Lymphatics: No axilla or inguinal lymphadenopathy - Studies Medications List Reviewed: Yes Assessment & Plan - Problems (Diagnosis) (1) SBO (small bowel obstruction) Current Visit: Yes Status: Acute (2) Alcohol abuse Current Visit: No Status: Acute (3) CHF (congestive heart failure) Current Visit: No Status: Acute Qualifiers: Heart failure type: unspecified Heart failure chronicity: unspecified Qualified Code(s): I50.9 - Heart failure, unspecified (4) COPD (chronic obstructive pulmonary disease) Current Visit: No Status: Acute Qualifiers: COPD type: unspecified COPD Qualified Code(s): J44.9 - Chronic obstructive pulmonary disease, unspecified (5) COPD exacerbation Current Visit: No Status: Acute (6) Chronic diastolic (congestive) heart failure Current Visit: No Status: Acute (7) Sleep apnea Current Visit: No Status: Acute (8) Tobacco abuse Current Visit: No Status: Acute (9) Obesity hypoventilation syndrome Current Visit: No Status: Chronic - Plan PLAN: 1. NPO 2. IV FLUIDS 3. ANTIBIOTICS 4. SURGERY CONSULTATION 5. CONSERVATIVE MANAGEMENT 6. REPEAT X-RAYS 7. REPEAT ELECTROLYTES 8. GI AND DVT PROPHYLAXIS Discharge Plan: Home Plan to discharge in: Greater than 2 days - Advance Directives Does patient have a Living Will: No Does patient have a Durable POA for Healthcare: No - Code Status/Comfort Care Code Status Assessed: Yes Code Status: Full Code Physician Review: Patient Assessed, Agree with Above Assessment and Plan Critical Care: No Time Spent Managing PTS Care (In Minutes): 35
[2021-10-03] MEDS ORDERED: METOCLOPRAMIDE 10 MG/2mL INJ IV ONE (23:45)
[2021-10-04] MEDS: ZOLPIDEM TARTRATE 10 MG TABLET PO PRN ×2 (00:28→20:54)
[2021-10-04] MEDS: MORPHINE 4 MG/ML SYR IV PRN ×4 (00:59→18:12)
[2021-10-04] MEDS: LORazepam 2 MG/ML VIAL IV PRN ×3 (01:00→18:11)
[2021-10-04 06:44] LABS: Absolute Lymphocytes (CBC) 1.9 K/uL (0.7-4.9); Hematocrit 38.1 % (36.0-45.0); Lymphocytes % 33.2 % (15.3-44.8); MPV 6.9 fL (7.6-11.3); RBC Red Blood Cell Count 4.36 M/uL (3.86-4.86)
[2021-10-04 07:01] LABS: ALT/SGPT 25 U/L (12-78); AST/SGOT 21 U/L (15-37); Alkaline Phosphatase 85 U/L (45-117); BUN Blood Urea Nitrogen 3 mg/dL (7-18); Bicarbonate 31 mmol/L (21-32); Bilirubin Total 0.3 mg/dL (0.2-1.0); Glucose Level 124 mg/dL (74-106); Protein, Total 6.6 g/dL (6.4-8.2); Sodium Level 137 mmol/L (136-145)
[2021-10-04] MEDS: VENLAFAXINE HCL 37.5 MG TAB PO SCH (08:00)
--- NOTE | 2021-10-04 08:43 | RAD REPORT ---
EXAM DESCRIPTION: RAD - Abdomen W Erect - 10/04/2021 6:17 am CLINICAL HISTORY: sbo Pain COMPARISON: Abdomen 1 View (KUB) dated 10/03/2021 FINDINGS: Gas dilated loops of small and large intestine are seen in a relatively an organized fashi on more suggestive of adynamic ileus than obstruction. No free air seen.
[2021-10-04] MEDS: Fluticasone/Umeclidin/Vilanter (Trelegy Ellipta) 100-62.5-25 Blst.W.Dev IH SCH (09:00)
[2021-10-04] MEDS: GABAPENTIN 400 MG CAP PO SCH ×3 (09:03→20:27)
[2021-10-04] MEDS: METAXALONE 800 MG TAB PO SCH ×4 (09:04→20:28)
[2021-10-04] MEDS: ATORVASTATIN 40 MG TAB PO SCH (09:06)
[2021-10-04] MEDS: AMLODIPINE 10 MG TAB PO SCH (09:15)
[2021-10-04] MEDS: D5 0.45 NS 1,000 ML IV SCH ×2 (09:15→20:27)
[2021-10-04] MEDS ORDERED: METOCLOPRAMIDE 10 MG/2mL INJ IV SCH (17:00)
[2021-10-04] MEDS ORDERED: LACTULOSE 20 GM/30 ML UCUP PO ONE (18:00)
[2021-10-04] MEDS: ALBUTEROL 2.5 MG/3 ML NEB SOL NEB PRN (20:19)
[2021-10-04] MEDS: ONDANSETRON 4 MG/2 ML VIAL IV PRN (20:27)
[2021-10-04] MEDS: QUETIAPINE 25 MG TAB PO SCH (20:54)
[2021-10-04] MEDS ORDERED: QUETIAPINE 25 MG TAB PO SCH (21:00)
[2021-10-04 21:04] VITALS: O2SAT 98
[2021-10-05] MEDS: MORPHINE 4 MG/ML SYR IV PRN (03:50)
[2021-10-05] MEDS: LORazepam 2 MG/ML VIAL IV PRN (04:15)
[2021-10-05] MEDS: D5 0.45 NS 1,000 ML IV SCH (05:10)
[2021-10-05 06:00] VITALS: TEMP 97.5
[2021-10-05 06:05] LABS: Absolute Lymphocytes (CBC) 1.6 K/uL (0.7-4.9); Hematocrit 38.6 % (36.0-45.0); Lymphocytes % 27.4 % (15.3-44.8); MPV 7.1 fL (7.6-11.3); RBC Red Blood Cell Count 4.32 M/uL (3.86-4.86)
[2021-10-05 06:29] LABS: ALT/SGPT 23 U/L (12-78); AST/SGOT 19 U/L (15-37); Albumin 2.9 g/dL (3.4-5.0); Alkaline Phosphatase 78 U/L (45-117); Bicarbonate 32 mmol/L (21-32); Bilirubin Total 0.2 mg/dL (0.2-1.0); Glucose Level 181 mg/dL (74-106); Potassium 3.8 mmol/L (3.5-5.1); Protein, Total 6.1 g/dL (6.4-8.2); Sodium Level 139 mmol/L (136-145)
[2021-10-05 06:30] LABS: BUN Blood Urea Nitrogen < 3 mg/dL (7-18)
[2021-10-05] MEDS ORDERED: POTASSIUM CL SA 10 MEQ TAB PO ONE (09:00)
[2021-10-05 09:58] VITALS: BP 157/86
[2021-10-05] MEDS: METAXALONE 800 MG TAB PO SCH (10:04)
[2021-10-05] MEDS: AMLODIPINE 10 MG TAB PO SCH (10:05)
[2021-10-05] MEDS: QUETIAPINE 25 MG TAB PO SCH (10:05)
[2021-10-05] MEDS: GABAPENTIN 400 MG CAP PO SCH (10:06)
--- NOTE | 2021-10-05 11:08 | PN ---
Date of Progress Note: 10/05/2021 Diagnosis: Abdominal pain, ileus. Subjective: This is the case of a 61-year-old patient with chronic abdominal pain, who comes to us w ith an abdominal imaging trying to rule out obstruction versus ileus. She has been improving. She i s still having abdominal pain. She always have it. She has 23 surgeries in her body in the past inc luding multiple in the abdomen. Today, she has not passed any gas, although the abdomen is softer. Objective: Chest: Clear. Abdomen: Soft and depressible. Mild distention. Mild tenderness. No rebound. Extremities: Good capillary refill. Laboratory Data: WBC count of 5.7, hemoglobin of 12.6. X-rays were reviewed today. Findings consis tent with chronic ileus. Plan: Advance diet slowly. Ambulation. HM/MODL Voice ID: [id number] Report ID: [id number]
== END 2021-10-05 10:58 | disposition home or self-care (01) | DRG 389 ==
LOC: ER 22:36 → ERHOLD 10-01 01:49 → 2ND 10-01 02:54
PROVIDERS: ADMIT Internal Medicine; ATTEND Internal Medicine
DX: K56.600 Partial intestinal obstruction, unspecified as to cause (principal); E66.2 Morbid (severe) obesity with alveolar hypoventilation; I50.32 Chronic diastolic (congestive) heart failure; I10 Essential (primary) hypertension; M79.7 Fibromyalgia; Z68.37 Body mass index [BMI] 37.0-37.9, adult; K56.7 Ileus, unspecified; F10.10 Alcohol abuse, uncomplicated; I11.0 Hypertensive heart disease with heart failure; F17.210 Nicotine dependence, cigarettes, uncomplicated; Z91.040 Latex allergy status; Z88.0 Allergy status to penicillin; Z20.822 Contact with and (suspected) exposure to COVID-19
CPT/HCPCS: 36415; 71045; 74018; 74019; 74177; 80048; 80053; 80076; 81003; 81015; 83690; 83735; 85025; 96361; 96365; 96375; 99285; J2405; J2543; J2765; J3480; J7799; Q9967; U0003

== ENCOUNTER 2021-10-09 13:45 | Emergency (ER) | payer OTHER ==
--- OUTSIDE RECORDS SUMMARY | 2021-10-09 13:56 | XMS REPORT | Continuity of Care Document ---
:1960 Author Organization [facility] t Address [address] [place] [address] Care Team Providers Name Role Phone Susie Leblanc Attending Clinician Unavailable [id number] Attending Clinician Unavailable Yusra Dinero Attending Clinician Unavailable Rachel Attending Clinician Unavailable LALITO Attending Clinician Unavailable Doctor Unassigned, Name Attending Clinician Unavailable Ramón DO Attending Clinician Hany COPELAND Attending Clinician Tylor Sandoval MD Attending Clinician RAMÓN Attending Clinician Unavailable RAMÓN Attending Clinician Unavailable OMRANIAN Attending Clinician Unavailable Susie Leblanc Admitting Clinician Unavailable [id number] Admitting Clinician Unavailable Hany COPELAND Admitting Clinician OMRANIAN Admitting Clinician Unavailable Payers Payer Name Policy Type Policy Number Effective Date Expiration Date [place] [id number] MEDICARE PART A [id number] 2011 \\T\\ B 00:00:00 Problems Condition Condition [...] (BMI 0-09 ity of 30-39.9) 30-39.9) 00:00: [place] [facility] NSTEMI NSTEMI Disease Active Univers [...] 9-18 it y of c c 00:00: [place] respirator respirator 00 Me dical y failure y failure Bran ch Acute Acute Disease Active Univers encephalop encephalop 9-18 it y of athy athy 00:00: [place] [facility] Alcohol Alcohol Disease Active Univers abuse abuse 9-18 ity of 00:00: [place] [facility] Acute Acute Disease Active Univers liver liver 9-14 ity of failure failure 00:00: [place] without without 00 Medical hepatic hepatic Branch coma coma ENRIQUE (acute ENRIQUE (acute Disease Active U nivers kidney kidney 9-14 ity of injury) injury) 00:00: [place] [facility] Other Other Disease Active Univers chronic chronic 9-14 ity of pain pain 00:00: [place] 00 Medical Branch Left Left Problem Active Univers shoulder shoulder ity of pain pain [place] [facility] Closed Closed Problem Active Univers nondisplac nondisplac it y of ed ed [place] fracture fracture Physic i of greater of greater an s tuberosity tuberosity of left of left humerus, humerus, initial initial encounter encounter Closed Closed Problem Active Univers nondisplac nondisplac it y of ed ed [place] fracture fracture Physic i of greater of [...] Active Univers ALLERGIE Class ity of S [facility] Social History Social Habit Start Date Stop Date Quantity Comments Source Sex Assigned At Universit y of [facility] Exposure to Not sure [facility] SARS-CoV-2 (event) [facility] Cigarettes smoked 2020-05-23 2020-05-23 Univers ity of current (pack per 00:00:00 00:00:00 ) - Reported Branch Cigarette 2020-05-23 2020-05-23 University of pack-years 00:00:00 00:00:00 [facility] Tobacco use and 2020-05-23 2020-05-23 Never used Universit y of exposure 00:00:00 00:00:00 [facility] Alcohol intake 2020-05-23 2020-05-23 Current drinker Unive rsity of 00:00:00 00:00:00 of alcohol [place] [facility] (finding) Branch History SDOH 2020-05-20 2020-05-20 99 University o f Alcohol Binge 00:00:00 00:00:00 [place] [facility] al [facility] History SDOH 2020-05-20 2020-05-20 3 University o f Financial 00:00:00 00:00:00 [place] [facility] History SDOH Food 2020-05-20 2020-05-20 1 Univers ity of Worry 00:00:00 00:00:00 [facility] Branch History SDGA Food 2020-05-20 2020-05-20 1 Univers ity of Scarcity 00:00:00 00:00:00 [facility] Branch Tobacco Comment 2020-05-20 2020-05-20 4-5 Universit y of 00:00:00 00:00:00 cigarettes/day [place] Medi josé Branch History SDOH 2020-05-20 2020-05-20 5 University o f Alcohol Frequency 00:00:00 00:00:00 [place] M edical Branch History SDGA 2020-05-20 2020-05-20 2 University o f Alcohol Std Drinks 00:00:00 00:00:00 [facility] Branch Smoking Status Start Date Stop Date Source Smoker, current status 2020-05-23 00:00:00 Unive rsity of [facility] unknown Branch Medications Ordered Filled Start Stop Current Ordering Indication Dosage Frequency Signature Comments Components Source Medication Medication Date Date Medication? Clinician (SIG) Name Name thiamine 2019-08- No [id number] 100mg Take 1 Univers 100 mg 0-15 [...] 100 mg 00 First dose Medical on [facility] 05/26/20 at 0900, Until Discontinu ed, Routine KCL 2019-08- No 40meq 40 mEq, Univers (KLOR-CON 0-14 10-14 Oral, ity of M20) tablet 13:30: 19:20 ONCE, 1 [place] 40 mEq 00 :00 dose, [facility] 05/26/20 Branch at 0830, Routine melatonin 2019-08 Yes 3mg 3 mg, Univers (MELATIN) 0-14 Oral, ity of tablet 3 mg 06:32: QHSPRN, [place] [address] [facility] 05/26/20 at 0132, Until Discontinu ed, [...] Until Discontinu ed, Routine gabapentin 2019-08 Yes [id number] 400mg Take 1 Univers 400 mg 0-14 9107 capsule by ity of capsule 00:00: mouth 3 [place] 00 (three) Medical times Branch daily. metoprolol 2019-08 Yes [id number] 25mg Take 1 Univers succinate 0-14 9107 tablet by ity o f XL 25 mg 24 00:00: mouth [place] hr tablet 00 daily. Medical Branch pantoprazol 2019-08 Yes [id number] 40mg Take 1 Univers e 40 mg EC 0-14 9107 tablet by ity of tablet 00:00: mouth [place] 00 daily. Medical Branch Polyethylen 2019-08 Yes [id number] 17g Take 1 Univers e Glycol 0-14 9107 Packet by ity of 3350 17 00:00: mouth 3 [place] gram powder 00 (three) Medic al times Branch daily. sennosides- 2019-08 Yes [id number] 1{tbl} Take 1 Univers docusate 0-14 9107 tablet by ity of sodium 00:00: mouth 2 [place] 8.6-50 mg 00 (two) Medical per tablet times Branch daily. hydroCHLORO 2019-08 Yes [id number] 12.5mg Take 1 Univers thiazide 0-14 9107 capsule by ity o f 12.5 mg 00:00: mouth [place] capsule 00 daily. Medical Branch doxycycline 2019-08 Yes [id number] 100mg Take 1 Univers hyclate 100 0-14 [...] 00 bedtime. Medical Branch gabapentin 2019-08 Yes [id number] 400mg Take 1 Univers 400 mg 0-14 9107 capsule by ity of capsule 00:00: mouth 3 [place] 00 (three) Medical times Branch daily. metoprolol 2019-08 Yes [id number] 25mg Take 1 Univers succinate 0-14 9107 tablet by ity o f XL 25 mg 24 00:00: mouth [place] hr tablet 00 daily. Medical Branch pantoprazol 2019-08 Yes [id number] 40mg Take 1 Univers e 40 mg EC 0-14 9107 tablet by ity of tablet 00:00: mouth [place] 00 daily. Medical Branch Polyethylen 2019-08 Yes [id number] 17g Take 1 Univers e Glycol 0-14 9107 Packet by ity of 3350 17 00:00: mouth 3 [place] gram powder 00 (three) Medic al times Branch daily. sennosides- 2019-08 Yes [id number] 1{tbl} Take 1 Univers docusate 0-14 9107 tablet by ity of sodium 00:00: mouth 2 [place] 8.6-50 mg 00 (two) Medical per tablet times Branch daily. hydroCHLORO 2019-08 Yes [id number] 12.5mg Take 1 Univers thiazide 0-14 9107 capsule by ity o f 12.5 mg 00:00: mouth [place] capsule 00 daily. Medical Branch doxycycline 2019-08 Yes [id number] 100mg Take 1 Univers hyclate 100 0-14 [...] by ity of tablet 00:00: mouth at [place] 00 bedtime. Medical Branch ipratropium 2019-08 Yes .5mg 0.5 mg, Uni vers (ATROVENT) 0-13 Inhalation ity of 0.02 % 19:00: , TID, [place] nebulizer 00 First dose Medi josé solution [...] 0-13 Oral, ity of (ESIDRIX) 18:45: DAILY, [place] capsule 00 First dose Medica l 12.5 [...] ity of (Vibramycin 11:00: 10:59 Q12HA2, 8 [place] ) capsule 00 :00 doses, Medical 100 [...] dose Medi josé powder 17 g on [facility] 05/24/20 at 0900, Until Discontinu ed, Routine [...] NOW, 1 [place] 00 :00 dose, [facility] 05/24/20 Branch at 0115, Routine acetaminoph 2019-08 Yes 650mg 650 mg, Un urszula en 0-11 Oral, ity of (TYLENOL) 17:41: Q6HPRN, [place] tablet 650 53 Starting Medic al mg [facility] 05/23/20 at 1241, Until Discontinu ed, Routine, Pain (scale 4-6), Temp > 38.5 C acetaminoph 2019-08 Yes 1{tbl} 1 tablet, Univers en-codeine 0-11 Oral, ity of (TYLENOL 17:41: Q6HPRN, [place] #3) 300-30 44 Starting Medic al mg tablet 1 [facility] tablet 05/23/20 at 1241, Until Discontinu ed, Routine, Pain (scale 7-10) vancomycin 2019-08- No 1500mg 1,500 mg, Univers 1500 mg in 005-24 IV ity of NS 500 mL 17:24: 13:56 Piggyback, [place] IV 00 :07 Q24H ABX, Medical Piggyback First dose Bran ch RTU 1,500 (after mg last modificati on) on [facility] 05/23/20 at 1230, Until Discontinu ed
Reas on for Anti-Infec tive: Documented Infection< br>Documen nava Infection Site: Blood
D uration of Therapy: 14 days metoprolol 2019-08 Yes 25mg 25 mg, Unive rs succinate 0-11 Oral, ity of XL (TOPROL 14:00: DAILY, [place] XL) tablet 00 First dose Med ical 25 mg on [facility] 05/23/20 at 0900, Until Discontinu ed, Routine pantoprazol 2019-08- No 40mg 40 mg, Uni vers e 005-25 Oral, ity of (PROTONIX) 14:00: 14:00 DAILY, [place] EC tablet 00 :27 First dose Medi josé 40 mg on [facility] 05/23/20 at 0900, Until Discontinu ed, Routine HYDROcodone 2019-08 2020- No 1{tbl} 1 tablet, Univers -acetaminop 0-11 -11 Oral, ity of hen (NORCO 13:55: 17:42 Q6HPRN, [place] 5) 5-325 mg 49 :03 Starting Medi josé tablet 1 [facility] tablet 05/23/20 at 0855, Until 05/23/20 at 1242, Routine, Pain (scale 7-10) vancomycin 2019-08 2020- No 15mg/kg 1,500 mg Univers 1500 mg in 010 11 (rounded ity of NS 500 mL 17:45: 12:25 from 1,380 [place] IV 00 :20 mg = 15 Medical Piggyback mg/kg ?92 Branc h RTU 1,500 kg), IV mg Piggyback, Q24H ABX, First dose on [facility] 05/22/20 at 1245, Until Discontinu ed
Reas on for Anti-Infec tive: Documented Infection< br>Documen nava Infection Site: Blood
D uration of Therapy: 14 days KCL 2019-08- No 30meq 30 mEq, IV Unive rs (POTASSIUM 0-10 10-10 [place], it y of CHLORIDE) 09:30: 08:57 ONCE, 1 [place] 30 mEq in 00 :00 dose, [facility] Medic al NaCl 0.9% 05/22/20 [place] () at 0430, piggyback 250 mL QUEtiapine 2019-08 Yes 50mg 50 mg, Unive rs (SEROQUEL) 0-10 Oral, QHS, ity of tablet 50 02:00: First dose [place] mg 00 on [facility] 05/21/20 at Branch 2100, Until Discontinu ed, Routine gabapentin 2019-08- No 300mg 300 mg, Un urszula (NEURONTIN) 0-10 10-12 Oral, BID, i ty of capsule 300 01:30: 13:55 First dose [place] mg 00 :11 on [facility] 05/21/20 at Branch 2030, Until Discontinu ed, Routine guaiFENesin 2019-08 Yes 200mg 200 mg, Un urszula 100 mg/5 mL 0-10 Oral, ity of solution 01:14: Q4HPRN, [place] 200 mg 34 [facility] 05/[facility]/20 at 2014, Until Discontinu ed, [...] dose, [place] Medic al solution 05/20/20 at [facility] h 0.5 mg 2230, Routine lactated [...] of 0.02 % 02:30: 12:43 , Q6HPRN, [place] nebulizer 42 :23 Starting Medica l solution [facility] 0.5 mg 05/20/20 at 2130, Until 05/24/20 at 0743, Routine, Wheezing, Shortness of Breath nystatin 2019-08 Yes Topical, Unive rs (NYSTOP) 0-09 BID, First ity o f powder 02:30: dose on [facility] Medical 05/20/20 at Branch 213, Until Discontinu ed, Routine oxazepam 2019-08- No 30mg 30 mg, Univer s (SERAX) 0-14 Oral, ity of capsule 30 02:22: 11:13 Q6HPRN, [place] mg 01 :02 Starting Medical [facility] Branch 05/20/20 at 2122, Until Sun05/26/20 at 0613, Routine, Anxiety, Hypertensi on, signs of withdrawal . Please NHO if given so taper can be started. proMETHazin 2019-08 Yes 25mg 25 mg, IV U nivers e 0 Piggyback, ity of (PHENERGAN) 02:17: Q4HPRN, [place] 25 mg in 21 Starting Medical NaCl 0.9% [facility] Branch (NS) 50 mL 05/20/20 at piggyback 2116, Until Discontinu ed, 50 mL benzocaine- 2019-08 Yes 1{lozen 1 Lozenge, Univers menthoL 0-09 ge} Oral, ity of (CEPACOL 02:16: Q4HPRN, [place] SORE THROAT 23 Starting Medi josé (MIA-MEN)) [facility] Branch lozenge 1 05/20/20 at Lozenge [...] mouth 2 ity of tablet 00:00: (two) [place] 00 times Medical daily. Branch lisinopriL- 2020- [...] A ent DAY Clinics NEEDED FOR ANXIETY. [place] TAKE ONE [facility] Carbonate [...] Immunizations Ordered Filled Immunization Date Status Comments [facility] e Immunization Name Name Influenza Virus 2018-10-07 Completed Universit y of Vaccine 00:00:00 [facility] Pneumococcal 13 2018-10-07 Completed Universit y of Conjugate, PCV13 00:00:00 [facility] dical (Prevnar 13) Branch Influenza Virus 2018-10-07 Completed Universit y of Vaccine 00:00:00 [facility] Pneumococcal 13 2018-10-07 Completed Universit y of Conjugate, PCV13 00:00:00 [facility] dical (Prevnar 13) [place] Vital Signs Vital Name Observation Time Observation Value Comments Source Systolic blood 2020-05-26 20:58:00 155 mm[Hg] Univer sity [facility] Diastolic blood 2020-05-26 20:58:00 78 mm[Hg] Unive rsity [facility] Heart rate 2020-05-26 20:58:00 79 /min [facility] Body temperature 2020-05-26 20:58:00 37.28 Dee Dee [facility] Respiratory rate 2020-05-26 20:58:00 18 /min [facility] Oxygen saturation in 2020-05-26 20:58:00 94 /min [facility] Arterial blood by [facility] Pulse oximetry Branch Body height 2020-05-21 02:30:00 160 cm [facility] Body weight 2020-05-21 02:30:00 92 kg [facility] BMI 2020-05-21 02:30:00 35.93 kg/m2 [facility] Systolic blood 2020-05-26 20:58:00 155 mm[Hg] Univer sity of pressure [facility] Diastolic blood 2020-05-26 20:58:00 78 mm[Hg] Unive rsity [facility] Heart rate 2020-05-26 20:58:00 79 /min [facility] Body temperature 2020-05-26 20:58:00 37.28 Dee Dee [facility] Respiratory rate 2020-05-26 20:58:00 18 /min [facility] Oxygen saturation in 2020-05-26 20:58:00 94 /min [facility] blood by [facility] Pulse oximetry [place] Body height 2020-05-21 02:30:00 160 cm [facility] Body weight 2020-05-21 02:30:00 92 kg [facility] BMI 2020-05-21 02:30:00 35.93 kg/m2 [facility] Procedures Procedure Date / Time Performing Clinician Source Performed INSURANCE CORRESPONDENCE 2020-08-16 06:01:00 Doctor Unassigned, [facility] [place] [facility] BASIC METABOLIC PANEL 2020-05-26 10:08:00 [facility] (NA, K, CL, CO2, GLUCOSE, Medica l Branch BUN, CREATININE, CA) CBC WITH DIFF 2020-05-26 10:08:00 Mihai [facility] MAGNESIUM 2020-05-25 08:50:00 Mihai [facility] BASIC METABOLIC PANEL 2020-05-25 08:50:00 [facility] (NA, K, CL, CO2, GLUCOSE, Medica l Branch BUN, CREATININE, CA) CBC WITH DIFF 2020-05-25 08:50:00 Mihai [facility] POCT GLUCOSE (AUTOMATED) 2020-05-24 22:30:00 Andrea Sandoval [facility] VANCOMYCIN RANDOM LEVEL 2020-05-24 18:50:00 Kwaku Khan [facility] MAGNESIUM 2020-05-24 09:32:00 Merced Holm [facility] BASIC METABOLIC PANEL 2020-05-24 09:32:00 [facility] (NA, K, CL, CO2, GLUCOSE, Medica l Branch BUN, CREATININE, CA) VANCOMYCIN RANDOM LEVEL 2020-05-24 09:32:00 Kwaku Khan [facility] VANCOMYCIN TROUGH 2020-05-23 18:05:00 Murray Bright [facility] MAGNESIUM 2020-05-23 08:59:00 [facility]IC MET[facility]OLIC PANEL 2020-05-23 08:59:[address] [facility] (NA, K, CL, CO2, GLUCOSE, Medica l Branch BUN, CREATININE, CA) CBC WITH DIFF 2020-05-23 08:59:00 Mihai [facility] CLOSTRIDIUM DIFFICILE 2020-05-23 08:37:00 Keira Briceno [facility] TOXIN [facility] CBC WITHOUT DIFF 2020-05-22 15:12:00 Maximus [facility] MAGNESIUM 2020-05-22 07:22:00 Mihai [facility] BASIC METABOLIC PANEL 2020-05-22 07:22:[address] [facility] (NA, K, CL, CO2, GLUCOSE, Medica l Branch BUN, CREATININE, CA) CBC WITH DIFF 2020-05-22 07:22:00 Mihai [facility] VANCOMYCIN RANDOM LEVEL 2020-05-22 02:46:[address] [facility] BLOOD CULTURE SCREEN 2020-05-22 02:36:00 Mihai [facility] BLOOD CULTURE SCREEN 2020-05-22 02:35:00 Mihai [facility] CT SHOULDER LEFT WO 2020-05-21 23:54:32 Darnell Chau [facility] CBC WITHOUT DIFF 2020-05-21 23:21:00 Maximus [facility] CREATINE KINASE 2020-05-21 20:42:00 Kaila [facility] ECHO ROUTINE W/DOPPLER 2020-05-21 15:19:59 Scott, [facility] COLOR [facility] XR ELBOW <3 VW LEFT 2020-05-21 14:51:45 Darnell Chau [facility] XR FEMUR 2 VW LEFT 2020-05-21 14:51:45 Darnell Chau [facility] XR HUMERUS 2 VW LEFT 2020-05-21 14:51:45 Darnell Chau [facility] XR SHOULDER <2 VW LEFT 2020-05-21 14:51:[address] [facility] VITAMIN B1 (THIAMINE), 2020-05-21 08:31:00 [facility] WHO[facility]LOOD [facility] CREATINE KINASE 2020-05-21 08:30:[address] [facility] MAGNESIUM 2020-05-21 08:30:00 [facility] TROPONIN I 2020-05-21 08:30:00 [facility] BASIC METABOLIC PANEL 2020-05-21 08:30:00 [facility] (NA, K, CL, CO2, GLUCOSE, Medica l Branch BUN, CREATININE, CA) CBC WITH DIFF 2020-05-21 08:30:00 [facility] MRSA / MSSA SCREEN BY 2020-05-21 08:30:00 [facility], [facility] XR HIPS 2 VW LEFT 2020-05-21 05:46:58 [facility] XR SHOULDER 2+ VW LEFT 2020-05-21 03:22:00 [facility] EKG-12 LEAD 2020-05-21 02:53:38 [facility] MAGNESIUM 2020-05-21 01:41:00 [facility] TROPONIN I 2020-05-21 01:41:00 Keon Mercer [facility] HEPATIC FUNCTION PANEL 2020-05-21 01:41:00 [facility] ([id number]) (ALB,T.PRO,BILI Medical Branch T,BU/BC,ALT,AST,ALK PHOS) PHOSPHORUS 2020-05-20 23:33:00 Scott, [facility] CREATINE KINASE 2020-05-20 23:33:00 [facility] LIPASE 2020-05-20 23:33:00 Scott, [facility] MAGNESIUM 2020-05-20 23:33:00 Scott, [facility] VITAMIN B12, LEVEL 2020-05-20 23:33:00 Merced Holm [facility] FOLATE 2020-05-20 23:33:00 Mihai [facility] THYROID STIMULATING 2020-05-20 23:33:00 [facility] BASIC METABOLIC PANEL 2020-05-20 23:33:00 [facility] (NA, K, CL, CO2, GLUCOSE, Medica l Branch BUN, CREATININE, CA) CBC WITH DIFF 2020-05-20 23:33:00 [facility] D-DIMER 2020-05-20 23:33:00 Scott, [facility] FIBRINOGEN 2020-05-20 23:33:00 Scott, [facility] URINALYSIS 2020-05-20 23:33:00 Scott, [facility] URINE CULTURE 2020-05-20 23:33:00 Scott, [facility] CREATININE, URINE RANDOM 2020-05-20 23:33:00 Scott, [facility] UREA NITROGEN, URINE 2020-05-20 23:33:00 Scott, [facility] PROCALCITONIN 2020-05-20 23:33:00 Scott, [facility] ID INSERT NON-TUNNEL CV 2020-05-20 23:30:25 Emmanuelle Melgar [facility] ACUTE CARE VENOUS BLOOD 2020-05-20 23:01:00 Emmanuelle Melgar [facility] GAS [facility] N-TERMINAL PRO-BNP 2020-05-20 22:53:00 Arnel [facility] XR CHEST 1 VW 2020-05-20 22:39:[address] [facility] EKG-12 LEAD 2020-05-20 22:34:28 [facility] BLOOD CULTURE SCREEN 2020-05-20 22:27:00 Ramón, ArnelDonta [facility] BLOOD CULTURE WORKUP 2020-05-20 22:27:00 Ramón, [facility] BLOOD CULTURE WORKUP 2020-05-20 22:27:00 Ramón, [facility] GRAM POSITIVE BLOOD 2020-05-20 22:27:00 Ramón, [facility] PATHOGENS DNA Medical Branch PROBE-ANAEROBIC EKG-12 LEAD 2020-05-20 22:24:44 Ramón, [facility] EKG-12 LEAD 2020-05-20 22:16:30 Ramón, [facility] GALV/CLC ONLY - URINE 2020-05-20 22:12:00 Ramón, [facility] DRUG (IMMUNOASSAY) - 4 ER Medica l Branch PANEL LACTIC ACID WHOLE BLOOD 2020-05-20 21:45:00 Ramón, [facility] EKG-12 LEAD 2020-05-20 21:44:28 Ramón, [facility] EKG-12 LEAD 2020-05-20 21:04:29 Ramón, [facility] COVID-19 (ID NOW RAPID 2020-05-20 20:30:00 Ramón, [facility] TESTING) [facility] CT STROKE HEAD WO 2020-05-20 20:01:49 Ramón [facility] CONTRAST [facility] TROPONIN I 2020-05-20 19:50:00 Ramón, [facility] BASIC METABOLIC PANEL 2020-05-20 19:50:00 Ramón, [facility] (NA, K, CL, CO2, GLUCOSE, Medica l Branch BUN, CREATININE, CA) ETHANOL 2020-05-20 19:50:00 Ramón, [facility] CBC WITHOUT DIFF 2020-05-20 19:50:00 Ramón, [facility] PROTHROMBIN TIME / INR 2020-05-20 19:50:00 Emmanuelle Melgar [facility] ACTIVATED PARTIAL 2020-05-20 19:50:00 Emmanuelle Melgar [facility] HB CREATININE BLOOD 2020-05-20 19:50:00 Emmaunelle Melgar [facility] POCT GLUCOSE (AUTOMATED) 2020-05-20 19:48:[address] [facility] HOSPITAL ADMISSION 2020-05-20 05:01:00 [facility] [place] [facility] Encounters Start End Encounter Admission Attending Care Care Encounter Source Date/Time Date/Time Type Type Clinicians Facility Department ID 2021-09-08 Outpatient 3 Benji, [facility] JORDAN [id number] [facility] 10:47:39 Susie 1014 2021-09-08 Outpatient 3 [id number] [facility] REF [id number] [facility] 10:46:56 1013 2021-09-07 Outpatient Dinero, [facility] [id number] 14:10:05 [place] [id number] [facility] 2021-09-07 Outpatient Dinero, [facility] [id number] 14:03:57 [place] [id number] [facility] 2021-09-07 Outpatient Dinero, [facility] 13[facility]59:[facility] [place] [id number] [facility] 2021-09-07 Outpatient Dinero, [facility] [id number] 13:21:38 [place] [id number] [facility] 2021-09-07 Outpatient Dinero, [facility] [id number] 13:19:11 [place] [id number] [facility] 2021-09-07 Outpatient Dinero, [facility] [id number] 12:27:26 [place] [id number] [facility] 2021-09-07 Outpatient Dinero, [facility] [id number] 12:23:27 [place] [id number] [facility] 2021-09-07 Outpatient Dinero, [facility] [id number] 12:18:07 [place] [id number] [facility] 2021-09-07 Outpatient Dinero, [facility] [id number] 12:14:02 [place] [id number] [facility] 2021-09-07 Outpatient Dinero, [facility] [id number] 12:09:12 [place] [id number] [facility] 2021-09-07 Outpatient Dinero, [facility] [id number] 12:07:50 [place] [id number] [facility] 2021-09-07 Outpatient Dinero, [facility] [id number] 12:07:19 [place] [id number] [facility] 2021-09-07 Outpatient Dinero, [facility] [id number] 12:[facility] [address] [facility] 2021-09-07 Outpatient Din[place], [facility] [id number] 11[place]41:07 [place] [address] [facility] 2021-09-07 Outpatient Dinero, [facility] [id number] 11:36:50 [place] [address] [facility] 2021-09-07 Outpatient Dinero, [facility] [id number] 11:32:26 [place] [address] [facility] 2021-09-07 Outpatient Dinero, [facility] [id number] 11:29:28 [place] [address] [facility] 2021-09-07 Outpatient Dinero, [facility] [id number] 11:29:23 [place] [address] [facility] 2021-09-07 Outpatient [place], [facility] [id number] 11:21:52 [place] [address] [facility] 2020-06-04 Outpatient NEW ENCCLR ENCCLR [id number] EN CCLR 14:27:33 ADMISSION 2021-09-06 2021-09-06 ambulatory [facility] [id number] [facility] 2021-09-05 2021-09-05 ambulatory [facility] [id number] [facility] 2021-08-30 2021-08-30 ambulatory [facility]ML[facility] [id number] [facility] 2021-06-17 2021-06-17 ambulatory [facility] [id number] [facility] 2021-06-06 2021-06-06 Outpatient [facility] [id number] [facility] 2021-05-19 2021-05-19 Outpatient [facility] [id number] [facility] 2021-03-17 2021-03-17 Outpatient [facility] [id number] [facility] 2021-03-15 2021-03-15 Outpatient [facility] [id number] [facility] 2021-02-12 2021-02-12 Outpatient [facility] [id number] [facility] 2021-02-11 2021-02-11 Outpatient [facility] [id number] [facility] 2021-02-10 2021-02-10 Outpatient [facility] [id number] [facility] 2021-01-27 2021-01-27 Outpatient [facility] [id number] [facility] 2021-01-06 2021-01-06 Outpatient [facility] [id number] [facility] 2020-12-30 2020-12-30 Outpatient [facility] [id number] [facility] 2020-12-17 2020-12-17 Outpatient [facility] [id number] [facility] 2020-12-15 2020-12-15 Outpatient [facility] [id number] [facility] 2020-11-29 2020-11-29 Outpatient [facility] [id number] [facility] 2020-11-24 2020-11-24 Outpatient [facility] [id number] [facility] 2020-11-01 2020-11-01 Outpatient [facility] [id number] [facility] 2020-09-01 2020-09-01 Outpatient [facility] [id number] [facility] 2020-09-01 2020-09-01 Outpatient [facility] [id number] [facility] 2020-08-19 2020-08-19 Jani [facility] Orthopedics 7 [id number] Univers 10:45:00 10:45:00 t; TINOMireille YAÑEZ M.D. [place] STEPHEN, Physici M.D. ans 2020-08-18 2020-08-18 Outpatient [facility] [id number] [facility] 2020-08-16 2020-08-16 Orders Doctor CRISTINA [id number] 00:00:00 00:00:00 Only Unassigned, [id number] [facility] 4.2.7.2.686 [id number] 2020-08-16 2020-08-16 Orders Doctor CRISTINA 1.2.840.114 [id number] Univers 00:00:00 00:00:00 Only Unassigned, YOMI 350.1.13.10 ity of [facility] 4.2.7.2.686 Trell as [id number] [address] 2020-07-26 2020-07-26 Outpatient [facility]MLC [facility] [id number] [facility] 2020-07-15 2020-07-[facility] Orthopedics 7 [id number] Univers 13:15:00 13:15:00 tMireille MARKS M.D. [place] STEPHEN, Physici M.D. ans 2020-07-15 2020-07-15 Outpatient [facility]MLC [facility] [id number] [facility] 2020-07-14 2020-07-14 Outpatient [facility] [id number] [facility] 2020-07-06 2020-07-06 Outpatient [facility] [id number] [facility] 2020-07-01 2020-07-01 Outpatient [facility] [id number] [facility] 2020-06-30 2020-06-30 Outpatient [facility] [id number] [facility] 2020-06-16 2020-06-16 [facility] [id number] [facility] 2020-06-15 2020-06-15 [facility] Orthopedics 7 [id number] [facility] 15:30:00 15:30:00 t; Mireille JIMÉNEZ y cara STARKEY M.D. [place] Denis JIMÉNEZ M.D. [facility] 2020-06-04 2020-06-04 [id number] 2020-05-20 2020-05-26 [facility] Emmanuelle Melgar 1.2.840.11 [id number] 14:41:00 19:55:00 Encounter Joyce Leachisidro Daley [id number] [facility] 4.2.7.2.686 [id number] [facility] 2020-05-20 2020-05-26 [facility] 1.2.840.11 4 [id number] [facility] 14:41:00 19:55:00 Encounter Regina Leachy 350.1.13.10 ity [facility] 4.2.7.2.686 [place] [id number] [address] 2020-05-20 2020-05-20 Emergency X EMMANUELLE MELGAR [facility] ERT 1 [id number] Univers 14:41:00 14:41:00 EMMANUELLE MELGAR ity [facility] 2020-04-26 2020-04-26 [facility] [id number] 14:21:00 14:21:00 t [facility] 2020-04-07 2020-04-07 [facility] [id number] 08:03:00 08:03:00 t [facility] 2020-04-06 2020-04-06 [facility] [id number] 14:45:00 14:45:00 t [facility] Medicine l Medicine Outpati ent Clinics 2020-03-23 2020-03-23 [facility] [id number] 13:45:00 13:45:00 t Popcuts s - Drive [facility] Medicine Medicine Outpati ent Clinics 2020-03-22 2020-03-22 [facility] [id number] 14:18:00 14:18:00 t [facility] [place] Medicine Medicine Outpati ent Clinics 2020-03-18 2020-03-18 [facility] [id number] 17:11:00 17:11:00 t [facility] Medicine Outpati ent Clinics 2020-03-16 2020-03-16 [facility] [id number] 15:15:00 15:15:00 t [facility] [facility] [place] [facility] Medicine Medicine Outpati ent Clinics 2020-03-12 2020-03-12 [facility] [id number] 13:47:00 13:47:00 t [facility] Medicine Outpati ent Clinics Results Test Description Test Time Test Comments Results Result Sour e Comments [U] XRAY SHOULDER 2020-08-19 Images Univers ity of MIN 2 VWS LEFT 10:48:00 acquired, not [place] [address] reported on Physicians this accession number. [U] XRAY SHOULDER 2020-07-15 Images Univers ity of MIN 2 VWS LEFT 13:19:00 acquired, not [place] [address] reported on Physicians this accession number. [U] XRAY SHOULDER 2020-06-15 Images Univers ity of MIN 2 VWS LEFT 16:04:00 acquired, not [place] [address] reported on Physicians this accession number. CBC [...] L [Au tomated message] The system which Jeb[employer] nerated this result transmit nava reference range: [...] g/dL 31.6-35.1 L RDW-SD (test code = 43170-2) 54.4 fL 39-49.9 H RDW-CV (test code = 788-0) 17.3 % 12-15.5 H PLT (test code = 777-3) See_Comment [Au tomated message] The system which Jeb[employer] nerated this result transmit nava reference range: 166 - 35 8 10*3/?L. The reference range was not used to interpret th is result as normal/abnormal . MPV (test code = 82601-7) 9.2 fL 9.5-12.9 L NRBC/100 WBC (test code = See_Comment [ Automated message] The 7928702591) system which [employer]eb[employer] nerated this result transmit nava reference range: 0.0 - 10 .0 /100 WBCs. The reference r josias was not used to interpr et this result as normal/abnor mal. NRBC x10^3 (test code = See_Comment [Au tomated message] The 6972494407) system which Jebbit nerated this result transmit nava reference range: 10*3/?L. The reference range was not u sed to interpret this result as normal/abnormal . GRAN MAT (NEUT) % (test code 46.6 % = 770-8) IMM GRAN % (test code = 9.70 % 8979231076) LYMPH % (test code = 736-9) 22.7 % MONO % (test code = 5905-5) 19.3 % EOS % (test code = 713-8) 1.4 % BASO % (test code = 706-2) 0.3 % GRAN MAT x10^3(ANC) (test 3.06 10*3/uL 1.88-7.09 code = 6306557711) IMM GRAN x10^3 (test code = 0.64 10*3/uL 0-0.06 H 4023496281) LYMPH x10^3 (test code = 1.49 10*3/uL 1.32-3.29 731-0) MONO x10^3 (test code = 1.27 10*3/uL 0.33-0.92 H 742-7) EOS x10^3 (test code = 0.09 10*3/uL 0.03-0.39 711-2) BASO x10^3 (test code = <0.03 0.01-0.07 704-7) BASO STIPPLING (test code = Present A 703-9) POLYCHROMASIA (test code = 2+ See_Comment [Automated message] The 96855-1) system which ge nerated this result transmit nava reference range: 2+. The reference range was not used to interpret this result as garett l/abnormal. Lab Interpretation (test Abnormal code = 33446-2) [facility] METABOLIC PANEL (NA, K, CL, CO2, GLUCOSE, BUN, CREATININE, CA)2020-05-26 10:50:00 Test Item Value Reference Range Interpretation Comments NA (test code = 140 mmol/L 135-145 8310727049) K (test code = 3.5 mmol/L 3.5-5 2547689459) CL (test code = 104 mmol/L 98-108 3757880229) CO2 TOTAL (test code = 29 mmol/L 23-31 9038454016) AGAP (test code = 2-16 0812864121) BUN (test code = 40 mg/dL 7-23 H 0106029560) GLUCOSE (test code = 168 mg/dL 70-110 H 3798720667) CREATININE (test code = 1.50 mg/dL 0.5-1.04 H 7459665914) CALCIUM (test code = 8.6 mg/dL 8.6-10.6 4849264564) eGFR Calculation mL/min/1.73m2 (Non-) (test code = 8712715075) eGFR Calculation mL/min/1.73m2 () (test code = 2398474115) SANDEEP (test code = SANDEEP) Association of [...] tests). Lab Interpretation Abnormal (test code = 55900-2) [facility] WHOLE [id number] 18:39:00 Test Item Value Reference Range Interpretation Comments Vitamin B1, Whole 44 nmol/L 70-180 L INTERPRETI VE Blood (test code = INFORMATI ON: Vitamin 35288-6) B1, Whole Blood This assay measures the concentration o f thiamine diphos phate (TDP), the prim kallie active form of vitamin B1. Approximate ly 90 percent of melissa min B1 present in whol e blood is TDP. Thiamin e and thiamine monophosphate, which comprise the re maining 10 percent, are not measured. Test developed and characteristics determined by A [facility]. S ee Compliance Stat ement B: [employer]/CONCHITA reddy By: [email or web address] [place] [address] [id number] Director: Liliana Brito MD Lab Interpretation Abnormal (test code = 62798-0) [facility] METABOLIC PANEL (NA, K, CL, CO2, GLUCOSE, BUN, CREATININE, CA)2020-05-25 10:17:00 Test Item Value Reference Range Interpretation Comments NA (test code = 140 mmol/L 135-145 1218799102) K (test code = 3.8 mmol/L 3.5-5 0813335394) CL (test code = 105 mmol/L 98-108 1077542143) CO2 TOTAL (test code = 29 mmol/L 23-31 2269966644) AGAP (test code = 2-16 1174395116) BUN (test code = 47 mg/dL 7-23 H 1536532718) GLUCOSE (test code = 114 mg/dL 70-110 H 7814258327) CREATININE (test code = 1.63 mg/dL 0.5-1.04 H 4555654308) CALCIUM (test code = 9.1 mg/dL 8.6-10.6 0104108893) eGFR Calculation mL/min/1.73m2 (Non-) (test code = 9799385567) eGFR Calculation mL/min/1.73m2 () (test code = 5990006539) SANDEEP (test code = SANDEEP) Association of [...] tests). Lab Interpretation Abnormal (test code = 09914-1) [facility] WITH [id number] 09:45:00 Test Item Value Reference Range Interpretation [...] (test code = 51.3 fL 39-49.9 H 95090-5) RDW-CV (test code = 16.7 % 12-15.5 H 788-0) PLT (test code = See_Comment [Automated 777-3) message] The sy stem which generated this result transmitted reference range : 166 - 358 10*3/ ?L. The reference r josias was not used to interpret this result as normal/abnormal . MPV (test code = 9.6 fL 9.5-12.9 06995-6) IPF % (test code = 1.9 % 1.3-7.7 Platelet count 1529821660) measured by fluorescence method. NRBC/100 WBC (test See_Comment [Automat ed code = 1370374930) message] The system which generated this result transmitted reference range : 0.0 - 10.0 /100 WBCs. The refer ence range was not u sed to interpret th is result as normal/abnormal . NRBC x10^3 (test code See_Comment [Auto mated = 9187107771) message] The s ystem which generated this result transmitted reference range : 10*3/?L. The reference range was not used to interpret this result as normal/abnormal . GRAN MAT (NEUT) % 56.7 % (test code = 770-8) IMM GRAN % (test code 6.90 % = 7038211205) LYMPH % (test code = 14.5 % 736-9) MONO % (test code = 20.2 % 5905-5) EOS % (test code = 0.9 % 713-8) BASO % (test code = 0.8 % 706-2) GRAN MAT x10^3(ANC) 4.25 10*3/uL 1.88-7.09 (test code = 3402700398) IMM GRAN x10^3 (test 0.52 10*3/uL 0-0.06 H code = 7801615248) LYMPH x10^3 (test code 1.09 10*3/uL 1.32-3.29 L = 731-0) MONO x10^3 (test code 1.52 10*3/uL 0.33-0.92 H = 742-7) EOS x10^3 (test code = 0.07 10*3/uL 0.03-0.39 711-2) BASO x10^3 (test code 0.06 10*3/uL 0.01-0.07 = 704-7) BASO STIPPLING (test Present A code = 703-9) HYPERSEG NEUTS (test Present See_Comment A [Autom ated code = 765-8) message] The s [employer] which generated this result transmitted reference range : (none). The reference range was not used to interpret this result as normal/abnormal . Lab Interpretation Abnormal (test code = 01949-0) [facility] 09:30:00 Test Item Value Reference Range Interpretation Comments MAGNESIUM (test code = 1436368506) 2.3 mg/dL 1.7-2.4 Lab Interpretation (test code = Normal 96037-2) [facility]AUTOMATED)2020-05-24 22:30:00 Test Item Value Reference Range Interpretation Comments POCT GLU (test code = 2438327035) 148 mg/dL 70-110 H Lab Interpretation (test code = Abnormal 24790-7) [facility] Random [id number] 20:33:00 Test Item Value Reference Range Interpretation Comments VANCO RANDOM (test code = 19.0 ug/mL 4298040267) [facility] [id number] 16:13:00 Test Item Value Reference Range Interpretation Comments Blood Culture Staphylococcus Organism william ntified Workup (test epidermidis by DNA probeFor code = 600-7) susceptibility results, refer to culture # - [id number] Gram stain Isolated from aerobic This i s an appended (test code = bottle Gram positive report. These 664-3) cocci results have be en appended to a previously preliminary ramone ified report. [facility] Random [id number] 11:34:00 Test Item Value Reference Range Interpretation Comments VANCO RANDOM (test code = 22.3 ug/mL 6210677995) [facility]OLIC [facility] (NA, K, CL, CO2, GLUCOSE, BUN, CREATININE, CA)2020-05-24 11:29:00 Test Item Value Reference Range Interpretation Comments NA (test code = 137 mmol/L 135-145 3851397805) K (test code = 4.5 mmol/L 3.5-5 Slight 1826335881) hemolysis CL (test code = 107 mmol/L 98-108 5655829559) CO2 TOTAL (test code 23 mmol/L 23-31 = 1945458237) AGAP (test code = 2-16 0174393270) BUN (test code = 54 mg/dL 7-23 H Slight 8846575405) hemolysis GLUCOSE (test code = 99 mg/dL 70-110 6822909428) CREATININE (test code 1.86 mg/dL 0.5-1.04 H = 2605789837) CALCIUM (test code = 8.6 mg/dL 8.6-10.6 5617414376) eGFR Calculation mL/min/1.73m2 (Non-) (test code = 0032454887) eGFR Calculation mL/min/1.73m2 () (test code = 2979159210) SANDEEP (test code = SANDEEP) Association of [...] tests). Lab Interpretation Abnormal (test code = 90121-3) [facility]2020-10-12 11:29:00 Test Item Value Reference Range Interpretation Comments MAGNESIUM (test code = 9833359221) 1.5 mg/dL 1.7-2.4 L Lab Interpretation (test code = Abnormal 10832-7) [facility] Level - Draw within 30 minutes prior to 4TH dose.2020-05-23 19:20:00 Test Item Value Reference Range Interpretation Comments VANCO TROUGH (test code 12.1 ug/mL 06-01 = 0411972296) SANDEEP (test code = SANDEEP) Toxic Range: ?>20 ug/mL 15-20 ug/mL is recommended for severe infection or when Vancomycin PIA is greater than or equal to 2. Lab Interpretation (test Normal code = 53447-6) [facility] DIFFICILE [id number] 15:36:00 Test Item Value Reference Range Interpretation Comments Clostridioides (Clostridium) Negative Negative difficile (test code = 72286-4) Lab Interpretation (test code = Normal 21188-5) [facility] LEFT WO [id number] 15:02:04 Proximal humerus fracture extending through the [...] impaction and posterior fragment displacement with joint effusion.[facility] CULTURE [id number] 13:38:00 Test Item Value Reference Range Interpretation Comments Blood Culture-Aerobic Culture positive. No growth AA P revious (test code = 38727-3) See Blood prelim inary Culture Workup verified resu lt for additional was Culture I n information. Progress on 05/22/2020 at 0003 CDT Blood Culture positive. No growth AA Previous Culture-Anaerobic See Blood preliminar y (test code = 50341-0) Culture Workup veri fied result for additional was Culture I n information. Progress on 05/21/2020 at 06 01 CDT Lab Interpretation Abnormal (test code = 95820-7) [facility] CULTURE [id number] 13:36:00 Test Item Value Reference Range Interpretation Comments Blood Culture-Aerobic Culture positive. No growth AA P revious (test code = 71351-0) See Blood prelim inary Culture Workup verified resu lt for additional was Culture I n information. Progress on 05/21/2020 at 06 01 CDT Blood Culture positive. No growth AA Previous Culture-Anaerobic See Blood preliminar y (test code = 58900-7) Culture Workup veri fied result for additional was Culture I n information. Progress on 05/21/2020 at 06 01 CDT Lab Interpretation Abnormal (test code = 38656-5) [facility] WITH [id number] 10:10:00 Test Item Value Reference Range Interpretation [...] RDW-SD (test code = 48.9 fL 39-49.9 42013-7) RDW-CV (test code = 15.9 % 12-15.5 H 788-0) PLT (test code = See_Comment L [Automated 777-3) message] The sy stem which generated this result transmitted reference range : 166 - 358 10*3/ ?L. The reference r josias was not used to interpret this result as normal/abnormal . MPV (test code = 10.2 fL 9.5-12.9 80224-5) NRBC/100 WBC (test See_Comment [Automat ed code = 4910239003) message] The system which generated this result transmitted reference range : 0.0 - 10.0 /100 WBCs. The refer ence range was not u sed to interpret th is result as normal/abnormal . NRBC x10^3 (test code See_Comment [Auto mated = 3519232649) message] The s ystem which generated this result transmitted reference range : 10*3/?L. The reference range was not used to interpret this result as normal/abnormal . GRAN MAT (NEUT) % 64.1 % (test code = 770-8) IMM GRAN % (test code 5.10 % = 0738004663) LYMPH % (test code = 20.9 % 736-9) MONO % (test code = 8.4 % 5905-5) EOS % (test code = 1.1 % 713-8) BASO % (test code = 0.4 % 706-2) GRAN MAT x10^3(ANC) 2.88 10*3/uL 1.88-7.09 (test code = 2471935507) IMM GRAN x10^3 (test 0.23 10*3/uL 0-0.06 H code = 0164641808) LYMPH x10^3 (test code 0.94 10*3/uL 1.32-3.29 L = 731-0) MONO x10^3 (test code 0.38 10*3/uL 0.33-0.92 = 742-7) EOS x10^3 (test code = 0.05 10*3/uL 0.03-0.39 711-2) BASO x10^3 (test code <0.03 0.01-0.07 = 704-7) TOXIC CHANGES (test Present A code = 803-7) Lab Interpretation Abnormal (test code = 87591-1) [facility] METABOLIC PANEL (NA, K, CL, CO2, GLUCOSE, BUN, CREATININE, CA)2020-05-23 09:52:00 Test Item Value Reference Range Interpretation Comments NA (test code = 134 mmol/L 135-145 L 6319235289) K (test code = 3.5 mmol/L 3.5-5 1938840009) CL (test code = 104 mmol/L 98-108 8469267347) CO2 TOTAL (test code = 22 mmol/L 23-31 L 7289033569) AGAP (test code = 2-16 4436241242) BUN (test code = 55 mg/dL 7-23 H 0711108967) GLUCOSE (test code = 142 mg/dL 70-110 H 3675655285) CREATININE (test code = 2.04 mg/dL 0.5-1.04 H 7386934472) CALCIUM (test code = 8.3 mg/dL 8.6-10.6 L 5087050553) eGFR Calculation mL/min/1.73m2 (Non-) (test code = 9188661173) eGFR Calculation mL/min/1.73m2 () (test code = 1192899273) SANDEEP (test code = SANDEEP) Association of [...] tests). Lab Interpretation Abnormal (test code = 95774-7) [facility] 09:52:00 Test Item Value Reference Range Interpretation Comments MAGNESIUM (test code = 0964132517) 1.8 mg/dL 1.7-2.4 Lab Interpretation (test code = Normal 40093-9) [facility] WITHOUT [id number] 15:23:00 Test Item Value Reference Range Interpretation Comments WBC (test code = 6690-2) See_Comment [A utomated message] The system [employer] generated this result transmit nava reference range : 4.30 - 11.10 10*3/?L. The reference range was not used to interpret this result as normal/abnormal . RBC (test code = 789-8) See_Comment L [Au tomated message] The system [employer] generated this result transmit nava reference range [...] See_Comment L [Au tomated message] The system [employer] generated this result transmit nava reference range : 166 - 358 10*3/?L. The reference range was not used to interpret this result as normal/abnormal . MPV (test code = 10.2 fL 9.5-12.9 84739-5) RDW-CV (test code = 15.6 % 12-15.5 H 788-0) RDW-SD (test code = 48.3 fL 39-49.9 90215-5) NRBC x10^3 (test code = See_Comment [Au tomated message] 4151164587) The system [employer] generated this result transmit nava reference range : 10*3/?L. The reference range was not used to interpret this result as normal/abnormal . NRBC/100 WBC (test code See_Comment [Au tomated message] = 2468785698) The system [facility] generated this result transmit nava reference range : 0.0 - 10.0 /100 WBC s. The reference r josias was not used to interpret this result as normal/abnormal . IPF % (test code = 9605211827) Lab Interpretation (test Abnormal code = 04219-3) [facility] (NA, K, CL, CO2, GLUCOSE, BUN, CREATININE, CA)2020-05-22 08:05:00 Test Item Value Reference Range Interpretation Comments NA (test code = 134 mmol/L 135-145 L 8302026914) K (test code = 3.3 mmol/L 3.5-5 L 8760174079) CL (test code = 103 mmol/L 98-108 4704755560) CO2 TOTAL (test code = 23 mmol/L 23-31 3849920981) AGAP (test code = 2-16 1728276575) BUN (test code = 57 mg/dL 7-23 H 2181409558) GLUCOSE (test code = 130 mg/dL 70-110 H 8485524637) CREATININE (test code = 2.26 mg/dL 0.5-1.04 H 4595042392) CALCIUM (test code = 8.0 mg/dL 8.6-10.6 L 8873453006) eGFR Calculation mL/min/1.73m2 (Non-) (test code = 5588248785) eGFR Calculation mL/min/1.73m2 () (test code = 8123924729) SANDEEP (test code = SANDEEP) Association of [...] tests). Lab Interpretation Abnormal (test code = 00317-2) [facility]2020[facility] 08:05:00 Test Item Value Reference Range Interpretation Comments MAGNESIUM (test code = 9687980634) 2.4 mg/dL 1.7-2.4 Lab Interpretation (test code = Normal 45947-8) [facility] WITH [id number] 07:44:00 Test Item Value Reference Range Interpretation [...] RDW-SD (test code = 48.8 fL 39-49.9 63564-0) RDW-CV (test code = 15.9 % 12-15.5 H 788-0) PLT (test code = See_Comment L [Automated 777-3) message] The sy stem which generated this result transmitted reference range : 166 - 358 10*3/ ?L. The reference r josias was not used to interpret this result as normal/abnormal . MPV (test code = 10.2 fL 9.5-12.9 65006-7) NRBC/100 WBC (test See_Comment [Automat ed code = 9265929634) message] The system which generated this result transmitted reference range : 0.0 - 10.0 /100 WBCs. The refer ence range was not u sed to interpret th is result as normal/abnormal . NRBC x10^3 (test code See_Comment [Auto mated = 7872889815) message] The s ystem which generated this result transmitted reference range : 10*3/?L. The reference range was not used to interpret this result as normal/abnormal . GRAN MAT (NEUT) % 78.8 % (test code = 770-8) IMM GRAN % (test code 1.10 % = 1714099104) LYMPH % (test code = 12.3 % 736-9) MONO % (test code = 6.5 % 5905-5) EOS % (test code = 1.2 % 713-8) BASO % (test code = 0.1 % 706-2) GRAN MAT x10^3(ANC) 7.21 10*3/uL 1.88-7.09 H (test code = 6588978436) IMM GRAN x10^3 (test 0.10 10*3/uL 0-0.06 H code = 5517075424) LYMPH x10^3 (test code 1.12 10*3/uL 1.32-3.29 L = 731-0) MONO x10^3 (test code 0.59 10*3/uL 0.33-0.92 = 742-7) EOS x10^3 (test code = 0.11 10*3/uL 0.03-0.39 711-2) BASO x10^3 (test code <0.03 0.01-0.07 = 704-7) Lab Interpretation Abnormal (test code = 32204-1) [facility] HeightsGRAM POSITIVE BLOOD PATHOGENS DNA [id number] 06:07:00 Test Item Value Reference Range Interpretation Comments Coagulase Negative Positive Negative, See A Staphylococcus (test Comment/Narrative code = 37278-5) SANDEEP (test code = SANDEEP) Coagulase negative [...] contact the Antimicrobial Stewardship Program with questions.Pager: ?[phone] Testing included eleven identification and three resistance marker targets. Lab Interpretation Abnormal (test code = 57648-7) [facility] HeightsVancomycin Random [id number] 04:46:00 Test Item Value Reference Range Interpretation Comments VANCO RANDOM (test code = 7479009176) <5.0 ug/mL [facility]CBC WITHOUT [id number] 23:31:00 Test Item Value Reference Range Interpretation Comments WBC (test code = 6690-2) See_Comment [A utomated message] The system [employer] generated this result transmit nava reference range : 4.30 - 11.10 10*3/?L. The reference range was not used to interpret this result as normal/abnormal . RBC (test code = 789-8) See_Comment L [Au tomated message] The system [employer] generated this result transmit nava reference range [...] See_Comment L [Au tomated message] The system [employer] generated this result transmit nava reference range : 166 - 358 10*3/?L. The reference range was not used to interpret this result as normal/abnormal . MPV (test code = 10.5 fL 9.5-12.9 68425-0) RDW-CV (test code = 16.0 % 12-15.5 H 788-0) RDW-SD (test code = 49.4 fL 39-49.9 90093-2) NRBC x10^3 (test code = <0.01 See_Comment [Au tomated message] 3295693330) The system [employer] generated this result transmit nava reference range : 10*3/?L. The reference range was not used to interpret this result as normal/abnormal . NRBC/100 WBC (test code See_Comment [Au tomated message] = 0010096429) The system [employer] generated this result transmit nava reference range : 0.0 - 10.0 /100 WBC s. The reference r josias was not used to interpret this result as normal/abnormal . IPF % (test code = 7006053967) Lab Interpretation (test Abnormal code = 95320-6) [facility]CREATINE [id number] 21:30:00 Test Item Value Reference Range Interpretation Comments CK (test code = 4512839048) 2974 U/L 33-194 H Lab Interpretation (test code = Abnormal 63765-5) [facility]CREATINE [id number] 20:54:00 Test Item Value Reference Range Interpretation Comments CK (test code = 6577259198) 4670 U/L 33-194 H Lab Interpretation (test code = Abnormal 96255-4) [facility]URINE [id number] 20:43:00 Test Item Value Reference Range Interpretation Comments URINE CULTURE (test No aerobic growth (< code = 630-4) 1000 CFU/mL) [facility] HeightsPOCT [id number] 19:00:00 Test Item Value Reference Range Interpretation Comments POCT Creatinine (test code = 7.4 mg/dL 0.5-1.1 H 3022766793) Lab Interpretation (test code = Abnormal 19469-2) [facility]MRSA / MSSA Screen by PCR, [id number] 16:40:00 Test Item Value Reference Range Interpretation Comments MSSA Screen by PCR, Positive Negative A Nares (test code = 53335-3) MRSA/MSSA Positive? Yes No A (test code = 9624904081) SANDEEP (test code = SANDEEP) A positive test result does not necessarily indicate the presence of viable organism. Lab Interpretation (test Abnormal code = 82582-8) [facility] HeightsXR HUMERUS 2 VW [id number] 15:55:36 Stable appearing greater tuberosity fracture. Lateral [...] glenoid fossa. No other fracture is seen. 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 Lateral [...] glenoid fossa. No other fracture is seen. 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 Lateral [...] glenoid fossa. No other fracture is seen. 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.[facility] HeightsHEPATIC FUNCTION PANEL (93188) (ALB,T.PRO,BILI T,BU/BC,ALT,AST,ALK PHOS)2020-05-21 13:04:00 Test Item Value Reference Range Interpretation Comments TOTAL BILI (test code = 2128178076) 0.7 mg/dL 0.1-1.1 BILI UNCON (test code = 3206604583) 0.6 mg/dL 0.1-1.1 BILI CONJ (test code = 2048307012) 0.0 mg/dL 0-0.3 T PROTEIN (test code = 3663492059) 5.5 g/dL 6.3-8.2 L ALBUMIN (test code = 6446428830) 2.8 g/dL 3.5-5 L ALK PHOS (test code = 7634417405) 66 U/L 34-122 ALTv (test code = 1742-6) 30 U/L 5-35 AST(SGOT) (test code = 1813802511) 163 U/L 13-40 H Lab Interpretation (test code = Abnormal 78975-8) [facility] SHOULDER 2+ VW [id number] 10:30:08 Greater tuberosity fracture. EXAM: XR HIPS [...] and facetarthropathy with spondylosis are partially visualized. [facility], Radiant Results Inft User - 05/21/2020 5:31 [...] facetarthropathy with spondylosis are partially visualized.IMPRESSIONGreater tuberosity fracture.[facility]XR HIPS 2 VW [id number] 10:30:08 Greater tuberosity fracture. EXAM: XR HIPS [...] and facetarthropathy with spondylosis are partially visualized. [facility], Radiant Results Inft User - 05/21/2020 5:31 [...] facetarthropathy with spondylosis are partially visualized.IMPRESSIONGreater tuberosity fracture.[facility] WITH [id number] 09:30:00 Test Item Value Reference Range Interpretation [...] RDW-SD (test code = 49.7 fL 39-49.9 94311-6) RDW-CV (test code = 15.9 % 12-15.5 H 788-0) PLT (test code = See_Comment L [Automated 777-3) message] The sy stem which generated this result transmitted reference range : 166 - 358 10*3/ ?L. The reference r josias was not used to interpret this result as normal/abnormal . MPV (test code = 10.3 fL 9.5-12.9 73897-5) NRBC/100 WBC (test See_Comment [Automat ed code = 9324674496) message] The system which generated this result transmitted reference range : 0.0 - 10.0 /100 WBCs. The refer ence range was not u sed to interpret th is result as normal/abnormal . NRBC x10^3 (test code See_Comment [Auto mated = 8553440288) message] The s ystem which generated this result transmitted reference range : 10*3/?L. The reference range was not used to interpret this result as normal/abnormal . GRAN MAT (NEUT) % 85.4 % (test code = 770-8) IMM GRAN % (test code 0.80 % = 7541930767) LYMPH % (test code = 7.7 % 736-9) MONO % (test code = 5.8 % 5905-5) EOS % (test code = 0.2 % 713-8) BASO % (test code = 0.1 % 706-2) GRAN MAT x10^3(ANC) 9.49 10*3/uL 1.88-7.09 H (test code = 3685742288) IMM GRAN x10^3 (test 0.09 10*3/uL 0-0.06 H code = 5531703512) LYMPH x10^3 (test code 0.86 10*3/uL 1.32-3.29 L = 731-0) MONO x10^3 (test code 0.65 10*3/uL 0.33-0.92 = 742-7) EOS x10^3 (test code = <0.03 0.03-0.39 L 711-2) BASO x10^3 (test code <0.03 0.01-0.07 = 704-7) BANDS (test code = Increased A 0698163901) Lab Interpretation Abnormal (test code = 59389-3) [facility]MAG[facility]UM2020-10-09 09:26:00 Test Item Value Reference Range Interpretation Comments MAGNESIUM (test code = 4700503606) 9.7 mg/dL 1.7-2.4 H Lab Interpretation (test code = Abnormal 19795-5) [facility] HeightsBAPSYCHIATRIC METABOLIC PANEL (NA, K, CL, CO2, GLUCOSE, BUN, CREATININE, CA)2020-05-21 09:13:00 Test Item Value Reference Range Interpretation Comments NA (test code = 132 mmol/L 135-145 L 0114868406) K (test code = 3.9 mmol/L 3.5-5 9481621412) CL (test code = 104 mmol/L 98-108 5392733020) CO2 TOTAL (test code = 15 mmol/L 23-31 L 2229110942) AGAP (test code = 2-16 6225424154) BUN (test code = 62 mg/dL 7-23 H 3325513862) GLUCOSE (test code = 114 mg/dL 70-110 H 8063569751) CREATININE (test code = 4.07 mg/dL 0.5-1.04 H 1242850820) CALCIUM (test code = 7.5 mg/dL 8.6-10.6 L 8250261480) eGFR Calculation mL/min/1.73m2 (Non-) (test code = 9618461250) eGFR Calculation mL/min/1.73m2 () (test code = 9759231300) SANDEEP (test code = SANDEEP) Association of [...] tests). Lab Interpretation Abnormal (test code = 55603-8) [facility] HeightsEDIE [id number] 09:13:00 Test Item Value Reference Range Interpretation Comments TROPONIN I (test 0.113 ng/mL See_Comment H [Automated code = 6898976700) message] The system which generated this result [...] ? Lab Interpretation Abnormal (test code = 25407-0) [facility] HeightsVITAMIN B12, [id number] 05:54:00 Test Item Value Reference Range Interpretation Comments VIT B12 (test code = 352 pg/mL 240-930 9593710334) SANDEEP (test code = SANDEEP) Biotin has been reported to cause a positive bias, interpret results relative to patient's use of biotin. Lab Interpretation (test Normal code = 52544-9) [facility] HeightsFOLATE2020-10-09 05:54:00 Test Item Value Reference Range Interpretation Comments FOLATE SER (test code = 5129648659) 9.5 ng/mL 3-20 Lab Interpretation (test code = Normal 47535-1) [facility]MAG[facility]UM2020-10-09 04:48:00 Test Item Value Reference Range Interpretation Comments MAGNESIUM (test code = 9057987829) 1.7 mg/dL 1.7-2.4 Lab Interpretation (test code = Normal 51238-3) [facility] HeightsTHYROID STIMULATING [id number] 04:04:00 Test Item Value Reference Range Interpretation Comments TSH (test code = See_Comment [Automated message] 8048159480) The system [employer] generated this result transmitted ref erence range: 0.45 - 4 .70 mIU/L. The refe rence range was not u sed to interpret this result as normal/abnor mal. Lab Interpretation (test Normal code = 84177-8) [facility] HeightsCREATINE [id number] 03:33:00 Test Item Value Reference Range Interpretation Comments CK (test code = 0929773971) 6736 U/L 33-194 H Lab Interpretation (test code = Abnormal 56226-7) [facility] HeightsTROPONIN [id number] 02:39:00 Test Item Value Reference Range Interpretation Comments TROPONIN I (test 0.113 ng/mL See_Comment H [Automated code = 5666012199) message] The system which generated this result [...] ? Lab Interpretation Abnormal (test code = 17512-5) [facility]INALYSIS2020-10-09 00:55:00 Test Item Value Reference Range Interpretation Comments APPEARANCE (test code = Cloudy Clear A 6163379938) COLOR (test code = Riri Yellow A 7791565494) PH (test code = 4.8-8.0 0072589778) SP GRAVITY (test code = 1.003-1.030 0360846476) GLU U QUAL (test code = 50 mg/dL Normal A 3384183260) BLOOD (test code = 3+ Negative A 5762674131) KETONES (test code = 5 mg/dL Negative A 7239977036) PROTEIN (test code = 100 mg/dL Negative A 2887-8) UROBILIN (test code = Normal Normal 7244538575) BILIRUBIN (test code = Negative Negative 3996630416) NITRITE (test code = Negative Negative 5046682903) LEUK SPIKE (test code = Negative Negative 6189748741) RBC/HPF (test code = See_Comment [Autom ated message] 9922883566) The system [employer] generated this result transmit nava reference range : 0 - 3 HPF. The refe rence range was not u sed to interpret th is result as normal/abnormal . WBC/HPF (test code = See_Comment [Autom ated message] 3574492390) The system [employer] generated this result transmit nava reference range : 0 - 5 HPF. The refe rence range was not u sed to interpret th is result as normal/abnormal . BACTERIA (test code = Few Negative A 0423650512) MUCOUS (test code = Moderate Negative LPF A 8935038376) SQ EPITH (test code = See_Comment H [Auto mated message] 3360960100) The system [employer] generated this result transmit nava reference range : <=2 HPF. The refere nce range was not u sed to interpret th is result as normal/abnormal . HYAL CAST (test code = See_Comment H [Aut omated message] 8135759363) The system [employer] generated this result transmit nava reference range : <=2 LPF. The refere nce range was not u sed to interpret th is result as normal/abnormal . Lab Interpretation (test Abnormal code = 37947-1) [facility]LIPASE2020-10-09 00:37:00 Test Item Value Reference Range Interpretation Comments LIPASE (test code = 3965897258) 3911 U/L 0-220 H Lab Interpretation (test code = Abnormal 33680-3) [facility] HeightsPROCALCITONIN2020-10-09 00:37:00 Test Item Value Reference Range Interpretation Comments Procalcitonin (test 4.99 ng/mL <0.07 H code = 8265391217) SANDEEP (test code = SANDEEP) INTERPRETATION OF [...] lung abscess/empyema. For further information please refer to:[email or web address] Lab Interpretation Abnormal (test code = 50488-6) [facility] HeightsMAGNESIUM2020-10-09 00:18:00 Test Item Value Reference Range Interpretation Comments MAGNESIUM (test code = 4597089080) 1.8 mg/dL 1.7-2.4 Lab Interpretation (test code = Normal 27542-0) [facility]PHOSPHORUS2020-10-09 00:18:00 Test Item Value Reference Range Interpretation Comments PHOSPHORUS (test code = 8393979303) 3.1 mg/dL 2.5-5 Lab Interpretation (test code = Normal 51300-4) [facility] HeightsBASIC METABOLIC PANEL (NA, K, CL, CO2, GLUCOSE, BUN, CREATININE, CA)2020-05-21 00:18:00 Test Item Value Reference Range Interpretation Comments NA (test code = 132 mmol/L 135-145 L 8282751278) K (test code = 4.2 mmol/L 3.5-5 8146926262) CL (test code = 103 mmol/L 98-108 3939179872) CO2 TOTAL (test code = 16 mmol/L 23-31 L 4222791849) AGAP (test code = 2-16 9632563856) BUN (test code = 66 mg/dL 7-23 H 7634566309) GLUCOSE (test code = 113 mg/dL 70-110 H 8024752779) CREATININE (test code = 5.17 mg/dL 0.5-1.04 H 7563182158) CALCIUM (test code = 7.2 mg/dL 8.6-10.6 L 6888264848) eGFR Calculation mL/min/1.73m2 (Non-) (test code = 7439674921) eGFR Calculation mL/min/1.73m2 () (test code = 2989060743) SANDEEP (test code = SANDEEP) Association of [...] tests). Lab Interpretation Abnormal (test code = 19488-6) [facility] HeightsD-[id number] 23:55:00 Test Item Value Reference Interpretation Comments Range D-DIMER (test code = See_Comment H [Autom ated 5107733867) message] The system which generated this result [...] diagnosis. Lab Interpretation Abnormal (test code = 14674-1) [facility] HeightsFIBRINOGEN2020-10-08 23:55:00 Test Item Value Reference Range Interpretation Comments Fibrinogen (test code = 6500663634) 389 mg/dL 167-453 Lab Interpretation (test code = Normal 64507-0) [facility] HeightsCREATININE, URINE [id number] 23:53:00 Test Item Value Reference Range Interpretation Comments CREAT U (test code = 6423766361) 101.7 mg/dL [facility] HeightsUREA NITROGEN, URINE [id number] 23:53:00 Test Item Value Reference Range Interpretation Comments UREA N UR (test code = 9726506723) 301 mg/dL [facility]CBC WITH [id number] 23:49:00 Test Item Value Reference Range Interpretation Comments WBC (test code = See_Comment [Automated 0790-2) message] The sy stem which generated this result transmitted reference range : 4.30 - 11.10 10*3/?L. The reference range was not used to interpret this result as normal/abnormal . RBC (test code = See_Comment L [Automated 436-8) message] The sy stem which generated this [...] RDW-SD (test code = 47.8 fL 39-49.9 69480-5) RDW-CV (test code = 15.8 % 12-15.5 H 788-0) PLT (test code = See_Comment L [Automated 777-3) message] The sy stem which generated this result transmitted reference range : 166 - 358 10*3/ ?L. The reference r josias was not used to interpret this result as normal/abnormal . MPV (test code = 9.6 fL 9.5-12.9 84350-7) NRBC/100 WBC (test See_Comment [Automat ed code = 1499368697) message] The system which generated this result transmitted reference range : 0.0 - 10.0 /100 WBCs. The refer ence range was not u sed to interpret th is result as normal/abnormal . NRBC x10^3 (test code See_Comment [Auto mated = 1093836653) message] The s ystem which generated this result transmitted reference range : 10*3/?L. The reference range was not used to interpret this result as normal/abnormal . GRAN MAT (NEUT) % 85.9 % (test code = 770-8) IMM GRAN % (test code 1.10 % = 6275385074) LYMPH % (test code = 7.3 % 736-9) MONO % (test code = 5.6 % 5905-5) EOS % (test code = 0.0 % 713-8) BASO % (test code = 0.1 % 706-2) GRAN MAT x10^3(ANC) 8.16 10*3/uL 1.88-7.09 H (test code = 8642130602) IMM GRAN x10^3 (test 0.10 10*3/uL 0-0.06 H code = 9234755248) LYMPH x10^3 (test code 0.69 10*3/uL 1.32-3.29 L = 731-0) MONO x10^3 (test code 0.53 10*3/uL 0.33-0.92 = 742-7) EOS x10^3 (test code = <0.03 0.03-0.39 L 711-2) BASO x10^3 (test code <0.03 0.01-0.07 = 704-7) Lab Interpretation Abnormal (test code = 33765-4) [facility] CHEST 1 [id number] 23:46:21 Bilateral interstitial prominence most prominent within [...] this study and agree with theabove report. [facility] HeightsCentral [id number] 23:30:25Emmanuelle Melgar DO ? ? 05/20/2020 ?6:30 [...] tolerance of procedure: ?Tolerated well, no immediate complicationsUnMemorial Hermann Southeast HospitalN-TERMINAL PRO-BNP 2020-05-20 23:28:00 Test Item Value Reference Range Interpretation Comments NT-proBNP (test code 07866 pg/mL See_Comment H [Autom ated = 8533662884) message] The system which generated this result transmitted reference range : <=125. The reference range was not used to interpret this result as normal/abnormal . SANDEEP (test code = SANDEEP) Biotin has been reported to cause a negative bias, interpret results relative to patient's use of biotin. Lab Interpretation Abnormal (test code = 83962-1) [facility] VENOUS BLOOD [id number] 23:13:00 Test Item Value Reference Range Interpretation Comments PH (test code = 7.32-7.42 LL 8587800985) PCO2 MASTER (test code = See_Comment [Auto mated message] 6579353590) The system [employer] generated this result transmitted ref erence range: 41 - 51 mmHg. The reference r josias was not used to interpret this result as normal/abnor mal. PO2 MASTER (test code = See_Comment H [Autom ated message] 3912844463) The system [employer] generated this result transmitted ref erence range: 25 - 40 mmHg. The reference r josias was not used to interpret this result as normal/abnor mal. HCO3 MASTER (test code = See_Comment L [Auto mated message] 1779746491) The system [employer] generated this result transmitted ref erence range: 24 - 28 mEq/L. The reference r josias was not used to interpret this result as normal/abnor mal. AC VBE(BEAKER) (test mEq/L code = 7427893847) Lab Interpretation (test Abnormal code = 32623-1) [facility] HeightsDrug Screen [id number] 22:50:00 Test Item Value Reference Range Interpretation Comments AMPHET (test code = Negative Negative 0121513638) Cocaine Metabolite (test Negative Negative code = 7053520738) OPIATES (test code = Negative Negative 5981852563) THC (test code = Negative Negative 9136806294) SANDEEP (test code = SANDEEP) Urine Drug Cutoff Ranges Amphetamine: ? 1,000 ng/mLCocaine: ? 150 ng/mLOpiates: ? 300 ng/mLCannabinoids: ?50 ng/mL The results are to be used only for medical (i.e., treatment) purposes. Unconfirmed screening results must not be used for non-medical purposes (e.g., employment testing, legal testing). Lab Interpretation (test Normal code = 77584-1) [facility] HeightsLactic Acid Whole [id number] 21:52:00 Test Item Value Reference Range Interpretation Comments LACTIC ACID (test code = 1.91 mmol/L 5770383470) [facility] HeightsEthanol [id number] 21:21:00 Test Item Value Reference Range Interpretation Comments ALCOHOL (test code = <10 mg/dL 4613030768) SANDEEP (test code = Toxic Greater than or SANDEEP) equal to 80 mg/dL. NOTE: Whole blood values are approximately 10% to 15% lower than serum and plasma. [facility] HeightsCOVID-[facility] (ID NOW RAPID TESTING)2020-05-20 20:58:00 Test Item Value Reference Range Interpretation Comments SARS-CoV-2 Rapid ID NOW Not Detected Not Detected (test code = 83416-0) SANDEEP (test code = SANDEEP) ID NOW COVID-19 Assay is an isothermal nucleic acid amplification test intended for the qualitative detection of nucleic acid from SARS-CoV-2 viral RNA in nasopharyngeal (PRODUCTION CLERK) specimens. It is used under Emergency Use [...] indicated. Lab Interpretation Normal (test code = 85508-8) [facility] HeightsCT STROKE HEAD WO [id number] 20:47:16 Mild asymmetry in the cerebral sulci [...] reviewed this study and agree with theabove report.[facility]Tr[facility] I - Code [id number] 20:20:00 Test Item Value Reference Range Interpretation Comments TROPONIN I (test 0.136 ng/mL See_Comment H [Automated code = 2371466034) message] The system which generated this result [...] ? Lab Interpretation Abnormal (test code = 30014-6) [facility] HeightsBasi Metabolic Panel (NA, K, CL, CO2, Glucose, BUN, Creatinine, CA) - Code [id number] 20:09:00 Test Item Value Reference Range Interpretation Comments NA (test code = 126 mmol/L 135-145 L 4239371430) K (test code = 5.7 mmol/L 3.5-5 H Slight 9481929475) hemolysis CL (test code = 92 mmol/L 98-108 L 2340904350) CO2 TOTAL (test code 13 mmol/L 23-31 L = 5771450792) AGAP (test code = 2-16 H 2449320683) BUN (test code = 74 mg/dL 7-23 H Slight 2057306106) hemolysis GLUCOSE (test code = 175 mg/dL 70-110 H 3258570549) CREATININE (test code 6.72 mg/dL 0.5-1.04 H = 1792574968) CALCIUM (test code = 8.9 mg/dL 8.6-10.6 0985827443) eGFR Calculation mL/min/1.73m2 (Non-) (test code = 2519745765) eGFR Calculation mL/min/1.73m2 () (test code = 2711322035) SANDEEP (test code = SANDEEP) Association of [...] tests). Lab Interpretation Abnormal (test code = 83134-1) [facility] / [facility] - Code [id number] 20:06:00 Test Item Value Reference Range Interpretation Comments PROTIME PATIENT (test See_Comment L [Auto mated message] code = 5964-2) The system [employer] generated this result transmitted ref erence range: 10.1 - 1 2.6 Seconds. The reference range was not used to int erpret this result as normal/abnormal . INR (test code = 6301-6) Nor mal INR <1.1; Warfarin Therap eutic range 2.0 to 3. 0 or 2.5 to 3.5, dep ending upon the indica tions. Lab Interpretation (test Abnormal code = 94337-3) [facility]2020[facility] 20:05:00 Test Item Value Reference Range Interpretation Comments APTT Patient (test code = See_Comment [ Automated message] 3173-2) The system [employer] generated this result transmitted ref erence range: 26 - 36 Seconds. The re ference range was not u sed to interpret this result as normal/abnor mal. Lab Interpretation (test Normal code = 84814-4) [facility] without Diff - Code [id number] 19:57:00 Test Item Value Reference Range Interpretation Comments WBC (test code = 6690-2) See_Comment H [A utomated message] The system [employer] generated this result transmit nava reference range : 4.30 - 11.10 10*3/?L. The reference range was not used to interpret this result as normal/abnormal . RBC (test code = 789-8) See_Comment [Au tomated message] The system [employer] generated this result transmit nava reference range [...] See_Comment L [Au tomated message] The system [employer] generated this result transmit nava reference range : 166 - 358 10*3/?L. The reference range was not used to interpret this result as normal/abnormal . MPV (test code = 10.9 fL 9.5-12.9 64256-7) RDW-CV (test code = 15.9 % 12-15.5 H 788-0) RDW-SD (test code = 48.2 fL 39-49.9 35483-6) NRBC x10^3 (test code = See_Comment [Au tomated message] [id number]) The system whic h generated this result transmit nava reference range : 10*3/?L. The reference range was not used to interpret this result as normal/abnormal . NRBC/100 WBC (test code See_Comment [Au tomated message] = 0098416477) The system [employer] ch generated this result transmit nava reference range : 0.0 - 10.0 /100 WBC s. The reference r josias was not used to interpret this result as normal/abnormal . IPF % (test code = 7240954019) Lab Interpretation (test Abnormal code = 75003-7) [facility]2020-05-20 19:54:00 Test Item Value Reference Range Interpretation Comments POCT GLU (test code = 0325217167) 192 mg/dL 70-110 H Lab Interpretation (test code = Abnormal 91429-5) [facility]RAD[facility] ABDOMEN/KUB, 1 VIEW [id number] 08:21:00 Reason for exam:->nauseaIs the patient ?->NoFINAL [...] MDReport Verified Date/Time: 10/14/2018 08:21:37 Reading Location: [facility] Radiology Reading Room CBC W/PLT COUNT & AUTO [id number] 08:18:00 Test Item Value Reference Range Interpretation [...] Received comment: User comments: Slide comments:BASIC METABOLIC [id number] 06:23:00 Test Item Value Reference Range Interpretation [...] S NOT APPLICABLE FOR DIALYSIS PATIEN TS. [id number] 09:49:00 Test Item Value Reference Range Interpretation Comments LIPASE (BEAKER) (test code = 749) 37 U/L 8-78 HEPATIC FUNCTION [id number] 09:49:00 Test Item Value Reference Range Interpretation [...] Differential performed on an albumin smear.BASIC METABOLIC [id number] 03:40:00 Test Item Value Reference Range Interpretation [...] PATIEN TS. CBC W/PLT COUNT & AUTO [id number] 03:00:00 Test Item Value Reference Range Interpretation [...] 0-0 (BEAKER) (test code = 413) POCT-GLUCOSE [id number] 21:19:00 Test Item Value Reference Range Interpretation Comments POC-GLUCOSE METER 216 mg/dL 70-110 H TESTED AT [facility] 67 ([facility]) (test code = [place] 1538) [address] POCT-GLUCOSE [id number] 12:46:00 Test Item Value Reference Range Interpretation Comments POC-GLUCOSE METER 174 mg/dL 70-110 H TESTED AT [facility] 6720 ([facility]) (test code = RODOLFO Pitts [facility] 1538) [address] RAD, ABDOMEN/KUB, 1 VIEW [id number] 10:26:00Reason for exam:->abd distension, eval for obstruction/ileusIs [...] MDReport Verified Date/Time: 10/12/2018 10:26:01 Reading Location: [facility] B1 C013Y CT Body Reading Room CBC W/PLT COUNT & AUTO [id number] 09:45:00 Test Item Value Reference Range Interpretation [...] 3438) Received comment: User comments: Slide comments:POCT-GLUCOSE [id number] 07:56:00 Test Item Value Reference Range Interpretation Comments POC-GLUCOSE METER 213 mg/dL 70-110 H TESTED AT [facility] 6720 (BEAKER) (test code = [place] 1538) [address] BASIC METABOLIC [id number] 07:38:00 Test Item Value Reference Range Interpretation [...] NOT APPLICABLE FOR DIALYSIS PATIEN TS. POCT-GLUCOSE [id number] 18:35:00 Test Item Value Reference Range Interpretation Comments POC-GLUCOSE METER 196 mg/dL 70-110 H TESTED AT [place] [address] [facility] (test code = RODOLFO [place] [facility] 1538) [address] POCT-GLUCOSE [id number] 12:01:00 Test Item Value Reference Range Interpretation Comments POC-GLUCOSE METER 184 mg/dL 70-110 H TESTED AT [place] [address] ([facility] (test code = DANIELNV Gisselle [facility] 1538) [address] POCT-GLUCOSE [id number] 08:12:00 Test Item Value Reference Range Interpretation Comments POC-GLUCOSE METER 215 mg/dL 70-110 H TESTED AT [place] [address] ([facility] (test code = [facility] Gisselle [facility] 1538) [address] BASIC METABOLIC [id number] 06:51:00 Test Item Value Reference Range Interpretation [...] PATIEN TS. CBC W/PLT COUNT & AUTO [id number] 06:15:00 Test Item Value Reference Range Interpretation [...] PERCENT (BEAKER) (test code = 2801) POCT-GLUCOSE [id number] 22:53:00 Test Item Value Reference Range Interpretation Comments POC-GLUCOSE METER 207 mg/dL 70-110 H TESTED AT [facility] 6720 [facility] (test code = RODOLFO [place] [facility] 1538) [address] RAD, CHEST, 1 VIEW, NON [id number] 22:32:00Reason for exam:->coughShould this be performed at [...] Fox Verified Date/Time: 10/10/2018 22:32:10 Reading Location: [facility] POCT-GLUCOSE [id number] 22:05:00 Test Item Value Reference Range Interpretation Comments POC-GLUCOSE METER 202 mg/dL 70-110 H TESTED AT [facility] 6720 [facility] (test code = RODOLFO [place] [facility] 1538) [address] RESPIRATORY PANEL [id number] 13:26:00 Test Item Value Reference Range Interpretation [...] decisions. This sample was tested at the [facility] Molecular Diagnostics Laboratory using the [employer] Respiratory Panel. It is FDA cleared and has been verified and approved by the [facility] for clinical use on nasal swab specimens. It is not FDA-cleared for use on bronchial wash/lavage samples. However, for this sample type, validation was performed and test characteristics were determined and approved, by [facility] for clinical use under the Clinical Laboratory Improvement Amendments (CLIA) of 1988 requirements. Therefore, FDA clearance isnot required. This laboratory is CLIA- certified and [employer] (CAP)-accredited to perform high complexity testing.POCT-GLUCOSE [id number] 11:47:00 Test Item Value Reference Range Interpretation Comments POC-GLUCOSE METER 163 mg/dL 70-110 H TESTED AT [facility] 0759 ([place]) (test code = [place] 1538) [address] POCT-GLUCOSE [id number] 08:34:00 Test Item Value Reference Range Interpretation Comments POC-GLUCOSE METER 141 mg/dL 70-110 H TESTED AT [facility] 6720 (BEAKER) (test code = [place] 1538) [address] BASIC METABOLIC [id number] 06:51:00 Test Item Value Reference Range Interpretation [...] PATIEN TS. CBC W/PLT COUNT & AUTO [id number] 06:35:00 Test Item Value Reference Range Interpretation [...] PERCENT (BEAKER) (test code = 2801) POCT-GLUCOSE [id number] 21:25:00 Test Item Value Reference Range Interpretation Comments POC-GLUCOSE METER 199 mg/dL 70-110 H TESTED AT [facility] 6720 (BEAKER) (test code = R[place] 1538) [address] BLOOD [id number] 19:00:00 Test Item Value Reference Range Interpretation Comments CULTURE (BEAKER) (test No growth in 5 days code = 1095) BLOOD [id number] 19:00:00 Test Item Value Reference Range Interpretation Comments CULTURE (BEAKER) (test No growth in 5 days code = 1095) POCT-GLUCOSE [id number] 18:16:00 Test Item Value Reference Range Interpretation Comments POC-GLUCOSE METER 149 mg/dL 70-110 H TESTED AT [facility] 6720 (BEAKER) (test code = ROD[place] 1538) [address] OVA AND PARASITE [id number] 08:39:00 Test Item Value Reference Range Interpretation Comments CONCENTRATE SMEAR - No ova or parasites No ova or parasites O\\T\\P (BEAKER) (test seen seen code = 247) TRICHROME SMEAR - No ova or parasites No ova or parasites O\\T\\P (BEAKER) (test seen seen code = 248) POCT-GLUCOSE [id number] 07:38:00 Test Item Value Reference Range Interpretation Comments POC-GLUCOSE METER 169 mg/dL 70-110 H TESTED AT [facility] 6720 (BEAKER) (test code = RODOLFO Pitts [facility] 1538) [address] BASIC METABOLIC [id number] 05:07:00 Test Item Value Reference Range Interpretation [...] PATIEN TS. CBC W/PLT COUNT & AUTO [id number] 04:51:00 Test Item Value Reference Range Interpretation [...] PERCENT (BEAKER) (test code = 2801) POCT-GLUCOSE [id number] 20:27:00 Test Item Value Reference Range Interpretation Comments POC-GLUCOSE METER 200 mg/dL 70-110 H TESTED AT [facility] 6720 (BEAKER) (test code = [facility] 1538) [address] POCT-GLUCOSE [id number] 17:20:00 Test Item Value Reference Range Interpretation Comments POC-GLUCOSE METER 242 mg/dL 70-110 H TESTED AT [facility] 67 (BEAKER) (test code = [facility] 1538) [address] POCT-GLUCOSE [id number] 13:03:00 Test Item Value Reference Range Interpretation Comments POC-GLUCOSE METER 146 mg/dL 70-110 H TESTED AT [place] [address] (BEAKER) (test code = [facility] 1538) [address] POCT-GLUCOSE [id number] 08:06:00 Test Item Value Reference Range Interpretation Comments POC-GLUCOSE METER 150 mg/dL 70-110 H TESTED AT [place] [address] (BEAKER) (test code = [facility] 1538) [address] [id number] 04:31:00 Test Item Value Reference Range Interpretation Comments PHOSPHORUS (BEAKER) (test code = 3.4 mg/dL 2.3-4.7 604) [id number] 04:31:00 Test Item Value Reference Range Interpretation Comments MAGNESIUM (BEAKER) (test code = 2.1 mg/dL 1.6-2.6 627) BASIC METABOLIC [id number] 04:31:00 Test Item Value Reference Range Interpretation [...] PATIEN TS. CBC W/PLT COUNT & AUTO [id number] 04:15:00 Test Item Value Reference Range Interpretation [...] 0-1 PERCENT (BEAKER) (test code = 2801) [id number] 15:17:00 Test Item Value Reference Range Interpretation Comments POTASSIUM (BEAKER) (test code = 4.5 meq/L 3.5-5.1 379) [id number] 15:17:00 Test Item Value Reference Range Interpretation Comments MAGNESIUM (BEAKER) (test code = 2.3 mg/dL 1.6-2.6 627) [id number] 15:17:00 Test Item Value Reference Range Interpretation Comments PHOSPHORUS (BEAKER) (test code = 2.5 mg/dL 2.3-4.7 604) HEMOGLOBIN AND [id number] 14:53:00 Test Item Value Reference Range Interpretation Comments HEMOGLOBIN (BEAKER) (test code = 14.4 GM/DL 11.2-15.7 410) HEMATOCRIT (BEAKER) (test code = 44.9 % 34.1-44.9 411) [id number] 09:39:00 Test Item Value Reference Range Interpretation Comments POTASSIUM (BEAKER) (test code = 3.7 meq/L 3.5-5.1 379) [id number] 09:39:00 Test Item Value Reference Range Interpretation Comments MAGNESIUM (BEAKER) (test code = 2.4 mg/dL 1.6-2.6 627) RAD, CHEST, 1 VIEW, NON [id number] 08:09:00Reason for exam:->pulm edemaShould this be performed [...] Location: [facility] Reading Room POCT-GLUCOSE [id number] 06:00:00 Test Item Value Reference Range Interpretation Comments POC-GLUCOSE METER 111 mg/dL 70-110 H TESTED AT [facility] 6720 (BEAKER) (test code = [place] 1538) [address] [id number] 05:22:00 Test Item Value Reference Range Interpretation Comments PHOSPHORUS (BEAKER) (test code = 2.9 mg/dL 2.3-4.7 604) [id number] 05:22:00 Test Item Value Reference Range Interpretation Comments MAGNESIUM (BEAKER) (test code = 2.4 mg/dL 1.6-2.6 627) BASIC METABOLIC [id number] 05:22:00 Test Item Value Reference Range Interpretation [...] PATIEN TS. CBC W/PLT COUNT & AUTO [id number] 05:03:00 Test Item Value Reference Range Interpretation [...] 0-1 PERCENT (BEAKER) (test code = 2801) [id number] 00:55:00 Test Item Value Reference Range Interpretation Comments POTASSIUM (BEAKER) (test code = 3.6 meq/L 3.5-5.1 379) [id number] 00:55:00 Test Item Value Reference Range Interpretation Comments MAGNESIUM (BEAKER) (test code = 2.0 mg/dL 1.6-2.6 627) POCT-GLUCOSE [id number] 00:32:00 Test Item Value Reference Range Interpretation Comments POC-GLUCOSE METER 125 mg/dL 70-110 H TESTED AT [facility] 6720 (BEAKER) (test code = R[place] 1538) [address] POCT-GLUCOSE [id number] 20:19:00 Test Item Value Reference Range Interpretation Comments POC-GLUCOSE METER 209 mg/dL 70-110 H TESTED AT [facility] 6720 (BEAKER) (test code = R[place] 1538) [address] [id number] 16:56:00 Test Item Value Reference Range Interpretation Comments PHOSPHORUS (BEAKER) (test code = 1.2 mg/dL 2.3-4.7 LL 604) [id number] 16:52:00 Test Item Value Reference Range Interpretation Comments POTASSIUM (BEAKER) (test code = 3.6 meq/L 3.5-5.1 379) [id number] 16:52:00 Test Item Value Reference Range Interpretation Comments MAGNESIUM (BEAKER) (test code = 2.3 mg/dL 1.6-2.6 627) HEMOGLOBIN AND [id number] 16:35:00 Test Item Value Reference Range Interpretation Comments HEMOGLOBIN (BEAKER) (test code = 12.6 GM/DL 11.2-15.7 410) HEMATOCRIT (BEAKER) (test code = 37.7 % 34.1-44.9 411) C. DIFFICILE GDH [id number] 16:20:00 Test Item Value Reference Range Interpretation Comments CDT TOXIN (test code Negative Negative = [id number]) CDT GDH ANTIGEN Positive Negative A C. difficile present but (test code = toxin not detec nava. [id number]) Indicates colon ization with non-toxige vijay strain [...] of kit performance was done by the [facility] Microbiology Lab prior to clinical use.[id number] 12:30:00 Test Item Value Reference Range Interpretation Comments POTASSIUM (BEAKER) (test code = 3.4 meq/L 3.5-5.1 L 379) Check Serum Potassium level 2 hours after oral potassium replacement completed or 30 min after intravenous potassium replacement.POCT-GLUCOSE [id number] 12:11:00 Test Item Value Reference Range Interpretation Comments POC-GLUCOSE METER 183 mg/dL 70-110 H TESTED AT [facility] 67 ([facility]) (test code = [place] 1538) [address] RAD, CHEST, 1 VIEW, NON [id number] 08:17:00Reason for exam:->pulm edemaShould this be performed at the bedside?->YesFINAL REPORT Chest, one view History: Pulmonary edema Comparison: 10/05/2018 Fi ndings:Clear lungs. Normal size heart. No pleural effusion or pneumothorax. Impression:No acute findings in the chest Signed: Mehul Crowdereport Verified Date/Time: 10/06/2018 08:17:06 Reading Location: [address] Consult Reading Room POCT-GLUCOSE [id number] 05:51:00 Test Item Value Reference Range Interpretation Comments POC-GLUCOSE METER 129 mg/dL 70-110 H TESTED AT [facility] 67 ([employer]) (test code = RODOLFO Pitts [facility] 1538) [address] [id number] 05:17:00 Test Item Value Reference Range Interpretation Comments PHOSPHORUS (BEAKER) (test code = 1.3 mg/dL 2.3-4.7 LL 604) BASIC METABOLIC [id number] 05:14:00 Test Item Value Reference Range Interpretation [...] S NOT APPLICABLE FOR DIALYSIS PATIEN TS. [id number] 05:06:00 Test Item Value Reference Range Interpretation Comments MAGNESIUM (BEAKER) (test code = 2.2 mg/dL 1.6-2.6 627) CBC W/PLT COUNT & AUTO [id number] 04:37:00 Test Item Value Reference Range Interpretation [...] PERCENT (BEAKER) (test code = 2801) POCT-GLUCOSE [id number] 00:13:00 Test Item Value Reference Range Interpretation Comments POC-GLUCOSE METER 143 mg/dL 70-110 H TESTED AT [facility] 6720 ([facility]) (test code = [facility] 1538) [address] TROPONIN [id number] 20:52:00 Test Item Value Reference Range Interpretation [...] 0.5-2.2 (test code = 2872) HEMOGLOBIN AND [id number] 20:08:00 Test Item Value Reference Range Interpretation Comments HEMOGLOBIN (BEAKER) (test code = 12.3 GM/DL 11.2-15.7 410) HEMATOCRIT (BEAKER) (test code = 37.4 % 34.1-44.9 411) HEMOGLOBIN AND [id number] 13:24:00 Test Item Value Reference Range Interpretation Comments HEMOGLOBIN (BEAKER) (test code = 11.8 GM/DL 11.2-15.7 410) HEMATOCRIT (BEAKER) (test code = 35.8 % 34.1-44.9 411) [id number] 12:51:00 Test Item Value Reference Range Interpretation Comments FERRITIN (BEAKER) (test code = 361) 155 ng/mL 5-275 POCT-GLUCOSE [id number] 12:20:00 Test Item Value Reference Range Interpretation Comments POC-GLUCOSE METER 154 mg/dL 70-110 H TESTED AT [facility] 6720 (BEAKER) (test code = [place] 1536) [address] IRON, TIBC, % SAT. (WITHOUT FERRITIN)2018-10-05 10:36:00 Test Item Value Reference Range Interpretation Comments IRON (BEAKER) (test code = 547) 41.0 ug/dL 40.0-160.0 TOTAL IRON BINDING CAPACITY 185 ug/dL 250-450 L (BEAKER) (test code = 769) IRON % SATURATION (2) (BEAKER) 22 % 20-55 (test code = 2590) HEMOGLOBIN [id number] 10:31:00 Test Item Value Reference Range Interpretation Comments HEMOGLOBIN A1C (BEAKER) (test code = 4.7 % 4.3-6.1 368) VITAMIN [id number] 09:05:00 Test Item Value Reference Range Interpretation Comments VITAMIN B12 (BEAKER) (test code = 885 pg/mL 213-816 H 774) POCT-GLUCOSE [id number] 07:16:00 Test Item Value Reference Range Interpretation Comments POC-GLUCOSE METER 152 mg/dL 70-110 H TESTED AT [facility] 6720 (BEAKER) (test code = [place] 1538) [address] RAD, CHEST, 1 VIEW, NON [id number] 06:56:00Reason for exam:->pulm edemaShould this be performed at the bedside?->YesFINAL REPORT RAD, CHEST, 1 VIEW, NON DEPT INDICATION: pulm edema COMPARISON: Prior day's exam FINDINGS: Portable frontal view of the chest. IMPRESSION: Lungs and pleura: Unchanged airspace and pleural opacities. No pneumothorax.Heart and mediastinum: Stable contours. Additional findings: None. Signed: Lisa Mcgovern Verified Date/Time: 10/05/2018 06:56:36 Reading Location: [address] Transitional Reading Room TROPONIN [id number] 06:09:00 Test Item Value Reference Range Interpretation [...] acute neurological disease, and persistent tachyarrhythmia.BASIC METABOLIC [id number] 05:51:00 Test Item Value Reference Range Interpretation [...] S NOT APPLICABLE FOR DIALYSIS PATIEN TS. [id number] 05:20:00 Test Item Value Reference Range Interpretation Comments PHOSPHORUS (BEAKER) (test code = 2.2 mg/dL 2.3-4.7 L 604) [id number] 05:20:00 Test Item Value Reference Range Interpretation Comments MAGNESIUM (BEAKER) (test code = 1.8 mg/dL 1.6-2.6 627) HEMOGLOBIN AND [id number] 05:01:00 Test Item Value Reference Range Interpretation Comments HEMOGLOBIN (BEAKER) (test code = 11.4 GM/DL 11.2-15.7 410) HEMATOCRIT (BEAKER) (test code = 34.4 % 34.1-44.9 411) CBC W/PLT COUNT & AUTO [id number] 04:58:00 Test Item Value Reference Range Interpretation [...] PERCENT (BEAKER) (test code = 2801) TROPONIN [id number] 01:17:00 Test Item Value Reference Range Interpretation [...] acute neurological disease, and persistent tachyarrhythmia.HEMOGLOBIN AND [id number] 00:52:00 Test Item Value Reference Range Interpretation Comments HEMOGLOBIN (BEAKER) (test code = 12.1 GM/DL 11.2-15.7 410) HEMATOCRIT (BEAKER) (test code = 36.4 % 34.1-44.9 411) POCT-GLUCOSE [id number] 00:34:00 Test Item Value Reference Range Interpretation Comments POC-GLUCOSE METER 164 mg/dL 70-110 H TESTED AT [facility] 6720 (BEAKER) (test code = [place] 1538) [address] TROPONIN [id number] 22:08:00 Test Item Value Reference Range Interpretation [...] failure, acidosis, acute neurological disease, and persistent tachyarrhythmia.[id number] 21:56:00 Test Item Value Reference Range Interpretation Comments PHOSPHORUS (BEAKER) (test code = 2.1 mg/dL 2.3-4.7 L 604) [id number] 21:56:00 Test Item Value Reference Range Interpretation Comments MAGNESIUM (BEAKER) (test code = 2.1 mg/dL 1.6-2.6 627) BASIC METABOLIC [id number] 21:56:00 Test Item Value Reference Range Interpretation [...] S NOT APPLICABLE FOR DIALYSIS PATIEN TS. [id number] 21:56:00 Test Item Value Reference Range Interpretation Comments PHOSPHORUS (BEAKER) (test code = 2.1 mg/dL 2.3-4.7 L 604) [id number] 21:56:00 Test Item Value Reference Range Interpretation Comments MAGNESIUM (BEAKER) (test code = 2.1 mg/dL 1.6-2.6 627) BASIC METABOLIC [id number] 21:56:00 Test Item Value Reference Range Interpretation [...] APPLICABLE FOR DIALYSIS PATIEN TS. BLOOD GAS, [id number] 21:46:00 Test Item Value Reference Range Interpretation [...] (test code = 1819) 100.0 % CALCIUM, [id number] 21:46:00 Test Item Value Reference Range Interpretation Comments CALCIUM IONIZED (BEAKER) (test 1.10 mmol/L 1.12-1.27 L code = 698) PH, BLOOD (BEAKER) (test code = 7.39 1810) URINALYSIS W/ REFLEX URINE [id number] 20:34:00 Test Item Value Reference Range Interpretation [...] (test code = 2795) TSH/FREE T4 IF [id number] 19:24:00 Test Item Value Reference Range Interpretation Comments THYROID STIMULATING HORMONE 0.79 uIU/mL 0.35-4.94 (BEAKER) (test code = 772) BASIC METABOLIC [id number] 18:15:00 Test Item Value Reference Range Interpretation [...] DIALYSIS PATIEN TS. LACTIC ACID, VENOUS, WHOLE [id number] 18:13:00 Test Item Value Reference Range Interpretation Comments LACTATE BLOOD VENOUS (2) (BEAKER) 1.0 mmol/L 0.5-2.2 (test code = 2872) [id number] 18:08:00 Test Item Value Reference Range Interpretation Comments AMMONIA (BEAKER) (test code = 348) 33 mol/L 18-72 HEMOGLOBIN AND [id number] 18:02:00 Test Item Value Reference Range Interpretation Comments HEMOGLOBIN (BEAKER) (test code = 12.2 GM/DL 11.2-15.7 410) HEMATOCRIT (BEAKER) (test code = 37.2 % 34.1-44.9 411) TROPONIN [id number] 17:28:00 Test Item Value Reference Range Interpretation [...] mmol/L 0.5-2.2 (test code = 2872) POCT-GLUCOSE [id number] 16:55:00 Test Item Value Reference Range Interpretation Comments POC-GLUCOSE METER 186 mg/dL 70-110 H TESTED AT [facility] 6720 (BEAKER) (test code = [place] 1538) [address] KETONE, [id number] 15:19:00 Test Item Value Reference Range Interpretation Comments KETONES, BLOOD (BEAKER) (test code 1.0 mmol/L <0.4 H = 1103) [id number] 15:19:00 Test Item Value Reference Range Interpretation Comments PHOSPHORUS (BEAKER) (test code = 604) < mg/dL 2.3-4.7 LL RAD, CHEST, 1 VIEW, NON [id number] 15:17:00Post-intubationReason for exam:- >SHOTNESS OF BREATH, R/O [...] HarrisMDReport Verified Date/Time: 10/04/2018 15:17:58 Reading Location: [address] Radiology Reading Room OSMOLALITY, [id number] 15:16:00 Test Item Value Reference Range Interpretation Comments OSMOLALITY, SERUM (BEAKER) (test 291 mOsm/kg 275-295 code = 615) LIPID [id number] 15:15:00 Test Item Value Reference Range Interpretation [...] 100-129 Borderline 130-159 High 160-189 Very High >=[id number] 15:15:00 Test Item Value Reference Range Interpretation Comments LIPASE (BEAKER) (test code = 749) 338 U/L 8-78 H [id number] 15:13:00 Test Item Value Reference Range Interpretation Comments MAGNESIUM (BEAKER) (test code = 1.3 mg/dL 1.6-2.6 L 627) LACTIC ACID, VENOUS, WHOLE [id number] 15:10:00 Test Item Value Reference Range Interpretation Comments LACTATE BLOOD VENOUS (2) (BEAKER) 1.2 mmol/L 0.5-2.2 (test code = 2872) CBC W/PLT COUNT & AUTO [id number] 15:06:00 Test Item Value Reference Range Interpretation [...] (BEAKER) (test code = 2801) OXYGEN SATURATION, [id number] 14:59:00 Test Item Value Reference Range Interpretation Comments O2 SATURATION (MEASURED) (BEAKER) 69.6 % (test code = 1455) FEMORAL LINEBLOOD GAS, [id number] 14:51:00 Test Item Value Reference Range Interpretation [...] (test code = 1819) 30.0 % TROPONIN [id number] 13:55:00 Test Item Value Reference Range Interpretation [...] (BEAKER) (test code = 700) COMPREHENSIVE METABOLIC [id number] 13:45:00 Test Item Value Reference Range Interpretation [...] DIALYSIS PATIEN TS. LACTIC ACID, VENOUS, WHOLE [id number] 13:41:00 Test Item Value Reference Range Interpretation Comments LACTATE BLOOD VENOUS (2) (BEAKER) 1.3 mmol/L 0.5-2.2 (test code = 2872) [id number] 13:39:00 Test Item Value Reference Range Interpretation Comments PARTIAL THROMBOPLASTIN TIME 30.3 seconds 22.5-36.0 (BEAKER) (test code = 760) [id number] 13:39:00 Test Item Value Reference Range Interpretation Comments FIBRINOGEN LEVEL (BEAKER) (test 284 mg/dl 225-434 code = 658) PROTHROMBIN [id number] 13:38:00 Test Item Value Reference Range Interpretation Comments PROTIME (BEAKER) (test code = 13.4 seconds 11.7-14.7 759) INR (BEAKER) (test code = 370) 1.0 <=5.9 RECOMMENDED COUMADIN/WARFARIN INR THERAPY RANGESSTANDARD DOSE: 2.0 - 3.0 Includes: PROPHYLAXIS forvenous thrombosis, systemic embolization; TREATMENT for venous thrombosis and/or pulmonary embolus.HIGH RISK: Target INR is 2.5-3.5 for patients with mechanical heart valves.POCT-GLUCOSE [id number] 18:40:00 Test Item Value Reference Range Interpretation Comments POC-GLUCOSE METER 148 mg/dL 70-110 H TESTED AT [facility] (test code = [place] 1538) [address] POCT-GLUCOSE [id number] 07:43:00 Test Item Value Reference Range Interpretation Comments POC-GLUCOSE METER 112 mg/dL 70-110 H TESTED AT [facility] 67[address] [facility] (test code = [place] 1538) [address] [id number] 07:13:00 Test Item Value Reference Range Interpretation Comments MAGNESIUM (BEAKER) (test code = 1.4 mg/dL 1.6-2.6 L 627) BASIC METABOLIC [id number] 07:13:00 Test Item Value Reference Range Interpretation [...] NOT APPLICABLE FOR DIALYSIS PATIEN TS. POCT-GLUCOSE [id number] 22:09:00 Test Item Value Reference Range Interpretation Comments POC-GLUCOSE METER 161 mg/dL 70-110 H TESTED AT [facility] 67[address] ([facility]) (test code = [facility] [place] [facility] 1538) [address] POCT-GLUCOSE [id number] 17:46:00 Test Item Value Reference Range Interpretation Comments POC-GLUCOSE METER 148 mg/dL 70-110 H TESTED AT [facility] 67[address] ([facility]) (test code = [facility] 1538) [address] POCT-GLUCOSE [id number] 12:00:00 Test Item Value Reference Range Interpretation Comments POC-GLUCOSE METER 137 mg/dL 70-110 H TESTED AT [facility] 6720 [facility] (test code = [facility] [place] [facility] 1538) [address] POCT-GLUCOSE [id number] 07:55:00 Test Item Value Reference Range Interpretation Comments POC-GLUCOSE METER 141 mg/dL 70-110 H TESTED AT [facility] 67[address] ([facility]) (test code = [place] [facility] 1538) [address] [id number] 05:30:00 Test Item Value Reference Range Interpretation Comments MAGNESIUM (BEAKER) (test code = 1.4 mg/dL 1.6-2.6 L 627) BASIC METABOLIC [id number] 05:30:00 Test Item Value Reference Range Interpretation [...] APPLICABLE FOR DIALYSIS PATIEN TS. HEMOGLOBIN AND [id number] 05:07:00 Test Item Value Reference Range Interpretation Comments HEMOGLOBIN (BEAKER) (test code = 8.8 GM/DL 11.2-15.7 L 410) HEMATOCRIT (BEAKER) (test code = 28.4 % 34.1-44.9 L 411) BLOOD [id number] 00:00:00 Test Item Value Reference Range Interpretation Comments CULTURE (BEAKER) (test No growth in 5 days code = 1095) BLOOD [id number] 00:00:00 Test Item Value Reference Range Interpretation Comments CULTURE (BEAKER) (test No growth in 5 days code = 1095) POCT-GLUCOSE [id number] 22:59:00 Test Item Value Reference Range Interpretation Comments POC-GLUCOSE METER 141 mg/dL 70-110 H TESTED AT [facility] 6720 (BEAKER) (test code = [place] 1538) [address] HEMOGLOBIN AND [id number] 16:50:00 Test Item Value Reference Range Interpretation Comments HEMOGLOBIN (BEAKER) (test code = 9.6 GM/DL 11.2-15.7 L 410) HEMATOCRIT (BEAKER) (test code = 30.8 % 34.1-44.9 L 411) POCT-GLUCOSE [id number] 13:15:00 Test Item Value Reference Range Interpretation Comments POC-GLUCOSE METER 144 mg/dL 70-110 H TESTED AT [facility] 6720 (BEAKER) (test code = [place] 1538) [address] POCT-GLUCOSE [id number] 08:27:00 Test Item Value Reference Range Interpretation Comments POC-GLUCOSE METER 125 mg/dL 70-110 H TESTED AT [facility] 6720 (BEAKER) (test code = [facility] [place] 1538) [address] [id number] 07:54:00 Test Item Value Reference Range Interpretation Comments MAGNESIUM (BEAKER) (test code = 1.0 mg/dL 1.6-2.6 LL 627) BASIC METABOLIC [id number] 07:25:00 Test Item Value Reference Range Interpretation [...] APPLICABLE FOR DIALYSIS PATIEN TS. HEMOGLOBIN AND [id number] 07:15:00 Test Item Value Reference Range Interpretation Comments HEMOGLOBIN (BEAKER) (test code = 8.5 GM/DL 11.2-15.7 L 410) HEMATOCRIT (BEAKER) (test code = 27.0 % 34.1-44.9 L 411) CBC W/PLT COUNT & AUTO [id number] 07:15:00 Test Item Value Reference Range Interpretation [...] [facility]) (test code = 2801) POCT-GLUCOSE [id number] 00:54:00 Test Item Value Reference Range Interpretation Comments POC-GLUCOSE METER 165 mg/dL 70-110 H TESTED AT [place] [address] ([facility]) (test code = [facility] 1538) [address] POCT-GLUCOSE [id number] 18:13:00 Test Item Value Reference Range Interpretation Comments POC-GLUCOSE METER 255 mg/dL 70-110 H TESTED AT [place] [address] ([facility]) (test code = [facility] 1538) [address] HEMOGLOBIN AND [id number] 17:10:00 Test Item Value Reference Range Interpretation Comments HEMOGLOBIN (BEAKER) (test code = 9.0 GM/DL 11.2-15.7 L 410) HEMATOCRIT (BEAKER) (test code = 28.1 % 34.1-44.9 L 411) POCT-GLUCOSE [id number] 11:29:00 Test Item Value Reference Range Interpretation Comments POC-GLUCOSE METER 204 mg/dL 70-110 H TESTED AT [place] [address] ([facility]) (test code = [facility] 1538) [address] CBC W/PLT COUNT & AUTO [id number] 10:04:00 Test Item Value Reference Range Interpretation [...] PERCENT (BEAKER) (test code = 2801) POCT-GLUCOSE [id number] 08:20:00 Test Item Value Reference Range Interpretation Comments POC-GLUCOSE METER 128 mg/dL 70-110 H TESTED AT [facility] 6720 (BEAKER) (test code = [place] 1538) [address] [id number] 05:08:00 Test Item Value Reference Range Interpretation Comments MAGNESIUM (BEAKER) 1.3 mg/dL 1.6-2.6 L Specimen slightly (test code = 627) hemolyzed [id number] 05:08:00 Test Item Value Reference Range Interpretation Comments PHOSPHORUS (BEAKER) 2.6 mg/dL 2.3-4.7 Specimen slightly (test code = 604) hemolyzed BASIC METABOLIC [id number] 05:08:00 Test Item Value Reference Range Interpretation [...] APPLICABLE FOR DIALYSIS PATIEN TS. HEMOGLOBIN AND [id number] 04:46:00 Test Item Value Reference Range Interpretation Comments HEMOGLOBIN (BEAKER) (test code = 8.7 GM/DL 11.2-15.7 L 410) HEMATOCRIT (BEAKER) (test code = 27.8 % 34.1-44.9 L 411) POCT-GLUCOSE [id number] 00:51:00 Test Item Value Reference Range Interpretation Comments POC-GLUCOSE METER 142 mg/dL 70-110 H TESTED AT [facility] 6720 (BEAKER) (test code = [place] 2667) [address] HEMOGLOBIN AND [id number] 20:58:00 Test Item Value Reference Range Interpretation Comments HEMOGLOBIN (BEAKER) (test code = 9.6 GM/DL 11.2-15.7 L 410) HEMATOCRIT (BEAKER) (test code = 29.6 % 34.1-44.9 L 411) POCT-GLUCOSE [id number] 18:36:00 Test Item Value Reference Range Interpretation Comments POC-GLUCOSE METER 228 mg/dL 70-110 H TESTED AT [place] [address] (BEAKER) (test code = [place] 1538) [address] SPUTUM CULTURE + GRAM [id number] 15:57:00 Test Item Value Reference Range Interpretation Comments CULTURE (BEAKER) 2+ Normal respiratory (test code = 1095) cosme present GRAM STAIN RESULT 4+ WBCs (BEAKER) (test code = 1123) GRAM STAIN RESULT No epithelial cells (BEAKER) (test code = 34170) GRAM STAIN RESULT 1+ yeast (BEAKER) (test code = 77386) HEMOGLOBIN AND [id number] 12:05:00 Test Item Value Reference Range Interpretation Comments HEMOGLOBIN (BEAKER) (test code = 8.5 GM/DL 11.2-15.7 L 410) HEMATOCRIT (BEAKER) (test code = 25.9 % 34.1-44.9 L 411) POCT-GLUCOSE [id number] 11:40:00 Test Item Value Reference Range Interpretation Comments POC-GLUCOSE METER 180 mg/dL 70-110 H TESTED AT [place] [address] (BEAKER) (test code = [place] [facility] 1538) [address] POCT-GLUCOSE [id number] 06:14:00 Test Item Value Reference Range Interpretation Comments POC-GLUCOSE METER 143 mg/dL 70-110 H TESTED AT [place] [address] (BEAKER) (test code = [place] 1538) [address] BASIC METABOLIC [id number] 05:05:00 Test Item Value Reference Range Interpretation [...] APPLICABLE FOR DIALYSIS PATIEN TS. VANCOMYCIN LEVEL, [id number] 05:04:00 Test Item Value Reference Range Interpretation Comments VANCOMYCIN RANDOM (BEAKER) (test 23.1 ug/mL code = 523) Reference Range: No [id number] 05:02:00 Test Item Value Reference Range Interpretation Comments PHOSPHORUS (BEAKER) (test code = 3.9 mg/dL 2.3-4.7 604) [id number] 05:02:00 Test Item Value Reference Range Interpretation Comments MAGNESIUM (BEAKER) (test code = 1.4 mg/dL 1.6-2.6 L 627) HEMOGLOBIN AND [id number] 04:36:00 Test Item Value Reference Range Interpretation Comments HEMOGLOBIN (BEAKER) (test code = 7.5 GM/DL 11.2-15.7 L 410) HEMATOCRIT (BEAKER) (test code = 22.8 % 34.1-44.9 L 411) POCT-GLUCOSE [id number] 00:02:00 Test Item Value Reference Range Interpretation Comments POC-GLUCOSE METER 180 mg/dL 70-110 H TESTED AT [place] [address] (BEAKER) (test code = [facility] 1538) [address] HEMOGLOBIN AND [id number] 20:48:00 Test Item Value Reference Range Interpretation Comments HEMOGLOBIN (BEAKER) (test code = 8.3 GM/DL 11.2-15.7 L 410) HEMATOCRIT (BEAKER) (test code = 25.0 % 34.1-44.9 L 411) POCT-GLUCOSE [id number] 18:14:00 Test Item Value Reference Range Interpretation Comments POC-GLUCOSE METER 131 mg/dL 70-110 H TESTED AT [place] [address] (BEAKER) (test code = [facility] 1538) [address] VANCOMYCIN LEVEL, [id number] 16:48:00 Test Item Value Reference Range Interpretation Comments VANCOMYCIN RANDOM (BEAKER) (test 28.3 ug/mL code = 523) Reference Range: No NormalsPOCT-GLUCOSE [id number] 12:43:00 Test Item Value Reference Range Interpretation Comments POC-GLUCOSE METER 157 mg/dL 70-110 H TESTED AT [facility] 6720 (BEAKER) (test code = [place] 1538) [address] HEMOGLOBIN AND [id number] 12:20:00 Test Item Value Reference Range Interpretation Comments HEMOGLOBIN (BEAKER) (test code = 8.3 GM/DL 11.2-15.7 L 410) HEMATOCRIT (BEAKER) (test code = 25.4 % 34.1-44.9 L 411) BASIC METABOLIC [id number] 05:37:00 Test Item Value Reference Range Interpretation [...] PATIEN TS. CBC W/PLT COUNT & AUTO [id number] 04:41:00 Test Item Value Reference Range Interpretation [...] 0-1 H PERCENT (BEAKER) (test code = 280) POCT-GLUCOSE [id number] 00:06:00 Test Item Value Reference Range Interpretation Comments POC-GLUCOSE METER 174 mg/dL 70-110 H TESTED AT [facility] 6720 (BEAKER) (test code = [place] 1538) [address] POCT-GLUCOSE [id number] 17:26:00 Test Item Value Reference Range Interpretation Comments POC-GLUCOSE METER 179 mg/dL 70-110 H TESTED AT [facility] 67[address] (MARIA ELENA) (test code = [place] 1538) [address] [place], [id number] 17:19:00FINAL REPORT CLINICAL HISTORY: Recent pancreatitis, shock [...] Clemens Verified Date/Time: 05/05/2018 17:19:54 Reading Location: [address] Reading Room TROPONIN I 2018-05-05 16:31:00 [...] acidosis, acute neurological disease, and persistent tachyarrhythmia.POCT-GLUCOSE [id number] 12:29:00 Test Item Value Reference Range Interpretation Comments POC-GLUCOSE METER 139 mg/dL 70-110 H TESTED AT [facility] 6720 (BEAKER) (test code = [place] 1538) [address] URINALYSIS W/ REFLEX URINE [id number] 09:51:00 Test Item Value Reference Range Interpretation [...] SOURCE(BEAKER) (test code = 2795) SODIUM, RANDOM [id number] 09:46:00 Test Item Value Reference Range Interpretation Comments SODIUM URINE (BEAKER) (test code = 23 meq/L 243) Reference Range: No NormalsCREATININE, RANDOM [id number] 09:32:00 Test Item Value Reference Range Interpretation Comments CREATININE URINE (BEAKER) (test 67.0 mg/dL code = 375) Reference Range: No NormalsUREA NITROGEN, RANDOM [id number] 09:32:00 Test Item Value Reference Range Interpretation Comments UREA NITROGEN URINE (BEAKER) (test 170 mg/dL code = 538) Reference Range: No NormalsLACTIC ACID, ARTERIAL, WHOLE [id number] 09:16:00 Test Item Value Reference Range Interpretation Comments LACTATE BLOOD ARTERIAL (2) 0.8 mmol/L 0.5-2.2 (BEAKER) (test code = 2874) Effective 12/15/2015: Units/Reference Range ChangeNew: 0.5-2.2 mmol/L Previous: 5-20 mg/dLHEMATOCRIT-STAT [id number] 09:02:00 Test Item Value Reference Range Interpretation Comments HEMATOCRIT (BEAKER) (test code = 411) 23.0 % 36.0-45.0 L BLOOD GAS, [id number] 09:02:00 Test Item Value Reference Range Interpretation [...] (test code = 1819) 30.0 % HEMOGLOBIN-STAT [id number] 09:01:00 Test Item Value Reference Range Interpretation Comments HEMOGLOBIN (BEAKER) (test code = 7.7 g/dL 12.0-15.0 L 410) TROPONIN [id number] 08:24:00 Test Item Value Reference Range Interpretation [...] acute neurological disease, and persistent tachyarrhythmia.BASIC METABOLIC [id number] 08:22:00 Test Item Value Reference Range Interpretation [...] APPLICABLE FOR DIALYSIS PATIEN TS. BLOOD GAS, [id number] 07:56:00 Test Item Value Reference Range Interpretation [...] code = 1819) 30.0 % VANCOMYCIN LEVEL, [id number] 05:44:00 Test Item Value Reference Range Interpretation Comments VANCOMYCIN RANDOM (BEAKER) (test 16.7 ug/mL code = 523) Reference Range: No NormalsLACTIC ACID, VENOUS, WHOLE [id number] 05:22:00 Test Item Value Reference Range Interpretation Comments LACTATE BLOOD VENOUS (2) (BEAKER) 0.7 mmol/L 0.5-2.2 (test code = 2872) Effective 12/15/2015: Units/Reference Range ChangeNew: 0.5-2.2 mmol/L Previous: 5-20 mg/dLBLOOD GAS, [id number] 05:03:00 Test Item Value Reference Range Interpretation [...] (test code = 1819) 30.0 % TROPONIN [id number] 05:00:00 Test Item Value Reference Range Interpretation [...] failure, acidosis, acute neurological disease, and persistent tachyarrhythmia.[id number] 04:54:00 Test Item Value Reference Range Interpretation Comments LIPASE (BEAKER) (test code = 749) 47 U/L 8-78 HEPATIC FUNCTION [id number] 04:54:00 Test Item Value Reference Range Interpretation [...] 6-55 347) RAD, CHEST, 1 VIEW, NON [id number] 04:49:00Reason for exam:- >IntubationShould this be performed [...] [place] Verified Date/Time: 05/05/2018 04:49:25 Reading Location: [address] Reading Room [id number] 04:47:00 Test Item Value Reference Range Interpretation Comments PROCALCITONIN (BEAKER) (test code 2.43 ng/mL <0.05 H = 3036) SEPSIS RISK (ng/mL)Low: 0.05-0.50Intermediate: 0.51-2.00High: >=2.01RAD, ABDOMEN/KUB, 1 VIEW [id number] 04:47:00Reason for exam:->OG placement Should this be [...] MDReport Verified Date/Time: 05/05/2018 04:47:09 Reading Location: [address] Reading Room BLOOD GAS, [id number] 03:34:00 Test Item Value Reference Range Interpretation [...] 40.0 % CBC W/PLT COUNT & AUTO [id number] 03:25:00 Test Item Value Reference Range Interpretation [...] code = 2801) LACTIC ACID, VENOUS, WHOLE [id number] 02:41:00 Test Item Value Reference Range Interpretation Comments LACTATE BLOOD VENOUS (2) (BEAKER) 0.5 mmol/L 0.5-2.2 (test code = 2872) Effective 12/15/2015: Units/Reference Range ChangeNew: 0.5-2.2 mmol/L Previous: 5-20 mg/dLBLOOD GAS, [id number] 02:10:00 Test Item Value Reference Range Interpretation [...] code = 1819) 28.0 % BASIC METABOLIC [id number] 01:46:00 Test Item Value Reference Range Interpretation [...] pg/mL 0-100 H (test code = 700) [id number] 01:31:00 Test Item Value Reference Range Interpretation Comments MAGNESIUM (BEAKER) (test code = 1.8 mg/dL 1.6-2.6 627) LACTIC ACID, VENOUS, WHOLE [id number] 01:29:00 Test Item Value Reference Range Interpretation Comments LACTATE BLOOD VENOUS (2) (BEAKER) 0.7 mmol/L 0.5-2.2 (test code = 2872) Effective 12/15/2015: Units/Reference Range ChangeNew: 0.5-2.2 mmol/L Previous: 5-20 mg/dLCBC W/PLT COUNT & AUTO [id number] 01:14:00 Test Item Value Reference Range Interpretation [...] PERCENT (BEAKER) (test code = 2801) POCT-GLUCOSE [id number] 01:01:00 Test Item Value Reference Range Interpretation Comments POC-GLUCOSE METER 138 mg/dL 70-110 H TESTED AT [facility] 6720 (BEAKER) (test code = [place] [facility] 1538) [address] RAD, CHEST, 1 VIEW, NON [id number] 00:17:00Reason for exam:->concern for respiratory distressShould this [...] MDReport Verified Date/Time: 05/05/2018 00:17:28 Reading Location: [address] Reading Room POCT-LACTIC ACID, [id number] 23:56:00 Test Item Value Reference Range Interpretation Comments POC-LACTIC ACID, 0.9 mmol/L 0.4-1.3 TESTED AT [facility] 6720 ARTERIAL (BEAKER) [place] (test code = 2804) [address] POCT-BLOOD GASES, [id number] 23:56:00 Test Item Value Reference Range Interpretation Comments TEMP, CELSIUS-POC 36.1 (BEAKER) (test code = 1834) FIO2-POC (BEAKER) 32 TESTED AT [place] [address] (test code = 1835) [facility] [address] PH, ARTERIAL-POC 7.192 7.350-7.450 LL (BEAKER) (test [...] L ARTERIAL-POC (BEAKER) (test code = 1841) [id number] 23:56:00 Test Item Value Reference Range Interpretation Comments POC-SODIUM (BEAKER) 127 meq/L 135-148 L TESTED A T [place] [address] (test code = 1542) [facility] [address] [id number] 23:56:00 Test Item Value Reference Range Interpretation Comments POC-POTASSIUM 4.8 meq/L 3.6-5.5 TESTED AT [place] [address] (BEAKER) (test code [facility] [address] = 1540) [id number] 23:56:00 Test Item Value Reference Range Interpretation Comments POC-GLUCOSE (BEAKER) 116 mg/dL 70-110 H TESTED AT [place] [address] (test code = 1855) [facility] [address] POCT-CALCIUM [id number] 23:56:00 Test Item Value Reference Range Interpretation Comments POC-CALCIUM IONIZED 1.20 mmol/L 1.12-1.27 TESTED A [place] [address] ([facility]) (test code = [place] [facility] 1536) [address] [id number] 23:56:00 Test Item Value Reference Range Interpretation Comments POC-HEMATOCRIT 25 % 36-45 L TESTED AT [place] [address] ([facility]) (test code = [facility] [address] 1857) [id number] 23:56:00 Test Item Value Reference Range Interpretation Comments POC-HEMOGLOBIN 8.5 g/dL 12.0-15.0 L TESTED AT [place] [address] ([facility]) (test code = [facility] Gisselle [facility] 1856) [address]HJFXTH AT [place] [address] RADHA [facility] [address] POCT-GLUCOSE [id number] 21:48:00 Test Item Value Reference Range Interpretation Comments POC-GLUCOSE METER 136 mg/dL 70-110 H TESTED AT [place] [address] ([facility]) (test code = [facility] 1538) [address] POCT-GLUCOSE [id number] 19:03:00 Test Item Value Reference Range Interpretation Comments POC-GLUCOSE METER 131 mg/dL 70-110 H TESTED AT [place] [address] ([facility]) (test code = [facility] 1538) [address] POCT-BLOOD GASES, [id number] 16:54:00 Test Item Value Reference Range Interpretation Comments TEMP, CELSIUS-POC 37.0 ([facility]) (test code = 1834) FIO2-POC (AKER) TESTED AT [place] [address] (test code = 1835) RADHA Black [facility] [address] PH, VENOUS-POC 7.224 7.320-7.420 L ([facility] ([facility]) (test code = 1847) [id number] 16:54:00 Test Item Value Reference Range Interpretation Comments POC-SODIUM ([facility]) 129 meq/L 135-148 L TESTED [place] [address] (test code = 1542) [facility] [address] [id number] 16:54:00 Test Item Value Reference Range Interpretation Comments POC-POTASSIUM 4.7 meq/L 3.6-5.5 TESTED AT [place] [address] ([facility]) (test code [place] [id number] = 1540) [id number] 16:54:00 Test Item Value Reference Range Interpretation Comments POC-GLUCOSE ([facility]) 116 mg/dL 70-110 H TESTED AT [place] [address] (test code = 1855) [facility] [address] POCT-CALCIUM [id number] 16:54:00 Test Item Value Reference Range Interpretation Comments POC-CALCIUM IONIZED 1.19 mmol/L 1.12-1.27 TESTED [place] [address] ([facility]) (test code = [facility] 1532) [address] [id number] 16:54:00 Test Item Value Reference Range Interpretation Comments POC-HEMATOCRIT 25 % 36-45 L TESTED AT [place] [address] ([facility]) (test code = [facility] [address] 6226) [id number] 16:54:00 Test Item Value Reference Range Interpretation Comments POC-HEMOGLOBIN 8.5 g/dL 12.0-15.0 L TESTED AT [place] [address] ([facility]) (test code = [facility] 7983) [id number] AT [place] [address] [facility] [address] POCT-GLUCOSE [id number] 13:26:00 Test Item Value Reference Range Interpretation Comments POC-GLUCOSE METER 124 mg/dL 70-110 H TESTED AT [place] [address] (BEAKER) (test code = [place] 1538) [address] POCT-LACTIC ACID, [id number] 12:57:00 Test Item Value Reference Range Interpretation Comments POC-LACTIC ACID, 1.1 mmol/L 0.9-1.7 TESTED AT [facility] [address] ([facility]AKER) (test [place] code = 2805) [address] COMPREHENSIVE METABOLIC [id number] 09:56:00 Test Item Value Reference Range Interpretation [...] S NOT APPLICABLE FOR DIALYSIS PATIEN TS. [id number] 09:48:00 Test Item Value Reference Range Interpretation Comments PHOSPHORUS ([facility]AKER) (test code = 5.0 mg/dL 2.3-4.7 H 604) [id number] 09:48:00 Test Item Value Reference Range Interpretation Comments MAGNESIUM ([facility]AKER) (test code = 1.9 mg/dL 1.6-2.6 627) POCT-GLUCOSE [id number] 09:23:00 Test Item Value Reference Range Interpretation Comments POC-GLUCOSE METER 148 mg/dL 70-110 H TESTED AT [facility] 6720 (BEAKER) (test code = [place] 1538) [address] CBC (HEMOGRAM ONLY)2018-05-04 07:04:00 Test Item Value [...] 0-0 (BEAKER) (test code = 413) PROTHROMBIN [id number] 06:20:00 Test Item Value Reference Range Interpretation Comments PROTIME (BEAKER) (test code = 14.0 seconds 11.7-14.7 759) INR (BEAKER) (test code = 370) 1.1 <=5.9 RECOMMENDED COUMADIN/WARFARIN INR THERAPY RANGESSTANDARD DOSE: 2.0 - 3.0 Includes: PROPHYLAXIS forvenous thrombosis, systemic embolization; TREATMENT for venous thrombosis and/or pulmonary embolus.HIGH RISK: Target INR is 2.5-3.5 for patients with mechanical heart valves.[id number] 06:20:00 Test Item Value Reference Range Interpretation Comments PARTIAL THROMBOPLASTIN TIME 38.0 seconds 22.5-36.0 H ([facility]) (test code = 760) POCT-GLUCOSE [id number] 21:01:00 Test Item Value Reference Range Interpretation Comments POC-GLUCOSE METER 113 mg/dL 70-110 H TESTED AT [place] [address] ([facility]) (test code = [facility] 1538) [address] POCT-GLUCOSE [id number] 17:33:00 Test Item Value Reference Range Interpretation Comments POC-GLUCOSE METER 123 mg/dL 70-110 H TESTED AT [place] [address] ([facility]) (test code = [facility] 1538) [address] POCT-GLUCOSE [id number] 12:19:00 Test Item Value Reference Range Interpretation Comments POC-GLUCOSE METER 127 mg/dL 70-110 H TESTED AT [place] [address] ([facility]) (test code = [facility] 1538) [address] POCT-GLUCOSE [id number] 08:08:00 Test Item Value Reference Range Interpretation Comments POC-GLUCOSE METER 129 mg/dL 70-110 H TESTED AT [place] [address] ([facility]) (test code = [facility] 1538) [address] BLOOD GAS, [id number] 07:23:00 Test Item Value Reference Range Interpretation [...] code = 1819) 20.0 % COMPREHENSIVE METABOLIC [id number] 07:11:00 Test Item Value Reference Range Interpretation [...] S NOT APPLICABLE FOR DIALYSIS PATIEN TS. [id number] 07:09:00 Test Item Value Reference Range Interpretation Comments PHOSPHORUS (BEAKER) (test code = 3.6 mg/dL 2.3-4.7 604) [id number] 07:09:00 Test Item Value Reference Range Interpretation Comments MAGNESIUM (BEAKER) (test code = 1.8 mg/dL 1.6-2.6 627) [id number] 06:34:00 Test Item Value Reference Range Interpretation [...] 0-0 (BEAKER) (test code = 413) PROTHROMBIN [id number] 06:33:00 Test Item Value Reference Range Interpretation Comments PROTIME (BEAKER) (test code = 14.5 seconds 11.7-14.7 759) INR (BEAKER) (test code = 370) 1.1 <=5.9 RECOMMENDED COUMADIN/WARFARIN INR THERAPY RANGESSTANDARD DOSE: 2.0 - 3.0 Includes: PROPHYLAXIS forvenous thrombosis, systemic embolization; TREATMENT for venous thrombosis and/or pulmonary embolus.HIGH RISK: Target INR is 2.5-3.5 for patients with mechanical heart valves.LACTIC ACID, VENOUS, WHOLE [id number] 06:32:00 Test Item Value Reference Range Interpretation Comments LACTATE BLOOD VENOUS (2) (BEAKER) 1.0 mmol/L 0.5-2.2 (test code = 2872) Effective 12/15/2015: Units/Reference Range ChangeNew: 0.5-2.2 mmol/L Previous: 5-20 mg/dLPOCT-GLUCOSE [id number] 21:06:00 Test Item Value Reference Range Interpretation Comments POC-GLUCOSE METER 168 mg/dL 70-110 H TESTED AT [place] [address] ([facility]) (test code = [facility] 1538) [address] POCT-GLUCOSE [id number] 19:02:00 Test Item Value Reference Range Interpretation Comments POC-GLUCOSE METER 122 mg/dL 70-110 H TESTED AT [place] [address] ([facility]) (test code = [facility] 1538) [address] [id number] 18:09:00 Test Item Value Reference Range Interpretation Comments PHOSPHORUS (BEAKER) (test code = 2.7 mg/dL 2.3-4.7 604) [id number] 18:09:00 Test Item Value Reference Range Interpretation Comments MAGNESIUM (BEAKER) (test code = 1.9 mg/dL 1.6-2.6 627) [id number] 18:09:00 Test Item Value Reference Range Interpretation Comments CALCIUM (BEAKER) (test code = 697) 8.7 mg/dL 8.4-10.2 POCT-GLUCOSE [id number] 13:13:00 Test Item Value Reference Range Interpretation Comments POC-GLUCOSE METER 162 mg/dL 70-110 H TESTED AT [place] [address] ([facility]) (test code = [facility] 1538) [address] RAD, CHEST, 1 VIEW, NON [id number] 12:12:00Reason for exam:->Pulmobnary edema?Should this be performed [...] Crowe Verified Date/Time: 05/02/2018 12:12:11 [facility] POCT-GLUCOSE [id number] 08:27:00 Test Item Value Reference Range Interpretation Comments POC-GLUCOSE METER 128 mg/dL 70-110 H TESTED AT [facility] 6720 (BEAKER) (test code = [place] 1538) [address] COMPREHENSIVE METABOLIC [id number] 07:40:00 Test Item Value Reference Range Interpretation [...] S NOT APPLICABLE FOR DIALYSIS PATIEN TS. [id number] 07:34:00 Test Item Value Reference Range Interpretation Comments PHOSPHORUS (BEAKER) (test code = 2.7 mg/dL 2.3-4.7 604) [id number] 07:34:00 Test Item Value Reference Range Interpretation Comments MAGNESIUM (BEAKER) (test code = 1.9 mg/dL 1.6-2.6 627) LACTIC ACID, VENOUS, WHOLE [id number] 06:59:00 Test Item Value Reference Range Interpretation [...] WBC 0-0 (BEAKER) (test code = 413) [id number] 06:34:00 Test Item Value Reference Range Interpretation Comments PARTIAL THROMBOPLASTIN TIME 38.8 seconds 22.5-36.0 H (BEAKER) (test code = 760) PROTHROMBIN [id number] 06:33:00 Test Item Value Reference Range Interpretation Comments PROTIME (BEAKER) (test code = 14.8 seconds 11.7-14.7 H 759) INR (BEAKER) (test code = 370) 1.2 <=5.9 RECOMMENDED COUMADIN/WARFARIN INR THERAPY RANGESSTANDARD DOSE: 2.0 - 3.0 Includes: PROPHYLAXIS forvenous thrombosis, systemic embolization; TREATMENT for venous thrombosis and/or pulmonary embolus.HIGH RISK: Target INR is 2.5-3.5 for patients with mechanical heart valves.BLOOD GAS, [id number] 06:29:00 Test Item Value Reference Range Interpretation [...] (test code = 1819) 20 % BLOOD [id number] 06:00:00 Test Item Value Reference Range Interpretation Comments CULTURE (BEAKER) (test No growth in 5 days code = 1095) BLOOD [id number] 06:00:00 Test Item Value Reference Range Interpretation Comments CULTURE (BEAKER) (test No growth in 5 days code = 1095) POCT-GLUCOSE [id number] 20:46:00 Test Item Value Reference Range Interpretation Comments POC-GLUCOSE METER 157 mg/dL 70-110 H TESTED AT [place] [address] ([facility]) (test code = [facility] 1538) [address] HEMOGLOBIN AND [id number] 14:24:00 Test Item Value Reference Range Interpretation Comments HEMOGLOBIN (BEAKER) (test code = 7.9 GM/DL 11.2-15.7 L 410) HEMATOCRIT ([facility]) (test code = 23.3 % 34.1-44.9 L 411) POCT-GLUCOSE [id number] 13:32:00 Test Item Value Reference Range Interpretation Comments POC-GLUCOSE METER 116 mg/dL 70-110 H TESTED AT [place] [address] ([facility]) (test code = [facility] 1538) [address] [id number] 12:04:00 Test Item Value Reference Range Interpretation Comments PROCALCITONIN (AKER) (test code 2.57 ng/mL <0.05 H = 3036) SEPSIS RISK (ng/mL)Low: 0.05-0.50Intermediate: 0.51-2.00High: >=[id number] 11:04:00 Test Item Value Reference Range Interpretation Comments LIPASE ([facility]) (test code = 749) 36 U/L 8-78 POCT-GLUCOSE [id number] 07:09:00 Test Item Value Reference Range Interpretation Comments POC-GLUCOSE METER 91 mg/dL 70-110 TESTED AT [place] [address] ([facility]) (test code = [facility] [address] 1538) CALCIUM, [id number] 06:30:00 Test Item Value Reference Range Interpretation Comments CALCIUM IONIZED (BEAKER) (test 1.10 mmol/L 1.12-1.27 L code = 698) PH, BLOOD (BEAKER) (test code = 7.40 1810) BLOOD GAS, [id number] 05:31:00 Test Item Value Reference Range Interpretation [...] code = 1819) 20.0 % COMPREHENSIVE METABOLIC [id number] 05:10:00 Test Item Value Reference Range Interpretation [...] S NOT APPLICABLE FOR DIALYSIS PATIEN TS. [id number] 05:05:00 Test Item Value Reference Range Interpretation Comments PHOSPHORUS (BEAKER) (test code = 2.2 mg/dL 2.3-4.7 L 604) [id number] 05:05:00 Test Item Value Reference Range Interpretation Comments MAGNESIUM (BEAKER) (test code = 1.9 mg/dL 1.6-2.6 627) LACTIC ACID, VENOUS, WHOLE [id number] 04:44:00 Test Item Value Reference Range Interpretation Comments LACTATE BLOOD VENOUS (2) (BEAKER) 0.7 mmol/L 0.5-2.2 (test code = 2872) Effective 12/15/2015: Units/Reference Range ChangeNew: 0.5-2.2 mmol/L Previous: 5-20 mg/[id number] 04:42:00 Test Item Value Reference Range Interpretation Comments PARTIAL THROMBOPLASTIN TIME 41.1 seconds 22.5-36.0 H (BEAKER) (test code = 760) PROTHROMBIN [id number] 04:41:00 Test Item Value Reference Range Interpretation [...] H (AKER) (test code = 413) POCT-GLUCOSE [id number] 22:06:00 Test Item Value Reference Range Interpretation Comments POC-GLUCOSE METER 109 mg/dL 70-110 TESTED AT [place] [address] ([facility]) (test code = [place] 1538) [address] [id number] 21:01:00 Test Item Value Reference Range Interpretation Comments POTASSIUM (BEAKER) 4.1 meq/L 3.5-5.1 Specimen slightly (test code = 379) hemolyzed [id number] 18:20:00 Test Item Value Reference Range Interpretation Comments POTASSIUM (BEAKER) (test code = 4.0 meq/L 3.5-5.1 379) [id number] 18:20:00 Test Item Value Reference Range Interpretation Comments MAGNESIUM (BEAKER) (test code = 1.8 mg/dL 1.6-2.6 627) [id number] 18:20:00 Test Item Value Reference Range Interpretation Comments PHOSPHORUS (BEAKER) (test code = 1.9 mg/dL 2.3-4.7 L 604) [id number] 18:20:00 Test Item Value Reference Range Interpretation Comments CALCIUM (BEAKER) (test code = 697) 8.9 mg/dL 8.4-10.2 POCT-GLUCOSE [id number] 17:24:00 Test Item Value Reference Range Interpretation Comments POC-GLUCOSE METER 100 mg/dL 70-110 TESTED AT [place] [address] ([facility]) (test code = [place] 1538) [address] BLOOD GAS, [id number] 14:09:00 Test Item Value Reference Range Interpretation [...] (BEAKER) (test code = 1819) 100.0 % [id number] 13:11:00 Test Item Value Reference Range Interpretation Comments POTASSIUM (BEAKER) (test code = 4.2 meq/L 3.5-5.1 379) POCT-GLUCOSE [id number] 12:04:00 Test Item Value Reference Range Interpretation Comments POC-GLUCOSE METER 86 mg/dL 70-110 TESTED AT [facility] 6720 (BEAKER) (test code = [place] [facility] [address] 1538) [id number] 08:55:00 Test Item Value Reference Range Interpretation Comments POTASSIUM (BEAKER) (test code = 4.2 meq/L 3.5-5.1 379) BLOOD GAS, [id number] 08:49:00 Test Item Value Reference Range Interpretation [...] % Please obtain with patient off bipapPOCT-GLUCOSE [id number] 07:13:00 Test Item Value Reference Range Interpretation Comments POC-GLUCOSE METER 83 mg/dL 70-110 TESTED AT [facility] 6720 (BEAKER) (test code = [place] [address] 1538) [id number] 04:01:00 Test Item Value Reference Range Interpretation Comments PHOSPHORUS (BEAKER) (test code = 1.8 mg/dL 2.3-4.7 L 604) [id number] 04:01:00 Test Item Value Reference Range Interpretation Comments MAGNESIUM (BEAKER) (test code = 1.7 mg/dL 1.6-2.6 627) COMPREHENSIVE METABOLIC [id number] 04:01:00 Test Item Value Reference Range Interpretation [...] DIALYSIS PATIEN TS. LACTIC ACID, ARTERIAL, WHOLE [id number] 03:49:00 Test Item Value Reference Range Interpretation [...] 0-0 H (BEAKER) (test code = 413) [id number] 03:47:00 Test Item Value Reference Range Interpretation Comments PARTIAL THROMBOPLASTIN TIME 32.8 seconds 22.5-36.0 (BEAKER) (test code = 760) PROTHROMBIN [id number] 03:46:00 Test Item Value Reference Range Interpretation Comments PROTIME (BEAKER) (test code = 15.0 seconds 11.7-14.7 H 759) INR (BEAKER) (test code = 370) 1.2 <=5.9 RECOMMENDED COUMADIN/WARFARIN INR THERAPY RANGESSTANDARD DOSE: 2.0 - 3.0 Includes: PROPHYLAXIS forvenous thrombosis, systemic embolization; TREATMENT for venous thrombosis and/or pulmonary embolus.HIGH RISK: Target INR is 2.5-3.5 for patients with mechanical heart valves.CALCIUM, [id number] 03:38:00 Test Item Value Reference Range Interpretation Comments CALCIUM IONIZED (BEAKER) (test 1.17 mmol/L 1.12-1.27 code = 698) PH, BLOOD (BEAKER) (test code = 7.39 1810) POCT-GLUCOSE [id number] 23:04:00 Test Item Value Reference Range Interpretation Comments POC-GLUCOSE METER 94 mg/dL 70-110 TESTED AT [place] [address] ([facility]) (test code = [facility] [address] 1538) [id number] 21:57:00 Test Item Value Reference Range Interpretation Comments POTASSIUM (BEAKER) (test code = 4.4 meq/L 3.5-5.1 379) POCT-GLUCOSE [id number] 18:02:00 Test Item Value Reference Range Interpretation Comments POC-GLUCOSE METER 99 mg/dL 70-110 TESTED AT [place] [address] ([facility]) (test code = [facility] [address] 1538) BLOOD GAS, [id number] 17:15:00 Test Item Value Reference Range Interpretation [...] (BEAKER) (test 37.0 C code = 1818) [id number] 16:07:00 Test Item Value Reference Range Interpretation Comments POTASSIUM (BEAKER) (test code = 4.4 meq/L 3.5-5.1 379) [id number] 16:07:00 Test Item Value Reference Range Interpretation Comments MAGNESIUM (BEAKER) (test code = 2.0 mg/dL 1.6-2.6 627) [id number] 16:07:00 Test Item Value Reference Range Interpretation Comments PHOSPHORUS (BEAKER) (test code = 2.1 mg/dL 2.3-4.7 L 604) [id number] 16:07:00 Test Item Value Reference Range Interpretation Comments CALCIUM (BEAKER) (test code = 697) 8.2 mg/dL 8.4-10.2 L MR, ABDOMEN, [id number] 15:19:00FINAL REPORT INDICATION:57-year-old female with abdominal pain, [...] Laboy Verified Date/Time: 04/29/2018 15:19:21 Reading Location: [facility] C013Y CT Body Reading Room U/S, RENAL WITH [id number] 14:53:00Reason for exam:->ENRIQUE with severe sepsisShould this [...] Austin KenortVerified Date/Time: 04/29/2018 14:53:07 Reading Location: [facility] P006J Ultrasound Reading Room BLOOD GAS, [id number] 14:33:00 Test Item Value Reference Range Interpretation [...] (test code = 1819) 100.0 % POCT-GLUCOSE [id number] 12:20:00 Test Item Value Reference Range Interpretation Comments POC-GLUCOSE METER 116 mg/dL 70-110 H TESTED AT [facility] 6720 (BEAKER) (test code = [place] 1538) [address] BLOOD GAS, [id number] 10:57:00 Test Item Value Reference Range Interpretation [...] (BEAKER) (test code = 1819) 100.0 % [id number] 10:19:00 Test Item Value Reference Range Interpretation [...] METER 125 mg/dL 70-110 H TESTED AT [facility] 6720 (BEAKER) (test code = [place] 1538) [address] BLOOD GAS, [id number] 06:41:00 Test Item Value Reference Range Interpretation [...] (test code = 1819) 28.0 % CALCIUM, [id number] 06:14:00 Test Item Value Reference Range Interpretation Comments CALCIUM IONIZED (BEAKER) (test 1.11 mmol/L 1.12-1.27 L code = 698) PH, BLOOD (BEAKER) (test code = 7.20 1810) COMPREHENSIVE METABOLIC [id number] 06:06:00 Test Item Value Reference Range Interpretation [...] APPLICABLE FOR DIALYSIS PATIEN TS. BASIC METABOLIC [id number] 06:05:00 Test Item Value Reference Range Interpretation [...] S NOT APPLICABLE FOR DIALYSIS PATIEN TS. [id number] 05:13:00 Test Item Value Reference Range Interpretation Comments PHOSPHORUS (BEAKER) (test code = 3.5 mg/dL 2.3-4.7 604) [id number] 05:13:00 Test Item Value Reference Range Interpretation Comments MAGNESIUM (BEAKER) (test code = 2.2 mg/dL 1.6-2.6 627) HIV-1 ANTIGEN WITH HIV-1/2 [id number] 05:12:00 Test Item Value Reference Range Interpretation Comments HIV-1 ANTIGEN WITH HIV 1\\T\\2 Nonreactive Nonreactive ANTIBODY (2) (BEAKER) (test code = 2586) LACTIC ACID, ARTERIAL, WHOLE [id number] 04:48:00 Test Item Value Reference Range Interpretation Comments LACTATE BLOOD ARTERIAL (2) 1.0 mmol/L 0.5-2.2 (BEAKER) (test code = 2874) Effective 12/15/2015: Units/Reference Range ChangeNew: 0.5-2.2 mmol/L Previous: 5-20 mg/[id number] 04:47:00 Test Item Value Reference Range Interpretation Comments PARTIAL THROMBOPLASTIN TIME 34.3 seconds 22.5-36.0 (BEAKER) (test code = 760) PROTHROMBIN [id number] 04:45:00 Test Item Value Reference Range Interpretation [...] WBC 0-0 (BEAKER) (test code = 413) [id number] 00:18:00 Test Item Value Reference Range Interpretation Comments POTASSIUM (BEAKER) (test code = 3.9 meq/L 3.5-5.1 379) POCT-GLUCOSE [id number] 22:25:00 Test Item Value Reference Range Interpretation Comments POC-GLUCOSE METER 172 mg/dL 70-110 H TESTED AT [place] [address] ([facility]) (test code = [place] 1538) [address] [id number] 20:46:00 Test Item Value Reference Range Interpretation Comments CALCIUM (BEAKER) (test code = 697) 7.1 mg/dL 8.4-10.2 L [id number] 20:34:00 Test Item Value Reference Range Interpretation Comments PHOSPHORUS (BEAKER) 3.5 mg/dL 2.3-4.7 Specimen slightly (test code = 604) hemolyzed [id number] 20:34:00 Test Item Value Reference Range Interpretation Comments POTASSIUM (BEAKER) 3.9 meq/L 3.5-5.1 Specimen slightly (test code = 379) hemolyzed [id number] 20:32:00 Test Item Value Reference Range Interpretation Comments MAGNESIUM (BEAKER) 2.2 mg/dL 1.6-2.6 Specimen slightly (test code = 627) hemolyzed POCT-GLUCOSE [id number] 18:02:00 Test Item Value Reference Range Interpretation Comments POC-GLUCOSE METER 151 mg/dL 70-110 H TESTED AT [place] [address] (BEAKER) (test code = [place] 1538) [address] [id number] 15:43:00 Test Item Value Reference Range Interpretation Comments POTASSIUM (BEAKER) (test code = 4.0 meq/L 3.5-5.1 379) RAD, CHEST, 1 VIEW, NON [id number] 15:34:00Reason for exam:->HD cath placementShould this be performed at the bedside?->YesFINAL REPORT AP chest HISTORY: 04/28/2018 IMPRESSION:Right IJ dialysis catheter placed with tip at upper SVC. Remainder supportive lines unchanged. Stable cardiac silhouette. Hypoinflation. Mild perihilar atelectasis. No pneumothorax. Signed: Madeleine Santacruz MDReport Verified Date/Time: 04/28/2018 15:34:26 Reading Location: [address] Ortho Consult Reading Room PLATELET [id number] 15:32:00 Test Item Value Reference Range Interpretation Comments PLATELET COUNT ([facility]) (test 105 K/CU MM 150-450 L code = 756) Please draw in citrate (blue top) tube at next blood drawACETAMINOPHEN LEVEL 2018-04-28 11:35:00 Test Item Value Reference Range Interpretation Comments ACETAMINOPHEN LEVEL (AYADAKER) (test < ug/mL 10.0-30.0 L code = 344) Therapeutic Range: 10.0-30.0 g/mLToxic Levels: >200.0 g/mLPOCT-GLUCOSE [id number] 11:15:00 Test Item Value Reference Range Interpretation Comments POC-GLUCOSE METER 152 mg/dL 70-110 H TESTED AT [facility] 67 ([facility]) (test code = [place] 1538) [address] HEPATITIS B SURFACE [id number] 11:06:00 Test Item Value Reference Range Interpretation Comments HEPATITIS B SURFACE ANTIGEN (2) Nonreactive Nonreactive ([facility]) (test code = 2585) HEPATITIS B CORE ANTIBODY, [id number] 11:06:00 Test Item Value Reference Range Interpretation Comments HEPATITIS B CORE IGM ANTIBODY Nonreactive Nonreactive ([facility]) (test code = 645) HEPATITIS C [id number] 11:06:00 Test Item Value Reference Range Interpretation Comments HEPATITIS C ANTIBODY (BEAKER) Nonreactive Nonreactive (test code = 367) HEPATITIS A ANTIBODY, [id number] 11:06:00 Test Item Value Reference Range Interpretation Comments HEPATITIS A IGM ANTIBODY (BEAKER) Nonreactive Nonreactive (test code = 498) PROTEIN, RANDOM [id number] 11:03:00 Test Item Value Reference Range Interpretation Comments PROTEIN, URINE (BEAKER) (test code 191 mg/dL 0-14 H = 1569) HEMOGLOBIN [id number] 10:45:00 Test Item Value Reference Range Interpretation Comments HEMOGLOBIN A1C (BEAKER) (test code = 5.5 % 4.3-6.1 368) CREATININE, RANDOM [id number] 10:42:00 Test Item Value Reference Range Interpretation Comments CREATININE URINE (BEAKER) (test 50.7 mg/dL code = 375) Reference Range: No NormalsSODIUM, RANDOM [id number] 10:42:00 Test Item Value Reference Range Interpretation Comments SODIUM URINE (BEAKER) (test code = 48 meq/L 243) Reference Range: No NormalsBASIC METABOLIC [id number] 09:24:00 Test Item Value Reference Range Interpretation [...] NOT APPLICABLE FOR DIALYSIS PATIEN TS. CALCIUM, [id number] 09:19:00 Test Item Value Reference Range Interpretation Comments CALCIUM IONIZED (BEAKER) (test 0.93 mmol/L 1.12-1.27 L code = 698) PH, BLOOD (BEAKER) (test code = 7.20 1810) [id number] 09:13:00 Test Item Value Reference Range Interpretation Comments HAPTOGLOBIN (BEAKER) (test code = 164 mg/dL 14-258 366) [id number] 09:12:00 Test Item Value Reference Range Interpretation Comments PHOSPHORUS (BEAKER) (test code = 4.5 mg/dL 2.3-4.7 604) [id number] 09:12:00 Test Item Value Reference Range Interpretation Comments MAGNESIUM (BEAKER) (test code = 1.7 mg/dL 1.6-2.6 627) RAD, CHEST, 1 VIEW, NON [id number] 09:01:00Reason for exam:- >hypoxiaShould this be performed at the bedside?->YesFINAL REPORT AP chest HISTORY: Hypoxia COMPARISON: 04/27/2018 IMPRESSION:Suppor tive lines unchanged. Stable cardiac silhouette. Minimal perihilar atelectasis. No pneumothorax. Signed: Madeleine Santacruz MDReport Verified Date/Time: 04/28/2018 09:01:47 Reading Location: [address] Consult Reading Room PHERAL BLOOD SMEAR - HOLD [id number] 08:58:00 Test Item Value Reference Range Interpretation Comments PERIPHERAL SMEAR SAVE (BEAKER) (test saved code = 1815) RETICULOCYTE [id number] 08:58:00 Test Item Value Reference Range Interpretation Comments RETICULOCYTE COUNT PCT (BEAKER) (test 3.6 % 0.5-1.7 H code = 575) HEMOGLOBIN AND [id number] 08:52:00 Test Item Value Reference Range Interpretation Comments HEMOGLOBIN (BEAKER) (test code = 8.2 GM/DL 11.2-15.7 L 410) HEMATOCRIT (BEAKER) (test code = 24.9 % 34.1-44.9 L 411) CBC W/PLT COUNT & AUTO [id number] 07:40:00 Test Item Value Reference Range Interpretation [...] (BEAKER) Present (test code = 483) URINE [id number] 05:57:00 Test Item Value Reference Range Interpretation Comments CULTURE (BEAKER) (test code = 1095) No growth [id number] 05:00:00 Test Item Value Reference Range Interpretation Comments PHOSPHORUS (BEAKER) (test code = 4.4 mg/dL 2.3-4.7 604) [id number] 05:00:00 Test Item Value Reference Range Interpretation Comments MAGNESIUM (BEAKER) (test code = 1.6 mg/dL 1.6-2.6 627) HEMOGLOBIN AND [id number] 04:48:00 Test Item Value Reference Range Interpretation Comments HEMOGLOBIN (BEAKER) (test code = 8.0 GM/DL 11.2-15.7 L 410) HEMATOCRIT (BEAKER) (test code = 24.0 % 34.1-44.9 L 411) LIPID [id number] 03:38:00 Test Item Value Reference Range Interpretation [...] 130-159 High 160-189 Very High >=190HEPATIC FUNCTION [id number] 03:38:00 Test Item Value Reference Range Interpretation [...] 1138 U/L 125-220 H code = 635) [id number] 03:38:00 Test Item Value Reference Range Interpretation Comments LIPASE (BEAKER) (test code = 749) 525 U/L 8-78 H C-REACTIVE [id number] 03:38:00 Test Item Value Reference Range Interpretation Comments C-REACTIVE PROTEIN (BEAKER) (test 12.99 mg/dL 0.00-0.50 H code = 676) [id number] 03:23:00 Test Item Value Reference Range Interpretation Comments FIBRINOGEN LEVEL (BEAKER) (test 328 mg/dl 225-434 code = 658) [id number] 03:23:00 Test Item Value Reference Range Interpretation [...] 2.5-3.5 for patients with mechanical heart valves.PROTHROMBIN [id number] 03:22:00 Test Item Value Reference Range Interpretation Comments PROTIME (BEAKER) (test code = 16.2 seconds 11.7-14.7 H 759) INR (BEAKER) (test code = 370) 1.3 <=5.9 RECOMMENDED COUMADIN/WARFARIN INR THERAPY RANGESSTANDARD DOSE: 2.0 - 3.0 Includes: PROPHYLAXIS forvenous thrombosis, systemic embolization; TREATMENT for venous thrombosis and/or pulmonary embolus.HIGH RISK: Target INR is 2.5-3.5 for patients with mechanical heart valves.POCT-GLUCOSE [id number] 02:57:00 Test Item Value Reference Range Interpretation Comments POC-GLUCOSE METER 135 mg/dL 70-110 H TESTED AT [place] [address] ([facility]) (test code = [facility] 1538) [id number] POCT-GLUCOSE [id number] 00:21:00 Test Item Value Reference Range Interpretation Comments POC-GLUCOSE METER 177 mg/dL 70-110 H TESTED AT [place] [address] ([facility]) (test code = [facility] 1538) [id number] HEMOGLOBIN AND [id number] 00:21:00 Test Item Value Reference Range Interpretation Comments HEMOGLOBIN (LEO) (test code = 8.3 GM/DL 11.2-15.7 L 410) HEMATOCRIT (MARIA ELENA) (test code = 24.6 % 34.1-44.9 L 411) POCT-GLUCOSE [id number] 22:08:00 Test Item Value Reference Range Interpretation Comments POC-GLUCOSE METER 156 mg/dL 70-110 H TESTED AT [facility] 6720 (MARIA ELENA) (test code = [place] [facility] 1538) [id number] POCT-GLUCOSE [id number] 18:16:00 Test Item Value Reference Range Interpretation Comments POC-GLUCOSE METER 156 mg/dL 70-110 H TESTED AT [place] [address] ([facility]) (test code = [facility] Gisselle [facility] 1538) [id number] LACTATE DEHYDROGENASE (LDH)2018-04-27 16:18:00 Test Item Value Reference Range Interpretation Comments LACTATE DEHYDROGENASE (MARIA ELENA) (test 1130 U/L 125-220 H code = 635) RAD, CHEST, 1 VIEW, NON [id number] 15:58:00Reason for exam:->LIJ placementShould this be performed [...] [place] Verified Date/Time: 04/27/2018 15:58:19 Reading Location: [address] Reading Room HEMOGLOBIN AND [id number] 15:37:00 Test Item Value Reference Range Interpretation Comments HEMOGLOBIN (AYADAKER) (test code = 8.8 GM/DL 11.2-15.7 L 410) HEMATOCRIT (MARIA ELENA) (test code = 26.1 % 34.1-44.9 L 411) PERIPHERAL BLOOD SMEAR - HOLD [id number] 14:50:00 Test Item Value Reference Range Interpretation Comments PERIPHERAL SMEAR SAVE (BEAKER) (test saved code = 1815) C-REACTIVE [id number] 12:47:00 Test Item Value Reference Range Interpretation Comments C-REACTIVE PROTEIN (BEAKER) (test 9.17 mg/dL 0.00-0.50 H code = 676) POCT-GLUCOSE [id number] 12:15:00 Test Item Value Reference Range Interpretation Comments POC-GLUCOSE METER 164 mg/dL 70-110 H TESTED AT [facility] 6720 (BEAKER) (test code = [place] 1538) [id number] B-TYPE NATRIURETIC FACTOR (BNP)2018-04-27 11:37:00 Test Item Value Reference Range Interpretation Comments B-TYPE NATRIURETIC PEPTIDE (BEAKER) 176 pg/mL 0-100 H (test code = 700) HEMOGLOBIN AND [id number] 11:08:00 Test Item Value Reference Range Interpretation Comments HEMOGLOBIN (BEAKER) (test code = 8.7 GM/DL 11.2-15.7 L 410) HEMATOCRIT (BEAKER) (test code = 25.6 % 34.1-44.9 L 411) [id number] 10:07:00 Test Item Value Reference Range Interpretation Comments FERRITIN (BEAKER) (test code = 4542 ng/mL 5-275 H 361) VITAMIN [id number] 10:06:00 Test Item Value Reference Range Interpretation Comments VITAMIN B12 (BEAKER) (test code = > pg/mL 213-816 H 774) CBC W/PLT COUNT & AUTO [id number] 09:11:00 Test Item Value Reference Range Interpretation [...] 36 % 20-55 (test code = 2590) [id number] 09:03:00 Test Item Value Reference Range Interpretation Comments PHOSPHORUS (BEAKER) (test code = 4.2 mg/dL 2.3-4.7 604) LACTIC ACID, VENOUS, WHOLE [id number] 09:00:00 Test Item Value Reference Range Interpretation Comments LACTATE BLOOD VENOUS (2) (BEAKER) 1.0 mmol/L 0.5-2.2 (test code = 2872) Effective 12/15/2015: Units/Reference Range ChangeNew: 0.5-2.2 mmol/L Previous: 5-20 mg/dLHEMOGLOBIN [id number] 08:35:00 Test Item Value Reference Range Interpretation Comments HEMOGLOBIN A1C (BEAKER) (test code = 5.0 % 4.3-6.1 368) U/S, ABDOMINAL, [id number] 07:57:00Abdomen limited area? Add comment if clarification [...] [place] Verified Date/Time: 04/27/2018 07:57:35 Reading Location: [address] Consult Reading Room [id number] 07:07:00 Test Item Value Reference Range Interpretation Comments MAGNESIUM (BEAKER) (test code = 1.8 mg/dL 1.6-2.6 627) LACTIC ACID, VENOUS, WHOLE [id number] 07:05:00 Test Item Value Reference Range Interpretation Comments LACTATE BLOOD VENOUS 1.1 mmol/L 0.5-2.2 Specime n slightly (2) (BEAKER) (test hemolyzed code = 2872) Effective 12/15/2015: Units/Reference Range ChangeNew: 0.5-2.2 mmol/L Previous: 5-20 mg/dLHEMOGLOBIN AND [id number] 06:54:00 Test Item Value Reference Range Interpretation Comments HEMOGLOBIN (BEAKER) (test code = 9.0 GM/DL 11.2-15.7 L 410) HEMATOCRIT (BEAKER) (test code = 26.7 % 34.1-44.9 L 411) POCT-GLUCOSE [id number] 06:28:00 Test Item Value Reference Range Interpretation Comments POC-GLUCOSE METER 122 mg/dL 70-110 H TESTED AT [facility] 6720 (BEAKER) (test code = [place] 1538) [address] [id number] 05:17:00 Test Item Value Reference Range Interpretation Comments AMMONIA (BEAKER) (test code = 348) 40 mol/L 18-72 POCT-GLUCOSE [id number] 04:46:00 Test Item Value Reference Range Interpretation Comments POC-GLUCOSE METER 166 mg/dL 70-110 H TESTED AT [facility] 6720 (BEAKER) (test code = [place] 1538) [address] BLOOD GAS, [id number] 04:15:00 Test Item Value Reference Range Interpretation [...] (test code = 1819) 32 URINALYSIS W/ [id number] 01:36:00 Test Item Value Reference Range Interpretation [...] 1584) SOURCE(BEAKER) (test code = Urine, [place] 5194) HEMOGLOBIN AND [id number] 01:19:00 Test Item Value Reference Range Interpretation Comments HEMOGLOBIN (BEAKER) (test code = 9.0 GM/DL 11.2-15.7 L 410) HEMATOCRIT (BEAKER) (test code = 26.3 % 34.1-44.9 L 411) [id number] 00:57:00 Test Item Value Reference Range Interpretation Comments PHOSPHORUS (BEAKER) (test code = 0.7 mg/dL 2.3-4.7 LL 604) COMPREHENSIVE METABOLIC [id number] 00:55:00 Test Item Value Reference Range Interpretation [...] APPLICABLE FOR DIALYSIS PATIEN TS. Specimen slightly [id number] 00:53:00 Test Item Value Reference Range Interpretation Comments MAGNESIUM (BEAKER) (test code = 1.9 mg/dL 1.6-2.6 627) LIPID [id number] 00:53:00 Test Item Value Reference Range Interpretation [...] 160-189 Very High >=190 Specimen slightly ictericCALCIUM, [id number] 00:50:00 Test Item Value Reference Range Interpretation Comments CALCIUM IONIZED (BEAKER) (test 1.02 mmol/L 1.12-1.27 L code = 698) PH, BLOOD (BEAKER) (test code = 7.31 1810) LACTIC ACID, VENOUS, WHOLE [id number] 00:47:00 Test Item Value Reference Range Interpretation Comments LACTATE BLOOD VENOUS (2) (BEAKER) 3.6 mmol/L 0.5-2.2 H (test code = 2872) Effective 12/15/2015: Units/Reference Range ChangeNew: 0.5-2.2 mmol/L Previous: 5-20 mg/dLCBC W/PLT COUNT & AUTO [id number] 00:40:00 Test Item Value Reference Range Interpretation [...] Neutrophilic inclusions seen.RAD, CHEST, 1 VIEW, NON [id number] 00:24:00Reason for exam:->sob, coughShould this be performed [...] [place] Verified Date/Time: 04/27/2018 00:24:54 Reading Location: [facility] C013Y CT Body Reading Room PROTHROMBIN [id number] 23:51:00 Test Item Value Reference Range Interpretation Comments PROTIME (BEAKER) (test code = 15.5 seconds 11.7-14.7 H 759) INR (BEAKER) (test code = 370) 1.2 <=5.9 RECOMMENDED COUMADIN/WARFARIN INR THERAPY RANGESSTANDARD DOSE: 2.0 - 3.0 Includes: PROPHYLAXIS forvenous thrombosis, systemic embolization; TREATMENT for venous thrombosis and/or pulmonary embolus.HIGH RISK: Target INR is 2.5-3.5 for patients with mechanical heart valves.[id number] 23:51:00 Test Item Value Reference Range Interpretation Comments FIBRINOGEN LEVEL (MARIA ELENA) (test 231 mg/dl 225434 code = 658)
[2021-10-09] MEDS ORDERED: ACETAMINOPHEN 500 MG TAB ONE (14:47)
--- NOTE | 2021-10-09 14:56 | RAD REPORT ---
EXAM DESCRIPTION: CT - CTFB CLINICAL HISTORY: TRAUMA COMPARISON: CT HEAD BRAIN WWO CONTRAST dated 11/11/2008 TECHNIQUE: Axial 2 mm thick images of the face were obtained with sagittal and coronal reconstructio n images. All CT scans are performed using dose optimization technique as appropriate and may include automated exposure control or mA/KV adjustment according to patient size. FINDINGS: Left orbital floor fracture. There is medial bowing of the left lamina papyracea which cou ld reflect an occult fracture dislocation. No extraocular muscle entrapment. Both intraconal and extr aconal gas is present. Gas also extends into the preseptal periorbital soft tissues and into the face . Increased proptosis which may be related to the volume of gas. No fluid or hemorrhage is seen. Smal l volume of left hemosinus. . IMPRESSION: Left inferior pole orbital wall fracture with extensive intraconal, extraconal, and faci al soft tissue gas. Possible lamina papyracea fracture. Increased left orbital proptosis. No extraocu lar muscle entrapment.
--- NOTE | 2021-10-09 14:57 | RAD REPORT ---
EXAM DESCRIPTION: CT - CTHCSPWOC - 10/09/2021 2:43 pm CLINICAL HISTORY: Trauma, head and neck injury. TRAUMA COMPARISON: Head C Spine Mpr Wo Con dated 08/26/2021; Soft Tissue Neck W/Contr dated 01/01/2021 TECHNIQUE: Axial 5 mm thick images of the head were obtained. Axial 2 mm thick images of the cervical spine were obtained with sagittal and coronal reconstruction images generated and reviewed. All CT scans are performed using dose optimization technique as appropriate and may include automated exposure control or mA/KV adjustment according to patient size. FINDINGS: CT HEAD WITHOUT CONTRAST: No acute hemorrhage, hydrocephalus or extra-axial collection is identified.No areas of brain edema or midline shift. Reference CT face for additional findings.The calvarium is intact. CT CERVICAL SPINE WITHOUT CONTRAST: No fracture or subluxation.No prevertebral soft tissues swelling is identified. Mild cervical spondyl osis. Reversal of normal cervical lordosis is possibly due to underlying degenerative changes are pos itioning. IMPRESSION: No acute intracranial abnormality. Reference facial CT for additional findings. No fracture or traumatic malalignment of the cervical spine.
--- NOTE | 2021-10-09 15:31 | RAD REPORT ---
EXAM DESCRIPTION: RAD - Hip Right 2 View - 10/09/2021 3:12 pm CLINICAL HISTORY: PAIN COMPARISON: No comparisons FINDINGS: No acute fracture. No malalignment. Mild right acetabular degenerative changes. Surgical c lips in the right inguinal region. IMPRESSION: No acute osseous abnormality involving the right hip.
--- NOTE | 2021-10-09 15:32 | RAD REPORT ---
EXAM DESCRIPTION: RAD - Lumbar Spine 3 Views - 10/09/2021 3:12 pm CLINICAL HISTORY: PAIN COMPARISON: No comparisons FINDINGS: No acute fracture. No malalignment. No significant focal degenerative changes. IMPRESSION: No acute osseous abnormality involving the lumbar spine.
--- NOTE | 2021-10-09 16:16 | ER ---
Nurse's Notes [facility] Name: Madelaine Leonard Age: 61 yrs Sex: Female : 1960 Arrival Date: 10/09/2021 Time: 13:48 Bed 25 Private MD: Diagnosis: Fracture of orbital floor;Acute pain due to trauma Presentation: 10/09 13:48 Chief complaint: EMS states: Fell from Standing position on Sunday. Pt reports that she ss lost consciousness for approximately 1.5 hours, got herself off the ground and laid down. Niece called 911 today because her L eye was more swollen today, but is complaining of increased pain to R hip and low back. Coronavirus screen: Client denies travel out of the [place] in the last 14 days. Ebola Screen: Patient denies exposure to infectious person. Patient denies travel to an Ebola-affected area in the 21 days before illness onset. Mechanism of Injury: Fall from standing position. 13:48 Method Of Arrival: EMS: [facility] ss 13:48 Acuity: DEV 3 ss 13:51 Initial Sepsis Screen: Does the patient meet any 2 criteria? No. Patient's initial ss sepsis screen is negative. Does the patient have a suspected source of infection? No. Patient's initial sepsis screen is negative. Risk Assessment: Do you want to hurt yourself or someone else? Patient reports no desire to harm self or others. Onset of symptoms was October 07, 2021. 14:12 The patient denies any loss of vision. lr4 Historical: - Allergies: 13:52 Latex, Natural Rubber; ss 13:52 Levofloxacin; ss 13:52 Naproxen Sodium; ss 13:52 PENICILLINS; ss - PMHx: 13:52 Chronic pain; Fibromyalgia; Hernia; Hypertensive disorder; ss - PSHx: 13:52 Repair of inguinal hernia; Total abdominal hysterectomy; ss - Immunization history:: Client reports receiving the 2nd dose of the Covid vaccine. - Social history:: Smoking status: Patient denies any tobacco usage or history of. Screenin:11 Abuse screen: Denies threats or abuse. Nutritional screening: No deficits noted. lr4 Tuberculosis screening: No symptoms or risk factors identified. Fall Risk Secondary diagnosis (15 points) IV access (20 points). Ambulatory Aid- Crutches/Cane/Walker (15 pts). Gait- Weak (10 pts.). Mental Status- Oriented to own ability (0 pts). Total Poole Fall Scale indicates High Risk Score (45 or more points). Fall prevention measures have been instituted. Side Rails Up X 2 Frequent Obs/Assessments Occuring As available patient and family educated on Fall Prevention Program and Strategies. Assessment: 14:07 General: Appears in no apparent distress. comfortable, obese, Behavior is calm, lr4 cooperative. Pain: Complains of pain in R hip and lower back Pain currently is 10 out of 10 on a pain scale. Neuro: No deficits noted. Cardiovascular: No deficits noted. Respiratory: No deficits noted. EENT: Eyes L eye swollen closed. Sclera/Cornea are reddened in outer aspect of conjuctiva of left eye and inner aspect of conjunctiva of left eye. Musculoskeletal: Reports pain in back and R hip. Vital Signs: 13:48 BP 142 / 90; Pulse 82; Resp 17; Temp 97.7(TE); Pulse Ox 97% ; Weight 90.72 kg; Height 5 ss ft. 2 in. (157.48 cm); Pain 10/10; 15:24 BP 150 / 98; Pulse 73; Resp 18; Pulse Ox 97% on R/A; lr4 16:01 BP 158 / 78; Pulse 65; Resp 18; Pulse Ox 100% on R/A; lr4 17:14 BP 133 / 81; Pulse 75; Resp 18; Pulse Ox 99% on R/A; lr4 13:48 Body Mass Index 36.58 (90.72 kg, 157.48 cm) ss Visual Acuity: 17:16 Left Eye Visual acuity 20/100, Pupil size 3 mm, Normal, React To Light, Reactive To lr4 Accomodation; Right Eye Visual acuity 20/20, Pupil size 3 mm, Normal, React To Light, Reactive To Accomodation; Both Eyes Visual acuity 20/20; With Lenses; ED Course: 13:48 Patient arrived in ED. ss 13:51 Triage completed. ss 13:52 Arm band placed on right wrist. ss 13:53 Landen Alfonso MD is Attending Physician. jr11 14:06 Brianne Carbone RN is Primary Nurse. lr4 14:11 No provider procedures requiring assistance completed. lr4 14:12 Patient has correct armband on for positive identification. Bed in low position. Call lr4 light in reach. Side rails up X 1. Warm blanket given. 14:43 CT Facial Bones W/O Con In Process Unspecified. EDMS 14:43 Head C Spine Mpr Wo Con In Process Unspecified. EDMS 15:11 Lumbar Spine (3 Views) XRAY In Process Unspecified. EDMS 15:12 Hip Right 2 View XRAY In Process Unspecified. EDMS 15:[address] Wright the ENT building contractor with Dr. Alfonso for patient eb consultation. 15:17 initiated a transfer with Maya from the [facility]. eb 15:26 SARS-COV-2 RT PCR (Document "Date of Onset" if Symptomatic) Sent. 9 15:34 SARS-COV-2 RT PCR Sent. cs9 15:[address] Mascorro the head trauma building contractor for [facility] with Dr. Alfonso eb for patient transfer consultation. 15:41 administrative approval given by Maya Burleson Rn/ patient has been accepted to [facility] ER/ Dr. Roman Garcia has accepted the patient without conference with Dr. Alfonso/ report to be called to [phone]. 17:15 Inserted saline lock: 22 gauge in left wrist, using aseptic technique. lr4 17:15 Patient transferred, IV remains in place. lr4 17:16 Report given to sandeep rae at [facility]. lr4 Administered Medications: 15:16 Drug: Tylenol 1000 mg Route: PO; lr4 15:23 Follow up: Response: No adverse reaction; Pain is unchanged, physician notified lr4 Outcome: 16:16 ER care complete, transfer ordered by . 11 17:15 Condition: stable lr4 17:15 Instructed on the need for transfer. lr4 17:15 Transferred by ground EMS to [facility], Transfer form completed. lr4 17:17 Patient left the ED. lr4 Signatures: Dispatcher [employer] Jennifer Burrell, RN RN [place] Christine 9 Landen Alfonso MD MD jr11 Brianne Carbone RN RN lr4
--- NOTE | 2021-10-09 16:16 | EDPHYS ---
Physician Documentation [facility] Name: Madelaine Leonard Age: 61 yrs Sex: Female : 1960 Arrival Date: 10/09/2021 Time: 13:48 Bed 25 Private MD: ED Physician Landen Alfonso HPI: 10/09 14:20 This 61 yrs old Female presents to ER via EMS with complaints of Eye Pain, Hip Pain, jr11 Low Back Pain. 14:20 The patient is experiencing trauma. Onset: The symptoms/episode began/occurred 2 days jr11 ago. Duration: the symptoms are continuous. Aggravated by rubbing, Alleviated by nothing. Associated signs and symptoms: Pertinent negatives:. 61-year-old woman with history of fibromyalgia, recent discharge from the hospital for bowel obstruction states that her legs often give out, she supposed to use a walker and did not this time. Patient states that she had a mechanical fall fell, lost consciousness 2 days ago. Patient complaining of pain to the left eye and also swelling to the left eye and right hip and lower lumbar pain. Pain worse with ROM, ambulatory. No syncope no CP, SBP sx's resolved.. Historical: - Allergies: 13:52 Latex, Natural Rubber; ss 13:52 Levofloxacin; ss 13:52 Naproxen Sodium; ss 13:52 PENICILLINS; ss - PMHx: 13:52 Chronic pain; Fibromyalgia; Hernia; Hypertensive disorder; ss - PSHx: 13:52 Repair of inguinal hernia; Total abdominal hysterectomy; ss - Immunization history:: Client reports receiving the 2nd dose of the Covid vaccine. - Social history:: Smoking status: Patient denies any tobacco usage or history of. ROS: 14:24 Neck: Negative for injury, pain, and swelling, Cardiovascular: Negative for chest pain, jr11 palpitations, and edema, Respiratory: Negative for shortness of breath, cough Abdomen/GI: Negative for abdominal pain, nausea, vomiting : Negative for injury, bleeding, discharge, and swelling, MS/Extremity: Negative for injury and deformity, Skin: Negative for injury, rash, and discoloration. 14:24 All other systems are negative. Exam: 14:24 Constitutional: This is a well developed, well nourished patient who is awake, alert, jr11 and in no acute distress. 14:24 Neck: Trachea midline, no thyromegaly or masses palpated, and no cervical lymphadenopathy. Supple, full range of motion without nuchal rigidity, or vertebral point tenderness. No Meningismus. Chest/axilla: Normal chest wall appearance and motion. Nontender with no deformity. No lesions are appreciated. Cardiovascular: Regular rate and rhythm with a normal S1 and S2. No gallops, murmurs, or rubs. Normal PMI, no JVD. No pulse deficits. Respiratory: Lungs have equal breath sounds bilaterally, clear to auscultation and percussion. No rales, rhonchi or wheezes noted. No increased work of breathing, no retractions or nasal flaring. Abdomen/GI: Soft, non-tender, with normal bowel sounds. No distension or tympany. No guarding or rebound. No evidence of tenderness throughout. Back: TTP lower lumbar, no stepoffs Neuro: Awake and alert, GCS 15, oriented to person, place, time, and situation. No gross motor or sensory deficits. 14:24 Head/face: Noted is raccoon eye(s), on the left. 14:24 Eyes: L eye with lateral subconj hemorrhage, no gross visual loss. Vital Signs: 13:48 BP 142 / 90; Pulse 82; Resp 17; Temp 97.7(TE); Pulse Ox 97% ; Weight 90.72 kg; Height 5 ss ft. 2 in. (157.48 cm); Pain 10/10; 15:24 BP 150 / 98; Pulse 73; Resp 18; Pulse Ox 97% on R/A; lr4 16:01 BP 158 / 78; Pulse 65; Resp 18; Pulse Ox 100% on R/A; lr4 17:14 BP 133 / 81; Pulse 75; Resp 18; Pulse Ox 99% on R/A; lr4 13:48 Body Mass Index 36.58 (90.72 kg, 157.48 cm) Visual Acuity: 17:16 Left Eye Visual acuity 20/100, Pupil size 3 mm, Normal, React To Light, Reactive To lr4 Accomodation; Right Eye Visual acuity 20/20, Pupil size 3 mm, Normal, React To Light, Reactive To Accomodation; Both Eyes Visual acuity 20/20; With Lenses; MDM: 14:20 Patient medically screened. jr11 14:24 Differential diagnosis: sub conj hemorrhage no hyphema. Data reviewed: vital signs, jr11 nurses notes. ED course: Patient is a 61-year-old female that had a mechanical fall 2 days ago here with pain to the left orbit and also right hip and lower back. Will image, if negative, patient understands that she needs to be walking with her walker and be mindful. Denies syncope chest pain shortness of breath. Patient is otherwise at baseline.. 10/09 15:21 Order name: SARS-COV-2 RT PCR (Document "Date of Onset" if Symptomatic) eb 10/09 15:21 Order name: SARS-COV-2 RT PCR EDMS 10/09 14:16 Order name: CT Facial Bones W/O Con; Complete Time: 15:09 [facility] 10/09 14:24 Order name: Lumbar Spine (3 Views) XRAY; Complete Time: 15:35 [facility] 10/09 14:24 Order name: Hip Right 2 View XRAY; Complete Time: 15:35 [facility] 10/09 14:29 Order name: Head C Spine Mpr Wo Con; Complete Time: 15:09 EDMS Administered Medications: 15:16 Drug: Tylenol 1000 mg Route: PO; lr4 15:23 Follow up: Response: No adverse reaction; Pain is unchanged, physician notified lr4 Disposition Summary: 10/09/21 16:16 Transfer Ordered Transfer Location: [place] [address] Reason: Higher level of care jr11 Condition: Fair jr11 Problem: new jr11 Symptoms: are unchanged jr11 Accepting Physician: Jose Owens(10/09/21 17:17) lr4 Diagnosis - Fracture of orbital floor jr11 - Acute pain due to trauma jr Forms: - Medication Reconciliation Form jr11 - SBAR form jr11 Signatures: Dispatcher [employer] EDMS Bj Jimenez PA PA jmm Smirch, Shelby, RN RN Landen Rogers MD MD jr11 Brianne Carbone RN RN lr4 Corrections: (The following items were deleted from the chart) 14:28 14:20 C Spine Wo Con+CT.RAD.BRZ ordered. EDMS EDMS 14:29 14:17 Head Brain Wo Cont+CT.RAD.BRZ ordered. EDMS EDMS 17:17 16:16 Jose Owens jr11 lr4
[2021-10-09 17:35] VITALS: TEMP 97.7
[2021-10-09 17:40] VITALS: BP 133/81; O2SAT 99
== END 2021-10-09 17:17 | disposition short-term general hospital (02) ==
LOC: ER 13:45
DX: S02.32XA Fracture of orbital floor, left side, initial encounter for closed fracture (principal); G89.11 Acute pain due to trauma; W19.XXXA Unspecified fall, initial encounter; I10 Essential (primary) hypertension; Z88.0 Allergy status to penicillin; Z88.1 Allergy status to other antibiotic agents; Z88.8 Allergy status to other drugs, medicaments and biological substances; Z20.822 Contact with and (suspected) exposure to COVID-19
CPT/HCPCS: 70450; 72125; 70486; 76377; 72100; 73502; 99285; U0003

== ENCOUNTER 2021-10-14 09:43 | Inpatient (IN) | payer OTHER ==
--- OUTSIDE RECORDS SUMMARY | 2021-10-14 09:58 | XMS REPORT | Continuity of Care Document ---
:1960 Author Organization [facility] [place] t Address [address] [place] [address] Care Team Providers Name Role Phone Susie Leblanc Attending Clinician Unavailable [id number] Attending Clinician Unavailable Yusra Dinero Attending Clinician Unavailable Rachel Attending Clinician Unavailable LALITO Attending Clinician Unavailable Doctor Unassigned, Name Attending Clinician Unavailable Ramón DO Attending Clinician Hany COPELAND Attending Clinician Tylor Sandoval MD Attending Clinician RAMÓN Attending Clinician Unavailable RAMÓN Attending Clinician Unavailable OMRANIAN Attending Clinician Unavailable Susie Leblanc Admitting Clinician Unavailable [id number] Admitting Clinician Unavailable Hany COPELAND Admitting Clinician OMRANIAN Admitting Clinician Unavailable Payers Payer Name Policy Type Policy Number Effective Date Expiration Date [place] [id number] MEDICARE PART A [id number] 2011 \\T\\ B 00:00:00 Problems Condition Condition [...] Active Univers ALLERGIE Class ity of S [facility] Social History Social Habit Start Date Stop Date Quantity Comments Source Sex Assigned At Universit y of [facility] Exposure to Not sure [facility] SARS-CoV-2 (event) [facility] Cigarettes smoked 2020-05-23 2020-05-23 Univers ity of current (pack per 00:00:00 00:00:00 ) - Reported Branch Cigarette 2020-05-23 2020-05-23 University of pack-years 00:00:00 00:00:00 [facility] Tobacco use and 2020-05-23 2020-05-23 Never used Universit y of exposure 00:00:00 00:00:00 [facility] Alcohol intake 2020-05-23 2020-05-23 Current drinker Unive rsity of 00:00:00 00:00:00 of alcohol [place] [facility] (finding) Branch History SDOH 2020-05-20 2020-05-20 99 University o f Alcohol Binge 00:00:00 00:00:00 [place] [facility] History SDOH 2020-05-20 2020-05-20 3 University o f Financial 00:00:00 00:00:00 [place] [facility] History SDOH Food 2020-05-20 2020-05-20 1 Univers ity of Worry 00:00:00 00:00:[address] [facility] Branch History SDNM Food 2020-05-20 2020-05-20 1 Univers ity of Scarcity 00:00:00 00:00:[address] [facility] Branch Tobacco Comment 2020-05-20 2020-05-20 4-5 Universit y of 00:00:00 00:00:00 cigarettes/day [place] [facility] Branch History SDOH 2020-05-20 2020-05-20 5 University o f Alcohol Frequency 00:00:00 00:00:00 [place] [facility] History SDNM 2020-05-20 2020-05-20 2 University o f Alcohol Std Drinks 00:00:00 00:00:[address] [facility] Branch Smoking Status Start Date Stop Date Source Smoker, current status 2020-05-23 00:00:[address] [facility] unknown Branch Medications Ordered Filled Start Stop Current Ordering Indication Dosage Frequency Signature Comments Components Source Medication Medication Date Date Medication? Clinician (SIG) Name Name thiamine 2019-08- No [id number] 100mg Take 1 Univers 100 mg 0-15 [...] 100 mg 00 First dose Medical on [facility] 05/26/20 at 0900, Until Discontinu ed, Routine KCL 2019-08- No 40meq 40 mEq, Univers (KLOR-CON 0-14 10-14 Oral, ity of M20) tablet 13:30: 19:20 [place]CE[place] 1 [place] 40 mEq 00 :00 dose, [facility] 05/26/20 Branch at 0830, Routine melatonin 2019-08 Yes 3mg 3 mg, Univers (MELATIN) 0-14 Oral, ity of tablet 3 mg 06:32: QHSPRN, [place] 44 Starting Medical [facility] 05/26/20 at 0132, Until Discontinu ed, [...] Until Discontinu ed, Routine gabapentin 2019-08 Yes [id number] 400mg Take 1 Univers 400 mg 0-14 9107 capsule by ity of capsule 00:00: mouth 3 [place] 00 (three) Medical times Branch daily. metoprolol 2019-08 Yes [id number] 25mg Take 1 Univers succinate 0-14 9107 tablet by ity o f XL 25 mg 24 00:00: mouth [place] hr tablet 00 daily. Medical Branch pantoprazol 2019-08 Yes [id number] 40mg Take 1 Univers e 40 mg EC 0-14 9107 tablet by ity of tablet 00:00: mouth [place] 00 daily. Medical Branch Polyethylen 2019-08 Yes [id number] 17g Take 1 Univers e Glycol 0-14 9107 Packet by ity of 3350 17 00:00: mouth 3 [place] gram powder 00 (three) Medic al times Branch daily. sennosides- 2019-08 Yes [id number] 1{tbl} Take 1 Univers docusate 0-14 9107 tablet by ity of sodium 00:00: mouth 2 [place] 8.6-50 mg 00 (two) Medical per tablet times Branch daily. hydroCHLORO 2019-08 Yes [id number] 12.5mg Take 1 Univers thiazide 0-14 9107 capsule by ity o f 12.5 mg 00:00: mouth [place] capsule 00 daily. Medical Branch doxycycline 2019-08 Yes [id number] 100mg Take 1 Univers hyclate 100 0-14 [...] 00 bedtime. Medical Branch gabapentin 2019-08 Yes [id number] 400mg Take 1 Univers 400 mg 0-14 9107 capsule by ity of capsule 00:00: mouth 3 [place] 00 (three) Medical times Branch daily. metoprolol 2019-08 Yes [id number] 25mg Take 1 Univers succinate 0-14 9107 tablet by ity o f XL 25 mg 24 00:00: mouth [place] hr tablet 00 daily. Medical Branch pantoprazol 2019-08 Yes [id number] 40mg Take 1 Univers e 40 mg EC 0-14 9107 tablet by ity of tablet 00:00: mouth [place] 00 daily. Medical Branch Polyethylen 2019-08 Yes [id number] 17g Take 1 Univers e Glycol 0-14 9107 Packet by ity of 3350 17 00:00: mouth 3 [place] gram powder 00 (three) Medic al times Branch daily. sennosides- 2019-08 Yes [id number] 1{tbl} Take 1 Univers docusate 0-14 9107 tablet by ity of sodium 00:00: mouth 2 [place] 8.6-50 mg 00 (two) Medical per tablet times Branch daily. hydroCHLORO 2019-08 Yes [id number] 12.5mg Take 1 Univers thiazide 0-14 9107 capsule by ity o f 12.5 mg 00:00: mouth [place] capsule 00 daily. Medical Branch doxycycline 2019-08 Yes [id number] 100mg Take 1 Univers hyclate 100 0-14 [...] dose Medi josé powder 17 g on [facility] 05/24/20 at 0900, Until Discontinu ed, [...] NOW, 1 [place] 00 :00 dose, [facility] 05/24/20 Branch at 0115, Routine acetaminoph 2019-08 Yes 650mg 650 mg, Un urszula en 0-11 Oral, ity of (TYLENOL) 17:41: Q6HPRN, [place] tablet 650 53 Starting Medic al mg [facility] 05/23/20 at 1241, Until Discontinu ed, Routine, Pain (scale 4-6), Temp > 38.5 C acetaminoph 2019-08 Yes 1{tbl} 1 tablet, Univers en-codeine 0-11 Oral, ity of (TYLENOL 17:41: Q6HPRN, [place] #3) 300-30 44 Starting Medic al mg tablet 1 [facility] tablet 05/23/20 at 1241, Until Discontinu ed, Routine, Pain (scale 7-10) vancomycin 2019-08- No 1500mg 1,500 mg, Univers 1500 mg in 005-24 IV ity of NS 500 mL 17:24: 13:56 [place], [place] IV 00 :07 Q24H ABX, Medical Piggyback First dose Bran ch RTU 1,500 (after mg last modificati on) on [place] 05/23/20 at 1230, Until Discontinu ed
Reas on for Anti-Infec tive: Documented Infection< br>Documen nava Infection Site: Blood
D uration of Therapy: 14 days metoprolol 2019-08 Yes 25mg 25 mg, Unive rs succinate 0-11 Oral, ity of XL (TOPROL 14:00: DAILY, [place] XL) tablet 00 First dose Med ical 25 mg on [facility] 05/23/20 at 0900, Until Discontinu ed, Routine pantoprazol 2019-08- No 40mg 40 mg, Uni vers e 005-25 Oral, ity of (PROTONIX) 14:00: 14:00 DAILY, [place] EC tablet 00 :27 First dose Medi josé 40 mg on [facility] 05/23/20 at 0900, Until Discontinu ed, Routine HYDROcodone 2019-08 2020- No 1{tbl} 1 tablet, Univers -acetaminop 0-11 -11 Oral, ity of hen (NORCO 13:55: 17:42 Q6HPRN, [place] 5) 5-325 mg 49 :03 Starting Medi josé tablet 1 [facility] tablet 05/23/20 at 0855, Until 05/23/20 at 1242, Routine, Pain (scale 7-10) vancomycin 2019-08 2020- No 15mg/kg 1,500 mg Univers 1500 mg in 010 11 (rounded ity of NS 500 mL 17:45: 12:25 [place] 1,380 [place] IV 00 :20 mg = 15 Medical Piggyback mg/kg ?92 Branc h RTU 1,500 kg), IV mg Piggyback, Q24H ABX, First dose on [facility] 05/22/20 at 1245, Until Discontinu ed
Reas on for Anti-Infec tive: Documented Infection< br>Documen nava Infection Site: Blood
D uration of Therapy: 14 days KCL 2019-08- No 30meq 30 mEq, IV Unive rs (POTASSIUM 0-10 10-10 Piggyback, it y of CHLORIDE) 09:30: 08:57 ONCE, 1 [place] 30 mEq in 00 :00 dose, [facility] Medic al NaCl 0.9% 05/22/20 [place] () at 0430, piggyback 250 mL QUEtiapine 2019-08 Yes 50mg 50 mg, Unive rs (SEROQUEL) 0-10 Oral, QHS, ity of tablet 50 02:00: First [place] mg [address] [facility] 05/21/20 at Branch 2100, Until Discontinu ed, Routine gabapentin 2019-08- No 300mg 300 mg, Un urszula (NEURONTIN) 0-10 10-12 Oral, BID, i ty of capsule 300 01:30: 13:55 First dose [place] mg 00 :[address] [facility] 05/21/20 at Branch 2030, Until Discontinu ed, Routine guaiFENesin 2019-08 Yes 200mg 200 mg, Un urszula 100 mg/5 mL 0-10 Oral, ity of solution 01:14: Q4HPRN, [place] 200 mg 34 Starting Medical [facility] 05/21/20 at 2014, Until Discontinu ed, Routine, [...] dose, [place] Medic al solution 05/20/20 at [facility] h 0.5 mg 2230, Routine lactated 2019-08- [...] 42 :23 Starting Medica l solution [facility] 0.5 mg 05/20/20 at 2130, Until 05/24/20 at 0743, Routine, Wheezing, Shortness of Breath nystatin 2019-08 Yes Topical, Unive rs (NYSTOP) 0-09 BID, First ity o f powder 02:30: dose on [facility] 05/20/20 at Branch 213, Until Discontinu ed, Routine oxazepam 2019-08- No 30mg 30 mg, Univer s (SERAX) 0-14 Oral, ity of capsule 30 02:22: 11:13 Q6HPRN, [place] mg 01 :02 Starting Medical [facility] 05/20/20 at 2122, Until Sun05/26/20 at 0613, Routine, Anxiety, Hypertensi on, signs of withdrawal . Please NHO if given so taper can be started. proMETHazin 2019-08 Yes 25mg 25 mg, IV U nivers e 0 Piggyback, ity of (PHENERGAN) 02:17: Q4HPRN, [place] 25 mg in 21 Starting Medical NaCl 0.9% [facility] (NS) 50 mL 05/20/20 at piggyback 2116, Until Discontinu ed, 50 mL benzocaine- 2019-08 Yes 1{lozen 1 Lozenge, Univers menthoL 0-09 ge} Oral, ity of (CEPACOL 02:16: Q4HPRN, [place] SORE THROAT 23 Starting Medi josé (MIA-MEN)) [facility] lozenge 1 05/20/20 at Lozenge 2115, [...] A ent DAY Clinics NEEDED FOR ANXIETY. [place] TAKE ONE [facility] Carbonate [...] Immunizations Ordered Filled Immunization Date Status Comments [facility] e Immunization Name Name Influenza Virus 2018-10-07 Completed Universit y of Vaccine 00:00:00 [facility] Pneumococcal 13 2018-10-07 Completed Universit y of Conjugate, PCV13 00:00:00 [facility] dical (Prevnar 13) Branch Influenza Virus 2018-10-07 Completed Universit y of Vaccine 00:00:00 [facility] Pneumococcal 13 2018-10-07 Completed Universit y of Conjugate, PCV13 00:00:00 [facility] dical (Prevnar 13) [place] Vital Signs Vital Name Observation Time Observation Value Comments Source Systolic blood 2020-05-26 20:58:00 155 mm[Hg] Univer sity [facility] Diastolic blood 2020-05-26 20:58:00 78 mm[Hg] Unive rsity [facility] Heart rate 2020-05-26 20:58:00 79 /min [facility] Body temperature 2020-05-26 20:58:00 37.28 Dee Dee [facility] Respiratory rate 2020-05-26 20:58:00 18 /min [facility] Oxygen saturation in 2020-05-26 20:58:00 94 /min [facility] Arterial blood by [facility] Pulse oximetry Branch Body height 2020-05-21 02:30:00 160 cm [facility] Body weight 2020-05-21 02:30:00 92 kg [facility] BMI 2020-05-21 02:30:00 35.93 kg/m2 [facility] Systolic blood 2020-05-26 20:58:00 155 mm[Hg] Univer sity of pressure [facility] Diastolic blood 2020-05-26 20:58:00 78 mm[Hg] Unive rsity [facility] Heart rate 2020-05-26 20:58:00 79 /min [facility] Body temperature 2020-05-26 20:58:00 37.28 Dee Dee [facility] Respiratory rate 2020-05-26 20:58:00 18 /min [facility] Oxygen saturation in 2020-05-26 20:58:00 94 /min [facility] blood by [facility] Pulse oximetry [place] Body height 2020-05-21 02:30:00 160 cm [facility] Body weight 2020-05-21 02:30:00 92 kg [facility] BMI 2020-05-21 02:30:00 35.93 kg/m2 [facility] Procedures Procedure Date / Time Performing Clinician Source Performed INSURANCE CORRESPONDENCE 2020-08-16 06:01:00 Doctor Unassigned, [facility] [place] [facility] BASIC METABOLIC PANEL 2020-05-26 10:08:00 [facility] (NA, K, CL, CO2, GLUCOSE, Medica l Branch BUN, CREATININE, CA) CBC WITH DIFF 2020-05-26 10:08:00 Mihai [facility] MAGNESIUM 2020-05-25 08:50:00 Mihai [facility] BASIC METABOLIC PANEL 2020-05-25 08:50:00 [facility] (NA, K, CL, CO2, GLUCOSE, Medica l Branch BUN, CREATININE, CA) CBC WITH DIFF 2020-05-25 08:50:00 Mihai [facility] POCT GLUCOSE (AUTOMATED) 2020-05-24 22:30:00 Andrea Sandoval [facility] VANCOMYCIN RANDOM LEVEL 2020-05-24 18:50:00 Kwaku Khan [facility] MAGNESIUM 2020-05-24 09:32:00 Merced Holm [facility] BASIC METABOLIC PANEL 2020-05-24 09:32:[address] [facility] (NA, K, CL, CO2, GLUCOSE, Medica l Branch BUN, CREATININE, CA) VANCOMYCIN RANDOM LEVEL 2020-05-24 09:32:00 Kwaku Khan [facility] VANCOMYCIN TROUGH 2020-05-23 18:05:00 Murray Bright [facility] MAGNESIUM 2020-05-23 08:59:00 [facility] BASIC METABOLIC PANEL 2020-05-23 08:59:00 Mihai [facility] (NA, K, CL, CO2, GLUCOSE, Medica l Branch BUN, CREATININE, CA) CBC WITH DIFF 2020-05-23 08:59:00 Mihai [facility] CLOSTRIDIUM DIFFICILE 2020-05-23 08:37:00 Keira Briceno [facility] TOXIN [facility] CBC WITHOUT DIFF 2020-05-22 15:12:00 [facility] MAGNESIUM 2020-05-22 07:22:00 Mihai [facility] BASIC METABOLIC PANEL 2020-05-22 07:22:00 Mihai [facility] (NA, K, CL, CO2, GLUCOSE, Medica l Branch BUN, CREATININE, CA) CBC WITH DIFF 2020-05-22 07:22:00 Mihai [facility] VANCOMYCIN RANDOM LEVEL 2020-05-22 02:46:00 Merced Holm [facility] BLOOD CULTURE SCREEN 2020-05-22 02:36:00 Mihai [facility] BLOOD CULTURE SCREEN 2020-05-22 02:35:00 Mihai [facility] CT SHOULDER LEFT WO 2020-05-21 23:54:32 Darnell Chau [facility] CBC WITHOUT DIFF 2020-05-21 23:21:00 [facility] CREATINE KINASE 2020-05-21 20:42:00 Kaila [facility] ECHO ROUTINE W/DOPPLER 2020-05-21 15:19:59 Scott, Emily [facility] COLOR [facility] XR ELBOW <3 VW LEFT 2020-05-21 14:51:45 Darnell Chau [facility] XR FEMUR 2 VW LEFT 2020-05-21 14:51:45 Darnell Chau [facility] XR HUMERUS 2 VW LEFT 2020-05-21 14:51:45 Darnell Chau [facility] XR SHOULDER <2 VW LEFT 2020-05-21 14:51:45 Darnell Chau [facility] VITAMIN B1 (THIAMINE), 2020-05-21 08:31:00 [facility] WHOLE BLOOD [facility] CREATINE KINASE 2020-05-21 08:30:00 Maximus [facility] MAGNESIUM 2020-05-21 08:30:00 [facility] TROPONIN I 2020-05-21 08:30:00 [facility] BASIC METABOLIC PANEL 2020-05-21 08:30:00 [facility] (NA, K, CL, CO2, GLUCOSE, Medica l Branch BUN, CREATININE, CA) CBC WITH DIFF 2020-05-21 08:30:00 [facility] MRSA / MSSA SCREEN BY 2020-05-21 08:30:00 [facility], [facility] XR HIPS 2 VW LEFT 2020-05-21 05:46:58 [facility] XR SHOULDER 2+ VW LEFT 2020-05-21 03:22:00 [facility] EKG-12 LEAD 2020-05-21 02:53:38 [facility] MAGNESIUM 2020-05-21 01:41:00 [facility] TROPONIN I 2020-05-21 01:41:00 Keon Mercer [facility] HEPATIC FUNCTION PANEL 2020-05-21 01:41:00 [facility] ([id number]) (ALB,T.PRO,BILI Medical Branch T,BU/BC,ALT,AST,ALK PHOS) PHOSPHORUS 2020-05-20 23:33:00 Scott, [facility] CREATINE KINASE 2020-05-20 23:33:00 [facility] LIPASE 2020-05-20 23:33:00 Scott, [facility] MAGNESIUM 2020-05-20 23:33:00 Scott, [facility] VITAMIN B12, LEVEL 2020-05-20 23:33:00 Merced Holm [facility] FOLATE 2020-05-20 23:33:00 Mihai [facility] THYROID STIMULATING 2020-05-20 23:33:00 [facility] HORMONE [facility] BASIC METABOLIC PANEL 2020-05-20 23:33:00 [facility] (NA, K, CL, CO2, GLUCOSE, Medica l Branch BUN, CREATININE, CA) CBC WITH DIFF 2020-05-20 23:33:00 [facility] D-DIMER 2020-05-20 23:33:00 Scott, [facility] FIBRINOGEN 2020-05-20 23:33:00 Scott, [facility] URINALYSIS 2020-05-20 23:33:00 Scott, [facility] URINE CULTURE 2020-05-20 23:33:00 Scott, [facility] CREATININE, URINE RANDOM 2020-05-20 23:33:00 Scott, [facility] UREA NITROGEN, URINE 2020-05-20 23:33:00 Scott, [facility] PROCALCITONIN 2020-05-20 23:33:00 Scott, [facility] [place] INSERT NON-TUNNEL CV 2020-05-20 23:30:[address] [facility] ACUTE CARE VENOUS BLOOD 2020-05-20 23:01:00 Emmanuelle Melgar [facility] GAS [facility] N-TERMINAL PRO-BNP 2020-05-20 22:53:00 [facility]ST 1 VW 2020-05-20 22:39:22 Mike MelgarDonta [facility] EKG-12 LEAD 2020-05-20 22:34:28 [facility] BLOOD CULTURE SCREEN 2020-05-20 22:27:00 Ramón, ArnelDonta [facility] BLOOD CULTURE WORKUP 2020-05-20 22:27:00 Ramón, [facility] BLOOD CULTURE WORKUP 2020-05-20 22:27:00 Ramón, [facility] GRAM POSITIVE BLOOD 2020-05-20 22:27:00 Ramón, [facility] PATHOGENS DNA Medical Branch PROBE-ANAEROBIC EKG-12 LEAD 2020-05-20 22:24:44 Ramón, [facility] EKG-12 LEAD 2020-05-20 22:16:30 Ramón, [facility] GALV/CLC ONLY - URINE 2020-05-20 22:12:00 Ramón, [facility] DRUG (IMMUNOASSAY) - 4 ER Medica l Branch PANEL LACTIC ACID WHOLE BLOOD 2020-05-20 21:45:00 Ramón, [facility] EKG-12 LEAD 2020-05-20 21:44:28 Ramón, [facility] EKG-12 LEAD 2020-05-20 21:04:29 Ramón, [facility] COVID-19 (ID NOW RAPID 2020-05-20 20:30:00 Ramón, [facility] TESTING) [facility] CT STROKE HEAD WO 2020-05-20 20:01:49 Ramón [facility] CONTRAST [facility] TROPONIN I 2020-05-20 19:50:00 Ramón, [facility] BASIC METABOLIC PANEL 2020-05-20 19:50:00 Ramón, [facility] (NA, K, CL, CO2, GLUCOSE, Medica l Branch BUN, CREATININE, CA) ETHANOL 2020-05-20 19:50:00 Ramón, [facility] CBC WITHOUT DIFF 2020-05-20 19:50:00 Ramón, [facility] PROTHROMBIN TIME / INR 2020-05-20 19:50:00 Emmanuelle Melgar [facility] ACTIVATED PARTIAL 2020-05-20 19:50:00 Emmanuelle Melgar [facility] HB CREATININE BLOOD 2020-05-20 19:50:00 Emmanuelle Melgar [facility] POCT GLUCOSE (AUTOMATED) 2020-05-20 19:48:00 Emmanuelle Melgar [facility] HOSPITAL ADMISSION 2020-05-20 05:01:00 [facility] [place] [facility] Encounters Start End Encounter Admission Attending Care Care Encounter Source Date/Time Date/Time Type Type Clinicians Facility Department ID 2021-09-08 Outpatient 3 Benji, [facility] JORDAN [id number] [facility] 10:47:39 Susie 1014 2021-09-08 Outpatient 3 [id number] [facility] REF [id number] [facility] 10:46:56 1013 2021-09-07 Outpatient [place], [facility] [id number] 14:10:05 [place] [id number] [facility] 2021-09-07 Outpatient Dinero, [facility] [id number] 14:03:57 [place] [id number] [facility] 2021-09-07 Outpatient Dinero, [facility] 13[facility]59:43 [place] [id number] [facility] 2021-09-07 Outpatient Dinero, [facility] [id number] 13:21:38 [place] [id number] [facility] 2021-09-07 Outpatient Dinero, [facility] [id number] 13:19:11 [place] [id number] [facility] 2021-09-07 Outpatient Dinero, [facility] [id number] 12:27:26 [place] [id number] [facility] 2021-09-07 Outpatient Dinero, [facility] [id number] 12:23:27 [place] [id number] [facility] 2021-09-07 Outpatient Dinero, [facility] [id number] 12:18:07 [place] [id number] [facility] 2021-09-07 Outpatient Dinero, [facility] [id number] 12:14:02 [place] [id number] [facility] 2021-09-07 Outpatient Dinero, [facility] [id number] 12:09:12 [place] [id number] [facility] 2021-09-07 Outpatient Dinero, [facility] [id number] 12:07:50 [place] [id number] [facility] 2021-09-07 Outpatient Dinero, [facility] [id number] 12:07:19 [place] [id number] [facility] 2021-09-07 Outpatient Dinero, [facility] [id number] 12:02:12 [place] [id number] [facility] 2021-09-07 Outpatient Dinero, [facility] [id number] 11:41:07 [place] [id number] [facility] 2021-09-07 Outpatient Dinero, [facility] [id number] 11:36:50 [place] [id number] [facility] 2021-09-07 Outpatient Dinero, [facility] [id number] 11:32:26 [place] [id number] [facility] 2021-09-07 Outpatient Din[place], [facility] [id number] 11:29:28 [place] [id number] [facility] 2021-09-07 Outpatient Din[place], [facility] [id number] 11:29:23 [place] [id number] [facility] 2021-09-07 Outpatient [place], [facility] [id number] 11:21:52 [place] [address] [facility] 2020-06-04 Outpatient NEW ENCCLR ENCCLR [id number] EN CCLR 14:27:33 ADMISSION 2021-09-06 2021-09-06 ambulatory [facility]MLC [facility] [id number] [facility] 2021-09-05 2021-09-05 ambulatory [facility]LMLC [facility] [id number] [facility] 2021-08-30 2021-08-30 ambulatory [facility]LMLC [facility] [id number] [facility]00 [facility] 2021-06-17 2021-06-17 ambulatory [facility]LMLC STL[facility]C [id number] [facility]00 [facility] [facility] 2021-06-06 2021-06-06 [facility] [id number] [facility] 2021-05-19 2021-05-19 [facility] [id number] [facility] 2021-03-17 2021-03-17 [facility] [id number] [facility] 2021-03-15 2021-03-15 Out[facility] [id number] [facility] 2021-02-12 2021-02-12 Outpatient [facility] [id number] [facility] 2021-02-11 2021-02-11 Out[facility] [id number] [facility] 2021-02-10 2021-02-10 Out[facility] [id number] [facility] 2021-01-27 2021-01-27 Out[facility] [id number] [facility] 2021-01-06 2021-01-06 [facility] [id number] [facility] 2020-12-30 2020-12-30 Outpatient [facility] [id number] [facility] 2020-12-17 2020-12-17 Out[facility] [id number] [facility] 2020-12-15 2020-12-15 Out[facility] [id number] [facility] 2020-11-29 2020-11-29 Out[facility] [id number] [facility] 2020-11-24 2020-11-24 Out[facility] [id number] [facility] 2020-11-01 2020-11-01 Outpatient [facility] [id number] [facility] 2020-09-01 2020-09-01 Out[facility] [id number] [facility] 2020-09-01 2020-09-01 Out[facility] [id number] [facility] 2020-08-19 2020-08-19 Jani STARKEY [facility] Orthopedics 7 [id number] [facility] 10:45:00 10:45:00 t; TINOMireille YAÑEZ M.D. [place] STEPHEN, Physici M.D. ans 2020-08-18 2020-08-18 Outpatient [facility] [id number] [facility] 2020-08-16 2020-08-16 Orders Doctor CRISTINA [id number] 00:00:00 00:00:00 Only Unassigned, ED[id number] [facility] 4.2.7.2.686 [id number] 2020-08-16 2020-08-16 Orders Doctor CRISTINA [id number] Univers 00:00:00 00:00:00 Only Unassigned, EDI 350.1.13.10 ity of [facility] 4.2.7.2.686 [place] as [id number] [address] 2020-07-26 2020-07-26 Outpatient [facility] [id number] [facility] 2020-07-15 2020-07-15 [facility] Orthopedics 7 [id number] Univers 13:15:00 13:15:00 tMireille MARKS M.D. [place] STEPHEN, Physici M.D. ans 2020-07-15 2020-07-15 Outpatient [facility] [id number] [facility] 2020-07-14 2020-07-14 Outpatient [facility] [id number] [facility] 2020-07-06 2020-07-06 Outpatient [facility] [id number] [facility] 2020-07-01 2020-07-01 Outpatient [facility] [id number] [facility] 2020-06-30 2020-06-30 Outpatient [facility] [id number] [facility] 2020-06-16 2020-06-16 [id number] 2020-06-15 2020-06-15 [facility] Orthopedics 7 [id number] [facility] 15:30:00 15:30:00 t; Mireille JIMÉNEZ y cara STARKEY M.D. [place] Denis JIMÉNEZ M.D. [facility] 2020-06-04 2020-06-04 [id number] 2020-05-20 2020-05-26 [facility] Emmanuelle Melgar 1.2.840.11 4 [id number] 14:41:00 19:55:00 Encounter Joyce Leachisidro Daley [id number] [facility] 4.2.7.2.686 [id number] [facility] 2020-05-20 2020-05-26 [facility] 1.2.840.11 [id number] [facility] 14:41:00 19:55:00 Encounter Regina Leachy 350.1.13.10 ity [facility] 4.2.7.2.686 [place] [id number] [address] 2020-05-20 2020-05-20 Emergency X EMMANUELLE MELGAR [facility] ERT 1 [id number] Univers 14:41:00 14:41:00 EMMANUELLE MELGAR ity [facility] 2020-04-26 2020-04-26 [facility] [id number] 14:21:00 14:21:00 t [facility] 2020-04-07 2020-04-07 [facility] [id number] 08:03:00 08:03:00 t Peel [facility] 2020-04-06 2020-04-06 [facility] [id number] 14:45:00 14:45:00 t [employer] [facility] Medicine l Medicine Outpati ent Clinics 2020-03-23 2020-03-23 [facility] [id number] 13:45:00 13:45:00 t [employer] [facility] Medicine Medicine Outpati ent Clinics 2020-03-22 2020-03-22 [facility] [id number] 14:18:00 14:18:00 t [employer] [facility] Medicine Medicine Outpati ent Clinics 2020-03-18 2020-03-18 [facility] [id number] 17:11:00 17:11:00 t [employer] [facility] Medicine Outpati ent Clinics 2020-03-16 2020-03-16 [facility] [id number] 15:15:00 15:15:00 t [employer] [facility] Medicine Medicine Outpati ent Clinics 2020-03-12 2020-03-12 [facility] [id number] 13:47:00 13:47:00 t [employer] [facility] Medicine Outpati ent Clinics Results Test Description Test Time Test Comments Results Result Sour e Comments [U] XRAY SHOULDER 2020-08-19 Images Univers ity of MIN 2 VWS LEFT 10:48:00 acquired, not [place] [address] reported on Physicians this accession number. [U] XRAY SHOULDER 2020-07-15 Images Univers ity of MIN 2 VWS LEFT 13:19:00 acquired, not [place] [address] reported on Physicians this accession number. [U] XRAY SHOULDER 2020-06-15 Images Univers ity of MIN 2 VWS LEFT 16:04:00 acquired, not [place] [address] reported on Physicians this accession number. CBC [...] L [Au tomated message] The system which [employer] nerated this result transmit nava reference range: [...] g/dL 31.6-35.1 L RDW-SD (test code = 68652-0) 54.4 fL 39-49.9 H RDW-CV (test code = 788-0) 17.3 % 12-15.5 H PLT (test code = 777-3) See_Comment [Au tomated message] The system which [employer] nerated this result transmit nava reference range: 166 - 35 8 10*3/?L. The reference range was not used to interpret th is result as normal/abnormal . MPV (test code = 55456-3) 9.2 fL 9.5-12.9 L NRBC/100 WBC (test code = See_Comment [ Automated message] The 0239336527) system which [employer] nerated this result transmit nava reference range: 0.0 - 10 .0 /100 WBCs. The reference r josias was not used to interpr et this result as normal/abnor mal. NRBC x10^3 (test code = See_Comment [Au tomated message] The 0362238268) system which [employer] nerated this result transmit nava reference range: 10*3/?L. The reference range was not u sed to interpret this result as normal/abnormal . GRAN MAT (NEUT) % (test code 46.6 % = 770-8) IMM GRAN % (test code = 9.70 % 1428498699) LYMPH % (test code = 736-9) 22.7 % MONO % (test code = 5905-5) 19.3 % EOS % (test code = 713-8) 1.4 % BASO % (test code = 706-2) 0.3 % GRAN MAT x10^3(ANC) (test 3.06 10*3/uL 1.88-7.09 code = 6255737238) IMM GRAN x10^3 (test code = 0.64 10*3/uL 0-0.06 H 1899667310) LYMPH x10^3 (test code = 1.49 10*3/uL 1.32-3.29 731-0) MONO x10^3 (test code = 1.27 10*3/uL 0.33-0.92 H 742-7) EOS x10^3 (test code = 0.09 10*3/uL 0.03-0.39 711-2) BASO x10^3 (test code = <0.03 0.01-0.07 704-7) BASO STIPPLING (test code = Present A 703-9) POLYCHROMASIA (test code = 2+ See_Comment [Automated message] The 97133-0) system which ge nerated this result transmit nava reference range: 2+. The reference range was not used to interpret this result as garett l/abnormal. Lab Interpretation (test Abnormal code = 16003-9) [facility] METABOLIC PANEL (NA, K, CL, CO2, GLUCOSE, BUN, CREATININE, CA)2020-05-26 10:50:00 Test Item Value Reference Range Interpretation Comments NA (test code = 140 mmol/L 135-145 4896553942) K (test code = 3.5 mmol/L 3.5-5 7298270294) CL (test code = 104 mmol/L 98-108 0682567642) CO2 TOTAL (test code = 29 mmol/L 23-31 0928364776) AGAP (test code = 2-16 3897325266) BUN (test code = 40 mg/dL 7-23 H 6538457529) GLUCOSE (test code = 168 mg/dL 70-110 H 7902129623) CREATININE (test code = 1.50 mg/dL 0.5-1.04 H 5918376181) CALCIUM (test code = 8.6 mg/dL 8.6-10.6 0773187496) eGFR Calculation mL/min/1.73m2 (Non-) (test code = 3390055177) eGFR Calculation mL/min/1.73m2 () (test code = 6006908540) SANDEEP (test code = SANDEEP) Association of [...] tests). Lab Interpretation Abnormal (test code = 46256-5) [facility] WHOLE [id number] 18:39:00 Test Item Value Reference Range Interpretation Comments Vitamin B1, Whole 44 nmol/L 70-180 L INTERPRETI VE Blood (test code = INFORMATI ON: Vitamin 80249-8) B1, Whole Blood This assay measures the [...] Laboratories. S ee Compliance Stat ement B: [place]/CONCHITA reddy By: [facility] [place] [address] [id number] Director: Liliana Brito MD Lab Interpretation Abnormal (test code = 04930-3) [facility] METABOLIC PANEL (NA, K, CL, CO2, GLUCOSE, BUN, CREATININE, CA)2020-05-25 10:17:00 Test Item Value Reference Range Interpretation Comments NA (test code = 140 mmol/L 135-145 2255059628) K (test code = 3.8 mmol/L 3.5-5 4553152725) CL (test code = 105 mmol/L 98-108 2041229790) CO2 TOTAL (test code = 29 mmol/L 23-31 3730265303) AGAP (test code = 2-16 3606996532) BUN (test code = 47 mg/dL 7-23 H 5763595311) GLUCOSE (test code = 114 mg/dL 70-110 H 2895687857) CREATININE (test code = 1.63 mg/dL 0.5-1.04 H 7077281817) CALCIUM (test code = 9.1 mg/dL 8.6-10.6 2483571789) eGFR Calculation mL/min/1.73m2 (Non-) (test code = 0357044113) eGFR Calculation mL/min/1.73m2 () (test code = 1452034619) SANDEEP (test code = SANDEEP) Association of [...] tests). Lab Interpretation Abnormal (test code = 33049-4) [facility] WITH [id number] 09:45:00 Test Item Value Reference Range Interpretation [...] (test code = 51.3 fL 39-49.9 H 12507-2) RDW-CV (test code = 16.7 % 12-15.5 H 788-0) PLT (test code = See_Comment [Automated 777-3) message] The sy stem which generated this result transmitted reference range : 166 - 358 10*3/ ?L. The reference r josias was not used to interpret this result as normal/abnormal . MPV (test code = 9.6 fL 9.5-12.9 88637-3) IPF % (test code = 1.9 % 1.3-7.7 Platelet count 4130766208) measured by fluorescence method. NRBC/100 WBC (test See_Comment [Automat ed code = 1766339984) message] The system which generated this result transmitted reference range : 0.0 - 10.0 /100 WBCs. The refer ence range was not u sed to interpret th is result as normal/abnormal . NRBC x10^3 (test code See_Comment [Auto mated = 1758163995) message] The s ystem which generated this result transmitted reference range : 10*3/?L. The reference range was not used to interpret this result as normal/abnormal . GRAN MAT (NEUT) % 56.7 % (test code = 770-8) IMM GRAN % (test code 6.90 % = 7452208624) LYMPH % (test code = 14.5 % 736-9) MONO % (test code = 20.2 % 5905-5) EOS % (test code = 0.9 % 713-8) BASO % (test code = 0.8 % 706-2) GRAN MAT x10^3(ANC) 4.25 10*3/uL 1.88-7.09 (test code = 1217970165) IMM GRAN x10^3 (test 0.52 10*3/uL 0-0.06 H code = 1415993853) LYMPH x10^3 (test code 1.09 10*3/uL 1.32-3.29 L = 731-0) MONO x10^3 (test code 1.52 10*3/uL 0.33-0.92 H = 742-7) EOS x10^3 (test code = 0.07 10*3/uL 0.03-0.39 711-2) BASO x10^3 (test code 0.06 10*3/uL 0.01-0.07 = 704-7) BASO STIPPLING (test Present A code = 703-9) HYPERSEG NEUTS (test Present See_Comment A [Autom ated code = 765-8) message] The s [employer] which generated this result transmitted reference range : (none). The reference range was not used to interpret this result as normal/abnormal . Lab Interpretation Abnormal (test code = 61724-5) [facility] 09:30:00 Test Item Value Reference Range Interpretation Comments MAGNESIUM (test code = 4747517417) 2.3 mg/dL 1.7-2.4 Lab Interpretation (test code = Normal 84555-1) [facility])2020-05-24 22:30:00 Test Item Value Reference Range Interpretation Comments POCT GLU (test code = 3243548243) 148 mg/dL 70-110 H Lab Interpretation (test code = Abnormal 32207-8) [facility] Random [id number] 20:33:00 Test Item Value Reference Range Interpretation Comments VANCO RANDOM (test code = 19.0 ug/mL 4188315281) [facility] [id number] 16:13:00 Test Item Value Reference Range Interpretation Comments Blood Culture Staphylococcus Organism william ntified Workup (test epidermidis by DNA probeFor code = 600-7) susceptibility results, refer to culture # - [id number] Gram stain Isolated from aerobic This i s an appended (test code = bottle Gram positive report. These 664-3) cocci results have be en appended to a previously preliminary ramone ified report. [facility] Random [id number] 11:34:00 Test Item Value Reference Range Interpretation Comments VANCO RANDOM (test code = 22.3 ug/mL 7244641095) [facility]OL[facility] PAN[facility] (NA, K, CL, CO2, GLUCOSE, BUN, CREATININE, CA)2020-05-24 11:29:00 Test Item Value Reference Range Interpretation Comments NA (test code = 137 mmol/L 135-145 3972105970) K (test code = 4.5 mmol/L 3.5-5 Slight 2403892615) hemolysis CL (test code = 107 mmol/L 98-108 9514783715) CO2 TOTAL (test code 23 mmol/L 23-31 = 3961194736) AGAP (test code = 2-16 3345597016) BUN (test code = 54 mg/dL 7-23 H Slight 5240958462) hemolysis GLUCOSE (test code = 99 mg/dL 70-110 9663461363) CREATININE (test code 1.86 mg/dL 0.5-1.04 H = 0238107362) CALCIUM (test code = 8.6 mg/dL 8.6-10.6 1404153448) eGFR Calculation mL/min/1.73m2 (Non-) (test code = 7914103635) eGFR Calculation mL/min/1.73m2 () (test code = 3458355858) SANDEEP (test code = SANDEEP) Association of [...] tests). Lab Interpretation Abnormal (test code = 16230-0) [facility]2020-10-12 11:29:00 Test Item Value Reference Range Interpretation Comments MAGNESIUM (test code = 1781492100) 1.5 mg/dL 1.7-2.4 L Lab Interpretation (test code = Abnormal 88057-9) [facility] T[facility] Level - Draw within 30 minutes prior to 4TH dose.2020-05-23 19:20:00 Test Item Value Reference Range Interpretation Comments VANCO TROUGH (test code 12.1 ug/mL 06-01 = 8206274625) SANDEEP (test code = SANDEEP) Toxic Range: ?>20 ug/mL 15-20 ug/mL is recommended for severe infection or when Vancomycin PIA is greater than or equal to 2. Lab Interpretation (test Normal code = 48537-3) [facility] DIFFICILE [id number] 15:36:00 Test Item Value Reference Range Interpretation Comments Clostridioides (Clostridium) Negative Negative difficile (test code = 65233-4) Lab Interpretation (test code = Normal 87165-7) [facility] LEFT WO [id number] 15:02:04 Proximal humerus fracture extending through the [...] impaction and posterior fragment displacement with joint effusion.[facility] CULTURE [id number] 13:38:00 Test Item Value Reference Range Interpretation Comments Blood Culture-Aerobic Culture positive. No growth AA P revious (test code = 33895-3) See Blood prelim inary Culture Workup verified resu lt for additional was Culture I n information. Progress on 05/22/2020 at 0003 CDT Blood Culture positive. No growth AA Previous Culture-Anaerobic See Blood preliminar y (test code = 85285-5) Culture Workup veri fied result for additional was Culture I n information. Progress on 05/21/2020 at 06 01 CDT Lab Interpretation Abnormal (test code = 61437-2) [facility] CULTURE [id number] 13:36:00 Test Item Value Reference Range Interpretation Comments Blood Culture-Aerobic Culture positive. No growth AA P revious (test code = 97418-8) See Blood prelim inary Culture Workup verified resu lt for additional was Culture I n information. Progress on 05/21/2020 at 06 01 CDT Blood Culture positive. No growth AA Previous Culture-Anaerobic See Blood preliminar y (test code = 50623-0) Culture Workup veri fied result for additional was Culture I n information. Progress on 05/21/2020 at 06 01 CDT Lab Interpretation Abnormal (test code = 97264-3) [facility] WITH [id number] 10:10:00 Test Item Value Reference Range Interpretation [...] RDW-SD (test code = 48.9 fL 39-49.9 07678-3) RDW-CV (test code = 15.9 % 12-15.5 H 788-0) PLT (test code = See_Comment L [Automated 777-3) message] The sy stem which generated this result transmitted reference range : 166 - 358 10*3/ ?L. The reference r josias was not used to interpret this result as normal/abnormal . MPV (test code = 10.2 fL 9.5-12.9 24813-2) NRBC/100 WBC (test See_Comment [Automat ed code = 3350912039) message] The system which generated this result transmitted reference range : 0.0 - 10.0 /100 WBCs. The refer ence range was not u sed to interpret th is result as normal/abnormal . NRBC x10^3 (test code See_Comment [Auto mated = 2016005074) message] The s ystem which generated this result transmitted reference range : 10*3/?L. The reference range was not used to interpret this result as normal/abnormal . GRAN MAT (NEUT) % 64.1 % (test code = 770-8) IMM GRAN % (test code 5.10 % = 3325993383) LYMPH % (test code = 20.9 % 736-9) MONO % (test code = 8.4 % 5905-5) EOS % (test code = 1.1 % 713-8) BASO % (test code = 0.4 % 706-2) GRAN MAT x10^3(ANC) 2.88 10*3/uL 1.88-7.09 (test code = 5034560376) IMM GRAN x10^3 (test 0.23 10*3/uL 0-0.06 H code = 2248960944) LYMPH x10^3 (test code 0.94 10*3/uL 1.32-3.29 L = 731-0) MONO x10^3 (test code 0.38 10*3/uL 0.33-0.92 = 742-7) EOS x10^3 (test code = 0.05 10*3/uL 0.03-0.39 711-2) BASO x10^3 (test code <0.03 0.01-0.07 = 704-7) TOXIC CHANGES (test Present A code = 803-7) Lab Interpretation Abnormal (test code = 41904-0) [facility] METABOLIC PANEL (NA, K, CL, CO2, GLUCOSE, BUN, CREATININE, CA)2020-05-23 09:52:00 Test Item Value Reference Range Interpretation Comments NA (test code = 134 mmol/L 135-145 L 5332687620) K (test code = 3.5 mmol/L 3.5-5 0126195245) CL (test code = 104 mmol/L 98-108 3400730635) CO2 TOTAL (test code = 22 mmol/L 23-31 L 2582342119) AGAP (test code = 2-16 3813445893) BUN (test code = 55 mg/dL 7-23 H 6781420180) GLUCOSE (test code = 142 mg/dL 70-110 H 4794182864) CREATININE (test code = 2.04 mg/dL 0.5-1.04 H 2922108929) CALCIUM (test code = 8.3 mg/dL 8.6-10.6 L 6181790607) eGFR Calculation mL/min/1.73m2 (Non-) (test code = 4514951679) eGFR Calculation mL/min/1.73m2 () (test code = 9006149240) SANDEEP (test code = SANDEEP) Association of [...] tests). Lab Interpretation Abnormal (test code = 99356-9) [facility]2020-10-11 09:52:00 Test Item Value Reference Range Interpretation Comments MAGNESIUM (test code = 4547441055) 1.8 mg/dL 1.7-2.4 Lab Interpretation (test code = Normal 99581-9) [facility] Hospital[facility] WITHOUT [id number] 15:23:00 Test Item Value Reference Range Interpretation Comments WBC (test code = 6690-2) See_Comment [A utomated message] The system [employer] generated this result transmit nava reference range : 4.30 - 11.10 10*3/?L. The reference range was not used to interpret this result as normal/abnormal . RBC (test code = 789-8) See_Comment L [Au tomated message] The system [employer] generated this result transmit nava reference range [...] See_Comment L [Au tomated message] The system [employer] generated this result transmit nava reference range : 166 - 358 10*3/?L. The reference range was not used to interpret this result as normal/abnormal . MPV (test code = 10.2 fL 9.5-12.9 98232-1) RDW-CV (test code = 15.6 % 12-15.5 H 788-0) RDW-SD (test code = 48.3 fL 39-49.9 53680-4) NRBC x10^3 (test code = See_Comment [Au tomated message] 6495125309) The system [employer] generated this result transmit nava reference range : 10*3/?L. The reference range was not used to interpret this result as normal/abnormal . NRBC/100 WBC (test code See_Comment [Au tomated message] = 2636492669) The system [facility] generated this result transmit nava reference range : 0.0 - 10.0 /100 WBC s. The reference r josias was not used to interpret this result as normal/abnormal . IPF % (test code = 2823077621) Lab Interpretation (test Abnormal code = 91347-3) [facility] (NA, K, CL, CO2, GLUCOSE, BUN, CREATININE, CA)2020-05-22 08:05:00 Test Item Value Reference Range Interpretation Comments NA (test code = 134 mmol/L 135-145 L 1422069075) K (test code = 3.3 mmol/L 3.5-5 L 1988272368) CL (test code = 103 mmol/L 98-108 1862549972) CO2 TOTAL (test code = 23 mmol/L 23-31 7855475642) AGAP (test code = 2-16 9016580476) BUN (test code = 57 mg/dL 7-23 H 1020613023) GLUCOSE (test code = 130 mg/dL 70-110 H 8664257137) CREATININE (test code = 2.26 mg/dL 0.5-1.04 H 6002863817) CALCIUM (test code = 8.0 mg/dL 8.6-10.6 L 3383624658) eGFR Calculation mL/min/1.73m2 (Non-) (test code = 3540166532) eGFR Calculation mL/min/1.73m2 () (test code = 9737964002) SANDEEP (test code = SANDEEP) Association of [...] tests). Lab Interpretation Abnormal (test code = 87897-6) [facility]-10-10 08:05:00 Test Item Value Reference Range Interpretation Comments MAGNESIUM (test code = 0443108941) 2.4 mg/dL 1.7-2.4 Lab Interpretation (test code = Normal 62636-1) [facility] WITH [id number] 07:44:00 Test Item Value Reference Range Interpretation [...] RDW-SD (test code = 48.8 fL 39-49.9 25613-3) RDW-CV (test code = 15.9 % 12-15.5 H 788-0) PLT (test code = See_Comment L [Automated 777-3) message] The sy stem which generated this result transmitted reference range : 166 - 358 10*3/ ?L. The reference r josias was not used to interpret this result as normal/abnormal . MPV (test code = 10.2 fL 9.5-12.9 00223-8) NRBC/100 WBC (test See_Comment [Automat ed code = 7317266536) message] The system which generated this result transmitted reference range : 0.0 - 10.0 /100 WBCs. The refer ence range was not u sed to interpret th is result as normal/abnormal . NRBC x10^3 (test code See_Comment [Auto mated = 6497228268) message] The s ystem which generated this result transmitted reference range : 10*3/?L. The reference range was not used to interpret this result as normal/abnormal . GRAN MAT (NEUT) % 78.8 % (test code = 770-8) IMM GRAN % (test code 1.10 % = [id number]) LYMPH % (test code = 12.3 % 736-9) MONO % (test code = 6.5 % 5905-5) EOS % (test code = 1.2 % 713-8) BASO % (test code = 0.1 % 706-2) GRAN MAT x10^3(ANC) 7.21 10*3/uL 1.88-7.09 H (test code = [id number]) IMM GRAN x10^3 (test 0.10 10*3/uL 0-0.06 H code = [id number]) LYMPH x10^3 (test code 1.12 10*3/uL 1.32-3.29 L = 731-0) MONO x10^3 (test code 0.59 10*3/uL 0.33-0.92 = 742-7) EOS x10^3 (test code = 0.11 10*3/uL 0.03-0.39 711-2) BASO x10^3 (test code <0.03 0.01-0.07 = 704-7) Lab Interpretation Abnormal (test code = 67640-7) [facility] HospitalGRAM POSITIVE BLOOD PATHOGENS DNA [id number] 06:07:00 Test Item Value Reference Range Interpretation Comments Coagulase Negative Positive Negative, See A Staphylococcus (test Comment/Narrative code = 16398-3) SANDEEP (test code = SANDEEP) Coagulase negative [...] contact the Antimicrobial Stewardship Program with questions.Pager: ?[phone] Testing included eleven identification and three resistance marker targets. Lab Interpretation Abnormal (test code = 44190-2) [facility] HospitalVancomycin Random [id number] 04:46:00 Test Item Value Reference Range Interpretation Comments VANCO RANDOM (test code = 5493460652) <5.0 ug/mL [facility] HospitalCBC WITHOUT [id number] 23:31:00 Test Item Value Reference Range Interpretation Comments WBC (test code = 6690-2) See_Comment [A utomated message] The system [employer] generated this result transmit nava reference range : 4.30 - 11.10 10*3/?L. The reference range was not used to interpret this result as normal/abnormal . RBC (test code = 789-8) See_Comment L [Au tomated message] The system [employer] generated this result transmit nava reference range [...] See_Comment L [Au tomated message] The system [employer] generated this result transmit nava reference range : 166 - 358 10*3/?L. The reference range was not used to interpret this result as normal/abnormal . MPV (test code = 10.5 fL 9.5-12.9 17461-6) RDW-CV (test code = 16.0 % 12-15.5 H 788-0) RDW-SD (test code = 49.4 fL 39-49.9 44292-7) NRBC x10^3 (test code = <0.01 See_Comment [Au tomated message] 3125966721) The system [employer] generated this result transmit nava reference range : 10*3/?L. The reference range was not used to interpret this result as normal/abnormal . NRBC/100 WBC (test code See_Comment [Au tomated message] = 3625300004) The system [employer] generated this result transmit nava reference range : 0.0 - 10.0 /100 WBC s. The reference r josisa was not used to interpret this result as normal/abnormal . IPF % (test code = 8675923750) Lab Interpretation (test Abnormal code = 61535-2) [facility] HospitalCREATINE [id number] 21:30:00 Test Item Value Reference Range Interpretation Comments CK (test code = 1266840382) 2974 U/L 33-194 H Lab Interpretation (test code = Abnormal 30579-4) [facility] HospitalCREATINE [id number] 20:54:00 Test Item Value Reference Range Interpretation Comments CK (test code = 9300603819) 4670 U/L 33-194 H Lab Interpretation (test code = Abnormal 62231-1) [facility] HospitalURINE [id number] 20:43:00 Test Item Value Reference Range Interpretation Comments URINE CULTURE (test No aerobic growth (< code = 630-4) 1000 CFU/mL) [facility] HospitalPOCT [id number] 19:00:00 Test Item Value Reference Range Interpretation Comments POCT Creatinine (test code = 7.4 mg/dL 0.5-1.1 H 1328434521) Lab Interpretation (test code = Abnormal 08362-1) [facility] HospitalMRSA / MSSA Screen by PCR, [id number] 16:40:00 Test Item Value Reference Range Interpretation Comments MSSA Screen by PCR, Positive Negative A Nares (test code = 20321-2) MRSA/MSSA Positive? Yes No A (test code = 8677242299) SANDEEP (test code = SANDEEP) A positive test result does not necessarily indicate the presence of viable organism. Lab Interpretation (test Abnormal code = 99666-3) [facility] HospitalXR HUMERUS 2 VW [id number] 15:55:36 Stable appearing greater tuberosity fracture. Lateral [...] glenoid fossa. No other fracture is seen. 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 Lateral [...] glenoid fossa. No other fracture is seen. 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 Lateral [...] glenoid fossa. No other fracture is seen. 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.[facility] HospitalHEPATIC FUNCTION PANEL (04671) (ALB,T.PRO,BILI T,BU/BC,ALT,AST,ALK PHOS)2020-05-21 13:04:00 Test Item Value Reference Range Interpretation Comments TOTAL BILI (test code = 2207153941) 0.7 mg/dL 0.1-1.1 BILI UNCON (test code = 0998854464) 0.6 mg/dL 0.1-1.1 BILI CONJ (test code = 3367980372) 0.0 mg/dL 0-0.3 T PROTEIN (test code = 7779247787) 5.5 g/dL 6.3-8.2 L ALBUMIN (test code = 7812836317) 2.8 g/dL 3.5-5 L ALK PHOS (test code = 7178969110) 66 U/L 34-122 ALTv (test code = 1742-6) 30 U/L 5-35 AST(SGOT) (test code = 1914282205) 163 U/L 13-40 H Lab Interpretation (test code = Abnormal 24595-4) [facility] HospitalXR SHOULDER 2+ VW [id number] 10:30:08 Greater tuberosity fracture. EXAM: XR HIPS [...] and facetarthropathy with spondylosis are partially visualized. [facility], Radiant Results Inft User - [...] facetarthropathy with spondylosis are partially visualized.IMPRESSIONGreater tuberosity fracture.[facility] HospitalXR HIPS 2 VW [id number] 10:30:08 Greater tuberosity fracture. EXAM: XR HIPS [...] and facetarthropathy with spondylosis are partially visualized. [facility], Radiant Results Inft User - [...] partially visualized.IMPRESSIONGreater tuberosity fracture.[facility] WITH [id number] 09:30:00 Test Item Value Reference Range Interpretation [...] RDW-SD (test code = 49.7 fL 39-49.9 45463-0) RDW-CV (test code = 15.9 % 12-15.5 H 788-0) PLT (test code = See_Comment L [Automated 777-3) message] The sy stem which generated this result transmitted reference range : 166 - 358 10*3/ ?L. The reference r josias was not used to interpret this result as normal/abnormal . MPV (test code = 10.3 fL 9.5-12.9 74295-5) NRBC/100 WBC (test See_Comment [Automat ed code = 9892378389) message] The system which generated this result transmitted reference range : 0.0 - 10.0 /100 WBCs. The refer ence range was not u sed to interpret th is result as normal/abnormal . NRBC x10^3 (test code See_Comment [Auto mated = 3753929329) message] The s ystem which generated this result transmitted reference range : 10*3/?L. The reference range was not used to interpret this result as normal/abnormal . GRAN MAT (NEUT) % 85.4 % (test code = 770-8) IMM GRAN % (test code 0.80 % = 7190503299) LYMPH % (test code = 7.7 % 736-9) MONO % (test code = 5.8 % 5905-5) EOS % (test code = 0.2 % 713-8) BASO % (test code = 0.1 % 706-2) GRAN MAT x10^3(ANC) 9.49 10*3/uL 1.88-7.09 H (test code = 3679602316) IMM GRAN x10^3 (test 0.09 10*3/uL 0-0.06 H code = 8127286778) LYMPH x10^3 (test code 0.86 10*3/uL 1.32-3.29 L = 731-0) MONO x10^3 (test code 0.65 10*3/uL 0.33-0.92 = 742-7) EOS x10^3 (test code = <0.03 0.03-0.39 L 711-2) BASO x10^3 (test code <0.03 0.01-0.07 = 704-7) BANDS (test code = Increased A 5999867457) Lab Interpretation Abnormal (test code = 75147-2) [facility] HospitalMAGNESIUM2020-10-09 09:26:00 Test Item Value Reference Range Interpretation Comments MAGNESIUM (test code = 6808781510) 9.7 mg/dL 1.7-2.4 H Lab Interpretation (test code = Abnormal 40818-1) [facility] (NA, K, CL, CO2, GLUCOSE, BUN, CREATININE, CA)2020-05-21 09:13:00 Test Item Value Reference Range Interpretation Comments NA (test code = 132 mmol/L 135-145 L 9709572452) K (test code = 3.9 mmol/L 3.5-5 2809944624) CL (test code = 104 mmol/L 98-108 0667068658) CO2 TOTAL (test code = 15 mmol/L 23-31 L 6997824501) AGAP (test code = 2-16 5328236329) BUN (test code = 62 mg/dL 7-23 H 7781208070) GLUCOSE (test code = 114 mg/dL 70-110 H 6377203294) CREATININE (test code = 4.07 mg/dL 0.5-1.04 H 1460443140) CALCIUM (test code = 7.5 mg/dL 8.6-10.6 L 6129156299) eGFR Calculation mL/min/1.73m2 (Non-) (test code = 7186871509) eGFR Calculation mL/min/1.73m2 () (test code = 6130319169) SANDEEP (test code = SANDEEP) Association of [...] tests). Lab Interpretation Abnormal (test code = 98137-2) [facility] HospitalEDIE [id number] 09:13:00 Test Item Value Reference Range Interpretation Comments TROPONIN I (test 0.113 ng/mL See_Comment H [Automated code = 8043615092) message] The system which generated this result [...] ? Lab Interpretation Abnormal (test code = 79966-7) [facility] HospitalVITAMIN B12, [id number] 05:54:00 Test Item Value Reference Range Interpretation Comments VIT B12 (test code = 352 pg/mL 240-930 9055531190) SANDEEP (test code = SANDEEP) Biotin has been reported to cause a positive bias, interpret results relative to patient's use of biotin. Lab Interpretation (test Normal code = 11843-7) [facility] HospitalFOLATE2020-10-09 05:54:00 Test Item Value Reference Range Interpretation Comments FOLATE SER (test code = 3576970089) 9.5 ng/mL 3-20 Lab Interpretation (test code = Normal 13394-2) [facility] HospitalMAGNESIUM2020-10-09 04:48:00 Test Item Value Reference Range Interpretation Comments MAGNESIUM (test code = 6327269271) 1.7 mg/dL 1.7-2.4 Lab Interpretation (test code = Normal 65929-8) [facility] HospitalTHYROID STIMULATING [id number] 04:04:00 Test Item Value Reference Range Interpretation Comments TSH (test code = See_Comment [Automated message] 8504573452) The system [employer] generated this result transmitted ref erence range: 0.45 - 4 .70 mIU/L. The refe rence range was not u sed to interpret this result as normal/abnor mal. Lab Interpretation (test Normal code = 30204-8) [facility] HospitalCREATINE [id number] 03:33:00 Test Item Value Reference Range Interpretation Comments CK (test code = 1707058476) 6736 U/L 33-194 H Lab Interpretation (test code = Abnormal 65652-1) [facility] HospitalTROPONIN [id number] 02:39:00 Test Item Value Reference Range Interpretation Comments TROPONIN I (test 0.113 ng/mL See_Comment H [Automated code = 3661454082) message] The system which generated this result [...] ? Lab Interpretation Abnormal (test code = 65948-7) [facility] HospitalURINALYSIS2020-10-09 00:55:00 Test Item Value Reference Range Interpretation Comments APPEARANCE (test code = Cloudy Clear A 8395708882) COLOR (test code = Riri Yellow A 6133381467) PH (test code = 4.8-8.0 7256920727) SP GRAVITY (test code = 1.003-1.030 8467083711) GLU U QUAL (test code = 50 mg/dL Normal A 9679011728) BLOOD (test code = 3+ Negative A 8020515804) KETONES (test code = 5 mg/dL Negative A 3119781027) PROTEIN (test code = 100 mg/dL Negative A 2887-8) UROBILIN (test code = Normal Normal 6923963138) BILIRUBIN (test code = Negative Negative 3077335293) NITRITE (test code = Negative Negative 2240043377) LEUK SPIKE (test code = Negative Negative 1952203907) RBC/HPF (test code = See_Comment [Autom ated message] 1529045021) The system [employer] generated this result transmit nava reference range : 0 - 3 HPF. The refe rence range was not u sed to interpret th is result as normal/abnormal . WBC/HPF (test code = See_Comment [Autom ated message] 5827796200) The system [employer] generated this result transmit nava reference range : 0 - 5 HPF. The refe rence range was not u sed to interpret th is result as normal/abnormal . BACTERIA (test code = Few Negative A 6937151315) MUCOUS (test code = Moderate Negative LPF A 9859603937) SQ EPITH (test code = See_Comment H [Auto mated message] 7667118755) The system [employer] generated this result transmit nava reference range : <=2 HPF. The refere nce range was not u sed to interpret th is result as normal/abnormal . HYAL CAST (test code = See_Comment H [Aut omated message] 2904673003) The system [employer] generated this result transmit nava reference range : <=2 LPF. The refere nce range was not u sed to interpret th is result as normal/abnormal . Lab Interpretation (test Abnormal code = 94667-9) [facility] HospitalLIPASE2020-10-09 00:37:00 Test Item Value Reference Range Interpretation Comments LIPASE (test code = 0647706959) 3911 U/L 0-220 H Lab Interpretation (test code = Abnormal 97030-2) [facility] HospitalPROCALCITONIN2020-10-09 00:37:00 Test Item Value Reference Range Interpretation Comments Procalcitonin (test 4.99 ng/mL <0.07 H code = 7563951375) SANDEEP (test code = SANDEEP) INTERPRETATION OF [...] lung abscess/empyema. For further information please refer to:[email or web address] Lab Interpretation Abnormal (test code = 58371-7) [facility] HospitalMAGNESIUM2020-10-09 00:18:00 Test Item Value Reference Range Interpretation Comments MAGNESIUM (test code = 6977520124) 1.8 mg/dL 1.7-2.4 Lab Interpretation (test code = Normal 41339-9) [facility] HospitalPHOSPHORUS2020-10-09 00:18:00 Test Item Value Reference Range Interpretation Comments PHOSPHORUS (test code = 4539129176) 3.1 mg/dL 2.5-5 Lab Interpretation (test code = Normal 87502-4) [facility] HospitalBASIC METABOLIC PANEL (NA, K, CL, CO2, GLUCOSE, BUN, CREATININE, CA)2020-05-21 00:18:00 Test Item Value Reference Range Interpretation Comments NA (test code = 132 mmol/L 135-145 L 6964588187) K (test code = 4.2 mmol/L 3.5-5 6390332135) CL (test code = 103 mmol/L 98-108 5821360692) CO2 TOTAL (test code = 16 mmol/L 23-31 L 3128538356) AGAP (test code = 2-16 2536580305) BUN (test code = 66 mg/dL 7-23 H 8807471223) GLUCOSE (test code = 113 mg/dL 70-110 H 9230637076) CREATININE (test code = 5.17 mg/dL 0.5-1.04 H 7894279262) CALCIUM (test code = 7.2 mg/dL 8.6-10.6 L 1101689018) eGFR Calculation mL/min/1.73m2 (Non-) (test code = 7691601145) eGFR Calculation mL/min/1.73m2 () (test code = 9452764216) SANDEEP (test code = SANDEEP) Association of [...] tests). Lab Interpretation Abnormal (test code = 31841-8) [facility] HospitalD-[id number] 23:55:00 Test Item Value Reference Interpretation Comments Range D-DIMER (test code = See_Comment H [Autom ated 4308138132) message] The system which generated this result [...] diagnosis. Lab Interpretation Abnormal (test code = 02996-8) [facility] HospitalFIBRINOGEN2020-10-08 23:55:00 Test Item Value Reference Range Interpretation Comments Fibrinogen (test code = 5856643933) 389 mg/dL 167-453 Lab Interpretation (test code = Normal 43469-6) [facility] HospitalCREATININE, URINE [id number] 23:53:00 Test Item Value Reference Range Interpretation Comments CREAT U (test code = 3080665134) 101.7 mg/dL [facility] HospitalUREA NITROGEN, URINE [id number] 23:53:00 Test Item Value Reference Range Interpretation Comments UREA N UR (test code = 6529639413) 301 mg/dL [facility] HospitalCBC WITH [id number] 23:49:00 Test Item Value Reference Range Interpretation Comments WBC (test code = See_Comment [Automated 2490-2) message] The sy stem which generated this result transmitted reference range : 4.30 - 11.10 10*3/?L. The reference range was not used to interpret this result as normal/abnormal . RBC (test code = See_Comment L [Automated 754-8) message] The sy stem which generated this [...] RDW-SD (test code = 47.8 fL 39-49.9 58744-5) RDW-CV (test code = 15.8 % 12-15.5 H 788-0) PLT (test code = See_Comment L [Automated 777-3) message] The sy stem which generated this result transmitted reference range : 166 - 358 10*3/ ?L. The reference r josias was not used to interpret this result as normal/abnormal . MPV (test code = 9.6 fL 9.5-12.9 81419-2) NRBC/100 WBC (test See_Comment [Automat ed code = 4694123244) message] The system which generated this result transmitted reference range : 0.0 - 10.0 /100 WBCs. The refer ence range was not u sed to interpret th is result as normal/abnormal . NRBC x10^3 (test code See_Comment [Auto mated = 9268930781) message] The s ystem which generated this result transmitted reference range : 10*3/?L. The reference range was not used to interpret this result as normal/abnormal . GRAN MAT (NEUT) % 85.9 % (test code = 770-8) IMM GRAN % (test code 1.10 % = 5463839838) LYMPH % (test code = 7.3 % 736-9) MONO % (test code = 5.6 % 5905-5) EOS % (test code = 0.0 % 713-8) BASO % (test code = 0.1 % 706-2) GRAN MAT x10^3(ANC) 8.16 10*3/uL 1.88-7.09 H (test code = 6737261023) IMM GRAN x10^3 (test 0.10 10*3/uL 0-0.06 H code = 8702165213) LYMPH x10^3 (test code 0.69 10*3/uL 1.32-3.29 L = 731-0) MONO x10^3 (test code 0.53 10*3/uL 0.33-0.92 = 742-7) EOS x10^3 (test code = <0.03 0.03-0.39 L 711-2) BASO x10^3 (test code <0.03 0.01-0.07 = 704-7) Lab Interpretation Abnormal (test code = 16198-4) [facility] HospitalXR CHEST 1 [id number] 23:46:21 Bilateral interstitial prominence most prominent within [...] this study and agree with theabove report. [facility] HospitalCentral [id number] 23:30:25Emmanuelle Melgar DO ? ? 05/20/2020 ?6:30 [...] tolerance of procedure: ?Tolerated well, no immediate complicationsUnDoctors Hospital at RenaissanceN-TERMINAL PRO-BNP 2020-05-20 23:28:00 Test Item Value Reference Range Interpretation Comments NT-proBNP (test code 83153 pg/mL See_Comment H [Autom ated = 4911475338) message] The system which generated this result transmitted reference range : <=125. The reference range was not used to interpret this result as normal/abnormal . SANDEEP (test code = SANDEEP) Biotin has been reported to cause a negative bias, interpret results relative to patient's use of biotin. Lab Interpretation Abnormal (test code = 39263-7) [facility] VENOUS BLOOD [id number] 23:13:00 Test Item Value Reference Range Interpretation Comments PH (test code = 7.32-7.42 LL 4232549358) PCO2 MASTER (test code = See_Comment [Auto mated message] 3870395107) The system [employer] generated this result transmitted ref erence range: 41 - 51 mmHg. The reference r josias was not used to interpret this result as normal/abnor mal. PO2 MASTER (test code = See_Comment H [Autom ated message] 0475126912) The system [employer] generated this result transmitted ref erence range: 25 - 40 mmHg. The reference r josias was not used to interpret this result as normal/abnor mal. HCO3 MASTER (test code = See_Comment L [Auto mated message] 5176539766) The system [employer] generated this result transmitted ref erence range: 24 - 28 mEq/L. The reference r josias was not used to interpret this result as normal/abnor mal. AC VBE(BEAKER) (test mEq/L code = 1473643957) Lab Interpretation (test Abnormal code = 34677-9) [facility] HospitalDrug Screen [id number] 22:50:00 Test Item Value Reference Range Interpretation Comments AMPHET (test code = Negative Negative 3588660787) Cocaine Metabolite (test Negative Negative code = 1675625451) OPIATES (test code = Negative Negative 9156252390) THC (test code = Negative Negative 2356918608) SANDEEP (test code = SANDEEP) Urine Drug Cutoff Ranges Amphetamine: ? 1,000 ng/mLCocaine: ? 150 ng/mLOpiates: ? 300 ng/mLCannabinoids: ?50 ng/mL The results are to be used only for medical (i.e., treatment) purposes. Unconfirmed screening results must not be used for non-medical purposes (e.g., employment testing, legal testing). Lab Interpretation (test Normal code = 40959-1) [facility] HospitalLactic Acid Whole [id number] 21:52:00 Test Item Value Reference Range Interpretation Comments LACTIC ACID (test code = 1.91 mmol/L 9040896446) [facility] HospitalEthanol [id number] 21:21:00 Test Item Value Reference Range Interpretation Comments ALCOHOL (test code = <10 mg/dL 3130887864) SANDEEP (test code = Toxic Greater than or SANDEEP) equal to 80 mg/dL. NOTE: Whole blood values are approximately 10% to 15% lower than serum and plasma. [facility] HospitalCOVID-19 (ID NOW RAPID TESTING)2020-05-20 20:58:00 Test Item Value Reference Range Interpretation Comments SARS-CoV-2 Rapid ID NOW Not Detected Not Detected (test code = 60611-6) SANDEPE (test code = SANDEEP) ID NOW COVID-19 Assay is an isothermal nucleic acid amplification test intended for the qualitative detection of nucleic acid from SARS-CoV-2 viral RNA in nasopharyngeal (PATROL OFFICER) specimens. It is used under Emergency Use [...] indicated. Lab Interpretation Normal (test code = 76957-5) [facility] HospitalCT STROKE HEAD WO [id number] 20:47:16 Mild asymmetry in the cerebral sulci [...] reviewed this study and agree with theabove report.[facility] HospitalTrm[facility] I - Code [id number] 20:20:00 Test Item Value Reference Range Interpretation Comments TROPONIN I (test 0.136 ng/mL See_Comment H [Automated code = 1157326853) message] The system which generated this result [...] ? Lab Interpretation Abnormal (test code = 42759-9) [facility] HospitalBasi Metabolic Panel (NA, K, CL, CO2, Glucose, BUN, Creatinine, CA) - Code [id number] 20:09:00 Test Item Value Reference Range Interpretation Comments NA (test code = 126 mmol/L 135-145 L 7377061886) K (test code = 5.7 mmol/L 3.5-5 H Slight 7048775724) hemolysis CL (test code = 92 mmol/L 98-108 L 9411496778) CO2 TOTAL (test code 13 mmol/L 23-31 L = 4622811961) AGAP (test code = 2-16 H 1258628063) BUN (test code = 74 mg/dL 7-23 H Slight 6844586672) hemolysis GLUCOSE (test code = 175 mg/dL 70-110 H 7454313593) CREATININE (test code 6.72 mg/dL 0.5-1.04 H = 4071871588) CALCIUM (test code = 8.9 mg/dL 8.6-10.6 0072525713) eGFR Calculation mL/min/1.73m2 (Non-) (test code = 9154030178) eGFR Calculation mL/min/1.73m2 () (test code = 1792834976) SANDEEP (test code = SANDEEP) Association of [...] tests). Lab Interpretation Abnormal (test code = 84127-2) [facility] HospitalProthrombin Time / INR - Code [id number] 20:06:00 Test Item Value Reference Range Interpretation Comments PROTIME PATIENT (test See_Comment L [Auto mated message] code = 5964-2) The system [email or web address] generated this result transmitted ref erence range: 10.1 - 1 2.6 Seconds. The reference range was not used to int erpret this result as normal/abnormal . INR (test code = 6301-6) Nor mal INR <1.1; Warfarin Therap eutic range 2.0 to 3. 0 or 2.5 to 3.5, dep ending upon the indica tions. Lab Interpretation (test Abnormal code = 97805-7) [facility] HospitalaPTT2020-10-08 20:05:00 Test Item Value Reference Range Interpretation Comments APTT Patient (test code = See_Comment [ Automated message] 3173-2) The system [employer] generated this result transmitted ref erence range: 26 - 36 Seconds. The re ference range was not u sed to interpret this result as normal/abnor mal. Lab Interpretation (test Normal code = 00664-2) [facility] without Diff - Code [id number] 19:57:00 Test Item Value Reference Range Interpretation Comments WBC (test code = 6690-2) See_Comment H [A utomated message] The system [employer] generated this result transmit nava reference range : 4.30 - 11.10 10*3/?L. The reference range was not used to interpret this result as normal/abnormal . RBC (test code = 789-8) See_Comment [Au tomated message] The system [employer] generated this result transmit nava reference range [...] See_Comment L [Au tomated message] The system [employer] generated this result transmit nava reference range : 166 - 358 10*3/?L. The reference range was not used to interpret this result as normal/abnormal . MPV (test code = 10.9 fL 9.5-12.9 01064-7) RDW-CV (test code = 15.9 % 12-15.5 H 788-0) RDW-SD (test code = 48.2 fL 39-49.9 56432-4) NRBC x10^3 (test code = See_Comment [Au tomated message] 3240682091) The system whic h generated this result transmit nava reference range : 10*3/?L. The reference range was not used to interpret this result as normal/abnormal . NRBC/100 WBC (test code See_Comment [Au tomated message] = [id number]) The system Widemile ch generated this result transmit nava reference range : 0.0 - 10.0 /100 WBC s. The reference r josias was not used to interpret this result as normal/abnormal . IPF % (test code = 1672530409) Lab Interpretation (test Abnormal code = 63912-9) [facility] 19:54:00 Test Item Value Reference Range Interpretation Comments POCT GLU (test code = 8970057289) 192 mg/dL 70-110 H Lab Interpretation (test code = Abnormal 02041-3) [facility] 1 VIEW [id number] 08:21:00 Reason for exam:->nauseaIs the patient ?->NoFINAL [...] MDReport Verified Date/Time: 10/14/2018 08:21:37 Reading Location: [facility] Radiology Reading Room CBC W/PLT COUNT & AUTO [id number] 08:18:00 Test Item Value Reference Range Interpretation [...] Received comment: User comments: Slide comments:BASIC METABOLIC [id number] 06:23:00 Test Item Value Reference Range Interpretation [...] S NOT APPLICABLE FOR DIALYSIS PATIEN TS. [id number] 09:49:00 Test Item Value Reference Range Interpretation Comments LIPASE (BEAKER) (test code = 749) 37 U/L 8-78 HEPATIC FUNCTION [id number] 09:49:00 Test Item Value Reference Range Interpretation [...] Differential performed on an albumin smear.BASIC METABOLIC [id number] 03:40:00 Test Item Value Reference Range Interpretation [...] PATIEN TS. CBC W/PLT COUNT & AUTO [id number] 03:00:00 Test Item Value Reference Range Interpretation [...] 0-0 (BEAKER) (test code = 413) POCT-GLUCOSE [id number] 21:19:00 Test Item Value Reference Range Interpretation Comments POC-GLUCOSE METER 216 mg/dL 70-110 H TESTED AT [facility] 67 ([facility]) (test code = RODOLFO [place] 1538) [address] POCT-GLUCOSE [id number] 12:46:00 Test Item Value Reference Range Interpretation Comments POC-GLUCOSE METER 174 mg/dL 70-110 H TESTED AT [facility] 6720 ([facility]) (test code = RODOLFO Pitts [facility] 1538) [address] RAD, ABDOMEN/KUB, 1 VIEW [id number] 10:26:00Reason for exam:->abd distension, eval for obstruction/ileusIs [...] MDReport Verified Date/Time: 10/12/2018 10:26:01 Reading Location: [facility] B1 C013Y CT Body Reading Room CBC W/PLT COUNT & AUTO [id number] 09:45:00 Test Item Value Reference Range Interpretation [...] 3438) Received comment: User comments: Slide comments:POCT-GLUCOSE [id number] 07:56:00 Test Item Value Reference Range Interpretation Comments POC-GLUCOSE METER 213 mg/dL 70-110 H TESTED AT [facility] 6720 (BEAKER) (test code = [place] 1538) [address] BASIC METABOLIC [id number] 07:38:00 Test Item Value Reference Range Interpretation [...] NOT APPLICABLE FOR DIALYSIS PATIEN TS. POCT-GLUCOSE [id number] 18:35:00 Test Item Value Reference Range Interpretation Comments POC-GLUCOSE METER 196 mg/dL 70-110 H TESTED AT [place] [address] [facility] (test code = RODOLFO Pitts [facility] 1538) [address] POCT-GLUCOSE [id number] 12:01:00 Test Item Value Reference Range Interpretation Comments POC-GLUCOSE METER 184 mg/dL 70-110 H TESTED AT [place] [address] ([facility] (test code = DANIELND Gisselle [facility] 1538) [address] POCT-GLUCOSE [id number] 08:12:00 Test Item Value Reference Range Interpretation Comments POC-GLUCOSE METER 215 mg/dL 70-110 H TESTED AT [place] [address] ([facility]) (test code = [facility] Gisselle [facility] 1538) [address] BASIC METABOLIC [id number] 06:51:00 Test Item Value Reference Range Interpretation [...] PATIEN TS. CBC W/PLT COUNT & AUTO [id number] 06:15:00 Test Item Value Reference Range Interpretation [...] PERCENT (BEAKER) (test code = 2801) POCT-GLUCOSE [id number] 22:53:00 Test Item Value Reference Range Interpretation Comments POC-GLUCOSE METER 207 mg/dL 70-110 H TESTED AT [facility] (test code = RODOLFO Pitts [facility] 1538) [address] RAD, CHEST, 1 VIEW, NON [id number] 22:32:00Reason for exam:->coughShould this be performed at [...] Fox Verified Date/Time: 10/10/2018 22:32:10 Reading Location: [facility] POCT-GLUCOSE [id number] 22:05:00 Test Item Value Reference Range Interpretation Comments POC-GLUCOSE METER 202 mg/dL 70-110 H TESTED AT [facility] 67[facility] (test code = RODOLFO Pitts [facility] 1538) [address] RESPIRATORY PANEL [id number] 13:26:00 Test Item Value Reference Range Interpretation [...] decisions. This sample was tested at the [facility] Molecular Diagnostics Laboratory using the [employer] FilmArray Respiratory Panel. It is FDA cleared and has been verified and approved by the [facility] for clinical use on nasal swab specimens. It is not FDA-cleared for use on bronchial wash/lavage samples. However, for this sample type, validation was performed and test characteristics were determined and approved, by [facility] for clinical use under the Clinical Laboratory Improvement Amendments (CLIA) of 1988 requirements. Therefore, FDA clearance isnot required. This laboratory is CLIA- certified and [employer] (CAP)-accredited to perform high complexity testing.POCT-GLUCOSE [id number] 11:47:00 Test Item Value Reference Range Interpretation Comments POC-GLUCOSE METER 163 mg/dL 70-110 H TESTED AT [facility] 9870 ([place]) (test code = [place] 1538) [address] POCT-GLUCOSE [id number] 08:34:00 Test Item Value Reference Range Interpretation Comments POC-GLUCOSE METER 141 mg/dL 70-110 H TESTED AT [facility] 6720 (BEAKER) (test code = [place] 1538) [address] BASIC METABOLIC [id number] 06:51:00 Test Item Value Reference Range Interpretation [...] PATIEN TS. CBC W/PLT COUNT & AUTO [id number] 06:35:00 Test Item Value Reference Range Interpretation [...] PERCENT (BEAKER) (test code = 2801) POCT-GLUCOSE [id number] 21:25:00 Test Item Value Reference Range Interpretation Comments POC-GLUCOSE METER 199 mg/dL 70-110 H TESTED AT [facility] 6720 (BEAKER) (test code = RODOLFO [place] 1538) [address] BLOOD [id number] 19:00:00 Test Item Value Reference Range Interpretation Comments CULTURE (BEAKER) (test No growth in 5 days code = 1095) BLOOD [id number] 19:00:00 Test Item Value Reference Range Interpretation Comments CULTURE (BEAKER) (test No growth in 5 days code = 1095) POCT-GLUCOSE [id number] 18:16:00 Test Item Value Reference Range Interpretation Comments POC-GLUCOSE METER 149 mg/dL 70-110 H TESTED AT [facility] 6720 (BEAKER) (test code = RODOLFO [place] 1538) [address] OVA AND PARASITE [id number] 08:39:00 Test Item Value Reference Range Interpretation Comments CONCENTRATE SMEAR - No ova or parasites No ova or parasites O\\T\\P (BEAKER) (test seen seen code = 247) TRICHROME SMEAR - No ova or parasites No ova or parasites O\\T\\P (BEAKER) (test seen seen code = 248) POCT-GLUCOSE [id number] 07:38:00 Test Item Value Reference Range Interpretation Comments POC-GLUCOSE METER 169 mg/dL 70-110 H TESTED AT [facility] 6720 (BEAKER) (test code = RODOLFO Pitts [facility] 1538) [address] BASIC METABOLIC [id number] 05:07:00 Test Item Value Reference Range Interpretation [...] PATIEN TS. CBC W/PLT COUNT & AUTO [id number] 04:51:00 Test Item Value Reference Range Interpretation [...] PERCENT (BEAKER) (test code = 2801) POCT-GLUCOSE [id number] 20:27:00 Test Item Value Reference Range Interpretation Comments POC-GLUCOSE METER 200 mg/dL 70-110 H TESTED AT [facility] 6720 (BEAKER) (test code = [facility] 1538) [address] POCT-GLUCOSE [id number] 17:20:00 Test Item Value Reference Range Interpretation Comments POC-GLUCOSE METER 242 mg/dL 70-110 H TESTED AT [facility] 67 (BEAKER) (test code = [facility] 1538) [address] POCT-GLUCOSE [id number] 13:03:00 Test Item Value Reference Range Interpretation Comments POC-GLUCOSE METER 146 mg/dL 70-110 H TESTED AT [place] [address] (BEAKER) (test code = [facility] 1538) [address] POCT-GLUCOSE [id number] 08:06:00 Test Item Value Reference Range Interpretation Comments POC-GLUCOSE METER 150 mg/dL 70-110 H TESTED AT [place] [address] (BEAKER) (test code = [facility] 1538) [address] [id number] 04:31:00 Test Item Value Reference Range Interpretation Comments PHOSPHORUS (BEAKER) (test code = 3.4 mg/dL 2.3-4.7 604) [id number] 04:31:00 Test Item Value Reference Range Interpretation Comments MAGNESIUM (BEAKER) (test code = 2.1 mg/dL 1.6-2.6 627) BASIC METABOLIC [id number] 04:31:00 Test Item Value Reference Range Interpretation [...] PATIEN TS. CBC W/PLT COUNT & AUTO [id number] 04:15:00 Test Item Value Reference Range Interpretation [...] 0-1 PERCENT (BEAKER) (test code = 2801) [id number] 15:17:00 Test Item Value Reference Range Interpretation Comments POTASSIUM (BEAKER) (test code = 4.5 meq/L 3.5-5.1 379) [id number] 15:17:00 Test Item Value Reference Range Interpretation Comments MAGNESIUM (BEAKER) (test code = 2.3 mg/dL 1.6-2.6 627) [id number] 15:17:00 Test Item Value Reference Range Interpretation Comments PHOSPHORUS (BEAKER) (test code = 2.5 mg/dL 2.3-4.7 604) HEMOGLOBIN AND [id number] 14:53:00 Test Item Value Reference Range Interpretation Comments HEMOGLOBIN (BEAKER) (test code = 14.4 GM/DL 11.2-15.7 410) HEMATOCRIT (BEAKER) (test code = 44.9 % 34.1-44.9 411) [id number] 09:39:00 Test Item Value Reference Range Interpretation Comments POTASSIUM (BEAKER) (test code = 3.7 meq/L 3.5-5.1 379) [id number] 09:39:00 Test Item Value Reference Range Interpretation Comments MAGNESIUM (BEAKER) (test code = 2.4 mg/dL 1.6-2.6 627) RAD, CHEST, 1 VIEW, NON [id number] 08:09:00Reason for exam:->pulm edemaShould this be performed [...] Location: [facility] Reading Room POCT-GLUCOSE [id number] 06:00:00 Test Item Value Reference Range Interpretation Comments POC-GLUCOSE METER 111 mg/dL 70-110 H TESTED AT [facility] 6720 (BEAKER) (test code = [place] 1538) [address] [id number] 05:22:00 Test Item Value Reference Range Interpretation Comments PHOSPHORUS (BEAKER) (test code = 2.9 mg/dL 2.3-4.7 604) [id number] 05:22:00 Test Item Value Reference Range Interpretation Comments MAGNESIUM (BEAKER) (test code = 2.4 mg/dL 1.6-2.6 627) BASIC METABOLIC [id number] 05:22:00 Test Item Value Reference Range Interpretation [...] PATIEN TS. CBC W/PLT COUNT & AUTO [id number] 05:03:00 Test Item Value Reference Range Interpretation [...] 0-1 PERCENT (BEAKER) (test code = 2801) [id number] 00:55:00 Test Item Value Reference Range Interpretation Comments POTASSIUM (BEAKER) (test code = 3.6 meq/L 3.5-5.1 379) [id number] 00:55:00 Test Item Value Reference Range Interpretation Comments MAGNESIUM (BEAKER) (test code = 2.0 mg/dL 1.6-2.6 627) POCT-GLUCOSE [id number] 00:32:00 Test Item Value Reference Range Interpretation Comments POC-GLUCOSE METER 125 mg/dL 70-110 H TESTED AT [facility] 6720 (BEAKER) (test code = RODOLFO [place] 1538) [address] POCT-GLUCOSE [id number] 20:19:00 Test Item Value Reference Range Interpretation Comments POC-GLUCOSE METER 209 mg/dL 70-110 H TESTED AT [facility] 6720 (BEAKER) (test code = RODOLFO [place] 1538) [address] [id number] 16:56:00 Test Item Value Reference Range Interpretation Comments PHOSPHORUS (BEAKER) (test code = 1.2 mg/dL 2.3-4.7 LL 604) [id number] 16:52:00 Test Item Value Reference Range Interpretation Comments POTASSIUM (BEAKER) (test code = 3.6 meq/L 3.5-5.1 379) [id number] 16:52:00 Test Item Value Reference Range Interpretation Comments MAGNESIUM (BEAKER) (test code = 2.3 mg/dL 1.6-2.6 627) HEMOGLOBIN AND [id number] 16:35:00 Test Item Value Reference Range Interpretation Comments HEMOGLOBIN (BEAKER) (test code = 12.6 GM/DL 11.2-15.7 410) HEMATOCRIT (BEAKER) (test code = 37.7 % 34.1-44.9 411) C. DIFFICILE GDH [id number] 16:20:00 Test Item Value Reference Range Interpretation Comments CDT TOXIN (test code Negative Negative = [id number]) CDT GDH ANTIGEN Positive Negative A C. difficile present but (test code = toxin not detec nava. [id number]) Indicates colon ization with non-toxige vijay strain [...] of kit performance was done by the [facility] Microbiology Lab prior to clinical use.[id number] 12:30:00 Test Item Value Reference Range Interpretation Comments POTASSIUM (BEAKER) (test code = 3.4 meq/L 3.5-5.1 L 379) Check Serum Potassium level 2 hours after oral potassium replacement completed or 30 min after intravenous potassium replacement.POCT-GLUCOSE [id number] 12:11:00 Test Item Value Reference Range Interpretation Comments POC-GLUCOSE METER 183 mg/dL 70-110 H TESTED AT [facility] 67 ([facility]) (test code = RODOLFO [place] 1538) [address] RAD, CHEST, 1 VIEW, NON [id number] 08:17:00Reason for exam:->pulm edemaShould this be performed at the bedside?->YesFINAL REPORT Chest, one view History: Pulmonary edema Comparison: 10/05/2018 Fi ndings:Clear lungs. Normal size heart. No pleural effusion or pneumothorax. Impression:No acute findings in the chest Signed: Mehul Crowdereport Verified Date/Time: 10/06/2018 08:17:06 Reading Location: [address] Consult Reading Room POCT-GLUCOSE [id number] 05:51:00 Test Item Value Reference Range Interpretation Comments POC-GLUCOSE METER 129 mg/dL 70-110 H TESTED AT [facility] 67 ([employer]) (test code = RODOLFO Pitts [facility] 1538) [address] [id number] 05:17:00 Test Item Value Reference Range Interpretation Comments PHOSPHORUS (BEAKER) (test code = 1.3 mg/dL 2.3-4.7 LL 604) BASIC METABOLIC [id number] 05:14:00 Test Item Value Reference Range Interpretation [...] S NOT APPLICABLE FOR DIALYSIS PATIEN TS. [id number] 05:06:00 Test Item Value Reference Range Interpretation Comments MAGNESIUM (BEAKER) (test code = 2.2 mg/dL 1.6-2.6 627) CBC W/PLT COUNT & AUTO [id number] 04:37:00 Test Item Value Reference Range Interpretation [...] PERCENT (BEAKER) (test code = 2801) POCT-GLUCOSE [id number] 00:13:00 Test Item Value Reference Range Interpretation Comments POC-GLUCOSE METER 143 mg/dL 70-110 H TESTED AT [facility] 6720 ([facility]) (test code = [facility] 1538) [address] TROPONIN [id number] 20:52:00 Test Item Value Reference Range Interpretation Comments TROPONIN I ([facility]) (test code = 0.91 ng/mL 0.00-0.03 [...] 0.5-2.2 (test code = 2872) HEMOGLOBIN AND [id number] 20:08:00 Test Item Value Reference Range Interpretation Comments HEMOGLOBIN (BEAKER) (test code = 12.3 GM/DL 11.2-15.7 410) HEMATOCRIT (BEAKER) (test code = 37.4 % 34.1-44.9 411) HEMOGLOBIN AND [id number] 13:24:00 Test Item Value Reference Range Interpretation Comments HEMOGLOBIN (BEAKER) (test code = 11.8 GM/DL 11.2-15.7 410) HEMATOCRIT (BEAKER) (test code = 35.8 % 34.1-44.9 411) [id number] 12:51:00 Test Item Value Reference Range Interpretation Comments FERRITIN (BEAKER) (test code = 361) 155 ng/mL 5-275 POCT-GLUCOSE [id number] 12:20:00 Test Item Value Reference Range Interpretation Comments POC-GLUCOSE METER 154 mg/dL 70-110 H TESTED AT [facility] 6720 (BEAKER) (test code = [place] 1532) [address] IRON, TIBC, % SAT. (WITHOUT FERRITIN)2018-10-05 10:36:00 Test Item Value Reference Range Interpretation Comments IRON (BEAKER) (test code = 547) 41.0 ug/dL 40.0-160.0 TOTAL IRON BINDING CAPACITY 185 ug/dL 250-450 L (BEAKER) (test code = 769) IRON % SATURATION (2) (BEAKER) 22 % 20-55 (test code = 2590) HEMOGLOBIN [id number] 10:31:00 Test Item Value Reference Range Interpretation Comments HEMOGLOBIN A1C (BEAKER) (test code = 4.7 % 4.3-6.1 368) VITAMIN [id number] 09:05:00 Test Item Value Reference Range Interpretation Comments VITAMIN B12 (BEAKER) (test code = 885 pg/mL 213-816 H 774) POCT-GLUCOSE [id number] 07:16:00 Test Item Value Reference Range Interpretation Comments POC-GLUCOSE METER 152 mg/dL 70-110 H TESTED AT [facility] 6720 (BEAKER) (test code = [place] 1538) [address] RAD, CHEST, 1 VIEW, NON [id number] 06:56:00Reason for exam:->pulm edemaShould this be performed at the bedside?->YesFINAL REPORT RAD, CHEST, 1 VIEW, NON DEPT INDICATION: pulm edema COMPARISON: Prior day's exam FINDINGS: Portable frontal view of the chest. IMPRESSION: Lungs and pleura: Unchanged airspace and pleural opacities. No pneumothorax.Heart and mediastinum: Stable contours. Additional findings: None. Signed: Lisa Mcgovern Verified Date/Time: 10/05/2018 06:56:36 Reading Location: [address] Transitional Reading Room TROPONIN [id number] 06:09:00 Test Item Value Reference Range Interpretation [...] acute neurological disease, and persistent tachyarrhythmia.BASIC METABOLIC [id number] 05:51:00 Test Item Value Reference Range Interpretation [...] S NOT APPLICABLE FOR DIALYSIS PATIEN TS. [id number] 05:20:00 Test Item Value Reference Range Interpretation Comments PHOSPHORUS (BEAKER) (test code = 2.2 mg/dL 2.3-4.7 L 604) [id number] 05:20:00 Test Item Value Reference Range Interpretation Comments MAGNESIUM (BEAKER) (test code = 1.8 mg/dL 1.6-2.6 627) HEMOGLOBIN AND [id number] 05:01:00 Test Item Value Reference Range Interpretation Comments HEMOGLOBIN (BEAKER) (test code = 11.4 GM/DL 11.2-15.7 410) HEMATOCRIT (BEAKER) (test code = 34.4 % 34.1-44.9 411) CBC W/PLT COUNT & AUTO [id number] 04:58:00 Test Item Value Reference Range Interpretation [...] PERCENT (BEAKER) (test code = 2801) TROPONIN [id number] 01:17:00 Test Item Value Reference Range Interpretation [...] acute neurological disease, and persistent tachyarrhythmia.HEMOGLOBIN AND [id number] 00:52:00 Test Item Value Reference Range Interpretation Comments HEMOGLOBIN (BEAKER) (test code = 12.1 GM/DL 11.2-15.7 410) HEMATOCRIT (BEAKER) (test code = 36.4 % 34.1-44.9 411) POCT-GLUCOSE [id number] 00:34:00 Test Item Value Reference Range Interpretation Comments POC-GLUCOSE METER 164 mg/dL 70-110 H TESTED AT [facility] 6720 (BEAKER) (test code = [place] 1538) [address] TROPONIN [id number] 22:08:00 Test Item Value Reference Range Interpretation [...] failure, acidosis, acute neurological disease, and persistent tachyarrhythmia.[id number] 21:56:00 Test Item Value Reference Range Interpretation Comments PHOSPHORUS (BEAKER) (test code = 2.1 mg/dL 2.3-4.7 L 604) [id number] 21:56:00 Test Item Value Reference Range Interpretation Comments MAGNESIUM (BEAKER) (test code = 2.1 mg/dL 1.6-2.6 627) BASIC METABOLIC [id number] 21:56:00 Test Item Value Reference Range Interpretation [...] S NOT APPLICABLE FOR DIALYSIS PATIEN TS. [id number] 21:56:00 Test Item Value Reference Range Interpretation Comments PHOSPHORUS (BEAKER) (test code = 2.1 mg/dL 2.3-4.7 L 604) [id number] 21:56:00 Test Item Value Reference Range Interpretation Comments MAGNESIUM (BEAKER) (test code = 2.1 mg/dL 1.6-2.6 627) BASIC METABOLIC [id number] 21:56:00 Test Item Value Reference Range Interpretation [...] APPLICABLE FOR DIALYSIS PATIEN TS. BLOOD GAS, [id number] 21:46:00 Test Item Value Reference Range Interpretation [...] (test code = 1819) 100.0 % CALCIUM, [id number] 21:46:00 Test Item Value Reference Range Interpretation Comments CALCIUM IONIZED (BEAKER) (test 1.10 mmol/L 1.12-1.27 L code = 698) PH, BLOOD (BEAKER) (test code = 7.39 1810) URINALYSIS W/ REFLEX URINE [id number] 20:34:00 Test Item Value Reference Range Interpretation [...] (test code = 2795) TSH/FREE T4 IF [id number] 19:24:00 Test Item Value Reference Range Interpretation Comments THYROID STIMULATING HORMONE 0.79 uIU/mL 0.35-4.94 (BEAKER) (test code = 772) BASIC METABOLIC [id number] 18:15:00 Test Item Value Reference Range Interpretation [...] DIALYSIS PATIEN TS. LACTIC ACID, VENOUS, WHOLE [id number] 18:13:00 Test Item Value Reference Range Interpretation Comments LACTATE BLOOD VENOUS (2) (BEAKER) 1.0 mmol/L 0.5-2.2 (test code = 2872) [id number] 18:08:00 Test Item Value Reference Range Interpretation Comments AMMONIA (BEAKER) (test code = 348) 33 mol/L 18-72 HEMOGLOBIN AND [id number] 18:02:00 Test Item Value Reference Range Interpretation Comments HEMOGLOBIN (BEAKER) (test code = 12.2 GM/DL 11.2-15.7 410) HEMATOCRIT (BEAKER) (test code = 37.2 % 34.1-44.9 411) TROPONIN [id number] 17:28:00 Test Item Value Reference Range Interpretation [...] mmol/L 0.5-2.2 (test code = 2872) POCT-GLUCOSE [id number] 16:55:00 Test Item Value Reference Range Interpretation Comments POC-GLUCOSE METER 186 mg/dL 70-110 H TESTED AT [facility] 6720 (BEAKER) (test code = [place] 1538) [address] KETONE, [id number] 15:19:00 Test Item Value Reference Range Interpretation Comments KETONES, BLOOD (BEAKER) (test code 1.0 mmol/L <0.4 H = 1103) [id number] 15:19:00 Test Item Value Reference Range Interpretation Comments PHOSPHORUS (BEAKER) (test code = 604) < mg/dL 2.3-4.7 LL RAD, CHEST, 1 VIEW, NON [id number] 15:17:00Post-intubationReason for exam:- >SHOTNESS OF BREATH, R/O [...] Verified Date/Time: 10/04/2018 15:17:58 Reading Location: [address] Radiology Reading Room OSMOLALITY, [id number] 15:16:00 Test Item Value Reference Range Interpretation Comments OSMOLALITY, SERUM (BEAKER) (test 291 mOsm/kg 275-295 code = 615) LIPID [id number] 15:15:00 Test Item Value Reference Range Interpretation [...] 100-129 Borderline 130-159 High 160-189 Very High [id number] 15:15:00 Test Item Value Reference Range Interpretation Comments LIPASE (BEAKER) (test code = 749) 338 U/L 8-78 H [id number] 15:13:00 Test Item Value Reference Range Interpretation Comments MAGNESIUM (BEAKER) (test code = 1.3 mg/dL 1.6-2.6 L 627) LACTIC ACID, VENOUS, WHOLE [id number] 15:10:00 Test Item Value Reference Range Interpretation Comments LACTATE BLOOD VENOUS (2) (BEAKER) 1.2 mmol/L 0.5-2.2 (test code = 2872) CBC W/PLT COUNT & AUTO [id number] 15:06:00 Test Item Value Reference Range Interpretation [...] (BEAKER) (test code = 2801) OXYGEN SATURATION, [id number] 14:59:00 Test Item Value Reference Range Interpretation Comments O2 SATURATION (MEASURED) (BEAKER) 69.6 % (test code = 1455) FEMORAL LINEBLOOD GAS, [id number] 14:51:00 Test Item Value Reference Range Interpretation [...] (test code = 1819) 30.0 % TROPONIN [id number] 13:55:00 Test Item Value Reference Range Interpretation [...] (BEAKER) (test code = 700) COMPREHENSIVE METABOLIC [id number] 13:45:00 Test Item Value Reference Range Interpretation [...] DIALYSIS PATIEN TS. LACTIC ACID, VENOUS, WHOLE [id number] 13:41:00 Test Item Value Reference Range Interpretation Comments LACTATE BLOOD VENOUS (2) (BEAKER) 1.3 mmol/L 0.5-2.2 (test code = 2872) [id number] 13:39:00 Test Item Value Reference Range Interpretation Comments PARTIAL THROMBOPLASTIN TIME 30.3 seconds 22.5-36.0 (BEAKER) (test code = 760) [id number] 13:39:00 Test Item Value Reference Range Interpretation Comments FIBRINOGEN LEVEL (BEAKER) (test 284 mg/dl 225-434 code = 658) PROTHROMBIN [id number] 13:38:00 Test Item Value Reference Range Interpretation Comments PROTIME (BEAKER) (test code = 13.4 seconds 11.7-14.7 759) INR (BEAKER) (test code = 370) 1.0 <=5.9 RECOMMENDED COUMADIN/WARFARIN INR THERAPY RANGESSTANDARD DOSE: 2.0 - 3.0 Includes: PROPHYLAXIS forvenous thrombosis, systemic embolization; TREATMENT for venous thrombosis and/or pulmonary embolus.HIGH RISK: Target INR is 2.5-3.5 for patients with mechanical heart valves.POCT-GLUCOSE [id number] 18:40:00 Test Item Value Reference Range Interpretation Comments POC-GLUCOSE METER 148 mg/dL 70-110 H TESTED AT [facility] 6720 [facility] (test code = [place] 1538) [address] POCT-GLUCOSE [id number] 07:43:00 Test Item Value Reference Range Interpretation Comments POC-GLUCOSE METER 112 mg/dL 70-110 H TESTED AT [facility] 6720 [facility] (test code = [place] 1538) [address] [id number] 07:13:00 Test Item Value Reference Range Interpretation Comments MAGNESIUM (BEAKER) (test code = 1.4 mg/dL 1.6-2.6 L 627) BASIC METABOLIC [id number] 07:13:00 Test Item Value Reference Range Interpretation [...] NOT APPLICABLE FOR DIALYSIS PATIEN TS. POCT-GLUCOSE [id number] 22:09:00 Test Item Value Reference Range Interpretation Comments POC-GLUCOSE METER 161 mg/dL 70-110 H TESTED AT [facility] 6720 ([facility]) (test code = [facility] [place] [facility] 1538) [address] POCT-GLUCOSE [id number] 17:46:00 Test Item Value Reference Range Interpretation Comments POC-GLUCOSE METER 148 mg/dL 70-110 H TESTED AT [facility] 6720 ([facility]) (test code = [facility] 1538) [address] POCT-GLUCOSE [id number] 12:00:00 Test Item Value Reference Range Interpretation Comments POC-GLUCOSE METER 137 mg/dL 70-110 H TESTED AT [facility] 6720 [facility] (test code = [facility] Gisselle [facility] 1538) [address] POCT-GLUCOSE [id number] 07:55:00 Test Item Value Reference Range Interpretation Comments POC-GLUCOSE METER 141 mg/dL 70-110 H TESTED AT [facility] 6720 ([facility]) (test code = [place] Pitts [facility] 1538) [address] [id number] 05:30:00 Test Item Value Reference Range Interpretation Comments MAGNESIUM (BEAKER) (test code = 1.4 mg/dL 1.6-2.6 L 627) BASIC METABOLIC [id number] 05:30:00 Test Item Value Reference Range Interpretation [...] APPLICABLE FOR DIALYSIS PATIEN TS. HEMOGLOBIN AND [id number] 05:07:00 Test Item Value Reference Range Interpretation Comments HEMOGLOBIN (BEAKER) (test code = 8.8 GM/DL 11.2-15.7 L 410) HEMATOCRIT (BEAKER) (test code = 28.4 % 34.1-44.9 L 411) BLOOD [id number] 00:00:00 Test Item Value Reference Range Interpretation Comments CULTURE (BEAKER) (test No growth in 5 days code = 1095) BLOOD [id number] 00:00:00 Test Item Value Reference Range Interpretation Comments CULTURE (BEAKER) (test No growth in 5 days code = 1095) POCT-GLUCOSE [id number] 22:59:00 Test Item Value Reference Range Interpretation Comments POC-GLUCOSE METER 141 mg/dL 70-110 H TESTED AT [facility] 6720 (BEAKER) (test code = RODOLFO [place] 1538) [address] HEMOGLOBIN AND [id number] 16:50:00 Test Item Value Reference Range Interpretation Comments HEMOGLOBIN (BEAKER) (test code = 9.6 GM/DL 11.2-15.7 L 410) HEMATOCRIT (BEAKER) (test code = 30.8 % 34.1-44.9 L 411) POCT-GLUCOSE [id number] 13:15:00 Test Item Value Reference Range Interpretation Comments POC-GLUCOSE METER 144 mg/dL 70-110 H TESTED AT [facility] 6720 (BEAKER) (test code = RODOL[place] Pitts [place] 1538) [address] POCT-GLUCOSE [id number] 08:27:00 Test Item Value Reference Range Interpretation Comments POC-GLUCOSE METER 125 mg/dL 70-110 H TESTED AT [facility] 6720 (BEAKER) (test code = [facility] Gisselle [place] 1538) [address] [id number] 07:54:00 Test Item Value Reference Range Interpretation Comments MAGNESIUM (BEAKER) (test code = 1.0 mg/dL 1.6-2.6 LL 627) BASIC METABOLIC [id number] 07:25:00 Test Item Value Reference Range Interpretation [...] APPLICABLE FOR DIALYSIS PATIEN TS. HEMOGLOBIN AND [id number] 07:15:00 Test Item Value Reference Range Interpretation Comments HEMOGLOBIN (BEAKER) (test code = 8.5 GM/DL 11.2-15.7 L 410) HEMATOCRIT (BEAKER) (test code = 27.0 % 34.1-44.9 L 411) CBC W/PLT COUNT & AUTO [id number] 07:15:00 Test Item Value Reference Range Interpretation [...] IMMATURE GRANULOCYTES-RELATIVE 2 % 0-1 H PERCENT ([facility]) (test code = 2801) POCT-GLUCOSE [id number] 00:54:00 Test Item Value Reference Range Interpretation Comments POC-GLUCOSE METER 165 mg/dL 70-110 H TESTED AT [place] [address] ([facility]) (test code = [facility] 1538) [address] POCT-GLUCOSE [id number] 18:13:00 Test Item Value Reference Range Interpretation Comments POC-GLUCOSE METER 255 mg/dL 70-110 H TESTED AT [place] [address] ([facility]) (test code = [facility] 1538) [address] HEMOGLOBIN AND [id number] 17:10:00 Test Item Value Reference Range Interpretation Comments HEMOGLOBIN (BEAKER) (test code = 9.0 GM/DL 11.2-15.7 L 410) HEMATOCRIT (BEAKER) (test code = 28.1 % 34.1-44.9 L 411) POCT-GLUCOSE [id number] 11:29:00 Test Item Value Reference Range Interpretation Comments POC-GLUCOSE METER 204 mg/dL 70-110 H TESTED AT [place] [address] ([facility]) (test code = [facility] 1538) [address] CBC W/PLT COUNT & AUTO [id number] 10:04:00 Test Item Value Reference Range Interpretation [...] PERCENT (BEAKER) (test code = 2801) POCT-GLUCOSE [id number] 08:20:00 Test Item Value Reference Range Interpretation Comments POC-GLUCOSE METER 128 mg/dL 70-110 H TESTED AT [facility] 6720 (BEAKER) (test code = [place] 1538) [address] [id number] 05:08:00 Test Item Value Reference Range Interpretation Comments MAGNESIUM (BEAKER) 1.3 mg/dL 1.6-2.6 L Specimen slightly (test code = 627) hemolyzed [id number] 05:08:00 Test Item Value Reference Range Interpretation Comments PHOSPHORUS (BEAKER) 2.6 mg/dL 2.3-4.7 Specimen slightly (test code = 604) hemolyzed BASIC METABOLIC [id number] 05:08:00 Test Item Value Reference Range Interpretation [...] APPLICABLE FOR DIALYSIS PATIEN TS. HEMOGLOBIN AND [id number] 04:46:00 Test Item Value Reference Range Interpretation Comments HEMOGLOBIN (BEAKER) (test code = 8.7 GM/DL 11.2-15.7 L 410) HEMATOCRIT (BEAKER) (test code = 27.8 % 34.1-44.9 L 411) POCT-GLUCOSE [id number] 00:51:00 Test Item Value Reference Range Interpretation Comments POC-GLUCOSE METER 142 mg/dL 70-110 H TESTED AT [facility] 6720 (BEAKER) (test code = [place] 5290) [address] HEMOGLOBIN AND [id number] 20:58:00 Test Item Value Reference Range Interpretation Comments HEMOGLOBIN (BEAKER) (test code = 9.6 GM/DL 11.2-15.7 L 410) HEMATOCRIT (BEAKER) (test code = 29.6 % 34.1-44.9 L 411) POCT-GLUCOSE [id number] 18:36:00 Test Item Value Reference Range Interpretation Comments POC-GLUCOSE METER 228 mg/dL 70-110 H TESTED AT [place] [address] (BEAKER) (test code = RODOL[place] Pitts [place] 1538) [address] SPUTUM CULTURE + GRAM [id number] 15:57:00 Test Item Value Reference Range Interpretation Comments CULTURE (BEAKER) 2+ Normal respiratory (test code = 1095) cosme present GRAM STAIN RESULT 4+ WBCs (BEAKER) (test code = 1123) GRAM STAIN RESULT No epithelial cells (BEAKER) (test code = 93425) GRAM STAIN RESULT 1+ yeast (BEAKER) (test code = 34140) HEMOGLOBIN AND [id number] 12:05:00 Test Item Value Reference Range Interpretation Comments HEMOGLOBIN (BEAKER) (test code = 8.5 GM/DL 11.2-15.7 L 410) HEMATOCRIT (BEAKER) (test code = 25.9 % 34.1-44.9 L 411) POCT-GLUCOSE [id number] 11:40:00 Test Item Value Reference Range Interpretation Comments POC-GLUCOSE METER 180 mg/dL 70-110 H TESTED AT [place] [address] (BEAKER) (test code = ROD[place] Pitts [facility] 1538) [address] POCT-GLUCOSE [id number] 06:14:00 Test Item Value Reference Range Interpretation Comments POC-GLUCOSE METER 143 mg/dL 70-110 H TESTED AT [place] [address] (BEAKER) (test code = RODOL[place] Pitts [place] 1538) [address] BASIC METABOLIC [id number] 05:05:00 Test Item Value Reference Range Interpretation [...] APPLICABLE FOR DIALYSIS PATIEN TS. VANCOMYCIN LEVEL, [id number] 05:04:00 Test Item Value Reference Range Interpretation Comments VANCOMYCIN RANDOM (BEAKER) (test 23.1 ug/mL code = 523) Reference Range: No [id number] 05:02:00 Test Item Value Reference Range Interpretation Comments PHOSPHORUS (BEAKER) (test code = 3.9 mg/dL 2.3-4.7 604) [id number] 05:02:00 Test Item Value Reference Range Interpretation Comments MAGNESIUM (BEAKER) (test code = 1.4 mg/dL 1.6-2.6 L 627) HEMOGLOBIN AND [id number] 04:36:00 Test Item Value Reference Range Interpretation Comments HEMOGLOBIN (BEAKER) (test code = 7.5 GM/DL 11.2-15.7 L 410) HEMATOCRIT (BEAKER) (test code = 22.8 % 34.1-44.9 L 411) POCT-GLUCOSE [id number] 00:02:00 Test Item Value Reference Range Interpretation Comments POC-GLUCOSE METER 180 mg/dL 70-110 H TESTED AT [place] [address] (BEAKER) (test code = [facility] 1538) [address] HEMOGLOBIN AND [id number] 20:48:00 Test Item Value Reference Range Interpretation Comments HEMOGLOBIN (BEAKER) (test code = 8.3 GM/DL 11.2-15.7 L 410) HEMATOCRIT (BEAKER) (test code = 25.0 % 34.1-44.9 L 411) POCT-GLUCOSE [id number] 18:14:00 Test Item Value Reference Range Interpretation Comments POC-GLUCOSE METER 131 mg/dL 70-110 H TESTED AT [place] [address] (BEAKER) (test code = [facility] 1538) [address] VANCOMYCIN LEVEL, [id number] 16:48:00 Test Item Value Reference Range Interpretation Comments VANCOMYCIN RANDOM (BEAKER) (test 28.3 ug/mL code = 523) Reference Range: No NormalsPOCT-GLUCOSE [id number] 12:43:00 Test Item Value Reference Range Interpretation Comments POC-GLUCOSE METER 157 mg/dL 70-110 H TESTED AT [facility] 6720 (BEAKER) (test code = [place] 1538) [address] HEMOGLOBIN AND [id number] 12:20:00 Test Item Value Reference Range Interpretation Comments HEMOGLOBIN (BEAKER) (test code = 8.3 GM/DL 11.2-15.7 L 410) HEMATOCRIT (BEAKER) (test code = 25.4 % 34.1-44.9 L 411) BASIC METABOLIC [id number] 05:37:00 Test Item Value Reference Range Interpretation [...] PATIEN TS. CBC W/PLT COUNT & AUTO [id number] 04:41:00 Test Item Value Reference Range Interpretation [...] 0-1 H PERCENT (BEAKER) (test code = 2809) POCT-GLUCOSE [id number] 00:06:00 Test Item Value Reference Range Interpretation Comments POC-GLUCOSE METER 174 mg/dL 70-110 H TESTED AT [facility] 6720 (BEAKER) (test code = [place] 1538) [address] POCT-GLUCOSE [id number] 17:26:00 Test Item Value Reference Range Interpretation Comments POC-GLUCOSE METER 179 mg/dL 70-110 H TESTED AT [facility] 6720 (MARIA ELENA) (test code = [place] 1538) [address] [place], [id number] 17:19:00FINAL REPORT CLINICAL HISTORY: Recent pancreatitis, shock [...] Clemens Verified Date/Time: 05/05/2018 17:19:54 Reading Location: [address] Reading Room TROPONIN I 2018-05-05 16:31:00 [...] acidosis, acute neurological disease, and persistent tachyarrhythmia.POCT-GLUCOSE [id number] 12:29:00 Test Item Value Reference Range Interpretation Comments POC-GLUCOSE METER 139 mg/dL 70-110 H TESTED AT [facility] 6720 (BEAKER) (test code = [place] 1538) [address] URINALYSIS W/ REFLEX URINE [id number] 09:51:00 Test Item Value Reference Range Interpretation [...] SOURCE(BEAKER) (test code = 2795) SODIUM, RANDOM [id number] 09:46:00 Test Item Value Reference Range Interpretation Comments SODIUM URINE (BEAKER) (test code = 23 meq/L 243) Reference Range: No NormalsCREATININE, RANDOM [id number] 09:32:00 Test Item Value Reference Range Interpretation Comments CREATININE URINE (BEAKER) (test 67.0 mg/dL code = 375) Reference Range: No NormalsUREA NITROGEN, RANDOM [id number] 09:32:00 Test Item Value Reference Range Interpretation Comments UREA NITROGEN URINE (BEAKER) (test 170 mg/dL code = 538) Reference Range: No NormalsLACTIC ACID, ARTERIAL, WHOLE [id number] 09:16:00 Test Item Value Reference Range Interpretation Comments LACTATE BLOOD ARTERIAL (2) 0.8 mmol/L 0.5-2.2 (BEAKER) (test code = 2874) Effective 12/15/2015: Units/Reference Range ChangeNew: 0.5-2.2 mmol/L Previous: 5-20 mg/dLHEMATOCRIT-STAT [id number] 09:02:00 Test Item Value Reference Range Interpretation Comments HEMATOCRIT (BEAKER) (test code = 411) 23.0 % 36.0-45.0 L BLOOD GAS, [id number] 09:02:00 Test Item Value Reference Range Interpretation [...] (test code = 1819) 30.0 % HEMOGLOBIN-STAT [id number] 09:01:00 Test Item Value Reference Range Interpretation Comments HEMOGLOBIN (BEAKER) (test code = 7.7 g/dL 12.0-15.0 L 410) TROPONIN [id number] 08:24:00 Test Item Value Reference Range Interpretation [...] acute neurological disease, and persistent tachyarrhythmia.BASIC METABOLIC [id number] 08:22:00 Test Item Value Reference Range Interpretation [...] APPLICABLE FOR DIALYSIS PATIEN TS. BLOOD GAS, [id number] 07:56:00 Test Item Value Reference Range Interpretation [...] code = 1819) 30.0 % VANCOMYCIN LEVEL, [id number] 05:44:00 Test Item Value Reference Range Interpretation Comments VANCOMYCIN RANDOM (BEAKER) (test 16.7 ug/mL code = 523) Reference Range: No NormalsLACTIC ACID, VENOUS, WHOLE [id number] 05:22:00 Test Item Value Reference Range Interpretation Comments LACTATE BLOOD VENOUS (2) (BEAKER) 0.7 mmol/L 0.5-2.2 (test code = 2872) Effective 12/15/2015: Units/Reference Range ChangeNew: 0.5-2.2 mmol/L Previous: 5-20 mg/dLBLOOD GAS, [id number] 05:03:00 Test Item Value Reference Range Interpretation [...] (test code = 1819) 30.0 % TROPONIN [id number] 05:00:00 Test Item Value Reference Range Interpretation [...] failure, acidosis, acute neurological disease, and persistent tachyarrhythmia.[id number] 04:54:00 Test Item Value Reference Range Interpretation Comments LIPASE (BEAKER) (test code = 749) 47 U/L 8-78 HEPATIC FUNCTION [id number] 04:54:00 Test Item Value Reference Range Interpretation [...] 6-55 347) RAD, CHEST, 1 VIEW, NON [id number] 04:49:00Reason for exam:- >IntubationShould this be performed [...] Clem[place]port Verified Date/Time: 05/05/2018 04:49:25 Reading Location: [address] Reading Room [id number] 04:47:00 Test Item Value Reference Range Interpretation Comments PROCALCITONIN (BEAKER) (test code 2.43 ng/mL <0.05 H = 3036) SEPSIS RISK (ng/mL)Low: 0.05-0.50Intermediate: 0.51-2.00High: >=2.01RAD, ABDOMEN/KUB, 1 VIEW [id number] 04:47:00Reason for exam:->OG placement Should this be [...] MDReport Verified Date/Time: 05/05/2018 04:47:09 Reading Location: [address] Reading Room BLOOD GAS, [id number] 03:34:00 Test Item Value Reference Range Interpretation [...] 40.0 % CBC W/PLT COUNT & AUTO [id number] 03:25:00 Test Item Value Reference Range Interpretation [...] code = 2801) LACTIC ACID, VENOUS, WHOLE [id number] 02:41:00 Test Item Value Reference Range Interpretation Comments LACTATE BLOOD VENOUS (2) (BEAKER) 0.5 mmol/L 0.5-2.2 (test code = 2872) Effective 12/15/2015: Units/Reference Range ChangeNew: 0.5-2.2 mmol/L Previous: 5-20 mg/dLBLOOD GAS, [id number] 02:10:00 Test Item Value Reference Range Interpretation [...] code = 1819) 28.0 % BASIC METABOLIC [id number] 01:46:00 Test Item Value Reference Range Interpretation [...] pg/mL 0-100 H (test code = 700) [id number] 01:31:00 Test Item Value Reference Range Interpretation Comments MAGNESIUM (BEAKER) (test code = 1.8 mg/dL 1.6-2.6 627) LACTIC ACID, VENOUS, WHOLE [id number] 01:29:00 Test Item Value Reference Range Interpretation Comments LACTATE BLOOD VENOUS (2) (BEAKER) 0.7 mmol/L 0.5-2.2 (test code = 2872) Effective 12/15/2015: Units/Reference Range ChangeNew: 0.5-2.2 mmol/L Previous: 5-20 mg/dLCBC W/PLT COUNT & AUTO [id number] 01:14:00 Test Item Value Reference Range Interpretation [...] PERCENT (BEAKER) (test code = 2801) POCT-GLUCOSE [id number] 01:01:00 Test Item Value Reference Range Interpretation Comments POC-GLUCOSE METER 138 mg/dL 70-110 H TESTED AT [facility] 6720 (BEAKER) (test code = RODOL[place] [facility] 1538) [address] RAD, CHEST, 1 VIEW, NON [id number] 00:17:00Reason for exam:->concern for respiratory distressShould this [...] MDReport Verified Date/Time: 05/05/2018 00:17:28 Reading Location: [address] Reading Room POCT-LACTIC ACID, [id number] 23:56:00 Test Item Value Reference Range Interpretation Comments POC-LACTIC ACID, 0.9 mmol/L 0.4-1.3 TESTED AT [facility] 6720 ARTERIAL (BEAKER) [place] (test code = 2804) [address] POCT-BLOOD GASES, [id number] 23:56:00 Test Item Value Reference Range Interpretation Comments TEMP, CELSIUS-POC 36.1 (BEAKER) (test code = 1834) FIO2-POC (BEAKER) 32 TESTED AT [place] [address] (test code = 1835) [facility] [address] PH, ARTERIAL-POC 7.192 7.350-7.450 LL (BEAKER) (test [...] L ARTERIAL-POC (BEAKER) (test code = 1841) [id number] 23:56:00 Test Item Value Reference Range Interpretation Comments POC-SODIUM (BEAKER) 127 meq/L 135-148 L TESTED A T [place] [address] (test code = 1542) [facility] [address] [id number] 23:56:00 Test Item Value Reference Range Interpretation Comments POC-POTASSIUM 4.8 meq/L 3.6-5.5 TESTED AT [place] [address] (BEAKER) (test code [facility] [address] = 1540) [id number] 23:56:00 Test Item Value Reference Range Interpretation Comments POC-GLUCOSE (BEAKER) 116 mg/dL 70-110 H TESTED AT [place] [address] (test code = 1855) [facility] [address] POCT-CALCIUM [id number] 23:56:00 Test Item Value Reference Range Interpretation Comments POC-CALCIUM IONIZED 1.20 mmol/L 1.12-1.27 TESTED A T [place] [address] ([facility]) (test code = RODOLFO Pitts [facility] 1536) [address] [id number] 23:56:00 Test Item Value Reference Range Interpretation Comments POC-HEMATOCRIT 25 % 36-45 L TESTED AT [place] [address] ([facility]) (test code = [facility] [address] 1857) [id number] 23:56:00 Test Item Value Reference Range Interpretation Comments POC-HEMOGLOBIN 8.5 g/dL 12.0-15.0 L TESTED AT [place] [address] ([facility]) (test code = [facility] Gisselle [facility] 1856) [address]XVEVSG AT [place] [address] RADHA [facility] [address] POCT-GLUCOSE [id number] 21:48:00 Test Item Value Reference Range Interpretation Comments POC-GLUCOSE METER 136 mg/dL 70-110 H TESTED AT [place] [address] ([facility]) (test code = [facility] 1538) [address] POCT-GLUCOSE [id number] 19:03:00 Test Item Value Reference Range Interpretation Comments POC-GLUCOSE METER 131 mg/dL 70-110 H TESTED AT [place] [address] ([facility]) (test code = [facility] 1538) [address] POCT-BLOOD GASES, [id number] 16:54:00 Test Item Value Reference Range Interpretation Comments TEMP, CELSIUS-POC 37.0 ([facility]) (test code = 1834) FIO2-POC (AKER) TESTED AT [place] [address] (test code = 1835) RADHA Black [facility] [address] PH, VENOUS-POC 7.224 7.320-7.420 L ([facility]) (test code = 1842) PCO2, VENOUS-POC 63.8 mm Hg 41.0-51.0 H ([facility]) (test code = 1843) PO2, VENOUS-POC 31.0 mm Hg 25.0-40.0 ([facility]) (test code = 1844) SO2, VENOUS-POC 46.0 % 40.0-70.0 ([facility]) (test code = 1845) HCO3, VENOUS-POC 26.3 meq/L 21.0-29.0 ([facility]) (test code = 1846) BASE EXCESS, -1.0 meq/L -2.0-3.0 VENOUS-POC ([facility]) (test code = 1847) [id number] 16:54:00 Test Item Value Reference Range Interpretation Comments POC-SODIUM ([facility]) 129 meq/L 135-148 L TESTED A [place] [address] (test code = 1542) [facility] [address] [id number] 16:54:00 Test Item Value Reference Range Interpretation Comments POC-POTASSIUM 4.7 meq/L 3.6-5.5 TESTED AT [place] [address] ([facility]) (test code [place] [id number] = 1540) [id number] 16:54:00 Test Item Value Reference Range Interpretation Comments POC-GLUCOSE ([facility]) 116 mg/dL 70-110 H TESTED AT [place] [address] (test code = 1855) [facility] [address] POCT-CALCIUM [id number] 16:54:00 Test Item Value Reference Range Interpretation Comments POC-CALCIUM IONIZED 1.19 mmol/L 1.12-1.27 TESTED [place] [address] ([facility]) (test code = [facility] 1537) [address] [id number] 16:54:00 Test Item Value Reference Range Interpretation Comments POC-HEMATOCRIT 25 % 36-45 L TESTED AT [place] [address] ([facility]) (test code = [facility] [address] 8586) [id number] 16:54:00 Test Item Value Reference Range Interpretation Comments POC-HEMOGLOBIN 8.5 g/dL 12.0-15.0 L TESTED AT [place] [address] ([facility]) (test code = [facility] 1172) [id number] AT [place] [address] [facility] [address] POCT-GLUCOSE [id number] 13:26:00 Test Item Value Reference Range Interpretation Comments POC-GLUCOSE METER 124 mg/dL 70-110 H TESTED AT [place] [address] (BEAKER) (test code = [place] 1538) [address] POCT-LACTIC ACID, [id number] 12:57:00 Test Item Value Reference Range Interpretation Comments POC-LACTIC ACID, 1.1 mmol/L 0.9-1.7 TESTED AT [facility] [address] (BEAKER) (test [place] code = 2805) [address] COMPREHENSIVE METABOLIC [id number] 09:56:00 Test Item Value Reference Range Interpretation [...] S NOT APPLICABLE FOR DIALYSIS PATIEN TS. [id number] 09:48:00 Test Item Value Reference Range Interpretation Comments PHOSPHORUS (BEAKER) (test code = 5.0 mg/dL 2.3-4.7 H 604) [id number] 09:48:00 Test Item Value Reference Range Interpretation Comments MAGNESIUM (BEAKER) (test code = 1.9 mg/dL 1.6-2.6 627) POCT-GLUCOSE [id number] 09:23:00 Test Item Value Reference Range Interpretation Comments POC-GLUCOSE METER 148 mg/dL 70-110 H TESTED AT [facility] 6720 (BEAKER) (test code = [place] 1538) [address] CBC (HEMOGRAM ONLY)2018-05-04 07:04:00 Test Item Value [...] 0-0 (BEAKER) (test code = 413) PROTHROMBIN [id number] 06:20:00 Test Item Value Reference Range Interpretation Comments PROTIME (BEAKER) (test code = 14.0 seconds 11.7-14.7 759) INR (BEAKER) (test code = 370) 1.1 <=5.9 RECOMMENDED COUMADIN/WARFARIN INR THERAPY RANGESSTANDARD DOSE: 2.0 - 3.0 Includes: PROPHYLAXIS forvenous thrombosis, systemic embolization; TREATMENT for venous thrombosis and/or pulmonary embolus.HIGH RISK: Target INR is 2.5-3.5 for patients with mechanical heart valves.[id number] 06:20:00 Test Item Value Reference Range Interpretation Comments PARTIAL THROMBOPLASTIN TIME 38.0 seconds 22.5-36.0 H ([facility]) (test code = 760) POCT-GLUCOSE [id number] 21:01:00 Test Item Value Reference Range Interpretation Comments POC-GLUCOSE METER 113 mg/dL 70-110 H TESTED AT [place] [address] ([facility]) (test code = [facility] 1538) [address] POCT-GLUCOSE [id number] 17:33:00 Test Item Value Reference Range Interpretation Comments POC-GLUCOSE METER 123 mg/dL 70-110 H TESTED AT [place] [address] ([facility]) (test code = [facility] 1538) [address] POCT-GLUCOSE [id number] 12:19:00 Test Item Value Reference Range Interpretation Comments POC-GLUCOSE METER 127 mg/dL 70-110 H TESTED AT [place] [address] ([facility]) (test code = [facility] 1538) [address] POCT-GLUCOSE [id number] 08:08:00 Test Item Value Reference Range Interpretation Comments POC-GLUCOSE METER 129 mg/dL 70-110 H TESTED AT [place] [address] ([facility]) (test code = [facility] 1538) [address] BLOOD GAS, [id number] 07:23:00 Test Item Value Reference Range Interpretation [...] code = 1819) 20.0 % COMPREHENSIVE METABOLIC [id number] 07:11:00 Test Item Value Reference Range Interpretation [...] S NOT APPLICABLE FOR DIALYSIS PATIEN TS. [id number] 07:09:00 Test Item Value Reference Range Interpretation Comments PHOSPHORUS (BEAKER) (test code = 3.6 mg/dL 2.3-4.7 604) [id number] 07:09:00 Test Item Value Reference Range Interpretation Comments MAGNESIUM (BEAKER) (test code = 1.8 mg/dL 1.6-2.6 627) [id number] 06:34:00 Test Item Value Reference Range Interpretation [...] 0-0 (BEAKER) (test code = 413) PROTHROMBIN [id number] 06:33:00 Test Item Value Reference Range Interpretation Comments PROTIME (BEAKER) (test code = 14.5 seconds 11.7-14.7 759) INR (BEAKER) (test code = 370) 1.1 <=5.9 RECOMMENDED COUMADIN/WARFARIN INR THERAPY RANGESSTANDARD DOSE: 2.0 - 3.0 Includes: PROPHYLAXIS forvenous thrombosis, systemic embolization; TREATMENT for venous thrombosis and/or pulmonary embolus.HIGH RISK: Target INR is 2.5-3.5 for patients with mechanical heart valves.LACTIC ACID, VENOUS, WHOLE [id number] 06:32:00 Test Item Value Reference Range Interpretation Comments LACTATE BLOOD VENOUS (2) (BEAKER) 1.0 mmol/L 0.5-2.2 (test code = 2872) Effective 12/15/2015: Units/Reference Range ChangeNew: 0.5-2.2 mmol/L Previous: 5-20 mg/dLPOCT-GLUCOSE [id number] 21:06:00 Test Item Value Reference Range Interpretation Comments POC-GLUCOSE METER 168 mg/dL 70-110 H TESTED AT [place] [address] ([facility]) (test code = [facility] 1538) [address] POCT-GLUCOSE [id number] 19:02:00 Test Item Value Reference Range Interpretation Comments POC-GLUCOSE METER 122 mg/dL 70-110 H TESTED AT [place] [address] ([facility]) (test code = [facility] 1538) [address] [id number] 18:09:00 Test Item Value Reference Range Interpretation Comments PHOSPHORUS (BEAKER) (test code = 2.7 mg/dL 2.3-4.7 604) [id number] 18:09:00 Test Item Value Reference Range Interpretation Comments MAGNESIUM (BEAKER) (test code = 1.9 mg/dL 1.6-2.6 627) [id number] 18:09:00 Test Item Value Reference Range Interpretation Comments CALCIUM (BEAKER) (test code = 697) 8.7 mg/dL 8.4-10.2 POCT-GLUCOSE [id number] 13:13:00 Test Item Value Reference Range Interpretation Comments POC-GLUCOSE METER 162 mg/dL 70-110 H TESTED AT [place] [address] ([facility]) (test code = [facility] 1538) [address] RAD, CHEST, 1 VIEW, NON [id number] 12:12:00Reason for exam:->Pulmobnary edema?Should this be performed [...] Crowe Verified Date/Time: 05/02/2018 12:12:11 Reading Location: [facility] Reading Room POCT-GLUCOSE [id number] 08:27:00 Test Item Value Reference Range Interpretation Comments POC-GLUCOSE METER 128 mg/dL 70-110 H TESTED AT [facility] 6720 (BEAKER) (test code = [place] 1538) [address] COMPREHENSIVE METABOLIC [id number] 07:40:00 Test Item Value Reference Range Interpretation [...] S NOT APPLICABLE FOR DIALYSIS PATIEN TS. [id number] 07:34:00 Test Item Value Reference Range Interpretation Comments PHOSPHORUS (BEAKER) (test code = 2.7 mg/dL 2.3-4.7 604) [id number] 07:34:00 Test Item Value Reference Range Interpretation Comments MAGNESIUM (BEAKER) (test code = 1.9 mg/dL 1.6-2.6 627) LACTIC ACID, VENOUS, WHOLE [id number] 06:59:00 Test Item Value Reference Range Interpretation [...] WBC 0-0 (BEAKER) (test code = 413) [id number] 06:34:00 Test Item Value Reference Range Interpretation Comments PARTIAL THROMBOPLASTIN TIME 38.8 seconds 22.5-36.0 H (BEAKER) (test code = 760) PROTHROMBIN [id number] 06:33:00 Test Item Value Reference Range Interpretation Comments PROTIME (BEAKER) (test code = 14.8 seconds 11.7-14.7 H 759) INR (BEAKER) (test code = 370) 1.2 <=5.9 RECOMMENDED COUMADIN/WARFARIN INR THERAPY RANGESSTANDARD DOSE: 2.0 - 3.0 Includes: PROPHYLAXIS forvenous thrombosis, systemic embolization; TREATMENT for venous thrombosis and/or pulmonary embolus.HIGH RISK: Target INR is 2.5-3.5 for patients with mechanical heart valves.BLOOD GAS, [id number] 06:29:00 Test Item Value Reference Range Interpretation [...] (test code = 1819) 20 % BLOOD [id number] 06:00:00 Test Item Value Reference Range Interpretation Comments CULTURE (BEAKER) (test No growth in 5 days code = 1095) BLOOD [id number] 06:00:00 Test Item Value Reference Range Interpretation Comments CULTURE (BEAKER) (test No growth in 5 days code = 1095) POCT-GLUCOSE [id number] 20:46:00 Test Item Value Reference Range Interpretation Comments POC-GLUCOSE METER 157 mg/dL 70-110 H TESTED AT [place] [address] ([facility]) (test code = [facility] 1538) [address] HEMOGLOBIN AND [id number] 14:24:00 Test Item Value Reference Range Interpretation Comments HEMOGLOBIN (BEAKER) (test code = 7.9 GM/DL 11.2-15.7 L 410) HEMATOCRIT ([facility]) (test code = 23.3 % 34.1-44.9 L 411) POCT-GLUCOSE [id number] 13:32:00 Test Item Value Reference Range Interpretation Comments POC-GLUCOSE METER 116 mg/dL 70-110 H TESTED AT [place] [address] ([facility]) (test code = [facility] 1538) [address] [id number] 12:04:00 Test Item Value Reference Range Interpretation Comments PROCALCITONIN (AKER) (test code 2.57 ng/mL <0.05 H = 3036) SEPSIS RISK (ng/mL)Low: 0.05-0.50Intermediate: 0.51-2.00High: >=[id number] 11:04:00 Test Item Value Reference Range Interpretation Comments LIPASE ([facility]) (test code = 749) 36 U/L 8-78 POCT-GLUCOSE [id number] 07:09:00 Test Item Value Reference Range Interpretation Comments POC-GLUCOSE METER 91 mg/dL 70-110 TESTED AT [place] [address] ([facility]) (test code = [facility] [address] 1538) CALCIUM, [id number] 06:30:00 Test Item Value Reference Range Interpretation Comments CALCIUM IONIZED (BEAKER) (test 1.10 mmol/L 1.12-1.27 L code = 698) PH, BLOOD (BEAKER) (test code = 7.40 1810) BLOOD GAS, [id number] 05:31:00 Test Item Value Reference Range Interpretation [...] code = 1819) 20.0 % COMPREHENSIVE METABOLIC [id number] 05:10:00 Test Item Value Reference Range Interpretation [...] S NOT APPLICABLE FOR DIALYSIS PATIEN TS. [id number] 05:05:00 Test Item Value Reference Range Interpretation Comments PHOSPHORUS (BEAKER) (test code = 2.2 mg/dL 2.3-4.7 L 604) [id number] 05:05:00 Test Item Value Reference Range Interpretation Comments MAGNESIUM (BEAKER) (test code = 1.9 mg/dL 1.6-2.6 627) LACTIC ACID, VENOUS, WHOLE [id number] 04:44:00 Test Item Value Reference Range Interpretation Comments LACTATE BLOOD VENOUS (2) (BEAKER) 0.7 mmol/L 0.5-2.2 (test code = 2872) Effective 12/15/2015: Units/Reference Range ChangeNew: 0.5-2.2 mmol/L Previous: 5-20 mg/[id number] 04:42:00 Test Item Value Reference Range Interpretation Comments PARTIAL THROMBOPLASTIN TIME 41.1 seconds 22.5-36.0 H (BEAKER) (test code = 760) PROTHROMBIN [id number] 04:41:00 Test Item Value Reference Range Interpretation [...] (BEAKER) (test code = 412) PLATELET COUNT ([facility]) (test 184 K/CU MM 150-450 code = 756) MEAN PLATELET VOLUME (AKER) 10.0 fL 9.4-12.3 (test code = 754) NUCLEATED RED BLOOD CELLS 1 /100 WBC 0-0 H (AKER) (test code = 413) POCT-GLUCOSE [id number] 22:06:00 Test Item Value Reference Range Interpretation Comments POC-GLUCOSE METER 109 mg/dL 70-110 TESTED AT [place] [address] ([facility]) (test code = [place] 1538) [address] [id number] 21:01:00 Test Item Value Reference Range Interpretation Comments POTASSIUM (BEAKER) 4.1 meq/L 3.5-5.1 Specimen slightly (test code = 379) hemolyzed [id number] 18:20:00 Test Item Value Reference Range Interpretation Comments POTASSIUM (BEAKER) (test code = 4.0 meq/L 3.5-5.1 379) [id number] 18:20:00 Test Item Value Reference Range Interpretation Comments MAGNESIUM (BEAKER) (test code = 1.8 mg/dL 1.6-2.6 627) [id number] 18:20:00 Test Item Value Reference Range Interpretation Comments PHOSPHORUS (BEAKER) (test code = 1.9 mg/dL 2.3-4.7 L 604) [id number] 18:20:00 Test Item Value Reference Range Interpretation Comments CALCIUM (BEAKER) (test code = 697) 8.9 mg/dL 8.4-10.2 POCT-GLUCOSE [id number] 17:24:00 Test Item Value Reference Range Interpretation Comments POC-GLUCOSE METER 100 mg/dL 70-110 TESTED AT [place] [address] ([facility]) (test code = [place] 1538) [address] BLOOD GAS, [id number] 14:09:00 Test Item Value Reference Range Interpretation [...] (BEAKER) (test code = 1819) 100.0 % [id number] 13:11:00 Test Item Value Reference Range Interpretation Comments POTASSIUM (BEAKER) (test code = 4.2 meq/L 3.5-5.1 379) POCT-GLUCOSE [id number] 12:04:00 Test Item Value Reference Range Interpretation Comments POC-GLUCOSE METER 86 mg/dL 70-110 TESTED AT [facility] 6720 (BEAKER) (test code = [place] [facility] [address] 1538) [id number] 08:55:00 Test Item Value Reference Range Interpretation Comments POTASSIUM (BEAKER) (test code = 4.2 meq/L 3.5-5.1 379) BLOOD GAS, [id number] 08:49:00 Test Item Value Reference Range Interpretation [...] % Please obtain with patient off bipapPOCT-GLUCOSE [id number] 07:13:00 Test Item Value Reference Range Interpretation Comments POC-GLUCOSE METER 83 mg/dL 70-110 TESTED AT [facility] 6720 (BEAKER) (test code = [place] [address] 1538) [id number] 04:01:00 Test Item Value Reference Range Interpretation Comments PHOSPHORUS (BEAKER) (test code = 1.8 mg/dL 2.3-4.7 L 604) [id number] 04:01:00 Test Item Value Reference Range Interpretation Comments MAGNESIUM (BEAKER) (test code = 1.7 mg/dL 1.6-2.6 627) COMPREHENSIVE METABOLIC [id number] 04:01:00 Test Item Value Reference Range Interpretation [...] DIALYSIS PATIEN TS. LACTIC ACID, ARTERIAL, WHOLE [id number] 03:49:00 Test Item Value Reference Range Interpretation [...] 0-0 H (BEAKER) (test code = 413) [id number] 03:47:00 Test Item Value Reference Range Interpretation Comments PARTIAL THROMBOPLASTIN TIME 32.8 seconds 22.5-36.0 (BEAKER) (test code = 760) PROTHROMBIN [id number] 03:46:00 Test Item Value Reference Range Interpretation Comments PROTIME (BEAKER) (test code = 15.0 seconds 11.7-14.7 H 759) INR (BEAKER) (test code = 370) 1.2 <=5.9 RECOMMENDED COUMADIN/WARFARIN INR THERAPY RANGESSTANDARD DOSE: 2.0 - 3.0 Includes: PROPHYLAXIS forvenous thrombosis, systemic embolization; TREATMENT for venous thrombosis and/or pulmonary embolus.HIGH RISK: Target INR is 2.5-3.5 for patients with mechanical heart valves.CALCIUM, [id number] 03:38:00 Test Item Value Reference Range Interpretation Comments CALCIUM IONIZED (BEAKER) (test 1.17 mmol/L 1.12-1.27 code = 698) PH, BLOOD (BEAKER) (test code = 7.39 1810) POCT-GLUCOSE [id number] 23:04:00 Test Item Value Reference Range Interpretation Comments POC-GLUCOSE METER 94 mg/dL 70-110 TESTED AT [place] [address] ([facility]) (test code = [facility] [address] 1538) [id number] 21:57:00 Test Item Value Reference Range Interpretation Comments POTASSIUM (BEAKER) (test code = 4.4 meq/L 3.5-5.1 379) POCT-GLUCOSE [id number] 18:02:00 Test Item Value Reference Range Interpretation Comments POC-GLUCOSE METER 99 mg/dL 70-110 TESTED AT [place] [address] ([facility]) (test code = [facility] [address] 1538) BLOOD GAS, [id number] 17:15:00 Test Item Value Reference Range Interpretation [...] (BEAKER) (test 37.0 C code = 1818) [id number] 16:07:00 Test Item Value Reference Range Interpretation Comments POTASSIUM (BEAKER) (test code = 4.4 meq/L 3.5-5.1 379) [id number] 16:07:00 Test Item Value Reference Range Interpretation Comments MAGNESIUM (BEAKER) (test code = 2.0 mg/dL 1.6-2.6 627) [id number] 16:07:00 Test Item Value Reference Range Interpretation Comments PHOSPHORUS (BEAKER) (test code = 2.1 mg/dL 2.3-4.7 L 604) [id number] 16:07:00 Test Item Value Reference Range Interpretation Comments CALCIUM (BEAKER) (test code = 697) 8.2 mg/dL 8.4-10.2 L MR, ABDOMEN, [id number] 15:19:00FINAL REPORT INDICATION:57-year-old female with abdominal pain, [...] Laboy Verified Date/Time: 04/29/2018 15:19:21 Reading Location: [facility] C013Y CT Body Reading Room U/S, RENAL WITH [id number] 14:53:00Reason for exam:->ENRIQUE with severe sepsisShould this [...] Austin KenortVerified Date/Time: 04/29/2018 14:53:07 Reading Location: [facility] P006J Ultrasound Reading Room BLOOD GAS, [id number] 14:33:00 Test Item Value Reference Range Interpretation [...] (test code = 1819) 100.0 % POCT-GLUCOSE [id number] 12:20:00 Test Item Value Reference Range Interpretation Comments POC-GLUCOSE METER 116 mg/dL 70-110 H TESTED AT [facility] 6720 (BEAKER) (test code = [place] 1538) [address] BLOOD GAS, [id number] 10:57:00 Test Item Value Reference Range Interpretation [...] (BEAKER) (test code = 1819) 100.0 % [id number] 10:19:00 Test Item Value Reference Range Interpretation [...] METER 125 mg/dL 70-110 H TESTED AT [facility] 6720 (BEAKER) (test code = [place] 1538) [address] BLOOD GAS, [id number] 06:41:00 Test Item Value Reference Range Interpretation [...] (test code = 1819) 28.0 % CALCIUM, [id number] 06:14:00 Test Item Value Reference Range Interpretation Comments CALCIUM IONIZED (BEAKER) (test 1.11 mmol/L 1.12-1.27 L code = 698) PH, BLOOD (BEAKER) (test code = 7.20 1810) COMPREHENSIVE METABOLIC [id number] 06:06:00 Test Item Value Reference Range Interpretation [...] APPLICABLE FOR DIALYSIS PATIEN TS. BASIC METABOLIC [id number] 06:05:00 Test Item Value Reference Range Interpretation [...] S NOT APPLICABLE FOR DIALYSIS PATIEN TS. [id number] 05:13:00 Test Item Value Reference Range Interpretation Comments PHOSPHORUS (BEAKER) (test code = 3.5 mg/dL 2.3-4.7 604) [id number] 05:13:00 Test Item Value Reference Range Interpretation Comments MAGNESIUM (BEAKER) (test code = 2.2 mg/dL 1.6-2.6 627) HIV-1 ANTIGEN WITH HIV-1/2 [id number] 05:12:00 Test Item Value Reference Range Interpretation Comments HIV-1 ANTIGEN WITH HIV 1\\T\\2 Nonreactive Nonreactive ANTIBODY (2) (BEAKER) (test code = 2586) LACTIC ACID, ARTERIAL, WHOLE [id number] 04:48:00 Test Item Value Reference Range Interpretation Comments LACTATE BLOOD ARTERIAL (2) 1.0 mmol/L 0.5-2.2 (BEAKER) (test code = 2874) Effective 12/15/2015: Units/Reference Range ChangeNew: 0.5-2.2 mmol/L Previous: 5-20 mg/[id number] 04:47:00 Test Item Value Reference Range Interpretation Comments PARTIAL THROMBOPLASTIN TIME 34.3 seconds 22.5-36.0 (BEAKER) (test code = 760) PROTHROMBIN [id number] 04:45:00 Test Item Value Reference Range Interpretation [...] WBC 0-0 (BEAKER) (test code = 413) [id number] 00:18:00 Test Item Value Reference Range Interpretation Comments POTASSIUM (BEAKER) (test code = 3.9 meq/L 3.5-5.1 379) POCT-GLUCOSE [id number] 22:25:00 Test Item Value Reference Range Interpretation Comments POC-GLUCOSE METER 172 mg/dL 70-110 H TESTED AT [place] [address] ([facility]) (test code = [place] 1538) [address] [id number] 20:46:00 Test Item Value Reference Range Interpretation Comments CALCIUM (BEAKER) (test code = 697) 7.1 mg/dL 8.4-10.2 L [id number] 20:34:00 Test Item Value Reference Range Interpretation Comments PHOSPHORUS (BEAKER) 3.5 mg/dL 2.3-4.7 Specimen slightly (test code = 604) hemolyzed [id number] 20:34:00 Test Item Value Reference Range Interpretation Comments POTASSIUM (BEAKER) 3.9 meq/L 3.5-5.1 Specimen slightly (test code = 379) hemolyzed [id number] 20:32:00 Test Item Value Reference Range Interpretation Comments MAGNESIUM (BEAKER) 2.2 mg/dL 1.6-2.6 Specimen slightly (test code = 627) hemolyzed POCT-GLUCOSE [id number] 18:02:00 Test Item Value Reference Range Interpretation Comments POC-GLUCOSE METER 151 mg/dL 70-110 H TESTED AT [place] [address] (BEAKER) (test code = [place] 1538) [address] [id number] 15:43:00 Test Item Value Reference Range Interpretation Comments POTASSIUM (BEAKER) (test code = 4.0 meq/L 3.5-5.1 379) RAD, CHEST, 1 VIEW, NON [id number] 15:34:00Reason for exam:->HD cath placementShould this be performed at the bedside?->YesFINAL REPORT AP chest HISTORY: 04/28/2018 IMPRESSION:Right IJ dialysis catheter placed with tip at upper SVC. Remainder supportive lines unchanged. Stable cardiac silhouette. Hypoinflation. Mild perihilar atelectasis. No pneumothorax. Signed: Mdaeleine Santacruz MDReport Verified Date/Time: 04/28/2018 15:34:26 Reading Location: [address] Ortho Consult Reading Room PLATELET [id number] 15:32:00 Test Item Value Reference Range Interpretation Comments PLATELET COUNT ([facility]) (test 105 K/CU MM 150-450 L code = 756) Please draw in citrate (blue top) tube at next blood drawACETAMINOPHEN LEVEL 2018-04-28 11:35:00 Test Item Value Reference Range Interpretation Comments ACETAMINOPHEN LEVEL (AYADAKER) (test < ug/mL 10.0-30.0 L code = 344) Therapeutic Range: 10.0-30.0 g/mLToxic Levels: >200.0 g/mLPOCT-GLUCOSE [id number] 11:15:00 Test Item Value Reference Range Interpretation Comments POC-GLUCOSE METER 152 mg/dL 70-110 H TESTED AT [facility] 67 ([facility]) (test code = [place] 1538) [address] HEPATITIS B SURFACE [id number] 11:06:00 Test Item Value Reference Range Interpretation Comments HEPATITIS B SURFACE ANTIGEN (2) Nonreactive Nonreactive ([facility]) (test code = 2585) HEPATITIS B CORE ANTIBODY, [id number] 11:06:00 Test Item Value Reference Range Interpretation Comments HEPATITIS B CORE IGM ANTIBODY Nonreactive Nonreactive ([facility]) (test code = 645) HEPATITIS C [id number] 11:06:00 Test Item Value Reference Range Interpretation Comments HEPATITIS C ANTIBODY (BEAKER) Nonreactive Nonreactive (test code = 367) HEPATITIS A ANTIBODY, [id number] 11:06:00 Test Item Value Reference Range Interpretation Comments HEPATITIS A IGM ANTIBODY (BEAKER) Nonreactive Nonreactive (test code = 498) PROTEIN, RANDOM [id number] 11:03:00 Test Item Value Reference Range Interpretation Comments PROTEIN, URINE (BEAKER) (test code 191 mg/dL 0-14 H = 1569) HEMOGLOBIN [id number] 10:45:00 Test Item Value Reference Range Interpretation Comments HEMOGLOBIN A1C (BEAKER) (test code = 5.5 % 4.3-6.1 368) CREATININE, RANDOM [id number] 10:42:00 Test Item Value Reference Range Interpretation Comments CREATININE URINE (BEAKER) (test 50.7 mg/dL code = 375) Reference Range: No NormalsSODIUM, RANDOM [id number] 10:42:00 Test Item Value Reference Range Interpretation Comments SODIUM URINE (BEAKER) (test code = 48 meq/L 243) Reference Range: No NormalsBASIC METABOLIC [id number] 09:24:00 Test Item Value Reference Range Interpretation [...] NOT APPLICABLE FOR DIALYSIS PATIEN TS. CALCIUM, [id number] 09:19:00 Test Item Value Reference Range Interpretation Comments CALCIUM IONIZED (BEAKER) (test 0.93 mmol/L 1.12-1.27 L code = 698) PH, BLOOD (BEAKER) (test code = 7.20 1810) [id number] 09:13:00 Test Item Value Reference Range Interpretation Comments HAPTOGLOBIN (BEAKER) (test code = 164 mg/dL 14-258 366) [id number] 09:12:00 Test Item Value Reference Range Interpretation Comments PHOSPHORUS (BEAKER) (test code = 4.5 mg/dL 2.3-4.7 604) [id number] 09:12:00 Test Item Value Reference Range Interpretation Comments MAGNESIUM (BEAKER) (test code = 1.7 mg/dL 1.6-2.6 627) RAD, CHEST, 1 VIEW, NON [id number] 09:01:00Reason for exam:- >hypoxiaShould this be performed at the bedside?->YesFINAL REPORT AP chest HISTORY: Hypoxia COMPARISON: 04/27/2018 IMPRESSION:Suppor tive lines unchanged. Stable cardiac silhouette. Minimal perihilar atelectasis. No pneumothorax. Signed: Madeleine Santacruz MDReport Verified Date/Time: 04/28/2018 09:01:47 Reading Location: [address] Consult Reading Room PHERAL BLOOD SMEAR - HOLD [id number] 08:58:00 Test Item Value Reference Range Interpretation Comments PERIPHERAL SMEAR SAVE (BEAKER) (test saved code = 1815) RETICULOCYTE [id number] 08:58:00 Test Item Value Reference Range Interpretation Comments RETICULOCYTE COUNT PCT (BEAKER) (test 3.6 % 0.5-1.7 H code = 575) HEMOGLOBIN AND [id number] 08:52:00 Test Item Value Reference Range Interpretation Comments HEMOGLOBIN (BEAKER) (test code = 8.2 GM/DL 11.2-15.7 L 410) HEMATOCRIT (BEAKER) (test code = 24.9 % 34.1-44.9 L 411) CBC W/PLT COUNT & AUTO [id number] 07:40:00 Test Item Value Reference Range Interpretation [...] (BEAKER) Present (test code = 483) URINE [id number] 05:57:00 Test Item Value Reference Range Interpretation Comments CULTURE (BEAKER) (test code = 1095) No growth [id number] 05:00:00 Test Item Value Reference Range Interpretation Comments PHOSPHORUS (BEAKER) (test code = 4.4 mg/dL 2.3-4.7 604) [id number] 05:00:00 Test Item Value Reference Range Interpretation Comments MAGNESIUM (BEAKER) (test code = 1.6 mg/dL 1.6-2.6 627) HEMOGLOBIN AND [id number] 04:48:00 Test Item Value Reference Range Interpretation Comments HEMOGLOBIN (BEAKER) (test code = 8.0 GM/DL 11.2-15.7 L 410) HEMATOCRIT (BEAKER) (test code = 24.0 % 34.1-44.9 L 411) LIPID [id number] 03:38:00 Test Item Value Reference Range Interpretation [...] 130-159 High 160-189 Very High >=190HEPATIC FUNCTION [id number] 03:38:00 Test Item Value Reference Range Interpretation [...] 1138 U/L 125-220 H code = 635) [id number] 03:38:00 Test Item Value Reference Range Interpretation Comments LIPASE (BEAKER) (test code = 749) 525 U/L 8-78 H C-REACTIVE [id number] 03:38:00 Test Item Value Reference Range Interpretation Comments C-REACTIVE PROTEIN (BEAKER) (test 12.99 mg/dL 0.00-0.50 H code = 676) [id number] 03:23:00 Test Item Value Reference Range Interpretation Comments FIBRINOGEN LEVEL (BEAKER) (test 328 mg/dl 225-434 code = 658) [id number] 03:23:00 Test Item Value Reference Range Interpretation [...] 2.5-3.5 for patients with mechanical heart valves.PROTHROMBIN [id number] 03:22:00 Test Item Value Reference Range Interpretation Comments PROTIME (BEAKER) (test code = 16.2 seconds 11.7-14.7 H 759) INR (BEAKER) (test code = 370) 1.3 <=5.9 RECOMMENDED COUMADIN/WARFARIN INR THERAPY RANGESSTANDARD DOSE: 2.0 - 3.0 Includes: PROPHYLAXIS forvenous thrombosis, systemic embolization; TREATMENT for venous thrombosis and/or pulmonary embolus.HIGH RISK: Target INR is 2.5-3.5 for patients with mechanical heart valves.POCT-GLUCOSE [id number] 02:57:00 Test Item Value Reference Range Interpretation Comments POC-GLUCOSE METER 135 mg/dL 70-110 H TESTED AT [place] [address] ([facility]) (test code = [facility] 1538) [id number] POCT-GLUCOSE [id number] 00:21:00 Test Item Value Reference Range Interpretation Comments POC-GLUCOSE METER 177 mg/dL 70-110 H TESTED AT [place] [address] ([facility]) (test code = [facility] 1538) [id number] HEMOGLOBIN AND [id number] 00:21:00 Test Item Value Reference Range Interpretation Comments HEMOGLOBIN (LEO) (test code = 8.3 GM/DL 11.2-15.7 L 410) HEMATOCRIT (MARIA ELENA) (test code = 24.6 % 34.1-44.9 L 411) POCT-GLUCOSE [id number] 22:08:00 Test Item Value Reference Range Interpretation Comments POC-GLUCOSE METER 156 mg/dL 70-110 H TESTED AT [facility] 6720 (MARIA ELENA) (test code = RODOLFO [place] [facility] 1538) [id number] POCT-GLUCOSE [id number] 18:16:00 Test Item Value Reference Range Interpretation Comments POC-GLUCOSE METER 156 mg/dL 70-110 H TESTED AT [place] [address] ([facility]) (test code = [facility] [place] [facility] 1538) [id number] LACTATE DEHYDROGENASE (LDH)2018-04-27 16:18:00 Test Item Value Reference Range Interpretation Comments LACTATE DEHYDROGENASE (MARIA ELENA) (test 1130 U/L 125-220 H code = 635) RAD, CHEST, 1 VIEW, NON [id number] 15:58:00Reason for exam:->LIJ placementShould this be performed [...] Verified Date/Time: 04/27/2018 15:58:19 Reading Location: [address] Reading Room HEMOGLOBIN AND [id number] 15:37:00 Test Item Value Reference Range Interpretation Comments HEMOGLOBIN (AYADAKER) (test code = 8.8 GM/DL 11.2-15.7 L 410) HEMATOCRIT (MARIA ELENA) (test code = 26.1 % 34.1-44.9 L 411) PERIPHERAL BLOOD SMEAR - HOLD [id number] 14:50:00 Test Item Value Reference Range Interpretation Comments PERIPHERAL SMEAR SAVE (BEAKER) (test saved code = 1815) C-REACTIVE [id number] 12:47:00 Test Item Value Reference Range Interpretation Comments C-REACTIVE PROTEIN (BEAKER) (test 9.17 mg/dL 0.00-0.50 H code = 676) POCT-GLUCOSE [id number] 12:15:00 Test Item Value Reference Range Interpretation Comments POC-GLUCOSE METER 164 mg/dL 70-110 H TESTED AT [facility] 6720 (BEAKER) (test code = [place] 1538) [address] B-TYPE NATRIURETIC FACTOR (BNP)2018-04-27 11:37:00 Test Item Value Reference Range Interpretation Comments B-TYPE NATRIURETIC PEPTIDE (BEAKER) 176 pg/mL 0-100 H (test code = 700) HEMOGLOBIN AND [id number] 11:08:00 Test Item Value Reference Range Interpretation Comments HEMOGLOBIN (BEAKER) (test code = 8.7 GM/DL 11.2-15.7 L 410) HEMATOCRIT (BEAKER) (test code = 25.6 % 34.1-44.9 L 411) [id number] 10:07:00 Test Item Value Reference Range Interpretation Comments FERRITIN (BEAKER) (test code = 4542 ng/mL 5-275 H 361) VITAMIN [id number] 10:06:00 Test Item Value Reference Range Interpretation Comments VITAMIN B12 (BEAKER) (test code = > pg/mL 213-816 H 774) CBC W/PLT COUNT & AUTO [id number] 09:11:00 Test Item Value Reference Range Interpretation [...] 36 % 20-55 (test code = 2590) [id number] 09:03:00 Test Item Value Reference Range Interpretation Comments PHOSPHORUS (BEAKER) (test code = 4.2 mg/dL 2.3-4.7 604) LACTIC ACID, VENOUS, WHOLE [id number] 09:00:00 Test Item Value Reference Range Interpretation Comments LACTATE BLOOD VENOUS (2) (BEAKER) 1.0 mmol/L 0.5-2.2 (test code = 2872) Effective 12/15/2015: Units/Reference Range ChangeNew: 0.5-2.2 mmol/L Previous: 5-20 mg/dLHEMOGLOBIN [id number] 08:35:00 Test Item Value Reference Range Interpretation Comments HEMOGLOBIN A1C (BEAKER) (test code = 5.0 % 4.3-6.1 368) U/S, ABDOMINAL, [id number] 07:57:00Abdomen limited area? Add comment if clarification [...] MDReport Verified Date/Time: 04/27/2018 07:57:35 Reading Location: [address] Consult Reading Room [id number] 07:07:00 Test Item Value Reference Range Interpretation Comments MAGNESIUM (BEAKER) (test code = 1.8 mg/dL 1.6-2.6 627) LACTIC ACID, VENOUS, WHOLE [id number] 07:05:00 Test Item Value Reference Range Interpretation Comments LACTATE BLOOD VENOUS 1.1 mmol/L 0.5-2.2 Specime n slightly (2) (BEAKER) (test hemolyzed code = 2872) Effective 12/15/2015: Units/Reference Range ChangeNew: 0.5-2.2 mmol/L Previous: 5-20 mg/dLHEMOGLOBIN AND [id number] 06:54:00 Test Item Value Reference Range Interpretation Comments HEMOGLOBIN (BEAKER) (test code = 9.0 GM/DL 11.2-15.7 L 410) HEMATOCRIT (BEAKER) (test code = 26.7 % 34.1-44.9 L 411) POCT-GLUCOSE [id number] 06:28:00 Test Item Value Reference Range Interpretation Comments POC-GLUCOSE METER 122 mg/dL 70-110 H TESTED AT [facility] 6720 (BEAKER) (test code = [place] 1538) [address] [id number] 05:17:00 Test Item Value Reference Range Interpretation Comments AMMONIA (BEAKER) (test code = 348) 40 mol/L 18-72 POCT-GLUCOSE [id number] 04:46:00 Test Item Value Reference Range Interpretation Comments POC-GLUCOSE METER 166 mg/dL 70-110 H TESTED AT [facility] 6720 (BEAKER) (test code = [place] 1538) [address] BLOOD GAS, [id number] 04:15:00 Test Item Value Reference Range Interpretation [...] (test code = 1819) 32 URINALYSIS W/ [id number] 01:36:00 Test Item Value Reference Range Interpretation [...] 1584) SOURCE(BEAKER) (test code = Urine, [place] 1911) HEMOGLOBIN AND [id number] 01:19:00 Test Item Value Reference Range Interpretation Comments HEMOGLOBIN (BEAKER) (test code = 9.0 GM/DL 11.2-15.7 L 410) HEMATOCRIT (BEAKER) (test code = 26.3 % 34.1-44.9 L 411) [id number] 00:57:00 Test Item Value Reference Range Interpretation Comments PHOSPHORUS (BEAKER) (test code = 0.7 mg/dL 2.3-4.7 LL 604) COMPREHENSIVE METABOLIC [id number] 00:55:00 Test Item Value Reference Range Interpretation [...] APPLICABLE FOR DIALYSIS PATIEN TS. Specimen slightly [id number] 00:53:00 Test Item Value Reference Range Interpretation Comments MAGNESIUM (BEAKER) (test code = 1.9 mg/dL 1.6-2.6 627) LIPID [id number] 00:53:00 Test Item Value Reference Range Interpretation [...] 160-189 Very High >=190 Specimen slightly ictericCALCIUM, [id number] 00:50:00 Test Item Value Reference Range Interpretation Comments CALCIUM IONIZED (BEAKER) (test 1.02 mmol/L 1.12-1.27 L code = 698) PH, BLOOD (BEAKER) (test code = 7.31 1810) LACTIC ACID, VENOUS, WHOLE [id number] 00:47:00 Test Item Value Reference Range Interpretation Comments LACTATE BLOOD VENOUS (2) (BEAKER) 3.6 mmol/L 0.5-2.2 H (test code = 2872) Effective 12/15/2015: Units/Reference Range ChangeNew: 0.5-2.2 mmol/L Previous: 5-20 mg/dLCBC W/PLT COUNT & AUTO [id number] 00:40:00 Test Item Value Reference Range Interpretation [...] Neutrophilic inclusions seen.RAD, CHEST, 1 VIEW, NON [id number] 00:24:00Reason for exam:->sob, coughShould this be performed [...] MDReport Verified Date/Time: 04/27/2018 00:24:54 Reading Location: [facility] C013Y CT Body Reading Room PROTHROMBIN [id number] 23:51:00 Test Item Value Reference Range Interpretation Comments PROTIME (BEAKER) (test code = 15.5 seconds 11.7-14.7 H 759) INR (BEAKER) (test code = 370) 1.2 <=5.9 RECOMMENDED COUMADIN/WARFARIN INR THERAPY RANGESSTANDARD DOSE: 2.0 - 3.0 Includes: PROPHYLAXIS forvenous thrombosis, systemic embolization; TREATMENT for venous thrombosis and/or pulmonary embolus.HIGH RISK: Target INR is 2.5-3.5 for patients with mechanical heart valves.[id number] 23:51:00 Test Item Value Reference Range Interpretation Comments FIBRINOGEN LEVEL (MARIA ELENA) (test 231 mg/dl 225434 code = 658)
[2021-10-14] MEDS ORDERED: ONDANSETRON 4 MG/2 ML VIAL ONE (11:09)
[2021-10-14] MEDS ORDERED: MORPHINE 4 MG/ML SYR ONE ×2 (11:09→13:29)
[2021-10-14] MEDS ORDERED: NA CHLORIDE 0.9% 500 ML ONE (11:10)
[2021-10-14 11:20] LABS: Absolute Lymphocytes (CBC) 1.8 K/uL (0.7-4.9); Hematocrit 40.2 % (36.0-45.0); MPV 7.1 fL (7.6-11.3); RBC Red Blood Cell Count 4.56 M/uL (3.86-4.86)
--- NOTE | 2021-10-14 11:39 | RAD REPORT ---
EXAM DESCRIPTION: RAD - Chest Single View - 10/14/2021 11:26 am CLINICAL HISTORY: PAIN COMPARISON: Abdomen 1 View (KUB) dated 10/03/2021; Abdomen 1 View (KUB) dated 10/02/2021; Chest Single View dated 10/01/2021; Chest Single View dated 08/26/2021 FINDINGS: Lines: None. Lungs: No evidence of edema or pneumonia. New linear opacity in the right upper lobe likely represent ing subsegmental atelectasis. Pleural: No significant pleural effusions or pneumothorax. Cardiac: The heart size is within normal limits. Bones: No acute fractures. Other: IMPRESSION: No acute cardiopulmonary disease.
[2021-10-14 11:56] LABS: Protime INR 0.93
[2021-10-14] MEDS ORDERED: CEFTRIAXONE 1000 MG/VIAL ONE (12:04)
--- NOTE | 2021-10-14 12:09 | EDPHYS ---
Physician Documentation [facility] Name: Madelaine Leonard Age: 61 yrs Sex: Female : 1960 Arrival Date: 10/14/2021 Time: 09:46 Bed 30 Private MD: NARGIS Physician Rei Medellin HPI: 10/14 11:59 This 61 yrs old Female presents to ER via EMS with complaints of shaking and jessie multiple falls. 11:59 Trauma demographics: County: The injury occurred in [place] Location of Injury: The jessie injury occurred at home. Mechanism of injury: Fall: the patient fell from a standing position. Associated injuries: The patient sustained injury to the head, injury to the chest, contusion. Onset: The symptoms/episode began/occurred 3 day(s) ago. The patient's problem is reported as difficulty walking, off balance, weakness. Duration: The episode is continuous. Context: the episode(s) was witnessed, by family, occurred at home. The symptoms are alleviated by nothing. The symptoms are aggravated by walking. weak and shaking, multiple falls, long hx of copd. Historical: - Allergies: 09:48 Latex, Natural Rubber; ww 09:48 Levofloxacin; ww 09:48 Naproxen Sodium; ww 09:48 PENICILLINS; ww - PMHx: 09:48 Chronic pain; Fibromyalgia; Hernia; Hypertensive disorder; ww - PSHx: 09:48 Total abdominal hysterectomy; Repair of inguinal hernia; ww - Immunization history:: Adult Immunizations not immunized. - Social history:: Smoking status: Patient reports the use of cigarette tobacco products, smokes one-half pack cigarettes per day. - Family history:: not pertinent. ROS: 11:59 Constitutional: Negative for fever, chills, and weight loss, Eyes: Negative for injury, jessie pain, redness, and discharge, ENT: Negative for injury, pain, and discharge, Neck: Negative for injury, pain, and swelling, Cardiovascular: Negative for chest pain, palpitations, and edema, Abdomen/GI: Negative for abdominal pain, nausea, vomiting, diarrhea, and constipation, Back: Negative for injury and pain, : Negative for injury, bleeding, discharge, and swelling, MS/Extremity: Negative for injury and deformity, Skin: Negative for injury, rash, and discoloration, Neuro: Negative for headache, weakness, numbness, tingling, and seizure, Psych: Negative for depression, anxiety, suicide ideation, homicidal ideation, and hallucinations, Allergy/Immunology: Negative for hives, rash, and allergies, Endocrine: Negative for neck swelling, polydipsia, polyuria, polyphagia, and marked weight changes, Hematologic/Lymphatic: Negative for swollen nodes, abnormal bleeding, and unusual bruising. 11:59 Respiratory: Positive for cough, with no reported sputum, shortness of breath, at rest. Exam: 11:59 Constitutional: This is a well developed, well nourished patient who is awake, alert, jessie and in no acute distress. Head/Face: Normocephalic, atraumatic. Eyes: Pupils equal round and reactive to light, extra-ocular motions intact. Lids and lashes normal. Conjunctiva and sclera are non-icteric and not injected. Cornea within normal limits. Periorbital areas with no swelling, redness, or edema. ENT: Nares patent. No nasal discharge, no septal abnormalities noted. Tympanic membranes are normal and external auditory canals are clear. Oropharynx with no redness, swelling, or masses, exudates, or evidence of obstruction, uvula midline. Mucous membranes moist. Neck: Trachea midline, no thyromegaly or masses palpated, and no cervical lymphadenopathy. Supple, full range of motion without nuchal rigidity, or vertebral point tenderness. No Meningismus. Chest/axilla: Normal chest wall appearance and motion. Nontender with no deformity. No lesions are appreciated. Cardiovascular: Regular rate and rhythm with a normal S1 and S2. No gallops, murmurs, or rubs. Normal PMI, no JVD. No pulse deficits. Abdomen/GI: Soft, non-tender, with normal bowel sounds. No distension or tympany. No guarding or rebound. No evidence of tenderness throughout. Back: No spinal tenderness. No costovertebral tenderness. Full range of motion. Female : Normal external genitalia. Skin: Warm, dry with normal turgor. Normal color with no rashes, no lesions, and no evidence of cellulitis. MS/ Extremity: Pulses equal, no cyanosis. Neurovascular intact. Full, normal range of motion. Neuro: Awake and alert, GCS 15, oriented to person, place, time, and situation. Cranial nerves II-XII grossly intact. Motor strength 5/5 in all extremities. Sensory grossly intact. Cerebellar exam normal. Normal gait. 11:59 Chest/axilla: Inspection: normal, Palpation: is normal, tenderness, that is mild, Axilla: no acute changes, Breasts: are normal, Lymph nodes: lymphadenopathy is not appreciated. 11:59 ECG was reviewed by the Attending Physician. 11:59 Respiratory: mild respiratory distress is noted, Respirations: labored breathing, is not present, Breath sounds: bronchial sounds, that are mild, are scattered, decreased breath sounds, that are mild, rhonchi, that are moderate, are scattered, stridor, is not appreciated, + upper airway congestion. wheezing: inspiratory expiratory is heard diffusely. Vital Signs: 09:46 BP 162 / 92; Pulse 90; Resp 18; Pulse Ox 99% on 4 lpm NC; Weight 68.04 kg; Height 5 ft. ww 3 in. (160.02 cm); Pain 10/10; 10:21 BP 166 / 81; Pulse 86; Resp 16; Pulse Ox 99% on 5 lpm NC; ab2 11:16 BP 151 / 80; Pulse 83; Resp 18; Pulse Ox 96% on 2 lpm NC; ab2 12:15 BP 147 / 77; Pulse 82; Resp 16; Pulse Ox 98% on 2 lpm NC; ab2 13:31 BP 150 / 89; Pulse 83; Resp 16; Pulse Ox 96% on 2 lpm NC; Pain 10/10; ab2 14:17 BP 138 / 64; Pulse 88; Resp 16; Pulse Ox 96% on R/A; ab2 15:32 BP 136 / 78; Pulse 84; Resp 16; Pulse Ox 94% on R/A; ab2 09:46 Body Mass Index 26.57 (68.04 kg, 160.02 cm) ww MDM: 10:38 Patient medically screened. jessie 12:04 Differential diagnosis: intra-abdominal injury, closed head injury, cardiac contusion, jessie CVA, TIA, Blunt Chest Trauma Chest Wall Contusion Chest Wall Injury. Data reviewed: vital signs, nurses notes, lab test result(s), EKG, radiologic studies, CT scan, plain films. Data interpreted: classroom monitor: rate is 83 beats/min, rhythm is regular, Pulse oximetry: on room air is 96 %. Test interpretation: by ED physician or midlevel provider: ECG, plain radiologic studies. 10/14 10:40 Order name: Basic Metabolic Panel [facility] 10/14 10:40 Order name: CBC with Diff [facility] 10/14 10:40 Order name: LFT's 10/14 10:40 Order name: Magnesium; Complete Time: 12:42 [facility] 10/14 10:40 Order name: NT PRO-BNP; Complete Time: 12:42 [facility] 10/14 10:40 Order name: PT-INR; Complete Time: 11:57 [facility] 10/14 10:40 Order name: Troponin HS; Complete Time: 12:42 [facility] 10/14 10:40 Order name: XRAY Chest (1 view); Complete Time: 11:57 [facility] 10/14 10:40 Order name: Urine Culture [facility] 10/14 10:40 Order name: Basic Metabolic Panel; Complete Time: 12:42 [facility] 10/14 10:40 Order name: CBC with Automated Diff; Complete Time: 11:57 [facility] 10/14 10:40 Order name: Liver (Hepatic) Function; Complete Time: 12:42 [facility] 10/14 11:45 Order name: SARS-COV-2 RT PCR (Document "Date of Onset" if Symptomatic); Complete Time: [facility] 13:26 10/14 14:57 Order name: Urine Dipstick-Ancillary; Complete Time: 18:45 [facility] 10/14 10:40 Order name: EKG; Complete Time: 10:40 [facility] 10/14 10:40 Order name: Cardiac monitoring; Complete Time: 11:15 [facility] 10/14 10:40 Order name: EKG - Nurse/Tech; Complete Time: 11:15 [facility] 10/14 10:40 Order name: IV Saline Lock; Complete Time: 11:15 [facility] 10/14 10:40 Order name: Labs collected and sent; Complete Time: 11:36 [facility] 10/14 10:40 Order name: O2 Per Protocol; Complete Time: 11:15 [facility] 10/14 10:40 Order name: O2 Sat Monitoring; Complete Time: 11:15 [facility] 10/14 10:40 Order name: INCENTIVE SPIROMETRY [facility] 10/14 11:43 Order name: CT Traumagram (Head C Spine CAP W Con); Complete Time: 13:35 [facility] 10/14 14:10 Order name: Brain W/Wo Cont; Complete Time: 18:45 [facility] 10/14 14:40 Order name: CONS Physician Consult [facility] 10/14 10:40 Order name: Urine Dipstick-Ancillary (obtain specimen); Complete Time: 14:58 jessie 10/14 19:20 Order name: C-Collar; Complete Time: 19:20 la1 EC:59 Rate is 79 beats/min. Rhythm is regular. QRS [place] is Normal. FL interval is normal. QRS jessie interval is normal. QT interval is normal. No Q waves. T waves are Normal. No ST changes noted. Clinical impression: NSR w/ Non-specific ST/T Changes and No evidence of ischemia. Interpreted by me. Reviewed by me. Administered Medications: 11:14 Drug: morphine 2 mg Route: IVP; Site: left wrist; ab2 11:37 Follow up: Response: No adverse reaction ab2 11:14 Drug: Zofran (Ondansetron) 4 mg Route: IVP; Site: left wrist; ab2 11:36 Follow up: Response: No adverse reaction ab2 11:15 Drug: NS 0.9% 500 ml Route: IV; Rate: bolus; Site: left wrist; ab2 12:05 Drug: Rocephin (cefTRIAXone) 1 grams Route: IV; Rate: per protocol; Site: left wrist; ab2 13:35 Drug: morphine 2 mg Route: IVP; Site: left wrist; ab2 Disposition Summary: 10/14/21 19:24 Transfer Ordered Transfer Location: [facility] jessie Reason: Higher level of care jessie Condition: Fair(10/14/21 19:24) jessie Problem: new(10/14/21 19:24) jessie Symptoms: have improved(10/14/21 19:24) jessie Accepting Physician: TO OSMEL LASSITER(10/14/21 19:28) la1 Diagnosis - Repeated falls(10/14/21 19:24) jessie - Contusion of left back wall of thorax(10/14/21 19:24) jessie - Contusion of back wall of thorax(10/14/21 19:24) jessie - Ataxia, unspecified(10/14/21 19:24) jessie - Abnormal reflex jessie - Strain of muscle, fascia and tendon at neck level, initial encounter jessie - COPD/ Chronic obstructive pulmonary disease, unspecified jessie Forms: - Medication Reconciliation Form jessie - SBAR form jessie Signatures: Dispatcher [employer] EDRei Rinaldi MD MD cha Attema, Lee, POLITICAL RESEARCH SCIENTIST-C POLITICAL RESEARCH SCIENTIST-Cla1 [place] Thomas Evan, PA PA ej Wood, Whitney, RN RN Grady Chiang2 Corrections: (The following items were deleted from the chart) 11:47 10:40 Chest Abdomen Pelvis W Con+CT.RAD.BRZ ordered. EDMS EDMS 15:22 12:08 jessie eb 19:18 12:08 Observation jessie jessie 19:18 12:08 Cali Catherine jessie jessie 19:18 12:08 Telemetry/MedSurg (observation) jessie jessie 19:18 12:08 Stable jessie jessie 19:18 12:08 new jessie jessie 19:18 12:08 have improved jessie jessie 19:18 12:08 Standard jessie jessie 19:18 12:08 Repeated falls jessie jessie 19:18 12:08 Contusion of back wall of thorax jessie jessie 19:18 12:08 Contusion of left back wall of thorax jessie jessie 19:18 12:08 Ataxia, unspecified jessie jessie 19:18 12:08 Weakness jessie jessie 19:18 15:22 211 eb jessie 19:28 19:24 TO OSMEL LASSITER jessie la1
--- NOTE | 2021-10-14 12:09 | ER ---
Nurse's Notes [facility] Name: Madelaine Leonard Age: 61 yrs Sex: Female : 1960 Arrival Date: 10/14/2021 Time: 09:46 Bed 30 Private MD: Diagnosis: Repeated falls;Contusion of left back wall of thorax;Contusion of back wall of thorax;Ataxia, unspecified;Abnormal reflex;Strain of muscle, fascia and tendon at neck level, initial encounter;COPD/ Chronic obstructive pulmonary disease, unspecified Presentation: 10/14 09:46 Chief complaint: Patient states: Walking and fell on her TV cage and landed on left rib ww cage. Yesterday fell and hit the back of her head on her couch. Developed tremors 2 days ago. Coronavirus screen: Client denies travel out of the [place] in the last 14 days. Ebola Screen: Patient denies travel to an Ebola-affected area in the 21 days before illness onset. Initial Sepsis Screen: Does the patient meet any 2 criteria? No. Patient's initial sepsis screen is negative. Does the patient have a suspected source of infection? No. Patient's initial sepsis screen is negative. Risk Assessment: Do you want to hurt yourself or someone else? Patient reports no desire to harm self or others. Onset of symptoms was October 14, 2021. 09:46 Method Of Arrival: EMS 09:46 Acuity: DEV 3 ww Triage Assessment: 09:48 General: Appears uncomfortable, Behavior is cooperative. Pain: Complains of pain in ww anterior aspect of left upper chest, diaphragm and left breast. EENT: No signs and/or symptoms were reported regarding the EENT system. Neuro: Level of Consciousness is awake, alert, obeys commands, Oriented to person, place, time, situation. Cardiovascular: Capillary refill < 3 seconds Patient's skin is warm and dry. Respiratory: Airway is patent Respiratory effort is even, unlabored, Respiratory pattern is regular, symmetrical. GI: : No signs and/or symptoms were reported regarding the genitourinary system. Historical: - Allergies: 09:48 Latex, Natural Rubber; ww 09:48 Levofloxacin; ww 09:48 Naproxen Sodium; ww 09:48 PENICILLINS; ww - PMHx: 09:48 Chronic pain; Fibromyalgia; Hernia; Hypertensive disorder; ww - PSHx: 09:48 Total abdominal hysterectomy; Repair of inguinal hernia; ww - Immunization history:: Adult Immunizations not immunized. - Social history:: Smoking status: Patient reports the use of cigarette tobacco products, smokes one-half pack cigarettes per day. - Family history:: not pertinent. Screenin:49 Abuse screen: Denies threats or abuse. Denies injuries from another. Nutritional ww screening: No deficits noted. Tuberculosis screening: No symptoms or risk factors identified. 10:08 Fall Risk Fall in past 12 months (25 points). No secondary diagnosis (0 pts). No IV (0 ab2 pts). Ambulatory Aid- None/Bed Rest/Nurse Assist (0 pts). Gait- Weak (10 pts.). Mental Status- Oriented to own ability (0 pts). Total Poole Fall Scale indicates Low Risk Score (25-44 pts). Fall prevention measures have been instituted. Side Rails Up X 2 Placed close to Nursing Station Frequent Obs/Assesments occuring As available Patient and Family Educated on Fall Prevention Program and strategies. Assessment: 10:06 General: Appears in no apparent distress. uncomfortable, Behavior is calm, cooperative, ab2 appropriate for age. Pain: Complains of pain in left lateral posterior chest and left lateral anterior chest Pain currently is 10 out of 10 on a pain scale. Neuro: Level of Consciousness is awake, alert, obeys commands, Oriented to person, place, time, situation, Appropriate for age Hide And Skin Processing Worker are equal bilaterally Moves all extremities. Gait is unsteady, Speech is normal. Cardiovascular: Reports None Denies chest pain, shortness of breath, Heart tones S1 S2 present Patient's skin is warm and dry. Respiratory: Airway is patent Respiratory effort is even, unlabored, Respiratory pattern is regular, symmetrical, Breath sounds are clear bilaterally. GI: No deficits noted. No signs and/or symptoms were reported involving the gastrointestinal system. Abdomen is round non-distended, Bowel sounds present X 4 quads. : No deficits noted. No signs and/or symptoms were reported regarding the genitourinary system. EENT: No deficits noted. No signs and/or symptoms were reported regarding the EENT system. Derm: No deficits noted. No signs and/or symptoms reported regarding the dermatologic system. Skin is fragile, is thin, Bruising that is green, on left eye and left lutheran. Injury Description: Pt fell into couch hurting left side ribs. 11:45 Reassessment: Patient appears in no apparent distress at this time. No changes from ab2 previously documented assessment. Awaiting results for disposition. 13:33 Reassessment: Patient appears in no apparent distress at this time. Patient given warm ab2 blankets and repositioned for comfort. Pt given a sand which with pudding and a ela tara. Denies any further needs. Awaiting room for admission. 14:17 Reassessment: Patient appears in no apparent distress at this time. Pt is resting ab2 comfortably, denies any needs. Awaiting room for admission. 14:58 Reassessment: Patient appears in no apparent distress at this time. Pt urinated in ab2 bedpan and a linen change was completed and patient was placed into a hospital gown. Vital Signs: 09:46 BP 162 / 92; Pulse 90; Resp 18; Pulse Ox 99% on 4 lpm NC; Weight 68.04 kg; Height 5 ft. ww 3 in. (160.02 cm); Pain 10/10; 10:21 BP 166 / 81; Pulse 86; Resp 16; Pulse Ox 99% on 5 lpm NC; ab2 11:16 BP 151 / 80; Pulse 83; Resp 18; Pulse Ox 96% on 2 lpm NC; ab2 12:15 BP 147 / 77; Pulse 82; Resp 16; Pulse Ox 98% on 2 lpm NC; ab2 13:31 BP 150 / 89; Pulse 83; Resp 16; Pulse Ox 96% on 2 lpm NC; Pain 10/10; ab2 14:17 BP 138 / 64; Pulse 88; Resp 16; Pulse Ox 96% on R/A; ab2 15:32 BP 136 / 78; Pulse 84; Resp 16; Pulse Ox 94% on R/A; ab2 09:46 Body Mass Index 26.57 (68.04 kg, 160.02 cm) ED Course: 09:46 Patient arrived in ED. em1 09:48 Triage completed. ww 09:48 Arm band placed on right wrist. ww 09:49 Grady Earl is Primary Nurse. ab2 10:08 Patient has correct armband on for positive identification. Bed in low position. Call ab2 light in reach. Side rails up X2. 10:08 No provider procedures requiring assistance completed. ab2 10:38 Rei Medellin MD is Attending Physician. jessie 11:11 EKG done, by ED staff, reviewed by Rei Medellin MD. mb7 11:14 Inserted saline lock: 22 gauge in left forearm, using aseptic technique. Blood em1 collected. 11:23 CBC with Diff Sent. ab2 11:26 XRAY Chest (1 view) In Process Unspecified. EDMS 11:36 Troponin HS Sent. ab2 11:36 PT-INR Sent. ab2 11:36 NT PRO-BNP Sent. ab2 11:36 Magnesium Sent. ab2 11:39 LFT's Sent. ab2 11:39 Basic Metabolic Panel Sent. ab2 12:05 SARS-COV-2 RT PCR (Document "Date of Onset" if Symptomatic) Sent. ab2 12:07 Cali Catherine MD is Hospitalizing Provider. jessie 12:51 CT Traumagram (Head C Spine CAP W Con) In Process Unspecified. EDMS 14:58 Urine Culture Sent. ab2 15:59 Report given to camryn Boykin RN. ab2 19:16 Primary Nurse role handed off by Grady Earl iw Administered Medications: 11:14 Drug: morphine 2 mg Route: IVP; Site: left wrist; ab2 11:37 Follow up: Response: No adverse reaction ab2 11:14 Drug: Zofran (Ondansetron) 4 mg Route: IVP; Site: left wrist; ab2 11:36 Follow up: Response: No adverse reaction ab2 11:15 Drug: NS 0.9% 500 ml Route: IV; Rate: bolus; Site: left wrist; ab2 12:05 Drug: Rocephin (cefTRIAXone) 1 grams Route: IV; Rate: per protocol; Site: left wrist; ab2 13:35 Drug: morphine 2 mg Route: IVP; Site: left wrist; ab2 Outcome: 12:08 Decision to Hospitalize by Provider. jessie 16:00 Admitted to Med/surg accompanied by tech, via stretcher, with oxygen, with chart. ab2 16:00 Condition: stable 16:00 Patient left the ED. ab2 19:24 ER care complete, transfer ordered by . jessie 19:28 Patient left the ED. la1 Signatures: Dispatcher [employer] EDRei Rinaldi MD MD jessie Benji, Bria, RN RN Rohan Zapien em1 Jose Lechuga, OPERATIONS DIRECTOR-C OPERATIONS DIRECTOR-Cla1 Keira Brizuela 7 Jovanna Yo, Grady Hamlin RN ab2 Corrections: (The following items were deleted from the chart) 13:33 10:21 BP 166 / 81; Pulse 86bpm; Resp 16bpm; Pulse Ox 99% RA; ab2 ab2 13:33 13:31 BP 150 / 89; Pulse 83bpm; Resp 16bpm; Pulse Ox 96% RA; Pain 10/10; ab2 ab2
[2021-10-14 12:30] LABS: ALT/SGPT 16 U/L (12-78); Albumin 3.4 g/dL (3.4-5.0); Alkaline Phosphatase 67 U/L (45-117); BUN Blood Urea Nitrogen 11 mg/dL (7-18); Bicarbonate 30 mmol/L (21-32); Bilirubin Total 0.4 mg/dL (0.2-1.0); Glucose Level 91 mg/dL (74-106); Protein, Total 7.2 g/dL (6.4-8.2); Sodium Level 137 mmol/L (136-145)
[2021-10-14 12:31] LABS: NT PRO-BNP 58 pg/mL (<125)
[2021-10-14 12:32] LABS: AST/SGOT 15 U/L (15-37); Bilirubin Direct < 0.1 mg/dL (0-0.2); Potassium 3.7 mmol/L (3.5-5.1)
--- NOTE | 2021-10-14 13:33 | RAD REPORT ---
EXAM DESCRIPTION: CT - Head C Spine Cap [place] Strickland - 10/14/2021 12:51 pm CLINICAL HISTORY: Head and neck injury with chest and abdominal pain status post fall. Head and neck pain . TECHNIQUE: Computed axial tomography of the head and cervical spine was obtained Computed axial tomography of the chest, abdomen and pelvis was obtained. 100 cc Isovue-300 was given intravenously coronal and sagittal reconstruction was performed. All CT scans are performed using dose optimization technique as appropriate and may include automated exposure control or mA/KV adjustment according to patient size. COMPARISON: 2019 FINDINGS: An intracranial bleed is not seen. The ventricles are normal in caliber. An extra-axial fl uid collection is not noted. Fluid within the sinuses is not seen Mildly depressed left orbital floor fracture with herniation of fat into the left maxillary sinus. r is present within the left orbit and the left cheek. Stable 16 millimeter soft tissue mass anterior left posterior cranial fossa abuts the petrous bone. T his may represent a meningioma. Nonemergent MRI recommended A cervical fracture is not seen. No dislocation is seen. A mediastinal hematoma is not noted. A pleural effusion is not present. A lung contusion is not seen. The liver, spleen, pancreas, adrenals, kidneys and bladder do not demonstrate a traumatic injury IMPRESSION: No acute intracranial abnormality is seen Mildly depressed left orbital floor fracture with herniation fat into left maxillary sinus A cervical fracture is not visualized. No traumatic injury involving the chest, abdomen or pelvis is seen.
[2021-10-14 14:58] LABS: Urine Blood Negative (Negative); Urine Glucose Negative (Negative); Urine Protein 1+ (Negative)
--- NOTE | 2021-10-14 15:09 | P.HP ---
Certification for Inpatient Patient admitted to: Observation With expected LOS: <2 Midnights Patient will require the following post-hospital care: None Practitioner: I am a practitioner with admitting privileges, knowledge of patient current condition, hospital course, and medical plan of care. Services: Services provided to patient in accordance with Admission requirements found in Title 42 Section 412.3 of the Code of Federal Regulations Patient History Date of Service: 10/14/21 Reason for admission: recurrent falls History of Present Illness: Ms. Leonard is a 61 yo F with HTN, fibromyalgia, chronic pain, COPD, CHF, alcohol use disorder who presents with recurrent falls. She typically falls 1 or 2 times a . On Sunday, she fell and hit her head on a coffee table. She was admitted to [facility] for an orbital floor fracture and was cleared by ophthamology with no surgical intervention. Yesterday, she said she fell seven times which is more than normal. This morning she fell four times so decided to report to the ED. She says when she tries to walk she 'shakes'. She says she feels off balance and her legs just give out. She drinks ~6 shots of vodka multiple times a week for several years. Labs unremarkable. Imaging review below. Patient admitted for MRI and observation. CT Traumogram IMPRESSION: No acute intracranial abnormality is seen Mildly depressed left orbital floor fracture with herniation fat into left maxillary sinus A cervical fracture is not visualized. No traumatic injury involving the chest, abdomen or pelvis is seen. CXR IMPRESSION: No acute cardiopulmonary disease. Allergies Latex, Natural Rubber Allergy (Verified 09/22/14 15:47) Hives/Rash levofloxacin [From Levaquin] Allergy (Verified 09/22/14 15:37) Itching Penicillins Allergy (Verified 09/22/14 15:37) Hives naproxen sodium [From Aleve] Adverse Reaction (Verified 09/22/14 15:37) Nausea/Vomiting Home Medications: Gabapentin [Neurontin*] 800 mg PO TID 09/22/14 Metaxalone 800 mg PO QID 04/26/18 Atorvastatin Calcium 40 mg PO DAILY 12/29/20 Venlafaxine HCl 37.5 mg PO DAILY WITH BREAKFAST 12/29/20 Fluticasone/Umeclidin/Vilanter [Trelegy Ellipta 100-62.5-25] 1 each IH DAILY #30 blst.w.dev 12/31/20 Albuterol Neb [Proventil 0.083% Neb Soln] 2.5 mg NEB [id number] PRN amp 01/11/21 Amlodipine [Norvasc*] 10 mg PO DAILY tab 01/11/21 Quetiapine Fumarate [Seroquel] 50 mg PO Q12H #60 tablet 10/05/21 Zolpidem Tartrate [Ambien] 10 mg PO BEDTIME PRN #15 tablet 10/05/21 - Past Medical/Surgical History Diabetic: No -: chronic pain -: COPD -: HTN -: CHF, cardiomegaly -: Fibro myalgia -: alcohol use disorder -: R upper lobectomy -: multiple hernia surgeries -: multiple abdominal surgeries Psychosocial/ Personal History: Lives at home - Family History Father -: Heart disease, Hypertension Notes: Mother -: Heart disease, Lung disease, Cancer Notes: Brother -: Heart disease, Hypertension, Lung disease Notes: - Social History Alcohol use: No CD- Drugs: No Caffeine use: Yes Place of Residence: Home Review of Systems 10-point ROS is otherwise unremarkable General: Weakness, Malaise Eyes: Pain, As per HPI ENT: Unremarkable Respiratory: Unremarkable Cardiovascular: Unremarkable Gastrointestinal: Unremarkable Genitourinary: Unremarkable Musculoskeletal: As per HPI Integumentary: Bruising Neurological: Weakness, Incoordination, As per HPI Lymphatics: Unremarkable Physical Examination - Physical Exam General: Alert, In no apparent distress, Oriented x3, Obese HEENT: Atraumatic, PERRLA, Mucous membr. moist/pink, Other (ecchymosis to left eye ), EOMI, Sclerae nonicteric Neck: Supple, 2+ carotid pulse no bruit, No LAD, Without JVD or thyroid abnormality Respiratory: Normal air movement Cardiovascular: No edema, Regular rate/rhythm, Normal S1 S2 Gastrointestinal: Normal bowel sounds, No tenderness, Other (multiple abdominal hernias ) Musculoskeletal: Tenderness Integumentary: No rashes Neurological: Normal speech, Normal strength at 5/5 x4 extr, Normal tone, Sensation intact, Normal affect, Abnormal gait Lymphatics: No axilla or inguinal lymphadenopathy - Studies Laboratory Data (last 24 hrs) 10/14/21 11:37: PT 10.7, INR 0.93 10/14/21 11:37: Sodium 137, Potassium 3.7, BUN 11, Creatinine 0.52 L, Glucose 91, Magnesium 2.0, Total Bilirubin 0.4, AST 15, ALT 16, Alkaline Phosphatase 67 10/14/21 11:10: WBC 7.20 D, Hgb 13.4, Hct 40.2, Plt Count 229 Assessment and Plan - Problems (Diagnosis) (1) Recurrent falls Current Visit: Yes Status: Acute (2) Alcohol abuse Current Visit: No Status: Chronic (3) CHF (congestive heart failure) Current Visit: No Status: Chronic Qualifiers: Heart failure type: unspecified Heart failure chronicity: unspecified Qualified Code(s): I50.9 - Heart failure, unspecified (4) COPD (chronic obstructive pulmonary disease) Current Visit: No Status: Chronic Qualifiers: COPD type: unspecified COPD Qualified Code(s): J44.9 - Chronic obstructive pulmonary disease, unspecified (5) Chronic pain syndrome Current Visit: No Status: Chronic (6) Tobacco abuse Current Visit: No Status: Chronic - Plan neurology consulted MRI brain pending continue IV folic acid, thiamine, and MVI alcohol withdrawal protocol, PRN librium and ativan UDS, serum alcohol, ammonia pending PT consulted reconcile and continue home medications DVT ppx Discharge Plan: Home Plan to discharge in: 24 Hours - Advance Directives Does patient have a Living Will: No Does patient have a Durable POA for Healthcare: No - Code Status/Comfort Care Code Status Assessed: Yes (full code ) Critical Care: No Time Spent Managing Pts Care (In Minutes): 70
[2021-10-14] MEDS ORDERED: FOLIC ACID 5 MG/ML VIAL IVP ONE (16:24)
[2021-10-14] MEDS ORDERED: ONDANSETRON 4 MG/2 ML VIAL IV PRN (16:24)
[2021-10-14] MEDS ORDERED: ACETAMINOPHEN 500 MG TAB PO PRN (16:24)
[2021-10-14] MEDS ORDERED: chlordiazePOXIDE HCl 5 MG CAP PO PRN (16:24)
[2021-10-14] MEDS ORDERED: LORazepam 2 MG/ML VIAL IV PRN (16:24)
[2021-10-14] MEDS ORDERED: HYDRALAZINE HCL 20 MG/ML VIAL IV PRN (16:24)
[2021-10-14] MEDS ORDERED: MULTIVITAMIN TAB PO ONE (16:30)
[2021-10-14] MEDS ORDERED: THIAMINE 200 MG/2 ML INJ IVP ONE (17:00)
[2021-10-14] MEDS ORDERED: FOLIC ACID 1 MG in NA CHLORIDE 0.9% 50 ML IV ONE (17:00)
[2021-10-14] MEDS ORDERED: MORPHINE 4 MG/ML SYR IV PRN (17:11)
--- NOTE | 2021-10-14 17:31 | RAD REPORT ---
EXAM DESCRIPTION: MRI - Brain W/Wo Cont - 10/14/2021 5:08 pm CLINICAL HISTORY: Fall with head injury. Left-sided weakness COMPARISON: head CT October 14, 2021 TECHNIQUE: Axial, sagittal, and coronal magnetic images of the brain were obtained. 20 cc MultiHance administered intravenously FINDINGS: 16 millimeter enhancing lesion abutting the left petrous bone as the appearance of a menin gioma. No surrounding edema Left orbital floor fracture again demonstrated The ventricles are normal in caliber. Diffusion-weighted/ ADC mapping sequences do not demonstrate evidence of an acute infarction. No abnormal enhancement within the brain is seen. An extra-axial fluid collection is not noted. Fluid within the sinuses/mastoids is not seen IMPRESSION: No acute intracranial abnormality displayed
[2021-10-14 17:44] VITALS: O2SAT 95; BMI 26.5
[2021-10-14 18:46] LABS: Urine Appearance CLEAR (Clear); Urine Bilirubin NEGATIVE (Negative); Urine Blood NEGATIVE (Negative); Urine Color YELLOW (Yellow); Urine Glucose NEGATIVE (Negative); Urine Protein TRACE (Negative); Urine Specific Gravity >=1.030 (1.005-1.030); Urine Urobilinogen 0.2 mg/dL (0.2-1.0)
[2021-10-14 18:50] LABS: Urine Microscopic Reflex NO UMIC
[2021-10-14] MEDS ORDERED: INFLUENZA VACCINE (for 6+ mo) 0.5 ML DOSE IMVAC ONE (19:00)
[2021-10-14 19:05] LABS: Thyroid Stimulating Hormone 2.96 uIU/mL (0.360-3.740)
--- NOTE | 2021-10-14 20:55 | P.DS ---
Admission Date: 10/14/21 Discharge Date: 10/14/21 Disposition: TRANSFER TO [place] Discharge Condition: FAIR Reason for Admission: recurrent falls Consultations: Neurology: Dr. Purvis Procedures: Problem list Recurrent falls Hyperreflexia/myoclonus suspected upper motor neuron process Alcohol abuse CHFunknown EF COPD Chronic pain Tobacco abuse Brain MRI FINDINGS: 16 millimeter enhancing lesion abutting the left petrous bone as the appearance of a meningioma. No surrounding edema Left orbital floor fracture again demonstrated The ventricles are normal in caliber. Diffusion-weighted/ ADC mapping sequences do not demonstrate evidence of an acute infarction. No abnormal enhancement within the brain is seen. An extra-axial fluid collection is not noted. Fluid within the sinuses/mastoids is not seen IMPRESSION: No acute intracranial abnormality displayed CT head/C-spine/chest abdomen pelvis FINDINGS: An intracranial bleed is not seen. The ventricles are normal in caliber. An extra-axial fluid collection is not noted. Fluid within the sinuses is not seen Mildly depressed left orbital floor fracture with herniation of fat into the left maxillary sinus. Air is present within the left orbit and the left cheek. Stable 16 millimeter soft tissue mass anterior left posterior cranial fossa abuts the petrous bone. This may represent a meningioma. Nonemergent MRI recommended A cervical fracture is not seen. No dislocation is seen. A mediastinal hematoma is not noted. A pleural effusion is not present. A lung contusion is not seen. The liver, spleen, pancreas, adrenals, kidneys and bladder do not demonstrate a traumatic injury IMPRESSION: No acute intracranial abnormality is seen Mildly depressed left orbital floor fracture with herniation fat into left maxillary sinus A cervical fracture is not visualized. No traumatic injury involving the chest, abdomen or pelvis is seen. Chest x-ray FINDINGS: Lines: None. Lungs: No evidence of edema or pneumonia. New linear opacity in the right upper lobe likely representing subsegmental atelectasis. Pleural: No significant pleural effusions or pneumothorax. Cardiac: The heart size is within normal limits. Bones: No acute fractures. Other: IMPRESSION: No acute cardiopulmonary disease. Brief History of Present Illness: Ms. Leonard is a 61 yo F with HTN, fibromyalgia, chronic pain, COPD, CHF, alcohol use disorder who presents with recurrent falls. She typically falls 1 or 2 times a day. On Sunday, she fell and hit her head on a coffee table. She was admitted to [facility] for an orbital floor fracture and was cleared by ophthamology with no surgical intervention. Yesterday, she said she fell seven times which is more than normal. This morning she fell four times so decided to report to the ED. She says when she tries to walk she 'shakes'. She says she feels off balance and her legs just give out. She drinks ~6 shots of vodka multiple times a week for several years. Labs unremarkable. Imaging review below. Patient admitted for MRI and observation. Hospital Course: Patient was admitted under observation MRI of the brain was performed which did not demonstrate any unknown acute findings. Patient was examined by neurology who noted the patient had hyperreflexia and clonus, neurology was concerned for upper motor neuron process, MRI of the brain rule out anything in the head, patient does have recent history of multiple trauma with falls for this reason he is concerned about patient's C-spine. He recommended stat MRI of the C-spine unfortunately the MRI department had left for the day and we are not able to complete an MRI here on the weekends given patient's current clinical situation, exam findings and clinical history he recommends that she be transferred for emergent MRI of the C-spine. Transfer was initiated with [facility] who accepted patient. Vital Signs/Physical Exam: Temp Pulse Resp BP Pulse Ox 97.5 F 77 17 146/76 H 95 10/14/21 16:00 10/14/21 16:00 10/14/21 19:12 10/14/21 16:00 10/14/21 16:00 General: Oriented x3 HEENT: Atraumatic Neck: 2+ carotid pulse no bruit Respiratory: Clear to auscultation bilaterally Cardiovascular: No edema Capillary refill: <2 Seconds Gastrointestinal: Normal bowel sounds Musculoskeletal: No contractures, No erythema, No tenderness Integumentary: No significant lesion, No tenderness/swelling Neurological: Abnormal reflexes (Hyperreflexia, clonus present) Laboratory Data at Discharge: WBC 7.20 K/uL (4.3-10.9) D 10/14/21 11:10 Hgb 13.4 g/dL (12.0-15.0) 10/14/21 11:10 Hct 40.2 % (36.0-45.0) 10/14/21 11:10 Plt Count 229 K/uL (152-406) 10/14/21 11:10 PT 10.7 SECONDS (9.5-12.5) 10/14/21 11:37 INR 0.93 10/14/21 11:37 Sodium 137 mmol/L (136-145) 10/14/21 11:37 Potassium 3.7 mmol/L (3.5-5.1) 10/14/21 11:37 BUN 11 mg/dL (7-18) 10/14/21 11:37 Creatinine 0.52 mg/dL (0.55-1.3) L 10/14/21 11:37 Glucose 91 mg/dL (74-106) 10/14/21 11:37 Magnesium 2.0 mg/dL (1.8-2.4) 10/14/21 11:37 Total Bilirubin 0.4 mg/dL (0.2-1.0) 10/14/21 11:37 AST 15 U/L (15-37) 10/14/21 11:37 ALT 16 U/L (12-78) 10/14/21 11:37 Alkaline Phosphatase 67 U/L (45-117) 10/14/21 11:37 Home Medications: Gabapentin [Neurontin*] 800 mg PO TID 09/22/14 Metaxalone 800 mg PO QID 04/26/18 Atorvastatin Calcium 40 mg PO DAILY 12/29/20 Venlafaxine HCl 37.5 mg PO DAILY WITH BREAKFAST 12/29/20 Fluticasone/Umeclidin/Vilanter [Trelegy Ellipta 100-62.5-25] 1 each IH DAILY #30 blst.w.dev 12/31/20 Amlodipine [Norvasc*] 10 mg PO DAILY tab 01/11/21 Quetiapine Fumarate [Seroquel] 50 mg PO Q12H #60 tablet 10/05/21 Zolpidem Tartrate [Ambien] 10 mg PO BEDTIME PRN #15 tablet 10/05/21 Physician Discharge Instructions: Continue with plan of care at [facility]. Recommend stat/emergent MRI C- spine. Followup: Mich Dinero, [Primary Care Provider] - Time spent managing pt's care (in minutes): 30
[2021-10-14 20:59] VITALS: BP 144/59; TEMP 97.8
--- NOTE | 2021-10-14 23:13 | CON ---
Reason For Consultation: Consultation called because of multiple falls. History Of Present Illness: Ms. Leonard is a 61-year-old patient with hypertension, fibromy algia, chronic pain, COPD, CHF, and chronic longstanding alcohol abuse who comes back to our hospital with about 2 weeks or so of multiple falls on standing. She falls, she says her legs just give out perhaps 4 or 5 times a day, one fall at the weekend resulted in her hitting her head and she has suff ered an orbital fracture. She was seen at [facility] where the orbital fracture was i dentified. She was cleared by Ophthalmology. No surgery required. She came to [facility] on 10/14/2021 after falling 7 times yesterday. She would get up and like walk around and she would j ust fall to the ground. She denies drinking alcohol excessively in the last few months, but was prev iously drinking at least 6 shots of vodka several times a week. Her brain MRI done today did not nahomy w any acute ischemic or hemorrhagic findings. The study showed a 16 mm anterior left posterior fossa meningioma that has been stable over years. No bleeding. No ischemic events. Her blood work showe d essentially unremarkable complete blood count with differential. Her basic metabolic panel showed no significant abnormalities. Liver function studies despite her alcohol use showed no significant a bnormalities. Her B12 is pending. Procalcitonin pending. Ammonia level is also pending. Urinalysi s are 1+ protein, otherwise unremarkable. Toxicology shows alcohol level to be 212, which normal is less than 10. COVID-19 test is negative. Past Medical History: As noted above. Allergies: LATEX, CEPHALEXIN, PREDNISOLONE, AND NAPROSYN. Medications: At home gabapentin 800 mg 3 times daily, metaxalone 800 mg 4 times daily, atorvastatin 40 mg daily, venlafaxine 37.5 mg daily, Trelegy Ellipta 100-62.5-25 daily, Proventil 0.083 nebulizer treatments every 6 hours as needed, Norvasc 10 mg daily, Seroquel 50 mg every 8-12 hours as needed, a nd Ambien 10 mg daily. Past Surgical History: Right upper lobectomy, multiple hernia surgeries, abdominal surgeries. Social History: Lives at home and drinks alcohol as noted up to 6 mixed drinks several times weekly. Family History: Positive for heart disease and hypertension in father, who is . Mother with heart disease, lung disease, cancer and also . Brother with heart disease, hypertension, dayton ng disease. Review of Systems: She has had significant difficulty with balance, gait, coordination, able to ambulate, but over the l ast week did have falls. Otherwise, no fevers or chills. No myalgias or arthralgias. No active agg ressive psychiatric issues. Physical Examination: Vital Signs: Blood pressure 146/76, pulse 77, respiratory rate 16, temperature 97.5, oxygen saturati on 95% with oxygen flow rate 1.5 L. General: Ms. Leonard is lying in bed. HEENT: She does have actually some mild joint in the left orbital region where she has a mildly depr essed left orbital floor fracture with noted some fat herniation in the left maxillary sinus. Otherw ise, cranial nerves show no focal deficits. She does not have a jaw jerk. Neurologic: On motor examination, she has good strength in the lower extremities. There is mild dif fuse weakness noted, at least 4+/5. Coordination is slow, but intact in the lower extremities. She had decreased tone in her lower extremities. Reflexes are very hyperreflexic with continuous clonus in the lower extremities across the 4+ reflexes in the upper extremities. Positive Hoffma n's. 4+ reflexes in the biceps, triceps, brachioradialis. Gait, she is not ambulating . Assessment: Ms. Leonard is a 61-year-old patient with a long history of daily alcohol abuse and multi ple medical problems, as stated above. Brain MRI shows a 16 mm left anterior posterior fossa meningi concetta, which is not likely contributing to her symptoms. Her examination is very worrying for cervical canal stenosis. Plan: 1.Stat cervical spine MRI without contrast. 2.She will likely have a cervical collar if MRI shows severe cervical canal stenosis. 3.She would require transfer for acute care with cervical spinal stenosis. 4.Consider Decadron 4 mg every 6 hours depending on the results of the MRI. 5.The patient should not ambulate until results of study of cervical spine is back. JONH/TREVL Voice ID: [id number] Report ID: [id number]
[2021-10-15] MEDS ORDERED: FOLIC ACID 1 MG TABLET PO SCH (09:00)
[2021-10-15] MEDS ORDERED: MULTIVITAMIN TAB PO SCH (09:00)
[2021-10-15] MEDS ORDERED: THIAMINE HCL 100 MG TABLET PO SCH (09:00)
--- NOTE | 2021-10-15 12:46 | EKG ---
Test Date: 2021-10-14 Test Time: 11:05:44 [employer] Administrator: WEN MEASUREMENT RESULTS: Intervals: Rate: 79 GA: 166 QRSD: 88 QT: 374 QTc: 428 [place]: P: 86 GA: 166 QRS: 63 T: 58 INTERPRETIVE STATEMENTS: Normal sinus rhythm Normal ECG Compared to ECG 08/27/2021 00:00:29 Myocardial infarct finding no longer present Electronically Signed On 10-15-21 12:45:00 COLDFUSION by Tato Mendez
== END 2021-10-14 21:15 | disposition short-term general hospital (02) | DRG 93 ==
LOC: ER 09:43 → ERHOLD 14:39 → 2ND 15:36
PROVIDERS: ADMIT Internal Medicine; ATTEND Internal Medicine
DX: R29.2 Abnormal reflex (principal); R25.8 Other abnormal involuntary movements; J44.9 Chronic obstructive pulmonary disease, unspecified; F10.10 Alcohol abuse, uncomplicated; I11.0 Hypertensive heart disease with heart failure; I50.9 Heart failure, unspecified; D32.9 Benign neoplasm of meninges, unspecified; G89.4 Chronic pain syndrome; M48.02 Spinal stenosis, cervical region; F17.210 Nicotine dependence, cigarettes, uncomplicated; T14.8XXA Other injury of unspecified body region, initial encounter; S20.222A Contusion of left back wall of thorax, initial encounter; W18.30XA Fall on same level, unspecified, initial encounter; Z88.0 Allergy status to penicillin; Z88.8 Allergy status to other drugs, medicaments and biological substances; Z91.040 Latex allergy status; Z79.899 Other long term (current) drug therapy; Z88.1 Allergy status to other antibiotic agents; Z90.710 Acquired absence of both cervix and uterus; Z23 Encounter for immunization; Z20.822 Contact with and (suspected) exposure to COVID-19
CPT/HCPCS: 36415; 70450; 70553; 71045; 71260; 72125; 74177; 80048; 80076; 80320; 81003; 82140; 82747; 83605; 83735; 83880; 84425; 84439; 84443; 84484; 85025; 85610; 87086; 87088; 90471; 93005; 94760; 96374; 96375; 99285; A9577; J2405; J3411; J7040; Q2035; Q9967; U0003

== ENCOUNTER 2022-03-05 14:21 | Emergency (ER) | payer OTHER ==
--- OUTSIDE RECORDS SUMMARY | 2022-03-05 14:31 | XMS REPORT | Continuity of Care Document ---
:1960 Author Organization [facility] t Address [address] [place] [address] Care Team Providers Name Role Phone PRANAY Attending Clinician Unavailable ELIZABETH Attending Clinician Unavailable Yusra Dinero Attending Clinician Unavailable Rich Lu Attending Clinician Unavailable [id number] Attending Clinician Unavailable Susie Leblanc Attending Clinician Unavailable Rachel Attending Clinician Unavailable LALITO Attending Clinician Unavailable Doctor Unassigned, Name Attending Clinician Unavailable Ramón COPELAND Attending Clinician Hany COPELAND Attending Clinician Tylor Sandoval MD Attending Clinician RAMÓN Attending Clinician Unavailable RAMÓN Attending Clinician Unavailable KONG Attending Clinician Unavailable Nery Lu Admitting Clinician Unavailable [id number] Admitting Clinician Unavailable Susie Leblanc Admitting Clinician Unavailable Hany COPELAND Admitting Clinician KONG Admitting Clinician Unavailable Payers Payer Name Policy Type Policy Number Effective Date Expiration Date Elvia [facility] [id number] 2021 MEDICARE 00:00:00 HLSM [id number] MEDICARE PART A \\T\\ [id number] 2011 B 00:00:00 Problems Condition Condition Condition Status [...] Active 2019-08 Univers 0-11 ity of 00:00: Medical Branch Acute on Acute on Disease Active 2019-08 Unive rs chronic chronic 0-10 ity of pancreatit pancreatit 00:[place] Obesity Obesity Disease Active 2019-08 Univers (BMI (BMI 0-09 ity of 30-39.9) 30-39.9) 00:00: [place] [facility] NSTEMI NSTEMI Disease Active Univers (non-ST (non-ST 2-22 ity of elevated elevated 00:00: [place] myocardial myocardial 00 Me dical infarction infarction Br anch ) ) SIRS SIRS Disease Active Univers (systemic (systemic 2-22 ity of inflammato inflammato 00:[place] 00 Medical response response Branch syndrome) syndrome) Chronic Chronic Disease Active Univers hypercapni hypercapni 9-18 it y of c c 00:00: [place] respirator respirator 00 Me dical y failure y failure Bran ch Acute Acute Disease Active Univers encephalop encephalop 9-18 it y of athy athy 00:00: [place] [facility] Alcohol Alcohol Disease Active Univers abuse abuse 9-18 ity of 00:00: [place] [facility] Acute Acute Disease Active Univers liver liver 9-14 ity of failure failure 00:00: [place] without without 00 Medical hepatic hepatic Branch coma coma ENRIQUE (acute ENRIQUE (acute Disease Active U nivers kidney kidney 9-14 ity of injury) injury) 00:00: [place] [facility] Other Other Disease Active Univers chronic chronic 9-14 ity of pain pain 00:00: [place] [facility] Left Left Problem Active UT shoulder shoulder Physic i pain pain ans Closed Closed Problem Active UT nondisplac nondisplac Ph ysici ed ed ans fracture fracture of greater of greater tuberosity tuberosity of left of left humerus, humerus, initial initial encounter encounter Closed Closed Problem Active UT nondisplac nondisplac Ph ysici ed ed ans fracture fracture of greater of greater tuberosity tuberosity of right of right humerus humerus with with routine routine healing, healing, subsequent subsequent encounter encounter Allergies, Adverse Reactions, Alerts Allergy Allergy Status Severity Reaction(s) Onset Inactive Treating Comm ents Source Name Type Date Date Clinician NAPROXEN [facility] Latex Allergy Active Unknown [facility] to 04-26 Health substanc 00:00: e 00 LATEX Allergy [facility] LEVOFLOX Allergy Active Itching [facility] PENICILL Allergy Active Hives [facility] 00 [place] Naproxen Allergy Active Unknown Other UT to 2-10 reaction( Health substanc 00:00: s): GI e 00 Intoleran ce Levoflox Allergy Active Unknown UT acin to 2-10 Health substanc 00:00: e 00 Penicill Adverse Active Info Not Commo n in G Reaction Available [facility] Naproxen Adverse Active Info Not Commo n Reaction Available [facility] Levaquin Adverse Active Info Not Commo n Reaction Available [facility] Latex Adverse Active Info Not Common Reaction Available [facility] NO KNOWN Drug Active Univers ALLERGIE Class ity of S [facility] Social History Social Habit Start Date Stop Date Quantity Comments Source Exposure to Not sure [facility] SARS-CoV-2 (event) [facility] Cigarettes smoked 2020-05-23 2020-05-23 Univers ity of current (pack per 00:00:00 00:00:00 [facility] ) - Reported Branch Cigarette 2020-05-23 2020-05-23 University of pack-years 00:00:00 00:00:00 [facility] Tobacco use and 2020-05-23 2020-05-23 Never used Universit y of exposure 00:00:00 00:00:00 [facility] Alcohol intake 2020-05-23 2020-05-23 Current drinker Unive rsity of 00:00:00 00:00:00 of alcohol [place] [facility] (finding) Branch History [facility] 2020-05-20 2020-05-20 99 University o f Alcohol Binge 00:00:00 00:00:00 [place] Medic al Branch History SDWI 2020-05-20 2020-05-20 3 University o f Financial 00:00:00 00:00:00 [place] [facility] History SDWI Food 2020-05-20 2020-05-20 1 Univers ity of Worry 00:00:00 00:00:00 [place] [facility] History SDWI Food 2020-05-20 2020-05-20 1 Univers ity of Scarcity 00:00:00 00:00:00 [place] [facility] Tobacco Comment 2020-05-20 2020-05-20 4-5 Universit y of 00:00:00 00:00:00 cigarettes/day [place] Medi josé Branch History [facility] 2020-05-20 2020-05-20 5 University o f Alcohol Frequency 00:00:00 00:00:00 [place] M edical Branch History [facility] 2020-05-20 2020-05-20 2 University o f Alcohol Std Drinks 00:00:00 00:00:00 [facility] Sex Ass[birth year] At [birth year] [facility] 00:00:00 00:00:00 Smoking Status Start Date Stop Date Source Smokes tobacco daily 2021-12-19 00:00:00 [facility] Smoker, current status 2020-05-23 00:00:00 Unive rsity of [facility] unknown Branch Medications Ordered Filled Start Stop Current Ordering Indication Dosage Frequency Signature Comments Components Source Medication Medication Date Date Medication? Clinician (SIG) Name Name LORazepam Yes 1mg Take 1 mg UT (Ativan) 1 5-19 by mouth. Heal th MG tablet 14:40: 02 traZODone Yes 150mg Take 150 UT (Desyrel) 5-19 mg by Health 150 MG 14:40: mouth tablet 02 every night. gabapentin Yes 800mg Q.25D Take 800 U T (Neurontin) 5-05 mg by Health 800 MG 00:00: mouth 4 tablet 00 (four) times a day. metoprolol Yes 25mg QD Take 25 mg U T succinate 5-05 by mouth 1 Heal th XL 00:00: (one) time (Toprol-XL) 00 each day. 25 MG 24 hr tablet venlafaxine 2022-0 Yes 150mg QD Take 150 U T XR 5-05 mg by Health (Effexor-XR 00:00: mouth 1 ) 150 MG 24 00 (one) time hr capsule each day. with food atorvastati 2022-0 Yes 40mg QD Take 40 mg UT n (Lipitor) 5-05 by mouth 1 He alth 40 MG 00:00: (one) time tablet 00 each day. gabapentin 2022-0 Yes 800mg Q.25D Take 800 U T (Neurontin) 5-05 mg by Health 800 MG 00:00: mouth 4 tablet 00 (four) times a day. metoprolol 2022-0 Yes 25mg QD Take 25 mg U T succinate 5-05 by mouth 1 [facility] th XL 00:00: (one) time (Toprol-XL) 00 each day. 25 MG 24 hr tablet venlafaxine 2022-0 Yes 150mg QD Take 150 U T XR 5-05 mg by [facility] (Effexor-XR 00:00: mouth 1 ) 150 MG 24 00 (one) time hr capsule each day. with food atorvastati 2022-0 Yes 40mg QD Take 40 mg UT n (Lipitor) 5-05 by mouth 1 He alth 40 MG 00:00: (one) time tablet 00 each day. metaxalone 2022-0 Yes 1{tbl} Q.25D Take 1 UT (Skelaxin) 5-01 tablet by [facility] 800 MG 00:00: mouth 4 tablet 00 (four) times a day. metaxalone 2022-0 Yes 1{tbl} Q.25D Take 1 UT (Skelaxin) 5-01 tablet by [facility] 800 MG 00:00: mouth 4 tablet 00 (four) times a day. OXcarbazepi 2022-0 Yes 300mg QD Take 300 U T ne 4-27 mg by Health (Trileptal) 00:00: mouth 1 300 MG 00 (one) time tablet each day. OXcarbazepi 2022-0 Yes 300mg QD Take 300 U T ne 4-27 mg by [facility] (Trileptal) 00:00: mouth 1 300 MG 00 (one) time tablet each day. QUEtiapine 2022-0 Yes 50mg Q.5D Take 50 mg U T (SEROquel) 4-23 by mouth 2 Hea lth 50 MG 00:00: (two) tablet 00 times a day. QUEtiapine Yes 50mg Q.5D Take 50 mg U T (SEROquel) 4-23 by mouth 2 Hea lth 50 MG 00:00: (two) tablet 00 times a day. zolpidem Yes 1{tbl} Take 1 UT (Ambien) 10 2-22 tablet by Hea lth MG tablet 00:00: mouth 00 every night. zolpidem Yes 1{tbl} Take 1 UT (Ambien) 10 2-22 tablet by Hea lth MG tablet 00:00: mouth 00 every night. thiamine 2019-08- No [id number] 100mg Take 1 Univers 100 mg 0-15 [...] 100 mg 00 First dose Medical on [facility] 05/26/20 at 0900, Until Discontinu ed, Routine KCL 2019-08- No 40meq 40 mEq, Univers (KLOR-CON 0-14 10-14 Oral, ity of M20) tablet 13:30: 19:20 ONCE, 1 [place] 40 mEq 00 :00 dose, [facility] Medical 05/26/20 Branch at 0830, Routine melatonin 2019-08 Yes 3mg 3 mg, Univers (MELATIN) 0-14 Oral, ity of tablet 3 mg 06:32: QHSPRN, [place] 44 Starting Medical [facility] 05/26/20 at 0132, Until Discontinu ed, Routine, [...] Until Discontinu ed, Routine gabapentin 2019-08 Yes [id number] 400mg Take 1 Univers 400 mg 0-14 9107 capsule by ity of capsule 00:00: mouth 3 [place] 00 (three) Medical times Branch daily. metoprolol 2019-08 Yes [id number] 25mg Take 1 Univers succinate 0-14 9107 tablet by ity o f XL 25 mg 24 00:00: mouth [place] hr tablet 00 daily. Medical Branch pantoprazol 2019-08 Yes [id number] 40mg Take 1 Univers e 40 mg EC 0-14 9107 tablet by ity of tablet 00:00: mouth [place] 00 daily. Medical Branch Polyethylen 2019-08 Yes [id number] 17g Take 1 Univers e Glycol 0-14 9107 Packet by ity of 3350 17 00:00: mouth 3 [place] gram powder 00 (three) Medic al times Branch daily. sennosides- 2019-08 Yes [id number] 1{tbl} Take 1 Univers docusate 0-14 9107 tablet by ity of sodium 00:00: mouth 2 [place] 8.6-50 mg 00 (two) Medical per tablet times Branch daily. hydroCHLORO 2019-08 Yes [id number] 12.5mg Take 1 Univers thiazide 0-14 9107 capsule by ity o f 12.5 mg 00:00: mouth [place] capsule 00 daily. Medical Branch doxycycline 2019- Yes [id number] 100mg Take 1 Univers hyclate 100 0-14 [...] 00 bedtime. Medical Branch gabapentin 2019-08 Yes [id number] 400mg Take 1 Univers 400 mg 0-14 9107 capsule by ity of capsule 00:00: mouth 3 [place] 00 (three) Medical times Branch daily. metoprolol 2019-08 Yes [id number] 25mg Take 1 Univers succinate 0-14 9107 tablet by ity o f XL 25 mg 24 00:00: mouth [place] hr tablet 00 daily. Medical Branch pantoprazol 2019-08 Yes [id number] 40mg Take 1 Univers e 40 mg EC 0-14 9107 tablet by ity of tablet 00:00: mouth [place] 00 daily. Medical Branch Polyethylen 2019-08 Yes [id number] 17g Take 1 Univers e Glycol 0-14 9107 Packet by ity of 3350 17 00:00: mouth 3 [place] gram powder 00 (three) Medic al times Branch daily. sennosides- 2019-08 Yes [id number] 1{tbl} Take 1 Univers docusate 0-14 9107 tablet by ity of sodium 00:00: mouth 2 [place] 8.6-50 mg 00 (two) Medical per tablet times Branch daily. hydroCHLORO 2019-08 Yes [id number] 12.5mg Take 1 Univers thiazide 0-14 9107 capsule by ity o f 12.5 mg 00:00: mouth [place] capsule 00 daily. Medical Branch doxycycline 2019-08 Yes [id number] 100mg Take 1 Univers hyclate 100 0-14 [...] ity of 0.02 % 19:00: , TID, [place] nebulizer 00 First dose Medi josé solution [...] 0-13 Oral, ity of (ESIDRIX) 18:45: DAILY, [place] capsule 00 First dose Medica l 12.5 [...] No 100mg 100 mg, U nivers hyclate 0-25 05-17 Oral, ity of (Vibramycin 11:00: 10:59 Q12HA2, 8 [place] ) capsule 00 :00 doses, Medical 100 mg First dose Branch on Sun05/25/20 at 0600, Last dose on Sun05/28/20 at 1800, SPENCER
Re ason for Anti-Infec tive: Documented Infection< br>Documen nava Infection Site: Blood
D uration of Therapy: 7 days vancomycin 2020-1 2020- No 1500mg 1,500 mg, Univers 1500 [...] dose Medi josé powder 17 g on [facility] 05/24/20 at 0900, Until Discontinu [...] NOW, 1 [place] 00 :00 dose, [facility] 05/24/20 Branch at 0115, Routine acetaminoph 2019-08 Yes 650mg 650 mg, Un urszula en 0-11 Oral, ity of (TYLENOL) 17:41: Q6HPRN, [place] tablet 650 53 Starting Medic al mg [facility] 05/23/20 at 1241, Until Discontinu ed, Routine, Pain (scale 4-6), Temp > 38.5 C acetaminoph 2019-08 Yes 1{tbl} 1 tablet, Univers en-codeine 0-11 Oral, ity of (TYLENOL 17:41: Q6HPRN, [place] #3) 300-30 44 Starting Medic al mg tablet 1 [facility] tablet 05/23/20 at 1241, Until Discontinu ed, Routine, Pain (scale 7-10) vancomycin 2019-08- No 1500mg 1,500 mg, Univers 1500 mg in 12 IV ity of NS 500 mL 17:24: 13:56 Piggyback, [place] IV 00 :07 Q24H ABX, Medical Piggyback First dose Bran ch RTU 1,500 (after mg last modificati on) on [place] 05/23/20 at 1230, Until Discontinu ed
Reas on for Anti-Infec tive: Documented Infection< br>Documen nava Infection Site: Blood
D uration of Therapy: 14 days metoprolol 2019-08 Yes 25mg 25 mg, Unive rs succinate 0-11 Oral, ity of XL (TOPROL 14:00: DAILY, [place] XL) tablet 00 First dose Med ical 25 mg on [facility] 05/23/20 at 0900, Until Discontinu ed, Routine pantoprazol 2019-08- No 40mg 40 mg, Uni vers e 005-25 Oral, ity of (PROTONIX) 14:00: 14:00 DAILY, [place] EC tablet 00 :27 First dose Medi josé 40 mg on [facility] 05/23/20 at 0900, Until Discontinu ed, Routine HYDROcodone 2019-08 2020- No 1{tbl} 1 tablet, Univers -acetaminop 011 05-23 Oral, ity of hen (NORCO 13:55: 17:42 Q6HPRN, [place] 5) 5-325 mg 49 :03 Starting Medi josé tablet 1 [facility] tablet 05/23/20 at 0855, Until 05/23/20 at 1242, Routine, Pain (scale 7-10) vancomycin 2019-08- No 15mg/kg 1,500 mg Univers 1500 mg in 011 (rounded ity of NS 500 mL 17:45: 12:25 from 1,380 [place] IV 00 :20 mg = 15 Medical Piggyback mg/kg ?92 Branc h RTU 1,500 kg), IV mg Piggyback, Q24H ABX, First dose on [facility] 05/22/20 at 1245, Until Discontinu ed
Reas on for Anti-Infec tive: Documented Infection< br>Documen nava Infection Site: Blood
D uration of Therapy: 14 days KCL 2019-08- No 30meq 30 mEq, IV Unive rs (POTASSIUM 0-10 10-10 Piggyback, it y of CHLORIDE) 09:30: 08:57 ONCE, 1 [place] 30 mEq in 00 :00 dose, Sat Medic al NaCl 0.9% 05/22/20 Branch () at 0430, piggyback 250 mL QUEtiapine 2019-08 Yes 50mg 50 mg, Unive rs (SEROQUEL) 0-10 Oral, QHS, ity of tablet 50 02:00: First dose [place] mg 00 on [facility] 05/21/20 at Branch 2100, Until Discontinu ed, Routine gabapentin 2019-08- No 300mg 300 mg, Un urszula (NEURONTIN) 0-10 10-12 Oral, BID, i ty of capsule 300 01:30: 13:55 First dose [place] mg 00 :11 on [facility] 05/21/20 at Branch 2030, Until Discontinu ed, [...] :00 dose, Fri Medic al injection 3 10/9/20 at Br anch mL 1215, Routine lactated 2019-08- No 1000mL at 100 [facility] ers ringers IV 0-09 10-14 mL/hr, ity [...] heparin 2019-08 Yes 5000U 5,000 Univers (porcine) 0 Units, ity of injection 13:00: Subcutaneo [place] 5,000 Units 00 us, Q12H, Med ical First dose Branch on Sun05/21/20 at 0800, Until Discontinu ed, Routine magnesium 2019-08- No 2g 2 g, IV [facility] ers sulfate in 005-21 Piggyback, it y of water 2 07:30: 07:44 ONCE, 1 [place] gram/50 mL 00 :00 dose, Sun Medi josé (4 %) 05/21/20 at Branch infusion 2 0230, g Routine acetaminoph 2019-08 No 650mg 650 mg, U nivers en [...] dose, [place] Medic al solution 05/20/20 at [facility] h 0.5 mg 2230, Routine lactated 2020-1 2020- No 1000mL at 125 Univ ers ringers IV 0-09 10-09 mL/hr, ity of infusion 03:15: 15:12 1,000 mL, [place] 1,000 mL 00 :09 IV Medical Infusion, Branch CONTINUOUS , Starting [place] 05/20/20 at 2215, Until Sun05/21/20 at 1012, Routine ipratropium 2019-08 No .5mg 0.5 mg, Un urszula (ATROVENT) 0-04 22-12 Inhalation it y of 0.02 % 02:30: 12:43 , Q6HPRN, [place] nebulizer 42 :23 Starting Medica l solution [facility] 0.5 mg 05/20/20 at 2130, Until 05/24/20 at 0743, Routine, Wheezing, Shortness of Breath nystatin 2019-08 Yes Topical, Unive rs (NYSTOP) 0-09 BID, First ity o f powder 02:30: dose on [place] [facility] Medical 05/20/20 at Branch 2130, Until Discontinu ed, Routine oxazepam 2019-08- No 30mg 30 mg, Univer s (SERAX) 005-26 Oral, ity of capsule 30 02:22: 11:13 Q6HPRN, [place] mg 01 :02 Starting Medical [facility] Branch 05/20/20 at 2122, Until Sun05/26/20 at 0613, Routine, Anxiety, Hypertensi on, signs of withdrawal . Please NHO if given so taper can be started. proMETHazin 2019-08 Yes 25mg 25 mg, IV U nivers e 0- Piggyback, ity of (PHENERGAN) 02:17: Q4HPRN, [place] 25 mg in 21 Starting Medical NaCl 0.9% [facility] Branch (NS) 50 mL 05/20/20 at piggyback 2116, Until Discontinu ed, 50 mL benzocaine- 2019-08 Yes 1{lozen 1 Lozenge, Univers menthoL 0-09 ge} Oral, ity of (CEPACOL 02:16: Q4HPRN, [place] SORE THROAT 23 Starting Medi josé (MIA-MEN)) [facility] Branch lozenge 1 05/20/20 at Lozenge [...] No 500mg 500 mg, IV Univers (VANCOCIN) 0-08 10-08 Piggyback, it y of 500 mg in 23:30: 23:36 ONCE, 1 [place] NaCl 0.9% 00 :00 dose, [place] Medic al (NS) 100 mL 05/20/20 at Br anch piggyback 1830, 100 mL
Reas on for Anti-Infec tive: Empiric Therapy for Suspected Infection< br>Empiric Therapy Site: Blood
D uration of therapy: 7 days piperacilli 2019-08 2020- No 2.25g 2.25 g, IV Univers n-tazobacta [...] uration of therapy: 7 days NaCl 0.9% 2019-08 2020- No 1000mL at 125 Uni vers (NS) [...] PRN - SEE [place] mL 14 INSTRUCT Medical NS, Branch Starting [place] 05/20/20 at 1443, Until Discontinu ed, 10 mL gabapentin 2019-08 2020- No TAKE ONE Un urszula 800 mg 0-03 10-14 (1) ity of tablet 00:00: 00:00 TABLET(S) [place] 00 :00 BY [facility] Medical FOUR TIMES Branch A DAY. QUEtiapine 2019-08 Yes 50mg Take 50 mg U nivers 50 mg 0-02 by mouth 2 ity of tablet 00:00: (two) [place] 00 times Medical daily. Branch QUEtiapine 2019-08 Yes 50mg Take 50 mg U nivers 50 mg 0-02 by mouth 2 ity of tablet 00:00: (two) [place] 00 times Medical daily. Branch lisinopriL- 2020- No 1{tbl} Take 1 U nivers hydrochloro 9- 10-14 tablet by it y of thiazide 00:00: 00:00 mouth [place] 20-12.5 mg 00 :00 daily. Medical per tablet Branch metaxalone 2019- No TAKE ONE Un urszula 800 mg 04-07 10-14 (1) ity of tablet 00:00: 00:00 TABLET(S) [place] 00 :00 BY MOUTH Medical THREE Branch TIMES A DAY. Skelaxin Skelaxin 2020- No [place] 1 tablet Common 04-06 09-24 [facility] 00:00: 00:00 - [facility] 00 :00 [facility] Pseudoeph-B Pseudoeph-B Yes [place] Take 5 ml Common romphen-DM romphen-DM 8-11 [facility]ero (Max 40 Spirit 00:00: ml/24 - [facility] 00 hours) [facility] Gabapentin Gabapentin Yes [place] take one Common Dinero -1 Spirit tablet(s) - [facility] by mouth [facility] four times [facility] day[facility] Lisinopril Lisinopril Yes [place] 1 tablet Common [facility] - [facility] HydrOXYzine HydrOXYzine Yes [place] TAKE ONE Common HCl HCl [facility] (1) Spirit TABLET(S) - [facility] BY MOUTH [facility] THREE [facility] TIMES A Medical DAY Center NEEDED FOR ANXIETY. Virgil Virgil Yes [place] TAKE ONE Com mon Carbonate Carbonate [facility]ero (1) Spir it CAPSULE(S) - [facility] BY MOUTH [facility] THREE [facility] TIMES A Medical DAY. Center Quetiapine Quetiapine Yes [place] take one Common Fumarate Fumarate Dinero -1 Spirit tablet(s) - [facility] Lisinopril- Lisinopril- Yes Mich 1 tablet Common Hydrochloro Hydrochloro [facility] thiazide thiazide - [facility] Potassium Potassium Yes Mich TAKE 1 C ommon Chloride ER Chloride ER [facility]ero TABLET BY Spirit MOUTH - [facility]I DAILY [facility] Oxcarbazepi Oxcarbazepi Yes [place] TAKE ONE Common ne ne Dinero (1) Spirit TABLET(S) - [facility] BY MOUTH St TWICE A DAY. Medical Center Immunizations Ordered Filled Immunization Date Status Comments Sourc e Immunization Name Name Influenza Virus 2018-10-07 Completed Universit y of Vaccine 00:00:00 [facility] Pneumococcal 13 2018-10-07 Completed Universit y of Conjugate, PCV13 00:00:00 [facility] dical (Prevnar 13) Branch Influenza Virus 2018-10-07 Completed Universit y of Vaccine 00:00:00 [facility] Pneumococcal 13 2018-10-07 Completed Universit y of Conjugate, PCV13 00:00:00 [facility] dical (Prevnar 13) [place] Vital Signs Vital Name Observation Time Observation Value Comments Source Body temperature 2021-12-29 19:38:00 36 Dee Dee [facility] Respiratory rate 2021-12-29 19:38:00 15 /min [facility] Body height 2021-12-29 19:38:00 160 cm [facility] Body weight 2021-12-29 19:38:00 96.163 kg [facility] BMI 2021-12-29 19:38:00 37.55 kg/m2 [facility] Oxygen saturation 2021-12-29 19:38:00 96 /min [facility] in Arterial blood by Pulse oximetry Systolic blood 2021-12-29 19:38:00 116 mm[Hg] [facility] pressure Diastolic blood 2021-12-29 19:38:00 76 mm[Hg] [facility] pressure Heart rate 2021-12-29 19:38:00 88 /min [facility] Systolic blood 2021-12-19 15:47:00 138 mm[Hg] [facility] pressure Diastolic blood 2021-12-19 15:47:00 87 mm[Hg] [facility] pressure Heart rate 2021-12-19 15:47:00 76 /min [facility] Body temperature 2021-12-19 15:47:00 36.11 Dee Dee [facility] Respiratory rate 2021-12-19 15:47:00 16 /min [facility] Body height 2021-12-19 15:47:00 159.4 cm [facility] Body weight 2021-12-19 15:47:00 95.255 kg pt reported [facility] BMI 2021-12-19 15:47:00 37.50 kg/m2 [facility] Systolic blood 2020-05-26 20:58:00 155 mm[Hg] Univer sity of pressure [facility] Diastolic blood 2020-05-26 20:58:00 78 mm[Hg] Unive rsity of pressure [facility] Heart rate 2020-05-26 20:58:00 79 /min Universi ty of [facility] Body temperature 2020-05-26 20:58:00 37.28 Dee Dee Univ ersity of [facility] Respiratory rate 2020-05-26 20:58:00 18 /min Univ ersity of [facility] Oxygen saturation 2020-05-26 20:58:00 94 /min Uni versity of in Arterial blood [place] Medi josé by Pulse oximetry Branch Body height 2020-05-21 02:30:00 160 cm Universi ty of [place] [facility] [place] Body weight 2020-05-21 02:30:00 92 kg Universi ty of [place] [facility] [place] BMI 2020-05-21 02:30:00 35.93 kg/m2 Universi ty [facility] Medical Branch Systolic blood 2020-05-26 20:58:00 155 mm[Hg] Univer sity of [facility] Diastolic blood 2020-05-26 20:58:00 78 mm[Hg] Unive rsity of [facility] Heart rate 2020-05-26 20:58:00 79 /min Universi ty of [place] [facility] [place] Body temperature 2020-05-26 20:58:00 37.28 Dee Dee Univ ersity of [place] [facility] Respiratory rate 2020-05-26 20:58:00 18 /min Univ ersity of [place] [facility] Oxygen saturation 2020-05-26 20:58:00 94 /min Uni versity of in Arterial blood [place] Medi josé by Pulse oximetry Branch Body height 2020-05-21 02:30:00 160 cm Universi ty of [place] [facility] [place] Body weight 2020-05-21 02:30:00 92 kg Universi ty of [place] [facility] BMI 2020-05-21 02:30:00 35.93 kg/m2 Universi ty of [place] [facility] [place] Procedures Procedure Date / Time Performing Clinician Source Performed INSURANCE CORRESPONDENCE 2020-08-16 06:01:00 Doctor Unassigned, [facility] BASIC METABOLIC PANEL 2020-05-26 10:08:00 Merced Holm [facility] (NA, K, CL, CO2, GLUCOSE, Medica l Branch BUN, CREATININE, CA) CBC WITH DIFF 2020-05-26 10:08:00 [facility] [facility] MAGNESIUM 2020-05-25 08:50:00 [facility] BAS[facility]ABOLIC PANEL 2020-05-25 08:50:00 [facility] ([facility], K, CL, CO2, GLUCOSE, Medica l Branch BUN, CREATININE, CA) CBC WITH DIFF 2020-05-25 08:50:00 [facility] PO[facility] GLUCOSE (AUTOMATED) 2020-05-24 22:30:00 Andrea Sandoval [facility] VANCOMYCIN RANDOM LEVEL 2020-05-24 18:50:00 Kwaku Khan [facility] MAGNESIUM 2020-05-24 09:32:00 [facility] BASIC METABOLIC PANEL 2020-05-24 09:32:00 Merced Holm [facility] (NA, K, CL, CO2, GLUCOSE, Medica l Branch BUN, CREATININE, CA) VANCOMYCIN RANDOM LEVEL 2020-05-24 09:32:00 Kwaku Khan [facility] VANCOMYCIN TROUGH 2020-05-23 18:05:00 [facility]UM 2020-05-23 08:59:00 [facility] BASIC METABOLIC PANEL 2020-05-23 08:59:00 Merced Holm [facility] (NA, K, CL, CO2, GLUCOSE, Medica l Branch BUN, CREATININE, CA) CBC WITH DIFF 2020-05-23 08:59:00 [facility] CLOSTRIDIUM DIFFICILE 2020-05-23 08:37:00 [facility] WITHOUT DIFF 2020-05-22 15:12:00 Gopi Stroud [facility] MAGNESIUM 2020-05-22 07:22:00 [facility] BASIC METABOLIC PANEL 2020-05-22 07:22:00 Merced Holm [facility] (NA, K, CL, CO2, GLUCOSE, Medica l Branch BUN, CREATININE, CA) CBC WITH DIFF 2020-05-22 07:22:00 Merced Holm [facility] VANCOMYCIN RANDOM LEVEL 2020-05-22 02:46:00 Merced Holm [facility] BLOOD CULTURE SCREEN 2020-05-22 02:36:00 Merced Holm [facility] BLOOD CULTURE SCREEN 2020-05-22 02:35:00 Merced Holm [facility] CT SHOULDER LEFT WO 2020-05-21 23:54:32 Darnell Chau [facility] CBC WITHOUT DIFF 2020-05-21 23:21:00 Gopi Stroud [facility] CREATINE KINASE 2020-05-21 20:42:00 Murray Bright [facility] ECHO ROUTINE W/DOPPLER 2020-05-21 15:19:59 Scott, Emily [facility] COLOR [facility] XR ELBOW <3 VW LEFT 2020-05-21 14:51:45 Darnell Chau [facility] XR FEMUR 2 VW LEFT 2020-05-21 14:51:45 Darnell Chau [facility] XR HUMERUS 2 VW LEFT 2020-05-21 14:51:[address] [facility] XR SHOULDER <2 VW LEFT 2020-05-21 14:51:45 Darnell Chau [facility] VITAMIN B1 (THIAMINE), 2020-05-21 08:31:00 Merced Holm [facility] WHOLE BLOOD [facility] CREATINE KINASE 2020-05-21 08:30:00 Gopi Stroud [facility] MAGNESIUM 2020-05-21 08:30:00 Mihai [facility] TROPONIN I 2020-05-21 08:30:00 Mihai [facility] BASIC METABOLIC PANEL 2020-05-21 08:30:00 [facility] (NA, K, CL, CO2, GLUCOSE, Medica l Branch BUN, CREATININE, CA) CBC WITH DIFF 2020-05-21 08:30:00 [facility] / MSSA SCREEN BY 2020-05-21 08:30:00 [facility] NARES [facility] XR HIPS 2 VW LEFT 2020-05-21 05:46:58 MihaiUT [facility] XR SHOULDER 2+ VW LEFT 2020-05-21 03:22:00 [facility] 2020-05-21 02:53:38 Regina Leach [facility] MAGNESIUM 2020-05-21 01:41:00 [facility] TROPONIN I 2020-05-21 01:41:00 Keon Mercer [facility] HEPATIC FUNCTION PANEL 2020-05-21 01:41:00 [facility] ([id number] (ALB,T.PRO,BILI [facility] T,BU/BC,ALT,AST,ALK PHOS) PHOSPHORUS 2020-05-20 23:33:00 Scott, [facility] CREATINE KINASE 2020-05-20 23:33:00 Ramón, [facility] LIPASE 2020-05-20 23:33:00 Scott, [facility] MAGNESIUM 2020-05-20 23:33:00 Scott, [facility] VITAMIN B12, LEVEL 2020-05-20 23:33:00 [facility] FOL[facility] 2020-05-20 23:33:00 [facility] THYROID STIMULATING 2020-05-20 23:33:00 [facility] H[facility] BASIC METABOLIC PANEL 2020-05-20 23:33:00 Jose [facility] (NA, K, CL, CO2, GLUCOSE, Medica l Branch BUN, CREATININE, CA) CBC WITH DIFF 2020-05-20 23:33:00 [facility] D-DIMER 2020-05-20 23:33:00 Scott, [facility] FIBRINOGEN 2020-05-20 23:33:00 Scott, [facility] URINALYSIS 2020-05-20 23:33:00 Scott, [facility] URINE CULTURE 2020-05-20 23:33:00 Scott, [facility] CREATININE, URINE RANDOM 2020-05-20 23:33:00 Scott, [facility] UREA NITROGEN, URINE 2020-05-20 23:33:00 Scott, [facility] PROCALCITONIN 2020-05-20 23:33:00 Scott, [facility] MO INSERT NON-TUNNEL CV 2020-05-20 23:30:25 Ramón ElizabethDonta [facility] ACUTE CARE VENOUS BLOOD 2020-05-20 23:01:00 Ramón ElizabethDonta [facility] N-TERMINAL PRO-BNP 2020-05-20 22:53:00 Ramón ElizabethDonta [facility] XR CHEST 1 VW 2020-05-20 22:39:22 Ramón [facility] EKG-12 LEAD 2020-05-20 22:34:28 Ramón [facility] BLOOD CULTURE SCREEN 2020-05-20 22:27:00 Emmanuelle Melgar [facility] BLOOD CULTURE WORKUP 2020-05-20 22:27:00 Ramón ElizabethAlycia [facility] BLOOD CULTURE WORKUP 2020-05-20 22:27:00 Ramón ElizabethDonta [facility] GRAM POSITIVE BLOOD 2020-05-20 22:27:00 Ramón ElizabethAlycia [facility] DNA [facility] PROBE-ANAEROBIC EKG-12 LEAD 2020-05-20 22:24:44 Ramón [facility] EKG-12 LEAD 2020-05-20 22:16:30 Ramón [facility] GALV/CLC ONLY - URINE 2020-05-20 22:12:00 Ramón [facility] DRUG (IMMUNOASSAY) - 4 ER Medica l Branch PANEL LACTIC ACID WHOLE BLOOD 2020-05-20 21:45:00 Ramón[facility] 2020-05-20 21:44:28 Ramón, [facility] EKG-12 LEAD 2020-05-20 21:04:29 Ramón, [facility] COVID-19 (ID NOW RAPID 2020-05-20 20:30:00 Ramón, [facility] TESTING) [facility] CT STROKE HEAD WO 2020-05-20 20:01:49 [facility] TROPONIN I 2020-05-20 19:50:00 Ramón, [facility] BASIC METABOLIC PANEL 2020-05-20 19:50:00 [facility] (NA, K, CL, CO2, GLUCOSE, Medica l Branch BUN, CREATININE, CA) ETHANOL 2020-05-20 19:50:00 Ramón, [facility] CBC WITHOUT DIFF 2020-05-20 19:50:00 [facility] / INR 2020-05-20 19:50:00 RamónElizabeth [facility] ACTIVATED PARTIAL 2020-05-20 19:50:00 RamónElizabeth [facility] THRMPLAS [facility] HB CREATININE BLOOD 2020-05-20 19:50:00 Emmanuelle Melgar [facility] POCT GLUCOSE (AUTOMATED) 2020-05-20 19:48:00 Emmanuelle Melgar [facility] HOSPITAL ADMISSION 2020-05-20 05:01:00 Doctor Unassigned, [facility] [place] [facility] Encounters Start End Encounter Admission Attending Care Care Encounter Source Date/Time Date/Time Type Type Clinicians Facility Department ID 2022-02-09 Outpatient [facility] [id number] [place] 10:52:30 [id number] [facility] 2022-01-06 Outpatient [facility] [id number] [place] 13:37:19 [id number] [facility] 2022-01-02 Outpatient PRANAY, [facility] [id number] [place] 01:05:15 CRISTINA [id number] [facility] 2022-01-01 Outpatient PRANAY, [facility] [id number] [place] 17:11:10 CRISTINA [id number] [facility] 2021-12-29 Outpatient PRANAY, [facility] [id number] [place] 14:19:25 CRISTINA [id number] [facility] 2021-12-23 Outpatient ELIZABETH, [facility] [id number] [place] 01:04:[address] [place] [address] 2021-12-19 Outpatient ELIZABETH, [facility] [id number] [place] 09:41:10 GLENDA [id number] [facility] 2021-12-15 Outpatient [facility] [id number] [place] 13:35:50 [id number] [facility] 2021-12-14 Outpatient Dinero, [facility] [id number] Common 11:58:00 On [facility] 2021-12-12 Outpatient Dinero, [facility] [id number] Common 16:48:01 On License [facility] 2021-11-23 Outpatient PRANAY, [facility] [id number] [place] 11:51:[address]INA [address] [place] [address] 2021-10-26 Outpatient ELIZABETH, [facility] [id number] [place] 12:44:30 GLENDA [facility] 2021-10-24 Outpatient [address] E[place] OT 2021 ENCPL 12:24:44 ashlyn Esthela [facility] 2021-10-21 Outpatient [address] ENCPL OT 2021 ENCPL 09:48:00 jacquesshelbie Angella [facility] 2021-10-18 Outpatient 3 [id number] ENCPL OT ENCPL 07:11:35 0308 2021-10-17 Outpatient 3 [id number] ENCPL [facility] ENCPL 15:43:54 0307 2021-09-08 Outpatient 3 Benji, ENCPL JORDAN [id number] 20 ENCPL 10:47:39 Susie 1014 2021-09-08 Outpatient 3 [id number] ENCPL REF ENCPL 10:46:56 1013 2021-09-07 Outpatient Dinero, STLMLC [facility] [id number] [place] 14:10:05 [place] [address] [facility] 2021-09-07 Outpatient Dinero, STLMLC [facility] [id number] [place] 14:03:57 [place] [address] [facility] 2021-09-07 Outpatient Dinero, STLMLC ST[facility] [id number] Common 13:59:43 [place] [address] [facility] 2021-09-07 Outpatient Dinero, STLMLC ST[facility] [id number] Common 13:21:38 [place] [address] [facility] 2021-09-07 Outpatient Dinero, STLMLC ST[facility] [id number] [place] 13:19:11 [place] [address] [facility] 2021-09-07 Outpatient Dinero, STLMLC ST[facility] [id number] [place] 12:27:26 [place] [address] [facility] 2021-09-07 Outpatient Dinero, STLMLC [facility] [id number] [place] 12:23:27 [place] [address] [facility] 2021-09-07 Outpatient Dinero, STLMLC ST[facility] [id number] Common 12:18:07 [place] [address] [facility] 2021-09-07 Outpatient Dinero, STLMLC ST[facility] [id number] [place] 12:14:02 [place] [address] [facility] 2021-09-07 Outpatient Dinero, STLMLC ST[facility] [id number] [place] 12:09:12 [place] [address] [facility] 2021-09-07 Outpatient Dinero, STLMLC ST[facility] [id number] Common 12:07:50 [place] [address] [facility] 2021-09-07 Outpatient Dinero, STLMLC ST[facility] [id number] [place] 12:07:19 [place] [address] [facility] 2021-09-07 Outpatient Dinero, STLMLC ST[facility] [id number] [place] 12:02:12 [place] [address] [facility] 2021-09-07 Outpatient Dinero, STLMLC ST[facility] [id number] Common 11:41:07 [place] [address] [facility] 2021-09-07 Outpatient Dinero, STLMLC ST[facility] [id number] Common 11:36:50 [place] [address] [facility] 2021-09-07 Outpatient Dinero, STLMLC ST[facility]C [id number] Common 11:32:26 [place] [address] [facility] 2021-09-07 Outpatient Dinero, STLMLC ST[facility] [id number] [place] 11:29:28 [place] [address] [facility] 2021-09-07 Outpatient Dinero, STLMLC ST[facility] [id number] [place] 11:29:23 [place] [address] [facility] 2021-09-07 Outpatient Helotes, STLMLC STLMLC [id number] Common 11:21:52 Simona [address] [facility] 2020-06-04 Outpatient NEW ENCCLR ENCCLR [id number] EN CCLR 14:27:33 ADMISSION 2022-01-13 2022-01-13 ambulatory STLMLC STLMLC [id number] Common 00:00:00 00:00:00 [facility] 2022-01-12 2022-01-12 ambulatory STLMLC STLMLC [id number] Common 00:00:00 00:00:00 [facility] 2022-01-04 2022-01-04 ambulatory STLMLC STLMLC [id number] Common 00:00:00 00:00:00 [facility] 2021-12-29 2021-12-29 Office HIRA [place] 6410 [id number] [place] 15:00:00 16:00:00 Visit Cristina TINAJERO [id number] Health [id number] 2021-12-19 2021-12-19 Office HIRA [place] 6410 [id number] [place] 10:30:00 11:30:[address] [id number] Health [id number] 2021-12-14 2021-12-14 ambulatory STLMLC STLMLC [id number] Common 00:00:00 00:00:00 [facility] 2021-12-14 2021-12-14 ambulatory STLMLC STLMLC [id number] Common 00:00:00 00:00:00 [facility] 2021-10-13 2021-10-13 ambulatory STLMLC STLMLC [id number] Common 00:00:00 00:00:00 [facility] 2021-10-06 2021-10-06 ambulatory STLMLC STLMLC [id number] Common 00:00:00 00:00:00 [facility] 2021-09-06 2021-09-06 ambulatory STLMLC STLMLC [id number] Common 00:00:00 00:00:00 [facility] 2021-09-05 2021-09-05 ambulatory STLMLC STLMLC [id number] Common 00:00:00 00:00:00 [facility] 2021-08-30 2021-08-30 ambulatory STLMLC STLMLC [id number] Common 00:00:00 00:00:00 [facility] 2021-06-17 2021-06-17 ambulatory STLMLC STLMLC [id number] Common 00:00:00 00:00:00 [facility] 2021-06-06 2021-06-06 Outpatient STLMLC STLMLC [id number] Common 00:00:00 00:00:00 [facility] 2021-05-19 2021-05-19 Outpatient STLMLC STLMLC [id number] Common 00:00:00 00:00:00 [facility] 2021-03-17 2021-03-17 Outpatient STLMLC STLMLC [id number] Common 00:00:00 00:00:00 [facility] 2021-03-15 2021-03-15 Outpatient STLMLC STLMLC [id number] Common 00:00:00 00:00:00 [facility] 2021-02-12 2021-02-12 Outpatient STLMLC STLMLC [id number] Common 00:00:00 00:00:00 [facility] 2021-02-11 2021-02-11 Outpatient STLMLC STLMLC [id number] Common 00:00:00 00:00:00 [facility] 2021-02-10 2021-02-10 Outpatient STLMLC STLMLC [id number] Common 00:00:00 00:00:00 [facility] 2021-01-27 2021-01-27 Outpatient STLMLC STLMLC [id number] Common 00:00:00 00:00:00 [facility] 2021-01-06 2021-01-06 Outpatient STLMLC STLMLC [id number] Common 00:00:00 00:00:00 [facility] 2020-12-30 2020-12-30 Outpatient STLMLC STLMLC [id number] Common 00:00:00 00:00:00 [facility] 2020-12-17 2020-12-17 Outpatient STLMLC STLMLC [id number] Common 00:00:00 00:00:00 [facility] 2020-12-15 2020-12-15 Outpatient STLMLC STLMLC [id number] Common 00:00:00 00:00:00 [facility] 2020-11-29 2020-11-29 Outpatient STLMLC STLMLC [id number] Common 00:00:00 00:00:00 [facility] 2020-11-24 2020-11-24 Outpatient STLMLC STLMLC [id number] Common 00:00:00 00:00:00 [facility] 2020-11-01 2020-11-01 Outpatient STLMLC STLMLC [id number] Common 00:00:00 00:00:00 [facility] 2020-09-01 2020-09-01 Outpatient STLMLC STLMLC [id number] Common 00:00:00 00:00:00 [facility] 2020-09-01 2020-09-01 Outpatient STLMLC STLMLC [id number] Common 00:00:00 00:00:00 [facility] 2020-08-19 2020-08-19 Jani ST[facility]KEY [facility] Orthopedics 7 [id number] [place] 10:45:00 10:45:00 t; Mireille JIMÉNEZ Ph, M.D. ans STEPHEN, M.D. 2020-08-18 2020-08-18 Outpatient STLMLC STLMLC [id number] Common 00:00:00 00:00:00 [facility] 2020-08-16 2020-08-16 Orders Doctor CRISTINA [id number] 00:00:00 00:00:00 Only Unassigned, [facility]1.13.10 [facility] [id number] [id number] 2020-08-16 2020-08-16 Orders Doctor CRISTINA [id number] Univers 00:00:00 00:00:00 Only Unassigned, YOMI 350.1.13.10 [facility] [id number] [place] as [id number] [address] 2020-07-26 2020-07-26 Outpatient STLMLC STLMLC [id number] Common 00:00:00 00:00:00 [facility] 2020-07-15 2020-07-15 Jani [facility] Orthopedics 7 [id number] [place] 13:15:00 13:15:00 t; Mireille JIMÉNEZ Ph, M.D. ans STEPHEN, M.D. 2020-07-15 2020-07-15 Outpatient STLMLC STLMLC [id number] Common 00:00:00 00:00:00 [facility] 2020-07-14 2020-07-14 Outpatient STLMLC STLMLC [id number] Common 00:00:00 00:00:00 [facility] 2020-07-06 2020-07-06 Outpatient STLMLC STLMLC [id number] Common 00:00:00 00:00:00 [facility] 2020-07-01 2020-07-01 Outpatient STLMLC STLMLC [id number] Common 00:00:00 00:00:00 [facility] 2020-06-30 2020-06-30 Outpatient STLMLC STLMLC [id number] Common 00:00:00 00:00:00 [facility] 2020-06-16 2020-06-16 Outpatient STLMLC STLMLC [id number] Common 00:00:00 00:00:00 [facility] 2020-06-15 2020-06-15 Jani STARKEY, [facility] Orthopedics 7 [id number] [place] 15:30:00 15:30:00 t; Mireille JIMÉNEZ Mariah Arredondo M.D. 2020-06-04 2020-06-04 Outpatient STLMLC STLMLC [id number] Common 00:00:00 00:00:00 [facility] 2020-05-20 2020-05-26 [facility] [id number] 14:41:00 19:55:00 Encounter Regina Leach [id number] [facility] [id number] [id number] 2020-05-20 2020-05-26 [facility] [id number] [facility] 14:41:00 19:55:00 Encounter Regina Leach 350.1.13.10 ity of [facility] 4.2.7.2.686 [place] [id number] [facility] 094 Branch 2020-05-20 2020-05-20 Emergency [facility] [id number] [facility] 14:41:00 14:41:00 EMMANUELLE MELGAR [facility] 2020-04-26 2020-04-26 [id number] Common 14:21:00 14:21:00 [address] [place] [address] [facility] 2020-04-07 2020-04-07 [facility] [id number] Common 08:03:00 08:03:00 [address] [place] [address] [facility] 2020-04-06 2020-04-06 [facility] [id number] Common 14:45:00 14:45:00 [address] [place] [facility] 2020-03-23 2020-03-23 [facility] [id number] Common 13:45:00 13:45:00 [address] [place] [address] [facility] 2020-03-22 2020-03-22 [facility] [id number] Common 14:18:00 14:18:00 [address] [place] [address] [facility] 2020-03-18 2020-03-18 [facility] [id number] Common 17:11:00 17:11:00 [address] [place] [facility] 2020-03-16 2020-03-16 [facility] [id number] Common 15:15:00 15:15:00 [address] [place] [facility] 2020-03-12 2020-03-12 [facility] [id number] Common 13:47:00 13:47:00 [address] [place] [address] [facility] Results Test Description Test Time Test Comments Results Result [facility] e Comments [U] XRAY SHOULDER 2020-08-19 [facility] MIN 2 VWS LEFT 10:48:00 acquired, not [id number] reported on this accession number. [U] XRAY SHOULDER 2020-07-15 [facility] MIN 2 VWS LEFT 13:19:00 acquired, not [id number] reported on this accession number. [U] XRAY SHOULDER 2020-06-15 [facility] MIN 2 VWS LEFT 16:04:00 acquired, not [id number] reported on this accession number. CBC WITH DIFF 2020-05-26 [...] L [Au tomated message] The system which ge nerated this [...] g/dL 31.6-35.1 L RDW-SD (test code = 13932-8) 54.4 fL 39-49.9 H RDW-CV (test code = 788-0) 17.3 % 12-15.5 H PLT (test code = 777-3) See_Comment [Au tomated message] The system which ge nerated this result transmit nava reference range: 166 - 35 8 10*3/?L. The reference range was not used to interpret th is result as normal/abnormal . MPV (test code = 03679-0) 9.2 fL 9.5-12.9 L NRBC/100 WBC (test code = See_Comment [ Automated message] The [id number]) system which ge nerated this result transmit nava reference range: 0.0 - 10 .0 /100 WBCs. The reference r josias was not used to interpr et this result as normal/abnor mal. NRBC x10^3 (test code = See_Comment [Au tomated message] The [id number]) system which [employer] nerated this result transmit nava reference range: 10*3/?L. The reference range was not u sed to interpret this result as normal/abnormal . GRAN MAT (NEUT) % (test code 46.6 % = 770-8) IMM GRAN % (test code = 9.70 % [id number]) LYMPH % (test code = 736-9) 22.7 % MONO % (test code = 5905-5) 19.3 % EOS % (test code = 713-8) 1.4 % BASO % (test code = 706-2) 0.3 % GRAN MAT x10^3(ANC) (test 3.06 10*3/uL 1.88-7.09 code = 0898918230) IMM GRAN x10^3 (test code = 0.64 10*3/uL 0-0.06 H 0648816565) LYMPH x10^3 (test code = 1.49 10*3/uL 1.32-3.29 731-0) MONO x10^3 (test code = 1.27 10*3/uL 0.33-0.92 H 742-7) EOS x10^3 (test code = 0.09 10*3/uL 0.03-0.39 711-2) BASO x10^3 (test code = <0.03 0.01-0.07 704-7) BASO STIPPLING (test code = Present A 703-9) POLYCHROMASIA (test code = 2+ See_Comment [Automated message] The 55985-5) system which [employer] nerated this result transmit nava reference range: 2+. The reference range was not used to interpret this result as garett l/abnormal. Lab Interpretation (test Abnormal code = 78650-3) [facility] METABOLIC PANEL (NA, K, CL, CO2, GLUCOSE, BUN, CREATININE, CA)2020-05-26 10:50:00 Test Item Value Reference Range Interpretation Comments NA (test code = 140 mmol/L 135-145 2386901443) K (test code = 3.5 mmol/L 3.5-5 0343231060) CL (test code = 104 mmol/L 98-108 1777567824) CO2 TOTAL (test code = 29 mmol/L 23-31 8695757487) AGAP (test code = 2-16 9585159155) BUN (test code = 40 mg/dL 7-23 H 0318382019) GLUCOSE (test code = 168 mg/dL 70-110 H 4293895389) CREATININE (test code = 1.50 mg/dL 0.5-1.04 H 5104946393) CALCIUM (test code = 8.6 mg/dL 8.6-10.6 3353676048) eGFR Calculation mL/min/1.73m2 (Non-) (test code = 5078860437) eGFR Calculation mL/min/1.73m2 () (test code = 4445552651) SANDEEP (test code = SANDEEP) Association of [...] tests). Lab Interpretation Abnormal (test code = 87292-3) [facility]), WHOLE [id number] 18:39:00 Test Item Value Reference Range Interpretation Comments Vitamin B1, Whole 44 nmol/L 70-180 L INTERPRETI VE Blood (test code = INFORMATI ON: Vitamin 59479-5) B1, Whole Blood This assay measures the concentration o f thiamine diphos phate (TDP), the prim kallie active form of vitamin B1. Approximate ly 90 percent of melissa min B1 present in whol e blood is TDP. Thiamin e and thiamine monophosphate, which comprise the re maining 10 percent, are not measured. Test developed and characteristics determined by [employer]. S ee Compliance Stat ement B: [employer]/CSP erforme d By: [address] [place] [address] [id number] Director: Liliana Brito MD Lab Interpretation Abnormal (test code = 17984-8) [facility] (NA, K, CL, CO2, GLUCOSE, BUN, CREATININE, CA)2020-05-25 10:17:00 Test Item Value Reference Range Interpretation Comments NA (test code = 140 mmol/L 135-145 [id number]) K (test code = 3.8 mmol/L 3.5-5 [id number]) CL (test code = 105 mmol/L 98-108 [id number]) CO2 TOTAL (test code = 29 mmol/L 23-31 [id number]) AGAP (test code = 2-16 2116970745) BUN (test code = 47 mg/dL 7-23 H 2153719216) GLUCOSE (test code = 114 mg/dL 70-110 H 9244087439) CREATININE (test code = 1.63 mg/dL 0.5-1.04 H 7416287765) CALCIUM (test code = 9.1 mg/dL 8.6-10.6 4214965615) eGFR Calculation mL/min/1.73m2 (Non-) (test code = 5062684258) eGFR Calculation mL/min/1.73m2 () (test code = 7795320702) SANDEEP (test code = SANDEEP) Association of [...] tests). Lab Interpretation Abnormal (test code = 75188-2) [facility] WITH [id number] 09:45:00 Test Item Value Reference Range Interpretation Comments WBC (test code = See_Comment [Automated 3597-2) message] The sy stem which generated this result transmitted reference range : 4.30 - 11.10 10*3/?L. The reference range was not used to interpret this result as normal/abnormal . RBC (test code = See_Comment L [Automated 109-8) message] The sy stem which generated this [...] (test code = 51.3 fL 39-49.9 H 97125-6) RDW-CV (test code = 16.7 % 12-15.5 H 788-0) PLT (test code = See_Comment [Automated 777-3) message] The sy stem which generated this result transmitted reference range : 166 - 358 10*3/ ?L. The reference r josias was not used to interpret this result as normal/abnormal . MPV (test code = 9.6 fL 9.5-12.9 60288-4) IPF % (test code = 1.9 % 1.3-7.7 Platelet count 4517926328) measured by fluorescence method. NRBC/100 WBC (test See_Comment [Automat ed code = 4799733937) message] The system which generated this result transmitted reference range : 0.0 - 10.0 /100 WBCs. The refer ence range was not u sed to interpret th is result as normal/abnormal . NRBC x10^3 (test code See_Comment [Auto mated = 6911684191) message] The s ystem which generated this result transmitted reference range : 10*3/?L. The reference range was not used to interpret this result as normal/abnormal . GRAN MAT (NEUT) % 56.7 % (test code = 770-8) IMM GRAN % (test code 6.90 % = 9869568016) LYMPH % (test code = 14.5 % 736-9) MONO % (test code = 20.2 % 5905-5) EOS % (test code = 0.9 % 713-8) BASO % (test code = 0.8 % 706-2) GRAN MAT x10^3(ANC) 4.25 10*3/uL 1.88-7.09 (test code = 1642261694) IMM GRAN x10^3 (test 0.52 10*3/uL 0-0.06 H code = 3229548059) LYMPH x10^3 (test code 1.09 10*3/uL 1.32-3.29 L = 731-0) MONO x10^3 (test code 1.52 10*3/uL 0.33-0.92 H = 742-7) EOS x10^3 (test code = 0.07 10*3/uL 0.03-0.39 711-2) BASO x10^3 (test code 0.06 10*3/uL 0.01-0.07 = 704-7) BASO STIPPLING (test Present A code = 703-9) HYPERSEG NEUTS (test Present See_Comment A [Autom ated code = 765-8) message] The s [place] [employer] which generated this result transmitted reference range : (none). The reference range was not used to interpret this result as normal/abnormal . Lab Interpretation Abnormal (test code = 76423-0) [facility] 09[facility]30:00 Test Item Value Reference Range Interpretation Comments MAGNESIUM (test code = 5809356791) 2.3 mg/dL 1.7-2.4 Lab Interpretation (test code = Normal 57282-9) [facility] CenterPOSD GLUCOSE (AUTOMATED)2020-05-24 22:30:00 Test Item Value Reference Range Interpretation Comments POCT GLU (test code = 9755307939) 148 mg/dL 70-110 H Lab Interpretation (test code = Abnormal 72778-9) [facility] CenterVancomycin Random [id number] 20:33:00 Test Item Value Reference Range Interpretation Comments VANCO RANDOM (test code = 19.0 ug/mL 2766999030) [facility] CenterBLOOD CULTURE [id number] 16:13:00 Test Item Value Reference Range Interpretation Comments Blood Culture Staphylococcus Organism william ntified Workup (test epidermidis by DNA probeFor code = 600-7) susceptibility results, refer to culture # - [id number] Gram stain Isolated from aerobic This i s an appended (test code = bottle Gram positive report. These 664-3) cocci results have be en appended to a previously preliminary ramone ified report. [facility] CenterVanhighland ridge hospitalycin Random [id number] 11:34:00 Test Item Value Reference Range Interpretation Comments VANCO RANDOM (test code = 22.3 ug/mL 4725542146) [facility] CenterBASIC METABOLIC PANEL (NA, K, CL, CO2, GLUCOSE, BUN, CREATININE, CA)2020-05-24 11:29:00 Test Item Value Reference Range Interpretation Comments NA (test code = 137 mmol/L 135-145 1728990448) K (test code = 4.5 mmol/L 3.5-5 Slight 4218405166) hemolysis CL (test code = 107 mmol/L 98-108 1244487375) CO2 TOTAL (test code 23 mmol/L 23-31 = 8974646227) AGAP (test code = 2-16 9573876842) BUN (test code = 54 mg/dL 7-23 H Slight 5544830916) hemolysis GLUCOSE (test code = 99 mg/dL 70-110 0041106482) CREATININE (test code 1.86 mg/dL 0.5-1.04 H = 2860541553) CALCIUM (test code = 8.6 mg/dL 8.6-10.6 7015843502) eGFR Calculation mL/min/1.73m2 (Non-) (test code = 3073320117) eGFR Calculation mL/min/1.73m2 () (test code = 4482729435) SANDEEP (test code = SANDEEP) Association of [...] tests). Lab Interpretation Abnormal (test code = 89988-5) [facility]2020-[facility]-12 11:29:00 Test Item Value Reference Range Interpretation Comments MAGNESIUM (test code = 8240429422) 1.5 mg/dL 1.7-2.4 L Lab Interpretation (test code = Abnormal 28948-6) [facility] CenterVancomycin Trough Level - Draw within 30 minutes prior to 4TH dose.2020-05-23 19:20:00 Test Item Value Reference Range Interpretation Comments VANCO TROUGH (test code 12.1 ug/mL 06-01 = 1815291300) SANDEEP (test code = SANDEEP) Toxic Range: ?>20 ug/mL 15-20 ug/mL is recommended for severe infection or when Vancomycin PIA is greater than or equal to 2. Lab Interpretation (test Normal code = 42486-4) [facility] CenterCLOSTRIDIUM DIFFICILE [id number] 15:36:00 Test Item Value Reference Range Interpretation Comments Clostridioides (Clostridium) Negative Negative difficile (test code = 92160-7) Lab Interpretation (test code = Normal 54965-4) [facility] CenterCT SHOULDER LEFT WO [id number] 15:02:04 Proximal humerus fracture extending through the [...] impaction and posterior fragment displacement with joint effusion.[facility] CenterRailRunner CULTURE [id number] 13:38:00 Test Item Value Reference Range Interpretation Comments Blood Culture-Aerobic Culture positive. No growth AA P revious (test code = 17300-0) See Blood prelim inary Culture Workup verified resu lt for additional was Culture I n information. Progress on 05/22/2020 at 0003 CDT Blood Culture positive. No growth AA Previous Culture-Anaerobic See Blood preliminar y (test code = 32641-3) Culture Workup veri fied result for additional was Culture I n information. Progress on 05/21/2020 at 06 01 CDT Lab Interpretation Abnormal (test code = 82093-5) [facility] CULTURE [id number] 13:36:00 Test Item Value Reference Range Interpretation Comments Blood Culture-Aerobic Culture positive. No growth AA P revious (test code = 95082-1) See Blood prelim inary Culture Workup verified resu lt for additional was Culture I n information. Progress on 05/21/2020 at 06 01 CDT Blood Culture positive. No growth AA Previous Culture-Anaerobic See Blood preliminar y (test code = 00821-1) Culture Workup veri fied result for additional was Culture I n information. Progress on 05/21/2020 at 06 01 CDT Lab Interpretation Abnormal (test code = 41654-7) [facility] WITH [id number] 10:10:00 Test Item Value Reference Range Interpretation [...] RDW-SD (test code = 48.9 fL 39-49.9 82726-7) RDW-CV (test code = 15.9 % 12-15.5 H 788-0) PLT (test code = See_Comment L [Automated 777-3) message] The sy stem which generated this result transmitted reference range : 166 - 358 10*3/ ?L. The reference r josias was not used to interpret this result as normal/abnormal . MPV (test code = 10.2 fL 9.5-12.9 01504-1) NRBC/100 WBC (test See_Comment [Automat ed code = 8028707664) message] The system which generated this result transmitted reference range : 0.0 - 10.0 /100 WBCs. The refer ence range was not u sed to interpret th is result as normal/abnormal . NRBC x10^3 (test code See_Comment [Auto mated = 7038180443) message] The s ystem which generated this result transmitted reference range : 10*3/?L. The reference range was not used to interpret this result as normal/abnormal . GRAN MAT (NEUT) % 64.1 % (test code = 770-8) IMM GRAN % (test code 5.10 % = 0747049670) LYMPH % (test code = 20.9 % 736-9) MONO % (test code = 8.4 % 5905-5) EOS % (test code = 1.1 % 713-8) BASO % (test code = 0.4 % 706-2) GRAN MAT x10^3(ANC) 2.88 10*3/uL 1.88-7.09 (test code = 8495917069) IMM GRAN x10^3 (test 0.23 10*3/uL 0-0.06 H code = 9819720858) LYMPH x10^3 (test code 0.94 10*3/uL 1.32-3.29 L = 731-0) MONO x10^3 (test code 0.38 10*3/uL 0.33-0.92 = 742-7) EOS x10^3 (test code = 0.05 10*3/uL 0.03-0.39 711-2) BASO x10^3 (test code <0.03 0.01-0.07 = 704-7) TOXIC CHANGES (test Present A code = 803-7) Lab Interpretation Abnormal (test code = 26388-1) [facility] METABOLIC PANEL (NA, K, CL, CO2, GLUCOSE, BUN, CREATININE, CA)2020-05-23 09:52:00 Test Item Value Reference Range Interpretation Comments NA (test code = 134 mmol/L 135-145 L 6451154964) K (test code = 3.5 mmol/L 3.5-5 4748768038) CL (test code = 104 mmol/L 98-108 7328646853) CO2 TOTAL (test code = 22 mmol/L 23-31 L 2808520206) AGAP (test code = 2-16 9625077542) BUN (test code = 55 mg/dL 7-23 H 0615250845) GLUCOSE (test code = 142 mg/dL 70-110 H 5060499449) CREATININE (test code = 2.04 mg/dL 0.5-1.04 H 6812270997) CALCIUM (test code = 8.3 mg/dL 8.6-10.6 L 5538626440) eGFR Calculation mL/min/1.73m2 (Non-) (test code = 9720437082) eGFR Calculation mL/min/1.73m2 () (test code = 2884534906) SANDEEP (test code = SANDEEP) Association of [...] tests). Lab Interpretation Abnormal (test code = 59083-1) [facility]MAGN[facility]IUM2020-10-11 09:52:00 Test Item Value Reference Range Interpretation Comments MAGNESIUM (test code = 6895426228) 1.8 mg/dL 1.7-2.4 Lab Interpretation (test code = Normal 66885-0) [facility] WITHOUT [id number] 15:23:00 Test Item Value Reference Range Interpretation Comments WBC (test code = 6690-2) See_Comment [A utomated message] The system [employer] generated this result transmit nava reference range : 4.30 - 11.10 10*3/?L. The reference range was not used to interpret this result as normal/abnormal . RBC (test code = 789-8) See_Comment L [Au tomated message] The system [employer] generated this result transmit nava reference range [...] See_Comment L [Au tomated message] The system [employer] generated this result transmit anva reference range : 166 - 358 10*3/?L. The reference range was not used to interpret this result as normal/abnormal . MPV (test code = 10.2 fL 9.5-12.9 13802-5) RDW-CV (test code = 15.6 % 12-15.5 H 788-0) RDW-SD (test code = 48.3 fL 39-49.9 70673-3) NRBC x10^3 (test code = See_Comment [Au tomated message] 4454398857) The system [employer] generated this result transmit nava reference range : 10*3/?L. The reference range was not used to interpret this result as normal/abnormal . NRBC/100 WBC (test code See_Comment [Au tomated message] = 1210552049) The system [employer] generated this result transmit nava reference range : 0.0 - 10.0 /100 WBC s. The reference r josias was not used to interpret this result as normal/abnormal . IPF % (test code = 9494794925) Lab Interpretation (test Abnormal code = 78219-7) [facility] METABOLIC PANEL (NA, K, CL, CO2, GLUCOSE, BUN, CREATININE, CA)2020-05-22 08:05:00 Test Item Value Reference Range Interpretation Comments NA (test code = 134 mmol/L 135-145 L 8694078919) K (test code = 3.3 mmol/L 3.5-5 L 9894077250) CL (test code = 103 mmol/L 98-108 3926902032) CO2 TOTAL (test code = 23 mmol/L 23-31 1067525755) AGAP (test code = 2-16 9795649120) BUN (test code = 57 mg/dL 7-23 H 9829474573) GLUCOSE (test code = 130 mg/dL 70-110 H 9925509024) CREATININE (test code = 2.26 mg/dL 0.5-1.04 H 6386299929) CALCIUM (test code = 8.0 mg/dL 8.6-10.6 L 7998387684) eGFR Calculation mL/min/1.73m2 (Non-) (test code = 5412811288) eGFR Calculation mL/min/1.73m2 () (test code = 3926225844) SANDEEP (test code = SANDEEP) Association of [...] tests). Lab Interpretation Abnormal (test code = 66265-3) [facility]MAG[facility]UM2020-10-10 08:05:00 Test Item Value Reference Range Interpretation Comments MAGNESIUM (test code = 1636142234) 2.4 mg/dL 1.7-2.4 Lab Interpretation (test code = Normal 74210-8) [facility] WITH [id number] 07:44:00 Test Item Value Reference Range Interpretation Comments WBC (test code = See_Comment [Automated 9990-2) message] The sy stem which generated this result transmitted reference range : 4.30 - 11.10 10*3/?L. The reference range was not used to interpret this result as normal/abnormal . RBC (test code = See_Comment L [Automated 889-8) message] The sy stem which generated this [...] RDW-SD (test code = 48.8 fL 39-49.9 04810-8) RDW-CV (test code = 15.9 % 12-15.5 H 788-0) PLT (test code = See_Comment L [Automated 777-3) message] The sy stem which generated this result transmitted reference range : 166 - 358 10*3/ ?L. The reference r josias was not used to interpret this result as normal/abnormal . MPV (test code = 10.2 fL 9.5-12.9 04648-8) NRBC/100 WBC (test See_Comment [Automat ed code = 2899102798) message] The system which generated this result transmitted reference range : 0.0 - 10.0 /100 WBCs. The refer ence range was not u sed to interpret th is result as normal/abnormal . NRBC x10^3 (test code See_Comment [Auto mated = 4014979485) message] The s ystem which generated this result transmitted reference range : 10*3/?L. The reference range was not used to interpret this result as normal/abnormal . GRAN MAT (NEUT) % 78.8 % (test code = 770-8) IMM GRAN % (test code 1.10 % = 6581393110) LYMPH % (test code = 12.3 % 736-9) MONO % (test code = 6.5 % 5905-5) EOS % (test code = 1.2 % 713-8) BASO % (test code = 0.1 % 706-2) GRAN MAT x10^3(ANC) 7.21 10*3/uL 1.88-7.09 H (test code = 8028232347) IMM GRAN x10^3 (test 0.10 10*3/uL 0-0.06 H code = 1167281433) LYMPH x10^3 (test code 1.12 10*3/uL 1.32-3.29 L = 731-0) MONO x10^3 (test code 0.59 10*3/uL 0.33-0.92 = 742-7) EOS x10^3 (test code = 0.11 10*3/uL 0.03-0.39 711-2) BASO x10^3 (test code <0.03 0.01-0.07 = 704-7) Lab Interpretation Abnormal (test code = 24230-2) [facility] CenterGRAM POSITIVE BLOOD PATHOGENS DNA [id number] 06:07:00 Test Item Value Reference Range Interpretation Comments Coagulase Negative Positive Negative, See A Staphylococcus (test Comment/Narrative code = 66006-8) SANDEEP (test code = SANDEEP) Coagulase negative [...] contact the Antimicrobial Stewardship Program with questions.Pager: ?[phone] Testing included eleven identification and three resistance marker targets. Lab Interpretation Abnormal (test code = 70970-3) [facility] CenterVancomycin Random [id number] 04:46:00 Test Item Value Reference Range Interpretation Comments VANCO RANDOM (test code = 5066243062) <5.0 ug/mL [facility] CenterCBC WITHOUT [id number] 23:31:00 Test Item Value Reference Range Interpretation Comments WBC (test code = 6690-2) See_Comment [A utomated message] The system [employer] generated this result transmit nava reference range : 4.30 - 11.10 10*3/?L. The reference range was not used to interpret this result as normal/abnormal . RBC (test code = 789-8) See_Comment L [Au tomated message] The system [employer] generated this result transmit nava reference range [...] See_Comment L [Au tomated message] The system [facility] generated this result transmit nava reference range : 166 - 358 10*3/?L. The reference range was not used to interpret this result as normal/abnormal . MPV (test code = 10.5 fL 9.5-12.9 14230-2) RDW-CV (test code = 16.0 % 12-15.5 H 788-0) RDW-SD (test code = 49.4 fL 39-49.9 27776-0) NRBC x10^3 (test code = <0.01 See_Comment [Au tomated message] 3175954854) The system [facility] generated this result transmit nava reference range : 10*3/?L. The reference range was not used to interpret this result as normal/abnormal . NRBC/100 WBC (test code See_Comment [Au tomated message] = 7006389891) The system [facility] generated this result transmit nava reference range : 0.0 - 10.0 /100 WBC s. The reference r josias was not used to interpret this result as normal/abnormal . IPF % (test code = 9308507687) Lab Interpretation (test Abnormal code = 00419-3) [facility] CenterCREATINE [id number] 21:30:00 Test Item Value Reference Range Interpretation Comments CK (test code = 6657297734) 2974 U/L 33-194 H Lab Interpretation (test code = Abnormal 68082-4) [facility] CenterCREATINE [id number] 20:54:00 Test Item Value Reference Range Interpretation Comments CK (test code = 3085304261) 4670 U/L 33-194 H Lab Interpretation (test code = Abnormal 85157-8) [facility] CenterURINE [id number] 20:43:00 Test Item Value Reference Range Interpretation Comments URINE CULTURE (test No aerobic growth (< code = 630-4) 1000 CFU/mL) [facility] CenterPOCT [id number] 19:00:00 Test Item Value Reference Range Interpretation Comments POCT Creatinine (test code = 7.4 mg/dL 0.5-1.1 H 6454699968) Lab Interpretation (test code = Abnormal 44345-2) [facility] CenterMRSA / MSSA Screen by PCR, [id number] 16:40:00 Test Item Value Reference Range Interpretation Comments MSSA Screen by PCR, Positive Negative A Nares (test code = 67854-2) MRSA/MSSA Positive? Yes No A (test code = 0695750301) SANDEEP (test code = SANDEEP) A positive test result does not necessarily indicate the presence of viable organism. Lab Interpretation (test Abnormal code = 66749-8) [facility] CenterXR HUMERUS 2 VW [id number] 15:55:36 Stable appearing greater tuberosity fracture. Lateral [...] fracture.Lateral femoral condyle avascular necrosis versus osteochondral defect.[facility] CenterXR ELBOW <3 VW [id number] 15:55:36 Stable appearing greater tuberosity fracture. 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 Lateral [...] fracture.Lateral femoral condyle avascular necrosis versus osteochondral defect.[facility] CenterHEPATIC FUNCTION PANEL (94892) (ALB,T.PRO,BILI T,BU/BC,ALT,AST,ALK PHOS)2020-05-21 13:04:00 Test Item Value Reference Range Interpretation Comments TOTAL BILI (test code = 5995575259) 0.7 mg/dL 0.1-1.1 BILI UNCON (test code = 0011889031) 0.6 mg/dL 0.1-1.1 BILI CONJ (test code = 7954701065) 0.0 mg/dL 0-0.3 T PROTEIN (test code = 2495675346) 5.5 g/dL 6.3-8.2 L ALBUMIN (test code = 9388632592) 2.8 g/dL 3.5-5 L ALK PHOS (test code = 0249250278) 66 U/L 34-122 ALTv (test code = 1742-6) 30 U/L 5-35 AST(SGOT) (test code = 3719057489) 163 U/L 13-40 H Lab Interpretation (test code = Abnormal 86526-4) [facility] CenterXR SHOULDER 2+ VW [id number] 10:30:08 Greater tuberosity fracture. EXAM: XR HIPS [...] and facetarthropathy with spondylosis are partially visualized. [facility], Radiant Results Inft User - 05/21/2020 5:31 [...] facetarthropathy with spondylosis are partially visualized.IMPRESSIONGreater tuberosity fracture.[facility] CenterXR HIPS 2 VW [id number] 10:30:08 Greater tuberosity fracture. EXAM: XR HIPS [...] and facetarthropathy with spondylosis are partially visualized. [facility], Radiant Results Inft User - 05/21/2020 5:31 [...] facetarthropathy with spondylosis are partially visualized.IMPRESSIONGreater tuberosity fracture.[facility] WITH [id number] 09:30:00 Test Item Value Reference Range Interpretation [...] RDW-SD (test code = 49.7 fL 39-49.9 50819-1) RDW-CV (test code = 15.9 % 12-15.5 H 788-0) PLT (test code = See_Comment L [Automated 777-3) message] The sy stem which generated this result transmitted reference range : 166 - 358 10*3/ ?L. The reference r josias was not used to interpret this result as normal/abnormal . MPV (test code = 10.3 fL 9.5-12.9 40202-5) NRBC/100 WBC (test See_Comment [Automat ed code = 2875138015) message] The system which generated this result transmitted reference range : 0.0 - 10.0 /100 WBCs. The refer ence range was not u sed to interpret th is result as normal/abnormal . NRBC x10^3 (test code See_Comment [Auto mated = 1338574992) message] The s ystem which generated this result transmitted reference range : 10*3/?L. The reference range was not used to interpret this result as normal/abnormal . GRAN MAT (NEUT) % 85.4 % (test code = 770-8) IMM GRAN % (test code 0.80 % = 3604262550) LYMPH % (test code = 7.7 % 736-9) MONO % (test code = 5.8 % 5905-5) EOS % (test code = 0.2 % 713-8) BASO % (test code = 0.1 % 706-2) GRAN MAT x10^3(ANC) 9.49 10*3/uL 1.88-7.09 H (test code = 1622591372) IMM GRAN x10^3 (test 0.09 10*3/uL 0-0.06 H code = 6783152025) LYMPH x10^3 (test code 0.86 10*3/uL 1.32-3.29 L = 731-0) MONO x10^3 (test code 0.65 10*3/uL 0.33-0.92 = 742-7) EOS x10^3 (test code = <0.03 0.03-0.39 L 711-2) BASO x10^3 (test code <0.03 0.01-0.07 = 704-7) BANDS (test code = Increased A 4444746464) Lab Interpretation Abnormal (test code = 57190-2) [facility] CenterMAGNESIUM2020-10-09 09:26:00 Test Item Value Reference Range Interpretation Comments MAGNESIUM (test code = 8724774722) 9.7 mg/dL 1.7-2.4 H Lab Interpretation (test code = Abnormal 22690-6) [facility] METABOLIC PANEL (NA, K, CL, CO2, GLUCOSE, BUN, CREATININE, CA)2020-05-21 09:13:00 Test Item Value Reference Range Interpretation Comments NA (test code = 132 mmol/L 135-145 L 4190484310) K (test code = 3.9 mmol/L 3.5-5 5586119192) CL (test code = 104 mmol/L 98-108 4035956161) CO2 TOTAL (test code = 15 mmol/L 23-31 L 4086015611) AGAP (test code = 2-16 5665076203) BUN (test code = 62 mg/dL 7-23 H 0629973235) GLUCOSE (test code = 114 mg/dL 70-110 H 9676444839) CREATININE (test code = 4.07 mg/dL 0.5-1.04 H 6346097669) CALCIUM (test code = 7.5 mg/dL 8.6-10.6 L 1203858784) eGFR Calculation mL/min/1.73m2 (Non-) (test code = 7445803880) eGFR Calculation mL/min/1.73m2 () (test code = 8706470944) SANDEEP (test code = SANDEEP) Association of [...] tests). Lab Interpretation Abnormal (test code = 27382-4) [facility] CenterTROPONIN [id number] 09:13:00 Test Item Value Reference Range Interpretation Comments TROPONIN I (test 0.113 ng/mL See_Comment H [Automated code = 7927881925) message] The system which generated this result [...] ? Lab Interpretation Abnormal (test code = 67525-7) [facility] CenterVITAMIN B12, [id number] 05:54:00 Test Item Value Reference Range Interpretation Comments VIT B12 (test code = 352 pg/mL 240-930 3694053859) SANDEEP (test code = SANDEEP) Biotin has been reported to cause a positive bias, interpret results relative to patient's use of biotin. Lab Interpretation (test Normal code = 98376-4) [facility] CenterFOLATE2020-10-09 05:54:00 Test Item Value Reference Range Interpretation Comments FOLATE SER (test code = 9500971831) 9.5 ng/mL 3-20 Lab Interpretation (test code = Normal 01672-9) [facility] CenterMAGNESIUM2020-10-09 04:48:00 Test Item Value Reference Range Interpretation Comments MAGNESIUM (test code = 7515792858) 1.7 mg/dL 1.7-2.4 Lab Interpretation (test code = Normal 17120-7) [facility] CenterTHYROID STIMULATING [id number] 04:04:00 Test Item Value Reference Range Interpretation Comments TSH (test code = See_Comment [Automated message] 8672258887) The system [employer] generated this result transmitted ref erence range: 0.45 - 4 .70 mIU/L. The refe rence range was not u sed to interpret this result as normal/abnor mal. Lab Interpretation (test Normal code = 54823-6) [facility] CenterCREATINE [id number] 03:33:00 Test Item Value Reference Range Interpretation Comments CK (test code = [id number]) 6736 U/L 33-194 H Lab Interpretation (test code = Abnormal 54786-6) [facility] [id number] 02:39:00 Test Item Value Reference Range Interpretation Comments TROPONIN I (test 0.113 ng/mL See_Comment H [Automated code = 0285747597) message] The system which generated this result [...] ? Lab Interpretation Abnormal (test code = 91119-4) [facility] 00:55:00 Test Item Value Reference Range Interpretation Comments APPEARANCE (test code = Cloudy Clear A 5433464186) COLOR (test code = Riri Yellow A 6137429049) PH (test code = 4.8-8.0 4473513084) SP GRAVITY (test code = 1.003-1.030 5309516418) GLU U QUAL (test code = 50 mg/dL Normal A 4061671189) BLOOD (test code = 3+ Negative A 7930137889) KETONES (test code = 5 mg/dL Negative A 8988553820) PROTEIN (test code = 100 mg/dL Negative A 2887-8) UROBILIN (test code = Normal Normal 1167106371) BILIRUBIN (test code = Negative Negative 4139272804) NITRITE (test code = Negative Negative 3194076394) LEUK SPIKE (test code = Negative Negative 3304429007) RBC/HPF (test code = See_Comment [Autom ated message] 0670385508) The system [employer] generated this result transmit nava reference range : 0 - 3 HPF. The refe rence range was not u sed to interpret th is result as normal/abnormal . WBC/HPF (test code = See_Comment [Autom ated message] 4556904076) The system [employer] generated this result transmit nava reference range : 0 - 5 HPF. The refe rence range was not u sed to interpret th is result as normal/abnormal . BACTERIA (test code = Few Negative A 6609600849) MUCOUS (test code = Moderate Negative LPF A 2179818502) SQ EPITH (test code = See_Comment H [Auto mated message] 6606165622) The system [employer] generated this result transmit nava reference range : <=2 HPF. The refere nce range was not u sed to interpret th is result as normal/abnormal . HYAL CAST (test code = See_Comment H [Aut omated message] 5635607306) The system [employer] generated this result transmit nava reference range : <=2 LPF. The refere nce range was not u sed to interpret th is result as normal/abnormal . Lab Interpretation (test Abnormal code = 30807-6) [facility]LIPASE2020-[facility] 00:37:00 Test Item Value Reference Range Interpretation Comments LIPASE (test code = 1631973361) 3911 U/L 0-220 H Lab Interpretation (test code = Abnormal 14834-0) [facility] CenterPROCALCITONIN2020-10-09 00:37:00 Test Item Value Reference Range Interpretation Comments Procalcitonin (test 4.99 ng/mL <0.07 H code = 6311696682) SANDEEP (test code = SANDEEP) INTERPRETATION OF [...] lung abscess/empyema. For further information please refer to:[email or web address] Lab Interpretation Abnormal (test code = 01194-9) [facility] CenterMAGNESIUM2020-10-09 00:18:00 Test Item Value Reference Range Interpretation Comments MAGNESIUM (test code = 2908343732) 1.8 mg/dL 1.7-2.4 Lab Interpretation (test code = Normal 23714-0) [facility] CenterPHOSPHORUS2020-10-09 00:18:00 Test Item Value Reference Range Interpretation Comments PHOSPHORUS (test code = 6338920885) 3.1 mg/dL 2.5-5 Lab Interpretation (test code = Normal 25396-7) [facility] CenterBASIC METABOLIC PANEL (NA, K, CL, CO2, GLUCOSE, BUN, CREATININE, CA)2020-05-21 00:18:00 Test Item Value Reference Range Interpretation Comments NA (test code = 132 mmol/L 135-145 L 8931338169) K (test code = 4.2 mmol/L 3.5-5 0127412017) CL (test code = 103 mmol/L 98-108 2250603887) CO2 TOTAL (test code = 16 mmol/L 23-31 L 2751369264) AGAP (test code = 2-16 5052081399) BUN (test code = 66 mg/dL 7-23 H 9684892850) GLUCOSE (test code = 113 mg/dL 70-110 H 5263688057) CREATININE (test code = 5.17 mg/dL 0.5-1.04 H 8867766927) CALCIUM (test code = 7.2 mg/dL 8.6-10.6 L 6352022459) eGFR Calculation mL/min/1.73m2 (Non-) (test code = 0905808323) eGFR Calculation mL/min/1.73m2 () (test code = 2251589639) SANDEEP (test code = SANDEEP) Association of [...] tests). Lab Interpretation Abnormal (test code = 64841-3) [facility] CenterD-[id number] 23:55:00 Test Item Value Reference Interpretation Comments Range D-DIMER (test code = See_Comment H [Autom ated 1967688543) message] The system which generated this result [...] diagnosis. Lab Interpretation Abnormal (test code = 38500-5) [facility] CenterFIBRINOGEN2020-10-08 23:55:00 Test Item Value Reference Range Interpretation Comments Fibrinogen (test code = 5118525485) 389 mg/dL 167-453 Lab Interpretation (test code = Normal 07680-4) [facility] CenterCREATININE, URINE [id number] 23:53:00 Test Item Value Reference Range Interpretation Comments CREAT U (test code = 3311259185) 101.7 mg/dL [facility] CenterUREA NITROGEN, URINE [id number] 23:53:00 Test Item Value Reference Range Interpretation Comments UREA N UR (test code = 6965435442) 301 mg/dL [facility] CenterCBC WITH [id number] 23:49:00 Test Item Value Reference Range Interpretation Comments WBC (test code = See_Comment [Automated 2590-2) message] The sy stem which generated this result transmitted reference range : 4.30 - 11.10 10*3/?L. The reference range was not used to interpret this result as normal/abnormal . RBC (test code = See_Comment L [Automated 929-8) message] The sy stem which generated this [...] RDW-SD (test code = 47.8 fL 39-49.9 63501-2) RDW-CV (test code = 15.8 % 12-15.5 H 788-0) PLT (test code = See_Comment L [Automated 777-3) message] The sy stem which generated this result transmitted reference range : 166 - 358 10*3/ ?L. The reference r josias was not used to interpret this result as normal/abnormal . MPV (test code = 9.6 fL 9.5-12.9 87541-9) NRBC/100 WBC (test See_Comment [Automat ed code = 2818570393) message] The system which generated this result transmitted reference range : 0.0 - 10.0 /100 WBCs. The refer ence range was not u sed to interpret th is result as normal/abnormal . NRBC x10^3 (test code See_Comment [Auto mated = 1975205995) message] The s ystem which generated this result transmitted reference range : 10*3/?L. The reference range was not used to interpret this result as normal/abnormal . GRAN MAT (NEUT) % 85.9 % (test code = 770-8) IMM GRAN % (test code 1.10 % = 6426451826) LYMPH % (test code = 7.3 % 736-9) MONO % (test code = 5.6 % 5905-5) EOS % (test code = 0.0 % 713-8) BASO % (test code = 0.1 % 706-2) GRAN MAT x10^3(ANC) 8.16 10*3/uL 1.88-7.09 H (test code = 2063647505) IMM GRAN x10^3 (test 0.10 10*3/uL 0-0.06 H code = 9627064762) LYMPH x10^3 (test code 0.69 10*3/uL 1.32-3.29 L = 731-0) MONO x10^3 (test code 0.53 10*3/uL 0.33-0.92 = 742-7) EOS x10^3 (test code = <0.03 0.03-0.39 L 711-2) BASO x10^3 (test code <0.03 0.01-0.07 = 704-7) Lab Interpretation Abnormal (test code = 40281-4) [facility] CenterXR CHEST 1 [id number] 23:46:21 Bilateral interstitial prominence most prominent within [...] abnormality is identified. Resuscitation pads projectoverthe chest. [facility], Radiant Results Inft User - 05/20/2020 6:47 [...] consider checking BNP.Preliminary Report Dictated by Resident: Obadah EzzeldinI, Dustin Klimkowski, MD., have reviewed this study and agree with theabove report. [facility] CenterCentral [id number] 23:30:25Emmanuelle Melgar, DO ? ? 05/20/2020 ?6:30 PMCentral LinePerformed by: Emmanuelle Melgar, DOAuthorized by: Emmanuelle Melgar DO Consent: ?Consent [...] tolerance of procedure: ?Tolerated well, no immediate complicationsUnQuail Creek Surgical HospitalN-TERMINAL PRO-BNP 2020-05-20 23:28:00 Test Item Value Reference Range Interpretation Comments NT-proBNP (test code 24822 pg/mL See_Comment H [Autom ated = 3335161499) message] The system which generated this result transmitted reference range : <=125. The reference range was not used to interpret this result as normal/abnormal . SANDEEP (test code = SANDEEP) Biotin has been reported to cause a negative bias, interpret results relative to patient's use of biotin. Lab Interpretation Abnormal (test code = 87247-8) [facility] CARE VENOUS BLOOD [id number] 23:13:00 Test Item Value Reference Range Interpretation Comments PH (test code = 7.32-7.42 LL 2424088812) PCO2 MASTER (test code = See_Comment [Auto mated message] 0781295466) The system [employer] generated this result transmitted ref erence range: 41 - 51 mmHg. The reference r josias was not used to interpret this result as normal/abnor mal. PO2 MASTER (test code = See_Comment H [Autom ated message] 8543161411) The system [employer] generated this result transmitted ref erence range: 25 - 40 mmHg. The reference r josias was not used to interpret this result as normal/abnor mal. HCO3 MASTER (test code = See_Comment L [Auto mated message] 5942733069) The system [employer] generated this result transmitted ref erence range: 24 - 28 mEq/L. The reference r josias was not used to interpret this result as normal/abnor mal. AC VBE(BEAKER) (test mEq/L code = 1238912933) Lab Interpretation (test Abnormal code = 42799-0) [facility] CenterDrug Screen [id number] 22:50:00 Test Item Value Reference Range Interpretation Comments AMPHET (test code = Negative Negative 5362536130) Cocaine Metabolite (test Negative Negative code = 9267149354) OPIATES (test code = Negative Negative 7628600450) THC (test code = Negative Negative 0981928051) SANDEEP (test code = SANDEEP) Urine Drug Cutoff Ranges Amphetamine: ? 1,000 ng/mLCocaine: ? 150 ng/mLOpiates: ? 300 ng/mLCannabinoids: ?50 ng/mL The results are to be used only for medical (i.e., treatment) purposes. Unconfirmed screening results must not be used for non-medical purposes (e.g., employment testing, legal testing). Lab Interpretation (test Normal code = 34748-1) [facility] CenterLactic Acid Whole [id number] 21:52:00 Test Item Value Reference Range Interpretation Comments LACTIC ACID (test code = 1.91 mmol/L 6582823885) [facility] CenterEthanol [id number] 21:21:00 Test Item Value Reference Range Interpretation Comments ALCOHOL (test code = <10 mg/dL 1016511736) SANDEEP (test code = Toxic Greater than or SANDEEP) equal to 80 mg/dL. NOTE: Whole blood values are approximately 10% to 15% lower than serum and plasma. [facility]COVID[facility] (ID NOW RAPID TESTING)2020-05-20 20:58:00 Test Item Value Reference Range Interpretation Comments SARS-CoV-2 Rapid ID NOW Not Detected Not Detected (test code = 24518-0) SANDEEP (test code = SANDEEP) ID NOW COVID-19 Assay is an isothermal nucleic acid amplification test intended for the qualitative detection of nucleic acid from SARS-CoV-2 viral RNA in nasopharyngeal (AC/DC REWINDER) specimens. It is used under Emergency Use [...] indicated. Lab Interpretation Normal (test code = 39375-8) [facility] CenterCT STROKE HEAD WO [id number] 20:47:16 Mild asymmetry in the cerebral sulci [...] minormodifications, no overt evidence of acuteintracranial abnormality. Cristina Bang MD., have reviewed this study and agree [...] reviewed this study and agree with theabove report.[facility] - Code [id number] 20:20:00 Test Item Value Reference Range Interpretation Comments TROPONIN I (test 0.136 ng/mL See_Comment H [Automated code = 6403622236) message] The system which generated this result [...] ? Lab Interpretation Abnormal (test code = 81375-3) [facility] CenterBasi Metabolic Panel (NA, K, CL, CO2, Glucose, BUN, Creatinine, CA) - Code [id number] 20:09:00 Test Item Value Reference Range Interpretation Comments NA (test code = 126 mmol/L 135-145 L 9190331165) K (test code = 5.7 mmol/L 3.5-5 H Slight 9713776266) hemolysis CL (test code = 92 mmol/L 98-108 L 8176218980) CO2 TOTAL (test code 13 mmol/L 23-31 L = 2427044706) AGAP (test code = 2-16 H 4257697281) BUN (test code = 74 mg/dL 7-23 H Slight 6114066766) hemolysis GLUCOSE (test code = 175 mg/dL 70-110 H 2181782794) CREATININE (test code 6.72 mg/dL 0.5-1.04 H = 4946423558) CALCIUM (test code = 8.9 mg/dL 8.6-10.6 6245383658) eGFR Calculation mL/min/1.73m2 (Non-) (test code = 7440858410) eGFR Calculation mL/min/1.73m2 () (test code = 1407209260) SANDEEP (test code = SANDEEP) Association of [...] tests). Lab Interpretation Abnormal (test code = 56019-9) [facility] CenterProthrombin Time / INR - Code [id number] 20:06:00 Test Item Value Reference Range Interpretation Comments PROTIME PATIENT (test See_Comment L [Auto mated message] code = 5964-2) The system [employer] generated this result transmitted ref erence range: 10.1 - 1 2.6 Seconds. The reference range was not used to int erpret this result as normal/abnormal . INR (test code = 6301-6) Nor mal INR <1.1; Warfarin Therap eutic range 2.0 to 3. 0 or 2.5 to 3.5, dep ending upon the indica tions. Lab Interpretation (test Abnormal code = 48430-4) [facility] CenteraPTT2020-10-08 20:05:00 Test Item Value Reference Range Interpretation Comments APTT Patient (test code = See_Comment [ Automated message] 3173-2) The system [employer] generated this result transmitted ref erence range: 26 - 36 Seconds. The re ference range was not u sed to interpret this result as normal/abnor mal. Lab Interpretation (test Normal code = 61468-6) [facility] without Diff - Code [id number] 19:57:00 Test Item Value Reference Range Interpretation Comments WBC (test code = 6690-2) See_Comment H [A utomated message] The system [employer] generated this result transmit nava reference range : 4.30 - 11.10 10*3/?L. The reference range was not used to interpret this result as normal/abnormal . RBC (test code = 789-8) See_Comment [Au tomated message] The system [employer] generated this result transmit nava reference range [...] See_Comment L [Au tomated message] The system [employer] generated this result transmit nava reference range : 166 - 358 10*3/?L. The reference range was not used to interpret this result as normal/abnormal . MPV (test code = 10.9 fL 9.5-12.9 57244-0) RDW-CV (test code = 15.9 % 12-15.5 H 788-0) RDW-SD (test code = 48.2 fL 39-49.9 77262-2) NRBC x10^3 (test code = See_Comment [Au tomated message] 3401963420) The system [employer] generated this result transmit nava reference range : 10*3/?L. The reference range was not used to interpret this result as normal/abnormal . NRBC/100 WBC (test code See_Comment [Au tomated message] = 8593262903) The system [employer] generated this result transmit nava reference range : 0.0 - 10.0 /100 WBC s. The reference r josias was not used to interpret this result as normal/abnormal . IPF % (test code = 4152528763) Lab Interpretation (test Abnormal code = 06941-2) [facility] CenterPOCT GLUCOSE (AUTOMATED)2020-05-20 19:54:00 Test Item Value Reference Range Interpretation Comments POCT GLU (test code = 2052595136) 192 mg/dL 70-110 H Lab Interpretation (test code = Abnormal 82959-4) [facility] CenterRAD, ABDOMEN/KUB, 1 VIEW [id number] 08:21:00 Reason for exam:->nauseaIs the patient ?->NoFINAL [...] MDReport Verified Date/Time: 10/14/2018 08:21:37 Reading Location: [facility] Radiology Reading Room CBC W/PLT COUNT & AUTO [id number] 08:18:00 Test Item Value Reference Range Interpretation [...] Received comment: User comments: Slide comments:BASIC METABOLIC [id number] 06:23:00 Test Item Value Reference Range Interpretation [...] S NOT APPLICABLE FOR DIALYSIS PATIEN TS. [id number] 09:49:00 Test Item Value Reference Range Interpretation Comments LIPASE (BEAKER) (test code = 749) 37 U/L 8-78 HEPATIC FUNCTION [id number] 09:49:00 Test Item Value Reference Range Interpretation [...] Differential performed on an albumin smear.BASIC METABOLIC [id number] 03:40:00 Test Item Value Reference Range Interpretation [...] PATIEN TS. CBC W/PLT COUNT & AUTO [id number] 03:00:00 Test Item Value Reference Range Interpretation [...] (test code = 412) PLATELET COUNT ([facility]) (test 360 K/CU MM 150-450 code = 756) MEAN PLATELET VOLUME (AKER) 9.1 fL 9.4-12.3 L (test code = 754) NUCLEATED RED BLOOD CELLS 0 /100 WBC 0-0 ([facility]) (test code = 413) POCT-GLUCOSE [id number] 21:19:00 Test Item Value Reference Range Interpretation Comments POC-GLUCOSE METER 216 mg/dL 70-110 H TESTED AT [place] [address] ([facility]) (test code = [place] [facility] 1538) [address] POCT-GLUCOSE [id number] 12:46:00 Test Item Value Reference Range Interpretation Comments POC-GLUCOSE METER 174 mg/dL 70-110 H TESTED AT [place] [address] ([facility]) (test code = [facility] [place] [facility] 1538) [address] RAD, ABDOMEN/KUB, 1 VIEW [id number] 10:26:00Reason for exam:->abd distension, eval for obstruction/ileusIs [...] are seen in the groins. Signed: Kimmie Baezaepfrandy Verified Date/Time: 10/12/2018 10:26:01 Reading Location: [address] Body Reading Room CBC W/PLT COUNT & AUTO [id number] 09:45:00 Test Item Value Reference Range Interpretation [...] 3438) Received comment: User comments: Slide comments:POCT-GLUCOSE [id number] 07:56:00 Test Item Value Reference Range Interpretation Comments POC-GLUCOSE METER 213 mg/dL 70-[address] [facility] 6720 (BEAKER) (test code = [place] 1538) [address] BASIC METABOLIC [id number] 07:38:00 Test Item Value Reference Range Interpretation [...] NOT APPLICABLE FOR DIALYSIS PATIEN TS. POCT-GLUCOSE [id number] 18:35:00 Test Item Value Reference Range Interpretation Comments POC-GLUCOSE METER 196 mg/dL 70-[address] [facility] 67 ([facility]) (test code = [facility] 1538) [address] POCT-GLUCOSE [id number] 12:01:00 Test Item Value Reference Range Interpretation Comments POC-GLUCOSE METER 184 mg/dL 70-[address] [facility] 67 ([facility]) (test code = [facility] 1538) [address] POCT-GLUCOSE [id number] 08:12:00 Test Item Value Reference Range Interpretation Comments POC-GLUCOSE METER 215 mg/dL 70-110 H TESTED AT [place] [address] ([facility]) (test code = [facility] 1538) [address] BASIC METABOLIC [id number] 06:51:00 Test Item Value Reference Range Interpretation [...] PATIEN TS. CBC W/PLT COUNT & AUTO [id number] 06:15:00 Test Item Value Reference Range Interpretation [...] EOSINOPHILS ABSOLUTE COUNT 0.05 K/ L 0.04-0.36 (AKER) (test code = 416) BASOPHILS ABSOLUTE COUNT ([facility]) 0.04 K/ L 0.01-0.08 (test code = 417) IMMATURE GRANULOCYTES-RELATIVE 1 % 0-1 PERCENT ([facility]) (test code = 2801) POCT-GLUCOSE [id number] 22:53:00 Test Item Value Reference Range Interpretation Comments POC-GLUCOSE METER 207 mg/dL 70-[address] [facility] 67 ([facility]) (test code = [facility] 1538) [address] RAD, CHEST, 1 VIEW, NON [id number] 22:32:00Reason for exam:->coughShould this be performed at [...] MDReport Verified Date/Time: 10/10/2018 22:32:10 Reading Location: [facility] Room POCT-GLUCOSE [id number] 22:05:00 Test Item Value Reference Range Interpretation Comments POC-GLUCOSE METER 202 mg/dL 70-[address] [facility] 67 ([facility]) (test code = [facility] 1538) [address] RESPIRATORY PANEL [id number] 13:26:00 Test Item Value Reference Range Interpretation Comments HUMAN METAPNEUMOVIRUS Not detected Not detected, ([facility]) (test code = 2683) Equivocal RHINOVIRUS (BEAKER) (test Not detected Not detected, code = 2684) Equivocal INFLUENZA A ([facility]) (test Not detected Not detected, code = 2685) [employer] INFLUENZA A (NO SUBTYPE) Not detected, (test code = 3606) Equivocal INFLUENZA A SUBTYPE H1 Not detected, ([facility]) (test code = 2686) Equivocal INFLUENZA [...] decisions. This sample was tested at the [facility] using the [employer] Respiratory Panel. It is FDA cleared and has been verified and approved by the [facility] for clinical use on nasal swab specimens. It is not FDA-cleared for use on bronchial wash/lavage samples. However, for this sample type, validation was performed and test characteristics were determined and approved, by [facility] for clinical use under the Clinical Laboratory Improvement Amendments (CLIA) of 1988 requirements. Therefore, FDA clearance isnot required. This laboratory is CLIA- certified and [employer] (CAP)-accredited to perform high complexity testing.POCT-GLUCOSE [id number] 11:47:00 Test Item Value Reference Range Interpretation Comments POC-GLUCOSE METER 163 mg/dL 70-[address] [facility] 6720 (BEAKER) (test code = [facility] [place] [facility] 1538) [address] POCT-GLUCOSE [id number] 08:34:00 Test Item Value Reference Range Interpretation Comments POC-GLUCOSE METER 141 mg/dL 70-[address] [facility] 6720 (BEAKER) (test code = [facility] 1538) [address] BASIC METABOLIC [id number] 06:51:00 Test Item Value Reference Range Interpretation [...] PATIEN TS. CBC W/PLT COUNT & AUTO [id number] 06:35:00 Test Item Value Reference Range Interpretation [...] PERCENT (BEAKER) (test code = 2801) POCT-GLUCOSE [id number] 21:25:00 Test Item Value Reference Range Interpretation Comments POC-GLUCOSE METER 199 mg/dL 70-[address] [facility] 6720 (BEAKER) (test code = [place] 1538) [address] BLOOD [id number] 19:00:00 Test Item Value Reference Range Interpretation Comments CULTURE (BEAKER) (test No growth in 5 days code = 1095) BLOOD [id number] 19:00:00 Test Item Value Reference Range Interpretation Comments CULTURE (BEAKER) (test No growth in 5 days code = 1095) POCT-GLUCOSE [id number] 18:16:00 Test Item Value Reference Range Interpretation Comments POC-GLUCOSE METER 149 mg/dL 70-110 H TESTED AT [place] [address] (BEAKER) (test code = [facility] 1538) [address] OVA AND PARASITE [id number] 08:39:00 Test Item Value Reference Range Interpretation Comments CONCENTRATE SMEAR - No ova or parasites No ova or parasites O\\T\\P (BEAKER) (test seen seen code = 247) TRICHROME SMEAR - No ova or parasites No ova or parasites O\\T\\P (BEAKER) (test seen seen code = 248) POCT-GLUCOSE [id number] 07:38:00 Test Item Value Reference Range Interpretation Comments POC-GLUCOSE METER 169 mg/dL 70-110 H TESTED AT [place] [address] (BEAKER) (test code = [facility] 1538) [address] BASIC METABOLIC [id number] 05:07:00 Test Item Value Reference Range Interpretation [...] PATIEN TS. CBC W/PLT COUNT & AUTO [id number] 04:51:00 Test Item Value Reference Range Interpretation [...] PERCENT (BEAKER) (test code = 2801) POCT-GLUCOSE [id number] 20:27:00 Test Item Value Reference Range Interpretation Comments POC-GLUCOSE METER 200 mg/dL 70-[address] [facility] 6720 (BEAKER) (test code = [facility] 1538) [address] POCT-GLUCOSE [id number] 17:20:00 Test Item Value Reference Range Interpretation Comments POC-GLUCOSE METER 242 mg/dL 70-[address] [facility] 67 ([facility]) (test code = [facility] 1538) [address] POCT-GLUCOSE [id number] 13:03:00 Test Item Value Reference Range Interpretation Comments POC-GLUCOSE METER 146 mg/dL 70-110 H TESTED AT [place] [address] ([facility]) (test code = [facility] 1538) [address] POCT-GLUCOSE [id number] 08:06:00 Test Item Value Reference Range Interpretation Comments POC-GLUCOSE METER 150 mg/dL 70-[address] [facility] 6720 (BEAKER) (test code = [facility] 1538) [address] [id number] 04:31:00 Test Item Value Reference Range Interpretation Comments PHOSPHORUS (BEAKER) (test code = 3.4 mg/dL 2.3-4.7 604) [id number] 04:31:00 Test Item Value Reference Range Interpretation Comments MAGNESIUM (BEAKER) (test code = 2.1 mg/dL 1.6-2.6 627) BASIC METABOLIC [id number] 04:31:00 Test Item Value Reference Range Interpretation [...] PATIEN TS. CBC W/PLT COUNT & AUTO [id number] 04:15:00 Test Item Value Reference Range Interpretation [...] 0-1 PERCENT (BEAKER) (test code = 2801) [id number] 15:17:00 Test Item Value Reference Range Interpretation Comments MAGNESIUM (BEAKER) (test code = 2.3 mg/dL 1.6-2.6 627) [id number] 15:17:00 Test Item Value Reference Range Interpretation Comments PHOSPHORUS (BEAKER) (test code = 2.5 mg/dL 2.3-4.7 604) [id number] 15:17:00 Test Item Value Reference Range Interpretation Comments POTASSIUM (BEAKER) (test code = 4.5 meq/L 3.5-5.1 379) HEMOGLOBIN AND [id number] 14:53:00 Test Item Value Reference Range Interpretation Comments HEMOGLOBIN (BEAKER) (test code = 14.4 GM/DL 11.2-15.7 410) HEMATOCRIT (BEAKER) (test code = 44.9 % 34.1-44.9 411) [id number] 09:39:00 Test Item Value Reference Range Interpretation Comments POTASSIUM (BEAKER) (test code = 3.7 meq/L 3.5-5.1 379) [id number] 09:39:00 Test Item Value Reference Range Interpretation Comments MAGNESIUM (BEAKER) (test code = 2.4 mg/dL 1.6-2.6 627) RAD, CHEST, 1 VIEW, NON [id number] 08:09:00Reason for exam:->pulm edemaShould this be performed [...] MDReport Verified Date/Time: 10/07/2018 08:09:09 Reading Location: [facility] Radiology Reading Room POCT-GLUCOSE [id number] 06:00:00 Test Item Value Reference Range Interpretation Comments POC-GLUCOSE METER 111 mg/dL 70-[address] [facility] 6720 (BEAKER) (test code = [place] 1538) [address] [id number] 05:22:00 Test Item Value Reference Range Interpretation Comments PHOSPHORUS (BEAKER) (test code = 2.9 mg/dL 2.3-4.7 604) [id number] 05:22:00 Test Item Value Reference Range Interpretation Comments MAGNESIUM (BEAKER) (test code = 2.4 mg/dL 1.6-2.6 627) BASIC METABOLIC [id number] 05:22:00 Test Item Value Reference Range Interpretation [...] PATIEN TS. CBC W/PLT COUNT & AUTO [id number] 05:03:00 Test Item Value Reference Range Interpretation [...] 0-1 PERCENT (BEAKER) (test code = 2801) [id number] 00:55:00 Test Item Value Reference Range Interpretation Comments POTASSIUM (BEAKER) (test code = 3.6 meq/L 3.5-5.1 379) [id number] 00:55:00 Test Item Value Reference Range Interpretation Comments MAGNESIUM (BEAKER) (test code = 2.0 mg/dL 1.6-2.6 627) POCT-GLUCOSE [id number] 00:32:00 Test Item Value Reference Range Interpretation Comments POC-GLUCOSE METER 125 mg/dL 70-110 H TESTED AT [place] [address] (BEAKER) (test code = R[place] [facility] 1538) [address] POCT-GLUCOSE [id number] 20:19:00 Test Item Value Reference Range Interpretation Comments POC-GLUCOSE METER 209 mg/dL 70-110 H TESTED AT [place] [address] (BEAKER) (test code = [place] [facility] 1538) [address] [id number] 16:56:00 Test Item Value Reference Range Interpretation Comments PHOSPHORUS (BEAKER) (test code = 1.2 mg/dL 2.3-4.7 LL 604) [id number] 16:52:00 Test Item Value Reference Range Interpretation Comments POTASSIUM (BEAKER) (test code = 3.6 meq/L 3.5-5.1 379) [id number] 16:52:00 Test Item Value Reference Range Interpretation Comments MAGNESIUM (BEAKER) (test code = 2.3 mg/dL 1.6-2.6 627) HEMOGLOBIN AND [id number] 16:35:00 Test Item Value Reference Range Interpretation Comments HEMOGLOBIN (BEAKER) (test code = 12.6 GM/DL 11.2-15.7 410) HEMATOCRIT (BEAKER) (test code = 37.7 % 34.1-44.9 411) C. DIFFICILE GDH [id number] 16:20:00 Test Item Value Reference Range Interpretation Comments CDT TOXIN (test code Negative Negative = [id number]) CDT GDH ANTIGEN Positive Negative A C. difficile present but (test code = toxin not detec nava. [id number]) Indicates colon ization with non-toxige vijay strain or level of tox in below detectable leve ls. No need for enteri c isolation. Thai atment is rarely needed ( only when strong clinical suspicion for Clostridium difficile infection) Testing performed by [employer] Rapid Cassette Assay. For GDH, published sensitivity of the assay is 98.7% compared to cytotoxicity testing. For Toxin AB, published sensitivity is 87.8% and specificity 99.4% compared to cytotoxicity testing.Verification of kit performance was done by the [facility] Microbiology Lab prior to clinical use.[id number] 12:30:00 Test Item Value Reference Range Interpretation Comments POTASSIUM (MARIA ELENA) (test code = 3.4 meq/L 3.5-5.1 L 379) Check Serum Potassium level 2 hours after oral potassium replacement completed or 30 min after intravenous potassium replacement.POCT-GLUCOSE [id number] 12:11:00 Test Item Value Reference Range Interpretation Comments POC-GLUCOSE METER 183 mg/dL 70-[address] [facility] 67 ([facility] (test code = [place] 1538) [address] RAD, CHEST, 1 VIEW, NON [id number] 08:17:00Reason for exam:->pulm edemaShould this be performed at the bedside?->YesFINAL REPORT Chest, one view History: Pulmonary edema Comparison: 10/05/2018 Fi ndings:Clear lungs. Normal size heart. No pleural effusion or pneumothorax. Impression:No acute findings in the chest Signed: Mehul Crowder MDRepfrandy Verified Date/Time: 10/06/2018 08:17:06 Reading Location: [facility] [id number] [facility] Consult Reading Room POCT-GLUCOSE [id number] 05:51:00 Test Item Value Reference Range Interpretation Comments POC-GLUCOSE METER 129 mg/dL 70-[address] [facility] 6720 (BEAKER) (test code = [place] 1538) [address] [id number] 05:17:00 Test Item Value Reference Range Interpretation Comments PHOSPHORUS (BEAKER) (test code = 1.3 mg/dL 2.3-4.7 LL 604) BASIC METABOLIC [id number] 05:14:00 Test Item Value Reference Range Interpretation [...] S NOT APPLICABLE FOR DIALYSIS PATIEN TS. [id number] 05:06:00 Test Item Value Reference Range Interpretation Comments MAGNESIUM (BEAKER) (test code = 2.2 mg/dL 1.6-2.6 627) CBC W/PLT COUNT & AUTO [id number] 04:37:00 Test Item Value Reference Range Interpretation [...] PERCENT (BEAKER) (test code = 2801) POCT-GLUCOSE [id number] 00:13:00 Test Item Value Reference Range Interpretation Comments POC-GLUCOSE METER 143 mg/dL 70-[address] [facility] 6720 ([facility]) (test code = [place] 1538) [address] TROPONIN [id number] 20:52:00 Test Item Value Reference Range Interpretation [...] 0.5-2.2 (test code = 2872) HEMOGLOBIN AND [id number] 20:08:00 Test Item Value Reference Range Interpretation Comments HEMOGLOBIN (BEAKER) (test code = 12.3 GM/DL 11.2-15.7 410) HEMATOCRIT (BEAKER) (test code = 37.4 % 34.1-44.9 411) HEMOGLOBIN AND [id number] 13:24:00 Test Item Value Reference Range Interpretation Comments HEMOGLOBIN (BEAKER) (test code = 11.8 GM/DL 11.2-15.7 410) HEMATOCRIT (BEAKER) (test code = 35.8 % 34.1-44.9 411) [id number] 12:51:00 Test Item Value Reference Range Interpretation Comments FERRITIN (BEAKER) (test code = 361) 155 ng/mL 5-275 POCT-GLUCOSE [id number] 12:20:00 Test Item Value Reference Range Interpretation Comments POC-GLUCOSE METER 154 mg/dL 70-[address] [facility] 6720 (BEAKER) (test code = [facility] 1538) [address] IRON, TIBC, % SAT. (WITHOUT FERRITIN)2018-10-05 10:36:00 Test Item Value Reference Range Interpretation Comments IRON (BEAKER) (test code = 547) 41.0 ug/dL 40.0-160.0 TOTAL IRON BINDING CAPACITY 185 ug/dL 250-450 L (BEAKER) (test code = 769) IRON % SATURATION (2) (BEAKER) 22 % 20-55 (test code = 2590) HEMOGLOBIN [id number] 10:31:00 Test Item Value Reference Range Interpretation Comments HEMOGLOBIN A1C (BEAKER) (test code = 4.7 % 4.3-6.1 368) VITAMIN [id number] 09:05:00 Test Item Value Reference Range Interpretation Comments VITAMIN B12 (MARIA ELENA) (test code = 885 pg/mL 213-816 H 774) POCT-GLUCOSE [id number] 07:16:00 Test Item Value Reference Range Interpretation Comments POC-GLUCOSE METER 152 mg/dL 70-[address] [facility] 6720 (MARIA ELENA) (test code = [place] 1538) [address] RAD, CHEST, 1 VIEW, NON [id number] 06:56:00Reason for exam:->pulm edemaShould this be performed at the bedside?->YesFINAL REPORT RAD, CHEST, 1 VIEW, NON DEPT INDICATION: pulm edema COMPARISON: Prior day's exam FINDINGS: Portable frontal view of the chest. IMPRESSION: Lungs and pleura: Unchanged airspace and pleural opacities. No pneumothorax.Heart and mediastinum: Stable contours. Additional findings: None. Signed: Lisa Mcgovern Verified Date/Time: 10/05/2018 06:56:36 Reading Location: [address] Transitional Reading Room TROPONIN [id number] 06:09:00 Test Item Value Reference Range Interpretation [...] acute neurological disease, and persistent tachyarrhythmia.BASIC METABOLIC [id number] 05:51:00 Test Item Value Reference Range Interpretation [...] S NOT APPLICABLE FOR DIALYSIS PATIEN TS. [id number] 05:20:00 Test Item Value Reference Range Interpretation Comments PHOSPHORUS (BEAKER) (test code = 2.2 mg/dL 2.3-4.7 L 604) [id number] 05:20:00 Test Item Value Reference Range Interpretation Comments MAGNESIUM (BEAKER) (test code = 1.8 mg/dL 1.6-2.6 627) HEMOGLOBIN AND [id number] 05:01:00 Test Item Value Reference Range Interpretation Comments HEMOGLOBIN (BEAKER) (test code = 11.4 GM/DL 11.2-15.7 410) HEMATOCRIT (BEAKER) (test code = 34.4 % 34.1-44.9 411) CBC W/PLT COUNT & AUTO [id number] 04:58:00 Test Item Value Reference Range Interpretation [...] PERCENT (BEAKER) (test code = 2801) TROPONIN [id number] 01:17:00 Test Item Value Reference Range Interpretation Comments TROPONIN I (BEAKER) (test code = 1.40 ng/mL 0.00-0.03 [facility]) Troponin I (TnI) levels must be [...] acute neurological disease, and persistent tachyarrhythmia.HEMOGLOBIN AND [id number] 00:52:00 Test Item Value Reference Range Interpretation Comments HEMOGLOBIN (BEAKER) (test code = 12.1 GM/DL 11.2-15.7 410) HEMATOCRIT (BEAKER) (test code = 36.4 % 34.1-44.9 411) POCT-GLUCOSE [id number] 00:34:00 Test Item Value Reference Range Interpretation Comments POC-GLUCOSE METER 164 mg/dL 70-[address] [facility] 6720 (BEAKER) (test code = [place] 1538) [address] TROPONIN [id number] 22:08:00 Test Item Value Reference Range Interpretation [...] failure, acidosis, acute neurological disease, and persistent tachyarrhythmia.[id number] 21:56:00 Test Item Value Reference Range Interpretation Comments PHOSPHORUS (BEAKER) (test code = 2.1 mg/dL 2.3-4.7 L 604) [id number] 21:56:00 Test Item Value Reference Range Interpretation Comments MAGNESIUM (BEAKER) (test code = 2.1 mg/dL 1.6-2.6 627) BASIC METABOLIC [id number] 21:56:00 Test Item Value Reference Range Interpretation [...] S NOT APPLICABLE FOR DIALYSIS PATIEN TS. [id number] 21:56:00 Test Item Value Reference Range Interpretation Comments PHOSPHORUS (BEAKER) (test code = 2.1 mg/dL 2.3-4.7 L 604) [id number] 21:56:00 Test Item Value Reference Range Interpretation Comments MAGNESIUM (BEAKER) (test code = 2.1 mg/dL 1.6-2.6 627) BASIC METABOLIC [id number] 21:56:00 Test Item Value Reference Range Interpretation [...] APPLICABLE FOR DIALYSIS PATIEN TS. BLOOD GAS, [id number] 21:46:00 Test Item Value Reference Range Interpretation [...] (test code = 1819) 100.0 % CALCIUM, [id number] 21:46:00 Test Item Value Reference Range Interpretation Comments CALCIUM IONIZED (BEAKER) (test 1.10 mmol/L 1.12-1.27 L code = 698) PH, BLOOD (BEAKER) (test code = 7.39 1810) URINALYSIS W/ REFLEX URINE [id number] 20:34:00 Test Item Value Reference Range Interpretation [...] (test code = 2795) TSH/FREE T4 IF [id number] 19:24:00 Test Item Value Reference Range Interpretation Comments THYROID STIMULATING HORMONE 0.79 uIU/mL 0.35-4.94 (BEAKER) (test code = 772) BASIC METABOLIC [id number] 18:15:00 Test Item Value Reference Range Interpretation [...] DIALYSIS PATIEN TS. LACTIC ACID, VENOUS, WHOLE [id number] 18:13:00 Test Item Value Reference Range Interpretation Comments LACTATE BLOOD VENOUS (2) (BEAKER) 1.0 mmol/L 0.5-2.2 (test code = 2872) [id number] 18:08:00 Test Item Value Reference Range Interpretation Comments AMMONIA (BEAKER) (test code = 348) 33 mol/L 18-72 HEMOGLOBIN AND [id number] 18:02:00 Test Item Value Reference Range Interpretation Comments HEMOGLOBIN (BEAKER) (test code = 12.2 GM/DL 11.2-15.7 410) HEMATOCRIT (BEAKER) (test code = 37.2 % 34.1-44.9 411) TROPONIN [id number] 17:28:00 Test Item Value Reference Range Interpretation [...] mmol/L 0.5-2.2 (test code = 2872) POCT-GLUCOSE [id number] 16:55:00 Test Item Value Reference Range Interpretation Comments POC-GLUCOSE METER 186 mg/dL 70-[address] [facility] 6720 (BEAKER) (test code = [place] 1538) [address] KETONE, [id number] 15:19:00 Test Item Value Reference Range Interpretation Comments KETONES, BLOOD (BEAKER) (test code 1.0 mmol/L <0.4 H = 1103) [id number] 15:19:00 Test Item Value Reference Range Interpretation Comments PHOSPHORUS (BEAKER) (test code = 604) < mg/dL 2.3-4.7 LL RAD, CHEST, 1 VIEW, NON [id number] 15:17:00Post-intubationReason for exam:- >SHOTNESS OF BREATH, R/O [...] HarrisMDReport Verified Date/Time: 10/04/2018 15:17:58 Reading Location: [address] Radiology Reading Room OSMOLALITY, [id number] 15:16:00 Test Item Value Reference Range Interpretation Comments OSMOLALITY, SERUM (BEAKER) (test 291 mOsm/kg 275-295 code = 615) LIPID [id number] 15:15:00 Test Item Value Reference Range Interpretation [...] 100-129 Borderline 130-159 High 160-189 Very High [id number] 15:15:00 Test Item Value Reference Range Interpretation Comments LIPASE (BEAKER) (test code = 749) 338 U/L 8-78 H [id number] 15:13:00 Test Item Value Reference Range Interpretation Comments MAGNESIUM (BEAKER) (test code = 1.3 mg/dL 1.6-2.6 L 627) LACTIC ACID, VENOUS, WHOLE [id number] 15:10:00 Test Item Value Reference Range Interpretation Comments LACTATE BLOOD VENOUS (2) (BEAKER) 1.2 mmol/L 0.5-2.2 (test code = 2872) CBC W/PLT COUNT & AUTO [id number] 15:06:00 Test Item Value Reference Range Interpretation [...] (BEAKER) (test code = 2801) OXYGEN SATURATION, [id number] 14:59:00 Test Item Value Reference Range Interpretation Comments O2 SATURATION (MEASURED) (BEAKER) 69.6 % (test code = 1455) FEMORAL LINEBLOOD GAS, [id number] 14:51:00 Test Item Value Reference Range Interpretation [...] (test code = 1819) 30.0 % TROPONIN [id number] 13:55:00 Test Item Value Reference Range Interpretation [...] (BEAKER) (test code = 700) COMPREHENSIVE METABOLIC [id number] 13:45:00 Test Item Value Reference Range Interpretation [...] DIALYSIS PATIEN TS. LACTIC ACID, VENOUS, WHOLE [id number] 13:41:00 Test Item Value Reference Range Interpretation Comments LACTATE BLOOD VENOUS (2) (BEAKER) 1.3 mmol/L 0.5-2.2 (test code = 2872) [id number] 13:39:00 Test Item Value Reference Range Interpretation Comments PARTIAL THROMBOPLASTIN TIME 30.3 seconds 22.5-36.0 (BEAKER) (test code = 760) [id number] 13:39:00 Test Item Value Reference Range Interpretation Comments FIBRINOGEN LEVEL (BEAKER) (test 284 mg/dl 225-434 code = 658) PROTHROMBIN [id number] 13:38:00 Test Item Value Reference Range Interpretation Comments PROTIME (BEAKER) (test code = 13.4 seconds 11.7-14.7 759) INR (BEAKER) (test code = 370) 1.0 <=5.9 RECOMMENDED COUMADIN/WARFARIN INR THERAPY RANGESSTANDARD DOSE: 2.0 - 3.0 Includes: PROPHYLAXIS forvenous thrombosis, systemic embolization; TREATMENT for venous thrombosis and/or pulmonary embolus.HIGH RISK: Target INR is 2.5-3.5 for patients with mechanical heart valves.POCT-GLUCOSE [id number] 18:40:00 Test Item Value Reference Range Interpretation Comments POC-GLUCOSE METER 148 mg/dL 70-[address] [facility] 6720 (BEAKER) (test code = [place] 1538) [address] POCT-GLUCOSE [id number] 07:43:00 Test Item Value Reference Range Interpretation Comments POC-GLUCOSE METER 112 mg/dL 70-[address] [facility] 6720 (BEAKER) (test code = [place] 1538) [address] [id number] 07:13:00 Test Item Value Reference Range Interpretation Comments MAGNESIUM (BEAKER) (test code = 1.4 mg/dL 1.6-2.6 L 627) BASIC METABOLIC [id number] 07:13:00 Test Item Value Reference Range Interpretation [...] NOT APPLICABLE FOR DIALYSIS PATIEN TS. POCT-GLUCOSE [id number] 22:09:00 Test Item Value Reference Range Interpretation Comments POC-GLUCOSE METER 161 mg/dL 70-[address] [facility] 6720 (BEAKER) (test code = [place] 1538) [address] POCT-GLUCOSE [id number] 17:46:00 Test Item Value Reference Range Interpretation Comments POC-GLUCOSE METER 148 mg/dL 70-[address] [facility] 6720 (BEAKER) (test code = DANIELAR G[place] 1538) [address] POCT-GLUCOSE [id number] 12:00:00 Test Item Value Reference Range Interpretation Comments POC-GLUCOSE METER 137 mg/dL 70-[address] [facility] 6720 (BEAKER) (test code = [place] 1538) [address] POCT-GLUCOSE [id number] 07:55:00 Test Item Value Reference Range Interpretation Comments POC-GLUCOSE METER 141 mg/dL 70-[address] [facility] 6720 (BEAKER) (test code = [place] 1538) [address] [id number] 05:30:00 Test Item Value Reference Range Interpretation Comments MAGNESIUM (BEAKER) (test code = 1.4 mg/dL 1.6-2.6 L 627) BASIC METABOLIC [id number] 05:30:00 Test Item Value Reference Range Interpretation [...] APPLICABLE FOR DIALYSIS PATIEN TS. HEMOGLOBIN AND [id number] 05:07:00 Test Item Value Reference Range Interpretation Comments HEMOGLOBIN (BEAKER) (test code = 8.8 GM/DL 11.2-15.7 L 410) HEMATOCRIT (BEAKER) (test code = 28.4 % 34.1-44.9 L 411) BLOOD [id number] 00:00:00 Test Item Value Reference Range Interpretation Comments CULTURE (BEAKER) (test No growth in 5 days code = 1095) BLOOD [id number] 00:00:00 Test Item Value Reference Range Interpretation Comments CULTURE (BEAKER) (test No growth in 5 days code = 1095) POCT-GLUCOSE [id number] 22:59:00 Test Item Value Reference Range Interpretation Comments POC-GLUCOSE METER 141 mg/dL 70-[address] [facility] 67 (BEAKER) (test code = ROD[place] 1538) [address] HEMOGLOBIN AND [id number] 16:50:00 Test Item Value Reference Range Interpretation Comments HEMOGLOBIN (BEAKER) (test code = 9.6 GM/DL 11.2-15.7 L 410) HEMATOCRIT (BEAKER) (test code = 30.8 % 34.1-44.9 L 411) POCT-GLUCOSE [id number] 13:15:00 Test Item Value Reference Range Interpretation Comments POC-GLUCOSE METER 144 mg/dL 70-110 H TESTED AT [place] [address] ([facility]) (test code = RODOL[place] 1538) [address] POCT-GLUCOSE [id number] 08:27:00 Test Item Value Reference Range Interpretation Comments POC-GLUCOSE METER 125 mg/dL 70-110 H [facility] AT [place] [address] [facility] (test code = [facility] [place] 1538) [address] [id number] 07:54:00 Test Item Value Reference Range Interpretation Comments MAGNESIUM (BEAKER) (test code = 1.0 mg/dL 1.6-2.6 LL 627) BASIC METABOLIC [id number] 07:25:00 Test Item Value Reference Range Interpretation [...] APPLICABLE FOR DIALYSIS PATIEN TS. HEMOGLOBIN AND [id number] 07:15:00 Test Item Value Reference Range Interpretation Comments HEMOGLOBIN (BEAKER) (test code = 8.5 GM/DL 11.2-15.7 L 410) HEMATOCRIT (BEAKER) (test code = 27.0 % 34.1-44.9 L 411) CBC W/PLT COUNT & AUTO [id number] 07:15:00 Test Item Value Reference Range Interpretation [...] PERCENT (AKER) (test code = 2801) POCT-GLUCOSE [id number] 00:54:00 Test Item Value Reference Range Interpretation Comments POC-GLUCOSE METER 165 mg/dL 70-110 H TESTED AT [place] [address] ([facility]) (test code = [facility] 1538) [address] POCT-GLUCOSE [id number] 18:13:00 Test Item Value Reference Range Interpretation Comments POC-GLUCOSE METER 255 mg/dL 70-110 H TESTED AT [place] [address] ([facility]) (test code = [facility] 1538) [address] HEMOGLOBIN AND [id number] 17:10:00 Test Item Value Reference Range Interpretation Comments HEMOGLOBIN (BEAKER) (test code = 9.0 GM/DL 11.2-15.7 L 410) HEMATOCRIT (BEAKER) (test code = 28.1 % 34.1-44.9 L 411) POCT-GLUCOSE [id number] 11:29:00 Test Item Value Reference Range Interpretation Comments POC-GLUCOSE METER 204 mg/dL 70-110 H TESTED AT [place] [address] ([facility]) (test code = [facility] 1538) [address] CBC W/PLT COUNT & AUTO [id number] 10:04:00 Test Item Value Reference Range Interpretation [...] PERCENT (BEAKER) (test code = 2801) POCT-GLUCOSE [id number] 08:20:00 Test Item Value Reference Range Interpretation Comments POC-GLUCOSE METER 128 mg/dL 70-[address] [facility] 6720 (BEAKER) (test code = [place] 1532) [address] [id number] 05:08:00 Test Item Value Reference Range Interpretation Comments MAGNESIUM (BEAKER) 1.3 mg/dL 1.6-2.6 L Specimen slightly (test code = 627) hemolyzed [id number] 05:08:00 Test Item Value Reference Range Interpretation Comments PHOSPHORUS (BEAKER) 2.6 mg/dL 2.3-4.7 Specimen slightly (test code = 604) hemolyzed BASIC METABOLIC [id number] 05:08:00 Test Item Value Reference Range Interpretation [...] APPLICABLE FOR DIALYSIS PATIEN TS. HEMOGLOBIN AND [id number] 04:46:00 Test Item Value Reference Range Interpretation Comments HEMOGLOBIN (BEAKER) (test code = 8.7 GM/DL 11.2-15.7 L 410) HEMATOCRIT (BEAKER) (test code = 27.8 % 34.1-44.9 L 411) POCT-GLUCOSE [id number] 00:51:00 Test Item Value Reference Range Interpretation Comments POC-GLUCOSE METER 142 mg/dL 70-[address] [facility] 6720 (BEAKER) (test code = [facility] [facility] 1538) [id number] HEMOGLOBIN AND [id number] 20:58:00 Test Item Value Reference Range Interpretation Comments HEMOGLOBIN (BEAKER) (test code = 9.6 GM/DL 11.2-15.7 L 410) HEMATOCRIT (BEAKER) (test code = 29.6 % 34.1-44.9 L 411) POCT-GLUCOSE [id number] 18:36:00 Test Item Value Reference Range Interpretation Comments POC-GLUCOSE METER 228 mg/dL 70-110 H TESTED AT [place] [address] (BEAKER) (test code = [facility] 1538) [id number] SPUTUM CULTURE + GRAM [id number] 15:57:00 Test Item Value Reference Range Interpretation Comments CULTURE (BEAKER) 2+ Normal respiratory (test code = 1095) cosme present GRAM STAIN RESULT 4+ WBCs (BEAKER) (test code = 1123) GRAM STAIN RESULT No epithelial cells (BEAKER) (test code = 34782) GRAM STAIN RESULT 1+ yeast (BEAKER) (test code = 05181) HEMOGLOBIN AND [id number] 12:05:00 Test Item Value Reference Range Interpretation Comments HEMOGLOBIN (BEAKER) (test code = 8.5 GM/DL 11.2-15.7 L 410) HEMATOCRIT (BEAKER) (test code = 25.9 % 34.1-44.9 L 411) POCT-GLUCOSE [id number] 11:40:00 Test Item Value Reference Range Interpretation Comments POC-GLUCOSE METER 180 mg/dL 70-110 H TESTED AT [place] [address] (BEAKER) (test code = [facility] 1538) [address] POCT-GLUCOSE [id number] 06:14:00 Test Item Value Reference Range Interpretation Comments POC-GLUCOSE METER 143 mg/dL 70-110 H TESTED AT [place] [address] (BEAKER) (test code = [facility] [facility] 1538) [address] BASIC METABOLIC [id number] 05:05:00 Test Item Value Reference Range Interpretation [...] 697) EGFR (BEAKER) (test 29 mL/min/1.73 ESTIMA NVAA GFR IS code = 1092) sq m NOT ACCURATE CREATININE CLEARANCE IN PREDICTING GLOMERULAR FILTRATION RATE . ESTIMATED GFR I S NOT APPLICABLE FOR DIALYSIS PATIEN TS. VANCOMYCIN LEVEL, [id number] 05:04:00 Test Item Value Reference Range Interpretation Comments VANCOMYCIN RANDOM (BEAKER) (test 23.1 ug/mL code = 523) Reference Range: No [id number] 05:02:00 Test Item Value Reference Range Interpretation Comments PHOSPHORUS (BEAKER) (test code = 3.9 mg/dL 2.3-4.7 604) [id number] 05:02:00 Test Item Value Reference Range Interpretation Comments MAGNESIUM (BEAKER) (test code = 1.4 mg/dL 1.6-2.6 L 627) HEMOGLOBIN AND [id number] 04:36:00 Test Item Value Reference Range Interpretation Comments HEMOGLOBIN (BEAKER) (test code = 7.5 GM/DL 11.2-15.7 L 410) HEMATOCRIT (BEAKER) (test code = 22.8 % 34.1-44.9 L 411) POCT-GLUCOSE [id number] 00:02:00 Test Item Value Reference Range Interpretation Comments POC-GLUCOSE METER 180 mg/dL 70-[address] [facility] 6720 (BEAKER) (test code = [place] 1538) [address] HEMOGLOBIN AND [id number] 20:48:00 Test Item Value Reference Range Interpretation Comments HEMOGLOBIN (BEAKER) (test code = 8.3 GM/DL 11.2-15.7 L 410) HEMATOCRIT (BEAKER) (test code = 25.0 % 34.1-44.9 L 411) POCT-GLUCOSE [id number] 18:14:00 Test Item Value Reference Range Interpretation Comments POC-GLUCOSE METER 131 mg/dL 70-[address] [facility] 6720 ([facility]) (test code = [place] 1538) [address] VANCOMYCIN LEVEL, [id number] 16:48:00 Test Item Value Reference Range Interpretation Comments VANCOMYCIN RANDOM (BEAKER) (test 28.3 ug/mL code = 523) Reference Range: No NormalsPOCT-GLUCOSE [id number] 12:43:00 Test Item Value Reference Range Interpretation Comments POC-GLUCOSE METER 157 mg/dL 70-[address] [facility] 6720 ([facility]) (test code = [place] 1538) [address] HEMOGLOBIN AND [id number] 12:20:00 Test Item Value Reference Range Interpretation Comments HEMOGLOBIN (BEAKER) (test code = 8.3 GM/DL 11.2-15.7 L 410) HEMATOCRIT (BEAKER) (test code = 25.4 % 34.1-44.9 L 411) BASIC METABOLIC [id number] 05:37:00 Test Item Value Reference Range Interpretation [...] PATIEN TS. CBC W/PLT COUNT & AUTO [id number] 04:41:00 Test Item Value Reference Range Interpretation [...] GRANULOCYTES-RELATIVE 2 % 0-1 H PERCENT ([facility]) (test code = 2801) POCT-GLUCOSE [id number] 00:06:00 Test Item Value Reference Range Interpretation Comments POC-GLUCOSE METER 174 mg/dL 70-[address] [facility] 6720 ([facility]) (test code = [place] 1538) [address] POCT-GLUCOSE [id number] 17:26:00 Test Item Value Reference Range Interpretation Comments POC-GLUCOSE METER 179 mg/dL 70-[address] [facility] 6720 ([facility]) (test code = RODOLFO [place] [facility] 1538) [address] CT, [id number] 17:19:00FINAL REPORT CLINICAL HISTORY: Recent pancreatitis, shock [...] Verified Date/Time: 05/05/2018 17:19:54 Reading Location: [address] Reading Room TROPONIN I 2018-05-05 16:31:00 [...] acidosis, acute neurological disease, and persistent tachyarrhythmia.POCT-GLUCOSE [id number] 12:29:00 Test Item Value Reference Range Interpretation Comments POC-GLUCOSE METER 139 mg/dL 70-[address] [facility] 6720 (BEAKER) (test code = [place] 1538) [address] URINALYSIS W/ REFLEX URINE [id number] 09:51:00 Test Item Value Reference Range Interpretation [...] = 1585) Moderate SOURCE(BEAKER) (test code = 2825) SODIUM, RANDOM [id number] 09:46:00 Test Item Value Reference Range Interpretation Comments SODIUM URINE (BEAKER) (test code = 23 meq/L 243) Reference Range: No NormalsCREATININE, RANDOM [id number] 09:32:00 Test Item Value Reference Range Interpretation Comments CREATININE URINE (BEAKER) (test 67.0 mg/dL code = 375) Reference Range: No NormalsUREA NITROGEN, RANDOM [id number] 09:32:00 Test Item Value Reference Range Interpretation Comments UREA NITROGEN URINE (BEAKER) (test 170 mg/dL code = 538) Reference Range: No NormalsLACTIC ACID, ARTERIAL, WHOLE [id number] 09:16:00 Test Item Value Reference Range Interpretation Comments LACTATE BLOOD ARTERIAL (2) 0.8 mmol/L 0.5-2.2 (BEAKER) (test code = 2874) Effective 12/15/2015: Units/Reference Range ChangeNew: 0.5-2.2 mmol/L Previous: 5-20 mg/dLHEMATOCRIT-STAT [id number] 09:02:00 Test Item Value Reference Range Interpretation Comments HEMATOCRIT (BEAKER) (test code = 411) 23.0 % 36.0-45.0 L BLOOD GAS, [id number] 09:02:00 Test Item Value Reference Range Interpretation [...] (test code = 1819) 30.0 % HEMOGLOBIN-STAT [id number] 09:01:00 Test Item Value Reference Range Interpretation Comments HEMOGLOBIN (BEAKER) (test code = 7.7 g/dL 12.0-15.0 L 410) TROPONIN [id number] 08:24:00 Test Item Value Reference Range Interpretation [...] acute neurological disease, and persistent tachyarrhythmia.BASIC METABOLIC [id number] 08:22:00 Test Item Value Reference Range Interpretation [...] APPLICABLE FOR DIALYSIS PATIEN TS. BLOOD GAS, [id number] 07:56:00 Test Item Value Reference Range Interpretation [...] code = 1819) 30.0 % VANCOMYCIN LEVEL, [id number] 05:44:00 Test Item Value Reference Range Interpretation Comments VANCOMYCIN RANDOM (BEAKER) (test 16.7 ug/mL code = 523) Reference Range: No NormalsLACTIC ACID, VENOUS, WHOLE [id number] 05:22:00 Test Item Value Reference Range Interpretation Comments LACTATE BLOOD VENOUS (2) (BEAKER) 0.7 mmol/L 0.5-2.2 (test code = 2872) Effective 12/15/2015: Units/Reference Range ChangeNew: 0.5-2.2 mmol/L Previous: 5-20 mg/dLBLOOD GAS, [id number] 05:03:00 Test Item Value Reference Range Interpretation [...] (test code = 1819) 30.0 % TROPONIN [id number] 05:00:00 Test Item Value Reference Range Interpretation [...] failure, acidosis, acute neurological disease, and persistent tachyarrhythmia.[id number] 04:54:00 Test Item Value Reference Range Interpretation Comments LIPASE (BEAKER) (test code = 749) 47 U/L 8-78 HEPATIC FUNCTION [id number] 04:54:00 Test Item Value Reference Range Interpretation [...] 6-55 347) RAD, CHEST, 1 VIEW, NON [id number] 04:49:00Reason for exam:- >IntubationShould this be performed [...] Verified Date/Time: 05/05/2018 04:49:25 Reading Location: [address] Reading Room [id number] 04:47:00 Test Item Value Reference Range Interpretation Comments PROCALCITONIN (BEAKER) (test code 2.43 ng/mL <0.05 H = 3036) SEPSIS RISK (ng/mL)Low: 0.05-0.50Intermediate: 0.51-2.00High: >=2.01RAD, ABDOMEN/KUB, 1 VIEW [id number] 04:47:00Reason for exam:->OG placement Should this be [...] Verified Date/Time: 05/05/2018 04:47:09 Reading Location: [address] Reading Room BLOOD GAS, [id number] 03:34:00 Test Item Value Reference Range Interpretation [...] 40.0 % CBC W/PLT COUNT & AUTO [id number] 03:25:00 Test Item Value Reference Range Interpretation [...] code = 2801) LACTIC ACID, VENOUS, WHOLE [id number] 02:41:00 Test Item Value Reference Range Interpretation Comments LACTATE BLOOD VENOUS (2) (BEAKER) 0.5 mmol/L 0.5-2.2 (test code = 2872) Effective 12/15/2015: Units/Reference Range ChangeNew: 0.5-2.2 mmol/L Previous: 5-20 mg/dLBLOOD GAS, [id number] 02:10:00 Test Item Value Reference Range Interpretation [...] code = 1819) 28.0 % BASIC METABOLIC [id number] 01:46:00 Test Item Value Reference Range Interpretation [...] pg/mL 0-100 H (test code = 700) [id number] 01:31:00 Test Item Value Reference Range Interpretation Comments MAGNESIUM (BEAKER) (test code = 1.8 mg/dL 1.6-2.6 627) LACTIC ACID, VENOUS, WHOLE [id number] 01:29:00 Test Item Value Reference Range Interpretation Comments LACTATE BLOOD VENOUS (2) (BEAKER) 0.7 mmol/L 0.5-2.2 (test code = 2872) Effective 12/15/2015: Units/Reference Range ChangeNew: 0.5-2.2 mmol/L Previous: 5-20 mg/dLCBC W/PLT COUNT & AUTO [id number] 01:14:00 Test Item Value Reference Range Interpretation [...] PERCENT (BEAKER) (test code = 2801) POCT-GLUCOSE [id number] 01:01:00 Test Item Value Reference Range Interpretation Comments POC-GLUCOSE METER 138 mg/dL 70-[address] [facility] 6720 (BEAKER) (test code = [place] [facility] 1538) [address] RAD, CHEST, 1 VIEW, NON [id number] 00:17:00Reason for exam:->concern for respiratory distressShould this [...] Verified Date/Time: 05/05/2018 00:17:28 Reading Location: [address] Reading Room POCT-LACTIC ACID, [id number] 23:56:00 Test Item Value Reference Range Interpretation Comments POC-LACTIC ACID, 0.9 mmol/L 0.4-1.3 TESTED AT [place] [id number] ARTERIAL (BEAKER) [facility] (test code = 2804) [address] POCT-BLOOD GASES, [id number] 23:56:00 Test Item Value Reference Range Interpretation Comments TEMP, CELSIUS-POC 36.1 (BEAKER) (test code = 1834) FIO2-POC (BEAKER) 32 TESTED AT [place] [address] (test code = 1835) RADHA [facility] [address] PH, ARTERIAL-POC 7.192 7.350-7.450 LL (BEAKER) (test [...] L ARTERIAL-POC (BEAKER) (test code = 1841) [id number] 23:56:00 Test Item Value Reference Range Interpretation Comments POC-SODIUM (BEAKER) 127 meq/L 135-148 L TESTED A T [place] [address] (test code = 1542) [facility] [place] [address] [id number] 23:56:00 Test Item Value Reference Range Interpretation Comments POC-POTASSIUM 4.8 meq/L 3.6-5.5 TESTED AT [place] [address] ([facility]) (test code [facility] [address] = 1540) [id number] 23:56:00 Test Item Value Reference Range Interpretation Comments POC-GLUCOSE ([facility]) 116 mg/dL 70-110 H TESTED AT [place] [address] (test code = 1855) [facility] [address] POCT-CALCIUM [id number] 23:56:00 Test Item Value Reference Range Interpretation Comments POC-CALCIUM IONIZED 1.20 mmol/L 1.12-1.27 TESTED A T [place] [address] ([facility]) (test code = [facility] G[place]elle [facility] 1536) [address] [id number] 23:56:00 Test Item Value Reference Range Interpretation Comments POC-HEMATOCRIT 25 % 36-45 L TESTED AT [place] [address] ([facility]) (test code = [facility] [address] 1857) [id number] 23:56:00 Test Item Value Reference Range Interpretation Comments POC-HEMOGLOBIN 8.5 g/dL 12.0-15.0 L TESTED AT [place] [address] ([facility]) (test code = [facility] [place] 1856) [address]CFAOBB AT [address] [address] POCT-GLUCOSE [id number] 21:48:00 Test Item Value Reference Range Interpretation Comments POC-GLUCOSE METER 136 mg/dL 70-110 H TESTED AT [place] [address] ([facility]) (test code = [facility] 1538) [address] POCT-GLUCOSE [id number] 19:03:00 Test Item Value Reference Range Interpretation Comments POC-GLUCOSE METER 131 mg/dL 70-110 H TESTED AT [place] [address] ([facility]) (test code = [facility] 1538) [address] POCT-BLOOD GASES, [id number] 16:54:00 Test Item Value Reference Range Interpretation Comments TEMP, CELSIUS-POC 37.0 ([facility]) (test code = 1834) FIO2-POC ([facility]) TESTED AT [place] [address] (test code = 1835) [facility] [place] [address] PH, VENOUS-POC 7.224 7.320-7.420 L (BEAKER) (test [...] -2.0-3.0 VENOUS-POC (BEAKER) (test code = 1847) [id number] 16:54:00 Test Item Value Reference Range Interpretation Comments POC-SODIUM (BEAKER) 129 meq/L 135-148 L TESTED A [place] [address] (test code = 1542) RADHA Black [facility] [address] [id number] 16:54:00 Test Item Value Reference Range Interpretation Comments POC-POTASSIUM 4.7 meq/L 3.6-5.5 TESTED AT [place] [address] ([facility]) (test code [facility] [address] = 1540) [id number] 16:54:00 Test Item Value Reference Range Interpretation Comments POC-GLUCOSE ([facility]) 116 mg/dL 70-110 H TESTED AT [place] [address] (test code = 1855) DANIELTAMIKA [place] [facility] [place] [address] POCT-CALCIUM [id number] 16:54:00 Test Item Value Reference Range Interpretation Comments POC-CALCIUM IONIZED 1.19 mmol/L 1.12-1.27 TESTED A [place] [address] ([facility]) (test code = [place]ANIELALCIDES [place] 1534) [address] [id number] 16:54:00 Test Item Value Reference Range Interpretation Comments POC-HEMATOCRIT 25 % 36-45 L TESTED AT [place] [address] ([facility]) (test code = [place] [address] 1851) [id number] 16:54:00 Test Item Value Reference Range Interpretation Comments POC-HEMOGLOBIN 8.5 g/dL 12.0-15.[address] [facility] 6720 (BEAKER) (test code = [place] 1856) [address]OUDYTT AT [place] [address] [place] [address] POCT-GLUCOSE [id number] 13:26:00 Test Item Value Reference Range Interpretation Comments POC-GLUCOSE METER 124 mg/dL 70-110 H TESTED AT [place] [address] (BEAKER) (test code = [place] 1538) [address] POCT-LACTIC ACID, [id number] 12:57:00 Test Item Value Reference Range Interpretation Comments POC-LACTIC ACID, 1.1 mmol/L 0.9-1.7 TESTED AT [place] [address] VENOUS (BEAKER) (test [place] code = 2805) [address] COMPREHENSIVE METABOLIC [id number] 09:56:00 Test Item Value Reference Range Interpretation [...] S NOT APPLICABLE FOR DIALYSIS PATIEN TS. [id number] 09:48:00 Test Item Value Reference Range Interpretation Comments PHOSPHORUS (BEAKER) (test code = 5.0 mg/dL 2.3-4.7 H 604) [id number] 09:48:00 Test Item Value Reference Range Interpretation Comments MAGNESIUM (BEAKER) (test code = 1.9 mg/dL 1.6-2.6 627) POCT-GLUCOSE [id number] 09:23:00 Test Item Value Reference Range Interpretation Comments POC-GLUCOSE METER 148 mg/dL 70-[address] [facility] 6720 (BEAKER) (test code = [place] 1538) [address] CBC (HEMOGRAM ONLY)2018-05-04 07:04:00 Test Item Value [...] RED BLOOD CELLS 0 /100 WBC 0-0 ([facility]) (test code = 413) PROTHROMBIN [id number] 06:20:00 Test Item Value Reference Range Interpretation Comments PROTIME ([facility]) (test code = 14.0 seconds 11.7-14.7 759) INR ([facility]) (test code = 370) 1.1 <=5.9 RECOMMENDED COUMADIN/WARFARIN INR THERAPY RANGESSTANDARD DOSE: 2.0 - 3.0 Includes: PROPHYLAXIS forvenous thrombosis, systemic embolization; TREATMENT for venous thrombosis and/or pulmonary embolus.HIGH RISK: Target INR is 2.5-3.5 for patients with mechanical heart valves.[id number] 06:20:00 Test Item Value Reference Range Interpretation Comments PARTIAL THROMBOPLASTIN TIME 38.0 seconds 22.5-36.0 H ([facility]) (test code = 760) POCT-GLUCOSE [id number] 21:01:00 Test Item Value Reference Range Interpretation Comments POC-GLUCOSE METER 113 mg/dL 70-110 H TESTED AT [place] [address] ([facility]) (test code = [facility] 1538) [address] POCT-GLUCOSE [id number] 17:33:00 Test Item Value Reference Range Interpretation Comments POC-GLUCOSE METER 123 mg/dL 70-110 H TESTED AT [place] [address] ([facility]) (test code = [facility] 1538) [address] POCT-GLUCOSE [id number] 12:19:00 Test Item Value Reference Range Interpretation Comments POC-GLUCOSE METER 127 mg/dL 70-110 H TESTED AT [place] [address] ([facility]) (test code = [facility] 1538) [address] POCT-GLUCOSE [id number] 08:08:00 Test Item Value Reference Range Interpretation Comments POC-GLUCOSE METER 129 mg/dL 70-110 H TESTED AT [place] [address] ([facility]) (test code = [facility] 1538) [address] BLOOD GAS, [id number] 07:23:00 Test Item Value Reference Range Interpretation Comments PH VENOUS ([facility]) (test code = 7.36 7.32-7.42 701) PCO2 VENOUS ([facility]) (test code = 45 mmHg 41-51 [...] code = 1819) 20.0 % COMPREHENSIVE METABOLIC [id number] 07:11:00 Test Item Value Reference Range Interpretation [...] S NOT APPLICABLE FOR DIALYSIS PATIEN TS. [id number] 07:09:00 Test Item Value Reference Range Interpretation Comments PHOSPHORUS (BEAKER) (test code = 3.6 mg/dL 2.3-4.7 604) [id number] 07:09:00 Test Item Value Reference Range Interpretation Comments MAGNESIUM (BEAKER) (test code = 1.8 mg/dL 1.6-2.6 627) [id number] 06:34:00 Test Item Value Reference Range Interpretation [...] 0-0 (BEAKER) (test code = 413) PROTHROMBIN [id number] 06:33:00 Test Item Value Reference Range Interpretation Comments PROTIME (BEAKER) (test code = 14.5 seconds 11.7-14.7 759) INR (BEAKER) (test code = 370) 1.1 <=5.9 RECOMMENDED COUMADIN/WARFARIN INR THERAPY RANGESSTANDARD DOSE: 2.0 - 3.0 Includes: PROPHYLAXIS forvenous thrombosis, systemic embolization; TREATMENT for venous thrombosis and/or pulmonary embolus.HIGH RISK: Target INR is 2.5-3.5 for patients with mechanical heart valves.LACTIC ACID, VENOUS, WHOLE [id number] 06:32:00 Test Item Value Reference Range Interpretation Comments LACTATE BLOOD VENOUS (2) (BEAKER) 1.0 mmol/L 0.5-2.2 (test code = 2872) Effective 12/15/2015: Units/Reference Range ChangeNew: 0.5-2.2 mmol/L Previous: 5-20 mg/dLPOCT-GLUCOSE [id number] 21:06:00 Test Item Value Reference Range Interpretation Comments POC-GLUCOSE METER 168 mg/dL 70-110 H TESTED AT [place] [address] ([facility]) (test code = [place] 1538) [address] POCT-GLUCOSE [id number] 19:02:00 Test Item Value Reference Range Interpretation Comments POC-GLUCOSE METER 122 mg/dL 70-110 H TESTED AT [place] [address] ([facility]) (test code = [place] 1538) [address] [id number] 18:09:00 Test Item Value Reference Range Interpretation Comments PHOSPHORUS (BEAKER) (test code = 2.7 mg/dL 2.3-4.7 604) [id number] 18:09:00 Test Item Value Reference Range Interpretation Comments MAGNESIUM (BEAKER) (test code = 1.9 mg/dL 1.6-2.6 627) [id number] 18:09:00 Test Item Value Reference Range Interpretation Comments CALCIUM (BEAKER) (test code = 697) 8.7 mg/dL 8.4-10.2 POCT-GLUCOSE [id number] 13:13:00 Test Item Value Reference Range Interpretation Comments POC-GLUCOSE METER 162 mg/dL 70-110 H TESTED AT [place] [address] ([facility]) (test code = [place] 1538) [address] RAD, CHEST, 1 VIEW, NON [id number] 12:12:00Reason for exam:->Pulmobnary edema?Should this be performed [...] Crowe Verified Date/Time: 05/02/2018 12:12:11 Reading Location: [facility] Radiology Reading Room POCT-GLUCOSE [id number] 08:27:00 Test Item Value Reference Range Interpretation Comments POC-GLUCOSE METER 128 mg/dL 70-[address] [facility] 6720 ([facility]) (test code = [place] [address]18) [address] COMPREHENSIVE METABOLIC [id number] 07:40:00 Test Item Value Reference Range Interpretation Comments TOTAL PROTEIN 5.4 gm/dL 6.0-8.3 L (BEAKER) (test code = 770) ALBUMIN (BEAKER) 2.7 g/dL 3.5-5.0 L (test code = 1145) ALKALINE PHOSPHATASE 147 U/L 40-150 (BEAKER) (test code = 346) BILIRUBIN TOTAL 1.3 mg/dL 0.2-1.2 H (AKER) (test code = 377) SODIUM (BEAKER) (test [...] S NOT APPLICABLE FOR DIALYSIS PATIEN TS. [id number] 07:34:00 Test Item Value Reference Range Interpretation Comments PHOSPHORUS (BEAKER) (test code = 2.7 mg/dL 2.3-4.7 604) [id number] 07:34:00 Test Item Value Reference Range Interpretation Comments MAGNESIUM (BEAKER) (test code = 1.9 mg/dL 1.6-2.6 627) LACTIC ACID, VENOUS, WHOLE [id number] 06:59:00 Test Item Value Reference Range Interpretation [...] WBC 0-0 (BEAKER) (test code = 413) [id number] 06:34:00 Test Item Value Reference Range Interpretation Comments PARTIAL THROMBOPLASTIN TIME 38.8 seconds 22.5-36.0 H (BEAKER) (test code = 760) PROTHROMBIN [id number] 06:33:00 Test Item Value Reference Range Interpretation Comments PROTIME (BEAKER) (test code = 14.8 seconds 11.7-14.7 H 759) INR (BEAKER) (test code = 370) 1.2 <=5.9 RECOMMENDED COUMADIN/WARFARIN INR THERAPY RANGESSTANDARD DOSE: 2.0 - 3.0 Includes: PROPHYLAXIS forvenous thrombosis, systemic embolization; TREATMENT for venous thrombosis and/or pulmonary embolus.HIGH RISK: Target INR is 2.5-3.5 for patients with mechanical heart valves.BLOOD GAS, [id number] 06:29:00 Test Item Value Reference Range Interpretation [...] (test code = 1819) 20 % BLOOD [id number] 06:00:00 Test Item Value Reference Range Interpretation Comments CULTURE (BEAKER) (test No growth in 5 days code = 1095) BLOOD [id number] 06:00:00 Test Item Value Reference Range Interpretation Comments CULTURE (BEAKER) (test No growth in 5 days code = 1095) POCT-GLUCOSE [id number] 20:46:00 Test Item Value Reference Range Interpretation Comments POC-GLUCOSE METER 157 mg/dL 70-110 H TESTED AT [place] [address] ([facility]) (test code = [facility] 1538) [address] HEMOGLOBIN AND [id number] 14:24:00 Test Item Value Reference Range Interpretation Comments HEMOGLOBIN (AKER) (test code = 7.9 GM/DL 11.2-15.7 L 410) HEMATOCRIT ([facility]) (test code = 23.3 % 34.1-44.9 L 411) POCT-GLUCOSE [id number] 13:32:00 Test Item Value Reference Range Interpretation Comments POC-GLUCOSE METER 116 mg/dL 70-110 H TESTED AT [place] [address] ([facility]) (test code = [facility] 1538) [address] [id number] 12:04:00 Test Item Value Reference Range Interpretation Comments PROCALCITONIN ([facility]) (test code 2.57 ng/mL <0.05 H = 3036) SEPSIS RISK (ng/mL)Low: 0.05-0.50Intermediate: 0.51-2.00High: >=[id number] 11:04:00 Test Item Value Reference Range Interpretation Comments LIPASE (BEAKER) (test code = 749) 36 U/L 8-78 POCT-GLUCOSE [id number] 07:09:00 Test Item Value Reference Range Interpretation Comments POC-GLUCOSE METER 91 mg/dL 70-110 TESTED AT [place] [address] ([facility]) (test code = [facility] [address] 1538) CALCIUM, [id number] 06:30:00 Test Item Value Reference Range Interpretation Comments CALCIUM IONIZED ([facility]) (test 1.10 mmol/L 1.12-1.27 L code = 698) PH, BLOOD ([facility]) (test code = 7.40 1810) BLOOD GAS, [id number] 05:31:00 Test Item Value Reference Range Interpretation [...] code = 1819) 20.0 % COMPREHENSIVE METABOLIC [id number] 05:10:00 Test Item Value Reference Range Interpretation [...] S NOT APPLICABLE FOR DIALYSIS PATIEN TS. [id number] 05:05:00 Test Item Value Reference Range Interpretation Comments PHOSPHORUS (BEAKER) (test code = 2.2 mg/dL 2.3-4.7 L 604) [id number] 05:05:00 Test Item Value Reference Range Interpretation Comments MAGNESIUM (BEAKER) (test code = 1.9 mg/dL 1.6-2.6 627) LACTIC ACID, VENOUS, WHOLE [id number] 04:44:00 Test Item Value Reference Range Interpretation Comments LACTATE BLOOD VENOUS (2) (BEAKER) 0.7 mmol/L 0.5-2.2 (test code = 2872) Effective 12/15/2015: Units/Reference Range ChangeNew: 0.5-2.2 mmol/L Previous: 5-20 mg/[id number] 04:42:00 Test Item Value Reference Range Interpretation Comments PARTIAL THROMBOPLASTIN TIME 41.1 seconds 22.5-36.0 H (BEAKER) (test code = 760) PROTHROMBIN [id number] 04:41:00 Test Item Value Reference Range Interpretation [...] H (BEAKER) (test code = 413) POCT-GLUCOSE [id number] 22:06:00 Test Item Value Reference Range Interpretation Comments POC-GLUCOSE METER 109 mg/dL 70-[address] [facility] 6720 (BEAKER) (test code = RODOLFO Pitts NATHALIE MARY 1538) [address] [id number] 21:01:00 Test Item Value Reference Range Interpretation Comments POTASSIUM (BEAKER) 4.1 meq/L 3.5-5.1 Specimen slightly (test code = 379) hemolyzed [id number] 18:20:00 Test Item Value Reference Range Interpretation Comments POTASSIUM (BEAKER) (test code = 4.0 meq/L 3.5-5.1 379) [id number] 18:20:00 Test Item Value Reference Range Interpretation Comments MAGNESIUM (BEAKER) (test code = 1.8 mg/dL 1.6-2.6 627) [id number] 18:20:00 Test Item Value Reference Range Interpretation Comments PHOSPHORUS (BEAKER) (test code = 1.9 mg/dL 2.3-4.7 L 604) [id number] 18:20:00 Test Item Value Reference Range Interpretation Comments CALCIUM (BEAKER) (test code = 697) 8.9 mg/dL 8.4-10.2 POCT-GLUCOSE [id number] 17:24:00 Test Item Value Reference Range Interpretation Comments POC-GLUCOSE METER 100 mg/dL 70-110 TESTED AT [place] [address] (BEAKER) (test code = RODOLFO [facility] 1538) [address] BLOOD GAS, [id number] 14:09:00 Test Item Value Reference Range Interpretation [...] (BEAKER) (test code = 1819) 100.0 % [id number] 13:11:00 Test Item Value Reference Range Interpretation Comments POTASSIUM (BEAKER) (test code = 4.2 meq/L 3.5-5.1 379) POCT-GLUCOSE [id number] 12:04:00 Test Item Value Reference Range Interpretation Comments POC-GLUCOSE METER 86 mg/dL 70-110 TESTED AT [place] [address] (BEAKER) (test code = [facility] [address] 1538) [id number] 08:55:00 Test Item Value Reference Range Interpretation Comments POTASSIUM (BEAKER) (test code = 4.2 meq/L 3.5-5.1 379) BLOOD GAS, [id number] 08:49:00 Test Item Value Reference Range Interpretation [...] % Please obtain with patient off bipapPOCT-GLUCOSE [id number] 07:13:00 Test Item Value Reference Range Interpretation Comments POC-GLUCOSE METER 83 mg/dL 70-[address] [facility] 6720 (BEAKER) (test code = [place] [address] 1538) [id number] 04:01:00 Test Item Value Reference Range Interpretation Comments PHOSPHORUS (BEAKER) (test code = 1.8 mg/dL 2.3-4.7 L 604) [id number] 04:01:00 Test Item Value Reference Range Interpretation Comments MAGNESIUM (BEAKER) (test code = 1.7 mg/dL 1.6-2.6 627) COMPREHENSIVE METABOLIC [id number] 04:01:00 Test Item Value Reference Range Interpretation [...] DIALYSIS PATIEN TS. LACTIC ACID, ARTERIAL, WHOLE [id number] 03:49:00 Test Item Value Reference Range Interpretation [...] BLOOD CELLS 1 /100 WBC 0-0 H ([facility]) (test code = 413) [id number] 03:47:00 Test Item Value Reference Range Interpretation Comments PARTIAL THROMBOPLASTIN TIME 32.8 seconds 22.5-36.0 (BEAKER) (test code = 760) PROTHROMBIN [id number] 03:46:00 Test Item Value Reference Range Interpretation Comments PROTIME (BEAKER) (test code = 15.0 seconds 11.7-14.7 H 759) INR (BEAKER) (test code = 370) 1.2 <=5.9 RECOMMENDED COUMADIN/WARFARIN INR THERAPY RANGESSTANDARD DOSE: 2.0 - 3.0 Includes: PROPHYLAXIS forvenous thrombosis, systemic embolization; TREATMENT for venous thrombosis and/or pulmonary embolus.HIGH RISK: Target INR is 2.5-3.5 for patients with mechanical heart valves.CALCIUM, [id number] 03:38:00 Test Item Value Reference Range Interpretation Comments CALCIUM IONIZED ([facility]) (test 1.17 mmol/L 1.12-1.27 code = 698) PH, BLOOD ([facility]) (test code = 7.39 1810) POCT-GLUCOSE [id number] 23:04:00 Test Item Value Reference Range Interpretation Comments POC-GLUCOSE METER 94 mg/dL 70-110 TESTED AT [place] [address] ([facility]) (test code = [facility] [address] 1538) [id number] 21:57:00 Test Item Value Reference Range Interpretation Comments POTASSIUM ([facility]) (test code = 4.4 meq/L 3.5-5.1 379) POCT-GLUCOSE [id number] 18:02:00 Test Item Value Reference Range Interpretation Comments POC-GLUCOSE METER 99 mg/dL 70-110 TESTED AT [place] [address] ([facility]) (test code = [facility] [address] 1538) BLOOD GAS, [id number] 17:15:00 Test Item Value Reference Range Interpretation Comments PH VENOUS ([facility]) (test code = 7.31 7.32-7.42 L 701) PCO2 VENOUS ([facility]) (test code = 57 mmHg 41-51 H 755) PO2 VENOUS (BEAKER) (test code = 30 mmHg 25-40 702) O2 SATURATION VENOUS (BEAKER) 49.7 % 40.0-70.0 (test code = 703) HCO3 VENOUS (BEAKER) (test code = 28 mmol/L 21-29 705) BASE EXCESS VENOUS (BEAKER) (test 1.2 mmol/L -2.0-3.0 code = 704) PATIENT TEMPERATURE (BEAKER) (test 37.0 C code = 1818) [id number] 16:07:00 Test Item Value Reference Range Interpretation Comments POTASSIUM (BEAKER) (test code = 4.4 meq/L 3.5-5.1 379) [id number] 16:07:00 Test Item Value Reference Range Interpretation Comments MAGNESIUM (BEAKER) (test code = 2.0 mg/dL 1.6-2.6 627) [id number] 16:07:00 Test Item Value Reference Range Interpretation Comments PHOSPHORUS (BEAKER) (test code = 2.1 mg/dL 2.3-4.7 L 604) [id number] 16:07:00 Test Item Value Reference Range Interpretation Comments CALCIUM (BEAKER) (test code = 697) 8.2 mg/dL 8.4-10.2 L MR, ABDOMEN, [id number] 15:19:00FINAL REPORT INDICATION:57-year-old female with abdominal pain, [...] MDReport Verified Date/Time: 04/29/2018 15:19:21 Reading Location: [facility] C013Y CT Body Reading Room U/S, RENAL WITH [id number] 14:53:00Reason for exam:->ENRIQUE with severe sepsisShould this [...] Ken MDReportVerified Date/Time: 04/29/2018 14:53:07 Reading Location: [address] Ultrasound Reading Room BLOOD GAS, [id number] 14:33:00 Test Item Value Reference Range Interpretation [...] (test code = 1819) 100.0 % POCT-GLUCOSE [id number] 12:20:00 Test Item Value Reference Range Interpretation Comments POC-GLUCOSE METER 116 mg/dL 70-[address] [facility] 6720 (BEAKER) (test code = DANIELALCIDES Gisselle [facility] 1538) [address] BLOOD GAS, [id number] 10:57:00 Test Item Value Reference Range Interpretation [...] (BEAKER) (test code = 1819) 100.0 % [id number] 10:19:00 Test Item Value Reference Range Interpretation [...] METER 125 mg/dL 70-[address] [facility] 6720 (BEAKER) (test code = RODOLFO [place] 1538) [address] BLOOD GAS, [id number] 06:41:00 Test Item Value Reference Range Interpretation [...] (test code = 1819) 28.0 % CALCIUM, [id number] 06:14:00 Test Item Value Reference Range Interpretation Comments CALCIUM IONIZED (BEAKER) (test 1.11 mmol/L 1.12-1.27 L code = 698) PH, BLOOD (BEAKER) (test code = 7.20 1810) COMPREHENSIVE METABOLIC [id number] 06:06:00 Test Item Value Reference Range Interpretation [...] APPLICABLE FOR DIALYSIS PATIEN TS. BASIC METABOLIC [id number] 06:05:00 Test Item Value Reference Range Interpretation [...] S NOT APPLICABLE FOR DIALYSIS PATIEN TS. [id number] 05:13:00 Test Item Value Reference Range Interpretation Comments PHOSPHORUS (BEAKER) (test code = 3.5 mg/dL 2.3-4.7 604) [id number] 05:13:00 Test Item Value Reference Range Interpretation Comments MAGNESIUM (BEAKER) (test code = 2.2 mg/dL 1.6-2.6 627) HIV-1 ANTIGEN WITH HIV-1/2 [id number] 05:12:00 Test Item Value Reference Range Interpretation Comments HIV-1 ANTIGEN WITH HIV 1\\T\\2 Nonreactive Nonreactive ANTIBODY (2) (BEAKER) (test code = 2586) LACTIC ACID, ARTERIAL, WHOLE [id number] 04:48:00 Test Item Value Reference Range Interpretation Comments LACTATE BLOOD ARTERIAL (2) 1.0 mmol/L 0.5-2.2 (BEAKER) (test code = 2874) Effective 12/15/2015: Units/Reference Range ChangeNew: 0.5-2.2 mmol/L Previous: 5-20 mg/[id number] 04:47:00 Test Item Value Reference Range Interpretation Comments PARTIAL THROMBOPLASTIN TIME 34.3 seconds 22.5-36.0 (BEAKER) (test code = 760) PROTHROMBIN [id number] 04:45:00 Test Item Value Reference Range Interpretation [...] WBC 0-0 (BEAKER) (test code = 413) [id number] 00:18:00 Test Item Value Reference Range Interpretation Comments POTASSIUM (BEAKER) (test code = 3.9 meq/L 3.5-5.1 379) POCT-GLUCOSE [id number] 22:25:00 Test Item Value Reference Range Interpretation Comments POC-GLUCOSE METER 172 mg/dL 70-[address] [facility] 6720 (BEAKER) (test code = [place]CID[place] 1538) [address] [id number] 20:46:00 Test Item Value Reference Range Interpretation Comments CALCIUM (BEAKER) (test code = 697) 7.1 mg/dL 8.4-10.2 L [id number] 20:34:00 Test Item Value Reference Range Interpretation Comments PHOSPHORUS (BEAKER) 3.5 mg/dL 2.3-4.7 Specimen slightly (test code = 604) hemolyzed [id number] 20:34:00 Test Item Value Reference Range Interpretation Comments POTASSIUM (BEAKER) 3.9 meq/L 3.5-5.1 Specimen slightly (test code = 379) hemolyzed [id number] 20:32:00 Test Item Value Reference Range Interpretation Comments MAGNESIUM (BEAKER) 2.2 mg/dL 1.6-2.6 Specimen slightly (test code = 627) hemolyzed POCT-GLUCOSE [id number] 18:02:00 Test Item Value Reference Range Interpretation Comments POC-GLUCOSE METER 151 mg/dL 70-110 H TEST[facility] AT [place] [address] [facility] (test code = RODOLFO [place] 1538) [address] [id number] 15:43:00 Test Item Value Reference Range Interpretation Comments POTASSIUM (BEAKER) (test code = 4.0 meq/L 3.5-5.1 379) RAD, CHEST, 1 VIEW, NON [id number] 15:34:00Reason for exam:->HD cath placementShould this be performed at the bedside?->YesFINAL REPORT AP chest HISTORY: 04/28/2018 IMPRESSION:Right IJ dialysis catheter placed with tip at upper SVC. Remainder supportive lines unchanged. Stable cardiac silhouette. Hypoinflation. Mild perihilar atelectasis. No pneumothorax. Signed: Madeleine Santacruz MDReport Verified Date/Time: 04/28/2018 15:34:26 Reading Location: [address] Ortho Consult Reading Room PLATELET [id number] 15:32:00 Test Item Value Reference Range Interpretation Comments PLATELET COUNT (BEAKER) (test 105 K/CU MM 150-450 L code = 756) Please draw in citrate (blue top) tube at next blood drawACETAMINOPHEN LEVEL 2018-04-28 11:35:00 Test Item Value Reference Range Interpretation Comments ACETAMINOPHEN LEVEL (BEAKER) (test < ug/mL 10.0-30.0 L code = 344) Therapeutic Range: 10.0-30.0 g/mLToxic Levels: >200.0 g/mLPOCT-GLUCOSE [id number] 11:15:00 Test Item Value Reference Range Interpretation Comments POC-GLUCOSE METER 152 mg/dL 70-[address] [facility] 6720 (BEAKER) (test code = [place]OL[place] 1538) [address] HEPATITIS B SURFACE [id number] 11:06:00 Test Item Value Reference Range Interpretation Comments HEPATITIS B SURFACE ANTIGEN (2) Nonreactive Nonreactive (BEAKER) (test code = 2585) HEPATITIS B CORE ANTIBODY, [id number] 11:06:00 Test Item Value Reference Range Interpretation Comments HEPATITIS B CORE IGM ANTIBODY Nonreactive Nonreactive (BEAKER) (test code = 645) HEPATITIS C [id number] 11:06:00 Test Item Value Reference Range Interpretation Comments HEPATITIS C ANTIBODY (BEAKER) Nonreactive Nonreactive (test code = 367) HEPATITIS A ANTIBODY, [id number] 11:06:00 Test Item Value Reference Range Interpretation Comments HEPATITIS A IGM ANTIBODY (BEAKER) Nonreactive Nonreactive (test code = 498) PROTEIN, RANDOM [id number] 11:03:00 Test Item Value Reference Range Interpretation Comments PROTEIN, URINE (BEAKER) (test code 191 mg/dL 0-14 H = 1569) HEMOGLOBIN [id number] 10:45:00 Test Item Value Reference Range Interpretation Comments HEMOGLOBIN A1C (BEAKER) (test code = 5.5 % 4.3-6.1 368) CREATININE, RANDOM [id number] 10:42:00 Test Item Value Reference Range Interpretation Comments CREATININE URINE (BEAKER) (test 50.7 mg/dL code = 375) Reference Range: No NormalsSODIUM, RANDOM [id number] 10:42:00 Test Item Value Reference Range Interpretation Comments SODIUM URINE (BEAKER) (test code = 48 meq/L 243) Reference Range: No NormalsBASIC METABOLIC [id number] 09:24:00 Test Item Value Reference Range Interpretation [...] NOT APPLICABLE FOR DIALYSIS PATIEN TS. CALCIUM, [id number] 09:19:00 Test Item Value Reference Range Interpretation Comments CALCIUM IONIZED (BEAKER) (test 0.93 mmol/L 1.12-1.27 L code = 698) PH, BLOOD (BEAKER) (test code = 7.20 1810) [id number] 09:13:00 Test Item Value Reference Range Interpretation Comments HAPTOGLOBIN (BEAKER) (test code = 164 mg/dL 14-258 366) [id number] 09:12:00 Test Item Value Reference Range Interpretation Comments PHOSPHORUS (BEAKER) (test code = 4.5 mg/dL 2.3-4.7 604) [id number] 09:12:00 Test Item Value Reference Range Interpretation Comments MAGNESIUM (BEAKER) (test code = 1.7 mg/dL 1.6-2.6 627) RAD, CHEST, 1 VIEW, NON [id number] 09:01:00Reason for exam:- >hypoxiaShould this be performed at the bedside?->YesFINAL REPORT AP chest HISTORY: Hypoxia COMPARISON: 04/27/2018 IMPRESSION:Suppor tive lines unchanged. Stable cardiac silhouette. Minimal perihilar atelectasis. No pneumothorax. Signed: Madeleine Santacruz MDReport Verified Date/Time: 04/28/2018 09:01:47 Reading Location: [facility] Y870AMxize Consult Reading Room PHERAL BLOOD SMEAR - HOLD [id number] 08:58:00 Test Item Value Reference Range Interpretation Comments PERIPHERAL SMEAR SAVE (BEAKER) (test saved code = 1815) RETICULOCYTE [id number] 08:58:00 Test Item Value Reference Range Interpretation Comments RETICULOCYTE COUNT PCT (BEAKER) (test 3.6 % 0.5-1.7 H code = 575) HEMOGLOBIN AND [id number] 08:52:00 Test Item Value Reference Range Interpretation Comments HEMOGLOBIN (BEAKER) (test code = 8.2 GM/DL 11.2-15.7 L 410) HEMATOCRIT (BEAKER) (test code = 24.9 % 34.1-44.9 L 411) CBC W/PLT COUNT & AUTO [id number] 07:40:00 Test Item Value Reference Range Interpretation [...] (BEAKER) Present (test code = 483) URINE [id number] 05:57:00 Test Item Value Reference Range Interpretation Comments CULTURE (BEAKER) (test code = 1095) No growth [id number] 05:00:00 Test Item Value Reference Range Interpretation Comments PHOSPHORUS (BEAKER) (test code = 4.4 mg/dL 2.3-4.7 604) [id number] 05:00:00 Test Item Value Reference Range Interpretation Comments MAGNESIUM (BEAKER) (test code = 1.6 mg/dL 1.6-2.6 627) HEMOGLOBIN AND [id number] 04:48:00 Test Item Value Reference Range Interpretation Comments HEMOGLOBIN (BEAKER) (test code = 8.0 GM/DL 11.2-15.7 L 410) HEMATOCRIT (BEAKER) (test code = 24.0 % 34.1-44.9 L 411) LIPID [id number] 03:38:00 Test Item Value Reference Range Interpretation [...] 130-159 High 160-189 Very High >=190HEPATIC FUNCTION [id number] 03:38:00 Test Item Value Reference Range Interpretation [...] 1138 U/L 125-220 H code = 635) [id number] 03:38:00 Test Item Value Reference Range Interpretation Comments LIPASE (AYADAKER) (test code = 749) 525 U/L 8-78 H C-REACTIVE [id number] 03:38:00 Test Item Value Reference Range Interpretation Comments C-REACTIVE PROTEIN (BEAKER) (test 12.99 mg/dL 0.00-0.50 H code = 676) [id number] 03:23:00 Test Item Value Reference Range Interpretation Comments FIBRINOGEN LEVEL (BEAKER) (test 328 mg/dl 225-434 code = 658) [id number] 03:23:00 Test Item Value Reference Range Interpretation Comments PROTIME (MARIA ELENA) (test code = 16.2 seconds 11.7-14.7 H 759) INR (MARIA ELENA) (test code = 370) 1.3 <=5.9 PARTIAL THROMBOPLASTIN TIME 26.9 seconds 22.5-36.0 (MARIA ELE[facility]) (test code = 760) RECOMMENDED COUMADIN/WARFARIN INR THERAPY RANGESSTANDARD DOSE: 2.0 - 3.0 Includes: PROPHYLAXIS forvenous thrombosis, systemic embolization; TREATMENT for venous thrombosis and/or pulmonary embolus.HIGH RISK: Target INR is 2.5-3.5 for patients with mechanical heart valves.PROTHROMBIN [id number] 03:22:00 Test Item Value Reference Range Interpretation Comments PROTIME ([facility]) (test code = 16.2 seconds 11.7-14.7 H 759) INR (MARIA ELENA) (test code = 370) 1.3 <=5.9 RECOMMENDED COUMADIN/WARFARIN INR THERAPY RANGESSTANDARD DOSE: 2.0 - 3.0 Includes: PROPHYLAXIS forvenous thrombosis, systemic embolization; TREATMENT for venous thrombosis and/or pulmonary embolus.HIGH RISK: Target INR is 2.5-3.5 for patients with mechanical heart valves.POCT-GLUCOSE [id number] 02:57:00 Test Item Value Reference Range Interpretation Comments POC-GLUCOSE METER 135 mg/dL 70-[address] [facility] 6720 (MARIA ELENA) (test code = [place] 1538) [address] POCT-GLUCOSE [id number] 00:21:00 Test Item Value Reference Range Interpretation Comments POC-GLUCOSE METER 177 mg/dL 70-[address] [facility] (test code = RODOLFO [place] 1538) [address] HEMOGLOBIN AND [id number] 00:21:00 Test Item Value Reference Range Interpretation Comments HEMOGLOBIN (BEAKER) (test code = 8.3 GM/DL 11.2-15.7 L 410) HEMATOCRIT (BEAKER) (test code = 24.6 % 34.1-44.9 L 411) POCT-GLUCOSE [id number] 22:08:00 Test Item Value Reference Range Interpretation Comments POC-GLUCOSE METER 156 mg/dL 70-[address] [facility] (test code = RODOLFO Pitts [facility] 1538) [address] POCT-GLUCOSE [id number] 18:16:00 Test Item Value Reference Range Interpretation Comments POC-GLUCOSE METER 156 mg/dL 70-110 H TESTED AT [place] [address] [facility] (test code = RODOLFO Pitts [facility] 1538) [address] LACTATE DEHYDROGENASE (LDH)2018-04-27 16:18:00 Test Item Value Reference Range Interpretation Comments LACTATE DEHYDROGENASE (AYADAKER) (test 1130 U/L 125-220 H code = 635) RAD, CHEST, 1 VIEW, NON [id number] 15:58:00Reason for exam:->LIJ placementShould this be performed [...] MDReport Verified Date/Time: 04/27/2018 15:58:19 Reading Location: [address] Transitional Reading Room HEMOGLOBIN AND [id number] 15:37:00 Test Item Value Reference Range Interpretation Comments HEMOGLOBIN (BEAKER) (test code = 8.8 GM/DL 11.2-15.7 L 410) HEMATOCRIT (BEAKER) (test code = 26.1 % 34.1-44.9 L 411) PERIPHERAL BLOOD SMEAR - HOLD [id number] 14:50:00 Test Item Value Reference Range Interpretation Comments PERIPHERAL SMEAR SAVE (BEAKER) (test saved code = 1815) C-REACTIVE [id number] 12:47:00 Test Item Value Reference Range Interpretation Comments C-REACTIVE PROTEIN (BEAKER) (test 9.17 mg/dL 0.00-0.50 H code = 676) POCT-GLUCOSE [id number] 12:15:00 Test Item Value Reference Range Interpretation Comments POC-GLUCOSE METER 164 mg/dL 70-[address] [facility] 6720 (BEAKER) (test code = R[place]OL[place] 1538) [address] B-TYPE NATRIURETIC FACTOR (BNP)2018-04-27 11:37:00 Test Item Value Reference Range Interpretation Comments B-TYPE NATRIURETIC PEPTIDE (BEAKER) 176 pg/mL 0-100 H (test code = 700) HEMOGLOBIN AND [id number] 11:08:00 Test Item Value Reference Range Interpretation Comments HEMOGLOBIN (BEAKER) (test code = 8.7 GM/DL 11.2-15.7 L 410) HEMATOCRIT (BEAKER) (test code = 25.6 % 34.1-44.9 L 411) [id number] 10:07:00 Test Item Value Reference Range Interpretation Comments FERRITIN (BEAKER) (test code = 4542 ng/mL 5-275 H 361) VITAMIN [id number] 10:06:00 Test Item Value Reference Range Interpretation Comments VITAMIN B12 (BEAKER) (test code = > pg/mL 213-816 H 774) CBC W/PLT COUNT & AUTO [id number] 09:11:00 Test Item Value Reference Range Interpretation [...] 36 % 20-55 (test code = 2590) [id number] 09:03:00 Test Item Value Reference Range Interpretation Comments PHOSPHORUS (BEAKER) (test code = 4.2 mg/dL 2.3-4.7 604) LACTIC ACID, VENOUS, WHOLE [id number] 09:00:00 Test Item Value Reference Range Interpretation Comments LACTATE BLOOD VENOUS (2) (BEAKER) 1.0 mmol/L 0.5-2.2 (test code = 2872) Effective 12/15/2015: Units/Reference Range ChangeNew: 0.5-2.2 mmol/L Previous: 5-20 mg/dLHEMOGLOBIN [id number] 08:35:00 Test Item Value Reference Range Interpretation Comments HEMOGLOBIN A1C (BEAKER) (test code = 5.0 % 4.3-6.1 368) U/S, ABDOMINAL, [id number] 07:57:00Abdomen limited area? Add comment if clarification [...] MDReport Verified Date/Time: 04/27/2018 07:57:35 Reading Location: [address] Consult Reading Room [id number] 07:07:00 Test Item Value Reference Range Interpretation Comments MAGNESIUM (BEAKER) (test code = 1.8 mg/dL 1.6-2.6 627) LACTIC ACID, VENOUS, WHOLE [id number] 07:05:00 Test Item Value Reference Range Interpretation Comments LACTATE BLOOD VENOUS 1.1 mmol/L 0.5-2.2 Specime n slightly (2) (BEAKER) (test hemolyzed code = 2872) Effective 12/15/2015: Units/Reference Range ChangeNew: 0.5-2.2 mmol/L Previous: 5-20 mg/dLHEMOGLOBIN AND [id number] 06:54:00 Test Item Value Reference Range Interpretation Comments HEMOGLOBIN (BEAKER) (test code = 9.0 GM/DL 11.2-15.7 L 410) HEMATOCRIT (BEAKER) (test code = 26.7 % 34.1-44.9 L 411) POCT-GLUCOSE [id number] 06:28:00 Test Item Value Reference Range Interpretation Comments POC-GLUCOSE METER 122 mg/dL 70-[address] [facility] 67[address] (BEAKER) (test code = [place] 1538) [address] [id number] 05:17:00 Test Item Value Reference Range Interpretation Comments AMMONIA (BEAKER) (test code = 348) 40 mol/L 18-72 POCT-GLUCOSE [id number] 04:46:00 Test Item Value Reference Range Interpretation Comments POC-GLUCOSE METER 166 mg/dL 70-[address] [facility] 6720 (BEAKER) (test code = RODOLFO [place] 1538) [address] BLOOD GAS, [id number] 04:15:00 Test Item Value Reference Range Interpretation [...] (test code = 1819) 32 URINALYSIS W/ [id number] 01:36:00 Test Item Value Reference Range Interpretation [...] 1584) SOURCE(BEAKER) (test code = Urine, [place] 4825) HEMOGLOBIN AND [id number] 01:19:00 Test Item Value Reference Range Interpretation Comments HEMOGLOBIN (BEAKER) (test code = 9.0 GM/DL 11.2-15.7 L 410) HEMATOCRIT (BEAKER) (test code = 26.3 % 34.1-44.9 L 411) [id number] 00:57:00 Test Item Value Reference Range Interpretation Comments PHOSPHORUS (BEAKER) (test code = 0.7 mg/dL 2.3-4.7 LL 604) COMPREHENSIVE METABOLIC [id number] 00:55:00 Test Item Value Reference Range Interpretation [...] APPLICABLE FOR DIALYSIS PATIEN TS. Specimen slightly [id number] 00:53:00 Test Item Value Reference Range Interpretation Comments MAGNESIUM (BEAKER) (test code = 1.9 mg/dL 1.6-2.6 627) LIPID [id number] 00:53:00 Test Item Value Reference Range Interpretation [...] 160-189 Very High >=190 Specimen slightly ictericCALCIUM, [id number] 00:50:00 Test Item Value Reference Range Interpretation Comments CALCIUM IONIZED (BEAKER) (test 1.02 mmol/L 1.12-1.27 L code = 698) PH, BLOOD (BEAKER) (test code = 7.31 1810) LACTIC ACID, VENOUS, WHOLE [id number] 00:47:00 Test Item Value Reference Range Interpretation Comments LACTATE BLOOD VENOUS (2) (BEAKER) 3.6 mmol/L 0.5-2.2 H (test code = 2872) Effective 12/15/2015: Units/Reference Range ChangeNew: 0.5-2.2 mmol/L Previous: 5-20 mg/dLCBC W/PLT COUNT & AUTO [id number] 00:40:00 Test Item Value Reference Range Interpretation [...] Neutrophilic inclusions seen.RAD, CHEST, 1 VIEW, NON [id number] 00:24:00Reason for exam:->sob, coughShould this be performed [...] Mares Verified Date/Time: 04/27/2018 00:24:54 Reading Location: [address] Body Reading Room PROTHROMBIN [id number] 23:51:00 Test Item Value Reference Range Interpretation Comments PROTIME (BEAKER) (test code = 15.5 seconds 11.7-14.7 H 759) INR (BEAKER) (test code = 370) 1.2 <=5.9 RECOMMENDED COUMADIN/WARFARIN INR THERAPY RANGESSTANDARD DOSE: 2.0 - 3.0 Includes: PROPHYLAXIS forvenous thrombosis, systemic embolization; TREATMENT for venous thrombosis and/or pulmonary embolus.HIGH RISK: Target INR is 2.5-3.5 for patients with mechanical heart valves.[id number] 23:51:00 Test Item Value Reference Range Interpretation Comments FIBRINOGEN LEVEL (BEAKER) (test 231 mg/dl [id number] code = 658)
[2022-03-05] MEDS ORDERED: LEVALBUTEROL 1.25 MG/3 ML NEB ONE (14:46)
[2022-03-05] MEDS ORDERED: ONDANSETRON 4 MG/2 ML VIAL ONE (14:46)
[2022-03-05] MEDS ORDERED: MORPHINE 4 MG/ML SYR ONE ×2 (14:46→15:50)
[2022-03-05 14:54] LABS: Protime INR 0.99
[2022-03-05 14:58] LABS: Absolute Lymphocytes (CBC) 3.4 K/uL (0.7-4.9); Hematocrit 47.5 % (36.0-45.0); Lymphocytes % 30.7 % (15.3-44.8); MPV 7.3 fL (7.6-11.3); RBC Red Blood Cell Count 5.46 M/uL (3.86-4.86)
[2022-03-05 15:12] LABS: ALT/SGPT 19 U/L (12-78); AST/SGOT 12 U/L (15-37); Alkaline Phosphatase 74 U/L (45-117); BUN Blood Urea Nitrogen 12 mg/dL (7-18); Bicarbonate 20 mmol/L (21-32); Bilirubin Direct < 0.1 mg/dL (0-0.2); Bilirubin Total 0.3 mg/dL (0.2-1.0); Glomerular Filtration Rate 96 ml/min (=/>90); Glucose Level 135 mg/dL (74-106); Magnesium 1.7 mg/dL (1.8-2.4); NT PRO-BNP 121 pg/mL (<125); Potassium 3.4 mmol/L (3.5-5.1); Sodium Level 140 mmol/L (136-145); Troponin High Sensitivity 16.4 pg/mL (<58.9)
[2022-03-05] MEDS ORDERED: METHYLPREDNISOLONE 125 MG INJ ONE (15:49)
--- NOTE | 2022-03-05 16:02 | RAD REPORT ---
EXAM DESCRIPTION: RAD - Chest Single View - 03/05/2022 3:53 pm CLINICAL HISTORY: CHEST PAIN COMPARISON: Single View dated 10/14/2021; Abdomen 1 View (KUB) dated 10/03/2021; Abdomen 1 View (KUB) d ated 10/02/2021; Chest Single View dated 10/01/2021 FINDINGS: Lines: None. Lungs: No evidence of edema or pneumonia. Pleural: No significant pleural effusions or pneumothorax. Cardiac: The heart size is within normal limits. Bones: No acute fractures. Other: IMPRESSION: No acute cardiopulmonary disease.
[2022-03-05] MEDS ORDERED: MAGNESIUM SULFATE 1 gm IVPB 1 GM/100 ML BAG IV ONE (16:23)
[2022-03-05] MEDS ORDERED: NA CHLORIDE 0.9% 1,000 ML ONE (16:23)
[2022-03-05 16:51] LABS: Arterial Blood Carboxyhemoglob 2.6 % (0-1.5); Blood Gas Oxyhemoglobin 90.6 % (94-97); Blood O2 Saturation 94.2 % (92-98.5)
--- NOTE | 2022-03-05 17:43 | RAD REPORT ---
EXAM DESCRIPTION: CTAngio Aorta For Dissection - 03/05/2022 5:29 pm CLINICAL HISTORY: chest, abdomen pain COMPARISON: PET CTSKULL THIGH dated 10/23/2008; Abdomen Pelvis W Contrast dated 09/30/2021 TECHNIQUE: CT of the chest, abdomen, and pelvis was performed using a CTA protocol with MIPS. All CT scans are performed using dose optimization technique as appropriate and may include automated exposure control or mA/KV adjustment according to patient size. FINDINGS: Thorax: Chest Wall: No abnormal mass Lungs: No acute abnormality. Right upper lobe wedge resection. Pleura: No effusions or pneumothorax. Maci/Mediastinum: No lymphadenopathy. Circumferential thickening the esophagus. Aorta/Pulmonary Arteries: Ectasia ascending thoracic aorta. Heart: Normal size. Abdomen/Pelvis: Liver: No acute abnormality or suspicious lesions. Mild intrahepatic biliary duct dilatation to the l eft hepatic lobe. Biliary: No biliary ductal dilatation. Stomach: No significant focal abnormality. Duodenum: No significant focal abnormality. Pancreas: No significant abnormality. Spleen: No significant abnormality. Adrenal: Unchanged right adrenal nodule. Kidney/ureter: No hydronephrosis. No renal calculi. Left upper pole renal cyst. Retroperitoneum: No retroperitoneal adenopathy. Vascular: No aneurysm. Bowel: Near neck small bowel containing ventral hernia containing Meckel's small bowel. No bowel obst ruction. Partial bowel resection. Diverticulosis without diverticulitis.. Peritoneum: No ascites or free air. Prior inguinal hernia repair. Bladder: Grossly unremarkable. Reproductive: No adnexal masses. Bones: No acute fracture. Remote left-sided rib fractures . Other: n/a IMPRESSION: No acute findings within the chest, abdomen, or pelvis. Specifically, no evidence of aor tic aneurysm or dissection. No pulmonary embolus. Incidentally noted small bowel containing ventral hernia with narrow neck. This is new since 09/30/19 22. It may be transient. No bowel obstruction.
[2022-03-05 18:01] LABS: Urine Blood Negative (Negative); Urine Glucose Negative (Negative); Urine Protein 1+ (Negative)
[2022-03-05 18:17] LABS: Urine Bacteria <20 /HPF (<20); Urine RBC None Seen /HPF (None Seen)
[2022-03-05 18:19] LABS: Barbiturates NEGATIVE (NEGATIVE); Benzodiazepines NEGATIVE (NEGATIVE); Cocaine NEGATIVE (NEGATIVE); METHAMPHETAM NEGATIVE (NEGATIVE); Methadone NEGATIVE (NEGATIVE); Opiates POSITIVE (NEGATIVE); Phencyclidine NEGATIVE (NEGATIVE); THC Cannibis NEGATIVE (NEGATIVE)
[2022-03-05] MEDS ORDERED: MAGNES/ALUMIN/SIMET 30ML UCUP ONE (18:37)
[2022-03-05] MEDS ORDERED: LIDOCAINE VISCOUS 2% SOLN 15 ML UDC ONE (18:38)
[2022-03-05] MEDS ORDERED: LORazepam 2 MG/ML VIAL ONE (18:38)
[2022-03-05] MEDS ORDERED: POTASSIUM 25 MEQ EFFERV TAB ONE (18:38)
[2022-03-05] MEDS ORDERED: PANTOPRAZOLE 40 MG INJ ONE (18:38)
--- NOTE | 2022-03-05 19:48 | ER ---
Nurse's Notes [facility] Name: Madelaine Leonard Age: 61 yrs Sex: Female : 1960 Arrival Date: 03/05/2022 Time: 14:24 Bed 3 Private MD: Diagnosis: Anxiety disorder, unspecified;Chest pain, unspecified;Abdominal pain, unspecified Presentation: 03/05 14:29 Chief complaint: EMS states: "we were called for pt with seizure like activity and jd3 having hallucinations, the pt has be said to have episodes like this before of extreme anxiety attacks. we gave 2 mg of Ativan at 1407, BGL at 103.". Coronavirus screen: At this time, the client does not indicate any symptoms associated with coronavirus-19. Ebola Screen: No symptoms or risks identified at this time. Initial Sepsis Screen: Does the patient meet any 2 criteria? RR > 20 per min. HR > 90 bpm. Yes Does the patient have a suspected source of infection? No. Patient's initial sepsis screen is negative. Risk Assessment: Do you want to hurt yourself or someone else? Patient reports no desire to harm self or others. Onset of symptoms was March 05, 2022. 14:29 Acuity: DEV 1 jd3 14:29 Method Of Arrival: EMS: [facility] jd3 Historical: - Allergies: 14:32 Latex, Natural Rubber; jd3 14:32 Levofloxacin; jd3 14:32 Naproxen Sodium; jd3 14:32 PENICILLINS; jd3 - PMHx: 14:32 Fibromyalgia; Hernia; Hypertensive disorder; Chronic pain; Anxiety; jd3 - PSHx: 14:32 Repair of inguinal hernia; Total abdominal hysterectomy; jd3 - Immunization history:: Adult Immunizations unknown. - Social history:: Smoking status: unknown. Screenin:33 Abuse screen: Denies threats or abuse. Nutritional screening: No deficits noted. jd3 Tuberculosis screening: No symptoms or risk factors identified. Fall Risk Gait- Impaired (20 pts.). Mental Status- Overestimates/Forgets Limitations (15 pts.). Total Poole Fall Scale indicates High Risk Score (45 or more points). Fall prevention measures have been instituted. Side Rails Up X 2 Placed Close to Nursing Station Frequent Obs/Assessments Occuring Family Present and informed to notify staff if the need to leave the bedside. Assessment: 14:35 General: Appears distressed, uncomfortable, Behavior is cooperative, anxious, restless. jd3 Pain: Complains of pain in chest and abdomen. Neuro: Velásquez Agitation-Sedation Scale (RASS): +3 Very Agitated Level of Consciousness is awake, alert, obeys commands, Oriented to person, situation. Cardiovascular: Reports chest pain, Heart tones present Rhythm is sinus tachycardia. Respiratory: Airway is patent Respiratory effort is labored, shallow, Respiratory pattern is symmetrical, hyperventilation tachypnea Breath sounds with wheezes bilaterally. the patient has moderate shortness of breath. GI: Abdomen is round non-distended, Bowel sounds present X 4 quads. Abd is soft X 4 quads Abdomen is tender to palpation X 4 quads. Reports lower abdominal pain, upper abdominal pain. : No signs and/or symptoms were reported regarding the genitourinary system. EENT: No signs and/or symptoms were reported regarding the EENT system. Derm: Skin is intact, Skin is dry, Skin is normal, Skin temperature is cool. Musculoskeletal: No signs and/or symptoms reported regarding the musculoskeletal system. 15:14 Reassessment: Nebulizer complete. Pt hyperventilating. Verbal reassurance given. bm7 Switched pt over to nasal cannula \\T\\ 2LPM. 16:02 Reassessment: No changes from previously documented assessment. Patient and/or family jd3 updated on plan of care and expected duration. Pain level reassessed. 16:28 Reassessment: No changes from previously documented assessment. Patient and/or family jd3 updated on plan of care and expected duration. Pain level reassessed. Patient states symptoms have improved. Vital Signs: 14:30 Pulse 135; Resp 60; Pulse Ox 97% on 2 lpm NC; jd3 14:32 BP 169 / 101; Pulse 127; Resp 25; Temp 98(TE); Pulse Ox 97% on 2 lpm NC; Height 5 ft. 2 jd3 in. (157.48 cm) (R); Pain 10/10; 15:49 BP 135 / 100; Pulse 121; Resp 24; Pulse Ox 97% on 2 lpm NC; jd3 16:26 BP 141 / 92; Pulse 104; Resp 25; Pulse Ox 99% on 2 lpm NC; jd3 18:04 BP 140 / 100; Pulse 86; Resp 15 S; Pulse Ox 95% on 2 lpm NC; jd3 19:48 BP 147 / 92; Pulse 83; Resp 20 S; Pulse Ox 98% on R/A; as6 ED Course: 14:24 Patient arrived in ED. eb 14:26 Vernell Montero is Attending Physician. sd2 14:29 Kirby José, RN is Primary Nurse. jd3 14:29 [facility] Kong [facility]. cp 14:31 Triage completed. jd3 14:32 Arm band placed on. EKG completed in triage. Results shown to MD. jd3 14:33 Patient has correct armband on for positive identification. Placed in gown. Bed in low jd3 position. Call light in reach. Side rails up X2. Seizure precautions initiated. Client placed on continuous cardiac and pulse oximetry monitoring. NIBP monitoring applied. mangle operator garments on. Pulse ox on. NIBP on. 14:34 EKG done, by ED staff, reviewed by Rei AMATO. Maintain EMS IV. Dressing intact. mb7 Good blood return noted. Site clean \\T\\ dry. Gauge \\T\\ site: Left AC; 20 gauge.. 14:45 Basic Metabolic Panel Sent. mb7 14:45 CBC with Diff Sent. mb7 14:45 NT PRO-BNP Sent. mb7 14:45 Troponin HS Sent. mb7 14:45 PT-INR Sent. mb7 14:45 Magnesium Sent. mb7 14:45 LFT's Sent. mb7 14:45 ETOH Level Sent. mb7 14:48 Cool cloth applied. Verbal reassurance given. Ice pack placed on chest per pt request. mb7 15:15 Oxygen administration via nasal cannula \\T\\ 2L/min. bm7 15:19 patient "caregiver" called to leave her contact information for the providers and eb nurses could call her with any questions or concerns/ she would also like to be called with any updates/ her name is Olga newton: [phone]. 15:55 XRAY Chest (1 view) In Process Unspecified. EDMS 17:31 CT Aorta for Dissection In Process Unspecified. EDMS 20:13 No provider procedures requiring assistance completed. IV discontinued, intact, aa9 bleeding controlled, No redness/swelling at site. Pressure dressing applied. Administered Medications: 14:50 Drug: morphine 4 mg Route: IVP; Infused Over: 4 mins; Site: left antecubital; jd3 20:15 Follow up: Response: No adverse reaction aa9 14:50 Drug: Zofran (Ondansetron) 4 mg Route: IVP; Site: left antecubital; jd3 20:15 Follow up: Response: No adverse reaction aa9 14:50 Drug: Xopenex (levalbuterol) (3) 1.25 mg Route: Inhalation; jd3 15:14 Follow up: Response: No adverse reaction bm7 15:49 Drug: morphine 4 mg Route: IVP; Infused Over: 4 mins; Site: left antecubital; jd3 20:15 Follow up: Response: No adverse reaction aa9 15:49 Drug: SOLU-Medrol (methylPrednisoLONE) 125 mg Route: IVP; Site: left antecubital; jd3 20:14 Follow up: Response: No adverse reaction aa9 16:26 Drug: NS 0.9% 1000 ml Route: IV; Rate: 1 bolus; Site: left antecubital; jd3 20:14 Follow up: Response: No adverse reaction; IV Status: Completed infusion; IV Intake: aa9 1000ml 16:26 Drug: Magnesium Sulfate 1 grams Route: IVPB; Infused Over: 1 hrs; Site: left j antecubital; 20:14 Follow up: Response: No adverse reaction; IV Status: Completed infusion aa9 17:00 Drug: Ativan (LORazepam) 1 mg Route: IVP; Site: left antecubital; as6 19:19 Follow up: Response: No adverse reaction; RASS: Alert and Calm (0) as6 18:14 Drug: Potassium Effervescent Tablet 25 mEq Route: PO; as6 19:17 Follow up: Response: No adverse reaction as6 18:14 Drug: ProTONIX (pantoprazole) 40 mg Route: IVP; Site: left antecubital; as6 19:17 Follow up: Response: No adverse reaction as6 18:14 Drug: GI Cocktail without - (Maalox Suspension 30 ml, Lidocaine Liquid 2 % 15 as6 ml) Route: PO; 19:17 Follow up: Response: No adverse reaction as6 Medication: 14:33 VIS not applicable for this client. jd3 Intake: 20:14 IV: 1000ml; Total: 1000ml. aa9 Outcome: 19:47 Discharge ordered by . cp 20:13 Discharged to home via wheelchair. aa9 20:13 Condition: stable 20:13 Discharge instructions given to patient, Instructed on discharge instructions, follow up and referral plans. Demonstrated understanding of instructions, follow-up care. 20:15 Patient left the ED. aa9 Signatures: Dispatcher [employer] EDMS Rei Kong PA PA cp Davies, Jonathon, RN RN jd3 Merced Thomas Brittany, RN RN bm7 Jose Alejandro Alexandra RN RN as6 Keira Brizuela mb7 Vernell Montero MD MD sd2 Jeni Fink RN RN aa9 Corrections: (The following items were deleted from the chart) 14:55 14:32 BP 169 / 101; Pulse 17bpm; Resp 25bpm; Pulse Ox 97% 2 lpm Nasal Cannula; Temp 98F jd3 Temporal; Height 5 ft. 2 in. Reported; Pain 10/10; jd3 16:29 14:35 Neuro: Velásquez Agitation-Sedation Scale (RASS): +3 Very Agitated Level of jd3 Consciousness is awake, alert, obeys commands, Oriented to person, place, situation, jd3 19:16 18:34 GI Cocktail without - (Maalox 30 ml, Lidocaine 15 ml) PO as6 as6 19:16 18:34 ProTONIX (pantoprazole) 40 mg IVP in right antecubital as6 as6 19:17 18:34 Potassium Effervescent Tablet 25 mEq PO as6 as6 19:18 18:14 ProTONIX (pantoprazole) 40 mg IVP in right antecubital as6 as6
--- NOTE | 2022-03-05 19:48 | EDPHYS ---
Physician Documentation [facility] Name: Madelaine Leonard Age: 61 yrs Sex: Female : 1960 Arrival Date: 03/05/2022 Time: 14:24 Bed 3 Private MD: ED Physician Vernell Montero HPI: 03/05 14:35 This 61 yrs old Female presents to ER via EMS with complaints of Chest Pain, Abdominal cp Pain. 14:35 The patient presents to the emergency department with anxiety. cp 14:35 Onset: The symptoms/episode began/occurred today. Patient brought to ED by EMS after cp reported seizure. Patient shaking all over. Able to verbalize complaints of chest pain and abdominal pain. Patient reports symptoms started after family became upset. Patient give 2 mg ativan by EMS. Historical: - Allergies: 14:32 Latex, Natural Rubber; jd3 14:32 Levofloxacin; jd3 14:32 Naproxen Sodium; jd3 14:32 PENICILLINS; jd3 - PMHx: 14:32 Fibromyalgia; Hernia; Hypertensive disorder; Chronic pain; Anxiety; jd3 - PSHx: 14:32 Repair of inguinal hernia; Total abdominal hysterectomy; jd3 - Immunization history:: Adult Immunizations unknown. - Social history:: Smoking status: unknown. ROS: 14:40 Constitutional: Negative for body aches, chills, fever, poor PO intake. cp 14:40 Cardiovascular: Positive for chest pain, Negative for palpitations. cp 14:40 Respiratory: Negative for cough, shortness of breath, wheezing. 14:40 Abdomen/GI: Positive for abdominal pain, Negative for vomiting, diarrhea, constipation. 14:40 Eyes: Negative for injury, pain, redness, and discharge. cp 14:40 ENT: Negative for drainage from ear(s), ear pain, sore throat, difficulty swallowing, cp difficulty handling secretions. 14:40 Neuro: Positive for tremor, Negative for altered mental status, seizure activity. 14:40 All other systems are negative. Exam: 14:34 ECG was reviewed by the Attending Physician. cp 14:45 Constitutional: The patient appears in no acute distress, alert, awake, cp non-diaphoretic, non-toxic, well developed, well nourished, anxious. 14:45 Head/Face: Normocephalic, atraumatic. cp 14:45 Eyes: Periorbital structures: appear normal, Pupils: equal, round, and reactive to light and accomodation, Conjunctiva: normal, no exudate, no injection, Lids and lashes: appear normal, bilaterally. 14:45 ENT: External ear(s): are unremarkable, Nose: is normal, Mouth: Lips: moist, Oral mucosa: pink and intact, moist, Posterior pharynx: is normal, airway is patent. 14:45 Neck: ROM/movement: is normal, is supple, without pain, no range of motions limitations. 14:45 Chest/axilla: Inspection: normal, Palpation: is normal, no crepitus, no tenderness. 14:45 Cardiovascular: Rate: tachycardic, Rhythm: regular, Edema: is not appreciated, JVD: is not appreciated. 14:45 Respiratory: the patient does not display signs of respiratory distress, Respirations: labored breathing, that is moderate, shallow respirations, that is moderate, Breath sounds: are clear throughout, no decreased breath sounds, no stridor, no wheezing. 14:45 Abdomen/GI: Inspection: obese Bowel sounds: active, all quadrants, Palpation: soft, in all quadrants, moderate abdominal tenderness, in the umbilical area, rebound tenderness, is not appreciated, involuntary guarding, is not appreciated. 14:45 Neuro: Orientation: to person, place, situation, Mentation: able to follow commands, Motor: moves all fours, strength is normal, Sensation: no obvious gross deficits, Abnormal movements: tremulous and restless. 14:45 Psych: Behavior/mood is anxious, Affect is animated. 19:45 ECG was reviewed by the Attending Physician. cp Vital Signs: 14:30 Pulse 135; Resp 60; Pulse Ox 97% on 2 lpm NC; jd3 14:32 BP 169 / 101; Pulse 127; Resp 25; Temp 98(TE); Pulse Ox 97% on 2 lpm NC; Height 5 ft. 2 jd3 in. (157.48 cm) (R); Pain 10/10; 15:49 BP 135 / 100; Pulse 121; Resp 24; Pulse Ox 97% on 2 lpm NC; jd3 16:26 BP 141 / 92; Pulse 104; Resp 25; Pulse Ox 99% on 2 lpm NC; jd3 18:04 BP 140 / 100; Pulse 86; Resp 15 S; Pulse Ox 95% on 2 lpm NC; jd3 19:48 BP 147 / 92; Pulse 83; Resp 20 S; Pulse Ox 98% on R/A; as6 MDM: 14:26 Patient medically screened. sd2 19:45 Data reviewed: vital signs, nurses notes, lab test result(s), EKG, radiologic studies, cp CT scan, plain films. 19:45 Test interpretation: by ED physician or midlevel provider: ECG, plain radiologic cp studies. Response to treatment: the patient's symptoms have markedly improved after treatment, the patient's condition has returned to base line, and as a result, I will discharge patient. Special discussion: Based on the patient's history, exam, and Dx evaluation, there is no indication for emergent intervention or inpatient Tx. It is understood by the patient/guardian that if the Sx's persist or worsen they need to return immediately for re-evaluation. Based on the patient's Hx, exam, and Dx evaluation, there is no indication for emergent surgery or inpatient Tx. It is understood by the patient/guardian that if the Sx's persist or worsen they need to return immediately for re-evaluation. ED course: VSS. Patient reports being evaluated in the past for seizure disorder but not prescribed seizure medications. Patient reports symptoms markedly improved. Will discharge to home for continued monitoring. 03/05 14:30 Order name: Basic Metabolic Panel; Complete Time: 15:57 03/05 15:57 Interpretation: Normal except: K 3.4; CO2 20; ANION GAP 17.4; GLUC 135. 03/05 14:30 Order name: CBC with Diff; Complete Time: 15:57 03/05 15:58 Interpretation: Normal except: WBC 11.1; RBC 5.46; HGB 15.7; HCT 47.5; MPV 7.3. 03/05 14:30 Order name: LFT's; Complete Time: 15:57 03/05 16:20 Interpretation: Normal except: AST 12; GLOB 4.0; A/G 1.0. 03/05 14:30 Order name: Magnesium; Complete Time: 15:57 03/05 14:30 Order name: NT PRO-BNP; Complete Time: 15:57 03/05 14:30 Order name: PT-INR; Complete Time: 15:57 cp 03/05 14:30 Order name: Troponin HS; Complete Time: 15:57 cp 03/05 14:30 Order name: XRAY Chest (1 view); Complete Time: 16:10 cp 03/05 14:32 Order name: ETOH Level; Complete Time: 15:57 cp 03/05 14:32 Order name: UDS; Complete Time: 18:23 cp 03/05 18:24 Interpretation: Normal except: OPI POSITIVE. cp 03/05 14:32 Order name: Urine Microscopic Only; Complete Time: 18:23 cp 03/05 16:11 Order name: ABG; Complete Time: 18:01 cp 03/05 16:43 Order name: CT Aorta for Dissection; Complete Time: 18:01 cp 03/05 18:02 Order name: Urine Dipstick-Ancillary; Complete Time: 18:09 EDMS 03/05 14:30 Order name: EKG; Complete Time: 14:30 cp 03/05 14:30 Order name: Cardiac monitoring; Complete Time: 14:33 cp 03/05 14:30 Order name: EKG - Nurse/Tech; Complete Time: 14:33 cp 03/05 14:30 Order name: IV Saline Lock; Complete Time: 14:36 cp 03/05 19:27 Order name: EKG; Complete Time: 19:27 cp 03/05 14:30 Order name: Labs collected and sent; Complete Time: 14:36 cp 03/05 14:30 Order name: O2 Per Protocol; Complete Time: 14:35 cp 03/05 14:30 Order name: O2 Sat Monitoring; Complete Time: 14:35 cp 03/05 14:32 Order name: Urine Dipstick-Ancillary (obtain specimen); Complete Time: 19:21 cp 03/05 19:27 Order name: EKG - Nurse/Tech; Complete Time: 19:48 cp EC:34 Rate is 133 beats/min. Rhythm is regular. SC interval is normal. QRS interval is cp normal. QT interval is normal. T waves are Inverted in lead aVR. Interpreted by me. Reviewed by me. 19:45 Rate is 70 beats/min. Rhythm is regular. SC interval is normal. QRS interval is normal. cp QT interval is normal. T waves are Inverted in leads aVL, aVR. Interpreted by me. Reviewed by me. Administered Medications: 14:50 Drug: morphine 4 mg Route: IVP; Infused Over: 4 mins; Site: left antecubital; jd3 20:15 Follow up: Response: No adverse reaction aa9 14:50 Drug: Zofran (Ondansetron) 4 mg Route: IVP; Site: left antecubital; jd3 20:15 Follow up: Response: No adverse reaction aa9 14:50 Drug: Xopenex (levalbuterol) (3) 1.25 mg Route: Inhalation; jd3 15:14 Follow up: Response: No adverse reaction bm7 15:49 Drug: morphine 4 mg Route: IVP; Infused Over: 4 mins; Site: left antecubital; jd3 20:15 Follow up: Response: No adverse reaction aa9 15:49 Drug: SOLU-Medrol (methylPrednisoLONE) 125 mg Route: IVP; Site: left antecubital; jd3 20:14 Follow up: Response: No adverse reaction aa9 16:26 Drug: NS 0.9% 1000 ml Route: IV; Rate: 1 bolus; Site: left antecubital; jd3 20:14 Follow up: Response: No adverse reaction; IV Status: Completed infusion; IV Intake: aa9 1000ml 16:26 Drug: Magnesium Sulfate 1 grams Route: IVPB; Infused Over: 1 hrs; Site: left [facility] antecubital; 20:14 Follow up: Response: No adverse reaction; IV Status: Completed infusion aa9 17:00 Drug: Ativan (LORazepam) 1 mg Route: IVP; Site: left antecubital; as6 19:19 Follow up: Response: No adverse reaction; RASS: Alert and Calm (0) as6 18:14 Drug: Potassium Effervescent Tablet 25 mEq Route: PO; as6 19:17 Follow up: Response: No adverse reaction as6 18:14 Drug: ProTONIX (pantoprazole) 40 mg Route: IVP; Site: left antecubital; as6 19:17 Follow up: Response: No adverse reaction as6 18:14 Drug: GI Cocktail without - (Maalox Suspension 30 ml, Lidocaine Liquid 2 % 15 as6 ml) Route: PO; 19:17 Follow up: Response: No adverse reaction as6 Disposition Summary: 03/05/22 19:47 Discharge Ordered Location: Home cp Problem: an ongoing problem cp Symptoms: have improved cp Condition: Stable cp Diagnosis - Anxiety disorder, unspecified cp - Chest pain, unspecified cp - Abdominal pain, unspecified cp Followup: cp - With: Private Physician - When: 2 - 3 days - Reason: Recheck today's complaints Discharge Instructions: - Discharge Summary Sheet cp - Abdominal Pain, Adult cp - Panic Attack cp - Nonspecific Chest Pain, Adult cp - Potassium Content of Foods cp - Hypomagnesemia cp - Managing Anxiety, Adult cp Forms: - Medication Reconciliation Form cp - Thank You Letter cp - Antibiotic Education cp - Prescription Opioid Use cp Signatures: Dispatcher [employer] EDMS Rei Kong PA PA cp Davies, Jonathon RN RN jd3 Jose Alejandro Alexandra RN RN as6 Vernell Montero MD MD sd2 Luana Dorsey RN bm7 Jeni Fink RN aa9 Corrections: (The following items were deleted from the chart) 19:24 19:23 This 61 yrs old Female presents to ER via EMS with complaints of Chest Pain, cp Abdominal Pain. cp 19:49 14:32 [place] ordered. cp as6
[2022-03-05 20:24] VITALS: TEMP 98
[2022-03-05 20:32] VITALS: BP 147/92; O2SAT 98
--- NOTE | 2022-03-06 09:26 | EKG ---
Test Date: 2022-03-05 Test Time: 19:45:50 Principal Engineer: TIMBO MEASUREMENT RESULTS: Intervals: Rate: 70 OR: 168 QRSD: 82 QT: 390 QTc: 421 [place]: P: 84 OR: 168 QRS: 19 T: 79 INTERPRETIVE STATEMENTS: Sinus rhythm with premature atrial complexes Otherwise normal ECG Compared to ECG 03/05/2022 14:30:39 Atrial premature complex(es) now present Sinus tachycardia no longer present ST (T wave) deviation no longer present Electronically Signed On 03-06-22 09:24:43 CDT by Tato Mendez
--- NOTE | 2022-03-06 09:27 | EKG ---
Test Date: 2022-03-05 Test Time: 14:30:39 Alternative Energy Technician: MB MEASUREMENT RESULTS: Intervals: Rate: 133 [place]: 130 QRSD: 72 QT: 312 QTc: 464 [place]: P: 84 [place]: 130 QRS: -4 T: 72 INTERPRETIVE STATEMENTS: Poor data quality, interpretation may be adversely affected Sinus tachycardia Nonspecific ST and T wave abnormality Abnormal ECG Compared to ECG 10/14/2021 11:05:44 ST (T wave) deviation now present Sinus rhythm no longer present Electronically Signed On 03-06-22 09:24:50 CDT by Tato Mendez
== END 2022-03-05 20:15 | disposition home or self-care (01) ==
LOC: ER 14:21
DX: R07.9 Chest pain, unspecified (principal); F41.9 Anxiety disorder, unspecified; R10.9 Unspecified abdominal pain; I10 Essential (primary) hypertension; Z88.0 Allergy status to penicillin; Z88.1 Allergy status to other antibiotic agents; Z88.6 Allergy status to analgesic agent; Z88.8 Allergy status to other drugs, medicaments and biological substances
CPT/HCPCS: 96365; 93005 ×2; 85025; 80048; 36415; 80320; 83735; 85610; 80076; 84484; 83880; 80307; 71275; 74175; 71045; 82805; 96375; 99291; 99292; 96366; Q9967; C9113; J3475; J7030; J2930; J2405; 81003; 81015

== ENCOUNTER 2023-11-29 20:00 | Emergency (ER) | payer OTHER ==
[2023-11-29] MEDS ORDERED: DIPHENHYDRAMINE 50 MG/ML VIAL ONE (20:18)
[2023-11-29 20:42] LABS: Absolute Basophils 0.1 K/uL (0-0.5); Absolute Eosinophils 0.2 K/uL (0-0.5); Absolute Lymphocytes (CBC) 2.6 K/uL (0.7-4.9); Absolute Monocytes 0.8 K/uL (0.1-1.3); Absolute Neutrophil 5.2 K/uL (1.8-8.0); Basophils % 0.9 % (0-1.3); Eosinophils % 2.2 % (0-4.4); Hematocrit 36.1 % (36.0-45.0); Hemoglobin 11.9 g/dL (12.0-15.0); Lymphocytes % 29.5 % (15.3-44.8); MCH 26.9 pg (27.0-35.0); MCHC 32.9 g/dL (32.0-36.0); MCV 81.8 fL (80-100); Monocytes % 8.5 % (3.3-12.3); Neutrophils % 58.9 % (41.7-73.7); Nucleated Red Blood Cells % 0.1 % (0-0); Platelets 293 thou/uL (152-406); RBC Red Blood Cell Count 4.42 M/uL (3.86-4.86); Red Cell Distribution Width 20.5 % (12.1-15.2)
[2023-11-29 21:45] LABS: Anion Gap 6.6 mEq/L (5.0-15.0); Potassium 4.6 mEq/L (3.5-5.1)
--- NOTE | 2023-11-29 21:48 | RAD REPORT ---
EXAM DESCRIPTION: CT - Head Brain Wo Cont - 11/29/2023 9:09 pm CLINICAL HISTORY: Seizure COMPARISON: 2021 TECHNIQUE: Computed axial tomography of the head was obtained. IV contrast was not requested. All CT scans are performed using dose optimization technique as appropriate and may include automated exposure control or mA/KV adjustment according to patient size. FINDINGS: An intracranial bleed is not seen The ventricles are normal in caliber No significant hypodense areas within the brain visualized No extra-axial fluid collection is noted. 16 millimeter partially calcified extra-axial mass anterior aspect left posterior cranial fossa unchanged consistent with a meningioma Fluid within the sinuses/ mastoids is not seen IMPRESSION: No acute intracranial abnormality is seen If patient's symptoms persist MRI of the brain would be recommended
--- NOTE | 2023-11-29 21:57 | EDPHYS ---
Physician Documentation [facility] Name: Madelaine Leonard Age: 63 yrs Sex: Female : 1960 Arrival Date: 11/29/2023 Time: 20:00 Bed 8 Private MD: ED Physician Zbigniew Pantoja HPI: 11/28 20:13 This 63 yrs old Female presents to ER via EMS with complaints of Tremor - ec2 arms. 20:13 Patient arrives today for evaluation of tremors. As well as anxiety. Patient reports ec2 history of anxiety and tremors, states that she is supposed to be on Ativan for her anxiety however has not had this prescribed. Patient reports no other illnesses, no fevers or chills, nausea or vomiting.. Historical: - Allergies: 20:11 Latex; bm8 20:11 Levofloxacin; bm8 20:11 PENICILLINS; bm8 20:11 Naproxen Sodium; bm8 - Home Meds: 20:52 acetaminophen-codeine 300-60 mg Oral tablet 1 tab every 6 hours for pain [Active]; bm8 albuterol sulfate 0.63 mg/3 mL Inhl Solution for Nebulization 3 mL every 4 hours [Active]; amlodipine 10 mg oral tablet 1 tab once [Active]; atorvastatin 40 mg oral tablet 1 tab once [Active]; 20:58 benzonatate 100 mg oral capsule 1 cap 3 times per day for cough [Active]; carisoprodol bm8 350 mg Oral tablet 3 times per day [Active]; Depakote ER 250 mg Oral Tablet, Extended Release 24 hr 1 tab daily [Active]; Dulcolax (bisacodyl) 10 mg Rectal suppository 1 suppository daily for constipation [Active]; Lasix 40 mg Oral tablet 1 tab daily [Active]; gabapentin 800 mg oral tablet 1 tab 3 times per day [Active]; [place] 10/325 Oral 1 tablet three times a day [Active]; lisinopril 20 mg Oral tablet 1 tabs once [Active]; magnesium 400 mg oral tablet 1 tab once [Active]; metaxalone 800 mg oral tablet 1 tab 4 times per day [Active]; metformin 500 mg Oral tablet 1 tab 2 times per day [Active]; metoprolol succinate 25 mg oral Tablet, Extended Release 24 hr 1 tab once [Active]; oxcarbazepine 300 mg oral tablet 1 tabs tid [Active]; Pepcid AC 10 mg Oral tablet 1 tab once [Active]; phenergan 25 mg IM Q6 Hrs for nausea/vomiting [Active]; propranolol 20 mg Oral tablet 1 tab 3 times per day [Active]; senna 8.6 mg oral capsule 1 cap once [Active]; trazodone 150 mg Oral tablet 1 tab once for major depressive disorder [Active]; Trelegy Ellipta 200-62.5-25 mcg inhalation Blister, With Inhalation Device 2 inhalation daily for maintenance therapy for asthma [Active]; Vitamin D3 125 mcg (5,000 unit) oral tablet 1 tab once [Active]; [place] Inhub 500-50 mcg/dose inhalation Blister, With Inhalation Device 2 inhalation 2 times per day [Active]; - PMHx: 20:11 Anxiety; Chronic pain; Hernia; Fibromyalgia; Hypertensive disorder; Chronic obstructive bm8 lung disease; gerd; 20:52 Depressive disorder; seizures; Sleep apnea; Diabetes mellitus; Congestive heart bm8 failure; high cholesterol; - PSHx: 20:11 Repair of inguinal hernia; Total abdominal hysterectomy; bm8 - Immunization history:: Adult Immunizations up to date. - Infectious Disease History:: Denies. - Social history:: Smoking status: Patient reports the use of cigarette tobacco products, smokes one-half pack cigarettes per day. ROS: 20:13 Constitutional: as per hpi ec2 Exam: 20:13 Constitutional: GEN: NAD Head: atraumatic Eyes: EOMI Ears: External ears are ec2 normal. CV: regular rate LUNGS: no respiratory distress ABD: non-distended SKIN: no evidence of rashes MSK: no evidence of trauma NEURO: moves all extremities equally, no neurodeficit appreciated. Vital Signs: 20:05 BP 93 / 60; Pulse 78; Resp 18; Temp 99; Pulse Ox 97% on R/A; Weight 105.23 kg; Height 5 bm8 ft. 3 in. ; Pain 5/10; 20:50 BP 119 / 63; Pulse 63; Resp 15; Temp 99; Pulse Ox 97% ; Pain 0/10; bm8 22:02 BP 100 / 54; Pulse 67; Resp 16; Temp 98.7; Pulse Ox 97% on 4 lpm NC; Pain 0/10; bm8 20:05 Body Mass Index 41.10 (105.23 kg, 160.02 cm) bm8 20:05 Pain Scale: Adult bm8 20:50 Pain Scale: Adult bm8 22:02 Pain Scale: Adult bm8 [place] Coma Score: 22:02 Eye Response: spontaneous(4). Motor Response: obeys commands(6). Verbal Response: bm8 oriented(5). Total: 15. MDM: 20:08 Patient medically screened. ec2 20:13 Data reviewed: vital signs. ED course: Patient arrives today for evaluation of anxiety ec2 and tremors. Examination markable for well-appearing nontoxic dividual is otherwise in no acute distress with a reassuring examination. EKG independently reviewed and interpreted by me, shows normal sinus rhythm, rate of 72, no acute ST segment elevations, no concerning intervals. Will obtain lab work to evaluate for electrolyte disturbance as well as CT scan of the head to evaluate for intracranial mass.. 21:55 ED course: CT scan of the head shows no acute intracranial abnormality. Will discharge ec2 home. Return precautions given. No medical etiology discovered for patient's tremulousness.. 11/28 20:12 Order name: CBC with Diff; Complete Time: 20:59 ec2 11/28 20:12 Order name: BMP; Complete Time: 21:47 ec2 11/28 20:12 Order name: CT Head Brain wo Cont; Complete Time: 21:55 ec2 11/28 20:12 Order name: EKG - Nurse/Tech; Complete Time: 20:17 ec2 Administered Medications: 20:20 Drug: diphenhydrAMINE IVP 25 mg IVP once Route: IVP; Site: right forearm; bm8 20:52 Follow up: Response: No adverse reaction bm8 Disposition Summary: 11/29/23 21:56 Discharge Ordered Notes: Location: Home ec2 Condition: Stable ec2 Diagnosis - Tremor, unspecified ec2 - Anxiety disorder, unspecified ec2 Followup: ec2 - With: Private Physician - When: - Reason: Re-evaluation by your physician Discharge Instructions: - Discharge Summary Sheet ec2 - Generalized Anxiety Disorder, Adult ec2 Forms: - Medication Reconciliation Form ec2 - Thank You Letter ec2 - Antibiotic Education ec2 - Prescription Opioid Use ec2 - Patient Portal Instructions ec2 - Leadership Thank You Letter ec2 Signatures: Dispatcher [employer] EDMS Pantoja, Zbigniew, MD MD ec2 Ian Wolff, RN RN bm8 Corrections: (The following items were deleted from the chart) 20: 20:13 CBC+H.LAB.BRZ ordered. EDMS EDMS 20: 20:13 BASIC METABOLIC PANEL+C.LAB.BRZ ordered. EDMS EDMS 20:13 20:13 Head Brain Wo Cont+CT.RAD.BRZ ordered. EDMS EDMS 20: 20:13 Patient arrives today for evaluation of tremors.. ec2 ec2
--- NOTE | 2023-11-29 21:57 | ER ---
Nurse's Notes [facility] Name: Madelaine Leonard Age: 63 yrs Sex: Female : 1960 Arrival Date: 11/29/2023 Time: 20:00 Bed 8 Private MD: Diagnosis: Tremor, unspecified;Anxiety disorder, unspecified Presentation: 11/28 20:05 Chief complaint: Patient states: pt states that she went outside to smoke due to an bm8 anxiety attack. after which she started having trouble breathing and tremors started. Coronavirus screen: Client denies travel out of the [place] in the last 14 days. At this time, the client does not indicate any symptoms associated with coronavirus-19. Ebola Screen: Patient negative for fever greater than or equal to 101.5 degrees Fahrenheit, and additional compatible Ebola Virus Disease symptoms Patient denies exposure to infectious person. Patient denies travel to an Ebola-affected area in the 21 days before illness onset. No symptoms or risks identified at this time. Initial Sepsis Screen: Does the patient meet any 2 criteria? No. Patient's initial sepsis screen is negative. Does the patient have a suspected source of infection? No. Patient's initial sepsis screen is negative. Risk Assessment: Do you want to hurt yourself or someone else? Patient reports no desire to harm self or others. Onset of symptoms was November 29, 2023 at 19:00. 20:05 Method Of Arrival: EMS: [facility] bm8 20:05 Acuity: DEV 3 bm8 20:05 Care prior to arrival: Medication(s) given: prior to ems arrival [place] gave bm8 propanolol 20 mg, trazodone 150 mg. EMS gave ativan 2mg IM for severe tremors. Oxygen administered. via nasal cannula. Triage Assessment: 20:11 General: Appears in no apparent distress. uncomfortable, Behavior is calm, cooperative, bm8 appropriate for age. Pain: Complains of pain in generalized pain. EENT: No deficits noted. No signs and/or symptoms were reported regarding the EENT system. Neuro: Level of Consciousness is awake, alert, obeys commands, Oriented to person, place, time, situation, Appropriate for age Job Printer are equal bilaterally Moves all extremities. Full function Reports severe tremors. Cardiovascular: Reports chest pain, shortness of breath, Heart tones S1 S2 present Capillary refill < 3 seconds Patient's skin is warm and dry. Respiratory: Airway is patent Respiratory effort is even, unlabored, Respiratory pattern is regular, symmetrical, on 4 l NC Breath sounds are clear bilaterally. GI: Abdomen is round distended, pt has obvious hernia above umbilicus Bowel sounds present X 4 quads. Reports lower abdominal pain, upper abdominal pain. : No deficits noted. No signs and/or symptoms were reported regarding the genitourinary system. Derm: No deficits noted. No signs and/or symptoms reported regarding the dermatologic system. Musculoskeletal: Capillary refill < 3 seconds, Range of motion: intact in all extremities. Historical: - Allergies: 20:11 Latex; bm8 20:11 Levofloxacin; bm8 20:11 PENICILLINS; bm8 20:11 Naproxen Sodium; bm8 - Home Meds: 20:52 acetaminophen-codeine 300-60 mg Oral tablet 1 tab every 6 hours for pain [Active]; bm8 albuterol sulfate 0.63 mg/3 mL Inhl Solution for Nebulization 3 mL every 4 hours [Active]; amlodipine 10 mg oral tablet 1 tab once [Active]; atorvastatin 40 mg oral tablet 1 tab once [Active]; 20:58 benzonatate 100 mg oral capsule 1 cap 3 times per day for cough [Active]; carisoprodol bm8 350 mg Oral tablet 3 times per day [Active]; Depakote ER 250 mg Oral Tablet, Extended Release 24 hr 1 tab daily [Active]; Dulcolax (bisacodyl) 10 mg Rectal suppository 1 suppository daily for constipation [Active]; Lasix 40 mg Oral tablet 1 tab daily [Active]; gabapentin 800 mg oral tablet 1 tab 3 times per day [Active]; [place] 10/325 Oral 1 tablet three times a day [Active]; lisinopril 20 mg Oral tablet 1 tabs once [Active]; magnesium 400 mg oral tablet 1 tab once [Active]; metaxalone 800 mg oral tablet 1 tab 4 times per day [Active]; metformin 500 mg Oral tablet 1 tab 2 times per day [Active]; metoprolol succinate 25 mg oral Tablet, Extended Release 24 hr 1 tab once [Active]; oxcarbazepine 300 mg oral tablet 1 tabs tid [Active]; Pepcid AC 10 mg Oral tablet 1 tab once [Active]; phenergan 25 mg IM Q6 Hrs for nausea/vomiting [Active]; propranolol 20 mg Oral tablet 1 tab 3 times per day [Active]; senna 8.6 mg oral capsule 1 cap once [Active]; trazodone 150 mg Oral tablet 1 tab once for major depressive disorder [Active]; Trelegy Ellipta 200-62.5-25 mcg inhalation Blister, With Inhalation Device 2 inhalation daily for maintenance therapy for asthma [Active]; Vitamin D3 125 mcg (5,000 unit) oral tablet 1 tab once [Active]; Wixela Inhub 500-50 mcg/dose inhalation Blister, With Inhalation Device 2 inhalation 2 times per day [Active]; - PMHx: 20:11 Anxiety; Chronic pain; Hernia; Fibromyalgia; Hypertensive disorder; Chronic obstructive bm8 lung disease; gerd; 20:52 Depressive disorder; seizures; Sleep apnea; Diabetes mellitus; Congestive heart bm8 failure; high cholesterol; - PSHx: 20:11 Repair of inguinal hernia; Total abdominal hysterectomy; bm8 - Immunization history:: Adult Immunizations up to date. - Infectious Disease History:: Denies. - Social history:: Smoking status: Patient reports the use of cigarette tobacco products, smokes one-half pack cigarettes per day. Screenin:[address] [facility] ED Fall Risk Assessment (Adult) History of falling in the last 3 months, bm8 including since admission No falls in past 3 months (0 pts) Confusion or Disorientation No (0 pts) Intoxicated or Sedated No (0 pts) Impaired Gait Yes (1 pt) Mobility Assist Device Used No (0 pt) Altered Elimination No (0 pt) Score/Fall Risk Level 0 - 2 = Low Risk Oriented to surroundings, Maintained a safe environment, Educated pt \T\ family on fall prevention, incl call for assistance when getting out of bed. Abuse screen: Denies threats or abuse. Nutritional screening: No deficits noted. Tuberculosis screening: No symptoms or risk factors identified. Assessment: 20:15 Reassessment: see traige assessment. bm8 20:50 Reassessment: Patient appears in no apparent distress at this time. Patient and/or bm8 family updated on plan of care and expected duration. Pain level reassessed. Patient is alert, oriented x 3, equal unlabored respirations, skin warm/dry/pink. pt is resting with eyes closed breathing is even unlabored at this time. no evidence of tremors noted Patient states symptoms have improved. 22:02 Reassessment: Patient appears in no apparent distress at this time. No changes from bm8 previously documented assessment. Patient and/or family updated on plan of care and expected duration. Pain level reassessed. Patient is alert, oriented x 3, equal unlabored respirations, skin warm/dry/pink. Patient denies pain at this time. Patient states feeling better. Patient states symptoms have improved. Vital Signs: 20:05 BP 93 / 60; Pulse 78; Resp 18; Temp 99; Pulse Ox 97% on R/A; Weight 105.23 kg; Height 5 bm8 ft. 3 in. ; Pain 5/10; 20:50 BP 119 / 63; Pulse 63; Resp 15; Temp 99; Pulse Ox 97% ; Pain 0/10; bm8 22:02 BP 100 / 54; Pulse 67; Resp 16; Temp 98.7; Pulse Ox 97% on 4 lpm NC; Pain 0/10; bm8 20:05 Body Mass Index 41.10 (105.23 kg, 160.02 cm) bm8 20:05 Pain Scale: Adult bm8 20:50 Pain Scale: Adult bm8 22:02 Pain Scale: Adult bm8 [place] Coma Score: 22:02 Eye Response: spontaneous(4). Motor Response: obeys commands(6). Verbal Response: bm8 oriented(5). Total: 15. ED Course: 20:02 Patient arrived in ED. km8 20:05 Ian Wolff RN is Primary Nurse. bm8 20:06 Zbigniew Pantoja MD is Attending Physician. ec2 20:07 Triage completed. bm8 20:11 Arm band placed on left wrist. EKG completed in triage. Results shown to MD. bm8 20:15 Patient has correct armband on for positive identification. Bed in low position. Call bm8 light in reach. Side rails up X2. Seizure precautions initiated. athletic monitor on. Pulse ox on. NIBP on. Door closed. Noise minimized. Warm blanket given. Verbal reassurance given. 20:15 Inserted saline lock: 22 gauge in right forearm, using aseptic technique. Blood bm8 collected. Oxygen administration via nasal cannula \T\ 4L/min Response to oxygen therapy: symptoms improved. 20:20 BMP Sent. km8 20:20 CBC with Diff Sent. [facility] 20:20 Initial lab(s) drawn, by ED staff, sent to lab. [facility] 20:50 No provider procedures requiring assistance completed. [facility] 21:10 CT Head Brain wo Cont In Process Unspecified. EDMS 22:02 transfer transportation to receiving facility. Awaiting: pt transportation back to [address] 22:02 Provided Education on: post er care. [facility] Administered Medications: 20:20 Drug: diphenhydrAMINE IVP 25 mg IVP once Route: IVP; Site: right forearm; [facility] 20:52 Follow up: Response: No adverse reaction [facility] Medication: 20:15 VIS not applicable for this client. [facility] Outcome: 21:56 Discharge ordered by . 2 22:[address] Report called to MAUREEN Johnson [facility] 22:02 Condition: stable 22:02 Discharge instructions given to patient, Instructed on discharge instructions, follow up and referral plans. Demonstrated understanding of instructions, follow-up care, medications, 23:24 Patient left the ED. jb4 Signatures: Dispatcher [employer] Darryl Verdin, RN RN jb4 Zbigniew Pantoja MD MD ec2 Mirian Quintero, RN RN km8 Ian Wolff, RN RN 8
[2023-11-30 08:41] VITALS: BP 100/54; TEMP 98.7; O2SAT 97
== END 2023-11-29 23:24 | disposition home or self-care (01) ==
LOC: ER 20:00
DX: R25.1 Tremor, unspecified (principal); F41.9 Anxiety disorder, unspecified; E11.9 Type 2 diabetes mellitus without complications; I10 Essential (primary) hypertension; I50.9 Heart failure, unspecified; J44.9 Chronic obstructive pulmonary disease, unspecified; F17.210 Nicotine dependence, cigarettes, uncomplicated; Z88.0 Allergy status to penicillin; Z88.1 Allergy status to other antibiotic agents; Z88.5 Allergy status to narcotic agent; Z91.040 Latex allergy status
CPT/HCPCS: 85025; 80048; 36415; 70450; 96374; 99285; J1200; 93005

== ENCOUNTER 2024-09-26 20:21 | Emergency (ER) | payer OTHER ==
[2024-09-26] MEDS ORDERED: ONDANSETRON 4 MG/2 ML VIAL ONE (21:23)
[2024-09-26] MEDS ORDERED: FAMOTIDINE 20 MG/2 ML VIAL IV ONE (21:24)
[2024-09-26] MEDS ORDERED: NA CHLORIDE 0.9% 1,000 ML ONE (21:24)
[2024-09-26] MEDS ORDERED: MORPHINE 4 MG/ML SYR ONE (21:24)
[2024-09-26 21:29] LABS: Specific Gravity 1.029 (1.005-1.030); Sqamous Epithelial <5 /HPF (None Seen); Urine Bacteria None Seen /HPF (<20); Urine Bilirubin NEGATIVE (Negative); Urine Blood Negative (Negative); Urine Clarity Extremely Turbid (Clear); Urine Color Light-Yellow (Yellow); Urine Crystals Unidentified Few /HPF (None Seen); Urine Culture Reflex Order REFLEXED; Urine Glucose 4+ (Over) (Negative); Urine Ketones NEGATIVE (Negative); Urine Microscopic Reflex YN ORDER UMIC; Urine Nitrite NEGATIVE (Negative); Urine Protein TRACE (Negative); Urine Urobilinogen Normal (Normal); Urine WBC Clump Occasional /HPF (None Seen); Urine Yeast (Budding) Many /HPF (None Seen)
[2024-09-26 21:33] LABS: Absolute Basophils 0.1 K/uL (0-0.5); Absolute Eosinophils 0.1 K/uL (0-0.5); Absolute Lymphocytes (CBC) 2.7 K/uL (0.7-4.9); Absolute Monocytes 0.9 K/uL (0.1-1.3); Absolute Neutrophil 9.1 K/uL (1.8-8.0); Basophils % 0.7 % (0-1.3); Eosinophils % 0.5 % (0-4.4); Hematocrit 37.9 % (36.0-45.0); Lymphocytes % 21.1 % (15.3-44.8); MCH 26.3 pg (27.0-35.0); MCHC 31.6 g/dL (32.0-36.0); MPV 7.4 fL (7.6-11.3); Monocytes % 7.1 % (3.3-12.3); Neutrophils % 70.6 % (41.7-73.7); Platelets 328 thou/uL (152-406); RBC Red Blood Cell Count 4.57 M/uL (3.86-4.86); Red Cell Distribution Width 15.4 % (12.1-15.2)
[2024-09-26 21:46] LABS: ALT/SGPT 22 U/L (13-56); Albumin 3.1 g/dL (3.4-5.0); Albumin/Globulin Ratio 0.8 (1.1-1.8); Alkaline Phosphatase 86 U/L (45-117); Anion Gap 5.8 mEq/L (5.0-15.0); BUN Blood Urea Nitrogen 13 mg/dL (7-18); Bicarbonate 34 mEq/L (21-32); Bilirubin Total 0.2 mg/dL (0.2-1.0); Globulin 3.9 g/dL (2.3-3.5); Glomerular Filtration Rate 99 ml/min (=/>90); Glucose Level 211 mg/dL (74-106); Lipase 28 U/L (13-75); Potassium 3.8 mEq/L (3.5-5.1); Sodium Level 139 mEq/L (136-145)
[2024-09-26 21:53] LABS: AST/SGOT < 10 U/L (15-37)
--- NOTE | 2024-09-26 22:35 | RAD REPORT ---
EXAMINATION: CT ABDOMEN AND PELVIS WITH CONTRAST CLINICAL INDICATION: Abdominal pain TECHNIQUE: CT abdomen and pelvis was performed, after the administration of 100 cc Isovue-300.. Sagit caio and coronal reconstructions were obtained. One or more of the following dose reduction techniques were used: Automated exposure control, adjustment of the mA and kV according to patient si ze, and iterative reconstruction. Unless otherwise specified, incidental findings do not require dedicated imaging follow-up. [id number]. Oral contrast was not given which limits evaluation of bowel and appendix. COMPARISON: FINDINGS: Splenic granulomata. Liver, pancreas and adrenals unremarkable. Small. Renal cysts. Ventral hernia within the mid abdomen contains a portion of transverse colon. No obstruction. The her [place] neck measures approximately 3.6 cm. Post surgical changes involve the small bowel. No obstruction. To the right of midline upper pelvis is an additional ventral hernia containing a portion of small margoth wel. Obstruction. The hernia neck measures 5 cm. Additional very small ventral hernias contains fat. Bilateral inguinal hernia repair. No evidence of diverticulitis. Hysterectomy. No adnexal mass Mild chronic compression deformity T12 vertebral body. : IMPRESSION: Ventral hernia midabdomen containing a portion of transverse colon. No obstruction. Ventral hernia upper pelvis containing a portion of small bowel. No obstruction
[2024-09-26] MEDS ORDERED: DICYCLOMINE HCL 10 MG CAP ONE (23:22)
[2024-09-26] MEDS ORDERED: KETOROLAC 30 MG/ML INJ ONE (23:22)
[2024-09-26] MEDS ORDERED: METOCLOPRAMIDE 5 MG TAB ONE (23:23)
[2024-09-26] MEDS ORDERED: HYDROCODONE/APAP 5/325 MG TAB ONE (23:23)
[2024-09-27] MEDS ORDERED: LORazepam 2 MG/ML VIAL ONE (00:10)
[2024-09-27] MEDS ORDERED: MORPHINE 2 MG/ML SYR ONE (00:11)
--- NOTE | 2024-09-27 01:01 | RAD REPORT ---
PROCEDURE: ULTRASOUND RIGHT UPPER QUADRANT TECHNIQUE: High-resolution sonographic evaluation of the right upper quadrant performed. INDICATION: , , ABD PAIN, Bed Name: 14 COMPARE: None FINDINGS: Liver: Limited views are unremarkable. Gallbladder: No cholelithiasis. Gallbladder wall measures up to 3 mm. No sonographic Cary's sign. Intrahepatic bile ducts: Normal . Extrahepatic bile ducts: Mildly dilated. Common bile duct: Measures up to 9 mm. IMPRESSION: 1. No cholelithiasis or evidence of acute cholecystitis. 2. Mildly dilated common bile duct measuring up to 9 mm. Consider MRCP for further evaluation as cl inically indicated. Electronically signed by: Marin Zarco MD 09/27/2024 12:57 AM [employer] TECHNICIAN Workstation: [id number] [id number] Due to temporary technical issues with the PACS/[employer] reporting system, reports are being sign ed by the in-house radiologist without review as a courtesy to ensure prompt reporting the interpreting rad iologist is fully responsible for the content of the report. Transcribed Date/Time: 09/27/2024 1:00 AM
--- NOTE | 2024-09-27 01:24 | ER ---
Nurse's Notes [facility] Name: Madelaine Leonard Age: 64 yrs Sex: Female : 1960 Arrival Date: 09/26/2024 Time: 20:21 Bed 14 Private MD: Diagnosis: Biliary dilatation, dilated common bile duct, leukocytosis, acute diffuse abdominal pain, Presentation: 09/26 20:23 Chief complaint: EMS states: C/O abdominal pain times 2-3 hours, abnormal BM with vc1 multiple abdominal hernias. Coronavirus screen: Client denies travel out of the [place] in the last 14 days. At this time, the client does not indicate any symptoms associated with coronavirus-19. Ebola Screen: Patient negative for fever greater than or equal to 101.5 degrees Fahrenheit, and additional compatible Ebola Virus Disease symptoms Patient denies exposure to infectious person. Patient denies travel to an Ebola-affected area in the 21 days before illness onset. No symptoms or risks identified at this time. Initial Sepsis Screen: Does the patient meet any 2 criteria? No. Patient's initial sepsis screen is negative. Does the patient have a suspected source of infection? No. Patient's initial sepsis screen is negative. Risk Assessment: Do you want to hurt yourself or someone else? Patient reports no desire to harm self or others. Onset of symptoms was September 24, 2024. 20:23 Method Of Arrival: EMS: [facility] vc1 20:23 Acuity: DEV 3 vc1 Triage Assessment: 20:30 General: Appears uncomfortable, Behavior is calm, cooperative, appropriate for age. rg5 20:30 Pain: Complains of pain in abdomen Pain currently is 10 out of 10 on a pain scale. rg5 Quality of pain is described as aching, Pain began 2 hours ago. EENT: No deficits noted. Neuro: Level of Consciousness is awake, alert, obeys commands, Oriented to person, place, time, situation. Cardiovascular: Denies chest pain. Respiratory: Airway is patent Trachea midline Respiratory effort is even, unlabored, Respiratory pattern is regular, symmetrical. GI: Abd is rigid Reports lower abdominal pain, upper abdominal pain, bloating. : No signs and/or symptoms were reported regarding the genitourinary system. Derm: Skin is intact, Skin is dry, Skin is normal, Skin temperature is warm. Musculoskeletal: Circulation, motion, and sensation intact. Range of motion: intact in all extremities. Historical: - Allergies: 20:26 Levofloxacin; vc1 20:26 Naproxen Sodium; vc1 20:26 PENICILLINS; vc1 20:26 Latex; vc1 - PMHx: 20:26 Anxiety; Hernia; Sleep Apnea; Seizures; Hypertensive disorder; Chronic obstructive lung vc1 disease; Chronic pain; High Cholesterol; Congestive heart failure; depressive disorder; Fibromyalgia; GERD; diabetes mellitus; - PSHx: 20:26 Total abdominal hysterectomy; Repair of inguinal hernia; vc1 - Immunization history:: Client reports having NOT received the Covid vaccine. Pneumococcal vaccine is up to date, Flu vaccine is up to date. - Infectious Disease History:: Denies. - Social history:: Smoking status: Patient denies any tobacco usage or history of. Screenin:28 [facility] ED Fall Risk Assessment (Adult) History of falling in the last 3 months, vc1 including since admission No falls in past 3 months (0 pts) Confusion or Disorientation No (0 pts) Intoxicated or Sedated No (0 pts) Impaired Gait No (0 pts) Mobility Assist Device Used No (0 pt) Altered Elimination No (0 pt) Score/Fall Risk Level 0 - 2 = Low Risk Oriented to surroundings, Maintained a safe environment, Educated pt \T\ family on fall prevention, incl call for assistance when getting out of bed. Abuse screen: Denies threats or abuse. Nutritional screening: No deficits noted. Tuberculosis screening: No symptoms or risk factors identified. Assessment: 20:30 General: Appears uncomfortable, Behavior is calm, cooperative, appropriate for age. rg5 20:30 Pain: Complains of pain in abdomen Pain currently is 10 out of 10 on a pain scale. rg5 Quality of pain is described as aching, Pain began 1 hour ago. Neuro: Level of Consciousness is awake, alert, obeys commands, Oriented to person, place, time. Cardiovascular: Denies chest pain. Respiratory: Airway is patent Trachea midline Respiratory effort is even, unlabored, Respiratory pattern is regular, symmetrical. GI: Abdomen is round obese, Abd is rigid Reports bloating. : No signs and/or symptoms were reported regarding the genitourinary system. EENT: No deficits noted. Derm: Skin is intact, Skin is dry, Skin is normal, Skin temperature is warm. Musculoskeletal: Circulation, motion, and sensation intact. Range of motion: intact in all extremities. 21:25 Reassessment: No changes from previously documented assessment. Patient and/or family rg5 updated on plan of care and expected duration. Pain level reassessed. Patient is alert, oriented x 3, equal unlabored respirations, skin warm/dry/pink. 22:35 Reassessment: No changes from previously documented assessment. Patient and/or family rg5 updated on plan of care and expected duration. Pain level reassessed. 23:39 Reassessment: No changes from previously documented assessment. Patient and/or family rg5 updated on plan of care and expected duration. Pain level reassessed. 09/27 00:29 Reassessment: No changes from previously documented assessment. Patient and/or family rg5 updated on plan of care and expected duration. Pain level reassessed. 01:40 Reassessment: No changes from previously documented assessment. Patient and/or family rg5 updated on plan of care and expected duration. Pain level reassessed. Patient is alert, oriented x 3, equal unlabored respirations, skin warm/dry/pink. Vital Signs: 09/26 20:23 BP 136 / 76; Pulse 92; Resp 18; Temp 98.8; Pulse Ox 93% on R/A; Weight 107.05 kg; vc1 Height 5 ft. 3 in. ; Pain 10/10; 21:47 BP 122 / 56; Pulse 74; Resp 18; Pulse Ox 99% on R/A; rg5 22:30 BP 112 / 94; Pulse 77; Resp 17; Pulse Ox 96% on R/A; Pain 7/10; rg5 23:15 BP 127 / 62; Pulse 79; Resp 17; Pulse Ox 95% on R/A; Pain 8/10; rg5 09/27 00:45 BP 129 / 73; Pulse 75; Resp 18; Temp 98; Pulse Ox 95% on R/A; Pain 7/10; rg5 09/26 20:23 Body Mass Index 41.81 (107.05 kg, 160.02 cm) vc1 09/26 20:23 Pain Scale: Adult vc1 22:30 Pain Scale: Adult rg5 23:15 Pain Scale: Adult rg5 09/27 00:45 Pain Scale: Adult rg5 Jean Coma Score: 06:41 Eye Response: spontaneous(4). Motor Response: obeys commands(6). Verbal Response: sp4 oriented(5). Total: 15. ED Course: 09/26 20:22 Patient arrived in ED. vc1 20:25 Holden Perez MD is Attending Physician. sp4 20:26 Triage completed. vc1 20:27 Arm band placed on right wrist. vc1 20:30 Patient has correct armband on for positive identification. Bed in low position. Call rg5 light in reach. Side rails up X 1. 20:30 Door closed. Noise minimized. Warm blanket given. Verbal reassurance given. rg5 20:30 No provider procedures requiring assistance completed. rg5 20:45 Vern Reddy, MAUREEN is Primary Nurse. rg5 21:00 Inserted saline lock: 20 gauge in right forearm, using aseptic technique. Blood cg4 collected. 22:17 CT Abd/Pelvis - IV Contrast Only In Process Unspecified. EDMS 09/27 00:29 US Abdomen Limited In Process Unspecified. EDMS 01:23 Provided Education on: needs for transfer. rg5 01:25 Patient transferred, IV remains in place. intact, No redness/swelling at site. rg5 Administered Medications: 09/26 21:40 Drug: Famotidine IVP 20 mg IVP once; dilute with 10 mL 0.9% NaCl; give over 2 minutes rg5 Route: IVP; Site: right forearm; 09/27 01:26 Follow up: Response: No adverse reaction rg5 09/26 21:40 Drug: Ondansetron IVP 4 mg IVP once; over 2 minutes Route: IVP; Site: right forearm; rg5 09/27 01:26 Follow up: Response: No adverse reaction 5 09/26 21:40 Drug: morphine IVP or IV 4 mg IVP once over 4 mins Route: IVP; Infused Over: 4 mins; rg5 Site: right forearm; 09/27 01:26 Follow up: Response: No adverse reaction; Pain is decreased rg5 09/26 21:40 Drug: NS 0.9% IV 1000 ml IV at 1 bolus Per protocol; to be given as a bolus over 60 rg5 minutes Route: IV; Rate: 1 bolus; Site: right forearm; 23:00 Follow up: IV Status: Completed infusion; IV Intake: 1000ml rg5 23:43 Drug: Dicyclomine PO 20 mg PO once Route: PO; rg5 09/27 00:15 Follow up: Response: No adverse reaction rg5 09/26 23:43 Drug: HYDROcodone-acetaminophen PO 5 mg-325 mg 2 tabs PO once Route: PO; rg5 09/27 00:15 Follow up: Response: No adverse reaction; Pain is decreased rg5 09/26 23:43 Drug: Ketorolac IVP 30 mg IVP once Route: IVP; Site: left antecubital; rg5 09/27 00:16 Follow up: Response: No adverse reaction; Pain is decreased rg5 09/26 23:44 Drug: MetoCLOPramide PO 10 mg PO once Route: PO; rg5 09/27 00:15 Follow up: Response: No adverse reaction rg5 01:26 Follow up: Response: No adverse reaction rg5 01:26 Follow up: Response: No adverse reaction rg5 00:15 Drug: Ativan IVP 1 mg IVP once Route: IVP; Site: left forearm; rg5 00:16 Follow up: Response: No adverse reaction; Pain is decreased rg5 00:15 Drug: morphine IVP or IV 2 mg IVP once over 4 mins Route: IVP; Infused Over: 4 mins; rg5 Site: right forearm; 00:16 Follow up: Response: No adverse reaction; Pain is decreased rg5 01:35 Drug: Cefepime IVPB 2 grams IVPB at 200 ml/hr once over 30 mins; (mix in NS 100 mL) rg5 Route: IVPB; Rate: 200 ml/hr; Infused Over: 30 mins; Site: right antecubital; 02:00 Follow up: IV Status: Completed infusion; IV Intake: 100ml rg5 Medication: 09/26 20:28 VIS not applicable for this client. vc1 Intake: 23:00 IV: 1000ml; Total: 1000ml. rg5 09/27 02:00 IV: 100ml; Total: 1100ml. rg5 Outcome: 01:24 ER care complete, transfer ordered by MD. garcia 03:37 Transferred by ground EMS to [facility], [facility], [facility] 03:37 Condition: stable 03:37 Instructed on the need for transfer, 03:38 Patient left the ED. rg5 Signatures: Dispatcher [employer] EDGabe Gonzalezessa, RN RN vc1 Holden Perez MD MD sp4 Vern Reddy RN RN rg5 Michelle Villa 4 Corrections: (The following items were deleted from the chart) 09/26 20:27 20:26 Allergies: Latex; vc1 vc1
--- NOTE | 2024-09-27 01:24 | EDPHYS ---
Physician Documentation [facility] Name: Madelaine Leonard Age: 64 yrs Sex: Female : 1960 Arrival Date: 09/26/2024 Time: 20:21 Bed 14 Private MD: ED Physician Holden Perez HPI: 09/26 20:25 This 64 yrs old Female presents to ER via Unassigned with complaints of Gen sp4 complaint . 09/27 06:41 62-year-old female with history of anxiety, hernia, sleep apnea, seizures, sp4 hypertension, COPD also umbilical hernia presents with diffuse abdominal pain. Presents with EMS . Historical: - Allergies: 09/26 20:26 Levofloxacin; vc1 20:26 Naproxen Sodium; vc1 20:26 PENICILLINS; vc1 20:26 Latex; vc1 - PMHx: 20:26 Anxiety; Hernia; Sleep Apnea; Seizures; Hypertensive disorder; Chronic obstructive lung vc1 disease; Chronic pain; High Cholesterol; Congestive heart failure; depressive disorder; Fibromyalgia; GERD; diabetes mellitus; - PSHx: 20:26 Total abdominal hysterectomy; Repair of inguinal hernia; vc1 - Immunization history:: Client reports having NOT received the Covid vaccine. Pneumococcal vaccine is up to date, Flu vaccine is up to date. - Infectious Disease History:: Denies. - Social history:: Smoking status: Patient denies any tobacco usage or history of. ROS: 09/27 06:41 Constitutional: Negative for fever, chills, and weight loss, Positive diffuse sp4 abdominal pain All other systems are negative, Exam: 06:41 Constitutional: This is a well developed, well nourished patient who is awake, alert, sp4 and in no acute distress. Head/Face: Normocephalic, atraumatic. Eyes: Pupils equal round and reactive to light, extra-ocular motions intact. Lids and lashes normal. Conjunctiva and sclera are not injected. Cornea within normal limits. Periorbital areas with no swelling, redness, or edema. ENT: Nares patent. No nasal discharge, no septal abnormalities noted. Tympanic membranes are normal and external auditory canals are clear. Oropharynx with no redness, swelling, or masses, exudates, or evidence of obstruction, uvula midline. Mucous membranes moist. Neck: Trachea midline, no thyromegaly or masses palpated, and no cervical lymphadenopathy. Supple, full range of motion without nuchal rigidity, or vertebral point tenderness. Chest/axilla: Normal chest wall appearance and motion. Nontender with no deformity. No lesions are appreciated. Cardiovascular: Regular rate and rhythm with a normal S1 and S2. No gallops, murmurs, or rubs. Normal PMI, no JVD. No pulse deficits. Respiratory: Lungs have equal breath sounds bilaterally, clear to auscultation and percussion. No rales, rhonchi or wheezes noted. No increased work of breathing, no retractions or nasal flaring. Abdomen/GI: Soft, with normal bowel sounds. No distension or tympany. No guarding or rebound. Positive Diffuse Tenderness with Supraumbilical Hernia withotu signs of obstruction. Back: No spinal tenderness. No costovertebral tenderness. Skin: Warm, dry with normal turgor. Normal color with no rashes, no lesions, and no evidence of cellulitis. MS/ Extremity: Pulses equal, no cyanosis. Neurovascular intact. Full, normal range of motion. Neuro: Awake and alert, GCS 15, oriented to person, place, time, and situation. Cranial nerves II-XII grossly intact. Motor strength 5/5 in all extremities. Sensory grossly intact. Psych: Awake, alert, with orientation to person, place and time. Behavior, mood, and affect are within normal limits Vital Signs: 09/26 20:23 BP 136 / 76; Pulse 92; Resp 18; Temp 98.8; Pulse Ox 93% on R/A; Weight 107.05 kg; vc1 Height 5 ft. 3 in. ; Pain 10/10; 21:47 BP 122 / 56; Pulse 74; Resp 18; Pulse Ox 99% on R/A; rg5 22:30 BP 112 / 94; Pulse 77; Resp 17; Pulse Ox 96% on R/A; Pain 7/10; rg5 23:15 BP 127 / 62; Pulse 79; Resp 17; Pulse Ox 95% on R/A; Pain 8/10; rg5 09/27 00:45 BP 129 / 73; Pulse 75; Resp 18; Temp 98; Pulse Ox 95% on R/A; Pain 7/10; rg5 09/26 20:23 Body Mass Index 41.81 (107.05 kg, 160.02 cm) vc1 09/26 20:23 Pain Scale: Adult vc1 22:30 Pain Scale: Adult rg5 23:15 Pain Scale: Adult rg5 09/27 00:45 Pain Scale: Adult rg5 Jean Coma Score: 06:41 Eye Response: spontaneous(4). Motor Response: obeys commands(6). Verbal Response: sp4 oriented(5). Total: 15. MDM: 09/26 20:33 Medical Screening Exam initiated sp4 09/27 01:17 ED course: PROCEDURE: ULTRASOUND RIGHT UPPER QUADRANT TECHNIQUE: High-resolution sp4 sonographic evaluation of the right upper quadrant performed. INDICATION: , , ABD PAIN, Bed Name: 14 COMPARE: None FINDINGS: Liver: Limited views are unremarkable. Gallbladder: No cholelithiasis. Gallbladder wall measures up to 3 mm. No sonographic Cary's sign. Intrahepatic bile ducts: Normal . Extrahepatic bile ducts: Mildly dilated. Common bile duct: Measures up to 9 mm. IMPRESSION: 1. No cholelithiasis or evidence of acute cholecystitis. 2. Mildly dilated common bile duct measuring up to 9 mm. Consider MRCP for further evaluation as clinically indicated.. 06:47 Data reviewed: vital signs, nurses notes, EMS record, lab test result(s), radiologic sp4 studies, CT scan, ultrasound. ED course: PROCEDURE: ULTRASOUND RIGHT UPPER QUADRANT TECHNIQUE: High-resolution sonographic evaluation of the right upper quadrant performed. INDICATION: , , ABD PAIN, Bed Name: 14 COMPARE: None FINDINGS: Liver: Limited views are unremarkable. Gallbladder: No cholelithiasis. Gallbladder wall measures up to 3 mm. No sonographic Cary's sign. Intrahepatic bile ducts: Normal . Extrahepatic bile ducts: Mildly dilated. Common bile duct: Measures up to 9 mm. IMPRESSION: 1. No cholelithiasis or evidence of acute cholecystitis. 2. Mildly dilated common bile duct measuring up to 9 mm. Consider MRCP for further evaluation as clinically indicated. ED course: COMPARISON: FINDINGS: Splenic granulomata. Liver, pancreas and adrenals unremarkable. Small. Renal cysts. Ventral hernia within the mid abdomen contains a portion of transverse colon. No obstruction. The hernia neck measures approximately 3.6 cm. Post surgical changes involve the small bowel. No obstruction. To the right of midline upper pelvis is an additional ventral hernia containing a portion of small bowel. Obstruction. The hernia neck measures 5 cm. Additional very small ventral hernias contains fat. Bilateral inguinal hernia repair. No evidence of diverticulitis. Hysterectomy. No adnexal mass Mild chronic compression deformity T12 vertebral body. IMPRESSION: Ventral hernia midabdomen containing a portion of transverse colon. No obstruction. Ventral hernia upper pelvis containing a portion of small bowel. No obstruction . 09/26 20:36 Order name: CBC with Diff; Complete Time: 22:49 sp4 09/26 20:36 Order name: CMP; Complete Time: 22:49 sp4 09/26 20:36 Order name: Lipase; Complete Time: 22:50 sp4 09/26 20:36 Order name: Urinalysis w/ reflexes; Complete Time: 22:50 sp4 09/26 21:32 Order name: Urine Culture [facility] 09/26 20:36 Order name: CT Abd/Pelvis - IV Contrast Only; Complete Time: 22:50 sp4 09/26 23:59 Order name: US Abdomen Limited sp4 09/26 20:36 Order name: IV Saline Lock; Complete Time: 21:41 sp4 09/26 20:36 Order name: Labs collected and sent; Complete Time: 21:41 sp4 Administered Medications: 09/26 21:40 Drug: Famotidine IVP 20 mg IVP once; dilute with 10 mL 0.9% NaCl; give over 2 minutes rg5 Route: IVP; Site: right forearm; 09/27 01:26 Follow up: Response: No adverse reaction [facility] 09/26 21:40 Drug: Ondansetron IVP 4 mg IVP once; over 2 minutes Route: IVP; Site: right forearm; rg5 09/27 01:26 Follow up: Response: No adverse reaction [facility] 09/26 21:40 Drug: morphine IVP or IV 4 mg IVP once over 4 mins Route: IVP; Infused Over: 4 mins; rg5 Site: right forearm; 09/27 01:26 Follow up: Response: No adverse reaction; Pain is decreased [facility] 09/26 21:40 Drug: NS 0.9% IV 1000 ml IV at 1 bolus Per protocol; to be given as a bolus over 60 rg5 minutes Route: IV; Rate: 1 bolus; Site: right forearm; 23:00 Follow up: IV Status: Completed infusion; IV Intake: 1000ml rg5 23:43 Drug: Dicyclomine PO 20 mg PO once Route: PO; rg5 09/27 00:15 Follow up: Response: No adverse reaction rg5 09/26 23:43 Drug: HYDROcodone-acetaminophen PO 5 mg-325 mg 2 tabs PO once Route: PO; rg5 09/27 00:15 Follow up: Response: No adverse reaction; Pain is decreased rg5 09/26 23:43 Drug: Ketorolac IVP 30 mg IVP once Route: IVP; Site: left antecubital; rg5 09/27 00:16 Follow up: Response: No adverse reaction; Pain is decreased rg5 09/26 23:44 Drug: MetoCLOPramide PO 10 mg PO once Route: PO; rg5 09/27 00:15 Follow up: Response: No adverse reaction rg5 01:26 Follow up: Response: No adverse reaction rg5 01:26 Follow up: Response: No adverse reaction rg5 00:15 Drug: Ativan IVP 1 mg IVP once Route: IVP; Site: left forearm; rg5 00:16 Follow up: Response: No adverse reaction; Pain is decreased rg5 00:15 Drug: morphine IVP or IV 2 mg IVP once over 4 mins Route: IVP; Infused Over: 4 mins; rg5 Site: right forearm; 00:16 Follow up: Response: No adverse reaction; Pain is decreased rg5 01:35 Drug: Cefepime IVPB 2 grams IVPB at 200 ml/hr once over 30 mins; (mix in NS 100 mL) rg5 Route: IVPB; Rate: 200 ml/hr; Infused Over: 30 mins; Site: right antecubital; 02:00 Follow up: IV Status: Completed infusion; IV Intake: 100ml rg5 Disposition Summary: 09/27/24 01:24 Transfer Ordered Notes: Transfer Location: [facility] sp4 Reason: Higher level of care sp4 Condition: Stable sp4 Problem: new sp4 Symptoms: have improved sp4 Accepting Physician: [facility]'s attending hospitalist(09/27/24 03:38) rg5 Diagnosis - Biliary dilatation, dilated common bile duct, leukocytosis, acute diffuse abdominal sp4 pain, Forms: - Medication Reconciliation Form sp4 - SBAR form sp4 Signatures: Dispatcher [employer] EDMS Sofia Dienro, MAUREEN RN vc1 Holden Perez MD MD sp4 Vern Reddy RN RN rg5 Corrections: (The following items were deleted from the chart) 09/26 20:27 20:26 Allergies: Latex; vc1 vc1 20:36 20:36 CBC+H.LAB.BRZ ordered. EDMS EDMS 20:36 20:36 COMPREHENSIVE METABOLIC PANEL+C.LAB.BRZ ordered. EDMS EDMS 20:36 20:36 LIPASE+C.LAB.BRZ ordered. EDMS EDMS 20:36 20:36 Urinalysis+U.LAB.BRZ ordered. EDMS EDMS 09/27 03:38 01:24 [facility] attending hospitalist sp4 rg5
[2024-09-27] MEDS ORDERED: NA CHLORIDE 0.9% 100 ML ONE (01:31)
[2024-09-27] MEDS ORDERED: CEFEPIME 2 GM VIAL ONE (01:31)
[2024-09-27 04:04] VITALS: O2SAT 95
[2024-09-27 04:06] VITALS: BP 129/73; TEMP 98
== END 2024-09-27 03:38 | disposition short-term general hospital (02) ==
LOC: ER 20:21
DX: K83.8 Other specified diseases of biliary tract (principal); D72.829 Elevated white blood cell count, unspecified; J44.9 Chronic obstructive pulmonary disease, unspecified; I10 Essential (primary) hypertension; I50.9 Heart failure, unspecified; E78.00 Pure hypercholesterolemia, unspecified; E11.9 Type 2 diabetes mellitus without complications; Z28.310 Unvaccinated for COVID-19
CPT/HCPCS: 87088; 85025; 81001; 87086; 36415; 83690; 80053; 74177; 76705; 99285; Q9967; J0692; J2270; J2405; J7030

== ENCOUNTER 2024-10-14 15:28 | Emergency (ER) | payer OTHER ==
--- NOTE | 2024-10-14 16:29 | RAD REPORT ---
EXAMINATION: CT HEAD WITHOUT CONTRAST CT CERVICAL SPINE WITHOUT CONTRAST CLINICAL INDICATION: Head and neck injury status post fall. Head and neck pain TECHNIQUE: Axial CT images from the skull base to the vertex without intravenous contrast. Axial CT i mages through the cervical spine were obtained without intravenous contrast. Sagittal and coronal reformatted images were created from the data set. Coronal and sagittal reformatted images were creat ed from the data set. One or more of the following dose reduction techniques were used: Automated exposure control, adjustment of the mA and/or kV according to patient size, and/or iterative reconstr uction. Unless otherwise specified, incidental findings do not require dedicated imaging follow-up. [id number]. Comparison: 2021 FINDINGS: An intracranial bleed is not seen. Cerebellar tonsillar ectopia Ventricles are normal in caliber. No significant hypodensity within the brain No extra-axial fluid collection. No fluid within the sinuses/mastoids No fracture or dislocation is seen involving the cervical spine. IMPRESSION: No acute intracranial abnormality noted A cervical fracture is not seen. If the patient continues to have symptoms to suggest acute [employer]/spinal pathology then MRI would be rec ommended
--- NOTE | 2024-10-14 16:41 | RAD REPORT ---
Exam:Shoulder Left 2+ Views HISTORY: Left shoulder pain FINDINGS: No fracture or dislocation seen Bones appear osteoporotic.
--- NOTE | 2024-10-14 16:44 | RAD REPORT ---
Exam:Foot Left 3 View CLINICAL HISTORY: Left foot pain FINDINGS: Cortical irregularity third and fourth metatarsal necks. Discrete fracture line is not seen. These co uld represent old or probably less likely acute fractures and should be clinically. Hallux valgus deformity with lateral subluxation first proximal phalanx. Infarct distal tibia.
--- NOTE | 2024-10-14 17:19 | EDPHYS ---
Physician Documentation [facility] Name: Madelaine Leonard Age: 64 yrs Sex: Female : 1960 Arrival Date: 10/14/2024 Time: 15:28 Bed 18 Private MD: ED Physician Blake Franks HPI: 10/14 16:35 This 64 yrs old Female presents to ER via EMS with complaints of Fall Injury. ms3 16:35 64-year-old female past medical history of anxiety, COPD, chronic pain, congestive ms3 heart failure, depression presents to the emergency department via clued EMS status post fall from standing. Patient states she is having left shoulder pain, left foot pain that she rates a 10/10. Patient states her pain is worse with movement of her left foot. She denies any alleviating factors.. Historical: - Allergies: 15:56 Latex; jl7 15:56 Levofloxacin; jl7 15:56 Naproxen Sodium; jl7 15:56 PENICILLINS; jl7 - PMHx: 15:56 Anxiety; Chronic obstructive lung disease; Chronic pain; Congestive heart failure; jl7 depressive disorder; diabetes mellitus; Fibromyalgia; GERD; Hernia; High Cholesterol; Hypertensive disorder; Seizures; Sleep Apnea; - PSHx: 15:56 Repair of inguinal hernia; Total abdominal hysterectomy; jl7 - Immunization history:: Adult Immunizations unknown. - Infectious Disease History:: Denies. - Social history:: Smoking status: Patient denies any tobacco usage or history of. ROS: 16:35 Constitutional: Negative for fever, and chills. Cardiovascular: Negative for chest ms3 pain, and palpitations. Respiratory: Negative for shortness of breath, cough, wheezing, and pleuritic chest pain, Abdomen/GI: Negative for abdominal pain, nausea, vomiting, diarrhea, and constipation, 16:35 MS/extremity: Positive for pain, of the Left foot and left shoulder, Exam: 16:35 Constitutional: This is a well developed, well nourished patient who is awake, alert, ms3 and in no acute distress. Cardiovascular: Regular rate and rhythm with a normal S1 and S2. No gallops, murmurs, or rubs. Normal PMI, no JVD. No pulse deficits. Respiratory: Lungs have equal breath sounds bilaterally, clear to auscultation and percussion. No rales, rhonchi or wheezes noted. No increased work of breathing, no retractions or nasal flaring. Abdomen/GI: Soft, non-tender, with normal bowel sounds. No distension or tympany. No guarding or rebound. No evidence of tenderness throughout. Skin: Warm, dry with normal turgor. Normal color with no rashes, no lesions, and no evidence of cellulitis. 16:35 Musculoskeletal/extremity: Extremities: noted in the left foot: pain, tenderness, noted in the Left shoulder: pain, tenderness, 16:35 Neck: External neck: is normal, no abrasions, no ecchymosis, no swelling, no ms3 tenderness, 17:55 ECG was reviewed by the Attending Physician. ms3 Vital Signs: 15:37 BP 110 / 66; Pulse 70; Resp 15; Temp 98; Pulse Ox 93% 2 lpm ; Weight 104.78 kg; Pain jl7 10/10; 18:02 BP 124 / 65; Pulse 74; Resp 15; Pulse Ox 94% ; jl7 15:37 Pain Scale: Adult jl7 MDM: 15:38 Medical Screening Exam initiated ms3 16:35 Differential diagnosis: abrasion, closed head injury, contusion, fracture, sprain, ms3 strain. 17:19 Data reviewed: vital signs, nurses notes, radiologic studies, and as a result, I will ms3 discharge patient. External Records Reviewed: Outpatient labs: CMP performed at nursing facility shows sodium 134, potassium 4.5, chloride 93, bicarb 29, glucose 193, BUN 36, GFR 29, creatinine 1.95, calcium 9.1, total bilirubin 0.60, AST 16, ALT 17, alk phos 69. Counseling: I had a detailed discussion with the patient and/or guardian regarding the historical points, exam findings, and any diagnostic results supporting the discharge/admit diagnosis, radiology results, the need for outpatient follow up, to return to the emergency department if symptoms worsen or persist or if there are any questions or concerns that arise at home. Special discussion: I discussed with the patient/guardian in detail that at this point there is no indication for admission to the hospital. It is understood, however, that if the symptoms persist or worsen the patient needs to return immediately for re-evaluation. ED course: Discussed imaging with patient. Patient to follow-up with primary care physician at facility in 2 to 3 days. Patient understands and agrees with plan. All questions were answered. Return precautions discussed include worsening symptoms, or any other concerns.. 10/14 15:38 Order name: CT Head C Spine; Complete Time: 16:34 ms3 10/14 15:39 Order name: Foot Left 3 View XRAY; Complete Time: 16:47 ms3 10/14 15:39 Order name: Shoulder Left (2 View) XRAY; Complete Time: 16:42 ms3 EC:55 Rate is 53 beats/min. Rhythm is regular. QRS [place] is Normal. CO interval is normal. QRS ms3 interval is normal. Clinical impression: Sinus bradycardia. Interpreted by me. Reviewed by me. Administered Medications: No medications were administered Disposition Summary: 10/14/24 17:19 Discharge Ordered Notes: Location: Home ms3 Condition: Stable ms3 Diagnosis - Fall on same level, unspecified ms3 - Pain in left shoulder ms3 - Pain in left foot ms3 Followup: ms3 - With: Private Physician - When: 2 - 3 days - Reason: Recheck today's complaints Discharge Instructions: - Discharge Summary Sheet ms3 - Fall Prevention in the Home, Adult ms3 - Musculoskeletal Pain ms3 - Shoulder Pain, [id number] ms3 - Foot Pain ms3 Forms: - Medication Reconciliation Form ms3 - Antibiotic Education ms3 - Prescription Opioid Use ms3 - Patient Portal Instructions ms3 - Leadership Thank You Letter ms3 Signatures: Dispatcher [employer] Samson Barnes RN RN jl7 Blake Franks DO DO ms3 Corrections: (The following items were deleted from the chart) 15:39 15:39 Foot Left 3 View+RAD.RAD.BRZ ordered. EDMS EDMS 15:39 15:39 Shoulder Left 2 View+RAD.RAD.BRZ ordered. EDMS EDMS
--- NOTE | 2024-10-14 17:19 | ER ---
Nurse's Notes [facility] Name: Madelaine Leonard Age: 64 yrs Sex: Female : 1960 Arrival Date: 10/14/2024 Time: 15:28 Bed 18 Private MD: Diagnosis: Fall on same level, unspecified;Pain in left shoulder;Pain in left foot Presentation: 10/14 15:37 Chief complaint: EMS states: Toned out for mechanical fall, fell on left side, c/o left jl7 shoulder pain and left foot pain. Coronavirus screen: At this time, the client does not indicate any symptoms associated with coronavirus-19. Ebola Screen: No symptoms or risks identified at this time. Initial Sepsis Screen: Does the patient meet any 2 criteria? No. Patient's initial sepsis screen is negative. Does the patient have a suspected source of infection? No. Patient's initial sepsis screen is negative. Risk Assessment: Do you want to hurt yourself or someone else? Patient reports no desire to harm self or others. Onset of symptoms was October 14, 2024. 15:37 Method Of Arrival: EMS: [facility] 15:37 Acuity: DEV 3 jl7 Triage Assessment: 15:56 General: Appears in no apparent distress. uncomfortable, Behavior is calm, cooperative, jl7 appropriate for age. Pain: Complains of pain in left clavicle, Left third toenail, Left fourth toenail and Left fifth toenail Pain currently is 10 out of 10 on a pain scale. Neuro: Level of Consciousness is awake, alert, obeys commands, Oriented to person, place, time, situation. Cardiovascular: Patient's skin is warm and dry. Respiratory: Airway is patent Respiratory effort is even, unlabored, Respiratory pattern is regular, symmetrical. Derm: Skin is pink, warm \T\ dry. Historical: - Allergies: 15:56 Latex; jl7 15:56 Levofloxacin; jl7 15:56 Naproxen Sodium; jl7 15:56 PENICILLINS; jl7 - PMHx: 15:56 Anxiety; Chronic obstructive lung disease; Chronic pain; Congestive heart failure; jl7 depressive disorder; diabetes mellitus; Fibromyalgia; GERD; Hernia; High Cholesterol; Hypertensive disorder; Seizures; Sleep Apnea; - PSHx: 15:56 Repair of inguinal hernia; Total abdominal hysterectomy; jl7 - Immunization history:: Adult Immunizations unknown. - Infectious Disease History:: Denies. - Social history:: Smoking status: Patient denies any tobacco usage or history of. Screenin:37 [facility] ED Fall Risk Assessment (Adult) History of falling in the last 3 months, jl7 including since admission Yes- single mechanical fall (1 pt) Confusion or Disorientation No (0 pts) Intoxicated or Sedated No (0 pts) Impaired Gait No (0 pts) Mobility Assist Device Used No (0 pt) Altered Elimination No (0 pt) Score/Fall Risk Level 0 - 2 = Low Risk Oriented to surroundings, Maintained a safe environment. Abuse screen: Denies threats or abuse. Denies injuries from another. Nutritional screening: No deficits noted. Tuberculosis screening: No symptoms or risk factors identified. Assessment: 15:37 General: See triage assessment. jl7 18:02 Reassessment: Sayda at [facility] reports transport will be here in jl7 approx. 30-45 minutes. 18:55 Reassessment: [facility] at bedside to transport pt. jl7 Vital Signs: 15:37 BP 110 / 66; Pulse 70; Resp 15; Temp 98; Pulse Ox 93% 2 lpm ; Weight 104.78 kg; Pain jl7 10/10; 18:02 BP 124 / 65; Pulse 74; Resp 15; Pulse Ox 94% ; jl7 15:37 Pain Scale: Adult jl7 ED Course: 15:37 Patient arrived in ED. ss 15:37 Patient has correct armband on for positive identification. Bed in low position. Call jl7 light in reach. Side rails up X2. Provided Education on: use of call christopher. Pulse ox on. NIBP on. Warm blanket given. 15:38 Blake Franks DO is Attending Physician. ms3 15:56 Triage completed. jl7 15:56 Arm band placed on right wrist. jl7 16:09 CT Head C Spine In Process Unspecified. EDMS 16:24 Foot Left 3 View XRAY In Process Unspecified. EDMS 16:24 Shoulder Left (2 View) XRAY In Process Unspecified. EDMS 17:12 Samson Jones, MAUREEN is Primary Nurse. jl7 17:30 Ortho shoe applied to left foot. jl7 18:00 No provider procedures requiring assistance completed. Patient did not have IV access jl7 during this emergency room visit. Administered Medications: No medications were administered Medication: 15:37 VIS not applicable for this client. jl7 Outcome: 17:19 Discharge ordered by . ms3 18:02 Discharged to home via ambulance, jl7 18:02 Condition: stable 18:02 Discharge instructions given to patient, senior care, Instructed on discharge instructions, follow up and referral plans. Demonstrated understanding of instructions, follow-up care, 18:56 Patient left the ED. [email or web address] Signatures: Dispatcher [employer] EDMS Jennifer Estrada, RN RN Samson Jones RN RN jl7 Blake Franks, DO ms3
[2024-10-14 19:51] VITALS: TEMP 98
[2024-10-14 19:53] VITALS: BP 124/65; O2SAT 94
== END 2024-10-14 18:56 | disposition home or self-care (01) ==
LOC: ER 15:28
DX: M25.512 Pain in left shoulder (principal); M79.672 Pain in left foot; W18.30XA Fall on same level, unspecified, initial encounter
CPT/HCPCS: 70450; 72125

== ENCOUNTER 2024-10-15 03:29 | Inpatient (IN) | payer OTHER ==
[2024-10-15 05:21] LABS: Arterial Blood Carboxyhemoglob 2.5 % (0-1.5); Blood Gas Oxyhemoglobin 89.4 % (94-97); Blood Gas THB 11.8 g/dl (12-18); Blood O2 Saturation 93.5 % (92-98.5)
[2024-10-15 06:11] LABS: Absolute Basophils 0.1 K/uL (0-0.5); Absolute Eosinophils 0.1 K/uL (0-0.5); Absolute Lymphocytes (CBC) 2.2 K/uL (0.7-4.9); Absolute Monocytes 0.8 K/uL (0.1-1.3); Absolute Neutrophil 7.8 K/uL (1.8-8.0); Basophils % 0.5 % (0-1.3); Eosinophils % 0.5 % (0-4.4); Hematocrit 36.9 % (36.0-45.0); Hemoglobin 11.7 g/dL (12.0-15.0); Lymphocytes % 19.7 % (15.3-44.8); MCH 26.2 pg (27.0-35.0); MCHC 31.7 g/dL (32.0-36.0); MCV 82.7 fL (80-100); MPV 7.1 fL (7.6-11.3); Monocytes % 7.6 % (3.3-12.3); Neutrophils % 71.7 % (41.7-73.7); Platelets 360 thou/uL (152-406); RBC Red Blood Cell Count 4.47 M/uL (3.86-4.86); Red Cell Distribution Width 16.2 % (12.1-15.2)
[2024-10-15 06:25] LABS: D-Dimer 0.471 FEUug/mL (0-0.500); PT Prothrombin Time 10.7 SECONDS (10.0-13.0); PTT, Activated Partial Thromb 28.4 SECONDS (24.3-36.9); Protime INR 0.94
[2024-10-15] MEDS ORDERED: ALBUTEROL 2.5 MG/3 ML NEB SOL ONE ×3 (06:34→14:02)
[2024-10-15] MEDS ORDERED: METHYLPREDNISOLONE 125 MG INJ ONE (06:34)
[2024-10-15] MEDS ORDERED: LORazepam 2 MG/ML VIAL ONE (06:35)
[2024-10-15] MEDS ORDERED: FUROSEMIDE 40 MG/4 ML VIAL ONE (06:35)
[2024-10-15 06:40] LABS: ALT/SGPT 19 U/L (13-56); AST/SGOT 12 U/L (15-37); Albumin 3.3 g/dL (3.4-5.0); Albumin/Globulin Ratio 0.9 (1.1-1.8); Alkaline Phosphatase 77 U/L (45-117); BUN Blood Urea Nitrogen 23 mg/dL (7-18); Bicarbonate 39 mEq/L (21-32); Bilirubin Total 0.2 mg/dL (0.2-1.0); Creatine Phosphokinase 152 U/L (26-192); Globulin 3.6 g/dL (2.3-3.5); Glomerular Filtration Rate 98 ml/min (=/>90); Glucose Level 147 mg/dL (74-106); Lipase 34 U/L (13-75); Magnesium 2.1 mg/dL (1.6-2.4); NT PRO-BNP 55 pg/mL (<125); Protein, Total 6.9 g/dL (6.4-8.2); Sodium Level 139 mEq/L (136-145); Troponin High Sensitivity 11.2 pg/mL (<58.9)
--- NOTE | 2024-10-15 06:46 | RAD REPORT ---
EXAM: XR CHEST 1 VIEW HISTORY: 64 years Female dyspnea COMPARISON: None. FINDINGS: LUNGS/PLEURA: Diffuse prominence of the pulmonary vasculature. Question suture line in the right lung . Low lung volumes. CARDIAC/MEDIASTINUM: Mild cardiomegaly UPPER ABDOMEN: No significant abnormality. BONES: No acute abnormality. LINES/TUBES/OTHER: N/A IMPRESSION: Low lung volumes but suspect pulmonary edema. Electronically signed by: Wilfrid Jj MD 10/15/2024 06:37 AM [facility] Due to temporary technical issues with the PACS/Retrace reporting system, reports are being vargas d by the in-house radiologist without review as a courtesy to ensure prompt reporting the interpreting radiologist is fully responsible for the content of the report. Transcribed Date/Time: 10/15/2024 6:46 AM
[2024-10-15 06:48] LABS: Bilirubin Direct < 0.2 mg/dL (0-0.2)
--- NOTE | 2024-10-15 07:14 | ER ---
Nurse's Notes [facility] Name: Madelaine Leonard Age: 64 yrs Sex: Female : 1960 Arrival Date: 10/15/2024 Time: 03:29 Bed 5 Private MD: Diagnosis: Acute respiratory failure with hypoxia;Physical deconditioning, COPD exacerbation, hypoxemia, Presentation: 10/15 03:35 Chief complaint: EMS states: pt from [facility]. pt got up to go to [facility] restroom after taking sleep medication and fell and hit right side of head. she was having some trouble breathing which is normal for her so we put her on a NRB and she is satingin the high 90"S now. Coronavirus screen: At this time, the client does not indicate any symptoms associated with coronavirus-19. Ebola Screen: Patient negative for fever greater than or equal to 101.5 degrees Fahrenheit, and additional compatible Ebola Virus Disease symptoms Patient denies exposure to infectious person. Patient denies travel to an Ebola-affected area in the 21 days before illness onset. No symptoms or risks identified at this time. Initial Sepsis Screen: Does the patient meet any 2 criteria? No. Patient's initial sepsis screen is negative. Does the patient have a suspected source of infection? No. Patient's initial sepsis screen is negative. Risk Assessment: Do you want to hurt yourself or someone else? Patient reports no desire to harm self or others. Onset of symptoms was October 15, 2024 at 03:00. 03:35 Method Of Arrival: EMS: [facility] 8 03:35 Acuity: DEV 3 bm8 Triage Assessment: 03:44 General: Appears in no apparent distress. comfortable, Behavior is calm, cooperative, bm8 appropriate for age. Pain: Complains of pain in forehead, right ear and right muslim Pain currently is 3 out of 10 on a pain scale. EENT: No deficits noted. No signs and/or symptoms were reported regarding the EENT system. Neuro: No deficits noted. Level of Consciousness is alert, obeys commands, Oriented to person, place, time, situation, Appropriate for age. Cardiovascular: Heart tones S1 S2 present Capillary refill < 3 seconds in bilateral fingers Patient's skin is warm and dry. Respiratory: Airway is patent Respiratory effort is even, unlabored, Respiratory pattern is regular, symmetrical, Breath sounds are clear bilaterally. GI: No signs and/or symptoms were reported involving the gastrointestinal system. : No signs and/or symptoms were reported regarding the genitourinary system. Derm: Bruising that is bright red, on face. Musculoskeletal: Reports pain in generalized pain from falling but pt states " I always hurt". Historical: - Allergies: 03:44 Latex; bm8 03:44 Levofloxacin; bm8 03:44 Naproxen Sodium; bm8 03:44 PENICILLINS; bm8 - Home Meds: 03:44 acetaminophen-codeine 300-60 mg Oral tablet 1 tab every 6 hours for Pain [Active]; bm8 albuterol sulfate 0.63 mg/3 mL Inhl Solution for Nebulization 3 mL every 4 hours [Active]; amlodipine 10 mg tablet 1 tab once [Active]; atorvastatin 40 mg Oral tablet 1 tab once [Active]; benzonatate 100 mg Oral capsule 1 cap 3 times per day for Cough [Active]; carisoprodol 350 mg Oral tablet 3 times per day [Active]; Depakote ER 250 mg Oral Tablet 1 tab daily [Active]; Dulcolax (bisacodyl) 10 mg Rectal suppository 1 suppository daily for constipation [Active]; gabapentin 800 mg Oral tablet 1 tab 3 times per day [Active]; Lasix 40 mg Oral tablet 1 tab daily [Active]; lisinopril 20 mg Oral tablet 1 tabs once [Active]; magnesium 400 mg Oral tablet 1 tab once [Active]; metaxalone 800 mg Oral tablet 1 tab 4 times per day [Active]; metformin 500 mg Oral tablet 1 tab 2 times per day [Active]; metoprolol succinate 25 mg Oral Tablet 1 tab once [Active]; [place] 10/325 Oral 1 tab three times a day [Active]; oxcarbazepine 300 mg Oral tablet 1 tabs TID [Active]; Pepcid AC 10 mg Oral tablet 1 tab once [Active]; phenergan 25 mg IM Q6 Hrs for nausea/vomiting [Active]; propranolol 20 mg Oral tablet 1 tab 3 times per day [Active]; senna 8.6 mg Oral capsule 1 cap once [Active]; trazodone 150 mg Oral tablet 1 tab once for Major Depressive Disorder [Active]; Trelegy Ellipta 200-62.5-25 mcg inhalation Blister 2 inhalation daily for Maintenance Therapy for Asthma [Active]; Vitamin D3 125 mcg (5 Oral tablet 1 tab once [Active]; Wixela Inhub 500-50 mcg/dose inhalation Blister 2 inhalation 2 times per day [Active]; - PMHx: 03:44 Anxiety; Chronic obstructive lung disease; Chronic pain; Congestive heart failure; bm8 diabetes mellitus; depressive disorder; GERD; Fibromyalgia; Hernia; High Cholesterol; Hypertensive disorder; Seizures; Sleep Apnea; - PSHx: 03:44 Repair of inguinal hernia; Total abdominal hysterectomy; bm8 - Immunization history:: Adult Immunizations up to date. - Infectious Disease History:: Denies. - Social history:: Smoking status: Patient denies any tobacco usage or history of. - Family history:: not pertinent. Screenin:52 [facility] ED Fall Risk Assessment (Adult) History of falling in the last 3 months, bm8 including since admission Yes- physiologic fall (2 pts) Confusion or Disorientation Yes (5 pts) Intoxicated or Sedated Yes (3 pts) Impaired Gait Yes (1 pt) Mobility Assist Device Used No (0 pt) Altered Elimination No (0 pt) Score/Fall Risk Level 3 or more points = High Risk Oriented to surroundings, Maintained a safe environment, Educated pt \\T\\ family on fall prevention, incl call for assistance when getting out of bed, Assessed \\T\\ reinforced patient's understanding of fall precautions, Hourly rounding (assess needs \\T\\ fall precautionary measures) done, Used ambulatory aids as needed (educated on \\T\\ assisted with), Used gait belt as appropriate Implemented a Fall Risk Plan of Care. Abuse screen: Denies threats or abuse. Nutritional screening: No deficits noted. Tuberculosis screening: No symptoms or risk factors identified. Assessment: 06:52 Reassessment: Patient appears in no apparent distress at this time. Patient and/or bm8 family updated on plan of care and expected duration. Pain level reassessed. pt is currently on Cpap denies pain, Patient denies pain at this time. Patient states feeling better. Patient states symptoms have improved. General: Appears in no apparent distress. comfortable, Behavior is calm, cooperative, appropriate for age. Pain: Denies pain. Neuro: Level of Consciousness is lethargic. Cardiovascular: Heart tones S1 S2 present. Respiratory: Airway is patent Respiratory effort is even, unlabored, Respiratory pattern is regular, symmetrical, on cpap Patient placed CPAP: Breath sounds are clear bilaterally. GI: No signs and/or symptoms were reported involving the gastrointestinal system. : No signs and/or symptoms were reported regarding the genitourinary system. EENT: No signs and/or symptoms were reported regarding the EENT system. 07:26 Reassessment: Patient appears in no apparent distress at this time. Patient and/or ph family updated on plan of care and expected duration. Pain level reassessed. General: Appears in no apparent distress. uncomfortable, obese, Behavior is drowsy. Pain: Unable to use pain scale. Neuro: Level of Consciousness is lethargic. Cardiovascular: Capillary refill < 3 seconds in bilateral fingers Patient's skin is warm and dry. Respiratory: Airway is patent Respiratory effort is relaxed, Respiratory pattern is regular, symmetrical, Patient placed CPAP:. GI: Abdomen is round Abd is soft. : Purewick in place. Derm: Skin is pale. Vital Signs: 03:35 BP 106 / 66; Pulse 86; Resp 18; Temp 97.1; Pulse Ox 94% on 3 lpm NC; Weight 105.5 kg; bm8 Pain 3/10; 06:52 BP 94 / 55; Pulse 69; Resp 22; Temp 97; Pulse Ox 98% on CPAP; Pain 0/10; bm8 07:00 BP 94 / 55; Pulse 71; Resp 17; Pulse Ox 93% on BiPAP; ph 07:30 BP 104 / 70; Pulse 70; Resp 18; Pulse Ox 96% on BiPAP; ph 08:00 BP 101 / 53; Pulse 63; Resp 18; Pulse Ox 96% on BiPAP; ph 08:14 BP 101 / 53; Pulse 75; Resp 14; Pulse Ox 91% on BiPAP; ph 08:30 BP 95 / 56; Pulse 73; Resp 18; Pulse Ox 93% on BiPAP; ph 09:00 BP 117 / 53; Pulse 69; Resp 12; Pulse Ox 92% on BiPAP; ph 09:26 BP 116 / 60; Pulse 74; Resp 18; Pulse Ox 94% on BiPAP; ph 19:00 BP 155 / 61; Pulse 85; Resp 19; Pulse Ox 94% on R/A; al5 20:00 BP 142 / 83; Pulse 80; Resp 19; Pulse Ox 93% ; al5 21:00 BP 136 / 81; Pulse 91; Resp 18; Pulse Ox 93% ; al5 03:35 Pain Scale: Adult bm8 06:52 Pain Scale: Adult bm8 Nelsonia Coma Score: 06:52 Eye Response: to pain(2). Motor Response: obeys commands(6). Verbal Response: bm8 confused(4). Total: 12. 07:08 Eye Response: to pain(2). Motor Response: localizes pain(5). Verbal Response: sp4 confused(4). Total: 11. ED Course: 03:35 Patient arrived in ED. bm8 03:44 Triage completed. bm8 03:44 Arm band placed on right wrist. bm8 04:00 Holden Perez MD is Attending Physician. sp4 05:57 Chest Single View XRAY In Process Unspecified. EDMS 06:30 Ian Wolff, RN is Primary Nurse. bm8 06:52 Patient has correct armband on for positive identification. Placed in gown. Bed in low bm8 position. Call light in reach. Side rails up X2. Client placed on continuous cardiac and pulse oximetry monitoring. NIBP monitoring applied. sales correspondent on. Pulse ox on. NIBP on. Door closed. Noise minimized. Warm blanket given. Pillow given. Verbal reassurance given. Head of bed elevated. 06:52 No provider procedures requiring assistance completed. Initial lab(s) drawn, by ayesha zamora sent to lab. EKG done, by ED staff, reviewed by Holden Perez MD. Inserted saline lock: 20 gauge in right antecubital area, using aseptic technique. Blood collected. Flushed with 10 mL NS. O2 via cpap. 07:13 CT Head C Spine In Process Unspecified. EDMS 07:13 CT Chest Abdomen Pelvis W/O Contrast In Process Unspecified. EDMS 07:13 Genesis Browning MD is Hospitalizing Provider. sp4 08:13 Primary Nurse role handed off by Ian Wolff, RN ph 08:13 Sienna Gallagher, MAUREEN is Primary Nurse. ph 19:21 Primary Nurse role handed off by Sienna Gallagher, MAUREEN rv1 22:10 Karina Stiles, RN is Primary Nurse. al5 22:10 Provided Education on: need for admission. al5 22:11 Patient admitted, IV remains in place. al5 Administered Medications: 05:37 Not Given (Physician Discretion): ativan2 mg IVP once sp4 06:50 Drug: Albuterol Inhalation 2.5 mg Inhalation every 20 minutes x3 Route: Inhalation; bm8 06:50 Drug: Ativan IVP 2 mg IVP once Route: IVP; Site: right antecubital; bm8 06:51 Drug: Furosemide IVP 40 mg IVP once; give over 2 minutes Route: IVP; Site: right bm8 antecubital; 06:51 Drug: MethylPrednisoLONE IVP 125 mg IVP once Route: IVP; Site: right antecubital; bm8 22:10 Not Given (patient taken upstairss): morphineor iv 4 mg IVP once over 4 mins al5 Medication: 06:52 VIS not applicable for this client. bm8 Outcome: 07:14 Decision to Hospitalize by Provider. sp4 22:11 Admitted to Med/surg accompanied by tech, via stretcher, room 223, with chart, al5 22:11 Condition: stable 22:11 Instructed on the need for admit, 22:13 Patient left the ED. al5 Signatures: Dispatcher [employer] EDMS Sienna Gallagher RN RN Joyce Diaz rv1 Holden Perez MD MD sp4 Ian Wolff RN RN bm8 Karina Stiles RN RN al5
--- NOTE | 2024-10-15 07:15 | EDPHYS ---
Physician Documentation [facility] Name: Madelaine Leonard Age: 64 yrs Sex: Female : 1960 Arrival Date: 10/15/2024 Time: 03:29 Bed 5 Private MD: ED Physician Holden Perez HPI: 10/15 04:00 This 64 yrs old Female presents to ER via EMS with complaints of Fall Injury. sp4 07:08 This is 62-year-old female from [facility],, who is full code, past medical sp4 history alcohol dependence, cannabis dependence, diastolic heart failure, COPD, chronic respiratory failure, hypoxia, constipation, oxygen dependent, essential tremor, hyperlipidemia, insomnia, lobar pneumonia, generalized weakness, morbid obesity, seizure disorder, overactive bladder, sleep apnea, type 2 diabetes, anxiety disorder, chronic cough, chronic pain syndrome, cognitive communication deficit, conversion disorder, diverticulitis, essential hypertension, GERD, intermittent explosive disorder, major depressive disorder, nicotine dependence disorder, obstructive sleep apnea, history of tobacco use, osteoarthritis, [facility] from [facility] with complaint of multiple falls also altered mental status and hypoxemia.. Historical: - Allergies: 03:44 Latex; bm8 03:44 Levofloxacin; bm8 03:44 Naproxen Sodium; bm8 03:44 PENICILLINS; bm8 - Home Meds: 03:44 acetaminophen-codeine 300-60 mg Oral tablet 1 tab every 6 hours for Pain [Active]; bm8 albuterol sulfate 0.63 mg/3 mL Inhl Solution for Nebulization 3 mL every 4 hours [Active]; amlodipine 10 mg tablet 1 tab once [Active]; atorvastatin 40 mg Oral tablet 1 tab once [Active]; benzonatate 100 mg Oral capsule 1 cap 3 times per day for Cough [Active]; carisoprodol 350 mg Oral tablet 3 times per day [Active]; Depakote ER 250 mg Oral Tablet 1 tab daily [Active]; Dulcolax (bisacodyl) 10 mg Rectal suppository 1 suppository daily for constipation [Active]; gabapentin 800 mg Oral tablet 1 tab 3 times per day [Active]; Lasix 40 mg Oral tablet 1 tab daily [Active]; lisinopril 20 mg Oral tablet 1 tabs once [Active]; magnesium 400 mg Oral tablet 1 tab once [Active]; metaxalone 800 mg Oral tablet 1 tab 4 times per day [Active]; metformin 500 mg Oral tablet 1 tab 2 times per day [Active]; metoprolol succinate 25 mg Oral Tablet 1 tab once [Active]; [place] 10/325 Oral 1 tab three times a day [Active]; oxcarbazepine 300 mg Oral tablet 1 tabs TID [Active]; Pepcid AC 10 mg Oral tablet 1 tab once [Active]; phenergan 25 mg IM Q6 Hrs for nausea/vomiting [Active]; propranolol 20 mg Oral tablet 1 tab 3 times per day [Active]; senna 8.6 mg Oral capsule 1 cap once [Active]; trazodone 150 mg Oral tablet 1 tab once for Major Depressive Disorder [Active]; Trelegy Ellipta 200-62.5-25 mcg inhalation Blister 2 inhalation daily for Maintenance Therapy for Asthma [Active]; Vitamin D3 125 mcg (5 Oral tablet 1 tab once [Active]; Wixela Inhub 500-50 mcg/dose inhalation Blister 2 inhalation 2 times per day [Active]; - PMHx: 03:44 Anxiety; Chronic obstructive lung disease; Chronic pain; Congestive heart failure; bm8 diabetes mellitus; depressive disorder; GERD; Fibromyalgia; Hernia; High Cholesterol; Hypertensive disorder; Seizures; Sleep Apnea; - PSHx: 03:44 Repair of inguinal hernia; Total abdominal hysterectomy; bm8 - Immunization history:: Adult Immunizations up to date. - Infectious Disease History:: Denies. - Social history:: Smoking status: Patient denies any tobacco usage or history of. - Family history:: not pertinent. ROS: 07:08 Constitutional: Positive for hypoxemia, positive for altered mental status, sp4 07:08 All other systems are negative, 07:08 Unable to obtain ROS due to altered mental status, Exam: 07:08 Constitutional: This is a well developed, morbidly obese female, presents with EMS, sp4 difficult to arouse, appears obtunded Head/Face: Normocephalic, atraumatic. Eyes: Pupils equal round and reactive to light, extra-ocular motions intact. Lids and lashes normal. Conjunctiva and sclera are not injected. Cornea within normal limits. Periorbital areas with no swelling, redness, or edema. ENT: Nares patent. No nasal discharge, no septal abnormalities noted. Tympanic membranes are normal and external auditory canals are clear. Oropharynx with no redness, swelling, or masses, exudates, or evidence of obstruction, uvula midline. Mucous membranes moist. Neck: Trachea midline, no thyromegaly or masses palpated, and no cervical lymphadenopathy. Supple, full range of motion without nuchal rigidity, or vertebral point tenderness. Chest/axilla: Normal chest wall appearance and motion. Nontender with no deformity. No lesions are appreciated. Cardiovascular: Regular rate and rhythm with a normal S1 and S2. No gallops, murmurs, or rubs. Normal PMI, no JVD. No pulse deficits. Respiratory: Lungs have equal breath sounds bilaterally, bilateral expiratory wheezes auscultated. Abdomen/GI: Soft, with normal bowel sounds. No distension or tympany. No guarding or rebound. No evidence of tenderness throughout. Back: No spinal tenderness. No costovertebral tenderness. Skin: Warm, dry with normal turgor. Normal color with no rashes, no lesions, and no evidence of cellulitis. MS/ Extremity: Pulses equal, no cyanosis. Neurovascular intact. Full, normal range of motion. Neuro: Patient is somnolent, difficult to arouse, oriented to person, moves all extremities no sign of lateralizing deficit. 07:14 ECG was reviewed by the Attending Physician. EKG at 0 527 normal sinus rhythm with sp4 sinus arrhythmia rate 71 Vital Signs: 03:35 BP 106 / 66; Pulse 86; Resp 18; Temp 97.1; Pulse Ox 94% on 3 lpm NC; Weight 105.5 kg; bm8 Pain 3/10; 06:52 BP 94 / 55; Pulse 69; Resp 22; Temp 97; Pulse Ox 98% on CPAP; Pain 0/10; bm8 07:00 BP 94 / 55; Pulse 71; Resp 17; Pulse Ox 93% on BiPAP; ph 07:30 BP 104 / 70; Pulse 70; Resp 18; Pulse Ox 96% on BiPAP; ph 08:00 BP 101 / 53; Pulse 63; Resp 18; Pulse Ox 96% on BiPAP; ph 08:14 BP 101 / 53; Pulse 75; Resp 14; Pulse Ox 91% on BiPAP; ph 08:30 BP 95 / 56; Pulse 73; Resp 18; Pulse Ox 93% on BiPAP; ph 09:00 BP 117 / 53; Pulse 69; Resp 12; Pulse Ox 92% on BiPAP; ph 09:26 BP 116 / 60; Pulse 74; Resp 18; Pulse Ox 94% on BiPAP; ph 19:00 BP 155 / 61; Pulse 85; Resp 19; Pulse Ox 94% on R/A; al5 20:00 BP 142 / 83; Pulse 80; Resp 19; Pulse Ox 93% ; al5 21:00 BP 136 / 81; Pulse 91; Resp 18; Pulse Ox 93% ; al5 03:35 Pain Scale: Adult bm8 06:52 Pain Scale: Adult bm8 Jean Coma Score: 06:52 Eye Response: to pain(2). Motor Response: obeys commands(6). Verbal Response: bm8 confused(4). Total: 12. 07:08 Eye Response: to pain(2). Motor Response: localizes pain(5). Verbal Response: sp4 confused(4). Total: 11. MDM: 04:01 Medical Screening Exam initiated sp4 07:14 Differential diagnosis: abrasion, closed head injury, contusion, fracture, laceration, sp4 multiple trauma, sprain, strain. Data reviewed: vital signs, nurses notes, EMS record, [facility] records, old medical records, lab test result(s), EKG, radiologic studies, CT scan, plain films. Consideration of Admission/Observation Patient was admitted/placed on observation. Escalation of care including admission/observation considered. Management of patient was discussed with the following: Hospitalist: Admit team . ED course: Patient stable for admission for management of hypoxemia hypercarbia and respiratory failure.. ED course: Patient is stable on BiPAP.. 20:36 ED course: COMPARISON: 09/25/2024 CT chest and 09/26/2024 CT abdomen and pelvis FINDINGS: sp4 The lack of intravenous contrast limits the sensitivity of this exam for evaluation of solid visceral organs, vascular structures, and retroperitoneum. Chest: LOWER NECK/CHEST WALL: Visualized thyroid gland and soft tissues are normal. LUNGS AND AIRWAYS: Airways are clear. Dependent segmental bibasilar airspace opacities more pronounced on the right. PLEURA: Trace left pleural effusion. No pneumothorax. Hemidiaphragms are normally positioned. MEDIASTINUM AND LYMPH NODES: No mediastinal mass or fluid collection. Normal size mediastinal, hilar, and axillary lymph nodes. THORACIC AORTA: Normal caliber and configuration. PULMONARY ARTERIES: Normal caliber. HEART: Unremarkable. Abdomen/Pelvis LIVER: Normal in size and contour. No focal lesion. GALLBLADDER/BILE DUCTS: No biliary ductal dilatation. PANCREAS: No mass, ductal dilation, or jr-pancreatic fluid. SPLEEN: Normal size. No focal lesion. ADRENALS: Stable 1.4 cm nodule related to the tip of the medial limb of the right adrenal gland. KIDNEYS AND URETERS: Exophytic left upper pole 2.6 cm cyst, stable. Normal size and contour otherwise. No hydronephrosis. GASTROINTESTINAL TRACT: Stomach is non-dilated. Small bowel has normal course and caliber. No colonic wall thickening or pericolonic inflammatory changes. Small bowel anastomotic suture lines again seen RADIOLOGY SERVICES REPORT PERITONEUM: No free fluid. LYMPH NODES: No lymphadenopathy. ABDOMINAL AORTA AND OTHER VESSELS: Normal caliber aorta and IVC. URINARY BLADDER: Normal contour. REPRODUCTIVE ORGANS: No pathologic process. MUSCULOSKELETAL: T12 superior endplate compression deformity, stable. No other acute or suspicious osseous abnormality. ADDITIONAL FINDINGS: None IMPRESSION: Dependent segmental bibasilar airspace opacities more pronounced on the right. Trace left pleural effusion. Findings may relate to developing pneumonia or atelectasis. Other stable incidental findings as above. No other acute or significant abnormalities in the abdomen, or pelvis. . ED course: FINDINGS: No evidence of hydrocephalus, intracranial hemorrhage, or extra-axial fluid collection. The brain is normal in morphology. The calvarium is intact. The visualized paranasal sinuses and mastoid air cells are essentially clear. IMPRESSION: No evidence of acute intracranial abnormality. EXAM: CT of the cervical spine without contrast HISTORY: fall COMPARISON: None TECHNIQUE: Multiple contiguous axial images were obtained in a CT of the cervical spine without contrast. Sagittal and coronal reformats were performed. FINDINGS: The vertebral bodies demonstrate normal height and alignment. No evidence of acute fracture or subluxation.. No degenerative changes are present. No prevertebral soft tissue swelling is seen. The posterior facets are well aligned. Normal alignment of the skull base with the cervical spine is seen. The lung apices are unremarkable. RADIOLOGY SERVICES REPORT IMPRESSION: No evidence of acute osseous abnormality of the cervical spine. . 10/15 05:02 Order name: BMP; Complete Time: 06:57 sp4 10/15 05:02 Order name: Blood Culture Adult (2) sp4 10/15 05:02 Order name: CBC with Diff; Complete Time: 06:57 sp4 10/15 05:02 Order name: CPK; Complete Time: 06:57 sp4 10/15 05:02 Order name: D-Dimer; Complete Time: 06:57 sp4 10/15 05:02 Order name: Hepatic Function; Complete Time: 06:57 sp4 10/15 05:02 Order name: Lipase; Complete Time: 06:57 sp4 10/15 05:02 Order name: Magnesium; Complete Time: 06:57 sp4 10/15 05:02 Order name: NT PRO-BNP; Complete Time: 06:57 sp4 10/15 05:02 Order name: PT-INR; Complete Time: 06:57 sp4 10/15 05:02 Order name: Ptt, Activated; Complete Time: 06:57 sp4 10/15 05:02 Order name: Troponin HS; Complete Time: 06:57 sp4 10/15 05:02 Order name: ABG; Complete Time: 06:57 sp4 10/15 07:53 Order name: CBC with Automated Diff EDMS / 07:53 Order name: CBC with Automated Diff EDMS / 07:53 Order name: Comprehensive Metabolic Panel EDMS / 07:53 Order name: Comprehensive Metabolic Panel EDMS / 07:53 Order name: Protime (+INR) EDMS / 07:53 Order name: Protime (+INR) EDMS / 07:53 Order name: PTT, Activated Partial Thromb EDMS / 07:53 Order name: PTT, Activated Partial Thromb EDMS / 07:53 Order name: Troponin High Sensitivity EDMS / 07:53 Order name: Troponin High Sensitivity; Complete Time: 20:34 EDMS / 07:53 Order name: Troponin High Sensitivity; Complete Time: 20:34 EDMS / 07:59 Order name: ABG Arterial Blood Gas; Complete Time: 20:34 EDMS 10/15 07:59 Order name: Ammonia; Complete Time: 20:34 EDMS 03 05:02 Order name: BIPAP sp4 10/15 05:28 Order name: Chest Single View XRAY; Complete Time: 06:57 sp4 10/15 06:17 Order name: CT Head C Spine; Complete Time: 20:34 sp4 10/15 06:17 Order name: CT Chest Abdomen Pelvis W/O Contrast; Complete Time: 20:34 sp4 10/15 05:02 Order name: Call RT; Complete Time: 06:31 sp4 10/15 07:53 Order name: CONS Physician Consult EDMS 10/15 05:02 Order name: Cardiac monitoring; Complete Time: 06:31 sp4 10/15 05:02 Order name: EKG - Nurse/Tech; Complete Time: 06:31 sp4 10/15 05:02 Order name: Paulson; Complete Time: 06:31 sp4 10/15 05:02 Order name: IV Saline Lock; Complete Time: 06:31 sp4 10/15 05:02 Order name: Labs collected and sent; Complete Time: 06:31 sp4 10/15 05:02 Order name: O2 Per Protocol; Complete Time: 06:31 sp4 10/15 05:02 Order name: O2 Sat Monitoring; Complete Time: 06:31 sp4 EC:20 Rate is 71 beats/min. Rhythm is irregular, Sinus arrythmia. QRS Pey[place]a is Normal. ME sp4 interval is normal. QRS interval is normal. QT interval is normal. No Q waves. T waves are Normal. No ST changes noted. Clinical impression: No evidence of ischemia. Interpreted by me. Reviewed by me. Administered Medications: 05:37 Not Given (Physician Discretion): ativan2 mg IVP once sp4 06:50 Drug: Albuterol Inhalation 2.5 mg Inhalation every 20 minutes x3 Route: Inhalation; bm8 06:50 Drug: Ativan IVP 2 mg IVP once Route: IVP; Site: right antecubital; bm8 06:51 Drug: Furosemide IVP 40 mg IVP once; give over 2 minutes Route: IVP; Site: right bm8 antecubital; 06:51 Drug: MethylPrednisoLONE IVP 125 mg IVP once Route: IVP; Site: right antecubital; bm8 22:10 Not Given (patient taken upstairss): morphineor iv 4 mg IVP once over 4 mins al5 Disposition Summary: 10/15/24 07:14 Hospitalization Ordered Notes: Hospitalization Status: Inpatient Admission sp4 Provider: Genesis Browning sp4 Condition: Serious sp4 Problem: new sp4 Symptoms: have improved sp4 Bed/Room Type: Standard sp4 Location: Telemetry/MedSurg (Inpatient)(10/15/24 18:02) bd Room Assignment: 223(10/15/24 18:02) bd Diagnosis - Acute respiratory failure with hypoxia sp4 - Physical deconditioning, COPD exacerbation, hypoxemia, sp4 Forms: - Medication Reconciliation Form sp4 - SBAR form sp4 - Leadership Thank You Letter sp4 Critical care time excluding procedures: 07:12 Critical care time: Bedside Care: 36 minutes, Consultation: 12 minutes, Family sp4 Intervention: 12 minutes. Total time: 60 minutes Signatures: Dispatcher [employer] EDMS Paula Andre Kelly, RN RN kb3 Holden Perez MD MD sp4 Ian Wolff RN RN bm8 Karina Stiles RN al5 Corrections: (The following items were deleted from the chart) 05:03 05:03 BASIC METABOLIC PANEL+C.LAB.BRZ ordered. EDMS EDMS 05:03 05:03 BLOOD CULTURE*+BA.LAB.BRZ ordered. EDMS EDMS 05:03 05:03 CBC+H.LAB.BRZ ordered. EDMS EDMS 05:03 05:03 CREATINE PHOSPHOKINASE+C.LAB.BRZ ordered. EDMS EDMS 05:03 05:03 D-DIMER+COAG.LAB.BRZ ordered. EDMS EDMS 05:03 05:03 HEPATIC FUNCTION+C.LAB.BRZ ordered. EDMS EDMS 05:03 05:03 LIPASE+C.LAB.BRZ ordered. EDMS EDMS 05:03 05:03 MAGNESIUM+C.LAB.BRZ ordered. EDMS EDMS 05:03 05:03 PROBNP+C.LAB.BRZ ordered. EDMS EDMS 05:03 05:03 PROTIME (+INR)+COAG.LAB.BRZ ordered. EDMS EDMS 05:03 05:03 PTT, ACTIVATED+COAG.LAB.BRZ ordered. EDMS EDMS 05:03 05:03 Troponin High Sensitivity+C.LAB.BRZ ordered. EDMS EDMS 05:03 05:03 Arterial Blood Gas+RC.LAB.BRZ ordered. EDMS EDMS 07:34 07:14 Telemetry/MedSurg (Inpatient) sp4 sp4 07:34 07:14 sp4 sp4 10:41 07:34 Intensive Care Unit sp4 kb3 10:41 07:34 sp4 kb3 18:02 10:41 [facility] ER HOLD kb3 bd 18:02 10:41 ERHOLD- kb3 bd
--- NOTE | 2024-10-15 07:42 | P.HP ---
Certification for Inpatient Patient admitted to: Inpatient With expected LOS: >2 Midnights Patient will require the following post-hospital care: Detention Practitioner: I am a practitioner with admitting privileges, knowledge of patient current condition, hospital course, and medical plan of care. Services: Services provided to patient in accordance with Admission requirements found in Title 42 Section 412.3 of the Code of Federal Regulations Patient History Date of Service: 10/15/24 Reason for admission: Acute respiratory failure History of Present Illness: Patient is a 64-year-old female who presents to the hospital with difficulty arousing. Patient was at [facility], and emergency room charge nurse spoke to nursing staff at [facility]. There is concern that she had taken some street drugs that her roommate was taking which resulted in her altered mental status. Currently, patient is still difficult to arouse. I attempted to talk to [facility] nursing staff myself. Unfortunately, I was on hold for over 10 minutes on 2 different occasions. Will try to get the nursing staff to reach out and see if there is a way that we can even leave a message so the [facility] can call us back. In the ER, she was found to be hypercapnic. She was placed on a BiPAP. She appears to be mostly compensated; however, she remains very lethargic and with her history of obesity hypoventilation syndrome she is at a high risk worsening hypercapnia. Patient's tidal volumes on the BiPAP are under 200. Will try to adjust the BiPAP settings and we will see if we can wake her up a little bit better so her tidal volumes can increase; otherwise, I expect her hypercapnia to worsen. Repeat ABGs pending. At this time, patient will be admitted to the hospital for inpatient hospitalization. Allergies Latex, Natural Rubber Allergy (Verified 09/22/14 15:47) Hives/Rash levofloxacin [From Levaquin] Allergy (Verified 09/22/14 15:37) Itching Penicillins Allergy (Verified 09/22/14 15:37) Hives naproxen sodium [From Aleve] Adverse Reaction (Verified 09/22/14 15:37) Nausea/Vomiting Home Medications: Gabapentin [Neurontin*] 800 mg PO TID 09/22/14 Metaxalone 800 mg PO QID 04/26/18 Atorvastatin Calcium 40 mg PO DAILY 12/29/20 Venlafaxine HCl 37.5 mg PO DAILY WITH BREAKFAST 12/29/20 Fluticasone/Umeclidin/Vilanter [Trelegy Ellipta 100-62.5-25] 1 each IH DAILY #30 blst.w.dev 12/31/20 Amlodipine [Norvasc*] 10 mg PO DAILY tab 01/11/21 Quetiapine Fumarate [Seroquel] 50 mg PO Q12H #60 tablet 10/05/21 Zolpidem Tartrate [Ambien] 10 mg PO BEDTIME PRN #15 tablet 10/05/21 ALPRAZolam [Xanax*] 0.5 mg PO TID PRN #90 tab 02/06/24 Acidophilus/Bulgaricus [Lactinex Packet] 1 each PO AC #90 tab 02/06/24 Bacitracin/Polym Opth [Polysporin Opth Oint*] 1 appl LEFT EYE BID #1 tube 02/06/24 Hydrocodone 10/APAP 325 [Ralph 10/325*] 1 tab PO Q6HP PRN #20 tab 02/06/24 clindamycin HCL [Clindamycin HCl] 150 mg PO TID #30 tab 02/06/24 - Past Medical/Surgical History Diabetic: No -: chronic pain -: COPD -: HTN -: CHF, cardiomegaly -: Fibro myalgia -: alcohol use disorder -: R upper lobectomy -: multiple hernia surgeries -: multiple abdominal surgeries Psychosocial/ Personal History: Lives at home - Family History Father Medical History: Heart disease, Hypertension Notes: Mother Medical History: Heart disease, Lung disease, Cancer Notes: Brother Medical History: Heart disease, Hypertension, Lung disease Notes: - Social History Smoking Status: Former smoker Alcohol use: Yes CD- Drugs: No Caffeine use: Yes Review of Systems 10-point ROS is otherwise unremarkable Physical Examination - Vital Signs Temperature: 98 F Blood Pressure: 140/80 Pulse: 80 Respirations: 18 Pulse Ox (%): 100 - Physical Exam General: Confused, Other (Lethargic but responding with painful stimuli) HEENT: Atraumatic, PERRLA, Mucous membr. moist/pink, Other (BiPAP mask in place), EOMI, Sclerae nonicteric Neck: Supple, 2+ carotid pulse no bruit, No LAD, Other (thick obese neck), Without JVD or thyroid abnormality Respiratory: Diminished, Other (Bilateral breath sounds are diminished) Cardiovascular: Regular rate/rhythm, Normal S1 S2 Gastrointestinal: Normal bowel sounds, Soft and benign, Non-distended, No tenderness Musculoskeletal: No tenderness Integumentary: No rashes Neurological: Other (AMS; not following commands ) Lymphatics: No axilla or inguinal lymphadenopathy - Studies Laboratory Data (last 24 hrs) 10/15/24 10/15/24 10/15/24 05:40 05:40 05:40 WBC 10.90 Hgb 11.7 L Hct 36.9 Plt Count 360 PT 10.7 INR 0.94 APTT 28.4 Sodium 139 Potassium 4.0 BUN 23 H Creatinine 0.69 Glucose 147 H Magnesium 2.1 Total Bilirubin 0.2 AST 12 L ALT 19 Alkaline Phosphatase 77 Lipase 34 Assessment & Plan - Problems (Diagnosis) (1) Respiratory failure with hypoxia and hypercapnia Current Visit: Yes Status: Acute (2) Obesity hypoventilation syndrome Current Visit: Yes Status: Acute (3) Hyponatremia Current Visit: No Status: Acute (4) CHF (congestive heart failure) Current Visit: No Status: Chronic Qualifiers: Heart failure type: unspecified Heart failure chronicity: unspecified Qualified Code(s): I50.9 - Heart failure, unspecified (5) COPD (chronic obstructive pulmonary disease) Current Visit: No Status: Chronic Qualifiers: COPD type: unspecified COPD Qualified Code(s): J44.9 - Chronic obstructive pulmonary disease, unspecified (6) Chronic pain syndrome Current Visit: No Status: Chronic - Plan 1. Acute hypercapnic respiratory failure; most likely related to substance abuse. Will do a urine drug screen. Continue on BiPAP support. Repeat ABGs in 1 hour. Will attempt to contact nursing facility again later and see if we can get a hold of family to address CODE STATUS. Continue with nebs, steroids, and antibiotics at this time. Pulmonary consultation as well. Patient with obesity hypoventilation syndrome which is exacerbating patient's prognosis. Patient will benefit from treatment of her obesity with GLP-1 agonist if she can tolerated 2. Morbid obesity; BMI greater than 40. Will need to be on a GLP-1 agonist for weight loss 3. Metabolic syndrome; strict blood pressure and blood sugar control; check thyroid studies. Statin therapy 4. History of alcohol abuse; monitor LFTs and check ammonia level 5. Chronic pain syndrome with fibromyalgia; holding all pain medications unless she is more awake 6. GI DVT prophylaxis Discharge Plan: Assisted Plan to discharge in: Greater than 2 days - Advance Directives Does patient have a Living Will: No Does patient have a Durable POA for Healthcare: No - Code Status/Comfort Care Code Status Assessed: Yes Code Status: Full Code Critical Care: Yes Time Spent Managing PTS Care (In Minutes): 60
[2024-10-15] MEDS ORDERED: ONDANSETRON 4 MG/2 ML VIAL IV PRN (07:46)
[2024-10-15] MEDS ORDERED: ACETAMINOPHEN 500 MG TAB PO PRN (07:46)
[2024-10-15] MEDS ORDERED: METHYLPREDNISOLONE 40 MG INJ IV ONE (07:57)
[2024-10-15] MEDS: NA CHLORIDE 0.9% 1,000 ML IV SCH (08:00)
--- NOTE | 2024-10-15 08:09 | RAD REPORT ---
EXAM: CT brain without contrast HISTORY: fall COMPARISON: None TECHNIQUE: Multiple contiguous axial images were obtained and a CT of the brain without contrast. Sag ittal and coronal reformats were performed. FINDINGS: No evidence of hydrocephalus, intracranial hemorrhage, or extra-axial fluid collection. The brain is normal in morphology. The calvarium is intact. The visualized paranasal sinuses and mastoid air cells are essentially clear . IMPRESSION: No evidence of acute intracranial abnormality. EXAM: CT of the cervical spine without contrast HISTORY: fall COMPARISON: None TECHNIQUE: Multiple contiguous axial images were obtained in a CT of the cervical spine without contr ast. Sagittal and coronal reformats were performed. FINDINGS: The vertebral bodies demonstrate normal height and alignment. No evidence of acute fracture or subluxation.. No degenerative changes are present. No prevertebral soft tissue swelling is seen. The posterior facets are well aligned. Normal alignment of the skull base with the cervical spine is seen. The lung apices are unremarkable. IMPRESSION: No evidence of acute osseous abnormality of the cervical spine.
--- NOTE | 2024-10-15 08:41 | RAD REPORT ---
EXAM: CT CHEST, ABDOMEN AND PELVIS WITHOUT CONTRAST CLINICAL INDICATION: Female, 64 years old. FALL, TROUBLE BREATHING, ABDOMINAL DISTENTION TECHNIQUE: CT chest, abdomen and pelvis was performed, without IV contrast, as per department protoco l. Axial, sagittal and coronal reconstructions were obtained. One or more of the following dose reduction techniques were used: Automated exposure control, adjustment of the mA and/or kV according to the patient size, and/or iterative reconstruction. Unless otherwise specified, incidental findings do not require dedicated imaging follow-up. COMPARISON: 09/25/2024 CT chest and 09/26/2024 CT abdomen and pelvis FINDINGS: The lack of intravenous contrast limits the sensitivity of this exam for evaluation of solid visceral organs, vascular structures, and retroperitoneum. Chest: LOWER NECK/CHEST WALL: Visualized thyroid gland and soft tissues are normal. LUNGS AND AIRWAYS: Airways are clear. Dependent segmental bibasilar airspace opacities more pronounce d on the right. PLEURA: Trace left pleural effusion. No pneumothorax. Hemidiaphragms are normally positioned. MEDIASTINUM AND LYMPH NODES: No mediastinal mass or fluid collection. Normal size mediastinal, hilar, and axillary lymph nodes. THORACIC AORTA: Normal caliber and configuration. PULMONARY ARTERIES: Normal caliber. HEART: Unremarkable. Abdomen/Pelvis LIVER: Normal in size and contour. No focal lesion. GALLBLADDER/BILE DUCTS: No biliary ductal dilatation. PANCREAS: No mass, ductal dilation, or jr-pancreatic fluid. SPLEEN: Normal size. No focal lesion. ADRENALS: Stable 1.4 cm nodule related to the tip of the medial limb of the right adrenal gland. KIDNEYS AND URETERS: Exophytic left upper pole 2.6 cm cyst, stable. Normal size and contour otherwise . No hydronephrosis. GASTROINTESTINAL TRACT: Stomach is non-dilated. Small bowel has normal course and caliber. No colonic wall thickening or pericolonic inflammatory changes. Small bowel anastomotic suture lines again seen PERITONEUM: No free fluid. LYMPH NODES: No lymphadenopathy. ABDOMINAL AORTA AND OTHER VESSELS: Normal caliber aorta and IVC. URINARY BLADDER: Normal contour. REPRODUCTIVE ORGANS: No pathologic process. MUSCULOSKELETAL: T12 superior endplate compression deformity, stable. No other acute or suspicious os seous abnormality. ADDITIONAL FINDINGS: None IMPRESSION: Dependent segmental bibasilar airspace opacities more pronounced on the right. Trace left pleural eff usion. Findings may relate to developing pneumonia or atelectasis. Other stable incidental findings as above. No other acute or significant abnormalities in the abdomen , or pelvis.
[2024-10-15 10:20] LABS: Arterial Blood Carboxyhemoglob 2.1 % (0-1.5); Blood Gas Oxyhemoglobin 89.7 % (94-97); Blood Gas THB 12.3 g/dl (12-18); Blood O2 Saturation 93.3 % (92-98.5)
--- NOTE | 2024-10-15 11:02 | EKG ---
Test Date: 2024-10-15 Test Time: 05:20:29 Shoe Stainer: CHARO MEASUREMENT RESULTS: Intervals: Rate: 71 WY: 182 QRSD: 98 QT: 390 QTc: 423 [place]: P: 65 WY: 182 QRS: 40 T: 67 INTERPRETIVE STATEMENTS: Normal sinus rhythm with sinus arrhythmia Normal ECG Compared to ECG 02/03/2024 18:05:14 No significant changes Electronically Signed On 10-15-24 11:01:47 PUMP ASSEMBLER by George Domingo
[2024-10-15] MEDS ORDERED: IPRATROPIUM BROM 0.5MG/2.5ML ONE ×2 (12:57→14:02)
[2024-10-15] MEDS: ALBUTEROL 2.5 MG/3 ML NEB SOL NEB SCH (13:00)
[2024-10-15] MEDS: IPRATROPIUM BROM 0.5MG/2.5ML NEB SCH (13:00)
[2024-10-15] MEDS ORDERED: NA CHLORIDE 0.9% 1,000 ML ONE (14:02)
[2024-10-15] MEDS ORDERED: METHYLPREDNISOLONE 40 MG INJ ONE (14:02)
[2024-10-15] MEDS ORDERED: MORPHINE 4 MG/ML SYR ONE ×2 (14:14→17:34)
[2024-10-15] MEDS: MORPHINE 4 MG/ML SYR IV PRN (14:15)
[2024-10-15] MEDS: METHYLPREDNISOLONE 40 MG INJ IV SCH (14:20)
[2024-10-16 00:33] VITALS: BMI 43.1
[2024-10-16] MEDS: ZOLPIDEM TARTRATE 10 MG TABLET PO PRN (00:45)
[2024-10-16] MEDS: OXYCODONE HCL 5 MG TAB PO PRN (00:45)
[2024-10-16 05:19] LABS: Absolute Basophils 0.1 K/uL (0-0.5); Absolute Lymphocytes (CBC) 1.6 K/uL (0.7-4.9); Absolute Monocytes 0.3 K/uL (0.1-1.3); Basophils % 0.5 % (0-1.3); Eosinophils % 0.1 % (0-4.4); Hematocrit 39.4 % (36.0-45.0); Hemoglobin 12.3 g/dL (12.0-15.0); Lymphocytes % 14.6 % (15.3-44.8); MCH 25.3 pg (27.0-35.0); MCHC 31.4 g/dL (32.0-36.0); MCV 80.6 fL (80-100); MPV 7.8 fL (7.6-11.3); Neutrophils % 81.8 % (41.7-73.7); Nucleated Red Blood Cells % 0.1 % (0-0); Platelets 312 thou/uL (152-406); RBC Red Blood Cell Count 4.88 M/uL (3.86-4.86); Red Cell Distribution Width 16.8 % (12.1-15.2)
[2024-10-16 05:23] LABS: PT Prothrombin Time 11.4 SECONDS (10.0-13.0); PTT, Activated Partial Thromb 25.5 SECONDS (24.3-36.9)
[2024-10-16 05:30] LABS: ALT/SGPT 21 U/L (13-56); Albumin 3.2 g/dL (3.4-5.0); Albumin/Globulin Ratio 0.8 (1.1-1.8); Alkaline Phosphatase 82 U/L (45-117); Anion Gap 9.5 mEq/L (5.0-15.0); BUN Blood Urea Nitrogen 17 mg/dL (7-18); Bicarbonate 31 mEq/L (21-32); Bilirubin Total 0.3 mg/dL (0.2-1.0); Globulin 3.8 g/dL (2.3-3.5); Glomerular Filtration Rate 79 ml/min (=/>90); Glucose Level 329 mg/dL (74-106); Potassium 4.5 mEq/L (3.5-5.1); Sodium Level 133 mEq/L (136-145)
[2024-10-16 05:31] LABS: AST/SGOT < 10 U/L (15-37)
--- NOTE | 2024-10-16 09:19 | P.DS ---
Discharge Date: 10/16/24 Disposition: TRANSFER TO SNF Discharge Condition: GOOD Reason for Admission: Acute respiratory failure - Problems (1) Respiratory failure with hypoxia and hypercapnia Current Visit: Yes Status: Acute (2) Obesity hypoventilation syndrome Current Visit: Yes Status: Acute (3) Hyponatremia Current Visit: No Status: Acute (4) CHF (congestive heart failure) Current Visit: No Status: Chronic Qualifiers: Heart failure type: unspecified Heart failure chronicity: unspecified Qualified Code(s): I50.9 - Heart failure, unspecified (5) COPD (chronic obstructive pulmonary disease) Current Visit: No Status: Chronic Qualifiers: COPD type: unspecified COPD Qualified Code(s): J44.9 - Chronic obstructive pulmonary disease, unspecified (6) Chronic pain syndrome Current Visit: No Status: Chronic Brief History of Present Illness: Patient is a 64-year-old female who presents to the hospital with difficulty arousing. Patient was at [facility], and emergency room charge nurse spoke to nursing staff at [facility]. There is concern that she had taken some street drugs that her roommate was taking which resulted in her altered mental status. Currently, patient is still difficult to arouse. I attempted to talk to [facility] nursing staff myself. Unfortunately, I was on hold for over 10 minutes on 2 different occasions. Will try to get the nursing staff to reach out and see if there is a way that we can even leave a message so the custodial can call us back. In the ER, she was found to be hypercapnic. She was placed on a BiPAP. She appears to be mostly compensated; however, she remains very lethargic and with her history of obesity hypoventilation syndrome she is at a high risk worsening hypercapnia. Patient's tidal volumes on the BiPAP are under 200. Will try to adjust the BiPAP settings and we will see if we can wake her up a little bit better so her tidal volumes can increase; otherwise, I expect her hypercapnia to worsen. Repeat ABGs pending. At this time, patient will be admitted to the hospital for inpatient hospitalization. Hospital Course: Started responding much better when she woke up. Her respiratory status improved. Her oxygenation is stable. Currently she is awake and doing well and plan to go back to custodial. Plan to discharge her today with outpatient follow-up. Vital Signs/Physical Exam: Temp Pulse Resp BP Pulse Ox 98.3 F 86 18 163/74 H 92 10/16/24 03:00 10/16/24 03:00 10/16/24 09:08 10/16/24 03:00 10/16/24 09:08 General: Alert, In no apparent distress, Oriented x3 Laboratory Data at Discharge: WBC 11.00 thou/uL (4.3-10.9) H 10/16/24 04:54 Hgb 12.3 g/dL (12.0-15.0) 10/16/24 04:54 Hct 39.4 % (36.0-45.0) 10/16/24 04:54 Plt Count 312 thou/uL (152-406) 10/16/24 04:54 PT 11.4 SECONDS (10.0-13.0) 10/16/24 04:47 INR 1.00 10/16/24 04:47 APTT 25.5 SECONDS (24.3-36.9) 10/16/24 04:47 Sodium 133 mEq/L (136-145) L D 10/16/24 04:54 Potassium 4.5 mEq/L (3.5-5.1) 10/16/24 04:54 BUN 17 mg/dL (7-18) 10/16/24 04:54 Creatinine 0.84 mg/dL (0.55-1.02) 10/16/24 04:54 Glucose 329 mg/dL (74-106) H 10/16/24 04:54 Magnesium 2.1 mg/dL (1.6-2.4) 10/15/24 05:40 Total Bilirubin 0.3 mg/dL (0.2-1.0) 10/16/24 04:54 AST < 10 U/L (15-37) L 10/16/24 04:54 ALT 21 U/L (13-56) 10/16/24 04:54 Alkaline Phosphatase 82 U/L (45-117) 10/16/24 04:54 Lipase 34 U/L (13-75) 10/15/24 05:40 Home Medications: Gabapentin [Neurontin*] 800 mg PO QID 09/22/14 Metaxalone 800 mg PO QID 04/26/18 Atorvastatin Calcium 40 mg PO DAILY 05/19/21 Fluticasone/Umeclidin/Vilanter [Trelegy Ellipta 100-62.5-25] 1 each IH DAILY #30 blst.w.dev 12/31/20 Amlodipine [Norvasc*] 10 mg PO DAILY tab 01/11/21 Zolpidem Tartrate [Ambien] 10 mg PO BEDTIME PRN #15 tablet 10/05/21 ALPRAZolam [Xanax*] 0.5 mg PO TID PRN #90 tab 02/06/24 Acidophilus/Bulgaricus [Lactinex Packet] 1 each PO AC #90 tab 02/06/24 Ipratropium Neb [Atrovent*] 0.5 mg NEB [id number] amp 10/16/24 Ipratropium/Albuterol Sulfate [Iprat-Albut 0.5-3(2.5) mg/3 ml] 3 ml NEB Q6H #60 amp 10/16/24 predniSONE [Deltasone] 20 mg PO BID #20 tab 10/16/24 New Medications: Ipratropium/Albuterol Sulfate [Iprat-Albut 0.5-3(2.5) mg/3 ml] 3 ml NEB Q6H #60 amp predniSONE [Deltasone] 20 mg PO BID #20 tab Physician Discharge Instructions: -DC IV and DC back to custodial -Follow-up with PCP in 1 to 2 weeks -Follow-up with pulmonary in 1 to 2 weeks -Please call Dr. Browning at [phone] if any questions regarding hospital stay -Please call nursing station at [phone] if any nursing or medication questions -Return to the emergency room if symptoms worsen Diet: AHA Activity: Fall precautions Followup: Yoana Selby MD [Primary Care Provider] - Time spent managing pt's care (in minutes): 35
[2024-10-16 09:29] VITALS: TEMP 97.8
[2024-10-16 10:19] VITALS: O2SAT 92
[2024-10-16 12:40] VITALS: BP 160/98
--- NOTE | 2024-10-16 12:43 | P.CNS ---
Date of Consult: 10/16/24 Reason for Consult: COPD exacerbation Chief Complaint: Acute respiratory failure History of Present Illness: Patient is 64 years of age was found unresponsive in a snf apparently she was passing out having shortness of breath and was admitted from the snf and currently awake alert oriented responsive patient does take Wixela at home has a history of sleep apnea lives in a snf apparently has been on here for a year denies any fever chills chest pain or cough Allergies Latex, Natural Rubber Allergy (Verified 09/22/14 15:47) Hives/Rash levofloxacin [From Levaquin] Allergy (Verified 09/22/14 15:37) Itching Penicillins Allergy (Verified 09/22/14 15:37) Hives naproxen sodium [From Aleve] Adverse Reaction (Verified 09/22/14 15:37) Nausea/Vomiting Home Medications: Gabapentin [Neurontin*] 800 mg PO QID 09/22/14 Metaxalone 800 mg PO QID 04/26/18 Atorvastatin Calcium 40 mg PO DAILY 12/29/20 Fluticasone/Umeclidin/Vilanter [Trelegy Ellipta 100-62.5-25] 1 each IH DAILY #30 blst.w.dev 12/31/20 Amlodipine [Norvasc*] 10 mg PO DAILY tab 01/11/21 Zolpidem Tartrate [Ambien] 10 mg PO BEDTIME PRN #15 tablet 10/05/21 ALPRAZolam [Xanax*] 0.5 mg PO TID PRN #90 tab 02/06/24 Acidophilus/Bulgaricus [Lactinex Packet] 1 each PO AC #90 tab 02/06/24 Furosemide [Lasix] 20 mg PO BIDL #60 tab 10/16/24 Ipratropium Neb [Atrovent*] 0.5 mg NEB [id number] amp 10/16/24 Ipratropium/Albuterol Sulfate [Iprat-Albut 0.5-3(2.5) mg/3 ml] 3 ml NEB Q6H #60 amp 10/16/24 Metoprolol Tartrate [Lopressor] 25 mg PO BID #60 tab 10/16/24 Potassium Chloride 10 meq PO DAILY #30 tab 10/16/24 predniSONE [Deltasone] 20 mg PO BID #20 tab 10/16/24 - Past Medical/Surgical History Diabetic: No -: chronic pain -: COPD -: HTN -: CHF, cardiomegaly -: Fibro myalgia -: alcohol use disorder -: R upper lobectomy -: multiple hernia surgeries -: multiple abdominal surgeries Psychosocial/ Personal History: Lives at home - Family History Father Medical History: Heart disease, Hypertension Notes: Mother Medical History: Heart disease, Lung disease, Cancer Notes: Brother Medical History: Heart disease, Hypertension, Lung disease Notes: - Social History Smoking Status: Current every day smoker Alcohol use: No CD- Drugs: Yes Caffeine use: Yes Review of Systems 10-point ROS is otherwise unremarkable General: Weakness Respiratory: Shortness of Breath Physical Examination Temp Pulse Resp BP Pulse Ox 97.8 F 72 18 186/76 H 92 10/16/24 08:00 10/16/24 08:00 10/16/24 09:08 10/16/24 08:00 10/16/24 09:08 General: Alert, In no apparent distress, Oriented x3 HEENT: Atraumatic Neck: Supple Respiratory: Clear to auscultation bilaterally, Diminished Cardiovascular: No edema, Normal pulses, Regular rate/rhythm, Normal S1 S2 - Problems (1) COPD exacerbation Status: Acute Plan: Patient is 64 years of age was found unresponsive she has hypoxic hypercapnic respiratory failure presumed chronic chest CT scan reviewed minimal bilateral lower presumed atelectasis chest x-ray is clear not sure what had happened patient is however stable for discharge agree with trilogy vital signs oxygenation satisfactory to follow-up with me in 2 weeks
== END 2024-10-16 12:02 | DRG 190 ==
LOC: ER 03:29 → ERHOLD 07:46 → 2ND 18:45
PROVIDERS: ADMIT Hospitalist; ATTEND Hospitalist
PROC: 4A033R1 Measurement of Arterial Saturation, Peripheral, Percutaneous Approach (ICD-10-PCS; principal; 2024-10-15)
PROC: 5A09357 Assistance with Respiratory Ventilation, Less than 24 Consecutive Hours, Continuous Positive Airway Pressure (ICD-10-PCS; 2024-10-16)
DX: J44.1 Chronic obstructive pulmonary disease with (acute) exacerbation (principal); J96.01 Acute respiratory failure with hypoxia; J96.02 Acute respiratory failure with hypercapnia; I50.32 Chronic diastolic (congestive) heart failure; Z68.41 Body mass index [BMI] 40.0-44.9, adult; E66.2 Morbid (severe) obesity with alveolar hypoventilation; E87.1 Hypo-osmolality and hyponatremia; I11.0 Hypertensive heart disease with heart failure; M79.7 Fibromyalgia; E88.810 Metabolic syndrome; G89.4 Chronic pain syndrome; E78.00 Pure hypercholesterolemia, unspecified; E11.9 Type 2 diabetes mellitus without complications; K21.9 Gastro-esophageal reflux disease without esophagitis; R29.6 Repeated falls; Z88.0 Allergy status to penicillin; Z88.1 Allergy status to other antibiotic agents; Z91.81 History of falling; Z88.8 Allergy status to other drugs, medicaments and biological substances; Z79.84 Long term (current) use of oral hypoglycemic drugs; Z91.040 Latex allergy status; Z79.899 Other long term (current) drug therapy; Z87.891 Personal history of nicotine dependence; Z90.710 Acquired absence of both cervix and uterus
CPT/HCPCS: 36415; 36600; 70450; 71045; 71250; 72125; 74176; 80048; 80053; 80076; 82140; 82550; 82805; 82947; 83690; 83735; 83880; 84484; 85025; 85379; 85610; 85730; 87040; 93005; 94640; 94660; 94760; 96374; 96375; 99284; 99285; J1940; J2919; J7030; J7613; J7644

== ENCOUNTER 2024-12-08 19:20 | Emergency (ER) | payer OTHER ==
[2024-12-08 20:27] LABS: Specific Gravity 1.012 (1.005-1.030); Sqamous Epithelial <5 /HPF (None Seen); Urine Bacteria <20 /HPF (<20); Urine Bilirubin NEGATIVE (Negative); Urine Blood Negative (Negative); Urine Clarity Turbid (Clear); Urine Color Colorless (Yellow); Urine Glucose NEGATIVE (Negative); Urine Ketones NEGATIVE (Negative); Urine Micro Reflex YN NO BILL MICROSCOPIC; Urine Mucus Slight /HPF (None Seen); Urine Nitrite NEGATIVE (Negative); Urine Protein NEGATIVE (Negative); Urine RBC <5 /HPF (None Seen); Urine Urobilinogen Normal (Normal); Urine WBC <5 /HPF (<5)
[2024-12-08 20:29] LABS: Absolute Basophils 0.1 K/uL (0-0.5); Absolute Lymphocytes (CBC) 2.4 K/uL (0.7-4.9); Absolute Monocytes 0.7 K/uL (0.1-1.3); Absolute Neutrophil 8.3 K/uL (1.8-8.0); Basophils % 0.8 % (0-1.3); Eosinophils % 0.2 % (0-4.4); Hematocrit 40.1 % (36.0-45.0); Hemoglobin 12.8 g/dL (12.0-15.0); Lymphocytes % 20.6 % (15.3-44.8); MCH 25.4 pg (27.0-35.0); MCV 79.4 fL (80-100); MPV 7.6 fL (7.6-11.3); Monocytes % 6.3 % (3.3-12.3); Neutrophils % 72.1 % (41.7-73.7); Nucleated RBC Absolute Count 0.1 (0-0); Nucleated Red Blood Cells % 0.4 % (0-0); Platelets 322 thou/uL (152-406); RBC Red Blood Cell Count 5.06 M/uL (3.86-4.86); Red Cell Distribution Width 18.5 % (12.1-15.2)
[2024-12-08 20:34] LABS: Anion Gap 5.1 mEq/L (5.0-15.0); Potassium 4.1 mEq/L (3.5-5.1)
[2024-12-08 20:37] LABS: Barbiturates NEGATIVE (NEGATIVE); Benzodiazepines POSITIVE (NEGATIVE); Cocaine NEGATIVE (NEGATIVE); METHAMPHETAM NEGATIVE (NEGATIVE); Methadone NEGATIVE (NEGATIVE); Opiates NEGATIVE (NEGATIVE); Phencyclidine NEGATIVE (NEGATIVE); THC Cannibis NEGATIVE (NEGATIVE)
[2024-12-08] MEDS ORDERED: CODEINE 30MG/APAP 300MG TAB ONE (20:43)
--- NOTE | 2024-12-08 21:44 | RAD REPORT ---
EXAM: CT brain without contrast HISTORY: TRAUMA COMPARISON: 10/15/2024 TECHNIQUE: Multiple contiguous axial images were obtained and a CT of the brain without contrast. Sag ittal and coronal reformats were performed. FINDINGS: No evidence of hydrocephalus, intracranial hemorrhage, or extra-axial fluid collection. The brain is normal in morphology. The calvarium is intact. The visualized paranasal sinuses and mastoid air cells are essentially clear . IMPRESSION: No evidence of acute intracranial abnormality. EXAM: CT of the cervical spine without contrast HISTORY: TRAUMA COMPARISON: None TECHNIQUE: Multiple contiguous axial images were obtained in a CT of the cervical spine without contr ast. Sagittal and coronal reformats were performed. FINDINGS: The vertebral bodies demonstrate normal height and alignment. No evidence of acute fracture or subluxation.. No degenerative changes are present. No prevertebral soft tissue swelling is seen. The posterior facets are well aligned. Normal alignment of the skull base with the cervical spine is seen. The lung apices are unremarkable. IMPRESSION: No evidence of acute osseous abnormality of the cervical spine.
--- NOTE | 2024-12-08 22:18 | RAD REPORT ---
EXAMINATION: XR LEFT HUMERUS HISTORY: PAIN TECHNIQUE: Multiple views of the left humerus were obtained. COMPARISON: Left shoulder radiographs 10/14/2024 FINDINGS: No evidence of acute bone or joint abnormality detected. Heterogeneous sclerotic densities at the base of the greater tuberosity, appears stable, may reflect sequelae of prior trauma. Surrounding soft tissues are unremarkable.
--- NOTE | 2024-12-08 22:19 | RAD REPORT ---
EXAMINATION: XR Femur Left CLINICAL INDICATION: Female, 64 years old. PAIN TECHNIQUE: 2 view radiograph of the left femur were obtained. COMPARISON: No prior exam. FINDINGS: No evidence of fracture or dislocation. Normal alignment. Mild degenerative changes of the knee. No other focal bone lesion. Soft tissues are unremarkable. IMPRESSION: No acute osseous abnormalities. Mild knee joint changes.
--- NOTE | 2024-12-08 22:23 | EDPHYS ---
Physician Documentation [facility] Name: Madelaine Leonard Age: 64 yrs Sex: Female : 1960 Arrival Date: 12/08/2024 Time: 19:20 Bed 2 Private MD: ED Physician Darian Catherine HPI: 12/08 21:48 This 64 yrs old Female presents to ER via EMS with complaints of Fall Injury. sb4 21:51 Patient presents via EMS today after fall several hours ago. She states that she has sb4 been feeling weak and dizzy all day today. senior living states that she likely took more than double her dose of her daily Xanax. Patient states that she sustained a mechanical fall, was able to get up on her own, and has been ambulating without any issues since. Is complaining of some minor pain in her left thigh and left arm. Is not complaining of any headache. Historical: - Allergies: 19:29 Levofloxacin; bm8 19:29 Naproxen Sodium; bm8 19:29 PENICILLINS; bm8 - PMHx: 19:29 Anxiety; Sleep Apnea; Seizures; Hypertensive disorder; High Cholesterol; Hernia; GERD; bm8 Fibromyalgia; diabetes mellitus; depressive disorder; Congestive heart failure; Chronic pain; Chronic obstructive lung disease; - PSHx: 19:29 Total abdominal hysterectomy; Repair of inguinal hernia; bm8 - Immunization history:: Adult Immunizations up to date. - Infectious Disease History:: Denies. - Social history:: Smoking status: Patient reports the use of cigarette tobacco products, smokes one-half pack cigarettes per day. ROS: 21:52 Constitutional: Negative for fever, chills, and weight loss, sb4 21:52 MS/extremity: Positive for per HPI, 21:52 All other systems are negative, Exam: 21:52 Constitutional: This is a well developed, well nourished patient who is awake, alert, sb4 and in no acute distress. Head/Face: Normocephalic, atraumatic. Eyes: Extra-ocular motions intact. Periorbital areas with no swelling, redness, or edema. ENT: Mucous membranes moist. Cardiovascular: Regular rate and rhythm with a normal S1 and S2. Respiratory: No increased work of breathing, no retractions or nasal flaring. Abdomen/GI: Soft, non-tender, no distension. MS/ Extremity: Pulses equal, no cyanosis. Neurovascular intact. Full, normal range of motion. Vital Signs: 19:26 BP 102 / 63; Pulse 89; Resp 16; Temp 98.4; Pulse Ox 99% on 4 lpm NC; Weight 99.79 kg; bm8 Pain 4/10; 20:12 BP 116 / 71; Pulse 80; Resp 16; Temp 98.4; Pulse Ox 97% on 4 lpm NC; Pain 5/10; bm8 20:30 BP 99 / 55; Pulse 69; Resp 15; Pulse Ox 97% on 4 lpm NC; al5 21:00 BP 111 / 41; Pulse 90; Resp 16; Pulse Ox 97% on 4 lpm NC; al5 21:30 BP 98 / 60; Pulse 70; Resp 16; Pulse Ox 96% on 4 lpm NC; al5 21:46 BP 100 / 61; Pulse 83; Resp 18; Temp 98.4; Pulse Ox 97% on 4 lpm NC; Pain 0/10; bm8 22:00 BP 112 / 62; Pulse 68; Resp 15; Pulse Ox 96% on 4 lpm NC; al5 22:30 BP 93 / 58; Pulse 69; Resp 17; Pulse Ox 96% on 4 lpm NC; al5 23:21 BP 98 / 59; Pulse 67; Resp 18; Temp 98.4; Pulse Ox 96% on 4 lpm NC; Pain 0/10; bm8 19:26 Pain Scale: Adult bm8 20:12 Pain Scale: Adult bm8 21:46 Pain Scale: Adult bm8 23:21 Pain Scale: Adult bm8 Jean Coma Score: 20:12 Eye Response: spontaneous(4). Motor Response: obeys commands(6). Verbal Response: bm8 oriented(5). Total: 15. 21:46 Eye Response: spontaneous(4). Motor Response: obeys commands(6). Verbal Response: bm8 oriented(5). Total: 15. 22:53 Eye Response: spontaneous(4). Motor Response: obeys commands(6). Verbal Response: bm8 oriented(5). Total: 15. 23:21 Eye Response: spontaneous(4). Motor Response: obeys commands(6). Verbal Response: bm8 oriented(5). Total: 15. MDM: 19:25 Medical Screening Exam initiated sb4 23:03 Data reviewed: vital signs, nurses notes, EMS record, senior care records, lab test sb4 result(s), radiologic studies, and as a result, I will discharge patient. Counseling: I had a detailed discussion with the patient and/or guardian regarding the historical points, exam findings, and any diagnostic results supporting the discharge/admit diagnosis, lab results, radiology results, the need for outpatient follow up, for definitive care, to return to the emergency department if symptoms worsen or persist or if there are any questions or concerns that arise at home. 12/08 19:40 Order name: UDS; Complete Time: 20:37 sb4 12/08 19:40 Order name: UAM; Complete Time: 20:32 sb4 12/08 19:40 Order name: CBC with Diff; Complete Time: 20:36 sb4 12/08 19:40 Order name: BMP; Complete Time: 20:35 sb4 12/08 19:40 Order name: Head C Spine MPR Wo Con CT; Complete Time: 21:44 sb4 12/08 20:42 Order name: Humerus Left XRAY; Complete Time: 22:20 sb4 12/08 20:42 Order name: Femur Left XRAY; Complete Time: 22:20 sb4 12/08 19:40 Order name: IV Start; Complete Time: 20:24 sb4 Administered Medications: 20:49 Drug: Acetaminophen-Codeine PO (300 mg-30 mg) 1 tablet PO once; RASS on ADMIN: Combtv4, bm8 Very Agttd3, Agttd2, Rstlss1, AlertClm0, Drwsy-1, Lt Sdtn-2, Mod Sdtn-3, Dp Sdtn-4, UnArsble-5 Route: PO; 21:47 Follow up: Response: No adverse reaction bm8 Disposition Summary: 12/08/24 22:23 Discharge Ordered Notes: Location: Home sb4 Problem: new sb4 Symptoms: have improved sb4 Condition: Stable sb4 Diagnosis - Fall on same level, unspecified sb4 Followup: sb4 - With: Private Physician - When: 1 week - Reason: Recheck today's complaints, Re-evaluation by your physician Discharge Instructions: - Discharge Summary Sheet sb4 - Fall Prevention in the Home, Adult, [id number] sb4 Forms: - Patient Portal Instructions sb4 - Leadership Thank You Letter sb4 Signatures: Dispatcher [employer] June Loving PA-C PA-C sb4 Ian Wolff, RN RN bm8 Corrections: (The following items were deleted from the chart) 19:40 19:40 URINE DRUG SCREEN+UC.LAB.BRZ ordered. EDMS EDMS 19:40 19:40 Urinalysis W/Microscopic+U.LAB.BRZ ordered. EDMS EDMS 19:40 19:40 CBC+H.LAB.BRZ ordered. EDMS EDMS 19:40 19:40 BASIC METABOLIC PANEL+C.LAB.BRZ ordered. EDMS EDMS 20:43 20:42 Humerus Left+RAD.RAD.BRZ ordered. EDMS EDMS 20:43 20:43 Femur Left+RAD.RAD.BRZ ordered. EDMS EDMS
--- NOTE | 2024-12-08 22:23 | ER ---
Nurse's Notes [facility] Name: Madelaine Leonard Age: 64 yrs Sex: Female : 1960 Arrival Date: 12/08/2024 Time: 19:20 Bed 2 Private MD: Diagnosis: Fall on same level, unspecified Presentation: 12/08 19:26 Chief complaint: EMS states: Pt fell striking side of head this morning at 1100. NO LOC bm8 pt was able to ambulate immediately after and carried on with her day until 1829 when [place] finally called. Pt from [facility]. Coronavirus screen: Vaccine status: Patient reports being unvaccinated. Ebola Screen: Patient negative for fever greater than or equal to 101.5 degrees Fahrenheit, and additional compatible Ebola Virus Disease symptoms Patient denies exposure to infectious person. Patient denies travel to an Ebola-affected area in the 21 days before illness onset. No symptoms or risks identified at this time. Initial Sepsis Screen: Does the patient meet any 2 criteria? No. Patient's initial sepsis screen is negative. Does the patient have a suspected source of infection? No. Patient's initial sepsis screen is negative. Risk Assessment: Do you want to hurt yourself or someone else? Patient reports no desire to harm self or others. Onset of symptoms was December 08, 2024 at 11:00. 19:26 Method Of Arrival: EMS: [facility] bm8 19:26 Acuity: DEV 3 bm8 Triage Assessment: 19:29 General: Appears in no apparent distress. comfortable, Behavior is calm, cooperative, bm8 appropriate for age. Pain: Complains of pain in head Pain currently is 4 out of 10 on a pain scale. Quality of pain is described as aching. EENT: No deficits noted. No signs and/or symptoms were reported regarding the EENT system. Neuro: No deficits noted. Level of Consciousness is awake, alert, obeys commands, Oriented to person, place, time, situation, Appropriate for age. Cardiovascular: Denies chest pain, Heart tones S1 S2 present Capillary refill < 3 seconds in bilateral fingers Patient's skin is warm and dry. Respiratory: Airway is patent Respiratory effort is even, unlabored, Respiratory pattern is regular, symmetrical, Breath sounds are clear bilaterally. GI: No signs and/or symptoms were reported involving the gastrointestinal system. : No signs and/or symptoms were reported regarding the genitourinary system. Derm: No signs and/or symptoms reported regarding the dermatologic system. Musculoskeletal: No signs and/or symptoms reported regarding the musculoskeletal system. Historical: - Allergies: 19:29 Levofloxacin; bm8 19:29 Naproxen Sodium; bm8 19:29 PENICILLINS; bm8 - PMHx: 19:29 Anxiety; Sleep Apnea; Seizures; Hypertensive disorder; High Cholesterol; Hernia; GERD; bm8 Fibromyalgia; diabetes mellitus; depressive disorder; Congestive heart failure; Chronic pain; Chronic obstructive lung disease; - PSHx: 19:29 Total abdominal hysterectomy; Repair of inguinal hernia; bm8 - Immunization history:: Adult Immunizations up to date. - Infectious Disease History:: Denies. - Social history:: Smoking status: Patient reports the use of cigarette tobacco products, smokes one-half pack cigarettes per day. Screenin:12 [facility] ED Fall Risk Assessment (Adult) History of falling in the last 3 months, bm8 including since admission Yes- single mechanical fall (1 pt) Confusion or Disorientation No (0 pts) Intoxicated or Sedated No (0 pts) Impaired Gait No (0 pts) Mobility Assist Device Used No (0 pt) Altered Elimination No (0 pt) Score/Fall Risk Level 0 - 2 = Low Risk Oriented to surroundings, Maintained a safe environment, Educated pt \T\ family on fall prevention, incl call for assistance when getting out of bed, Assessed \T\ reinforced patient's understanding of fall precautions, Hourly rounding (assess needs \T\ fall precautionary measures) done, Used ambulatory aids as needed (educated on \T\ assisted with), Used gait belt as appropriate. Abuse screen: Denies threats or abuse. Nutritional screening: No deficits noted. Tuberculosis screening: No symptoms or risk factors identified. Assessment: 20:12 Reassessment: Patient appears in no apparent distress at this time. Patient and/or bm8 family updated on plan of care and expected duration. Pain level reassessed. Patient is alert, oriented x 3, equal unlabored respirations, skin warm/dry/pink. pt was able to ambulate under own power more than 120 feet to restroom, pt is asking for pain medication for her chronic abd pain. Provider informed. 21:46 Reassessment: Patient appears in no apparent distress at this time. Patient and/or bm8 family updated on plan of care and expected duration. Pain level reassessed. Patient is alert, oriented x 3, equal unlabored respirations, skin warm/dry/pink. Patient denies pain at this time. Patient states feeling better. Patient states symptoms have improved. 22:45 Reassessment: pt awaiting transportation back to [place]. bm8 22:53 Reassessment: Patient appears in no apparent distress at this time. Patient and/or bm8 family updated on plan of care and expected duration. Pain level reassessed. Patient is alert, oriented x 3, equal unlabored respirations, skin warm/dry/pink. pt is resting with eye closed breathing is even unlabored with symmetrical rise and fall of chest on 4l NC. Patient denies pain at this time. Patient states feeling better. Patient states symptoms have improved. report given to ERMELINDA Key \Veronica\ [facility]. Yesi stated that she would call for transport and get back to us with an ETA. 23:21 Reassessment: [facility] ambulance has arrived to take pt home. bm8 Vital Signs: 19:26 BP 102 / 63; Pulse 89; Resp 16; Temp 98.4; Pulse Ox 99% on 4 lpm NC; Weight 99.79 kg; bm8 Pain 4/10; 20:12 BP 116 / 71; Pulse 80; Resp 16; Temp 98.4; Pulse Ox 97% on 4 lpm NC; Pain 5/10; bm8 20:30 BP 99 / 55; Pulse 69; Resp 15; Pulse Ox 97% on 4 lpm NC; al5 21:00 BP 111 / 41; Pulse 90; Resp 16; Pulse Ox 97% on 4 lpm NC; al5 21:30 BP 98 / 60; Pulse 70; Resp 16; Pulse Ox 96% on 4 lpm NC; al5 21:46 BP 100 / 61; Pulse 83; Resp 18; Temp 98.4; Pulse Ox 97% on 4 lpm NC; Pain 0/10; bm8 22:00 BP 112 / 62; Pulse 68; Resp 15; Pulse Ox 96% on 4 lpm NC; al5 22:30 BP 93 / 58; Pulse 69; Resp 17; Pulse Ox 96% on 4 lpm NC; al5 23:21 BP 98 / 59; Pulse 67; Resp 18; Temp 98.4; Pulse Ox 96% on 4 lpm NC; Pain 0/10; bm8 19:26 Pain Scale: Adult bm8 20:12 Pain Scale: Adult bm8 21:46 Pain Scale: Adult bm8 23:21 Pain Scale: Adult bm8 Jean Coma Score: 20:12 Eye Response: spontaneous(4). Motor Response: obeys commands(6). Verbal Response: bm8 oriented(5). Total: 15. 21:46 Eye Response: spontaneous(4). Motor Response: obeys commands(6). Verbal Response: bm8 oriented(5). Total: 15. 22:53 Eye Response: spontaneous(4). Motor Response: obeys commands(6). Verbal Response: bm8 oriented(5). Total: 15. 23:21 Eye Response: spontaneous(4). Motor Response: obeys commands(6). Verbal Response: bm8 oriented(5). Total: 15. ED Course: 19:22 Patient arrived in ED. rv1 19:25 June Freire PA-C is PHCP. sb4 19:25 Darian Catherine MD is Attending Physician. sb4 19:25 Ian Wolff, RN is Primary Nurse. bm8 19:29 Triage completed. bm8 19:29 Arm band placed on right wrist. bm8 20:12 Patient has correct armband on for positive identification. Bed in low position. Call bm8 light in reach. Side rails up X 1. Client placed on continuous cardiac and pulse oximetry monitoring. NIBP monitoring applied. Pulse ox on. NIBP on. Door closed. Noise minimized. Warm blanket given. Pillow given. Verbal reassurance given. Head of bed elevated. 20:12 No provider procedures requiring assistance completed. Initial lab(s) drawn, by ayesha zamora sent to lab. Urine collected: clean catch specimen, clear. Inserted saline lock: 22 gauge in left forearm, using aseptic technique. Blood collected. Flushed with 10 mL NS. Oxygen administration via nasal cannula \T\ 4L/min Response to oxygen therapy: symptoms improved. 20:41 Head C Spine MPR Wo Con CT In Process Unspecified. EDMS 21:34 Humerus Left XRAY In Process Unspecified. EDMS 21:34 Femur Left XRAY In Process Unspecified. EDMS 23:21 Provided Education on: post er care. bm8 23:21 IV discontinued, intact, bleeding controlled, No redness/swelling at site. Pressure bm8 dressing applied. Administered Medications: 20:49 Drug: Acetaminophen-Codeine PO (300 mg-30 mg) 1 tablet PO once; RASS on ADMIN: Combtv4, bm8 Very Agttd3, Agttd2, Rstlss1, AlertClm0, Drwsy-1, Lt Sdtn-2, Mod Sdtn-3, Dp Sdtn-4, UnArsble-5 Route: PO; 21:47 Follow up: Response: No adverse reaction bm8 Medication: 20:12 VIS not applicable for this client. bm8 Outcome: 22:23 Discharge ordered by . kole 23:21 Discharged to retirement. Report called to ERMELINDA Key Transfer form completed. 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 no drinking with medication, no driving heavy equipment, safety practices, Demonstrated understanding of instructions, follow-up care, medications, 23:23 Patient left the ED. bm8 Signatures: Dispatcher [employer] EDMS June Freire, PA-C PA-C sb4 Joyce Diaz rv1 Ian Wolff, RN RN bm8 Karina Stiles RN RN al5
[2024-12-09 23:33] VITALS: TEMP 98.4
[2024-12-09 23:44] VITALS: O2SAT 96
[2024-12-09 23:48] VITALS: BP 98/59
== END 2024-12-08 23:23 | disposition home or self-care (01) ==
LOC: ER 19:20
DX: M79.602 Pain in left arm (principal); M79.652 Pain in left thigh; R53.1 Weakness; R42 Dizziness and giddiness; W18.30XA Fall on same level, unspecified, initial encounter; Y92.129 Unspecified place in nursing home as the place of occurrence of the external cause; F17.210 Nicotine dependence, cigarettes, uncomplicated
CPT/HCPCS: 36415; 70450; 72125; 80048; 80307; 81001; 85025; 99285